=== PATIENT | female | born 1945 | race Caucasian/White ===

== ENCOUNTER 2017-07-17 16:49 | Emergency (ER) | payer MEDICAID, SELFPAY ==
[2017-07-17 16:51] VITALS: BP 166/99; PULSE 111; RESP 26; TEMP 36.4; BMI 30.1
[2017-07-17 16:59] VITALS: BP 108/84; PULSE 104; RESP 23; O2SAT 95
--- NOTE | 2017-07-17 16:59 | EKG12_ITS ---
Test Reason : SOB Blood Pressure : / mmHG Vent. Rate : 103 BPM Atrial Rate : 103 BPM P-R Int : 166 ms QRS Dur : 080 ms QT Int : 350 ms P-R-T Axes : 046 026 062 degrees QTc Int : 458 ms Sinus tachycardia Nonspecific ST abnormality Abnormal ECG Confirmed by JOÃO IVEY, ANGIE ([id number]), managing editor MACKENZIE TORRES ([id number]) on 07/19/2017 1:38:25 PM Referred By: JOVON Confirmed By:ANGIE MOYER MD
[2017-07-17 17:00] VITALS: O2SAT 94
--- NOTE | 2017-07-17 17:01 | ED.VISSUMM ---
- ER Visit Summary Date of Service: 07/17/17 Chief Complaint: it's my CHF History of Present Illness: The patient is a 72 F presenting with 3 days of gradually increased lower extremity edema bilaterally as well as mild cough productive of clear sputum and orthopnea. She wears 2-3 L of continuous nasal cannula oxygen at baseline and smokes 1-2 packs of cigarettes daily. She has a history of COPD and believes that she is having a COPD flare. Denies chest pain or exertional dyspnea. Denies lateralizing lower extremity discomfort. Physical Examination: Vitals are within normal limits. She is not in distress. Neck is supple. Heart tones are regular and without murmur. Lungs are clear bilaterally. Abdomen is soft and nontender. 2+ lower extremity symmetric edema. No tenderness along lower extremity venous system. Strong pulses in all extremities. Test Results: CBC and BMP are unremarkable. Troponin negative. Beta natruretic peptide not elevated. EKG unremarkable. Chest x-ray reveals stable chronic findings. Emergency Department Course and Treatment: No evidence of significant acute CHF exacerbation. She has been coughing clear sputum and states that she is wheezing occasionally at home as well. She is concerned that she is having a COPD exacerbation. She would like to be treated with antibiotics and steroids. I do not feel she needs an adjustment of her cardiac medications at this time but I do think she should follow-up with her tax map technician as an outpatient. She will also follow-up with her family physician and return here if worse. Her pulse ox here is stable at 98% on 2 L which is her baseline oxygen amount. She is not dyspneic with ambulation. Treatment Plan: Steroids and doxycycline. Follow-up. Disposition: Home stable condition Impression: Initial encounter COPD exacerbation This note was generated with [employer] dictation software. It may contain incorrect words, spelling, and punctuation that were not noted in review of the chart prior to signing ED Disposition - Plan for ED Patient: Chief Complaint: Shortness of Breath Instructions: ED COPD Flare Prescriptions: Prednisone [Deltasone] 40 mg PO DAILY #10 tablet Doxycycline 100 mg PO BID 7 Days #14 capsule Referrals: Darleen Craig MD [Primary Care Provider] -
--- NOTE | 2017-07-17 17:20 | RAD_ITS ---
XR Chest 2 Views INDICATION: PT C/O INCREASED SOB AND KAY LEG SWELLING. PT IS NORMALLY ON 2-3L NC. CAME IN WITHOUT OXYGEN ON BECAUSE SHE STATED SHE DOESN'T HAVE A PORTABLE TANK. COMPARISON: December 17, 2016 TECHNIQUE: 2 views of the chest FINDINGS: Borja size and pulmonary vascularity are within normal limits. Lungs are hyperinflated with coarsened interstitial markings compatible with COPD. Interstitial markings at the lung bases are increased, similar compared to the prior study. There is no new focal infiltrate. No evidence of pleural effusion. Osseous structures are osteopenic. RAD/Chest PA and Lateral IMPRESSION: Stable examination with COPD/emphysema. Stable increased interstitial markings at the lung bases, no new infiltrate. at 1742 Reported and signed by: Lori Sullivan MD Electronically Signed: Lori Sullivan MD at 17:40 EDT Tel , Service support ,
[2017-07-17 17:32] LABS: Absolute Lymphocyte Count 1.76 X10^3/ul (0.83-4.51); Absolute Neutrophil Count 7.6 X10^3/uL (2.0-7.7); Basophil# 0.01 X10^3/uL; Basophil% 0.1 % (0-1); Hematocrit 39.4 % (37-47); Hemoglobin 12.5 g/dl (12.0-15.0); Lymphocyte # 1.76 X10^3/ul (4.0); Lymphocyte % 17.3 % (19-41); Mean Corp Hgb Conc 31.7 g/gl (32-36); Mean Corpuscular Hgb 29.4 pg (27.0-32.0); Mean Corpuscular Volume 92.7 fL (81-99); Mean Platelet Vol. 9.9 fl (6.2-12.0); Monocyte# 0.55 X10^3/uL; Monocyte% 5.4 % (0-10); Neutrophil # 7.61 X10^3/uL (2.7-7.7); Neutrophil % 74.9 % (47-70); Platelet Count 249 K/mm3 (150-450); RBC Distribution Width CV 14.2 % (11.6-14.6); RBC Distribution Width SD 47.9 fl (35.1-43.9); Red Blood Count 4.25 M/mm3 (4.2-5.4); White Blood Count 10.2 K/mm3 (4.4-11.0)
[2017-07-17] MEDS: Aspirin 81 MG TAB.CHEW 324 MG PO (17:32)
[2017-07-17 17:33] VITALS: O2SAT 98
[2017-07-17 17:34] LABS: POSITIVE COUNT NO; POSITIVE DIFFERENTIAL NO; POSITIVE MORPHOLOGY NO
[2017-07-17 17:47] LABS: Anion Gap 5 (5-15); BUN 12 mg/dL (7-18); BUN/Creat Ratio 16.4 RATIO (10-20); Calcium,Total 8.3 mg/dL (8.5-10.1); Chloride 105 mmol/L (98-107); Creatinine, Serum 0.73 mg/dL (0.55-1.02); EST Glomerular Filtration Rate 83 mL/min (>60); Est Glom Filt Rate - Afr Amer 101 mL/min (>60); Estimated Creatinine Clearance 40.22 ml/min; Glucose 99 mg/dL (74-106); Potassium 3.9 mmol/L (3.5-5.1); Sodium Level 139 mmol/L (136-145)
[2017-07-17 18:06] LABS: BNP,B-Type NATRIURETIC PEPTIDE 36.9 pg/mL (0-100)
[2017-07-17 18:24] VITALS: BP 141/72; PULSE 96; RESP 18; O2SAT 97
[2017-07-17] MEDS: predniSONE 20 MG Tablet 60 MG PO (18:25)
[2017-07-17] MEDS: Doxycycline 100 MG CAPSULE PO (18:26)
== END 2017-07-17 18:39 | disposition home or self-care (01) ==
LOC: ED 18:33
PROVIDERS: Emergency Provider Emergency Medicine; Family Provider Internal Medicine; PCP Internal Medicine
DX: J44.1 Chronic obstructive pulmonary disease with (acute) exacerbation (principal); F17.210 Nicotine dependence, cigarettes, uncomplicated; Z99.81 Dependence on supplemental oxygen; I25.10 Atherosclerotic heart disease of native coronary artery without angina pectoris; I11.0 Hypertensive heart disease with heart failure; I50.9 Heart failure, unspecified
CPT/HCPCS: 71046; 80048; 83880; 84484; 85025; 93005; 99285; A4216

== ENCOUNTER 2017-11-09 03:14 | Inpatient (IN) | payer MEDICAID, SELFPAY ==
[2017-11-09] VITALS (36 sets, daily range): BP systolic 64–147; BP diastolic 31–88; PULSE 73–109; RESP 14–38; TEMP 35.5–36.7; O2SAT 91–99; BMI 28.8; BMI 27.8; BMI 27.9
--- NOTE | 2017-11-09 03:22 | ED.RN ---
BREATHING TREATMENT IN PROGRESS. BIPAP BEING SET UP
--- NOTE | 2017-11-09 03:35 | EKG12_ITS ---
Test Reason : REPEAT Blood Pressure : / mmHG Vent. Rate : 086 BPM Atrial Rate : 086 BPM P-R Int : 176 ms QRS Dur : 090 ms QT Int : 376 ms P-R-T Axes : 070 -17 078 degrees QTc Int : 449 ms Normal sinus rhythm Anterolateral infarct , age undetermined Abnormal ECG Confirmed by VY JEFFERSON ([id number]), purchasing expeditor MACKENZIE TORRES ([id number]) on 11/12/2017 2:19:27 PM Referred By: Confirmed By:VY JEFFERSON
--- NOTE | 2017-11-09 03:40 | RAD_ITS ---
STUDY: X-RAY CHEST REASON FOR EXAM: Female, 72 years old. SOB and chest pain TECHNIQUE: Single frontal view of the chest. COMPARISON: 07/17/2017 FINDINGS: 2 mm stone in the distal left ureter at the level of the ureterovesical junction with changes of moderate acute obstructive uropathy. There is no demonstrated pleural abnormality. Normal size heart. Normal mediastinum and danielle. Normal visualized pulmonary arteries. Normal visualized aortic arch and descending thoracic aorta. Normal visualized thoracic spine. Normal visualized ribs, clavicles, and shoulders. There is no demonstrated abnormality of the visualized soft tissue structures of the upper abdomen. RAD/Chest 1 View (Portable) IMPRESSION: 2 mm stone in the distal left ureter at the level of the ureterovesical junction with changes of moderate acute obstructive uropathy. Electronically Signed: Gio Garg MD at 4:26 EDT Tel , Service support ,
--- NOTE | 2017-11-09 03:42 | CPS ---
Addendum entered by Ioana Dias 11/09/17 04:06: Original Note: started to give pt albuterol tx thru bipap and pt states allergic to albuterol-tx was not given
[2017-11-09 03:51] LABS: Absolute Lymphocyte Count 4.49 X10^3/ul (0.83-4.51); Absolute Neutrophil Count 12.1 X10^3/uL (2.0-7.7); Basophil# 0.08 X10^3/uL; Basophil% 0.4 % (0-1); Eosinophil# 0.22 X10^3/uL; Eosinophils% 1.2 % (0-5); Hemoglobin 15.9 g/dl (12.0-15.0); Lymphocyte # 4.49 X10^3/ul (4.0); Mean Corp Hgb Conc 33.1 g/gl (32-36); Mean Corpuscular Hgb 30.1 pg (27.0-32.0); Mean Corpuscular Volume 90.9 fL (81-99); Mean Platelet Vol. 10.7 fl (6.2-12.0); Monocyte# 1.02 X10^3/uL; Monocyte% 5.7 % (0-10); Neutrophil # 12.08 X10^3/uL (2.7-7.7); Neutrophil % 67.2 % (47-70); Platelet Count 402 K/mm3 (150-450); RBC Distribution Width CV 14.3 % (11.6-14.6); RBC Distribution Width SD 46.8 fl (35.1-43.9); Red Blood Count 5.28 M/mm3 (4.2-5.4)
[2017-11-09 04:00] LABS: Differential Indicated SCAN CRITERIA MET; POSITIVE COUNT NO; POSITIVE DIFFERENTIAL NO; POSITIVE MORPHOLOGY YES
[2017-11-09 04:03] LABS: Anion Gap 14 (5-15); BUN 22 mg/dL (7-18); BUN/Creat Ratio 16.3 RATIO (10-20); Calcium,Total 8.6 mg/dL (8.5-10.1); Chloride 106 mmol/L (98-107); Creatinine, Serum 1.35 mg/dL (0.55-1.02); EST Glomerular Filtration Rate 41 mL/min (>60); Est Glom Filt Rate - Afr Amer 50 mL/min (>60); Estimated Creatinine Clearance 29.79 ml/min; Glucose 297 mg/dL (74-106); Potassium 4.6 mmol/L (3.5-5.1); Sodium Level 142 mmol/L (136-145)
--- NOTE | 2017-11-09 04:03 | EKG12_ITS ---
Test Reason : CP Blood Pressure : / mmHG Vent. Rate : 094 BPM Atrial Rate : 094 BPM P-R Int : 174 ms QRS Dur : 084 ms QT Int : 356 ms P-R-T Axes : 073 -14 097 degrees QTc Int : 445 ms Normal sinus rhythm Low voltage QRS Possible Anterolateral infarct , age undetermined Abnormal ECG Confirmed by VY JEFFERSON ([id number]), news copy editor MACKENZIE TORRES ([id number]) on 11/12/2017 2:20:15 PM Referred By: DR REDD Confirmed By:VY JEFFERSON
[2017-11-09] MEDS: MethylPREDNISolone 125 MG/2 ML Vial IV (04:16)
[2017-11-09] MEDS: Enoxaparin 80 MG/0.8 ML Syringe 70 MG SC ×3 (04:17→21:06)
[2017-11-09] MEDS: Furosemide 40 MG/4 ML Vial IV ×3 (04:17→18:40)
[2017-11-09 04:19] LABS: Differential Comment SCANNED
--- NOTE | 2017-11-09 04:21 | ED.RN ---
dr velazquez notified of troponin results
--- NOTE | 2017-11-09 04:28 | ED.VISSUMM ---
- ER Visit Summary Date of Service: 11/09/17 Chief Complaint: Shortness of breath, chest pain History of Present Illness: The patient is a 72 F presenting with shortness of breath, chest pain. Patient states she awoke from sleep with severe shortness of breath and diffuse chest pain. She took 2 nitro. EMS was called. She was put on nonrebreather mask per EMS and given aspirin. EKG per EMS showed artifact and concern for anterolateral changes. Patient had an NH in December 2016. She states her pain feels similar. On arrival she has difficulty speaking secondary to respiratory distress. Physical Examination: Vitals are stable. Patient is afebrile. Alert moderate distress. HEENT exam is unremarkable. Neck is supple. Lungs are wheezing bilaterally. Tachypnea, retractions. Heart is regular rate and rhythm. Abdomen is soft nontender nondistended. Extremities are unremarkable. Skin is warm and dry. No focal neurologic deficit. Remainder of exam is unremarkable. Emergency Department Course and Treatment: Patient is given DuoNeb on arrival. She is started on noninvasive ventilation. She has much improvement of her breathing. She states her chest pain is now much improved also. Initial EKG shows sinus rhythm rate of 94 changed from previous, poor R-wave progression, lateral T-wave inversion, minimal ST elevation, no reciprocal changes. CBC showed a white count of 18.0. Chemistry showed glucose 297, BUN 22, creatinine 1.35. Troponin is 1.35. Chest x-ray shows chronic interstitial lung changes without superimposed acute alveolar disease. Patient was discussed with Dr. Burns. EKG was faxed to Dr. Burns. She was started on nitro drip, given Lovenox, Solu-Medrol IV, Lasix IV. She is improved on re-evaluation. Her breathing has improved. Her chest pain is resolved. Discussed with the hospitalist for admission to the ICU. Disposition: Admission Impression: Respiratory distress, COPD exacerbation, recent NH This note was generated with [employer] dictation software. It may contain incorrect words, spelling, and punctuation that were not noted in review of the chart prior to signing ED Disposition - Plan for ED Patient: Chief Complaint: Chest Pain Referrals: Darleen Craig MD [Primary Care Provider] -
--- NOTE | 2017-11-09 05:13 | PCM.HP.STD ---
Problem List (1) NSTEMI (non-ST elevated myocardial infarction) Status: Acute (2) COPD exacerbation Status: Acute (3) CAD (coronary artery disease) Status: Acute (4) Tobacco abuse Status: Acute (5) Nonrheumatic tricuspid (valve) insufficiency Status: Chronic (6) Nonrheumatic mitral valve insufficiency Status: Chronic (7) Hypertension Status: Chronic Qualifiers: (8) Hyperlipidemia Status: Chronic Qualifiers: (9) Peripheral vascular disease Status: Chronic (10) SOB (shortness of breath) Status: Chronic History of Present Illness Date of Admission: 11/09/17 Chief Complaint: Chest pain The patient is a 72 year old female w/ h/o CAD s/p left main stenting in 2014, hypertension, and hyperlipidemia admitted for chest pain. She had a heart catheterization in Dec 2016 which showed diffuse disease in her LAD and RCA but with no obvious obstructive high-grade coronary stenosis and a patent left main stent and an echocardiogram from December 2016 showed an ejection fraction 55%, mild mitral valve insufficiency, and mild to moderate tricuspid valve insufficiency. She woke up at 2AM with chest pain and SOB. Chest pain was severe. Chest pain was sudden. Pain was pressure and crushing, substernal. She took 2 nitro and wanted to get into the car. The pain was so severe that she was unable to get into the car. EMS was called. Nothing made the pain better or worse. She had similar pain in December 2016 when she had the heart cath. EKG on the field disclosed anterolateral changes. Her pain improved with nitro. Past Medical History Past Medical History (Chronic Problems): Chronic Problems (Last Reviewed 11/09/17 @ 05:19 by Lokesh Sethi MD) Nonrheumatic tricuspid (valve) insufficiency (Chronic) Nonrheumatic mitral valve insufficiency (Chronic) Nicotine dependence, cigarettes, uncomplicated (Chronic) Hypertension (Chronic) Hyperlipidemia (Chronic) Atherosclerosis of [place] coronary artery of [place] heart without angina pectoris (Chronic) PTCA/SUSAN to ostium of LMT 10/01/2014 @[facility]; Peripheral vascular disease (Chronic) SOB (shortness of breath) (Chronic) Medical History: Medical History (Last Reviewed 11/09/17 @ 05:19 by Lokesh Sethi MD) Nonrheumatic tricuspid (valve) insufficiency (Chronic) I36.1 Nonrheumatic mitral valve insufficiency (Chronic) I34.0 Nicotine dependence, cigarettes, uncomplicated (Chronic) F17.210 Hypertension (Chronic) I10 Hyperlipidemia (Chronic) E78.5 Atherosclerosis of [place] coronary artery of [place] heart without angina pectoris (Chronic) I25.10 PTCA/SUSAN to ostium of LMT 10/01/2014 @[facility]; Peripheral vascular disease (Chronic) I73.9 SOB (shortness of breath) (Chronic) R06.02 Anemia D64.9 COPD (chronic obstructive pulmonary disease) J44.9 Diabetes mellitus E11.9 Fibromyalgia M79.7 GERD (gastroesophageal reflux disease) K21.9 Hyperlipidemia E78.5 MARISABEL (obstructive sleep apnea) G47.33 Allergies codeine Allergy (Unknown, Verified 11/09/17 03:33) Unknown fentanyl Allergy (Unknown, Verified 11/09/17 03:33) Unknown lithium Allergy (Unknown, Verified 11/09/17 03:33) Unknown morphine Allergy (Unknown, Verified 11/09/17 03:33) Unknown naproxen [From Naprosyn] Allergy (Unknown, Verified 11/09/17 03:33) Unknown phenobarbital Allergy (Unknown, Verified 11/09/17 03:33) Unknown Sulfa (Sulfonamide Antibiotics) Allergy (Unknown, Verified 11/09/17 03:33) Unknown albuterol Allergy (Verified 11/09/17 03:33) Rash Iodine and Iodide Containing Produc Adverse Reaction (Verified 11/09/17 03:33) Unknown Penicillins [PCN] Adverse Reaction (Verified 11/09/17 03:33) Unknown Home Medications: Ambulatory Orders Medication Instructions Recorded Amlodipine [Norvasc] 5 mg PO DAILY 07/13/14 Aspirin 325 mg PO DAILY@0800 07/13/14 Atorvastatin Calcium [Lipitor] 40 mg PO QHS 07/13/14 Bupropion HCl [Bupropion Xl] 150 mg PO DAILY 07/13/14 Buspirone HCl 15 mg PO DAILY 07/13/14 Cyclobenzaprine [Flexeril] 10 mg PO DAILY 07/13/14 Fenofibrate [Tricor] 145 mg PO DAILY 07/13/14 Gabapentin [Neurontin] 300 mg PO BIDCM 07/13/14 Ipratropium/Albuterol Sulfate 2 puff INHALATION 4X/DAY 07/13/14 Omeprazole [Prilosec] 20 mg PO DAILY 07/13/14 Tiotropium [place] [Spiriva 18 MCG] 1 puff INHALATION DAILY 07/13/14 Vitamin D 50,000 units PO WE 07/13/14 Fluticasone/Vilanterol [Breo 1 ea IH DAILY 12/17/16 Ellipta 200-25 Mcg INH] Ipratropium [Atrovent Inhaler] 2 puff INHALATION 4X/DAY 12/17/16 Paroxetine HCl [Paxil] 40 mg PO DAILY 12/17/16 diphenhydramine 25 mg tablet 25 mg PO Q6H PRN 03/20/17 nitroglycerin 0.4 mg sublingual 0.4 mg SUBLINGUAL Q5M PRN #25 tab 03/25/17 tablet ranolazine ER 500 mg 500 mg PO BID #180 tab 03/25/17 tablet,extended release,12 hr isosorbide mononitrate ER 120 mg 120 mg PO QDAY #90 tab 10/17/17 tablet,extended release 24 hr losartan 50 mg tablet 50 mg PO DAILY #90 tab 10/17/17 metoprolol tartrate 25 mg tablet 25 mg PO BID #180 tab 10/17/17 clopidogrel 75 mg tablet 75 mg PO DAILY #90 tab 10/23/17 Surgical History: Surgical History (Last Reviewed 11/09/17 @ 05:19 by Lokesh Sethi MD) H/O tubal ligation Z98.51 History of left heart catheterization Z98.890 Hx of appendectomy Z98.890, Z90.49 S/P femoral-femoral bypass surgery Z95.828 with gorortex graft in 2001; removal of infected graft with reconstructions of right superficial artery in 2002 Surgical History: appendectomy, - - cad with stent Psychiatric History: No pertinent psych hx [employer] History: No pertinent [employer] history Smoking Status: Current every day smoker - *Family History Maternal Family History: Family History (Last Reviewed 11/09/17 @ 05:19 by Lokesh Sethi MD) Mother CAD (coronary artery disease) Hypertension Sister CAD (coronary artery disease) Myocardial infarction History Items: Diabetes, Heart Disease, Stroke Paternal Family History: Family History (Last Reviewed 11/09/17 @ 05:19 by Lokesh Sethi MD) Mother CAD (coronary artery disease) Hypertension Sister CAD (coronary artery disease) Myocardial infarction History Items: Diabetes, Stroke Review of Systems Constitutional: Denies: Chills, Fever, Weight Change HEENT: Denies: Head Aches, Sinus Congestion, Sinus Drainage Cardiovascular: Reports: Chest Pain, Chest Pressure. Denies: Palpitations Respiratory: Denies: Cough, Shortness of breath at rest, Sputum production Gastrointestinal: Denies: Abdominal Pain, Nausea, Vomiting Genitourinary: Denies: Dysuria Musculoskeletal: Denies: Joint Pain, Joint Tenderness Skin: Denies: Rash, Wounds Neurological: Denies: Numbness, Tingling, Focal weakness Psychiatric: Denies: Anxiety, Depression, Homicidal Ideations, Suicidal Ideations Hematologic/ Lymphatic: Denies: Easy Bruising, Easy Bleeding VTE Information - Inpt Only VTE Present on Admission: No VTE Mechan Device Prophylaxis: SCD's VTE Pharm Prophylaxis ordered?: Yes Patient Problems: Active and Suspected Problems (Last Reviewed 11/09/17 @ 05:19 by Lokesh Sethi MD) NSTEMI (non-ST elevated myocardial infarction) (Acute) COPD exacerbation (Acute) CAD (coronary artery disease) (Acute) Tobacco abuse (Acute) - Physical Exam General: Alert, Oriented x3, Cooperative HEENT: Atraumatic, PERRLA, EOMI, Normocephalic Neck: Supple, No JVD, Negative Carotid Bruits Lungs: Clear to auscultation, Normal air movement Cardiovascular: Regular rate, No murmurs Abdomen: Bowel Sounds Present, Soft, Non Tender Extremities: No edema, Capillary Refill Less than 3 Seconds Skin: No rashes, No breakdown Musculoskeletal: No Tenderness to Palpation of Joints or Extremities Neurological: Cranial nerves II-XII grossly intact Psych/Mental Status: Normal Affect, Appropriate Vital Signs Temp Pulse Resp BP Pulse Ox 96.3 F L 81 32 H 100/62 98 11/09/17 03:15 11/09/17 04:41 11/09/17 04:41 11/09/17 04:41 11/09/17 04:41 Oxygen Flow Rate (L/min) 15 Oxygen Delivery Method Bi-pap Weight: 71.4 kg Body Mass Index (BMI) 28.8 Laboratory Tests Past 24 Hrs 11/09/17 11/09/17 03:23 03:23 WBC 18.0 H RBC 5.28 Hgb 15.9 H Hct 48.0 H MCV 90.9 MCH 30.1 MCHC 33.1 RDW 14.3 RDW Differential 46.8 H Plt Count 402 MPV 10.7 Immature Gran % (Auto) 0.500 Neut % (Auto) 67.2 Lymph % (Auto) 25.0 [place] % (Auto) 5.7 Eos % (Auto) 1.2 Baso % (Auto) 0.4 Absolute Neuts (auto) 12.1 H Absolute Lymphs (auto) 4.49 Total Counted Not Reportable Differential Comment SCANNED Sodium 142 Potassium 4.6 Chloride 106 Carbon Dioxide 22.0 Anion Gap 14 BUN 22 H Creatinine 1.35 H Estim Creat Clear Calc 29.79 Est GFR (MDRD) Af Amer 50 L Est GFR (MDRD) Non-Af 41 L BUN/Creatinine Ratio 16.3 Glucose 297 H Calcium 8.6 Troponin I 1.350 H* Assessment/Plan All Active Problems (Last Reviewed 11/09/17 @ 05:19 by Lokesh Sethi MD) NSTEMI (non-ST elevated myocardial infarction) (Acute) COPD exacerbation (Acute) CAD (coronary artery disease) (Acute) Tobacco abuse (Acute) 72 year old female w/ h/o CAD s/p left main stenting in 2014, hypertension, and hyperlipidemia admitted for chest pain. 1) NSTEMI: EKG disclosed lateral T-wave inversion, minimal ST elevation in the lateral lead but no reciprocal changes. Trop 1.35 Chest pain improved. Cards carded from the ED and recommended nitro gtt and lovenox. Pt has allergy to morphine. Will resume home meds. Pt is max on medical management. Serial trops. ECHO in AM. 2) ALIVIA with superimposed CKD: Baseline Cr 0.7 Cr 1.3. Hydration. Supportive care. 3) Acute hypoxic respiratory failure secondary to COPD exacerbation: C/w bipap. Will start solumedrol and azithromycin. Allergy to duoneb and ceftriaxone. Cultures pending. 4) Tobacco abuse: Education done. 5) Prophylaxis: SCD / lovenox.
[2017-11-09 07:04] LABS: ALB/GLOB Ratio 0.8 RATIO (0.9-2.4); AST(SGOT) 21 U/L (15-37); Alanine Aminotransfer ALT/SGPT 21 U/L (13-56); Albumin, Serum 3.5 g/dL (3.2-5.0); Alkaline Phosphatase 96 U/L (45-117); Anion Gap 11 (5-15); BUN 23 mg/dL (7-18); BUN/Creat Ratio 18.1 RATIO (10-20); Bilirubin, Direct < 0.05 mg/dL (0.00-0.30); Calcium,Total 8.5 mg/dL (8.5-10.1); Chloride 108 mmol/L (98-107); Cholesterol 259 mg/dL (200); Creatinine, Serum 1.27 mg/dL (0.55-1.02); EST Glomerular Filtration Rate 44 mL/min (>60); Est Glom Filt Rate - Afr Amer 53 mL/min (>60); Estimated Creatinine Clearance 31.67 ml/min; Globulin 4.5 g/dL (2.2-4.2); Glucose 103 mg/dL (74-106); High Density Lipoprotein 39 mg/dL; Potassium 3.9 mmol/L (3.5-5.1); Sodium Level 141 mmol/L (136-145); Thyroid Stim Hormone (TSH) 4.84 uIU/mL (0.358-3.74); Triglycerides 219 mg/dL; Very Low Density Lipoprotein 44 mg/dL (5-40)
--- NOTE | 2017-11-09 07:45 | PCM.HOSP.N ---
Hospitalist Note 72 year old female w/ h/o CAD s/p left main stenting in 2015, hypertension, and hyperlipidemia admitted for chest pain. Seen ad examined with Dr. Burns 1) NSTEMI: EKG disclosed lateral T-wave inversion, minimal ST elevation in the lateral lead but no reciprocal changes. Trop 1.35 Chest pain improved. Card consulted and recommended nitro gtt and lovenox. Pt has allergy to morphine. Optimized on medical management. trips eevated in NSTEMI range ECHO done 2) ALIVIA with superimposed CKD: Baseline Cr 0.7 Cr 1.3. on IV fluid 3) Acute hypoxic respiratory failure secondary to COPD exacerbation: C/w bipap. ABG reviewed. First was venous 7.31, mixed PCO2 52 ON [place] 40% fio2, 8/4 and then 7.34, PCO2 35, PO2 83 ON 4 L O2, NC after 4 hrs. It seems pt is mild CO2 retainer and Co2 washed out after Bipap. Allergy to duoneb and ceftriaxone. Cultures pending. 4) Tobacco abuse: Education done. 5) Prophylaxis: SCD / lovenox. Laboratory Results 11/09/17 03:23: WBC 18.0 H, RBC 5.28, Hgb 15.9 H, Hct 48.0 H, MCV 90.9, MCH 30.1, MCHC 33.1, RDW 14.3, RDW Differential 46.8 H, Plt Count 402, MPV 10.7, Immature Gran % (Auto) 0.500, Neut % (Auto) 67.2, Lymph % (Auto) 25.0, [place] % (Auto) 5.7, Eos % (Auto) 1.2, Baso % (Auto) 0.4, Absolute Neuts (auto) 12.1 H, Absolute Lymphs (auto) 4.49, Total Counted Not Reportable, Differential Comment SCANNED 11/09/17 03:23: Sodium 142, Potassium 4.6, Chloride 106, Carbon Dioxide 22.0, Anion Gap 14, BUN 22 H, Creatinine 1.35 H, Estim Creat Clear Calc 29.79, Est GFR (MDRD) Af Amer 50 L, Est GFR (MDRD) Non-Af 41 L, BUN/Creatinine Ratio 16.3, Glucose 297 H, Calcium 8.6, Troponin I 1.350 H* 11/09/17 06:26: B-Natriuretic Peptide Pending 11/09/17 06:26: Sodium 141, Potassium 3.9, Chloride 108 H, Carbon Dioxide 22.0, Anion Gap 11, BUN 23 H, Creatinine 1.27 H, Estim Creat Clear Calc 31.67, Est GFR (MDRD) Af Amer 53 L, Est GFR (MDRD) Non-Af 44 L, BUN/Creatinine Ratio 18.1, Glucose 103, Calcium 8.5, Total Bilirubin 0.20, Direct Bilirubin < 0.05, AST 21, ALT 21, Alkaline Phosphatase 96, Total Protein 8.0, Albumin 3.5, Globulin 4.5 H, Albumin/Globulin Ratio 0.8 L, Triglycerides 219 H, Cholesterol 259 H, LDL Cholesterol 176 H, VLDL Cholesterol 44 H, HDL Cholesterol 39 L, TSH 4.84 H 11/09/17 06:26: Troponin I 0.902 H* Active Medications Albuterol/Ipratropium (Duoneb) 3 ml INHALATION Q6HWA.RT NAIF Amlodipine Besylate (Norvasc) 5 mg PO DAILY NAIF Aspirin (Aspirin) 325 mg PO DAILY@0800 NAIF Atorvastatin Calcium (Lipitor) 40 mg PO QHS NAIF Bupropion HCl (Wellbutrin Xl) 150 mg PO DAILY NAIF Buspirone HCl (Buspar) 15 mg PO DAILY NAIF Clopidogrel Bisulfate (Plavix) 75 mg PO DAILY NAIF Cyclobenzaprine HCl (Flexeril) 10 mg PO DAILY NAIF Diphenhydramine HCl (Benadryl) 25 mg PO Q6H PRN PRN PRN Reason: ITCHING Enoxaparin Sodium (Lovenox) 70 mg 1 mg/kg (70 mg) SC Q12 NAIF Ergocalciferol (Vitamin D) 50,000 unit PO WE NAIF Fenofibrate (Tricor) 145 mg PO DAILY NAIF Gabapentin (Neurontin) 300 mg PO BIDCM NAIF Nitroglycerin/Dextrose 25 mg/ (N/A) 250 mls @ 3 mls/hr IV .[id number] NAIF PRN Reason: 5 MCG/MIN Last Admin: 11/09/17 04:17 Dose: 3 mls/hr Sodium Chloride () 250 mls @ 15 mls/hr IV .[id number] PRN PRN Reason: SALINE FLUSH Nitroglycerin/Dextrose () 250 mls @ 3 mls/hr IV .[id number] NAIF; 5 MCG/MIN PRN Reason: Protocol Azithromycin 500 mg/ Dextrose 255 mls @ 250 mls/hr IV Q24 NAIF Stop: 11/11/17 11:02 Isosorbide Mononitrate (Imdur) 120 mg PO DAILY [facility] Losartan Potassium (Cozaar) 50 mg PO DAILY [facility] Methylprednisolone (Solu-Medrol) 40 mg IV Q8 NAIF Stop: 11/10/17 14:01 Metoprolol Tartrate (Lopressor (Beta Tata)) 25 mg PO BID [facility] Nitroglycerin (Nitrostat) 0.4 mg SUBLINGUAL Q5M PRN PRN Reason: Chest Pain Pantoprazole Sodium (Protonix) 20 mg PO DAILY [facility] Paroxetine HCl (Paxil) 40 mg PO DAILY [facility] Prednisone () 20 mg PO DAILY@0800 [facility] Ranolazine (Ranexa) 500 mg PO BID [facility] Sodium Chloride () 5 - 30 ml IV UD PRN PRN Reason: SALINE FLUSH
[2017-11-09 07:56] LABS: Blood Gas Specimen Type VEN; EPAP 4; FI02 40; IPAP 8; RR 14; SITE L Brachial; Time Given 740; VBG BASE EXCESS 0 mmol/L (-1.0-3.5); VBG Bicarbonate 26 mmol/L (22-26); VBG Oxygen Content 28 mmol/L (23-33); VBG PO2 30 mmHg (25-40); VBG SO2 51 % (50-70); VBG pCO2 52.2 mmHg (41-51); VBG pH 7.31 (7.32-7.42)
[2017-11-09 08:18] LABS: BNP,B-Type NATRIURETIC PEPTIDE 526.4 pg/mL (0-100)
--- NOTE | 2017-11-09 09:04 | PCM.CONS.C ---
Problem List (1) Congestive heart failure Status: Acute (2) NSTEMI (non-ST elevated myocardial infarction) Status: Acute (3) CAD (coronary artery disease) Status: Acute (4) Tobacco abuse Status: Acute (5) Hypertension Status: Chronic Qualifiers: (6) Hyperlipidemia Status: Chronic Qualifiers: (7) Atherosclerosis of [place] coronary artery of [place] heart without angina pectoris Status: Chronic Comment: PTCA/SUSAN to ostium of LMT 10/01/2014 @[facility]; Reason for Consult Date of Consultation: 11/09/17 Reason for Consultation: Chest pain, shortness of breath, non-STEMI, coronary artery disease, LV dysfunction, tobacco abuse, hypertension, hypercholesterolemia History of Present Illness: The patient is a 72 year old diabetic f patient of Dr. Rodrigues's, with a history of tobacco abuse, currently smoking in between her O2 therapy, chronic O2 therapy for COPD on 2 L nasal cannula at home, coronary artery disease status post angioplasty and stenting of the ostial portion of her left main around July 2014, followed by relook catheterization by Dr. Huggins on 12/18/16. This demonstrated widely patent left main stent, nonobstructive disease of her LAD, proximal left circumflex disease of 50%, ostial OM #1 of about 75%, and diffuse 60% disease in her proximal mid and distal right coronary artery. Her EF at that time was found to be normal. Patient last seen Dr. Rodrigues about 5 months ago and apparently was doing fairly well. Patient has been moving out of her home into another location, and was quite active yesterday. At around 4:00 this morning the patient awoke with severe worsening shortness of breath, wheezing, chest pain which she describes a 4 out of 10. EMS was called to her home, and multiple EKGs showed significant artifact, with difficult interpretation. Upon arrival to the emergency room an EKG after nebulizer therapy showed normal sinus rhythm with loss of R-wave forces of the anterior wall with evidence of anterolateral J-point elevation and ST segment rounding. Her chest pain was treated with nitroglycerin and completely resolved. Patient was placed on BiPAP therapy given IV diuretic therapy and nitroglycerin and stabilized. Her initial troponin was 1.35, now 0.92. Previous EKG in July 2017 showed normal sinus rhythm with excellent R-wave progression. Urgent bedside echo this morning shows akinetic anterior wall consistent with previous anterior wall myocardial infarction, which appears to be new from her catheterization in 2017. At that time her EF was normal. Overall ejection fraction is about 10-15%. Final results are pending. Currently the patient is on BiPAP therapy, and is awake, alert, answers questions appropriately. Her saturations are appropriate. I reviewed her chest x-ray which demonstrates chronic interstitial changes, significant COPD with bilateral apical blebs, and evidence of pulmonary vascular redistribution consistent with congestive heart failure. Patient denies any chest pain at this time. On further history the patient states that she has not been able to lay down flat due to shortness of breath for quite some time. She denies any recent chest pain or anginal symptoms over the summertime. She reports she has been compliant with her medications and continues on aspirin and Plavix. Past Medical History Allergies/Adverse Reactions: Allergies codeine Allergy (Unknown, Verified 11/09/17 03:33) Unknown fentanyl Allergy (Unknown, Verified 11/09/17 03:33) Unknown lithium Allergy (Unknown, Verified 11/09/17 03:33) Unknown morphine Allergy (Unknown, Verified 11/09/17 03:33) Unknown naproxen [From Naprosyn] Allergy (Unknown, Verified 11/09/17 03:33) Unknown phenobarbital Allergy (Unknown, Verified 11/09/17 03:33) Unknown Sulfa (Sulfonamide Antibiotics) Allergy (Unknown, Verified 11/09/17 03:33) Unknown albuterol Allergy (Verified 11/09/17 03:33) Rash Iodine and Iodide Containing Produc Adverse Reaction (Verified 11/09/17 03:33) Unknown Penicillins [PCN] Adverse Reaction (Verified 11/09/17 03:33) Unknown Home Medications: Ambulatory Orders Medication Instructions Recorded Amlodipine [Norvasc] 5 mg PO DAILY 07/13/14 Aspirin 325 mg PO DAILY@0800 07/13/14 Atorvastatin Calcium [Lipitor] 40 mg PO QHS 07/13/14 Bupropion HCl [Bupropion Xl] 150 mg PO DAILY 07/13/14 Buspirone HCl 15 mg PO DAILY 07/13/14 Cyclobenzaprine [Flexeril] 10 mg PO DAILY 07/13/14 Fenofibrate [Tricor] 145 mg PO DAILY 07/13/14 Gabapentin [Neurontin] 300 mg PO BIDCM 07/13/14 Ipratropium/Albuterol Sulfate 2 puff INHALATION 4X/DAY 07/13/14 Omeprazole [Prilosec] 20 mg PO DAILY 07/13/14 Tiotropium [place] [Spiriva 18 MCG] 1 puff INHALATION DAILY 07/13/14 Vitamin D 50,000 units PO WE 07/13/14 Fluticasone/Vilanterol [Breo 1 ea IH DAILY 12/17/16 Ellipta 200-25 Mcg INH] Ipratropium [Atrovent Inhaler] 2 puff INHALATION 4X/DAY 12/17/16 Paroxetine HCl [Paxil] 40 mg PO DAILY 12/17/16 diphenhydramine 25 mg tablet 25 mg PO Q6H PRN 03/20/17 nitroglycerin 0.4 mg sublingual 0.4 mg SUBLINGUAL Q5M PRN #25 tab 03/25/17 tablet ranolazine ER 500 mg 500 mg PO BID #180 tab 03/25/17 tablet,extended release,12 hr isosorbide mononitrate ER 120 mg 120 mg PO QDAY #90 tab 10/17/17 tablet,extended release 24 hr losartan 50 mg tablet 50 mg PO DAILY #90 tab 10/17/17 metoprolol tartrate 25 mg tablet 25 mg PO BID #180 tab 10/17/17 clopidogrel 75 mg tablet 75 mg PO DAILY #90 tab 10/23/17 Past Medical History (Chronic Problems): Chronic Problems (Last Reviewed 11/09/17 @ 05:19 by Lokesh Sethi MD) Nonrheumatic tricuspid (valve) insufficiency (Chronic) Nonrheumatic mitral valve insufficiency (Chronic) Nicotine dependence, cigarettes, uncomplicated (Chronic) Hypertension (Chronic) Hyperlipidemia (Chronic) Atherosclerosis of [place] coronary artery of [place] heart without angina pectoris (Chronic) PTCA/SUSAN to ostium of LMT 10/01/2014 @[facility]; Peripheral vascular disease (Chronic) SOB (shortness of breath) (Chronic) Surgical History: appendectomy, - - cad with stent Psychiatric History: No pertinent psych hx 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 - *Family History Maternal Family History: Family History (Last Reviewed 11/09/17 @ 05:19 by Lokesh Sethi MD) Mother CAD (coronary artery disease) Hypertension Sister CAD (coronary artery disease) Myocardial infarction History Items: Diabetes, Heart Disease, Stroke Paternal Family History: Family History (Last Reviewed 11/09/17 @ 05:19 by Lokesh Sethi MD) Mother CAD (coronary artery disease) Hypertension Sister CAD (coronary artery disease) Myocardial infarction History Items: Diabetes, Stroke Smoking Status: Current every day smoker Review of Systems - Review of Systems General: Denies: Fever, Night Sweats, Fatigue Cardiovascular: Reports: Chest Discomfort, Chest Discomfort at Rest, Shortness of Breath, Shortness of Breath at Rest, Orthopnea, PND. Denies: Peripheral Edema, Palpitations, Lightheadedness, Dizziness, Near Syncope, Syncope Respiratory: Denies: Cough, Sputum Production, Hemoptysis Gastrointestinal: Denies: Hematemesis, Hematochezia, Melena Genitourinary: Denies: Dysuria, Hematuria Skin: Denies: Rash Subjectve: Patient on BiPAP therapy, appropriate respiratory rate. Good O2 sats. No chest pain. Objective: Vital Signs Temp Pulse Resp BP Pulse Ox 96 F L 77 27 H 104/75 97 11/09/17 05:45 11/09/17 07:56 11/09/17 07:56 11/09/17 07:56 11/09/17 07:56 Oxygen Delivery Method Bi-pap Weight: 152 lb 5.431 oz Body Mass Index (BMI) 27.8 Intake and Output for Last 24 Hours 11/07/17 11/08/17 11/09/17 23:59 23:59 23:59 Intake Total 3.8 / 3.8 Balance 3.8 / 3.8 General: Awake, Alert, Oriented x 3 HEENT: PERRL, EOMI, Sclera Non Icteric Neck: Supple, Good ROM, No Lymph Node Enlargement Lungs: Rales - Jaspreet Bases, Inspiratory Wheezes - Jaspreet Cardiovascular: Regular Rhythm, Normal S1, Normal S2, No Murmurs, No Rubs, No Gallops Vascular: No Carotid Bruits, Normal Femoral Pulses, Normal Radial Pulses, Normal Dorsalis Pedal Pulse, Normal Posterior Tibial Pulses Abdomen: Bowel Sounds Present, Soft, Non Tender, No HSM, No Organomegaly Extremities: No Cyanosis, No Clubbing, No edema Neurological: No Focal Motor or Sensory Deficit 11/09/17 06:26: B-Natriuretic Peptide 526.4 H 11/09/17 06:26: Sodium 141, Potassium 3.9, Chloride 108 H, Carbon Dioxide 22.0, Anion Gap 11, BUN 23 H, Creatinine 1.27 H, Est GFR (MDRD) Af Amer 53 L, Est GFR (MDRD) Non-Af 44 L, BUN/Creatinine Ratio 18.1, Glucose 103, Calcium 8.5, Total Bilirubin 0.20, Direct Bilirubin < 0.05, Triglycerides 219 H, Cholesterol 259 H, LDL Cholesterol 176 H, VLDL Cholesterol 44 H, HDL Cholesterol 39 L 11/09/17 06:26: Troponin I 0.902 H* 11/09/17 07:48: VBG pH 7.31 L, VBG pO2 30, VBG O2 Sat (Calc) 51, VBG O2 Content 28, VBG Base Excess 0 Rhythm: EKG: ECHO: Stress Test: Cardiac Cath: PCI: CT Surgery: Holter monitor: EPS: PPM: CXR: Chest CT Scan: Assessment/Plan #1. Coronary artery disease: The patient presents with what appears to be new onset congestive heart failure with akinetic anterior wall by echocardiogram superimposed upon an EKG which shows loss of R-wave forces and anterolateral J-point elevation, shortness of breath, orthopnea, PND, and abnormal troponin. I reviewed the patient's catheterization films from her more recent cath in July 2016 where her left main stent was patent. She also had complex coronary disease of her proximal left circumflex and ostial obtuse marginal #1 as well as diffuse possibly significant mid and distal RCA stenosis as well. Her ejection fraction at that time was found to be normal. At this point it appears the patient has had an anterior wall myocardial infarction since her EKG in July 2017 at which time her R-wave forces were normal. Final echocardiogram readings are pending. Would recommend reduction of her metoprolol until her heart failure has been normalized. Would recommend starting her on Lasix 40 mg IV daily and attempt to decompress her pulmonary edema allowing her to lay flat for a repeat catheterization. This will also assist with removing her from her BiPAP therapy. Her troponins are trending downwards, suggesting she has ischemia from her stress of her event. Her EKG suggests possible aneurysm of the anterior wall with her ST segment changes as well. Recommend continuing baby aspirin, Plavix, and afterload reducing agents such as Cozaar. Once the patient is able to lay down flat would recommend that she undergo a repeat catheterization. Multivessel bypass surgery may be somewhat problematic given her COPD and chronic O2 therapy. At most percutaneous intervention may be her only option, and albeit on a staged basis versus medical therapy only. 2. COPD: The patient has evidence on her chest x-ray of chronic bilateral interstitial disease as well as apical blebbing. She has flattening of her diaphragms suggesting her COPD is significant and she is on chronic O2 therapy. I am not certain the patient has a heel seam rubber but consultation with pulmonology may be indicated to assist with getting her off of BiPAP. 3. Hyperlipidemia: The patient is on a combination of gemfibrozil and Lipitor. Continue present management. 4. Discussed with Dr. Villegas. Thank you very much for the opportunity to participate in the cardiac care of your patient. Consultation time took place between 8 AM and 8:30 AM. Code Visit Inpatient E&M: 03818 Init Hosp L2
[2017-11-09] MEDS: amLODIPine 5 MG Tablet PO (09:56)
[2017-11-09] MEDS: Aspirin 325 MG Tablet PO (09:56)
[2017-11-09] MEDS: buPROPion (XL) 150 MG TABLET.XL PO (09:56)
[2017-11-09] MEDS: Fenofibrate 145 MG Tablet PO (09:57)
[2017-11-09] MEDS: Losartan Potassium 50 MG Tablet PO (09:57)
[2017-11-09] MEDS: Gabapentin 300 MG Capsule PO ×2 (09:57→16:57)
[2017-11-09] MEDS: Ranolazine 500 MG Tablet PO ×2 (09:58→21:05)
[2017-11-09] MEDS: Pantoprazole Sodium 20 MG Tablet PO (09:59)
[2017-11-09] MEDS: Clopidogrel Bisulfate 75 MG Tablet PO (10:00)
[2017-11-09] MEDS: busPIRone 15 MG TABLET PO (11:01)
--- NOTE | 2017-11-09 11:20 | CASEMGMT ---
Attempted to perform case management initial assessment. Care was being provided at this time. Will reattempt as time allows.
[2017-11-09 11:41] LABS: Base Excess -7 mmol/L (-2 to +2); Bicarbonate 18.9 mmol/L (22-26); Blood Gas Specimen Type ART; O2 Delivery Device Nasal Can; PO2 83 mmHG (75-100); SITE R Brachial; SO2 96 % (95-99); Time Given 1125; Total Carbon Dioxide 20 mmol/L; pCO2 35.4 mmHg (35-45); pH 7.34 (7.35-7.45)
--- NOTE | 2017-11-09 16:30 | CASEMGMT ---
RANDELL INITIAL ASSESSMENT: Home: Patient sates she lives in a one story home with her daughter. There is one, small step to enter the home. HHS/Aides: Denies. DME: Patient states she occasionally uses a cane to ambulate. She states she has a walker but can't find it. Home Oxygen: Patient states she wears 2L oxygen continuously. Provider is [facility]. She states she needs new tanks, but her daughter will call [facility] to get these. She states she has a nebulizer and supplies. Pharmacy: [facility] Advance Directives: Denies. Declines assistance at this time. PCP: Dr. Craig Specialists: Dr. Rodrigues and Dr. Marcos Golden DC Plan: Home, with support from daughter. CM will continue to follow for safe and effective discharge planning.
[2017-11-09] MEDS: 0.9% NaCl Peripheral Flush Adult/Peds IV ×2 (18:40→21:05)
[2017-11-09] MEDS: Carvedilol 3.125 MG TABLET PO (21:05)
[2017-11-09] MEDS: Atorvastatin Calcium 40 MG Tablet PO (21:08)
[2017-11-09] MEDS: Ipratropium 0.5 MG/2.5 ML SOLUTION INHALATION (23:41)
[2017-11-10] VITALS (37 sets, daily range): BP systolic 70–150; BP diastolic 39–94; PULSE 72–125; RESP 14–31; TEMP 36.6–36.8; O2SAT 90–100
[2017-11-10 04:36] LABS: Hematocrit 43.4 % (37-47); Hemoglobin 14.1 g/dl (12.0-15.0); Mean Corp Hgb Conc 32.5 g/gl (32-36); Mean Corpuscular Hgb 29.4 pg (27.0-32.0); Mean Corpuscular Volume 90.6 fL (81-99); Mean Platelet Vol. 10.4 fl (6.2-12.0); Platelet Count 289 K/mm3 (150-450); RBC Distribution Width CV 14.2 % (11.6-14.6); RBC Distribution Width SD 46.6 fl (35.1-43.9); Red Blood Count 4.79 M/mm3 (4.2-5.4); White Blood Count 18.5 K/mm3 (4.4-11.0)
[2017-11-10 04:37] LABS: Scan Indicated on CBC? Y/N NO
--- NOTE | 2017-11-10 08:35 | NURSING ---
anxious , sob , co chest pain dr hallman present given cardizem 10 mg as per order, resp tx given as per order
[2017-11-10] MEDS: Ranolazine 500 MG Tablet PO ×2 (08:51→21:32)
[2017-11-10] MEDS: Pantoprazole Sodium 20 MG Tablet PO (08:51)
[2017-11-10] MEDS: amLODIPine 5 MG Tablet PO (08:52)
[2017-11-10] MEDS: Gabapentin 300 MG Capsule PO ×2 (08:52→17:17)
[2017-11-10] MEDS: Clopidogrel Bisulfate 75 MG Tablet PO (08:52)
[2017-11-10] MEDS: Aspirin 325 MG Tablet PO (08:52)
[2017-11-10] MEDS: Furosemide 40 MG/4 ML Vial IV ×2 (08:54→17:17)
[2017-11-10] MEDS: Carvedilol 3.125 MG TABLET PO (08:54)
[2017-11-10] MEDS: Losartan Potassium 50 MG Tablet PO (08:54)
[2017-11-10] MEDS: busPIRone 15 MG TABLET PO (08:54)
[2017-11-10] MEDS: Enoxaparin 80 MG/0.8 ML Syringe 70 MG SC ×2 (08:55→21:33)
[2017-11-10] MEDS: Fenofibrate 145 MG Tablet PO (08:56)
[2017-11-10] MEDS: buPROPion (XL) 150 MG TABLET.XL PO (08:56)
[2017-11-10] MEDS: dilTIAZem 25 MG/5 ML Vial 10 MG IV BOLUS (09:40)
[2017-11-10] MEDS: Ipratropium 0.5 MG/2.5 ML SOLUTION INHALATION ×2 (09:52→19:10)
--- NOTE | 2017-11-10 10:14 | CPS ---
First ABG RT got venous
--- NOTE | 2017-11-10 10:28 | PCM.PN.CARD ---
Subjectve: Patient complains this morning of chest pain and shortness of breath. Patient has audible inspiratory and expiratory wheezes, tachypnea, and tachycardia after cleaning herself up in the bathroom. Nebulizer therapy ordered and patient given 10 mg of IV Cardizem with marked improvement of her heart rate. Troponins trending downwards. Telemetry negative. Objective: Vital Signs Temp Pulse Resp BP Pulse Ox 98.3 F 125 H 31 H 115/66 94 11/10/17 04:00 11/10/17 09:52 11/10/17 09:52 11/10/17 07:50 11/10/17 07:50 Oxygen Flow Rate (L/min) 4 Oxygen Delivery Method Nasal Cannula Weight: 154 lb 4.8 oz Body Mass Index (BMI) 27.8 Intake and Output for Last 24 Hours 11/08/17 11/09/17 11/10/17 23:59 23:59 23:59 Intake Total 1128.8 / 1128.8 991 / 991 Output Total 1300 / 1300 1650 / 1650 Balance -171.2 / -171.2 -659 / -659 General: Awake, Alert, Oriented x 3 HEENT: PERRL, EOMI, Sclera Non Icteric Neck: Supple, Good ROM, No Lymph Node Enlargement Lungs: Inspiratory Wheezes - Jaspreet Cardiovascular: Regular Rhythm, Normal S1, Normal S2, No Murmurs, No Rubs, No Gallops Vascular: No Carotid Bruits, Normal Femoral Pulses, Normal Radial Pulses, Normal Dorsalis Pedal Pulse, Normal Posterior Tibial Pulses Abdomen: Bowel Sounds Present, Soft, Non Tender, No HSM, No Organomegaly Extremities: No Cyanosis, No Clubbing, No edema Neurological: No Focal Motor or Sensory Deficit 11/09/17 08:50: Troponin I 0.781 H* 11/09/17 11:34: pH 7.34 L, Bicarbonate Actual 18.9 L, POC Total CO2 20, Base Excess -7 L, O2 Saturation 96, ABG pCO2 35.4, ABG pO2 83, Angelo Test NA 11/10/17 04:20: WBC 18.5 H, RBC 4.79, Hgb 14.1, Hct 43.4, MCV 90.6, MCH 29.4, MCHC 32.5, RDW 14.2, RDW Differential 46.6 H, Plt Count 289, MPV 10.4 Rhythm: EKG: ECHO: Stress Test: Cardiac Cath: PCI: CT Surgery: Holter monitor: EPS: PPM: CXR: Chest CT Scan: Medical Necessity - Tobacco Use Smoking Status: Current every day smoker Assessment/Plan #1. Coronary artery disease: The patient presents with what appears to be new onset congestive heart failure with akinetic anterior wall by echocardiogram superimposed upon an EKG which shows loss of R-wave forces and anterolateral J-point elevation, shortness of breath, orthopnea, PND, and abnormal troponin. I reviewed the patient's catheterization films from her more recent cath in July 2016 where her left main stent was patent. She also had complex coronary disease of her proximal left circumflex and ostial obtuse marginal #1 as well as diffuse possibly significant mid and distal RCA stenosis as well. Her ejection fraction at that time was found to be normal. It is unclear whether the patient has had a previous undetected anterior wall myocardial infarction versus Takostbos cardiomyopathy. 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 Would recommend reduction of her metoprolol until her heart failure has been normalized. Would recommend starting her on Lasix 40 mg IV daily and attempt to decompress her pulmonary edema allowing her to lay flat for a repeat catheterization. Patient has not required BiPAP therapy. Will treat the patient's respiratory distress this morning with nebulizer therapy. Unfortunately she is unable to tolerate albuterol, but we will treat her with Atrovent this morning. She is already been started on Solu-Medrol, and I have asked her to obtain her albuterol substitute nebulizer to be given to her in the hospital from home. Her troponins are trending downwards, suggesting she has ischemia from her stress of her event. Her EKG suggests possible aneurysm of the anterior wall with her ST segment changes as well vs Takostubos CMP. [facility] planned for tomorrow morning if patient is able to lay down flat. Continue IV diuretic therapy for 1 more day followed by switching her to Lasix 40 mg p.o. daily tomorrow. Recommend continuing baby aspirin, Plavix, and afterload reducing agents such as Cozaar. Depending upon the findings of the heart catheterization, multivessel bypass surgery may be somewhat problematic given her COPD and chronic O2 therapy. At most percutaneous intervention may be her only option, and albeit on a staged basis versus medical therapy only. 2. COPD: The patient has evidence on her chest x-ray of chronic bilateral interstitial disease as well as apical blebbing. She has flattening of her diaphragms suggesting her COPD is significant and she is on chronic O2 therapy. 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 3. Hyperlipidemia: The patient is on a combination of gemfibrozil and Lipitor. Continue present management. 4. Thank you very much for the opportunity to participate in the cardiac care of your patient. Code Visit Inpatient E&M: 21900 Subs Hosp L2
--- NOTE | 2017-11-10 11:41 | PCM.PN.HOSP ---
Patient Problems: Active and Suspected Problems (Last Reviewed 11/09/17 @ 05:19 by Lokesh Sethi MD) NSTEMI (non-ST elevated myocardial infarction) (Acute) COPD exacerbation (Acute) CAD (coronary artery disease) (Acute) Tobacco abuse (Acute) Congestive heart failure (Acute) Subjective: Patient woke up at about 3 AM with chest pain and shortness of breath. Patient also is very anxious, short of breath, wheezing and tachypnea. Patient was sinus tachycardia and therefore given 10 mg IV Cardizem. Currently, heart rate in lower 100s. Switch DuoNeb to Xopenex. Scheduled for cardiac cath tomorrow morning. Currently on 4 L of oxygen, pulse ox 93% Vitals/I&O's: Vital Signs Temp Pulse Resp BP Pulse Ox 98.1 F 102 H 20 H 91/68 93 11/10/17 09:00 11/10/17 11:00 11/10/17 11:00 11/10/17 11:00 11/10/17 11:00 Oxygen Flow Rate (L/min) 4 Oxygen Delivery Method Nasal Cannula Weight: 154 lb 4.8 oz Body Mass Index (BMI) 27.8 Intake and Output for Last 24 Hours 11/08/17 11/09/17 11/10/17 23:59 23:59 23:59 Intake Total 1128.8 / 1128.8 991 / 991 Output Total 1300 / 1300 1650 / 1650 Balance -171.2 / -171.2 -659 / -659 General: Alert, Oriented x3, Cooperative HEENT: Atraumatic, PERRLA, EOMI, Normocephalic Neck: Supple, No JVD, Negative Carotid Bruits Lungs: Diminished, Rhonchi, Tachypneic, Wheezes, - - Egophony Cardiovascular: Normal S1, Normal S2, No murmurs, Tachycardic Abdomen: Bowel Sounds Present, Soft, Non Tender, Non-Distended Extremities: No edema, Capillary Refill Less than 3 Seconds Skin: No rashes, No breakdown Musculoskeletal: No Tenderness to Palpation of Joints or Extremities Neurological: Cranial nerves II-XII grossly intact Psych/Mental Status: Normal Affect, Appropriate Microbiology Past 72 Hours 11/09/17 07:45 Mucosa - Nose Influenza Types A,B Direct FA ([facility]) - Final Laboratory Results 11/09/17 11:34: Specimen Type ART, Sample Site R Brachial, pH 7.34 L, Bicarbonate Actual 18.9 L, POC Total CO2 20, Base Excess -7 L, O2 Saturation 96, ABG pCO2 35.4, ABG pO2 83, Angelo Test NA, O2 Delivery Device Nasal Can, Liter Flow 4.0, Blood Gas Notified Whom JESUS IVEY, Blood Gas Notified Time 1125 11/10/17 04:20: WBC 18.5 H, RBC 4.79, Hgb 14.1, Hct 43.4, MCV 90.6, MCH 29.4, MCHC 32.5, RDW 14.2, RDW Differential 46.6 H, Plt Count 289, MPV 10.4 Current Medications Amlodipine Besylate (Norvasc) 5 mg PO DAILY [facility] Last Admin: 11/10/17 08:52 Dose: 5 mg Aspirin (Aspirin, Baby) 81 mg PO DAILY@0800 [facility] Atorvastatin Calcium (Lipitor) 40 mg PO QHS [facility] Last Admin: 11/09/17 21:08 Dose: 40 mg Bupropion HCl (Wellbutrin Xl) 150 mg PO DAILY [facility] Last Admin: 11/10/17 08:56 Dose: 150 mg Buspirone HCl (Buspar) 15 mg PO DAILY [facility] Last Admin: 11/10/17 08:54 Dose: 15 mg Carvedilol (Coreg) 3.125 mg PO BID [facility] Last Admin: 11/10/17 08:54 Dose: 3.125 mg Clopidogrel Bisulfate (Plavix) 75 mg PO DAILY [facility] Last Admin: 11/10/17 08:52 Dose: 75 mg Cyclobenzaprine HCl (Flexeril) 10 mg PO DAILY [facility] Last Admin: 11/10/17 10:19 Dose: 10 mg Diphenhydramine HCl (Benadryl) 25 mg PO Q6H PRN PRN PRN Reason: ITCHING Diphenhydramine HCl (Benadryl) 50 mg PO X1 ONE Stop: 11/11/17 07:01 Enoxaparin Sodium (Lovenox) 70 mg 1 mg/kg (70 mg) SC Q12 [facility] Last Admin: 11/10/17 08:55 Dose: 70 mg Ergocalciferol (Vitamin D) 50,000 unit PO [facility] Fenofibrate (Tricor) 145 mg PO DAILY [facility] Last Admin: 11/10/17 08:56 Dose: 145 mg Furosemide (Lasix) 40 mg IV BID@1000,1800 [facility] Last Admin: 11/10/17 08:54 Dose: 40 mg Gabapentin (Neurontin) 300 mg PO BIDCM [facility] Last Admin: 11/10/17 08:52 Dose: 300 mg Nitroglycerin/Dextrose 25 mg/ (N/A) 250 mls @ 3 mls/hr IV .[id number] NAIF PRN Reason: 5 MCG/MIN Last Admin: 11/09/17 04:17 Dose: 3 mls/hr Sodium Chloride () 250 mls @ 15 mls/hr IV .[id number] PRN PRN Reason: SALINE FLUSH Nitroglycerin/Dextrose () 250 mls @ 3 mls/hr IV .[id number] NAIF; 5 MCG/MIN PRN Reason: Protocol Last Admin: 11/09/17 10:57 Dose: Not Given Azithromycin 500 mg/ Dextrose 255 mls @ 250 mls/hr IV Q24 [facility] Stop: 11/11/17 11:02 Last Admin: 11/10/17 08:59 Dose: 250 mls/hr Sodium Chloride () 1,000 mls @ 15 mls/hr IV .Q48H NAIF PRN Reason: KVO Ipratropium [place] (Atrovent) 0.5 mg INHALATION Q4H.RT PRN PRN Reason: WHEEZING Last Admin: 11/10/17 09:52 Dose: 0.5 mg Isosorbide Mononitrate (Imdur) 120 mg PO DAILY [facility] Last Admin: 11/10/17 10:19 Dose: 120 mg Losartan Potassium (Cozaar) 50 mg PO DAILY [facility] Last Admin: 11/10/17 08:54 Dose: 50 mg Methylprednisolone (Solu-Medrol) 40 mg IV Q8 [facility] Stop: 11/10/17 14:01 Last Admin: 11/10/17 05:15 Dose: 40 mg Nicotine (Nicoderm Cq (Pbkc)) 21 mg TRANSDERM. DAILY [facility] Last Admin: 11/10/17 08:53 Dose: 21 mg Nitroglycerin (Nitrostat) 0.4 mg SUBLINGUAL Q5M PRN PRN Reason: Chest Pain Pantoprazole Sodium (Protonix) 20 mg PO DAILY [facility] Last Admin: 11/10/17 08:51 Dose: 20 mg Paroxetine HCl (Paxil) 40 mg PO DAILY [facility] Last Admin: 11/10/17 08:55 Dose: 40 mg Prednisone () 20 mg PO DAILY@0800 [facility] Ranolazine (Ranexa) 500 mg PO BID [facility] Last Admin: 11/10/17 08:51 Dose: 500 mg Sodium Chloride () 5 - 30 ml IV UD PRN PRN Reason: SALINE FLUSH Last Admin: 11/09/17 21:05 Dose: 10 ml Medical Necessity - Tobacco Use Smoking Status: Current every day smoker Assessment/Plan All Active Problems (Last Reviewed 11/09/17 @ 05:19 by Lokesh Sethi MD) NSTEMI (non-ST elevated myocardial infarction) (Acute) COPD exacerbation (Acute) CAD (coronary artery disease) (Acute) Tobacco abuse (Acute) Congestive heart failure (Acute) 72 year old female w/ h/o CAD s/p left main stenting in 2014, hypertension, and hyperlipidemia admitted for chest pain. Her assessment is consistent with non-STEMI. She also has COPD exacerbation. 1) NSTEMI: EKG disclosed lateral T-wave inversion, minimal ST elevation in the lateral lead but no reciprocal changes. Previous cardiac cath of July [address] Burns and as per his note, left main stent was patent. Complex coronary disease of proximal left circumflex and ostial obtuse marginal 1 and diffuse significant mid and distal RCA stenosis. 2D echo done this time shows EF with akinetic anterior wall Trop 1.35. Troponins 0.9, 0.781. Fasting lipid profile TG 219, total cholesterol 259, LDL 176, HDL 39. TSH 4.84. trips eevated in NSTEMI range ECHO done Plan for cardiac cath tomorrow morning. On medical management including aspirin, Plavix, Lovenox therapeutic dose, nitrate, Cozaar, and metoprolol and atorvastatin. Patient is also on Ranexa 50 mg twice daily. 2. Acute systolic congestive heart failure, most probably secondary to non-STEMI: On Lasix. BNP 526 rest as mentioned above. ) ALIVIA with superimposed CKD: Baseline Cr 0.7 Cr 1.35. 1.27 on IV fluid 3) Acute hypoxic respiratory failure secondary to COPD exacerbation: C/w bipap. Patient on Solu-Medrol and can transition to prednisone on Saturday if she stays. On Xopenex every 4 hourly while awake. BiPAP support at night. On Zithromax for COPD examination. Test negative. ABG reviewed. First was venous 7.31, mixed PCO2 52 ON [place] 40% fio2, 8/4 and then 7.34, PCO2 35, PO2 83 ON 4 L O2, NC after 4 hrs. It seems pt is mild CO2 retainer and Co2 washed out after Bipap. Allergy to duoneb and ceftriaxone. Cultures pending. 4) Tobacco abuse: Education done. 5) Prophylaxis: SCD / lovenox. Microbiology Past 72 Hours 11/09/17 07:45 Mucosa - Nose Influenza Types A,B Direct FA ([facility]) - Final Laboratory Results 11/10/17 04:20: WBC 18.5 H, RBC 4.79, Hgb 14.1, Hct 43.4, MCV 90.6, MCH 29.4, MCHC 32.5, RDW 14.2, RDW Differential 46.6 H, Plt Count 289, MPV 10.4 Code Visit Inpatient E&M: 69105 Subs Hosp L3
--- NOTE | 2017-11-10 11:58 | PN_ITS ---
Patient Problems: Active and Suspected Problems (Last Reviewed 11/09/17 @ 05:19 by Lokesh Sethi MD) NSTEMI (non-ST elevated myocardial infarction) (Acute) COPD exacerbation (Acute) CAD (coronary artery disease) (Acute) Tobacco abuse (Acute) Congestive heart failure (Acute) Subjective: Patient woke up at about 3 AM with chest pain and shortness of breath. Patient also is very anxious, short of breath, wheezing and tachypnea. Patient was sinus tachycardia and therefore given 10 mg IV Cardizem. Currently , heart rate in lower 100s. Switch DuoNeb to Xopenex. Scheduled for cardiac cath tomorrow morning. Currently on 4 L of oxygen, pulse ox 93% Vitals/I&O's: Vital Signs Temp Pulse Resp BP Pulse Ox 98.1 F 102 H 20 H 91/68 93 11/10/17 09:00 11/10/17 11:00 11/10/17 11:00 11/10/17 11:00 11/10/17 11:00 Oxygen Flow Rate (L/min) 4 Oxygen Delivery Method Nasal Cannula Weight: 154 lb 4.8 oz Body Mass Index (BMI) 27.8 Intake and Output for Last 24 Hours 11/08/17 11/09/17 11/10/17 23:59 23:59 23:59 Intake Total 1128.8 / 1128.8 991 / 991 Output Total 1300 / 1300 1650 / 1650 Balance -171.2 / -171.2 -659 / -659 General: Alert, Oriented x3, Cooperative HEENT: Atraumatic, PERRLA, EOMI, Normocephalic Neck: Supple, No JVD, Negative Carotid Bruits Lungs: Diminished, Rhonchi, Tachypneic, Wheezes, - - Egophony Cardiovascular: Normal S1, Normal S2, No murmurs, Tachycardic Abdomen: Bowel Sounds Present, Soft, Non Tender, Non-Distended Extremities: No edema, Capillary Refill Less than 3 Seconds Skin: No rashes, No breakdown Musculoskeletal: No Tenderness to Palpation of Joints or Extremities Neurological: Cranial nerves II-XII grossly intact Psych/Mental Status: Normal Affect, Appropriate Microbiology Past 72 Hours 11/09/17 07:45 Mucosa - Nose Influenza Types A,B Direct FA ([facility]) - Final Laboratory Results 11/09/17 11:34: Specimen Type ART, Sample Site R Brachial, pH 7.34 L, Bicarbonate Actual 18.9 L, POC Total CO2 20, Base Excess -7 L, O2 Saturation 96 , ABG pCO2 35.4, ABG pO2 83, Angelo Test NA, O2 Delivery Device Nasal Can, Liter Flow 4.0, Blood Gas Notified Whom JESUS IVEY, Blood Gas Notified Time 1125 11/10/17 04:20: WBC 18.5 H, RBC 4.79, Hgb 14.1, Hct 43.4, MCV 90.6, MCH 29.4, MCHC 32.5, RDW 14.2, RDW Differential 46.6 H, Plt Count 289, MPV 10.4 Current Medications Amlodipine Besylate (Norvasc) 5 mg PO DAILY [facility] Last Admin: 11/10/17 08:52 Dose: 5 mg Aspirin (Aspirin, Baby) 81 mg PO DAILY@0800 [facility] Atorvastatin Calcium (Lipitor) 40 mg PO QHS [facility] Last Admin: 11/09/17 21:08 Dose: 40 mg Bupropion HCl (Wellbutrin Xl) 150 mg PO DAILY [facility] Last Admin: 11/10/17 08:56 Dose: 150 mg Buspirone HCl (Buspar) 15 mg PO DAILY [facility] Last Admin: 11/10/17 08:54 Dose: 15 mg Carvedilol (Coreg) 3.125 mg PO BID [facility] Last Admin: 11/10/17 08:54 Dose: 3.125 mg Clopidogrel Bisulfate (Plavix) 75 mg PO DAILY [facility] Last Admin: 11/10/17 08:52 Dose: 75 mg Cyclobenzaprine HCl (Flexeril) 10 mg PO DAILY [facility] Last Admin: 11/10/17 10:19 Dose: 10 mg Diphenhydramine HCl (Benadryl) 25 mg PO Q6H PRN PRN PRN Reason: ITCHING Diphenhydramine HCl (Benadryl) 50 mg PO X1 ONE Stop: 11/11/17 07:01 Enoxaparin Sodium (Lovenox) 70 mg 1 mg/kg (70 mg) SC Q12 [facility] Last Admin: 11/10/17 08:55 Dose: 70 mg Ergocalciferol (Vitamin D) 50,000 unit PO [facility] Fenofibrate (Tricor) 145 mg PO DAILY [facility] Last Admin: 11/10/17 08:56 Dose: 145 mg Furosemide (Lasix) 40 mg IV BID@1000,1800 [facility] Last Admin: 11/10/17 08:54 Dose: 40 mg Gabapentin (Neurontin) 300 mg PO BIDCM [facility] Last Admin: 11/10/17 08:52 Dose: 300 mg Nitroglycerin/Dextrose 25 mg/ (N/A) 250 mls @ 3 mls/hr IV .[id number] NAIF PRN Reason: 5 MCG/MIN Last Admin: 11/09/17 04:17 Dose: 3 mls/hr Sodium Chloride () 250 mls @ 15 mls/hr IV .[id number] PRN PRN Reason: SALINE FLUSH Nitroglycerin/Dextrose () 250 mls @ 3 mls/hr IV .[id number] NAIF; 5 MCG/MIN PRN Reason: Protocol Last Admin: 11/09/17 10:57 Dose: Not Given Azithromycin 500 mg/ Dextrose 255 mls @ 250 mls/hr IV Q24 [facility] Stop: 11/11/17 11:02 Last Admin: 11/10/17 08:59 Dose: 250 mls/hr Sodium Chloride () 1,000 mls @ 15 mls/hr IV .Q48H NAIF PRN Reason: KVO Ipratropium [place] (Atrovent) 0.5 mg INHALATION Q4H.RT PRN PRN Reason: WHEEZING Last Admin: 11/10/17 09:52 Dose: 0.5 mg Isosorbide Mononitrate (Imdur) 120 mg PO DAILY [facility] Last Admin: 11/10/17 10:19 Dose: 120 mg Losartan Potassium (Cozaar) 50 mg PO DAILY [facility] Last Admin: 11/10/17 08:54 Dose: 50 mg Methylprednisolone (Solu-Medrol) 40 mg IV Q8 [facility] Stop: 11/10/17 14:01 Last Admin: 11/10/17 05:15 Dose: 40 mg Nicotine (Nicoderm Cq (Pbkc)) 21 mg TRANSDERM. DAILY [facility] Last Admin: 11/10/17 08:53 Dose: 21 mg Nitroglycerin (Nitrostat) 0.4 mg SUBLINGUAL Q5M PRN PRN Reason: Chest Pain Pantoprazole Sodium (Protonix) 20 mg PO DAILY [facility] Last Admin: 11/10/17 08:51 Dose: 20 mg Paroxetine HCl (Paxil) 40 mg PO DAILY [facility] Last Admin: 11/10/17 08:55 Dose: 40 mg Prednisone () 20 mg PO DAILY@0800 [facility] Ranolazine (Ranexa) 500 mg PO BID [facility] Last Admin: 11/10/17 08:51 Dose: 500 mg Sodium Chloride () 5 - 30 ml IV UD PRN PRN Reason: SALINE FLUSH Last Admin: 11/09/17 21:05 Dose: 10 ml Medical Necessity - Tobacco Use Smoking Status: Current every day smoker Assessment/Plan All Active Problems (Last Reviewed 11/09/17 @ 05:19 by Lokesh Sethi MD) NSTEMI (non-ST elevated myocardial infarction) (Acute) COPD exacerbation (Acute) CAD (coronary artery disease) (Acute) Tobacco abuse (Acute) Congestive heart failure (Acute) 72 year old female w/ h/o CAD s/p left main stenting in 2014, hypertension, and hyperlipidemia admitted for chest pain. Her assessment is consistent with non- STEMI. She also has COPD exacerbation. 1) NSTEMI: EKG disclosed lateral T-wave inversion, minimal ST elevation in the lateral lead but no reciprocal changes. Previous cardiac cath of July [address] Burns and as per his note, left main stent was patent. Complex coronary disease of proximal left circumflex and ostial obtuse marginal 1 and diffuse significant mid and distal RCA stenosis. 2D echo done this time shows EF with akinetic anterior wall Trop 1.35. Troponins 0.9, 0.781. Fasting lipid profile TG 219, total cholesterol 259, LDL 176, HDL 39. TSH 4.84. trips eevated in NSTEMI range ECHO done Plan for cardiac cath tomorrow morning. On medical management including aspirin , Plavix, Lovenox therapeutic dose, nitrate, Cozaar, and metoprolol and atorvastatin. Patient is also on Ranexa 50 mg twice daily. 2. Acute systolic congestive heart failure, most probably secondary to non-STEMI : On Lasix. BNP 526 rest as mentioned above. ) ALIVIA with superimposed CKD: Baseline Cr 0.7 Cr 1.35. 1.27 on IV fluid 3) Acute hypoxic respiratory failure secondary to COPD exacerbation: C/w bipap. Patient on Solu-Medrol and can transition to prednisone on Saturday if she stays. On Xopenex every 4 hourly while awake. BiPAP support at night. On Zithromax for COPD examination. Test negative. ABG reviewed. First was venous 7.31, mixed PCO2 52 ON [place] 40% fio2, 8/4 and then 7.34, PCO2 35, PO2 83 ON 4 L O2, NC after 4 hrs. It seems pt is mild CO2 retainer and Co2 washed out after Bipap. Allergy to duoneb and ceftriaxone. Cultures pending. 4) Tobacco abuse: Education done. 5) Prophylaxis: SCD / lovenox. Microbiology Past 72 Hours 11/09/17 07:45 Mucosa - Nose Influenza Types A,B Direct FA ([facility]) - Final Laboratory Results 11/10/17 04:20: WBC 18.5 H, RBC 4.79, Hgb 14.1, Hct 43.4, MCV 90.6, MCH 29.4, MCHC 32.5, RDW 14.2, RDW Differential 46.6 H, Plt Count 289, MPV 10.4 Code Visit Inpatient E&M: 12176 Subs Hosp L3
[2017-11-10 12:51] LABS: Bedside Glucose 144 mg/dL (70-110)
--- NOTE | 2017-11-10 15:57 | CPS ---
Patient to bring in her home med Xopenex because patient is allergic to albuterol. Patient taking nebulizer Xopenex treatments 4x a day at home. Xopenex to be given Q4WA. Patient's daughter at bedside when patient was asked to have someone bring Xopenex in. Atrovent PRN given at 0952 due to wheezing. RT checked on patient at 1545 and patient was sleeping with no wheeze in all lung meza. PRN held at this time. Brissa Marshall RRT
[2017-11-10] MEDS: 0.9% NaCl Peripheral Flush Adult/Peds IV (17:18)
[2017-11-10] MEDS: Atorvastatin Calcium 40 MG Tablet PO (21:32)
[2017-11-10 22:00] LABS: Bedside Glucose 164 mg/dL (70-110)
[2017-11-11] VITALS (46 sets, daily range): BP systolic 95–163; BP diastolic 7–100; PULSE 85–117; RESP 14–28; TEMP 36.1–36.6; O2SAT 86–99
--- NOTE | 2017-11-11 03:31 | EKG12_ITS ---
Test Reason : AM EKG Blood Pressure : / mmHG Vent. Rate : 097 BPM Atrial Rate : 097 BPM P-R Int : 158 ms QRS Dur : 092 ms QT Int : 406 ms P-R-T Axes : 061 036 185 degrees QTc Int : 515 ms Normal sinus rhythm ST & Marked T wave abnormality, consider anterolateral ischemia Prolonged QT Abnormal ECG When compared with ECG of 09-NOV-2017 03:47, MANUAL COMPARISON REQUIRED, DATA IS UNCONFIRMED Confirmed by JOÃO IVEY, ANGIE ([id number]), magazine editor MACKENZIE TORRES ([id number]) on 11/13/2017 2:07:32 PM Referred By: LI Confirmed By:ANGIE MOYER MD
[2017-11-11] MEDS: Clopidogrel Bisulfate 75 MG Tablet PO (05:52)
[2017-11-11] MEDS: Aspirin 81 MG TAB.CHEW PO (05:52)
[2017-11-11] MEDS: 0.9% Normal Saline 1,000 ML 15 ML IV (05:52)
[2017-11-11] MEDS: CHLORHEXIDINE GLUC 2% CLOTH 1 EACH TOWELETTE TOPICAL (06:03)
[2017-11-11 06:18] LABS: Bacteria 0 SEEN /hpf (None Seen); Mucous, Urine 0 SEEN /hpf (<or=2+); Red Blood Cells-Urine 0 SEEN /hpf (0-5); White Blood Cells 0 SEEN /hpf (0-5)
[2017-11-11 06:20] LABS: Color, Urine Yellow (Yellow); Glucose, Dipstick Normal (Normal); Ketone-Dipstick Negative (Negative); Leukocyte Esterase-Dipstick Negative /ul (Negative); Nitrite-Dipstick Negative (Negative); Occult Blood-Urine Negative /ul (Negative); Protein-Dipstick 30 mg/dl (Negative); Urine Bilirubin Dipstick Negative (Negative); Urine Clarity Clear (Clear); Urine Urobilinogen Normal (Normal)
[2017-11-11 06:21] LABS: Anion Gap 9 (5-15); BUN 36 mg/dL (7-18); BUN/Creat Ratio 30.8 RATIO (10-20); Chloride 105 mmol/L (98-107); Creatinine, Serum 1.17 mg/dL (0.55-1.02); EST Glomerular Filtration Rate 48 mL/min (>60); Est Glom Filt Rate - Afr Amer 58 mL/min (>60); Estimated Creatinine Clearance 34.38 ml/min; Glucose 113 mg/dL (74-106); Potassium 4.2 mmol/L (3.5-5.1); Sodium Level 142 mmol/L (136-145)
[2017-11-11 06:34] LABS: Absolute Lymphocyte Count 0.93 X10^3/ul (0.83-4.51); Absolute Neutrophil Count 14.8 X10^3/uL (2.0-7.7); Eosinophil# 0.01 X10^3/uL; Eosinophils% 0.1 % (0-5); Hematocrit 39.5 % (37-47); Hemoglobin 12.5 g/dl (12.0-15.0); Lymphocyte # 0.93 X10^3/ul (4.0); Lymphocyte % 5.8 % (19-41); Mean Corp Hgb Conc 31.6 g/gl (32-36); Mean Corpuscular Volume 91.6 fL (81-99); Mean Platelet Vol. 10.5 fl (6.2-12.0); Monocyte# 0.26 X10^3/uL; Monocyte% 1.6 % (0-10); Neutrophil # 14.82 X10^3/uL (2.7-7.7); Neutrophil % 92.3 % (47-70); Platelet Count 279 K/mm3 (150-450); RBC Distribution Width CV 14.3 % (11.6-14.6); RBC Distribution Width SD 48.8 fl (35.1-43.9); Red Blood Count 4.31 M/mm3 (4.2-5.4); White Blood Count 16.1 K/mm3 (4.4-11.0)
[2017-11-11 06:37] LABS: Squamous Epithelial Cells - UA 0-5 SEEN /hpf (5-10)
[2017-11-11] MEDS: Ipratropium 0.5 MG/2.5 ML SOLUTION INHALATION ×2 (06:51→19:33)
[2017-11-11 06:56] LABS: POSITIVE COUNT NO; POSITIVE DIFFERENTIAL NO; POSITIVE MORPHOLOGY NO
--- NOTE | 2017-11-11 06:57 | NURSING ---
discussed heart cath time with laborer [employer] RN. ok to give benadryl around 8:30 for possible procedure at 10:30. also discussed holding BP meds for now because pt's BP has been low all night.
[2017-11-11] MEDS: 0.9% NaCl Peripheral Flush Adult/Peds IV ×3 (08:47→14:57)
[2017-11-11] MEDS: DiphenhydrAMINE 25 MG Capsule 50 MG PO (08:47)
[2017-11-11] MEDS: busPIRone 15 MG TABLET PO (10:02)
[2017-11-11] MEDS: Pantoprazole Sodium 20 MG Tablet PO (10:03)
[2017-11-11] MEDS: buPROPion (XL) 150 MG TABLET.XL PO (10:04)
--- NOTE | 2017-11-11 10:06 | PCM.PN.HOSP ---
Patient Problems: Active and Suspected Problems (Last Reviewed 11/09/17 @ 05:19 by Lokesh Sethi MD) NSTEMI (non-ST elevated myocardial infarction) (Acute) COPD exacerbation (Acute) CAD (coronary artery disease) (Acute) Tobacco abuse (Acute) Congestive heart failure (Acute) Subjective: Patient seen and examined. She has no complaints and chest pain is resolved. She denies any fever chills chest pain, any shortness of breath, abdominal pain, any diarrhea or vomiting. She complains of a cough which is chronic and is due to COPD, and is productive of clear sputum. Patient did require increasing amounts of oxygen and had to go up to 4 L of oxygen. Her baseline is around 2 L. Patient is awaiting cardiac cath today. Labs and vitals reviewed. Vitals/I&O's: Vital Signs Temp Pulse Resp BP Pulse Ox 97.3 F L 90 24 H 147/78 H 93 11/11/17 07:00 11/11/17 08:00 11/11/17 08:00 11/11/17 08:00 11/11/17 08:00 Oxygen Flow Rate (L/min) 4 Oxygen Delivery Method Nasal Cannula Weight: 154 lb 12.232 oz Body Mass Index (BMI) 27.8 Intake and Output for Last 24 Hours 11/09/17 11/10/17 11/11/17 23:59 23:59 23:59 Intake Total 1128.8 / 1128.8 1941 / 1941 432 / 432 Output Total 1300 / 1300 2550 / 2550 700 / 700 Balance -171.2 / -171.2 -609 / -609 -268 / -268 General: Alert, Oriented x3, Cooperative, No apparent distress HEENT: Atraumatic, PERRLA, EOMI, Normocephalic Oral: Moist Mucosa Neck: Supple, No JVD, Negative Carotid Bruits Lungs: Normal air movement, - - has mild wheezing in lower lung meza bilaterally Cardiovascular: Regular rate, Regular Rhythm, Normal S1, Normal S2, No murmurs Abdomen: Bowel Sounds Present, Soft, Non Tender, Non-Distended, No Hepato-splenomegaly Extremities: No clubbing, No cyanosis, No edema, Capillary Refill Less than 3 Seconds Skin: No rashes, No breakdown Musculoskeletal: No Tenderness to Palpation of Joints or Extremities Lymphatic: No Cervical, Supraclavicular, or Inguinal Adenopathy Neurological: Cranial nerves II-XII grossly intact Psych/Mental Status: Normal Affect, Appropriate, Alert and oriented to time, place, person, mood and affect Microbiology Past 72 Hours 11/09/17 07:45 Mucosa - Nose Influenza Types A,B Direct FA (CORY) - Final Laboratory Results 11/10/17 12:47: POC Glucose 144 H 11/10/17 21:54: POC Glucose 164 H 11/11/17 05:55: WBC 16.1 H, RBC 4.31, Hgb 12.5, Hct 39.5, MCV 91.6, MCH 29.0, MCHC 31.6 L, RDW 14.3, RDW Differential 48.8 H, Plt Count 279, MPV 10.5, Immature Gran % (Auto) 0.200, Neut % (Auto) 92.3 H, Lymph % (Auto) 5.8 L, [place] % (Auto) 1.6, Eos % (Auto) 0.1, Baso % (Auto) 0.0, Absolute Neuts (auto) 14.8 H, Absolute Lymphs (auto) 0.93, Total Counted Not Reportable 11/11/17 05:55: Sodium 142, Potassium 4.2, Chloride 105, Carbon Dioxide 28.0, Anion Gap 9, BUN 36 H, Creatinine 1.17 H, Estim Creat Clear Calc 34.38, Est GFR (MDRD) Af Amer 58 L, Est GFR (MDRD) Non-Af 48 L, BUN/Creatinine Ratio 30.8 H, Glucose 113 H, Calcium 9.0 11/11/17 05:55: PT 13.0, INR 1.0 11/11/17 05:55: Urine Color Yellow, Urine Clarity Clear, Urine pH 6.0, Ur Specific [place] 1.020, Urine Protein 30 H, Urine Glucose (UA) Normal, Urine Ketones Negative, Urine Occult Blood Negative, Urine Nitrite Negative, Urine Bilirubin Negative, Urine Urobilinogen Normal, Ur Leukocyte Esterase Negative, Urine RBC 0 SEEN, Urine WBC 0 SEEN, Ur Squamous Epith Cells 0-5 SEEN, Urine Bacteria 0 SEEN, Urine Mucus 0 SEEN Diagnostic Data Chest X-Ray 11/09/17 03:40 IMPRESSION: 2 mm stone in the distal left ureter at the level of the ureterovesical junction with changes of moderate acute obstructive uropathy. Electronically Signed: Gio Garg MD at 4:26 EDT Tel , Service support , ADDENDUM: 11/09/17 0452 Current Medications Amlodipine Besylate (Norvasc) 5 mg PO DAILY [facility] Last Admin: 11/11/17 09:36 Dose: Not Given Aspirin (Aspirin, Baby) 81 mg PO DAILY@0800 [facility] Last Admin: 11/11/17 05:52 Dose: 81 mg Atorvastatin Calcium (Lipitor) 40 mg PO QHS [facility] Last Admin: 11/10/17 21:32 Dose: 40 mg Bupropion HCl (Wellbutrin Xl) 150 mg PO DAILY [facility] Last Admin: 11/11/17 10:04 Dose: 150 mg Buspirone HCl (Buspar) 15 mg PO DAILY [facility] Last Admin: 11/11/17 10:02 Dose: 15 mg Carvedilol (Coreg) 3.125 mg PO BID [facility] Last Admin: 11/11/17 09:34 Dose: Not Given Chlorhexidine Gluconate () 1 each TOPICAL DAILY [facility] Last Admin: 11/11/17 06:03 Dose: 1 each Clopidogrel Bisulfate (Plavix) 75 mg PO DAILY [facility] Last Admin: 11/11/17 05:52 Dose: 75 mg Cyclobenzaprine HCl (Flexeril) 10 mg PO DAILY [facility] Last Admin: 11/11/17 10:02 Dose: 10 mg Diphenhydramine HCl (Benadryl) 25 mg PO Q6H PRN PRN PRN Reason: ITCHING Enoxaparin Sodium (Lovenox) 70 mg 1 mg/kg (70 mg) SC Q12 [facility] Last Admin: 11/11/17 09:35 Dose: Not Given Ergocalciferol (Vitamin D) 50,000 unit PO [facility] Fenofibrate (Tricor) 145 mg PO DAILY [facility] Last Admin: 11/11/17 09:53 Dose: Not Given Furosemide (Lasix) 40 mg IV BID@1000,1800 [facility] Last Admin: 11/11/17 09:35 Dose: Not Given Gabapentin (Neurontin) 300 mg PO BIDCM [facility] Last Admin: 11/11/17 08:49 Dose: Not Given Nitroglycerin/Dextrose 25 mg/ (N/A) 250 mls @ 3 mls/hr IV .[id number] NAIF PRN Reason: 5 MCG/MIN Last Admin: 11/09/17 04:17 Dose: 3 mls/hr Sodium Chloride () 250 mls @ 15 mls/hr IV .[id number] PRN PRN Reason: SALINE FLUSH Nitroglycerin/Dextrose () 250 mls @ 3 mls/hr IV .[id number] NAIF; 5 MCG/MIN PRN Reason: Protocol Last Admin: 11/09/17 10:57 Dose: Not Given Azithromycin 500 mg/ Dextrose 255 mls @ 250 mls/hr IV Q24 [facility] Stop: 11/11/17 11:02 Last Admin: 11/11/17 08:47 Dose: 250 mls/hr Sodium Chloride () 1,000 mls @ 15 mls/hr IV .Q48H NAIF PRN Reason: KVO Last Admin: 11/11/17 05:52 Dose: 15 mls/hr Ipratropium [place] (Atrovent) 0.5 mg INHALATION Q4H.RT PRN PRN Reason: WHEEZING Last Admin: 11/11/17 06:51 Dose: 0.5 mg Isosorbide Mononitrate (Imdur) 120 mg PO DAILY [facility] Last Admin: 11/11/17 09:35 Dose: Not Given Losartan Potassium (Cozaar) 50 mg PO DAILY [facility] Last Admin: 11/11/17 09:34 Dose: Not Given Methylprednisolone (Solu-Medrol) 40 mg IV Q8 [facility] Stop: 11/11/17 14:01 Last Admin: 11/11/17 05:52 Dose: 40 mg Nicotine (Nicoderm Cq (Pbkc)) 21 mg TRANSDERM. DAILY [facility] Last Admin: 11/11/17 10:02 Dose: 21 mg Nitroglycerin (Nitrostat) 0.4 mg SUBLINGUAL Q5M PRN PRN Reason: Chest Pain Pantoprazole Sodium (Protonix) 20 mg PO DAILY [facility] Last Admin: 11/11/17 10:03 Dose: 20 mg Paroxetine HCl (Paxil) 40 mg PO DAILY [facility] Last Admin: 11/11/17 10:03 Dose: 40 mg Prednisone () 40 mg PO DAILY@0800 [facility] Ranolazine (Ranexa) 500 mg PO BID [facility] Last Admin: 11/11/17 09:36 Dose: Not Given Sodium Chloride () 5 - 30 ml IV UD PRN PRN Reason: SALINE FLUSH Last Admin: 11/11/17 08:47 Dose: 10 ml Medical Necessity - Tobacco Use Smoking Status: Current every day smoker Assessment/Plan All Active Problems (Last Reviewed 11/09/17 @ 05:19 by Lokesh Sethi MD) NSTEMI (non-ST elevated myocardial infarction) (Acute) COPD exacerbation (Acute) CAD (coronary artery disease) (Acute) Tobacco abuse (Acute) Congestive heart failure (Acute) 1. NSTEMI admitted with a complaint of chest pain. troponin was initially 1.35, trended down to 0.9->0.781. EKG showed minimal ST elevation in lateral leads but no reciprocal changes. ECho:EF of 25%, with stage 1 diastolic dysfunction, akinesis of the mid antterior, mid anteroseptal, anterior apex and inferior apex. RVSP was 39mmHg. scheduled for cardiac cath today on Coreg, aspirin, atorvastatin, plavix and imdur. Also on ranexa has been on therapeutic dose of lovenox 2/ Acute systolic heart failure BNP was 526 on admission; echo findings as listed above on IV lasix 40mg bid. Will switch to PO lasix after cardiac cath on losartan and carvedilol 3. Acute on chronic hypoxic respiratory failure due to COPD now on 4L of oxygen; on 2L at home BIPAP at night on IV zithromax. Will switch to PO zithromax after cardiac cath today; once she is no longer NPO. now on PO solumedrol titrate oxygen to maintain saturation >92% 4. ALIVIA Cr was 1.35 on admission; now down to 1.17 will continue hydration; baseline Cr is 0.73 5. CAD: currently being managed for NSTEMI. 2D echo as documented above. on medical management currently; with meds as listed under 1. DVT prophylaxis: lovenox This note was generated with [employer] dictation software. It may contain incorrect words, spelling, and punctuation that were not noted in checking the note before signing. Code Visit Inpatient E&M: 51480 [facility] Hosp L3
--- NOTE | 2017-11-11 10:12 | PN_ITS ---
Patient Problems: Active and Suspected Problems (Last Reviewed 11/09/17 @ 05:19 by Lokesh Sethi MD) NSTEMI (non-ST elevated myocardial infarction) (Acute) COPD exacerbation (Acute) CAD (coronary artery disease) (Acute) Tobacco abuse (Acute) Congestive heart failure (Acute) Subjective: Patient seen and examined. She has no complaints and chest pain is resolved. She denies any fever chills chest pain, any shortness of breath, abdominal pain , any diarrhea or vomiting. She complains of a cough which is chronic and is due to COPD, and is productive of clear sputum. Patient did require increasing amounts of oxygen and had to go up to 4 L of oxygen. Her baseline is around 2 L. Patient is awaiting cardiac cath today. Labs and vitals reviewed. Vitals/I&O's: Vital Signs Temp Pulse Resp BP Pulse Ox 97.3 F L 90 24 H 147/78 H 93 11/11/17 07:00 11/11/17 08:00 11/11/17 08:00 11/11/17 08:00 11/11/17 08:00 Oxygen Flow Rate (L/min) 4 Oxygen Delivery Method Nasal Cannula Weight: 154 lb 12.232 oz Body Mass Index (BMI) 27.8 Intake and Output for Last 24 Hours 11/09/17 11/10/17 11/11/17 23:59 23:59 23:59 Intake Total 1128.8 / 1128.8 1941 / 1941 432 / 432 Output Total 1300 / 1300 2550 / 2550 700 / 700 Balance -171.2 / -171.2 -609 / -609 -268 / -268 General: Alert, Oriented x3, Cooperative, No apparent distress HEENT: Atraumatic, PERRLA, EOMI, Normocephalic Oral: Moist Mucosa Neck: Supple, No JVD, Negative Carotid Bruits Lungs: Normal air movement, - - has mild wheezing in lower lung meza bilaterally Cardiovascular: Regular rate, Regular Rhythm, Normal S1, Normal S2, No murmurs Abdomen: Bowel Sounds Present, Soft, Non Tender, Non-Distended, No Hepato- splenomegaly Extremities: No clubbing, No cyanosis, No edema, Capillary Refill Less than 3 Seconds Skin: No rashes, No breakdown Musculoskeletal: No Tenderness to Palpation of Joints or Extremities Lymphatic: No Cervical, Supraclavicular, or Inguinal Adenopathy Neurological: Cranial nerves II-XII grossly intact Psych/Mental Status: Normal Affect, Appropriate, Alert and oriented to time, place, person, mood and affect Microbiology Past 72 Hours 11/09/17 07:45 Mucosa - Nose Influenza Types A,B Direct FA (CORY) - Final Laboratory Results 11/10/17 12:47: POC Glucose 144 H 11/10/17 21:54: POC Glucose 164 H 11/11/17 05:55: WBC 16.1 H, RBC 4.31, Hgb 12.5, Hct 39.5, MCV 91.6, MCH 29.0, MCHC 31.6 L, RDW 14.3, RDW Differential 48.8 H, Plt Count 279, MPV 10.5, Immature Gran % (Auto) 0.200, Neut % (Auto) 92.3 H, Lymph % (Auto) 5.8 L, [place] % (Auto) 1.6, Eos % (Auto) 0.1, Baso % (Auto) 0.0, Absolute Neuts (auto) 14.8 H , Absolute Lymphs (auto) 0.93, Total Counted Not Reportable 11/11/17 05:55: Sodium 142, Potassium 4.2, Chloride 105, Carbon Dioxide 28.0, Anion Gap 9, BUN 36 H, Creatinine 1.17 H, Estim Creat Clear Calc 34.38, Est GFR (MDRD) Af Amer 58 L, Est GFR (MDRD) Non-Af 48 L, BUN/Creatinine Ratio 30.8 H, Glucose 113 H, Calcium 9.0 11/11/17 05:55: PT 13.0, INR 1.0 11/11/17 05:55: Urine Color Yellow, Urine Clarity Clear, Urine pH 6.0, Ur Specific [place] 1.020, Urine Protein 30 H, Urine Glucose (UA) Normal, Urine Ketones Negative, Urine Occult Blood Negative, Urine Nitrite Negative, Urine Bilirubin Negative, Urine Urobilinogen Normal, Ur Leukocyte Esterase Negative, Urine RBC 0 SEEN, Urine WBC 0 SEEN, Ur Squamous Epith Cells 0-5 SEEN, Urine Bacteria 0 SEEN, Urine Mucus 0 SEEN Diagnostic Data Chest X-Ray 11/09/17 03:40 IMPRESSION: 2 mm stone in the distal left ureter at the level of the ureterovesical junction with changes of moderate acute obstructive uropathy. Electronically Signed: Gio Garg MD at 4:26 EDT Tel , Service support , ADDENDUM: 11/09/17 0452 Current Medications Amlodipine Besylate (Norvasc) 5 mg PO DAILY [facility] Last Admin: 11/11/17 09:36 Dose: Not Given Aspirin (Aspirin, Baby) 81 mg PO DAILY@0800 [facility] Last Admin: 11/11/17 05:52 Dose: 81 mg Atorvastatin Calcium (Lipitor) 40 mg PO QHS [facility] Last Admin: 11/10/17 21:32 Dose: 40 mg Bupropion HCl (Wellbutrin Xl) 150 mg PO DAILY [facility] Last Admin: 11/11/17 10:04 Dose: 150 mg Buspirone HCl (Buspar) 15 mg PO DAILY [facility] Last Admin: 11/11/17 10:02 Dose: 15 mg Carvedilol (Coreg) 3.125 mg PO BID [facility] Last Admin: 11/11/17 09:34 Dose: Not Given Chlorhexidine Gluconate () 1 each TOPICAL DAILY [facility] Last Admin: 11/11/17 06:03 Dose: 1 each Clopidogrel Bisulfate (Plavix) 75 mg PO DAILY [facility] Last Admin: 11/11/17 05:52 Dose: 75 mg Cyclobenzaprine HCl (Flexeril) 10 mg PO DAILY [facility] Last Admin: 11/11/17 10:02 Dose: 10 mg Diphenhydramine HCl (Benadryl) 25 mg PO Q6H PRN PRN PRN Reason: ITCHING Enoxaparin Sodium (Lovenox) 70 mg 1 mg/kg (70 mg) SC Q12 [facility] Last Admin: 11/11/17 09:35 Dose: Not Given Ergocalciferol (Vitamin D) 50,000 unit PO [facility] Fenofibrate (Tricor) 145 mg PO DAILY [facility] Last Admin: 11/11/17 09:53 Dose: Not Given Furosemide (Lasix) 40 mg IV BID@1000,1800 [facility] Last Admin: 11/11/17 09:35 Dose: Not Given Gabapentin (Neurontin) 300 mg PO BIDCM [facility] Last Admin: 11/11/17 08:49 Dose: Not Given Nitroglycerin/Dextrose 25 mg/ (N/A) 250 mls @ 3 mls/hr IV .[id number] NAIF PRN Reason: 5 MCG/MIN Last Admin: 11/09/17 04:17 Dose: 3 mls/hr Sodium Chloride () 250 mls @ 15 mls/hr IV .[id number] PRN PRN Reason: SALINE FLUSH Nitroglycerin/Dextrose () 250 mls @ 3 mls/hr IV .[id number] NAIF; 5 MCG/MIN PRN Reason: Protocol Last Admin: 11/09/17 10:57 Dose: Not Given Azithromycin 500 mg/ Dextrose 255 mls @ 250 mls/hr IV Q24 [facility] Stop: 11/11/17 11:02 Last Admin: 11/11/17 08:47 Dose: 250 mls/hr Sodium Chloride () 1,000 mls @ 15 mls/hr IV .Q48H NAIF PRN Reason: KVO Last Admin: 11/11/17 05:52 Dose: 15 mls/hr Ipratropium [place] (Atrovent) 0.5 mg INHALATION Q4H.RT PRN PRN Reason: WHEEZING Last Admin: 11/11/17 06:51 Dose: 0.5 mg Isosorbide Mononitrate (Imdur) 120 mg PO DAILY [facility] Last Admin: 11/11/17 09:35 Dose: Not Given Losartan Potassium (Cozaar) 50 mg PO DAILY [facility] Last Admin: 11/11/17 09:34 Dose: Not Given Methylprednisolone (Solu-Medrol) 40 mg IV Q8 [facility] Stop: 11/11/17 14:01 Last Admin: 11/11/17 05:52 Dose: 40 mg Nicotine (Nicoderm Cq (Pbkc)) 21 mg TRANSDERM. DAILY [facility] Last Admin: 11/11/17 10:02 Dose: 21 mg Nitroglycerin (Nitrostat) 0.4 mg SUBLINGUAL Q5M PRN PRN Reason: Chest Pain Pantoprazole Sodium (Protonix) 20 mg PO DAILY [facility] Last Admin: 11/11/17 10:03 Dose: 20 mg Paroxetine HCl (Paxil) 40 mg PO DAILY [facility] Last Admin: 11/11/17 10:03 Dose: 40 mg Prednisone () 40 mg PO DAILY@0800 [facility] Ranolazine (Ranexa) 500 mg PO BID [facility] Last Admin: 11/11/17 09:36 Dose: Not Given Sodium Chloride () 5 - 30 ml IV UD PRN PRN Reason: SALINE FLUSH Last Admin: 11/11/17 08:47 Dose: 10 ml Medical Necessity - Tobacco Use Smoking Status: Current every day smoker Assessment/Plan All Active Problems (Last Reviewed 11/09/17 @ 05:19 by Lokesh Sethi MD) NSTEMI (non-ST elevated myocardial infarction) (Acute) COPD exacerbation (Acute) CAD (coronary artery disease) (Acute) Tobacco abuse (Acute) Congestive heart failure (Acute) 1. NSTEMI * admitted with a complaint of chest pain. * troponin was initially 1.35, trended down to 0.9->0.781. * EKG showed minimal ST elevation in lateral leads but no reciprocal changes. * ECho:EF of 25%, with stage 1 diastolic dysfunction, akinesis of the mid antterior, mid anteroseptal, anterior apex and inferior apex. RVSP was 39mmHg. * scheduled for cardiac cath today * on Coreg, aspirin, atorvastatin, plavix and imdur. Also on ranexa * has been on therapeutic dose of lovenox * 2/ Acute systolic heart failure * BNP was 526 on admission; echo findings as listed above * on IV lasix 40mg bid. Will switch to PO lasix after cardiac cath * on losartan and carvedilol * 3. Acute on chronic hypoxic respiratory failure due to COPD * now on 4L of oxygen; on 2L at home * BIPAP at night * on IV zithromax. Will switch to PO zithromax after cardiac cath today; once she is no longer NPO. * now on PO solumedrol * titrate oxygen to maintain saturation >92% * 4. ALIVIA * Cr was 1.35 on admission; now down to 1.17 * will continue hydration; baseline Cr is 0.73 * 5. CAD: * currently being managed for NSTEMI. 2D echo as documented above. * on medical management currently; with meds as listed under 1. * DVT prophylaxis: lovenox This note was generated with [employer] software. It may contain incorrect words, spelling, and punctuation that were not noted in checking the note before signing. Code Visit Inpatient E&M: 89179 [facility] Hosp L3
[2017-11-11 10:15] LABS: Bedside Glucose 160 mg/dL (70-110)
--- NOTE | 2017-11-11 10:37 | NURSING ---
Jeramy Rowan from [employer] [facility] here to take patient to procedure. Brief report given.
[2017-11-11 12:01] LABS: ACT Activated Clotting Time 202 sec (74-137)
[2017-11-11 14:16] LABS: ACT Activated Clotting Time 136 sec (74-137)
[2017-11-11] MEDS: LEVALBUTEROL HCL 0.63 MG/3 ML VIAL.NEB IH ×2 (15:11→19:37)
--- NOTE | 2017-11-11 15:58 | EKG12_ITS ---
Test Reason : AM Blood Pressure : / mmHG Vent. Rate : 071 BPM Atrial Rate : 071 BPM P-R Int : 152 ms QRS Dur : 092 ms QT Int : 458 ms P-R-T Axes : 077 032 174 degrees QTc Int : 497 ms Normal sinus rhythm with sinus arrhythmia ST & Marked T wave abnormality, consider anterolateral ischemia Prolonged QT Abnormal ECG When compared with ECG of 11-NOV-2017 14:17, MANUAL COMPARISON REQUIRED, DATA IS UNCONFIRMED Confirmed by JOÃO IVEY, ANGIE ([id number]), videotape editor MACKENZIE TORRES ([id number]) on 11/13/2017 2:06:09 PM Referred By: SHEBA Confirmed By:ANGIE MOYER MD
[2017-11-11] MEDS: 0.9% Normal Saline 1,000 ML 150 ML IV (16:16)
--- NOTE | 2017-11-11 16:32 | CRPHASE1 ---
Patient Data/Charges Phase II Referral:: [facility] Start Phase II:: FOLLOWING OFFICE VISIT WITH CARDIOLOGY Risk Factors/Lifestyle Smoking Status: Current every day smoker Hx Hypertension: Yes Hx Diabetes Mellitus Type 2: Yes Hx Metabolic Disorders: Yes Hx Dyslipidemia: Yes Hx Obesity: Yes Height: 5 ft 2 in - BMI 28.3 Post-Menopausal: Yes Stress: Home/Family Risk Factor for Sedentary Lifestyle: Highest Risk Family History: Family History (Last Reviewed 11/09/17 @ 05:19 by Lokesh Sethi MD) Mother CAD (coronary artery disease) Hypertension Sister CAD (coronary artery disease) Myocardial infarction Family History: COPD, Diabetes, High Cholesterol, Hypertension, Pulmonary Disease Laboratory Values: Cardiac Rehab Phase I Labs Triglycerides 219 mg/dL (-199) H 11/09/17 06:26 Cholesterol 259 mg/dL (200) H 11/09/17 06:26 LDL Cholesterol 176 mg/dL (0-130) H 11/09/17 06:26 HDL Cholesterol 39 mg/dL (40-) L 11/09/17 06:26 Phase I Education Given On:: [place], Nutrition, Antiplatelet medication, Smoking cessation, Diabetes - Type II Issues Affecting Care:: None Knowledge of Condition:: Yes Learning Preferences: Verbal, Written - FAMILY AT BEDSIDE Medical/Surgical History COPD:: Yes MARISABEL:: Yes Diabetes:: Yes Diabetes Type II:: Yes Hypertension:: Yes Dyslipidemia:: Yes PVD:: Yes GERD:: Yes Other Medical/Surgical Issues:: FIBROMYALGIA Discharge/Home/Social Eval Discharge Disposition: Home
--- NOTE | 2017-11-11 16:35 | CRPHASE1_ITS ---
Patient Data/Charges Phase II Referral:: [facility] Start Phase II:: FOLLOWING OFFICE VISIT WITH CARDIOLOGY Risk Factors/Lifestyle Smoking Status: Current every day smoker Hx Hypertension: Yes Hx Diabetes Mellitus Type 2: Yes Hx Metabolic Disorders: Yes Hx Dyslipidemia: Yes Hx Obesity: Yes Height: 5 ft 2 in - BMI 28.3 Post-Menopausal: Yes Stress: Home/Family Risk Factor for Sedentary Lifestyle: Highest Risk Family History: Family History (Last Reviewed 11/09/17 @ 05:19 by Lokesh Sethi MD) Mother CAD (coronary artery disease) Hypertension Sister CAD (coronary artery disease) Myocardial infarction Family History: COPD, Diabetes, High Cholesterol, Hypertension, Pulmonary Disease Laboratory Values: Cardiac Rehab Phase I Labs Triglycerides 219 mg/dL (-199) H 11/09/17 06:26 Cholesterol 259 mg/dL (200) H 11/09/17 06:26 LDL Cholesterol 176 mg/dL (0-130) H 11/09/17 06:26 HDL Cholesterol 39 mg/dL (40-) L 11/09/17 06:26 Phase I Education Given On:: [place], Nutrition, Antiplatelet medication, Smoking cessation, Diabetes - Type II Issues Affecting Care:: None Knowledge of Condition:: Yes Learning Preferences: Verbal, Written - FAMILY AT BEDSIDE Medical/Surgical History COPD:: Yes MARISABEL:: Yes Diabetes:: Yes Diabetes Type II:: Yes Hypertension:: Yes Dyslipidemia:: Yes PVD:: Yes GERD:: Yes Other Medical/Surgical Issues:: FIBROMYALGIA Discharge/Home/Social Eval Discharge Disposition: Home
--- NOTE | 2017-11-11 16:37 | CRPH1.INST_ITS ---
General Education CAD and cardiac anatomy and function:: Patient communicates acknowledgment - FAMILY AT BEDSIDE, Family communicates acknowledgment Explanation of diagnoses and procedures:: Patient communicates acknowledgment, Family communicates acknowledgment Sign/Symptoms of OK:: Patient communicates acknowledgment, Family communicates acknowledgment Antiplatelet therapy: Patient communicates acknowledgment, Family communicates acknowledgment Proper use of NTG-SL: Patient communicates acknowledgment, Family communicates acknowledgment Emergency procedures and activation of EMS: Patient communicates acknowledgment , Family communicates acknowledgment Compliance of all prescribed medications: Patient communicates acknowledgment, Family communicates acknowledgment Smoking Patient Nicotine/Smoking Risk Factors Are:: Cigarettes Recommendations Include:: Smoking cessation strategies/Smoking packet, Second- hand smoke recommendation, Participation in a smoking cessation program Nicotine/Smoking Response Code:: Patient communicates acknowledgment, Family communicates acknowledgment Dyslipidemia Patient Dyslipidemia Risk Factors Are:: Total Cholesterol, Triglycerides, HDL, LDL Recommendations Include:: Lipid profile provided, Reviewed NCEP/ATP guidelines, Therapeutic Lifestyle Change dietary guidelines Dyslipidemia Response Code:: Patient communicates acknowledgment, Family communicates acknowledgment Overweight/Obesity Patient Overweight/Obesity Risk Factors Are:: Overweight = 26-29 Recommendations Include:: Weight loss of 5-10%, Reduced calorie diet, Exercise 5 -7 times/week Overweight/Obesity:: Patient communicates acknowledgment, Family communicates acknowledgment Hypertension Recommendations Include:: BP <130/80 if diabetic, DASH dietary guidelines, Decrease/maintain normal body weight, Moderation of ETOH Hypertension:: Patient communicates acknowledgment, Family communicates acknowledgment Heart Disease Recommendations Include:: Educated family members of their risk, Educated family members of importance of prevention of heart disease Heart Disease Response Code:: Patient communicates acknowledgment, Family communicates acknowledgment Diabetes Patient Diabetes Risk Factors Are:: Elevated blood sugars Recommendations Include:: Maintain fasting blood sugars 70-110 md/dL, Maintain HgbA1c of 6% or less, Monitor blood sugar as prescribed, Diabetic dietary guidelines, Decrease/maintain body weight Diabetes:: Patient communicates acknowledgment, Family communicates acknowledgment Metabolic Syndrome Patient Metabolic Syndrome Risk Factors Are [3 of 5]:: Fasting blood sugar > 100 mg/dL, Waist circumference > 35 [female] or 40 [male], High triglyceride > 150, Hypertension, Low HDL <40 [male] or < 50 [female] Recommendations Include:: Reinforce compliance to risk factor modifications, Patient is diabetic, Encouraged follow-up with Primary Care Physician Metabolic Syndrome Response Code:: Patient communicates acknowledgment, Family communicates acknowledgment Sedentary Patient Sedentary Risk Factors Are:: Lack of regular exercise Recommendations Include:: Aerobic exercise 5-7 times/week for 20-30 minutes continuously, Benefits of regular exercise, Discussed home walking program, Monitored Outpatient Cardiac Rehab Sedentary Response Code:: Patient communicates acknowledgment, Family communicates acknowledgment Stress Recommendations Include:: Identification of stressors, and assessment of coping skills, Stress management techniques Stress Response Code:: Patient communicates acknowledgment, Family communicates acknowledgment
[2017-11-11] MEDS: Nitroglycerin Infusion 250 ML 3 MG IV (17:29)
[2017-11-11] MEDS: Morphine 4 MG/ML Syringe IV (17:44)
[2017-11-11] MEDS: Ranolazine 500 MG Tablet PO (21:26)
[2017-11-11] MEDS: Atorvastatin Calcium 40 MG Tablet PO (21:27)
[2017-11-11] MEDS: Gabapentin 300 MG Capsule PO (21:27)
[2017-11-11] MEDS: Carvedilol 3.125 MG TABLET PO (21:28)
[2017-11-11] MEDS: Furosemide 40 MG/4 ML Vial IV (21:29)
[2017-11-12] VITALS (20 sets, daily range): BP systolic 92–143; BP diastolic 35–61; PULSE 63–97; RESP 14–25; TEMP 36.1–36.6; O2SAT 90–97
[2017-11-12 06:48] LABS: Absolute Neutrophil Count 7.9 X10^3/uL (2.0-7.7); Basophil# 0.01 X10^3/uL; Basophil% 0.1 % (0-1); Hematocrit 39.7 % (37-47); Hemoglobin 12.4 g/dl (12.0-15.0); Lymphocyte % 20.3 % (19-41); Mean Corp Hgb Conc 31.2 g/gl (32-36); Mean Corpuscular Hgb 29.2 pg (27.0-32.0); Mean Corpuscular Volume 93.4 fL (81-99); Mean Platelet Vol. 10.1 fl (6.2-12.0); Monocyte# 1.08 X10^3/uL; Monocyte% 9.5 % (0-10); Neutrophil # 7.93 X10^3/uL (2.7-7.7); Neutrophil % 69.8 % (47-70); Platelet Count 276 K/mm3 (150-450); RBC Distribution Width CV 14.6 % (11.6-14.6); RBC Distribution Width SD 49.2 fl (35.1-43.9); Red Blood Count 4.25 M/mm3 (4.2-5.4); White Blood Count 11.4 K/mm3 (4.4-11.0)
[2017-11-12 06:51] LABS: ALB/GLOB Ratio 1.2 RATIO (0.9-2.4); AST(SGOT) 8 U/L (15-37); Alanine Aminotransfer ALT/SGPT 13 U/L (13-56); Albumin, Serum 3.7 g/dL (3.2-5.0); Alkaline Phosphatase 64 U/L (45-117); Anion Gap 11 (5-15); BUN 31 mg/dL (7-18); Calcium,Total 8.5 mg/dL (8.5-10.1); Chloride 105 mmol/L (98-107); Creatinine, Serum 0.97 mg/dL (0.55-1.02); EST Glomerular Filtration Rate 60 mL/min (>60); Est Glom Filt Rate - Afr Amer 73 mL/min (>60); Estimated Creatinine Clearance 41.46 ml/min; Globulin 3.2 g/dL (2.2-4.2); Glucose 91 mg/dL (74-106); POSITIVE COUNT NO; POSITIVE DIFFERENTIAL NO; POSITIVE MORPHOLOGY NO; Potassium 3.6 mmol/L (3.5-5.1); Protein, Total 6.9 g/dL (6.4-8.2); Sodium Level 143 mmol/L (136-145)
[2017-11-12] MEDS: LEVALBUTEROL HCL 0.63 MG/3 ML VIAL.NEB IH ×2 (06:54→11:42)
[2017-11-12] MEDS: amLODIPine 5 MG Tablet PO (09:26)
[2017-11-12] MEDS: Losartan Potassium 50 MG Tablet PO (09:26)
[2017-11-12] MEDS: Fenofibrate 145 MG Tablet PO (09:26)
[2017-11-12] MEDS: Ranolazine 500 MG Tablet PO (09:26)
[2017-11-12] MEDS: buPROPion (XL) 150 MG TABLET.XL PO (09:26)
[2017-11-12] MEDS: predniSONE 20 MG Tablet 40 MG PO (09:26)
[2017-11-12] MEDS: Carvedilol 3.125 MG TABLET PO (09:26)
[2017-11-12] MEDS: busPIRone 15 MG TABLET PO (09:27)
[2017-11-12] MEDS: Clopidogrel Bisulfate 75 MG Tablet PO (09:27)
[2017-11-12] MEDS: Gabapentin 300 MG Capsule PO (09:27)
[2017-11-12] MEDS: Aspirin 81 MG TAB.CHEW PO (09:27)
[2017-11-12] MEDS: Pantoprazole Sodium 20 MG Tablet PO (09:27)
--- NOTE | 2017-11-12 09:31 | PCM.PN.CARD ---
Subjectve: Patient continues to slowly improve. Her pulmonary function appears to be markedly improve over baseline. She denies any chest pain or anginal symptoms. She feels much better since her angioplasty. Right groin is clean/dry/intact with mild amount of ecchymosis but no thrills or bruit. Her left groin is clean/dry/intact without evidence of hematoma, bruit. EKG shows normal sinus rhythm, no acute changes. Telemetry shows normal sinus rhythm with rare PVC. Hemoglobin and creatinine are within nominal limits. Objective: Vital Signs Temp Pulse Resp BP Pulse Ox 97.8 F 87 20 H 126/46 H 93 11/12/17 08:00 11/12/17 09:00 11/12/17 09:00 11/12/17 09:00 11/12/17 09:00 Oxygen Flow Rate (L/min) 3 Oxygen Delivery Method Nasal Cannula Weight: 152 lb 5.431 oz Body Mass Index (BMI) 27.8 Intake and Output for Last 24 Hours 11/10/17 11/11/17 11/12/17 23:59 23:59 23:59 Intake Total 1941 / 1941 1485.4 / 1485.4 666.2 / 666.2 Output Total 2550 / 2550 1500 / 1500 2100 / 2100 Balance -609 / -609 -14.6 / -14.6 -1433.8 / -1433.8 General: Awake, Alert, Oriented x 3 HEENT: PERRL, EOMI, Sclera Non Icteric Neck: Supple, Good ROM, No Lymph Node Enlargement Lungs: Rales - Jaspreet Bases Cardiovascular: Regular Rhythm, Normal S1, Normal S2, No Murmurs, No Rubs, No Gallops Vascular: No Carotid Bruits, Normal Femoral Pulses, Normal Radial Pulses, Normal Dorsalis Pedal Pulse, Normal Posterior Tibial Pulses Abdomen: Bowel Sounds Present, Soft, Non Tender, No HSM, No Organomegaly Extremities: No Cyanosis, No Clubbing, No edema Neurological: No Focal Motor or Sensory Deficit 11/12/17 06:25: WBC 11.4 H, RBC 4.25, Hgb 12.4, Hct 39.7, MCV 93.4, MCH 29.2, MCHC 31.2 L, RDW 14.6, RDW Differential 49.2 H, Plt Count 276, MPV 10.1, Immature Gran % (Auto) 0.300, Neut % (Auto) 69.8, Lymph % (Auto) 20.3, [place] % (Auto) 9.5, Eos % (Auto) 0.0, Baso % (Auto) 0.1, Absolute Neuts (auto) 7.9 H, Total Counted Not Reportable 11/12/17 06:25: Sodium 143, Potassium 3.6, Chloride 105, Carbon Dioxide 27.0, Anion Gap 11, BUN 31 H, Creatinine 0.97, Est GFR (MDRD) Af Amer 73, Est GFR (MDRD) Non-Af 60, BUN/Creatinine Ratio 32.0 H, Glucose 91, Calcium 8.5, Total Bilirubin 0.30 Rhythm: EKG: ECHO: Stress Test: Cardiac Cath: PCI: CT Surgery: Holter monitor: EPS: PPM: CXR: Chest CT Scan: Medical Necessity - Tobacco Use Smoking Status: Current every day smoker Assessment/Plan #1. Coronary artery disease: The patient presents with what appears to be new onset congestive heart failure with akinetic anterior wall by echocardiogram superimposed upon an EKG which shows loss of R-wave forces and anterolateral J-point elevation, shortness of breath, orthopnea, PND, and abnormal troponin. I reviewed the patient's catheterization films from her more recent cath in July 2016 where her left main stent was patent. She also had complex coronary disease of her proximal left circumflex and ostial obtuse marginal #1 as well as diffuse possibly significant mid and distal RCA stenosis as well. Her ejection fraction at that time was found to be normal. It is unclear whether the patient has had a previous undetected anterior wall myocardial infarction versus Takostbos cardiomyopathy. 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 Would recommend reduction of her metoprolol until her heart failure has been normalized. Patient has not required BiPAP therapy. Will treat the patient's respiratory distresswith nebulizer therapy, followed by resumption of her MDIs. Unfortunately she is unable to tolerate albuterol. She is already been started on Solu-Medrol, and I have asked her to obtain her albuterol substitute nebulizer to be given to her in the hospital from home. Her troponins are trending downwards, suggesting she has ischemia from her stress of her event. Her EKG suggests possible aneurysm of the anterior wall with her ST segment changes as well vs Takostubos CMP. LHC done on 11/11/17 via the left groin as her right common femoral artery is occluded demonstrated patent left main stent, nonobstructive coronary disease of her LAD and left circumflex, and probably significant proximal mid and distal RCA stenosis which appears to have progressed from her last catheterization several years ago. Patient underwent successful angioplasty and drug-eluting stenting ?2 to the proximal, mid and distal RCA with an excellent result. Patient had mild hematoma in the right groin after the sheath was pulled which was treated with manual compression and is now soft, clean/dry/intact. Her left groin is stable. Her LV function on catheterization appears to have been improved suggesting the patient had transient LV dysfunction as a result of her acute psychosocial situation the night of her event. Recommend continuing baby aspirin, Plavix, and afterload reducing agents such as Cozaar, as well as diuretic therapy such as Lasix 40 mg p.o. daily. Patient will follow-up with Dr. Burns going forward for her request. I believe the patient would benefit from cardiopulmonary rehab therapy which will be done as an outpatient. We will repeat her echocardiogram in 4 months time to determine if her LV function has improved. 2. COPD: The patient has evidence on her chest x-ray of chronic bilateral interstitial disease as well as apical blebbing. She has flattening of her diaphragms suggesting her COPD is significant and she is on chronic O2 therapy. 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 Strongly recommended the patient discontinue all tobacco products, and recommend nicotine patch 21 mg daily. 3. Hyperlipidemia: The patient is on a combination of gemfibrozil and Lipitor. Continue present management. 4. Thank you very much for the opportunity to participate in the cardiac care of your patient. Patient may be discharged home from a cardiology standpoint. Code Visit Inpatient E&M: 54070 Subs Hosp L2
--- NOTE | 2017-11-12 09:37 | PN.CARD_ITS ---
Subjectve: Patient continues to slowly improve. Her pulmonary function appears to be markedly improve over baseline. She denies any chest pain or anginal symptoms. She feels much better since her angioplasty. Right groin is clean/dry/intact with mild amount of ecchymosis but no thrills or bruit. Her left groin is clean /dry/intact without evidence of hematoma, bruit. EKG shows normal sinus rhythm , no acute changes. Telemetry shows normal sinus rhythm with rare PVC. Hemoglobin and creatinine are within nominal limits. Objective: Vital Signs Temp Pulse Resp BP Pulse Ox 97.8 F 87 20 H 126/46 H 93 11/12/17 08:00 11/12/17 09:00 11/12/17 09:00 11/12/17 09:00 11/12/17 09:00 Oxygen Flow Rate (L/min) 3 Oxygen Delivery Method Nasal Cannula Weight: 152 lb 5.431 oz Body Mass Index (BMI) 27.8 Intake and Output for Last 24 Hours 11/10/17 11/11/17 11/12/17 23:59 23:59 23:59 Intake Total 1941 / 1941 1485.4 / 1485.4 666.2 / 666.2 Output Total 2550 / 2550 1500 / 1500 2100 / 2100 Balance -609 / -609 -14.6 / -14.6 -1433.8 / -1433.8 General: Awake, Alert, Oriented x 3 HEENT: PERRL, EOMI, Sclera Non Icteric Neck: Supple, Good ROM, No Lymph Node Enlargement Lungs: Rales - Jaspreet Bases Cardiovascular: Regular Rhythm, Normal S1, Normal S2, No Murmurs, No Rubs, No Gallops Vascular: No Carotid Bruits, Normal Femoral Pulses, Normal Radial Pulses, Normal Dorsalis Pedal Pulse, Normal Posterior Tibial Pulses Abdomen: Bowel Sounds Present, Soft, Non Tender, No HSM, No Organomegaly Extremities: No Cyanosis, No Clubbing, No edema Neurological: No Focal Motor or Sensory Deficit 11/12/17 06:25: WBC 11.4 H, RBC 4.25, Hgb 12.4, Hct 39.7, MCV 93.4, MCH 29.2, MCHC 31.2 L, RDW 14.6, RDW Differential 49.2 H, Plt Count 276, MPV 10.1, Immature Gran % (Auto) 0.300, Neut % (Auto) 69.8, Lymph % (Auto) 20.3, [place] % ( Auto) 9.5, Eos % (Auto) 0.0, Baso % (Auto) 0.1, Absolute Neuts (auto) 7.9 H, Total Counted Not Reportable 11/12/17 06:25: Sodium 143, Potassium 3.6, Chloride 105, Carbon Dioxide 27.0, Anion Gap 11, BUN 31 H, Creatinine 0.97, Est GFR (MDRD) Af Amer 73, Est GFR ( MDRD) Non-Af 60, BUN/Creatinine Ratio 32.0 H, Glucose 91, Calcium 8.5, Total Bilirubin 0.30 Rhythm: EKG: ECHO: Stress Test: Cardiac Cath: PCI: CT Surgery: Holter monitor: EPS: PPM: CXR: Chest CT Scan: Medical Necessity - Tobacco Use Smoking Status: Current every day smoker Assessment/Plan #1. Coronary artery disease: The patient presents with what appears to be new onset congestive heart failure with akinetic anterior wall by echocardiogram superimposed upon an EKG which shows loss of R-wave forces and anterolateral J- point elevation, shortness of breath, orthopnea, PND, and abnormal troponin. I reviewed the patient's catheterization films from her more recent cath in July 2016 where her left main stent was patent. She also had complex coronary disease of her proximal left circumflex and ostial obtuse marginal #1 as well as diffuse possibly significant mid and distal RCA stenosis as well. Her ejection fraction at that time was found to be normal. It is unclear whether the patient has had a previous undetected anterior wall myocardial infarction versus Takostbos cardiomyopathy. 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 Would recommend reduction of her metoprolol until her heart failure has been normalized. Patient has not required BiPAP therapy. Will treat the patient's respiratory distresswith nebulizer therapy, followed by resumption of her MDIs. Unfortunately she is unable to tolerate albuterol. She is already been started on Solu-Medrol, and I have asked her to obtain her albuterol substitute nebulizer to be given to her in the hospital from home. Her troponins are trending downwards, suggesting she has ischemia from her stress of her event. Her EKG suggests possible aneurysm of the anterior wall with her ST segment changes as well vs Takostubos CMP. LHC done on 11/11/17 via the left groin as her right common femoral artery is occluded demonstrated patent left main stent, nonobstructive coronary disease of her LAD and left circumflex, and probably significant proximal mid and distal RCA stenosis which appears to have progressed from her last catheterization several years ago. Patient underwent successful angioplasty and drug-eluting stenting ?2 to the proximal, mid and distal RCA with an excellent result. Patient had mild hematoma in the right groin after the sheath was pulled which was treated with manual compression and is now soft, clean/dry/intact. Her left groin is stable. Her LV function on catheterization appears to have been improved suggesting the patient had transient LV dysfunction as a result of her acute psychosocial situation the night of her event. Recommend continuing baby aspirin, Plavix, and afterload reducing agents such as Cozaar, as well as diuretic therapy such as Lasix 40 mg p.o. daily. Patient will follow-up with Dr. Burns going forward for her request. I believe the patient would benefit from cardiopulmonary rehab therapy which will be done as an outpatient. We will repeat her echocardiogram in 4 months time to determine if her LV function has improved. 2. COPD: The patient has evidence on her chest x-ray of chronic bilateral interstitial disease as well as apical blebbing. She has flattening of her diaphragms suggesting her COPD is significant and she is on chronic O2 therapy. 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 Strongly recommended the patient discontinue all tobacco products, and recommend nicotine patch 21 mg daily. 3. Hyperlipidemia: The patient is on a combination of gemfibrozil and Lipitor. Continue present management. 4. Thank you very much for the opportunity to participate in the cardiac care of your patient. Patient may be discharged home from a cardiology standpoint. Code Visit Inpatient E&M: 71283 Subs Hosp L2
--- NOTE | 2017-11-12 09:43 | PCM.DC.SUM ---
Discharge Date and Diagnosis Date of Admission: 11/09/17 Date of Discharge: 11/12/17 - Primary Discharge Diagnosis Active and Suspected Problems (Last Reviewed 11/09/17 @ 05:19 by Lokesh Sethi MD) NSTEMI (non-ST elevated myocardial infarction) (Acute) COPD exacerbation (Acute) CAD (coronary artery disease) (Acute) Successful PTCA/SUSAN of the of mid/distal RCA with a 2.25 x 38 Promus Synergy, post dilated proximally with a 3.0 x 12 NC balloon at 8 safia (2.5mm); 75%-->0%, no dissection. Successful PTCA/SUSAN of the proximal RCA with a 2.5 x 20 Promus Synergy, post dilated with a 3.0 x 12 at 14 safia; 75%-->0%, no dissection. Tobacco abuse (Acute) Congestive heart failure (Acute) - Secondary Discharge Diagnosis Chronic Problems (Last Reviewed 11/09/17 @ 05:19 by Lokesh Sethi MD) Nonrheumatic tricuspid (valve) insufficiency (Chronic) Nonrheumatic mitral valve insufficiency (Chronic) Nicotine dependence, cigarettes, uncomplicated (Chronic) Hypertension (Chronic) Hyperlipidemia (Chronic) Atherosclerosis of [place] coronary artery of [place] heart without angina pectoris (Chronic) PTCA/SUSAN to ostium of LMT 10/01/2014 @[facility]; Peripheral vascular disease (Chronic) SOB (shortness of breath) (Chronic) Hospital Course and Treatment Imaging Results: Diagnostic Data Chest X-Ray 11/09/17 03:40 IMPRESSION: 2 mm stone in the distal left ureter at the level of the ureterovesical junction with changes of moderate acute obstructive uropathy. Electronically Signed: Gio Gagr MD at 4:26 EDT Tel , Service support , ADDENDUM: 11/09/17 0452 Diagnostic Data Chest X-Ray 11/09/17 03:40 IMPRESSION: 2 mm stone in the distal left ureter at the level of the ureterovesical junction with changes of moderate acute obstructive uropathy. Electronically Signed: Gio Garg MD at 4:26 EDT Tel , Service support , ADDENDUM: 11/09/17 0452 Laboratory Tests 11/09/17 11/09/17 11/09/17 03:23 03:23 06:26 WBC 18.0 H RBC 5.28 Hgb 15.9 H Hct 48.0 H MCV 90.9 MCH 30.1 MCHC 33.1 RDW 14.3 RDW Differential 46.8 H Plt Count 402 MPV 10.7 Immature Gran % (Auto) 0.500 Neut % (Auto) 67.2 Lymph % (Auto) 25.0 [place] % (Auto) 5.7 Eos % (Auto) 1.2 Baso % (Auto) 0.4 Absolute Neuts (auto) 12.1 H Absolute Lymphs (auto) 4.49 Total Counted Not Reportable Differential Comment SCANNED PT INR Activated Clotting Time Specimen Type Sample Site pH Bicarbonate Actual POC Total CO2 Base Excess O2 Saturation O2 % ABG pCO2 ABG pO2 [place] Test VBG pH VBG pO2 VBG O2 Sat (Calc) VBG O2 Content VBG Base Excess POC Mix VBG pCO2 Pt Tmp Respiration Rate O2 Delivery Device Liter Flow EPAP IPAP Blood Gas Notified Whom Blood Gas Notified Time Sodium 142 Potassium 4.6 Chloride 106 Carbon Dioxide 22.0 Anion Gap 14 BUN 22 H Creatinine 1.35 H Estim Creat Clear Calc 29.79 Est GFR (MDRD) Af Amer 50 L Est GFR (MDRD) Non-Af 41 L BUN/Creatinine Ratio 16.3 Glucose 297 H Calcium 8.6 Total Bilirubin Direct Bilirubin AST ALT Alkaline Phosphatase Troponin I 1.350 H* B-Natriuretic Peptide 526.4 H Total Protein Albumin Globulin Albumin/Globulin Ratio Triglycerides Cholesterol LDL Cholesterol VLDL Cholesterol HDL Cholesterol TSH Urine Color Urine Clarity Urine pH Ur Specific [place] Urine Protein Urine Glucose (UA) Urine Ketones Urine Occult Blood Urine Nitrite Urine Bilirubin Urine Urobilinogen Ur Leukocyte Esterase Urine RBC Urine WBC Ur Squamous Epith Cells Urine Bacteria Urine Mucus POC Glucose 11/09/17 11/09/17 11/09/17 06:26 06:26 07:48 WBC RBC Hgb Hct MCV MCH MCHC RDW RDW Differential Plt Count MPV Immature Gran % (Auto) Neut % (Auto) Lymph % (Auto) [place] % (Auto) Eos % (Auto) Baso % (Auto) Absolute Neuts (auto) Absolute Lymphs (auto) Total Counted Differential Comment PT INR Activated Clotting Time Specimen Type DIEGO Sample Site L Brachial pH Bicarbonate Actual POC Total CO2 Base Excess O2 Saturation O2 % 40 ABG pCO2 ABG pO2 [place] Test VBG pH 7.31 L VBG pO2 30 VBG O2 Sat (Calc) 51 VBG O2 Content 28 VBG Base Excess 0 POC Mix VBG pCO2 Pt Tmp 52.2 H Respiration Rate 14 O2 Delivery Device Bi / C PAP Liter Flow EPAP 4 IPAP 8 Blood Gas Notified Whom HOSP Blood Gas Notified Time 740 Sodium 141 Potassium 3.9 Chloride 108 H Carbon Dioxide 22.0 Anion Gap 11 BUN 23 H Creatinine 1.27 H Estim Creat Clear Calc 31.67 Est GFR (MDRD) Af Amer 53 L Est GFR (MDRD) Non-Af 44 L BUN/Creatinine Ratio 18.1 Glucose 103 Calcium 8.5 Total Bilirubin 0.20 Direct Bilirubin < 0.05 AST 21 ALT 21 Alkaline Phosphatase 96 Troponin I 0.902 H* B-Natriuretic Peptide Total Protein 8.0 Albumin 3.5 Globulin 4.5 H Albumin/Globulin Ratio 0.8 L Triglycerides 219 H Cholesterol 259 H LDL Cholesterol 176 H VLDL Cholesterol 44 H HDL Cholesterol 39 L TSH 4.84 H Urine Color Urine Clarity Urine pH Ur Specific [place] Urine Protein Urine Glucose (UA) Urine Ketones Urine Occult Blood Urine Nitrite Urine Bilirubin Urine Urobilinogen Ur Leukocyte Esterase Urine RBC Urine WBC Ur Squamous Epith Cells Urine Bacteria Urine Mucus POC Glucose 11/09/17 11/09/17 11/10/17 08:50 11:34 04:20 WBC 18.5 H RBC 4.79 Hgb 14.1 Hct 43.4 MCV 90.6 MCH 29.4 MCHC 32.5 RDW 14.2 RDW Differential 46.6 H Plt Count 289 MPV 10.4 Immature Gran % (Auto) Neut % (Auto) Lymph % (Auto) [place] % (Auto) Eos % (Auto) Baso % (Auto) Absolute Neuts (auto) Absolute Lymphs (auto) Total Counted Differential Comment PT INR Activated Clotting Time Specimen Type ART Sample Site R Brachial pH 7.34 L Bicarbonate Actual 18.9 L POC Total CO2 20 Base Excess -7 L O2 Saturation 96 O2 % ABG pCO2 35.4 ABG pO2 83 [place] Test NA VBG pH VBG pO2 VBG O2 Sat (Calc) VBG O2 Content VBG Base Excess POC Mix VBG pCO2 Pt Tmp Respiration Rate O2 Delivery Device Nasal Can Liter Flow 4.0 EPAP IPAP Blood Gas Notified Whom [facility] Blood Gas Notified Time 1125 Sodium Potassium Chloride Carbon Dioxide Anion Gap BUN Creatinine Estim Creat Clear Calc Est GFR (MDRD) Af Amer Est GFR (MDRD) Non-Af BUN/Creatinine Ratio Glucose Calcium Total Bilirubin Direct Bilirubin AST ALT Alkaline Phosphatase Troponin I 0.781 H* B-Natriuretic Peptide Total Protein Albumin Globulin Albumin/Globulin Ratio Triglycerides Cholesterol LDL Cholesterol VLDL Cholesterol HDL Cholesterol TSH Urine Color Urine Clarity Urine pH Ur Specific [place] Urine Protein Urine Glucose (UA) Urine Ketones Urine Occult Blood Urine Nitrite Urine Bilirubin Urine Urobilinogen Ur Leukocyte Esterase Urine RBC Urine WBC Ur Squamous Epith Cells Urine Bacteria Urine Mucus POC Glucose 11/10/17 11/10/17 11/11/17 12:47 21:54 05:55 WBC 16.1 H RBC 4.31 Hgb 12.5 Hct 39.5 MCV 91.6 MCH 29.0 MCHC 31.6 L RDW 14.3 RDW Differential 48.8 H Plt Count 279 MPV 10.5 Immature Gran % (Auto) 0.200 Neut % (Auto) 92.3 H Lymph % (Auto) 5.8 L [place] % (Auto) 1.6 Eos % (Auto) 0.1 Baso % (Auto) 0.0 Absolute Neuts (auto) 14.8 H Absolute Lymphs (auto) 0.93 Total Counted Not Reportable Differential Comment PT INR Activated Clotting Time Specimen Type Sample Site pH Bicarbonate Actual POC Total CO2 Base Excess O2 Saturation O2 % ABG pCO2 ABG pO2 [place] Test VBG pH VBG pO2 VBG O2 Sat (Calc) VBG O2 Content VBG Base Excess POC Mix VBG pCO2 Pt Tmp Respiration Rate O2 Delivery Device Liter Flow EPAP IPAP Blood Gas Notified Whom Blood Gas Notified Time Sodium Potassium Chloride Carbon Dioxide Anion Gap BUN Creatinine Estim Creat Clear Calc Est GFR (MDRD) Af Amer Est GFR (MDRD) Non-Af BUN/Creatinine Ratio Glucose Calcium Total Bilirubin Direct Bilirubin AST ALT Alkaline Phosphatase Troponin I B-Natriuretic Peptide Total Protein Albumin Globulin Albumin/Globulin Ratio Triglycerides Cholesterol LDL Cholesterol VLDL Cholesterol HDL Cholesterol TSH Urine Color Urine Clarity Urine pH Ur Specific [place] Urine Protein Urine Glucose (UA) Urine Ketones Urine Occult Blood Urine Nitrite Urine Bilirubin Urine Urobilinogen Ur Leukocyte Esterase Urine RBC Urine WBC Ur Squamous Epith Cells Urine Bacteria Urine Mucus POC Glucose 144 H 164 H 11/11/17 11/11/17 11/11/17 05:55 05:55 05:55 WBC RBC Hgb Hct MCV MCH MCHC RDW RDW Differential Plt Count MPV Immature Gran % (Auto) Neut % (Auto) Lymph % (Auto) [place] % (Auto) Eos % (Auto) Baso % (Auto) Absolute Neuts (auto) Absolute Lymphs (auto) Total Counted Differential Comment PT 13.0 INR 1.0 Activated Clotting Time Specimen Type Sample Site pH Bicarbonate Actual POC Total CO2 Base Excess O2 Saturation O2 % ABG pCO2 ABG pO2 [place] Test VBG pH VBG pO2 VBG O2 Sat (Calc) VBG O2 Content VBG Base Excess POC Mix VBG pCO2 Pt Tmp Respiration Rate O2 Delivery Device Liter Flow EPAP IPAP Blood Gas Notified Whom Blood Gas Notified Time Sodium 142 Potassium 4.2 Chloride 105 Carbon Dioxide 28.0 Anion Gap 9 BUN 36 H Creatinine 1.17 H Estim Creat Clear Calc 34.38 Est GFR (MDRD) Af Amer 58 L Est GFR (MDRD) Non-Af 48 L BUN/Creatinine Ratio 30.8 H Glucose 113 H Calcium 9.0 Total Bilirubin Direct Bilirubin AST ALT Alkaline Phosphatase Troponin I B-Natriuretic Peptide Total Protein Albumin Globulin Albumin/Globulin Ratio Triglycerides Cholesterol LDL Cholesterol VLDL Cholesterol HDL Cholesterol TSH Urine Color Yellow Urine Clarity Clear Urine pH 6.0 Ur Specific [place] 1.020 Urine Protein 30 H Urine Glucose (UA) Normal Urine Ketones Negative Urine Occult Blood Negative Urine Nitrite Negative Urine Bilirubin Negative Urine Urobilinogen Normal Ur Leukocyte Esterase Negative Urine RBC 0 SEEN Urine WBC 0 SEEN Ur Squamous Epith Cells 0-5 SEEN Urine Bacteria 0 SEEN Urine Mucus 0 SEEN POC Glucose 11/11/17 11/11/17 11/11/17 10:11 11:48 14:04 WBC RBC Hgb Hct MCV MCH MCHC RDW RDW Differential Plt Count MPV Immature Gran % (Auto) Neut % (Auto) Lymph % (Auto) [place] % (Auto) Eos % (Auto) Baso % (Auto) Absolute Neuts (auto) Absolute Lymphs (auto) Total Counted Differential Comment PT INR Activated Clotting Time 202 H 136 Specimen Type Sample Site pH Bicarbonate Actual POC Total CO2 Base Excess O2 Saturation O2 % ABG pCO2 ABG pO2 [place] Test VBG pH VBG pO2 VBG O2 Sat (Calc) VBG O2 Content VBG Base Excess POC Mix VBG pCO2 Pt Tmp Respiration Rate O2 Delivery Device Liter Flow EPAP IPAP Blood Gas Notified Whom Blood Gas Notified Time Sodium Potassium Chloride Carbon Dioxide Anion Gap BUN Creatinine Estim Creat Clear Calc Est GFR (MDRD) Af Amer Est GFR (MDRD) Non-Af BUN/Creatinine Ratio Glucose Calcium Total Bilirubin Direct Bilirubin AST ALT Alkaline Phosphatase Troponin I B-Natriuretic Peptide Total Protein Albumin Globulin Albumin/Globulin Ratio Triglycerides Cholesterol LDL Cholesterol VLDL Cholesterol HDL Cholesterol TSH Urine Color Urine Clarity Urine pH Ur Specific [place] Urine Protein Urine Glucose (UA) Urine Ketones Urine Occult Blood Urine Nitrite Urine Bilirubin Urine Urobilinogen Ur Leukocyte Esterase Urine RBC Urine WBC Ur Squamous Epith Cells Urine Bacteria Urine Mucus POC Glucose 160 H 11/12/17 11/12/17 06:25 06:25 WBC 11.4 H RBC 4.25 Hgb 12.4 Hct 39.7 MCV 93.4 MCH 29.2 MCHC 31.2 L RDW 14.6 RDW Differential 49.2 H Plt Count 276 MPV 10.1 Immature Gran % (Auto) 0.300 Neut % (Auto) 69.8 Lymph % (Auto) 20.3 [place] % (Auto) 9.5 Eos % (Auto) 0.0 Baso % (Auto) 0.1 Absolute Neuts (auto) 7.9 H Absolute Lymphs (auto) 2.30 Total Counted Not Reportable Differential Comment PT INR Activated Clotting Time Specimen Type Sample Site pH Bicarbonate Actual POC Total CO2 Base Excess O2 Saturation O2 % ABG pCO2 ABG pO2 [place] Test VBG pH VBG pO2 VBG O2 Sat (Calc) VBG O2 Content VBG Base Excess POC Mix VBG pCO2 Pt Tmp Respiration Rate O2 Delivery Device Liter Flow EPAP IPAP Blood Gas Notified Whom Blood Gas Notified Time Sodium 143 Potassium 3.6 Chloride 105 Carbon Dioxide 27.0 Anion Gap 11 BUN 31 H Creatinine 0.97 Estim Creat Clear Calc 41.46 Est GFR (MDRD) Af Amer 73 Est GFR (MDRD) Non-Af 60 BUN/Creatinine Ratio 32.0 H Glucose 91 Calcium 8.5 Total Bilirubin 0.30 Direct Bilirubin AST 8 L ALT 13 Alkaline Phosphatase 64 Troponin I B-Natriuretic Peptide Total Protein 6.9 Albumin 3.7 Globulin 3.2 Albumin/Globulin Ratio 1.2 Triglycerides Cholesterol LDL Cholesterol VLDL Cholesterol HDL Cholesterol TSH Urine Color Urine Clarity Urine pH Ur Specific [place] Urine Protein Urine Glucose (UA) Urine Ketones Urine Occult Blood Urine Nitrite Urine Bilirubin Urine Urobilinogen Ur Leukocyte Esterase Urine RBC Urine WBC Ur Squamous Epith Cells Urine Bacteria Urine Mucus POC Glucose Interpretation Summary 2D echo (11/09/17 Mildly dilated left ventricle. The estimated ejection fraction is 25 %. Stage 1 diastolic dysfunction. Mid-Anterior : Akinetic. Mid-anteroseptal : Akinetic. Anterior [employer] : Akinetic. Inferior [employer] : Akinetic. Trivial tricuspid valve insufficiency. Right ventricular systolic pressure estimated to be 39 mmHg. Mild pulmonary hypertension. Trivial aortic valve insufficiency. Compared to echo report dated 12/17/2016, LV Function has gone from 55% to 25%. Cannot exclude Takotsubo's cardiomyopathy. Recommend clinical correlation. The study was technically difficult. cardiology Procedures: 2-D Echocardiogram, Cardiac catheterization Summary of Care Provided: The patient is a 72 year old F with a history of CAD status post stent placement in left main artery, hypertension hyperlipidemia. She was admitted by the ED on 11/09/2017 with complaint of chest pain which started a few hours before admission with associated shortness of breath. Pain was crushing and substernal and was relieved by sublingual nitroglycerin. [facility] done by [facility] showed some T wave inversions in the anterolateral leads. Initial troponin was 1.35, which trended down slightly to 0.92. Bedside echo done on day of admission showed akinetic anterior wall consistent with previous anterior wall myocardial infarction, which appeared to be new, and EF of 10-15%. CXR showed chronic interstitial changes and significant COPD with bilateral apical blebs and evidence of pulmonary vascular redistribution consistent with congestive heart failure. She was admitted and managed for NSTEMI,acute on chronic hypoxic respiratory failure due to COPD exacerbation and heart failure. She was started on IV Lasix 40 mg daily and continue on aspirin and Plavix started on Cozaar. It was recommended that she have repeat heart catheterization. He had cardiac cath on 11/11/2017 which showed 70% stenosis and mid RCA and 7 5% stenosis and distal RCA, with less than 30% stenosis in proximal LAD and circumflex arteries. She had stenting of the RCA done with a drug-eluting stent. Patient remained stable afterwards. She did complain of some bruising in the groin area at site of cath. She remained stable and was discharged home on 11/12/2017 follow-up with cardiology and cardiac rehab. Seen and examined prior to discharge. She complained of bruising and mild tenderness in the groin area from cath. She complained of some wheezing from COPD and had a cough which is nonproductive. He denies any chest pain, any abdominal pain, any diarrhea or vomiting. She stated that she felt much better after she had the procedure. 12 point review of systems was otherwise negative. Labs and vitals reviewed. o/e: Vital Signs Height 5 ft 2 in Weight: 152 lb 5.431 oz Weight in Pounds 152.3 lbs Pulse Ox 93 Temperature 97.8 F Pulse Rate 87 Respiratory Rate 22 Blood Pressure [BP] 105/61 Blood Pressure 112/61 Blood Pressure Position [BP] Semi-Fowlers Blood Pressure Position Supine General: Alert, Oriented x3, Cooperative, No apparent distress HEENT: Atraumatic, PERRLA, EOMI, Normocephalic Oral: Moist Mucosa Neck: Supple, No JVD, Negative Carotid Bruits Lungs: Normal air movement, - - has minimal wheezing in lower lung meza bilaterally Cardiovascular: Regular rate, Regular Rhythm, Normal S1, Normal S2, No murmurs Abdomen: Bowel Sounds Present, Soft, Non Tender, Non-Distended, No Hepato-splenomegaly Extremities: No clubbing, No cyanosis, No edema, Capillary Refill Less than 3 Seconds Skin: No rashes, No breakdown Musculoskeletal: No Tenderness to Palpation of Joints or Extremities Lymphatic: No Cervical, Supraclavicular, or Inguinal Adenopathy Neurological: Cranial nerves II-XII grossly intact Psych/Mental Status: Normal Affect, Appropriate, Alert and oriented to time, place, person, mood and affect She has been discharged home. She is to follow-up with her primary care doctor and cardiology as well as cardiac rehab. Patient counseled extensively about the importance of quitting smoking she smokes about a pack and a half daily. She will be discharged with nicotine patch 21 mg daily. She is to have a follow up 2D echo in a few months to assess for improvement in EF. She was counselled to increase home oxygen to 3L as needed to maintain saturation >92%. Discharge Diet: Low fat/ Low Cholesterol, 2000 mg Sodium Diet Weight Bearing Status: Weight bearing as tolerated Call your doctor if you observe: Shortness of breath, Swelling in the ankles, Chest pain Home Medications: Medications to take at Discharge Amlodipine [Norvasc] 5 mg PO DAILY 05/12/15 Aspirin 325 mg PO DAILY@0800 07/13/14 Atorvastatin Calcium [Lipitor] 40 mg PO QHS 07/13/14 Bupropion HCl [Bupropion Xl] 150 mg PO DAILY 07/13/14 Buspirone HCl 15 mg PO DAILY 07/13/14 Cyclobenzaprine [Flexeril] 10 mg PO DAILY 07/13/14 Fenofibrate [Tricor] 145 mg PO DAILY 07/13/14 Gabapentin [Neurontin] 300 mg PO BIDCM 07/13/14 Ipratropium/Albuterol Sulfate 2 puff INHALATION 4X/DAY 07/13/14 Omeprazole [Prilosec] 20 mg PO DAILY 07/13/14 Tiotropium [place] [Spiriva 18 MCG] 1 puff INHALATION DAILY 07/13/14 Vitamin D 50,000 units PO WE 07/13/14 Fluticasone/Vilanterol [Breo Ellipta 200-25 Mcg INH] 1 ea IH DAILY 12/17/16 Ipratropium [Atrovent Inhaler] 2 puff INHALATION 4X/DAY 12/17/16 Paroxetine HCl [Paxil] 40 mg PO DAILY 12/17/16 diphenhydramine 25 mg tablet 25 mg PO Q6H PRN 03/20/17 nitroglycerin 0.4 mg sublingual tablet 0.4 mg SUBLINGUAL Q5M PRN #25 tab 03/25/17 ranolazine ER 500 mg tablet,extended release,12 hr 500 mg PO BID #180 tab 03/25/17 isosorbide mononitrate ER 120 mg tablet,extended release 24 hr 120 mg PO QDAY #90 tab 10/17/17 losartan 50 mg tablet 50 mg PO DAILY #90 tab 10/17/17 clopidogrel 75 mg tablet 75 mg PO DAILY #90 tab 10/23/17 Carvedilol [Coreg (Beta Tata)] 3.125 mg PO BID #60 tab 11/12/17 Nicotine [Nicotine Patch] 1 ea TD DAILY #30 patch.td24 11/12/17 Following Prescrptions Were Given to Patient: Nicotine [Nicotine Patch] 1 ea TD DAILY #30 patch.td24 Carvedilol [Coreg (Beta Tata)] 3.125 mg PO BID #60 tab Primary Care Physician: Darleen Craig MD [Primary Care Provider] - Please follow up with your Primary Care Physician in: one week Please Follow Up With: Nando Burns MD When: 1-2 weeks Patient Instructions: Tips for Quitting Smoking (Cardiovascular), Discharge Instructions for Heart Attack Disposition: Home Minutes spent on discharge:: 45 Patient Condition:: Stable Medical Necessity - Tobacco Use Smoking Status: Current every day smoker Meaningful Use Info Meaningful Use Diagnoses (Choose all that apply): AMI, CHF - AMI Aspirin given w/in 24hrs of arrival?: Yes ASA at discharge?: Yes Statins at discharge?: Yes Miguel/ARB at discharge?: Yes Beta Tata at discharge?: Yes Done w/ Acute [place] measure.: Yes - CHF MIGUEL/ARB ordered at discharge?: Yes Documented LVEF (%): 25 Code Visit Inpatient E&M: 14328 Disch Hosp
--- NOTE | 2017-11-12 09:44 | PCM.DC ---
- Discharge Diagnoses Current Active Problems: Current Active and Chronic Problems (Last Reviewed 11/09/17 @ 05:19 by Lokesh Sethi MD) NSTEMI (non-ST elevated myocardial infarction) (Acute) COPD exacerbation (Acute) CAD (coronary artery disease) (Acute) Successful PTCA/SUSAN of the of mid/distal RCA with a 2.25 x 38 Promus Synergy, post dilated proximally with a 3.0 x 12 NC balloon at 8 safia (2.5mm); 75%-->0%, no dissection. Successful PTCA/SUSAN of the proximal RCA with a 2.5 x 20 Promus Synergy, post dilated with a 3.0 x 12 at 14 safia; 75%-->0%, no dissection. Tobacco abuse (Acute) Congestive heart failure (Acute) You will use the following diet at home:: Cardiac Your food should be the consistency of: Regular Your liquids should be the consistency of: Regular/Thin Weight Bearing Status: Weight bearing as tolerated Call your doctor if you observe: Shortness of breath, Chest pain, Increased palpitations (irregular heartbeat) Instructions: Tips for Quitting Smoking (Cardiovascular), Discharge Instructions for Heart Attack Additional Instructions: please increase your oxgygen to 3L as needed at home Allergies/Adverse Reactions: Allergies codeine Allergy (Unknown, Verified 11/09/17 03:33) Unknown fentanyl Allergy (Unknown, Verified 11/09/17 03:33) Unknown lithium Allergy (Unknown, Verified 11/09/17 03:33) Unknown morphine Allergy (Unknown, Verified 11/09/17 03:33) Unknown naproxen [From Naprosyn] Allergy (Unknown, Verified 11/09/17 03:33) Unknown phenobarbital Allergy (Unknown, Verified 11/09/17 03:33) Unknown Sulfa (Sulfonamide Antibiotics) Allergy (Unknown, Verified 11/09/17 03:33) Unknown albuterol Allergy (Verified 11/09/17 03:33) Rash Iodine and Iodide Containing Produc Adverse Reaction (Verified 11/09/17 03:33) Unknown Penicillins [PCN] Adverse Reaction (Verified 11/09/17 03:33) Unknown Medications to take at Discharge Amlodipine [Norvasc] 5 mg PO DAILY 07/13/14 Aspirin 325 mg PO DAILY@0800 07/13/14 Atorvastatin Calcium [Lipitor] 40 mg PO QHS 07/13/14 Bupropion HCl [Bupropion Xl] 150 mg PO DAILY 07/13/14 Buspirone HCl 15 mg PO DAILY 07/13/14 Cyclobenzaprine [Flexeril] 10 mg PO DAILY 07/13/14 Fenofibrate [Tricor] 145 mg PO DAILY 07/13/14 Gabapentin [Neurontin] 300 mg PO BIDCM 07/13/14 Ipratropium/Albuterol Sulfate 2 puff INHALATION 4X/DAY 07/13/14 Omeprazole [Prilosec] 20 mg PO DAILY 07/13/14 Tiotropium [place] [Spiriva 18 MCG] 1 puff INHALATION DAILY 07/13/14 Vitamin D 50,000 units PO WE 07/13/14 Fluticasone/Vilanterol [Breo Ellipta 200-25 Mcg INH] 1 ea IH DAILY 12/17/16 Ipratropium [Atrovent Inhaler] 2 puff INHALATION 4X/DAY 12/17/16 Paroxetine HCl [Paxil] 40 mg PO DAILY 12/17/16 diphenhydramine 25 mg tablet 25 mg PO Q6H PRN 03/20/17 nitroglycerin 0.4 mg sublingual tablet 0.4 mg SUBLINGUAL Q5M PRN #25 tab 03/25/17 ranolazine ER 500 mg tablet,extended release,12 hr 500 mg PO BID #180 tab 03/25/17 isosorbide mononitrate ER 120 mg tablet,extended release 24 hr 120 mg PO QDAY #90 tab 10/17/17 losartan 50 mg tablet 50 mg PO DAILY #90 tab 10/17/17 clopidogrel 75 mg tablet 75 mg PO DAILY #90 tab 10/23/17 Carvedilol [Coreg (Beta Tata)] 3.125 mg PO BID #60 tab 11/12/17 Nicotine [Nicotine Patch] 1 ea TD DAILY #30 patch.td24 11/12/17 The following prescriptions were given: Nicotine [Nicotine Patch] 1 ea TD DAILY #30 patch.td24 Carvedilol [Coreg (Beta Tata)] 3.125 mg PO BID #60 tab Primary Care Physician: Darleen Craig MD [Primary Care Provider] - Please follow up with your Primary Care Physician in: one week Test Results: Test results from this visit will be discussed in further detail at your follow-up appointment, if applicable. Please Follow Up With: Nando Burns MD When: 1-2 weeks Proposed Discharge Date: 11/12/17 Cardiac Rehab Referral Please Follow Up with Cardiac Rehabilitation:: 2 Weeks Cardiac Rehabilitation was informed of this Referral:: Yes - Notifies Card Rehab
--- NOTE | 2017-11-12 09:48 | DCINST_ITS ---
- Discharge Diagnoses Current Active Problems: Current Active and Chronic Problems (Last Reviewed 11/09/17 @ 05:19 by Lokesh Sethi MD) NSTEMI (non-ST elevated myocardial infarction) (Acute) COPD exacerbation (Acute) CAD (coronary artery disease) (Acute) Successful PTCA/SUSAN of the of mid/distal RCA with a 2.25 x 38 Promus Synergy, post dilated proximally with a 3.0 x 12 NC balloon at 8 safia (2.5mm); 75%-->0%, no dissection. Successful PTCA/SUSAN of the proximal RCA with a 2.5 x 20 Promus Synergy, post dilated with a 3.0 x 12 at 14 safia; 75%-->0%, no dissection. Tobacco abuse (Acute) Congestive heart failure (Acute) You will use the following diet at home:: Cardiac Your food should be the consistency of: Regular Your liquids should be the consistency of: Regular/Thin Weight Bearing Status: Weight bearing as tolerated Call your doctor if you observe: Shortness of breath, Chest pain, Increased palpitations (irregular heartbeat) Instructions: Tips for Quitting Smoking (Cardiovascular), Discharge Instructions for Heart Attack Additional Instructions: please increase your oxgygen to 3L as needed at home Allergies/Adverse Reactions: Allergies codeine Allergy (Unknown, Verified 11/09/17 03:33) Unknown fentanyl Allergy (Unknown, Verified 11/09/17 03:33) Unknown lithium Allergy (Unknown, Verified 11/09/17 03:33) Unknown morphine Allergy (Unknown, Verified 11/09/17 03:33) Unknown naproxen [From Naprosyn] Allergy (Unknown, Verified 11/09/17 03:33) Unknown phenobarbital Allergy (Unknown, Verified 11/09/17 03:33) Unknown Sulfa (Sulfonamide Antibiotics) Allergy (Unknown, Verified 11/09/17 03:33) Unknown albuterol Allergy (Verified 11/09/17 03:33) Rash Iodine and Iodide Containing Produc Adverse Reaction (Verified 11/09/17 03:33) Unknown Penicillins [PCN] Adverse Reaction (Verified 11/09/17 03:33) Unknown Medications to take at Discharge Amlodipine [Norvasc] 5 mg PO DAILY 07/13/14 Aspirin 325 mg PO DAILY@0800 07/13/14 Atorvastatin Calcium [Lipitor] 40 mg PO QHS 07/13/14 Bupropion HCl [Bupropion Xl] 150 mg PO DAILY 07/13/14 Buspirone HCl 15 mg PO DAILY 07/13/14 Cyclobenzaprine [Flexeril] 10 mg PO DAILY 07/13/14 Fenofibrate [Tricor] 145 mg PO DAILY 07/13/14 Gabapentin [Neurontin] 300 mg PO BIDCM 07/13/14 Ipratropium/Albuterol Sulfate 2 puff INHALATION 4X/DAY 07/13/14 Omeprazole [Prilosec] 20 mg PO DAILY 07/13/14 Tiotropium [place] [Spiriva 18 MCG] 1 puff INHALATION DAILY 07/13/14 Vitamin D 50,000 units PO WE 07/13/14 Fluticasone/Vilanterol [Breo Ellipta 200-25 Mcg INH] 1 ea IH DAILY 12/17/16 Ipratropium [Atrovent Inhaler] 2 puff INHALATION 4X/DAY 12/17/16 Paroxetine HCl [Paxil] 40 mg PO DAILY 12/17/16 diphenhydramine 25 mg tablet 25 mg PO Q6H PRN 03/20/17 nitroglycerin 0.4 mg sublingual tablet 0.4 mg SUBLINGUAL Q5M PRN #25 tab ranolazine ER 500 mg tablet,extended release,12 hr 500 mg PO BID #180 tab isosorbide mononitrate ER 120 mg tablet,extended release 24 hr 120 mg PO QDAY # 90 tab 10/17/17 losartan 50 mg tablet 50 mg PO DAILY #90 tab 10/17/17 clopidogrel 75 mg tablet 75 mg PO DAILY #90 tab 10/23/17 Carvedilol [Coreg (Beta Tata)] 3.125 mg PO BID #60 tab 11/12/17 Nicotine [Nicotine Patch] 1 ea TD DAILY #30 patch.td24 11/12/17 The following prescriptions were given: Nicotine [Nicotine Patch] 1 ea TD DAILY #30 patch.td24 Carvedilol [Coreg (Beta Tata)] 3.125 mg PO BID #60 tab Primary Care Physician: Darleen Craig MD [Primary Care Provider] - Please follow up with your Primary Care Physician in: one week Test Results: Test results from this visit will be discussed in further detail at your follow- up appointment, if applicable. Please Follow Up With: Nando Burns MD When: 1-2 weeks Proposed Discharge Date: 11/12/17 Cardiac Rehab Referral Please Follow Up with Cardiac Rehabilitation:: 2 Weeks Cardiac Rehabilitation was informed of this Referral:: Yes - Notifies Card Rehab
--- NOTE | 2017-11-12 10:00 | EKG12_ITS ---
Test Reason : POST HEART CATH Blood Pressure : / mmHG Vent. Rate : 091 BPM Atrial Rate : 091 BPM P-R Int : 162 ms QRS Dur : 092 ms QT Int : 406 ms P-R-T Axes : 064 035 164 degrees QTc Int : 499 ms Normal sinus rhythm ST & Marked T wave abnormality, consider anterolateral ischemia Prolonged QT Abnormal ECG When compared with ECG of 11-NOV-2017 05:40, MANUAL COMPARISON REQUIRED, DATA IS UNCONFIRMED Confirmed by JOÃO IVEY, ANGIE ([id number]), offline editor MACKENZIE TORRES ([id number]) on 11/13/2017 2:06:59 PM Referred By: Confirmed By:ANGIE MOYER MD
[2017-11-12] MEDS: Furosemide 40 MG Tablet PO (11:00)
--- NOTE | 2017-11-14 15:21 | CASEMGMT ---
LEIGH MEJIAS Discharge Follow-Up Phone Call. LACE: 12 STRATA: 4 Call Date: 11/14/17 Discharge Date: 11/12/17 Adm Dx: NSTEMI, COPD Exac, CAD LEIGH MEJIAS spoke with Heather cunningham: how she is feeling since she was discharged from the hospital. Pt reports she has been feeling much better. Pt reports she was able to fill her prescriptions and denies having any questions. Pt states she left a message with her Environmental Air Specialist and is planning to have her CM make her follow up appts for her w/ Dr Craig and Dr Burns. Pt denies having any further questions or needs. LEIGH MEJIAS thanked Heather for choosing [facility]. Stacey ABRAHAM BSN CM
== END 2017-11-12 13:05 | disposition home or self-care (01) | DRG 174 ==
LOC: ED 03:56 → ICU 05:10
PROVIDERS: Internal Medicine; Internal Medicine Cardiovascular Disease; Admitting Provider Internal Medicine; Emergency Provider Emergency Medicine; Family Provider Internal Medicine; PCP Internal Medicine; Visit Provider Student in an Organized Health Care Education/Training Program
DX: I21.4 Non-ST elevation (NSTEMI) myocardial infarction (principal); I50.21 Acute systolic (congestive) heart failure; J96.21 Acute and chronic respiratory failure with hypoxia; I11.0 Hypertensive heart disease with heart failure; I36.1 Nonrheumatic tricuspid (valve) insufficiency; J44.1 Chronic obstructive pulmonary disease with (acute) exacerbation; I34.0 Nonrheumatic mitral (valve) insufficiency; E78.5 Hyperlipidemia, unspecified; F17.210 Nicotine dependence, cigarettes, uncomplicated; Z99.81 Dependence on supplemental oxygen; I25.10 Atherosclerotic heart disease of native coronary artery without angina pectoris; Z95.5 Presence of coronary angioplasty implant and graft; I73.9 Peripheral vascular disease, unspecified
CPT/HCPCS: 36415; 36600; 71045; 80048; 80053; 80061; 80076; 81001; 82803; 82962; 83880; 84443; 84484; 85025; 85027; 85347; 85610; 87804; 92928; 93005; 93306; 93458; 94002; 94003; 94640; 94667; 94668; 97802; 99285; 99406; J7030; J7050; P9047; Q9967; A4216; C1725; C1769; C1874; C1887; C1894; C9600; J1940

== ENCOUNTER 2017-11-23 10:29 | Inpatient (IN) | payer MEDICAID, SELFPAY ==
[2017-11-23] VITALS (32 sets, daily range): BP systolic 88–182; BP diastolic 48–159; PULSE 65–135; RESP 12–46; TEMP 35.9–37.7; O2SAT 93–100; BMI 27.3; BMI 27.5
--- NOTE | 2017-11-23 10:35 | RAD_ITS ---
STUDY: X-RAY CHEST REASON FOR EXAM: Female, 72 years old. Chest pain and shortness of TECHNIQUE: Single AP portable view of the chest. COMPARISON: November 09, 2017 chest x-ray, June 29, 2014 chest x-ray FINDINGS: There is no significant change since prior study November 09, 2017 however there is worsening of the interstitial markings in the lung bases compared to prior study June 29, 2014. Overall the lungs are hyperinflated there are areas of emphysematous change in the upper lung zones and fibrotic appearing interstitial markings in the lower lung zones. There is no demonstrated pleural abnormality. Normal size heart. Normal mediastinum and danielle. Normal visualized pulmonary arteries. Normal visualized aortic arch and descending thoracic aorta. Normal visualized thoracic spine. Normal visualized ribs, clavicles, and shoulders. There is no demonstrated abnormality of the visualized soft tissue structures of the upper abdomen. RAD/Chest 1 View (Portable) IMPRESSION: Advanced chronic lung disease. Cannot exclude superimposed mild edema and/or atypical infiltrates. Electronically Signed: Linette Pickard MD at 11:38 EDT Tel , Service support ,
--- NOTE | 2017-11-23 10:35 | EKG12_ITS ---
Test Reason : SOB Blood Pressure : / mmHG Vent. Rate : 126 BPM Atrial Rate : 126 BPM P-R Int : 124 ms QRS Dur : 096 ms QT Int : 266 ms P-R-T Axes : 063 034 114 degrees QTc Int : [address] & T wave abnormality, consider lateral ischemia Abnormal ECG Confirmed by JOÃO IVEY, ANGIE ([id number]), make up editor MACKENZIE TORRES ([id number]) on 11/27/2017 8:49:36 AM Referred By: Confirmed By:ANGIE MOYER MD
[2017-11-23] MEDS: MethylPREDNISolone 125 MG/2 ML Vial IV (10:54)
[2017-11-23] MEDS: Ipratropium/Albuterol Sulfate 3 ML AMPUL.NEB INHALATION (11:05)
[2017-11-23 11:15] LABS: Absolute Nucleated RBC Count 0.08 10^3/uL (0-5); Basophil# 0.05 X10^3/uL; Basophil% 0.2 % (0-1); Differential Indicated SCAN CRITERIA MET; Eosinophil# 0.44 X10^3/uL; Eosinophils% 1.8 % (0-5); Hematocrit 39.6 % (37-47); Hemoglobin 12.1 g/dl (12.0-15.0); Lymphocyte % 20.9 % (19-41); Mean Corp Hgb Conc 30.6 g/gl (32-36); Mean Corpuscular Hgb 29.2 pg (27.0-32.0); Mean Corpuscular Volume 95.4 fL (81-99); Mean Platelet Vol. 9.5 fl (6.2-12.0); Monocyte% 6.2 % (0-10); NRBC Flagged by Analyzer 0.3 % (0-5); Neutrophil # 16.96 X10^3/uL (2.7-7.7); Neutrophil % 69.7 % (47-70); POSITIVE COUNT NO; POSITIVE DIFFERENTIAL YES; POSITIVE MORPHOLOGY YES; Platelet Count 640 K/mm3 (150-450); RBC Distribution Width CV 14.9 % (11.6-14.6); RBC Distribution Width SD 51.2 fl (35.1-43.9); Red Blood Count 4.15 M/mm3 (4.2-5.4); White Blood Count 24.4 K/mm3 (4.4-11.0)
[2017-11-23] MEDS: LEVALBUTEROL HCL 0.63 MG/3 ML VIAL.NEB 1.25 MG IH ×2 (11:15→11:30)
[2017-11-23 11:16] LABS: Blood Gas Specimen Type VEN; EPAP 5; FI02 75; IPAP 10; RR 12; SITE L Radial; Time Given 1100; VBG BASE EXCESS 2 mmol/L (-1.0-3.5); VBG Bicarbonate 29 mmol/L (22-26); VBG Oxygen Content 31 mmol/L (23-33); VBG PO2 93 mmHg (25-40); VBG SO2 96 % (50-70); VBG pCO2 62.1 mmHg (41-51); VBG pH 7.28 (7.32-7.42)
[2017-11-23] MEDS: LORazepam 2 MG/ML Syringe 0.5 MG IV (11:16)
[2017-11-23 11:28] LABS: Anion Gap 9 (5-15); BUN 18 mg/dL (7-18); BUN/Creat Ratio 14.9 RATIO (10-20); Calcium,Total 8.5 mg/dL (8.5-10.1); Chloride 103 mmol/L (98-107); Creatinine, Serum 1.21 mg/dL (0.55-1.02); EST Glomerular Filtration Rate 46 mL/min (>60); Est Glom Filt Rate - Afr Amer 56 mL/min (>60); Estimated Creatinine Clearance 34.76 ml/min; Glucose 293 mg/dL (74-106); Potassium 4.4 mmol/L (3.5-5.1); Sodium Level 138 mmol/L (136-145)
[2017-11-23 11:32] LABS: Differential Comment SCANNED; Platelet Estimate MKD INC (ADEQ)
[2017-11-23 11:39] LABS: BNP,B-Type NATRIURETIC PEPTIDE 1012.8 pg/mL (0-100)
[2017-11-23] MEDS: Succinylcholine Chloride 200 MG/10 ML Vial 100 MG IV (11:51)
[2017-11-23] MEDS: Etomidate 20 MG/10 ML Vial IV (11:51)
[2017-11-23] MEDS: Propofol 10MG/Ml 1,000 MG/100 ML Bottle 2.103 MG CONT INF ×2 (12:12→18:39)
--- NOTE | 2017-11-23 12:23 | ED.VISSUMM ---
- ER Visit Summary Date of Service: 11/23/17 Chief Complaint: Shortness of breath History of Present Illness: The patient is a 72 F presenting by EMS for shortness of breath. This started this morning. Per EMS she was walking around at home and became short of breath. EMS was called. She was put on nonrebreather per EMS. She had a recent admission from November 09 - November 12 for COPD exacerbation and NSTEMI. Patient denies chest pain. She is chronically on home O2. She takes her oxygen off to smoke. Physical Examination: Vitals are stable. Heart rate 127, respiratory rate 40, 96% on nonrebreather. patient is afebrile. HEENT exam is unremarkable. Neck is supple. Lungs are wheezing bilaterally. Accessory muscle use, retractions. Heart is regular and tachycardic Abdomen is soft nontender nondistended. Extremities are unremarkable. Skin is warm and dry. No focal neurologic deficit. Remainder of exam is unremarkable. Emergency Department Course and Treatment: Patient was started on BiPAP on her arrival. EKG is sinus tachycardia rate of 126. Patient was given albuterol, Atrovent aerosol. She was given Solu-Medrol IV. Chest x-ray shows advanced chronic lung disease. Cannot exclude superimposed mild edema and/or atypical infiltrates. She was given Levaquin, aztreonam, vancomycin to cover for HCAP with penicillin allergy. CBC showed white count of 24.4. Glucose 293, creatinine 1.21. Troponin is negative. While in the emergency department patient began to have decreased responsiveness while on BiPAP. She is agreeable to intubation. She was given etomidate and succinylcholine. She was intubated with a 7.5 ET tube. Equal breath sounds bilaterally. Discussed with the hospitalist for admission. Disposition: Admission Impression: Respiratory failure, COPD, intubation by ED physician This note was generated with [employer] dictation software. It may contain incorrect words, spelling, and punctuation that were not noted in review of the chart prior to signing ED Disposition - Plan for ED Patient: Chief Complaint: Shortness of Breath Referrals: Darleen Craig MD [Primary Care Provider] -
--- NOTE | 2017-11-23 12:57 | RAD_ITS ---
STUDY: X-RAY CHEST REASON FOR EXAM: Female, 72 years old. ET tube placement and OG placement. TECHNIQUE: AP supine portable view. COMPARISON: 11/23/2017. FINDINGS: ET tube tip is at the thoracic inlet. OG tube tip is inside the gastric cavity but the sidehole is at the EG junction. Pulmonary hyperinflation. Mild pulmonary fibrosis in the lower lobes. They are chronic and unchanged. There is no demonstrated pleural abnormality. Normal size heart. Normal mediastinum and danielle. Normal visualized pulmonary arteries. Normal visualized aortic arch and descending thoracic aorta. Normal visualized thoracic spine. Normal visualized ribs, clavicles, and shoulders. There is no demonstrated abnormality of the visualized soft tissue structures of the upper abdomen. RAD/Chest 1 View IMPRESSION: 1. ET tube tip is at the thoracic inlet. 2. OG tube tip is inside the gastric cavity but the sidehole is at the EEG junction. Distal repositioning will help. 3. COPD with chronic interstitial lung disease. This is unchanged when compared to 11/23/2017 at 11:09 AM. Electronically Signed: Israel Perdue MD at 16:07 EDT , Service support ,
--- NOTE | 2017-11-23 12:59 | PCM.HP.STD ---
Problem List (1) COPD with acute exacerbation Status: Acute (2) Gram-negative pneumonia Status: Acute (3) Acute hypercapnic respiratory failure Status: Acute History of Present Illness Date of Admission: 11/23/17 Chief Complaint: shortness of breath. The patient is a 72 year old F presents with shortness of breath. Patient is intubated and unable to provide any history no family is present at bedside so history is obtained through the emergency room physician. Essentially, this is a 72-year-old white female presents with shortness of breath that began this morning. EMS was called patient was brought to the hospital. Patient was becoming more somnolent so the decision was to intubate the patient. Patient was initially put on BiPAP. Patient had a white count of 24,000. Chest x-ray was concerning for edema versus infiltrates and received aztreonam, Levaquin and vancomycin. Patient also received steroids. Patient has noted allergy to albuterol so patient did receive her Xopenex that she takes at home. She was just discharged on the 11th fraction. Patient at that time received 2 drug-eluting stents to the mid and distal RCA. [] Past Medical History Past Medical History (Chronic Problems): Chronic Problems (Last Reviewed 11/23/17 @ 13:04 by Jackson Peter DO) Nonrheumatic tricuspid (valve) insufficiency (Chronic) Nonrheumatic mitral valve insufficiency (Chronic) Nicotine dependence, cigarettes, uncomplicated (Chronic) Hypertension (Chronic) Hyperlipidemia (Chronic) Atherosclerosis of [place] coronary artery of [place] heart without angina pectoris (Chronic) PTCA/SUSAN to ostium of LMT 10/01/2014 @[facility]; Peripheral vascular disease (Chronic) SOB (shortness of breath) (Chronic) Medical History: Medical History (Last Reviewed 11/23/17 @ 13:04 by Jackson Peter DO) Nonrheumatic tricuspid (valve) insufficiency (Chronic) I36.1 Nonrheumatic mitral valve insufficiency (Chronic) I34.0 Nicotine dependence, cigarettes, uncomplicated (Chronic) F17.210 Hypertension (Chronic) I10 Hyperlipidemia (Chronic) E78.5 Atherosclerosis of [place] coronary artery of [place] heart without angina pectoris (Chronic) I25.10 PTCA/SUSAN to ostium of LMT 10/01/2014 @[facility]; Peripheral vascular disease (Chronic) I73.9 SOB (shortness of breath) (Chronic) R06.02 Anemia D64.9 COPD (chronic obstructive pulmonary disease) J44.9 Diabetes mellitus E11.9 Fibromyalgia M79.7 GERD (gastroesophageal reflux disease) K21.9 Hyperlipidemia E78.5 MARISABEL (obstructive sleep apnea) G47.33 Allergies codeine Allergy (Unknown, Verified 11/23/17 11:02) Unknown fentanyl Allergy (Unknown, Verified 11/23/17 11:02) Unknown lithium Allergy (Unknown, Verified 11/23/17 11:02) Unknown morphine Allergy (Unknown, Verified 11/23/17 11:02) Unknown naproxen [From Naprosyn] Allergy (Unknown, Verified 11/23/17 11:02) Unknown phenobarbital Allergy (Unknown, Verified 11/23/17 11:02) Unknown Sulfa (Sulfonamide Antibiotics) Allergy (Unknown, Verified 11/23/17 11:02) Unknown albuterol Allergy (Verified 11/23/17 11:02) Rash Iodine and Iodide Containing Produc Adverse Reaction (Verified 11/23/17 11:02) Unknown Penicillins [PCN] Adverse Reaction (Verified 11/23/17 11:02) Unknown Home Medications: Ambulatory Orders Medication Instructions Recorded Amlodipine [Norvasc] 5 mg PO DAILY 07/13/14 Aspirin 81 mg PO DAILY@0800 07/13/14 Atorvastatin Calcium [Lipitor] 80 mg PO QHS 07/13/14 Cyclobenzaprine [Flexeril] 10 mg PO DAILY 07/13/14 Fenofibrate [Tricor] 145 mg PO DAILY 07/13/14 Gabapentin [Neurontin] 300 mg PO BIDCM 07/13/14 Ipratropium/Albuterol Sulfate 2 puff INHALATION 4X/DAY 07/13/14 Tiotropium [place] [Spiriva 18 MCG] 1 puff INHALATION DAILY 07/13/14 Vitamin D 50,000 units PO WE 07/13/14 Fluticasone/Vilanterol [Breo 1 ea IH DAILY 12/17/16 Ellipta 200-25 Mcg INH] Ipratropium [Atrovent Inhaler] 2 puff INHALATION 4X/DAY 12/17/16 Paroxetine HCl [Paxil] 40 mg PO DAILY 12/17/16 diphenhydramine 25 mg tablet 25 mg PO Q6H PRN 03/20/17 nitroglycerin 0.4 mg sublingual 0.4 mg SUBLINGUAL Q5M PRN #25 tab 03/25/17 tablet ranolazine ER 500 mg 500 mg PO BID #180 tab 03/25/17 tablet,extended release,12 hr losartan 50 mg tablet 50 mg PO DAILY #90 tab 10/17/17 clopidogrel 75 mg tablet 75 mg PO DAILY #90 tab 10/23/17 Carvedilol [Coreg (Beta Tata)] 3.125 mg PO BID #60 tab 11/12/17 Carvedilol [Coreg (Beta Tata)] 11/23/17 Cholecalciferol (Vitamin D3) 50,000 unit PO QWEEK 11/23/17 [Vitamin D3] Isosorbide Mononitrate [Imdur] 90 mg PO QDAY 11/23/17 Levalbuterol HCl [Levalbuterol HCl] 0.63 mg INHALATION 4X/DAY PRN 11/23/17 Metoprolol Tartrate [Lopressor 25 mg PO DAILY 11/23/17 (beta tata)] Pantoprazole Sodium [Protonix] 20 mg PO DAILY 11/23/17 buPROPion SR [Wellbutrin SR (150mg 150 mg PO DAILY 11/23/17 tablets)] busPIRone [Buspar] 15 mg PO DAILY 11/23/17 Surgical History: Surgical History (Last Reviewed 11/23/17 @ 13:04 by Jackson Peter DO) H/O tubal ligation Z98.51 History of left heart catheterization Z98.890 Hx of appendectomy Z98.890, Z90.49 S/P femoral-femoral bypass surgery Z95.828 with gorortex graft in 2001; removal of infected graft with reconstructions of right superficial artery in 2002 Surgical History: appendectomy, - - cad with stent Psychiatric History: No pertinent psych hx 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 Smoking Status: Current every day smoker - Her history, patient intubated unable to specify what in how much she smokes - *Family History Maternal Family History: Family History (Last Reviewed 11/23/17 @ 13:04 by Jackson Peter DO) Mother CAD (coronary artery disease) Hypertension Sister CAD (coronary artery disease) Myocardial infarction History Items: Diabetes, Heart Disease, Stroke Paternal Family History: Family History (Last Reviewed 11/23/17 @ 13:04 by Jackson Peter DO) Mother CAD (coronary artery disease) Hypertension Sister CAD (coronary artery disease) Myocardial infarction History Items: Diabetes, Stroke Review of Systems Unable to obtain accurate/complete ROS d/t: Unable to obtain as the patient is intubated and sedated. VTE Information - Inpt Only VTE Present on Admission: No VTE Mechan Device Prophylaxis: SCD's VTE Pharm Prophylaxis ordered?: Yes Patient Problems: Active and Suspected Problems (Last Reviewed 11/23/17 @ 13:04 by Jackson Peter DO) Acute respiratory failure with hypoxia and hypercapnia (Acute) COPD with acute exacerbation (Acute) Gram-negative pneumonia (Acute) Acute hypercapnic respiratory failure (Acute) - Physical Exam General: - - Intubated and sedated. HEENT: Atraumatic, Normocephalic, - - No scleral icterus Oral: - - The tracheal tube in place Neck: No Nodes, Thyroid Normal Size and Texture Lungs: Diminished, Wheezes Cardiovascular: Regular rate, Regular Rhythm, Normal S1, Normal S2, No murmurs Abdomen: Bowel Sounds Present, Soft, Non Tender, Non-Distended, No Hepato-splenomegaly Extremities: No edema, No Calf Tenderness Skin: No rashes, No breakdown Musculoskeletal: No Tenderness to Palpation of Joints or Extremities, No Muscle Wasting Neurological: - - Limited given patient's sedated status. No clonus. Psych/Mental Status: - - Debated and sedated Vital Signs Temp Pulse Resp BP Pulse Ox 35.9 C L 99 20 H 127/78 H 99 11/23/17 10:31 11/23/17 11:58 11/23/17 11:58 11/23/17 11:58 11/23/17 11:58 EKG reviewed and showed normal sinus rhythm with out any acute changes. Chest x-ray reviewed and showed flattening of the diaphragms bilaterally pulmonary vascular congestion versus infiltrate. Clinical Impression(s) from Imaging Studies Chest X-Ray 11/23/17 10:35 IMPRESSION: Advanced chronic lung disease. Cannot exclude superimposed mild edema and/or atypical infiltrates. Electronically Signed: Linette Pickard MD at 11:38 EDT Tel , Service support , Assessment/Plan All Active Problems (Last Reviewed 11/23/17 @ 13:04 by Jackson Peter DO) Acute respiratory failure with hypoxia and hypercapnia (Acute) COPD with acute exacerbation (Acute) Gram-negative pneumonia (Acute) Acute hypercapnic respiratory failure (Acute) NSTEMI (non-ST elevated myocardial infarction) (Acute) COPD exacerbation (Acute) CAD (coronary artery disease) (Acute) Tobacco abuse (Acute) Congestive heart failure (Acute) 1. Acute hypercapnic respiratory failure Suspect due to COPD exacerbation as well as pneumonia. Clinically I am not sure the patient has any heart active heart failure though she does have an elevated BNP Plan is to treat the COPD and pneumonia at this point in time Patient is intubated and currently on a ventilator Pulmonology on consultation for further assistance in ventilator management 2. Acute COPD exacerbation Steroids Patient has rash with albuterol so patient will continue with her Xopenex Will need to address smoking cessation 3. Suspected gram-negative pneumonia Check urinary antigens for Streptococcus and Legionella, check sputum culture Pulmonary toilet Aztreonam, as patient has a penicillin allergy, and vancomycin 4. Heart failure with reduced ejection fraction Given the patient's current status will hold off on any diuretics at this point in time I am not sure much of her symptoms are directly treatable to an acute exacerbation at this time Previous ejection fraction was 25% from echocardiogram on November 09 Continue with carvedilol and losartan 5. Coronary artery disease Recent drug-eluting stents to the distal and mid RCA on November 11 Continue with dual antiplatelet therapy Follow-up with cardiology as outpatient Initial troponin was negative, cycle 2 additional troponins If any acute issues arise while the patient is hospitalized, consult cardiology 6. DVT prophylaxis with Lovenox Code Visit Inpatient E&M: 48299 Init Hosp L3
--- NOTE | 2017-11-23 12:59 | NURSING ---
ICU 2 LUTHER RESP FAILURE
--- NOTE | 2017-11-23 13:04 | HP.PCM_ITS ---
Problem List (1) COPD with acute exacerbation Status: Acute (2) Gram-negative pneumonia Status: Acute (3) Acute hypercapnic respiratory failure Status: Acute History of Present Illness Date of Admission: 11/23/17 Chief Complaint: shortness of breath. The patient is a 72 year old F presents with shortness of breath. Patient is intubated and unable to provide any history no family is present at bedside so history is obtained through the emergency room physician. Essentially, this is a 72-year-old white female presents with shortness of breath that began this morning. EMS was called patient was brought to the hospital. Patient was becoming more somnolent so the decision was to intubate the patient. Patient was initially put on BiPAP. Patient had a white count of 24,000. Chest x-ray was concerning for edema versus infiltrates and received aztreonam, Levaquin and vancomycin. Patient also received steroids. Patient has noted allergy to albuterol so patient did receive her Xopenex that she takes at home. She was just discharged on the 11th fraction. Patient at that time received 2 drug- eluting stents to the mid and distal RCA. [] Past Medical History Past Medical History (Chronic Problems): Chronic Problems (Last Reviewed 11/23/17 @ 13:04 by Jackson Peter DO) Nonrheumatic tricuspid (valve) insufficiency (Chronic) Nonrheumatic mitral valve insufficiency (Chronic) Nicotine dependence, cigarettes, uncomplicated (Chronic) Hypertension (Chronic) Hyperlipidemia (Chronic) Atherosclerosis of [place] coronary artery of [place] heart without angina pectoris (Chronic) PTCA/SUSAN to ostium of LMT 10/01/2014 @[facility]; Peripheral vascular disease (Chronic) SOB (shortness of breath) (Chronic) Medical History: Medical History (Last Reviewed 11/23/17 @ 13:04 by Jackson Peter DO) Nonrheumatic tricuspid (valve) insufficiency (Chronic) I36.1 Nonrheumatic mitral valve insufficiency (Chronic) I34.0 Nicotine dependence, cigarettes, uncomplicated (Chronic) F17.210 Hypertension (Chronic) I10 Hyperlipidemia (Chronic) E78.5 Atherosclerosis of [place] coronary artery of [place] heart without angina pectoris (Chronic) I25.10 PTCA/SUSAN to ostium of LMT 10/01/2014 @[facility]; Peripheral vascular disease (Chronic) I73.9 SOB (shortness of breath) (Chronic) R06.02 Anemia D64.9 COPD (chronic obstructive pulmonary disease) J44.9 Diabetes mellitus E11.9 Fibromyalgia M79.7 GERD (gastroesophageal reflux disease) K21.9 Hyperlipidemia E78.5 MARISABEL (obstructive sleep apnea) G47.33 Allergies codeine Allergy (Unknown, Verified 11/23/17 11:02) Unknown fentanyl Allergy (Unknown, Verified 11/23/17 11:02) Unknown lithium Allergy (Unknown, Verified 11/23/17 11:02) Unknown morphine Allergy (Unknown, Verified 11/23/17 11:02) Unknown naproxen [From Naprosyn] Allergy (Unknown, Verified 11/23/17 11:02) Unknown phenobarbital Allergy (Unknown, Verified 11/23/17 11:02) Unknown Sulfa (Sulfonamide Antibiotics) Allergy (Unknown, Verified 11/23/17 11:02) Unknown albuterol Allergy (Verified 11/23/17 11:02) Rash Iodine and Iodide Containing Produc Adverse Reaction (Verified 11/23/17 11:02) Unknown Penicillins [PCN] Adverse Reaction (Verified 11/23/17 11:02) Unknown Home Medications: Ambulatory Orders Medication Instructions Recorded Amlodipine [Norvasc] 5 mg PO DAILY 07/13/14 Aspirin 81 mg PO DAILY@0800 07/13/14 Atorvastatin Calcium [Lipitor] 80 mg PO QHS 07/13/14 Cyclobenzaprine [Flexeril] 10 mg PO DAILY 07/13/14 Fenofibrate [Tricor] 145 mg PO DAILY 07/13/14 Gabapentin [Neurontin] 300 mg PO BIDCM 07/13/14 Ipratropium/Albuterol Sulfate 2 puff INHALATION 4X/DAY 07/13/14 Tiotropium [place] [Spiriva 18 MCG] 1 puff INHALATION DAILY 07/13/14 Vitamin D 50,000 units PO WE 07/13/14 Fluticasone/Vilanterol [Breo 1 ea IH DAILY 12/17/16 Ellipta 200-25 Mcg INH] Ipratropium [Atrovent Inhaler] 2 puff INHALATION 4X/DAY 12/17/16 Paroxetine HCl [Paxil] 40 mg PO DAILY 12/17/16 diphenhydramine 25 mg tablet 25 mg PO Q6H PRN 03/20/17 nitroglycerin 0.4 mg sublingual 0.4 mg SUBLINGUAL Q5M PRN #25 tab 03/25/17 tablet ranolazine ER 500 mg 500 mg PO BID #180 tab 03/25/17 tablet,extended release,12 hr losartan 50 mg tablet 50 mg PO DAILY #90 tab 10/17/17 clopidogrel 75 mg tablet 75 mg PO DAILY #90 tab 10/23/17 Carvedilol [Coreg (Beta Tata)] 3.125 mg PO BID #60 tab 11/12/17 Carvedilol [Coreg (Beta Tata)] 11/23/17 Cholecalciferol (Vitamin D3) 50,000 unit PO QWEEK 11/23/17 [Vitamin D3] Isosorbide Mononitrate [Imdur] 90 mg PO QDAY 11/23/17 Levalbuterol HCl [Levalbuterol HCl] 0.63 mg INHALATION 4X/DAY PRN 11/23/17 Metoprolol Tartrate [Lopressor 25 mg PO DAILY 11/23/17 (beta tata)] Pantoprazole Sodium [Protonix] 20 mg PO DAILY 11/23/17 buPROPion SR [Wellbutrin SR (150mg 150 mg PO DAILY 11/23/17 tablets)] busPIRone [Buspar] 15 mg PO DAILY 11/23/17 Surgical History: Surgical History (Last Reviewed 11/23/17 @ 13:04 by Jackson Peter DO) H/O tubal ligation Z98.51 History of left heart catheterization Z98.890 Hx of appendectomy Z98.890, Z90.49 S/P femoral-femoral bypass surgery Z95.828 with gorortex graft in 2001; removal of infected graft with reconstructions of right superficial artery in 2002 Surgical History: appendectomy, - - cad with stent Psychiatric History: No pertinent psych hx [employer] History: No pertinent [employer] history Smoking Status: Current every day smoker - Her history, patient intubated unable to specify what in how much she smokes - *Family History Maternal Family History: Family History (Last Reviewed 11/23/17 @ 13:04 by Jackson Peter DO) Mother CAD (coronary artery disease) Hypertension Sister CAD (coronary artery disease) Myocardial infarction History Items: Diabetes, Heart Disease, Stroke Paternal Family History: Family History (Last Reviewed 11/23/17 @ 13:04 by Jackson Peter DO) Mother CAD (coronary artery disease) Hypertension Sister CAD (coronary artery disease) Myocardial infarction History Items: Diabetes, Stroke Review of Systems Unable to obtain accurate/complete ROS d/t: Unable to obtain as the patient is intubated and sedated. VTE Information - Inpt Only VTE Present on Admission: No VTE Mechan Device Prophylaxis: SCD's VTE Pharm Prophylaxis ordered?: Yes Patient Problems: Active and Suspected Problems (Last Reviewed 11/23/17 @ 13:04 by Jackson Peter DO) Acute respiratory failure with hypoxia and hypercapnia (Acute) COPD with acute exacerbation (Acute) Gram-negative pneumonia (Acute) Acute hypercapnic respiratory failure (Acute) - Physical Exam General: - - Intubated and sedated. HEENT: Atraumatic, Normocephalic, - - No scleral icterus Oral: - - The tracheal tube in place Neck: No Nodes, Thyroid Normal Size and Texture Lungs: Diminished, Wheezes Cardiovascular: Regular rate, Regular Rhythm, Normal S1, Normal S2, No murmurs Abdomen: Bowel Sounds Present, Soft, Non Tender, Non-Distended, No Hepato- splenomegaly Extremities: No edema, No Calf Tenderness Skin: No rashes, No breakdown Musculoskeletal: No Tenderness to Palpation of Joints or Extremities, No Muscle Wasting Neurological: - - Limited given patient's sedated status. No clonus. Psych/Mental Status: - - Debated and sedated Vital Signs Temp Pulse Resp BP Pulse Ox 35.9 C L 99 20 H 127/78 H 99 11/23/17 10:31 11/23/17 11:58 11/23/17 11:58 11/23/17 11:58 11/23/17 11:58 EKG reviewed and showed normal sinus rhythm with out any acute changes. Chest x-ray reviewed and showed flattening of the diaphragms bilaterally pulmonary vascular congestion versus infiltrate. Clinical Impression(s) from Imaging Studies Chest X-Ray 11/23/17 10:35 IMPRESSION: Advanced chronic lung disease. Cannot exclude superimposed mild edema and/or atypical infiltrates. Electronically Signed: Linette Pickard MD at 11:38 EDT Tel , Service support , Assessment/Plan All Active Problems (Last Reviewed 11/23/17 @ 13:04 by Jackson Peter DO) Acute respiratory failure with hypoxia and hypercapnia (Acute) COPD with acute exacerbation (Acute) Gram-negative pneumonia (Acute) Acute hypercapnic respiratory failure (Acute) NSTEMI (non-ST elevated myocardial infarction) (Acute) COPD exacerbation (Acute) CAD (coronary artery disease) (Acute) Tobacco abuse (Acute) Congestive heart failure (Acute) 1. Acute hypercapnic respiratory failure * Suspect due to COPD exacerbation as well as pneumonia. Clinically I am not sure the patient has any heart active heart failure though she does have an elevated BNP * Plan is to treat the COPD and pneumonia at this point in time * Patient is intubated and currently on a ventilator * Pulmonology on consultation for further assistance in ventilator management 2. Acute COPD exacerbation * Steroids * Patient has rash with albuterol so patient will continue with her Xopenex * Will need to address smoking cessation 3. Suspected gram-negative pneumonia * Check urinary antigens for Streptococcus and Legionella, check sputum culture * Pulmonary toilet * Aztreonam, as patient has a penicillin allergy, and vancomycin 4. Heart failure with reduced ejection fraction * Given the patient's current status will hold off on any diuretics at this point in time * I am not sure much of her symptoms are directly treatable to an acute exacerbation at this time * Previous ejection fraction was 25% from echocardiogram on November 09 * Continue with carvedilol and losartan 5. Coronary artery disease * Recent drug-eluting stents to the distal and mid RCA on November 11 * Continue with dual antiplatelet therapy * Follow-up with cardiology as outpatient * Initial troponin was negative, cycle 2 additional troponins * If any acute issues arise while the patient is hospitalized, consult cardiology 6. DVT prophylaxis with Lovenox Code Visit Inpatient E&M: 55375 Init Hosp L3
--- NOTE | 2017-11-23 13:28 | ED.RN ---
ATTEMPTING TO GET SECOND LINE, UNSUCCESSFUL AT THIS TIME. UNABLE TO START ANTIBIOTICS.
--- NOTE | 2017-11-23 16:16 | PCM.OP.BLANK ---
Problem List (1) COPD with acute exacerbation Status: Acute (2) Gram-negative pneumonia Status: Acute (3) Acute hypercapnic respiratory failure Status: Acute Operative Report Date of Procedure: 11/23/17 Procedure: Right IJ triple-lumen catheter Indication: IV access in critically ill patient Description: Area was prepped and draped in a sterile fashion. Site was locally anesthetized with lidocaine. Using ultrasound guidance, the right internal jugular vein was identified and then accessed. Guidewire was advanced and using modified Seldinger technique triple lumen catheter was advanced over the guidewire. All ports flushed and joselito well. Triple-lumen catheter was sutured in place. Patient tolerated the procedure well. Estimated blood loss: 5 cc Follow-up chest x-ray: Right IJ triple lumen catheter above the atrium. No pneumothorax. Code Visit Procedures: [id number] Insert Non-tunnel CV Cath
--- NOTE | 2017-11-23 16:24 | RAD_ITS ---
STUDY: X-RAY CHEST REASON FOR EXAM: Female, 72 years old. Central line placement verification. TECHNIQUE: Single frontal view of the chest. COMPARISON: November 23, 2017 FINDINGS: Endotracheal tube tip is approximately 7.5 cm above the neeru. Tip of the NG tube cannot be seen. A new right internal jugular catheter has been inserted with the tip projected into the mid-SVC. There is stable hyperexpansion with a diffuse interstitial pattern. There is no demonstrated pleural abnormality. There is stable cardiomegaly. Normal mediastinum and danielle. Normal visualized pulmonary arteries. Normal visualized aortic arch and descending thoracic aorta. Normal visualized thoracic spine. Normal visualized ribs, clavicles, and shoulders. There is no demonstrated abnormality of the visualized soft tissue structures of the upper abdomen. RAD/Chest 1 View IMPRESSION: Stable appearance of the chest. New right internal jugular catheter with tip projected into the mid-SVC. No complications noted. Electronically Signed: Jacob Garay MD at 17:09 EDT , Service support ,
[2017-11-23 18:40] LABS: Base Excess 3 mmol/L (-2 to +2); Bicarbonate 27.5 mmol/L (22-26); Blood Gas Specimen Type ART; FI02 40; Mode A-C; O2 Delivery Device Vent; PEEP 5; PO2 84 mmHG (75-100); RR 12; SITE R Brachial; SO2 96 % (95-99); Time Given 1830; Total Carbon Dioxide 29 mmol/L; Vt 450; pCO2 45.1 mmHg (35-45); pH 7.39 (7.35-7.45)
--- NOTE | 2017-11-23 18:46 | PCM.RX.CS ---
Consult Pharmacy has been consulted to manage selected antiobiotic: Vancomycin Type of Consult: New start Suspected Infection: Pneumonia Prior Doses of Antibiotics Received/Current Regimen: VANCOMYCIN 1000MG IV X1 FROM ED 11/23/17 @1730 Labs: Sodium 138 mmol/L (136-145) 11/23/17 11:01 Potassium 4.4 mmol/L (3.5-5.1) 11/23/17 11:01 Chloride 103 mmol/L (98-107) 11/23/17 11:01 Carbon Dioxide 26.0 mmol/L (21.0-32.0) 11/23/17 11:01 Anion Gap 9 (5-15) 11/23/17 11:01 BUN 18 mg/dL (7-18) 11/23/17 11:01 Creatinine 1.21 mg/dL (0.55-1.02) H 11/23/17 11:01 Est GFR (MDRD) Af Amer 56 mL/min (>60) L 11/23/17 11:01 Est GFR (MDRD) Non-Af 46 mL/min (>60) L 11/23/17 11:01 BUN/Creatinine Ratio 14.9 RATIO (10-20) 11/23/17 11:01 Glucose 293 mg/dL (74-106) H 11/23/17 11:01 Weight used for dosin.1 kg Estimated Creatinine Clearance: 34ML/MIN Goal Trough: 15-20 mcg/mL Pharmacy Plan for Drug Dosing: PLAN/RECOMMENDATIONS 1. Vancomycin 1000mg IV Q24hrs to start 11/24/17 @1700 (24hrs from initial ED dose) 2. Trough scheduled 11/25/17 @1630, prior to 3rd total dose given 3. Pharmacy Service will continue to monitor and adjust dosing as required.
[2017-11-23] MEDS: 0.9% Normal Saline 1,000 ML 75 ML IV (19:39)
[2017-11-23] MEDS: 0.9% NaCl Peripheral Flush Adult/Peds IV (19:40)
[2017-11-23] MEDS: Chlorhexidine 15 ML PO (21:27)
[2017-11-23] MEDS: Carvedilol 3.125 MG TABLET PO (21:28)
[2017-11-23] MEDS: Atorvastatin Calcium 80 MG Tablet PO (21:28)
[2017-11-23] MEDS: Famotidine 20 MG Tablet GT (21:28)
[2017-11-23] MEDS: LEVALBUTEROL HCL 0.63 MG/3 ML VIAL.NEB IH (22:20)
[2017-11-24] VITALS (38 sets, daily range): BP systolic 85–139; BP diastolic 45–76; PULSE 57–94; RESP 12–26; TEMP 36.3–36.8; O2SAT 93–100
[2017-11-24] MEDS: LEVALBUTEROL HCL 0.63 MG/3 ML VIAL.NEB IH ×5 (02:45→19:00)
[2017-11-24 04:02] LABS: Hematocrit 28.8 % (37-47); Mean Corp Hgb Conc 31.3 g/gl (32-36); Mean Corpuscular Hgb 30.1 pg (27.0-32.0); Mean Corpuscular Volume 96.3 fL (81-99); Platelet Count 358 K/mm3 (150-450); RBC Distribution Width CV 14.8 % (11.6-14.6); RBC Distribution Width SD 48.6 fl (35.1-43.9); Red Blood Count 2.99 M/mm3 (4.2-5.4); White Blood Count 12.6 K/mm3 (4.4-11.0)
[2017-11-24 04:04] LABS: Scan Indicated on CBC? Y/N NO
[2017-11-24 04:15] LABS: Anion Gap 7 (5-15); BUN 24 mg/dL (7-18); BUN/Creat Ratio 24.1 RATIO (10-20); Calcium,Total 7.8 mg/dL (8.5-10.1); Chloride 109 mmol/L (98-107); EST Glomerular Filtration Rate 58 mL/min (>60); Est Glom Filt Rate - Afr Amer 70 mL/min (>60); Estimated Creatinine Clearance 40.22 ml/min; Glucose 111 mg/dL (74-106); Potassium 4.3 mmol/L (3.5-5.1); Sodium Level 145 mmol/L (136-145)
[2017-11-24] MEDS: Propofol 10MG/Ml 1,000 MG/100 ML Bottle 2.103 MG CONT INF ×2 (04:37→17:04)
--- NOTE | 2017-11-24 07:00 | PCM.CON.CC ---
Problem List (1) Acute respiratory failure with hypoxia and hypercapnia Status: Acute (2) COPD with acute exacerbation Status: Acute (3) Gram-negative pneumonia Status: Acute (4) Acute hypercapnic respiratory failure Status: Acute (5) COPD exacerbation Status: Acute (6) CAD (coronary artery disease) Status: Chronic Qualifiers: Coronary Disease-Associated Artery/Lesion type: [place] artery [place] vs. transplanted heart: [place] heart Associated angina: without angina Qualified Code(s): I25.10 - Atherosclerotic heart disease of [place] coronary artery without angina pectoris Comment: Successful PTCA/SUSAN of the of mid/distal RCA with a 2.25 x 38 Promus Synergy, post dilated proximally with a 3.0 x 12 NC balloon at 8 sfaia (2.5mm); 75%-->0%, no dissection. Successful PTCA/SUSAN of the proximal RCA with a 2.5 x 20 Promus Synergy, post dilated with a 3.0 x 12 at 14 safia; 75%-->0%, no dissection. (7) Tobacco abuse Status: Chronic (8) Nonrheumatic tricuspid (valve) insufficiency Status: Chronic (9) Nonrheumatic mitral valve insufficiency Status: Chronic (10) Hypertension Status: Chronic Qualifiers: Hypertension type: essential hypertension (11) Hyperlipidemia Status: Chronic Qualifiers: Hyperlipidemia type: pure hypercholesterolemia Qualified Code(s): E78.00 - Pure hypercholesterolemia, unspecified; E78.0 - Pure hypercholesterolemia (12) Peripheral vascular disease Status: Chronic Reason for Consult Date of Consultation: 11/24/17 Reason for Consultation: Respiratory failure History of Present Illness: The patient is a 72 year old F with past medical history listed below, who presented to [facility] on 11/23/2017 secondary to shortness of breath. Patient is currently intubated and unable to provide significant history. Most of the history was per electronic medical records. Patient reportedly had acute onset of shortness of breath upon waking. Patient was placed on a nonrebreather by EMS secondary to hypoxemia was noted to be 96% on presentation. In the emergency room, patient was started on BiPAP and was found to have sinus tachycardia with a heart rate of 126 bpm. Patient was given aerosols and IV Solu-Medrol. Patient does have a reported penicillin allergy, but this was not verified prior to patient requiring intubation given decreased responsiveness on BiPAP. Patient was transferred to the intensive care unit. Overnight, patient has remained hemodynamically stable, but this morning was unable to tolerate more than 30 minutes of spontaneous awakening trial. Patient became tachypneic and tachycardic. Patient was placed back on the ventilator. Patient denied any pain. No family was at the bedside during my evaluation. Patient reportedly had a recent admission to [facility] from November 09- secondary to COPD exacerbation and non-ST elevation NH. Patient is chronically on supplemental oxygen at home, but reportedly continues to smoke. Patient does remove her oxygen to smoke and no inhalation injury was noted on initial presentation by EMS. Review of the medical record shows no current pulmonary evaluation. Patient was not seen by pulmonology during last hospitalization earlier this month. No pulmonary function tests are available for review. Past Medical History Past Medical History (Chronic Problems): Chronic Problems (Last Reviewed 11/23/17 @ 13:04 by Jackson Peter DO) CAD (coronary artery disease) (Chronic) Successful PTCA/SUSAN of the of mid/distal RCA with a 2.25 x 38 Promus Synergy, post dilated proximally with a 3.0 x 12 NC balloon at 8 safia (2.5mm); 75%-->0%, no dissection. Successful PTCA/SUSAN of the proximal RCA with a 2.5 x 20 Promus Synergy, post dilated with a 3.0 x 12 at 14 safia; 75%-->0%, no dissection. Tobacco abuse (Chronic) Nonrheumatic tricuspid (valve) insufficiency (Chronic) Nonrheumatic mitral valve insufficiency (Chronic) Nicotine dependence, cigarettes, uncomplicated (Chronic) Hypertension (Chronic) Hyperlipidemia (Chronic) Atherosclerosis of [place] coronary artery of [place] heart without angina pectoris (Chronic) PTCA/SUSAN to ostium of LMT 10/01/2014 @[facility]; Peripheral vascular disease (Chronic) SOB (shortness of breath) (Chronic) Medical History: Medical History (Last Reviewed 11/23/17 @ 13:04 by Jackson Peter DO) Nonrheumatic tricuspid (valve) insufficiency (Chronic) I36.1 Nonrheumatic mitral valve insufficiency (Chronic) I34.0 Nicotine dependence, cigarettes, uncomplicated (Chronic) F17.210 Hypertension (Chronic) I10 Hyperlipidemia (Chronic) E78.5 Atherosclerosis of [place] coronary artery of [place] heart without angina pectoris (Chronic) I25.10 PTCA/SUSAN to ostium of LMT 10/01/2014 @[facility]; Peripheral vascular disease (Chronic) I73.9 SOB (shortness of breath) (Chronic) R06.02 Anemia D64.9 COPD (chronic obstructive pulmonary disease) J44.9 Diabetes mellitus E11.9 Fibromyalgia M79.7 GERD (gastroesophageal reflux disease) K21.9 Hyperlipidemia E78.5 MARISABEL (obstructive sleep apnea) G47.33 Allergies codeine Allergy (Unknown, Verified 11/23/17 11:02) Unknown lithium Allergy (Unknown, Verified 11/23/17 11:02) Unknown morphine Allergy (Unknown, Verified 11/23/17 11:02) Unknown naproxen [From Naprosyn] Allergy (Unknown, Verified 11/23/17 11:02) Unknown phenobarbital Allergy (Unknown, Verified 11/23/17 11:02) Unknown Sulfa (Sulfonamide Antibiotics) Allergy (Unknown, Verified 11/23/17 11:02) Unknown albuterol Allergy (Verified 11/23/17 11:02) Rash fentanyl Adverse Reaction (Severe, Verified 11/23/17 18:23) Other OD on Fentany patch. Very sensitive to does 75mcg patch Iodine and Iodide Containing Produc Adverse Reaction (Verified 11/23/17 11:02) Unknown Penicillins [PCN] Adverse Reaction (Verified 11/23/17 11:02) Unknown Home Medications: Ambulatory Orders Medication Instructions Recorded Amlodipine [Norvasc] 5 mg PO DAILY 07/13/14 Aspirin 81 mg PO DAILY@0800 07/13/14 Atorvastatin Calcium [Lipitor] 80 mg PO QHS 07/13/14 Cyclobenzaprine [Flexeril] 10 mg PO DAILY 07/13/14 Fenofibrate [Tricor] 145 mg PO DAILY 07/13/14 Gabapentin [Neurontin] 300 mg PO BIDCM 07/13/14 Ipratropium/Albuterol Sulfate 2 puff INHALATION 4X/DAY 07/13/14 Tiotropium [place] [Spiriva 18 MCG] 1 puff INHALATION DAILY 07/13/14 Vitamin D 50,000 units PO WE 07/13/14 Fluticasone/Vilanterol [Breo 1 ea IH DAILY 12/17/16 Ellipta 200-25 Mcg INH] Ipratropium [Atrovent Inhaler] 2 puff INHALATION 4X/DAY 12/17/16 Paroxetine HCl [Paxil] 40 mg PO DAILY 12/17/16 diphenhydramine 25 mg tablet 25 mg PO Q6H PRN 03/20/17 nitroglycerin 0.4 mg sublingual 0.4 mg SUBLINGUAL Q5M PRN #25 tab 03/25/17 tablet ranolazine ER 500 mg 500 mg PO BID #180 tab 03/25/17 tablet,extended release,12 hr losartan 50 mg tablet 50 mg PO DAILY #90 tab 10/17/17 clopidogrel 75 mg tablet 75 mg PO DAILY #90 tab 10/23/17 Carvedilol [Coreg (Beta Tata)] 3.125 mg PO BID #60 tab 11/12/17 Carvedilol [Coreg (Beta Tata)] 11/23/17 Cholecalciferol (Vitamin D3) 50,000 unit PO QWEEK 11/23/17 [Vitamin D3] Isosorbide Mononitrate [Imdur] 90 mg PO QDAY 11/23/17 Levalbuterol HCl [Levalbuterol HCl] 0.63 mg INHALATION 4X/DAY PRN 11/23/17 Metoprolol Tartrate [Lopressor 25 mg PO DAILY 11/23/17 (beta tata)] Pantoprazole Sodium [Protonix] 20 mg PO DAILY 11/23/17 buPROPion SR [Wellbutrin SR (150mg 150 mg PO DAILY 11/23/17 tablets)] busPIRone [Buspar] 15 mg PO DAILY 11/23/17 Surgical History: Surgical History (Last Reviewed 11/23/17 @ 13:04 by Jackson Peter DO) H/O tubal ligation Z98.51 History of left heart catheterization Z98.890 Hx of appendectomy Z98.890, Z90.49 S/P femoral-femoral bypass surgery Z95.828 with gorortex graft in 2001; removal of infected graft with reconstructions of right superficial artery in 2002 Surgical History: appendectomy, - - cad with stent Psychiatric History: No pertinent 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 hx 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 Smoking Status: Current every day smoker - *Family History Maternal Family History: Family History (Last Reviewed 11/23/17 @ 13:04 by Jackson Peter DO) Mother CAD (coronary artery disease) Hypertension Sister CAD (coronary artery disease) Myocardial infarction History Items: Diabetes, Heart Disease, Stroke Paternal Family History: Family History (Last Reviewed 11/23/17 @ 13:04 by Jackson Peter DO) Mother CAD (coronary artery disease) Hypertension Sister CAD (coronary artery disease) Myocardial infarction History Items: Diabetes, Stroke Review of Systems Unable to obtain accurate/complete ROS d/t: Intubated. See HPI. Patient Problems: Active and Suspected Problems (Last Reviewed 11/23/17 @ 13:04 by Jackson Peter DO) Acute respiratory failure with hypoxia and hypercapnia (Acute) COPD with acute exacerbation (Acute) Gram-negative pneumonia (Acute) Acute hypercapnic respiratory failure (Acute) Objective: Chest x-rays were personally reviewed. This does show an endotracheal tube high in the trachea. OG is in good position. Bilateral infiltrates appreciated. Recent echocardiogram completed earlier this month shows an EF of 25% with stage I diastolic dysfunction and severe mitral annular calcification. Right ventricular systolic pressure estimated at 39 mmHg. - Physical Exam General: - - RASS 0. Good ventilator synchrony noted. Appears older than stated age. HEENT: Atraumatic, PERRLA, EOMI, Normocephalic, - - No scleral icterus or injection noted. Oral: Moist Mucosa, No Gingival or Mucosal Lesions/ Ulcerations Neck: Supple, No Nodes, Trachea Midline, JVD, Right Lungs: No rhonchi, Diminished, Rales, Wheezes - Sporadic, - - Symmetric expansion. No dullness to percussion. Cardiovascular: Regular rate, Regular Rhythm, Normal S1, Normal S2, Murmur - Grade 2 out of 6 systolic ejection murmur at the apex, No rub noted, No Gallop Abdomen: Bowel Sounds Present, Soft, Non Tender, Non-Distended Extremities: No cyanosis, No edema, Capillary Refill Less than 3 Seconds, Clubbing Skin: No rashes, No breakdown Musculoskeletal: No Tenderness to Palpation of Joints or Extremities Lymphatic: No Cervical, Supraclavicular, or Inguinal Adenopathy Neurological: Cranial nerves II-XII grossly intact, Neuro grossly intact, Motor Exam 5/5 strength throughout Psych/Mental Status: Appropriate Vital Signs Temp Pulse Resp BP Pulse Ox 36.8 C 73 16 113/62 94 11/24/17 05:00 11/24/17 06:00 11/24/17 06:00 11/24/17 06:00 11/24/17 06:00 Oxygen Delivery Method Mechanical Ventilator Weight: 70.7 kg Body Mass Index (BMI) 27.5 Intake and Output for Last 24 Hours 11/22/17 11/23/17 11/24/17 23:59 23:59 23:59 Intake Total 769 / 769 521 / 521 Output Total 450 / 450 100 / 100 Balance 319 / 319 421 / 421 Microbiology Past 72 Hours 11/23/17 19:55 Streptococcus pneumoniae Antigen (M - Final Urine Catheter - Burk 11/23/17 19:55 Legionella Antigen - Final Urine Catheter - Burk 11/23/17 18:30 Influenza Types A,B Direct FA (CORY) - Final Mucosa - Nose Laboratory Tests Past 24 Hrs 11/23/17 11/23/17 11/23/17 18:30 18:35 21:30 WBC RBC Hgb Hct MCV MCH MCHC RDW RDW Differential Plt Count MPV Specimen Type ART Sample Site R Brachial pH 7.39 Bicarbonate Actual 27.5 H POC Total CO2 29 Base Excess 3 H O2 Saturation 96 O2 % 40 ABG pCO2 45.1 H ABG pO2 84 Angelo Test NA Respiration Rate 12 O2 Delivery Device Vent Vent Mode A-C Tidal Volume 450 POC PEEP 5 Blood Gas Notified Whom [facility] Blood Gas Notified Time 1830 Sodium Potassium Chloride Carbon Dioxide Anion Gap BUN Creatinine Estim Creat Clear Calc Est GFR (MDRD) Af Amer Est GFR (MDRD) Non-Af BUN/Creatinine Ratio Glucose Calcium Troponin I 0.382 H 0.454 H 11/24/17 11/24/17 03:55 03:55 WBC 12.6 H RBC 2.99 L Hgb 9.0 L Hct 28.8 L MCV 96.3 MCH 30.1 MCHC 31.3 L RDW 14.8 H RDW Differential 48.6 H Plt Count 358 MPV 9.0 Specimen Type Sample Site pH Bicarbonate Actual POC Total CO2 Base Excess O2 Saturation O2 % ABG pCO2 ABG pO2 Angelo Test Respiration Rate O2 Delivery Device Vent Mode Tidal Volume POC PEEP Blood Gas Notified Whom Blood Gas Notified Time Sodium 145 Potassium 4.3 Chloride 109 H Carbon Dioxide 29.0 Anion Gap 7 BUN 24 H Creatinine 1.00 Estim Creat Clear Calc 40.22 Est GFR (MDRD) Af Amer 70 Est GFR (MDRD) Non-Af 58 L BUN/Creatinine Ratio 24.1 H Glucose 111 H Calcium 7.8 L Troponin I Clinical Impression(s) from Imaging Studies Chest X-Ray 11/23/17 10:35 IMPRESSION: Advanced chronic lung disease. Cannot exclude superimposed mild edema and/or atypical infiltrates. Electronically Signed: Linette Pickard MD at 11:38 EDT Tel , Service support , Chest X-Ray 11/23/17 12:57 IMPRESSION: 1. ET tube tip is at the thoracic inlet. 2. OG tube tip is inside the gastric cavity but the sidehole is at the EEG junction. Distal repositioning will help. 3. COPD with chronic interstitial lung disease. This is unchanged when compared to 11/23/2017 at 11:09 AM. Electronically Signed: Israel Perdue MD at 16:07 EDT , Service support , Chest X-Ray 11/23/17 16:24 IMPRESSION: Stable appearance of the chest. New right internal jugular catheter with tip projected into the mid-SVC. No complications noted. Electronically Signed: Jacob Garay MD at 17:09 EDT , Service support , Assessment/Plan Active and Suspected Problems (Last Reviewed 11/23/17 @ 13:04 by Jackson Peter DO) Acute respiratory failure with hypoxia and hypercapnia (Acute) COPD with acute exacerbation (Acute) Gram-negative pneumonia (Acute) Acute hypercapnic respiratory failure (Acute) RECOMMENDATIONS: 1. Obtain sputum culture 2. Advanced endotracheal tube 2 cm 3. Gentle diuresis 4. Continue antibiotics, Solu-Medrol and bronchodilators 5. Spontaneous awakening and breathing trials per protocol 6. Initiate tube feeds IMPRESSIONS: 1. Acute on chronic combined respiratory failure secondary to probable COPD exacerbation Patient with bilateral infiltrates noted on chest x-ray. Patient's endotracheal tube is high and needs to be advanced 2 cm. Patient will benefit from a gentle diuresis. Obtain sputum culture. Continue aggressive pulmonary toileting, IV steroids and bronchodilators. Wean oxygen as tolerated. Spontaneous awakening and breathing trials per protocol. Likely okay to initiate tube feeds. Will check MRSA swab to see if vancomycin can be discontinued. 2. Acute on chronic systolic congestive heart failure/coronary artery disease Last known ejection fraction of 25%. Patient does have an elevation of troponin, but this likely represents supply demand mismatch. Patient did have a recent heart catheterization with stent placement. Defer to hospitalist on whether cardiology needs to be involved. Patient should remain on medical therapy. Plavix in place. 3. Tobacco abuse despite oxygen therapy/hypertension/hyperlipidemia/peripheral vascular disease/recent non-ST elevation NH Complicates care, management, recovery and prognosis. Unclear baseline respiratory status and whether oxygen is secondary to congestive heart failure or advanced COPD. Patient would benefit from outpatient pulmonary function tests, smoking cessation and optimization of saturations. Likely okay to continue with baseline medications. TIME: 35 minutes critical care time spent addressing patient's acute on chronic combined respiratory failure, CHF, review of all data and collaboration with care team (6 AM to 7 AM) Code Visit 9xxxx: [id number] Critical care first hour
--- NOTE | 2017-11-24 07:06 | CON.PCM_ITS ---
Problem List (1) Acute respiratory failure with hypoxia and hypercapnia Status: Acute (2) COPD with acute exacerbation Status: Acute (3) Gram-negative pneumonia Status: Acute (4) Acute hypercapnic respiratory failure Status: Acute (5) COPD exacerbation Status: Acute (6) CAD (coronary artery disease) Status: Chronic Qualifiers: Coronary Disease-Associated Artery/Lesion type: [place] artery [place] vs. transplanted heart: [place] heart Associated angina: without angina Qualified Code(s): I25.10 - Atherosclerotic heart disease of [place] coronary artery without angina pectoris Comment: Successful PTCA/SUSAN of the of mid/distal RCA with a 2.25 x 38 Promus Synergy, post dilated proximally with a 3.0 x 12 NC balloon at 8 safia (2.5mm); 75 %-->0%, no dissection. Successful PTCA/SUSAN of the proximal RCA with a 2.5 x 20 Promus Synergy, post dilated with a 3.0 x 12 at 14 safia; 75%-->0%, no dissection. (7) Tobacco abuse Status: Chronic (8) Nonrheumatic tricuspid (valve) insufficiency Status: Chronic (9) Nonrheumatic mitral valve insufficiency Status: Chronic (10) Hypertension Status: Chronic Qualifiers: Hypertension type: essential hypertension (11) Hyperlipidemia Status: Chronic Qualifiers: Hyperlipidemia type: pure hypercholesterolemia Qualified Code(s): E78.00 - Pure hypercholesterolemia, unspecified; E78.0 - Pure hypercholesterolemia (12) Peripheral vascular disease Status: Chronic Reason for Consult Date of Consultation: 11/24/17 Reason for Consultation: Respiratory failure History of Present Illness: The patient is a 72 year old F with past medical history listed below, who presented to [facility] on 11/23/2017 secondary to shortness of breath. Patient is currently intubated and unable to provide significant history. Most of the history was per electronic medical records. Patient reportedly had acute onset of shortness of breath upon waking. Patient was placed on a nonrebreather by EMS secondary to hypoxemia was noted to be 96% on presentation. In the emergency room, patient was started on BiPAP and was found to have sinus tachycardia with a heart rate of 126 bpm. Patient was given aerosols and IV Solu-Medrol. Patient does have a reported penicillin allergy, but this was not verified prior to patient requiring intubation given decreased responsiveness on BiPAP. Patient was transferred to the intensive care unit. Overnight, patient has remained hemodynamically stable, but this morning was unable to tolerate more than 30 minutes of spontaneous awakening trial. Patient became tachypneic and tachycardic. Patient was placed back on the ventilator. Patient denied any pain. No family was at the bedside during my evaluation. Patient reportedly had a recent admission to [facility] from November 09- secondary to COPD exacerbation and non-ST elevation [place]. Patient is chronically on supplemental oxygen at home, but reportedly continues to smoke. Patient does remove her oxygen to smoke and no inhalation injury was noted on initial presentation by EMS. Review of the medical record shows no current pulmonary evaluation. Patient was not seen by pulmonology during last hospitalization earlier this month. No pulmonary function tests are available for review. Past Medical History Past Medical History (Chronic Problems): Chronic Problems (Last Reviewed 11/23/17 @ 13:04 by Jackson Peter DO) CAD (coronary artery disease) (Chronic) Successful PTCA/SUSAN of the of mid/distal RCA with a 2.25 x 38 Promus Synergy, post dilated proximally with a 3.0 x 12 NC balloon at 8 safia (2.5mm); 75%-->0%, no dissection. Successful PTCA/SUSAN of the proximal RCA with a 2.5 x 20 Promus Synergy, post dilated with a 3.0 x 12 at 14 safia; 75%-->0%, no dissection. Tobacco abuse (Chronic) Nonrheumatic tricuspid (valve) insufficiency (Chronic) Nonrheumatic mitral valve insufficiency (Chronic) Nicotine dependence, cigarettes, uncomplicated (Chronic) Hypertension (Chronic) Hyperlipidemia (Chronic) Atherosclerosis of [place] coronary artery of [place] heart without angina pectoris (Chronic) PTCA/SUSAN to ostium of LMT 10/01/2014 @[facility]; Peripheral vascular disease (Chronic) SOB (shortness of breath) (Chronic) Medical History: Medical History (Last Reviewed 11/23/17 @ 13:04 by Jackson Peter DO) Nonrheumatic tricuspid (valve) insufficiency (Chronic) I36.1 Nonrheumatic mitral valve insufficiency (Chronic) I34.0 Nicotine dependence, cigarettes, uncomplicated (Chronic) F17.210 Hypertension (Chronic) I10 Hyperlipidemia (Chronic) E78.5 Atherosclerosis of [place] coronary artery of [place] heart without angina pectoris (Chronic) I25.10 PTCA/SUSAN to ostium of LMT 10/01/2014 @[facility]; Peripheral vascular disease (Chronic) I73.9 SOB (shortness of breath) (Chronic) R06.02 Anemia D64.9 COPD (chronic obstructive pulmonary disease) J44.9 Diabetes mellitus E11.9 Fibromyalgia M79.7 GERD (gastroesophageal reflux disease) K21.9 Hyperlipidemia E78.5 MARISABEL (obstructive sleep apnea) G47.33 Allergies codeine Allergy (Unknown, Verified 11/23/17 11:02) Unknown lithium Allergy (Unknown, Verified 11/23/17 11:02) Unknown morphine Allergy (Unknown, Verified 11/23/17 11:02) Unknown naproxen [From Naprosyn] Allergy (Unknown, Verified 11/23/17 11:02) Unknown phenobarbital Allergy (Unknown, Verified 11/23/17 11:02) Unknown Sulfa (Sulfonamide Antibiotics) Allergy (Unknown, Verified 11/23/17 11:02) Unknown albuterol Allergy (Verified 11/23/17 11:02) Rash fentanyl Adverse Reaction (Severe, Verified 11/23/17 18:23) Other OD on Fentany patch. Very sensitive to does 75mcg patch Iodine and Iodide Containing Produc Adverse Reaction (Verified 11/23/17 11:02) Unknown Penicillins [PCN] Adverse Reaction (Verified 11/23/17 11:02) Unknown Home Medications: Ambulatory Orders Medication Instructions Recorded Amlodipine [Norvasc] 5 mg PO DAILY 07/13/14 Aspirin 81 mg PO DAILY@0800 07/13/14 Atorvastatin Calcium [Lipitor] 80 mg PO QHS 07/13/14 Cyclobenzaprine [Flexeril] 10 mg PO DAILY 07/13/14 Fenofibrate [Tricor] 145 mg PO DAILY 07/13/14 Gabapentin [Neurontin] 300 mg PO BIDCM 07/13/14 Ipratropium/Albuterol Sulfate 2 puff INHALATION 4X/DAY 07/13/14 Tiotropium [place] [Spiriva 18 MCG] 1 puff INHALATION DAILY 07/13/14 Vitamin D 50,000 units PO WE 07/13/14 Fluticasone/Vilanterol [Breo 1 ea IH DAILY 12/17/16 Ellipta 200-25 Mcg INH] Ipratropium [Atrovent Inhaler] 2 puff INHALATION 4X/DAY 12/17/16 Paroxetine HCl [Paxil] 40 mg PO DAILY 12/17/16 diphenhydramine 25 mg tablet 25 mg PO Q6H PRN 03/20/17 nitroglycerin 0.4 mg sublingual 0.4 mg SUBLINGUAL Q5M PRN #25 tab 03/25/17 tablet ranolazine ER 500 mg 500 mg PO BID #180 tab 03/25/17 tablet,extended release,12 hr losartan 50 mg tablet 50 mg PO DAILY #90 tab 10/17/17 clopidogrel 75 mg tablet 75 mg PO DAILY #90 tab 10/23/17 Carvedilol [Coreg (Beta Tata)] 3.125 mg PO BID #60 tab 11/12/17 Carvedilol [Coreg (Beta Tata)] 11/23/17 Cholecalciferol (Vitamin D3) 50,000 unit PO QWEEK 11/23/17 [Vitamin D3] Isosorbide Mononitrate [Imdur] 90 mg PO QDAY 11/23/17 Levalbuterol HCl [Levalbuterol HCl] 0.63 mg INHALATION 4X/DAY PRN 11/23/17 Metoprolol Tartrate [Lopressor 25 mg PO DAILY 11/23/17 (beta tata)] Pantoprazole Sodium [Protonix] 20 mg PO DAILY 11/23/17 buPROPion SR [Wellbutrin SR (150mg 150 mg PO DAILY 11/23/17 tablets)] busPIRone [Buspar] 15 mg PO DAILY 11/23/17 Surgical History: Surgical History (Last Reviewed 11/23/17 @ 13:04 by Jackson Peter DO) H/O tubal ligation Z98.51 History of left heart catheterization Z98.890 Hx of appendectomy Z98.890, Z90.49 S/P femoral-femoral bypass surgery Z95.828 with gorortex graft in 2001; removal of infected graft with reconstructions of right superficial artery in 2002 Surgical History: appendectomy, - - cad with stent Psychiatric History: No pertinent psych hx INDUSTRIAL RELATIONS REPRESENTATIVE History: No pertinent INDUSTRIAL RELATIONS REPRESENTATIVE history Smoking Status: Current every day smoker - *Family History Maternal Family History: Family History (Last Reviewed 11/23/17 @ 13:04 by Jackson Peter DO) Mother CAD (coronary artery disease) Hypertension Sister CAD (coronary artery disease) Myocardial infarction History Items: Diabetes, Heart Disease, Stroke Paternal Family History: Family History (Last Reviewed 11/23/17 @ 13:04 by Jackson Peter DO) Mother CAD (coronary artery disease) Hypertension Sister CAD (coronary artery disease) Myocardial infarction History Items: Diabetes, Stroke Review of Systems Unable to obtain accurate/complete ROS d/t: Intubated. See HPI. Patient Problems: Active and Suspected Problems (Last Reviewed 11/23/17 @ 13:04 by Jackson Peter DO) Acute respiratory failure with hypoxia and hypercapnia (Acute) COPD with acute exacerbation (Acute) Gram-negative pneumonia (Acute) Acute hypercapnic respiratory failure (Acute) Objective: Chest x-rays were personally reviewed. This does show an endotracheal tube high in the trachea. OG is in good position. Bilateral infiltrates appreciated. Recent echocardiogram completed earlier this month shows an EF of 25% with stage I diastolic dysfunction and severe mitral annular calcification. Right ventricular systolic pressure estimated at 39 mmHg. - Physical Exam General: - - RASS 0. Good ventilator synchrony noted. Appears older than stated age. HEENT: Atraumatic, PERRLA, EOMI, Normocephalic, - - No scleral icterus or injection noted. Oral: Moist Mucosa, No Gingival or Mucosal Lesions/ Ulcerations Neck: Supple, No Nodes, Trachea Midline, JVD, Right Lungs: No rhonchi, Diminished, Rales, Wheezes - Sporadic, - - Symmetric expansion. No dullness to percussion. Cardiovascular: Regular rate, Regular Rhythm, Normal S1, Normal S2, Murmur - Grade 2 out of 6 systolic ejection murmur at the apex, No rub noted, No Gallop Abdomen: Bowel Sounds Present, Soft, Non Tender, Non-Distended Extremities: No cyanosis, No edema, Capillary Refill Less than 3 Seconds, Clubbing Skin: No rashes, No breakdown Musculoskeletal: No Tenderness to Palpation of Joints or Extremities Lymphatic: No Cervical, Supraclavicular, or Inguinal Adenopathy Neurological: Cranial nerves II-XII grossly intact, Neuro grossly intact, Motor Exam 5/5 strength throughout Psych/Mental Status: Appropriate Vital Signs Temp Pulse Resp BP Pulse Ox 36.8 C 73 16 113/62 94 11/24/17 05:00 11/24/17 06:00 11/24/17 06:00 11/24/17 06:00 11/24/17 06:00 Oxygen Delivery Method Mechanical Ventilator Weight: 70.7 kg Body Mass Index (BMI) 27.5 Intake and Output for Last 24 Hours 11/22/17 11/23/17 11/24/17 23:59 23:59 23:59 Intake Total 769 / 769 521 / 521 Output Total 450 / 450 100 / 100 Balance 319 / 319 421 / 421 Microbiology Past 72 Hours 11/23/17 19:55 Streptococcus pneumoniae Antigen (M - Final Urine Catheter - Burk 11/23/17 19:55 Legionella Antigen - Final Urine Catheter - Burk 11/23/17 18:30 Influenza Types A,B Direct FA (CORY) - Final Mucosa - Nose Laboratory Tests Past 24 Hrs 11/23/17 11/23/17 11/23/17 18:30 18:35 21:30 WBC RBC Hgb Hct MCV MCH MCHC RDW RDW Differential Plt Count MPV Specimen Type ART Sample Site R Brachial pH 7.39 Bicarbonate Actual 27.5 H POC Total CO2 29 Base Excess 3 H O2 Saturation 96 O2 % 40 ABG pCO2 45.1 H ABG pO2 84 Angelo Test NA Respiration Rate 12 O2 Delivery Device Vent Vent Mode A-C Tidal Volume 450 POC PEEP 5 Blood Gas Notified Whom [facility] Blood Gas Notified Time 1830 Sodium Potassium Chloride Carbon Dioxide Anion Gap BUN Creatinine Estim Creat Clear Calc Est GFR (MDRD) Af Amer Est GFR (MDRD) Non-Af BUN/Creatinine Ratio Glucose Calcium Troponin I 0.382 H 0.454 H 11/24/17 11/24/17 03:55 03:55 WBC 12.6 H RBC 2.99 L Hgb 9.0 L Hct 28.8 L MCV 96.3 MCH 30.1 MCHC 31.3 L RDW 14.8 H RDW Differential 48.6 H Plt Count 358 MPV 9.0 Specimen Type Sample Site pH Bicarbonate Actual POC Total CO2 Base Excess O2 Saturation O2 % ABG pCO2 ABG pO2 Angelo Test Respiration Rate O2 Delivery Device Vent Mode Tidal Volume POC PEEP Blood Gas Notified Whom Blood Gas Notified Time Sodium 145 Potassium 4.3 Chloride 109 H Carbon Dioxide 29.0 Anion Gap 7 BUN 24 H Creatinine 1.00 Estim Creat Clear Calc 40.22 Est GFR (MDRD) Af Amer 70 Est GFR (MDRD) Non-Af 58 L BUN/Creatinine Ratio 24.1 H Glucose 111 H Calcium 7.8 L Troponin I Clinical Impression(s) from Imaging Studies Chest X-Ray 11/23/17 10:35 IMPRESSION: Advanced chronic lung disease. Cannot exclude superimposed mild edema and/or atypical infiltrates. Electronically Signed: Linette Pickard MD at 11:38 EDT Tel , Service support , Chest X-Ray 11/23/17 12:57 IMPRESSION: 1. ET tube tip is at the thoracic inlet. 2. OG tube tip is inside the gastric cavity but the sidehole is at the EEG junction. Distal repositioning will help. 3. COPD with chronic interstitial lung disease. This is unchanged when compared to 11/23/2017 at 11:09 AM. Electronically Signed: Israel Perdue MD at 16:07 EDT , Service support , Chest X-Ray 11/23/17 16:24 IMPRESSION: Stable appearance of the chest. New right internal jugular catheter with tip projected into the mid-SVC. No complications noted. Electronically Signed: Jacob Garay MD at 17:09 EDT , Service support , Assessment/Plan Active and Suspected Problems (Last Reviewed 11/23/17 @ 13:04 by Jackson Peter DO) Acute respiratory failure with hypoxia and hypercapnia (Acute) COPD with acute exacerbation (Acute) Gram-negative pneumonia (Acute) Acute hypercapnic respiratory failure (Acute) RECOMMENDATIONS: 1. Obtain sputum culture 2. Advanced endotracheal tube 2 cm 3. Gentle diuresis 4. Continue antibiotics, Solu-Medrol and bronchodilators 5. Spontaneous awakening and breathing trials per protocol 6. Initiate tube feeds IMPRESSIONS: 1. Acute on chronic combined respiratory failure secondary to probable COPD exacerbation Patient with bilateral infiltrates noted on chest x-ray. Patient's endotracheal tube is high and needs to be advanced 2 cm. Patient will benefit from a gentle diuresis. Obtain sputum culture. Continue aggressive pulmonary toileting, IV steroids and bronchodilators. Wean oxygen as tolerated. Spontaneous awakening and breathing trials per protocol. Likely okay to initiate tube feeds. Will check MRSA swab to see if vancomycin can be discontinued. 2. Acute on chronic systolic congestive heart failure/coronary artery disease Last known ejection fraction of 25%. Patient does have an elevation of troponin, but this likely represents supply demand mismatch. Patient did have a recent heart catheterization with stent placement. Defer to hospitalist on whether cardiology needs to be involved. Patient should remain on medical therapy. Plavix in place. 3. Tobacco abuse despite oxygen therapy/hypertension/hyperlipidemia/ peripheral vascular disease/recent non-ST elevation [place] Complicates care, management, recovery and prognosis. Unclear baseline respiratory status and whether oxygen is secondary to congestive heart failure or advanced COPD. Patient would benefit from outpatient pulmonary function tests, smoking cessation and optimization of saturations. Likely okay to continue with baseline medications. TIME: 35 minutes critical care time spent addressing patient's acute on chronic combined respiratory failure, CHF, review of all data and collaboration with care team (6 AM to 7 AM) Code Visit 9xxxx: [id number] Critical care first hour
--- NOTE | 2017-11-24 08:25 | PN_ITS ---
Patient Problems: Active and Suspected Problems (Last Reviewed 11/23/17 @ 13:04 by Jackson Peter DO) Acute respiratory failure with hypoxia and hypercapnia (Acute) COPD with acute exacerbation (Acute) Gram-negative pneumonia (Acute) Acute hypercapnic respiratory failure (Acute) Subjective: Patient is still intubated. Patient got tachypneic and tachycardic during a spontaneous breathing trial. Clinical updates were given to patient's son and daughter near the bedside. Patient is awake and follows verbal command. On daily spontaneous awakening and breathing trials as per protocol Vitals/I&O's: Vital Signs Temp Pulse Resp BP Pulse Ox 97.7 F L 85 23 H 139/72 H 96 11/24/17 07:00 11/24/17 08:00 11/24/17 08:00 11/24/17 08:00 11/24/17 08:00 Oxygen Delivery Method Mechanical Ventilator Weight: 155 lb 13.869 oz Body Mass Index (BMI) 27.5 Intake and Output for Last 24 Hours 11/22/17 11/23/17 11/24/17 23:59 23:59 23:59 Intake Total 769 / 769 551 / 551 Output Total 450 / 450 100 / 100 Balance 319 / 319 451 / 451 General: - - Awake. HEENT: Atraumatic, PERRLA, EOMI, Normocephalic Neck: Supple, No JVD, Negative Carotid Bruits Lungs: No rhonchi, No wheeze Cardiovascular: Regular rate, Normal S1, Normal S2, No murmurs Abdomen: Bowel Sounds Present, Soft, Non Tender, Non-Distended Extremities: No edema, Capillary Refill Less than 3 Seconds Skin: No rashes, No breakdown Musculoskeletal: No Tenderness to Palpation of Joints or Extremities, Arthritic Changes Neurological: Cranial nerves II-XII grossly intact Psych/Mental Status: Normal Affect, Appropriate Microbiology Past 72 Hours 11/23/17 19:55 Urine Catheter - Burk Streptococcus pneumoniae Antigen (M - Final 11/23/17 19:55 Urine Catheter - Burk Legionella Antigen - Final 11/23/17 18:30 Mucosa - Nose Influenza Types A,B Direct FA (CORY) - Final Laboratory Results 11/23/17 18:30: Troponin I 0.382 H 11/23/17 18:35: Specimen Type ART, Sample Site R Brachial, pH 7.39, Bicarbonate Actual 27.5 H, POC Total CO2 29, Base Excess 3 H, O2 Saturation 96, O2 % 40, ABG pCO2 45.1 H, ABG pO2 84, Angelo Test NA, Respiration Rate 12, O2 Delivery Device Vent, Vent Mode A-C, Tidal Volume 450, POC PEEP 5, Blood Gas Notified Whom JESUS IVEY, Blood Gas Notified Time 1830 11/23/17 21:30: Troponin I 0.454 H 11/24/17 03:55: WBC 12.6 H, RBC 2.99 L, Hgb 9.0 L, Hct 28.8 L, MCV 96.3, MCH 30.1, MCHC 31.3 L, RDW 14.8 H, RDW Differential 48.6 H, Plt Count 358, MPV 9.0 11/24/17 03:55: Sodium 145, Potassium 4.3, Chloride 109 H, Carbon Dioxide 29.0, Anion Gap 7, BUN 24 H, Creatinine 1.00, Estim Creat Clear Calc 40.22, Est GFR ( MDRD) Af Amer 70, Est GFR (MDRD) Non-Af 58 L, BUN/Creatinine Ratio 24.1 H, Glucose 111 H, Calcium 7.8 L Current Medications Aspirin (Aspirin, Baby) 81 mg PO DAILY@0800 [facility] Atorvastatin Calcium (Lipitor) 80 mg PO QHS [facility] Last Admin: 11/23/17 21:28 Dose: 80 mg Bupropion HCl (Wellbutrin Sr (150mg Tablets)) 150 mg PO DAILY [facility] Carvedilol (Coreg) 3.125 mg PO BID [facility] Last Admin: 11/23/17 21:28 Dose: 3.125 mg Chlorhexidine Gluconate () 15 ml PO BID [facility] Last Admin: 11/23/17 21:27 Dose: 15 ml Chlorhexidine Gluconate () 1 each TOPICAL DAILY [facility] Clopidogrel Bisulfate (Plavix) 75 mg PO DAILY [facility] Enoxaparin Sodium (Lovenox) 40 mg SC DAILY@1000 [facility] Famotidine (Pepcid) 20 mg GT DAILY [facility] Last Admin: 11/23/17 21:28 Dose: 20 mg Furosemide (Lasix) 20 mg IV BID@1000,1800 [facility] Sodium Chloride () 1,000 mls @ 75 mls/hr IV .[id number] [facility] Last Admin: 11/23/17 19:39 Dose: 75 mls/hr Aztreonam 2 gm/ Dextrose 100 mls @ 150 mls/hr IV Q8 [facility] Last Admin: 11/24/17 05:44 Dose: 150 mls/hr Propofol (Diprivan) 1,000 mg in 100 mls @ 2.103 mls/hr CONT INF .Q12H NAIF; 5 MCG/KG/MIN PRN Reason: Protocol Last Admin: 11/24/17 04:37 Dose: 2.103 mls/hr Vancomycin HCl (Vancomycin) 1,000 mg in 200 mls @ 200 mls/hr IV Q24H NAIF Vancomycin IV Pharmacy to Dose (1 ea/ Sodium Chloride) 500 mls @ 250 mls/hr IV PRN PRN; Protocol PRN Reason: Rx to Dose Fentanyl () 100 mls @ 2.5 mls/hr IV .Q40H [facility] Last Admin: 11/24/17 06:44 Dose: 2.5 mls/hr Influenza Virus Vaccine Quadrival (Fluarix/Fluzone) 0.5 ml IM .ONCE ONE Stop: 11/24/17 10:01 Levalbuterol HCl (Xopenex) 0.63 mg IH Q4HWA.RT NAIF Last Admin: 11/24/17 07:02 Dose: 0.63 mg Losartan Potassium (Cozaar) 50 mg PO DAILY [facility] Magnesium Hydroxide (Milk Of Magnesia) 30 ml PO DAILY PRN PRN PRN Reason: Constipation Methylprednisolone (Solu-Medrol) 40 mg IV Q8 [facility] Last Admin: 11/24/17 05:44 Dose: 40 mg Ondansetron HCl (Zofran) 4 mg IV Q8H PRN PRN PRN Reason: Nausea Sodium Chloride () 5 - 30 ml IV UD PRN PRN Reason: SALINE FLUSH Last Admin: 11/23/17 19:40 Dose: 10 ml Sodium Chloride () 10 - 40 ml IV UD PRN PRN Reason: MULTILUMEN/HICMAN CATH FLUSH Last Admin: 11/24/17 05:44 Dose: 10 ml Medical Necessity - Tobacco Use Smoking Status: Current every day smoker Assessment/Plan All Active Problems (Last Reviewed 11/23/17 @ 13:04 by Jackson Peter DO) Acute respiratory failure with hypoxia and hypercapnia (Acute) COPD with acute exacerbation (Acute) Gram-negative pneumonia (Acute) Acute hypercapnic respiratory failure (Acute) NSTEMI (non-ST elevated myocardial infarction) (Acute) COPD exacerbation (Acute) Congestive heart failure (Acute) This is a 72-year-old female with history of COPD was admitted with shortness of breath consistent with COPD exacerbation. Patient was lethargic and initially put on BiPAP but later on intubated in the ER. Chest x-ray was consistent with infiltrates and bilateral lung bases along with chronic changes of COPD and fibrotic interstitial markings. With the concern of pneumonia, patient started on IV antibiotics. 1. Acute hypercapnic respiratory failure * Suspect due to COPD exacerbation as well as pneumonia. * Vent management as per national insurance officer. Currently on 35% FiO2/450 mL tidal volume /5 PEEP 2. Acute COPD exacerbation * Steroids * Patient has rash with albuterol so patient will continue with her Xopenex 3. Suspected gram-negative pneumonia bilateral lower lobes * Urinary antigens are negative. Influenza is negative. Sputum culture is pending. * Aztreonam, as patient has a penicillin allergy, and vancomycin 4. Heart failure with reduced ejection fraction * Clinically, patient does not look in fluid overload state. BNP elevated most probably chronically elevated. Lasix as needed. * Previous ejection fraction was 25% from echocardiogram on November 09 * Continue with carvedilol and losartan 5. Coronary artery disease * Recent drug-eluting stents to the distal and mid RCA on November 11 * First troponin is negative second 0.382 and 0.454 mildly elevated possible related to demand supply mismatch. * Continue with dual antiplatelet therapy * Follow-up with cardiology as outpatient * If any acute issues arise while the patient is hospitalized, consult cardiology 6. DVT prophylaxis with Lovenox Active Medications Aspirin (Aspirin, Baby) 81 mg PO DAILY@0800 [facility] Last Admin: 11/24/17 10:23 Dose: 81 mg Atorvastatin Calcium (Lipitor) 80 mg PO QHS [facility] Last Admin: 11/23/17 21:28 Dose: 80 mg Bupropion HCl (Wellbutrin Sr (150mg Tablets)) 150 mg PO DAILY [facility] Last Admin: 11/24/17 10:25 Dose: 150 mg Carvedilol (Coreg) 3.125 mg PO BID [facility] Last Admin: 11/24/17 10:23 Dose: 3.125 mg Chlorhexidine Gluconate () 15 ml PO BID [facility] Last Admin: 11/24/17 10:23 Dose: 15 ml Chlorhexidine Gluconate () 1 each TOPICAL DAILY [facility] Clopidogrel Bisulfate (Plavix) 75 mg PO DAILY [facility] Last Admin: 11/24/17 10:25 Dose: 75 mg Enoxaparin Sodium (Lovenox) 40 mg SC DAILY@1000 [facility] Last Admin: 11/24/17 10:25 Dose: 40 mg Famotidine (Pepcid) 20 mg GT DAILY [facility] Last Admin: 11/24/17 10:24 Dose: 20 mg Furosemide (Lasix) 20 mg IV BID@1000,1800 [facility] Last Admin: 11/24/17 10:24 Dose: 20 mg Sodium Chloride () 1,000 mls @ 75 mls/hr IV .[id number] [facility] Last Admin: 11/24/17 10:21 Dose: 75 mls/hr Aztreonam 2 gm/ Dextrose 100 mls @ 150 mls/hr IV Q8 [facility] Last Admin: 11/24/17 05:44 Dose: 150 mls/hr Propofol (Diprivan) 1,000 mg in 100 mls @ 2.103 mls/hr CONT INF .Q12H [facility]; 5 MCG/KG/MIN PRN Reason: Protocol Last Admin: 11/24/17 04:37 Dose: 2.103 mls/hr Vancomycin HCl (Vancomycin) 1,000 mg in 200 mls @ 200 mls/hr IV Q24H [facility] Vancomycin IV Pharmacy to Dose (1 ea/ Sodium Chloride) 500 mls @ 250 mls/hr IV PRN PRN; Protocol PRN Reason: Rx to Dose Fentanyl () 100 mls @ 2.5 mls/hr IV .Q40H [facility] Last Admin: 11/24/17 06:44 Dose: 2.5 mls/hr Levalbuterol HCl (Xopenex) 0.63 mg IH Q4HWA.RT [facility] Last Admin: 11/24/17 07:02 Dose: 0.63 mg Losartan Potassium (Cozaar) 50 mg PO DAILY [facility] Last Admin: 11/24/17 10:23 Dose: 50 mg Magnesium Hydroxide (Milk Of Magnesia) 30 ml PO DAILY PRN PRN PRN Reason: Constipation Methylprednisolone (Solu-Medrol) 40 mg IV Q8 [facility] Last Admin: 11/24/17 05:44 Dose: 40 mg Ondansetron HCl (Zofran) 4 mg IV Q8H PRN PRN PRN Reason: Nausea Sodium Chloride () 5 - 30 ml IV UD PRN PRN Reason: SALINE FLUSH Last Admin: 11/23/17 19:40 Dose: 10 ml Sodium Chloride () 10 - 40 ml IV UD PRN PRN Reason: MULTILUMEN/HICMAN CATH FLUSH Last Admin: 11/24/17 05:44 Dose: 10 ml Microbiology Past 72 Hours 11/23/17 19:55 Urine Catheter - Burk Streptococcus pneumoniae Antigen (M - Final 11/23/17 19:55 Urine Catheter - Burk Legionella Antigen - Final 11/23/17 18:30 Mucosa - Nose Influenza Types A,B Direct FA (CORY) - Final Laboratory Results 11/23/17 11:01: WBC 24.4 H, RBC 4.15 L, Hgb 12.1, Hct 39.6, MCV 95.4, MCH 29.2, MCHC 30.6 L, RDW 14.9 H, RDW Differential 51.2 H, Plt Count 640 H, MPV 9.5, Immature Gran % (Auto) 1.200 H, Neut % (Auto) 69.7, Lymph % (Auto) 20.9, [place] % (Auto) 6.2, Eos % (Auto) 1.8, Baso % (Auto) 0.2, Absolute Neuts (auto) 17.0 H, Absolute Lymphs (auto) 5.10 H, Total Counted Not Reportable, Nucleated RBC % 0.3 , Differential Comment SCANNED, Diff Path Review May foll, Platelet Estimate [employer], Absolute Retic 0.08 11/23/17 11:01: Sodium 138, Potassium 4.4, Chloride 103, Carbon Dioxide 26.0, Anion Gap 9, BUN 18, Creatinine 1.21 H, Estim Creat Clear Calc 34.76, Est GFR ( MDRD) Af Amer 56 L, Est GFR (MDRD) Non-Af 46 L, BUN/Creatinine Ratio 14.9, Glucose 293 H, Calcium 8.5, Troponin I 0.025 11/23/17 11:01: B-Natriuretic Peptide 1012.8 H 11/23/17 11:11: Specimen Type DIEGO, Sample Site L Radial, O2 % 75, VBG pH 7.28 L , VBG pO2 93 H, VBG O2 Sat (Calc) 96 H, VBG O2 Content 31, VBG Base Excess 2, POC Mix VBG pCO2 Pt Tmp 62.1 H, Respiration Rate 12, O2 Delivery Device Bi / C PAP, EPAP 5, IPAP 10, Blood Gas Notified Whom ED , Blood Gas Notified Time 1100 11/23/17 18:30: Troponin I 0.382 H 11/23/17 18:35: Specimen Type ART, Sample Site R Brachial, pH 7.39, Bicarbonate Actual 27.5 H, POC Total CO2 29, Base Excess 3 H, O2 Saturation 96, O2 % 40, ABG pCO2 45.1 H, ABG pO2 84, Angelo Test NA, Respiration Rate 12, O2 Delivery Device Vent, Vent Mode A-C, Tidal Volume 450, POC PEEP 5, Blood Gas Notified Whom HOSP , Blood Gas Notified Time 1830 11/23/17 21:30: Troponin I 0.454 H 11/24/17 03:55: WBC 12.6 H, RBC 2.99 L, Hgb 9.0 L, Hct 28.8 L, MCV 96.3, MCH 30.1, MCHC 31.3 L, RDW 14.8 H, RDW Differential 48.6 H, Plt Count 358, MPV 9.0 11/24/17 03:55: Sodium 145, Potassium 4.3, Chloride 109 H, Carbon Dioxide 29.0, Anion Gap 7, BUN 24 H, Creatinine 1.00, Estim Creat Clear Calc 40.22, Est GFR ( MDRD) Af Amer 70, Est GFR (MDRD) Non-Af 58 L, BUN/Creatinine Ratio 24.1 H, Glucose 111 H, Calcium 7.8 L Clinical Impression(s) from Imaging Studies Chest X-Ray 11/23/17 16:24 IMPRESSION: Stable appearance of the chest. New right internal jugular catheter with tip projected into the mid-SVC. No complications noted. Clinical Impression(s) from Imaging Studies Chest X-Ray 11/23/17 10:35 IMPRESSION: Advanced chronic lung disease. Cannot exclude superimposed mild edema and/or atypical infiltrates. Code Visit Inpatient E&M: 30318 Subs Hosp L3
[2017-11-24] MEDS: 0.9% Normal Saline 1,000 ML 75 ML IV (10:21)
[2017-11-24] MEDS: Losartan Potassium 50 MG Tablet PO (10:23)
[2017-11-24] MEDS: Carvedilol 3.125 MG TABLET PO (10:23)
[2017-11-24] MEDS: Aspirin 81 MG TAB.CHEW PO (10:23)
[2017-11-24] MEDS: Chlorhexidine 15 ML PO ×2 (10:23→21:13)
[2017-11-24] MEDS: Famotidine 20 MG Tablet GT (10:24)
[2017-11-24] MEDS: Furosemide 20 MG/2 ML VIAL IV ×2 (10:24→17:37)
[2017-11-24] MEDS: Enoxaparin 40 MG/0.4 ML Syringe SC (10:25)
[2017-11-24] MEDS: Clopidogrel Bisulfate 75 MG Tablet PO (10:25)
[2017-11-24] MEDS: buPROPion (SR) 150 MG Tablet.SA PO (10:25)
[2017-11-24] MEDS: CHLORHEXIDINE GLUC 2% CLOTH 1 EACH TOWELETTE TOPICAL (17:04)
[2017-11-24] MEDS: Vancomycin IV 1,000 MG/200 ML BAG 200 MG IV (17:18)
[2017-11-24] MEDS: Vital AF 1.2 Cal Liquid 1,000 ML 20 ML GT (17:21)
[2017-11-24] MEDS: 0.9% NaCl Peripheral Flush Adult/Peds IV (17:37)
[2017-11-24] MEDS: Atorvastatin Calcium 80 MG Tablet GT (21:07)
[2017-11-24] MEDS: Carvedilol 3.125 MG TABLET GT (21:07)
[2017-11-25] VITALS (35 sets, daily range): BP systolic 91–160; BP diastolic 40–107; PULSE 64–106; RESP 12–30; TEMP 36.4–36.8; O2SAT 92–100
[2017-11-25] MEDS: 0.9% Normal Saline 1,000 ML 75 ML IV (02:02)
[2017-11-25 04:34] LABS: Absolute Lymphocyte Count 0.84 X10^3/ul (0.83-4.51); Absolute Neutrophil Count 12.9 X10^3/uL (2.0-7.7); Basophil# 0.01 X10^3/uL; Basophil% 0.1 % (0-1); Hematocrit 31.1 % (37-47); Hemoglobin 9.6 g/dl (12.0-15.0); Lymphocyte # 0.84 X10^3/ul (4.0); Lymphocyte % 5.9 % (19-41); Mean Corp Hgb Conc 30.9 g/gl (32-36); Mean Corpuscular Hgb 29.6 pg (27.0-32.0); Mean Platelet Vol. 9.5 fl (6.2-12.0); Monocyte# 0.38 X10^3/uL; Monocyte% 2.7 % (0-10); Neutrophil # 12.89 X10^3/uL (2.7-7.7); Neutrophil % 90.7 % (47-70); Platelet Count 375 K/mm3 (150-450); RBC Distribution Width CV 14.9 % (11.6-14.6); RBC Distribution Width SD 49.3 fl (35.1-43.9); Red Blood Count 3.24 M/mm3 (4.2-5.4); White Blood Count 14.2 K/mm3 (4.4-11.0)
[2017-11-25 04:39] LABS: POSITIVE COUNT NO; POSITIVE DIFFERENTIAL NO; POSITIVE MORPHOLOGY NO
[2017-11-25 04:44] LABS: Anion Gap 8 (5-15); BUN 25 mg/dL (7-18); BUN/Creat Ratio 27.6 RATIO (10-20); Calcium,Total 7.7 mg/dL (8.5-10.1); Chloride 106 mmol/L (98-107); Creatinine, Serum 0.91 mg/dL (0.55-1.02); EST Glomerular Filtration Rate 65 mL/min (>60); Est Glom Filt Rate - Afr Amer 78 mL/min (>60); Estimated Creatinine Clearance 46.23 ml/min; Glucose 98 mg/dL (74-106); Magnesium 2.2 mg/dL (1.6-2.6); Phosphorus 2.4 mg/dL (2.5-4.9); Potassium 3.8 mmol/L (3.5-5.1); Sodium Level 142 mmol/L (136-145)
[2017-11-25] MEDS: CHLORHEXIDINE GLUC 2% CLOTH 1 EACH TOWELETTE TOPICAL (06:10)
[2017-11-25 06:11] LABS: Base Excess 3 mmol/L (-2 to +2); Bicarbonate 27.3 mmol/L (22-26); Blood Gas Specimen Type ART; FI02 30; Mode CPAP PS; O2 Delivery Device Vent; PEEP 5; PO2 73 mmHG (75-100); PS 5; SITE R Radial; SO2 95 % (95-99); Time Given 557; Total Carbon Dioxide 29 mmol/L; pH 7.43 (7.35-7.45)
--- NOTE | 2017-11-25 06:33 | PCM.PN.INT ---
Subjective: Patient did well overnight. No acute issues were reported. Patient was able to qualify for a spontaneous breathing trial this morning and was successfully extubated under my direct supervision without complication. Patient is denying any pain at this time. No nausea or vomiting reported. General: Alert, Oriented x3, Cooperative, No apparent distress, - - Appears older than stated age. Speaking in full sentences. HEENT: Atraumatic, PERRLA, EOMI, Normocephalic, - - Glasses in place. No scleral icterus or injection noted Oral: Moist Mucosa, No Gingival or Mucosal Lesions/ Ulcerations, - - Fair dentition Neck: Supple, No JVD, No Nodes, Trachea Midline Lungs: No rhonchi, No rales, Diminished, Wheezes, - - Symmetric expansion. No dullness to percussion. Cardiovascular: Regular rate, Regular Rhythm, Normal S1, Normal S2, No murmurs, No rub noted, No Gallop Abdomen: Bowel Sounds Present, Soft, Non Tender, Non-Distended Extremities: No clubbing, No cyanosis, No edema Skin: No rashes, No breakdown Musculoskeletal: No Tenderness to Palpation of Joints or Extremities Lymphatic: No Cervical, Supraclavicular, or Inguinal Adenopathy Neurological: Cranial nerves II-XII grossly intact, Neuro grossly intact, Motor Exam 5/5 strength throughout Psych/Mental Status: Normal Affect, Appropriate Vital Signs Temp Pulse Resp BP Pulse Ox 36.5 C L 82 19 H 154/56 H 100 11/25/17 03:00 11/25/17 06:00 11/25/17 06:00 11/25/17 06:00 11/25/17 06:00 Oxygen Delivery Method Mechanical Ventilator Weight: 71.5 kg Body Mass Index (BMI) 27.5 Intake and Output for Last 24 Hours 11/23/17 11/24/17 11/25/17 23:59 23:59 23:59 Intake Total 769 / 769 2987.9 / 2987.9 1011.3 / 1011.3 Output Total 450 / 450 2400 / 2400 200 / 200 Balance 319 / 319 587.9 / 587.9 811.3 / 811.3 Labs (Last 48 Hours) 11/23/17 11/23/17 11/23/17 18:30 18:35 21:30 WBC RBC Hgb Hct MCV MCH MCHC RDW RDW Differential Plt Count MPV Immature Gran % (Auto) Neut % (Auto) Lymph % (Auto) [place] % (Auto) Eos % (Auto) Baso % (Auto) Absolute Neuts (auto) Absolute Lymphs (auto) Total Counted Specimen Type ART Sample Site R Brachial pH 7.39 Bicarbonate Actual 27.5 H POC Total CO2 29 Base Excess 3 H O2 Saturation 96 O2 % 40 ABG pCO2 45.1 H ABG pO2 84 Angelo Test NA Respiration Rate 12 O2 Delivery Device Vent Vent Mode A-C Tidal Volume 450 POC PEEP 5 POC Pressure Suppt Blood Gas Notified Whom [facility] Blood Gas Notified Time 1830 Sodium Potassium Chloride Carbon Dioxide Anion Gap BUN Creatinine Estim Creat Clear Calc Est GFR (MDRD) Af Amer Est GFR (MDRD) Non-Af BUN/Creatinine Ratio Glucose Calcium Phosphorus Magnesium Troponin I 0.382 H 0.454 H 11/24/17 11/24/17 11/25/17 03:55 03:55 04:08 WBC 12.6 H 14.2 H RBC 2.99 L 3.24 L Hgb 9.0 L 9.6 L Hct 28.8 L 31.1 L MCV 96.3 96.0 MCH 30.1 29.6 MCHC 31.3 L 30.9 L RDW 14.8 H 14.9 H RDW Differential 48.6 H 49.3 H Plt Count 358 375 MPV 9.0 9.5 Immature Gran % (Auto) 0.600 Neut % (Auto) 90.7 H Lymph % (Auto) 5.9 L [place] % (Auto) 2.7 Eos % (Auto) 0.0 Baso % (Auto) 0.1 Absolute Neuts (auto) 12.9 H Absolute Lymphs (auto) 0.84 Total Counted Not Reportable Specimen Type Sample Site pH Bicarbonate Actual POC Total CO2 Base Excess O2 Saturation O2 % ABG pCO2 ABG pO2 Angelo Test Respiration Rate O2 Delivery Device Vent Mode Tidal Volume POC PEEP POC Pressure Suppt Blood Gas Notified Whom Blood Gas Notified Time Sodium 145 Potassium 4.3 Chloride 109 H Carbon Dioxide 29.0 Anion Gap 7 BUN 24 H Creatinine 1.00 Estim Creat Clear Calc 40.22 Est GFR (MDRD) Af Amer 70 Est GFR (MDRD) Non-Af 58 L BUN/Creatinine Ratio 24.1 H Glucose 111 H Calcium 7.8 L Phosphorus Magnesium Troponin I 09/24/18 09/24/18 04:08 06:04 WBC RBC Hgb Hct MCV MCH MCHC RDW RDW Differential Plt Count MPV Immature Gran % (Auto) Neut % (Auto) Lymph % (Auto) [place] % (Auto) Eos % (Auto) Baso % (Auto) Absolute Neuts (auto) Absolute Lymphs (auto) Total Counted Specimen Type ART Sample Site R Radial pH 7.43 Bicarbonate Actual 27.3 H POC Total CO2 29 Base Excess 3 H O2 Saturation 95 O2 % 30 ABG pCO2 41.0 ABG pO2 73 L Angelo Test Respiration Rate O2 Delivery Device Vent Vent Mode CPAP PS Tidal Volume POC PEEP 5 POC Pressure Suppt 5 Blood Gas Notified Whom ICU Blood Gas Notified Time 557 Sodium 142 Potassium 3.8 Chloride 106 Carbon Dioxide 28.0 Anion Gap 8 BUN 25 H Creatinine 0.91 Estim Creat Clear Calc 46.23 Est GFR (MDRD) Af Amer 78 Est GFR (MDRD) Non-Af 65 BUN/Creatinine Ratio 27.6 H Glucose 98 Calcium 7.7 L Phosphorus 2.4 L Magnesium 2.2 Troponin I Microbiology 11/24/17 07:10 Sputum, Induced/[place] Gram Stain - Final 11/23/17 19:55 Urine Catheter - Burk Streptococcus pneumoniae Antigen (M - Final 11/23/17 19:55 Urine Catheter - Burk Legionella Antigen - Final 11/23/17 18:30 Mucosa - Nose Influenza Types A,B Direct FA ([facility]ORY) - Final Medical Necessity - Tobacco Use Smoking Status: Current every day smoker Assessment/Plan All Active Problems (Last Reviewed 11/23/17 @ 13:04 by Jackson Peter DO) Acute respiratory failure with hypoxia and hypercapnia (Acute) COPD with acute exacerbation (Acute) Gram-negative pneumonia (Acute) Acute hypercapnic respiratory failure (Acute) NSTEMI (non-ST elevated myocardial infarction) (Acute) COPD exacerbation (Acute) Congestive heart failure (Acute) RECOMMENDATIONS: 1. Await sputum culture 2. Aggressive pulmonary toileting 3. Gentle diuresis 4. Continue antibiotics, Solu-Medrol and bronchodilators 5. Bedside swallow evaluation 6. Wean oxygen as tolerated IMPRESSIONS: 1. Acute on chronic combined respiratory failure secondary to probable COPD exacerbation Patient with bilateral infiltrates noted on chest x-ray. Patient was able to complete a spontaneous breathing trial and was successfully extubated under my direct supervision this morning. Patient continues to have some wheezing on exam. Gram stain does show WBCs, so we will continue with steroids, antibiotics and bronchodilators for now. Patient should have a bedside swallow evaluation. 2. Acute on chronic systolic congestive heart failure/coronary artery disease Last known ejection fraction of 25%. Patient does have an elevation of troponin, but this likely represents supply demand mismatch. Patient did have a recent heart catheterization with stent placement. Defer to hospitalist on whether cardiology needs to be involved. Patient should remain on medical therapy. Plavix in place. We will continue with Lasix therapy 3. Tobacco abuse despite oxygen therapy/hypertension/hyperlipidemia/peripheral vascular disease/recent non-ST elevation [place] Complicates care, management, recovery and prognosis. Unclear baseline respiratory status and whether oxygen is secondary to congestive heart failure or advanced COPD. Patient would benefit from outpatient pulmonary function tests, smoking cessation and optimization of saturations. Likely okay to continue with baseline medications. TIME: 32 minutes critical care time spent addressing patient's acute on chronic combined respiratory failure, CHF, review of all data and collaboration with care team (5:25 AM to 6:25 AM) Code Visit 9xxxx: [id number] Critical care first hour
--- NOTE | 2017-11-25 06:37 | PN_ITS ---
Subjective: Patient did well overnight. No acute issues were reported. Patient was able to qualify for a spontaneous breathing trial this morning and was successfully extubated under my direct supervision without complication. Patient is denying any pain at this time. No nausea or vomiting reported. General: Alert, Oriented x3, Cooperative, No apparent distress, - - Appears older than stated age. Speaking in full sentences. HEENT: Atraumatic, PERRLA, EOMI, Normocephalic, - - Glasses in place. No sc leral icterus or injection noted Oral: Moist Mucosa, No Gingival or Mucosal Lesions/ Ulcerations, - - Fair dentition Neck: Supple, No JVD, No Nodes, Trachea Midline Lungs: No rhonchi, No rales, Diminished, Wheezes, - - Symmetric expansion. No dullness to percussion. Cardiovascular: Regular rate, Regular Rhythm, Normal S1, Normal S2, No murmurs, No rub noted, No Gallop Abdomen: Bowel Sounds Present, Soft, Non Tender, Non-Distended Extremities: No clubbing, No cyanosis, No edema Skin: No rashes, No breakdown Musculoskeletal: No Tenderness to Palpation of Joints or Extremities Lymphatic: No Cervical, Supraclavicular, or Inguinal Adenopathy Neurological: Cranial nerves II-XII grossly intact, Neuro grossly intact, Motor Exam 5/5 strength throughout Psych/Mental Status: Normal Affect, Appropriate Vital Signs Temp Pulse Resp BP Pulse Ox 36.5 C L 82 19 H 154/56 H 100 11/25/17 03:00 11/25/17 06:00 11/25/17 06:00 11/25/17 06:00 11/25/17 06:00 Oxygen Delivery Method Mechanical Ventilator Weight: 71.5 kg Body Mass Index (BMI) 27.5 Intake and Output for Last 24 Hours 11/23/17 11/24/17 11/25/17 23:59 23:59 23:59 Intake Total 769 / 769 2987.9 / 2987.9 1011.3 / 1011.3 Output Total 450 / 450 2400 / 2400 200 / 200 Balance 319 / 319 587.9 / 587.9 811.3 / 811.3 Labs (Last 48 Hours) 11/23/17 11/23/17 11/23/17 18:30 18:35 21:30 WBC RBC Hgb Hct MCV MCH MCHC RDW RDW Differential Plt Count MPV Immature Gran % (Auto) Neut % (Auto) Lymph % (Auto) [place] % (Auto) Eos % (Auto) Baso % (Auto) Absolute Neuts (auto) Absolute Lymphs (auto) Total Counted Specimen Type ART Sample Site R Brachial pH 7.39 Bicarbonate Actual 27.5 H POC Total CO2 29 Base Excess 3 H O2 Saturation 96 O2 % 40 ABG pCO2 45.1 H ABG pO2 84 Angelo Test NA Respiration Rate 12 O2 Delivery Device Vent Vent Mode A-C Tidal Volume 450 POC PEEP 5 POC Pressure Suppt Blood Gas Notified [facility] Blood Gas Notified Time 1830 Sodium Potassium Chloride Carbon Dioxide Anion Gap BUN Creatinine Estim Creat Clear Calc Est GFR (MDRD) Af Amer Est GFR (MDRD) Non-Af BUN/Creatinine Ratio Glucose Calcium Phosphorus Magnesium Troponin I 0.382 H 0.454 H 11/24/17 11/24/17 11/25/17 03:55 03:55 04:08 WBC 12.6 H 14.2 H RBC 2.99 L 3.24 L Hgb 9.0 L 9.6 L Hct 28.8 L 31.1 L MCV 96.3 96.0 MCH 30.1 29.6 MCHC 31.3 L 30.9 L RDW 14.8 H 14.9 H RDW Differential 48.6 H 49.3 H Plt Count 358 375 MPV 9.0 9.5 Immature Gran % (Auto) 0.600 Neut % (Auto) 90.7 H Lymph % (Auto) 5.9 L [place] % (Auto) 2.7 Eos % (Auto) 0.0 Baso % (Auto) 0.1 Absolute Neuts (auto) 12.9 H Absolute Lymphs (auto) 0.84 Total Counted Not Reportable Specimen Type Sample Site pH Bicarbonate Actual POC Total CO2 Base Excess O2 Saturation O2 % ABG pCO2 ABG pO2 Angelo Test Respiration Rate O2 Delivery Device Vent Mode Tidal Volume POC PEEP POC Pressure Suppt Blood Gas Notified Whom Blood Gas Notified Time Sodium 145 Potassium 4.3 Chloride 109 H Carbon Dioxide 29.0 Anion Gap 7 BUN 24 H Creatinine 1.00 Estim Creat Clear Calc 40.22 Est GFR (MDRD) Af Amer 70 Est GFR (MDRD) Non-Af 58 L BUN/Creatinine Ratio 24.1 H Glucose 111 H Calcium 7.8 L Phosphorus Magnesium Troponin I 11/25/17 11/25/17 04:08 06:04 WBC RBC Hgb Hct MCV MCH MCHC RDW RDW Differential Plt Count MPV Immature Gran % (Auto) Neut % (Auto) Lymph % (Auto) [place] % (Auto) Eos % (Auto) Baso % (Auto) Absolute Neuts (auto) Absolute Lymphs (auto) Total Counted Specimen Type ART Sample Site R Radial pH 7.43 Bicarbonate Actual 27.3 H POC Total CO2 29 Base Excess 3 H O2 Saturation 95 O2 % 30 ABG pCO2 41.0 ABG pO2 73 L Angelo Test Respiration Rate O2 Delivery Device Vent Vent Mode CPAP PS Tidal Volume POC PEEP 5 POC Pressure Suppt 5 Blood Gas Notified Whom ICU MD Blood Gas Notified Time 557 Sodium 142 Potassium 3.8 Chloride 106 Carbon Dioxide 28.0 Anion Gap 8 BUN 25 H Creatinine 0.91 Estim Creat Clear Calc 46.23 Est GFR (MDRD) Af Amer 78 Est GFR (MDRD) Non-Af 65 BUN/Creatinine Ratio 27.6 H Glucose 98 Calcium 7.7 L Phosphorus 2.4 L Magnesium 2.2 Troponin I Microbiology 11/24/17 07:10 Sputum, Induced/Lukens Gram Stain - Final 11/23/17 19:55 Urine Catheter - Burk Streptococcus pneumoniae Antigen (M - Final 11/23/17 19:55 Urine Catheter - Burk Legionella Antigen - Final 11/23/17 18:30 Mucosa - Nose Influenza Types A,B Direct FA (CORY) - Final Medical Necessity - Tobacco Use Smoking Status: Current every day smoker Assessment/Plan All Active Problems (Last Reviewed 11/23/17 @ 13:04 by Jackson Peter DO) Acute respiratory failure with hypoxia and hypercapnia (Acute) COPD with acute exacerbation (Acute) Gram-negative pneumonia (Acute) Acute hypercapnic respiratory failure (Acute) NSTEMI (non-ST elevated myocardial infarction) (Acute) COPD exacerbation (Acute) Congestive heart failure (Acute) RECOMMENDATIONS: 1. Await sputum culture 2. Aggressive pulmonary toileting 3. Gentle diuresis 4. Continue antibiotics, Solu-Medrol and bronchodilators 5. Bedside swallow evaluation 6. Wean oxygen as tolerated IMPRESSIONS: 1. Acute on chronic combined respiratory failure secondary to probable COPD exacerbation Patient with bilateral infiltrates noted on chest x-ray. Patient was able to complete a spontaneous breathing trial and was successfully extubated under my direct supervision this morning. Patient continues to have some wheezing on exam. Gram stain does show WBCs, so we will continue with steroids, antibiotics and bronchodilators for now. Patient should have a bedside swallow evaluation. 2. Acute on chronic systolic congestive heart failure/coronary artery disease Last known ejection fraction of 25%. Patient does have an elevation of troponin, but this likely represents supply demand mismatch. Patient did have a recent heart catheterization with stent placement. Defer to hospitalist on whether cardiology needs to be involved. Patient should remain on medical therapy. Plavix in place. We will continue with Lasix therapy 3. Tobacco abuse despite oxygen therapy/hypertension/hyperlipidemia/peripheral vascular disease/recent non-ST elevation [place] Complicates care, management, recovery and prognosis. Unclear baseline respiratory status and whether oxygen is secondary to congestive heart failure or advanced COPD. Patient would benefit from outpatient pulmonary function tests, smoking cessation and optimization of saturations. Likely okay to continue with baseline medications. TIME: 32 minutes critical care time spent addressing patient's acute on chronic combined respiratory failure, CHF, review of all data and collaboration with care team (5:25 AM to 6:25 AM) Code Visit [id number]: [id number] Critical care first hour
[2017-11-25] MEDS: LEVALBUTEROL HCL 0.63 MG/3 ML VIAL.NEB IH ×4 (06:47→19:12)
--- NOTE | 2017-11-25 08:21 | PCM.PN.HOSP ---
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 Good cough reflex. Patient states he has history of COPD and on 3 L of oxygen at home and uses BiPAP machine at home. No fever Vitals/I&O's: Vital Signs Temp Pulse Resp BP Pulse Ox 97.7 F L 84 18 154/56 H 100 11/25/17 03:00 11/25/17 06:48 11/25/17 06:48 11/25/17 06:00 11/25/17 06:48 Oxygen Flow Rate (L/min) 3 Oxygen Delivery Method Nasal Cannula Weight: 157 lb 10.088 oz Body Mass Index (BMI) 27.5 Intake and Output for Last 24 Hours 11/23/17 11/24/17 11/25/17 23:59 23:59 23:59 Intake Total 769 / 769 2987.9 / 2987.9 1011.3 / 1011.3 Output Total 450 / 450 2400 / 2400 200 / 200 Balance 319 / 319 587.9 / 587.9 811.3 / 811.3 General: Alert, Oriented x3, Cooperative HEENT: Atraumatic, PERRLA, EOMI, Normocephalic Neck: Supple, No JVD, Negative Carotid Bruits Lungs: Diminished, Rhonchi, Wheezes Cardiovascular: Regular rate, Regular Rhythm, Normal S1, Normal S2, No murmurs Abdomen: Bowel Sounds Present, Soft, Non Tender, Non-Distended Extremities: No edema, Capillary Refill Less than 3 Seconds Skin: No rashes, No breakdown Musculoskeletal: No Tenderness to Palpation of Joints or Extremities, Arthritic Changes Neurological: Cranial nerves II-XII grossly intact Psych/Mental Status: Normal Affect, Appropriate Microbiology Past 72 Hours 11/24/17 07:10 Sputum, Induced/Lukens Gram Stain - Final 11/23/17 19:55 Urine Catheter - Burk Streptococcus pneumoniae Antigen (M - Final 11/23/17 19:55 Urine Catheter - Burk Legionella Antigen - Final 11/23/17 18:30 Mucosa - Nose Influenza Types A,B Direct FA (CORY) - Final Laboratory Results 11/25/17 04:08: WBC 14.2 H, RBC 3.24 L, Hgb 9.6 L, Hct 31.1 L, MCV 96.0, MCH 29.6, MCHC 30.9 L, RDW 14.9 H, RDW Differential 49.3 H, Plt Count 375, MPV 9.5, Immature Gran % (Auto) 0.600, Neut % (Auto) 90.7 H, Lymph % (Auto) 5.9 L, [place] % (Auto) 2.7, Eos % (Auto) 0.0, Baso % (Auto) 0.1, Absolute Neuts (auto) 12.9 H, Absolute Lymphs (auto) 0.84, Total Counted Not Reportable 11/25/17 04:08: Sodium 142, Potassium 3.8, Chloride 106, Carbon Dioxide 28.0, Anion Gap 8, BUN 25 H, Creatinine 0.91, Estim Creat Clear Calc 46.23, Est GFR (MDRD) Af Amer 78, Est GFR (MDRD) Non-Af 65, BUN/Creatinine Ratio 27.6 H, Glucose 98, Calcium 7.7 L, Phosphorus 2.4 L, Magnesium 2.2 11/25/17 06:04: Specimen Type ART, Sample Site R Radial, pH 7.43, Bicarbonate Actual 27.3 H, POC Total CO2 29, Base Excess 3 H, O2 Saturation 95, O2 % 30, ABG pCO2 41.0, ABG pO2 73 L, O2 Delivery Device Vent, Vent Mode CPAP PS, POC PEEP 5, POC Pressure Suppt 5, Blood Gas Notified Whom ICU , Blood Gas Notified Time 557 11/25/17 08:00: MRSA (PCR) Pending Current Medications Aspirin (Aspirin, Baby) 81 mg GT DAILY@0800 [facility] Atorvastatin Calcium (Lipitor) 80 mg GT QHS [facility] Last Admin: 11/24/17 21:07 Dose: 80 mg Bupropion HCl (Wellbutrin Sr (150mg Tablets)) 150 mg PO DAILY [facility] Last Admin: 11/24/17 10:25 Dose: 150 mg Carvedilol (Coreg) 3.125 mg GT BID [facility] Last Admin: 11/24/17 21:07 Dose: 3.125 mg Chlorhexidine Gluconate () 15 ml PO BID [facility] Last Admin: 11/24/17 21:13 Dose: 15 ml Chlorhexidine Gluconate () 1 each TOPICAL DAILY [facility] Last Admin: 11/25/17 06:10 Dose: 1 each Clopidogrel Bisulfate (Plavix) 75 mg GT DAILY [facility] Enoxaparin Sodium (Lovenox) 40 mg SC DAILY@1000 [facility] Last Admin: 11/24/17 10:25 Dose: 40 mg Famotidine (Pepcid) 20 mg GT DAILY [facility] Last Admin: 11/24/17 10:24 Dose: 20 mg Furosemide (Lasix) 20 mg IV BID@1000,1800 [facility] Last Admin: 11/24/17 17:37 Dose: 20 mg Aztreonam 2 gm/ Dextrose 100 mls @ 150 mls/hr IV Q8 [facility] Last Admin: 11/25/17 06:10 Dose: 150 mls/hr Vancomycin HCl (Vancomycin) 1,000 mg in 200 mls @ 200 mls/hr IV Q24H [facility] Last Admin: 11/24/17 17:18 Dose: 200 mls/hr Vancomycin IV Pharmacy to Dose (1 ea/ Sodium Chloride) 500 mls @ 250 mls/hr IV PRN PRN; Protocol PRN Reason: Rx to Dose Influenza Virus Vaccine Quadrival (Fluarix/Fluzone) 0.5 ml IM .ONCE ONE Stop: 11/25/17 10:01 Levalbuterol HCl (Xopenex) 0.63 mg IH Q4HWA.RT [facility] Last Admin: 11/25/17 06:47 Dose: 0.63 mg Losartan Potassium (Cozaar) 50 mg GT DAILY [facility] Magnesium Hydroxide (Milk Of Magnesia) 30 ml GT DAILY PRN PRN PRN Reason: Constipation Methylprednisolone (Solu-Medrol) 40 mg IV Q8 [facility] Last Admin: 11/25/17 06:17 Dose: 40 mg Ondansetron HCl (Zofran) 4 mg IV Q8H PRN PRN PRN Reason: Nausea Sodium Chloride () 5 - 30 ml IV UD PRN PRN Reason: SALINE FLUSH Last Admin: 11/24/17 17:37 Dose: 10 ml Sodium Chloride () 10 - 40 ml IV UD PRN PRN Reason: MULTILUMEN/HICMAN CATH FLUSH Last Admin: 11/24/17 05:44 Dose: 10 ml Medical Necessity - Tobacco Use Smoking Status: Current every day smoker Assessment/Plan All Active Problems (Last Reviewed 11/23/17 @ 13:04 by Jackson Peter DO) Acute respiratory failure with hypoxia and hypercapnia (Acute) COPD with acute exacerbation (Acute) Gram-negative pneumonia (Acute) Acute hypercapnic respiratory failure (Acute) NSTEMI (non-ST elevated myocardial infarction) (Acute) COPD exacerbation (Acute) Congestive heart failure (Acute) This is a 72-year-old female with history of COPD was admitted with shortness of breath consistent with COPD exacerbation. Patient was lethargic and initially put on BiPAP but later on intubated in the ER. Chest x-ray was consistent with infiltrates and bilateral lung bases along with chronic changes of COPD and fibrotic interstitial markings. With the concern of pneumonia, patient started on IV antibiotics. 1. Acute hypercapnic respiratory failure Suspect due to COPD exacerbation as well as pneumonia. Extubated on 11/25/2017. On 2 L of oxygen. 2. Acute COPD exacerbation Steroids Patient has rash with albuterol so patient will continue with her Xopenex 3. Suspected gram-negative pneumonia bilateral lower lobes Urinary antigens are negative. Influenza is negative. Initial Gram stain of sputum culture shows no organisms. Full report pending Aztreonam, as patient has a penicillin allergy, and vancomycin 4. Heart failure with reduced ejection fraction Clinically, patient does not look in fluid overload state. BNP elevated most probably chronically elevated. Lasix as needed. Previous ejection fraction was 25% from echocardiogram on November 09 Continue with carvedilol and losartan 5. Coronary artery disease Recent drug-eluting stents to the distal and mid RCA on November 11 First troponin is negative second 0.382 and 0.454 mildly elevated possible related to demand supply mismatch. Patient denies chest pain, dizziness or diaphoresis. Continue with dual antiplatelet therapy. Follow-up with cardiology as outpatient If any acute issues arise while the patient is hospitalized, consult cardiology 6. DVT prophylaxis with Lovenox Microbiology Past 72 Hours 11/24/17 07:10 Sputum, Induced/Lukens Gram Stain - Final 11/23/17 19:55 Urine Catheter - Burk Streptococcus pneumoniae Antigen (M - Final 11/23/17 19:55 Urine Catheter - Burk Legionella Antigen - Final 11/23/17 18:30 Mucosa - Nose Influenza Types A,B Direct FA ([facility]ORY) - Final Laboratory Results 11/25/17 04:08: WBC 14.2 H, RBC 3.24 L, Hgb 9.6 L, Hct 31.1 L, MCV 96.0, MCH 29.6, MCHC 30.9 L, RDW 14.9 H, RDW Differential 49.3 H, Plt Count 375, MPV 9.5, Immature Gran % (Auto) 0.600, Neut % (Auto) 90.7 H, Lymph % (Auto) 5.9 L, [place] % (Auto) 2.7, Eos % (Auto) 0.0, Baso % (Auto) 0.1, Absolute Neuts (auto) 12.9 H, Absolute Lymphs (auto) 0.84, Total Counted Not Reportable 11/25/17 04:08: Sodium 142, Potassium 3.8, Chloride 106, Carbon Dioxide 28.0, Anion Gap 8, BUN 25 H, Creatinine 0.91, Estim Creat Clear Calc 46.23, Est GFR (MDRD) Af Amer 78, Est GFR (MDRD) Non-Af 65, BUN/Creatinine Ratio 27.6 H, Glucose 98, Calcium 7.7 L, Phosphorus 2.4 L, Magnesium 2.2 11/25/17 06:04: Specimen Type ART, Sample Site R Radial, pH 7.43, Bicarbonate Actual 27.3 H, POC Total CO2 29, Base Excess 3 H, O2 Saturation 95, O2 % 30, ABG pCO2 41.0, ABG pO2 73 L, O2 Delivery Device Vent, Vent Mode CPAP PS, POC PEEP 5, POC Pressure Suppt 5, Blood Gas Notified Whom ICU MD, Blood Gas Notified Time 557 11/25/17 08:00: MRSA (PCR) Pending Clinical Impression(s) from Imaging Studies Chest X-Ray 11/23/17 16:24 IMPRESSION: Stable appearance of the chest. New right internal jugular catheter with tip projected into the mid-SVC. No complications noted. Clinical Impression(s) from Imaging Studies Chest X-Ray 11/23/17 10:35 IMPRESSION: Advanced chronic lung disease. Cannot exclude superimposed mild edema and/or atypical infiltrates. Code Visit Inpatient E&M: 23956 Subs Hosp L3
--- NOTE | 2017-11-25 08:26 | PN_ITS ---
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 Good cough reflex. Patient states he has history of COPD and on 3 L of oxygen at home and uses BiPAP machine at home. No fever Vitals/I&O's: Vital Signs Temp Pulse Resp BP Pulse Ox 97.7 F L 84 18 154/56 H 100 11/25/17 03:00 11/25/17 06:48 11/25/17 06:48 11/25/17 06:00 11/25/17 06:48 Oxygen Flow Rate (L/min) 3 Oxygen Delivery Method Nasal Cannula Weight: 157 lb 10.088 oz Body Mass Index (BMI) 27.5 Intake and Output for Last 24 Hours 11/23/17 11/24/17 11/25/17 23:59 23:59 23:59 Intake Total 769 / 769 2987.9 / 2987.9 1011.3 / 1011.3 Output Total 450 / 450 2400 / 2400 200 / 200 Balance 319 / 319 587.9 / 587.9 811.3 / 811.3 General: Alert, Oriented x3, Cooperative HEENT: Atraumatic, PERRLA, EOMI, Normocephalic Neck: Supple, No JVD, Negative Carotid Bruits Lungs: Diminished, Rhonchi, Wheezes Cardiovascular: Regular rate, Regular Rhythm, Normal S1, Normal S2, No murmurs Abdomen: Bowel Sounds Present, Soft, Non Tender, Non-Distended Extremities: No edema, Capillary Refill Less than 3 Seconds Skin: No rashes, No breakdown Musculoskeletal: No Tenderness to Palpation of Joints or Extremities, Arthritic Changes Neurological: Cranial nerves II-XII grossly intact Psych/Mental Status: Normal Affect, Appropriate Microbiology Past 72 Hours 11/24/17 07:10 Sputum, Induced/Lukens Gram Stain - Final 11/23/17 19:55 Urine Catheter - Burk Streptococcus pneumoniae Antigen (M - Final 11/23/17 19:55 Urine Catheter - Burk Legionella Antigen - Final 11/23/17 18:30 Mucosa - Nose Influenza Types A,B Direct FA (CORY) - Final Laboratory Results 11/25/17 04:08: WBC 14.2 H, RBC 3.24 L, Hgb 9.6 L, Hct 31.1 L, MCV 96.0, MCH 29.6, MCHC 30.9 L, RDW 14.9 H, RDW Differential 49.3 H, Plt Count 375, MPV 9.5, Immature Gran % (Auto) 0.600, Neut % (Auto) 90.7 H, Lymph % (Auto) 5.9 L, [place] % (Auto) 2.7, Eos % (Auto) 0.0, Baso % (Auto) 0.1, Absolute Neuts (auto) 12.9 H , Absolute Lymphs (auto) 0.84, Total Counted Not Reportable 11/25/17 04:08: Sodium 142, Potassium 3.8, Chloride 106, Carbon Dioxide 28.0, Anion Gap 8, BUN 25 H, Creatinine 0.91, Estim Creat Clear Calc 46.23, Est GFR ( MDRD) Af Amer 78, Est GFR (MDRD) Non-Af 65, BUN/Creatinine Ratio 27.6 H, Glucose 98, Calcium 7.7 L, Phosphorus 2.4 L, Magnesium 2.2 11/25/17 06:04: Specimen Type ART, Sample Site R Radial, pH 7.43, Bicarbonate Actual 27.3 H, POC Total CO2 29, Base Excess 3 H, O2 Saturation 95, O2 % 30, ABG pCO2 41.0, ABG pO2 73 L, O2 Delivery Device Vent, Vent Mode CPAP PS, POC PEEP 5, POC Pressure Suppt 5, Blood Gas Notified Whom ICU , Blood Gas Notified Time 557 11/25/17 08:00: MRSA (PCR) Pending Current Medications Aspirin (Aspirin, Baby) 81 mg GT DAILY@0800 [facility] Atorvastatin Calcium (Lipitor) 80 mg GT QHS [facility] Last Admin: 11/24/17 21:07 Dose: 80 mg Bupropion HCl (Wellbutrin Sr (150mg Tablets)) 150 mg PO DAILY [facility] Last Admin: 11/24/17 10:25 Dose: 150 mg Carvedilol (Coreg) 3.125 mg GT BID [facility] Last Admin: 11/24/17 21:07 Dose: 3.125 mg Chlorhexidine Gluconate () 15 ml PO BID [facility] Last Admin: 11/24/17 21:13 Dose: 15 ml Chlorhexidine Gluconate () 1 each TOPICAL DAILY [facility] Last Admin: 11/25/17 06:10 Dose: 1 each Clopidogrel Bisulfate (Plavix) 75 mg GT DAILY [facility] Enoxaparin Sodium (Lovenox) 40 mg SC DAILY@1000 [facility] Last Admin: 11/24/17 10:25 Dose: 40 mg Famotidine (Pepcid) 20 mg GT DAILY [facility] Last Admin: 11/24/17 10:24 Dose: 20 mg Furosemide (Lasix) 20 mg IV BID@1000,1800 [facility] Last Admin: 11/24/17 17:37 Dose: 20 mg Aztreonam 2 gm/ Dextrose 100 mls @ 150 mls/hr IV Q8 [facility] Last Admin: 11/25/17 06:10 Dose: 150 mls/hr Vancomycin HCl (Vancomycin) 1,000 mg in 200 mls @ 200 mls/hr IV Q24H [facility] Last Admin: 11/24/17 17:18 Dose: 200 mls/hr Vancomycin IV Pharmacy to Dose (1 ea/ Sodium Chloride) 500 mls @ 250 mls/hr IV PRN PRN; Protocol PRN Reason: Rx to Dose Influenza Virus Vaccine Quadrival (Fluarix/Fluzone) 0.5 ml IM .ONCE ONE Stop: 11/25/17 10:01 Levalbuterol HCl (Xopenex) 0.63 mg IH Q4HWA.RT [facility] Last Admin: 11/25/17 06:47 Dose: 0.63 mg Losartan Potassium (Cozaar) 50 mg GT DAILY [facility] Magnesium Hydroxide (Milk Of Magnesia) 30 ml GT DAILY PRN PRN PRN Reason: Constipation Methylprednisolone (Solu-Medrol) 40 mg IV Q8 [facility] Last Admin: 11/25/17 06:17 Dose: 40 mg Ondansetron HCl (Zofran) 4 mg IV Q8H PRN PRN PRN Reason: Nausea Sodium Chloride () 5 - 30 ml IV UD PRN PRN Reason: SALINE FLUSH Last Admin: 11/24/17 17:37 Dose: 10 ml Sodium Chloride () 10 - 40 ml IV UD PRN PRN Reason: MULTILUMEN/HICMAN CATH FLUSH Last Admin: 11/24/17 05:44 Dose: 10 ml Medical Necessity - Tobacco Use Smoking Status: Current every day smoker Assessment/Plan All Active Problems (Last Reviewed 11/23/17 @ 13:04 by Jackson Peter DO) Acute respiratory failure with hypoxia and hypercapnia (Acute) COPD with acute exacerbation (Acute) Gram-negative pneumonia (Acute) Acute hypercapnic respiratory failure (Acute) NSTEMI (non-ST elevated myocardial infarction) (Acute) COPD exacerbation (Acute) Congestive heart failure (Acute) This is a 72-year-old female with history of COPD was admitted with shortness of breath consistent with COPD exacerbation. Patient was lethargic and initially put on BiPAP but later on intubated in the ER. Chest x-ray was consistent with infiltrates and bilateral lung bases along with chronic changes of COPD and fibrotic interstitial markings. With the concern of pneumonia, patient started on IV antibiotics. 1. Acute hypercapnic respiratory failure * Suspect due to COPD exacerbation as well as pneumonia. * Extubated on 11/25/2017. On 2 L of oxygen. 2. Acute COPD exacerbation * Steroids * Patient has rash with albuterol so patient will continue with her Xopenex 3. Suspected gram-negative pneumonia bilateral lower lobes * Urinary antigens are negative. Influenza is negative. Initial Gram stain of sputum culture shows no organisms. Full report pending * Aztreonam, as patient has a penicillin allergy, and vancomycin 4. Heart failure with reduced ejection fraction * Clinically, patient does not look in fluid overload state. BNP elevated most probably chronically elevated. Lasix as needed. * Previous ejection fraction was 25% from echocardiogram on November 09 * Continue with carvedilol and losartan 5. Coronary artery disease * Recent drug-eluting stents to the distal and mid RCA on November 11 * First troponin is negative second 0.382 and 0.454 mildly elevated possible related to demand supply mismatch. Patient denies chest pain, dizziness or diaphoresis. * Continue with dual antiplatelet therapy. * Follow-up with cardiology as outpatient * If any acute issues arise while the patient is hospitalized, consult cardiology 6. DVT prophylaxis with Lovenox Microbiology Past 72 Hours 11/24/17 07:10 Sputum, Induced/Lukens Gram Stain - Final 11/23/17 19:55 Urine Catheter - Burk Streptococcus pneumoniae Antigen (M - Final 11/23/17 19:55 Urine Catheter - Burk Legionella Antigen - Final 11/23/17 18:30 Mucosa - Nose Influenza Types A,B Direct FA ([facility]) - Final Laboratory Results 11/25/17 04:08: WBC 14.2 H, RBC 3.24 L, Hgb 9.6 L, Hct 31.1 L, MCV 96.0, MCH 29.6, MCHC 30.9 L, RDW 14.9 H, RDW Differential 49.3 H, Plt Count 375, MPV 9.5, Immature Gran % (Auto) 0.600, Neut % (Auto) 90.7 H, Lymph % (Auto) 5.9 L, [place] % (Auto) 2.7, Eos % (Auto) 0.0, Baso % (Auto) 0.1, Absolute Neuts (auto) 12.9 H , Absolute Lymphs (auto) 0.84, Total Counted Not Reportable 11/25/17 04:08: Sodium 142, Potassium 3.8, Chloride 106, Carbon Dioxide 28.0, Anion Gap 8, BUN 25 H, Creatinine 0.91, Estim Creat Clear Calc 46.23, Est GFR ( MDRD) Af Amer 78, Est GFR (MDRD) Non-Af 65, BUN/Creatinine Ratio 27.6 H, Glucose 98, Calcium 7.7 L, Phosphorus 2.4 L, Magnesium 2.2 11/25/17 06:04: Specimen Type ART, Sample Site R Radial, pH 7.43, Bicarbonate Actual 27.3 H, POC Total CO2 29, Base Excess 3 H, O2 Saturation 95, O2 % 30, ABG pCO2 41.0, ABG pO2 73 L, O2 Delivery Device Vent, Vent Mode CPAP PS, POC PEEP 5, POC Pressure Suppt 5, Blood Gas Notified Whom ICU , Blood Gas Notified Time 557 11/25/17 08:00: MRSA (PCR) Pending Clinical Impression(s) from Imaging Studies Chest X-Ray 11/23/17 16:24 IMPRESSION: Stable appearance of the chest. New right internal jugular catheter with tip projected into the mid-SVC. No complications noted. Clinical Impression(s) from Imaging Studies Chest X-Ray 11/23/17 10:35 IMPRESSION: Advanced chronic lung disease. Cannot exclude superimposed mild edema and/or atypical infiltrates. Code Visit Inpatient E&M: 96667 Subs Hosp L3
[2017-11-25] MEDS: Carvedilol 3.125 MG TABLET GT (10:08)
[2017-11-25] MEDS: Aspirin 81 MG TAB.CHEW GT (10:08)
[2017-11-25] MEDS: Losartan Potassium 50 MG Tablet GT (10:08)
[2017-11-25] MEDS: Famotidine 20 MG Tablet GT (10:08)
[2017-11-25] MEDS: Ceftriaxone 1 GM/50 ML BAG IV (10:09)
[2017-11-25] MEDS: Furosemide 20 MG/2 ML VIAL IV ×2 (10:09→18:09)
[2017-11-25] MEDS: buPROPion (SR) 150 MG Tablet.SA PO (10:09)
[2017-11-25] MEDS: Enoxaparin 40 MG/0.4 ML Syringe SC (10:09)
[2017-11-25] MEDS: Clopidogrel Bisulfate 75 MG Tablet GT (10:09)
--- NOTE | 2017-11-25 11:02 | CASEMGMT ---
Addendum entered by Denver Aburto 11/25/17 11:10: Per PT, goal is to return home, and pt did well with therapy. Oxygen saturations dropped with activity, however. Will continue to follow. Original Note: LEIGH MEJIAS Assessment completed. See Link. -Pt would like to return home on dc. Has family stay with her 24/09. Pt states she required minimal help with ADL's, family assist with cooking, cleaning and transportation. -PT/OT evaluations pending. [place] BACHN RN ACM
[2017-11-25 11:52] LABS: M R Staph aureus DNA By PCR Negative (Negative); Probe Check PASS; Specimen Processing Control PASS
[2017-11-25 12:44] LABS: Pathologist Review Reviewed
--- NOTE | 2017-11-25 14:23 | CHAPLAIN ---
Type of Pastoral Visit _x__ Initial Visit ___ Follow-up Visit ___ On-call Visit ___ General Patient Visit ___ Spiritual Assessment ___ Family Conference ___ Bereavement ___ Rapid Response ___ Code Blue ___ Other (describe below) Pastoral Care Referral From _x__ Patient ___ Family ___ Nurse ___ Physician ___ Flute Grinder ___ Color Mixer ___ Other (describe below) Sacrament/Intervention _x__ Active listening ___ Anointing ___ Islam ___ Bereavement ___ Communion ___ Jenni exploration ___ ___ Life review _x__ Prayer ___ Reconciliation ___ Sacrament of Sick _x__ Supportive presence ___ Wedding ___ Other (describe below) Pastoral Comments
--- NOTE | 2017-11-25 21:30 | EKG12_ITS ---
Test Reason : CHEST PAIN Blood Pressure : / mmHG Vent. Rate : 071 BPM Atrial Rate : 071 BPM P-R Int : 148 ms QRS Dur : 090 ms QT Int : 368 ms P-R-T Axes : 061 030 129 degrees QTc Int : 399 ms Sinus rhythm with marked sinus arrhythmia T wave abnormality, consider anterior ischemia Abnormal ECG When compared with ECG of 23-NOV-2017 10:58, MANUAL COMPARISON REQUIRED, DATA IS UNCONFIRMED Confirmed by PILAR IVEY, BETINA ([id number]), department editor MACKENZIE TORRES ([id number] on 11/29/2017 2:34:02 PM Referred By: YARED Confirmed By:BETINA QUEZADA MD
[2017-11-25] MEDS: Carvedilol 3.125 MG TABLET PO (21:35)
[2017-11-25] MEDS: 0.9% NaCl Peripheral Flush Adult/Peds IV (21:36)
[2017-11-25] MEDS: Atorvastatin Calcium 80 MG Tablet PO (21:36)
[2017-11-25] MEDS: Acetaminophen 325 MG Tablet 650 MG PO (21:57)
[2017-11-26] VITALS (16 sets, daily range): BP systolic 124–147; BP diastolic 57–64; PULSE 54–97; RESP 16–20; TEMP 36.4–36.7; O2SAT 81–100
[2017-11-26] MEDS: Acetaminophen 325 MG Tablet 650 MG PO ×2 (06:07→20:32)
[2017-11-26] MEDS: LEVALBUTEROL HCL 0.63 MG/3 ML VIAL.NEB IH ×4 (07:05→18:31)
--- NOTE | 2017-11-26 07:35 | PCM.PN.INT ---
Subjective: Patient transferred out of the intensive care unit yesterday. Patient has been on baseline 3 L nasal cannula and tolerating well. No fevers noted overnight. Patient denies any current chest pain and believes her dyspnea is at its baseline. General: Alert, Oriented x3, Cooperative, No apparent distress, - - Appears older than stated age. Speaking in full sentences. HEENT: Atraumatic, PERRLA, EOMI, Normocephalic, - - No scleral icterus or injection noted. Oral: Moist Mucosa, No Gingival or Mucosal Lesions/ Ulcerations Neck: Supple, No JVD, No Nodes, Trachea Midline Lungs: No rhonchi, No wheeze, No rales, Diminished, - - Symmetric expansion. No dullness to percussion. Cardiovascular: Regular rate, Regular Rhythm, Normal S1, Normal S2, No murmurs, No rub noted, No Gallop Abdomen: Bowel Sounds Present, Soft, Non Tender, Non-Distended Extremities: No cyanosis, No edema, Capillary Refill Less than 3 Seconds, Clubbing Skin: No rashes, No breakdown Musculoskeletal: No Tenderness to Palpation of Joints or Extremities Lymphatic: No Cervical, Supraclavicular, or Inguinal Adenopathy Neurological: Cranial nerves II-XII grossly intact, Neuro grossly intact, Motor Exam 5/5 strength throughout Psych/Mental Status: Alert and oriented to time, place, person, mood and affect Vital Signs Temp Pulse Resp BP Pulse Ox 36.7 C 56 L 18 147/64 H 100 11/26/17 05:50 11/26/17 07:08 11/26/17 05:50 11/26/17 05:50 11/26/17 05:50 Oxygen Flow Rate (L/min) 3 Oxygen Delivery Method Nasal Cannula Weight: 70.9 kg Body Mass Index (BMI) 27.5 Intake and Output for Last 24 Hours 11/24/17 11/25/17 11/26/17 23:59 23:59 23:59 Intake Total 2987.9 / 2987.9 1648.3 / 1648.3 93 / Output Total 2400 / 2400 2049 / 2049 Balance 587.9 / 587.9 -401.7 / -401.7 / Labs (Last 48 Hours) 11/23/17 11/25/17 11/25/17 11:01 04:08 04:08 WBC 14.2 H RBC 3.24 L Hgb 9.6 L Hct 31.1 L MCV 96.0 MCH 29.6 MCHC 30.9 L RDW 14.9 H RDW Differential 49.3 H Plt Count 375 MPV 9.5 Immature Gran % (Auto) 0.600 Neut % (Auto) 90.7 H Lymph % (Auto) 5.9 L [place] % (Auto) 2.7 Eos % (Auto) 0.0 Baso % (Auto) 0.1 Absolute Neuts (auto) 12.9 H Absolute Lymphs (auto) 0.84 Total Counted Not Reportable Diff Path Review Reviewed Specimen Type Sample Site pH Bicarbonate Actual POC Total CO2 Base Excess O2 Saturation O2 % ABG pCO2 ABG pO2 O2 Delivery Device Vent Mode POC PEEP POC Pressure Suppt Blood Gas Notified Whom Blood Gas Notified Time Sodium 142 Potassium 3.8 Chloride 106 Carbon Dioxide 28.0 Anion Gap 8 BUN 25 H Creatinine 0.91 Estim Creat Clear Calc 46.23 Est GFR (MDRD) Af Amer 78 Est GFR (MDRD) Non-Af 65 BUN/Creatinine Ratio 27.6 H Glucose 98 Calcium 7.7 L Phosphorus 2.4 L Magnesium 2.2 MRSA (PCR) 11/25/17 11/25/17 06:04 08:00 WBC RBC Hgb Hct MCV MCH MCHC RDW RDW Differential Plt Count MPV Immature Gran % (Auto) Neut % (Auto) Lymph % (Auto) [place] % (Auto) Eos % (Auto) Baso % (Auto) Absolute Neuts (auto) Absolute Lymphs (auto) Total Counted Diff Path Review Specimen Type ART Sample Site R Radial pH 7.43 Bicarbonate Actual 27.3 H POC Total CO2 29 Base Excess 3 H O2 Saturation 95 O2 % 30 ABG pCO2 41.0 ABG pO2 73 L O2 Delivery Device Vent Vent Mode CPAP PS POC PEEP 5 POC Pressure Suppt 5 Blood Gas Notified Whom ICU MD Blood Gas Notified Time 557 Sodium Potassium Chloride Carbon Dioxide Anion Gap BUN Creatinine Estim Creat Clear Calc Est GFR (MDRD) Af Amer Est GFR (MDRD) Non-Af BUN/Creatinine Ratio Glucose Calcium Phosphorus Magnesium MRSA (PCR) Negative Microbiology 11/24/17 07:10 Sputum, Induced/Lukens Gram Stain - Final 11/24/17 07:10 Sputum, Induced/Lukens Respiratory Culture - Preliminary Presumptive C albicans Alpha hemolytic organism GNR Poss Pseudomonas sp Medical Necessity - Tobacco Use Smoking Status: Current every day smoker Assessment/Plan All Active Problems (Last Reviewed 11/23/17 @ 13:04 by Jackson Peter DO) Acute respiratory failure with hypoxia and hypercapnia (Acute) COPD with acute exacerbation (Acute) Gram-negative pneumonia (Acute) Acute hypercapnic respiratory failure (Acute) NSTEMI (non-ST elevated myocardial infarction) (Acute) COPD exacerbation (Acute) Congestive heart failure (Acute) RECOMMENDATIONS: 1. Await sensitivities from sputum for p.o. antibiotic 2. Continue aggressive pulmonary toileting 3. Transition to prednisone therapy, continue bronchodilators and complete 7 days of antibiotics 4. Walking oximetry prior to discharge 5. Follow-up with nurse practitioner in 2 weeks in my office 6. Patient has supplemental oxygen for home IMPRESSIONS: 1. Acute on chronic combined respiratory failure secondary to probable COPD exacerbation Patient with rapid recovery from acute respiratory failure. Patient reporting she is at her baseline and tolerating 3 L nasal cannula. Will transition from Solu-Medrol to prednisone therapy. Patient does have a polymicrobial sputum culture, so wait for sensitivities to direct p.o. antibiotics. Patient should complete 7 days of antibiotics. Wean oxygen as tolerated. Will obtain a walking oximetry prior to discharge. If discharged, patient should follow-up with nurse practitioner in 2 weeks with my office. 2. Acute on chronic systolic congestive heart failure/coronary artery disease Last known ejection fraction of 25%. Patient does have an elevation of troponin, but this likely represents supply demand mismatch. Patient did have a recent heart catheterization with stent placement. Defer to hospitalist on whether cardiology needs to be involved. Patient should remain on medical therapy. Plavix in place. Likely okay to discontinue diuretic therapy 3. Tobacco abuse despite oxygen therapy/hypertension/hyperlipidemia/peripheral vascular disease/recent non-ST elevation [place] Complicates care, management, recovery and prognosis. Unclear baseline respiratory status and whether oxygen is secondary to congestive heart failure or advanced COPD. Patient would benefit from outpatient pulmonary function tests, smoking cessation and optimization of saturations. Likely okay to continue with baseline medications. Code Visit Inpatient E&M: 79132 Subs Hosp L2
--- NOTE | 2017-11-26 07:40 | PN_ITS ---
Subjective: Patient transferred out of the intensive care unit yesterday. Patient has been on baseline 3 L nasal cannula and tolerating well. No fevers noted overnight. Patient denies any current chest pain and believes her dyspnea is at its baseline. General: Alert, Oriented x3, Cooperative, No apparent distress, - - Appears old er than stated age. Speaking in full sentences. HEENT: Atraumatic, PERRLA, EOMI, Normocephalic, - - No scleral icterus or injection noted. Oral: Moist Mucosa, No Gingival or Mucosal Lesions/ Ulcerations Neck: Supple, No JVD, No Nodes, Trachea Midline Lungs: No rhonchi, No wheeze, No rales, Diminished, - - Symmetric expansion. No dullness to percussion. Cardiovascular: Regular rate, Regular Rhythm, Normal S1, Normal S2, No murmurs, No rub noted, No Gallop Abdomen: Bowel Sounds Present, Soft, Non Tender, Non-Distended Extremities: No cyanosis, No edema, Capillary Refill Less than 3 Seconds, Clubbing Skin: No rashes, No breakdown Musculoskeletal: No Tenderness to Palpation of Joints or Extremities Lymphatic: No Cervical, Supraclavicular, or Inguinal Adenopathy Neurological: Cranial nerves II-XII grossly intact, Neuro grossly intact, Motor Exam 5/5 strength throughout Psych/Mental Status: Alert and oriented to time, place, person, mood and affect Vital Signs Temp Pulse Resp BP Pulse Ox 36.7 C 56 L 18 147/64 H 100 11/26/17 05:50 11/26/17 07:08 11/26/17 05:50 11/26/17 05:50 11/26/17 05:50 Oxygen Flow Rate (L/min) 3 Oxygen Delivery Method Nasal Cannula Weight: 70.9 kg Body Mass Index (BMI) 27.5 Intake and Output for Last 24 Hours 11/24/17 11/25/17 11/26/17 23:59 23:59 23:59 Intake Total 2987.9 / 2987.9 1648.3 / 1648.3 93 / Output Total 2400 / 2400 2049 / 2049 Balance 587.9 / 587.9 -401.7 / -401.7 93 / Labs (Last 48 Hours) 11/23/17 11/25/17 11/25/17 11:01 04:08 04:08 WBC 14.2 H RBC 3.24 L Hgb 9.6 L Hct 31.1 L MCV 96.0 MCH 29.6 MCHC 30.9 L RDW 14.9 H RDW Differential 49.3 H Plt Count 375 MPV 9.5 Immature Gran % (Auto) 0.600 Neut % (Auto) 90.7 H Lymph % (Auto) 5.9 L [place] % (Auto) 2.7 Eos % (Auto) 0.0 Baso % (Auto) 0.1 Absolute Neuts (auto) 12.9 H Absolute Lymphs (auto) 0.84 Total Counted Not Reportable Diff Path Review Reviewed Specimen Type Sample Site pH Bicarbonate Actual POC Total CO2 Base Excess O2 Saturation O2 % ABG pCO2 ABG pO2 O2 Delivery Device Vent Mode POC PEEP POC Pressure Suppt Blood Gas Notified Whom Blood Gas Notified Time Sodium 142 Potassium 3.8 Chloride 106 Carbon Dioxide 28.0 Anion Gap 8 BUN 25 H Creatinine 0.91 Estim Creat Clear Calc 46.23 Est GFR (MDRD) Af Amer 78 Est GFR (MDRD) Non-Af 65 BUN/Creatinine Ratio 27.6 H Glucose 98 Calcium 7.7 L Phosphorus 2.4 L Magnesium 2.2 MRSA (PCR) 11/25/17 11/25/17 06:04 08:00 WBC RBC Hgb Hct MCV MCH MCHC RDW RDW Differential Plt Count MPV Immature Gran % (Auto) Neut % (Auto) Lymph % (Auto) [place] % (Auto) Eos % (Auto) Baso % (Auto) Absolute Neuts (auto) Absolute Lymphs (auto) Total Counted Diff Path Review Specimen Type ART Sample Site R Radial pH 7.43 Bicarbonate Actual 27.3 H POC Total CO2 29 Base Excess 3 H O2 Saturation 95 O2 % 30 ABG pCO2 41.0 ABG pO2 73 L O2 Delivery Device Vent Vent Mode CPAP PS POC PEEP 5 POC Pressure Suppt 5 Blood Gas Notified Whom ICU MD Blood Gas Notified Time 557 Sodium Potassium Chloride Carbon Dioxide Anion Gap BUN Creatinine Estim Creat Clear Calc Est GFR (MDRD) Af Amer Est GFR (MDRD) Non-Af BUN/Creatinine Ratio Glucose Calcium Phosphorus Magnesium MRSA (PCR) Negative Microbiology 11/24/17 07:10 Sputum, Induced/Lukens Gram Stain - Final 11/24/17 07:10 Sputum, Induced/Lukens Respiratory Culture - Preliminary Presumptive C albicans Alpha hemolytic organism GNR Poss Pseudomonas sp Medical Necessity - Tobacco Use Smoking Status: Current every day smoker Assessment/Plan All Active Problems (Last Reviewed 11/23/17 @ 13:04 by Jackson Peter DO) Acute respiratory failure with hypoxia and hypercapnia (Acute) COPD with acute exacerbation (Acute) Gram-negative pneumonia (Acute) Acute hypercapnic respiratory failure (Acute) NSTEMI (non-ST elevated myocardial infarction) (Acute) COPD exacerbation (Acute) Congestive heart failure (Acute) RECOMMENDATIONS: 1. Await sensitivities from sputum for p.o. antibiotic 2. Continue aggressive pulmonary toileting 3. Transition to prednisone therapy, continue bronchodilators and complete 7 days of antibiotics 4. Walking oximetry prior to discharge 5. Follow-up with nurse practitioner in 2 weeks in my office 6. Patient has supplemental oxygen for home IMPRESSIONS: 1. Acute on chronic combined respiratory failure secondary to probable COPD exacerbation Patient with rapid recovery from acute respiratory failure. Patient reporting she is at her baseline and tolerating 3 L nasal cannula. Will transition from Solu-Medrol to prednisone therapy. Patient does have a polymicrobial sputum culture, so wait for sensitivities to direct p.o. antibiotics. Patient should complete 7 days of antibiotics. Wean oxygen as tolerated. Will obtain a walking oximetry prior to discharge. If discharged, patient should follow-up with nurse practitioner in 2 weeks with my office. 2. Acute on chronic systolic congestive heart failure/coronary artery disease Last known ejection fraction of 25%. Patient does have an elevation of troponin, but this likely represents supply demand mismatch. Patient did have a recent heart catheterization with stent placement. Defer to hospitalist on whether cardiology needs to be involved. Patient should remain on medical the rapy. Plavix in place. Likely okay to discontinue diuretic therapy 3. Tobacco abuse despite oxygen therapy/hypertension/hyperlipidemia/peripheral vascular disease/recent non-ST elevation [place] Complicates care, management, recovery and prognosis. Unclear baseline respiratory status and whether oxygen is secondary to congestive heart failure or advanced COPD. Patient would benefit from outpatient pulmonary function tests, smoking cessation and optimization of saturations. Likely okay to continue with baseline medications. Code Visit Inpatient E&M: [id number] Subs Hosp L2
[2017-11-26] MEDS: Aspirin 81 MG TAB.CHEW PO (08:52)
[2017-11-26] MEDS: Carvedilol 3.125 MG TABLET PO ×2 (08:52→21:45)
[2017-11-26] MEDS: Furosemide 20 MG/2 ML VIAL IV ×2 (08:53→17:11)
[2017-11-26] MEDS: buPROPion (SR) 150 MG Tablet.SA PO (08:53)
[2017-11-26] MEDS: Clopidogrel Bisulfate 75 MG Tablet PO (08:53)
[2017-11-26] MEDS: Enoxaparin 40 MG/0.4 ML Syringe SC (08:53)
[2017-11-26] MEDS: Famotidine 20 MG Tablet PO (08:53)
[2017-11-26] MEDS: Losartan Potassium 50 MG Tablet PO (08:53)
[2017-11-26] MEDS: 0.9% NaCl Peripheral Flush Adult/Peds IV ×2 (08:54→17:11)
[2017-11-26] MEDS: Ceftriaxone 1 GM/50 ML BAG IV (08:54)
[2017-11-26] MEDS: predniSONE 20 MG Tablet 40 MG PO (08:56)
--- NOTE | 2017-11-26 14:55 | PCM.PN.HOSP ---
Patient Problems: Active and Suspected Problems (Last Reviewed 11/23/17 @ 13:04 by Jackson Peter DO) Acute respiratory failure with hypoxia and hypercapnia (Acute) COPD with acute exacerbation (Acute) Gram-negative pneumonia (Acute) Acute hypercapnic respiratory failure (Acute) Subjective: Patient got short of breath on walking. At rest, she is on 3 liter of oxygen. Still coughing and wheezing Vitals/I&O's: Vital Signs Temp Pulse Resp BP Pulse Ox 97.7 F L 88 16 144/64 H 98 11/26/17 11:50 11/26/17 14:49 11/26/17 14:49 11/26/17 11:50 11/26/17 14:49 Oxygen Flow Rate (L/min) [ 2 AMBULATION with Oxygen] Oxygen Flow Rate (L/min) 3 Oxygen Delivery Method Nasal Cannula Weight: 156 lb 4.924 oz Body Mass Index (BMI) 27.5 Intake and Output for Last 24 Hours 11/24/17 11/25/17 11/26/17 23:59 23:59 23:59 Intake Total 2987.9 / 2987.9 1648.3 / 1648.3 / Output Total 2400 / 2400 2049 / 2049 Balance 587.9 / 587.9 -401.7 / -401.7 93 / 93 General: Alert, Oriented x3, Cooperative HEENT: Atraumatic, PERRLA, EOMI, Normocephalic Neck: Supple, No JVD, Negative Carotid Bruits Lungs: Diminished, Rhonchi, Short of Breath - Mild exertion, Wheezes Cardiovascular: Regular rate, Regular Rhythm, Normal S1, Normal S2, No murmurs Abdomen: Bowel Sounds Present, Soft, Non Tender Extremities: No edema, Capillary Refill Less than 3 Seconds Skin: No rashes, No breakdown Musculoskeletal: No Tenderness to Palpation of Joints or Extremities Neurological: Cranial nerves II-XII grossly intact Psych/Mental Status: Normal Affect, Appropriate Microbiology Past 72 Hours 11/24/17 07:10 Sputum, Induced/Lukens Gram Stain - Final 11/24/17 07:10 Sputum, Induced/Lukens Respiratory Culture - Preliminary Presumptive C albicans Gram negative chantal 11/23/17 19:55 Urine Catheter - Burk Streptococcus pneumoniae Antigen (M - Final 11/23/17 19:55 Urine Catheter - Burk Legionella Antigen - Final 11/23/17 18:30 Mucosa - Nose Influenza Types A,B Direct FA (CORY) - Final Current Medications Acetaminophen (Tylenol) 650 mg PO Q6H PRN PRN PRN Reason: PAIN Last Admin: 11/26/17 06:07 Dose: 650 mg Aspirin (Aspirin, Baby) 81 mg PO DAILY@0800 [facility] Last Admin: 11/26/17 08:52 Dose: 81 mg Atorvastatin Calcium (Lipitor) 80 mg PO QHS [facility] Last Admin: 11/25/17 21:36 Dose: 80 mg Bupropion HCl (Wellbutrin Sr (150mg Tablets)) 150 mg PO DAILY [facility] Last Admin: 11/26/17 08:53 Dose: 150 mg Carvedilol (Coreg) 3.125 mg PO BID [facility] Last Admin: 11/26/17 08:52 Dose: 3.125 mg Clopidogrel Bisulfate (Plavix) 75 mg PO DAILY [facility] Last Admin: 11/26/17 08:53 Dose: 75 mg Enoxaparin Sodium (Lovenox) 40 mg SC DAILY@1000 [facility] Last Admin: 11/26/17 08:53 Dose: 40 mg Famotidine (Pepcid) 20 mg PO DAILY [facility] Last Admin: 11/26/17 08:53 Dose: 20 mg Furosemide (Lasix) 20 mg IV BID@1000,1800 [facility] Last Admin: 11/26/17 08:53 Dose: 20 mg Ceftriaxone Sodium (Rocephin) 1 gm in 50 mls @ 100 mls/hr IV Q24 [facility] Last Admin: 11/26/17 08:54 Dose: 100 mls/hr Levalbuterol HCl (Xopenex) 0.63 mg IH Q4HWA.RT [facility] Last Admin: 11/26/17 14:49 Dose: 0.63 mg Losartan Potassium (Cozaar) 50 mg PO DAILY [facility] Last Admin: 11/26/17 08:53 Dose: 50 mg Magnesium Hydroxide (Milk Of Magnesia) 30 ml PO DAILY PRN PRN PRN Reason: Constipation Ondansetron HCl (Zofran) 4 mg IV Q8H PRN PRN PRN Reason: Nausea Prednisone () 40 mg PO DAILY@0800 [facility] Last Admin: 11/26/17 08:56 Dose: 40 mg Sodium Chloride () 5 - 30 ml IV UD PRN PRN Reason: SALINE FLUSH Last Admin: 11/26/17 08:54 Dose: 10 ml Sodium Chloride () 10 - 40 ml IV UD PRN PRN Reason: MULTILUMEN/HICMAN CATH FLUSH Last Admin: 11/24/17 05:44 Dose: 10 ml Medical Necessity - Tobacco Use Smoking Status: Current every day smoker Assessment/Plan All Active Problems (Last Reviewed 11/23/17 @ 13:04 by Jackson Peter DO) Acute respiratory failure with hypoxia and hypercapnia (Acute) COPD with acute exacerbation (Acute) Gram-negative pneumonia (Acute) Acute hypercapnic respiratory failure (Acute) NSTEMI (non-ST elevated myocardial infarction) (Acute) COPD exacerbation (Acute) Congestive heart failure (Acute) This is a 72-year-old female with history of COPD was admitted with shortness of breath consistent with COPD exacerbation. Patient was lethargic and initially put on BiPAP but later on intubated in the ER. Chest x-ray was consistent with infiltrates and bilateral lung bases along with chronic changes of COPD and fibrotic interstitial markings. With the concern of pneumonia, patient started on IV antibiotics. 1. Acute hypercapnic respiratory failure Suspect due to COPD exacerbation as well as pneumonia. Extubated on 11/25/2017. On 3 L of oxygen. Advised walking pulse oximetry on 4 L of oxygen tomorrow morning. 2. Acute COPD exacerbation Steroids. Solu-Medrol changed to prednisone Patient has rash with albuterol so patient will continue with her Xopenex 3. Suspected gram-negative pneumonia bilateral lower lobes Urinary antigens are negative. Influenza is negative. Sputum culture reported as presumptive Odalys albicans and gram-negative chantal Aztreonam, as patient has a penicillin allergy, and vancomycin. Later on antibiotic changed to ceftriaxone. 4. Heart failure with reduced ejection fraction Clinically, patient does not look in fluid overload state. BNP elevated most probably chronically elevated. Lasix as needed. Previous ejection fraction was 25% from echocardiogram on November 09 Continue with carvedilol and losartan 5. Coronary artery disease Recent drug-eluting stents to the distal and mid RCA on November 11 First troponin is negative second 0.382 and 0.454 mildly elevated possible related to demand supply mismatch. Patient denies chest pain, dizziness or diaphoresis. Continue with dual antiplatelet therapy. Follow-up with cardiology as outpatient If any acute issues arise while the patient is hospitalized, consult cardiology 6. DVT prophylaxis with Lovenox Microbiology Past 72 Hours 11/24/17 07:10 Sputum, Induced/Lukens Gram Stain - Final 11/24/17 07:10 Sputum, Induced/Lukens Respiratory Culture - Preliminary Presumptive C albicans Gram negative chantal 11/23/17 19:55 Urine Catheter - Burk Streptococcus pneumoniae Antigen (M - Final 11/23/17 19:55 Urine Catheter - Burk Legionella Antigen - Final 11/23/17 18:30 Mucosa - Nose Influenza Types A,B Direct FA (CORY) - Final Laboratory Results 11/25/17 04:08: WBC 14.2 H, RBC 3.24 L, Hgb 9.6 L, Hct 31.1 L, MCV 96.0, MCH 29.6, MCHC 30.9 L, RDW 14.9 H, RDW Differential 49.3 H, Plt Count 375, MPV 9.5, Immature Gran % (Auto) 0.600, Neut % (Auto) 90.7 H, Lymph % (Auto) 5.9 L, [place] % (Auto) 2.7, Eos % (Auto) 0.0, Baso % (Auto) 0.1, Absolute Neuts (auto) 12.9 H, Absolute Lymphs (auto) 0.84, Total Counted Not Reportable 11/25/17 04:08: Sodium 142, Potassium 3.8, Chloride 106, Carbon Dioxide 28.0, Anion Gap 8, BUN 25 H, Creatinine 0.91, Estim Creat Clear Calc 46.23, Est GFR (MDRD) Af Amer 78, Est GFR (MDRD) Non-Af 65, BUN/Creatinine Ratio 27.6 H, Glucose 98, Calcium 7.7 L, Phosphorus 2.4 L, Magnesium 2.2 11/25/17 06:04: Specimen Type ART, Sample Site R Radial, pH 7.43, Bicarbonate Actual 27.3 H, POC Total CO2 29, Base Excess 3 H, O2 Saturation 95, O2 % 30, ABG pCO2 41.0, ABG pO2 73 L, O2 Delivery Device Vent, Vent Mode CPAP PS, POC PEEP 5, POC Pressure Suppt 5, Blood Gas Notified Whom ICU , Blood Gas Notified Time 557 11/25/17 08:00: MRSA (PCR) Pending Clinical Impression(s) from Imaging Studies Chest X-Ray 11/23/17 10:35 IMPRESSION: Advanced chronic lung disease. Cannot exclude superimposed mild edema and/or atypical infiltrates. Active Medications Acetaminophen (Tylenol) 650 mg PO Q6H PRN PRN PRN Reason: PAIN Last Admin: 11/26/17 06:07 Dose: 650 mg Aspirin (Aspirin, Baby) 81 mg PO DAILY@0800 [facility] Last Admin: 11/26/17 08:52 Dose: 81 mg Atorvastatin Calcium (Lipitor) 80 mg PO QHS [facility] Last Admin: 11/25/17 21:36 Dose: 80 mg Bupropion HCl (Wellbutrin Sr (150mg Tablets)) 150 mg PO DAILY [facility] Last Admin: 11/26/17 08:53 Dose: 150 mg Carvedilol (Coreg) 3.125 mg PO BID [facility] Last Admin: 11/26/17 08:52 Dose: 3.125 mg Clopidogrel Bisulfate (Plavix) 75 mg PO DAILY [facility] Last Admin: 11/26/17 08:53 Dose: 75 mg Enoxaparin Sodium (Lovenox) 40 mg SC DAILY@1000 [facility] Last Admin: 11/26/17 08:53 Dose: 40 mg Famotidine (Pepcid) 20 mg PO DAILY [facility] Last Admin: 11/26/17 08:53 Dose: 20 mg Furosemide (Lasix) 20 mg IV BID@1000,1800 [facility] Last Admin: 11/26/17 08:53 Dose: 20 mg Ceftriaxone Sodium (Rocephin) 1 gm in 50 mls @ 100 mls/hr IV Q24 [facility] Last Admin: 11/26/17 08:54 Dose: 100 mls/hr Levalbuterol HCl (Xopenex) 0.63 mg IH Q4HWA.RT [facility] Last Admin: 11/26/17 14:49 Dose: 0.63 mg Losartan Potassium (Cozaar) 50 mg PO DAILY [facility] Last Admin: 11/26/17 08:53 Dose: 50 mg Magnesium Hydroxide (Milk Of Magnesia) 30 ml PO DAILY PRN PRN PRN Reason: Constipation Ondansetron HCl (Zofran) 4 mg IV Q8H PRN PRN PRN Reason: Nausea Prednisone () 40 mg PO DAILY@0800 [facility] Last Admin: 11/26/17 08:56 Dose: 40 mg Sodium Chloride () 5 - 30 ml IV UD PRN PRN Reason: SALINE FLUSH Last Admin: 11/26/17 08:54 Dose: 10 ml Sodium Chloride () 10 - 40 ml IV UD PRN PRN Reason: MULTILUMEN/HICMAN CATH FLUSH Last Admin: 11/24/17 05:44 Dose: 10 ml Code Visit Inpatient E&M: 76215 Subs Hosp L3
--- NOTE | 2017-11-26 15:02 | PN_ITS ---
Patient Problems: Active and Suspected Problems (Last Reviewed 11/23/17 @ 13:04 by Jackson Peter DO) Acute respiratory failure with hypoxia and hypercapnia (Acute) COPD with acute exacerbation (Acute) Gram-negative pneumonia (Acute) Acute hypercapnic respiratory failure (Acute) Subjective: Patient got short of breath on walking. At rest, she is on 3 liter of oxygen. Still coughing and wheezing Vitals/I&O's: Vital Signs Temp Pulse Resp BP Pulse Ox 97.7 F L 88 16 144/64 H 98 11/26/17 11:50 11/26/17 14:49 11/26/17 14:49 11/26/17 11:50 11/26/17 14:49 Oxygen Flow Rate (L/min) [ 2 AMBULATION with Oxygen] Oxygen Flow Rate (L/min) 3 Oxygen Delivery Method Nasal Cannula Weight: 156 lb 4.924 oz Body Mass Index (BMI) 27.5 Intake and Output for Last 24 Hours 11/24/17 11/25/17 11/26/17 23:59 23:59 23:59 Intake Total 2987.9 / 2987.9 1648.3 / 1648.3 / Output Total 2400 / 2400 2049 / 2049 Balance 587.9 / 587.9 -401.7 / -401.7 93 / 93 General: Alert, Oriented x3, Cooperative HEENT: Atraumatic, PERRLA, EOMI, Normocephalic Neck: Supple, No JVD, Negative Carotid Bruits Lungs: Diminished, Rhonchi, Short of Breath - Mild exertion, Wheezes Cardiovascular: Regular rate, Regular Rhythm, Normal S1, Normal S2, No murmurs Abdomen: Bowel Sounds Present, Soft, Non Tender Extremities: No edema, Capillary Refill Less than 3 Seconds Skin: No rashes, No breakdown Musculoskeletal: No Tenderness to Palpation of Joints or Extremities Neurological: Cranial nerves II-XII grossly intact Psych/Mental Status: Normal Affect, Appropriate Microbiology Past 72 Hours 11/24/17 07:10 Sputum, Induced/Lukens Gram Stain - Final 11/24/17 07:10 Sputum, Induced/Lukens Respiratory Culture - Preliminary Presumptive C albicans Gram negative chantal 11/23/17 19:55 Urine Catheter - Burk Streptococcus pneumoniae Antigen (M - Final 11/23/17 19:55 Urine Catheter - Burk Legionella Antigen - Final 11/23/17 18:30 Mucosa - Nose Influenza Types A,B Direct FA (CORY) - Final Current Medications Acetaminophen (Tylenol) 650 mg PO Q6H PRN PRN PRN Reason: PAIN Last Admin: 11/26/17 06:07 Dose: 650 mg Aspirin (Aspirin, Baby) 81 mg PO DAILY@0800 [facility] Last Admin: 11/26/17 08:52 Dose: 81 mg Atorvastatin Calcium (Lipitor) 80 mg PO QHS [facility] Last Admin: 11/25/17 21:36 Dose: 80 mg Bupropion HCl (Wellbutrin Sr (150mg Tablets)) 150 mg PO DAILY [facility] Last Admin: 11/26/17 08:53 Dose: 150 mg Carvedilol (Coreg) 3.125 mg PO BID [facility] Last Admin: 11/26/17 08:52 Dose: 3.125 mg Clopidogrel Bisulfate (Plavix) 75 mg PO DAILY [facility] Last Admin: 11/26/17 08:53 Dose: 75 mg Enoxaparin Sodium (Lovenox) 40 mg SC DAILY@1000 [facility] Last Admin: 11/26/17 08:53 Dose: 40 mg Famotidine (Pepcid) 20 mg PO DAILY [facility] Last Admin: 11/26/17 08:53 Dose: 20 mg Furosemide (Lasix) 20 mg IV BID@1000,1800 [facility] Last Admin: 11/26/17 08:53 Dose: 20 mg Ceftriaxone Sodium (Rocephin) 1 gm in 50 mls @ 100 mls/hr IV Q24 [facility] Last Admin: 11/26/17 08:54 Dose: 100 mls/hr Levalbuterol HCl (Xopenex) 0.63 mg IH Q4HWA.RT [facility] Last Admin: 11/26/17 14:49 Dose: 0.63 mg Losartan Potassium (Cozaar) 50 mg PO DAILY [facility] Last Admin: 11/26/17 08:53 Dose: 50 mg Magnesium Hydroxide (Milk Of Magnesia) 30 ml PO DAILY PRN PRN PRN Reason: Constipation Ondansetron HCl (Zofran) 4 mg IV Q8H PRN PRN PRN Reason: Nausea Prednisone () 40 mg PO DAILY@0800 [facility] Last Admin: 11/26/17 08:56 Dose: 40 mg Sodium Chloride () 5 - 30 ml IV UD PRN PRN Reason: SALINE FLUSH Last Admin: 11/26/17 08:54 Dose: 10 ml Sodium Chloride () 10 - 40 ml IV UD PRN PRN Reason: MULTILUMEN/HICMAN CATH FLUSH Last Admin: 11/24/17 05:44 Dose: 10 ml Medical Necessity - Tobacco Use Smoking Status: Current every day smoker Assessment/Plan All Active Problems (Last Reviewed 11/23/17 @ 13:04 by Jackson Peter DO) Acute respiratory failure with hypoxia and hypercapnia (Acute) COPD with acute exacerbation (Acute) Gram-negative pneumonia (Acute) Acute hypercapnic respiratory failure (Acute) NSTEMI (non-ST elevated myocardial infarction) (Acute) COPD exacerbation (Acute) Congestive heart failure (Acute) This is a 72-year-old female with history of COPD was admitted with shortness of breath consistent with COPD exacerbation. Patient was lethargic and initially put on BiPAP but later on intubated in the ER. Chest x-ray was consistent with infiltrates and bilateral lung bases along with chronic changes of COPD and fibrotic interstitial markings. With the concern of pneumonia, patient started on IV antibiotics. 1. Acute hypercapnic respiratory failure * Suspect due to COPD exacerbation as well as pneumonia. * Extubated on 11/25/2017. On 3 L of oxygen. * Advised walking pulse oximetry on 4 L of oxygen tomorrow morning. 2. Acute COPD exacerbation * Steroids. Solu-Medrol changed to prednisone * Patient has rash with albuterol so patient will continue with her Xopenex 3. Suspected gram-negative pneumonia bilateral lower lobes * Urinary antigens are negative. Influenza is negative. Sputum culture reported as presumptive Odalys albicans and gram-negative chantal * Aztreonam, as patient has a penicillin allergy, and vancomycin. Later on antibiotic changed to ceftriaxone. 4. Heart failure with reduced ejection fraction * Clinically, patient does not look in fluid overload state. BNP elevated most probably chronically elevated. Lasix as needed. * Previous ejection fraction was 25% from echocardiogram on November 09 * Continue with carvedilol and losartan 5. Coronary artery disease * Recent drug-eluting stents to the distal and mid RCA on November 11 * First troponin is negative second 0.382 and 0.454 mildly elevated possible related to demand supply mismatch. Patient denies chest pain, dizziness or diaphoresis. * Continue with dual antiplatelet therapy. * Follow-up with cardiology as outpatient * If any acute issues arise while the patient is hospitalized, consult cardiology 6. DVT prophylaxis with Lovenox Microbiology Past 72 Hours 11/24/17 07:10 Sputum, Induced/Lukens Gram Stain - Final 11/24/17 07:10 Sputum, Induced/Lukens Respiratory Culture - Preliminary Presumptive C albicans Gram negative chantal 11/23/17 19:55 Urine Catheter - Burk Streptococcus pneumoniae Antigen (M - Final 11/23/17 19:55 Urine Catheter - Burk Legionella Antigen - Final 11/23/17 18:30 Mucosa - Nose Influenza Types A,B Direct FA ([facility]) - Final Laboratory Results 11/25/17 04:08: WBC 14.2 H, RBC 3.24 L, Hgb 9.6 L, Hct 31.1 L, MCV 96.0, MCH 29.6, MCHC 30.9 L, RDW 14.9 H, RDW Differential 49.3 H, Plt Count 375, MPV 9.5, Immature Gran % (Auto) 0.600, Neut % (Auto) 90.7 H, Lymph % (Auto) 5.9 L, [place] % (Auto) 2.7, Eos % (Auto) 0.0, Baso % (Auto) 0.1, Absolute Neuts (auto) 12.9 H, Absolute Lymphs (auto) 0.84, Total Counted Not Reportable 11/25/17 04:08: Sodium 142, Potassium 3.8, Chloride 106, Carbon Dioxide 28.0, Anion Gap 8, BUN 25 H, Creatinine 0.91, Estim Creat Clear Calc 46.23, Est GFR (MDRD) Af Amer 78, Est GFR (MDRD) Non-Af 65, BUN/Creatinine Ratio 27.6 H, Glucose 98, Calcium 7.7 L, Phosphorus 2.4 L, Magnesium 2.2 11/25/17 06:04: Specimen Type ART, Sample Site R Radial, pH 7.43, Bicarbonate Actual 27.3 H, POC Total CO2 29, Base Excess 3 H, O2 Saturation 95, O2 % 30, ABG pCO2 41.0, ABG pO2 73 L, O2 Delivery Device Vent, Vent Mode CPAP PS, POC PEEP 5, POC Pressure Suppt 5, Blood Gas Notified Whom ICU , Blood Gas Notified Time 557 11/25/17 08:00: MRSA (PCR) Pending Clinical Impression(s) from Imaging Studies Chest X-Ray 11/23/17 10:35 IMPRESSION: Advanced chronic lung disease. Cannot exclude superimposed mild edema and/or atypical infiltrates. Active Medications Acetaminophen (Tylenol) 650 mg PO Q6H PRN PRN PRN Reason: PAIN Last Admin: 11/26/17 06:07 Dose: 650 mg Aspirin (Aspirin, Baby) 81 mg PO DAILY@0800 [facility] Last Admin: 11/26/17 08:52 Dose: 81 mg Atorvastatin Calcium (Lipitor) 80 mg PO QHS [facility] Last Admin: 11/25/17 21:36 Dose: 80 mg Bupropion HCl (Wellbutrin Sr (150mg Tablets)) 150 mg PO DAILY [facility] Last Admin: 11/26/17 08:53 Dose: 150 mg Carvedilol (Coreg) 3.125 mg PO BID [facility] Last Admin: 11/26/17 08:52 Dose: 3.125 mg Clopidogrel Bisulfate (Plavix) 75 mg PO DAILY [facility] Last Admin: 11/26/17 08:53 Dose: 75 mg Enoxaparin Sodium (Lovenox) 40 mg SC DAILY@1000 [facility] Last Admin: 11/26/17 08:53 Dose: 40 mg Famotidine (Pepcid) 20 mg PO DAILY [facility] Last Admin: 11/26/17 08:53 Dose: 20 mg Furosemide (Lasix) 20 mg IV BID@1000,1800 [facility] Last Admin: 11/26/17 08:53 Dose: 20 mg Ceftriaxone Sodium (Rocephin) 1 gm in 50 mls @ 100 mls/hr IV Q24 [facility] Last Admin: 11/26/17 08:54 Dose: 100 mls/hr Levalbuterol HCl (Xopenex) 0.63 mg IH Q4HWA.RT [facility] Last Admin: 11/26/17 14:49 Dose: 0.63 mg Losartan Potassium (Cozaar) 50 mg PO DAILY [facility] Last Admin: 11/26/17 08:53 Dose: 50 mg Magnesium Hydroxide (Milk Of Magnesia) 30 ml PO DAILY PRN PRN PRN Reason: Constipation Ondansetron HCl (Zofran) 4 mg IV Q8H PRN PRN PRN Reason: Nausea Prednisone () 40 mg PO DAILY@0800 [facility] Last Admin: 11/26/17 08:56 Dose: 40 mg Sodium Chloride () 5 - 30 ml IV UD PRN PRN Reason: SALINE FLUSH Last Admin: 11/26/17 08:54 Dose: 10 ml Sodium Chloride () 10 - 40 ml IV UD PRN PRN Reason: MULTILUMEN/HICMAN CATH FLUSH Last Admin: 11/24/17 05:44 Dose: 10 ml Code Visit Inpatient E&M: 46838 Subs Hosp L3
[2017-11-26] MEDS: Atorvastatin Calcium 80 MG Tablet PO (21:38)
[2017-11-26] MEDS: Na Biphos/Potassium Phosphate PACKET 1 PACKET PO (21:38)
[2017-11-27 03:34] VITALS: BP 120/61; PULSE 86; RESP 20; TEMP 36.6; O2SAT 98
[2017-11-27 03:59] VITALS: PULSE 51
[2017-11-27] MEDS: 0.9% NaCl Peripheral Flush Adult/Peds IV ×2 (05:41→09:30)
[2017-11-27 06:22] LABS: Anion Gap 8 (5-15); BUN 28 mg/dL (7-18); BUN/Creat Ratio 30.6 RATIO (10-20); Calcium,Total 8.1 mg/dL (8.5-10.1); Chloride 105 mmol/L (98-107); Creatinine, Serum 0.92 mg/dL (0.55-1.02); EST Glomerular Filtration Rate 64 mL/min (>60); Est Glom Filt Rate - Afr Amer 77 mL/min (>60); Estimated Creatinine Clearance 45.72 ml/min; Glucose 78 mg/dL (74-106); Phosphorus 3.1 mg/dL (2.5-4.9); Potassium 3.1 mmol/L (3.5-5.1); Sodium Level 146 mmol/L (136-145)
[2017-11-27 06:57] VITALS: PULSE 57; RESP 18; O2SAT 98
[2017-11-27] MEDS: LEVALBUTEROL HCL 0.63 MG/3 ML VIAL.NEB IH ×2 (06:57→11:15)
[2017-11-27 07:11] VITALS: PULSE 58
--- NOTE | 2017-11-27 08:02 | PCM.PROGNOTE ---
Patient Problems: Active and Suspected Problems (Last Reviewed 11/23/17 @ 13:04 by Jackson Peter DO) Acute respiratory failure with hypoxia and hypercapnia (Acute) COPD with acute exacerbation (Acute) Gram-negative pneumonia (Acute) Acute hypercapnic respiratory failure (Acute) Subjective: Patient did well overnight. No acute issues were reported. Patient does report significant dyspnea on exertion. Patient denies any current chest pain. Patient feels subjectively improved compared to previous. Objective: Patient had a walking oximetry yesterday showing 94% on room air at rest, but required 3 L nasal cannula with exertion. - Physical Exam General: Alert, Oriented x3, Cooperative, No apparent distress, - - Speaking in full sentences. HEENT: Atraumatic, PERRLA, EOMI, Normocephalic, - - No scleral icterus or injection noted. Oral: Moist Mucosa, No Gingival or Mucosal Lesions/ Ulcerations Neck: Supple, No JVD, No Nodes, Trachea Midline Lungs: No rhonchi, No rales, Diminished, Wheezes, - - Symmetric expansion. No dullness to percussion. Cardiovascular: Regular rate, Regular Rhythm, Normal S1, Normal S2, No murmurs, No rub noted, No Gallop Abdomen: Bowel Sounds Present, Soft, Non Tender, Non-Distended Extremities: No cyanosis, No edema, Capillary Refill Less than 3 Seconds, Clubbing Skin: No rashes, No breakdown Musculoskeletal: No Tenderness to Palpation of Joints or Extremities Lymphatic: No Cervical, Supraclavicular, or Inguinal Adenopathy Neurological: Cranial nerves II-XII grossly intact, Neuro grossly intact, Motor Exam 5/5 strength throughout Psych/Mental Status: Alert and oriented to time, place, person, mood and affect Vital Signs Temp Pulse Resp BP Pulse Ox 36.6 C 58 L 20 H 120/61 98 11/27/17 03:34 11/27/17 07:11 11/27/17 03:34 11/27/17 03:34 11/27/17 03:34 Oxygen Flow Rate (L/min) [ 2 AMBULATION with Oxygen] Oxygen Flow Rate (L/min) 3 Oxygen Delivery Method Nasal Cannula Weight: 70.1 kg Body Mass Index (BMI) 27.5 Intake and Output for Last 24 Hours 09/24/18 09/25/18 09/26/18 23:59 23:59 23:59 Intake Total 1648.3 / 1648.3 456 / 456 600 / 600 Output Total 2049 950 / 950 Balance -401.7 / -401.7 456 / 456 -350 / -350 Microbiology Past 72 Hours 11/24/17 07:10 Gram Stain - Final Sputum, Induced/Lukens Respiratory Culture - Preliminary Presumptive C albicans Gram negative chantal Laboratory Tests Past 24 Hrs 11/27/17 05:40 Sodium 146 H Potassium 3.1 L Chloride 105 Carbon Dioxide 33.0 H Anion Gap 8 BUN 28 H Creatinine 0.92 Estim Creat Clear Calc 45.72 Est GFR (MDRD) Af Amer 77 Est GFR (MDRD) Non-Af 64 BUN/Creatinine Ratio 30.6 H Glucose 78 Calcium 8.1 L Phosphorus 3.1 Magnesium 2.0 Medical Necessity - Tobacco Use Smoking Status: Current every day smoker Assessment/Plan All Active Problems (Last Reviewed 11/23/17 @ 13:04 by Jackson Peter DO) Acute respiratory failure with hypoxia and hypercapnia (Acute) COPD with acute exacerbation (Acute) Gram-negative pneumonia (Acute) Acute hypercapnic respiratory failure (Acute) NSTEMI (non-ST elevated myocardial infarction) (Acute) COPD exacerbation (Acute) Congestive heart failure (Acute) RECOMMENDATIONS: 1. Await sensitivities from sputum for p.o. antibiotic 2. Continue aggressive pulmonary toileting 3. Transition to prednisone therapy, continue bronchodilators and complete 7 days of antibiotics 4. Walking oximetry prior to discharge 5. Follow-up with nurse practitioner in 2 weeks in my office 6. Patient has supplemental oxygen for home 7. Wean steroids over 12-14 days IMPRESSIONS: 1. Acute on chronic combined respiratory failure secondary to probable COPD exacerbation Patient with rapid recovery from acute respiratory failure. Patient reporting she is at her baseline and tolerating 3 L nasal cannula. Prednisone will need to be weaned over the next 12-14 days. Patient does have a polymicrobial sputum culture, so wait for sensitivities to direct p.o. antibiotics. Patient should complete 7 days of antibiotics. Wean oxygen as tolerated. Patient will require supplemental oxygen on discharge. If discharged, patient should follow-up with nurse practitioner in 2 weeks with my office. 2. Acute on chronic systolic congestive heart failure/coronary artery disease Last known ejection fraction of 25%. Patient does have an elevation of troponin, but this likely represents supply demand mismatch. Patient did have a recent heart catheterization with stent placement. Defer to hospitalist on whether cardiology needs to be involved. Patient should remain on medical therapy. Plavix in place. Likely okay to discontinue diuretic therapy from my perspective 3. Tobacco abuse despite oxygen therapy/hypertension/hyperlipidemia/peripheral vascular disease/recent non-ST elevation CA Complicates care, management, recovery and prognosis. Unclear baseline respiratory status and whether oxygen is secondary to congestive heart failure or advanced COPD. Patient would benefit from outpatient pulmonary function tests, smoking cessation and optimization of saturations. Likely okay to continue with baseline medications. Code Visit Inpatient E&M: 93764 Subs Hosp L2
[2017-11-27 08:52] VITALS: BP 111/59; PULSE 58; RESP 18; TEMP 36.5; O2SAT 99
[2017-11-27] MEDS: Aspirin 81 MG TAB.CHEW PO (09:16)
[2017-11-27] MEDS: Losartan Potassium 50 MG Tablet PO (09:18)
[2017-11-27] MEDS: Enoxaparin 40 MG/0.4 ML Syringe SC (09:18)
[2017-11-27] MEDS: Furosemide 20 MG/2 ML VIAL IV (09:18)
[2017-11-27] MEDS: Na Biphos/Potassium Phosphate PACKET 1 PACKET PO ×2 (09:19→11:57)
[2017-11-27] MEDS: buPROPion (SR) 150 MG Tablet.SA PO (09:19)
[2017-11-27] MEDS: Ceftriaxone 1 GM/50 ML BAG IV (09:19)
[2017-11-27] MEDS: Clopidogrel Bisulfate 75 MG Tablet PO (09:19)
[2017-11-27] MEDS: Famotidine 20 MG Tablet PO (09:19)
[2017-11-27] MEDS: predniSONE 20 MG Tablet 40 MG PO (09:29)
[2017-11-27] MEDS: Acetaminophen 325 MG Tablet 650 MG PO (09:29)
--- NOTE | 2017-11-27 09:46 | NURSING ---
Spoke with Paulino in pharmacy regarding Coreg 3.125. When scanned, it states the dose scanned is only 3.124mg. Paulino to send a dose he has up so I can scan that.
--- NOTE | 2017-11-27 10:38 | PCM.DC ---
- Discharge Diagnoses Current Active Problems: Current Active and Chronic Problems (Last Reviewed 11/23/17 @ 13:04 by Jackson Peter DO) Acute respiratory failure with hypoxia and hypercapnia (Acute) COPD with acute exacerbation (Acute) Gram-negative pneumonia (Acute) Acute hypercapnic respiratory failure (Acute) You will use the following diet at home:: Regular, Cardiac Your liquids should be the consistency of: Regular/Thin Discharge Activity: May Not Drive Allergies/Adverse Reactions: Allergies codeine Allergy (Unknown, Verified 11/23/17 11:02) Unknown lithium Allergy (Unknown, Verified 11/23/17 11:02) Unknown morphine Allergy (Unknown, Verified 11/23/17 11:02) Unknown naproxen [From Naprosyn] Allergy (Unknown, Verified 11/23/17 11:02) Unknown phenobarbital Allergy (Unknown, Verified 11/23/17 11:02) Unknown Sulfa (Sulfonamide Antibiotics) Allergy (Unknown, Verified 11/23/17 11:02) Unknown albuterol Allergy (Verified 11/23/17 11:02) Rash fentanyl Adverse Reaction (Severe, Verified 11/23/17 18:23) Other OD on Fentany patch. Very sensitive to does 75mcg patch Iodine and Iodide Containing Produc Adverse Reaction (Verified 11/23/17 11:02) Unknown Penicillins [PCN] Adverse Reaction (Verified 11/23/17 11:02) Unknown Medications to take at Discharge Amlodipine [Norvasc] 5 mg PO DAILY 07/13/14 Aspirin 81 mg PO DAILY@0800 07/13/14 Atorvastatin Calcium [Lipitor] 80 mg PO QHS 07/13/14 Cyclobenzaprine [Flexeril] 10 mg PO DAILY 07/13/14 Fenofibrate [Tricor] 145 mg PO DAILY 07/13/14 Gabapentin [Neurontin] 300 mg PO BIDCM 07/13/14 Ipratropium/Albuterol Sulfate 2 puff INHALATION 4X/DAY 07/13/14 Tiotropium [place] [Spiriva 18 MCG] 1 puff INHALATION DAILY 07/13/14 Vitamin D 50,000 units PO WE 07/13/14 Fluticasone/Vilanterol [Breo Ellipta 200-25 Mcg INH] 1 ea IH DAILY 12/17/16 Ipratropium [Atrovent Inhaler] 2 puff INHALATION 4X/DAY 12/17/16 Paroxetine HCl [Paxil] 40 mg PO DAILY 12/17/16 diphenhydramine 25 mg tablet 25 mg PO Q6H PRN 03/20/17 nitroglycerin 0.4 mg sublingual tablet 0.4 mg SUBLINGUAL Q5M PRN #25 tab 03/25/17 ranolazine ER 500 mg tablet,extended release,12 hr 500 mg PO BID #180 tab 03/25/17 losartan 50 mg tablet 50 mg PO DAILY #90 tab 10/17/17 clopidogrel 75 mg tablet 75 mg PO DAILY #90 tab 10/23/17 Carvedilol [Coreg (Beta Tata)] 3.125 mg PO BID #60 tab 11/12/17 Cholecalciferol (Vitamin D3) [Vitamin D3] 50,000 unit PO QWEEK 11/23/17 Isosorbide Mononitrate [Imdur] 90 mg PO QDAY 11/23/17 Levalbuterol HCl 0.63 mg INHALATION 4X/DAY PRN 11/23/17 Pantoprazole Sodium [Protonix] 20 mg PO DAILY 11/23/17 buPROPion SR [Wellbutrin SR (150mg tablets)] 150 mg PO DAILY 11/23/17 busPIRone [Buspar] 15 mg PO DAILY 11/23/17 Levofloxacin [Levaquin] 500 mg PO DAILY #3 tablet 11/27/17 Potassium Chloride [K-Dur] 40 meq PO BIDCM #30 tablet 11/27/17 The following prescriptions were given: Levofloxacin [Levaquin] 500 mg PO DAILY #3 tablet Potassium Chloride [K-Dur] 40 meq PO BIDCM #30 tablet Primary Care Physician: Darleen Craig MD [Primary Care Provider] - Please follow up with your Primary Care Physician in: in 1-2 weeks Test Results: Test results from this visit will be discussed in further detail at your follow-up appointment, if applicable. Please Follow Up With: Melanie Domingo NP-C Please Follow Up With: Darleen Craig MD
--- NOTE | 2017-11-27 10:40 | DS.PCM_ITS ---
Discharge Date and Diagnosis Date of Admission: 11/23/17 Date of Discharge: 11/27/17 - Primary Discharge Diagnosis Active and Suspected Problems (Last Reviewed 11/23/17 @ 13:04 by Jackson Peter DO) Acute respiratory failure with hypoxia and hypercapnia (Acute) COPD with acute exacerbation (Acute) Gram-negative pneumonia (Acute), bilateral lower lobes Acute hypercapnic respiratory failure (Acute) - Secondary Discharge Diagnosis Chronic Problems (Last Reviewed 11/23/17 @ 13:04 by Jackson Peter DO) CAD (coronary artery disease) (Chronic) Successful PTCA/SUSAN of the of mid/distal RCA with a 2.25 x 38 Promus Synergy, post dilated proximally with a 3.0 x 12 NC balloon at 8 safia (2.5mm); 75%-->0%, no dissection. Successful PTCA/SUSAN of the proximal RCA with a 2.5 x 20 Promus Synergy, post dilated with a 3.0 x 12 at 14 safia; 75%-->0%, no dissection. Tobacco abuse (Chronic) Nonrheumatic tricuspid (valve) insufficiency (Chronic) Nonrheumatic mitral valve insufficiency (Chronic) Nicotine dependence, cigarettes, uncomplicated (Chronic) Hypertension (Chronic) Hyperlipidemia (Chronic) Atherosclerosis of [place] coronary artery of [place] heart without angina pectoris (Chronic) PTCA/SUSAN to ostium of LMT 10/01/2014 @[facility]; Peripheral vascular disease (Chronic) SOB (shortness of breath) (Chronic) Hospital Course and Treatment Summary of Care Provided: [] This is a 72-year-old female with history of COPD was admitted with shortness of breath consistent with COPD exacerbation. Patient was lethargic and initially put on BiPAP but later on intubated in the ER. Chest x-ray was consistent with infiltrates and bilateral lung bases along with chronic changes of COPD and fibrotic interstitial markings. With the concern of pneumonia, patient started on IV antibiotics. 1. Acute hypercapnic respiratory failure * Suspect due to COPD exacerbation as well as pneumonia. * Extubated on 11/25/2017. On 3 L of oxygen. * The patient was advised to increase oxygen to 4 L on exertion or walking. * Patient was discharged on Levaquin 500 mg 2. Acute COPD exacerbation * Steroids. Solu-Medrol changed to prednisone * Patient has rash with albuterol so patient and therefore continue with her Xopenex 3. Suspected gram-negative pneumonia, bilateral lower lobes * Urinary antigens are negative. Influenza is negative. Sputum culture reported as presumptive Odalys albicans and gram-negative chantal * Aztreonam, as patient has a penicillin allergy, and vancomycin. Later on antibiotic changed to ceftriaxone. * Patient was discharged on Levaquin 500 mg for 3 more days to complete a total of 8 days of antibiotics. * Follow-up with pulmonary clinic with nurse practitioner in 2 weeks. 4. Heart failure with reduced ejection fraction * Clinically, patient does not look in fluid overload state. BNP elevated most probably chronically elevated. Lasix as needed. * Previous ejection fraction was 25% from echocardiogram on November 09 * Continue with carvedilol and losartan 5. Coronary artery disease * Recent drug-eluting stents to the distal and mid RCA on November 11 * First troponin is negative second 0.382 and 0.454 mildly elevated possible related to demand supply mismatch. Patient denies chest pain, dizziness or diaphoresis. * Continue with dual antiplatelet therapy. * Follow-up with cardiology as outpatient 6. DVT prophylaxis with Lovenox Discharge medication reconciliation done. Discharge follow-up instructions completed. Patient requires oxygen at home and in community for acute hypoxic and hypercarbic respiratory failure. Total time spent, exact 35 minutes on discharge meds reconciliation, examination, review of imaging and blood test and discussion with the patient on follow-up instructions. Discharge Activity: May Not Drive Home Medications: Medications to take at Discharge Amlodipine [Norvasc] 5 mg PO DAILY 07/13/14 Aspirin 81 mg PO DAILY@0800 07/13/14 Atorvastatin Calcium [Lipitor] 80 mg PO QHS 07/13/14 Cyclobenzaprine [Flexeril] 10 mg PO DAILY 07/13/14 Fenofibrate [Tricor] 145 mg PO DAILY 07/13/14 Gabapentin [Neurontin] 300 mg PO BIDCM 07/13/14 Ipratropium/Albuterol Sulfate 2 puff INHALATION 4X/DAY 07/13/14 Tiotropium [place] [Spiriva 18 MCG] 1 puff INHALATION DAILY 07/13/14 Vitamin D 50,000 units PO WE 07/13/14 Fluticasone/Vilanterol [Breo Ellipta 200-25 Mcg INH] 1 ea IH DAILY 12/17/16 Ipratropium [Atrovent Inhaler] 2 puff INHALATION 4X/DAY 12/17/16 Paroxetine HCl [Paxil] 40 mg PO DAILY 12/17/16 diphenhydramine 25 mg tablet 25 mg PO Q6H PRN 03/20/17 nitroglycerin 0.4 mg sublingual tablet 0.4 mg SUBLINGUAL Q5M PRN #25 tab 03/25/17 ranolazine ER 500 mg tablet,extended release,12 hr 500 mg PO BID #180 tab 03/25/17 losartan 50 mg tablet 50 mg PO DAILY #90 tab 10/17/17 clopidogrel 75 mg tablet 75 mg PO DAILY #90 tab 10/23/17 Carvedilol [Coreg (Beta Tata)] 3.125 mg PO BID #60 tab 11/12/17 Cholecalciferol (Vitamin D3) [Vitamin D3] 50,000 unit PO QWEEK 11/23/17 Isosorbide Mononitrate [Imdur] 90 mg PO QDAY 11/23/17 Levalbuterol HCl 0.63 mg INHALATION 4X/DAY PRN 11/23/17 Pantoprazole Sodium [Protonix] 20 mg PO DAILY 11/23/17 buPROPion SR [Wellbutrin SR (150mg tablets)] 150 mg PO DAILY 11/23/17 busPIRone [Buspar] 15 mg PO DAILY 11/23/17 Levofloxacin [Levaquin] 500 mg PO DAILY #3 tablet 11/27/17 Potassium Chloride [K-Dur] 40 meq PO BIDCM #30 tablet 11/27/17 Following Prescrptions Were Given to Patient: Levofloxacin [Levaquin] 500 mg PO DAILY #3 tablet Potassium Chloride [K-Dur] 40 meq PO BIDCM #30 tablet Primary Care Physician: Darleen Craig MD [Primary Care Provider] - Please follow up with your Primary Care Physician in: in 1-2 weeks Please Follow Up With: Melanie Domingo, CHANI-C Please Follow Up With: Darleen Craig MD Medical Necessity - Tobacco Use Smoking Status: Current every day smoker Meaningful Use Info Meaningful Use Diagnoses (Choose all that apply): None applicable Code Visit Inpatient E&M: 40175 [facility] Hosp
--- NOTE | 2017-11-27 10:54 | CASEMGMT ---
Therapy recommending additional therapy for pt and this LEIGH MEJIAS to room to speak with pt at this time. Pt declines HHC or OP therapy at this time. Pt states that she plans to f/u with pulmonology and they are 'going to work with her.' Pt states that there is family at home to help. Pt voices no further concerns/needs at this time. Pt aware that if she decides she needs HHC or OP once home that she can call PCP, voices understanding. [place] LEIGH MEJIAS
[2017-11-27] MEDS: Carvedilol 3.125 MG TABLET PO (11:11)
[2017-11-27 11:15] VITALS: PULSE 99; RESP 20
--- NOTE | 2017-11-28 15:28 | CASEMGMT ---
LEIGH MEJIAS Discharge F/U Phone Call LACE: 14 Strata: 4 Discharge date: 11/27/17 Call date: 11/28/17 Call time: [id number] Duration: 3 minutes Admission dx: Respiratory failure Pt states feeling 'pretty good' since discharged yesterday. Pt states that she has been using nebulizer and pt is speaking in full sentences at this time. Pt states no questions regarding discharge instructions or medications at this time. Pt states spoke with her CM and notified her of appt's in December so that she will have transportation set up. Pt states no suggestions for [facility] at this time. Pt voices no further questions/concerns/needs at this time. [place] LEIGH MEJIAS
== END 2017-11-27 13:30 | disposition home or self-care (01) | DRG 475 ==
LOC: ED 10:51 → ICU 12:58 → PCU 11-26 07:23
PROVIDERS: Internal Medicine Critical Care Medicine; Emergency Provider Emergency Medicine; Family Provider Internal Medicine; PCP Internal Medicine; Visit Provider Internal Medicine
DX: J96.22 Acute and chronic respiratory failure with hypercapnia (principal); I21.4 Non-ST elevation (NSTEMI) myocardial infarction; I11.0 Hypertensive heart disease with heart failure; I50.23 Acute on chronic systolic (congestive) heart failure; J44.1 Chronic obstructive pulmonary disease with (acute) exacerbation; J44.0 Chronic obstructive pulmonary disease with (acute) lower respiratory infection; I36.1 Nonrheumatic tricuspid (valve) insufficiency; I34.0 Nonrheumatic mitral (valve) insufficiency; J15.6 Pneumonia due to other Gram-negative bacteria; J96.21 Acute and chronic respiratory failure with hypoxia; Z23 Encounter for immunization; I25.10 Atherosclerotic heart disease of native coronary artery without angina pectoris; Z95.5 Presence of coronary angioplasty implant and graft; Z99.81 Dependence on supplemental oxygen; F17.210 Nicotine dependence, cigarettes, uncomplicated; E78.5 Hyperlipidemia, unspecified; E11.51 Type 2 diabetes mellitus with diabetic peripheral angiopathy without gangrene; Z88.0 Allergy status to penicillin
CPT/HCPCS: 31500; 31720; 36600; 51702; 71045; 80048; 82803; 83735; 83880; 84100; 84484; 85025; 85027; 87070; 87077; 87186; 87205; 87449; 87641; 87804; 92526; 93005; 94002; 94003; 94640; 94660; 94667; 94668; 95831; 97163; 97166; 97530; 97535; 97802; 99251; 99285; 99406; J7030; 90686; A4216; C1751; G0463; J1940

== ENCOUNTER → 2017-12-17 14:53 | Outpatient (CLI) | payer MEDICAID, SELFPAY ==
--- NOTE | 2017-12-17 14:55 | ECHOD_ITS ---
Reason For Study: CHF Procedure This was a 2D Doppler, Color Flow transthoracic echocardiogram. The study was technically difficult. Exam performed in department. Left Ventricle Normal LV size. Left ventricular systolic function is normal. The estimated ejection fraction is 55 %. Diastolic function is indeterminate. No regional wall motion abnormalities noted. Right Ventricle Normal RV size. Normal systolic function. Atria The left atrium is mildly enlarged. Normal right atrium. No doppler evidence for ASD. Mitral Valve There is moderate mitral annular calcification. Extension of the mitral annular calcification onto the posterior mitral valve leaflet. Mild (1+) mitral valve insufficiency. Tricuspid Valve Normal tricuspid valve. Trivial tricuspid valve insufficiency. Right ventricular systolic pressure estimated to be 33 mmHg. Aortic Valve Trisinus/trileaflet aortic valve. Mild focal aortic valve thickening. Trivial aortic valve insufficiency. Pulmonic Valve The pulmonic valve is not well visualized. Great Vessels The aortic root is not well visualized. Pericardium/Pleural No pericardial effusion. MMode/2D Measurements & Calculations LVIDd: 4.4 cm IVSd: 0.89 cm LA dimension: 3.4 cm LVIDs: 3.1 cm LVPWd: 0.91 cm FS: 29.9 % LAV(MOD-bp): 41.1 ml LVAd ap4: 24.9 cm2 SV(MOD-sp4): 41.6 ml LAV(MOD-bp) Indexed: 24.5 ml/m2 EDV(MOD-sp4): 73.3 ml LAV(MOD-sp2): 34.4 ml EDV(sp4-el): 75.8 ml LAV(MOD-sp4): 39.9 ml LVAs ap4: 14.3 cm2 ESV(MOD-sp4): 31.6 ml ESV(sp4-el): 32.7 ml EF(MOD-sp4): 56.8 % EF(sp4-el): 56.9 % SV(sp4-el): 43.1 ml LA A4 area: 16.8 cm2 RA A4 area: 12.0 cm2 Time Measurements MV dec time: 0.27 sec Doppler Measurements & Calculations MV E max ras: 58.9 cm/sec Lat Peak E' Ras: 5.6 cm/sec Med Peak E' Ras: 4.9 cm/sec MV A max ras: 87.7 cm/sec E/E' lat: 10.5 E/E' med: 12.0 MV E/A: 0.67 Ao V2 max: 134.5 cm/sec AI max ras: 385.3 cm/sec LV V1 max: 80.6 cm/sec Ao max P.2 mmHg AI max P.5 mmHg LV V1 max P.6 mmHg AI dec slope: 198.4 cm/sec2 AI P1/2t: 568.7 msec TR max ras: 271.2 cm/sec TR max P.5 mmHg Interpretation Summary The study was technically difficult. Left ventricular systolic function is normal. The estimated ejection fraction is 55 %. The left atrium is mildly enlarged. There is moderate mitral annular calcification. Extension of the mitral annular calcification onto the posterior mitral valve leaflet. Mild (1+) mitral valve insufficiency. Trivial tricuspid valve insufficiency. Mild focal aortic valve thickening. Trivial aortic valve insufficiency. Right ventricular systolic pressure estimated to be 33 mmHg. Diastolic function is indeterminate. Ordering Physician: Gilberto Rodrigues Performed By: Isabel Gardner, ROBBI, RVT
== END ==
PROVIDERS: Family Provider Internal Medicine; PCP Internal Medicine
DX: I25.10 Atherosclerotic heart disease of native coronary artery without angina pectoris (principal); I50.9 Heart failure, unspecified; Z95.5 Presence of coronary angioplasty implant and graft
CPT/HCPCS: 93306

== ENCOUNTER → 2018-02-18 12:58 | Outpatient (CLI) | payer MEDICAID, SELFPAY ==
[2018-02-12 11:30] VITALS: BMI 27.5
--- NOTE | 2018-02-20 14:45 | PFT ---
INTRODUCTION: The patient is a 72-year-old female that presents for pulmonary function testing secondary to a diagnosis of shortness of breath. Respiratory therapy reports good patient effort. Bronchodilators were used during testing. INTERPRETATION: Forced expiration spirometry demonstrates the presence of a severe large airways obstructive ventilatory defect. There was no significant response to aerosolized bronchodilators. Spirograms are of fair quality do not plateau indicating slow emptying of the lungs. Body plus tomography was performed which revealed an elevated RV to 154% of predicted, indicative of underlying air trapping. Diffusing capacity by single breath CO is severely reduced at 25% of predicted. 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
--- OUTSIDE RECORDS SUMMARY | 2018-05-22 23:07 | XMS RPT_ITS ---
:1945 Author Organization [place] Support Name Relationship Address Phone JAEL HOANG Unavailable [address] + [place] [address] R Unavailable Unavailable Unavailable NATALYA JAEL Unavailable [address] + [place] [address] R Unavailable Unavailable Unavailable NATALYA, JAEL Unavailable [address] + [place] [address] MOODY, YANELI Unavailable [address] + [place] [address] R Unavailable Unavailable Unavailable NATALYA, JAEL Unavailable [address] + [place] [address] MOODY, YANELI Unavailable Unavailable + [place] [address] R Unavailable Unavailable Unavailable NATALYA, JAEL Unavailable . + ., [place] . MOODY, YANELI Unavailable . + ., [place] . R Unavailable Unavailable Unavailable NATALYA, JAEL Unavailable Unavailable + MOODY, YANELI Unavailable Unavailable + R Unavailable Unavailable Unavailable NATALYA, JAEL Unavailable Unavailable + MOODY, YANELI Unavailable Unavailable + R Unavailable Unavailable Unavailable NATALYA, JAEL Unavailable . + ., [place] . MOODY, YANELI Unavailable . + ., [place] . R Unavailable Unavailable Unavailable NATALYA, JAEL Unavailable . + ., [place] . MOODY, YANELI Unavailable . + ., [place] . R Unavailable Unavailable Unavailable NATALYA, JAEL Unavailable Unavailable + MOODY, YANELI Unavailable Unavailable + R Unavailable Unavailable Unavailable NATALYA, JAEL Unavailable Unavailable + MOODY, YANELI Unavailable Unavailable + R Unavailable Unavailable Unavailable NATALYA, JAEL Unavailable Unavailable + MOODY, YANELI Unavailable Unavailable + R Unavailable Unavailable Unavailable NATALYA, JAEL Unavailable Unavailable + MOODY, YANELI Unavailable Unavailable + R Unavailable Unavailable Unavailable NATALYA, JAEL Unavailable Unavailable + MOODY, YANELI Unavailable Unavailable + R Unavailable Unavailable Unavailable NATALYA, JAEL Unavailable Unavailable + MOODY, YANELI Unavailable Unavailable + R Unavailable Unavailable Unavailable NATALYA, JAEL Unavailable Unavailable + MOODY, YANELI Unavailable Unavailable + R Unavailable Unavailable Unavailable NATALYA, JAEL Unavailable Unavailable + MOODY, YANELI Unavailable Unavailable + R Unavailable Unavailable Unavailable NATALYA, JAEL Unavailable . + ., [place] . MOODY, YANELI Unavailable . + ., [place] . R Unavailable Unavailable Unavailable NATALYA, JAEL Unavailable Unavailable + MOODY, YANELI Unavailable Unavailable + R Unavailable Unavailable Unavailable NATALYA, JAEL Unavailable Unavailable + MOODY, YANELI Unavailable Unavailable + R Unavailable Unavailable Unavailable MOODY, YANELI Unavailable NA + [place], [place] R Unavailable Unavailable Unavailable MOODY, YANELI Unavailable NA + [place], [place] R Unavailable Unavailable Unavailable MOODY, YANELI Unavailable NA + [place], [place] R Unavailable Unavailable Unavailable MOODY, YANELI Unavailable NA + [place], [place] R Unavailable Unavailable Unavailable NATALYA, JAEL Unavailable Unavailable + MOODY, YANELI Unavailable Unavailable + R Unavailable Unavailable Unavailable MOODY, YANELI Unavailable NA + [place], [place] R Unavailable Unavailable Unavailable Care Team Providers Name Role Phone Alonso Stark Attending Unavailable Ganta, Jodi Referring Unavailable Jose L, Melanie Attending Unavailable Domingo, Melanie Referring Unavailable Ganta, Jodi Primary Care Unavailable Marcos Golden D.O. Attending Unavailable Jose L, Melanie Referring Unavailable Domingo, Melanie Attending Unavailable Domingo, Melanie Referring Unavailable Ganta, Jodi Primary Care Unavailable Franco Breaux Attending Unavailable Jose L, Melanie Referring Unavailable Chilo Harrison Attending Unavailable Ganta, Jodi Primary Care Unavailable Ganta, Jodi Primary Care Unavailable Jossie, Lokesh Admitting Unavailable Li Nando Consulting Unavailable Koram, Sveta Cara Attending Unavailable Jossie, Lokesh Admitting Unavailable Ganta, Jodi Primary Care Unavailable Jossie, Lokesh Consulting Unavailable Mahi Jacobs Attending Unavailable Jossie, Lokesh Admitting Unavailable Nando Jefferson Attending Unavailable Ganta, Jodi Primary Care Unavailable Nando Jefferson Consulting Unavailable Bakari, Davide Consulting Unavailable Jossie, Lokesh Admitting Unavailable Nando Jefferson Attending Unavailable Ganta, Jodi Primary Care Unavailable Jefferson, Nando Consulting Unavailable Bakari, Davide Consulting Unavailable Jossie, Lokesh Admitting Unavailable Bakari, Davide Attending Unavailable Ganta, Jodi Primary Care Unavailable Jefferson Nando Consulting Unavailable Bakari, Davide Consulting Unavailable Jossie, Lokesh Admitting Unavailable Koram, Sveta Cara Attending Unavailable Ganta, Jodi Primary Care Unavailable Li Nando Consulting Unavailable Koram, Sveta Cara Consulting Unavailable Jossie, Lokesh Admitting Unavailable Koram, Sveta Cara Attending Unavailable Ganta, Jodi Primary Care Unavailable Jefferson Nando Consulting Unavailable Koram, Sveta Cara Consulting Unavailable Ganta, Jodi Primary Care Unavailable Markeri, Jackson Admitting Unavailable Franco Breaux Consulting Unavailable Bakari, Davide Attending Unavailable Jopperi, Jackson Admitting Unavailable Markeri, Jackson Attending Unavailable Ganta, Jodi Primary Care Unavailable Jopperi, Jackson Consulting Unavailable Jopperi, Jackson Admitting Unavailable Bakari, Davide Attending Unavailable Ganta, Jodi Primary Care Unavailable Franco Breaux Consulting Unavailable Bakari, Davide Consulting Unavailable Jopperi, Jackson Admitting Unavailable Bakari, Davide Attending Unavailable Ganta, Jodi Primary Care Unavailable Saeid, Franco Consulting Unavailable Bakari, Davide Consulting Unavailable Jopperi, Jackson Admitting Unavailable Bakari, Davide Attending Unavailable Ganta, Jodi Primary Care Unavailable Saeid, Franco Consulting Unavailable Bakari, Davide Consulting Unavailable Jopperi, Jackson Admitting Unavailable Bakari, Davide Attending Unavailable Ganta, Jodi Primary Care Unavailable Saeid, Franco Consulting Unavailable Bakari, Davide Consulting Unavailable Melanie Domingo Attending Unavailable Ganta, Jodi Referring Unavailable Moodispaalfred, Gilberto Attending Unavailable Ganta, Jodi Referring Unavailable Joseluis, Kev Attending Unavailable Koram, Sveta Cara Referring Unavailable LUIZ VILLAR Attending Unavailable LUIZ VILLAR Referring Unavailable Ganta, Jodi Primary Care Unavailable MoodisGilberto still Attending Unavailable LUIZ VILLAR Referring Unavailable Ganta, Jodi Primary Care Unavailable LUIZ VILLAR Consulting Unavailable JoseluisKev payne Attending Unavailable Bakari, Davide Referring Unavailable Saeid, Franco Attending Unavailable Jopperi, Jackson Referring Unavailable BLANK GOLDIE (PA) Attending Unavailable MOVENS BLUE (PA) Referring Unavailable GANTA, JODI Attending Unavailable GANTA, JODI Referring Unavailable BLANK, GOLDIE (PA) Referring Unavailable BLANK, GOLDIE (PA) Referring Unavailable BLANK, GOLDIE (PA) Attending Unavailable BLANK, GOLDIE (PA) Referring Unavailable AALIYAH BREWER (RIBBON LAP MACHINE TENDER) Attending Unavailable AALIYAH BREWER (RIBBON LAP MACHINE TENDER) Attending Unavailable Chance Tucker Attending Unavailable PROBLEMS PROBLEMS DATE TYPE CONDITION / CODE ATTENDING STATUS SOURCE Unknown R06.02 - Shortness of Franco Breaux Active [place] [facility] breath / Community R06.02(ICD-10) Hospital Repository Unknown I50.9 - Heart failure, [place], Active [place] [facility] unspecified / [facility] I50.9(ICD-10) Hospital Repository Unknown Z95.5 - Presence of [place], Active [facility] [facility] coronary angioplasty [facility] implant and graft / Hospital Z95.5(ICD-10) Repository Unknown R94.31 - Abnormal Joseluis, Kev Active [facility] electrocardiogram Community [ECG] [EKG] / Hospital R94.31(ICD-10) Repository Unknown I25.10 - Franco Breaux Active [place] 8 Atherosclerotic heart Community disease of [facility] coronary artery Repository without angina pectoris / I25.10(ICD-10) Unknown I21.4 - Non-ST SaeidFranco goldman Active [place] 8 elevation (NSTEMI) Community myocardial infarction Hospital / I21.4(ICD-10) Repository Unknown J96.21 - Acute and Franco Breaux Active [facility] chronic respiratory Community failure with hypoxia / Hospital J96.21(ICD-10) Repository Unknown J96.22 - Acute and SaeidFranco goldman Active [facility] chronic respiratory Community failure with Hospital hypercapnia / Repository J96.22(ICD-10) Unknown I50.23 - Acute on SaeidFranco golmdan Active [facility] chronic systolic Community (congestive) heart Hospital failure / Repository I50.23(ICD-10) Unknown F17.210 - Nicotine SaeidFranco goldman Active [facility] [place] [facility] dependence, Community cigarettes, Hospital uncomplicated / Repository F17.210(ICD-10) Unknown Z99.81 - Dependence on SaeidFranco goldman Active [facility] supplemental oxygen / Community Z99.81(ICD-10) Hospital Repository Unknown I10 - Essential SaeidFranco goldman Active [facility] (primary) hypertension Community / I10(ICD-10) Hospital Repository Unknown E78.5 - SaeidFranco goldman Active [facility] [place] [facility] Hyperlipidemia, Community unspecified / Hospital E78.5(ICD-10) Repository Unknown I11.0 - Hypertensive Joseluis, Kev Active [place] 8 heart disease with Community heart failure / Hospital I11.0(ICD-10) Repository Active Hypoxemia / NA Active [facility] R09.02(ICD-10) [facility] [place] Repository Active Chronic obstructive NA Active [facility] pulmonary disease, Clinic Main unspecified / [place] J44.9(ICD-10) Repository Admitting Unknown / UNK(Unknown) Chance Tucker Active [facility] 8 diagnosis [facility] [place] Repository Active Unknown / UNK(Unknown) BLANK, Active [place] [address] GOLDIE (ALLY) [facility] Main [place] Repository PROCEDURES PROCEDURES No Procedure Records FoundRESULTS RESULTS 6 MINUTE WALK TEST Observed: 03/15/2018 Status: F Source: [place] 5:51 AM [facility] REPOSITORY [facility] Pulmonary Services/Neurology [address] [place] [address] MR#: [id number] Acct: [id number] Name: HEATHER MEYERS Rep #: [id number] : 1945 73 From: Franco Breaux MD Referring Dr: Melanie Domingo NP Date: Ordering Dr: Sex: F C Location: PSN PSN 6 Minute Walk Test - 6 Minute Walk Test 6 Minute Walk Test: 6 Minute Walk Test PSN:6-Minute Walk Test Start: 03/14/18 12:13 Freq: Status: Active Protocol: RESP.6MINW Document 03/14/18 12:55 [facility] (Rec: 03/14/18 13:03 [facility] [id number]) 6 Minute Walk Test Date Performed 03/14/18 Time Performed 12:15 Height 5 ft 2.5 in Weight: 70.76 kg Weight in Pounds 156.[address]: Melanie Domingo Assistive device used: Walker 1st minute Oxygen Delivery Method Room Air Pulse Ox (%) 87 Pulse Rate (60-100 beats/min) 89 Dyspnea Gabriela Scale (0-10) 5 Number of Rests Taken 1 Reported Symptoms Increased Work of Breathing 2nd minute Oxygen Flow Rate (L/min) (L/min) 2 Oxygen Delivery Method Nasal Cannula Pulse Ox (%) 90 Pulse Rate (60-100 beats/min) 87 Dyspnea Gabriela Scale (0-10) 5 Number of Rests Taken 1 Reported Symptoms Increased Work of Breathing 3rd minute Oxygen Flow Rate (L/min) (L/min) 2 Oxygen Delivery Method Nasal Cannula Pulse Ox (%) 89 Pulse Rate (60-100 beats/min) 89 Dyspnea Gabriela Scale (0-10) 5 Number of Rests Taken 1 Reported Symptoms Increased Work of Breathing 4th minute Oxygen Flow Rate (L/min) (L/min) 2 Oxygen Delivery Method Nasal Cannula Pulse Ox (%) 89 Pulse Rate (60-100 beats/min) 94 Dyspnea Gabriela Scale (0-10) 5 Number of Rests Taken 1 Reported Symptoms Increased Work of Breathing 5th minute Oxygen Flow Rate (L/min) (L/min) 2 Oxygen Delivery Method Nasal Cannula Pulse Ox (%) 90 Pulse Rate (60-100 beats/min) 87 Dyspnea Gabriela Scale (0-10) 5 Number of Rests Taken 1 Reported Symptoms Increased Work of Breathing 6th minute Oxygen Flow Rate (L/min) (L/min) 3 Oxygen Delivery Method Nasal Cannula Pulse Ox (%) 87 Pulse Rate (60-100 beats/min) 90 Dyspnea Gabriela Scale (0-10) 5 Number of Rests Taken 1 Reported Symptoms Increased Work of Breathing Post-test Oxygen Flow Rate (L/min) (L/min) 3 Oxygen Delivery Method Nasal Cannula Pulse Ox (%) 96 Pulse Rate (60-100 beats/min) 76 Dyspnea Gabriela Scale (0-10) 4 Reported Symptoms Increased Work of Breathing Full Laps Walked 5 Partial Lap, Number of Tiles Walked 45 Total Distance Walked (ft) 340 03/14/18 12:59 Cardiopulmonary Services by Christy Condon Patient arrived on own oxygen at 3lpm. Placed on room air prior to beginning test. SOB and hip pain were pt symptoms t/o testing for which she rested each minute. At 1 min, 2lpm applied for spo2 87%. She remained on 2lpm until spo2 dropped to 87% just before 6min cheryl. Increased to 3lpm and walked back to room with spo2 at 90%. Initialized on 03/14/18 12:59 - END OF NOTE - Interpretation Interpretation: The patient was noted to be 91% on room air. The patient then desaturated to 87% in the first minute and was placed on 2 L nasal cannula with improvement in saturations to 92%. The patient required a total of 3 L nasal cannula to maintain appropriate saturations throughout ambulation. In total, patient traveled only 340 feet over the course of 6 minutes with the assistance of a pushed wheelchair, but required 6 breaks secondary to shortness of breath and hip pain. These findings are consistent with a respiratory and musculoskeletal limitation exercise tolerance. - Recommendations Recommendations: The patient requires no supplemental oxygen at rest, but should be using 3 L/min with any exertion. 03/15/18 0551 <Electronically signed by Franco Breaux MD> Date Franco Breaux MD CC: Date Dictated: 03/14/180 Date Transcribed: 03/14/181439 Superintendent Electric Power: Franco Breaux MD Signed PULMONARY VISIT REPORT Observed: 03/07/2018 Status: F Source: [place] 7:01 AM [facility] REPOSITORY [facility] [place] [address] [place] [address] OFFICE VISIT Date of Service: 04/02/18 MR#: [id number] Acct: [id number] Name: HEATHER MEYERS Rep #: [id number] : 1945 Provider: Franco Breaux MD Age/Sex: 72/F Location: [place].[facility] Status: Signed Assessment AND Plan Medications Discontinued: isosorbide mononitrate ER Discontinued Reason: Order [id number] mg PO QDAY 90 tabs 3RF d - Discontinuing original order HPI 3 M FU: Details: Testing personally reviewed with the patient Complete PFT (02/18/2018): Irreversible severe large airways obstructive ventilatory defect resulting in air trapping and a symmetric reduction diffusing capacity (FVC 71%, FEV1 45%, TLC 105%, RV 154%, DLCO 25%) Intake Intake Visit Reasons: 3 M FU Allergies codeine Allergy (Unknown, Verified 02/12/18 11:36) Unknown lithium Allergy (Unknown, Verified 02/12/18 11:36) Unknown morphine Allergy (Unknown, Verified 02/12/18 11:36) Unknown naproxen [From Naprosyn] Allergy (Unknown, Verified 02/12/18 11:36) Unknown phenobarbital Allergy (Unknown, Verified 02/12/18 11:36) Unknown Sulfa (Sulfonamide Antibiotics) Allergy (Unknown, Verified 02/12/18 11:36) Unknown albuterol Allergy (Verified 02/12/18 11:36) Rash fentanyl Adverse Reaction (Severe, Verified 02/12/18 11:36) Other Iodine and Iodide Containing Produc Adverse Reaction (Verified 02/12/18 11:36) Unknown Penicillins [PCN] Adverse Reaction (Verified 02/12/18 11:36) Unknown Medications Amlodipine [Norvasc] 5 mg PO DAILY 07/13/14 [History Confirmed 02/12/18] Atorvastatin Calcium [Lipitor] 80 mg PO QHS 07/13/14 [History Confirmed 02/12/18] Cyclobenzaprine [Flexeril] 10 mg PO DAILY 07/13/14 [History Confirmed 02/12/18] Fenofibrate [Tricor] 145 mg PO DAILY 07/13/14 [History Confirmed 02/12/18] Gabapentin [Neurontin] 300 mg PO BIDCM 07/13/14 [History Confirmed 02/12/18] Fluticasone/Vilanterol [Breo Ellipta 200-25 Mcg INH] 1 ea IH DAILY 12/17/16 [History Confirmed 02/12/18] Paroxetine HCl [Paxil] 40 mg PO DAILY 12/17/16 [History Confirmed 02/12/18] diphenhydramine 25 mg tablet 25 mg PO Q6H PRN 03/20/17 [History Confirmed 02/12/18] nitroglycerin 0.4 mg sublingual tablet 0.4 mg SUBLINGUAL Q5M PRN #25 tab 03/25/17 [Rx Confirmed 02/12/18] ranolazine ER 500 mg tablet,extended release,12 hr 500 mg PO BID #180 tab 03/25/17 [Rx Confirmed 02/12/18] losartan 50 mg tablet 50 mg PO DAILY #90 tab 10/17/17 [Rx Confirmed 02/12/18] clopidogrel 75 mg tablet 75 mg PO DAILY #90 tab 10/23/17 [Rx Confirmed 02/12/18] Carvedilol [Coreg (Beta Tata)] 3.125 mg PO BID #60 tab 11/12/17 [Rx Confirmed 02/12/18] Cholecalciferol (Vitamin D3) [Vitamin D3] 50,000 unit PO QWEEK 11/23/17 [History Confirmed 02/12/18] Levalbuterol HCl 0.63 mg INHALATION 4X/DAY PRN 11/23/17 [History Confirmed 02/12/18] Pantoprazole Sodium [Protonix] 20 mg PO DAILY 11/23/17 [History Confirmed 02/12/18] buPROPion SR [Wellbutrin SR (150mg tablets)] 150 mg PO DAILY 11/23/17 [History Confirmed 02/12/18] busPIRone [Buspar] 15 mg PO DAILY 11/23/17 [History Confirmed 02/12/18] tiotropium bromide 2.5 mcg/actuation mist for inhalation 2 puff INHALATION QDAY #1 ea 12/10/17 [Rx Confirmed 02/12/18] isosorbide mononitrate ER 60 mg tablet,extended release 24 hr 90 mg PO DAILY tab 12/11/17 [History Confirmed 02/12/18] potassium chloride ER 20 mEq tablet,extended release(part/cryst) 40 meq PO BIDCM #120 tab 01/02/18 [Rx Confirmed 02/12/18] albuterol sulfate HFA 90 mcg/actuation aerosol inhaler 2 puff INHALATION Q6H PRN #18 g 01/29/18 [Rx Confirmed 02/12/18] aspirin 325 mg tablet 325 mg PO DAILY 02/12/18 [History Confirmed 02/12/18] PFS Medical History Presence of stent in coronary artery (Chronic) Acute respiratory failure with hypoxia and hypercapnia (Acute) COPD with acute exacerbation (Acute) Gram-negative pneumonia (Acute) Acute hypercapnic respiratory failure (Acute) NSTEMI (non-ST elevated myocardial infarction) (Acute) COPD exacerbation (Acute) CAD (coronary artery disease) (Chronic) Tobacco abuse (Chronic) Congestive heart failure (Acute) Nonrheumatic tricuspid (valve) insufficiency (Chronic) Nonrheumatic mitral valve insufficiency (Chronic) Nicotine dependence, cigarettes, uncomplicated (Chronic) Hypertension (Chronic) Hyperlipidemia (Chronic) Atherosclerosis of [place] coronary artery of [place] heart without angina pectoris (Chronic) Peripheral vascular disease (Chronic) SOB (shortness of breath) (Chronic) Anemia (Chronic) COPD (chronic obstructive pulmonary disease) (Chronic) Diabetes mellitus (Chronic) Fibromyalgia (Chronic) GERD (gastroesophageal reflux disease) (Chronic) Hyperlipidemia (Chronic) MARISABEL (obstructive sleep apnea) (Chronic) Surgical History H/O tubal ligation (Chronic) History of left heart catheterization (Chronic) Hx of appendectomy (Chronic) S/P femoral-femoral bypass surgery (Chronic) Family History Mother CAD (coronary artery disease) Hypertension Sister CAD (coronary artery disease) Myocardial infarction Social History Smoking Status: Current every day smoker alcohol intake: never substance use type: does not use caffeine: Yes Type: coffee what type of physical activity do you participate in: none seatbelt use: always do you feel safe at home: Yes Review of Systems Const CONSTITUTIONAL: Negative anorexia, body ache, chills, daytime sleepiness, fever(s), night sweats, oral thrush, stops breathing during sleep, weight loss, sleeping in chair, fatigue, weight loss, weight gain, frequent colds, seasonal allergies, other, headache(s) or orthopnea EETM Ear Nose Throat Mouth: Positive hearing normal; negative hard of hearing, hoarseness, dry mouth in morning, change in vision, itchy eyes, eye pain, swallowing Difficulty, ear pain, nose bleed, headache(s), mouth pain, nasal congestion, nasal discharge, post nasal drip, sinus pain, sinus pressure, sore throat or other Cardio Cardiovascular: Negative chest pain, chest pain at rest, chest pain with activity, irregular heart rhythm, edema, shortness of breath when lying down, palpitations, murmur or other Resp Respiratory: Positive as per HPI; negative shortness of breath, pain with cough, wheezing, chest congestion, cough, chest tightness, pain on inspiration, inhalers, increase use of rescue inhalers, snoring, apnea or other Gastro Gastrointestional: Negative bloody stools, change in appetite, difficulty swallowing, reflux, hematemesis, melena stool, loose stool, constipation or other Genitourinary: Negative blood in urine, nocturia, pain with urination or other Musc Musculoskeletal: Negative body pain, back pain, neck pain or other Skin/Breast Skin/Breast: Negative dry skin, itching, rash, unusual bruising, breast lump or other Neuro Neurological: Negative restless legs, confusion, weakness or other Psych Psychocological: Negative abnormal sleep pattern, anxiety, thoughts of hurting self/others, hopelessness or other Lymph Lymphatic: Negative easy bleeding, easy bruising, swollen lymph nodes or other Exam Ears Ear: Positive hearing normal; negative hard of hearing Nose Nose: Negative epistaxis Mouth Mouth: Negative post nasal drip Cardio Cardiac: Negative murmur Skin Pulmonary Skin Exam: Negative rash Lymph Lymphatic: No lymphadenopathy 03/07/18 0701 <Electronically signed by Franco Breaux MD> Date Franco Breaux MD Cosigner Signature: Date (if applicable) CC: PULMONARY FUNCTION Observed: 02/20/2018 Status: F Source: [place] TEST 2:47 PM [facility] REPOSITORY [facility] Pulmonary Services/Neurology [address] [place] [address] MR#: [id number] Acct: [id number] Name: HEATHER MEYERS Rep #: [id number] : 1945 72 From: Marcos Golden DO Referring Dr: Melanie Domingo NP Status: REG CLI Ordering Dr: Date: Location: [facility] Sex: F C INTRODUCTION: The patient is a 72-year-old female that presents for pulmonary function testing secondary to a diagnosis of shortness of breath. Respiratory therapy reports good patient effort. Bronchodilators were used during testing. INTERPRETATION: Forced expiration spirometry demonstrates the presence of a severe large airways obstructive ventilatory defect. There was no significant response to aerosolized bronchodilators. Spirograms are of fair quality do not plateau indicating slow emptying of the lungs. Body plus tomography was performed which revealed an elevated RV to 154% of predicted, indicative of underlying air trapping. Diffusing capacity by single breath CO is severely reduced at 25% of predicted. 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 02/20/18 1447 <Electronically signed by Marcos Golden DO> Date Marcos Golden DO CC: Jodi Butler MD; Melanie Domingo Date Dictated: 02/20/181444 Date Transcribed: 02/20/181444 Superintendent Electric Power: KANCHAN Signed CARDIOLOGY VISIT Observed: 02/13/2018 Status: F Source: [place] REPORT 6:57 AM [facility] REPOSITORY [facility] [address] [place] [address] OFFICE VISIT Date of Service: 02/12/18 MR#: [id number] Acct: [id number] Name: HEATHER MEYERS Rep #: [id number] : 1945 Provider: CHANI Stark Age/Sex: 72/F Location: [facility] Status: Signed HPI HPI Chief Complaint: SOB Details: HEATHER MEYERS, is a 72 F who presents to the office today for a cardiovascular outpatient follow-up. She has a history of coronary artery disease status post left main stenting in 2014 and PTCA/SUSAN to mid/distal RCA and proximal RCA in November 2017, chronic systolic congestive heart failure, hypertension, and hyperlipidemia. She wears oxygen chronically. She continues to smoke, but decreasing. Pt. denies chest, jaw, or neck discomfort. Her exercise tolerance is stable. Pt. denies symptoms of CHF, palpitations, near syncope, or syncopal episodes. Pt. denies edema or claudication issues. Pt. denies fever, chills, blood in urine, blood in stool, myalgia, or unexplainable fatigue. She states feeling lightheadedness and dizziness with position change. She states orthopnea and PND at times. 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 Accompanied by: Grandson Is patient in pain?: No Allergies codeine Allergy (Unknown, Verified 02/12/18 11:36) Unknown lithium Allergy (Unknown, Verified 02/12/18 11:36) Unknown morphine Allergy (Unknown, Verified 02/12/18 11:36) Unknown naproxen [From Naprosyn] Allergy (Unknown, Verified 02/12/18 11:36) Unknown phenobarbital Allergy (Unknown, Verified 02/12/18 11:36) Unknown Sulfa (Sulfonamide Antibiotics) Allergy (Unknown, Verified 02/12/18 11:36) Unknown albuterol Allergy (Verified 02/12/18 11:36) Rash fentanyl Adverse Reaction (Severe, Verified 02/12/18 11:36) Other Iodine and Iodide Containing Produc Adverse Reaction (Verified 02/12/18 11:36) Unknown Penicillins [PCN] Adverse Reaction (Verified 02/12/18 11:36) Unknown Medications Amlodipine [Norvasc] 5 mg PO DAILY 07/13/14 [History Confirmed 02/12/18] Atorvastatin Calcium [Lipitor] 80 mg PO QHS 07/13/14 [History Confirmed 02/12/18] Cyclobenzaprine [Flexeril] 10 mg PO DAILY 07/13/14 [History Confirmed 02/12/18] Fenofibrate [Tricor] 145 mg PO DAILY 07/13/14 [History Confirmed 02/12/18] Gabapentin [Neurontin] 300 mg PO BIDCM 07/13/14 [History Confirmed 02/12/18] Fluticasone/Vilanterol [Breo Ellipta 200-25 Mcg INH] 1 ea IH DAILY 12/17/16 [History Confirmed 02/12/18] Paroxetine HCl [Paxil] 40 mg PO DAILY 12/17/16 [History Confirmed 02/12/18] diphenhydramine 25 mg tablet 25 mg PO Q6H PRN 03/20/17 [History Confirmed 02/12/18] nitroglycerin 0.4 mg sublingual tablet 0.4 mg SUBLINGUAL Q5M PRN #25 tab 03/25/17 [Rx Confirmed 02/12/18] ranolazine ER 500 mg tablet,extended release,12 hr 500 mg PO BID #180 tab 03/25/17 [Rx Confirmed 02/12/18] losartan 50 mg tablet 50 mg PO DAILY #90 tab 10/17/17 [Rx Confirmed 02/12/18] clopidogrel 75 mg tablet 75 mg PO DAILY #90 tab 10/23/17 [Rx Confirmed 02/12/18] Carvedilol [Coreg (Beta Tata)] 3.125 mg PO BID #60 tab 11/12/17 [Rx Confirmed 02/12/18] Cholecalciferol (Vitamin D3) [Vitamin D3] 50,000 unit PO QWEEK 11/23/17 [History Confirmed 02/12/18] Levalbuterol HCl 0.63 mg INHALATION 4X/DAY PRN 11/23/17 [History Confirmed 02/12/18] Pantoprazole Sodium [Protonix] 20 mg PO DAILY 11/23/17 [History Confirmed 02/12/18] buPROPion SR [Wellbutrin SR (150mg tablets)] 150 mg PO DAILY 11/23/17 [History Confirmed 02/12/18] busPIRone [Buspar] 15 mg PO DAILY 11/23/17 [History Confirmed 02/12/18] tiotropium bromide 2.5 mcg/actuation mist for inhalation 2 puff INHALATION QDAY #1 ea 12/10/17 [Rx Confirmed 02/12/18] isosorbide mononitrate ER 60 mg tablet,extended release 24 hr 90 mg PO DAILY tab 12/11/17 [History Confirmed 02/12/18] potassium chloride ER 20 mEq tablet,extended release(part/cryst) 40 meq PO BIDCM #120 tab 01/02/18 [Rx Confirmed 02/12/18] albuterol sulfate HFA 90 mcg/actuation aerosol inhaler 2 puff INHALATION Q6H PRN #18 g 01/29/18 [Rx Confirmed 02/12/18] aspirin 325 mg tablet 325 mg PO DAILY 02/12/18 [History Confirmed 02/12/18] Ejection fraction %: 55 to 59 PFSH Medical History Presence of stent in coronary artery (Chronic) Acute respiratory failure with hypoxia and hypercapnia (Acute) COPD with acute exacerbation (Acute) Gram-negative pneumonia (Acute) Acute hypercapnic respiratory failure (Acute) NSTEMI (non-ST elevated myocardial infarction) (Acute) COPD exacerbation (Acute) CAD (coronary artery disease) (Chronic) Tobacco abuse (Chronic) Congestive heart failure (Acute) Nonrheumatic tricuspid (valve) insufficiency (Chronic) Nonrheumatic mitral valve insufficiency (Chronic) Nicotine dependence, cigarettes, uncomplicated (Chronic) Hypertension (Chronic) Hyperlipidemia (Chronic) Atherosclerosis of [place] coronary artery of [place] heart without angina pectoris (Chronic) Peripheral vascular disease (Chronic) SOB (shortness of breath) (Chronic) Anemia (Chronic) COPD (chronic obstructive pulmonary disease) (Chronic) Diabetes mellitus (Chronic) Fibromyalgia (Chronic) GERD (gastroesophageal reflux disease) (Chronic) Hyperlipidemia (Chronic) MARISABEL (obstructive sleep apnea) (Chronic) Surgical History H/O tubal ligation (Chronic) History of left heart catheterization (Chronic) Hx of appendectomy (Chronic) S/P femoral-femoral bypass surgery (Chronic) Family History Mother CAD (coronary artery disease) Hypertension Sister CAD (coronary artery disease) Myocardial infarction Social History Smoking Status: Current every day smoker alcohol intake: never substance use type: does not use caffeine: Yes Type: coffee what type of physical activity do you participate in: none seatbelt use: always do you feel safe at home: Yes ROS Const Const: Negative for fatigue, weakness, body ache, fever(s) or chills ENT ENT: Positive for dizziness Cardio Chest Pain: No Palpitations: No Edema: None Muscle aches with walking: None Resp Respiratory: Negative for SOB with activity, SOB at rest, SOB orthopnea\SOB lying down or paroxysmal nocturnal dyspnea GI GI: Negative nausea, black,tarry stools, bright, red blood in stools or vomiting blood/hematemesis : Negative for hematuria or frequent nighttime urination/ nocturia Musc Musc: Negative for muscle aches/ myalgia Skin Skin: Negative non-healing lesions or rash Neuro Neuro: Positive for dizziness and lightheadedness; negative for weakness, near syncope, syncope or orthostatic symptoms Endo Endo: Negative for fatigue Allergy Allergy/Immunology: Negative for rash Cardiology Exam Const Appearance: cooperative, healthy appearing, comfortable, no acute distress, well developed, well groomed and other (wearing O2 NC) Nutritional Appearance: well nourished and overweight Head Head: normal to inspection, normocephalic and atraumatic Ears: hearing grossly normal bilaterally Nose: external nose normal Face and Sinus: face symmetric Mouth: oral mucosae normal Eyes Eyelids: eyelids normal Conjunctivae: conjunctivae normal Pupils: PERRL EOM: EOM intact bilaterally Neck Neck: normal visual inspection and full ROM Carotids: normal carotid upstroke Chest Chest inspection: symmetric chest movement, normal inspection of the chest and normal respiratory effort Auscultation: Bilateral: Diminished Lung Sounds, Rhonchi Cardio Palpation: normal PMI Rate: regular rate Rhythm: regular rhythm Heart sounds: S1 normal and S2 normal GI GI: normal to inspection Neuro General: alert, awake, oriented x3 and moves all extremities Skin Skin: no rashes or lesions noted Extremities Pulses: Normal: Right Radial Pulse, Left Radial Pulse Lower Extremity Edema: None: Bilateral Psych Psychological: normal affect Assessment AND Plan 1. Atherosclerosis of [place] coronary artery of [place] heart without angina pectoris I25.10 PTCA/SUSAN to ostium of LMT 10/01/2014 @[facility]; PTCA/SUSAN to mid/distal RCA and proximal RCA in November [address] [facility]; Plan Overall she states feeling well. Patient denies any chest pain, arm pain, jaw pain, neck pain, shortness of breath, or fatigue suggestive of angina at this time. We will continue to monitor this. We will not make any medication regimen changes and will continue risk factor modification. 2. Essential hypertension I10 Plan Patient's blood pressure is well-controlled today in the office. We will continue to monitor this. We will not make any medication regimen changes. 3. Pure hypercholesterolemia E78.00 Plan She will continue with current cholesterol-lowering medications. 4. Nicotine dependence, cigarettes, uncomplicated F17.210 Plan Patient continues to smoke. She received extensive education regarding the health benefits of smoking cessation. We will continue to support and encourage smoking cessation. Plan Detail Additional Comments Thank you for allowing us to participate in the patient's plan of care, if you have any questions please do not hesitate to call. This note was generated using a voice recognition system and there may be incorrect words, spelling, or punctuation that were not noted upon reviewing the office note prior to saving. 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) 12 Months (PFM) Coding Level of Care Code Off vis,est,level 3 Diagnoses Atherosclerosis of [place] coronary artery of [place] heart without angina pectoris I25.10 Essential hypertension I10 Hypertension type: essential hypertension Pure hypercholesterolemia E78.00 Hyperlipidemia type: pure hypercholesterolemia Nicotine dependence, cigarettes, uncomplicated F17.210 Coding Level of Care Code Off vis,est,level 3 Diagnoses Atherosclerosis of [place] coronary artery of [place] heart without angina pectoris I25.10 Essential hypertension I10 Hypertension type: essential hypertension Pure hypercholesterolemia E78.00 Hyperlipidemia type: pure hypercholesterolemia Nicotine dependence, cigarettes, uncomplicated F17.210 02/13/18 0657 <Electronically signed by Alonso DAVID> Date Alonso Viera [facility] DRYING MACHINE OPERATOR-Stormy Fitzpatrick Signature: Date (if applicable) CC: Jodi Butler MD ECHOCARDIOGRAM COMPLETE Observed: 12/17/2017 Status: F Source: [place] 5:39 PM [facility] REPOSITORY [facility] Cardiovascular Services [address] [place] [address] Echo Complete 12/17/17 1504 MR#: [id number] Acct: [id number] Name: HEATHER MEYERS Rep #: [id number] : 1945 72 From: Gilberto Rodrigues MD Attending Dr: Gilberto Rodrigues Status: REG CLI Ordering Dr: Gilberto Rodrigues MD Date: 12/17/17 Location: CVS Sex: F C Admitted: Reason For Study: CHF Procedure This was a 2D Doppler, Color Flow transthoracic echocardiogram. The study was technically difficult. Exam performed in department. Left Ventricle Normal LV size. Left ventricular systolic function is normal. The estimated ejection fraction is 55 %. Diastolic function is indeterminate. No regional wall motion abnormalities noted. Right Ventricle Normal RV size. Normal systolic function. Atria The left atrium is mildly enlarged. Normal right atrium. No doppler evidence for ASD. Mitral Valve There is moderate mitral annular calcification. Extension of the mitral annular calcification onto the posterior mitral valve leaflet. Mild (1+) mitral valve insufficiency. Tricuspid Valve Normal tricuspid valve. Trivial tricuspid valve insufficiency. Right ventricular systolic pressure estimated to be 33 mmHg. Aortic Valve Trisinus/trileaflet aortic valve. Mild focal aortic valve thickening. Trivial aortic valve insufficiency. Pulmonic Valve The pulmonic valve is not well visualized. Great Vessels The aortic root is not well visualized. Pericardium/Pleural No pericardial effusion. MMode/2D Measurements AND Calculations LVIDd: 4.4 cm IVSd: 0.89 cm LA dimension: 3.4 cm LVIDs: 3.1 cm LVPWd: 0.91 cm FS: 29.9 % LAV(MOD-bp): 41.1 ml LVAd ap4: 24.9 cm2 SV(MOD-sp4): 41.6 ml LAV(MOD-bp) Indexed: 24.5 ml/m2 EDV(MOD-sp4): 73.3 ml LAV(MOD-sp2): 34.4 ml EDV(sp4-el): 75.8 ml LAV(MOD-sp4): 39.9 ml LVAs ap4: 14.3 cm2 ESV(MOD-sp4): 31.6 ml ESV(sp4-el): 32.7 ml EF(MOD-sp4): 56.8 % EF(sp4-el): 56.9 % SV(sp4-el): 43.1 ml LA A4 area: 16.8 cm2 RA A4 area: 12.0 cm2 Time Measurements MV dec time: 0.27 sec Doppler Measurements AND Calculations MV E max mao: 58.9 cm/sec Lat Peak E' Mao: 5.6 cm/sec Med Peak E' Mao: 4.9 cm/sec MV A max mao: 87.7 cm/sec E/E' lat: 10.5 E/E' med: 12.0 MV E/A: 0.67 Ao V2 max: 134.5 cm/sec AI max mao: 385.3 cm/sec LV V1 max: 80.6 cm/sec Ao max P.2 mmHg AI max P.5 mmHg LV V1 max P.6 mmHg AI dec slope: 198.4 cm/sec2 AI P1/2t: 568.7 msec TR max mao: 271.2 cm/sec TR max P.5 mmHg Interpretation Summary The study was technically difficult. Left ventricular systolic function is normal. The estimated ejection fraction is 55 %. The left atrium is mildly enlarged. There is moderate mitral annular calcification. Extension of the mitral annular calcification onto the posterior mitral valve leaflet. Mild (1+) mitral valve insufficiency. Trivial tricuspid valve insufficiency. Mild focal aortic valve thickening. Trivial aortic valve insufficiency. Right ventricular systolic pressure estimated to be 33 mmHg. Diastolic function is indeterminate. Ordering Physician: Gilberto Rodrigues Performed By: Isabel Gardner, GIACOMOCS, RVT 12/17/17 1738 Date Gilberto Rodrigues MD CC: Jodi Butler MD; OUT OF TOWN DOCTOR; Gilberto Rodrigues MD Date Dictated: 12/17/17 1504 Date Transcribed: 12/17/171737 Superintendent [employer]: Signed PROGRESS Observed: 12/13/2017 Status: COMPLETED Source: [place] 2:41 PM [facility] REPOSITORY HNO ID: [id number] Author: Aaliyah Brewer Service: (none) Author Type: Nurse Practitioner Type: Progress Notes Filed: 12/13/2017 5:27 PM Note Text: CC/HPI: In follow-up of hospitalization, Heather Meyers is a 72 year old female with the chief complaint of SOB with hx of COPD and current smoker. Patient was lethargic and initially put on BiPAP and eventually required intubation while still in the ER. CXR showed bilateral lung base infiltrates as well as chronic changes of COPD and fibrotic interstitial markings. Concerned for pneumonia patient was started on IV antibiotics. Patient admitted from 11/23 to 11/27/17. She was given Ceftriaxone IV and transitioned PO Levaquin at discharge for a total of 8 days of antibiotics. Since returning home patient is back to baseline, however she indicates today was rough d/t weather changes. She continues to have chronic non-productive cough, SOB on exertion with continuous home O2 at 3L sometimes 4L with ambulation. Using her inhalers as prescribed and in need of refills. Energy is okay. Appetite is too good per patient. Denies any fever, chills,chest pains or wheezing. Followed up with - cardiology yesterday. Echo scheduled with follow up. Upcoming pulmonology appointment with PFTs. I have reviewed the patient?s last hospital course including diagnostic testing performed during this hospitalization, their discharge medications, and my assessment and plan with the patient and any family members present at today?s visit. PAST MEDICAL HISTORY: Reviewed and updated ALLERGIES: Reviewed and updated MEDICATIONS: Reviewed and updated SOCIAL HISTORY: Reviewed and updated FAMILY HISTORY: Reviewed and updated REVIEW OF SYSTEMS GENERAL: No weight loss, malaise or fevers HEENT: Negative for frequent or significant headaches, No changes in hearing or vision, no nose bleeds or other nasal problems RESPIRATORY: See HPI CARDIOVASCULAR: Negative for chest pain, leg swelling, or palpitations GI: No nausea, vomiting, or diarrhea : No history of dysuria, frequency or incontinence NEURO: No history of headaches, syncope, paralysis, seizures or tremors All other systems reviewed and negative, other than HPI. PHYSICAL EXAMINATION BP 128/70 Pulse 80 Temp 98.8 Resp 28 Wt 147 lb (66.7kg) SpO2 96% General appearance: alert, in no acute distress and well-hydrated, well nourished, motor and sensory appear to be normal Lungs: Positive findings: wheezing , no wheezing or rhonchi Heart: RRR without murmur, gallop, or rubs. No ectopy Abdomen: Normal abdominal exam, Abdomen soft, non-tender. Bowel sounds normal. No masses, organomegaly Extremities: Extremities normal. No deformities, edema, or skin discoloration. Good capillary refill. 1. I have reviewed the patient record including associated test results during the last hospitalization Yes 2. I have reviewed Lab test Yes 3. I have reviewed Radiology test Yes 4. I reviewed assessment/plan with the patient/family member Yes ASSESSMENT/PLAN: 1. Hospital discharge follow-up - ICD9: V67.59, ICD10: Z09 (primary diagnosis) - Condition improved, back to baseline - Continue current medications - Follow up with Pulmonology as scheduled 2. End stage COPD (HCC) - ICD9: 496, ICD10: J44.9 - Stable with recent exacerbation - Follow up with pulmonology and PFTs as planned - Continue current mediations and home O2 - Routine follow up in 3 months 3. IFG (impaired fasting glucose) - ICD9: 790.21, ICD10: R73.01 - Noted from hospital admission - HGB A1C - ALBUMIN/CREAT RATIO RND UR 4. Tobacco use disorder - ICD9: 305.1, ICD10: F17.200 - Cessation encouraged. - Physiologic and physical aspects of tobacco addiction as well as strategies for quitting were discussed. - Counseling was given focusing on the harmful effects of this addiction especially given the patient's medical condition(s) which will be worsened because of the chemicals in tobacco. - Counseling was given 3-4 minutes. Aaliyah Brewer APRN.SILVA December 13, 2017 2:41 PM CNOV Observed: 12/13/2017 Status: COMPLETED Source: [place] 2:40 PM [facility] REPOSITORY Office Visit (INTMWS) HEATHER MEYERS ([id number]) 1945 F Date Time Provider Department 12/13/17 2:40 PM AALIYAH BREWER (SILVA) INTMWS During your visit today, we recorded the following information about you: Temperature Pulse Respiration Blood pressure 98.8 degrees 80/minute 28/minute 128/70 Weight 66.7 kg Aaliyah Brewer APRN.CNP 12/13/2017 5:27 PM Signed CC/HPI: In follow-up of hospitalization, Heather Meyers is a 72 year old female with the chief complaint of SOB with hx of COPD and current smoker. Patient was lethargic and initially put on BiPAP and eventually required intubation while still in the ER. CXR showed bilateral lung base infiltrates as well as chronic changes of COPD and fibrotic interstitial markings. Concerned for pneumonia patient was started on IV antibiotics. Patient admitted from 11/23 to 11/27/17. She was given Ceftriaxone IV and transitioned PO Levaquin at discharge for a total of 8 days of antibiotics. Since returning home patient is back to baseline, however she indicates today was rough d/t weather changes. She continues to have chronic non-productive cough, SOB on exertion with continuous home O2 at 3L sometimes 4L with ambulation. Using her inhalers as prescribed and in need of refills. Energy is okay. Appetite is too good per patient. Denies any fever, chills,chest pains or wheezing. Followed up with - cardiology yesterday. Echo scheduled with follow up. Upcoming pulmonology appointment with PFTs. I have reviewed the patient?s last hospital course including diagnostic testing performed during this hospitalization, their discharge medications, and my assessment and plan with the patient and any family members present at today?s visit. PAST MEDICAL HISTORY: Reviewed and updated ALLERGIES: Reviewed and updated MEDICATIONS: Reviewed and updated SOCIAL HISTORY: Reviewed and updated FAMILY HISTORY: Reviewed and updated REVIEW OF SYSTEMS GENERAL: No weight loss, malaise or fevers HEENT: Negative for frequent or significant headaches, No changes in hearing or vision, no nose bleeds or other nasal problems RESPIRATORY: See HPI CARDIOVASCULAR: Negative for chest pain, leg swelling, or palpitations GI: No nausea, vomiting, or diarrhea : No history of dysuria, frequency or incontinence NEURO: No history of headaches, syncope, paralysis, seizures or tremors All other systems reviewed and negative, other than HPI. PHYSICAL EXAMINATION BP 128/70 Pulse 80 Temp 98.8 Resp 28 Wt 147 lb (66.7kg) SpO2 96% General appearance: alert, in no acute distress and well-hydrated, well nourished, motor and sensory appear to be normal Lungs: Positive findings: wheezing , no wheezing or rhonchi Heart: RRR without murmur, gallop, or rubs. No ectopy Abdomen: Normal abdominal exam, Abdomen soft, non-tender. Bowel sounds normal. No masses, organomegaly Extremities: Extremities normal. No deformities, edema, or skin discoloration. Good capillary refill. 1. I have reviewed the patient record including associated test results during the last hospitalization Yes 2. I have reviewed Lab test Yes 3. I have reviewed Radiology test Yes 4. I reviewed assessment/plan with the patient/family member Yes ASSESSMENT/PLAN: 1. Hospital discharge follow-up - ICD9: V67.59, ICD10: Z09 (primary diagnosis) - Condition improved, back to baseline - Continue current medications - Follow up with Pulmonology as scheduled 2. End stage COPD (HCC) - ICD9: 496, ICD10: J44.9 - Stable with recent exacerbation - Follow up with pulmonology and PFTs as planned - Continue current mediations and home O2 - Routine follow up in 3 months 3. IFG (impaired fasting glucose) - ICD9: 790.21, ICD10: R73.01 - Noted from hospital admission - HGB A1C - ALBUMIN/CREAT RATIO RND UR 4. Tobacco use disorder - ICD9: 305.1, ICD10: F17.200 - Cessation encouraged. - Physiologic and physical aspects of tobacco addiction as well as strategies for quitting were discussed. - Counseling was given focusing on the harmful effects of this addiction especially given the patient's medical condition(s) which will be worsened because of the chemicals in tobacco. - Counseling was given 3-4 minutes. Aaliyah Brewer APRN.RIBBON LAP MACHINE TENDER December 13, 2017 2:41 PM Referring Provider: SELF [200] Allergies As of Date: 12/13/2017 Noted Allergy Reaction FENTANYL 08/28/2010 5 - Intolerance ALBUTEROL 11/02/2004 4 - Hives CATS 07/22/2007 CODEINE 11/02/2004 4 - Hives DOGS 07/22/2007 environmental [Other] 07/22/2007 Comments: Trees,grass,pollen IODINE 11/02/2004 2 - Rash LITHIUM 11/02/2004 Comments: Reverse reaction - severe anger MORPHINE 01/11/2012 11 - Vomiting NAPROSYN (NAPROXEN) 06/28/2006 PENICILLINS 11/02/2004 4 - Hives PHENOBARBITAL 11/03/2004 4 - Hives SULFA (SULFONAMIDE ANTIBIOTICS) 11/02/2004 2 - Rash 4 - Hives Date Reviewed: 12/13/2017 Reviewed by: Linette Ramos LPN - Fully Assessed Reason for Visit: Hospital F/U [57] Cmt: pneumonia Primary Visit Diagnosis:Hospital discharge follow-up [Z09] Other Visit Diagnoses:End stage COPD (HCC) [J44.9] IFG (impaired fasting glucose) [R73.01] Tobacco use disorder [F17.200] Order(s):HGB A1C [XPKGR2S] Order #: [id number] FUTURE BASIC METABOLIC PNL [SQBMP] Order #: [id number] FUTURE ALBUMIN/CREAT RATIO RND UR [SQUACR] Order #: [id number] FUTURE fluticasone-vilanterol (BREO ELLIPTA) 200-25 mcg/dose inhalerInhale 1 Inhalation as instructed once daily.Disp: 1 EachRfl: 11 LIPID PANEL, NONFASTING [SQLIPNF] Order #: [id number] FUTURE Prescriptions as of 12/13/2017 Sig: FLUTICASONE 200 MCG-VILANTERO* Inhale 1 Inhalation as instru* PREDNISONE 10 MG TABLET Take 40 mg x 3 days, 20 mg x * CHOLECALCIFEROL (VITAMIN D3) * Take 1 capsule by mouth once * PANTOPRAZOLE 20 MG TABLET,DEL* Take 1 tablet by mouth twice * COMPOUNDED PRESCRIPTION Evaluate for portable oxygen * LEVALBUTEROL 0.63 MG/3 ML NATAN* Take (1) nebulizer treatment * IPRATROPIUM BROMIDE 17 MCG/AC* Inhale 2 Puffs as instructed * COMPOUNDED PRESCRIPTION MANUAL WHEELCHAIR DX J44.9* COMPOUNDED PRESCRIPTION NEBULIZER MACHINE AND MEDICAT* SPIRIVA RESPIMAT 2.5 MCG/ACTU* Inhale 2 Inhalation as instru* CYCLOBENZAPRINE 10 MG TABLET Take 1 tablet by mouth once d* COMPOUNDED PRESCRIPTION Electric wheelchair COMPOUNDED PRESCRIPTION Portable oxygen concentrator NITROGLYCERIN 0.4 MG SUBLINGU* Dissolve 1 tablet under the t* ATORVASTATIN 80 MG TABLET Take 1 tablet by mouth once d* RANOLAZINE ER 500 MG TABLET,E* Take 1 tablet by mouth twice * HYDROCODONE 5 MG-ACETAMINOPHE* Take 1 tablet by mouth every * GABAPENTIN 300 MG CAPSULE Take 2 capsules by mouth thre* CLOPIDOGREL 75 MG TABLET Take 1 tablet by mouth once d* ASPIRIN 81 MG CHEWABLE TABLET Take 1 tablet by mouth once d* COMPOUNDED PRESCRIPTION Manual Wheel Chair : 1 Dx:* ISOSORBIDE MONONITRATE ER 30 * Takes all 3 pills in the AM LOSARTAN 50 MG TABLET Take 1 tablet by mouth once d* AMLODIPINE 5 MG TABLET Take 1 tablet by mouth once d* METOPROLOL TARTRATE 25 MG TAB* Take 1 tablet by mouth twice * FENOFIBRATE NANOCRYSTALLIZED * Take 1 tablet by mouth once d* * WELLBUTRIN SR 150 MG TABLET, * Take one(1) tablet daily per * * PAROXETINE 40 MG TABLET Take one(1) tablet daily, per* Problem List As Of Date 12/13/2017 Noted Resolved DM type 2, controlled, with complication (HCC) *INVALID FOR*04/14/2015 More... Mixed simple and mucopurulent chronic bronchiti*INVALID FOR*10/31/2016 More... Hypertriglyceridemia [E78.1] INVALID FOR* More... CHRONIC BRONCHITIS [491] INVALID FOR*09/12/2005 Bipolar disorder, unspecified (HCC) [F31.9] INVALID FOR* More... DEPRESSIVE DISORDER NEC [F32.9] INVALID FOR* More... Other specified cardiac dysrhythmias(427.89) [I*INVALID FOR* More... Coronary atherosclerosis [I25.10] INVALID FOR* More... MYALGIA AND MYOSITIS NOS [QEQ6587] INVALID FOR* More... Lumbago [M54.5] INVALID FOR*08/15/2016 More... More... Peripheral vascular disease, unspecified (HCC) *INVALID FOR* More... DERMATOPHYTOSIS OF NAIL [B35.1] INVALID FOR* OSTEOPOROSIS NOS [M81.0] INVALID FOR* Unspecified vitamin D deficiency [E55.9] INVALID FOR*08/15/2016 More... Patient Noncompliance [Z91.19] INVALID FOR* Secondary DM with neurological manifestations (*INVALID FOR* More... HTN (hypertension) [I10] INVALID FOR* More... Chronic back pain [M54.9, G89.29] INVALID FOR*08/15/2016 Physical deconditioning [R53.81] INVALID FOR* DDD (degenerative disc disease), lumbar [M51.36]INVALID FOR* High dependence on smoking [F17.200] INVALID FOR* More... Needs smoking cessation education [F17.200] INVALID FOR*08/15/2016 More... Vitamin D deficiency [E55.9] INVALID FOR* More... GERD (gastroesophageal reflux disease) [K21.9] INVALID FOR* More... Unspecified disorder of skin and subcutaneous t*INVALID FOR* SCCA (squamous cell carcinoma) of skin [C44.92] INVALID FOR* COPD with chronic bronchitis (HCC) [J44.9] INVALID FOR*10/31/2016 More... End stage COPD (HCC) [J44.9] INVALID FOR* More... Tobacco use disorder [F17.200] Prescriptions ordered this encounter Disp Refills Start End FLUTICASONE 200 MCG-VILANTEROL 25 MC* 1 Ea* 11 12/13/2017 Sig: Inhale 1 Inhalation as instructed once daily. Medications Discontinued During This Encounter BREO ELLIPTA 200-25 mcg/dose inhaler 1 Ea* 11 12/31/2016 12/13/2017 Cmt: This prescription was filled on 12/31/2016. Any refills authorized will be placed on file. Sig: Inhale 1 Inhalation as instructed once daily. Disc: Reason for discontinue is not on file. Disposition: Return in about 3 months (around 03/15/2018). Follow-up and Disposition History Recorded Encounter Status:Closed by AALIYAH BREWER CNP on 12/13/17 PULMONARY VISIT REPORT Observed: 12/12/2017 Status: F Source: [place] 8:28 AM [facility] REPOSIT[facility] [address] [place] [address] OFFICE VISIT Date of Service: 12/10/17 MR#: [id number] Acct: [id number] Name: HEATHER MEYERS Rep #: [id number] : 1945 Provider: Melanie Domingo Age/Sex: 72/F Location: [facility] Status: Signed Assessment AND Plan 1. Gram-negative pneumonia J15.6 Plan Completed antibiotics as directed. No further concern for pneumonia at this time. 2. Acute hypercapnic respiratory failure J96.02 Plan Continue to use supplemental oxygen as needed to maintain saturations 89-92%. The patient is using and benefiting from supplemental oxygen. Follow-up with Dr. Breaux in 3 months. 3. Tobacco abuse Z72.0 Plan A 11 minute, face to face discussion occurred with the patient regarding smoking cessation. Risks of continued tobacco abuse was covered such as heart disease, stroke, cancer, and emphysema, among others. The many health benefits quitting, was discussed and the patient was educated on the fact that smokers lose an average of 10 minutes of life for every cigarette smoked. We discussed the pathophysiology of smoking addiction and its dual addictive components of nicotine addiction and psychological addiction. Nicotine replacement was discussed. We also talked about medications that may be helpful such as Bupropion (Wellbutrin) or Varenicline (Chantix). Advise was also offered on preoccupying the mind during trigger times with activities such as chewing gum, sucking on hard candy or utilizing their hands with an activity such as drawing. Currently the patient is smoking one half Ppd. At this time, HEATHER elects to continue with nicotine patch at this time. We will continue to monitor the tobacco abuse and encourage cessation. You may call the free hotline 3-135-IHYZNOW. People who use this line are THREE times more likely to remain smoke free. 4. SOB (shortness of breath) R06.02 Plan Shortness of breath likely related to advanced COPD. Will obtain a pulmonary function test to quantify lung function. Follow-up with Dr. Breaux in 3 months to discuss test results. Continue current maintenance medications at this time, will review at follow-up and determine if any changes would be appropriate. No need for repeat prednisone or antibiotics today. Contact the office with any new or worsening symptoms. Orders Orders: Plan Detail Other Orders Orders: Other Medications New: tiotropium bromide 2.5 mcg/actuation (Spiriva Respimat) 2 puffs Inhalation QDAY 1 ea 6RF administer at approximately the same time(s) each day Follow Up 3 Months ([facility]) HPI hospital f/u: Chief Complaint: Shortness of breath HPI Comments Details: This is a 72 year old F, currently under the care of Jodi Butler, here to follow up after a recent hospitalization at [facility], from November 23 - November 27, 2017 for gram-negative pneumonia bilateral lower lobes, COPD with acute exacerbation, and acute respiratory failure with hypoxia and hypercapnia. The hospital stay was complicated by new onset of hypoxia requiring upwards of 6 L of nasal cannula oxygen at one point, able to be weaned down to 4 L of nasal cannula oxygen prior to discharge. 10 pages of hospital documentation was reviewed, and found to be significant for echocardiogram showing an EF of 25% and a chest x-ray completed on November 23 showing advanced chronic lung disease, could not exclude superimposed mild edema and/or atypical infiltrates. Upon discharge, the patient completed a 7 day course of Levaquin and a 12 day course of prednisone. Today, she presents to the office in a wheelchair, wearing nasal cannula oxygen and accompanied by a urgent care nurse practitioner. She continues to report persistent fatigue, feels that she has improved since hospital discharge but is not back to her baseline. She continues to experience shortness of breath on exertion. She has a dry cough, denies any sputum production or hemoptysis. She also reports wheezing. She has occasional chest tightness and chest pain as well. She has a cardiac history and follows up with her round boner tomorrow. She is using Brio daily. She reports taking a drink after using the Brio and denies any medication side effects such as sore throat or thrush. She is also compliant with Spiriva Respimat daily. She is using less albuterol by nebulizer 4 times daily. She is using Atrovent by nebulizer 4 times daily. She is currently using a 21 mg nicotine patch. Previously she was smoking 3 packs/day. She reports that now she is down to 1/2 pack/day. She does report taking her nicotine patch off while smoking. When questioned about smoking with supplemental oxygen on the patient stated oh yeah, I just light a cigarette while my oxygen on and blow my face up. Patient was being sarcastic. Clarified that the patient is in fact not wearing supplemental oxygen while smoking. Reinforced that it would be very harmful possibly deadly if she does. The patient reports approximately 15 years ago she used Chantix and was successful at quitting smoking. She states that she was taken off of the Chantix because of her heart. She is open to trying Chantix again, it has been the only successful aid in helping her stop smoking. 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: No Accompanied by: Hse Manager Is patient in pain?: Yes Allergies codeine Allergy (Unknown, Verified 12/11/17 14:31) Unknown lithium Allergy (Unknown, Verified 12/11/17 14:31) Unknown morphine Allergy (Unknown, Verified 12/11/17 14:31) Unknown naproxen [From Naprosyn] Allergy (Unknown, Verified 12/11/17 14:31) Unknown phenobarbital Allergy (Unknown, Verified 12/11/17 14:31) Unknown Sulfa (Sulfonamide Antibiotics) Allergy (Unknown, Verified 12/11/17 14:31) Unknown albuterol Allergy (Verified 12/11/17 14:31) Rash fentanyl Adverse Reaction (Severe, Verified 12/11/17 14:31) Other Iodine and Iodide Containing Produc Adverse Reaction (Verified 12/11/17 14:31) Unknown Penicillins [PCN] Adverse Reaction (Verified 12/11/17 14:31) Unknown Medications Amlodipine [Norvasc] 5 mg PO DAILY 07/13/14 [History Confirmed 12/11/17] Atorvastatin Calcium [Lipitor] 80 mg PO QHS 07/13/14 [History Confirmed 12/11/17] Cyclobenzaprine [Flexeril] 10 mg PO DAILY 07/13/14 [History Confirmed 12/11/17] Fenofibrate [Tricor] 145 mg PO DAILY 07/13/14 [History Confirmed 12/11/17] Gabapentin [Neurontin] 300 mg PO BIDCM 07/13/14 [History Confirmed 12/11/17] Ipratropium/Albuterol Sulfate 2 puff INHALATION 4X/DAY 07/13/14 [History Confirmed 12/11/17] Fluticasone/Vilanterol [Breo Ellipta 200-25 Mcg INH] 1 ea IH DAILY 12/17/16 [History Confirmed 12/11/17] Ipratropium [Atrovent Inhaler] 2 puff INHALATION 4X/DAY 12/17/16 [History Confirmed 12/11/17] Paroxetine HCl [Paxil] 40 mg PO DAILY 12/17/16 [History Confirmed 12/11/17] diphenhydramine 25 mg tablet 25 mg PO Q6H PRN 03/20/17 [History Confirmed 12/11/17] nitroglycerin 0.4 mg sublingual tablet 0.4 mg SUBLINGUAL Q5M PRN #25 tab 03/25/17 [Rx Confirmed 12/11/17] ranolazine ER 500 mg tablet,extended release,12 hr 500 mg PO BID #180 tab 03/25/17 [Rx Confirmed 12/11/17] losartan 50 mg tablet 50 mg PO DAILY #90 tab 10/17/17 [Rx Confirmed 12/11/17] clopidogrel 75 mg tablet 75 mg PO DAILY #90 tab 10/23/17 [Rx Confirmed 12/11/17] Carvedilol [Coreg (Beta Tata)] 3.125 mg PO BID #60 tab 11/12/17 [Rx Confirmed 12/11/17] Cholecalciferol (Vitamin D3) [Vitamin D3] 50,000 unit PO QWEEK 11/23/17 [History Confirmed 12/11/17] Levalbuterol HCl 0.63 mg INHALATION 4X/DAY PRN 11/23/17 [History Confirmed 12/11/17] Pantoprazole Sodium [Protonix] 20 mg PO DAILY 11/23/17 [History Confirmed 12/11/17] buPROPion SR [Wellbutrin SR (150mg tablets)] 150 mg PO DAILY 11/23/17 [History Confirmed 12/11/17] busPIRone [Buspar] 15 mg PO DAILY 11/23/17 [History Confirmed 12/11/17] Potassium Chloride [K-Dur] 40 meq PO BIDCM #30 tab 11/27/17 [Rx Confirmed 12/11/17] tiotropium bromide 2.5 mcg/actuation mist for inhalation 2 puff INHALATION QDAY #1 ea 12/10/17 [Rx Confirmed 12/11/17] aspirin 81 mg tablet,delayed release 81 mg PO DAILY 12/11/17 [History Confirmed 12/11/17] isosorbide mononitrate ER 60 mg tablet,extended release 24 hr 90 mg PO DAILY tab 12/11/17 [History Confirmed 12/11/17] [facility] Medical History Presence of stent in coronary artery (Chronic) Acute respiratory failure with hypoxia and hypercapnia (Acute) COPD with acute exacerbation (Acute) Gram-negative pneumonia (Acute) Acute hypercapnic respiratory failure (Acute) NSTEMI (non-ST elevated myocardial infarction) (Acute) COPD exacerbation (Acute) CAD (coronary artery disease) (Chronic) Tobacco abuse (Chronic) Congestive heart failure (Acute) Nonrheumatic tricuspid (valve) insufficiency (Chronic) Nonrheumatic mitral valve insufficiency (Chronic) Nicotine dependence, cigarettes, uncomplicated (Chronic) Hypertension (Chronic) Hyperlipidemia (Chronic) Atherosclerosis of [place] coronary artery of [place] heart without angina pectoris (Chronic) Peripheral vascular disease (Chronic) SOB (shortness of breath) (Chronic) Anemia (Chronic) COPD (chronic obstructive pulmonary disease) (Chronic) Diabetes mellitus (Chronic) Fibromyalgia (Chronic) GERD (gastroesophageal reflux disease) (Chronic) Hyperlipidemia (Chronic) MARISABEL (obstructive sleep apnea) (Chronic) Surgical History H/O tubal ligation (Chronic) History of left heart catheterization (Chronic) Hx of appendectomy (Chronic) S/P femoral-femoral bypass surgery (Chronic) Family History Mother CAD (coronary artery disease) Hypertension Sister CAD (coronary artery disease) Myocardial infarction Social History Smoking Status: Current every day smoker alcohol intake: never substance use type: does not use caffeine: Yes Type: coffee what type of physical activity do you participate in: none seatbelt use: always do you feel safe at home: Yes Review of Systems Const CONSTITUTIONAL: Positive fatigue; negative anorexia, body ache, chills, daytime sleepiness, fever(s), night sweats, oral thrush, stops breathing during sleep, weight loss, sleeping in chair, weight loss, weight gain, frequent colds, seasonal allergies, other, headache(s) or orthopnea EETM Ear Nose Throat Mouth: Positive hearing normal and nasal discharge; negative hard of hearing, hoarseness, dry mouth in morning, change in vision, itchy eyes, eye pain, swallowing Difficulty, ear pain, nose bleed, headache(s), mouth pain, nasal congestion, post nasal drip, sinus pain, sinus pressure, sore throat or other Cardio Cardiovascular: Negative chest pain, chest pain at rest, chest pain with activity, irregular heart rhythm, edema, shortness of breath when lying down, palpitations, murmur or other Resp Respiratory: Positive as per HPI, shortness of breath shortness of breath: Positive with activity, wheezing, cough cough: Positive non-productive and inhalers; negative pain with cough, chest congestion, chest tightness, pain on inspiration, increase use of rescue inhalers, snoring, apnea or other Gastro Gastrointestional: Negative bloody stools, change in appetite, difficulty swallowing, reflux, hematemesis, melena stool, loose stool, constipation or other Genitourinary: Negative blood in urine, nocturia, pain with urination or other Musc Musculoskeletal: Positive body pain; negative back pain, neck pain or other Skin/Breast Skin/Breast: Negative dry skin, itching, rash, unusual bruising, breast lump or other Neuro Neurological: Positive weakness; negative restless legs, confusion or other Psych Psychocological: Negative abnormal sleep pattern, anxiety, thoughts of hurting self/others, hopelessness or other Lymph Lymphatic: Negative easy bleeding, easy bruising, swollen lymph nodes or other Exam Const Constitutional: Positive conversant, cooperative, in no acute respiratory distress, healthy appearing, well developed, well nourished and good hygiene Head Head: Positive normocephalic and atraumatic; negative cyanosis of lips/distal nose Eyes Eye: Positive clear conjunctiva; negative nystagmus or scleral abnormality Ears Ear: Positive hearing normal and external ears normal; negative hard of hearing Nose Nose: Positive external nose normal and no nasal discharge; negative epistaxis Mouth Mouth: Positive poor dentition, oral mucosae normal, no lesions and posterior oropharynx is adequate; negative post nasal drip, malodorous breath or oral thrush present Mallampati Score: I: Mallampati Score Neck Neck: Positive normal visual inspection, full ROM and trachea midline; negative lymphadenopathy, JVD or tender Chest Wall Chest: Positive symmetric chest movement and increased A/P diameter Resp lung sounds: Positive diminished, wheeze present on forced exhalation, prolonged expiratory time and increased work of breathing; negative wheezes, rhonchi, rales, dullness to percussion or use of accessory muscles Cardio Cardiac: Positive regular rate, regular rhythm, S1 normal and S2 normal; negative murmur GI GI: Positive normal to inspection; negative distended Genitourinary: Positive deferred Musc Musculoskeletal: Positive ROM normal and in a wheelchair; negative kyphosis or scoliosis Skin Pulmonary Skin Exam: Positive intact and dermal atrophy; negative rash, lesion, ulcers, erythema or scaly Pulses Pulse: Yes pulses normal x4 extremities Extremities Extremities: Yes clubbing, Yes capillary refill normal, No cyanosis, No edema Neuro Neurologic: Yes conversant, Yes no focal neuro deficits, Yes normal concentration, Yes understands questions, Yes cooperative, Yes normal cognition, Yes normal coordination, No tremor Lymph Lymphatic: No lymphadenopathy, No tenderness, No cervical adenopathy Psych Appearance: Positive grossly normal, eye contact and well kempt Mental Status: Positive mental status grossly normal Mood: Positive anxious mood and labile mood Affect: Positive labile affect and anxious affect Office Procedures Smoking Cessation Time Spent greater than 10 minutes: Yes Coding Level of Care Code Off vis,est,level 4 Diagnoses Gram-negative pneumonia J15.6 Acute hypercapnic respiratory failure J96.02 Tobacco abuse Z72.0 SOB (shortness of breath) R06.02 Additional Codes Time Spent - greater than 10 minutes: Yes ([id number]) 12/12/17 0828 <Electronically signed by Melanie DAVID> Date Melanie DAVID Cosigner Signature: Date (if applicable) CC: Jodi Butler MD CARDIOLOGY VISIT Observed: 12/11/2017 Status: F Source: [place] RE[facility] 3:38 PM [facility] REPOSITORY [facility] [address] [place] [address]. [address] [place] [address] OFFICE VISIT Date of Service: 12/11/17 MR#: [id number] Acct: [id number] Name: MIRAHEATHER LEE Rep #: [id number] : 1945 Provider: Gilberto Rodrigues MD Age/Sex: 72/F Location: [facility] Status: Signed HPI HPI Details: HEATHER MEYERS, is a 72 F who presents to the office today for outpatient cardiovascular follow-up. She underwent evaluation and care at [facility] in early November of this year for concerns of a combination of acute coronary syndrome superimposed upon her chronic underlying cardiovascular disease/pulmonary disease. Based upon her recollection and medical records available for review it appears that she underwent evaluation care which included a transthoracic echocardiogram and a diagnostic cardiac catheterization. The results are as noted below. She was treated medically and eventually released home for continued outpatient follow-up. She subsequently returned to the hospital in late November this year. It appears that at that time she was evaluated for worsening shortness of breath and dyspnea with the concerns of possible acute on chronic systolic CHF and COPD exacerbation. She was in the ICU. She required temporary mechanical intubation/ventilation. She was treated medically and eventually released home for outpatient follow-up. She believes that the present time that her breathing has returned to her baseline. She continues to require oxygen therapy. She has not had any ongoing symptoms of classic angina pectoris. She has had no episodes of acute orthopnea or PND or the development of peripheral pitting edema. There has been no near syncope or syncope. Intake Vital Signs12/11/17 Height 5 ft 2.5 in 12/11/17 Weight: 155 lb 12/11/17 Body Mass Index (BMI) 27.8 12/11/17 Blood Pressure 100/52 L Intake Visit Reasons: 9 M FU Allergies codeine Allergy (Unknown, Verified 12/11/17 14:31) Unknown lithium Allergy (Unknown, Verified 12/11/17 14:31) Unknown morphine Allergy (Unknown, Verified 12/11/17 14:31) Unknown naproxen [From Naprosyn] Allergy (Unknown, Verified 12/11/17 14:31) Unknown phenobarbital Allergy (Unknown, Verified 12/11/17 14:31) Unknown Sulfa (Sulfonamide Antibiotics) Allergy (Unknown, Verified 12/11/17 14:31) Unknown albuterol Allergy (Verified 12/11/17 14:31) Rash fentanyl Adverse Reaction (Severe, Verified 12/11/17 14:31) Other Iodine and Iodide Containing Produc Adverse Reaction (Verified 12/11/17 14:31) Unknown Penicillins [PCN] Adverse Reaction (Verified 12/11/17 14:31) Unknown Medications Amlodipine [Norvasc] 5 mg PO DAILY 07/13/14 [History Confirmed 12/11/17] Atorvastatin Calcium [Lipitor] 80 mg PO QHS 07/13/14 [History Confirmed 12/11/17] Cyclobenzaprine [Flexeril] 10 mg PO DAILY 07/13/14 [History Confirmed 12/11/17] Fenofibrate [Tricor] 145 mg PO DAILY 07/13/14 [History Confirmed 12/11/17] Gabapentin [Neurontin] 300 mg PO BIDCM 07/13/14 [History Confirmed 12/11/17] Ipratropium/Albuterol Sulfate 2 puff INHALATION 4X/DAY 07/13/14 [History Confirmed 12/11/17] Fluticasone/Vilanterol [Breo Ellipta 200-25 Mcg INH] 1 ea IH DAILY 12/17/16 [History Confirmed 12/11/17] Ipratropium [Atrovent Inhaler] 2 puff INHALATION 4X/DAY 12/17/16 [History Confirmed 12/11/17] Paroxetine HCl [Paxil] 40 mg PO DAILY 12/17/16 [History Confirmed 12/11/17] diphenhydramine 25 mg tablet 25 mg PO Q6H PRN 03/20/17 [History Confirmed 12/11/17] nitroglycerin 0.4 mg sublingual tablet 0.4 mg SUBLINGUAL Q5M PRN #25 tab 03/25/17 [Rx Confirmed 12/11/17] ranolazine ER 500 mg tablet,extended release,12 hr 500 mg PO BID #180 tab 03/25/17 [Rx Confirmed 12/11/17] losartan 50 mg tablet 50 mg PO DAILY #90 tab 10/17/17 [Rx Confirmed 12/11/17] clopidogrel 75 mg tablet 75 mg PO DAILY #90 tab 10/23/17 [Rx Confirmed 12/11/17] Carvedilol [Coreg (Beta Tata)] 3.125 mg PO BID #60 tab 11/12/17 [Rx Confirmed 12/11/17] Cholecalciferol (Vitamin D3) [Vitamin D3] 50,000 unit PO QWEEK 11/23/17 [History Confirmed 12/11/17] Levalbuterol HCl 0.63 mg INHALATION 4X/DAY PRN 11/23/17 [History Confirmed 12/11/17] Pantoprazole Sodium [Protonix] 20 mg PO DAILY 11/23/17 [History Confirmed 12/11/17] buPROPion SR [Wellbutrin SR (150mg tablets)] 150 mg PO DAILY 11/23/17 [History Confirmed 12/11/17] busPIRone [Buspar] 15 mg PO DAILY 11/23/17 [History Confirmed 12/11/17] Potassium Chloride [K-Dur] 40 meq PO BIDCM #30 tab 11/27/17 [Rx Confirmed 12/11/17] tiotropium bromide 2.5 mcg/actuation mist for inhalation 2 puff INHALATION QDAY #1 ea 12/10/17 [Rx Confirmed 12/11/17] aspirin 81 mg tablet,delayed release 81 mg PO DAILY 12/11/17 [History Confirmed 12/11/17] isosorbide mononitrate ER 60 mg tablet,extended release 24 hr 90 mg PO DAILY tab 12/11/17 [History Confirmed 12/11/17] [facility] Medical History Presence of stent in coronary artery (Chronic) Acute respiratory failure with hypoxia and hypercapnia (Acute) COPD with acute exacerbation (Acute) Gram-negative pneumonia (Acute) Acute hypercapnic respiratory failure (Acute) NSTEMI (non-ST elevated myocardial infarction) (Acute) COPD exacerbation (Acute) CAD (coronary artery disease) (Chronic) Tobacco abuse (Chronic) Congestive heart failure (Acute) Nonrheumatic tricuspid (valve) insufficiency (Chronic) Nonrheumatic mitral valve insufficiency (Chronic) Nicotine dependence, cigarettes, uncomplicated (Chronic) Hypertension (Chronic) Hyperlipidemia (Chronic) Atherosclerosis of [place] coronary artery of [place] heart without angina pectoris (Chronic) Peripheral vascular disease (Chronic) SOB (shortness of breath) (Chronic) Anemia (Chronic) COPD (chronic obstructive pulmonary disease) (Chronic) Diabetes mellitus (Chronic) Fibromyalgia (Chronic) GERD (gastroesophageal reflux disease) (Chronic) Hyperlipidemia (Chronic) MARISABEL (obstructive sleep apnea) (Chronic) Surgical History H/O tubal ligation (Chronic) History of left heart catheterization (Chronic) Hx of appendectomy (Chronic) S/P femoral-femoral bypass surgery (Chronic) Family History Mother CAD (coronary artery disease) Hypertension Sister CAD (coronary artery disease) Myocardial infarction Social History Smoking Status: Current every day smoker alcohol intake: never substance use type: does not use caffeine: Yes Type: coffee what type of physical activity do you participate in: none seatbelt use: always do you feel safe at home: Yes ROS Const Const: Positive for fatigue (continues with fatigue); negative for weakness, weight gain, weight loss, frequent falls or excessive sweating Eyes Eyes: Negative for change in vision, blurry vision or transient loss of vision ENT ENT: Negative for dizziness or balance problems Cardio Chest Pain: No Palpitations: Yes (occasional) feels like its: fast Edema: None Muscle aches with walking: None Resp Respiratory: Positive for SOB with activity (baseline), SOB at rest (baseline), Cough and wheezing GI GI: Negative vomiting or vomiting blood/hematemesis : Negative for hematuria Musc Musc: Positive for muscle aches/ myalgia (Rt arm pain) and joint pain (arthritis); negative for balance problems or muscle weakness Skin Skin: Negative non-healing lesions or rash Neuro Neuro: Negative for weakness, blurry vision, dizziness, lightheadedness, frequent falls or orthostatic symptoms [place] Hematologic/Lymphatic: Negative for easy bleeding Endo Endo: Positive for fatigue (continues with fatigue); negative for excessive sweating Psych Psych: Negative for anxiety or depression Allergy Allergy/Immunology: Negative for hives, Negative for rash Cardiology Exam Const Appearance: cooperative, healthy appearing, comfortable, no acute distress, well developed, well groomed and other (wearing O2 NC) Nutritional Appearance: average body habitus Head Head: normal to inspection, normocephalic and atraumatic Ears: hearing grossly normal bilaterally Nose: external nose normal Face and Sinus: face symmetric Mouth: oral mucosae normal Eyes Eyelids: eyelids normal Conjunctivae: conjunctivae normal Pupils: PERRL EOM: EOM intact bilaterally Neck Neck: normal visual inspection and full ROM Carotids: normal carotid upstroke Chest Chest inspection: symmetric chest movement Auscultation: Bilateral: Rhonchi Cardio Palpation: normal PMI Rate: regular rate Rhythm: regular rhythm Heart sounds: S1 normal and S2 normal GI GI: normal to inspection, bowel sounds present and soft Neuro General: alert, awake, oriented x3 and moves all extremities Skin Skin: no rashes or lesions noted Extremities Pulses: Normal: Right Radial Pulse, Left Radial Pulse Lower Extremity Edema: None: Bilateral Psych Psychological: normal affect Supplemental Info Transthoracic echocardiogram: 11/09/2017 Interpretation Summary Mildly dilated left ventricle. The estimated ejection fraction is 25 %. Stage 1 diastolic dysfunction. Mid-Anterior : Akinetic. Mid-anteroseptal : Akinetic. Anterior [place] : Akinetic. Inferior [place] : Akinetic. Trivial tricuspid valve insufficiency. Right ventricular systolic pressure estimated to be 39 mmHg. Mild pulmonary hypertension. Trivial aortic valve insufficiency. Compared to echo report dated 12/17/2016, LV Function has gone from 55% to 25%. Cannot exclude Takotsubo's cardiomyopathy. Recommend clinical correlation. The study was technically difficult. Stress nuclear imaging study: 07/06/2014 The patient underwent pharmacologic (regadenoson) evaluation with a peak heart rate of 115 beats per minute (76% predicted maximum heart rate) and a peak blood pressure of 172/110 mmHg. The baseline ECG demonstrated normal sinus rhythm. The peak pharmacologic ECG demonstrated no obvious ECG changes. There was a rare PVC during pharmacologic infusion. There was notation of transient shortness of breath and dizziness and upper extremity numbness sensation in recovery with spontaneous resolution. IMPRESSION: 1. Pharmacologic (regadenoson) evaluation. 2. Peak pharmacologic ECG demonstrating no obvious ECG changes. 3. Rare PVC during pharmacologic infusion. 4. Nuclear images pending. MYOCARDIAL PERFUSION IMAGING STUDY: TECHNIQUE: The patient was injected with 11.5 mCi of Tc99m Cardiolite and subsequently rest SPECT Cardiolite nuclear imaging was obtained in the horizontal long, vertical long, and short axes views. The patient underwent pharmacologic (regadenoson) evaluation with a peak heart rate of 115 beats per minute (76% predicted maximum heart rate) and a peak blood pressure of 172/110 mmHg. The patient was injected with 33.7 mCi of Tc99m Cardiolite and subsequently stress SPECT Cardiolite nuclear imaging was obtained in the horizontal long, vertical long, and short axes views. A gated Cardiolite study at peak stress was obtained. INTERPRETATION: Rest and stress SPECT Cardiolite nuclear imaging both demonstrate areas of subtle diminished tracer uptake in portions of the basal to mid inferior segments as well as the distal inferior/inferior apical segments. This appears to be somewhat more prominent following stress as opposed to rest. There is end systolic thickening and brightening. The gated Cardiolite study demonstrates myocardial thickening and inward wall motion. The reported LVEF is 71%. The aforementioned changes maybe compatible with the effects of shifting soft tissue attenuation/artifact being somewhat more prominent following stress as opposed to rest although an area of myocardial ischemia involving portions of the distal inferior and inferior apical segments cannot necessarily be excluded. IMPRESSION: 1. Rest and stress SPECT Cardiolite nuclear imaging demonstrate myocardial perfusion changes potentially compatible with the effects of shifting soft tissue attenuation/artifact being more prominent following stress as opposed to rest although an area of myocardial ischemia involving portions of the distal inferior and inferior apical segments cannot necessarily be excluded. 2. The gated Cardiolite study reports an LVEF of 71%. Cardiac catheterization/PCI: 11/11/2017 CORONARY ANGIOGRAPHY DOMINANCE: Co- Dominant LEFT HEART ASSESSMENT Left Ventricular Ejection Fraction: by LV gram 45-50 % LEFT MAIN: Previously placed stent is patent LEFT ANTERIOR DECENDING ARTERY: PROX LAD: Mild luminal irregularities less than 30% CIRCUMFLEX ARTERY: Mild luminal irregularities less than 30% OM 1: Ostial - 60 % Stenosis RIGHT CORONARY ARTERY: MID RCA: 70 % Stenosis DISTAL RCA: 75 % Stenosis RT PDA: Proximal - Mild luminal irregularities less than 30% Cardiac PCI: 11/11/2017 Successful PTCA/SUSAN of the of mid/distal RCA with a 2.25 x 38 Promus Synergy, post dilated proximally with a 3.0 x 12 NC balloon at 8 safia (2.5mm); 75%-->0%, no dissection. Successful PTCA/SUSAN of the proximal RCA with a 2.5 x 20 Promus Synergy, post dilated with a 3.0 x 12 at 14 safia; 75%-->0%, no dissection. Assessment AND Plan 1. Atherosclerosis of [place] coronary artery of [place] heart without angina pectoris I25.10 PTCA/SUSAN to ostium of LMT 10/01/2014 @[facility]; Plan At the present time she appears to be without acute symptoms. She was asked to continue her current medical management. She will notify the office of any concerns. Orders Orders: 2. Presence of stent in coronary artery Z95.5 PTCA/SUSAN to ostium of LMT 10/01/2014 @[facility]; PTCA/SUSAN of the mid/distal RCA 11/11/17 Plan She has undergone remote and recent PCI. Again she appears without acute symptoms at this time. She will continue her current medical therapy Orders Orders: 3. Chronic systolic congestive heart failure I50.22 Plan She does have a history of acute on chronic systolic mediated CHF. She appears to be without acute symptoms at this time. She will continue her medical management. She will have a follow-up transthoracic echocardiogram to see whether or not her LV systolic function is improving status post medical therapy and PCI therapy. This would help guide further evaluation and care. 4. Pure hypercholesterolemia E78.00 Plan Her lipid labs have been reviewed. She will continue medical management and follow-up 5. Essential hypertension I10 Plan Her blood pressure appears to be well controlled. She will continue medical therapy and follow-up. 6. COPD exacerbation J44.1 Plan She has had COPD exacerbations requiring mechanical intubation/ventilation. She does need to continue her medical management and her O2 support. She will report any concerns and/or report to the hospital as needed. Plan Detail Other Orders Orders: Additional Comments Thank you for allowing me to participate in the care of your patient. Please don't hesitate to call if any issues arise. This note was generated using a voice recognition system and there may be incorrect words, spelling or punctuation that were not noted when reviewing the office note prior to saving.r Follow Up 6 Weeks (PFM) Coding Level of Care Code Off vis,est,level 4 Diagnoses Atherosclerosis of [place] coronary artery of [place] heart without angina pectoris I25.10 Presence of stent in coronary artery Z95.5 Chronic systolic congestive heart failure I50.22 Heart failure type: systolic Heart failure chronicity: chronic Pure hypercholesterolemia E78.00 Hyperlipidemia type: pure hypercholesterolemia Essential hypertension I10 Hypertension type: essential hypertension COPD exacerbation J44.1 Coding Level of Care Code Off vis,est,level 4 Diagnoses Atherosclerosis of [place] coronary artery of [place] heart without angina pectoris I25.10 Presence of stent in coronary artery Z95.5 Chronic systolic congestive heart failure I50.22 Heart failure type: systolic Heart failure chronicity: chronic Pure hypercholesterolemia E78.00 Hyperlipidemia type: pure hypercholesterolemia Essential hypertension I10 Hypertension type: essential hypertension COPD exacerbation J44.1 12/11/17 1538 <Electronically signed by Gilberto Rodrigues MD> Date Gilberto Rodrigues MD [facility] Signature: Date (if applicable) CC: Jodi Butler MD DISCHARGE SUMMARY Observed: 11/29/2017 Status: F Source: [place] 4:09 PM [facility] REPOSITORY [facility] Medical Records Department [address] [place] [address] Discharge Summary 11/27/17 1040 MR#: [id number] Acct: [id number] Name: HEATHER MEYERS Rep #: [id number] : 1945 72 From: Davide Villegas MD PCP: Jodi Butler MD Status: DIS IN Y Location: [place] [address] ADDENDUM by Davide Villegas MD on 11/29/17 at 1609 Code Visit The patient has acute on chronic systolic heart failure. Patient symptoms were controlled. 11/29/17 1609 <Electronically signed by Davide Villegas MD> Date Davide Villegas MD cc: Jodi Butler MD; Davide Villegas MD * Signed Discharge Date and Diagnosis Date of Admission: 11/23/17 Date of Discharge: 11/27/17 - Primary Discharge Diagnosis Active and Suspected Problems (Last Reviewed 11/23/17 @ 13:04 by Jackson Peter DO) Acute respiratory failure with hypoxia and hypercapnia (Acute) COPD with acute exacerbation (Acute) Gram-negative pneumonia (Acute), bilateral lower lobes Acute hypercapnic respiratory failure (Acute) - Secondary Discharge Diagnosis Chronic Problems (Last Reviewed 11/23/17 @ 13:04 by Jackson Peter DO) CAD (coronary artery disease) (Chronic) Successful PTCA/SUSAN of the of mid/distal RCA with a 2.25 x 38 Promus Synergy, post dilated proximally with a 3.0 x 12 NC balloon at 8 safia (2.5mm); 75%-->0%, no dissection. Successful PTCA/SUSAN of the proximal RCA with a 2.5 x 20 Promus Synergy, post dilated with a 3.0 x 12 at 14 safia; 75%-->0%, no dissection. Tobacco abuse (Chronic) Nonrheumatic tricuspid (valve) insufficiency (Chronic) Nonrheumatic mitral valve insufficiency (Chronic) Nicotine dependence, cigarettes, uncomplicated (Chronic) Hypertension (Chronic) Hyperlipidemia (Chronic) Atherosclerosis of [place] coronary artery of [place] heart without angina pectoris (Chronic) PTCA/SUSAN to ostium of LMT 10/01/2014 @[facility]; Peripheral vascular disease (Chronic) SOB (shortness of breath) (Chronic) Hospital Course and Treatment Summary of Care Provided: [] This is a 72-year-old female with history of COPD was admitted with shortness of breath consistent with COPD exacerbation. Patient was lethargic and initially put on BiPAP but later on intubated in the ER. Chest x-ray was consistent with infiltrates and bilateral lung bases along with chronic changes of COPD and fibrotic interstitial markings. With the concern of pneumonia, patient started on IV antibiotics. 1. Acute hypercapnic respiratory failure * Suspect due to COPD exacerbation as well as pneumonia. * Extubated on 11/25/2017. On 3 L of oxygen. * The patient was advised to increase oxygen to 4 L on exertion or walking. * Patient was discharged on Levaquin 500 mg 2. Acute COPD exacerbation * Steroids. Solu-Medrol changed to prednisone * Patient has rash with albuterol so patient and therefore continue with her Xopenex 3. Suspected gram-negative pneumonia, bilateral lower lobes * Urinary antigens are negative. Influenza is negative. Sputum culture reported as presumptive Odalys albicans and gram-negative chantal * Aztreonam, as patient has a penicillin allergy, and vancomycin. Later on antibiotic changed to ceftriaxone. * Patient was discharged on Levaquin 500 mg for 3 more days to complete a total of 8 days of antibiotics. * Follow-up with pulmonary clinic with nurse practitioner in 2 weeks. 4. Heart failure with reduced ejection fraction * Clinically, patient does not look in fluid overload state. BNP elevated most probably chronically elevated. Lasix as needed. * Previous ejection fraction was 25% from echocardiogram on November 09 * Continue with carvedilol and losartan 5. Coronary artery disease * Recent drug-eluting stents to the distal and mid RCA on November 11 * First troponin is negative second 0.382 and 0.454 mildly elevated possible related to demand supply mismatch. Patient denies chest pain, dizziness or diaphoresis. * Continue with dual antiplatelet therapy. * Follow-up with cardiology as outpatient 6. DVT prophylaxis with Lovenox Discharge medication reconciliation done. Discharge follow- up instructions completed. Patient requires oxygen at home and in community for acute hypoxic and hypercarbic respiratory failure. Total time spent, exact 35 minutes on discharge meds reconciliation, examination, review of imaging and blood test and discussion with the patient on follow-up instructions. Discharge Activity: May Not Drive Home Medications: Medications to take at Discharge Amlodipine [Norvasc] 5 mg PO DAILY 07/13/14 Aspirin 81 mg PO DAILY@0800 07/13/14 Atorvastatin Calcium [Lipitor] 80 mg PO QHS 07/13/14 Cyclobenzaprine [Flexeril] 10 mg PO DAILY 07/13/14 Fenofibrate [Tricor] 145 mg PO DAILY 07/13/14 Gabapentin [Neurontin] 300 mg PO BIDCM 07/13/14 Ipratropium/Albuterol Sulfate 2 puff INHALATION 4X/DAY 07/13/14 Tiotropium Bath [Spiriva 18 MCG] 1 puff INHALATION DAILY 07/13/14 Vitamin D 50,000 units PO WE 07/13/14 Fluticasone/Vilanterol [Breo Ellipta 200-25 Mcg INH] 1 ea IH DAILY 12/17/16 Ipratropium [Atrovent Inhaler] 2 puff INHALATION 4X/DAY 12/17/16 Paroxetine HCl [Paxil] 40 mg PO DAILY 12/17/16 diphenhydramine 25 mg tablet 25 mg PO Q6H PRN 03/20/17 nitroglycerin 0.4 mg sublingual tablet 0.4 mg SUBLINGUAL Q5M PRN #25 tab 03/25/17 ranolazine ER 500 mg tablet,extended release,12 hr 500 mg PO BID #180 tab 03/25/17 losartan 50 mg tablet 50 mg PO DAILY #90 tab 10/17/17 clopidogrel 75 mg tablet 75 mg PO DAILY #90 tab 10/23/17 Carvedilol [Coreg (Beta Tata)] 3.125 mg PO BID #60 tab 11/12/17 Cholecalciferol (Vitamin D3) [Vitamin D3] 50,000 unit PO QWEEK 11/23/17 Isosorbide Mononitrate [Imdur] 90 mg PO QDAY 11/23/17 Levalbuterol HCl 0.63 mg INHALATION 4X/DAY PRN 11/23/17 Pantoprazole Sodium [Protonix] 20 mg PO DAILY 11/23/17 buPROPion SR [Wellbutrin SR (150mg tablets)] 150 mg PO DAILY 11/23/17 busPIRone [Buspar] 15 mg PO DAILY 11/23/17 Levofloxacin [Levaquin] 500 mg PO DAILY #3 tablet 11/27/17 Potassium Chloride [K-Dur] 40 meq PO BIDCM #30 tablet 11/27/17 Following Prescrptions Were Given to Patient: Levofloxacin [Levaquin] 500 mg PO DAILY #3 tablet Potassium Chloride [K-Dur] 40 meq PO BIDCM #30 tablet Primary Care Physician: Jodi Butler MD [Primary Care Provider] - Please follow up with your Primary Care Physician in: in 1- 2 weeks Please Follow Up With: Melanie Domingo NP-C Please Follow Up With: Jodi Butler MD Medical Necessity - Tobacco Use Smoking Status: Current every day smoker Meaningful Use Info Meaningful Use Diagnoses (Choose all that apply): None applicable Code Visit Inpatient E AND M: 75673 Disch Hosp 11/27/17 1702 <Electronically signed by Davide Villegas MD> Date Davide Villegas MD Cosigner Signature (if applicable): Date CC: Jodi Butler MD; Davide Villegas MD Signed 12 LEAD ELECTROCARDIOGRAM Observed: 11/29/2017 Status: F Source: [place] 2:34 PM [facility] REPOSITORY [facility] Cardiovascular Services [address] [place] [address] 12 Lead EKG 11/25/172014 MR#: [id number] Acct: [id number] Name: HEATHER MEYERS Rep #: [id number] : 1945 72 From: Gilberto Rodrigues MD Attending Dr: Davide Villegas MD Status: DIS IN Ordering Dr: Gilberto Giles MD Date: 11/25/17 Location: [facility] Sex: F C Admitted: 11/23/17 Test Reason : CHEST PAIN Blood Pressure : / mmHG Vent. Rate : 071 BPM Atrial Rate : 071 BPM P-R Int : 148 ms QRS Dur : 090 ms QT Int : 368 ms P-R-T Axes : 061 030 129 degrees QTc Int : 399 ms Sinus rhythm with marked sinus arrhythmia T wave abnormality, consider anterior ischemia Abnormal ECG When compared with ECG of 23-NOV-2017 10:58, MANUAL COMPARISON REQUIRED, DATA IS UNCONFIRMED Confirmed by PILAR IVEY, GILBERTO ([id number]), order editor LORI TORRES ([id number]) on 11/29/2017 2:34:02 PM Referred By: BAKARI Confirmed By:GILBERTO RODRIGUES MD 11/29/17 1434 Date Gilberto Rodrigues MD CC: Jodi Butler MD; Gilberto Giles MD; Davide Villegas MD Signed DISCHARGE INSTRUCTION Observed: 11/27/2017 Status: F Source: [place] 10:40 AM [facility] REPOSITORY [facility] Medical Records Department [address] [place] [id number] Instructions for Home/Discharge Instructions 11/27/17 1038 MR#: [id number] Acct: [id number] Name: HEATHER MEYERS Rep #: [id number] : 1945 72 From: Davide Villegas MD PCP: Jodi Butler MD Status: ADM IN - Discharge Diagnoses Current Active Problems: Current Active and Chronic Problems (Last Reviewed 11/23/17 @ 13:04 by Jackson Peter DO) Acute respiratory failure with hypoxia and hypercapnia (Acute) COPD with acute exacerbation (Acute) Gram-negative pneumonia (Acute) Acute hypercapnic respiratory failure (Acute) You will use the following diet at home:: Regular, Cardiac Your liquids should be the consistency of: Regular/Thin Discharge Activity: May Not Drive Allergies/Adverse Reactions: Allergies codeine Allergy (Unknown, Verified 11/23/17 11:02) Unknown lithium Allergy (Unknown, Verified 11/23/17 11:02) Unknown morphine Allergy (Unknown, Verified 11/23/17 11:02) Unknown naproxen [From Naprosyn] Allergy (Unknown, Verified 11/23/17 11:02) Unknown phenobarbital Allergy (Unknown, Verified 11/23/17 11:02) Unknown Sulfa (Sulfonamide Antibiotics) Allergy (Unknown, Verified 11/23/17 11:02) Unknown albuterol Allergy (Verified 11/23/17 11:02) Rash fentanyl Adverse Reaction (Severe, Verified 11/23/17 18:23) Other OD on Fentany patch. Very sensitive to does 75mcg patch Iodine and Iodide Containing Produc Adverse Reaction (Verified 11/23/17 11:02) Unknown Penicillins [PCN] Adverse Reaction (Verified 11/23/17 11:02) Unknown Medications to take at Discharge Amlodipine [Norvasc] 5 mg PO DAILY 07/13/14 Aspirin 81 mg PO DAILY@0800 07/13/14 Atorvastatin Calcium [Lipitor] 80 mg PO QHS 07/13/14 Cyclobenzaprine [Flexeril] 10 mg PO DAILY 07/13/14 Fenofibrate [Tricor] 145 mg PO DAILY 07/13/14 Gabapentin [Neurontin] 300 mg PO BIDCM 07/13/14 Ipratropium/Albuterol Sulfate 2 puff INHALATION 4X/DAY 07/13/14 Tiotropium Bath [Spiriva 18 MCG] 1 puff INHALATION DAILY 07/13/14 Vitamin D 50,000 units PO WE 07/13/14 Fluticasone/Vilanterol [Breo Ellipta 200-25 Mcg INH] 1 ea IH DAILY 12/17/16 Ipratropium [Atrovent Inhaler] 2 puff INHALATION 4X/DAY 12/17/16 Paroxetine HCl [Paxil] 40 mg PO DAILY 12/17/16 diphenhydramine 25 mg tablet 25 mg PO Q6H PRN 03/20/17 nitroglycerin 0.4 mg sublingual tablet 0.4 mg SUBLINGUAL Q5M PRN #25 tab 03/25/17 ranolazine ER 500 mg tablet,extended release,12 hr 500 mg PO BID #180 tab 03/25/17 losartan 50 mg tablet 50 mg PO DAILY #90 tab 10/17/17 clopidogrel 75 mg tablet 75 mg PO DAILY #90 tab 10/23/17 Carvedilol [Coreg (Beta Tata)] 3.125 mg PO BID #60 tab 11/12/17 Cholecalciferol (Vitamin D3) [Vitamin D3] 50,000 unit PO QWEEK 11/23/17 Isosorbide Mononitrate [Imdur] 90 mg PO QDAY 11/23/17 Levalbuterol HCl 0.63 mg INHALATION 4X/DAY PRN 11/23/17 Pantoprazole Sodium [Protonix] 20 mg PO DAILY 11/23/17 buPROPion SR [Wellbutrin SR (150mg tablets)] 150 mg PO DAILY 11/23/17 busPIRone [Buspar] 15 mg PO DAILY 11/23/17 Levofloxacin [Levaquin] 500 mg PO DAILY #3 tablet 11/27/17 Potassium Chloride [K-Dur] 40 meq PO BIDCM #30 tablet 11/27/17 The following prescriptions were given: Levofloxacin [Levaquin] 500 mg PO DAILY #3 tablet Potassium Chloride [K-Dur] 40 meq PO BIDCM #30 tablet Primary Care Physician: Jodi Butler MD [Primary Care Provider] - Please follow up with your Primary Care Physician in: in 1- 2 weeks Test Results: Test results from this visit will be discussed in further detail at your follow-up appointment, if applicable. Please Follow Up With: Melanie Domingo, RUFINOC Please Follow Up With: Jodi Butler MD 11/27/17 1040 <Electronically signed by Davide Villegas MD> Date Davide Villegas MD CC: Franco Breaux MD; Jodi Butler MD 12 LEAD ELECTROCARDIOGRAM Observed: 11/27/2017 Status: F Source: [place] 8:49 AM [facility] REPOSITORY [facility] Cardiovascular Services [address] [place] [address] 12 Lead EKG 11/23/17 1058 MR#: [id number] Acct: [id number] Name: HEATHER MEYERS Rep #: [id number] : 1945 72 From: Kev Huggins MD Attending Dr: Davide Villegas MD Status: ADM IN Ordering Dr: Yuli Goodman MD Date: 11/23/17 Location: [facility] Sex: F C Admitted: 11/23/17 Test Reason : SOB Blood Pressure : / mmHG Vent. Rate : 126 BPM Atrial Rate : 126 BPM P-R Int : 124 ms QRS Dur : 096 ms QT Int : 266 ms P-R-T Axes : 063 034 114 degrees QTc Int : [address] AND T wave abnormality, consider lateral ischemia Abnormal ECG Confirmed by JOSELUIS IVEY, KEV ([id number]), order editor LORI TORRES ([id number]) on 11/27/2017 8:49:36 AM Referred By: Confirmed By:KEV HUGGINS MD 11/27/17 0849 Date Kev Huggins MD CC: Yuli Goodman MD; Jodi Butler MD; Davide Villegas MD Signed BASIC METABOLIC Collected: 11/27/2017 Status: F Source: [place] PROFILE (BMP) 5:40 AM [facility] REPOSITORY Order Comment: SPECIMEN OBTAINED FROM LINE DRAW TYPE CODE TESTS RESULT OUT OF RANGE REFERENCE UNITS LAB L501.0100 74-106 mg/dL Normal GLU 78 Result Comment: Please note revised GLUCOSE reference range effective 2017. LAB L501.1000 7-18 mg/dL High BUN 28 LAB L501.1100 0.55-1.02 mg/dL Normal CREAT,SERUM 0.92 Result Comment: The validity of the calculated GFR AND GFRAA in patients over 70 years has not been determined. Clinical correlation is essential. LAB L501.1110 >60 mL/min Normal EST GFR 64 Result Comment: Non- GFR Calc LAB L501.1115 >60 mL/min Normal EST GFR - AA 77 Result Comment: GFR Calc LAB L501.1255 ml/min Normal Estimated CRCL 45.72 LAB L501.1300 10-20 RATIO High BUN/CRE 30.6 LAB L501.2200 8.5-10 mg/dL Low .1 CA 8.1 LAB L501.5300 136-14 mmol/L High 5 NA 146 LAB L501.5600 3.5-5. mmol/L Low 1 K 3.1 LAB L501.5900 98-107 mmol/L Normal CL 105 LAB L501.6100 21.0-3 mmol/L High 2.0 CO2 33.0 LAB L501.6200 5-15 Normal GAP 8 Performed By: #### L500.2500, L501.2300, L501.5200 #### [facility] [address] [place], [address] PHOSPHORUS Collected: 11/27/2017 Status: F Source: [place] 5:40 AM [facility] REPOSITORY Order Comment: SPECIMEN OBTAINED FROM LINE DRAW TYPE CODE TESTS RESULT OUT OF RANGE REFERENCE UNITS LAB L501.2300 2.5-4.9 mg/dL Normal PHOS 3.1 Performed By: #### L500.2500, L501.2300, L501.5200 #### [facility] [address] [place], [address] MAGNESIUM Collected: 11/27/2017 Status: F Source: [place] 5:40 AM [facility] REPOSITORY Order Comment: SPECIMEN OBTAINED FROM LINE DRAW TYPE CODE TESTS RESULT OUT OF RANGE REFERENCE UNITS LAB L501.5200 1.6-2.6 mg/dL Normal MG 2.0 Performed By: #### L500.2500, L501.2300, L501.5200 #### [facility] [address] [place], [address] M R STAPH AUREUS Collected: 11/25/2017 Status: F Source: [place] DNA BY PCR 8:00 AM [facility] REPOSITORY Order Comment: Comments: Nasal Swab TYPE CODE TESTS RESULT OUT OF RANGE REFERENCE UNITS LAB L8200.1100 Negative Normal MRSA Negative RESULT Performed By: #### L8200.1000 #### [facility] [address] [place], [address] BLOOD GASES BY CPS Collected: 11/25/2017 Status: F Source: [place] 6:04 AM [facility] REPOSITORY TYPE CODE TESTS RESULT OUT OF RANGE REFERENCE UNITS LAB L9000.9990 Normal BLD GAS TYPE ART LAB L9001.1000 Normal SITE R Radial LAB L9001.1048 Normal Mode CPAP PS LAB L9001.1050 O2 Normal Delivery Dev Vent LAB L9001.1074 Normal FI02 30 LAB L9001.1076 Normal PEEP 5 LAB L9001.1078 PS Normal 5 LAB L9001.1104 Normal Results To ICU MD LAB L9001.1105 Normal Time Given 557 LAB L9001.1110 7.35-7.45 pH Normal - I-STAT 7.43 LAB L9001.1210 35-45 mmHg Normal pCO2 - ISTAT 41.0 LAB L9001.1310 75-100 mmHG Low PO2 I-STAT 73 LAB L9001.2300 22-26 mmol/L High HCO3 ISTAT 27.3 LAB L9001.2400 -2 to +2 mmol/L High BE ISTAT 3 LAB L9001.2415 mmol/L Normal TOTAL CO2 29 ISTAT LAB L9001.2425 95-99 % Normal SO2 ISTAT 95 Performed By: #### L9000.0800 #### [facility] Point of Care [address] [place] [address] CONSULTATION Observed: 11/25/2017 Status: F Source: [place] 5:28 AM [facility] REPOSITORY [facility] Medical Records Department [address] [place] [address] Consultation 11/24/17 0700 MR#: [id number] Acct: [id number] Name: HEATHER MEYERS TRINA Rep #: [id number] : 1945 72 From: Franco Breaux MD PCP: Jodi Butler MD Status: ADM IN Y Location: ICU ICU02-1 Problem List (1) Acute respiratory failure with hypoxia and hypercapnia Status: Acute (2) COPD with acute exacerbation Status: Acute (3) Gram-negative pneumonia Status: Acute (4) Acute hypercapnic respiratory failure Status: Acute (5) COPD exacerbation Status: Acute (6) CAD (coronary artery disease) Status: Chronic Qualifiers: Coronary Disease-Associated Artery/Lesion type: [place] artery [place] vs. transplanted heart: [place] heart Associated angina: without angina Qualified Code(s): I25.10 - Atherosclerotic heart disease of [place] coronary artery without angina pectoris Comment: Successful PTCA/SUSAN of the of mid/distal RCA with a 2.25 x 38 Promus Synergy, post dilated proximally with a 3.0 x 12 NC balloon at 8 safia (2.5mm); 75%-->0%, no dissection. Successful PTCA/SUSAN of the proximal RCA with a 2.5 x 20 Promus Synergy, post dilated with a 3.0 x 12 at 14 safia; 75%-->0%, no dissection. (7) Tobacco abuse Status: Chronic (8) Nonrheumatic tricuspid (valve) insufficiency Status: Chronic (9) Nonrheumatic mitral valve insufficiency Status: Chronic (10) Hypertension Status: Chronic Qualifiers: Hypertension type: essential hypertension (11) Hyperlipidemia Status: Chronic Qualifiers: Hyperlipidemia type: pure hypercholesterolemia Qualified Code(s): E78.00 - Pure hypercholesterolemia, unspecified; E78.0 - Pure hypercholesterolemia (12) Peripheral vascular disease Status: Chronic Reason for Consult Date of Consultation: 11/24/17 Reason for Consultation: Respiratory failure History of Present Illness: The patient is a 72 year old F with past medical history listed below, who presented to [facility] on 11/23/2017 secondary to shortness of breath. Patient is currently intubated and unable to provide significant history. Most of the history was per electronic medical records. Patient reportedly had acute onset of shortness of breath upon waking. Patient was placed on a nonrebreather by EMS secondary to hypoxemia was noted to be 96% on presentation. In the emergency room, patient was started on BiPAP and was found to have sinus tachycardia with a heart rate of 126 bpm. Patient was given aerosols and IV Solu-Medrol. Patient does have a reported penicillin allergy, but this was not verified prior to patient requiring intubation given decreased responsiveness on BiPAP. Patient was transferred to the intensive care unit. Overnight, patient has remained hemodynamically stable, but this morning was unable to tolerate more than 30 minutes of spontaneous awakening trial. Patient became tachypneic and tachycardic. Patient was placed back on the ventilator. Patient denied any pain. No family was at the bedside during my evaluation. Patient reportedly had a recent admission to [facility] from November 09- secondary to COPD exacerbation and non-ST elevation IN. Patient is chronically on supplemental oxygen at home, but reportedly continues to smoke. Patient does remove her oxygen to smoke and no inhalation injury was noted on initial presentation by EMS. Review of the medical record shows no current pulmonary evaluation. Patient was not seen by pulmonology during last hospitalization earlier this month. No pulmonary function tests are available for review. Past Medical History Past Medical History (Chronic Problems): Chronic Problems (Last Reviewed 11/23/17 @ 13:04 by Jackson Peter DO) CAD (coronary artery disease) (Chronic) Successful PTCA/SUSAN of the of mid/distal RCA with a 2.25 x 38 Promus Synergy, post dilated proximally with a 3.0 x 12 NC balloon at 8 safia (2.5mm); 75%-->0%, no dissection. Successful PTCA/SUSAN of the proximal RCA with a 2.5 x 20 Promus Synergy, post dilated with a 3.0 x 12 at 14 safia; 75%-->0%, no dissection. Tobacco abuse (Chronic) Nonrheumatic tricuspid (valve) insufficiency (Chronic) Nonrheumatic mitral valve insufficiency (Chronic) Nicotine dependence, cigarettes, uncomplicated (Chronic) Hypertension (Chronic) Hyperlipidemia (Chronic) Atherosclerosis of [place] coronary artery of [place] heart without angina pectoris (Chronic) PTCA/SUSAN to ostium of LMT 10/01/2014 @[facility]; Peripheral vascular disease (Chronic) SOB (shortness of breath) (Chronic) Medical History: Medical History (Last Reviewed 11/23/17 @ 13:04 by Jackson Peter DO) Nonrheumatic tricuspid (valve) insufficiency (Chronic) I36.1 Nonrheumatic mitral valve insufficiency (Chronic) I34.0 Nicotine dependence, cigarettes, uncomplicated (Chronic) F17.210 Hypertension (Chronic) I10 Hyperlipidemia (Chronic) E78.5 Atherosclerosis of [place] coronary artery of [place] heart without angina pectoris (Chronic) I25.10 PTCA/SUSAN to ostium of LMT 10/01/2014 @[facility]; Peripheral vascular disease (Chronic) I73.9 SOB (shortness of breath) (Chronic) R06.02 Anemia D64.9 COPD (chronic obstructive pulmonary disease) J44.9 Diabetes mellitus E11.9 Fibromyalgia M79.7 GERD (gastroesophageal reflux disease) K21.9 Hyperlipidemia E78.5 MARISABEL (obstructive sleep apnea) G47.33 Allergies codeine Allergy (Unknown, Verified 11/23/17 11:02) Unknown lithium Allergy (Unknown, Verified 11/23/17 11:02) Unknown morphine Allergy (Unknown, Verified 11/23/17 11:02) Unknown naproxen [From Naprosyn] Allergy (Unknown, Verified 11/23/17 11:02) Unknown phenobarbital Allergy (Unknown, Verified 11/23/17 11:02) Unknown Sulfa (Sulfonamide Antibiotics) Allergy (Unknown, Verified 11/23/17 11:02) Unknown albuterol Allergy (Verified 11/23/17 11:02) Rash fentanyl Adverse Reaction (Severe, Verified 11/23/17 18:23) Other OD on Fentany patch. Very sensitive to does 75mcg patch Iodine and Iodide Containing Produc Adverse Reaction (Verified 11/23/17 11:02) Unknown Penicillins [PCN] Adverse Reaction (Verified 11/23/17 11:02) Unknown Home Medications: Ambulatory Orders Medication Instructions Recorded Surgical History: Surgical History (Last Reviewed 11/23/17 @ 13:04 by Jackson Peter DO) H/O tubal ligation Z98.51 History of left heart catheterization Z98.890 Hx of appendectomy Z98.890, Z90.49 S/P femoral-femoral bypass surgery Z95.828 with gorortex graft in 2001; removal of infected graft with reconstructions of right superficial artery in 2002 Surgical History: appendectomy, - - cad with stent Psychiatric History: No pertinent psych hx 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 Smoking Status: Current every day smoker - *Family History Maternal Family History: Family History (Last Reviewed 11/23/17 @ 13:04 by Jackson Peter DO) Mother CAD (coronary artery disease) Hypertension Sister CAD (coronary artery disease) Myocardial infarction History Items: Diabetes, Heart Disease, Stroke Paternal Family History: Family History (Last Reviewed 11/23/17 @ 13:04 by Jackson Peter DO) Mother CAD (coronary artery disease) Hypertension Sister CAD (coronary artery disease) Myocardial infarction History Items: Diabetes, Stroke Review of Systems Unable to obtain accurate/complete ROS d/t: Intubated. See HPI. Patient Problems: Active and Suspected Problems (Last Reviewed 11/23/17 @ 13:04 by Jackson Jopperi, DO) Acute respiratory failure with hypoxia and hypercapnia (Acute) COPD with acute exacerbation (Acute) Gram-negative pneumonia (Acute) Acute hypercapnic respiratory failure (Acute) Objective: Chest x-rays were personally reviewed. This does show an endotracheal tube high in the trachea. OG is in good position. Bilateral infiltrates appreciated. Recent echocardiogram completed earlier this month shows an EF of 25% with stage I diastolic dysfunction and severe mitral annular calcification. Right ventricular systolic pressure estimated at 39 mmHg. - Physical Exam General: - - RASS 0. Good ventilator synchrony noted. Appears older than stated age. HEENT: Atraumatic, PERRLA, EOMI, Normocephalic, - - No scleral icterus or injection noted. Oral: Moist Mucosa, No Gingival or Mucosal Lesions/ Ulcerations Neck: Supple, No Nodes, Trachea Midline, JVD, Right Lungs: No rhonchi, Diminished, Rales, Wheezes - Sporadic, - - Symmetric expansion. No dullness to percussion. Cardiovascular: Regular rate, Regular Rhythm, Normal S1, Normal S2, Murmur - Grade 2 out of 6 systolic ejection murmur at the apex, No rub noted, No Gallop Abdomen: Bowel Sounds Present, Soft, Non Tender, Non-Distended Extremities: No cyanosis, No edema, Capillary Refill Less than 3 Seconds, Clubbing Skin: No rashes, No breakdown Musculoskeletal: No Tenderness to Palpation of Joints or Extremities Lymphatic: No Cervical, Supraclavicular, or Inguinal Adenopathy Neurological: Cranial nerves II-XII grossly intact, Neuro grossly intact, Motor Exam 5/5 strength throughout Psych/Mental Status: Appropriate Vital Signs Temp Pulse Resp BP Pulse Ox 36.8 C 73 16 113/62 94 11/24/17 05:00 11/24/17 06:00 11/24/17 06:00 11/24/17 06:00 11/24/17 06:00 Oxygen Delivery Method Mechanical Ventilator Weight: 70.7 kg Body Mass Index (BMI) 27.5 Intake and Output for Last 24 Hours Intake Total 769 / 769 521 / 521 Output Total 450 / 450 100 / 100 Balance 319 / 319 421 / 421 Microbiology Past 72 Hours 11/23/17 19:55 Streptococcus pneumoniae Antigen (M - Final Laboratory Tests Past 24 Hrs Clinical Impression(s) from Imaging Studies Chest X-Ray 11/23/17 10:35 IMPRESSION: Advanced chronic lung disease. Cannot exclude superimposed mild edema and/or atypical infiltrates. Electronically Signed: Linette Pickard MD at 11:38 EDT Tel , Service support , Chest X-Ray 11/23/17 12:57 IMPRESSION: 1. ET tube tip is at the thoracic inlet. 2. OG tube tip is inside the gastric cavity but the sidehole is at the EEG junction. Distal repositioning will help. 3. COPD with chronic interstitial lung disease. This is unchanged when compared to 11/23/2017 at 11:09 AM. Electronically Signed: Israel Perdue MD at 16:07 EDT , Service support , Chest X-Ray 11/23/17 16:24 IMPRESSION: Stable appearance of the chest. New right internal jugular catheter with tip projected into the mid-SVC. No complications noted. Electronically Signed: Jacob Garay MD at 17:09 EDT , Service support , Assessment/Plan Active and Suspected Problems (Last Reviewed 11/23/17 @ 13:04 by Jackson Peter DO) Acute respiratory failure with hypoxia and hypercapnia (Acute) COPD with acute exacerbation (Acute) Gram-negative pneumonia (Acute) Acute hypercapnic respiratory failure (Acute) RECOMMENDATIONS: 1. Obtain sputum culture 2. Advanced endotracheal tube 2 cm 3. Gentle diuresis 4. Continue antibiotics, Solu-Medrol and bronchodilators 5. Spontaneous awakening and breathing trials per protocol 6. Initiate tube feeds IMPRESSIONS: 1. Acute on chronic combined respiratory failure secondary to probable COPD exacerbation Patient with bilateral infiltrates noted on chest x-ray. Patient's endotracheal tube is high and needs to be advanced 2 cm. Patient will benefit from a gentle diuresis. Obtain sputum culture. Continue aggressive pulmonary toileting, IV steroids and bronchodilators. Wean oxygen as tolerated. Spontaneous awakening and breathing trials per protocol. Likely okay to initiate tube feeds. Will check MRSA swab to see if vancomycin can be discontinued. 2. Acute on chronic systolic congestive heart failure/coronary artery disease Last known ejection fraction of 25%. Patient does have an elevation of troponin, but this likely represents supply demand mismatch. Patient did have a recent heart catheterization with stent placement. Defer to hospitalist on whether cardiology needs to be involved. Patient should remain on medical therapy. Plavix in place. 3. Tobacco abuse despite oxygen therapy/hypertension/hyperlipidemia/peripheral vascular disease/recent non-ST elevation IN Complicates care, management, recovery and prognosis. Unclear baseline respiratory status and whether oxygen is secondary to congestive heart failure or advanced COPD. Patient would benefit from outpatient pulmonary function tests, smoking cessation and optimization of saturations. Likely okay to continue with baseline medications. TIME: 35 minutes critical care time spent addressing patient's acute on chronic combined respiratory failure, CHF, review of all data and collaboration with care team (6 AM to 7 AM) Code Visit 9xxxx: [id number] Critical care first hour 11/25/17 0528 <Electronically signed by Franco Breaux MD> Date Franco Breaux MD Cosigner Signature (if applicable): Date CC: Franco Breaux MD; Jodi Butler MD Signed CBC W/DIFF, AUTOMATED Collected: 11/25/2017 Status: F Source: [place] 4:08 AM [facility] REPOSITORY TYPE CODE TESTS RESULT OUT OF RANGE REFERENCE UNITS LAB L100.1000 4.4-11.0 K/mm3 High WBC 14.2 LAB L100.1200 4.2-5.4 M/mm3 Low RBC 3.24 LAB L100.1300 12.0-15.0 g/dl Low HGB 9.6 LAB L100.1400 37-47 % Low HCT 31.1 LAB L100.1500 81-99 fL Normal MCV 96.0 LAB L100.1600 27.0-32.0 pg Normal MCH 29.6 LAB L100.1700 32-36 g/gl Low MCHC 30.9 LAB L100.1810 11.6-14.6 % High RDW CV 14.9 LAB L100.1820 35.1-43.9 fl High RDW SD 49.3 LAB L100.1900 150-450 K/mm3 Normal PLT 375 LAB L100.2000 6.2-12.0 fl Normal MPV 9.5 LAB L100.2100 47-70 % High NEUT% 90.7 LAB L100.2200 19-41 % Low LY% 5.9 LAB L100.2300 0-10 % Normal MONO% 2.7 LAB L100.2400 0-5 % Normal EO% 0.0 LAB L100.2500 0-1 % Normal BASO% 0.1 LAB L100.2550 0.0-0.9 % Normal IM GRAN % 0.600 Result Comment: IG% - Immature Granulocytes (promyelocytes, myelocytes and metamyelocytes) > 1% indicates that a LEFT SHIFT is Present. LAB L100.2620 2.0-7.7 X10 3/uL High Absolute Neut 12.9 LAB L100.2720 0.83-4.51 X10 3/ul Normal Absolute Lymph 0.84 Performed By: #### L100.0100 #### [facility] [address] [place], [place], [id number] BASIC METABOLIC Collected: 11/25/2017 Status: F Source: [place] PROFILE (BMP) 4:08 AM [facility] REPOSITORY TYPE CODE TESTS RESULT OUT OF RANGE REFERENCE UNITS LAB L501.0100 74-106 mg/dL Normal GLU 98 Result Comment: Please note revised GLUCOSE reference range effective 2017. LAB L501.1000 7-18 mg/dL High BUN 25 LAB L501.1100 0.55-1.02 mg/dL Normal CREAT,SERUM 0.91 Result Comment: The validity of the calculated GFR AND GFRAA in patients over 70 years has not been determined. Clinical correlation is essential. LAB L501.1110 >60 mL/min Normal EST GFR 65 Result Comment: Non- GFR Calc LAB L501.1115 >60 mL/min Normal EST GFR - AA 78 Result Comment: GFR Calc LAB L501.1255 ml/min Normal Estimated CRCL 46.23 LAB L501.1300 10-20 RATIO High BUN/CRE 27.6 LAB L501.2200 8.5-10 mg/dL Low .1 CA 7.7 LAB L501.5300 136-14 mmol/L Normal 5 NA 142 LAB L501.5600 3.5-5. mmol/L Normal 1 K 3.8 LAB L501.5900 98-107 mmol/L Normal CL 106 LAB L501.6100 21.0-3 mmol/L Normal 2.0 CO2 28.0 LAB L501.6200 5-15 Normal GAP 8 Performed By: #### L500.2500, L501.2300, L501.5200 #### [facility] [address] [place], [address] PHOSPHORUS Collected: 11/25/2017 Status: F Source: [place] 4:08 AM [facility] REPOSITORY TYPE CODE TESTS RESULT OUT OF RANGE REFERENCE UNITS LAB L501.2300 2.5-4.9 mg/dL Low PHOS 2.4 Performed By: #### L500.2500, L501.2300, L501.5200 #### [facility] [address] [place], [address] MAGNESIUM Collected: 11/25/2017 Status: F Source: [place] 4:08 AM [facility] REPOSITORY TYPE CODE TESTS RESULT OUT OF RANGE REFERENCE UNITS LAB L501.5200 1.6-2.6 mg/dL Normal MG 2.2 Performed By: #### L500.2500, L501.2300, L501.5200 #### [facility] [address] [place], [address] Observed: 11/24/2017 Status: F Source: [place] CULTURE, SPUTUM 7:10 AM [facility] REPOSITORY Gram Stain Acceptable Specimen? Acceptable Specimen(Evaluation not needed) Gram Stain 2+ White Blood Cells No organisms seen Resp. Culture ORGANISM 1: Presumptive C albicans Amount Growth 2+ ORGANISM 2: Burkholderia cepacia Amount Growth 1+ Burkholderia cepacia: REACTION Amikacin $ <=2 S Aztreonam $$$ 32 R Cefepime $ <=1 S Ceftazidime *NF 4 S Ceftriaxone $ 8 S Ciprofloxacin $ <=0.25 S Gentamicin $ <=1 S Imipenem *NF 0.5 S Levofloxacin $ <=0.12 S Meropenem $ <=0.25 S Piperacillin/Tazobactam $$ <=4 S Tobramycin $ <=1 S Trimethoprim/Sulfametho $ <=20 S (NF) indicates non-formulary drug at [facility]. Approval by Infectious Disease Specialist required before non-formulary drugs may be ordered and/or dispensed. Performed By: #### M100.0800 #### [facility] [address] [facility] [place], [address] CBC-COMPLETE BLOOD CNT Collected: 11/24/2017 Status: F Source: [place] NO DIFF 3:55 AM [facility] REPOSITORY TYPE CODE TESTS RESULT OUT OF RANGE REFERENCE UNITS LAB L100.1000 4.4-11.0 K/mm3 High WBC 12.6 LAB L100.1200 4.2-5.4 M/mm3 Low RBC 2.99 LAB L100.1300 12.0-15.0 g/dl Low HGB 9.0 LAB L100.1400 37-47 % Low HCT 28.8 LAB L100.1500 81-99 fL Normal MCV 96.3 LAB L100.1600 27.0-32.0 pg Normal MCH 30.1 LAB L100.1700 32-36 g/gl Low MCHC 31.3 LAB L100.1810 11.6-14.6 % High RDW CV 14.8 LAB L100.1820 35.1-43.9 fl High RDW SD 48.6 LAB L100.1900 150-450 K/mm3 Normal PLT 358 LAB L100.2000 6.2-12.0 fl Normal MPV 9.0 Performed By: #### L100.0500 #### [facility] [address] [place], [place], [address] BASIC METABOLIC Collected: 11/24/2017 Status: F Source: [place] PROFILE (BMP) 3:55 AM [facility] REPOSITORY TYPE CODE TESTS RESULT OUT OF RANGE REFERENCE UNITS LAB L501.0100 74-106 mg/dL High GLU 111 Result Comment: Fasting Glucose result from 100 to 125 mg/dL suggests IMPAIRED HOMEOSTASIS per A.D.A. criteria. Please note revised GLUCOSE reference range effective 2017. LAB L501.1000 7-18 mg/dL High BUN 24 LAB L501.1100 0.55-1.02 mg/dL Normal CREAT,SERUM 1.00 Result Comment: The validity of the calculated GFR AND GFRAA in patients over 70 years has not been determined. Clinical correlation is essential. LAB L501.1110 >60 mL/min Low EST GFR 58 Result Comment: Non- GFR Calc LAB L501.1115 >60 mL/min Normal EST GFR - AA 70 Result Comment: GFR Calc LAB L501.1255 ml/min Normal Estimated CRCL 40.22 LAB L501.1300 10-20 RATIO High BUN/CRE 24.1 LAB L501.2200 8.5-10 mg/dL Low .1 CA 7.8 LAB L501.5300 136-14 mmol/L Normal 5 NA 145 LAB L501.5600 3.5-5. mmol/L Normal 1 K 4.3 LAB L501.5900 98-107 mmol/L High CL 109 LAB L501.6100 21.0-3 mmol/L Normal 2.0 CO2 29.0 LAB L501.6200 5-15 Normal GAP 7 Performed By: #### L500.2500 #### [facility] [address] [facility] [facility] [place], [address] TROPONIN-I Collected: 11/23/2017 Status: F Source: [place] 9:30 PM [facility] REPOSITORY TYPE CODE TESTS RESULT OUT OF RANGE REFERENCE UNITS LAB L501.4010 <0.045 ng/mL High 0.454 TROPONIN-I Result Comment: TROPONIN-I EXPECTED VALUES <0.045 Negative 0.045 - 0.590 Consistent with Cardiac Damage > OR = 0.600 Critical Value Not every elevated troponin is indicative of IN. These values should be used with clinical judgement in examining the patient's clinical picture for diagnosis. To establish a diagnosis of [place] versus myocardial injury, there must be a demonstrated rise and/or fall in the troponin values, in addition to ischemic symptoms, EKG changes, new regional wall motion abnormality, and/or angiographical evidence. PLEASE NOTE: REFERENCE RANGES EDITED 17 Performed By: #### L501.4010 #### [facility] [address] [facility] [facility] [place], [address] Observed: 11/23/2017 Status: F Source: [place] LEGIONELLA ANTIGEN 7:55 PM [facility] URINE REPOSITORY Legionella, UR Legionella Antigen result interpretation: Negative Presumptive negative for Legionella pneumophila serogroup 1 antigen in urine, suggesting no recent or current infection. POSITIVE Presumptive positive for Legionella pneumophila serogroup 1 antigen in urine, suggesting current or past infection. Legionella Ag, Urine Negative (See interpretation below) Performed By: #### M300.4500 #### [facility] [address] [place], [address] STREP Observed: 11/23/2017 Status: F Source: [place] PNEUMONIAE ANTIG(UR,CSF) 7:55 PM [facility] REPOSITORY S pneumo Ag URINE INTERPRETATION Positive Urine Positive for pneumococcal pneumonia. Negative Urine Presumptive negative for pneumococcal pneumonia, suggesting no current or recent pneumococcal infection. Infection due to S pneumoniae cannot be ruled out since the antigen present in the sample may be below the detection limit of the test. CSF INTERPRETATION Positive CSF Positive for pneumococcal meningitis. Negative CSF Presumptive negative for pneumococcal meningitis. Infection due to S pneumoniae cannot be ruled out since the antigen present in the sample may be below the detection limit of the test. Strep pneumo Test Negative URINE (See interpretation below) Performed By: #### M300.4600 #### [facility] [address] [place], [address] BLOOD GASES BY CPS Collected: 11/23/2017 Status: F Source: [place] 6:35 PM [facility] REPOSITORY TYPE CODE TESTS RESULT OUT OF RANGE REFERENCE UNITS LAB L9000.9990 Normal BLD GAS TYPE ART LAB L9001.1000 R Normal SITE Brachial LAB L9001.1010 NA Normal KESHAWN TEST LAB L9001.1048 Normal Mode A-C LAB L9001.1050 O2 Normal Delivery Dev Vent LAB L9001.1065 Vt Normal 450 LAB L9001.1070 RR 12 Normal LAB L9001.1074 40 Normal FI02 LAB L9001.1076 5 Normal PEEP LAB L9001.1104 Normal Results To HOSP MD LAB L9001.1105 Normal Time Given 1830 LAB L9001.1110 7.35-7.45 pH Normal - I-STAT 7.39 LAB L9001.1210 35-45 mmHg High pCO2 - ISTAT 45.1 LAB L9001.1310 75-100 mmHG 84 Normal PO2 I-STAT LAB L9001.2300 22-26 mmol/L High HCO3 ISTAT 27.5 LAB L9001.2400 -2 to +2 mmol/L High BE 3 ISTAT LAB L9001.2415 mmol/L 29 Normal TOTAL CO2 ISTAT LAB L9001.2425 95-99 % 96 Normal SO2 ISTAT Performed By: #### L9000.0800 #### [facility] Point of Care [address] [facility] [place] [address] Observed: 11/23/2017 Status: F Source: [place] [facility]ENZA [facility] REPOSIT[facility] FLU A/B Rapid Negative test results should be confirmed by culture. Order Rapid Viral Culture for Influenzae A+B ([id number]) if clinically indicated. Influenza Ag, Direct Presumptive NEGATIVE for Influenza A/B Antigen (See Note) Performed By: #### M101.0101 #### [facility] [address] [facility] [address] [place], [place], [address] TROPONIN-I Collected: 11/23/2017 Status: F Source: [place] 6:30 PM [facility] REPOSITORY TYPE CODE TESTS RESULT OUT OF RANGE REFERENCE UNITS LAB L501.4010 <0.045 ng/mL High 0.382 TROPONIN-I Result Comment: TROPONIN-I EXPECTED VALUES <0.045 Negative 0.045 - 0.590 Consistent with Cardiac Damage > OR = 0.600 Critical Value Not every elevated troponin is indicative of [place]. These values should be used with clinical judgement in examining the patient's clinical picture for diagnosis. To establish a diagnosis of [place] versus myocardial injury, there must be a demonstrated rise and/or fall in the troponin values, in addition to ischemic symptoms, EKG changes, new regional wall motion abnormality, and/or angiographical evidence. PLEASE NOTE: REFERENCE RANGES EDITED 17 Performed By: #### L501.4010 #### [facility] [address] [facility] [place], [address] OPERATIVE REPORT Observed: 11/23/2017 Status: F Source: [place] 4:32 PM [facility] REPOSITORY [facility] [facility] Medical Records Department [address] [place] [address] Operative Report 11/23/17 1616 MR#: [id number] Acct: [id number] Name: HEATHER MEYERS Rep #: [id number] : 1945 72 From: Jackson Peter DO PCP: Jodi Butler MD Status: ADM IN Y Location: ICU [place] [address] Problem List (1) COPD with acute exacerbation Status: Acute (2) Gram-negative pneumonia Status: Acute (3) Acute hypercapnic respiratory failure Status: Acute Operative Report Date of Procedure: 11/23/17 Procedure: Right IJ triple-lumen catheter Indication: IV access in critically ill patient Description: Area was prepped and draped in a sterile fashion. Site was locally anesthetized with lidocaine. Using ultrasound guidance, the right internal jugular vein was identified and then accessed. Guidewire was advanced and using modified Seldinger technique triple lumen catheter was advanced over the guidewire. All ports flushed and joselito well. Triple-lumen catheter was sutured in place. Patient tolerated the procedure well. Estimated blood loss: 5 cc Follow-up chest x-ray: Right IJ triple lumen catheter above the atrium. No pneumothorax. Code Visit Procedures: [id number] Insert Non-tunnel CV Cath 11/23/17 1632 <Electronically signed by Jackson Peter DO> Date Jackson Peter DO CC: Jodi Butler MD; Jackson Peter DO Signed CHEST 1 VIEW Observed: 11/23/2017 Status: F Source: [place] 4:09 PM [facility] REPOSITORY [facility] Imaging Services [address] [place] [address] Chest 1 View MR#: [id number] Acct: [id number] Name: HEATHER MEYERS Rep #: [id number] : 1945 F 72 From: Jacob Garay MD PCP: Jodi Butler MD Status: ADM IN Study: Chest 1 View Date of Exam: 11/23/17 Exam# [id number] Ordering Dr: Jackson Peter DO STUDY: X-RAY CHEST REASON FOR EXAM: Female, 72 years old. Central line placement verification. TECHNIQUE: Single frontal view of the chest. COMPARISON: November 23, 2017 FINDINGS: Endotracheal tube tip is approximately 7.5 cm above the neeru. Tip of the NG tube cannot be seen. A new right internal jugular catheter has been inserted with the tip projected into the mid-SVC. There is stable hyperexpansion with a diffuse interstitial pattern. There is no demonstrated pleural abnormality. There is stable cardiomegaly. Normal mediastinum and danielle. Normal visualized pulmonary arteries. Normal visualized aortic arch and descending thoracic aorta. Normal visualized thoracic spine. Normal visualized ribs, clavicles, and shoulders. There is no demonstrated abnormality of the visualized soft tissue structures of the upper abdomen. RAD/Chest 1 View IMPRESSION: Stable appearance of the chest. New right internal jugular catheter with tip projected into the mid-SVC. No complications noted. Electronically Signed: Jacob Garay MD at 17:09 EDT , Service support , CC: Jodi Butler MD; Jackson Peter DO [employer]: Signed HISTORY AND PHYSICAL Observed: 11/23/2017 Status: F Source: [place] EXAM 1:12 PM [facility] REPOSITORY [facility] Medical Records Department [address] [place] [address] History and Physical 11/23/17 1259 MR#: [id number] Acct: [id number] Name: HEATHER MEYERS Rep #: [id number] : 1945 72 From: Jackson Peter DO PCP: Jodi Butler MD Status: ADM IN Y Location: ICU ICU02-1 Problem List (1) COPD with acute exacerbation Status: Acute (2) Gram-negative pneumonia Status: Acute (3) Acute hypercapnic respiratory failure Status: Acute History of Present Illness Date of Admission: 11/23/17 Chief Complaint: shortness of breath. The patient is a 72 year old F presents with shortness of breath. Patient is intubated and unable to provide any history no family is present at bedside so history is obtained through the emergency room physician. Essentially, this is a 72-year-old white female presents with shortness of breath that began this morning. EMS was called patient was brought to the hospital. Patient was becoming more somnolent so the decision was to intubate the patient. Patient was initially put on BiPAP. Patient had a white count of 24,000. Chest x-ray was concerning for edema versus infiltrates and received aztreonam, Levaquin and vancomycin. Patient also received steroids. Patient has noted allergy to albuterol so patient did receive her Xopenex that she takes at home. She was just discharged on the 11th fraction. Patient at that time received 2 drug-eluting stents to the mid and distal RCA. [] Past Medical History Past Medical History (Chronic Problems): Chronic Problems (Last Reviewed 11/23/17 @ 13:04 by Jackson Peter DO) Nonrheumatic tricuspid (valve) insufficiency (Chronic) Nonrheumatic mitral valve insufficiency (Chronic) Nicotine dependence, cigarettes, uncomplicated (Chronic) Hypertension (Chronic) Hyperlipidemia (Chronic) Atherosclerosis of [place] coronary artery of [place] heart without angina pectoris (Chronic) PTCA/SUSAN to ostium of LMT 10/01/2014 @[facility]; Peripheral vascular disease (Chronic) SOB (shortness of breath) (Chronic) Medical History: Medical History (Last Reviewed 11/23/17 @ 13:04 by Jackson Peter DO) Nonrheumatic tricuspid (valve) insufficiency (Chronic) I36.1 Nonrheumatic mitral valve insufficiency (Chronic) I34.0 Nicotine dependence, cigarettes, uncomplicated (Chronic) F17.210 Hypertension (Chronic) I10 Hyperlipidemia (Chronic) E78.5 Atherosclerosis of [place] coronary artery of [place] heart without angina pectoris (Chronic) I25.10 PTCA/SUSAN to ostium of LMT 10/01/2014 @[facility]; Peripheral vascular disease (Chronic) I73.9 SOB (shortness of breath) (Chronic) R06.02 Anemia D64.9 COPD (chronic obstructive pulmonary disease) J44.9 Diabetes mellitus E11.9 Fibromyalgia M79.7 GERD (gastroesophageal reflux disease) K21.9 Hyperlipidemia E78.5 MARISABEL (obstructive sleep apnea) G47.33 Allergies codeine Allergy (Unknown, Verified 11/23/17 11:02) Unknown fentanyl Allergy (Unknown, Verified 11/23/17 11:02) Unknown lithium Allergy (Unknown, Verified 11/23/17 11:02) Unknown morphine Allergy (Unknown, Verified 11/23/17 11:02) Unknown naproxen [From Naprosyn] Allergy (Unknown, Verified 11/23/17 11:02) Unknown phenobarbital Allergy (Unknown, Verified 11/23/17 11:02) Unknown Sulfa (Sulfonamide Antibiotics) Allergy (Unknown, Verified 11/23/17 11:02) Unknown albuterol Allergy (Verified 11/23/17 11:02) Rash Iodine and Iodide Containing Produc Adverse Reaction (Verified 11/23/17 11:02) Unknown Penicillins [PCN] Adverse Reaction (Verified 11/23/17 11:02) Unknown Home Medications: Ambulatory Orders Medication Instructions Recorded Surgical History: Surgical History (Last Reviewed 11/23/17 @ 13:04 by Jackson Peter DO) H/O tubal ligation Z98.51 History of left heart catheterization Z98.890 Hx of appendectomy Z98.890, Z90.49 S/P femoral-femoral bypass surgery Z95.828 with gorortex graft in 2001; removal of infected graft with reconstructions of right superficial artery in 2002 Surgical History: appendectomy, - - cad with stent Psychiatric History: No pertinent psych hx 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 Smoking Status: Current every day smoker - Her history, patient intubated unable to specify what in how much she smokes - *Family History Maternal Family History: Family History (Last Reviewed 11/23/17 @ 13:04 by Jackson Peter DO) Mother CAD (coronary artery disease) Hypertension Sister CAD (coronary artery disease) Myocardial infarction History Items: Diabetes, Heart Disease, Stroke Paternal Family History: Family History (Last Reviewed 11/23/17 @ 13:04 by Jackson Peter DO) Mother CAD (coronary artery disease) Hypertension Sister CAD (coronary artery disease) Myocardial infarction History Items: Diabetes, Stroke Review of Systems Unable to obtain accurate/complete ROS d/t: Unable to obtain as the patient is intubated and sedated. VTE Information - Inpt Only VTE Present on Admission: No VTE Mechan Device Prophylaxis: SCD's VTE Pharm Prophylaxis ordered?: Yes Patient Problems: Active and Suspected Problems (Last Reviewed 11/23/17 @ 13:04 by Jackson Peter DO) Acute respiratory failure with hypoxia and hypercapnia (Acute) COPD with acute exacerbation (Acute) Gram-negative pneumonia (Acute) Acute hypercapnic respiratory failure (Acute) - Physical Exam General: - - Intubated and sedated. HEENT: Atraumatic, Normocephalic, - - No scleral icterus Oral: - - The tracheal tube in place Neck: No Nodes, Thyroid Normal Size and Texture Lungs: Diminished, Wheezes Cardiovascular: Regular rate, Regular Rhythm, Normal S1, Normal S2, No murmurs Abdomen: Bowel Sounds Present, Soft, Non Tender, Non-Distended, No Hepato-splenomegaly Extremities: No edema, No Calf Tenderness Skin: No rashes, No breakdown Musculoskeletal: No Tenderness to Palpation of Joints or Extremities, No Muscle Wasting Neurological: - - Limited given patient's sedated status. No clonus. Psych/Mental Status: - - Debated and sedated Vital Signs Temp Pulse Resp BP Pulse Ox 35.9 C L 99 20 H 127/78 H 99 11/23/17 10:31 11/23/17 11:58 11/23/17 11:58 11/23/17 11:58 11/23/17 11:58 EKG reviewed and showed normal sinus rhythm with out any acute changes. Chest x-ray reviewed and showed flattening of the diaphragms bilaterally pulmonary vascular congestion versus infiltrate. Clinical Impression(s) from Imaging Studies Chest X-Ray 11/23/17 10:35 IMPRESSION: Advanced chronic lung disease. Cannot exclude superimposed mild edema and/or atypical infiltrates. Electronically Signed: Linette Pickard MD at 11:38 EDT Tel , Service support , Assessment/Plan All Active Problems (Last Reviewed 11/23/17 @ 13:04 by Jackson Peter DO) Acute respiratory failure with hypoxia and hypercapnia (Acute) COPD with acute exacerbation (Acute) Gram-negative pneumonia (Acute) Acute hypercapnic respiratory failure (Acute) NSTEMI (non-ST elevated myocardial infarction) (Acute) COPD exacerbation (Acute) CAD (coronary artery disease) (Acute) Tobacco abuse (Acute) Congestive heart failure (Acute) 1. Acute hypercapnic respiratory failure * Suspect due to COPD exacerbation as well as pneumonia. Clinically I am not sure the patient has any heart active heart failure though she does have an elevated BNP * Plan is to treat the COPD and pneumonia at this point in time * Patient is intubated and currently on a ventilator * Pulmonology on consultation for further assistance in ventilator management 2. Acute COPD exacerbation * Steroids * Patient has rash with albuterol so patient will continue with her Xopenex * Will need to address smoking cessation 3. Suspected gram-negative pneumonia * Check urinary antigens for Streptococcus and Legionella, check sputum culture * Pulmonary toilet * Aztreonam, as patient has a penicillin allergy, and vancomycin 4. Heart failure with reduced ejection fraction * Given the patient's current status will hold off on any diuretics at this point in time * I am not sure much of her symptoms are directly treatable to an acute exacerbation at this time * Previous ejection fraction was 25% from echocardiogram on November 09 * Continue with carvedilol and losartan 5. Coronary artery disease * Recent drug-eluting stents to the distal and mid RCA on November 11 * Continue with dual antiplatelet therapy * Follow-up with cardiology as outpatient * Initial troponin was negative, cycle 2 additional troponins * If any acute issues arise while the patient is hospitalized, consult cardiology 6. DVT prophylaxis with Lovenox Code Visit Inpatient E AND M: 83892 Init Hosp 11/23/17 1312 <Electronically signed by Jackson Peter DO> Date [facility]: Date (if applicable) CC: Jodi Butler MD; Jackson Peter DO Signed CHEST 1 VIEW Observed: 11/23/2017 Status: F Source: [place] 12:55 PM [facility] REPOSITORY [facility] Imaging Services [address] [place] [address] Chest 1 View MR#: [id number] Acct: [id number] Name: HEATHER MEYERS Rep #: [id number] : 1945 F 72 From: Israel Perdue MD PCP: Jodi Butler MD Status: ADM IN Study: Chest 1 View Date of Exam: 11/23/17 Exam# [id number] Ordering Dr: Yuli Goodman MD STUDY: X-RAY CHEST REASON FOR EXAM: Female, 72 years old. ET tube placement and OG placement. TECHNIQUE: AP supine portable view. COMPARISON: 11/23/2017. FINDINGS: ET tube tip is at the thoracic inlet. OG tube tip is inside the gastric cavity but the sidehole is at the EG junction. Pulmonary hyperinflation. Mild pulmonary fibrosis in the lower lobes. They are chronic and unchanged. There is no demonstrated pleural abnormality. Normal size heart. Normal mediastinum and danielle. Normal visualized pulmonary arteries. Normal visualized aortic arch and descending thoracic aorta. Normal visualized thoracic spine. Normal visualized ribs, clavicles, and shoulders. There is no demonstrated abnormality of the visualized soft tissue structures of the upper abdomen. RAD/Chest 1 View IMPRESSION: 1. ET tube tip is at the thoracic inlet. 2. OG tube tip is inside the gastric cavity but the sidehole is at the EEG junction. Distal repositioning will help. 3. COPD with chronic interstitial lung disease. This is unchanged when compared to 11/23/2017 at 11:09 AM. Electronically Signed: Israel Perdue MD at 16:07 EDT , Service support , CC: Yuli Goodman MD; Jodi Butler MD [employer]: Signed EMERGENCY DEPARTMENT Observed: 11/23/2017 Status: F Source: [place] SUMMARY 12:29 PM [facility] REPOSITORY [facility] Medical Records Department [address] [place] [address] Emergency Department Summary 11/23/17 1223 MR#: [id number] Acct: [id number] Name: HEATHER MEYERS Rep #: [id number] : 1945 72 From: Yuli Goodman MD PCP: Jodi Butler MD Status: REG ER - ER Visit Summary Date of Service: 11/23/17 Chief Complaint: Shortness of breath History of Present Illness: The patient is a 72 F presenting by EMS for shortness of breath. This started this morning. Per EMS she was walking around at home and became short of breath. EMS was called. She was put on nonrebreather per EMS. She had a recent admission from November 09 - November 12 for COPD exacerbation and NSTEMI. Patient denies chest pain. She is chronically on home O2. She takes her oxygen off to smoke. Physical Examination: Vitals are stable. Heart rate 127, respiratory rate 40, 96% on nonrebreather. patient is afebrile. HEENT exam is unremarkable. Neck is supple. Lungs are wheezing bilaterally. Accessory muscle use, retractions. Heart is regular and tachycardic Abdomen is soft nontender nondistended. Extremities are unremarkable. Skin is warm and dry. No focal neurologic deficit. Remainder of exam is unremarkable. Emergency Department Course and Treatment: Patient was started on BiPAP on her arrival. EKG is sinus tachycardia rate of 126. Patient was given albuterol, Atrovent aerosol. She was given Solu-Medrol IV. Chest x-ray shows advanced chronic lung disease. Cannot exclude superimposed mild edema and/or atypical infiltrates. She was given Levaquin, aztreonam, vancomycin to cover for HCAP with penicillin allergy. CBC showed white count of 24.4. Glucose 293, creatinine 1.21. Troponin is negative. While in the emergency department patient began to have decreased responsiveness while on BiPAP. She is agreeable to intubation. She was given etomidate and succinylcholine. She was intubated with a 7.5 ET tube. Equal breath sounds bilaterally. Discussed with the hospitalist for admission. Disposition: Admission Impression: Respiratory failure, COPD, intubation by ED physician This note was generated with Dragon dictation software. It may contain incorrect words, spelling, and punctuation that were not noted in review of the chart prior to signing ED Disposition - Plan for ED Patient: Chief Complaint: Shortness of Breath Referrals: Jodi Butler MD [Primary Care Provider] - What to do if you have Problems For any increased pain, shortness of breath, bleeding, nausea or vomiting, chest pain, or any unexpected problems, contact your Primary Care Provider. Call [facility] ([phone]) or report to the closest Emergency Room. Call 911 if necessary. 11/23/17 1229 <Electronically signed by Yuli Goodman MD> Date Yuli Goodman MD Cosigner Signature (If Indicated): Date CC: Jodi Btuler MD VENOUS BLOOD GAS Collected: 11/23/2017 Status: F Source: [place] 11:11 AM [facility] REPOSITORY TYPE CODE TESTS RESULT OUT OF RANGE REFERENCE UNITS LAB L9000.9990 Normal BLD GAS TYPE [place]GO LAB L9001.1000 Normal SITE L Radial LAB L9001.1050 O2 Normal Delivery Dev Bi / C PAP LAB L9001.1070 RR Normal 12 LAB L9001.1074 Normal FI02 75 LAB L9001.1088 Normal IPAP 10 LAB L9001.1090 Normal EPAP 5 LAB L9001.1104 Normal Results To ED LAB L9001.1105 Normal Time Given 1100 LAB L9002.1110 7.32-7.42 Low VBGpH - I-STAT 7.28 LAB L9002.1212 41-51 mmHg High VBG pCO2 - 62.1 ISTA LAB L9002.1310 25-40 mmHg High VBG PO2 I-STAT 93 LAB L9002.2300 22-26 mmol/L High VBG HCO3 ISTAT 29 LAB L9002.2400 -1.0-3.5 mmol/L Normal VBG BE ISTAT 2 LAB L9002.2410 50-70 % High VBG SO2 ISTAT 96 LAB L9002.2415 23-33 mmol/L Normal VBG O2 CT 31 ISTAT Performed By: #### L9000.0810 #### [facility] [place] [address] CBC W/DIFF, AUTOMATED Collected: 11/23/2017 Status: C Source: [place] 11:01 AM [facility] REPOSITORY TYPE CODE TESTS RESULT OUT OF RANGE REFERENCE UNITS LAB L100.1000 4.4-11.0 K/mm3 High WBC 24.4 LAB L100.1200 4.2-5.4 M/mm3 Low RBC 4.15 LAB L100.1300 12.0-15.0 g/dl Normal HGB 12.1 LAB L100.1400 37-47 % Normal HCT 39.6 LAB L100.1500 81-99 fL Normal MCV 95.4 LAB L100.1600 27.0-32.0 pg Normal MCH 29.2 LAB L100.1700 32-36 g/gl Low MCHC 30.6 LAB L100.1810 11.6-14.6 % High RDW CV 14.9 LAB L100.1820 35.1-43.9 fl High RDW SD 51.2 LAB L100.1900 150-450 K/mm3 High PLT 640 LAB L100.2000 6.2-12.0 fl Normal MPV 9.5 LAB L100.2100 47-70 % Normal NEUT% 69.7 LAB L100.2200 19-41 % Normal LY% 20.9 LAB L100.2300 0-10 % Normal MONO% 6.2 LAB L100.2400 0-5 % Normal EO% 1.8 LAB L100.2500 0-1 % Normal BASO% 0.2 LAB L100.2550 0.0-0.9 % High IM GRAN % 1.200 Result Comment: IG% - Immature Granulocytes (promyelocytes, myelocytes and metamyelocytes) > 1% indicates that a LEFT SHIFT is Present. LAB L100.2620 2.0-7.7 X10 3/uL High Absolute Neut 17.0 LAB L100.2720 0.83-4.51 X10 3/ul High Absolute Lymph 5.10 LAB L100.4500 Normal SMEAR COMMENT SCANNED Result Comment: ELEVATED LEUKOCYTES NOTED LAB L100.5500 ADEQ Normal MKD PLT INC EST LAB L100.9900 Normal PATH Reviewed REV Result Comment: Leukocytosis, Neutrophilic left shift. Thrombocytosis. Clinical correlation necessary. Emmett Chavez M.D. 11/25/17 AMENDED REPORT 11/25/17 1243 PATH REV previously reported as: July naga Performed By: #### L100.0100, L100.4425 #### [facility] [address] [place], [address] NRBC PANEL Collected: 11/23/2017 Status: F Source: [place] 11:01 AM [facility] REPOSITORY TYPE CODE TESTS RESULT OUT OF RANGE REFERENCE UNITS LAB L100.4450 0-5 % Normal NRBC, FLAGGED 0.3 LAB L100.4455 0-5 10 3/uL Normal NRBC # 0.08 Performed By: #### L100.0100, L100.4425 #### [facility] [address] [place], [address] BASIC METABOLIC Collected: 11/23/2017 Status: F Source: [place] PROFILE (BMP) 11:01 AM [facility] REPOSITORY Order Comment: 'TROP' Serial specimen #1, #2, #3, or #4: 1 TYPE CODE TESTS RESULT OUT OF RANGE REFERENCE UNITS LAB L501.0100 74-106 mg/dL High GLU 293 Result Comment: Glucose result greater than or equal to 200 mg/dL suggests DIABETES MELLITUS per A.D.A. criteria. Please note revised GLUCOSE reference range effective 2017. LAB L501.1000 7-18 mg/dL Normal BUN 18 LAB L501.1100 0.55-1.02 mg/dL High CREAT,SERUM 1.21 Result Comment: The validity of the calculated GFR AND GFRAA in patients over 70 years has not been determined. Clinical correlation is essential. LAB L501.1110 >60 mL/min Low EST GFR 46 Result Comment: Non- GFR Calc LAB L501.1115 >60 mL/min Low EST GFR - AA 56 Result Comment: GFR Calc LAB L501.1255 ml/min Normal Estimated CRCL 34.76 LAB L501.1300 10-20 RATIO Normal BUN/CRE 14.9 LAB L501.2200 8.5-10 mg/dL Normal .1 CA 8.5 LAB L501.5300 136-14 mmol/L Normal 5 NA 138 LAB L501.5600 3.5-5. mmol/L Normal 1 K 4.4 Result Comment: Slight Hemolysis, Result may be falsely increased. LAB L501.5900 98-107 mmol/L Normal CL 103 LAB L501.6100 21.0-32.0 mmol/L Normal CO2 26.0 LAB L501.6200 5-15 Normal 9 GAP Performed By: #### L500.2500, L501.4010 #### [facility] [address] [place], [place], [address] TROPONIN-I Collected: 11/23/2017 Status: F Source: [place] 11:01 [facility] REPOSITORY Order Comment: 'TROP' Serial specimen #1, #2, #3, or #4: 1 TYPE CODE TESTS RESULT OUT OF RANGE REFERENCE UNITS LAB L501.4010 <0.045 ng/mL Normal 0.025 TROPONIN-I Result Comment: TROPONIN-I EXPECTED VALUES <0.045 Negative 0.045 - 0.590 Consistent with Cardiac Damage > OR = 0.600 Critical Value Not every elevated troponin is indicative of IN. These values should be used with clinical judgement in examining the patient's clinical picture for diagnosis. To establish a diagnosis of IN versus myocardial injury, there must be a demonstrated rise and/or fall in the troponin values, in addition to ischemic symptoms, EKG changes, new regional wall motion abnormality, and/or angiographical evidence. PLEASE NOTE: REFERENCE RANGES EDITED 17 Performed By: #### L500.2500, L501.4010 #### [facility] [address] [place], [place], [address] BNP,B-TYPE NATRIURETIC Collected: 11/23/2017 Status: F Source: [place] PEPTIDE 11:01 AM [facility] REPOSITORY TYPE CODE TESTS RESULT OUT OF RANGE REFERENCE UNITS LAB L503.6620 0-100 pg/mL High B-TYPE 1012.8 TAMIKA PEP Performed By: #### L503.6620 #### [facility] [address] [place], [address] CHEST 1 VIEW Observed: 11/23/2017 Status: F Source: [place] (PORTABLE) 10:36 AM [facility] REPOSITORY [facility] Imaging Services [address] [place] [address] Chest 1 View (Portable) MR#: [id number] Acct: [id number] Name: HEATHER MEYERS Rep #: [id number] : 1945 F 72 From: Linette Pickard MD PCP: Jodi Butler MD Status: REG ER Study: Chest 1 View (Portable) Date of Exam: 11/23/17 Exam# [id number] Ordering Dr: Yuli Goodman MD STUDY: X-RAY CHEST REASON FOR EXAM: Female, 72 years old. Chest pain and shortness of TECHNIQUE: Single AP portable view of the chest. COMPARISON: November 09, 2017 chest x-ray, June 29, 2014 chest x-ray FINDINGS: There is no significant change since prior study November 09, 2017 however there is worsening of the interstitial markings in the lung bases compared to prior study June 29, 2014. Overall the lungs are hyperinflated there are areas of emphysematous change in the upper lung zones and fibrotic appearing interstitial markings in the lower lung zones. There is no demonstrated pleural abnormality. Normal size heart. Normal mediastinum and danielle. Normal visualized pulmonary arteries. Normal visualized aortic arch and descending thoracic aorta. Normal visualized thoracic spine. Normal visualized ribs, clavicles, and shoulders. There is no demonstrated abnormality of the visualized soft tissue structures of the upper abdomen. RAD/Chest 1 View (Portable) IMPRESSION: Advanced chronic lung disease. Cannot exclude superimposed mild edema and/or atypical infiltrates. Electronically Signed: Linette Pickard MD at 11:38 EDT Tel , Service support , CC: Yuli Goodman MD; Jodi Butler MD [employer]: Signed PROGRESS Observed: 11/20/2017 Status: COMPLETED Source: [place] 1:53 PM [facility] REPOSITORY HNO ID: [id number] Author: Aaliyah Brewer Service: (none) Author Type: Nurse Practitioner Type: Progress Notes Filed: 11/20/2017 4:28 PM Note Text: CC: Patient presents with: Recheck: [facility] follow up, SOB, cough HPI Heather Meyers is a 72 year old female who presents today with daughter and grandson for [facility] follow up and complaints of ongoing SOB and cough since discharge home. Patient initially presented to [facility] on 11/09/17 with c/o SOB and chest pain. Given deuoneb, started on noninvasive ventilation. EKG showed SR with poor Rwave progression, lateral Twave inversion, minimal ST elevation. WBC 18. Troponin 1.35. CXR showed chronic interstitial changes without acute disease. Patient was started on nitro drip after case discussed with . Also given lovenox, Solu-medrol IV and Lasix IV. Her symptoms improved and she was admitted to ICU. Echo completed showing decrease EF from 55% to 25%, Takotsubo's cardiomyopathy could not be excluded. Patient underwent cardiac cath with stent placement x3. Since returning home patient denies any further chest pain or pressure. Patient reports that she has been feeling fatigued, fevered and notes some sweating around her waist band and to the right groin surgical site. She states she is chronically chilled and complains of worsening SOB with exertion, increased wheezing and she is on 3L of oxygen routinely. Associated symptoms include cough and pain with deep inspiration. She reports using routine inhalers as prescribed, rescue inhaler ~2x a day. Reports she has not been using her nebulizer as it is currently stored outside d/Quill in her home. REVIEW OF SYSTEMS General: no night sweats, no recurrent infections, no change in appetite, no significant changes in weight and See HPI HEENT: no frequent or significant headaches, no changes in hearing, no visual changes, no nose bleeds, no sinus or nasal problems Respiratory: no hemoptysis, See HPI Cardiovascular: no chest pain, no chest pressure, no palpitations and no swelling GI: No nausea, vomiting, or diarrhea Skin: Negative for lesions, rash, and itching, Positive bruising to lower abdomen d/t lovenox injections and surgical site to right groin Neurologic: No headache, weakness, numbness, tingling, neck stiffness, tremor, vertigo, dizziness, memory loss, syncope. PAST MEDICAL HISTORY Diagnosis Date - Bipolar disorder, unspecified ([facility]) 11/03/2004 Dr. Vasquez, [facility] - Cataract surgery 07/20/2003 Left eye only - Chronic back pain 01/11/2012 - Coronary atherosclerosis of unspecified type of vessel, fond du lac or graft 11/22/2004 - Coronary atherosclerosis of unspecified type of vessel, fond du lac or graft 11/22/[address] Kristin Rodrigues - Depressive disorder, not elsewhere classified 11/03/2004 - Esophageal reflux 11/22/2004 - Lumbago 11/22/2004 Chronic low back pain. Dr. Carrillo, [place], [place]. - Myalgia and myositis, unspecified 11/22/2004 Fibromyalgia - NSTEMI (non-ST elevated myocardial infarction) ([facility]) 11/12/2017 - Osteoporosis, unspecified 01/22/2007 - Other abnormal heart sounds 11/21/2004 - Other and unspecified hyperlipidemia 11/03/2004 - Other emphysema ([facility]) 11/21/2004 Dr. Wade [facility]. - Other specified cardiac dysrhythmias(427.89) 11/21/2004 Parox. SVT - Peripheral vascular disease, unspecified ([facility]) 11/22/2004 Dr. Ruben Leo - Tobacco use disorder - Type II or unspecified type diabetes mellitus without mention of complication, not stated as uncontrolled 11/02/2004 - Unspecified vitamin D deficiency 05/22/2007 PAST SURGICAL HISTORY Procedure Laterality Date - ARTERY-VEIN ANASTOMOSIS 08/2002 fem-fem removal, right superficial femoral artery reconst. with inner position reverse contralateral saph. v. graft - BYPASS GRAFT OTHR,FEM-FEM 10/2001 Bypass graft fem-fem - DELIVERY ONLY , low cervical - HEART CATHETERIZATION 10/04/14 stent placement - INCISION OF DEEP/COMPLIC ABSCESS 05/2002 Infected fem-fem crossover graft - LEFT HEART CATH,PERCUTANEOUS 03/2001 Cardiac cath, L heart - REVISE MEDIAN N/CARPAL TUNNEL SURG Carpal tunnel decomp - SLING OPER STRES INCONTINENCE ALLERGIES Fentanyl; Albuterol; Cats; Codeine; Dogs; Environmental [Other]; Iodine; [place]; Morphine; Naprosyn [Naproxen]; Penicillins; Phenobarbital; Sulfa (Sulfonamide Antibiotics) MEDICATIONS cholecalciferol, Vitamin D3, (VITAMIN D3) 50,000 unit cap capsule Take 1 capsule by mouth once each week. (ONE CAPSULE) FOR VITAMIN D DEFICIENCY pantoprazole DR (PROTONIX) 20 mg tablet Take 1 tablet by mouth twice daily before meals. COMPOUNDED PRESCRIPTION Evaluate for portable oxygen concentrator. Patient requires 2 L supplemental O2. DME: [facility]. levalbuterol (XOPENEX) 0.63 mg/3 mL nebulizer solution Take (1) nebulizer treatment four times per day as needed for wheezing/shortness of breath. Ipratropium (ATROVENT HFA) 17 mcg/actuation inhaler Inhale 2 Puffs as instructed four times daily. COMPOUNDED PRESCRIPTION MANUAL WHEELCHAIR DX J44.9 I25.10 COMPOUNDED PRESCRIPTION NEBULIZER MACHINE AND MEDICATION CUP AND TUBING AND FILTERS DX J44.9 I25.10 SPIRIVA RESPIMAT 2.5 mcg/actuation mist Inhale 2 Inhalation as instructed once daily. cyclobenzaprine (FLEXERIL) 10 mg tablet Take 1 tablet by mouth once daily. COMPOUNDED PRESCRIPTION Electric wheelchair BREO ELLIPTA 200-25 mcg/dose inhaler Inhale 1 Inhalation as instructed once daily. COMPOUNDED PRESCRIPTION Portable oxygen concentrator nitroglycerin sublingual (NITROSTAT) 0.4 mg SL tablet Dissolve 1 tablet under the tongue as directed. DISSOLVE ONE(1) TABLET UNDER THE TOUNGUE NEEDED FOR CHEST PAIN,EVERY 5 MIN X3 atorvastatin (LIPITOR) 80 mg tablet Take 1 tablet by mouth once daily. ranolazine ER (RANEXA) 500 mg 12 hr tablet Take 1 tablet by mouth twice daily. HYDROcodone-acetaminophen (NORCO) 5-325 mg per tablet Take 1 tablet by mouth every 6 hours as needed for Pain. gabapentin (NEURONTIN) 300 mg capsule Take 2 capsules by mouth three times daily. clopidogrel (PLAVIX) 75 mg tablet Take 1 tablet by mouth once daily. aspirin 81 mg chewable tablet Take 1 tablet by mouth once daily. COMPOUNDED PRESCRIPTION Manual Wheel Chair : 1 Dx: Severe COPD, oxygen dependant.Dx: CAD, needing Bypass.Dx: PAD isosorbide mononitrate ER (IMDUR) 30 mg 24 hr tablet Takes all 3 pills in the AM losartan (COZAAR) 50 mg tablet Take 1 tablet by mouth once daily. amLODIPine (NORVASC) 5 mg tablet Take 1 tablet by mouth once daily. metoprolol tartrate, short acting, (LOPRESSOR) 25 mg tablet Take 1 tablet by mouth twice daily. fenofibrate nanocrystallized (TRICOR) 145 mg tablet Take 1 tablet by mouth once daily. bupropion hcl(WELLBUTRIN SR 150 MG TAB) Take one(1) tablet daily per PSYCH. PAROXETINE 40 MG TAB Take one(1) tablet daily, per PSYCH FAMILY HISTORY Problem Relation Age of Onset - Heart Mother - Stroke Maternal Grandmother - Stroke Maternal Grandfather - Heart Sister - other (MS) Other 2 nieces. Social History Substance Use Topics - Smoking status: Current Every Day Smoker Packs/day: 1.50 Years: 43.00 Types: Cigarettes Start date: 1961 - Smokeless tobacco: Never Used Comment: 1 pound bag tobacco per month, down from 3 pounds per month. JMB 04/29/17 - Alcohol use No PHYSICAL EXAM BP 124/68 Pulse 67 Temp 36.4 ?C (97.5 ?F) (Temporal Artery) Resp 16 Wt 68.9 kg (152 lb) SpO2 98% BMI 27.36 kg/m? General Appearance: in no acute distress, alert, Skin: Skin color, texture, turgor normal for age; large area of ecchymosis noted to RLQ, right groin: heeling catheter site without erythema or bruising, area soft Mildly tender no drainage or evidence of infection Head: normocephalic, atraumatic Lungs: Negative findings: normal respiratory rate and rhythm and chest symmetric with normal A/P diameter, Positive findings: wheezing with diminished lung sounds throughout +non-productive cough observed Heart: RRR without murmur, gallop, or rubs. No ectopy Bilateral Lower Extremities: no edema HEPATITIS C SCREENING due on 1989 DTAP,TDAP,TD(1 - Tdap) due on 11/19/2006 DIABETIC FOOT EXAM due on 09/13/2012 DILATED RETINAL EXAM due on 07/24/2015 URINE ALBUMIN:CREATININE RATIO due on 04/14/2016 FECAL OCCULT BLOOD due on 08/10/2016 LDL CHOLESTEROL due on 01/18/2017 HBA1C due on 02/14/2017 MAMMOGRAM due on 04/17/2017 INFLUENZA(1) due on 11/02/2017 STATIN MED ADHERENCE due on 12/02/2017 ANNUAL PCP TEAM CHRONIC DISEASE VISIT due on 05/03/2018 BP CONTROLLED (<130/80) due on 07/26/2018 BONE DENSITY Completed ADULT PREVNAR-13 Completed PNEUMOVAX AGE 65 AND OVER WITH 5YR LOOKBACK Completed ASSESSMENT/PLAN: 1. Hospital discharge follow-up - ICD9: V67.59, ICD10: Z09 (primary diagnosis) - S/p cardiac cath with stent placement x3 - Recovering as expected with exacerbation of COPD - Follow up in 1-2 months 2. COPD with exacerbation (HCC) - ICD9: 491.21, ICD10: J44.1 - CXR - Prednisone taper - Recommend patient use nebulizer every 4-6 hours for the next 48 hours then PRN - Follow up to be determined by CXR, sooner for new or worsening symptoms 3. Pleuritic pain - ICD9: 786.52, ICD10: R07.81 Atypical chest pain, symptoms are not consistent with cardiac ischemia due to pleuritic nature of pain possible etiology include COPD related, Pneumonia and Pulmonary embolis - Lab evaluation ddimer - Chest X-ray today. - Oxygen saturation 98% on 3L - Follow up to be determined by lab and imaging stuides - XR CHEST 2V FRONTAL/LAT - D-DIMER 4. SOB (shortness of breath) - ICD9: 786.05, ICD10: R06.02 Plan as above - XR CHEST 2V FRONTAL/LAT - D-DIMER 5. Cough - ICD9: 786.2, ICD10: R05 Plan as above - XR CHEST 2V FRONTAL/LAT 6. Wheezing - ICD9: 786.07, ICD10: R06.2 Plan as above - XR CHEST 2V FRONTAL/LAT Aaliyah Brewer APRN.[employer] Prescription instructions reviewed with patient as applicable. Potential red flag symptoms discussed with the patient. Reviewed appropriate action plan to take if red flag symptoms occur. Patient agreeable to treatment plan. CNOV Observed: 11/20/2017 Status: COMPLETED Source: [facility] 1:20 PM [facility] Office Visit ([facility]) HEATHER MEYERS ([id number]) 1945 F Date Time Provider Department 11/20/17 1:20 PM AALIYAH BREWER ([employer]) [facility] During your visit today, we recorded the following information about you: Temperature Pulse Respiration Blood pressure 97.5 degrees 67/minute 16/minute 124/68 Weight 68.9 kg Aaliyah Brewer APRN.CNP 11/20/2017 4:28 PM Signed CC: Patient presents with: Recheck: [facility] follow up, SOB, cough HPI Heather Meyers is a 72 year old female who presents today with daughter and grandson for [facility] follow up and complaints of ongoing SOB and cough since discharge home. Patient initially presented to [facility] on 11/09/17 with c/o SOB and chest pain. Given deuoneb, started on noninvasive ventilation. EKG showed SR with poor Rwave progression, lateral Twave inversion, minimal ST elevation. WBC 18. Troponin 1.35. CXR showed chronic interstitial changes without acute disease. Patient was started on nitro drip after case discussed with . Also given lovenox, Solu-medrol IV and Lasix IV. Her symptoms improved and she was admitted to ICU. Echo completed showing decrease EF from 55% to 25%, Takotsubo's cardiomyopathy could not be excluded. Patient underwent cardiac cath with stent placement x3. Since returning home patient denies any further chest pain or pressure. Patient reports that she has been feeling fatigued, fevered and notes some sweating around her waist band and to the right groin surgical site. She states she is chronically chilled and complains of worsening SOB with exertion, increased wheezing and she is on 3L of oxygen routinely. Associated symptoms include cough and pain with deep inspiration. She reports using routine inhalers as prescribed, rescue inhaler ~2x a day. Reports she has not been using her nebulizer as it is currently stored outside d/[employer]ill in her home. REVIEW OF SYSTEMS General: no night sweats, no recurrent infections, no change in appetite, no significant changes in weight and See HPI HEENT: no frequent or significant headaches, no changes in hearing, no visual changes, no nose bleeds, no sinus or nasal problems Respiratory: no hemoptysis, See HPI Cardiovascular: no chest pain, no chest pressure, no palpitations and no swelling GI: No nausea, vomiting, or diarrhea Skin: Negative for lesions, rash, and itching, Positive bruising to lower abdomen d/t lovenox injections and surgical site to right groin Neurologic: No headache, weakness, numbness, tingling, neck stiffness, tremor, vertigo, dizziness, memory loss, syncope. PAST MEDICAL HISTORY Diagnosis Date - Bipolar disorder, unspecified ([facility]) 11/03/2004 Dr. Vasquez, [facility] - Cataract surgery 07/20/2003 Left eye only - Chronic back pain 01/11/2012 - Coronary atherosclerosis of unspecified type of vessel, fond du lac or graft 11/22/2004 - Coronary atherosclerosis of unspecified type of vessel, fond du lac or graft 11/22/[address] Kristin Rodirgues - Depressive disorder, not elsewhere classified 11/03/2004 - Esophageal reflux 11/22/2004 - Lumbago 11/22/2004 Chronic low back pain. Dr. Carrillo, [place], [place]. - Myalgia and myositis, unspecified 11/22/2004 Fibromyalgia - NSTEMI (non-ST elevated myocardial infarction) ([facility]) 11/12/2017 - Osteoporosis, unspecified 01/22/2007 - Other abnormal heart sounds 11/21/2004 - Other and unspecified hyperlipidemia 11/03/2004 - Other emphysema ([facility]) 11/21/2004 Dr. Wade [facility]. - Other specified cardiac dysrhythmias(427.89) 11/21/2004 Parox. SVT - Peripheral vascular disease, unspecified ([facility]) 11/22/2004 Dr. Ruben Leo - Tobacco use disorder - Type II or unspecified type diabetes mellitus without mention of complication, not stated as uncontrolled 11/02/2004 - Unspecified vitamin D deficiency 05/22/2007 PAST SURGICAL HISTORY Procedure Laterality Date - ARTERY-VEIN ANASTOMOSIS 08/2002 fem-fem removal, right superficial femoral artery reconst. with inner position reverse contralateral saph. v. graft - BYPASS GRAFT OTHR,FEM-FEM 10/2001 Bypass graft fem-fem - DELIVERY ONLY , low cervical - HEART CATHETERIZATION 10/04/14 stent placement - INCISION OF DEEP/COMPLIC ABSCESS 05/2002 Infected fem-fem crossover graft - LEFT HEART CATH,PERCUTANEOUS 03/2001 Cardiac cath, L heart - REVISE MEDIAN N/CARPAL TUNNEL SURG Carpal tunnel decomp - SLING OPER STRES INCONTINENCE ALLERGIES Fentanyl; Albuterol; Cats; Codeine; Dogs; Environmental [Other]; Iodine; [place]; Morphine; Naprosyn [Naproxen]; Penicillins; Phenobarbital; Sulfa (Sulfonamide Antibiotics) MEDICATIONS cholecalciferol, Vitamin D3, (VITAMIN D3) 50,000 unit cap capsule Take 1 capsule by mouth once each week. (ONE CAPSULE) FOR VITAMIN D DEFICIENCY pantoprazole DR (PROTONIX) 20 mg tablet Take 1 tablet by mouth twice daily before meals. COMPOUNDED PRESCRIPTION Evaluate for portable oxygen concentrator. Patient requires 2 L supplemental O2. DME: [facility]. levalbuterol (XOPENEX) 0.63 mg/3 mL nebulizer solution Take (1) nebulizer treatment four times per day as needed for wheezing/shortness of breath. Ipratropium (ATROVENT HFA) 17 mcg/actuation inhaler Inhale 2 Puffs as instructed four times daily. COMPOUNDED PRESCRIPTION MANUAL WHEELCHAIR DX J44.9 I25.10 COMPOUNDED PRESCRIPTION NEBULIZER MACHINE AND MEDICATION CUP AND TUBING AND FILTERS DX J44.9 I25.10 SPIRIVA RESPIMAT 2.5 mcg/actuation mist Inhale 2 Inhalation as instructed once daily. cyclobenzaprine (FLEXERIL) 10 mg tablet Take 1 tablet by mouth once daily. COMPOUNDED PRESCRIPTION Electric wheelchair BREO ELLIPTA 200-25 mcg/dose inhaler Inhale 1 Inhalation as instructed once daily. COMPOUNDED PRESCRIPTION Portable oxygen concentrator nitroglycerin sublingual (NITROSTAT) 0.4 mg SL tablet Dissolve 1 tablet under the tongue as directed. DISSOLVE ONE(1) TABLET UNDER THE TOUNGUE NEEDED FOR CHEST PAIN,EVERY 5 MIN X3 atorvastatin (LIPITOR) 80 mg tablet Take 1 tablet by mouth once daily. ranolazine ER (RANEXA) 500 mg 12 hr tablet Take 1 tablet by mouth twice daily. HYDROcodone-acetaminophen (NORCO) 5-325 mg per tablet Take 1 tablet by mouth every 6 hours as needed for Pain. gabapentin (NEURONTIN) 300 mg capsule Take 2 capsules by mouth three times daily. clopidogrel (PLAVIX) 75 mg tablet Take 1 tablet by mouth once daily. aspirin 81 mg chewable tablet Take 1 tablet by mouth once daily. COMPOUNDED PRESCRIPTION Manual Wheel Chair : 1 Dx: Severe COPD, oxygen dependant.Dx: CAD, needing Bypass.Dx: PAD isosorbide mononitrate ER (IMDUR) 30 mg 24 hr tablet Takes all 3 pills in the AM losartan (COZAAR) 50 mg tablet Take 1 tablet by mouth once daily. amLODIPine (NORVASC) 5 mg tablet Take 1 tablet by mouth once daily. metoprolol tartrate, short acting, (LOPRESSOR) 25 mg tablet Take 1 tablet by mouth twice daily. fenofibrate nanocrystallized (TRICOR) 145 mg tablet Take 1 tablet by mouth once daily. bupropion hcl(WELLBUTRIN SR 150 MG TAB) Take one(1) tablet daily per PSYCH. PAROXETINE 40 MG TAB Take one(1) tablet daily, per PSYCH FAMILY HISTORY Problem Relation Age of Onset - Heart Mother - Stroke Maternal Grandmother - Stroke Maternal Grandfather - Heart Sister - other (MS) Other 2 nieces. Social History Substance Use Topics - Smoking status: Current Every Day Smoker Packs/day: 1.50 Years: 43.00 Types: Cigarettes Start date: 1961 - Smokeless tobacco: Never Used Comment: 1 pound bag tobacco per month, down from 3 pounds per month. B 04/29/17 - Alcohol use No PHYSICAL EXAM BP 124/68 Pulse 67 Temp 36.4 ?C (97.5 ?F) (Temporal Artery) Resp 16 Wt 68.9 kg (152 lb) SpO2 98% BMI 27.36 kg/m? General Appearance: in no acute distress, alert, Skin: Skin color, texture, turgor normal for age; large area of ecchymosis noted to RLQ, right groin: heeling catheter site without erythema or bruising, area soft Mildly tender no drainage or evidence of infection Head: normocephalic, atraumatic Lungs: Negative findings: normal respiratory rate and rhythm and chest symmetric with normal A/P diameter, Positive findings: wheezing with diminished lung sounds throughout +non-productive cough observed Heart: RRR without murmur, gallop, or rubs. No ectopy Bilateral Lower Extremities: no edema HEPATITIS C SCREENING due on 1989 DTAP,TDAP,TD(1 - Tdap) due on 11/19/2006 DIABETIC FOOT EXAM due on 09/13/2012 DILATED RETINAL EXAM due on 07/24/2015 URINE ALBUMIN:CREATININE RATIO due on 04/14/2016 FECAL OCCULT BLOOD due on 08/10/2016 LDL CHOLESTEROL due on 01/18/2017 HBA1C due on 02/14/2017 MAMMOGRAM due on 04/17/2017 INFLUENZA(1) due on 11/02/2017 STATIN MED ADHERENCE due on 12/02/2017 ANNUAL PCP TEAM CHRONIC DISEASE VISIT due on 05/03/2018 BP CONTROLLED (<130/80) due on 07/26/2018 BONE DENSITY Completed ADULT PREVNAR-13 Completed PNEUMOVAX AGE 65 AND OVER WITH 5YR LOOKBACK Completed ASSESSMENT/PLAN: 1. Hospital discharge follow-up - ICD9: V67.59, ICD10: Z09 (primary diagnosis) - S/p cardiac cath with stent placement x3 - Recovering as expected with exacerbation of COPD - Follow up in 1-2 months 2. COPD with exacerbation (HCC) - ICD9: 491.21, ICD10: J44.1 - CXR - Prednisone taper - Recommend patient use nebulizer every 4-6 hours for the next 48 hours then PRN - Follow up to be determined by CXR, sooner for new or worsening symptoms 3. Pleuritic pain - ICD9: 786.52, ICD10: R07.81 Atypical chest pain, symptoms are not consistent with cardiac ischemia due to pleuritic nature of pain possible etiology include COPD related, Pneumonia and Pulmonary embolis - Lab evaluation ddimer - Chest X-ray today. - Oxygen saturation 98% on 3L - Follow up to be determined by lab and imaging stuides - XR CHEST 2V FRONTAL/LAT - D-DIMER 4. SOB (shortness of breath) - ICD9: 786.05, ICD10: R06.02 Plan as above - XR CHEST 2V FRONTAL/LAT - D-DIMER 5. Cough - ICD9: 786.2, ICD10: R05 Plan as above - XR CHEST 2V FRONTAL/LAT 6. Wheezing - ICD9: 786.07, ICD10: R06.2 Plan as above - XR CHEST 2V FRONTAL/LAT Aaliyah Brewer APRN.[employer] Prescription instructions reviewed with patient as applicable. Potential red flag symptoms discussed with the patient. Reviewed appropriate action plan to take if red flag symptoms occur. Patient agreeable to treatment plan. Aaliyah Brewer APRN.[employer] 11/20/2017 2:07 PM Signed Begin nebulizer treatment every 4-6 hours for the next 2 days then only as needed. Referring Provider: SELF [[id number]] Allergies As of Date: 11/20/2017 Noted Allergy Reaction FENTANYL 08/28/2010 5 - Intolerance ALBUTEROL 11/02/2004 4 - Hives CATS 07/22/2007 CODEINE 11/02/2004 4 - Hives DOGS 07/22/2007 environmental [Other] 07/22/2007 Comments: Trees,grass,pollen IODINE 11/02/2004 2 - Rash LITHIUM 11/02/2004 Comments: Reverse reaction - severe anger MORPHINE 01/11/2012 11 - Vomiting NAPROSYN (NAPROXEN) 06/28/2006 PENICILLINS 11/02/2004 4 - Hives PHENOBARBITAL 11/03/2004 4 - Hives SULFA (SULFONAMIDE ANTIBIOTICS) 11/02/2004 2 - Rash 4 - Hives Date Reviewed: 07/26/2017 Reviewed by: Goldie Parson - Fully Assessed Reason for Visit: Recheck [92] Cmt: [facility] follow up, SOB, cough Primary Visit Diagnosis:Hospital discharge follow-up [Z09] Other Visit Diagnoses:COPD with exacerbation (HCC) [J44.1] Pleuritic pain [R07.81] SOB (shortness of breath) [R06.02] Cough [R05] Wheezing [R06.2] Order(s):predniSONE (DELTASONE) 10 mg tabletTake 40 mg x 3 days, 20 mg x 3 days, 10 mg x 3 days. Take with food, once dailyDisp: 21 tabletRfl: 0 XR CHEST 2V FRONTAL/LAT [[id number]] Order #: [id number] FUTURE D-DIMER [SQDDMER] Order #: [id number] FUTURE Prescriptions as of 11/20/2017 Sig: PREDNISONE 10 MG TABLET Take 40 mg x 3 days, 20 mg x * CHOLECALCIFEROL (VITAMIN D3) * Take 1 capsule by mouth once * PANTOPRAZOLE 20 MG TABLET,DEL* Take 1 tablet by mouth twice * COMPOUNDED PRESCRIPTION Evaluate for portable oxygen * LEVALBUTEROL 0.63 MG/3 ML NATAN* Take (1) nebulizer treatment * IPRATROPIUM BROMIDE 17 MCG/AC* Inhale 2 Puffs as instructed * COMPOUNDED PRESCRIPTION MANUAL WHEELCHAIR DX J44.9* COMPOUNDED PRESCRIPTION NEBULIZER MACHINE AND MEDICAT* SPIRIVA RESPIMAT 2.5 MCG/ACTU* Inhale 2 Inhalation as instru* CYCLOBENZAPRINE 10 MG TABLET Take 1 tablet by mouth once d* COMPOUNDED PRESCRIPTION Electric wheelchair BREO ELLIPTA 200 MCG-25 MCG/D* Inhale 1 Inhalation as instru* COMPOUNDED PRESCRIPTION Portable oxygen concentrator NITROGLYCERIN 0.4 MG SUBLINGU* Dissolve 1 tablet under the t* ATORVASTATIN 80 MG TABLET Take 1 tablet by mouth once d* RANOLAZINE ER 500 MG TABLET,E* Take 1 tablet by mouth twice * HYDROCODONE 5 MG-ACETAMINOPHE* Take 1 tablet by mouth every * GABAPENTIN 300 MG CAPSULE Take 2 capsules by mouth thre* CLOPIDOGREL 75 MG TABLET Take 1 tablet by mouth once d* ASPIRIN 81 MG CHEWABLE TABLET Take 1 tablet by mouth once d* COMPOUNDED PRESCRIPTION Manual Wheel Chair : 1 Dx:* ISOSORBIDE MONONITRATE ER 30 * Takes all 3 pills in the AM LOSARTAN 50 MG TABLET Take 1 tablet by mouth once d* AMLODIPINE 5 MG TABLET Take 1 tablet by mouth once d* METOPROLOL TARTRATE 25 MG TAB* Take 1 tablet by mouth twice * FENOFIBRATE NANOCRYSTALLIZED * Take 1 tablet by mouth once d* * WELLBUTRIN SR 150 MG TABLET, * Take one(1) tablet daily per * * PAROXETINE 40 MG TABLET Take one(1) tablet daily, per* Problem List As Of Date 11/20/2017 Noted Resolved DM type 2, controlled, with complication (HCC) *INVALID FOR*04/14/2015 More... Mixed simple and mucopurulent chronic bronchiti*INVALID FOR*10/31/2016 More... Hypertriglyceridemia [E78.1] INVALID FOR* More... CHRONIC BRONCHITIS [491] INVALID FOR*09/12/2005 Bipolar disorder, unspecified (HCC) [F31.9] INVALID FOR* More... DEPRESSIVE DISORDER NEC [F32.9] INVALID FOR* More... Other specified cardiac dysrhythmias(427.89) [I*INVALID FOR* More... Coronary atherosclerosis [I25.10] INVALID FOR* More... MYALGIA AND MYOSITIS NOS [[id number]] INVALID FOR* More... Lumbago [M54.5] INVALID FOR*08/15/2016 More... More... Peripheral vascular disease, unspecified (HCC) *INVALID FOR* More... DERMATOPHYTOSIS OF NAIL [B35.1] INVALID FOR* OSTEOPOROSIS NOS [M81.0] INVALID FOR* Unspecified vitamin D deficiency [E55.9] INVALID FOR*08/15/2016 More... Patient Noncompliance [Z91.19] INVALID FOR* Secondary DM with neurological manifestations (*INVALID FOR* More... HTN (hypertension) [I10] INVALID FOR* More... Chronic back pain [M54.9, G89.29] INVALID FOR*08/15/2016 Physical deconditioning [R53.81] INVALID FOR* DDD (degenerative disc disease), lumbar [M51.36]INVALID FOR* High dependence on smoking [F17.200] INVALID FOR* More... Needs smoking cessation education [F17.200] INVALID FOR*08/15/2016 More... Vitamin D deficiency [E55.9] INVALID FOR* More... GERD (gastroesophageal reflux disease) [K21.9] INVALID FOR* More... Unspecified disorder of skin and subcutaneous t*INVALID FOR* SCCA (squamous cell carcinoma) of skin [C44.92] INVALID FOR* COPD with chronic bronchitis (HCC) [J44.9] INVALID FOR*10/31/2016 More... End stage COPD (HCC) [J44.9] INVALID FOR* More... Tobacco use disorder [F17.200] Other instructions from your clinician: Begin nebulizer treatment every 4-6 hours for the next 2 days then only as needed. Prescriptions ordered this encounter Disp Refills Start End PREDNISONE 10 MG TABLET 21 t* 0 11/20/2017 Sig: Take 40 mg x 3 days, 20 mg x 3 days, 10 mg x 3 days. Take with food, once daily Encounter Status:Closed by AALIYAH BREWER CNP on 11/20/17 12 LEAD ELECTROCARDIOGRAM Observed: 11/13/2017 Status: F Source: [place] 2:08 PM [facility] REPOSITORY [facility] Cardiovascular Services [facility] [place] [address] 12 Lead EKG 11/11/17 0540 MR#: [id number] Acct: [id number] Name: HEATHER MEYERS Rep #: [id number] : 1945 72 From: Kev Huggins MD Attending Dr: Sveta Rashid MD Status: DIS IN Ordering Dr: Nando Jefferson MD Date: 11/11/17 Location: ICU Sex: F C Admitted: 11/09/17 Test Reason : AM EKG Blood Pressure : / mmHG Vent. Rate : 097 BPM Atrial Rate : 097 BPM P-R Int : 158 ms QRS Dur : 092 ms QT Int : 406 ms P-R-T Axes : 061 036 185 degrees QTc Int : 515 ms Normal sinus rhythm ST AND Marked T wave abnormality, consider anterolateral ischemia Prolonged QT Abnormal ECG When compared with ECG of 09-NOV-2017 03:47, MANUAL COMPARISON REQUIRED, DATA IS UNCONFIRMED Confirmed by JOSELUIS IVEY, KEV ([id number]), order editor LORI TORRES ([id number]) on 11/13/2017 2:07:32 PM Referred By: LI Confirmed By:KEV HUGGINS MD 11/13/17 1407 Date Kev Huggins MD CC: Jodi Butler MD; Nando Jefferson MD; Sveta Rashid MD Signed 12 LEAD ELECTROCARDIOGRAM Observed: 11/13/2017 Status: F Source: [place] 2:07 PM [facility] REPOSITORY [facility] Cardiovascular Services [address] [place] [address] 12 Lead EKG 11/11/17 1417 MR#: [id number] Acct: [id number] Name: HEATHER MEYERS Rep #: [id number] : 1945 72 From: Kev Huggins MD Attending Dr: Sveta Rashid MD Status: DIS IN Ordering Dr: Nando Jefferson MD Date: 11/12/17 Location: ICU Sex: F C Admitted: 11/09/17 Test Reason : POST HEART CATH Blood Pressure : / mmHG Vent. Rate : 091 BPM Atrial Rate : 091 BPM P-R Int : 162 ms QRS Dur : 092 ms QT Int : 406 ms P-R-T Axes : 064 035 164 degrees QTc Int : 499 ms Normal sinus rhythm ST AND Marked T wave abnormality, consider anterolateral ischemia Prolonged QT Abnormal ECG When compared with ECG of 11-NOV-2017 05:40, MANUAL COMPARISON REQUIRED, DATA IS UNCONFIRMED Confirmed by KEV HUGGINS MD ([id number]), order editor LORI TORRES ([id number]) on 11/13/2017 2:06:59 PM Referred By: Confirmed By:KEV HUGGINS MD 11/13/17 1407 Date Kev Huggins MD CC: Jodi Butler MD; Nando Jefferson MD; Sveta Rashid MD Signed 12 LEAD ELECTROCARDIOGRAM Observed: 11/13/2017 Status: F Source: [place] 2:06 PM [facility] REPOSITORY [facility] Cardiovascular Services [address] [place] [address] 12 Lead EKG 11/12/17 0543 MR#: [id number] Acct: [id number] Name: HEATHER MEYERS Rep #: [id number] : 1945 72 From: Kev Huggins MD Attending Dr: Sveta Rashid MD Status: DIS IN Ordering Dr: Nando Jefferson MD Date: 11/11/17 Location: ICU Sex: F C Admitted: 11/09/17 Test Reason : AM Blood Pressure : / mmHG Vent. Rate : 071 BPM Atrial Rate : 071 BPM P-R Int : 152 ms QRS Dur : 092 ms QT Int : 458 ms P-R-T Axes : 077 032 174 degrees QTc Int : 497 ms Normal sinus rhythm with sinus arrhythmia ST AND Marked T wave abnormality, consider anterolateral ischemia Prolonged QT Abnormal ECG When compared with ECG of 11-NOV-2017 14:17, MANUAL COMPARISON REQUIRED, DATA IS UNCONFIRMED Confirmed by KEV HUGGINS MD ([id number]), order editor LORI TORRES ([id number]) on 11/13/2017 2:06:09 PM Referred By: SHEBA Confirmed By:KEV HUGGINS MD 11/13/17 1406 Date Kev Huggins MD CC: Jodi Butler MD; Nando Jefferson MD; Sveta Rashid MD Signed 12 LEAD ELECTROCARDIOGRAM Observed: 11/12/2017 Status: F Source: [place] 2:20 PM [facility] REPOSITORY [facility] Cardiovascular Services [address] [place] [address] 12 Lead EKG 11/09/17 0329 MR#: [id number] Acct: [id number] Name: HEATHER MEYERS Rep #: [id number] : 1945 72 From: Nando Jefferson MD Attending Dr: Sveta Rashid MD Status: DIS IN Ordering Dr: Yuli Goodman MD Date: 11/09/17 Location: ICU Sex: F C Admitted: 11/09/17 Test Reason : CP Blood Pressure : / mmHG Vent. Rate : 094 BPM Atrial Rate : 094 BPM P-R Int : 174 ms QRS Dur : 084 ms QT Int : 356 ms P-R-T Axes : 073 -14 097 degrees QTc Int : 445 ms Normal sinus rhythm Low voltage QRS Possible Anterolateral infarct , age undetermined Abnormal ECG Confirmed by NANDO JEFFERSON ([id number]), order editor LORI TORRES ([id number]) on 11/12/2017 2:20:15 PM Referred By: DR GOODMAN Confirmed By:NANDO JEFFERSON 11/12/17 1420 Date Nando Jefferson MD CC: Yuli Goodman MD; Jodi Butler MD; Sveta Rashid MD Signed 12 LEAD ELECTROCARDIOGRAM Observed: 11/12/2017 Status: F Source: [place] 2:19 PM [facility] REPOSITORY [facility] Cardiovascular Services [address] [place] [address] 12 Lead EKG 11/09/17 0347 MR#: [id number] Acct: [id number] Name: HEATHER MEYERS Rep #: [id number] : 1945 72 From: Nando Jefferson MD Attending Dr: Sveta Rashid MD Status: DIS IN Ordering Dr: Yuli Goodman MD Date: 11/09/17 Location: ICU Sex: F C Admitted: 11/09/17 Test Reason : REPEAT Blood Pressure : / mmHG Vent. Rate : 086 BPM Atrial Rate : 086 BPM P-R Int : 176 ms QRS Dur : 090 ms QT Int : 376 ms P-R-T Axes : 070 -17 078 degrees QTc Int : 449 ms Normal sinus rhythm Anterolateral infarct , age undetermined Abnormal ECG Confirmed by NANDO JEFFERSON ([id number]), order editor LORI TORRES ([id number]) on 11/12/2017 2:19:27 PM Referred By: Confirmed By:NANDO JEFFERSON 11/12/17 1419 Date Nando Jefferson MD CC: Yuli Goodman MD; Jodi Butler MD; Sveta Rashid MD Signed DISCHARGE SUMMARY Observed: 11/12/2017 Status: F Source: [place] 2:05 PM [facility] REPOSITORY [facility] Medical Records Department [address] [place] [address] Discharge Summary 11/12/17 0943 MR#: [id number] Acct: [id number] Name: HEATHER MEYERS Rep #: [id number] : 1945 72 From: Sveta Rashid MD PCP: Jodi Butler MD Status: DIS IN Y Location: ICU [id number] Discharge Date and Diagnosis Date of Admission: 11/09/17 Date of Discharge: 11/12/17 - Primary Discharge Diagnosis Active and Suspected Problems (Last Reviewed 11/09/17 @ 05:19 by Lokesh Sethi MD) NSTEMI (non-ST elevated myocardial infarction) (Acute) COPD exacerbation (Acute) CAD (coronary artery disease) (Acute) Successful PTCA/SUSAN of the of mid/distal RCA with a 2.25 x 38 Promus Synergy, post dilated proximally with a 3.0 x 12 NC balloon at 8 safia (2.5mm); 75%-->0%, no dissection. Successful PTCA/SUSAN of the proximal RCA with a 2.5 x 20 Promus Synergy, post dilated with a 3.0 x 12 at 14 safia; 75%-->0%, no dissection. Tobacco abuse (Acute) Congestive heart failure (Acute) - Secondary Discharge Diagnosis Chronic Problems (Last Reviewed 11/09/17 @ 05:19 by Lokesh Sethi MD) Nonrheumatic tricuspid (valve) insufficiency (Chronic) Nonrheumatic mitral valve insufficiency (Chronic) Nicotine dependence, cigarettes, uncomplicated (Chronic) Hypertension (Chronic) Hyperlipidemia (Chronic) Atherosclerosis of [place] coronary artery of [place] heart without angina pectoris (Chronic) PTCA/SUSAN to ostium of LMT 10/01/2014 @[facility]; Peripheral vascular disease (Chronic) SOB (shortness of breath) (Chronic) Hospital Course and Treatment Imaging Results: Diagnostic Data Chest X-Ray 11/09/17 03:40 IMPRESSION: 2 mm stone in the distal left ureter at the level of the ureterovesical junction with changes of moderate acute obstructive uropathy. Electronically Signed: Gio Garg MD at 4:26 EDT Tel , Service support , ADDENDUM: 11/09/17 0452 Diagnostic Data Chest X-Ray 11/09/17 03:40 IMPRESSION: 2 mm stone in the distal left ureter at the level of the ureterovesical junction with changes of moderate acute obstructive uropathy. Electronically Signed: Gio Garg MD at 4:26 EDT Tel , Service support , ADDENDUM: 11/09/17 0452 Laboratory Tests WBC 18.0 H RBC 5.28 Hgb 15.9 H Hct 48.0 H MCV 90.9 MCH 30.1 MCHC 33.1 RDW 14.3 RDW Differential 46.8 H WBC 18.5 H RBC 4.79 Hgb 14.1 Hct 43.4 MCV 90.6 MCH 29.4 WBC 16.1 H RBC 4.31 Hgb 12.5 Hct 39.5 MCV 91.6 WBC RBC Hgb Hct MCV MCH MCHC RDW RDW Differential Plt Count MPV Immature Gran % (Auto) WBC 11.4 H RBC 4.25 Hgb 12.4 Interpretation Summary 2D echo (11/09/17 Mildly dilated left ventricle. The estimated ejection fraction is 25 %. Stage 1 diastolic dysfunction. Mid-Anterior : Akinetic. Mid-anteroseptal : Akinetic. Anterior [place] : Akinetic. Inferior [place] : Akinetic. Trivial tricuspid valve insufficiency. Right ventricular systolic pressure estimated to be 39 mmHg. Mild pulmonary hypertension. Trivial aortic valve insufficiency. Compared to echo report dated 12/17/2016, LV Function has gone from 55% to 25%. Cannot exclude Takotsubo's cardiomyopathy. Recommend clinical correlation. The study was technically difficult. cardiology Procedures: 2-D Echocardiogram, Cardiac catheterization Summary of Care Provided: The patient is a 72 year old F with a history of CAD status post stent placement in left main artery, hypertension hyperlipidemia. She was admitted by the ED on 11/09/2017 with complaint of chest pain which started a few hours before admission with associated shortness of breath. Pain was crushing and substernal and was relieved by sublingual nitroglycerin. [facility] some T wave inversions in the anterolateral leads. Initial troponin was 1.35, which trended down slightly to 0.92. Bedside echo done on day of admission showed akinetic anterior wall consistent with previous anterior wall myocardial infarction, which appeared to be new, and EF of 10-15%. CXR showed chronic interstitial changes and significant COPD with bilateral apical blebs and evidence of pulmonary vascular redistribution consistent with congestive heart failure. She was admitted and managed for NSTEMI,acute on chronic hypoxic respiratory failure due to COPD exacerbation and heart failure. She was started on IV Lasix 40 mg daily and continue on aspirin and Plavix started on Cozaar. It was recommended that she have repeat heart catheterization. He had cardiac cath on 11/11/2017 which showed 70% stenosis and mid RCA and 7 5% stenosis and distal RCA, with less than 30% stenosis in proximal LAD and circumflex arteries. She had stenting of the RCA done with a drug-eluting stent. Patient remained stable afterwards. She did complain of some bruising in the groin area at site of cath. She remained stable and was discharged home on 11/12/2017 follow-up with cardiology and cardiac rehab. Seen and examined prior to discharge. She complained of bruising and mild tenderness in the groin area from cath. She complained of some wheezing from COPD and had a cough which is nonproductive. He denies any chest pain, any abdominal pain, any diarrhea or vomiting. She stated that she felt much better after she had the procedure. 12 point review of systems was otherwise negative. Labs and vitals reviewed. o/e: Vital Signs Height 5 ft 2 in Weight: 152 lb 5.431 oz General: Alert, Oriented x3, Cooperative, No apparent distress HEENT: Atraumatic, PERRLA, EOMI, Normocephalic Oral: Moist Mucosa Neck: Supple, No JVD, Negative Carotid Bruits Lungs: Normal air movement, - - has minimal wheezing in lower lung meza bilaterally Cardiovascular: Regular rate, Regular Rhythm, Normal S1, Normal S2, No murmurs Abdomen: Bowel Sounds Present, Soft, Non Tender, Non-Distended, No Hepato-splenomegaly Extremities: No clubbing, No cyanosis, No edema, Capillary Refill Less than 3 Seconds Skin: No rashes, No breakdown Musculoskeletal: No Tenderness to Palpation of Joints or Extremities Lymphatic: No Cervical, Supraclavicular, or Inguinal Adenopathy Neurological: Cranial nerves II-XII grossly intact Psych/Mental Status: Normal Affect, Appropriate, Alert and oriented to time, place, person, mood and affect She has been discharged home. She is to follow-up with her primary care doctor and cardiology as well as cardiac rehab. Patient counseled extensively about the importance of quitting smoking she smokes about a pack and a half daily. She will be discharged with nicotine patch 21 mg daily. She is to have a follow up 2D echo in a few months to assess for improvement in EF. She was counselled to increase home oxygen to 3L as needed to maintain saturation >92%. Discharge Diet: Low fat/ Low Cholesterol, 2000 mg Sodium Diet Weight Bearing Status: Weight bearing as tolerated Call your doctor if you observe: Shortness of breath, Swelling in the ankles, Chest pain Home Medications: Medications to take at Discharge Amlodipine [Norvasc] 5 mg PO DAILY 07/13/14 Aspirin 325 mg PO DAILY@0800 07/13/14 Atorvastatin Calcium [Lipitor] 40 mg PO QHS 07/13/14 Bupropion HCl [Bupropion Xl] 150 mg PO DAILY 07/13/14 Buspirone HCl 15 mg PO DAILY 07/13/14 Cyclobenzaprine [Flexeril] 10 mg PO DAILY 07/13/14 Fenofibrate [Tricor] 145 mg PO DAILY 07/13/14 Gabapentin [Neurontin] 300 mg PO BIDCM 07/13/14 Ipratropium/Albuterol Sulfate 2 puff INHALATION 4X/DAY 07/13/14 Omeprazole [Prilosec] 20 mg PO DAILY 07/13/14 Tiotropium Bath [Spiriva 18 MCG] 1 puff INHALATION DAILY 07/13/14 Vitamin D 50,000 units PO WE 07/13/14 Fluticasone/Vilanterol [Breo Ellipta 200-25 Mcg INH] 1 ea IH DAILY 12/17/16 Ipratropium [Atrovent Inhaler] 2 puff INHALATION 4X/DAY 12/17/16 Paroxetine HCl [Paxil] 40 mg PO DAILY 12/17/16 diphenhydramine 25 mg tablet 25 mg PO Q6H PRN 03/20/17 nitroglycerin 0.4 mg sublingual tablet 0.4 mg SUBLINGUAL Q5M PRN #25 tab 03/25/17 ranolazine ER 500 mg tablet,extended release,12 hr 500 mg PO BID #180 tab 03/25/17 isosorbide mononitrate ER 120 mg tablet,extended release 24 hr 120 mg PO QDAY #90 tab 10/17/17 losartan 50 mg tablet 50 mg PO DAILY #90 tab 10/17/17 clopidogrel 75 mg tablet 75 mg PO DAILY #90 tab 10/23/17 Carvedilol [Coreg (Beta Tata)] 3.125 mg PO BID #60 tab 11/12/17 Nicotine [Nicotine Patch] 1 ea TD DAILY #30 patch.td24 11/12/17 Following Prescrptions Were Given to Patient: Nicotine [Nicotine Patch] 1 ea TD DAILY #30 patch.td24 Carvedilol [Coreg (Beta Tata)] 3.125 mg PO BID #60 tab Primary Care Physician: Jodi Butler MD [Primary Care Provider] - Please follow up with your Primary Care Physician in: one week Please Follow Up With: Nando Jefferson MD When: 1-2 weeks Patient Instructions: Tips for Quitting Smoking (Cardiovascular), Discharge Instructions for Heart Attack Disposition: Home Minutes spent on discharge:: 45 Patient Condition:: Stable Medical Necessity - Tobacco Use Smoking Status: Current every day smoker Meaningful Use Info Meaningful Use Diagnoses (Choose all that apply): AMI, CHF - AMI Aspirin given w/in 24hrs of arrival?: Yes ASA at discharge?: Yes Statins at discharge?: Yes Peng/ARB at discharge?: Yes Beta Tata at discharge?: Yes Done w/ Acute IN measure.: Yes - CHF PENG/ARB ordered at discharge?: Yes Documented LVEF (%): 25 Code Visit Inpatient E AND M: [id number] Disch Hosp 11/12/17 1405 <Electronically signed by Sveta Rashid MD> Date Sveta Rashid MD Cosigner Signature (if applicable): Date CC: Jodi Butler MD; Sveta Rahsid MD Signed DISCHARGE INSTRUCTION Observed: 11/12/2017 Status: F Source: [place] 9:51 AM [facility] REPOSITORY [facility] Medical Records Department [address] [place] [address] Instructions for Home/Discharge Instructions 11/12/17 0944 MR#: [id number] Acct: [id number] Name: HEATHER MEYERS Rep #: [id number] : 1945 72 From: Sveta Rashid MD PCP: Jodi Butler MD Status: ADM IN - Discharge Diagnoses Current Active Problems: Current Active and Chronic Problems (Last Reviewed 11/09/17 @ 05:19 by Lokesh Sethi MD) NSTEMI (non-ST elevated myocardial infarction) (Acute) COPD exacerbation (Acute) CAD (coronary artery disease) (Acute) Successful PTCA/SUSAN of the of mid/distal RCA with a 2.25 x 38 Promus Synergy, post dilated proximally with a 3.0 x 12 NC balloon at 8 safia (2.5mm); 75%-->0%, no dissection. Successful PTCA/SUSAN of the proximal RCA with a 2.5 x 20 Promus Synergy, post dilated with a 3.0 x 12 at 14 safia; 75%-->0%, no dissection. Tobacco abuse (Acute) Congestive heart failure (Acute) You will use the following diet at home:: Cardiac Your food should be the consistency of: Regular Your liquids should be the consistency of: Regular/Thin Weight Bearing Status: Weight bearing as tolerated Call your doctor if you observe: Shortness of breath, Chest pain, Increased palpitations (irregular heartbeat) Instructions: Tips for Quitting Smoking (Cardiovascular), Discharge Instructions for Heart Attack Additional Instructions: please increase your oxgygen to 3L as needed at home Allergies/Adverse Reactions: Allergies codeine Allergy (Unknown, Verified 11/09/17 03:33) Unknown fentanyl Allergy (Unknown, Verified 11/09/17 03:33) Unknown lithium Allergy (Unknown, Verified 11/09/17 03:33) Unknown morphine Allergy (Unknown, Verified 11/09/17 03:33) Unknown naproxen [From Naprosyn] Allergy (Unknown, Verified 11/09/17 03:33) Unknown phenobarbital Allergy (Unknown, Verified 11/09/17 03:33) Unknown Sulfa (Sulfonamide Antibiotics) Allergy (Unknown, Verified 11/09/17 03:33) Unknown albuterol Allergy (Verified 11/09/17 03:33) Rash Iodine and Iodide Containing Produc Adverse Reaction (Verified 11/09/17 03:33) Unknown Penicillins [PCN] Adverse Reaction (Verified 11/09/17 03:33) Unknown Medications to take at Discharge Amlodipine [Norvasc] 5 mg PO DAILY 07/13/14 Aspirin 325 mg PO DAILY@0800 07/13/14 Atorvastatin Calcium [Lipitor] 40 mg PO QHS 07/13/14 Bupropion HCl [Bupropion Xl] 150 mg PO DAILY 07/13/14 Buspirone HCl 15 mg PO DAILY 07/13/14 Cyclobenzaprine [Flexeril] 10 mg PO DAILY 07/13/14 Fenofibrate [Tricor] 145 mg PO DAILY 07/13/14 Gabapentin [Neurontin] 300 mg PO BIDCM 07/13/14 Ipratropium/Albuterol Sulfate 2 puff INHALATION 4X/DAY 07/13/14 Omeprazole [Prilosec] 20 mg PO DAILY 07/13/14 Tiotropium Bath [Spiriva 18 MCG] 1 puff INHALATION DAILY 07/13/14 Vitamin D 50,000 units PO WE 07/13/14 Fluticasone/Vilanterol [Breo Ellipta 200-25 Mcg INH] 1 ea IH DAILY 12/17/16 Ipratropium [Atrovent Inhaler] 2 puff INHALATION 4X/DAY 12/17/16 Paroxetine HCl [Paxil] 40 mg PO DAILY 12/17/16 diphenhydramine 25 mg tablet 25 mg PO Q6H PRN 03/20/17 nitroglycerin 0.4 mg sublingual tablet 0.4 mg SUBLINGUAL Q5M PRN #25 tab 03/25/17 ranolazine ER 500 mg tablet,extended release,12 hr 500 mg PO BID #180 tab 03/25/17 isosorbide mononitrate ER 120 mg tablet,extended release 24 hr 120 mg PO QDAY #90 tab 10/17/17 losartan 50 mg tablet 50 mg PO DAILY #90 tab 10/17/17 clopidogrel 75 mg tablet 75 mg PO DAILY #90 tab 10/23/17 Carvedilol [Coreg (Beta Tata)] 3.125 mg PO BID #60 tab 11/12/17 Nicotine [Nicotine Patch] 1 ea TD DAILY #30 patch.td24 11/12/17 The following prescriptions were given: Nicotine [Nicotine Patch] 1 ea TD DAILY #30 patch.td24 Carvedilol [Coreg (Beta Tata)] 3.125 mg PO BID #60 tab Primary Care Physician: Joid Butler MD [Primary Care Provider] - Please follow up with your Primary Care Physician in: one week Test Results: Test results from this visit will be discussed in further detail at your follow-up appointment, if applicable. Please Follow Up With: Nando Jefferson MD When: 1-2 weeks Proposed Discharge Date: 11/12/17 Cardiac Rehab Referral Please Follow Up with Cardiac Rehabilitation:: 2 Weeks Cardiac Rehabilitation was informed of this Referral:: Yes - Notifies Card Rehab 11/12/17 0951 <Electronically signed by Sveta Rashid MD> Date Sveta Rashid MD CC: Jodi Butler MD; Nando Jefferson MD CBC W/DIFF, AUTOMATED Collected: 11/12/2017 Status: F Source: [place] 6:25 AM [facility] REPOSITORY TYPE CODE TESTS RESULT OUT OF RANGE REFERENCE UNITS LAB L100.1000 4.4-11.0 K/mm3 High WBC 11.4 LAB L100.1200 4.2-5.4 M/mm3 Normal RBC 4.25 LAB L100.1300 12.0-15.0 g/dl Normal HGB 12.4 LAB L100.1400 37-47 % Normal HCT 39.7 LAB L100.1500 81-99 fL Normal MCV 93.4 LAB L100.1600 27.0-32.0 pg Normal MCH 29.2 LAB L100.1700 32-36 g/gl Low MCHC 31.2 LAB L100.1810 11.6-14.6 % Normal RDW CV 14.6 LAB L100.1820 35.1-43.9 fl High RDW SD 49.2 LAB L100.1900 150-450 K/mm3 Normal PLT 276 LAB L100.2000 6.2-12.0 fl Normal MPV 10.1 LAB L100.2100 47-70 % Normal NEUT% 69.8 LAB L100.2200 19-41 % Normal LY% 20.3 LAB L100.2300 0-10 % Normal MONO% 9.5 LAB L100.2400 0-5 % Normal EO% 0.0 LAB L100.2500 0-1 % Normal BASO% 0.1 LAB L100.2550 0.0-0.9 % Normal IM GRAN % 0.300 Result Comment: IG% - Immature Granulocytes (promyelocytes, myelocytes and metamyelocytes) > 1% indicates that a LEFT SHIFT is Present. LAB L100.2620 2.0-7.7 X10 3/uL High Absolute Neut 7.9 LAB L100.2720 0.83-4.51 X10 3/ul Normal Absolute Lymph 2.30 Performed By: #### L100.0100 #### [facility] [address] [place], [place], [address] COMPREHENSIVE METABOLIC Collected: 11/12/2017 Status: F Source: [place] [facility] 6:25 AM [facility] REPOSITORY TYPE CODE TESTS RESULT OUT OF RANGE REFERENCE UNITS LAB L501.0100 74-106 mg/dL Normal GLU 91 Result Comment: Please note revised GLUCOSE reference range effective 2017. LAB L501.1000 7-18 mg/dL High BUN 31 LAB L501.1100 0.55-1.02 mg/dL Normal CREAT,SERUM 0.97 Result Comment: The validity of the calculated GFR AND GFRAA in patients over 70 years has not been determined. Clinical correlation is essential. LAB L501.1110 >60 mL/min Normal EST GFR 60 Result Comment: Non- GFR Calc LAB L501.1115 >60 mL/min Normal EST GFR - AA 73 Result Comment: GFR Calc LAB L501.1255 ml/min Normal Estimated CRCL 41.46 LAB L501.1300 10-20 RATIO High BUN/CRE 32.0 LAB L501.1500 6.4-8. g/dL Normal 2 T PROT 6.9 LAB L501.1800 3.2-5. g/dL Normal 0 ALB 3.7 LAB L501.1950 2.2-4. g/dL Normal 2 GLOB 3.2 LAB L501.2000 0.9-2. RATIO Normal 4 A/G 1.2 LAB L501.2200 8.5-10 mg/dL Normal .1 CA 8.5 LAB L501.4100 15-37 U/L Low AST 8 LAB L501.4305 45-117 U/L Normal ALK P 64 LAB L501.4405 13-56 U/L Normal ALT 13 LAB L501.4600 0.20-1 mg/dL Normal .00 T BILI 0.30 LAB L501.5300 136-14 mmol/L Normal 5 NA 143 LAB L501.5600 3.5-5. mmol/L Normal 1 K 3.6 LAB L501.5900 98-107 mmol/L Normal CL 105 LAB L501.6100 21.0-3 mmol/L Normal 2.0 CO2 27.0 LAB L501.6200 5-15 Normal GAP 11 Performed By: #### L500.4050 #### [facility] [address] [place], [address] ACT ACTIVATED CLOTTING Collected: 11/11/2017 Status: F Source: [place] TIME 2:04 PM [facility] REPOSITORY TYPE CODE TESTS RESULT OUT OF RANGE REFERENCE UNITS LAB L9100.0100 74-137 sec Normal ACTk CLOT 136 TIME Performed By: #### L9100.0100 #### [facility] Point of Care [address] [place] [address] ACT ACTIVATED CLOTTING Collected: 11/11/2017 Status: F Source: [place] TIME 11:48 AM [facility] REPOSITORY TYPE CODE TESTS RESULT OUT OF RANGE REFERENCE UNITS LAB L9100.0100 74-137 sec High ACTk CLOT 202 TIME Performed By: #### L9100.0100 #### [facility] Point of Care [address] [place] [address] BEDSIDE GLUCOSE Collected: 11/11/2017 Status: F Source: [place] 10:11 AM [facility] [facility]POS[facility] TYPE CODE TESTS RESULT OUT OF REFERENCE UNITS RANGE LAB L501.080 70-110 mg/dL High BEDSIDE GLU 160 Result Comment: Dr Rivas Followed MANAGEMENT OF PATIENT CARE PER NURSING PROTOCOL Performed By: #### L501.080 #### [facility] Point of Care [address] [place] [address] BASIC METABOLIC Collected: 11/11/2017 Status: F Source: [place] PROFILE (BMP) 5:55 AM [facility] REPOSITORY TYPE CODE TESTS RESULT OUT OF RANGE REFERENCE UNITS LAB L501.0100 74-106 mg/dL High GLU 113 Result Comment: Fasting Glucose result from 100 to 125 mg/dL suggests IMPAIRED HOMEOSTASIS per A.D.A. criteria. Please note revised GLUCOSE reference range effective 2017. LAB L501.1000 7-18 mg/dL High BUN 36 LAB L501.1100 0.55-1.02 mg/dL High CREAT,SERUM 1.17 Result Comment: The validity of the calculated GFR AND GFRAA in patients over 70 years has not been determined. Clinical correlation is essential. LAB L501.1110 >60 mL/min Low EST GFR 48 Result Comment: Non- GFR Calc LAB L501.1115 >60 mL/min Low EST GFR - AA 58 Result Comment: GFR Calc LAB L501.1255 ml/min Normal Estimated CRCL 34.38 LAB L501.1300 10-20 RATIO High BUN/CRE 30.8 LAB L501.2200 8.5-10 mg/dL Normal .1 CA 9.0 LAB L501.5300 136-14 mmol/L Normal 5 NA 142 LAB L501.5600 3.5-5. mmol/L Normal 1 K 4.2 Result Comment: Moderate Hemolysis, Result may be falsely increased. LAB L501.5900 98-107 mmol/L Normal CL 105 LAB L501.6100 21.0-32.0 mmol/L Normal CO2 28.0 LAB L501.6200 5-15 Normal 9 GAP Performed By: #### L500.2500 #### [facility] [address] [facility] [place], [address] PROTHROMBIN TIME W/INR Collected: 11/11/2017 Status: F Source: [place] 5:55 AM [facility] REPOSITORY Order Comment: Order Date: 11/11/17 TYPE CODE TESTS RESULT OUT OF RANGE REFERENCE UNITS LAB L300.4150 11.7-14.9 SECONDS Normal PROTIME 13.0 LAB L300.4200 Normal INR 1.0 Performed By: #### L300.3900 #### [facility] [address] [facility] [place], [address] URINALYSIS, COMPLETE Collected: 11/11/2017 Status: F Source: [place] 5:55 AM [facility] REPOSITORY Order Comment: Order Date: 11/11/17 How was Urine Obtained? CLEAN CATCH TYPE CODE TESTS RESULT OUT OF RANGE REFERENCE UNITS LAB L400.3000 Yellow COLOR Normal Yellow LAB L400.3050 Clear Normal CLARITY Clear LAB L400.3200 Normal mg/dl Normal GLUCOSE, UR Normal LAB L400.3300 Negative mg/dL Normal BILIRUBIN URINE Negative LAB L400.3400 Negative mg/dl Normal KETONE UR Negative LAB L400.3465 1.002-1.030 Normal SP.GR. DIPSTX 1.020 LAB L400.3550 5.0 - 8.0 pH UR Normal 6.0 LAB L400.3600 Negative mg/dl High PROT 30 DIPSTX LAB L400.3700 Normal mg/dl Normal UROBILI Normal LAB L400.3750 Negative Normal NITRITE UR Negative LAB L400.3780 Negative /ul Normal OCCULT BLOOD-UR Negative LAB L400.3800 Negative /ul LEUK Normal ESTERASE Negative LAB L400.4050 0-5 /hpf WBC 0 Normal SEEN LAB L400.4100 0-5 /hpf 0 Normal RBC-UA SEEN LAB L400.4150 5-10 /hpf SQUAM Normal EPI 0-5 SEEN LAB L400.4300 None Seen /hpf 0 Normal BACTERIA SEEN LAB L400.4350 <or=2+ /hpf 0 Normal MUCUS, URINE SEEN Performed By: #### L400.0001 #### [facility] [address] [place], [address] CBC W/DIFF, AUTOMATED Collected: 11/11/2017 Status: F Source: [place] 5:55 AM [facility] REPOSITORY TYPE CODE TESTS RESULT OUT OF RANGE REFERENCE UNITS LAB L100.1000 4.4-11.0 K/mm3 High WBC 16.1 LAB L100.1200 4.2-5.4 M/mm3 Normal RBC 4.31 LAB L100.1300 12.0-15.0 g/dl Normal HGB 12.5 LAB L100.1400 37-47 % Normal HCT 39.5 LAB L100.1500 81-99 fL Normal MCV 91.6 LAB L100.1600 27.0-32.0 pg Normal MCH 29.0 LAB L100.1700 32-36 g/gl Low MCHC 31.6 LAB L100.1810 11.6-14.6 % Normal RDW CV 14.3 LAB L100.1820 35.1-43.9 fl High RDW SD 48.8 LAB L100.1900 150-450 K/mm3 Normal PLT 279 LAB L100.2000 6.2-12.0 fl Normal MPV 10.5 LAB L100.2100 47-70 % High NEUT% 92.3 LAB L100.2200 19-41 % Low LY% 5.8 LAB L100.2300 0-10 % Normal MONO% 1.6 LAB L100.2400 0-5 % Normal EO% 0.1 LAB L100.2500 0-1 % Normal BASO% 0.0 LAB L100.2550 0.0-0.9 % Normal IM GRAN % 0.200 Result Comment: IG% - Immature Granulocytes (promyelocytes, myelocytes and metamyelocytes) > 1% indicates that a LEFT SHIFT is Present. LAB L100.2620 2.0-7.7 X10 3/uL High Absolute Neut 14.8 LAB L100.2720 0.83-4.51 X10 3/ul Normal Absolute Lymph 0.93 Performed By: #### L100.0100 #### [facility] [address] [place], [address] BEDSIDE GLUCOSE Collected: 11/10/2017 Status: F Source: [place] 9:54 PM [facility] REPOSITORY TYPE CODE TESTS RESULT OUT OF REFERENCE UNITS RANGE LAB L501.080 70-110 mg/dL High BEDSIDE GLU 164 Result Comment: MANAGEMENT OF PATIENT CARE PER NURSING PROTOCOL Performed By: #### L501.080 #### [facility] Point of Care [address] [place], [place] [address] BEDSIDE GLUCOSE Collected: 11/10/2017 Status: F Source: [place] 12:47 PM [facility] REPOSITORY TYPE CODE TESTS RESULT OUT OF REFERENCE UNITS RANGE LAB L501.080 70-110 mg/dL High BEDSIDE GLU 144 Result Comment: MANAGEMENT OF PATIENT CARE PER NURSING PROTOCOL Performed By: #### L501.080 #### [facility] Point of Care [address] [place] [address] CBC-COMPLETE BLOOD CNT Collected: 11/10/2017 Status: F Source: [place] NO DIFF 4:20 AM [facility] REPOSITORY TYPE CODE TESTS RESULT OUT OF RANGE REFERENCE UNITS LAB L100.1000 4.4-11.0 K/mm3 High WBC 18.5 LAB L100.1200 4.2-5.4 M/mm3 Normal RBC 4.79 LAB L100.1300 12.0-15.0 g/dl Normal HGB 14.1 LAB L100.1400 37-47 % Normal HCT 43.4 LAB L100.1500 81-99 fL Normal MCV 90.6 LAB L100.1600 27.0-32.0 pg Normal MCH 29.4 LAB L100.1700 32-36 g/gl Normal MCHC 32.5 LAB L100.1810 11.6-14.6 % Normal RDW CV 14.2 LAB L100.1820 35.1-43.9 fl High RDW SD 46.6 LAB L100.1900 150-450 K/mm3 Normal PLT 289 LAB L100.2000 6.2-12.0 fl Normal MPV 10.4 Performed By: #### L503.6620, L100.0500 #### [facility] [address] [place], [address] BLOOD GASES BY CPS Collected: 11/09/2017 Status: F Source: [place] 11:34 AM [facility] REPOSITORY TYPE CODE TESTS RESULT OUT OF RANGE REFERENCE UNITS LAB L9000.9990 Normal BLD GAS TYPE ART LAB L9001.1000 R Normal SITE Brachial LAB L9001.1010 NA Normal KESHAWN TEST LAB L9001.1050 O2 Normal Delivery Dev Nasal Can LAB L9001.1055 /min Normal LPM 4.0 LAB L9001.1104 Normal Results To HOSP MD LAB L9001.1105 Normal Time Given 1125 LAB L9001.1110 7.35-7.45 Low pH - I-STAT 7.34 LAB L9001.1210 35-45 mmHg Normal pCO2 - ISTAT 35.4 LAB L9001.1310 75-100 mmHG 83 Normal PO2 I-STAT LAB L9001.2300 22-26 mmol/L Low HCO3 ISTAT 18.9 LAB L9001.2400 -2 to +2 mmol/L Low BE -7 ISTAT LAB L9001.2415 mmol/L 20 Normal TOTAL CO2 ISTAT LAB L9001.2425 95-99 % 96 Normal SO2 ISTAT Performed By: #### L9000.0800 #### [facility] Point of Care [address] [place] [address] ECHOCARDIOGRAM COMPLETE Observed: 11/09/2017 Status: F Source: [place] 10:34 AM [facility] REPOSITORY [facility] Cardiovascular Services [address] [place] [address] Echo Complete 11/09/17808 MR#: [id number] Acct: [id number] Name: HEATHER MEYERS Rep #: [id number] : 1945 72 From: Nando Jefferson MD Attending Dr: Davide Villegas MD Status: ADM IN Ordering Dr: Nando Jefferson MD Date: 11/09/17 Location: ICU Sex: F C Admitted: 11/09/17 Reason For Study: Chest Pain Procedure This was a 2D Doppler, Color Flow transthoracic echocardiogram. Technically difficult study, patient was unable to lay down due to SOB. Exam performed portable in ICU/CCU. Left Ventricle Mildly dilated left ventricle. The estimated ejection fraction is 25 %. Stage 1 diastolic dysfunction. Mid-Anterior : Akinetic. Mid-anteroseptal : Akinetic. Anterior [place] : Akinetic. Inferior [place] : Akinetic. Right Ventricle Normal size and thickness. Normal systolic function. Atria Normal left atrium. Normal right atrium. Normal atrial septum. Mitral Valve Mild diffuse mitral valve thickening. Severe mitral annular calcification extending into the posterior leaflet. Tricuspid Valve Normal tricuspid valve. Trivial tricuspid valve insufficiency. Right ventricular systolic pressure estimated to be 39 mmHg. Mild pulmonary hypertension. Aortic Valve Trisinus/trileaflet aortic valve. Mild focal aortic valve thickening. Trivial aortic valve insufficiency. Pulmonic Valve The pulmonic valve is not well visualized. Great Vessels Normal aortic root. Normal arch. Normal inferior vena cava. Pericardium/Pleural No pericardial effusion. MMode/2D Measurements AND Calculations LVIDd: 5.1 cm IVSd: 1.1 cm LVOT diam: 2.0 cm LVIDs: 4.0 cm LVPWd: 0.59 cm LVOT area: 3.0 cm2 FS: 22.0 % Ao root diam: 3.0 cm LAV(MOD-bp): 35.0 ml LVAd ap4: 19.7 cm2 LA dimension: 3.3 cm LAV(MOD-bp) Indexed: 20.6 ml/m2 EDV(MOD-sp4): 58.0 ml LAV(MOD-sp2): 37.1 ml EDV(sp4-el): 56.5 ml LAV(MOD-sp4): 30.5 ml LVAs ap4: 16.2 cm2 ESV(MOD-sp4): 37.5 ml ESV(sp4-el): 39.4 ml EF(MOD-sp4): 35.4 % EF(sp4-el): 30.2 % SV(MOD-sp4): 20.6 ml SV(sp4-el): 17.1 ml LA A4 area: 13.0 cm2 RA A4 area: 10.1 cm2 Time Measurements MV dec time: 0.20 sec Doppler Measurements AND Calculations MV E max mao: 66.0 cm/sec Lat Peak E' Mao: 3.6 cm/sec Med Peak E' Mao: 2.9 cm/sec MV A max mao: 70.9 cm/sec E/E' lat: 18.5 E/E' med: 22.9 MV E/A: 0.93 MV V2 max: 80.9 cm/sec MV P1/2t max mao: 68.9 cm/sec Ao V2 max: 93.2 cm/sec MV max P.6 mmHg MV P1/2t: 76.3 msec Ao max P.5 mmHg MV V2 mean: 45.0 cm/sec MV dec slope: 264.6 cm/sec2 Ao V2 mean: 52.2 cm/sec MV mean P.96 mmHg MVA(P1/2t): 2.9 cm2 Ao mean P.3 mmHg MV V2 VTI: 20.0 cm Ao V2 VTI: 17.0 cm MVA(VTI): 2.1 cm2 QI(I,D): 2.5 cm2 QI(V,D): 2.6 cm2 AI max mao: 232.9 cm/sec LV V1 max: 79.3 cm/sec SV(LVOT): 42.2 ml AI max P.7 mmHg LV V1 max P.5 mmHg AI dec slope: 228.1 cm/sec2 LV V1 mean P.96 mmHg AI P1/2t: 299.1 msec LV V1 mean: 44.2 cm/sec LV V1 VTI: 14.0 cm PA V2 max: 52.2 cm/sec TR max mao: 301.4 cm/sec TR max P.4 mmHg Interpretation Summary Mildly dilated left ventricle. The estimated ejection fraction is 25 %. Stage 1 diastolic dysfunction. Mid-Anterior : Akinetic. Mid-anteroseptal : Akinetic. Anterior [place] : Akinetic. Inferior [place] : Akinetic. Trivial tricuspid valve insufficiency. Right ventricular systolic pressure estimated to be 39 mmHg. Mild pulmonary hypertension. Trivial aortic valve insufficiency. Compared to echo report dated 12/17/2016, LV Function has gone from 55% to 25%. Cannot exclude Takotsubo's cardiomyopathy. Recommend clinical correlation. The study was technically difficult. Ordering Physician: Nando Jefferson Referring Physician: JODI BUTLER Performed By: Sergey Millan RCS 11/09/17 1033 Date Nando Jefferson MD CC: Jodi Butler MD; Nando Jefferson MD; Davide Villegas MD Date Dictated: 11/09/17 0809 Date Transcribed: 11/09/17 1033 [employer]: Signed CONSULTATION Observed: 11/09/2017 Status: F Source: [place] 9:18 AM [facility] REPOSITORY [facility] Medical Records Department [address] [place] [id number] Consultation 11/09/17 09 MR#: [id number] Acct: [id number] Name: HEATHER MEYERS Rep #: [id number] : 1945 72 From: Nando Jefferson MD PCP: Jodi Butler MD Status: ADM IN Y Location: ICU [id number] Problem List (1) Congestive heart failure Status: Acute (2) NSTEMI (non-ST elevated myocardial infarction) Status: Acute (3) CAD (coronary artery disease) Status: Acute (4) Tobacco abuse Status: Acute (5) Hypertension Status: Chronic Qualifiers: (6) Hyperlipidemia Status: Chronic Qualifiers: (7) Atherosclerosis of [place] coronary artery of [place] heart without angina pectoris Status: Chronic Comment: PTCA/SUSAN to ostium of LMT 10/01/2014 @[facility]; Reason for Consult Date of Consultation: 11/09/17 Reason for Consultation: Chest pain, shortness of breath, non-STEMI, coronary artery disease, LV dysfunction, tobacco abuse, hypertension, hypercholesterolemia History of Present Illness: The patient is a 72 year old diabetic f patient of Dr. Rodrigues's, with a history of tobacco abuse, currently smoking in between her O2 therapy, chronic O2 therapy for COPD on 2 L nasal cannula at home, coronary artery disease status post angioplasty and stenting of the ostial portion of her left main around July 2014, followed by relook catheterization by Dr. Huggins on 12/18/16. This demonstrated widely patent left main stent, nonobstructive disease of her LAD, proximal left circumflex disease of 50%, ostial OM #1 of about 75%, and diffuse 60% disease in her proximal mid and distal right coronary artery. Her EF at that time was found to be normal. Patient last seen Dr. Rodrigues about 5 months ago and apparently was doing fairly well. Patient has been moving out of her home into another location, and was quite active yesterday. At around 4:00 this morning the patient awoke with severe worsening shortness of breath, wheezing, chest pain which she describes a 4 out of 10. EMS was called to her home, and multiple EKGs showed significant artifact, with difficult interpretation. Upon arrival to the emergency room an EKG after nebulizer therapy showed normal sinus rhythm with loss of R-wave forces of the anterior wall with evidence of anterolateral J-point elevation and ST segment rounding. Her chest pain was treated with nitroglycerin and completely resolved. Patient was placed on BiPAP therapy given IV diuretic therapy and nitroglycerin and stabilized. Her initial troponin was 1.35, now 0.92. Previous EKG in July 2017 showed normal sinus rhythm with excellent R-wave progression. Urgent bedside echo this morning shows akinetic anterior wall consistent with previous anterior wall myocardial infarction, which appears to be new from her catheterization in 2016. At that time her EF was normal. Overall ejection fraction is about 10-15%. Final results are pending. Currently the patient is on BiPAP therapy, and is awake, alert, answers questions appropriately. Her saturations are appropriate. I reviewed her chest x-ray which demonstrates chronic interstitial changes, significant COPD with bilateral apical blebs, and evidence of pulmonary vascular redistribution consistent with congestive heart failure. Patient denies any chest pain at this time. On further history the patient states that she has not been able to lay down flat due to shortness of breath for quite some time. She denies any recent chest pain or anginal symptoms over the summertime. She reports she has been compliant with her medications and continues on aspirin and Plavix. Past Medical History Allergies/Adverse Reactions: Allergies codeine Allergy (Unknown, Verified 11/09/17 03:33) Unknown fentanyl Allergy (Unknown, Verified 11/09/17 03:33) Unknown lithium Allergy (Unknown, Verified 11/09/17 03:33) Unknown morphine Allergy (Unknown, Verified 11/09/17 03:33) Unknown naproxen [From Naprosyn] Allergy (Unknown, Verified 11/09/17 03:33) Unknown phenobarbital Allergy (Unknown, Verified 11/09/17 03:33) Unknown Sulfa (Sulfonamide Antibiotics) Allergy (Unknown, Verified 11/09/17 03:33) Unknown albuterol Allergy (Verified 11/09/17 03:33) Rash Iodine and Iodide Containing Produc Adverse Reaction (Verified 11/09/17 03:33) Unknown Penicillins [PCN] Adverse Reaction (Verified 11/09/17 03:33) Unknown Home Medications: Ambulatory Orders Medication Instructions Recorded Amlodipine [Norvasc] 5 mg PO DAILY 07/13/14 Aspirin 325 mg PO DAILY@0800 07/13/14 Atorvastatin Calcium [Lipitor] 40 mg PO QHS 07/13/14 Past Medical History (Chronic Problems): Chronic Problems (Last Reviewed 11/09/17 @ 05:19 by Lokesh Sethi MD) Nonrheumatic tricuspid (valve) insufficiency (Chronic) Nonrheumatic mitral valve insufficiency (Chronic) Nicotine dependence, cigarettes, uncomplicated (Chronic) Hypertension (Chronic) Hyperlipidemia (Chronic) Atherosclerosis of [place] coronary artery of [place] heart without angina pectoris (Chronic) PTCA/SUSAN to ostium of LMT 10/01/2014 @[facility]; Peripheral vascular disease (Chronic) SOB (shortness of breath) (Chronic) Surgical History: appendectomy, - - cad with stent Psychiatric History: No pertinent psych hx 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 - *Family History Maternal Family History: Family History (Last Reviewed 11/09/17 @ 05:19 by Lokesh Sethi MD) Mother CAD (coronary artery disease) Hypertension Sister CAD (coronary artery disease) Myocardial infarction History Items: Diabetes, Heart Disease, Stroke Paternal Family History: Family History (Last Reviewed 11/09/17 @ 05:19 by Lokesh Sethi MD) Mother CAD (coronary artery disease) Hypertension Sister CAD (coronary artery disease) Myocardial infarction History Items: Diabetes, Stroke Smoking Status: Current every day smoker Review of Systems - Review of Systems General: Denies: Fever, Night Sweats, Fatigue Cardiovascular: Reports: Chest Discomfort, Chest Discomfort at Rest, Shortness of Breath, Shortness of Breath at Rest, Orthopnea, PND. Denies: Peripheral Edema, Palpitations, Lightheadedness, Dizziness, Near Syncope, Syncope Respiratory: Denies: Cough, Sputum Production, Hemoptysis Gastrointestinal: Denies: Hematemesis, Hematochezia, Melena Genitourinary: Denies: Dysuria, Hematuria Skin: Denies: Rash Subjectve: Patient on BiPAP therapy, appropriate respiratory rate. Good O2 sats. No chest pain. Objective: Vital Signs Temp Pulse Resp BP Pulse Ox 96 F L 77 27 H 104/75 97 11/09/17 05:45 11/09/17 07:56 11/09/17 07:56 11/09/17 07:56 11/09/17 07:56 Oxygen Delivery Method Bi-pap Weight: 152 lb 5.431 oz Body Mass Index (BMI) 27.8 Intake and Output for Last 24 Hours Intake Total 3.8 / 3.8 Balance 3.8 / 3.8 General: Awake, Alert, Oriented x 3 HEENT: PERRL, EOMI, Sclera Non Icteric Neck: Supple, Good ROM, No Lymph Node Enlargement Lungs: Rales - Jaspreet Bases, Inspiratory Wheezes - Jaspreet Cardiovascular: Regular Rhythm, Normal S1, Normal S2, No Murmurs, No Rubs, No Gallops Vascular: No Carotid Bruits, Normal Femoral Pulses, Normal Radial Pulses, Normal Dorsalis Pedal Pulse, Normal Posterior Tibial Pulses Abdomen: Bowel Sounds Present, Soft, Non Tender, No HSM, No Organomegaly Extremities: No Cyanosis, No Clubbing, No edema Neurological: No Focal Motor or Sensory Deficit 11/09/17 06:26: B-Natriuretic Peptide 526.4 H 11/09/17 06:26: Sodium 141, Potassium 3.9, Chloride 108 H, Carbon Dioxide 22.0, Anion Gap 11, BUN 23 H, Creatinine 1.27 H, Est GFR (MDRD) Af Amer 53 L, Est GFR (MDRD) Non-Af 44 L, BUN/Creatinine Ratio 18.1, Glucose 103, Calcium 8.5, Total Bilirubin 0.20, Direct Bilirubin < 0.05, Triglycerides 219 H, Cholesterol 259 H, LDL Cholesterol 176 H, VLDL Cholesterol 44 H, HDL Cholesterol 39 L 11/09/17 06:26: Troponin I 0.902 H* 11/09/17 07:48: VBG pH 7.31 L, VBG pO2 30, VBG O2 Sat (Calc) 51, VBG O2 Content 28, VBG Base Excess 0 Rhythm: EKG: ECHO: Stress Test: Cardiac Cath: PCI: CT Surgery: Holter monitor: EPS: PPM: CXR: Chest CT Scan: Assessment/Plan #1. Coronary artery disease: The patient presents with what appears to be new onset congestive heart failure with akinetic anterior wall by echocardiogram superimposed upon an EKG which shows loss of R-wave forces and anterolateral J-point elevation, shortness of breath, orthopnea, PND, and abnormal troponin. I reviewed the patient's catheterization films from her more recent cath in July 2016 where her left main stent was patent. She also had complex coronary disease of her proximal left circumflex and ostial obtuse marginal #1 as well as diffuse possibly significant mid and distal RCA stenosis as well. Her ejection fraction at that time was found to be normal. At this point it appears the patient has had an anterior wall myocardial infarction since her EKG in July 2017 at which time her R-wave forces were normal. Final echocardiogram readings are pending. Would recommend reduction of her metoprolol until her heart failure has been normalized. Would recommend starting her on Lasix 40 mg IV daily and attempt to decompress her pulmonary edema allowing her to lay flat for a repeat catheterization. This will also assist with removing her from her BiPAP therapy. Her troponins are trending downwards, suggesting she has ischemia from her stress of her event. Her EKG suggests possible aneurysm of the anterior wall with her ST segment changes as well. Recommend continuing baby aspirin, Plavix, and afterload reducing agents such as Cozaar. Once the patient is able to lay down flat would recommend that she undergo a repeat catheterization. Multivessel bypass surgery may be somewhat problematic given her COPD and chronic O2 therapy. At most percutaneous intervention may be her only option, and albeit on a staged basis versus medical therapy only. 2. COPD: The patient has evidence on her chest x-ray of chronic bilateral interstitial disease as well as apical blebbing. She has flattening of her diaphragms suggesting her COPD is significant and she is on chronic O2 therapy. 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 3. Hyperlipidemia: The patient is on a combination of gemfibrozil and Lipitor. Continue present management. 4. Discussed with Dr. Villegas. Thank you very much for the opportunity to participate in the cardiac care of your patient. Consultation time took place between 8 AM and 8:30 AM. Code Visit Inpatient E AND M: [id number] Init Hosp L2 11/09/17 0918 <Electronically signed by Nando Jefferson MD> Date Nando Jefferson MD Cosigner Signature (if applicable): Date CC: Jodi Butler MD; Nando Jefferson MD Signed TROPONIN-I Collected: 11/09/2017 Status: F Source: [place] 8:50 AM [facility] REPOSITORY Order Comment: 'TROP' Serial specimen #1, #2 or #3: 3 TYPE CODE TESTS RESULT OUT OF RANGE REFERENCE UNITS LAB L501.4010 <0.045 ng/mL High alert 0.781 TROPONIN-I Result Comment: TROPONIN-I EXPECTED VALUES <0.045 Negative 0.045 - 0.590 Consistent with Cardiac Damage > OR = 0.600 Critical Value Not every elevated troponin is indicative of IN. These values should be used with clinical judgement in examining the patient's clinical picture for diagnosis. To establish a diagnosis of IN versus myocardial injury, there must be a demonstrated rise and/or fall in the troponin values, in addition to ischemic symptoms, EKG changes, new regional wall motion abnormality, and/or angiographical evidence. PLEASE NOTE: REFERENCE RANGES EDITED 17 Performed By: #### L501.4010 #### [facility] [address] [place], [place], [address] VENOUS BLOOD GAS Collected: 11/09/2017 Status: F Source: [place] 7:48 AM [facility] REPOSITORY TYPE CODE TESTS RESULT OUT OF RANGE REFERENCE UNITS LAB L9000.9990 Normal BLD GAS TYPE DIEGO LAB L9001.1000 L Normal SITE Brachial LAB L9001.1050 O2 Bi Normal Delivery Dev / C PAP LAB L9001.1070 RR 14 Normal LAB L9001.1074 40 Normal FI02 LAB L9001.1088 8 Normal IPAP LAB L9001.1090 4 Normal EPAP LAB L9001.1104 Normal Results To HOSP MD LAB L9001.1105 Normal Time Given 740 LAB L9002.1110 7.32-7.42 Low VBGpH - I-STAT 7.31 LAB L9002.1212 41-51 mmHg High VBG pCO2 - 52.2 ISTA LAB L9002.1310 25-40 mmHg 30 Normal VBG PO2 I-STAT LAB L9002.2300 22-26 mmol/L 26 Normal VBG HCO3 ISTAT LAB L9002.2400 -1.0-3.5 mmol/L 0 Normal VBG BE ISTAT LAB L9002.2410 50-70 % 51 Normal VBG SO2 ISTAT LAB L9002.2415 23-33 mmol/L [address] ISTAT Performed By: #### L9000.0810 #### [facility] Point of Care [address] [place] [address] Observed: 11/09/2017 Status: F Source: [place] INFLUENZA A+B (RAPID 7:45 AM [facility]) REPOSITORY FLU A/B Rapid Negative test results should be confirmed by culture. Order Rapid Viral Culture for Influenzae A+B ([id number]) if clinically indicated. Influenza Ag, Direct Presumptive NEGATIVE for Influenza A/B Antigen (See Note) Performed By: #### M101.0101 #### [facility] [address] [place], [address] LIVER PROFILE Collected: 11/09/2017 Status: F Source: [place] 6:26 AM [facility] REPOSITORY TYPE CODE TESTS RESULT OUT OF RANGE REFERENCE UNITS LAB L501.1500 6.4-8.2 g/dL Normal T PROT 8.0 LAB L501.1800 3.2-5.0 g/dL Normal ALB 3.5 LAB L501.1950 2.2-4.2 g/dL High GLOB 4.5 LAB L501.4100 15-37 U/L Normal AST 21 LAB L501.4305 45-117 U/L Normal ALK P 96 LAB L501.4405 13-56 U/L Normal ALT 21 LAB L501.4600 0.20-1.00 mg/dL Normal T BILI 0.20 LAB L501.4700 0.00-0.30 mg/dL Normal D BILI < 0.05 Performed By: #### L500.3400, L500.4050, L500.4100, L501.9520 #### [facility] [address] [place], [address] COMPREHENSIVE METABOLIC Collected: 11/09/2017 Status: F Source: [facility] 6:26 AM [facility] REPOSITORY TYPE CODE TESTS RESULT OUT OF RANGE REFERENCE UNITS LAB L501.0100 74-106 mg/dL Normal GLU 103 Result Comment: Fasting Glucose result from 100 to 125 mg/dL suggests IMPAIRED HOMEOSTASIS per A.D.A. criteria. Please note revised GLUCOSE reference range effective 2017. LAB L501.1000 7-18 mg/dL High BUN 23 LAB L501.1100 0.55-1.02 mg/dL High CREAT,SERUM 1.27 Result Comment: The validity of the calculated GFR AND GFRAA in patients over 70 years has not been determined. Clinical correlation is essential. LAB L501.1110 >60 mL/min Low EST GFR 44 Result Comment: Non- GFR Calc LAB L501.1115 >60 mL/min Low EST GFR - AA 53 Result Comment: GFR Calc LAB L501.1255 ml/min Normal Estimated CRCL 31.67 LAB L501.1300 10-20 RATIO Normal BUN/CRE 18.1 LAB L501.2000 0.9-2. RATIO Low 4 A/G 0.8 LAB L501.2200 8.5-10 mg/dL Normal .1 CA 8.5 LAB L501.5300 136-14 mmol/L Normal 5 NA 141 LAB L501.5600 3.5-5. mmol/L Normal 1 K 3.9 LAB L501.5900 98-107 mmol/L High CL 108 LAB L501.6100 21.0-3 mmol/L Normal 2.0 CO2 22.0 LAB L501.6200 5-15 Normal GAP 11 Performed By: #### L500.3400, L500.4050, L500.4100, L501.9520 #### [facility] [address] [place], [place], [id number] LIPID PROFILE Collected: 11/09/2017 Status: F Source: [place] 6:26 AM [facility] REPOSITORY TYPE CODE TESTS RESULT OUT OF RANGE REFERENCE UNITS LAB L501.4900 200 mg/dL High CHOL 259 Result Comment: <200 mg/dL Desirable 200-240 mg/dL Borderline >240 mg/dL High Risk LAB L501.5000 mg/dL High TRIG 219 Result Comment: The drugs N-Acetylcysteine and Metamizole may falsely depress this assay. Serum Triglycerides Reference Interval Normal <150 mg/dL Borderline high 150 - 199 mg/dL High 200 - 499 mg/dL Very High > or = 500 mg/dL LAB L501.6400 mg/dL Low HDL 39 Result Comment: The drugs N-Acetylcysteine and Metamizole may falsely depress this assay. Reference Range HDL <40 mg/dL Low HDL Cholesterol HDL >or= 60 mg/dL High HDL Cholesterol LAB L501.6500 0-130 mg/dL High LDL 176 LAB L501.6600 5-40 mg/dL High VLDL 44 Performed By: #### L500.3400, L500.4050, L500.4100, L501.9520 #### [facility] [address] [place], [address] THYROID STIM HORMONE Collected: 11/09/2017 Status: F Source: [place] ([facility]) 6:26 AM [facility] REPOSITORY TYPE CODE TESTS RESULT OUT OF RANGE REFERENCE UNITS LAB L501.9520 0.358-3.74 uIU/mL High TSH 4.84 Performed By: #### L500.3400, L500.4050, L500.4100, L501.9520 #### [facility] [address] [place], [address] BNP,B-TYPE NATRIURETIC Collected: 11/09/2017 Status: F Source: [place] 6:26 AM [facility] REPOSITORY TYPE CODE TESTS RESULT OUT OF RANGE REFERENCE UNITS LAB L503.6620 0-100 pg/mL High B-TYPE 526.4 TAMIKA PEP Performed By: #### L503.6620, L100.0500 #### [facility] [address] [place], [address] HISTORY AND PHYSICAL Observed: 11/09/2017 Status: F Source: [place] EXAM 5:27 AM [facility] REPOSITORY [facility] Medical Records Department [address] [place] [address] History and Physical 11/09/17 0513 MR#: [id number] Acct: [id number] Name: HEATHER MEYERS Rep #: [id number] : 1945 72 From: Lokesh Sethi MD PCP: Jodi Butler MD Status: ADM IN Y Location: ICU [id number] Problem List (1) NSTEMI (non-ST elevated myocardial infarction) Status: Acute (2) COPD exacerbation Status: Acute (3) CAD (coronary artery disease) Status: Acute (4) Tobacco abuse Status: Acute (5) Nonrheumatic tricuspid (valve) insufficiency Status: Chronic (6) Nonrheumatic mitral valve insufficiency Status: Chronic (7) Hypertension Status: Chronic Qualifiers: (8) Hyperlipidemia Status: Chronic Qualifiers: (9) Peripheral vascular disease Status: Chronic (10) SOB (shortness of breath) Status: Chronic History of Present Illness Date of Admission: 11/09/17 Chief Complaint: Chest pain The patient is a 72 year old female w/ h/o CAD s/p left main stenting in 2014, hypertension, and hyperlipidemia admitted for chest pain. She had a heart catheterization in Dec 2016 which showed diffuse disease in her LAD and RCA but with no obvious obstructive high-grade coronary stenosis and a patent left main stent and an echocardiogram from December 2016 showed an ejection fraction 55%, mild mitral valve insufficiency, and mild to moderate tricuspid valve insufficiency. She woke up at 2AM with chest pain and SOB. Chest pain was severe. Chest pain was sudden. Pain was pressure and crushing, substernal. She took 2 nitro and wanted to get into the car. The pain was so severe that she was unable to get into the car. EMS was called. Nothing made the pain better or worse. She had similar pain in December 2016 when she had the heart cath. EKG on the field disclosed anterolateral changes. Her pain improved with nitro. Past Medical History Past Medical History (Chronic Problems): Chronic Problems (Last Reviewed 11/09/17 @ 05:19 by Lokesh Sethi MD) Nonrheumatic tricuspid (valve) insufficiency (Chronic) Nonrheumatic mitral valve insufficiency (Chronic) Nicotine dependence, cigarettes, uncomplicated (Chronic) Hypertension (Chronic) Hyperlipidemia (Chronic) Atherosclerosis of [place] coronary artery of [place] heart without angina pectoris (Chronic) PTCA/SUSAN to ostium of LMT 10/01/2014 @[facility]; Peripheral vascular disease (Chronic) SOB (shortness of breath) (Chronic) Medical History: Medical History (Last Reviewed 11/09/17 @ 05:19 by Lokesh Sethi MD) Nonrheumatic tricuspid (valve) insufficiency (Chronic) I36.1 Nonrheumatic mitral valve insufficiency (Chronic) I34.0 Nicotine dependence, cigarettes, uncomplicated (Chronic) F17.210 Hypertension (Chronic) I10 Hyperlipidemia (Chronic) E78.5 Atherosclerosis of [place] coronary artery of [place] heart without angina pectoris (Chronic) I25.10 PTCA/SUSAN to ostium of LMT 10/01/2014 @[facility]; Peripheral vascular disease (Chronic) I73.9 SOB (shortness of breath) (Chronic) R06.02 Anemia D64.9 COPD (chronic obstructive pulmonary disease) J44.9 Diabetes mellitus E11.9 Fibromyalgia M79.7 GERD (gastroesophageal reflux disease) K21.9 Hyperlipidemia E78.5 MARISABEL (obstructive sleep apnea) G47.33 Allergies codeine Allergy (Unknown, Verified 11/09/17 03:33) Unknown fentanyl Allergy (Unknown, Verified 11/09/17 03:33) Unknown lithium Allergy (Unknown, Verified 11/09/17 03:33) Unknown morphine Allergy (Unknown, Verified 11/09/17 03:33) Unknown naproxen [From Naprosyn] Allergy (Unknown, Verified 11/09/17 03:33) Unknown phenobarbital Allergy (Unknown, Verified 11/09/17 03:33) Unknown Sulfa (Sulfonamide Antibiotics) Allergy (Unknown, Verified 11/09/17 03:33) Unknown albuterol Allergy (Verified 11/09/17 03:33) Rash Iodine and Iodide Containing Produc Adverse Reaction (Verified 11/09/17 03:33) Unknown Penicillins [PCN] Adverse Reaction (Verified 11/09/17 03:33) Unknown Home Medications: Ambulatory Orders Medication Instructions Recorded Amlodipine [Norvasc] 5 mg PO DAILY 07/13/14 Aspirin 325 mg PO DAILY@0800 07/13/14 Atorvastatin Calcium [Lipitor] 40 mg PO QHS 07/13/14 Surgical History: Surgical History (Last Reviewed 11/09/17 @ 05:19 by Lokesh Sethi MD) H/O tubal ligation Z98.51 History of left heart catheterization Z98.890 Hx of appendectomy Z98.890, Z90.49 S/P femoral-femoral bypass surgery Z95.828 with gorortex graft in 2001; removal of infected graft with reconstructions of right superficial artery in 2002 Surgical History: appendectomy, - - cad with stent Psychiatric History: No pertinent psych hx 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 Smoking Status: Current every day smoker - *Family History Maternal Family History: Family History (Last Reviewed 11/09/17 @ 05:19 by Lokesh Sethi MD) Mother CAD (coronary artery disease) Hypertension Sister CAD (coronary artery disease) Myocardial infarction History Items: Diabetes, Heart Disease, Stroke Paternal Family History: Family History (Last Reviewed 11/09/17 @ 05:19 by Lokesh Sethi MD) Mother CAD (coronary artery disease) Hypertension Sister CAD (coronary artery disease) Myocardial infarction History Items: Diabetes, Stroke Review of Systems Constitutional: Denies: Chills, Fever, Weight Change HEENT: Denies: Head Aches, Sinus Congestion, Sinus Drainage Cardiovascular: Reports: Chest Pain, Chest Pressure. Denies: Palpitations Respiratory: Denies: Cough, Shortness of breath at rest, Sputum production Gastrointestinal: Denies: Abdominal Pain, Nausea, Vomiting Genitourinary: Denies: Dysuria Musculoskeletal: Denies: Joint Pain, Joint Tenderness Skin: Denies: Rash, Wounds Neurological: Denies: Numbness, Tingling, Focal weakness Psychiatric: Denies: Anxiety, Depression, Homicidal Ideations, Suicidal Ideations Hematologic/ Lymphatic: Denies: Easy Bruising, Easy Bleeding VTE Information - Inpt Only VTE Present on Admission: No VTE Mechan Device Prophylaxis: SCD's VTE Pharm Prophylaxis ordered?: Yes Patient Problems: Active and Suspected Problems (Last Reviewed 11/09/17 @ 05:19 by Lokesh Sethi MD) NSTEMI (non-ST elevated myocardial infarction) (Acute) COPD exacerbation (Acute) CAD (coronary artery disease) (Acute) Tobacco abuse (Acute) - Physical Exam General: Alert, Oriented x3, Cooperative HEENT: Atraumatic, PERRLA, EOMI, Normocephalic Neck: Supple, No JVD, Negative Carotid Bruits Lungs: Clear to auscultation, Normal air movement Cardiovascular: Regular rate, No murmurs Abdomen: Bowel Sounds Present, Soft, Non Tender Extremities: No edema, Capillary Refill Less than 3 Seconds Skin: No rashes, No breakdown Musculoskeletal: No Tenderness to Palpation of Joints or Extremities Neurological: Cranial nerves II-XII grossly intact Psych/Mental Status: Normal Affect, Appropriate Vital Signs Temp Pulse Resp BP Pulse Ox 96.3 F L 81 32 H 100/62 98 11/09/17 03:15 11/09/17 04:41 11/09/17 04:41 11/09/17 04:41 11/09/17 04:41 Oxygen Flow Rate (L/min) 15 Oxygen Delivery Method Bi-pap Weight: 71.4 kg Body Mass Index (BMI) 28.8 Laboratory Tests Past 24 Hrs WBC 18.0 H RBC 5.28 Hgb 15.9 H Hct 48.0 H MCV 90.9 MCH 30.1 MCHC 33.1 RDW 14.3 RDW Differential 46.8 H Plt Count 402 Assessment/Plan All Active Problems (Last Reviewed 11/09/17 @ 05:19 by Lokesh Sethi MD) NSTEMI (non-ST elevated myocardial infarction) (Acute) COPD exacerbation (Acute) CAD (coronary artery disease) (Acute) Tobacco abuse (Acute) 72 year old female w/ h/o CAD s/p left main stenting in 2015, hypertension, and hyperlipidemia admitted for chest pain. 1) NSTEMI: EKG disclosed lateral T-wave inversion, minimal ST elevation in the lateral lead but no reciprocal changes. Trop 1.35 Chest pain improved. Cards carded from the ED and recommended nitro gtt and lovenox. Pt has allergy to morphine. Will resume home meds. Pt is max on medical management. Serial trops. ECHO in AM. 2) ALIVIA with superimposed CKD: Baseline Cr 0.7 Cr 1.3. Hydration. Supportive care. 3) Acute hypoxic respiratory failure secondary to COPD exacerbation: C/w bipap. Will start solumedrol and azithromycin. Allergy to duoneb and ceftriaxone. Cultures pending. 4) Tobacco abuse: Education done. 5) Prophylaxis: SCD / lovenox. 11/09/17 0527 <Electronically signed by Lokesh Sethi MD> Date Lokesh Sethi MD Cosigner Signature: Date (if applicable) CC: Jodi Butler MD; Lokesh Sethi MD Signed EMERGENCY DEPARTMENT Observed: 11/09/2017 Status: F Source: [place] SUMMARY 5:03 AM [facility] REPOSITORY [facility] Medical Records Department [address] [place] [address] Emergency Department Summary 11/09/17 0428 MR#: [id number] Acct: [id number] Name: HEATHER MEYERS Rep #: [id number] : 1945 72 From: Yuli Goodman MD PCP: Jodi Butler MD Status: REG ER - ER Visit Summary Date of Service: 11/09/17 Chief Complaint: Shortness of breath, chest pain History of Present Illness: The patient is a 72 F presenting with shortness of breath, chest pain. Patient states she awoke from sleep with severe shortness of breath and diffuse chest pain. She took 2 nitro. EMS was called. She was put on nonrebreather mask per EMS and given aspirin. EKG per EMS showed artifact and concern for anterolateral changes. Patient had an IN in December 2016. She states her pain feels similar. On arrival she has difficulty speaking secondary to respiratory distress. Physical Examination: Vitals are stable. Patient is afebrile. Alert moderate distress. HEENT exam is unremarkable. Neck is supple. Lungs are wheezing bilaterally. Tachypnea, retractions. Heart is regular rate and rhythm. Abdomen is soft nontender nondistended. Extremities are unremarkable. Skin is warm and dry. No focal neurologic deficit. Remainder of exam is unremarkable. Emergency Department Course and Treatment: Patient is given DuoNeb on arrival. She is started on noninvasive ventilation. She has much improvement of her breathing. She states her chest pain is now much improved also. Initial EKG shows sinus rhythm rate of 94 changed from previous, poor R-wave progression, lateral T-wave inversion, minimal ST elevation, no reciprocal changes. CBC showed a white count of 18.0. Chemistry showed glucose 297, BUN 22, creatinine 1.35. Troponin is 1.35. Chest x-ray shows chronic interstitial lung changes without superimposed acute alveolar disease. Patient was discussed with Dr. Jefferson. EKG was faxed to Dr. Jefferson. She was started on nitro drip, given Lovenox, Solu-Medrol IV, Lasix IV. She is improved on re-evaluation. Her breathing has improved. Her chest pain is resolved. Discussed with the hospitalist for admission to the ICU. Disposition: Admission Impression: Respiratory distress, COPD exacerbation, recent IN This note was generated with [employer] dictation software. It may contain incorrect words, spelling, and punctuation that were not noted in review of the chart prior to signing ED Disposition - Plan for ED Patient: Chief Complaint: Chest Pain Referrals: Jodi Butler MD [Primary Care Provider] - What to do if you have Problems For any increased pain, shortness of breath, bleeding, nausea or vomiting, chest pain, or any unexpected problems, contact your Primary Care Provider. Call [facility] ([phone]) or report to the closest Emergency Room. Call 911 if necessary. 11/09/17 0922 <Electronically signed by Yuli Goodman MD> Date Yuli Goodman MD Cosigner Signature (If Indicated): Date CC: Jodi Butler MD CHEST 1 VIEW Observed: 11/09/2017 Status: F Source: [place] (PORT[place]) 3:37 AM [facility] REPOSITORY [facility] Imaging Services [address] [place] [address] Chest 1 View (Portable) MR#: [id number] Acct: [id number] Name: HEATHER MEYERS Rep #: [id number] : 1945 F 72 From: Gio Garg MD PCP: Jodi Butler MD Status: REG ER Study: Chest 1 View (Portable) Date of Exam: 11/09/17 Exam# [id number] Ordering Dr: Yuli Goodman MD ADDENDUM by Gio Garg MD on 11/09/17 at 0445 RAD/Chest 1 View (Portable) 11/09/17 0452 Date cc: Yuli Goodman MD; Jodi Butler MD * Signed ADDENDUM by Gio Garg MD on 11/09/17 at 0445 ADDENDUM The first sentence of the FINDINGS and the IMPRESSION should read Chronic interstitial lung changes without superimposed acute alveolar disease. Electronically Signed: Gio Garg MD at 4:45 EDT Tel , Service support , 11/09/17 0445 Date cc: Yuli Goodman MD; Jodi Butler MD * Signed STUDY: X-RAY CHEST REASON FOR EXAM: Female, 72 years old. SOB and chest pain TECHNIQUE: Single frontal view of the chest. COMPARISON: 07/17/2017 FINDINGS: 2 mm stone in the distal left ureter at the level of the ureterovesical junction with changes of moderate acute obstructive uropathy. There is no demonstrated pleural abnormality. Normal size heart. Normal mediastinum and danielle. Normal visualized pulmonary arteries. Normal visualized aortic arch and descending thoracic aorta. Normal visualized thoracic spine. Normal visualized ribs, clavicles, and shoulders. There is no demonstrated abnormality of the visualized soft tissue structures of the upper abdomen. RAD/Chest 1 View (Portable) IMPRESSION: 2 mm stone in the distal left ureter at the level of the ureterovesical junction with changes of moderate acute obstructive uropathy. Electronically Signed: Gio Garg MD at 4:26 EDT Tel , Service support , CC: Yuli Goodman MD; Jodi Butler MD Superintendent [employer]: Signed CBC W/DIFF, AUTOMATED Collected: 11/09/2017 Status: F Source: [place] 3:23 AM [facility] REPOSITORY TYPE CODE TESTS RESULT OUT OF RANGE REFERENCE UNITS LAB L100.1000 4.4-11.0 K/mm3 High WBC 18.0 LAB L100.1200 4.2-5.4 M/mm3 Normal RBC 5.28 LAB L100.1300 12.0-15.0 g/dl High HGB 15.9 LAB L100.1400 37-47 % High HCT 48.0 LAB L100.1500 81-99 fL Normal MCV 90.9 LAB L100.1600 27.0-32.0 pg Normal MCH 30.1 LAB L100.1700 32-36 g/gl Normal MCHC 33.1 LAB L100.1810 11.6-14.6 % Normal RDW CV 14.3 LAB L100.1820 35.1-43.9 fl High RDW SD 46.8 LAB L100.1900 150-450 K/mm3 Normal PLT 402 LAB L100.2000 6.2-12.0 fl Normal MPV 10.7 LAB L100.2100 47-70 % Normal NEUT% 67.2 LAB L100.2200 19-41 % Normal LY% 25.0 LAB L100.2300 0-10 % Normal MONO% 5.7 LAB L100.2400 0-5 % Normal EO% 1.2 LAB L100.2500 0-1 % Normal BASO% 0.4 LAB L100.2550 0.0-0.9 % Normal IM GRAN % 0.500 Result Comment: IG% - Immature Granulocytes (promyelocytes, myelocytes and metamyelocytes) > 1% indicates that a LEFT SHIFT is Present. LAB L100.2620 2.0-7.7 X10 3/uL High Absolute Neut 12.1 LAB L100.2720 0.83-4.51 X10 3/ul Normal Absolute Lymph 4.49 LAB L100.4500 Normal SMEAR COMMENT SCANNED Result Comment: AUTO DIFF OK Performed By: #### L100.0100 #### [facility] [address] [place], [address] BASIC METABOLIC Collected: 11/09/2017 Status: F Source: [place] PROFILE ([facility]) 3:23 AM [facility] REPOSITORY TYPE CODE TESTS RESULT OUT OF RANGE REFERENCE UNITS LAB L501.0100 74-106 mg/dL High GLU 297 Result Comment: Glucose result greater than or equal to 200 mg/dL suggests DIABETES MELLITUS per A.D.A. criteria. Please note revised GLUCOSE reference range effective 2017. LAB L501.1000 7-18 mg/dL High BUN 22 LAB L501.1100 0.55-1.02 mg/dL High CREAT,SERUM 1.35 Result Comment: The validity of the calculated GFR AND GFRAA in patients over 70 years has not been determined. Clinical correlation is essential. LAB L501.1110 >60 mL/min Low EST GFR 41 Result Comment: Non- GFR Calc LAB L501.1115 >60 mL/min Low EST GFR - AA 50 Result Comment: GFR Calc LAB L501.1255 ml/min Normal Estimated CRCL 29.79 LAB L501.1300 10-20 RATIO Normal BUN/CRE 16.3 LAB L501.2200 8.5-10 mg/dL Normal .1 CA 8.6 LAB L501.5300 136-14 mmol/L Normal 5 NA 142 LAB L501.5600 3.5-5. mmol/L Normal 1 K 4.6 LAB L501.5900 98-107 mmol/L Normal CL 106 LAB L501.6100 21.0-3 mmol/L Normal 2.0 CO2 22.0 LAB L501.6200 5-15 Normal GAP 14 Performed By: #### L500.2500, L501.4010 #### [facility] [address] [place], [place], [address] TROPONIN-I Collected: 11/09/2017 Status: F Source: [place] 3:23 AM [facility] REPOSITORY TYPE CODE TESTS RESULT OUT OF RANGE REFERENCE UNITS LAB L501.4010 <0.045 ng/mL High alert 1.350 TROPONIN-I Result Comment: Critical Result(s) Called at: 04:03:00 11/09/2017 by: ALISE TURPIN TROPONIN-I EXPECTED VALUES <0.045 Negative 0.045 - 0.590 Consistent with Cardiac Damage > OR = 0.600 Critical Value Not every elevated troponin is indicative of IN. These values should be used with clinical judgement in examining the patient's clinical picture for diagnosis. To establish a diagnosis of IN versus myocardial injury, there must be a demonstrated rise and/or fall in the troponin values, in addition to ischemic symptoms, EKG changes, new regional wall motion abnormality, and/or angiographical evidence. PLEASE NOTE: REFERENCE RANGES EDITED 17 Performed By: #### L500.2500, L501.4010 #### [facility] [address] [place], [address] CNOV Observed: 07/26/2017 Status: COMPLETED Source: [place] 2:00 PM [facility] REPOSITORY Office Visit (PULMWS) HEATHER MEYERS ([id number]) 1945 F Date Time Provider Department 07/26/17 2:00 PM GOLDIE PARSON PULPrashanthWS During your visit today, we recorded the following information about you: Pulse Respiration Blood pressure Weight 74/minute 19/minute 118/62 70.8 kg Height 1.588 m Hailey Kitchen NICOLAS 07/26/2017 1:50 PM Signed Intake information documented in the prior visit with Sammie Velazquez, REFRACTORY TECHNICIAN today. Goldie Parson PA-C 07/26/2017 2:19 PM Signed [facility] [place], 07/26/17: HPI: The patient is here for follow up of COPD. Since the last Pulmonary Clinic visit, the patient was evaluated in [place] ED on 07/17/17 secondary to dyspnea and increased cough. CXR: stable chronic findings. NT proBNP normal. EKG unremarkable. CBC and BMP unremarkable. Troponin negative.Treated for COPD exacerbation with Doxycycline and Prednisone. Patient has completed therapy. Today, she states she feels improved and back to baseline. Patient compliant with prescribed Rx. Daily cough. Clear sputum. No hemoptysis. No pleuritic chest pain. Always wheezing. Exertional dyspnea, decreased exertional tolerance. Supplemental oxygen 2 L continuous. However, when she is out of her house she does carrying portable oxygen tanks. DME: [facility]. Once daily nebulizer treatments. PMH changes: Reviewed with patient today. No changes. FAMH changes: Reviewed with patient today. No changes. SOCH changes: I am smoking less. Immunization History Administered Date(s) Administered Influenza Seasonal - High Dose - Age 65+ 02/05/2014 03/02/2015 11/18/2015 12/18/2016 Influenza Vaccine, Split-Non Spec 01/18/2005 Pneumococcal-13 Vac Conjugate 04/14/2015 Pneumovax 04/13/2005 02/05/2014 TD Adult 11/18/2006 ROS: General: Generally feels improved. Appetite good. Weight stable. Eyes, Ears, nose, throat: No post nasal drip, rhinorrhea, purulent nasal discharge, epistaxis. No hoarseness. Vision stable. Cardiac: No angina. Lower extremity edema last week. No orthopnea. GI: No heartburn, dysphagia, diarrhea. 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 Musculoskeletal: No pain. Neuro: No headache, focal weakness, tremor. Skin: No rash. Otherwise negative. Allergies were reviewed and updated, and medications were reconciled with the patient. Immunization History Administered Date(s) Administered Influenza Seasonal - High Dose - Age 65+ 02/05/2014 03/02/2015 11/18/2015 12/18/2016 Influenza Vaccine, Split-Non Spec 01/18/2005 Pneumococcal-13 Vac Conjugate 04/14/2015 Pneumovax 04/13/2005 02/05/2014 TD Adult 11/18/2006 PHYSICAL EXAMINATION: BP 118/62 Pulse 74 Resp 19 Ht 5' 2.5 (1.59m) Wt 156 lb (70.8kg) SpO2 91% BMI 28.06 kg/(m2). O2: RA. Gen: No acute distress. Cooperative with examination. ENT: Sclerae clear. Nares clear. Oral hygeine and dentition good. Pharynx clear. No halitosis. Resp: No stridor, accessory respiratory muscle use, supra- sternal or intercostal retractions. No wheezes, crackles, rubs. CV: Regular rythm. Heart tones normal. Radial pulses normal. Abd: Non distended. MSK: No kyphoscoliosis, joint deformities of the extremities. Ext: Warm and well perfused. No clubbing, cyanosis, edema. Skin: Color normal. Texture normal. No rash, eczema, urticaria, ecchymoses. Neuro: Mental status normal. Affect normal. Muscle tone normal, symmetrical. No tremor. DATA REVIEW: PULMONARY FUNCTION TESTING DATE: 07/26/17 10/29/2016 05/19/2015 FVC 1.78, 65% 1.99, 71% 2.10, 74% FEV1 0.95, 46% 0.93, 44% 1.18, 55% FEV1/FVC 0.53 0.47 0.56 Oximetry, 07/26/17 InspO2* ? SpO2% ? ? HR Activity ?Feet ?Time ? MPH ?Flag RA ? 86 ? ? 68 resting NC2 ?94 ? ? 68 resting NC2 ?90 ? ? 96 walking, usual pace ? ?264 ?3.00 ?1.00 NC2 ?91 ? ? 94 resting ? 1 min. post * RA = room air, NC2 = O2 by nasal cannula at 2 LPM, ? ? ?TT2=O2 by trans-tracheal catherter at 2 LPM, etc. IMPRESSION/RECOMMEND: 1. Severe chronic obstructive pulmonary disease. Smoking cessation is critical. Continue Breo 1 inhalation once daily. Continue Spiriva Respimat 2 inhalations once daily. Continue Atrovent HFA 17 mcg/actuation 2 inhaltions?up to 4 times daily?as needed for dyspnea/wheezing. Continue Xopenex nebulized treatments up to 4 times daily as needed for wheezing/shortness of breath. Up to date on annual influenza and pneumonia vaccines. ?? 2. Tobacco use disorder, continuous. Congratulations on decreasing your number of cigarettes.? ? 3. Hypoxemia. - Continue with 2 L supplemental oxygen at all times. - You must use supplemental oxygen when you are out of the house. - Will send an order to [facility] to evaluate for portable oxygen concentrator. - I re-addressed the pathophysiology of chronic bronchitis, emphysema, and COPD; and reviewed the management of this condition as outlined in the GOLD and ATS guidelines, including: smoking cessation, Pneumococcal and annual Influenza vaccination, bronchodilators, inhaled corticosteroids, antibiotics, exercise/rehabilitation, and oxygen. - I also again discussed mechanisms of action of medications, alternatives, and potential side effects of treatment. I addressed the questions of the patient, and she expressed understanding and acceptance of my answers. Goldie Parson PA-C [facility] [place] [address] [place] [address] Goldie Parson PA-C 07/26/2017 2:18 PM Signed 1. Severe chronic obstructive pulmonary disease. Smoking cessation is critical. Continue Breo 1 inhalation once daily. Continue Spiriva Respimat 2 inhalations once daily. Continue Atrovent HFA 17 mcg/actuation 2 inhaltions?up to 4 times daily?as needed for dyspnea/wheezing. Continue Xopenex nebulized treatments up to 4 times daily as needed for wheezing/shortness of breath. Up to date on annual influenza and pneumonia vaccines. ?? 2. Tobacco use disorder, continuous. Congratulations on decreasing your number of cigarettes.? ? 3. Hypoxemia. - Continue with 2 L supplemental oxygen at all times. - You must use supplemental oxygen when you are out of the house. - Will send an order to [facility] to evaluate for portable oxygen concentrator. Referring Provider: GOLDIE PARSON [[id number]] Allergies As of Date: 07/26/2017 Noted Allergy Reaction FENTANYL 08/28/2010 5 - Intolerance ALBUTEROL 11/02/2004 4 - Hives CATS 07/22/2007 CODEINE 11/02/2004 4 - Hives DOGS 07/22/2007 environmental [Other] 07/22/2007 Comments: Trees,grass,pollen IODINE 11/02/2004 2 - Rash LITHIUM 11/02/2004 Comments: Reverse reaction - severe anger MORPHINE 01/11/2012 11 - Vomiting NAPROSYN (NAPROXEN) 06/28/2006 PENICILLINS 11/02/2004 4 - Hives PHENOBARBITAL 11/03/2004 4 - Hives SULFA (SULFONAMIDE ANTIBIOTICS) 11/02/2004 2 - Rash 4 - Hives Date Reviewed: 07/26/2017 Reviewed by: Goldie Parson - Fully Assessed Reason for Visit: Established Patient [175] Cmt: COPD Primary Visit Diagnosis:End stage COPD (HCC) [J44.9] Other Visit Diagnoses:Tobacco use disorder [F17.200] Hypoxia [R09.02] Order(s):SPIROMETRY BASELINE ONLY [[id number]] Order #: [id number] FUTURE COMPOUNDED PRESCRIPTIONEvaluate for portable oxygen concentrator. Patient requires 2 L supplemental O2. DME: [facility].Disp: 1 EachRfl: 0 Prescriptions as of 07/26/2017 Sig: LEVALBUTEROL 0.63 MG/3 ML NATAN* Take (1) nebulizer treatment * IPRATROPIUM BROMIDE 17 MCG/AC* Inhale 2 Puffs as instructed * SPIRIVA RESPIMAT 2.5 MCG/ACTU* Inhale 2 Inhalation as instru* CYCLOBENZAPRINE 10 MG TABLET Take 1 tablet by mouth once d* BREO ELLIPTA 200 MCG-25 MCG/D* Inhale 1 Inhalation as instru* CHOLECALCIFEROL (VITAMIN D3) * Take 1 capsule by mouth once * PANTOPRAZOLE 20 MG TABLET,DEL* Take 1 tablet by mouth twice * NITROGLYCERIN 0.4 MG SUBLINGU* Dissolve 1 tablet under the t* ATORVASTATIN 80 MG TABLET Take 1 tablet by mouth once d* RANOLAZINE ER 500 MG TABLET,E* Take 1 tablet by mouth twice * HYDROCODONE 5 MG-ACETAMINOPHE* Take 1 tablet by mouth every * GABAPENTIN 300 MG CAPSULE Take 2 capsules by mouth thre* CLOPIDOGREL 75 MG TABLET Take 1 tablet by mouth once d* ISOSORBIDE MONONITRATE ER 30 * Takes all 3 pills in the AM LOSARTAN 50 MG TABLET Take 1 tablet by mouth once d* AMLODIPINE 5 MG TABLET Take 1 tablet by mouth once d* METOPROLOL TARTRATE 25 MG TAB* Take 1 tablet by mouth twice * FENOFIBRATE NANOCRYSTALLIZED * Take 1 tablet by mouth once d* * WELLBUTRIN SR 150 MG TABLET, * Take one(1) tablet daily per * COMPOUNDED PRESCRIPTION Evaluate for portable oxygen * COMPOUNDED PRESCRIPTION MANUAL WHEELCHAIR DX J44.9* COMPOUNDED PRESCRIPTION NEBULIZER MACHINE AND MEDICAT* COMPOUNDED PRESCRIPTION Electric wheelchair COMPOUNDED PRESCRIPTION Portable oxygen concentrator ASPIRIN 81 MG CHEWABLE TABLET Take 1 tablet by mouth once d* COMPOUNDED PRESCRIPTION Manual Wheel Chair : 1 Dx:* * PAROXETINE 40 MG TABLET Take one(1) tablet daily, per* Problem List As Of Date 07/26/2017 Noted Resolved DM type 2, controlled, with complication (HCC) *INVALID FOR*04/14/2015 More... Mixed simple and mucopurulent chronic bronchiti*INVALID FOR*10/31/2016 More... Hypertriglyceridemia [E78.1] INVALID FOR* More... CHRONIC BRONCHITIS [491] INVALID FOR*09/12/2005 Bipolar disorder, unspecified (HCC) [F31.9] INVALID FOR* More... DEPRESSIVE DISORDER NEC [F32.9] INVALID FOR* More... Other specified cardiac dysrhythmias(427.89) [I*INVALID FOR* More... Coronary atherosclerosis [I25.10] INVALID FOR* More... MYALGIA AND MYOSITIS NOS [ELH7869] INVALID FOR* More... Lumbago [M54.5] INVALID FOR*08/15/2016 More... More... Peripheral vascular disease, unspecified (HCC) *INVALID FOR* More... DERMATOPHYTOSIS OF NAIL [B35.1] INVALID FOR* OSTEOPOROSIS NOS [M81.0] INVALID FOR* Unspecified vitamin D deficiency [E55.9] INVALID FOR*08/15/2016 More... Patient Noncompliance [Z91.19] INVALID FOR* Secondary DM with neurological manifestations (*INVALID FOR* More... HTN (hypertension) [I10] INVALID FOR* More... Chronic back pain [M54.9, G89.29] INVALID FOR*08/15/2016 Physical deconditioning [R53.81] INVALID FOR* DDD (degenerative disc disease), lumbar [M51.36]INVALID FOR* High dependence on smoking [F17.200] INVALID FOR* More... Needs smoking cessation education [F17.200] INVALID FOR*08/15/2016 More... Vitamin D deficiency [E55.9] INVALID FOR* More... GERD (gastroesophageal reflux disease) [K21.9] INVALID FOR* More... Unspecified disorder of skin and subcutaneous t*INVALID FOR* SCCA (squamous cell carcinoma) of skin [C44.92] INVALID FOR* COPD with chronic bronchitis (HCC) [J44.9] INVALID FOR*10/31/2016 More... End stage COPD (HCC) [J44.9] INVALID FOR* More... Tobacco use disorder [F17.200] Other instructions from your clinician: 1. Severe chronic obstructive pulmonary disease. Smoking cessation is critical. Continue Breo 1 inhalation once daily. Continue Spiriva Respimat 2 inhalations once daily. Continue Atrovent HFA 17 mcg/actuation 2 inhaltions?up to 4 times daily?as needed for dyspnea/wheezing. Continue Xopenex nebulized treatments up to 4 times daily as needed for wheezing/shortness of breath. Up to date on annual influenza and pneumonia vaccines. ?? 2. Tobacco use disorder, continuous. Congratulations on decreasing your number of cigarettes.? ? 3. Hypoxemia. - Continue with 2 L supplemental oxygen at all times. - You must use supplemental oxygen when you are out of the house. - Will send an order to [facility] to evaluate for portable oxygen concentrator. Visit Notes: >> Hailey Kitchen SUPERVISOR POLISHING SatJuly 26, 2017 1:45 PM Status: Signed Intake information documented in the prior visit with Sammei Velazquez CRT today. Prescriptions ordered this encounter Disp Refills Start End COMPOUNDED PRESCRIPTION 1 Ea* 0 07/26/2017 Class: Print RX Sig: Evaluate for portable oxygen concentrator. Patient requires 2 L supplemental O2. DME: [facility]. Disposition: Return in about 6 months (around 01/26/2018). Follow-up and Disposition History Recorded Encounter Status:Closed by GOLDIE PARSON on 07/26/17 PROGRESS Observed: 07/26/2017 Status: COMPLETED Source: [place] 1:56 PM [facility] REPOSITORY HNO ID: [id number] Author: Goldie Parson Service: (none) Author Type: Physician Cilnical Scientist Type: Progress Notes Filed: 07/26/2017 2:19 PM Note Text: [facility] [place], 07/26/17: HPI: The patient is here for follow up of COPD. Since the last Pulmonary Clinic visit, the patient was evaluated in [place] ED on 07/17/17 secondary to dyspnea and increased cough. CXR: stable chronic findings. NT proBNP normal. EKG unremarkable. CBC and BMP unremarkable. Troponin negative.Treated for COPD exacerbation with Doxycycline and Prednisone. Patient has completed therapy. Today, she states she feels improved and back to baseline. Patient compliant with prescribed Rx. Daily cough. Clear sputum. No hemoptysis. No pleuritic chest pain. Always wheezing. Exertional dyspnea, decreased exertional tolerance. Supplemental oxygen 2 L continuous. However, when she is out of her house she does carrying portable oxygen tanks. DME: [facility]. Once daily nebulizer treatments. PMH changes: Reviewed with patient today. No changes. FAMH changes: Reviewed with patient today. No changes. SOCH changes: I am smoking less. Immunization History Administered Date(s) Administered Influenza Seasonal - High Dose - Age 65+ 02/05/2014 03/02/2015 11/18/2015 12/18/2016 Influenza Vaccine, Split-Non Spec 01/18/2005 Pneumococcal-13 Vac Conjugate 04/14/2015 Pneumovax 04/13/2005 02/05/2014 TD Adult 11/18/2006 ROS: General: Generally feels improved. Appetite good. Weight stable. Eyes, Ears, nose, throat: No post nasal drip, rhinorrhea, purulent nasal discharge, epistaxis. No hoarseness. Vision stable. Cardiac: No angina. Lower extremity edema last week. No orthopnea. GI: No heartburn, dysphagia, diarrhea. 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 Musculoskeletal: No pain. Neuro: No headache, focal weakness, tremor. Skin: No rash. Otherwise negative. Allergies were reviewed and updated, and medications were reconciled with the patient. Immunization History Administered Date(s) Administered Influenza Seasonal - High Dose - Age 65+ 02/05/2014 03/02/2015 11/18/2015 12/18/2016 Influenza Vaccine, Split-Non Spec 01/18/2005 Pneumococcal-13 Vac Conjugate 04/14/2015 Pneumovax 04/13/2005 02/05/2014 TD Adult 11/18/2006 PHYSICAL EXAMINATION: BP 118/62 Pulse 74 Resp 19 Ht 5' 2.5 (1.59m) Wt 156 lb (70.8kg) SpO2 91% BMI 28.06 kg/(m2). O2: RA. Gen: No acute distress. Cooperative with examination. ENT: Sclerae clear. Nares clear. Oral hygeine and dentition good. Pharynx clear. No halitosis. Resp: No stridor, accessory respiratory muscle use, supra- sternal or intercostal retractions. No wheezes, crackles, rubs. CV: Regular rythm. Heart tones normal. Radial pulses normal. Abd: Non distended. MSK: No kyphoscoliosis, joint deformities of the extremities. Ext: Warm and well perfused. No clubbing, cyanosis, edema. Skin: Color normal. Texture normal. No rash, eczema, urticaria, ecchymoses. Neuro: Mental status normal. Affect normal. Muscle tone normal, symmetrical. No tremor. DATA REVIEW: PULMONARY FUNCTION TESTING DATE: 07/26/17 10/29/2016 05/19/2015 FVC 1.78, 65% 1.99, 71% 2.10, 74% FEV1 0.95, 46% 0.93, 44% 1.18, 55% FEV1/FVC 0.53 0.47 0.56 Oximetry, 07/26/17 InspO2* ? SpO2% ? ? HR Activity ?Feet ?Time ? MPH ?Flag RA ? 86 ? ? 68 resting NC2 ?94 ? ? 68 resting NC2 ?90 ? ? 96 walking, usual pace ? ?264 ?3.00 ?1.00 NC2 ?91 ? ? 94 resting ? 1 min. post * RA = room air, NC2 = O2 by nasal cannula at 2 LPM, ? ? ?TT2=O2 by trans-tracheal catherter at 2 LPM, etc. IMPRESSION/RECOMMEND: 1. Severe chronic obstructive pulmonary disease. Smoking cessation is critical. Continue Breo 1 inhalation once daily. Continue Spiriva Respimat 2 inhalations once daily. Continue Atrovent HFA 17 mcg/actuation 2 inhaltions?up to 4 times daily?as needed for dyspnea/wheezing. Continue Xopenex nebulized treatments up to 4 times daily as needed for wheezing/shortness of breath. Up to date on annual influenza and pneumonia vaccines. ?? 2. Tobacco use disorder, continuous. Congratulations on decreasing your number of cigarettes.? ? 3. Hypoxemia. - Continue with 2 L supplemental oxygen at all times. - You must use supplemental oxygen when you are out of the house. - Will send an order to [facility] to evaluate for portable oxygen concentrator. - I re-addressed the pathophysiology of chronic bronchitis, emphysema, and COPD; and reviewed the management of this condition as outlined in the GOLD and ATS guidelines, including: smoking cessation, Pneumococcal and annual Influenza vaccination, bronchodilators, inhaled corticosteroids, antibiotics, exercise/rehabilitation, and oxygen. - I also again discussed mechanisms of action of medications, alternatives, and potential side effects of treatment. I addressed the questions of the patient, and she expressed understanding and acceptance of my answers. Goldie Parson PA-C [facility] [place] [facility] [place] [address] [place] [id number] CNPTOUTREACH Observed: 07/23/2017 Status: COMPLETED Source: [place] 12:00 AM [facility] REPOSITORY Patient Outreach (INTMWH) MIRAHEATHER ([id number]) 1945 F Date Time Provider Department 07/23/17 JODI BUTLER [facility] During your visit today, we recorded the following information about you: Allergies As of Date: 07/23/2017 Noted Allergy Reaction FENTANYL 08/28/2010 5 - Intolerance ALBUTEROL 11/02/2004 4 - Hives CATS 07/22/2007 CODEINE 11/02/2004 4 - Hives DOGS 07/22/2007 environmental [Other] 07/22/2007 Comments: Trees,grass,pollen IODINE 11/02/2004 2 - Rash LITHIUM 11/02/2004 Comments: Reverse reaction - severe anger MORPHINE 01/11/2012 11 - Vomiting NAPROSYN (NAPROXEN) 06/28/2006 PENICILLINS 11/02/2004 4 - Hives PHENOBARBITAL 11/03/2004 4 - Hives SULFA (SULFONAMIDE ANTIBIOTICS) 11/02/2004 2 - Rash 4 - Hives Date Reviewed: 05/03/2017 Reviewed by: Marilin Pratt LPN - Fully Assessed Visit Diagnosis:Medication management [Z79.899] Order(s):ALBUMIN/CREAT RATIO RND UR [SQUACR] Order #: [id number] FUTURE BASIC METABOLIC PNL [SQBMP] Order #: [id number] FUTURE HGB A1C [ZEXNF6B] Order #: [id number] FUTURE Prescriptions as of 07/23/2017 Sig: LEVALBUTEROL 0.63 MG/3 ML NATAN* Take (1) nebulizer treatment * IPRATROPIUM BROMIDE 17 MCG/AC* Inhale 2 Puffs as instructed * COMPOUNDED PRESCRIPTION MANUAL WHEELCHAIR DX J44.9* COMPOUNDED PRESCRIPTION NEBULIZER MACHINE AND MEDICAT* SPIRIVA RESPIMAT 2.5 MCG/ACTU* Inhale 2 Inhalation as instru* CYCLOBENZAPRINE 10 MG TABLET Take 1 tablet by mouth once d* COMPOUNDED PRESCRIPTION Electric wheelchair BREO ELLIPTA 200 MCG-25 MCG/D* Inhale 1 Inhalation as instru* COMPOUNDED PRESCRIPTION Portable oxygen concentrator X CHOLECALCIFEROL (VITAMIN D3) * Take 1 capsule by mouth once * NITROGLYCERIN 0.4 MG SUBLINGU* Dissolve 1 tablet under the t* X PANTOPRAZOLE 20 MG TABLET,DEL* Take 1 tablet by mouth twice * ATORVASTATIN 80 MG TABLET Take 1 tablet by mouth once d* RANOLAZINE ER 500 MG TABLET,E* Take 1 tablet by mouth twice * HYDROCODONE 5 MG-ACETAMINOPHE* Take 1 tablet by mouth every * GABAPENTIN 300 MG CAPSULE Take 2 capsules by mouth thre* CLOPIDOGREL 75 MG TABLET Take 1 tablet by mouth once d* ASPIRIN 81 MG CHEWABLE TABLET Take 1 tablet by mouth once d* COMPOUNDED PRESCRIPTION Manual Wheel Chair : 1 Dx:* ISOSORBIDE MONONITRATE ER 30 * Takes all 3 pills in the AM LOSARTAN 50 MG TABLET Take 1 tablet by mouth once d* AMLODIPINE 5 MG TABLET Take 1 tablet by mouth once d* METOPROLOL TARTRATE 25 MG TAB* Take 1 tablet by mouth twice * FENOFIBRATE NANOCRYSTALLIZED * Take 1 tablet by mouth once d* * WELLBUTRIN SR 150 MG TABLET, * Take one(1) tablet daily per * * PAROXETINE 40 MG TABLET Take one(1) tablet daily, per* Problem List As Of Date 07/23/2017 Noted Resolved DM type 2, controlled, with complication (HCC) *INVALID FOR*04/14/2015 More... Mixed simple and mucopurulent chronic bronchiti*INVALID FOR*10/31/2016 More... Hypertriglyceridemia [E78.1] INVALID FOR* More... CHRONIC BRONCHITIS [491] INVALID FOR*09/12/2005 Bipolar disorder, unspecified (HCC) [F31.9] INVALID FOR* More... DEPRESSIVE DISORDER NEC [F32.9] INVALID FOR* More... Other specified cardiac dysrhythmias(427.89) [I*INVALID FOR* More... Coronary atherosclerosis [I25.10] INVALID FOR* More... MYALGIA AND MYOSITIS NOS [UIY1792] INVALID FOR* More... Lumbago [M54.5] INVALID FOR*08/15/2016 More... More... Peripheral vascular disease, unspecified (HCC) *INVALID FOR* More... DERMATOPHYTOSIS OF NAIL [B35.1] INVALID FOR* OSTEOPOROSIS NOS [M81.0] INVALID FOR* Unspecified vitamin D deficiency [E55.9] INVALID FOR*08/15/2016 More... Patient Noncompliance [Z91.19] INVALID FOR* Secondary DM with neurological manifestations (*INVALID FOR* More... HTN (hypertension) [I10] INVALID FOR* More... Chronic back pain [M54.9, G89.29] INVALID FOR*08/15/2016 Physical deconditioning [R53.81] INVALID FOR* DDD (degenerative disc disease), lumbar [M51.36]INVALID FOR* High dependence on smoking [F17.200] INVALID FOR* More... Needs smoking cessation education [F17.200] INVALID FOR*08/15/2016 More... Vitamin D deficiency [E55.9] INVALID FOR* More... GERD (gastroesophageal reflux disease) [K21.9] INVALID FOR* More... Unspecified disorder of skin and subcutaneous t*INVALID FOR* SCCA (squamous cell carcinoma) of skin [C44.92] INVALID FOR* COPD with chronic bronchitis (HCC) [J44.9] INVALID FOR*10/31/2016 More... End stage COPD (HCC) [J44.9] INVALID FOR* More... Encounter Status:Closed by KARLA GARCIAUSESean on 12/13/17 12 LEAD ELECTROCARDIOGRAM Observed: 07/19/2017 Status: F Source: [place] 1:38 PM [facility] REPOSITORY [facility] Cardiovascular Services [address] [place] [id number] Lead EKG 07/17/17 1700 MR#: [id number] Acct: [id number] Name: HEATHER MEYERS Rep #: [id number] : 1945 72 From: Kev Huggins MD Attending Dr: Status: DEP ER Ordering Dr: Aries Harrison MD Date: 07/17/17 Location: ED Sex: F C Admitted: Test Reason : SOB Blood Pressure : / mmHG Vent. Rate : 103 BPM Atrial Rate : 103 BPM P-R Int : 166 ms QRS Dur : 080 ms QT Int : 350 ms P-R-T Axes : 046 026 062 degrees QTc Int : 458 [address] Sin[address] tachycardia Nonspecific [address] abnormality Abnormal ECG Confirmed by KEV HUGGINS MD ([id number]), order editor LORI TORRES ([id number]) on 07/19/2017 1:38:25 PM Referred By: JOVON Confirmed By:KEV HUGGINS MD 07/19/17 1338 Date Kev Huggins MD CC: Jodi Butler MD; Chilo Harrison MD Signed EMERGENCY DEPARTMENT Observed: 07/17/2017 Status: F Source: [place] SUMMARY 6:18 PM [facility] REPOSITORY [facility] Medical Records Department [address] [place] [address] Emergency Department Summary 07/17/17 1701 MR#: [id number] Acct: [id number] Name: HEATHER MEYERS Rep #: [id number] : 1945 72 From: Aries Harrison MD PCP: Jodi Butler MD Status: PRE ER - ER Visit Summary Date of Service: 07/17/17 Chief Complaint: it's my CHF History of Present Illness: The patient is a 72 F presenting with 3 days of gradually increased lower extremity edema bilaterally as well as mild cough productive of clear sputum and orthopnea. She wears 2-3 L of continuous nasal cannula oxygen at baseline and smokes 1-2 packs of cigarettes daily. She has a history of COPD and believes that she is having a COPD flare. Denies chest pain or exertional dyspnea. Denies lateralizing lower extremity discomfort. Physical Examination: Vitals are within normal limits. She is not in distress. Neck is supple. Heart tones are regular and without murmur. Lungs are clear bilaterally. Abdomen is soft and nontender. 2+ lower extremity symmetric edema. No tenderness along lower extremity venous system. Strong pulses in all extremities. Test Results: CBC and BMP are unremarkable. Troponin negative. Beta natruretic peptide not elevated. EKG unremarkable. Chest x-ray reveals stable chronic findings. Emergency Department Course and Treatment: No evidence of significant acute CHF exacerbation. She has been coughing clear sputum and states that she is wheezing occasionally at home as well. She is concerned that she is having a COPD exacerbation. She would like to be treated with antibiotics and steroids. I do not feel she needs an adjustment of her cardiac medications at this time but I do think she should follow- up with her round boner as an outpatient. She will also follow-up with her family physician and return here if worse. Her pulse ox here is stable at 98% on 2 L which is her baseline oxygen amount. She is not dyspneic with ambulation. Treatment Plan: Steroids and doxycycline. Follow-up. Disposition: Home stable condition Impression: Initial encounter COPD exacerbation This note was generated with [employer] dictation software. It may contain incorrect words, spelling, and punctuation that were not noted in review of the chart prior to signing ED Disposition - Plan for ED Patient: Chief Complaint: Shortness of Breath Instructions: ED COPD Flare Prescriptions: Prednisone [Deltasone] 40 mg PO DAILY #10 tablet Doxycycline 100 mg PO BID 7 Days #14 capsule Referrals: Jodi Butler MD [Primary Care Provider] - What to do if you have Problems For any increased pain, shortness of breath, bleeding, nausea or vomiting, chest pain, or any unexpected problems, contact your Primary Care Provider. Call [facility] ([phone]) or report to the closest Emergency Room. Call 911 if necessary. 07/17/171817 <Electronically signed by Aries Harrison MD> Date Aries Harrison MD Cosigner Signature (If Indicated): Date CC: Jodi Butler MD; Mahendra Lomeli MD CBC W/DIFF, AUTOMATED Collected: 07/17/2017 Status: F Source: [place] 5:17 PM [facility] REPOSITORY TYPE CODE TESTS RESULT OUT OF RANGE REFERENCE UNITS LAB L100.1000 4.4-11.0 K/mm3 Normal WBC 10.2 LAB L100.1200 4.2-5.4 M/mm3 Normal RBC 4.25 LAB L100.1300 12.0-15.0 g/dl Normal HGB 12.5 LAB L100.1400 37-47 % Normal HCT 39.4 LAB L100.1500 81-99 fL Normal MCV 92.7 LAB L100.1600 27.0-32.0 pg Normal MCH 29.4 LAB L100.1700 32-36 g/gl Low MCHC 31.7 LAB L100.1810 11.6-14.6 % Normal RDW CV 14.2 LAB L100.1820 35.1-43.9 fl High RDW SD 47.9 LAB L100.1900 150-450 K/mm3 Normal PLT 249 LAB L100.2000 6.2-12.0 fl Normal MPV 9.9 LAB L100.2100 47-70 % High NEUT% 74.9 LAB L100.2200 19-41 % Low LY% 17.3 LAB L100.2300 0-10 % Normal MONO% 5.4 LAB L100.2400 0-5 % Normal EO% 2.0 LAB L100.2500 0-1 % Normal BASO% 0.1 LAB L100.2550 0.0-0.9 % Normal IM GRAN % 0.300 Result Comment: IG% - Immature Granulocytes (promyelocytes, myelocytes and metamyelocytes) > 1% indicates that a LEFT SHIFT is Present. LAB L100.2620 2.0-7.7 X10 3/uL Normal Absolute Neut 7.6 LAB L100.2720 0.83-4.51 X10 3/ul Normal Absolute Lymph 1.76 Performed By: #### L100.0100 #### [facility] [address] [place], [address] BASIC METABOLIC Collected: 07/17/2017 Status: F Source: [place] PROFILE ([facility]) 5:17 PM [facility] REPOSITORY TYPE CODE TESTS RESULT OUT OF RANGE REFERENCE UNITS LAB L501.0100 74-106 mg/dL Normal GLU 99 Result Comment: Please note revised GLUCOSE reference range effective 2017. LAB L501.1000 7-18 mg/dL Normal BUN 12 LAB L501.1100 0.55-1.02 mg/dL Normal CREAT,SERUM 0.73 Result Comment: The validity of the calculated GFR AND GFRAA in patients over 70 years has not been determined. Clinical correlation is essential. LAB L501.1110 >60 mL/min Normal EST GFR 83 Result Comment: Non- GFR Calc LAB L501.1115 >60 mL/min Normal EST GFR - AA 101 Result Comment: GFR Calc LAB L501.1255 ml/min Normal Estimated CRCL 40.22 LAB L501.1300 10-20 RATIO Normal BUN/CRE 16.4 LAB L501.2200 8.5-10 mg/dL Low .1 CA 8.3 LAB L501.5300 136-14 mmol/L Normal 5 NA 139 LAB L501.5600 3.5-5. mmol/L Normal 1 K 3.9 LAB L501.5900 98-107 mmol/L Normal CL 105 LAB L501.6100 21.0-3 mmol/L Normal 2.0 CO2 29.0 LAB L501.6200 5-15 Normal GAP 5 Performed By: #### L500.2500, L501.4010 #### [facility] [address] [place], [place], [address] TROPONIN-I Collected: 07/17/2017 Status: F Source: [place] 5:17 PM [facility] REPOSITORY TYPE CODE TESTS RESULT OUT OF RANGE REFERENCE UNITS LAB L501.4010 <0.045 ng/mL Normal < 0.015 TROPONIN-I Result Comment: TROPONIN-I EXPECTED VALUES <0.045 Negative 0.045 - 0.590 Consistent with Cardiac Damage > OR = 0.600 Critical Value Not every elevated troponin is indicative of IN. These values should be used with clinical judgement in examining the patient's clinical picture for diagnosis. To establish a diagnosis of IN versus myocardial injury, there must be a demonstrated rise and/or fall in the troponin values, in addition to ischemic symptoms, EKG changes, new regional wall motion abnormality, and/or angiographical evidence. PLEASE NOTE: REFERENCE RANGES EDITED 17 Performed By: #### L500.2500, L501.4010 #### [facility] [address] [place], [place], [address] BNP,B-TYPE NATRIURETIC Collected: 07/17/2017 Status: F Source: [place] 5:17 PM [facility] REPOSITORY TYPE CODE TESTS RESULT OUT OF RANGE REFERENCE UNITS LAB L503.6620 0-100 pg/mL Normal B-TYPE 36.9 TAMIKA PEP Performed By: #### L503.6620 #### [facility] [address] [place], [address] CHEST PA AND LATERAL Observed: 07/17/2017 Status: F Source: [place] 5:01 PM [facility] REPOSITORY [facility] Imaging Services [address] [place] [address] Chest PA and Lateral MR#: [id number] Acct: [id number] Name: HEATHER MEYERS Rep #: [id number] : 1945 F 72 From: Lori Sullivan MD PCP: Jodi Butler MD Status: PRE ER Study: Chest PA and Lateral Date of Exam: 07/17/17 Exam# [id number] Ordering Dr: Aries Harrison MD XR Chest 2 Views INDICATION: PT C/O INCREASED SOB AND JASPREET LEG SWELLING. PT IS NORMALLY ON 2-3L NC. CAME IN WITHOUT OXYGEN ON BECAUSE SHE STATED SHE DOESN'T HAVE A PORTABLE TANK. COMPARISON: December 17, 2016 TECHNIQUE: 2 views of the chest FINDINGS: Borja size and pulmonary vascularity are within normal limits. Lungs are hyperinflated with coarsened interstitial markings compatible with COPD. Interstitial markings at the lung bases are increased, similar compared to the prior study. There is no new focal infiltrate. No evidence of pleural effusion. Osseous structures are osteopenic. RAD/Chest PA and Lateral IMPRESSION: Stable examination with COPD/emphysema. Stable increased interstitial markings at the lung bases, no new infiltrate. at 1742 Reported and signed by: Lori Sullivan MD Electronically Signed: Lori Sullivan MD at 17:40 EDT Tel , Service support , CC: Jodi Butler MD; Chilo Harrison MD [employer]: Signed PROGRESS Observed: 05/03/2017 Status: COMPLETED Source: [place] 2:03 PM [facility] REPOSITORY HNO ID: [id number] Author: Jodi Butler Service: (none) Author Type: Physician Type: Progress Notes Filed: 05/03/2017 5:15 PM Note Text: Reason for Visit Patient presents with: Established Patient: 3 month follow up-COPD Heather Meyers is a 72 year old female who presents here today for Above Complaints.. Health Maintenance HEPATITIS C SCREENING FECAL OCCULT BLOOD TETANUS MAMMOGRAM HPI She has not got the wheelchair yet as it was electric and [facility] does not have it. She did get the nebulizer she is not using it as she cannot tolerate the aluterol she would need the xopenex. Has been smoking a little less than before around 1/3 of what she did . Patient was found to have an inconsistent drug screen and she is upset that it happened. Says she never does coccaine Currently she was given some cymbalta No chest pain or sob. BP is well controlled on current regimen of medicines which is tolerated well. No significant side effects lipids are normal, reviewed test results with patient Who takes medications regularly and has no side effects. No problem-specific Assessment AND Plan notes found for this encounter. PAST MEDICAL HISTORY Diagnosis Date - Bipolar disorder, unspecified (HCC) 11/03/2004 Dr. Vasquez, [facility] - Cataract surgery 07/20/2003 Left eye only - Chronic back pain 01/11/2012 - Coronary atherosclerosis of unspecified type of vessel, fond du lac or graft 11/22/2004 - Coronary atherosclerosis of unspecified type of vessel, fond du lac or graft 11/22/[address] Kristin Rodrigues - Depressive disorder, not elsewhere classified 11/03/2004 - Esophageal reflux 11/22/2004 - Lumbago 11/22/2004 Chronic low back pain. Dr. Carrillo, [facility], [place], [place]. - Myalgia and myositis, unspecified 11/22/2004 Fibromyalgia - Osteoporosis, unspecified 01/22/2007 - Other abnormal heart sounds 11/21/2004 - Other and unspecified hyperlipidemia 11/03/2004 - Other emphysema (HCC) 11/21/2004 Dr. Wade, [facility]. - Other specified cardiac dysrhythmias(427.89) 11/21/2004 Parox. SVT - Peripheral vascular disease, unspecified (HCC) 11/22/2004 Dr. Ruben Leo - Type II or unspecified type diabetes mellitus without mention of complication, not stated as uncontrolled 11/02/2004 - Unspecified vitamin D deficiency 05/22/2007 PAST SURGICAL HISTORY Procedure Laterality Date - ARTERY-VEIN ANASTOMOSIS 08/2002 fem-fem removal, right superficial femoral artery reconst. with inner position reverse contralateral saph. v. graft - BYPASS GRAFT OTHR,FEM-FEM 10/2001 Bypass graft fem-fem - DELIVERY ONLY , low cervical - HEART CATHETERIZATION 10/04/14 stent placement - INCISION OF DEEP/COMPLIC ABSCESS 05/2002 Infected fem-fem crossover graft - LEFT HEART CATH,PERCUTANEOUS 03/2001 Cardiac cath, L heart - REVISE MEDIAN N/CARPAL TUNNEL SURG Carpal tunnel decomp - SLING OPER STRES INCONTINENCE FAMILY HISTORY Problem Relation Age of Onset - Heart Mother - Stroke Maternal Grandmother - Stroke Maternal Grandfather - Heart Sister - MS [OTHER] Other 2 nieces. Social History Substance Use Topics - Smoking status: Current Every Day Smoker Packs/day: 1.50 Years: 43.00 Types: Cigarettes Start date: 1961 - Smokeless tobacco: Never Used Comment: 1 pound bag tobacco per month, down from 3 pounds per month. JMB 04/29/17 - Alcohol use No Past medical history, appointments, medications, allergies reviewed. Pertinent Lab/Diagnostic Studies are reviewed and discussed today Current Outpatient Prescriptions: - levalbuterol (XOPENEX) 0.63 mg/3 mL nebulizer solution - Ipratropium (ATROVENT HFA) 17 mcg/actuation inhaler - COMPOUNDED PRESCRIPTION - COMPOUNDED PRESCRIPTION - SPIRIVA RESPIMAT 2.5 mcg/actuation mist - cyclobenzaprine (FLEXERIL) 10 mg tablet - COMPOUNDED PRESCRIPTION - BREO ELLIPTA 200-25 mcg/dose inhaler - COMPOUNDED PRESCRIPTION - cholecalciferol, Vitamin D3, (VITAMIN D3) 50,000 unit cap capsule - pantoprazole DR (PROTONIX) 20 mg tablet - nitroglycerin sublingual (NITROSTAT) 0.4 mg SL tablet - atorvastatin (LIPITOR) 80 mg tablet - ranolazine ER (RANEXA) 500 mg 12 hr tablet - HYDROcodone-acetaminophen (NORCO) 5-325 mg per tablet - gabapentin (NEURONTIN) 300 mg capsule - clopidogrel (PLAVIX) 75 mg tablet - aspirin 81 mg chewable tablet - COMPOUNDED PRESCRIPTION - isosorbide mononitrate ER (IMDUR) 30 mg 24 hr tablet - losartan (COZAAR) 50 mg tablet - amLODIPine (NORVASC) 5 mg tablet - metoprolol tartrate, short acting, (LOPRESSOR) 25 mg tablet - fenofibrate nanocrystallized (TRICOR) 145 mg tablet - bupropion hcl(WELLBUTRIN SR 150 MG TAB) - PAROXETINE 40 MG TAB Review of Systems CONSTITUTIONAL: No fevers, chills night sweats, unintended weight loss CARDIOVASCULAR: No chest pain, dyspnea, palpitations, orthopnea, PND, ankle edema. PULM: No dyspnea, unexplained cough. GI: No dysphagia/odynophagia, problematic reflux, constipation, diarrhea, changes in stool habits, hematochezia, melena. : No new urinary complaints, including dysuria, gross hematuria or pyuria. NEURO: No new balance problems, peripheral weakness/paresthesias or numbness of concern. Physical Exam BP 110/64 (BP Site: Left Arm, BP Position: Sitting, BP Cuff Size: Large Adult) Pulse 108 Resp 18 Ht 158.8 cm (5' 2.5) Wt 74.4 kg (164 lb) SpO2 91% BMI 29.52 kg/m2 General appearance: Well appearing, alert, in no acute distress, well nourished. Skin: Skin color, texture, turgor normal, no suspicious rashes or lesions Head: Normocephalic, no masses, lesions, tenderness or abnormalities Eyes: Anicteric sclera. Pupils are equally round and reactive to light. Extraocular movements are intact. Lungs: Lungs clear to auscultation. No wheezing, rhonchi, rales Heart: RRR without murmur, gallop, or rubs. ASSESSMENT/PLAN: 1. Hypertriglyceridemia - ICD9: 272.1, ICD10: E78.1 (primary diagnosis) Need to recheck her levels 2. Essential hypertension - ICD9: 401.9, ICD10: I10 - good control - Recommended regular aerobic exercise. - Recommend home blood pressure monitoring, to bring results in on next visit - Goal of BP <130/80 3. End stage COPD (HCC) - ICD9: 496, ICD10: J44.9 After quitting smoking she is doing better 4. Physical deconditioning - ICD9: 799.3, ICD10: R53.81 Discussed that she should talk to our social science instructor to get info on where to get her wheelchair JODI BUTLER MD CNOV Observed: 05/03/2017 Status: COMPLETED Source: [place] 1:20 PM [facility] REPOSITORY Office Visit (INTMWS) HEATHER MEYERS ([id number]) 1945 F Date Time Provider Department 05/03/17 1:20 PM JODI BUTLER INTMWS During your visit today, we recorded the following information about you: Pulse Respiration Blood pressure Weight 108/minute 18/minute 110/64 74.4 kg Height 1.588 m JODI BUTLER MD 05/03/2017 5:15 PM Signed Reason for Visit Patient presents with: Established Patient: 3 month follow up-COPD Heather Meyers is a 72 year old female who presents here today for Above Complaints.. Health Maintenance HEPATITIS C SCREENING FECAL OCCULT BLOOD TETANUS MAMMOGRAM HPI She has not got the wheelchair yet as it was electric and [facility] does not have it. She did get the nebulizer she is not using it as she cannot tolerate the aluterol she would need the xopenex. Has been smoking a little less than before around 1/3 of what she did . Patient was found to have an inconsistent drug screen and she is upset that it happened. Says she never does coccaine Currently she was given some cymbalta No chest pain or sob. BP is well controlled on current regimen of medicines which is tolerated well. No significant side effects lipids are normal, reviewed test results with patient Who takes medications regularly and has no side effects. No problem-specific Assessment ANDamp; Plan notes found for this encounter. PAST MEDICAL HISTORY Diagnosis Date - Bipolar disorder, unspecified (HCC) 11/03/2004 [facility] - Cataract surgery 07/20/2003 Left eye only - Chronic back pain 01/11/2012 - Coronary atherosclerosis of unspecified type of vessel, fond du lac or graft 11/22/2004 - Coronary atherosclerosis of unspecified type of vessel, fond du lac or graft 11/22/[address] Kristin Rodrigues - Depressive disorder, not elsewhere classified 11/03/2004 - Esophageal reflux 11/22/2004 - Lumbago 11/22/2004 Chronic low back pain. Dr. Carrillo, [place], [place]. - Myalgia and myositis, unspecified 11/22/2004 Fibromyalgia - Osteoporosis, unspecified 01/22/2007 - Other abnormal heart sounds 11/21/2004 - Other and unspecified hyperlipidemia 11/03/2004 - Other emphysema ([facility] - Other specified cardiac dysrhythmias(427.89) 11/21/2004 Parox. SVT - Peripheral vascular disease, unspecified ([facility]) 11/22/2004 Dr. Ruben Leo - Type II or unspecified type diabetes mellitus without mention of complication, not stated as uncontrolled 11/02/2004 - Unspecified vitamin D deficiency 05/22/2007 PAST SURGICAL HISTORY Procedure Laterality Date - ARTERY-VEIN ANASTOMOSIS 08/2002 fem-fem removal, right superficial femoral artery reconst. with inner position reverse contralateral saph. v. graft - BYPASS GRAFT OTHR,FEM-FEM 10/2001 Bypass graft fem-fem - DELIVERY ONLY , low cervical - HEART CATHETERIZATION 10/04/14 stent placement - INCISION OF DEEP/COMPLIC ABSCESS 05/2002 Infected fem-fem crossover graft - LEFT HEART CATH,PERCUTANEOUS 03/2001 Cardiac cath, L heart - REVISE MEDIAN N/CARPAL TUNNEL SURG Carpal tunnel decomp - SLING OPER STRES INCONTINENCE FAMILY HISTORY Problem Relation Age of Onset - Heart Mother - Stroke Maternal Grandmother - Stroke Maternal Grandfather - Heart Sister - MS [OTHER] Other 2 nieces. Social History Substance Use Topics - Smoking status: Current Every Day Smoker Packs/day: 1.50 Years: 43.00 Types: Cigarettes Start date: 1961 - Smokeless tobacco: Never Used Comment: 1 pound bag tobacco per month, down from 3 pounds per month. JMB 04/29/17 - Alcohol use No Past medical history, appointments, medications, allergies reviewed. Pertinent Lab/Diagnostic Studies are reviewed and discussed today Current Outpatient Prescriptions: - levalbuterol (XOPENEX) 0.63 mg/3 mL nebulizer solution - Ipratropium (ATROVENT HFA) 17 mcg/actuation inhaler - COMPOUNDED PRESCRIPTION - COMPOUNDED PRESCRIPTION - SPIRIVA RESPIMAT 2.5 mcg/actuation mist - cyclobenzaprine (FLEXERIL) 10 mg tablet - COMPOUNDED PRESCRIPTION - BREO ELLIPTA 200-25 mcg/dose inhaler - COMPOUNDED PRESCRIPTION - cholecalciferol, Vitamin D3, (VITAMIN D3) 50,000 unit cap capsule - pantoprazole DR (PROTONIX) 20 mg tablet - nitroglycerin sublingual (NITROSTAT) 0.4 mg SL tablet - atorvastatin (LIPITOR) 80 mg tablet - ranolazine ER (RANEXA) 500 mg 12 hr tablet - HYDROcodone-acetaminophen (NORCO) 5-325 mg per tablet - gabapentin (NEURONTIN) 300 mg capsule - clopidogrel (PLAVIX) 75 mg tablet - aspirin 81 mg chewable tablet - COMPOUNDED PRESCRIPTION - isosorbide mononitrate ER (IMDUR) 30 mg 24 hr tablet - losartan (COZAAR) 50 mg tablet - amLODIPine (NORVASC) 5 mg tablet - metoprolol tartrate, short acting, (LOPRESSOR) 25 mg tablet - fenofibrate nanocrystallized (TRICOR) 145 mg tablet - bupropion hcl(WELLBUTRIN SR 150 MG TAB) - PAROXETINE 40 MG TAB Review of Systems CONSTITUTIONAL: No fevers, chills night sweats, unintended weight loss CARDIOVASCULAR: No chest pain, dyspnea, palpitations, orthopnea, PND, ankle edema. PULM: No dyspnea, unexplained cough. GI: No dysphagia/odynophagia, problematic reflux, constipation, diarrhea, changes in stool habits, hematochezia, melena. : No new urinary complaints, including dysuria, gross hematuria or pyuria. NEURO: No new balance problems, peripheral weakness/paresthesias or numbness of concern. Physical Exam BP 110/64 (BP Site: Left Arm, BP Position: Sitting, BP Cuff Size: Large Adult) Pulse 108 Resp 18 Ht 158.8 cm (5' 2.5ANDquot;) Wt 74.4 kg (164 lb) SpO2 91% BMI 29.52 kg/m2 General appearance: Well appearing, alert, in no acute distress, well nourished. Skin: Skin color, texture, turgor normal, no suspicious rashes or lesions Head: Normocephalic, no masses, lesions, tenderness or abnormalities Eyes: Anicteric sclera. Pupils are equally round and reactive to light. Extraocular movements are intact. Lungs: Lungs clear to auscultation. No wheezing, rhonchi, rales Heart: RRR without murmur, gallop, or rubs. ASSESSMENT/PLAN: 1. Hypertriglyceridemia - ICD9: 272.1, ICD10: E78.1 (primary diagnosis) Need to recheck her levels 2. Essential hypertension - ICD9: 401.9, ICD10: I10 - good control - Recommended regular aerobic exercise. - Recommend home blood pressure monitoring, to bring results in on next visit - Goal of BP ANDlt;130/80 3. End stage COPD (HCC) - ICD9: 496, ICD10: J44.9 After quitting smoking she is doing better 4. Physical deconditioning - ICD9: 799.3, ICD10: R53.81 Discussed that she should talk to our social science instructor to get info on where to get her wheelchair JODI BUTLER MD Referring Provider: JODI BUTLER [[id number]] Allergies As of Date: 05/03/2017 Noted Allergy Reaction FENTANYL 08/28/2010 5 - Intolerance ALBUTEROL 11/02/2004 4 - Hives CATS 07/22/2007 CODEINE 11/02/2004 4 - Hives DOGS 07/22/2007 IODINE 11/02/2004 2 - Rash LITHIUM 11/02/2004 Comments: Reverse reaction - severe anger MORPHINE 01/11/2012 11 - Vomiting NAPROSYN (NAPROXEN) 06/28/2006 PENICILLINS 11/02/2004 4 - Hives PHENOBARBITAL 11/03/2004 4 - Hives SULFA (SULFONAMIDE ANTIBIOTICS) 11/02/2004 2 - Rash 4 - Hives environmental [Other] 07/22/2007 Comments: Trees,grass,pollen Date Reviewed: 05/03/2017 Reviewed by: Marilin Pratt LPN - Fully Assessed Reason for Visit: Established Patient [175] Cmt: 3 month follow up-COPD Primary Visit Diagnosis:Hypertriglyceridemia [E78.1] Other Visit Diagnoses:Essential hypertension [I10] End stage COPD (HCC) [J44.9] Physical deconditioning [R53.81] Prescriptions as of 05/03/2017 Sig: LEVALBUTEROL 0.63 MG/3 ML NATAN* Take (1) nebulizer treatment * IPRATROPIUM BROMIDE 17 MCG/AC* Inhale 2 Puffs as instructed * COMPOUNDED PRESCRIPTION MANUAL WHEELCHAIR DX J44.9* COMPOUNDED PRESCRIPTION NEBULIZER MACHINE AND MEDICAT* SPIRIVA RESPIMAT 2.5 MCG/ACTU* Inhale 2 Inhalation as instru* CYCLOBENZAPRINE 10 MG TABLET Take 1 tablet by mouth once d* COMPOUNDED PRESCRIPTION Electric wheelchair BREO ELLIPTA 200 MCG-25 MCG/D* Inhale 1 Inhalation as instru* COMPOUNDED PRESCRIPTION Portable oxygen concentrator CHOLECALCIFEROL (VITAMIN D3) * Take 1 capsule by mouth once * PANTOPRAZOLE 20 MG TABLET,DEL* Take 1 tablet by mouth twice * NITROGLYCERIN 0.4 MG SUBLINGU* Dissolve 1 tablet under the t* ATORVASTATIN 80 MG TABLET Take 1 tablet by mouth once d* RANOLAZINE ER 500 MG TABLET,E* Take 1 tablet by mouth twice * HYDROCODONE 5 MG-ACETAMINOPHE* Take 1 tablet by mouth every * GABAPENTIN 300 MG CAPSULE Take 2 capsules by mouth thre* CLOPIDOGREL 75 MG TABLET Take 1 tablet by mouth once d* ASPIRIN 81 MG CHEWABLE TABLET Take 1 tablet by mouth once d* COMPOUNDED PRESCRIPTION Manual Wheel Chair : 1 Dx:* ISOSORBIDE MONONITRATE ER 30 * Takes all 3 pills in the AM LOSARTAN 50 MG TABLET Take 1 tablet by mouth once d* AMLODIPINE 5 MG TABLET Take 1 tablet by mouth once d* METOPROLOL TARTRATE 25 MG TAB* Take 1 tablet by mouth twice * FENOFIBRATE NANOCRYSTALLIZED * Take 1 tablet by mouth once d* * WELLBUTRIN SR 150 MG TABLET, * Take one(1) tablet daily per * * PAROXETINE 40 MG TABLET Take one(1) tablet daily, per* Problem List As Of Date 05/03/2017 Noted Resolved DM type 2, controlled, with complication ([facility]) *INVALID FOR*04/14/2015 More... Mixed simple and mucopurulent chronic bronchiti*INVALID FOR*10/31/2016 More... Hypertriglyceridemia [E78.1] INVALID FOR* More... CHRONIC BRONCHITIS [491] INVALID FOR*09/12/2005 Bipolar disorder, unspecified (HCC) [F31.9] INVALID FOR* More... DEPRESSIVE DISORDER NEC [F32.9] INVALID FOR* More... Other specified cardiac dysrhythmias(427.89) [I*INVALID FOR* More... Coronary atherosclerosis [I25.10] INVALID FOR* More... MYALGIA AND MYOSITIS NOS [[id number]] INVALID FOR* More... Lumbago [M54.5] INVALID FOR*08/15/2016 More... More... Peripheral vascular disease, unspecified (HCC) *INVALID FOR* More... DERMATOPHYTOSIS OF NAIL [B35.1] INVALID FOR* OSTEOPOROSIS NOS [M81.0] INVALID FOR* Unspecified vitamin D deficiency [E55.9] INVALID FOR*08/15/2016 More... Patient Noncompliance [Z91.19] INVALID FOR* Secondary DM with neurological manifestations (*INVALID FOR* More... HTN (hypertension) [I10] INVALID FOR* More... Chronic back pain [M54.9, G89.29] INVALID FOR*08/15/2016 Physical deconditioning [R53.81] INVALID FOR* DDD (degenerative disc disease), lumbar [M51.36]INVALID FOR* High dependence on smoking [F17.200] INVALID FOR* More... Needs smoking cessation education [F17.200] INVALID FOR*08/15/2016 More... Vitamin D deficiency [E55.9] INVALID FOR* More... GERD (gastroesophageal reflux disease) [K21.9] INVALID FOR* More... Unspecified disorder of skin and subcutaneous t*INVALID FOR* SCCA (squamous cell carcinoma) of skin [C44.92] INVALID FOR* COPD with chronic bronchitis (HCC) [J44.9] INVALID FOR*10/31/2016 More... End stage COPD (HCC) [J44.9] INVALID FOR* More... Encounter Status:Closed by JODI BUTLER MD on 05/03/17 PROGRESS Observed: 04/29/2017 Status: COMPLETED Source: [place] 2:05 PM [facility] REPOSITORY HNO ID: [id number] Author: Goldie Parson Service: (none) Author Type: Physician Cilnical Scientist Type: Progress Notes Filed: 04/29/2017 2:35 PM Note Text: [facility] [place] HPI: The patient is here for follow up of COPD. Since the last visit 10/29/16, the patient was admitted to [facility] on 12/17/16 with shortness of breath and elevated troponins. Heart cath revealed no changes and did not require intervention. Patient treated for COPD exacerbation. Patient compliant with prescribed Rx. I am always coughing. Reports nonproductive cough. No hemoptysis. No pleuritic chest pain. Always wheezing. Exertional dyspnea stable. Wears continuous supplemental oxygen 2L. DME: [employer]. Currently does not have her oxygen with her. States it would have run out, so I didn't bring it with me. Has not been using nebulizer secondary to allergy to albuterol. Needs script for xopenex. PMH changes: Reviewed with patient today. No changes. FAMH changes: Reviewed with patient today. No changes. SOCH changes: Continues to smoke. Has decreased monthly number. Rolls her own. ROS: GEN: Appetite good. Weight stable. ENT: No blurry vision, eye pain, dry mouth. NEURO: No headache, focal weakness. Sleeps poorly, I usually get 2-3 hours of sleep. CV: No syncope, palpitations, exertional pain, pedal edema. No orthopnea, paroxysmal nocturnal dyspnea. GI: No dysphagia, heartburn. : No urinary hesitancy. Otherwise negative. Immunization History Administered Date(s) Administered Influenza Seasonal - High Dose - Age 65+ 02/05/2014 03/02/2015 11/18/2015 12/18/2016 Influenza Vaccine, Split-Non Spec 01/18/2005 Pneumococcal-13 Vac Conjugate 04/14/2015 Pneumovax 04/13/2005 02/05/2014 TD Adult 11/18/2006 Allergies were reviewed and updated, and medications were reconciled with the patient. PHYSICAL EXAMINATION: BP 146/80 Pulse 94 Resp 18 Wt 165 lb (74.8kg) SpO2 97% Body mass index is 29.7 kg/(m2). Gen: No acute distress. Cooperative with examination. ENT: Sclerae clear. EOMI. Nares clear. Oral hygeine/dentition good. Resp: No stridor, accessory respiratory muscle use, supra- sternal or intercostal retractions. No wheezes,crackles, rubs. CV: Regular rythm. Heart tones normal. Radial pulses normal. Abd: Non distended. MSK: No kyphoscoliosis, joint deformities. Ext: Warm and well perfused. No clubbing, cyanosis, edema. Skin: Color normal. Texture normal. No rash, eczema, urticaria, ecchymoses. Neuro: Mental status normal. Affect normal. Muscle tone normal. No tremor. DATA REVIEW: PULMONARY FUNCTION TESTING DATE: 10/29/2016 05/19/2015 FVC 1.99, 71% 2.10, 74% FEV1 0.93, 44% 1.18, 55% FEV1/FVC 0.47 0.56 ?? OXIMETRY DATE: 10/04/2015 RESULTS: InspO2* ??SpO2% ?HR Activity ? RA ?95 ?68 resting RA ?91 ?96 walking, usual pace ??? RA ?95 ?83 resting ? RA ?96 ?62 resting ? RA ?96 ?64 resting ? IMPRESSION/RECOMMEND: 1. Severe chronic obstructive pulmonary disease. Smoking cessation is critical. Continue Breo 1 inhalation once daily. Continue Spiriva Respimat 2 inhalations once daily. Continue Atrovent HFA 17 mcg/actuation 2 inhaltions up to 4 times daily as needed for dyspnea/wheezing. Start Xopenex nebulized treatments up to 4 times daily as needed for wheezing/shortness of breath. Up to date on annual influenza and pneumonia vaccines. ?? 2. Tobacco use disorder, continuous. Smoking cessation is critical. Congratulations on decreasing your number of cigarettes. 3. Hypoxemia. - Continue with supplemental oxygen as previously directed. - Will check oximetry with ambulation at next office visit. ?? - I re-addressed the pathophysiology of chronic bronchitis, emphysema, and COPD; and reviewed the management of this condition as outlined in the GOLD and ATS guidelines, including: smoking cessation, Pneumococcal and annual Influenza vaccination, bronchodilators, inhaled corticosteroids, antibiotics, exercise/rehabilitation, and oxygen. - I also again discussed mechanisms of action of medications, alternatives, and potential side effects of treatment. I addressed the questions of the patient, and she expressed understanding and acceptance of my answers. Goldie Parson PA-C [facility] Respiratory [facility] Surgery [address] [address] ALLERGIES ALLERGIES DATE TYPE / CODE NAME / CODE REACTION SEVERITY SOURCE Drug Iodine and Iodide Unknown Unknown [place] 8 Allergy/847966333( Containing Community SNOMED CT) Produc/[id number] Hospital (RXNORM) Repository Drug Penicillins/F0010 Unknown Unknown [place] 8 Allergy/888710377( 26593(RXNORM) Community SNOM[facility]) Hospital Repository Drug Sulfa Unknown Unknown [place] 8 Allergy/119380195( (Sulfonamide Community SNOMED CT) Antibiotics)/F001 Hospital 570337(RXNORM) Repository Drug phenobarbital/F00 Unknown Unknown [place] 8 Allergy/251827391( 5642721(RXNORM) Community SNOM[facility]) Hospital Repository Drug lithium/M97573253 Unknown Unknown [place] 8 Allergy/509960164( 2(RXNORM) Community SNOM[facility]) Hospital Repository Drug morphine/O2739688 Unknown Unknown [place] 8 Allergy/095119409( 45(RXNORM) Community SNOM[facility]) Hospital Repository Drug codeine/Y38399878 Unknown Unknown [place] 8 Allergy/056792527( 0(RXNORM) Community SN[facility]) Hospital Repository Drug albuterol/G719008 Rash Unknown [place] 8 Allergy/326261838( 814(RXNORM) Community SNOM[facility]) Hospital Repository Drug naproxen/G6163943 Unknown Unknown [place] 8 Allergy/971988325( 80(RXNORM) Community SNOM[facility]) Hospital Repository Drug fentanyl/C7283604 Other SV [place] 8 Allergy/105446248( 71(RXNORM) Community SNOM[facility]) Hospital Repository DRUG MORPHINE Vomiting [place] 2 INGREDI/898843465( Clinic Main SNOMED CT) [place] Repository DRUG FENTANYL INTOLERANCE High [place] 1 INGREDI/323433821( Clinic Main SNOMED CT) [place] Repository Animal/862719458(S CATS [place] [address]) Clinic Main [place] Repository Animal/153921238(S DOGS [place] [address]) Clinic Main [place] Repository Miscellaneous OTHER [place] 8 Allergy/082632078( [facility] Main SNOMED CT) [place] Repository DRUG NAPROXEN [place] 7 INGREDI/766068765( Clinic Main SNOMED CT) [place] Repository DRUG PHENOBARBITAL [facility] 5 INGREDI/084504894( Clinic Main SNOMED CT) [place] Repository DRUG [facility]OL [facility] [place] 5 INGREDI/095190056( Clinic Main SNOMED CT) [place] Repository DRUG CODEINE [facility] [place] 5 INGREDI/610813687( Clinic Main SNOMED CT) [place] Repository DRUG IODINE RASH [place] 5 INGREDI/227121431( Clinic Main SNOMED CT) [place] Repository DRUG LITHIUM [place] 5 INGREDI/904817719( Clinic Main SNOMED CT) [place] Repository Drug PENICILLINS HIVES [place] 5 Class/613900738(SN Clinic Main OMED CT) [place] Repository Drug SULFA RASH [place] 5 Class/968384311(SN (SULFONAMIDE Clinic Main OMED CT) ANTIBIOTICS) [place] Repository ENCOUNTERS ENCOUNTERS ADMIT/DISCHARGE ACCOUNT ADMITTING ENCOUNTER LOCATION SOURCE NUMBER CLASS 03/14/2018 [id number] Ambulatory [facility] ing:PSN Repository 03/14/2018 [id number] Ambulatory BMSBuilding:W [facility] Repository 02/20/2018 [id number] Ambulatory BMSBuilding:[facility] Repository 02/18/2018 [id number] Ambulatory [facility] ing:PSN Repository 02/12/2018/02/13/20 [id number] Ambulatory BMSBuilding:B [place] 18 [facility] Repository 12/17/2017 [id number] Ambulatory BMSBuilding:Cookie Jasso MS.CF.[facility] Repository 12/17/2017 [id number] Ambulatory [facility] ing:CVS Repository 12/13/2017/12/17/19 [id number] Ambulatory [address] Repository 12/11/2017/12/12/19 [id number] Ambulatory BMSBuilding:B [place] 18 MS.[facility] Repository 12/10/2017/12/11/19 [id number] Ambulatory BMSBuilding:B [place] 18 [facility] 11/25/2017 [id number] Ambulatory BMSBuilding:W [facility] Repository 11/23/2017/11/28/19 [id number] Jackson Peter Inpatient [facility] 18 [facility] ing:PCURoom: Repository [id number]: 1 11/23/2017 [id number] Jackson Peter Ambulatory BMSBuilding:Cookie Jasso MS.[facility] Repository 11/23/2017 [id number] Jackson Peter Ambulatory BMSBuilding:B [place] MS.[facility] Repository 11/23/2017 [id number] Jackson Peter Ambulatory BMSBuilding:Cookie Jasso MS.[facility] Repository 11/23/2017 [id number] Jackson Peter Ambulatory BMSBuilding:Cookie Jasso MS.[facility] Repository 11/23/2017 [id number] Jackson Peter Ambulatory BMSBuilding:Cookie Jasso MS.[facility] Repository 11/23/2017/11/28/19 [id number] Ambulatory BMSBuilding:W [place] [address] [place] [address] Repository 11/20/2017/11/22/19 [id number] Ambulatory [address] Repository 11/12/2017 [id number] Ambulatory BMSBuilding:W [facility] Repository 11/09/2017/11/13/19 [id number] Jossie, [place] Inpatient [address] ing:ICURoom: Repository [id number]: 1 11/09/2017 [id number] Jossie, [place] Ambulatory BMSBuilding:Cookie Jasso MS.[facility] Repository 11/09/2017 [id number] Jossie, [place] Ambulatory BMSBuilding:Cookie Jasso MS.CF.[facility] Repository 11/09/2017 [id number] Jossie, [place] Ambulatory BMSBuilding:Cookie Jasso MS.CF.[facility] Repository 11/09/2017 [id number] Jossie, [place] Ambulatory BMSBuilding:Cookie Jasso MS.[facility] Repository 11/09/2017 [id number] Jossie, [place] Ambulatory BMSBuilding:Cookie Jasso MS.[facility] Repository 11/09/2017 [id number] Jossie, [place] Ambulatory BMSBuilding:Cookie Jasso MS.[facility] Repository 07/26/2017/07/31/19 [id number] Ambulatory [address] Repository 07/26/2017/07/27/19 [id number] Ambulatory [address] Repository 07/26/2017/07/31/19 [id number] Ambulatory [address] Repository 07/17/2017/07/18/19 [id number] Emergency [address] ing:ED Repository 05/03/2017/05/07/19 [id number] Ambulatory [address] Repository 05/01/2017 [id number] [facility] Sara g:H.PM Repository 04/29/2017/05/04/19 [id number] Ambulatory [address] Repository PAYERS PAYERS ENCOUNTER GUARANTOR PAYER SUBSCRIBER SOURCE 03/14/2018 HEATHER Kumar Primary HEATHER Kumar [place] [id number] N Insurance:CARESOURCEP DILLONDOB[facility] [place] Number: [id number] General Hospital [address]Wky: [id number] Repository Date:2017-12-10P O (HP) [address]ATTN: [place] [address]VK: 03/14/2018 Secondary NOT GIVENUNK [place] Insurance:SELF PAY [facility] Number: Effective Repository Date:2017-12-10 03/14/2018 HEATHER Kumar Primary HEATHER Kumar [place] [id number] N Insurance:CARESOURCEP DILLONDOB: [facility] Number: [id number] General Hospital [address]Iip: [id number] Repository Date:2017-12-10P O () [address]ATTN: [place] [address]IL: 03/14/2018 Secondary NOT GIVENUNK [place] Insurance:SELF PAY [facility] Number: Effective Repository Date:2018-03-14 02/20/2018 HEATHER MENA Primary HEATHER MENA [place] [id number] N Insurance:CARESOURCEP DILLONDOB: [facility] CenterHy[facility]ent[facility] Number: [id number] General Hospital [address]Zfk: [id number] Repository Date:2017-12-10P O (HP) [address]ATTN: [place] [address]RW: 02/20/2018 Secondary NOT GIVENUNK [place] Insurance:SELF PAY [facility] Number: Effective Repository Date:2018-02-20 02/18/2018 HEATHER MENA Primary HEATHER MENA [place] [id number] N Insurance:CARESOURCEP DILLONDOB: [facility] [place] Number: [id number] General Hospital [address]Ntm: [id number] Repository Date:2017-12-10P O (HP) [address]ATTN: [place] [address]IM: 02/18/2018 Secondary NOT GIVENUNK [place] Insurance:SELF PAY [facility] Number: Effective Repository Date:2017-12-10 02/12/2018 HEATHER MENA Primary HEATHER MENA [place] [id number] N Insurance:CARESOURCEP DILLONDOB: [facility] Center[facility] Number: [id number] General Hospital [address]Btw: [id number] Repository Date:2018-02-05P O () [address]ATTN: [place] [address]IB: 02/12/2018 Secondary NOT GIVENUNK [place] Insurance:SELF PAY [facility] Number: Effective Repository Date:2018-02-12 12/17/2017 HEATHER MENA Primary HEATHER MENA [place] [id number] N Insurance:CARESOURCEP DILLONDOB: [facility] [place] Number: [id number] General Hospital [address]Ndb: [id number] Repository Date:2017-12-11P O (HP) [address]ATTN: [place] [address]KW: 12/17/2017 Secondary NOT GIVENUNK [place] Insurance:SELF PAY [facility] Number: Effective Repository Date:2017-12-17 12/17/2017 HEATHER MENA Primary HEATHER MENA [place] [id number] N Insurance:CARESOURCEP DILLONDOB: [facility] Centermichelle Claros Number: [id number] General Hospital [address]Gns: [id number] Repository Date:2017-12-11P O (HP) [address]ATTN: [place] [address]XB: 12/17/2017 Secondary NOT GIVENUNK [place] Insurance:SELF PAY [facility] Number: Effective Repository Date:2017-12-11 12/11/2017 HEATHER MENA Primary HEATHER Jasso [id number] N Insurance:CARESOURCEP DILLONDOB: [facility] Centerkassy [facility] Number: [id number] General Hospital [address]Hdu: [id number] Repository Date:2017-03-25P O (HP) [address]ATTN: [place] [address]RV: 12/11/2017 Secondary NOT GIVENUNK [place] Insurance:SELF PAY [facility] Number: Effective Repository Date:2017-12-11 12/10/2017 HEATHER MENA Primary HEATHER [place] [id number] N Insurance:CARESOURCEP DILLONDOB: [facility]alk[facility] RAYMONDjose Number: [id number] General Hospital [address]Gux: [id number] Repository Date:2017-11-26P O (HP) [address]ATTN: [place] [address]IM: 12/10/2017 Secondary NOT GIVENUNK [place] Insurance:SELF PAY [facility] Number: Effective Repository Date:2017-12-03 11/25/2017 HEATHER MENA Primary HEATHER Jasso [id number] N Insurance:CARESOURCEP DILLONDOB: [facility] PENA Number: [id number] General Hospital [address]Alt: [id number] Repository Date:2017-11-23P O (HP) [address]ATTN: [place] [address]VO: 11/25/2017 Secondary NOT GIVENUNK [place] Insurance:SELF PAY [facility] Number: Effective Repository Date:2017-11-25 11/23/2017 HEATHER MENA Primary HEATHER [place]iz[place] [id number] N Insurance:CARESOURCEP DILLONDOB: [facility] Number: [id number] General Hospital [address]Xht: [id number] Repository Date:2017-11-23P O (HP) [address]ATTN: [place] [address]KZ: 11/23/2017 Secondary NOT GIVENUNK [place] Insurance:SELF PAY [facility] Number: Effective Repository Date:2017-11-23 11/23/2017 HEATHER MENA Primary HEATHER [place] [id number] N Insurance:CARESOURCEP DILLONDOB: [facility] Number: [id number] General Hospital [address]Ced: [id number] Repository Date:2017-11-23P O () [address]ATTN: [place] [address]BZ: 11/23/2017 Secondary NOT GIVENUNK [place] Insurance:SELF PAY [facility] Number: Effective Repository Date:2017-11-23 11/23/2017 HEATHER MENA Primary HEATHER MENA [place] [id number] N Insurance:CARESOURCEP DILLONDOB: [facility] Number: [id number] General Hospital [address]Dit: [id number] Repository Date:2017-11-23P O (HP) [address]ATTN: [place] [address]FR: 11/23/2017 Secondary NOT GIVENUNK [place] Insurance:SELF PAY [facility] Number: Effective Repository Date:2017-11-23 11/23/2017 HEATHER MENA Primary HEATHER MENA [place] [id number] N Insurance:CARESOURCEP DILLONDOB: [facility] [place] Number: [id number] General Hospital [address]Akc: [id number] Repository Date:2017-11-23P O (HP) [address]ATTN: [place] [address]ZX: 11/23/2017 Secondary NOT GIVENUNK [place] Insurance:SELF PAY [facility] Number: Effective Repository Date:2017-11-23 11/23/2017 HEATHER MENA Primary HEATHER MENA [place] [id number] N Insurance:CARESOURCEP DILLONDOB: [facility]alkassy [facility]NAman[facility] Number: [id number] General Hospital [address]Yrv: [id number] Repository Date:2017-11-23P O (HP) [address]ATTN: [place] [address]WJ: 11/23/2017 Secondary NOT GIVENUNK [place] Insurance:SELF PAY [facility] Number: Effective Repository Date:2017-11-23 11/23/2017 HEATHER MENA Primary HEATHER [place] [id number] N Insurance:CARESOURCEP DILLONDOB: [facility]mic[facility] [place] Number: [id number] General Hospital [address]Xky: [id number] Repository Date:2017-11-23P O (HP) [address]ATTN: [place] [address]JL: 11/23/2017 Secondary NOT GIVENUNK [place] Insurance:SELF PAY [facility] Number: Effective Repository Date:2017-11-23 11/23/2017 HEATHER MENA Primary HEATHER Jasso [id number] N Insurance:CARESOURCEP DILLONDOB: [facility] [place] Number: [id number] General Hospital [address]Xrl: [id number] Repository Date:2017-11-23P O (HP) [address]ATTN: [place] [address]UJ: 11/23/2017 Secondary NOT GIVENUNK [place] Insurance:SELF PAY [facility] Number: Effective Repository Date:2017-11-23 11/12/2017 HEATHER MENA Primary HEATHER [place] [id number] N Insurance:CARESOURCEP DILLONDOB: Community [facility]ENTERBmichelle PENA Number: [id number] General Hospital [address]Syh: [id number] Repository Date:2017-11-09P O (HP) [address]ATTN: [place] [address]JJ: 11/12/2017 Secondary NOT GIVENUNK [place] Insurance:SELF PAY [facility] Number: Effective Repository Date:2017-11-12 11/09/2017 HEATHER MENA Primary HEATHER Ortizoster [id number] N Insurance:CARESOURCEP DILLONDOB: Community [facility]ITALmic[facility] [place] Number: [id number] General Hospital [address]Ygi: [id number] Repository Date:2017-11-09P O (HP) [address]ATTN: [place] [address]OE: 11/09/2017 Secondary NOT GIVENUNK [place] Insurance:SELF PAY [facility] Number: Effective Repository Date:2017-11-09 11/09/2017 HEATHER MENA Primary HEATHER Ortizoster [id number] N Insurance:CARESOURCEP DILLONDOB: Community [facility] CENTERBmichelle PENA Number: [id number] General Hospital [address]Clq: [id number] Repository Date:2017-11-09P O (HP) [address]ATTN: [place] [address]YU: 11/09/2017 Secondary NOT GIVENUNK [place] Insurance:SELF PAY [facility] Number: Effective Repository Date:2017-11-09 11/09/2017 HEATHER MENA Primary HEATHER [place]izoster [id number] N Insurance:CARESOURCEP DILLONDOB: [facility] [place] Number: [id number] General Hospital [address]Ppo: [id number] Repository Date:2017-11-09P O (HP) [address]ATTN: [place] [address]OU: 11/09/2017 Secondary NOT GIVENUNK [place] Insurance:SELF PAY [facility] Number: Effective Repository Date:2017-11-09 11/09/2017 HEATHER MENA Primary HEATHER MENA [place] [id number] N Insurance:CARESOURCEP DILLONDOB: [facility]alk[facility]NAman[facility] Number: [id number] General Hospital [address]Fho: [id number] Repository Date:2017-11-09P O () [address]ATTN: [place] [address]IM: 11/09/2017 Secondary NOT GIVENUNK [place] Insurance:SELF PAY [facility] Number: Effective Repository Date:2017-11-09 11/09/2017 HEATHRE MENA Primary HEATHER MENA [place] [id number] N Insurance:CARESOURCEP DILLONDOB: [facility]alk[facility] Number: [id number] General Hospital [address]Upd: [id number] Repository Date:2017-11-09P O () [address]ATTN: [place] [address]VD: 11/09/2017 Secondary NOT GIVENUNK [place] Insurance:SELF PAY [facility] Number: Effective Repository Date:2017-11-09 11/09/2017 HEATHER MENA Primary HEATHER [place]izoster [id number] N Insurance:CARESOURCEP DILLONDOB: [facility] [place] Number: [id number] General Hospital [address]Oht: [id number] Repository Date:2017-11-09P O (HP) [address]ATTN: [place] [address]QR: 11/09/2017 Secondary NOT GIVENUNK [place] Insurance:SELF PAY [facility] Number: Effective Repository Date:2017-11-09 11/09/2017 HEATHER MENA Primary HEATHER MENA [place] [id number] N Insurance:CARESOURCEP DILLONDOB: Community [address], olicy Number: [id number] General Hospital [address]Aoi: [id number] Repository Date:2017-11-09P O (HP) [address]ATTN: [place] [address]MT: 11/09/2017 Secondary NOT GIVENUNK [place] Insurance:SELF PAY [facility] Number: Effective Repository Date:2017-11-09 07/17/2017 HEATHER MENA Primary HEATHER MENA [place] [id number] [place] Insurance:CARESOURCEP DILLONDOB: Community [address] olicy Number: [id number] [place], [place] [id number] Repository [address]Pqw: ([phone]) Date:2017-07-17P O [phone] (HP) [address]ATTN: [place] [address]CL: 07/17/2017 Secondary NOT GIVENUNK [place] Insurance:SELF PAY [facility] Number: Effective Repository Date:2017-07-17 05/01/2017 [facility] [id number] Insurance:CARESOURCEP DILLONUNK [facility] [address] olicy Number: Repository 1AF[place], [place] [id number] [address]Fye: (330) Date:2015-03-04P.O. [phone] (HP) [address]DAYEmbarrass, [place] [address]BM:
== END ==
PROVIDERS: Family Provider Internal Medicine; PCP Internal Medicine; Referring Provider Nurse Practitioner Acute Care; Visit Provider Nurse Practitioner Acute Care
DX: R06.02 Shortness of breath (principal)
CPT/HCPCS: 94060; 94726; 94729

== ENCOUNTER → 2018-03-14 12:10 | Outpatient (CLI) | payer MEDICAID, SELFPAY ==
[2018-02-12 11:30] VITALS: BMI 27.5
[2018-03-14 12:55] VITALS: PULSE 76; PULSE 87; PULSE 89; PULSE 90; PULSE 94; O2SAT 87; O2SAT 89; O2SAT 90; O2SAT 96
--- NOTE | 2018-03-14 12:59 | CPS ---
Patient arrived on own oxygen at 3lpm. Placed on room air prior to beginning test. SOB and hip pain were pt symptoms t/o testing for which she rested each minute. At 1 min, 2lpm applied for spo2 87%. She remained on 2lpm until spo2 dropped to 87% just before 6min cheryl. Increased to 3lpm and walked back to room with spo2 at 90%.
--- NOTE | 2018-03-14 14:41 | WT_ITS ---
PSN 6 Minute Walk Test - 6 Minute Walk Test 6 Minute Walk Test: 6 Minute Walk Test PSN:6-Minute Walk Test Start: 03/14/18 12:13 Freq: Status: Active Protocol: [id number].6MINW Document 03/14/18 12:55 [facility] (Rec: 03/14/18 13:03 [facility] [id number]) 6 Minute Walk Test Date Performed 03/14/18 Time Performed 12:15 Height 5 ft 2.5 in Weight: 70.76 kg Weight in Pounds 156.[address]: Melanie Domingo Assistive device used: Walker 1st minute Oxygen Delivery Method Room Air Pulse Ox (%) 87 Pulse Rate (60-100 beats/min) 89 Dyspnea Gabriela Scale (0-10) 5 Number of Rests Taken 1 Reported Symptoms Increased Work of Breathing 2nd minute Oxygen Flow Rate (L/min) (L/min) 2 Oxygen Delivery Method Nasal Cannula Pulse Ox (%) 90 Pulse Rate (60-100 beats/min) 87 Dyspnea Gabriela Scale (0-10) 5 Number of Rests Taken 1 Reported Symptoms Increased Work of Breathing 3rd minute Oxygen Flow Rate (L/min) (L/min) 2 Oxygen Delivery Method Nasal Cannula Pulse Ox (%) 89 Pulse Rate (60-100 beats/min) 89 Dyspnea Gabriela Scale (0-10) 5 Number of Rests Taken 1 Reported Symptoms Increased Work of Breathing 4th minute Oxygen Flow Rate (L/min) (L/min) 2 Oxygen Delivery Method Nasal Cannula Pulse Ox (%) 89 Pulse Rate (60-100 beats/min) 94 Dyspnea Gabriela Scale (0-10) 5 Number of Rests Taken 1 Reported Symptoms Increased Work of Breathing 5th minute Oxygen Flow Rate (L/min) (L/min) 2 Oxygen Delivery Method Nasal Cannula Pulse Ox (%) 90 Pulse Rate (60-100 beats/min) 87 Dyspnea Gabriela Scale (0-10) 5 Number of Rests Taken 1 Reported Symptoms Increased Work of Breathing 6th minute Oxygen Flow Rate (L/min) (L/min) 3 Oxygen Delivery Method Nasal Cannula Pulse Ox (%) 87 Pulse Rate (60-100 beats/min) 90 Dyspnea Gabriela Scale (0-10) 5 Number of Rests Taken 1 Reported Symptoms Increased Work of Breathing Post-test Oxygen Flow Rate (L/min) (L/min) 3 Oxygen Delivery Method Nasal Cannula Pulse Ox (%) 96 Pulse Rate (60-100 beats/min) 76 Dyspnea Gabriela Scale (0-10) 4 Reported Symptoms Increased Work of Breathing Full Laps Walked 5 Partial Lap, Number of Tiles Walked 45 Total Distance Walked (ft) 340 03/14/18 12:59 Cardiopulmonary Services by Christy Condon Patient arrived on own oxygen at 3lpm. Placed on room air prior to beginning test. SOB and hip pain were pt symptoms t/o testing for which she rested each minute. At 1 min, 2lpm applied for spo2 87%. She remained on 2lpm until spo2 dropped to 87% just before 6min cheryl. Increased to 3lpm and walked back to room with spo2 at 90%. Initialized on 03/14/18 12:59 - END OF NOTE - Interpretation Interpretation: The patient was noted to be 91% on room air. The patient then desaturated to 87% in the first minute and was placed on 2 L nasal cannula with improvement in saturations to 92%. The patient required a total of 3 L nasal cannula to maintain appropriate saturations throughout ambulation. In total, amara carmona led only 340 feet over the course of 6 minutes with the assistance of a pushed wheelchair, but required 6 breaks secondary to shortness of breath and hip pain. These findings are consistent with a respiratory and musculoskeletal limitation exercise tolerance. - Recommendations Recommendations: The patient requires no supplemental oxygen at rest, but should be using 3 L/min with any exertion.
== END ==
PROVIDERS: Family Provider Internal Medicine; PCP Internal Medicine; Referring Provider Nurse Practitioner Acute Care; Visit Provider Nurse Practitioner Acute Care
DX: R06.02 Shortness of breath (principal)
CPT/HCPCS: 94618

== ENCOUNTER 2018-03-30 04:41 | Inpatient (IN) | payer MEDICAID, SELFPAY ==
[2018-02-12 11:30] VITALS: BMI 27.5
[2018-03-30] VITALS (43 sets, daily range): BP systolic 90–123; BP diastolic 56–82; PULSE 78–131; RESP 16–38; TEMP 36.2–38.4; O2SAT 75–98; BMI 28.3; BMI 28.2
--- NOTE | 2018-03-30 04:45 | ED.RN ---
RN CALLED FOR EKG, PULLED OLD EKGS FOR
[2018-03-30] MEDS: Etomidate 20 MG/10 ML Vial IV (04:53)
[2018-03-30] MEDS: Succinylcholine Chloride 200 MG/10 ML Vial 100 MG IV (04:53)
--- NOTE | 2018-03-30 04:57 | CT_ITS ---
HISTORY: WEAKNESS, ON A VENT TECHNIQUE: Multiple axial images were obtained of the brain without intravenous contrast. A radiation dose optimization technique was used for this scan. IV Contrast dosage and agent: None. COMPARISON: None FINDINGS: Normal ventricles. Mild cerebral cortical atrophy. No intracranial mass, hemorrhage, or acute intracranial disease. Posterior fossa structures are unremarkable. No suspicious extra-axial fluid collection. Bilateral carotid atherosclerotic calcifications. The mastoids appear clear. Endotracheal tube in place. Bilateral maxillary and ethmoid sinusitis. CT/Brain/Head without Contrast IMPRESSION: 1. Negative for intracranial hemorrhage or acute intracranial disease. 2. Paranasal sinus disease and additional chronic changes, as above. Individualized dose optimization techniques were used for this CT. at 0701 Reported and signed by: Leonard Romeo MD Electronically Signed: Leonard Romeo, at 7:00 EST Tel , Service support ,
--- NOTE | 2018-03-30 04:57 | EKG12_ITS ---
Test Reason : SOB Blood Pressure : / mmHG Vent. Rate : 100 BPM Atrial Rate : 100 BPM P-R Int : 000 ms QRS Dur : 086 ms QT Int : 320 ms P-R-T Axes : 000 042 056 degrees QTc Int : 412 ms Atrial fibrillation Low voltage QRS Abnormal ECG Confirmed by ANGIE MOYER MD ([id number]), news assignment editor MACKENZIE TORRES ([id number]) on 04/01/2018 2:16:22 PM Referred By: CURLY Confirmed By:ANGIE MOYER MD
--- NOTE | 2018-03-30 05:06 | RAD_ITS ---
HISTORY: ET TUBE PLACEMENT EXAM: XR Chest 1 View: Portable supine COMPARISON: 11/23/2017 FINDINGS: EKG leads in place. LINES/DEVICES: The endotracheal tube appears in satisfactory position with the tube tip 4.5 cm above the neeru. NG tube in place with the tube tip at the GE junction. Upper lobe emphysema and redemonstration of interstitial scarring within the mid and lower lung zones. Superimposed interstitial pulmonary edema is also suggested. Normal heart size. Small bilateral pleural effusions may be present. No pneumothorax. RAD/Chest 1 View (Portable) IMPRESSION: 1. The endotracheal tube appears in good position and the NG tube tip lies at the GE junction. 2. Chronic lung disease with emphysema and interstitial fibrosis. Superimposed interstitial pulmonary edema is also suggested. at 0552 Reported and signed by: Leonard Romeo MD Electronically Signed: Leonard Romeo, at 5:51 EST Tel , Service support ,
[2018-03-30 05:10] LABS: Absolute Lymphocyte Count 4.71 X10^3/ul (0.83-4.51); Absolute Neutrophil Count 7.2 X10^3/uL (2.0-7.7); Basophil# 0.15 X10^3/uL; Basophil% 1.1 % (0-1); Eosinophil# 0.47 X10^3/uL; Eosinophils% 3.5 % (0-5); Hematocrit 46.9 % (37-47); Hemoglobin 14.3 g/dl (12.0-15.0); Lymphocyte # 4.71 X10^3/ul (4.0); Lymphocyte % 34.8 % (19-41); Mean Corp Hgb Conc 30.5 g/gl (32-36); Mean Corpuscular Hgb 28.7 pg (27.0-32.0); Mean Corpuscular Volume 94.2 fL (81-99); Mean Platelet Vol. 10.2 fl (6.2-12.0); Monocyte# 0.88 X10^3/uL; Monocyte% 6.5 % (0-10); Neutrophil # 7.18 X10^3/uL (2.7-7.7); Neutrophil % 53.1 % (47-70); Platelet Count 389 K/mm3 (150-450); RBC Distribution Width CV 14.3 % (11.6-14.6); RBC Distribution Width SD 48.9 fl (35.1-43.9); Red Blood Count 4.98 M/mm3 (4.2-5.4); White Blood Count 13.5 K/mm3 (4.4-11.0)
[2018-03-30 05:11] LABS: POSITIVE COUNT NO; POSITIVE DIFFERENTIAL NO; POSITIVE MORPHOLOGY NO
[2018-03-30] MEDS: Ipratropium/Albuterol Sulfate 3 ML AMPUL.NEB INHALATION (05:23)
[2018-03-30] MEDS: Albuterol 2.5 MG/3 ML VIAL.NEB. INHALATION (05:23)
[2018-03-30] MEDS: Midazolam 2 MG/2 ML Syringe IV (05:23)
[2018-03-30] MEDS: MethylPREDNISolone 125 MG/2 ML Vial IV (05:24)
[2018-03-30 05:39] LABS: Anion Gap 13 (5-15); BUN 20 mg/dL (7-18); BUN/Creat Ratio 14.2 RATIO (10-20); Calcium,Total 8.1 mg/dL (8.5-10.1); Chloride 103 mmol/L (98-107); Creatinine, Serum 1.41 mg/dL (0.55-1.02); EST Glomerular Filtration Rate 39 mL/min (>60); Est Glom Filt Rate - Afr Amer 47 mL/min (>60); Estimated Creatinine Clearance 30.69 ml/min; Glucose 291 mg/dL (74-106); Potassium 5.9 mmol/L (3.5-5.1); Sodium Level 137 mmol/L (136-145)
--- NOTE | 2018-03-30 05:39 | EKG12_ITS ---
Test Reason : REPEAT Blood Pressure : / mmHG Vent. Rate : 102 BPM Atrial Rate : 102 BPM P-R Int : 184 ms QRS Dur : 084 ms QT Int : 326 ms P-R-T Axes : 052 018 066 degrees QTc Int : 424 ms Sinus tachycardia with Premature supraventricular complexes Low voltage QRS Borderline ECG Confirmed by JOÃO IVEY, ANGIE ([id number]), supervising film or videotape editor MACKENZIE TORRES ([id number]) on 04/01/2018 2:16:38 PM Referred By: CURLY Confirmed By:ANGIE MOYER MD
[2018-03-30 06:01] LABS: Prothrombin Time (Protime)PT. 12.7 SECONDS (11.7-14.9)
--- NOTE | 2018-03-30 06:02 | CPS ---
critical values on abg handed to dr love at 0600
[2018-03-30 06:06] LABS: Base Excess -6 mmol/L (-2 to +2); Bicarbonate 22.2 mmol/L (22-26); Blood Gas Specimen Type ART; FI02 50; Mode A-C; O2 Delivery Device Vent; PEEP 5; PO2 83 mmHG (75-100); RR 14; SITE R Brachial; SO2 93 % (95-99); Total Carbon Dioxide 24 mmol/L; Vt 450; pCO2 58.3 mmHg (35-45); pH 7.19 (7.35-7.45)
[2018-03-30] MEDS: Midazolam 5 MG/ML Syringe 4 MG IV (06:17)
[2018-03-30] MEDS: Acetaminophen 650 MG Suppository RECTAL (06:38)
--- NOTE | 2018-03-30 06:43 | ED.VISSUMM ---
- ER Visit Summary Date of Service: 03/30/18 Chief Complaint: Unresponsive History of Present Illness: The patient is a 73 F who presents with altered mental status and respiratory distress. Initial history was limited due to her illness severity and initial history was obtained from the family had reported to EMS that she had a recent bronchitis-like illness with coughing and shortness of breath. She became acutely short of breath this morning and EMS was called. By their arrival she was lethargic and essentially unresponsive. There EKGs were reading ST elevations and they were concerned about possible [place]. They also report that in route on their evaluation she was not moving her right side so they were also concerned about possible stroke. Physical Examination: Initial blood pressure 123/72, temperature 97.2, heart rate 98, respiratory 38, initial pulse oximetry 75% on room air Patient in respiratory distress tachypneic increased work of breathing severe inspiratory and expiratory wheezing as well as severely diminished air exchange Easily palpable radial pulses No evidence of trauma Cool and diaphoretic Heart is regular rate and rhythm I do not appreciate murmur Pupils are equal round reactive to light Abdomen soft nontender nondistended Patient did follow commands for me at one point she was sitting up trying to get out of bed she is moving all 4 extremities she did squeeze hands and 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 When repeated this shows sinus tachycardia at a rate of 102 with no acute ischemic changes. Chest x-ray shows endotracheal tube in good position, chronic lung disease with fibrosis and scarring possible superimposed edema and small pleural effusions. CT of the head was obtained which radiology read is pending but no obvious abnormality on my review. Labs notable for white count of 13.5, potassium 5.9, BUN 20, creatinine 1.41. INR normal. ABG which was obtained 1 hour after intubation shows pH 7.18, PCO2 of 58, PO2 of 83, bicarbonate of 22. Troponin 0 0.025. BNP and lactic acid are pending. Emergency Department Course and Treatment: Patient's presentation was most concerning to me for acute hypercapnic respiratory failure. I suspect related to COPD exacerbation. She was in respiratory distress and significantly altered. Therefore she underwent rapid sequence intubation with IV etomidate and succinylcholine and was intubated using video laryngoscopy and a 7-1/2 endotracheal tube was placed on the first attempt. There was equal breath sounds equal chest rise and color change capnography. Although she listen out butyryl allergy if this was listed as a rash and she had been given albuterol in route by EMS without any adverse events was given further duo nebs and albuterol aerosols here. She was given IV Solu-Medrol. She was initially started on propofol for sedation but rapidly developed hypotension so this was discontinued and she was switched to Versed. She did require a couple of IV boluses for adequate sedation. While here she also developed a fever with a core temperature of 100.9. Lactic acid and blood cultures have been added on pending. Given fever leukocytosis and recent infectious symptoms she was also treated for community-acquired pneumonia with IV Levaquin. Patient was discussed with the manager paper Dr. Breaux. Patient will be admitted to the hospitalist service to the intensive care unit. Treatment Plan: [] Disposition: Admit Impression: Acute hypercapnic respiratory failure COPD exacerbation Community-acquired pneumonia This note was generated with [employer] dictation software. It may contain incorrect words, spelling, and punctuation that were not noted in review of the chart prior to signing ED Disposition - Plan for ED Patient: Chief Complaint: Shortness of Breath Referrals: Darleen Craig MD [Primary Care Provider] -
[2018-03-30] MEDS: levoFLOXacin IV 750 MG/150 ML BAG 100 MG IV (06:48)
--- NOTE | 2018-03-30 06:50 | ED.DCSUM_ITS ---
- ER Visit Summary Date of Service: 03/30/18 Chief Complaint: Unresponsive History of Present Illness: The patient is a 73 F who presents with altered mental status and respiratory distress. Initial history was limited due to her illness severity and initial history was obtained from the family had reported to EMS that she had a recent bronchitis-like illness with coughing and shortness of breath. She became acutely short of breath this morning and EMS was called. By their arrival she was lethargic and essentially unresponsive. There EKGs were reading ST elevations and they were concerned about possible [place]. They also report that in route on their evaluation she was not moving her right side so they were also concerned about possible stroke. Physical Examination: Initial blood pressure 123/72, temperature 97.2, heart rate 98, respiratory 38, initial pulse oximetry 75% on room air Patient in respiratory distress tachypneic increased work of breathing severe inspiratory and expiratory wheezing as well as severely diminished air exchange Easily palpable radial pulses No evidence of trauma Cool and diaphoretic Heart is regular rate and rhythm I do not appreciate murmur Pupils are equal round reactive to light Abdomen soft nontender nondistended Patient did follow commands for me at one point she was sitting up trying to get out of bed she is moving all 4 extremities she did squeeze hands and 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 When repeated this shows sinus tachycardia at a rate of 102 with no acute ischemic changes. Chest x-ray shows endotracheal tube in good position, chronic lung disease with fib rosis and scarring possible superimposed edema and small pleural effusions. CT of the head was obtained which radiology read is pending but no obvious abnormality on my review. Labs notable for white count of 13.5, potassium 5.9, BUN 20, creatinine 1.41. INR normal. ABG which was obtained 1 hour after intubation shows pH 7.18, PCO2 of 58, PO2 of 83, bicarbonate of 22. Troponin 0 0.025. BNP and lactic acid are pending. Emergency Department Course and Treatment: Patient's presentation was most concerning to me for acute hypercapnic respiratory failure. I suspect related to COPD exacerbation. She was in respiratory distress and significantly altered. Therefore she underwent rapid sequence intubation with IV etomidate and succinylcholine and was intubated using video laryngoscopy and a 7-1/2 endotracheal tube was placed on the first attempt. There was equal breath sounds equal chest rise and color change capnography. Although she listen out butyryl allergy if this was listed as a rash and she had been given albuterol in route by EMS without any adverse events was given further duo nebs and albuterol aerosols here. She was given IV Solu-Medrol. She was initially started on propofol for sedation but rapidly developed hypotension so this was discontinued and she was switched to Versed. She did require a couple of IV boluses for adequate sedation. While here she also developed a fever with a core temperature of 100.9. Lactic acid and blood cultures have been added on pending. Given fever leukocytosis and recent infectious symptoms she was also treated for community-acquired pneumonia with IV Levaquin. Patient was discussed with the information broker Dr. Breaux. Patient will be admitted to the hospitalist service to the intensive care unit. Treatment Plan: [] Disposition: Admit Impression: Acute hypercapnic respiratory failure COPD exacerbation Community-acquired pneumonia This note was generated with [email or web address] dictation software. It may contain incorrect words, spelling, and punctuation that were not noted in review of the chart prior to signing ED Disposition - Plan for ED Patient: Chief Complaint: Shortness of Breath Referrals: Darleen Craig MD [Primary Care Provider] -
[2018-03-30 07:13] LABS: Mucous, Urine 0 SEEN /hpf (<or=2+)
[2018-03-30 07:21] LABS: Color, Urine Yellow (Yellow); Glucose, Dipstick 50 mg/dl (Normal); Ketone-Dipstick Negative (Negative); Leukocyte Esterase-Dipstick Negative /ul (Negative); Nitrite-Dipstick Negative (Negative); Occult Blood-Urine 250 /ul (Negative); Protein-Dipstick 100 mg/dl (Negative); Urine Bilirubin Dipstick Negative (Negative); Urine Clarity Cloudy (Clear); Urine Urobilinogen Normal (Normal)
[2018-03-30 07:22] LABS: Amorphous Sediment 2+; Squamous Epithelial Cells - UA 0-5 SEEN /hpf (5-10); Transitional Epithelial - Ur 0-5 SEEN /hpf (0-5)
[2018-03-30 07:23] LABS: Bacteria RARE /hpf (None Seen); Red Blood Cells-Urine 10-25 SEEN /hpf (0-5); White Blood Cells 0-5 SEEN /hpf (0-5)
[2018-03-30 07:25] LABS: Lactic Acid 1.8 mmol/L (0.4-2.0)
[2018-03-30 07:43] LABS: BNP,B-Type NATRIURETIC PEPTIDE 120.2 pg/mL (0-100)
--- NOTE | 2018-03-30 07:55 | NURSING ---
DR GREGORY FOR DR BAILEY
--- NOTE | 2018-03-30 07:55 | PCM.CON.CC ---
Problem List (1) Presence of stent in coronary artery Status: Chronic Comment: PTCA/SUSAN to ostium of LMT 10/01/2014 @[facility]; PTCA/SUSAN of the mid/distal RCA 11/11/17 (2) Acute respiratory failure with hypoxia and hypercapnia Status: Acute (3) COPD with acute exacerbation Status: Acute (4) COPD exacerbation Status: Acute (5) CAD (coronary artery disease) Status: Chronic Qualifiers: Comment: Successful PTCA/SUSAN of the of mid/distal RCA with a 2.25 x 38 Promus Synergy, post dilated proximally with a 3.0 x 12 NC balloon at 8 safia (2.5mm); 75%-->0%, no dissection. Successful PTCA/SUSAN of the proximal RCA with a 2.5 x 20 Promus Synergy, post dilated with a 3.0 x 12 at 14 safia; 75%-->0%, no dissection. (6) Tobacco abuse Status: Chronic (7) Congestive heart failure Status: Acute Qualifiers: (8) Nonrheumatic tricuspid (valve) insufficiency Status: Chronic (9) Nicotine dependence, cigarettes, uncomplicated Status: Chronic (10) Hypertension Status: Chronic Qualifiers: (11) Hyperlipidemia Status: Chronic Qualifiers: (12) Peripheral vascular disease Status: Chronic Reason for Consult Date of Consultation: 03/30/18 Reason for Consultation: Acute hypercarbic respiratory failure History of Present Illness: The patient is a 73 year old F, with past medical history listed below and known to me from the outpatient office, who presented to [facility] on 03/30/2018 secondary to decreased mental status and respiratory distress. Family reports that a virus has been going around the family for the last couple of weeks. Patient had developed increased shortness of breath, cough productive of green sputum and intermittent chest pain for the last 3-4 days. There was discussion about coming to the ER earlier, but patient thought that she was doing okay. At approximately 3:30 in the morning, patient was reportedly very lethargic and short of breath. EMS was called. On EMS arrival, there was concern for ST elevations and that she was not moving her right side for possible stroke. On arrival to the emergency room, patient was noted to be 75% on room air and tachypneic at 38 breaths/min. Patient was severely diminished with reported wheezing. Repeat EKG did not show any ST elevations. Patient was emergently intubated using RSI with improvement in oxygenation. Patient was given Solu-Medrol and initiated on propofol. Patient reportedly had significant hypotension, so was switched to Versed. Patient also noted to have a fever of 100.9 ?F. Lactic acid was ordered, along with blood cultures and antibiotics. Patient was seen in the emergency room. On my arrival, patient had a RASS of -3 and was unable to provide any information. Patient's daughter and granddaughter at the bedside. They had reported increased shortness of breath as noted above. Patient reportedly has been decompensating, but did not call our office for assistance. Family members report they have gotten better spontaneously, but none have required hospitalization. Per their knowledge, patient has not complained of any abdominal pain, nausea, vomiting, diarrhea or dysuria. Patient has not reported any palpitations. Family is unaware of any decrease in urine output. Patient does have a history of severe COPD, but did not show up for her last visit scheduled earlier this month. Past Medical History Past Medical History (Chronic Problems): Chronic Problems (Last Reviewed 03/06/18 @ 06:35 by Deanna Coker) Presence of stent in coronary artery (Chronic) PTCA/SUSAN to ostium of LMT 10/01/2014 @[facility]; PTCA/SUSAN of the mid/distal RCA 11/11/17 CAD (coronary artery disease) (Chronic) Successful PTCA/SUSAN of the of mid/distal RCA with a 2.25 x 38 Promus Synergy, post dilated proximally with a 3.0 x 12 NC balloon at 8 safia (2.5mm); 75%-->0%, no dissection. Successful PTCA/SUSAN of the proximal RCA with a 2.5 x 20 Promus Synergy, post dilated with a 3.0 x 12 at 14 safia; 75%-->0%, no dissection. Tobacco abuse (Chronic) Nonrheumatic tricuspid (valve) insufficiency (Chronic) Nonrheumatic mitral valve insufficiency (Chronic) Nicotine dependence, cigarettes, uncomplicated (Chronic) Hypertension (Chronic) Hyperlipidemia (Chronic) Atherosclerosis of [place] coronary artery of [place] heart without angina pectoris (Chronic) PTCA/SUSAN to ostium of LMT 10/01/2014 @[facility]; PTCA/SUSAN to mid/distal RCA and proximal RCA in November 2017 at [facility]; Peripheral vascular disease (Chronic) SOB (shortness of breath) (Chronic) Medical History: Medical History (Last Reviewed 03/06/18 @ 06:35 by Deanna Coker) Presence of stent in coronary artery (Chronic) Z95.5 PTCA/SUSAN to ostium of LMT 10/01/2014 @[facility]; PTCA/SUSAN of the mid/distal RCA 11/11/17 Acute respiratory failure with hypoxia and hypercapnia (Acute) J96.01, J96.02 COPD with acute exacerbation (Acute) J44.1 Gram-negative pneumonia (Acute) J15.6 Acute hypercapnic respiratory failure (Acute) J96.02 NSTEMI (non-ST elevated myocardial infarction) (Acute) I21.4 COPD exacerbation (Acute) J44.1 CAD (coronary artery disease) (Chronic) I25.10 Successful PTCA/SUSAN of the of mid/distal RCA with a 2.25 x 38 Promus Synergy, post dilated proximally with a 3.0 x 12 NC balloon at 8 safia (2.5mm); 75%-->0%, no dissection. Successful PTCA/SUSAN of the proximal RCA with a 2.5 x 20 Promus Synergy, post dilated with a 3.0 x 12 at 14 safia; 75%-->0%, no dissection. Tobacco abuse (Chronic) Z72.0 Congestive heart failure (Acute) I50.9 Nonrheumatic tricuspid (valve) insufficiency (Chronic) I36.1 Nonrheumatic mitral valve insufficiency (Chronic) I34.0 Nicotine dependence, cigarettes, uncomplicated (Chronic) F17.210 Hypertension (Chronic) I10 Hyperlipidemia (Chronic) E78.5 Atherosclerosis of [place] coronary artery of [place] heart without angina pectoris (Chronic) I25.10 PTCA/SUSAN to ostium of LMT 10/01/2014 @[facility]; PTCA/SUSAN to mid/distal RCA and proximal RCA in November 2017 at [facility]; Peripheral vascular disease (Chronic) I73.9 SOB (shortness of breath) (Chronic) R06.02 Anemia D64.9 COPD (chronic obstructive pulmonary disease) J44.9 Diabetes mellitus E11.9 Fibromyalgia M79.7 GERD (gastroesophageal reflux disease) K21.9 Hyperlipidemia E78.5 MARISABEL (obstructive sleep apnea) G47.33 Allergies codeine Allergy (Unknown, Verified 03/30/18 05:15) Unknown lithium Allergy (Unknown, Verified 03/30/18 05:15) Unknown morphine Allergy (Unknown, Verified 03/30/18 05:15) Unknown naproxen [From Naprosyn] Allergy (Unknown, Verified 03/30/18 05:15) Unknown phenobarbital Allergy (Unknown, Verified 03/30/18 05:15) Unknown Sulfa (Sulfonamide Antibiotics) Allergy (Unknown, Verified 03/30/18 05:15) Unknown albuterol Allergy (Verified 03/30/18 05:15) Rash fentanyl Adverse Reaction (Severe, Verified 03/30/18 05:15) Other OD on Fentany patch. Very sensitive to does 75mcg patch Iodine and Iodide Containing Produc Adverse Reaction (Verified 03/30/18 05:15) Unknown Penicillins [PCN] Adverse Reaction (Verified 03/30/18 05:15) Unknown Home Medications: Ambulatory Orders Medication Instructions Recorded Amlodipine [Norvasc] 5 mg PO DAILY 07/13/14 Atorvastatin Calcium [Lipitor] 80 mg PO QHS 07/13/14 Cyclobenzaprine [Flexeril] 10 mg PO DAILY 07/13/14 Fenofibrate [Tricor] 145 mg PO DAILY 07/13/14 Gabapentin [Neurontin] 600 mg PO TIDCM 07/13/14 Fluticasone/Vilanterol [Breo 1 ea IH DAILY 12/17/16 Ellipta 200-25 Mcg INH] Paroxetine HCl [Paxil] 40 mg PO DAILY 12/17/16 diphenhydramine 25 mg tablet 25 mg PO Q6H PRN 03/20/17 nitroglycerin 0.4 mg sublingual 0.4 mg SUBLINGUAL Q5M PRN #25 tab 03/25/17 tablet ranolazine ER 500 mg 500 mg PO BID #180 tab 03/25/17 tablet,extended release,12 hr losartan 50 mg tablet 50 mg PO DAILY #90 tab 10/17/17 clopidogrel 75 mg tablet 75 mg PO DAILY #90 tab 10/23/17 Cholecalciferol (Vitamin D3) 50,000 unit PO QWEEK 11/23/17 [Vitamin D3] Levalbuterol HCl 0.63 mg INHALATION 4X/DAY PRN 11/23/17 Pantoprazole Sodium [Protonix] 20 mg PO BID 11/23/17 buPROPion SR [Wellbutrin SR (150mg 150 mg PO DAILY 11/23/17 tablets)] tiotropium bromide 2.5 2 puff INHALATION QDAY #1 ea 12/10/17 mcg/actuation mist for inhalation isosorbide mononitrate ER 60 mg 90 mg PO DAILY tab 12/11/17 tablet,extended release 24 hr albuterol sulfate HFA 90 2 puff INHALATION Q6H PRN #18 g 01/29/18 mcg/actuation aerosol inhaler Aspirin [Aspirin, Baby] 81 mg PO DAILY@0800 03/30/18 Atrovent Hfa 2 puff IH 4X/DAY 03/30/18 Metoprolol Tartrate 25 mg PO BID 03/30/18 Surgical History: Surgical History (Last Reviewed 03/06/18 @ 06:35 by Deanna Coker) H/O tubal ligation Z98.51 History of left heart catheterization Z98.890 Hx of appendectomy Z98.890, Z90.49 S/P femoral-femoral bypass surgery Z95.828 with gorortex graft in 2001; removal of infected graft with reconstructions of right superficial artery in 2002 Surgical History: appendectomy, - - cad with stent Psychiatric History: No pertinent psych hx RN APPEALS History: No pertinent RN APPEALS history Smoking Status: Current every day smoker - *Family History Maternal Family History: Family History (Last Reviewed 03/06/18 @ 06:35 by Deanna Coker) Mother CAD (coronary artery disease) Hypertension Sister CAD (coronary artery disease) Myocardial infarction History Items: Diabetes, Heart Disease, Stroke Paternal Family History: Family History (Last Reviewed 03/06/18 @ 06:35 by Deanna Coker) Mother CAD (coronary artery disease) Hypertension Sister CAD (coronary artery disease) Myocardial infarction History Items: Diabetes, Stroke Review of Systems Unable to obtain accurate/complete ROS d/t: Family poor historians. Otherwise negative x10 systems. Objective: Chest x-ray was personally reviewed. Patient does have bilateral infiltrates that appear to be acute on chronic. Complete PFT (02/18/2018): Irreversible severe large airways obstructive ventilatory defect with a symmetric reduction diffusing capacity (FVC 71%, FEV1 45%, TLC 105%, RV 154%, DLCO 25%) Echocardiogram (12/17/2017): EF 55% with mitral annular calcification and 1+ MVI. Pulmonic valve was not visualized, but reported right ventricular systolic pressure of 33 mmHg. No ASD noted. CT head was read as no acute process. - Physical Exam General: - - Intubated and sedated. RASS -3. Good vent synchrony noted. Appears older than stated age. HEENT: Atraumatic, PERRLA, EOMI, Normocephalic, - - No scleral icterus or injection noted. Oral: No Gingival or Mucosal Lesions/ Ulcerations, Dry Mucosa Neck: Supple, No JVD, No Nodes, Trachea Midline Lungs: No rhonchi, No rales, Diminished, Wheezes, - - Symmetric expansion. No dullness to percussion. Cardiovascular: Normal S1, Normal S2, No murmurs, No rub noted, No Gallop, Tachycardic Abdomen: Bowel Sounds Present, Soft, Non Tender, Distended - Slightly Extremities: No cyanosis, No edema, Clubbing Skin: No rashes, No breakdown, - - Mild excoriations noted of the lower extremities without surrounding erythema Musculoskeletal: No Tenderness to Palpation of Joints or Extremities Lymphatic: No Cervical, Supraclavicular, or Inguinal Adenopathy Neurological: Cranial nerves II-XII grossly intact, Neuro grossly intact Psych/Mental Status: Flat Affect Vital Signs Temp Pulse Resp BP Pulse Ox 37.8 C H 128 H 22 H 95/61 94 03/30/18 07:40 03/30/18 07:40 03/30/18 07:40 03/30/18 07:40 03/30/18 07:40 Oxygen Delivery Method Mechanical Ventilator Weight: 74.8 kg Body Mass Index (BMI) 28.3 Laboratory Tests Past 24 Hrs 03/30/18 03/30/18 03/30/18 04:48 04:48 04:48 WBC 13.5 H RBC 4.98 Hgb 14.3 Hct 46.9 MCV 94.2 MCH 28.7 MCHC 30.5 L RDW 14.3 RDW Differential 48.9 H Plt Count 389 MPV 10.2 Immature Gran % (Auto) 1.000 H Neut % (Auto) 53.1 Lymph % (Auto) 34.8 [place] % (Auto) 6.5 Eos % (Auto) 3.5 Baso % (Auto) 1.1 H Absolute Neuts (auto) 7.2 Absolute Lymphs (auto) 4.71 H Total Counted Not Reportable PT INR Specimen Type Sample Site pH Bicarbonate Actual POC Total CO2 Base Excess O2 Saturation O2 % ABG pCO2 ABG pO2 Respiration Rate O2 Delivery Device Vent Mode Tidal Volume POC PEEP Blood Gas Notified Whom Sodium 137 Potassium 5.9 H Chloride 103 Carbon Dioxide 21.0 Anion Gap 13 BUN 20 H Creatinine 1.41 H Estim Creat Clear Calc 30.69 Est GFR (MDRD) Af Amer 47 L Est GFR (MDRD) Non-Af 39 L BUN/Creatinine Ratio 14.2 Glucose 291 H Lactic Acid Calcium 8.1 L Troponin I 0.025 B-Natriuretic Peptide 120.2 H Urine Color Urine Clarity Urine pH Ur Specific [place] Urine Protein Urine Glucose (UA) Urine Ketones Urine Occult Blood Urine Nitrite Urine Bilirubin Urine Urobilinogen Ur Leukocyte Esterase Urine RBC Urine WBC Ur Squamous Epith Cells Ur Transition Epith Cell Amorphous Sediment Urine Bacteria Urine Mucus 03/30/18 03/30/18 03/30/18 05:36 05:55 06:47 WBC RBC Hgb Hct MCV MCH MCHC RDW RDW Differential Plt Count MPV Immature Gran % (Auto) Neut % (Auto) Lymph % (Auto) [place] % (Auto) Eos % (Auto) Baso % (Auto) Absolute Neuts (auto) Absolute Lymphs (auto) Total Counted PT 12.7 INR 1.0 Specimen Type ART Sample Site R Brachial pH 7.19 L* Bicarbonate Actual 22.2 POC Total CO2 24 Base Excess -6 L O2 Saturation 93 L O2 % 50 ABG pCO2 58.3 H ABG pO2 83 Respiration Rate 14 O2 Delivery Device Vent Vent Mode A-C Tidal Volume 450 POC PEEP 5 Blood Gas Notified Whom ED MD Sodium Potassium Chloride Carbon Dioxide Anion Gap BUN Creatinine Estim Creat Clear Calc Est GFR (MDRD) Af Amer Est GFR (MDRD) Non-Af BUN/Creatinine Ratio Glucose Lactic Acid 1.8 Calcium Troponin I B-Natriuretic Peptide Urine Color Urine Clarity Urine pH Ur Specific [place] Urine Protein Urine Glucose (UA) Urine Ketones Urine Occult Blood Urine Nitrite Urine Bilirubin Urine Urobilinogen Ur Leukocyte Esterase Urine RBC Urine WBC Ur Squamous Epith Cells Ur Transition Epith Cell Amorphous Sediment Urine Bacteria Urine Mucus 03/30/18 07:05 WBC RBC Hgb Hct MCV MCH MCHC RDW RDW Differential Plt Count MPV Immature Gran % (Auto) Neut % (Auto) Lymph % (Auto) [place] % (Auto) Eos % (Auto) Baso % (Auto) Absolute Neuts (auto) Absolute Lymphs (auto) Total Counted PT INR Specimen Type Sample Site pH Bicarbonate Actual POC Total CO2 Base Excess O2 Saturation O2 % ABG pCO2 ABG pO2 Respiration Rate O2 Delivery Device Vent Mode Tidal Volume POC PEEP Blood Gas Notified Whom Sodium Potassium Chloride Carbon Dioxide Anion Gap BUN Creatinine Estim Creat Clear Calc Est GFR (MDRD) Af Amer Est GFR (MDRD) Non-Af BUN/Creatinine Ratio Glucose Lactic Acid Calcium Troponin I B-Natriuretic Peptide Urine Color Yellow Urine Clarity Cloudy Urine pH 6.0 Ur Specific [place] 1.020 Urine Protein 100 H Urine Glucose (UA) 50 H Urine Ketones Negative Urine Occult Blood 250 H Urine Nitrite Negative Urine Bilirubin Negative Urine Urobilinogen Normal Ur Leukocyte Esterase Negative Urine RBC 10-25 SEEN Urine WBC 0-5 SEEN Ur Squamous Epith Cells 0-5 SEEN Ur Transition Epith Cell 0-5 SEEN Amorphous Sediment 2+ Urine Bacteria RARE Urine Mucus 0 SEEN Clinical Impression(s) from Imaging Studies Brain CT 03/30/18 04:57 IMPRESSION: 1. Negative for intracranial hemorrhage or acute intracranial disease. 2. Paranasal sinus disease and additional chronic changes, as above. Individualized dose optimization techniques were used for this CT. at 0701 Reported and signed by: Leonard Romeo MD Electronically Signed: Leonard Romeo, at 7:00 EST Tel , Service support , Chest X-Ray 03/30/18 05:06 IMPRESSION: 1. The endotracheal tube appears in good position and the NG tube tip lies at the GE junction. 2. Chronic lung disease with emphysema and interstitial fibrosis. Superimposed interstitial pulmonary edema is also suggested. at 0595 Reported and signed by: Leonard Romeo MD Electronically Signed: Leonard Romeo, at 5:51 EST Tel , Service support , Assessment/Plan RECOMMENDATIONS: 1. Repeat ABG for ventilator recommendations 2. Initiate fentanyl drip, possible transition to propofol 3. Initiate tube feeds 4. Spontaneous breathing and awakening trials per protocol 5. Initiate bronchodilators, mucolytic, and steroid therapy 6. Antibiotics as prescribed, obtain viral panel IMPRESSIONS: 1. Acute combined respiratory failure secondary to probable COPD exacerbation With advanced COPD on previous pulmonary function testing. Family reports what sounds like a viral illness over the last 2-3 weeks. Patient should have a viral panel. Respiratory isolation until results are available. Will obtain an ABG to ensure adequate oxygenation and ventilation on current settings. Vent changes may be necessary. Patient will be initiated on a fentanyl drip. Attempt to transition to propofol therapy as this will decrease risk for delirium. Anticipate protracted course, so tube feeds can be initiated. 2. Possible acute on chronic diastolic congestive heart failure/coronary artery disease Patient's last echocardiogram did show resolution of previous systolic dysfunction. Patient does have bilateral infiltrates and there is some concern for possible congestive heart failure with elevated BNP. However, renal function is not optimal at this time and this may be erroneous. We will continue to treat patient as severe sepsis for now. Oxygenation does not appear to be a significant issue. Possible diuretic therapy tomorrow. 3. Acute kidney injury Clinical suspicion for prerenal etiology. Patient has been sick recently and has had decreased p.o. intake per the family. We will continue with volume resuscitation through the GI system with tube feeds. Continue to monitor. Replete electrolytes as indicated. 4. Tobacco abuse with oxygen therapy/hypertension/hyperlipidemia/peripheral vascular disease/poor follow-up Complicates care, management, recovery and prognosis. Okay to continue with baseline medications. TIME: 34 minutes critical care time spent addressing patient's acute respiratory failure, possible CHF, acute kidney injury, review of all data and collaboration with care team (7:30 AM to 8:10 AM) Code Visit 9xxxx: [id number] Critical care first hour
--- NOTE | 2018-03-30 07:58 | NURSING ---
ICU RESP FAILURE, CAP KOTSOINIS
--- NOTE | 2018-03-30 08:00 | CON.PCM_ITS ---
Problem List (1) Presence of stent in coronary artery Status: Chronic Comment: PTCA/SUSAN to ostium of LMT 10/01/2014 @[facility]; PTCA/SUSAN of the mid/distal RCA 11/11/17 (2) Acute respiratory failure with hypoxia and hypercapnia Status: Acute (3) COPD with acute exacerbation Status: Acute (4) COPD exacerbation Status: Acute (5) CAD (coronary artery disease) Status: Chronic Qualifiers: Comment: Successful PTCA/SUSAN of the of mid/distal RCA with a 2.25 x 38 Promus Synergy, post dilated proximally with a 3.0 x 12 NC balloon at 8 safia (2.5mm); 75%-->0%, no dissection. Successful PTCA/SUSAN of the proximal RCA with a 2.5 x 20 Promus Synergy, post dilated with a 3.0 x 12 at 14 safia; 75%-->0%, no dissection. (6) Tobacco abuse Status: Chronic (7) Congestive heart failure Status: Acute Qualifiers: (8) Nonrheumatic tricuspid (valve) insufficiency Status: Chronic (9) Nicotine dependence, cigarettes, uncomplicated Status: Chronic (10) Hypertension Status: Chronic Qualifiers: (11) Hyperlipidemia Status: Chronic Qualifiers: (12) Peripheral vascular disease Status: Chronic Reason for Consult Date of Consultation: 03/30/18 Reason for Consultation: Acute hypercarbic respiratory failure History of Present Illness: The patient is a 73 year old F, with past medical history listed below and known to me from the outpatient office, who presented to [facility] on 03/30/2018 secondary to decreased mental status and respiratory distress. Family reports that a virus has been going around the family for the last couple of weeks. Patient had developed increased shortness of breath, cough productive of green sputum and intermittent chest pain for the last 3-4 days. There was discussion about coming to the ER earlier, but patient thought that she was doing okay. At approximately 3:30 in the morning, patient was reportedly very lethargic and short of breath. EMS was called. On EMS arrival, there was concern for ST elevations and that she was not moving her right side for possible stroke. On arrival to the emergency room, patient was noted to be 75% on room air and tachypneic at 38 breaths/min. Patient was severely diminished with reported wheezing. Repeat EKG did not show any ST elevations. Patient was emergently intubated using RSI with improvement in oxygenation. Patient was given Solu- Medrol and initiated on propofol. Patient reportedly had significant hypotension, so was switched to Versed. Patient also noted to have a fever of 100.9 ?F. Lactic acid was ordered, along with blood cultures and antibiotics. Patient was seen in the emergency room. On my arrival, patient had a RASS of -3 and was unable to provide any information. Patient's daughter and granddaughter at the bedside. They had reported increased shortness of breath as noted above. Patient reportedly has been decompensating, but did not call our office for assistance. Family members report they have gotten better spontaneously, but none have required hospitalization. Per their knowledge, patient has not complained of any abdominal pain, nausea, vomiting, diarrhea or dysuria. Patient has not reported any palpitations. Family is unaware of any decrease in urine output. Patient does have a history of severe COPD, but did not show up for her last visit scheduled earlier this month. Past Medical History Past Medical History (Chronic Problems): Chronic Problems (Last Reviewed 03/06/18 @ 06:35 by Deanna Coker) Presence of stent in coronary artery (Chronic) PTCA/SUSAN to ostium of LMT 10/01/2014 @[facility]; PTCA/SUSAN of the mid/distal RCA 11/11/17 CAD (coronary artery disease) (Chronic) Successful PTCA/SUSAN of the of mid/distal RCA with a 2.25 x 38 Promus Synergy, post dilated proximally with a 3.0 x 12 NC balloon at 8 safia (2.5mm); 75%-->0%, no dissection. Successful PTCA/SUSAN of the proximal RCA with a 2.5 x 20 Promus Synergy, post dilated with a 3.0 x 12 at 14 safia; 75%-->0%, no dissection. Tobacco abuse (Chronic) Nonrheumatic tricuspid (valve) insufficiency (Chronic) Nonrheumatic mitral valve insufficiency (Chronic) Nicotine dependence, cigarettes, uncomplicated (Chronic) Hypertension (Chronic) Hyperlipidemia (Chronic) Atherosclerosis of samish coronary artery of samish heart without angina pectoris (Chronic) PTCA/SUSAN to ostium of LMT 10/01/2014 @[facility]; PTCA/SUSAN to mid/distal RCA and proximal RCA in November 2017 at [facility]; Peripheral vascular disease (Chronic) SOB (shortness of breath) (Chronic) Medical History: Medical History (Last Reviewed 03/06/18 @ 06:35 by Deanna Coker) Presence of stent in coronary artery (Chronic) Z95.5 PTCA/SUSAN to ostium of LMT 10/01/2014 @[facility]; PTCA/SUSAN of the mid/distal RCA 11/11/17 Acute respiratory failure with hypoxia and hypercapnia (Acute) J96.01, J96.02 COPD with acute exacerbation (Acute) J44.1 Gram-negative pneumonia (Acute) J15.6 Acute hypercapnic respiratory failure (Acute) J96.02 NSTEMI (non-ST elevated myocardial infarction) (Acute) I21.4 COPD exacerbation (Acute) J44.1 CAD (coronary artery disease) (Chronic) I25.10 Successful PTCA/SUSAN of the of mid/distal RCA with a 2.25 x 38 Promus Synergy, post dilated proximally with a 3.0 x 12 NC balloon at 8 safia (2.5mm); 75%-->0%, no dissection. Successful PTCA/SUSAN of the proximal RCA with a 2.5 x 20 Promus Synergy, post dilated with a 3.0 x 12 at 14 safia; 75%-->0%, no dissection. Tobacco abuse (Chronic) Z72.0 Congestive heart failure (Acute) I50.9 Nonrheumatic tricuspid (valve) insufficiency (Chronic) I36.1 Nonrheumatic mitral valve insufficiency (Chronic) I34.0 Nicotine dependence, cigarettes, uncomplicated (Chronic) F17.210 Hypertension (Chronic) I10 Hyperlipidemia (Chronic) E78.5 Atherosclerosis of samish coronary artery of samish heart without angina pectoris (Chronic) I25.10 PTCA/SUSAN to ostium of LMT 10/01/2014 @[facility]; PTCA/SUSAN to mid/distal RCA and proximal RCA in November 2017 at [facility]; Peripheral vascular disease (Chronic) I73.9 SOB (shortness of breath) (Chronic) R06.02 Anemia D64.9 COPD (chronic obstructive pulmonary disease) J44.9 Diabetes mellitus E11.9 Fibromyalgia M79.7 GERD (gastroesophageal reflux disease) K21.9 Hyperlipidemia E78.5 MARISABEL (obstructive sleep apnea) G47.33 Allergies codeine Allergy (Unknown, Verified 03/30/18 05:15) Unknown lithium Allergy (Unknown, Verified 03/30/18 05:15) Unknown morphine Allergy (Unknown, Verified 03/30/18 05:15) Unknown naproxen [From Naprosyn] Allergy (Unknown, Verified 03/30/18 05:15) Unknown phenobarbital Allergy (Unknown, Verified 03/30/18 05:15) Unknown Sulfa (Sulfonamide Antibiotics) Allergy (Unknown, Verified 03/30/18 05:15) Unknown albuterol Allergy (Verified 03/30/18 05:15) Rash fentanyl Adverse Reaction (Severe, Verified 03/30/18 05:15) Other OD on Fentany patch. Very sensitive to does 75mcg patch Iodine and Iodide Containing Produc Adverse Reaction (Verified 03/30/18 05:15) Unknown Penicillins [PCN] Adverse Reaction (Verified 03/30/18 05:15) Unknown Home Medications: Ambulatory Orders Medication Instructions Recorded Amlodipine [Norvasc] 5 mg PO DAILY 07/13/14 Atorvastatin Calcium [Lipitor] 80 mg PO QHS 07/13/14 Cyclobenzaprine [Flexeril] 10 mg PO DAILY 07/13/14 Fenofibrate [Tricor] 145 mg PO DAILY 07/13/14 Gabapentin [Neurontin] 600 mg PO TIDCM 07/13/14 Fluticasone/Vilanterol [Breo 1 ea IH DAILY 12/17/16 Ellipta 200-25 Mcg INH] Paroxetine HCl [Paxil] 40 mg PO DAILY 12/17/16 diphenhydramine 25 mg tablet 25 mg PO Q6H PRN 03/20/17 nitroglycerin 0.4 mg sublingual 0.4 mg SUBLINGUAL Q5M PRN #25 tab 03/25/17 tablet ranolazine ER 500 mg 500 mg PO BID #180 tab 03/25/17 tablet,extended release,12 hr losartan 50 mg tablet 50 mg PO DAILY #90 tab 10/17/17 clopidogrel 75 mg tablet 75 mg PO DAILY #90 tab 10/23/17 Cholecalciferol (Vitamin D3) 50,000 unit PO QWEEK 11/23/17 [Vitamin D3] Levalbuterol HCl 0.63 mg INHALATION 4X/DAY PRN 11/23/17 Pantoprazole Sodium [Protonix] 20 mg PO BID 11/23/17 buPROPion SR [Wellbutrin SR (150mg 150 mg PO DAILY 11/23/17 tablets)] tiotropium bromide 2.5 2 puff INHALATION QDAY #1 ea 12/10/17 mcg/actuation mist for inhalation isosorbide mononitrate ER 60 mg 90 mg PO DAILY tab 12/11/17 tablet,extended release 24 hr albuterol sulfate HFA 90 2 puff INHALATION Q6H PRN #18 g 01/29/18 mcg/actuation aerosol inhaler Aspirin [Aspirin, Baby] 81 mg PO DAILY@0800 03/30/18 Atrovent Hfa 2 puff IH 4X/DAY 03/30/18 Metoprolol Tartrate 25 mg PO BID 03/30/18 Surgical History: Surgical History (Last Reviewed 03/06/18 @ 06:35 by Deanna Coker) H/O tubal ligation Z98.51 History of left heart catheterization Z98.890 Hx of appendectomy Z98.890, Z90.49 S/P femoral-femoral bypass surgery Z95.828 with gorortex graft in 2001; removal of infected graft with reconstructions of right superficial artery in 2002 Surgical History: appendectomy, - - cad with stent Psychiatric History: No pertinent psych hx 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 Smoking Status: Current every day smoker - *Family History Maternal Family History: Family History (Last Reviewed 03/06/18 @ 06:35 by Deanna Coker) Mother CAD (coronary artery disease) Hypertension Sister CAD (coronary artery disease) Myocardial infarction History Items: Diabetes, Heart Disease, Stroke Paternal Family History: Family History (Last Reviewed 03/06/18 @ 06:35 by Deanna Coker) Mother CAD (coronary artery disease) Hypertension Sister CAD (coronary artery disease) Myocardial infarction History Items: Diabetes, Stroke Review of Systems Unable to obtain accurate/complete ROS d/t: Family poor historians. Otherwise negative x10 systems. Objective: Chest x-ray was personally reviewed. Patient does have bilateral infiltrates that appear to be acute on chronic. Complete PFT (02/18/2018): Irreversible severe large airways obstructive ventilatory defect with a symmetric reduction diffusing capacity (FVC 71%, FEV1 45%, TLC 105%, RV 154%, DLCO 25%) Echocardiogram (12/17/2017): EF 55% with mitral annular calcification and 1+ MVI. Pulmonic valve was not visualized, but reported right ventricular systolic pressure of 33 mmHg. No ASD noted. CT head was read as no acute process. - Physical Exam General: - - Intubated and sedated. RASS -3. Good vent synchrony noted. Appears older than stated age. HEENT: Atraumatic, PERRLA, EOMI, Normocephalic, - - No scleral icterus or injection noted. Oral: No Gingival or Mucosal Lesions/ Ulcerations, Dry Mucosa Neck: Supple, No JVD, No Nodes, Trachea Midline Lungs: No rhonchi, No rales, Diminished, Wheezes, - - Symmetric expansion. No dullness to percussion. Cardiovascular: Normal S1, Normal S2, No murmurs, No rub noted, No Gallop, Tachycardic Abdomen: Bowel Sounds Present, Soft, Non Tender, Distended - Slightly Extremities: No cyanosis, No edema, Clubbing Skin: No rashes, No breakdown, - - Mild excoriations noted of the lower extremities without surrounding erythema Musculoskeletal: No Tenderness to Palpation of Joints or Extremities Lymphatic: No Cervical, Supraclavicular, or Inguinal Adenopathy Neurological: Cranial nerves II-XII grossly intact, Neuro grossly intact Psych/Mental Status: Flat Affect Vital Signs Temp Pulse Resp BP Pulse Ox 37.8 C H 128 H 22 H 95/61 94 03/30/18 07:40 03/30/18 07:40 03/30/18 07:40 03/30/18 07:40 03/30/18 07:40 Oxygen Delivery Method Mechanical Ventilator Weight: 74.8 kg Body Mass Index (BMI) 28.3 Laboratory Tests Past 24 Hrs 03/30/18 03/30/18 03/30/18 04:48 04:48 04:48 WBC 13.5 H RBC 4.98 Hgb 14.3 Hct 46.9 MCV 94.2 MCH 28.7 MCHC 30.5 L RDW 14.3 RDW Differential 48.9 H Plt Count 389 MPV 10.2 Immature Gran % (Auto) 1.000 H Neut % (Auto) 53.1 Lymph % (Auto) 34.8 [place] % (Auto) 6.5 Eos % (Auto) 3.5 Baso % (Auto) 1.1 H Absolute Neuts (auto) 7.2 Absolute Lymphs (auto) 4.71 H Total Counted Not Reportable PT INR Specimen Type Sample Site pH Bicarbonate Actual POC Total CO2 Base Excess O2 Saturation O2 % ABG pCO2 ABG pO2 Respiration Rate O2 Delivery Device Vent Mode Tidal Volume POC PEEP Blood Gas Notified Whom Sodium 137 Potassium 5.9 H Chloride 103 Carbon Dioxide 21.0 Anion Gap 13 BUN 20 H Creatinine 1.41 H Estim Creat Clear Calc 30.69 Est GFR (MDRD) Af Amer 47 L Est GFR (MDRD) Non-Af 39 L BUN/Creatinine Ratio 14.2 Glucose 291 H Lactic Acid Calcium 8.1 L Troponin I 0.025 B-Natriuretic Peptide 120.2 H Urine Color Urine Clarity Urine pH Ur Specific [place] Urine Protein Urine Glucose (UA) Urine Ketones Urine Occult Blood Urine Nitrite Urine Bilirubin Urine Urobilinogen Ur Leukocyte Esterase Urine RBC Urine WBC Ur Squamous Epith Cells Ur Transition Epith Cell Amorphous Sediment Urine Bacteria Urine Mucus 03/30/18 03/30/18 03/30/18 05:36 05:55 06:47 WBC RBC Hgb Hct MCV MCH MCHC RDW RDW Differential Plt Count MPV Immature Gran % (Auto) Neut % (Auto) Lymph % (Auto) [place] % (Auto) Eos % (Auto) Baso % (Auto) Absolute Neuts (auto) Absolute Lymphs (auto) Total Counted PT 12.7 INR 1.0 Specimen Type ART Sample Site R Brachial pH 7.19 L* Bicarbonate Actual 22.2 POC Total CO2 24 Base Excess -6 L O2 Saturation 93 L O2 % 50 ABG pCO2 58.3 H ABG pO2 83 Respiration Rate 14 O2 Delivery Device Vent Vent Mode A-C Tidal Volume 450 POC PEEP 5 Blood Gas Notified Whom ED MD Sodium Potassium Chloride Carbon Dioxide Anion Gap BUN Creatinine Estim Creat Clear Calc Est GFR (MDRD) Af Amer Est GFR (MDRD) Non-Af BUN/Creatinine Ratio Glucose Lactic Acid 1.8 Calcium Troponin I B-Natriuretic Peptide Urine Color Urine Clarity Urine pH Ur Specific [place] Urine Protein Urine Glucose (UA) Urine Ketones Urine Occult Blood Urine Nitrite Urine Bilirubin Urine Urobilinogen Ur Leukocyte Esterase Urine RBC Urine WBC Ur Squamous Epith Cells Ur Transition Epith Cell Amorphous Sediment Urine Bacteria Urine Mucus 03/30/18 07:05 WBC RBC Hgb Hct MCV MCH MCHC RDW RDW Differential Plt Count MPV Immature Gran % (Auto) Neut % (Auto) Lymph % (Auto) [place] % (Auto) Eos % (Auto) Baso % (Auto) Absolute Neuts (auto) Absolute Lymphs (auto) Total Counted PT INR Specimen Type Sample Site pH Bicarbonate Actual POC Total CO2 Base Excess O2 Saturation O2 % ABG pCO2 ABG pO2 Respiration Rate O2 Delivery Device Vent Mode Tidal Volume POC PEEP Blood Gas Notified Whom Sodium Potassium Chloride Carbon Dioxide Anion Gap BUN Creatinine Estim Creat Clear Calc Est GFR (MDRD) Af Amer Est GFR (MDRD) Non-Af BUN/Creatinine Ratio Glucose Lactic Acid Calcium Troponin I B-Natriuretic Peptide Urine Color Yellow Urine Clarity Cloudy Urine pH 6.0 Ur Specific [place] 1.020 Urine Protein 100 H Urine Glucose (UA) 50 H Urine Ketones Negative Urine Occult Blood 250 H Urine Nitrite Negative Urine Bilirubin Negative Urine Urobilinogen Normal Ur Leukocyte Esterase Negative Urine RBC 10-25 SEEN Urine WBC 0-5 SEEN Ur Squamous Epith Cells 0-5 SEEN Ur Transition Epith Cell 0-5 SEEN Amorphous Sediment 2+ Urine Bacteria RARE Urine Mucus 0 SEEN Clinical Impression(s) from Imaging Studies Brain CT 03/30/18 04:57 IMPRESSION: 1. Negative for intracranial hemorrhage or acute intracranial disease. 2. Paranasal sinus disease and additional chronic changes, as above. Individualized dose optimization techniques were used for this CT. at 0701 Reported and signed by: Leonard Romeo MD Electronically Signed: Leonard Romeo, at 7:00 EST Tel , Service support , Chest X-Ray 03/30/18 05:06 IMPRESSION: 1. The endotracheal tube appears in good position and the NG tube tip lies at the GE junction. 2. Chronic lung disease with emphysema and interstitial fibrosis. Superimposed interstitial pulmonary edema is also suggested. at 0572 Reported and signed by: Leonard Romeo MD Electronically Signed: Leonard Romeo, at 5:51 EST Tel , Service support , Assessment/Plan RECOMMENDATIONS: 1. Repeat ABG for ventilator recommendations 2. Initiate fentanyl drip, possible transition to propofol 3. Initiate tube feeds 4. Spontaneous breathing and awakening trials per protocol 5. Initiate bronchodilators, mucolytic, and steroid therapy 6. Antibiotics as prescribed, obtain viral panel IMPRESSIONS: 1. Acute combined respiratory failure secondary to probable COPD exacerbation With advanced COPD on previous pulmonary function testing. Family reports what sounds like a viral illness over the last 2-3 weeks. Patient should have a viral panel. Respiratory isolation until results are available. Will obtain an ABG to ensure adequate oxygenation and ventilation on current settings. Vent changes may be necessary. Patient will be initiated on a fentanyl drip. Attempt to transition to propofol therapy as this will decrease risk for delirium. Anticipate protracted course, so tube feeds can be initiated. 2. Possible acute on chronic diastolic congestive heart failure/coronary artery disease Patient's last echocardiogram did show resolution of previous systolic dysfunction. Patient does have bilateral infiltrates and there is some concern for possible congestive heart failure with elevated BNP. However, renal functi on is not optimal at this time and this may be erroneous. We will continue to treat patient as severe sepsis for now. Oxygenation does not appear to be a significant issue. Possible diuretic therapy tomorrow. 3. Acute kidney injury Clinical suspicion for prerenal etiology. Patient has been sick recently and has had decreased p.o. intake per the family. We will continue with volume resuscitation through the GI system with tube feeds. Continue to monitor. Replete electrolytes as indicated. 4. Tobacco abuse with oxygen therapy/hypertension/hyperlipidemia/peripheral vascular disease/poor follow-up Complicates care, management, recovery and prognosis. Okay to continue with baseline medications. TIME: 34 minutes critical care time spent addressing patient's acute respiratory failure, possible CHF, acute kidney injury, review of all data and collaboration with care team (7:30 AM to 8:10 AM) Code Visit [id number]: [id number] Critical care first hour
--- NOTE | 2018-03-30 08:03 | NURSING ---
ICU 1
[2018-03-30 08:20] LABS: Base Excess -8 mmol/L (-2 to +2); Bicarbonate 20.3 mmol/L (22-26); Blood Gas Specimen Type ART; FI02 50; Mode A-C; O2 Delivery Device Vent; PEEP 5; PO2 41 mmHG (75-100); RR 14; SITE R Brachial; SO2 63 % (95-99); Time Given 800; Total Carbon Dioxide 22 mmol/L; Vt 450; pCO2 52.8 mmHg (35-45); pH 7.19 (7.35-7.45)
[2018-03-30] MEDS: fentaNYL drip 100 ML 5 MCG IV (09:00)
[2018-03-30] MEDS: Propofol 10MG/Ml 1,000 MG/100 ML Bottle 4.488 MG CONT INF ×2 (09:00→21:13)
[2018-03-30 10:31] LABS: Allen Test POS; Base Excess -6 mmol/L (-2 to +2); Bicarbonate 21.3 mmol/L (22-26); Blood Gas Specimen Type ART; FI02 50; Mode A-C; O2 Delivery Device Vent; PEEP 5; PO2 67 mmHG (75-100); RR 16; SITE L Radial; SO2 89 % (95-99); Time Given 1020; Total Carbon Dioxide 23 mmol/L; Vt 500; pCO2 48.5 mmHg (35-45); pH 7.25 (7.35-7.45)
[2018-03-30] MEDS: Chlorhexidine 15 ML PO ×2 (11:18→21:13)
[2018-03-30] MEDS: Enoxaparin 40 MG/0.4 ML Syringe SC (11:20)
[2018-03-30 11:30] LABS: CPK Total, Creatine Kinase 85 U/L (26-192)
[2018-03-30 11:31] LABS: Triglycerides 204 mg/dL
[2018-03-30] MEDS: 0.9% Normal Saline 1,000 ML 100 ML IV (11:35)
[2018-03-30] MEDS: Clopidogrel Bisulfate 75 MG Tablet GT (12:44)
[2018-03-30] MEDS: Famotidine 20 MG Tablet GT ×2 (12:44→21:14)
[2018-03-30] MEDS: Aspirin 81 MG TAB.CHEW GT (12:44)
[2018-03-30 12:56] LABS: Bedside Glucose 149 mg/dL (70-110)
[2018-03-30] MEDS: CHLORHEXIDINE GLUC 2% CLOTH 1 EACH TOWELETTE TOPICAL (14:02)
[2018-03-30] MEDS: Vital AF 1.2 Cal Liquid 1,000 ML 60 ML GT (14:02)
--- NOTE | 2018-03-30 14:42 | EKG12_ITS ---
Test Reason : RHYTHM CHANGE Blood Pressure : / mmHG Vent. Rate : 110 BPM Atrial Rate : 110 BPM P-R Int : 160 ms QRS Dur : 080 ms QT Int : 356 ms P-R-T Axes : 078 042 236 degrees QTc Int : 481 ms Sinus tachycardia Low voltage QRS (limb leads) Anterolateral infarct ,age undetermined T wave abnormality, consider anterior-lateral ischemia T wave abnormality, consider inferior ischemia Abnormal ECG Confirmed by PILAR IVEY, BETINA ([id number]), editor news MACKENZIE TORRES ([id number]) on 04/03/2018 8:42:27 AM Referred By: COLT Confirmed By:BETINA QUEZADA MD
[2018-03-30] MEDS: Acetaminophen 650 MG/20 ML UDC GT (16:01)
[2018-03-30 18:11] LABS: Bedside Glucose 131 mg/dL (70-110)
[2018-03-30] MEDS: LEVALBUTEROL HCL 0.63 MG/3 ML VIAL.NEB IH (19:41)
[2018-03-30] MEDS: 0.9% NaCl Peripheral Flush Adult/Peds IV ×2 (21:13→21:14)
[2018-03-30] MEDS: Metoprolol Tartrate 25 MG Tablet GT (21:14)
[2018-03-30 23:51] LABS: Bedside Glucose 145 mg/dL (70-110)
[2018-03-31] VITALS (54 sets, daily range): BP systolic 59–126; BP diastolic 29–99; PULSE 70–141; RESP 16–46; TEMP 37.5–39.3; O2SAT 35–100
[2018-03-31] MEDS: CHLORHEXIDINE GLUC 2% CLOTH 1 EACH TOWELETTE TOPICAL (02:14)
[2018-03-31] MEDS: fentaNYL drip 100 ML 5 MCG IV ×2 (02:16→18:42)
[2018-03-31 04:21] LABS: Absolute Lymphocyte Count 1.18 X10^3/ul (0.83-4.51); Absolute Neutrophil Count 10.5 X10^3/uL (2.0-7.7); Basophil# 0.01 X10^3/uL; Basophil% 0.1 % (0-1); Eosinophil# 0.01 X10^3/uL; Eosinophils% 0.1 % (0-5); Hematocrit 34.6 % (37-47); Hemoglobin 11.1 g/dl (12.0-15.0); Lymphocyte # 1.18 X10^3/ul (4.0); Lymphocyte % 9.3 % (19-41); Mean Corp Hgb Conc 32.1 g/gl (32-36); Mean Corpuscular Hgb 29.3 pg (27.0-32.0); Mean Corpuscular Volume 91.3 fL (81-99); Mean Platelet Vol. 10.3 fl (6.2-12.0); Monocyte# 0.93 X10^3/uL; Monocyte% 7.3 % (0-10); Neutrophil # 10.51 X10^3/uL (2.7-7.7); Neutrophil % 82.8 % (47-70); Platelet Count 222 K/mm3 (150-450); RBC Distribution Width CV 14.5 % (11.6-14.6); RBC Distribution Width SD 46.9 fl (35.1-43.9); Red Blood Count 3.79 M/mm3 (4.2-5.4); White Blood Count 12.7 K/mm3 (4.4-11.0)
[2018-03-31 04:22] LABS: POSITIVE COUNT NO; POSITIVE DIFFERENTIAL NO; POSITIVE MORPHOLOGY NO
[2018-03-31 04:34] LABS: Anion Gap 10 (5-15); BUN 33 mg/dL (7-18); BUN/Creat Ratio 28.9 RATIO (10-20); Calcium,Total 7.9 mg/dL (8.5-10.1); Chloride 109 mmol/L (98-107); Creatinine, Serum 1.14 mg/dL (0.55-1.02); EST Glomerular Filtration Rate 50 mL/min (>60); Est Glom Filt Rate - Afr Amer 60 mL/min (>60); Estimated Creatinine Clearance 36.36 ml/min; Glucose 124 mg/dL (74-106); Magnesium 2.5 mg/dL (1.6-2.6); Phosphorus 2.9 mg/dL (2.5-4.9); Potassium 4.6 mmol/L (3.5-5.1); Sodium Level 141 mmol/L (136-145)
[2018-03-31 05:21] LABS: Bedside Glucose 154 mg/dL (70-110)
[2018-03-31] MEDS: Insulin Lispro 100 UNIT/ML INSULN.PEN SC ×2 (05:21→17:32)
[2018-03-31] MEDS: 0.9% NaCl Peripheral Flush Adult/Peds IV ×3 (05:21→21:57)
--- NOTE | 2018-03-31 05:35 | CPS ---
pt failed Spon awakening trial, pt's HR increased RR increased , pt became anxious, RN had to sedate pt before SBT began.
--- NOTE | 2018-03-31 06:20 | PN_ITS ---
Subjective: The patient was seen and examined at the bedside this morning. Events from the last 24 hours have been reviewed. The patient was febrile overnight with a T- max of 38.4 ?C. She is currently maintaining appropriate oxygen saturations on 35% FiO2. The patient failed her spontaneous breathing trial this morning due to the development of extreme anxiety, tachycardia and tachypnea. In addition, respiratory therapy reports that they are still suctioning a great deal of sputum. She is currently tolerating tube feeds. Objective: The patient's most recent lab work, culture data and imaging studies have all been personally reviewed. Respiratory viral panel was negative. Blood and sputum cultures are pending. 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 A 6-minute walk test completed March 2018 revealed the need for 3 L/min of supplemental oxygen with any exertion. General: - - Intubated, sedated and mechanically ventilated. Currently tolerating assist control mode of mechanical ventilation. HEENT: Atraumatic, PERRLA, Normocephalic Oral: No Gingival or Mucosal Lesions/ Ulcerations, - - Endotracheal and OG tubes remain in place Neck: Supple, No Nodes, Trachea Midline Lungs: No wheeze, No rales, Diminished, Rhonchi Cardiovascular: Regular rate, Regular Rhythm, Normal S1, Normal S2, No murmurs Abdomen: Bowel Sounds Present, Soft, Non Tender Extremities: No clubbing, No cyanosis, No edema Skin: No breakdown Musculoskeletal: No Tenderness to Palpation of Joints or Extremities Lymphatic: No Cervical, Supraclavicular, or Inguinal Adenopathy Neurological: Neuro grossly intact, - - Alert and following commands. Vital Signs Temp Pulse Resp BP Pulse Ox 37.7 C H 91 17 96/54 L 96 03/31/18 06:00 03/31/18 06:00 03/31/18 06:00 03/31/18 06:00 03/31/18 06:00 Oxygen Delivery Method Mechanical Ventilator Weight: 160 lb 4.417 oz Body Mass Index (BMI) 28.2 Intake and Output for Last 24 Hours 03/29/18 03/30/18 03/31/18 23:59 23:59 23:59 Intake Total 1162.7 / 1162.7 355.1 / 355.1 Output Total 675 / 675 200 / 200 Balance 487.7 / 487.7 155.1 / 155.1 Labs (Last 48 Hours) 03/30/18 03/30/18 03/30/18 04:48 04:48 04:48 WBC 13.5 H RBC 4.98 Hgb 14.3 Hct 46.9 MCV 94.2 MCH 28.7 MCHC 30.5 L RDW 14.3 RDW Differential 48.9 H Plt Count 389 MPV 10.2 Immature Gran % (Auto) 1.000 H Neut % (Auto) 53.1 Lymph % (Auto) 34.8 Hall % (Auto) 6.5 Eos % (Auto) 3.5 Baso % (Auto) 1.1 H Absolute Neuts (auto) 7.2 Absolute Lymphs (auto) 4.71 H Total Counted Not Reportable PT INR Specimen Type Sample Site pH Bicarbonate Actual POC Total CO2 Base Excess O2 Saturation O2 % ABG pCO2 ABG pO2 Angelo Test Respiration Rate O2 Delivery Device Liter Flow Minute Volume Vent Mode Tidal Volume POC PEEP POC Pressure Suppt Pressure High Pressure Low Time High Time Low EPAP IPAP Blood Gas Notified Whom Blood Gas Notified Time Sodium 137 Potassium 5.9 H Chloride 103 Carbon Dioxide 21.0 Anion Gap 13 BUN 20 H Creatinine 1.41 H Estim Creat Clear Calc 30.69 Est GFR (MDRD) Af Amer 47 L Est GFR (MDRD) Non-Af 39 L BUN/Creatinine Ratio 14.2 Glucose 291 H Lactic Acid Calcium 8.1 L Phosphorus Magnesium Total Creatine Kinase Troponin I 0.025 B-Natriuretic Peptide 120.2 H Triglycerides Urine Color Urine Clarity Urine pH Ur Specific [place] Urine Protein Urine Glucose (UA) Urine Ketones Urine Occult Blood Urine Nitrite Urine Bilirubin Urine Urobilinogen Ur Leukocyte Esterase Urine RBC Urine WBC Ur Squamous Epith Cells Ur Transition Epith Cell Amorphous Sediment Urine Bacteria Urine Mucus POC Glucose 03/30/18 03/30/18 03/30/18 05:36 05:55 06:47 WBC RBC Hgb Hct MCV MCH MCHC RDW RDW Differential Plt Count MPV Immature Gran % (Auto) Neut % (Auto) Lymph % (Auto) Hall % (Auto) Eos % (Auto) Baso % (Auto) Absolute Neuts (auto) Absolute Lymphs (auto) Total Counted PT 12.7 INR 1.0 Specimen Type ART Sample Site R Brachial pH 7.19 L* Bicarbonate Actual 22.2 POC Total CO2 24 Base Excess -6 L O2 Saturation 93 L O2 % 50 ABG pCO2 58.3 H ABG pO2 83 Angelo Test Respiration Rate 14 O2 Delivery Device Vent Liter Flow Minute Volume Vent Mode A-C Tidal Volume 450 POC PEEP 5 POC Pressure Suppt Pressure High Pressure Low Time High Time Low EPAP IPAP Blood Gas Notified Whom ED Blood Gas Notified Time Sodium Potassium Chloride Carbon Dioxide Anion Gap BUN Creatinine Estim Creat Clear Calc Est GFR (MDRD) Af Amer Est GFR (MDRD) Non-Af BUN/Creatinine Ratio Glucose Lactic Acid 1.8 Calcium Phosphorus Magnesium Total Creatine Kinase Troponin I B-Natriuretic Peptide Triglycerides Urine Color Urine Clarity Urine pH Ur Specific [place] Urine Protein Urine Glucose (UA) Urine Ketones Urine Occult Blood Urine Nitrite Urine Bilirubin Urine Urobilinogen Ur Leukocyte Esterase Urine RBC Urine WBC Ur Squamous Epith Cells Ur Transition Epith Cell Amorphous Sediment Urine Bacteria Urine Mucus POC Glucose 03/30/18 03/30/18 03/30/18 07:05 08:09 08:13 WBC RBC Hgb Hct MCV MCH MCHC RDW RDW Differential Plt Count MPV Immature Gran % (Auto) Neut % (Auto) Lymph % (Auto) Hall % (Auto) Eos % (Auto) Baso % (Auto) Absolute Neuts (auto) Absolute Lymphs (auto) Total Counted PT INR Specimen Type ART Cancelled Sample Site R Brachial Cancelled pH 7.19 L* Cancelled Bicarbonate Actual 20.3 L Cancelled POC Total CO2 22 Cancelled Base Excess -8 L Cancelled O2 Saturation 63 L Cancelled O2 % 50 Cancelled ABG pCO2 52.8 H Cancelled ABG pO2 41 L Cancelled Angelo Test NA Cancelled Respiration Rate 14 Cancelled O2 Delivery Device Vent Cancelled Liter Flow Cancelled Minute Volume 8.00 Cancelled Vent Mode A-C Cancelled Tidal Volume 450 Cancelled POC PEEP 5 Cancelled POC Pressure Suppt Cancelled Pressure High Cancelled Pressure Low Cancelled Time High Cancelled Time Low Cancelled EPAP Cancelled IPAP Cancelled Blood Gas Notified Whom ICU Cancelled Blood Gas Notified Time 800 Cancelled Sodium Potassium Chloride Carbon Dioxide Anion Gap BUN Creatinine Estim Creat Clear Calc Est GFR (MDRD) Af Amer Est GFR (MDRD) Non-Af BUN/Creatinine Ratio Glucose Lactic Acid Calcium Phosphorus Magnesium Total Creatine Kinase Troponin I B-Natriuretic Peptide Triglycerides Urine Color Yellow Urine Clarity Cloudy Urine pH 6.0 Ur Specific [place] 1.020 Urine Protein 100 H Urine Glucose (UA) 50 H Urine Ketones Negative Urine Occult Blood 250 H Urine Nitrite Negative Urine Bilirubin Negative Urine Urobilinogen Normal Ur Leukocyte Esterase Negative Urine RBC 10-25 SEEN Urine WBC 0-5 SEEN Ur Squamous Epith Cells 0-5 SEEN Ur Transition Epith Cell 0-5 SEEN Amorphous Sediment 2+ Urine Bacteria RARE Urine Mucus 0 SEEN POC Glucose 03/30/18 03/30/18 03/30/18 09:15 10:20 12:41 WBC RBC Hgb Hct MCV MCH MCHC RDW RDW Differential Plt Count MPV Immature Gran % (Auto) Neut % (Auto) Lymph % (Auto) Hall % (Auto) Eos % (Auto) Baso % (Auto) Absolute Neuts (auto) Absolute Lymphs (auto) Total Counted PT INR Specimen Type ART Sample Site L Radial pH 7.25 L Bicarbonate Actual 21.3 L POC Total CO2 23 Base Excess -6 L O2 Saturation 89 L O2 % 50 ABG pCO2 48.5 H ABG pO2 67 L Angelo Test POS Respiration Rate 16 O2 Delivery Device Vent Liter Flow Minute Volume 8.00 Vent Mode A-C Tidal Volume 500 POC PEEP 5 POC Pressure Suppt Pressure High Pressure Low Time High Time Low EPAP IPAP Blood Gas Notified Whom ICU Blood Gas Notified Time 1020 Sodium Potassium Chloride Carbon Dioxide Anion Gap BUN Creatinine Estim Creat Clear Calc Est GFR (MDRD) Af Amer Est GFR (MDRD) Non-Af BUN/Creatinine Ratio Glucose Lactic Acid Calcium Phosphorus Magnesium Total Creatine Kinase 85 Troponin I B-Natriuretic Peptide Triglycerides 204 H Urine Color Urine Clarity Urine pH Ur Specific [place] Urine Protein Urine Glucose (UA) Urine Ketones Urine Occult Blood Urine Nitrite Urine Bilirubin Urine Urobilinogen Ur Leukocyte Esterase Urine RBC Urine WBC Ur Squamous Epith Cells Ur Transition Epith Cell Amorphous Sediment Urine Bacteria Urine Mucus POC Glucose 149 H 03/30/18 03/30/18 03/30/18 15:30 17:57 18:05 WBC RBC Hgb Hct MCV MCH MCHC RDW RDW Differential Plt Count MPV Immature Gran % (Auto) Neut % (Auto) Lymph % (Auto) Hall % (Auto) Eos % (Auto) Baso % (Auto) Absolute Neuts (auto) Absolute Lymphs (auto) Total Counted PT INR Specimen Type Sample Site pH Bicarbonate Actual POC Total CO2 Base Excess O2 Saturation O2 % ABG pCO2 ABG pO2 Angelo Test Respiration Rate O2 Delivery Device Liter Flow Minute Volume Vent Mode Tidal Volume POC PEEP POC Pressure Suppt Pressure High Pressure Low Time High Time Low EPAP IPAP Blood Gas Notified Whom Blood Gas Notified Time Sodium Potassium Chloride Carbon Dioxide Anion Gap BUN Creatinine Estim Creat Clear Calc Est GFR (MDRD) Af Amer Est GFR (MDRD) Non-Af BUN/Creatinine Ratio Glucose Lactic Acid Calcium Phosphorus Magnesium Total Creatine Kinase Troponin I 0.516 H 0.553 H B-Natriuretic Peptide Triglycerides Urine Color Urine Clarity Urine pH Ur Specific [place] Urine Protein Urine Glucose (UA) Urine Ketones Urine Occult Blood Urine Nitrite Urine Bilirubin Urine Urobilinogen Ur Leukocyte Esterase Urine RBC Urine WBC Ur Squamous Epith Cells Ur Transition Epith Cell Amorphous Sediment Urine Bacteria Urine Mucus POC Glucose 131 H 03/30/18 03/30/18 03/31/18 21:05 23:42 04:10 WBC 12.7 H RBC 3.79 L Hgb 11.1 L Hct 34.6 L MCV 91.3 MCH 29.3 MCHC 32.1 RDW 14.5 RDW Differential 46.9 H Plt Count 222 MPV 10.3 Immature Gran % (Auto) 0.400 Neut % (Auto) 82.8 H Lymph % (Auto) 9.3 L Hall % (Auto) 7.3 Eos % (Auto) 0.1 Baso % (Auto) 0.1 Absolute Neuts (auto) 10.5 H Absolute Lymphs (auto) 1.18 Total Counted Not Reportable PT INR Specimen Type Sample Site pH Bicarbonate Actual POC Total CO2 Base Excess O2 Saturation O2 % ABG pCO2 ABG pO2 Angelo Test Respiration Rate O2 Delivery Device Liter Flow Minute Volume Vent Mode Tidal Volume POC PEEP POC Pressure Suppt Pressure High Pressure Low Time High Time Low EPAP IPAP Blood Gas Notified Whom Blood Gas Notified Time Sodium Potassium Chloride Carbon Dioxide Anion Gap BUN Creatinine Estim Creat Clear Calc Est GFR (MDRD) Af Amer Est GFR (MDRD) Non-Af BUN/Creatinine Ratio Glucose Lactic Acid Calcium Phosphorus Magnesium Total Creatine Kinase Troponin I 0.578 H B-Natriuretic Peptide Triglycerides Urine Color Urine Clarity Urine pH Ur Specific [place] Urine Protein Urine Glucose (UA) Urine Ketones Urine Occult Blood Urine Nitrite Urine Bilirubin Urine Urobilinogen Ur Leukocyte Esterase Urine RBC Urine WBC Ur Squamous Epith Cells Ur Transition Epith Cell Amorphous Sediment Urine Bacteria Urine Mucus POC Glucose 145 H 03/31/18 03/31/18 04:10 05:17 WBC RBC Hgb Hct MCV MCH MCHC RDW RDW Differential Plt Count MPV Immature Gran % (Auto) Neut % (Auto) Lymph % (Auto) Hall % (Auto) Eos % (Auto) Baso % (Auto) Absolute Neuts (auto) Absolute Lymphs (auto) Total Counted PT INR Specimen Type Sample Site pH Bicarbonate Actual POC Total CO2 Base Excess O2 Saturation O2 % ABG pCO2 ABG pO2 Angelo Test Respiration Rate O2 Delivery Device Liter Flow Minute Volume Vent Mode Tidal Volume POC PEEP POC Pressure Suppt Pressure High Pressure Low Time High Time Low EPAP IPAP Blood Gas Notified Whom Blood Gas Notified Time Sodium 141 Potassium 4.6 Chloride 109 H Carbon Dioxide 22.0 Anion Gap 10 BUN 33 H Creatinine 1.14 H Estim Creat Clear Calc 36.36 Est GFR (MDRD) Af Amer 60 Est GFR (MDRD) Non-Af 50 L BUN/Creatinine Ratio 28.9 H Glucose 124 H Lactic Acid Calcium 7.9 L Phosphorus 2.9 Magnesium 2.5 Total Creatine Kinase Troponin I B-Natriuretic Peptide Triglycerides Urine Color Urine Clarity Urine pH Ur Specific [place] Urine Protein Urine Glucose (UA) Urine Ketones Urine Occult Blood Urine Nitrite Urine Bilirubin Urine Urobilinogen Ur Leukocyte Esterase Urine RBC Urine WBC Ur Squamous Epith Cells Ur Transition Epith Cell Amorphous Sediment Urine Bacteria Urine Mucus POC Glucose 154 H Microbiology 03/30/18 08:50 Mucosa - Nasopharyngeal Respiratory Panel (PCR) - Final Clinical Impression(s) from Imaging Studies Brain CT 03/30/18 04:57 IMPRESSION: 1. Negative for intracranial hemorrhage or acute intracranial disease. 2. Paranasal sinus disease and additional chronic changes, as above. Individualized dose optimization techniques were used for this CT. at 0701 Reported and signed by: Leonard Romeo MD Electronically Signed: Leonard Romeo, at 7:00 EST Tel , Service support , Chest X-Ray 03/30/18 05:06 IMPRESSION: 1. The endotracheal tube appears in good position and the NG tube tip lies at the GE junction. 2. Chronic lung disease with emphysema and interstitial fibrosis. Superimposed interstitial pulmonary edema is also suggested. at 0552 Reported and signed by: Leonard Romeo MD Electronically Signed: Leonard Romeo, at 5:51 EST Tel , Service support , Medical Necessity - Tobacco Use Smoking Status: Current every day smoker Assessment/Plan All Active Problems (Last Reviewed 03/06/18 @ 06:35 by Deanna Coker) Acute respiratory failure with hypoxia and hypercapnia (Acute) COPD with acute exacerbation (Acute) Gram-negative pneumonia (Acute) Acute hypercapnic respiratory failure (Acute) NSTEMI (non-ST elevated myocardial infarction) (Acute) COPD exacerbation (Acute) Congestive heart failure (Acute) RECOMMENDATIONS: 1. Broaden antibiotics from Levaquin to Zosyn. Check MRSA screen as well. 2. Check respiratory viral panel 3. Continue Xopenex. Add twice daily budesonide to aerosol regimen. 4. Discontinue current sedation regimen and transition to Precedex to facilitate weaning from mechanical ventilation. 5. Continue tube feeds as ordered. 6. Continue Lovenox and Pepcid for prophylaxis. 7. Initiate nicotine replacement therapy. IMPRESSIONS: 1. Acute on chronic combined respiratory failure likely secondary to COPD with exacerbation The patient does have known severe COPD, based upon recent pulmonary function studies from February 2018. In addition, a recent 6-minute walk test revealed the need for 3 L/min with exertion at her baseline. The patient does have an extensive smoking history and continues to smoke daily. At this time, the patient's antibiotics are going to be broadened to include Zosyn. While she did not have a definitive infiltrate on plain film chest imaging, she does have copious sputum production, which could suggest underlying tracheobronchitis. The patient will be continued on Xopenex. Budesonide will be added to the patient's aerosol regimen twice daily. Her sedation regimen will be transition to Precedex to assist with weaning from mechanical ventilatory support. Tube feeds will be continued as ordered. 2. Sepsis with concerns for underlying pulmonary infectious process Levaquin has been broadened to Zosyn today. Additional supplemental IV fluid will be provided. We will also plan to repeat the patient's sputum culture. 3. Possible heart failure with preserved ejection fraction/troponin elevation Cardiology is currently following to assist with medical management. At the current time, the patient's hemodynamics preclude the utilization of diuretics. Continue to hold antihypertensives at this time. We will plan to provide the patient with supplemental IV fluid hydration. 4. Acute kidney injury Potentially prerenal in etiology. Creatinine is improving with time. Continue to monitor urine output. There is no current indication for renal replacement therapy. 5. Continuous tobacco dependence/hypertension/hyperlipidemia/peripheral vascular disease Complicates care, management, recovery and prognosis. We will plan to continue to hold antihypertensives, given tenuous hemodynamics. Additionally, the patient will be started on nicotine replacement therapy today. TIME: 45 minutes of critical care time, independent of procedures, was spent addressing the patient's acute on chronic combined respiratory failure, sepsis, COPD exacerbation, possible heart failure, troponin elevation, acute kidney injury, review of all data and collaboration with the care team. ([id number]) Code Visit [id number]: [id number] Critical care first hour
[2018-03-31] MEDS: LEVALBUTEROL HCL 0.63 MG/3 ML VIAL.NEB IH ×3 (06:36→19:33)
--- NOTE | 2018-03-31 07:20 | PCM.PN.HOSP ---
Subjective: Patient is a 73-year-old lady with history of COPD who was brought in on account of progressive shortness of breath patient was intubated as a result of acute respiratory failure. Seen remains on the vent attempts at weaning this a.m. was unsuccessful. Objective: GENERAL: Awake on the vent HEENT: Atraumatic; ET-tube in place EYES; Anicteric, Normal Conjunctiva NECK; supple, normal thyroid, RESPIRATORY: Diminished to auscultation bilaterally, CARDIOVASCULAR: Regular S1 S2, no audible murmurs GI: soft, non-tender, normoactive bowel sounds, : No Renal angle tenderness; EXTREMITIES: No edema, no clubbing, no cyanosis. MUSCULOSKELETAL: No Joint Tenderness; NEURO: Awake; no lateralizing signs. SKIN: No Rash Vitals/I&O's: Vital Signs Temp Pulse Resp BP Pulse Ox 99.8 F H 90 16 96/54 L 97 03/31/18 06:00 03/31/18 06:36 03/31/18 06:36 03/31/18 06:00 03/31/18 06:36 Oxygen Delivery Method Mechanical Ventilator Weight: 72.7 kg Body Mass Index (BMI) 28.2 Intake and Output for Last 24 Hours 03/29/18 03/30/18 03/31/18 23:59 23:59 23:59 Intake Total 1162.7 / 1162.7 355.1 / 355.1 Output Total 675 / 675 200 / 200 Balance 487.7 / 487.7 155.1 / 155.1 Microbiology Past 72 Hours 03/30/18 08:50 Mucosa - Nasopharyngeal Respiratory Panel (PCR) - Final Laboratory Results 03/30/18 04:48: B-Natriuretic Peptide 120.2 H 03/30/18 06:47: Lactic Acid 1.8 03/30/18 07:05: Urine Color Yellow, Urine Clarity Cloudy, Urine pH 6.0, Ur Specific Stitzer 1.020, Urine Protein 100 H, Urine Glucose (UA) 50 H, Urine Ketones Negative, Urine Occult Blood 250 H, Urine Nitrite Negative, Urine Bilirubin Negative, Urine Urobilinogen Normal, Ur Leukocyte Esterase Negative, Urine RBC 10-25 SEEN, Urine WBC 0-5 SEEN, Ur Squamous Epith Cells 0-5 SEEN, Ur Transition Epith Cell 0-5 SEEN, Amorphous Sediment 2+, Urine Bacteria RARE, Urine Mucus 0 SEEN 03/30/18 08:09: Specimen Type ART, Sample Site R Brachial, pH 7.19 L*, Bicarbonate Actual 20.3 L, POC Total CO2 22, Base Excess -8 L, O2 Saturation 63 L, O2 % 50, ABG pCO2 52.8 H, ABG pO2 41 L, Angelo Test NA, Respiration Rate 14, O2 Delivery Device Vent, Minute Volume 8.00, Vent Mode A-C, Tidal Volume 450, POC PEEP 5, Blood Gas Notified Whom ICU , Blood Gas Notified Time 800 03/30/18 08:13: Specimen Type Cancelled, Sample Site Cancelled, pH Cancelled, Bicarbonate Actual Cancelled, POC Total CO2 Cancelled, Base Excess Cancelled, O2 Saturation Cancelled, O2 % Cancelled, ABG pCO2 Cancelled, ABG pO2 Cancelled, Angelo Test Cancelled, Respiration Rate Cancelled, O2 Delivery Device Cancelled, Liter Flow Cancelled, Minute Volume Cancelled, Vent Mode Cancelled, Tidal Volume Cancelled, POC PEEP Cancelled, POC Pressure Suppt Cancelled, Pressure High Cancelled, Pressure Low Cancelled, Time High Cancelled, Time Low Cancelled, EPAP Cancelled, IPAP Cancelled, Blood Gas Notified Whom Cancelled, Blood Gas Notified Time Cancelled 03/30/18 09:15: Total Creatine Kinase 85, Triglycerides 204 H 03/30/18 10:20: Specimen Type ART, Sample Site L Radial, pH 7.25 L, Bicarbonate Actual 21.3 L, POC Total CO2 23, Base Excess -6 L, O2 Saturation 89 L, O2 % 50, ABG pCO2 48.5 H, ABG pO2 67 L, Angelo Test POS, Respiration Rate 16, O2 Delivery Device Vent, Minute Volume 8.00, Vent Mode A-C, Tidal Volume 500, POC PEEP 5, Blood Gas Notified Whom ICU , Blood Gas Notified Time 1020 03/30/18 12:41: POC Glucose 149 H 03/30/18 15:30: Troponin I 0.516 H 03/30/18 17:57: POC Glucose 131 H 03/30/18 18:05: Troponin I 0.553 H 03/30/18 21:05: Troponin I 0.578 H 03/30/18 23:42: POC Glucose 145 H 03/31/18 04:10: WBC 12.7 H, RBC 3.79 L, Hgb 11.1 L, Hct 34.6 L, MCV 91.3, MCH 29.3, MCHC 32.1, RDW 14.5, RDW Differential 46.9 H, Plt Count 222, MPV 10.3, Immature Gran % (Auto) 0.400, Neut % (Auto) 82.8 H, Lymph % (Auto) 9.3 L, [place] % (Auto) 7.3, Eos % (Auto) 0.1, Baso % (Auto) 0.1, Absolute Neuts (auto) 10.5 H, Absolute Lymphs (auto) 1.18, Total Counted Not Reportable 03/31/18 04:10: Sodium 141, Potassium 4.6, Chloride 109 H, Carbon Dioxide 22.0, Anion Gap 10, BUN 33 H, Creatinine 1.14 H, Estim Creat Clear Calc 36.36, Est GFR (MDRD) Af Amer 60, Est GFR (MDRD) Non-Af 50 L, BUN/Creatinine Ratio 28.9 H, Glucose 124 H, Calcium 7.9 L, Phosphorus 2.9, Magnesium 2.5 03/31/18 05:17: POC Glucose 154 H Current Medications Acetaminophen (Tylenol Liquid) 650 mg GT Q6H PRN PRN PRN Reason: FEVER Last Admin: 03/30/18 16:01 Dose: 650 mg Aspirin (Aspirin, Baby) 81 mg GT DAILY@0800 [facility] Last Admin: 03/30/18 12:44 Dose: 81 mg Chlorhexidine Gluconate () 15 ml PO BID [facility] Last Admin: 03/30/18 21:13 Dose: 15 ml Chlorhexidine Gluconate () 1 each TOPICAL DAILY [facility] Last Admin: 03/31/18 02:14 Dose: 1 each Clopidogrel Bisulfate (Plavix) 75 mg GT DAILY [facility] Last Admin: 03/30/18 12:44 Dose: 75 mg Enoxaparin Sodium (Lovenox) 40 mg SC DAILY@1000 [facility] Last Admin: 03/30/18 11:20 Dose: 40 mg Famotidine (Pepcid) 20 mg GT BID [facility] Last Admin: 03/30/18 21:14 Dose: 20 mg Levofloxacin (Levaquin Iv) 750 mg in 150 mls @ 100 mls/hr IV Q48 [facility] Sodium Chloride () 250 mls @ 15 mls/hr IV .[id number] PRN PRN Reason: SALINE FLUSH Sodium Chloride () 250 mls @ 15 mls/hr IV .[id number] PRN PRN Reason: SALINE FLUSH Enteral Nutritional Formula (Vital Af 1.2 Hakan Liquid) 1,000 mls @ 60 mls/hr GT .[id number] NAIF Last Admin: 03/31/18 05:08 Dose: Not Given Dexmedetomidine HCl 400 mcg/ (Sodium Chloride) 100 mls @ 9.09 mls/hr IV .Q11H1M NAIF Insulin Human Lispro (Humalog Kwikpen (Bkc)) 0 unit SC Q6 NAIF; Protocol Last Admin: 03/31/18 05:21 Dose: 1 units Levalbuterol HCl (Xopenex) 0.63 mg IH Q6HWA.RT NAIF Last Admin: 03/31/18 06:36 Dose: 0.63 mg Losartan Potassium (Cozaar) 50 mg GT DAILY NAIF Magnesium Hydroxide (Milk Of Magnesia) 30 ml PO DAILY PRN PRN PRN Reason: Constipation Metoprolol Tartrate (Lopressor (Beta Tata)) 25 mg GT BID NAIF Last Admin: 03/30/18 21:14 Dose: 25 mg Sodium Chloride () 5 - 15 ml IV UD PRN PRN Reason: SALINE FLUSH Last Admin: 03/31/18 05:26 Dose: 10 ml Medical Necessity - Tobacco Use Smoking Status: Current every day smoker Assessment/Plan All Active Problems (Last Reviewed 03/06/18 @ 06:35 by Deanna Coker) Acute respiratory failure with hypoxia and hypercapnia (Acute) COPD with acute exacerbation (Acute) Gram-negative pneumonia (Acute) Acute hypercapnic respiratory failure (Acute) NSTEMI (non-ST elevated myocardial infarction) (Acute) COPD exacerbation (Acute) Congestive heart failure (Acute) Patient is a 73-year-old lady with history of COPD who was brought in on account of progressive shortness of breath patient was intubated as a result of acute respiratory failure 1. Acute hypercapnic and hypoxic respiratory failure secondary to COPD exacerbation: Patient was intubated admitted to the intensive care unit where he is currently being managed. Patient currently remains on steroids bronchodilator treatment in addition to being placed on the vent. Vent management deferred to pulmonary/critical care 2. Acute on chronic diastolic congestive heart failure: Chest x-ray obtained on admission demonstrated interstitial pulmonary edema Lasix initiated patient's ejection fraction on echo obtained in December 2017 was 55%. 3. Elevated troponin due to non-STEMI type II given patient underlying history of CAD with PCI in November 2017 consultation was placed to cardiology 4. Peripheral vascular disease 5. Essential hypertension 6. Tobacco dependence counseled on cessation, offered nicotine patch for tobacco cravings 7. DVT prophylaxis: SC Lovenox Active Medications Acetaminophen (Tylenol Liquid) 650 mg GT Q6H PRN PRN PRN Reason: FEVER Last Admin: 03/30/18 16:01 Dose: 650 mg Aspirin (Aspirin, Baby) 81 mg GT DAILY@0800 [facility] Last Admin: 03/30/18 12:44 Dose: 81 mg Chlorhexidine Gluconate () 15 ml PO BID [facility] Last Admin: 03/30/18 21:13 Dose: 15 ml Chlorhexidine Gluconate () 1 each TOPICAL DAILY [facility] Last Admin: 03/31/18 02:14 Dose: 1 each Clopidogrel Bisulfate (Plavix) 75 mg GT DAILY [facility] Last Admin: 03/30/18 12:44 Dose: 75 mg Enoxaparin Sodium (Lovenox) 40 mg SC DAILY@1000 [facility] Last Admin: 03/30/18 11:20 Dose: 40 mg Famotidine (Pepcid) 20 mg GT BID [facility] Last Admin: 03/30/18 21:14 Dose: 20 mg Levofloxacin (Levaquin Iv) 750 mg in 150 mls @ 100 mls/hr IV Q48 [facility] Sodium Chloride () 250 mls @ 15 mls/hr IV .[id number] PRN PRN Reason: SALINE FLUSH Sodium Chloride () 250 mls @ 15 mls/hr IV .[id number] PRN PRN Reason: SALINE FLUSH Enteral Nutritional Formula (Vital Af 1.2 Hakan Liquid) 1,000 mls @ 60 mls/hr GT .[id number] [facility] Last Admin: 03/31/18 05:08 Dose: Not Given Dexmedetomidine HCl 400 mcg/ (Sodium Chloride) 100 mls @ 9.09 mls/hr IV .Q11H1M [facility] Insulin Human Lispro (Humalog Kwikpen (Bkc)) 0 unit SC Q6 [facility]; Protocol Last Admin: 03/31/18 05:21 Dose: 1 units Levalbuterol HCl (Xopenex) 0.63 mg IH Q6HWA.RT NAIF Last Admin: 03/31/18 06:36 Dose: 0.63 mg Losartan Potassium (Cozaar) 50 mg GT DAILY NAIF Magnesium Hydroxide (Milk Of Magnesia) 30 ml PO DAILY PRN PRN PRN Reason: Constipation Metoprolol Tartrate (Lopressor (Beta Tata)) 25 mg GT BID NAIF Last Admin: 03/30/18 21:14 Dose: 25 mg Sodium Chloride () 5 - 15 ml IV UD PRN PRN Reason: SALINE FLUSH Last Admin: 03/31/18 05:26 Dose: 10 ml Clinical Impression(s) from Imaging Studies Brain CT 03/30/18 04:57 IMPRESSION: 1. Negative for intracranial hemorrhage or acute intracranial disease. 2. Paranasal sinus disease and additional chronic changes, as above. Individualized dose optimization techniques were used for this CT. at 0701 Reported and signed by: Leonard Romeo MD Electronically Signed: Leonard Romeo, at 7:00 EST Tel , Service support , Chest X-Ray 03/30/18 05:06 IMPRESSION: 1. The endotracheal tube appears in good position and the NG tube tip lies at the GE junction. 2. Chronic lung disease with emphysema and interstitial fibrosis. Superimposed interstitial pulmonary edema is also suggested. at 0599 Reported and signed by: Leonard Romeo MD Electronically Signed: Leonard Romeo, at 5:51 EST Tel , Service support , Code Visit Inpatient E&M: 74804 Subs Hosp L3
--- NOTE | 2018-03-31 08:34 | ECHOCS_ITS ---
Reason For Study: CAD Procedure This was a 2D Doppler, Color Flow transthoracic echocardiogram. Technically difficult study- pt on ventilator. The study was technically difficult. Contrast injection was performed. Exam performed portable in ICU/CCU. Left Ventricle Normal LV size. Mild segmental systolic dysfunction (see wall motion). The estimated ejection fraction is 45 %. Unable to assess diastolic dysfunction. Basal inferoseptal: Hypokinetic. Mid- Anterior : Hypokinetic. Mid-Lateral : Hypokinetic. Mid-Posterior: Hypokinetic. Mid-Inferior: Hypokinetic. Mid-inferoseptal : Hypokinetic. Mid-anteroseptal : Hypokinetic. [place] : Hypokinetic. Right Ventricle Normal RV size. Normal systolic function. Atria Normal left atrium. Normal right atrium. No doppler evidence for ASD. Mitral Valve There is mild mitral annular calcification. Normal mitral valve. Trivial mitral valve insufficiency. Tricuspid Valve Normal tricuspid valve. Trivial tricuspid valve insufficiency. Right ventricular systolic pressure estimated to be 39 mmHg. Aortic Valve Trisinus/trileaflet aortic valve. Mild diffuse aortic valve thickening. Mild focal aortic valve calcification. Aortic sclerosis, no stenosis. Trivial aortic valve insufficiency. Pulmonic Valve The pulmonic valve is not well visualized. Great Vessels Normal sized aortic root. Pericardium/Pleural No pericardial effusion. Medication Diluted definity 4ml given slow IV push to enhance endocardial definition. MMode/2D Measurements & Calculations LVIDd: 4.3 cm IVSd: 0.87 cm Ao root diam: 3.0 cm LVIDs: 3.3 cm LVPWd: 0.74 cm FS: 23.5 % LAV(MOD-bp): 39.6 ml LVAd ap4: 25.8 cm2 SV(MOD-sp4): 31.5 ml LAV(MOD-bp) Indexed: 22.5 ml/m2 EDV(MOD-sp4): 76.2 ml LAV(MOD-sp2): 38.4 ml EDV(sp4-el): 78.9 ml LAV(MOD-sp4): 36.2 ml LVAs ap4: 19.2 cm2 ESV(MOD-sp4): 44.7 ml ESV(sp4-el): 47.1 ml EF(MOD-sp4): 41.3 % EF(sp4-el): 40.4 % SV(sp4-el): 31.8 ml LA A4 area: 15.7 cm2 LA dimension(2D): 3.4 cm RA A4 area: 12.2 cm2 Time Measurements MV dec time: 0.22 sec Doppler Measurements & Calculations MV E max mao: 66.1 cm/sec Ao V2 max: 111.0 cm/sec LV V1 max: 91.7 cm/sec MV A max mao: 92.2 cm/sec Ao max P.9 mmHg LV V1 max P.4 mmHg MV E/A: 0.72 PA V2 max: 89.2 cm/sec TR max mao: 299.2 cm/sec TR max P.9 mmHg Interpretation Summary The study was technically difficult. Contrast injection was performed. Mild segmental systolic dysfunction (see wall motion). The estimated ejection fraction is 45 %. There is mild mitral annular calcification. Trivial mitral valve insufficiency. Trivial tricuspid valve insufficiency. Aortic sclerosis, no stenosis. Trivial aortic valve insufficiency. Right ventricular systolic pressure estimated to be 39 mmHg. Unable to assess diastolic dysfunction. Based upon the 2D echocardiographic images obtained a Takotsubu Syndrome cannot necessarily be excluded. Ordering Physician: Gilberto Rodrigues Referring Physician: JODI BUTLER Performed By: Isabel Gardner, RDCS, RVT
--- NOTE | 2018-03-31 09:11 | PCM.CONS.C ---
Problem List (1) NSTEMI (non-ST elevated myocardial infarction) Status: Acute (2) CAD (coronary artery disease) Status: Chronic Qualifiers: Comment: Successful PTCA/SUSAN of the of mid/distal RCA with a 2.25 x 38 Promus Synergy, post dilated proximally with a 3.0 x 12 NC balloon at 8 safia (2.5mm); 75%-->0%, no dissection. Successful PTCA/SUSAN of the proximal RCA with a 2.5 x 20 Promus Synergy, post dilated with a 3.0 x 12 at 14 safia; 75%-->0%, no dissection. (3) Presence of stent in coronary artery Status: Chronic Comment: PTCA/SUSAN to ostium of LMT 10/01/2014 @[facility]; PTCA/SUSAN of the mid/distal RCA 11/11/17 (4) Hyperlipidemia Status: Chronic Qualifiers: (5) Hypertension Status: Chronic Qualifiers: (6) COPD exacerbation Status: Acute Reason for Consult Date of Consultation: 03/31/18 History of Present Illness: The patient is a 73 year old White female with a past Cardiovascular history of underlying CAD, status post left main PCI ([facility] -2014), status post RCA PCI ([facility] - 2018), hyperlipidemia, hypertension, and COPD who presents for evaluation of abnormal troponin I levels and an abnormal ECG during an underlying COPD exacerbation requiring mechanical intubation/ventilation. According to the patient and her family member is present she had been feeling more short of breath and dyspneic. She noticed ongoing cough. She denied any ongoing chest discomfort. She does not recall any palpitations nor does he recall any near syncope or syncope. She was brought to the hospital for further evaluation. She was found to be hypoxic. She subsequently required mechanical intubation and ventilation. She is presently in the ICU. During her evaluation she was noted to have indeterminate troponin I levels. Her ECG had demonstrated the appearance of underlying somatic/motion artifact. There was concern of possible paroxysmal atrial fibrillation. She had no other acute ECG changes. Her ECG was repeated. Upon repeating ECG she appeared to have evidence of underlying sinus rhythm with low voltage QRS in the limb leads and poor R-wave progression. A followup ECG subsequently demonstrated continued evidence of sinus rhythm with low voltage QRS in the limb leads and poor R-wave progression as well as T-wave changes/inversion in the anterolateral and inferior leads concerning for myocardial ischemia. At the present time the patient remains mechanically intubated and ventilated. She is awake and alert appears to respond to verbal stimuli. She denies any ongoing chest discomfort. [] Past Medical History Allergies/Adverse Reactions: Allergies codeine Allergy (Unknown, Verified 03/30/18 05:15) Unknown lithium Allergy (Unknown, Verified 03/30/18 05:15) Unknown morphine Allergy (Unknown, Verified 03/30/18 05:15) Unknown naproxen [From Naprosyn] Allergy (Unknown, Verified 03/30/18 05:15) Unknown phenobarbital Allergy (Unknown, Verified 03/30/18 05:15) Unknown Sulfa (Sulfonamide Antibiotics) Allergy (Unknown, Verified 03/30/18 05:15) Unknown albuterol Allergy (Verified 03/30/18 05:15) Rash fentanyl Adverse Reaction (Severe, Verified 03/30/18 05:15) Other OD on Fentany patch. Very sensitive to does 75mcg patch Iodine and Iodide Containing Produc Adverse Reaction (Verified 03/30/18 05:15) Unknown Penicillins [PCN] Adverse Reaction (Verified 03/30/18 05:15) Unknown Home Medications: Ambulatory Orders Medication Instructions Recorded Amlodipine [Norvasc] 5 mg PO DAILY 07/13/14 Atorvastatin Calcium [Lipitor] 80 mg PO QHS 07/13/14 Cyclobenzaprine [Flexeril] 10 mg PO DAILY 07/13/14 Fenofibrate [Tricor] 145 mg PO DAILY 07/13/14 Gabapentin [Neurontin] 600 mg PO TIDCM 07/13/14 Fluticasone/Vilanterol [Breo 1 ea IH DAILY 12/17/16 Ellipta 200-25 Mcg INH] Paroxetine HCl [Paxil] 40 mg PO DAILY 12/17/16 diphenhydramine 25 mg tablet 25 mg PO Q6H PRN 03/20/17 nitroglycerin 0.4 mg sublingual 0.4 mg SUBLINGUAL Q5M PRN #25 tab 03/25/17 tablet ranolazine ER 500 mg 500 mg PO BID #180 tab 03/25/17 tablet,extended release,12 hr losartan 50 mg tablet 50 mg PO DAILY #90 tab 10/17/17 clopidogrel 75 mg tablet 75 mg PO DAILY #90 tab 10/23/17 Cholecalciferol (Vitamin D3) 50,000 unit PO QWEEK 11/23/17 [Vitamin D3] Levalbuterol HCl 0.63 mg INHALATION 4X/DAY PRN 11/23/17 Pantoprazole Sodium [Protonix] 20 mg PO BID 11/23/17 buPROPion SR [Wellbutrin SR (150mg 150 mg PO DAILY 11/23/17 tablets)] tiotropium bromide 2.5 2 puff INHALATION QDAY #1 ea 12/10/17 mcg/actuation mist for inhalation isosorbide mononitrate ER 60 mg 90 mg PO DAILY tab 12/11/17 tablet,extended release 24 hr albuterol sulfate HFA 90 2 puff INHALATION Q6H PRN #18 g 01/29/18 mcg/actuation aerosol inhaler Aspirin [Aspirin, Baby] 81 mg PO DAILY@0800 03/30/18 Atrovent Hfa 2 puff IH 4X/DAY 03/30/18 Metoprolol Tartrate 25 mg PO BID 03/30/18 Past Medical History (Chronic Problems): Chronic Problems (Last Reviewed 03/06/18 @ 06:35 by Deanna Coker) Presence of stent in coronary artery (Chronic) PTCA/SUSAN to ostium of LMT 10/01/2014 @[facility]; PTCA/SUSAN of the mid/distal RCA 11/11/17 CAD (coronary artery disease) (Chronic) Successful PTCA/SUSAN of the of mid/distal RCA with a 2.25 x 38 Promus Synergy, post dilated proximally with a 3.0 x 12 NC balloon at 8 safia (2.5mm); 75%-->0%, no dissection. Successful PTCA/SUSAN of the proximal RCA with a 2.5 x 20 Promus Synergy, post dilated with a 3.0 x 12 at 14 safia; 75%-->0%, no dissection. Tobacco abuse (Chronic) Nonrheumatic tricuspid (valve) insufficiency (Chronic) Nonrheumatic mitral valve insufficiency (Chronic) Nicotine dependence, cigarettes, uncomplicated (Chronic) Hypertension (Chronic) Hyperlipidemia (Chronic) Atherosclerosis of [place] coronary artery of [place] heart without angina pectoris (Chronic) PTCA/SUSAN to ostium of LMT 10/01/2014 @[facility]; PTCA/SUSAN to mid/distal RCA and proximal RCA in November 2017 at [facility]; Peripheral vascular disease (Chronic) SOB (shortness of breath) (Chronic) Surgical History: appendectomy, - - cad with stent Psychiatric History: No pertinent psych hx 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: No pertinent WOOD GOUGER history - *Family History Maternal Family History: Family History (Last Reviewed 03/06/18 @ 06:35 by Deanna Coker) Mother CAD (coronary artery disease) Hypertension Sister CAD (coronary artery disease) Myocardial infarction History Items: Diabetes, Heart Disease, Stroke Paternal Family History: Family History (Last Reviewed 03/06/18 @ 06:35 by Deanna Coker) Mother CAD (coronary artery disease) Hypertension Sister CAD (coronary artery disease) Myocardial infarction History Items: Diabetes, Stroke Smoking Status: Current every day smoker Review of Systems - Review of Systems General: Denies: Fever, Night Sweats, Fatigue Cardiovascular: Reports: Shortness of Breath. Denies: Chest Discomfort, Orthopnea, PND, Peripheral Edema, Palpitations, Lightheadedness, Dizziness, Near Syncope, Syncope Respiratory: Reports: Cough, Shortness of Breath. Denies: Sputum Production, Hemoptysis Gastrointestinal: Denies: Hematemesis, Hematochezia, Melena Genitourinary: Denies: Dysuria, Hematuria Skin: Denies: Rash Subjectve: This is a 73-year-old white female who appears to be mechanical intubated and ventilated but responding to verbal stimuli. Objective: Vital Signs Temp Pulse Resp BP Pulse Ox 99.6 F H 87 17 110/74 94 03/31/18 08:00 03/31/18 08:00 03/31/18 08:00 03/31/18 08:00 03/31/18 08:00 Oxygen Delivery Method Mechanical Ventilator Weight: 160 lb 4.417 oz Body Mass Index (BMI) 28.2 Intake and Output for Last 24 Hours 03/29/18 03/30/18 03/31/18 23:59 23:59 23:59 Intake Total 1162.7 / 1162.7 455.1 / 455.1 Output Total 675 / 675 200 / 200 Balance 487.7 / 487.7 255.1 / 255.1 General: Awake, Alert, Oriented x 3, Cooperative HEENT: Atraumatic, Normocephalic, PERRL Oral: Moist Mucosa Neck: Good ROM, No JVD Lungs: Rhonchi Cardiovascular: Regular Rhythm, Normal S1, Normal S2 Abdomen: Bowel Sounds Present, Soft, Non Tender Extremities: No edema Psych/Mental Status: Appropriate 03/30/18 08:13: pH Cancelled, Bicarbonate Actual Cancelled, POC Total CO2 Cancelled, Base Excess Cancelled, O2 Saturation Cancelled, ABG pCO2 Cancelled, ABG pO2 Cancelled, Angelo Test Cancelled 03/30/18 09:15: Triglycerides 204 H 03/30/18 10:20: pH 7.25 L, Bicarbonate Actual 21.3 L, POC Total CO2 23, Base Excess -6 L, O2 Saturation 89 L, ABG pCO2 48.5 H, ABG pO2 67 L, Angelo Test POS 03/30/18 15:30: Troponin I 0.516 H 03/30/18 18:05: Troponin I 0.553 H 03/30/18 21:05: Troponin I 0.578 H 03/31/18 04:10: WBC 12.7 H, RBC 3.79 L, Hgb 11.1 L, Hct 34.6 L, MCV 91.3, MCH 29.3, MCHC 32.1, RDW 14.5, RDW Differential 46.9 H, Plt Count 222, MPV 10.3, Immature Gran % (Auto) 0.400, Neut % (Auto) 82.8 H, Lymph % (Auto) 9.3 L, Griggs % (Auto) 7.3, Eos % (Auto) 0.1, Baso % (Auto) 0.1, Absolute Neuts (auto) 10.5 H, Total Counted Not Reportable 03/31/18 04:10: Sodium 141, Potassium 4.6, Chloride 109 H, Carbon Dioxide 22.0, Anion Gap 10, BUN 33 H, Creatinine 1.14 H, Est GFR (MDRD) Af Amer 60, Est GFR (MDRD) Non-Af 50 L, BUN/Creatinine Ratio 28.9 H, Glucose 124 H, Calcium 7.9 L, Phosphorus 2.9, Magnesium 2.5 Rhythm:Sinus rhythm EKG:As noted above ECHO:Transthoracic echocardiogram: 12/17/2017 Interpretation Summary The study was technically difficult. Left ventricular systolic function is normal. The estimated ejection fraction is 55 %. The left atrium is mildly enlarged. There is moderate mitral annular calcification. Extension of the mitral annular calcification onto the posterior mitral valve leaflet. Mild (1+) mitral valve insufficiency. Trivial tricuspid valve insufficiency. Mild focal aortic valve thickening. Trivial aortic valve insufficiency. Right ventricular systolic pressure estimated to be 33 mmHg. Diastolic function is indeterminate. Stress Test:07/06/2014 IMPRESSION: 1. Rest and stress SPECT Cardiolite nuclear imaging demonstrate myocardial perfusion changes potentially compatible with the effects of shifting soft tissue attenuation/artifact being more prominent following stress as opposed to rest although an area of myocardial ischemia involving portions of the distal inferior and inferior apical segments cannot necessarily be excluded. 2. The gated Cardiolite study reports an LVEF of 71%. Cardiac Cath:07/14/2014 Final impression: 1. Borderline elevation of left ventricular and diastolic pressure 2, Left ventricle: A. Normal left trigger size, wall motion, and systolic function B. Estimated LVEF of 60% 3. Left main coronary artery: A. Proximal 50-75% eccentric appearing stenosis B. No significant change status post 250 pg of intracoronary nitroglycerin C. Decreased arterial waveform and pressure damping upon catheter engagement pre-and post intracoronary nitroglycerin 4. Left anterior descending coronary artery: A. Proximal diffuse 10-25% eccentric appearing stenosis B. Proximal portion of the 1st diagonal branch demonstrating 85% irregular eccentric appearing stenosis 5. Left circumflex coronary artery: A. Proximal 25% diffuse stenosis B. 1st OM with a proximal 85% appearing stenosis 6. Right coronary artery: A. Large dominant vessel B. Mid 25-50% eccentric appearing stenosis C. Distal 75% eccentric appearing stenosis D. Ostial/proximal right PDA with 85% appearing stenosis E. Right posterior lateral system with 25_50% appearing stenosis 7. Mitral valve: A. Trace mitral valve regurgitation-catheter/PVC induced PCI: [facility]: 10/01/2014 PROCEDURAL OUTCOME 1 Vessel Successful PCI CURRICULUM DESIGNER Status: Post Procedure Disposition: Overnight Observation PCI Summary: PROCEDURAL SUMMARY: Successful PCI to the LMT with a 4.0 x 8 mm Promus Premier EES [facility]: 11/11/2017 CORONARY ANGIOGRAPHY DOMINANCE: Co- Dominant LEFT HEART ASSESSMENT Left Ventricular Ejection Fraction: by LV gram 45-50 % LEFT MAIN: Previously placed stent is patent LEFT ANTERIOR DECENDING ARTERY: PROX LAD: Mild luminal irregularities less than 30% CIRCUMFLEX ARTERY: Mild luminal irregularities less than 30% OM 1: Ostial - 60 % Stenosis RIGHT CORONARY ARTERY: MID RCA: 70 % Stenosis DISTAL RCA: 75 % Stenosis RT PDA: Proximal - Mild luminal irregularities less than 30% INTERVENTION INFORMATION LESION SITE: RCA (Mid) Lesion Complexity: High/C, lesion at bifurcation: No, thrombus present: No, lesion length: 38 mm, culprit lesion: Yes Pre Stenosis: 75 % Pre intervention JYOTI flow: 3 PROCEDURE: Drug Eluting Stent with pre and post dilatation Post Stenosis: 0 % Post intervention JYOTI flow: 3 LESION SITE: RCA (Proximal) Lesion Complexity: High/C, lesion at bifurcation: No, thrombus present: No, lesion length: 20 mm, culprit lesion: No Pre Stenosis: 75 % Pre intervention JYOTI flow: 3 PROCEDURE: Drug Eluting Stent with pre and post dilatation Post Stenosis: 0 % Post intervention JYOTI flow: 3 CXR:Findings compatible with COPD, interstitial pulmonary fibrosis, cannot exclude increased pulmonary vascularity; please see official report Assessment/Plan 1. Non ST segment elevation NV The patient presents with an underlying COPD exacerbation requiring mechanical intubation/ventilation. During this time she has been noted to have indeterminate troponin levels and abnormal ECG changes with dynamic T-wave changes. It is unclear whether this represents a primary acute coronary syndrome event or whether this may represent a T-type to supply demand mismatch secondary the patient's recent hypoxia related to her underlying COPD exacerbation, etc. At the present time she is being followed. She will continue to be monitored. Her ECG can be followed. An echocardiogram will be requested to reassess her left ventricular wall motion and systolic function. In the interim she will continue medical management. She may need to be considered for a repeat diagnostic cardiac catheterization once she is improved with respect to her underlying respiratory status. 2. CAD status post PCI (left main and RCA) At the present time she has not complained of ongoing symptoms of chest discomfort. Her main concern has been her respiratory status. She has been found to have the aforementioned concerns. She will continue to be monitored, continue medical therapy, and continue future evaluation which may include repeat diagnostic cardiac catheterization when she is able. 3. Hyperlipidemia She will continue medical management. 4. Hypertension Her blood pressures will be followed. She will continue medical therapy. 5. COPD exacerbation Again she will continue her medical management at this time. Hopefully she will be able to be extubated in the near future. Of note the patient did have an ECG which raise concern as to whether or not he truly had atrial fibrillation. This was an ECG was significant somatic/motion artifact. Her followup ECG demonstrated sinus rhythm. At the present time her cardiac rate and rhythm will be monitored for any obvious significant changes. If she does demonstrate evidence of true atrial dysrhythmias then she will need further evaluation care is deemed appropriate. This note was generated using a voice recognition system and there may be incorrect words, spelling or punctuation that were not noted when reviewing the office note prior to saving.
--- NOTE | 2018-03-31 09:21 | CON.PCM_ITS ---
Problem List (1) NSTEMI (non-ST elevated myocardial infarction) Status: Acute (2) CAD (coronary artery disease) Status: Chronic Qualifiers: Comment: Successful PTCA/SUSAN of the of mid/distal RCA with a 2.25 x 38 Promus Synergy, post dilated proximally with a 3.0 x 12 NC balloon at 8 safia (2.5mm); 75%-->0%, no dissection. Successful PTCA/SUSAN of the proximal RCA with a 2.5 x 20 Promus Synergy, post dilated with a 3.0 x 12 at 14 safia; 75%-->0%, no dissection. (3) Presence of stent in coronary artery Status: Chronic Comment: PTCA/SUSAN to ostium of LMT 10/01/2014 @[facility]; PTCA/SUSAN of the mid/distal RCA 11/11/17 (4) Hyperlipidemia Status: Chronic Qualifiers: (5) Hypertension Status: Chronic Qualifiers: (6) COPD exacerbation Status: Acute Reason for Consult Date of Consultation: 03/31/18 History of Present Illness: The patient is a 73 year old White female with a past Cardiovascular history of underlying CAD, status post left main PCI ([facility] -2014), status post RCA PCI ([facility] - 2018), hyperlipidemia, hypertension, and COPD who presents for evaluation of abnormal troponin I levels and an abnormal ECG during an underlying COPD exacerbation requiring mechanical intubation/ventilation. According to the patient and her family member is present she had been feeling more short of breath and dyspneic. She noticed ongoing cough. She denied any ongoing chest d iscomfort. She does not recall any palpitations nor does he recall any near syncope or syncope. She was brought to the hospital for further evaluation. She was found to be hypoxic. She subsequently required mechanical intubation and ventilation. She is presently in the ICU. During her evaluation she was noted to have indeterminate troponin I levels. Her ECG had demonstrated the appearance of underlying somatic/motion artifact. There was concern of possible paroxysmal atrial fibrillation. She had no other acute ECG changes. Her ECG was repeated. Upon repeating ECG she appeared to have evidence of underlying sinus rhythm with low voltage QRS in the limb leads and poor R-wave progression. A followup ECG subsequently demonstrated continued evidence of sinus rhythm with low voltage QRS in the limb leads and poor R-wave progression as well as T-wave changes/inversion in the anterolateral and inferior leads concerning for myocardial ischemia. At the present time the patient remains mechanically intubated and ventilated. She is awake and alert appears to respond to verbal stimuli. She denies any ongoing chest discomfort. [] Past Medical History Allergies/Adverse Reactions: Allergies codeine Allergy (Unknown, Verified 03/30/18 05:15) Unknown lithium Allergy (Unknown, Verified 03/30/18 05:15) Unknown morphine Allergy (Unknown, Verified 03/30/18 05:15) Unknown naproxen [From Naprosyn] Allergy (Unknown, Verified 03/30/18 05:15) Unknown phenobarbital Allergy (Unknown, Verified 03/30/18 05:15) Unknown Sulfa (Sulfonamide Antibiotics) Allergy (Unknown, Verified 03/30/18 05:15) Unknown albuterol Allergy (Verified 03/30/18 05:15) Rash fentanyl Adverse Reaction (Severe, Verified 03/30/18 05:15) Other OD on Fentany patch. Very sensitive to does 75mcg patch Iodine and Iodide Containing Produc Adverse Reaction (Verified 03/30/18 05:15) Unknown Penicillins [PCN] Adverse Reaction (Verified 03/30/18 05:15) Unknown Home Medications: Ambulatory Orders Medication Instructions Recorded Amlodipine [Norvasc] 5 mg PO DAILY 07/13/14 Atorvastatin Calcium [Lipitor] 80 mg PO QHS 07/13/14 Cyclobenzaprine [Flexeril] 10 mg PO DAILY 07/13/14 Fenofibrate [Tricor] 145 mg PO DAILY 07/13/14 Gabapentin [Neurontin] 600 mg PO TIDCM 07/13/14 Fluticasone/Vilanterol [Breo 1 ea IH DAILY 12/17/16 Ellipta 200-25 Mcg INH] Paroxetine HCl [Paxil] 40 mg PO DAILY 12/17/16 diphenhydramine 25 mg tablet 25 mg PO Q6H PRN 03/20/17 nitroglycerin 0.4 mg sublingual 0.4 mg SUBLINGUAL Q5M PRN #25 tab 03/25/17 tablet ranolazine ER 500 mg 500 mg PO BID #180 tab 03/25/17 tablet,extended release,12 hr losartan 50 mg tablet 50 mg PO DAILY #90 tab 10/17/17 clopidogrel 75 mg tablet 75 mg PO DAILY #90 tab 10/23/17 Cholecalciferol (Vitamin D3) 50,000 unit PO QWEEK 11/23/17 [Vitamin D3] Levalbuterol HCl 0.63 mg INHALATION 4X/DAY PRN 11/23/17 Pantoprazole Sodium [Protonix] 20 mg PO BID 11/23/17 buPROPion SR [Wellbutrin SR (150mg 150 mg PO DAILY 11/23/17 tablets)] tiotropium bromide 2.5 2 puff INHALATION QDAY #1 ea 12/10/17 mcg/actuation mist for inhalation isosorbide mononitrate ER 60 mg 90 mg PO DAILY tab 12/11/17 tablet,extended release 24 hr albuterol sulfate HFA 90 2 puff INHALATION Q6H PRN #18 g 01/29/18 mcg/actuation aerosol inhaler Aspirin [Aspirin, Baby] 81 mg PO DAILY@0800 03/30/18 Atrovent Hfa 2 puff IH 4X/DAY 03/30/18 Metoprolol Tartrate 25 mg PO BID 03/30/18 Past Medical History (Chronic Problems): Chronic Problems (Last Reviewed 03/06/18 @ 06:35 by Deanna Coker) Presence of stent in coronary artery (Chronic) PTCA/SUSAN to ostium of LMT 10/01/2014 @[facility]; PTCA/SUSAN of the mid/distal RCA 11/11/17 CAD (coronary artery disease) (Chronic) Successful PTCA/SUSAN of the of mid/distal RCA with a 2.25 x 38 Promus Synergy, post dilated proximally with a 3.0 x 12 NC balloon at 8 safia (2.5mm); 75%-->0%, no dissection. Successful PTCA/SUSAN of the proximal RCA with a 2.5 x 20 Promus Synergy, post dilated with a 3.0 x 12 at 14 safia; 75%-->0%, no dissection. Tobacco abuse (Chronic) Nonrheumatic tricuspid (valve) insufficiency (Chronic) Nonrheumatic mitral valve insufficiency (Chronic) Nicotine dependence, cigarettes, uncomplicated (Chronic) Hypertension (Chronic) Hyperlipidemia (Chronic) Atherosclerosis of [place] coronary artery of [place] heart without angina pectoris (Chronic) PTCA/SUSAN to ostium of LMT 10/01/2014 @[facility]; PTCA/SUSAN to mid/distal RCA and proximal RCA in November 2017 at [facility]; Peripheral vascular disease (Chronic) SOB (shortness of breath) (Chronic) Surgical History: appendectomy, - - cad with stent Psychiatric History: No pertinent psych hx [employer] 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 - *Family History Maternal Family History: Family History (Last Reviewed 03/06/18 @ 06:35 by Deanna Coker) Mother CAD (coronary artery disease) Hypertension Sister CAD (coronary artery disease) Myocardial infarction History Items: Diabetes, Heart Disease, Stroke Paternal Family History: Family History (Last Reviewed 03/06/18 @ 06:35 by Deanna Coker) Mother CAD (coronary artery disease) Hypertension Sister CAD (coronary artery disease) Myocardial infarction History Items: Diabetes, Stroke Smoking Status: Current every day smoker Review of Systems - Review of Systems General: Denies: Fever, Night Sweats, Fatigue Cardiovascular: Reports: Shortness of Breath. Denies: Chest Discomfort, Orthopnea, PND, Peripheral Edema, Palpitations, Lightheadedness, Dizziness, Near Syncope, Syncope Respiratory: Reports: Cough, Shortness of Breath. Denies: Sputum Production, Hemoptysis Gastrointestinal: Denies: Hematemesis, Hematochezia, Melena Genitourinary: Denies: Dysuria, Hematuria Skin: Denies: Rash Subjectve: This is a 73-year-old white female who appears to be mechanical intubated and ventilated but responding to verbal stimuli. Objective: Vital Signs Temp Pulse Resp BP Pulse Ox 99.6 F H 87 17 110/74 94 03/31/18 08:00 03/31/18 08:00 03/31/18 08:00 03/31/18 08:00 03/31/18 08:00 Oxygen Delivery Method Mechanical Ventilator Weight: 160 lb 4.417 oz Body Mass Index (BMI) 28.2 Intake and Output for Last 24 Hours 03/29/18 03/30/18 03/31/18 23:59 23:59 23:59 Intake Total 1162.7 / 1162.7 455.1 / 455.1 Output Total 675 / 675 200 / 200 Balance 487.7 / 487.7 255.1 / 255.1 General: Awake, Alert, Oriented x 3, Cooperative HEENT: Atraumatic, Normocephalic, PERRL Oral: Moist Mucosa Neck: Good ROM, No JVD Lungs: Rhonchi Cardiovascular: Regular Rhythm, Normal S1, Normal S2 Abdomen: Bowel Sounds Present, Soft, Non Tender Extremities: No edema Psych/Mental Status: Appropriate 03/30/18 08:13: pH Cancelled, Bicarbonate Actual Cancelled, POC Total CO2 Cancelled, Base Excess Cancelled, O2 Saturation Cancelled, ABG pCO2 Cancelled, ABG pO2 Cancelled, Angelo Test Cancelled 03/30/18 09:15: Triglycerides 204 H 03/30/18 10:20: pH 7.25 L, Bicarbonate Actual 21.3 L, POC Total CO2 23, Base Excess -6 L, O2 Saturation 89 L, ABG pCO2 48.5 H, ABG pO2 67 L, Angelo Test POS 03/30/18 15:30: Troponin I 0.516 H 03/30/18 18:05: Troponin I 0.553 H 03/30/18 21:05: Troponin I 0.578 H 03/31/18 04:10: WBC 12.7 H, RBC 3.79 L, Hgb 11.1 L, Hct 34.6 L, MCV 91.3, MCH 29.3, MCHC 32.1, RDW 14.5, RDW Differential 46.9 H, Plt Count 222, MPV 10.3, Immature Gran % (Auto) 0.400, Neut % (Auto) 82.8 H, Lymph % (Auto) 9.3 L, [place] % (Auto) 7.3, Eos % (Auto) 0.1, Baso % (Auto) 0.1, Absolute Neuts (auto) 10.5 H, Total Counted Not Reportable 03/31/18 04:10: Sodium 141, Potassium 4.6, Chloride 109 H, Carbon Dioxide 22.0, Anion Gap 10, BUN 33 H, Creatinine 1.14 H, Est GFR (MDRD) Af Amer 60, Est GFR (MDRD) Non-Af 50 L, BUN/Creatinine Ratio 28.9 H, Glucose 124 H, Calcium 7.9 L, Phosphorus 2.9, Magnesium 2.5 Rhythm:Sinus rhythm EKG:As noted above ECHO:Transthoracic echocardiogram: 12/17/2017 Interpretation Summary The study was technically difficult. Left ventricular systolic function is normal. The estimated ejection fraction is 55 %. The left atrium is mildly enlarged. There is moderate mitral annular calcification. Extension of the mitral annular calcification onto the posterior mitral valve leaflet. Mild (1+) mitral valve insufficiency. Trivial tricuspid valve insufficiency. Mild focal aortic valve thickening. Trivial aortic valve insufficiency. Right ventricular systolic pressure estimated to be 33 mmHg. Diastolic function is indeterminate. Stress Test:07/06/2014 IMPRESSION: 1. Rest and stress SPECT Cardiolite nuclear imaging demonstrate myocardial perfusion changes potentially compatible with the effects of shifting soft tissue attenuation/artifact being more prominent following stress as opposed to rest although an area of myocardial ischemia involving portions of the distal inferior and inferior apical segments cannot necessarily be excluded. 2. The gated Cardiolite study reports an LVEF of 71%. Cardiac Cath:07/14/2014 Final impression: 1. Borderline elevation of left ventricular and diastolic pressure 2, Left ventricle: A. Normal left trigger size, wall motion, and systolic function B. Estimated LVEF of 60% 3. Left main coronary artery: A. Proximal 50-75% eccentric appearing stenosis B. No significant change status post 250 pg of intracoronary nitroglycerin C. Decreased arterial waveform and pressure damping upon catheter engagement pre-and post intracoronary nitroglycerin 4. Left anterior descending coronary artery: A. Proximal diffuse 10-25% eccentric appearing stenosis B. Proximal portion of the 1st diagonal branch demonstrating 85% irregular eccentric appearing stenosis 5. Left circumflex coronary artery: A. Proximal 25% diffuse stenosis B. 1st OM with a proximal 85% appearing stenosis 6. Right coronary artery: A. Large dominant vessel B. Mid 25-50% eccentric appearing stenosis C. Distal 75% eccentric appearing stenosis D. Ostial/proximal right PDA with 85% appearing stenosis E. Right posterior lateral system with 25_50% appearing stenosis 7. Mitral valve: A. Trace mitral valve regurgitation-catheter/PVC induced PCI: [facility]: 10/01/2014 PROCEDURAL OUTCOME 1 Vessel Successful PCI [employer] Status: Post Procedure Disposition: Overnight Observation PCI Summary: PROCEDURAL SUMMARY: Successful PCI to the LMT with a 4.0 x 8 mm Promus Premier EES WC: 11/11/2017 CORONARY ANGIOGRAPHY DOMINANCE: Co- Dominant LEFT HEART ASSESSMENT Left Ventricular Ejection Fraction: by LV gram 45-50 % LEFT MAIN: Previously placed stent is patent LEFT ANTERIOR DECENDING ARTERY: PROX LAD: Mild luminal irregularities less than 30% CIRCUMFLEX ARTERY: Mild luminal irregularities less than 30% OM 1: Ostial - 60 % Stenosis RIGHT CORONARY ARTERY: MID RCA: 70 % Stenosis DISTAL RCA: 75 % Stenosis RT PDA: Proximal - Mild luminal irregularities less than 30% INTERVENTION INFORMATION LESION SITE: RCA (Mid) Lesion Complexity: High/C, lesion at bifurcation: No, thrombus present: No, lesion length: 38 mm, culprit lesion: Yes Pre Stenosis: 75 % Pre intervention JYOTI flow: 3 PROCEDURE: Drug Eluting Stent with pre and post dilatation Post Stenosis: 0 % Post intervention JYOTI flow: 3 LESION SITE: RCA (Proximal) Lesion Complexity: High/C, lesion at bifurcation: No, thrombus present: No, lesion length: 20 mm, culprit lesion: No Pre Stenosis: 75 % Pre intervention JYOTI flow: 3 PROCEDURE: Drug Eluting Stent with pre and post dilatation Post Stenosis: 0 % Post intervention JYOTI flow: 3 CXR:Findings compatible with COPD, interstitial pulmonary fibrosis, cannot exclude increased pulmonary vascularity; please see official report Assessment/Plan 1. Non ST segment elevation IA The patient presents with an underlying COPD exacerbation requiring mechanical intubation/ventilation. During this time she has been noted to have indeterminate troponin levels and abnormal ECG changes with dynamic T-wave changes. It is unclear whether this represents a primary acute coronary syndrome event or whether this may represent a T-type to supply demand mismatch secondary the patient's recent hypoxia related to her underlying COPD exacerbation, etc. At the present time she is being followed. She will continue to be monitored. Her ECG can be followed. An echocardiogram will be requested to reassess her left ventricular wall motion and systolic function. In the interim she will continue medical management. She may need to be considered for a repeat diagnostic cardiac catheterization once she is improved with respect to her underlying respiratory status. 2. CAD status post PCI (left main and RCA) At the present time she has not complained of ongoing symptoms of chest discomfort. Her main concern has been her respiratory status. She has been found to have the aforementioned concerns. She will continue to be monitored, continue medical therapy, and continue future evaluation which may include repeat diagnostic cardiac catheterization when she is able. 3. Hyperlipidemia She will continue medical management. 4. Hypertension Her blood pressures will be followed. She will continue medical therapy. 5. COPD exacerbation Again she will continue her medical management at this time. Hopefully she will be able to be extubated in the near future. Of note the patient did have an ECG which raise concern as to whether or not he truly had atrial fibrillation. This was an ECG was significant somatic/motion artifact. Her followup ECG demonstrated sinus rhythm. At the present time her cardiac rate and rhythm will be monitored for any obvious significant changes. If she does demonstrate evidence of true atrial dysrhythmias then she will need further evaluation care is deemed appropriate. This note was generated using a voice recognition system and there may be incorrect words, spelling or punctuation that were not noted when reviewing the office note prior to saving.
[2018-03-31] MEDS: Enoxaparin 40 MG/0.4 ML Syringe SC (09:56)
[2018-03-31] MEDS: Clopidogrel Bisulfate 75 MG Tablet GT (09:56)
[2018-03-31] MEDS: Lactated Ringers 1,000 ML 999 ML IV ×2 (09:56→11:14)
[2018-03-31] MEDS: Famotidine 20 MG Tablet GT ×2 (09:56→21:50)
[2018-03-31] MEDS: Aspirin 81 MG TAB.CHEW GT (09:56)
[2018-03-31] MEDS: Chlorhexidine 15 ML PO ×2 (09:58→21:50)
[2018-03-31 11:40] LABS: Bedside Glucose 143 mg/dL (70-110)
[2018-03-31 12:00] LABS: M R Staph aureus DNA By PCR Negative (Negative); Probe Check PASS; Specimen Processing Control PASS
[2018-03-31] MEDS: Budesonide Respules 0.5 MG/2 ML AMPUL.NEB. INHALATION ×2 (12:57→19:33)
[2018-03-31] MEDS: Piperacil/Tazobactam 3.375 GM/50 ML ML IV ×2 (14:51→22:05)
[2018-03-31] MEDS: Vital AF 1.2 Cal Liquid 1,000 ML 60 ML GT (14:58)
[2018-03-31] MEDS: Acetaminophen 650 MG/20 ML UDC GT (17:34)
[2018-03-31 17:40] LABS: Bedside Glucose 296 mg/dL (70-110)
--- NOTE | 2018-03-31 20:39 | PCM.RX.CS ---
Consult Pharmacy has been consulted to manage selected antiobiotic: Vancomycin Type of Consult: New start Suspected Infection: Pneumonia Labs: Sodium 141 mmol/L (136-145) 03/31/18 04:10 Potassium 4.6 mmol/L (3.5-5.1) 03/31/18 04:10 Chloride 109 mmol/L (98-107) H 03/31/18 04:10 Carbon Dioxide 22.0 mmol/L (21.0-32.0) 03/31/18 04:10 Anion Gap 10 (5-15) 03/31/18 04:10 BUN 33 mg/dL (7-18) H 03/31/18 04:10 Creatinine 1.14 mg/dL (0.55-1.02) H 03/31/18 04:10 Est GFR (MDRD) Af Amer 60 mL/min (>60) 03/31/18 04:10 Est GFR (MDRD) Non-Af 50 mL/min (>60) L 03/31/18 04:10 BUN/Creatinine Ratio 28.9 RATIO (10-20) H 03/31/18 04:10 Glucose 124 mg/dL (74-106) H 03/31/18 04:10 Microbiology: Microbiology 03/31/18 11:15 Mucosa - Nose Respiratory Panel (PCR) - Final 03/31/18 12:30 Sputum, Induced/Lukens Gram Stain - Final 03/30/18 08:50 Sputum, Induced/Lukens Gram Stain - Final 03/30/18 08:50 Sputum, Induced/Lukens Respiratory Culture - Preliminary Appears to be normal respiratory damien. Further studies to follow. 03/30/18 08:50 Mucosa - Nasopharyngeal Respiratory Panel (PCR) - Final Weight used for dosin lb 4.417 oz Estimated Creatinine Clearance: 36.3 Goal Trough: 10-15 mcg/mL Pharmacy Plan for Drug Dosing: Pharmacy Service will continue to monitor and adjust dosing as required. 1000 MG loading dose followed by 750 mg q24h to maintain a goal trough of 10-15 Trough will be obtained prior to 3rd dose Follow-Up Labs: Trough Vancomycin
[2018-03-31] MEDS: Vancomycin IV 1,000 MG/200 ML BAG 200 MG IV (20:52)
--- NOTE | 2018-03-31 21:35 | NURSING ---
Attempted multiple sticks by several RN's for a 3rd IV without success.
[2018-03-31] MEDS: Atorvastatin Calcium 80 MG Tablet PO (21:50)
[2018-03-31 23:51] LABS: Bedside Glucose 144 mg/dL (70-110)
[2018-04-01] VITALS (68 sets, daily range): BP systolic 74–180; BP diastolic 48–119; PULSE 48–149; RESP 16–36; TEMP 36.4–38.4; O2SAT 87–100
[2018-04-01] MEDS: CHLORHEXIDINE GLUC 2% CLOTH 1 EACH TOWELETTE TOPICAL (03:12)
[2018-04-01 03:51] LABS: Hematocrit 42.6 % (37-47); Hemoglobin 13.5 g/dl (12.0-15.0); Mean Corp Hgb Conc 31.7 g/gl (32-36); Mean Corpuscular Hgb 28.5 pg (27.0-32.0); Mean Corpuscular Volume 89.9 fL (81-99); Mean Platelet Vol. 10.6 fl (6.2-12.0); Platelet Count 263 K/mm3 (150-450); RBC Distribution Width CV 14.6 % (11.6-14.6); RBC Distribution Width SD 47.1 fl (35.1-43.9); Red Blood Count 4.74 M/mm3 (4.2-5.4); White Blood Count 18.5 K/mm3 (4.4-11.0)
[2018-04-01 03:54] LABS: Scan Indicated on CBC? Y/N NO
[2018-04-01 04:06] LABS: Anion Gap 11 (5-15); BUN 33 mg/dL (7-18); BUN/Creat Ratio 30.6 RATIO (10-20); Calcium,Total 7.8 mg/dL (8.5-10.1); Chloride 107 mmol/L (98-107); Creatinine, Serum 1.08 mg/dL (0.55-1.02); EST Glomerular Filtration Rate 53 mL/min (>60); Est Glom Filt Rate - Afr Amer 64 mL/min (>60); Estimated Creatinine Clearance 38.38 ml/min; Glucose 141 mg/dL (74-106); Magnesium 2.2 mg/dL (1.6-2.6); Potassium 4.3 mmol/L (3.5-5.1); Sodium Level 135 mmol/L (136-145)
[2018-04-01] MEDS: Acetaminophen 650 MG/20 ML UDC GT ×2 (05:04→23:40)
[2018-04-01] MEDS: Insulin Lispro 100 UNIT/ML INSULN.PEN SC ×4 (05:33→23:39)
[2018-04-01] MEDS: Piperacil/Tazobactam 3.375 GM/50 ML ML IV ×3 (05:36→22:02)
[2018-04-01 05:40] LABS: Bedside Glucose 168 mg/dL (70-110)
--- NOTE | 2018-04-01 05:55 | EKG12_ITS ---
Test Reason : Blood Pressure : / mmHG Vent. Rate : 066 BPM Atrial Rate : 066 BPM P-R Int : 136 ms QRS Dur : 088 ms QT Int : 572 ms P-R-T Axes : 041 049 236 degrees QTc Int : 599 ms Normal sinus rhythm with sinus arrhythmia ST & Marked T wave abnormality, consider anterolateral ischemia ST & marked T wave abnormality, consider inferior ischemia Prolonged QT Abnormal ECG Confirmed by PILAR IVEY, BETINA ([id number]), offline editor MACKENZIE TORRES ([id number] on 04/03/2018 8:38:02 AM Referred By: COLT Confirmed By:BETINA QUEZADA MD
[2018-04-01] MEDS: LEVALBUTEROL HCL 0.63 MG/3 ML VIAL.NEB IH ×3 (06:33→18:45)
[2018-04-01] MEDS: Budesonide Respules 0.5 MG/2 ML AMPUL.NEB. INHALATION (06:33)
--- NOTE | 2018-04-01 06:45 | PCM.PN.INT ---
Subjective: The patient was seen and examined at the bedside this morning. Events from the last 24 hours have been reviewed. Last evening, the patient was once again febrile with a T-max of 39.3?C. During this time, the patient was noted to be hypotensive. She had been volume resuscitated earlier in the day with 2 L of lactated Ringer's. Over concerns for evolving septic shock, the patient was placed on levophed and vancomycin was added to her antibiotic regimen. At the current time, the patient is being weaned from vasopressor support and is currently requiring 5 mcg. She remains febrile. The patient once again failed her spontaneous breathing trial this morning with anxiety, tachypnea and tachycardia noted. The patient is currently overall net +5.3 L for the admission. Objective: The patient's most recent lab work, culture data and imaging studies have all been personally reviewed. Blood cultures are pending. Respiratory viral panel was negative. Initial sputum culture dated March 30 appears to be normal respiratory damien. Gram stain from repeat sputum culture dated March 31 revealed rare gram-positive cocci in clusters. Surface echocardiogram completed March 31 revealed mild segmental systolic dysfunction with an ejection fraction of 45%. Right ventricular systolic pressure was estimated to be 39 mmHg. 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 A 6-minute walk test completed March 2018 revealed the need for 3 L/min of supplemental oxygen with any exertion. General: - - Intubated, sedated and mechanically ventilated. Currently tolerating A/C mode of mechanical ventilation. HEENT: Atraumatic, PERRLA, Normocephalic Oral: No Gingival or Mucosal Lesions/ Ulcerations, - - Endotracheal and OG tubes remain in place. Neck: Supple, No Nodes, Trachea Midline Lungs: No rhonchi, No wheeze, No rales, Diminished Cardiovascular: Regular rate, Regular Rhythm, Normal S1, Normal S2, No murmurs Abdomen: Bowel Sounds Present, Soft, Non Tender Extremities: No clubbing, No cyanosis, No edema Skin: No breakdown Musculoskeletal: No Tenderness to Palpation of Joints or Extremities Lymphatic: No Cervical, Supraclavicular, or Inguinal Adenopathy Neurological: - - No focal neurological deficits. Patient is currently sedated. Vital Signs Temp Pulse Resp BP Pulse Ox 38.1 C H 66 25 H 118/65 96 01/29/19 06:00 04/01/18 06:35 04/01/18 06:35 04/01/18 06:00 04/01/18 06:27 Oxygen Delivery Method Mechanical Ventilator Weight: 167 lb 15.876 oz Body Mass Index (BMI) 28.2 Intake and Output for Last 24 Hours 03/30/18 03/31/18 04/01/18 23:59 23:59 23:59 Intake Total 1162.7 / 1162.7 4934.2 / 4934.2 898.2 / 898.2 Output Total 675 / 675 700 / 700 275 / 275 Balance 487.7 / 487.7 4234.2 / 4234.2 623.2 / 623.2 Labs (Last 48 Hours) 03/30/18 03/30/18 03/30/18 04:48 06:47 07:05 WBC RBC Hgb Hct MCV MCH MCHC RDW RDW Differential Plt Count MPV Immature Gran % (Auto) Neut % (Auto) Lymph % (Auto) Dundy % (Auto) Eos % (Auto) Baso % (Auto) Absolute Neuts (auto) Absolute Lymphs (auto) Total Counted Specimen Type Sample Site pH Bicarbonate Actual POC Total CO2 Base Excess O2 Saturation O2 % ABG pCO2 ABG pO2 Angelo Test Respiration Rate O2 Delivery Device Liter Flow Minute Volume Vent Mode Tidal Volume POC PEEP POC Pressure Suppt Pressure High Pressure Low Time High Time Low EPAP IPAP Blood Gas Notified Whom Blood Gas Notified Time Sodium Potassium Chloride Carbon Dioxide Anion Gap BUN Creatinine Estim Creat Clear Calc Est GFR (MDRD) Af Amer Est GFR (MDRD) Non-Af BUN/Creatinine Ratio Glucose Lactic Acid 1.8 Calcium Phosphorus Magnesium Total Creatine Kinase Troponin I B-Natriuretic Peptide 120.2 H Triglycerides Urine Color Yellow Urine Clarity Cloudy Urine pH 6.0 Ur Specific [place] 1.020 Urine Protein 100 H Urine Glucose (UA) 50 H Urine Ketones Negative Urine Occult Blood 250 H Urine Nitrite Negative Urine Bilirubin Negative Urine Urobilinogen Normal Ur Leukocyte Esterase Negative Urine RBC 10-25 SEEN Urine WBC 0-5 SEEN Ur Squamous Epith Cells 0-5 SEEN Ur Transition Epith Cell 0-5 SEEN Amorphous Sediment 2+ Urine Bacteria RARE Urine Mucus 0 SEEN MRSA (PCR) POC Glucose 03/30/18 03/30/18 03/30/18 08:09 08:13 09:15 WBC RBC Hgb Hct MCV MCH MCHC RDW RDW Differential Plt Count MPV Immature Gran % (Auto) Neut % (Auto) Lymph % (Auto) Dundy % (Auto) Eos % (Auto) Baso % (Auto) Absolute Neuts (auto) Absolute Lymphs (auto) Total Counted Specimen Type ART Cancelled Sample Site R Brachial Cancelled pH 7.19 L* Cancelled Bicarbonate Actual 20.3 L Cancelled POC Total CO2 22 Cancelled Base Excess -8 L Cancelled O2 Saturation 63 L Cancelled O2 % 50 Cancelled ABG pCO2 52.8 H Cancelled ABG pO2 41 L Cancelled Angelo Test NA Cancelled Respiration Rate 14 Cancelled O2 Delivery Device Vent Cancelled Liter Flow Cancelled Minute Volume 8.00 Cancelled Vent Mode A-C Cancelled Tidal Volume 450 Cancelled POC PEEP 5 Cancelled POC Pressure Suppt Cancelled Pressure High Cancelled Pressure Low Cancelled Time High Cancelled Time Low Cancelled EPAP Cancelled IPAP Cancelled Blood Gas Notified Whom ICU MD Cancelled Blood Gas Notified Time 800 Cancelled Sodium Potassium Chloride Carbon Dioxide Anion Gap BUN Creatinine Estim Creat Clear Calc Est GFR (MDRD) Af Amer Est GFR (MDRD) Non-Af BUN/Creatinine Ratio Glucose Lactic Acid Calcium Phosphorus Magnesium Total Creatine Kinase 85 Troponin I B-Natriuretic Peptide Triglycerides 204 H Urine Color Urine Clarity Urine pH Ur Specific [place] Urine Protein Urine Glucose (UA) Urine Ketones Urine Occult Blood Urine Nitrite Urine Bilirubin Urine Urobilinogen Ur Leukocyte Esterase Urine RBC Urine WBC Ur Squamous Epith Cells Ur Transition Epith Cell Amorphous Sediment Urine Bacteria Urine Mucus MRSA (PCR) POC Glucose 03/30/18 03/30/18 03/30/18 10:20 12:41 15:30 WBC RBC Hgb Hct MCV MCH MCHC RDW RDW Differential Plt Count MPV Immature Gran % (Auto) Neut % (Auto) Lymph % (Auto) Dundy % (Auto) Eos % (Auto) Baso % (Auto) Absolute Neuts (auto) Absolute Lymphs (auto) Total Counted Specimen Type ART Sample Site L Radial pH 7.25 L Bicarbonate Actual 21.3 L POC Total CO2 23 Base Excess -6 L O2 Saturation 89 L O2 % 50 ABG pCO2 48.5 H ABG pO2 67 L Angelo Test POS Respiration Rate 16 O2 Delivery Device Vent Liter Flow Minute Volume 8.00 Vent Mode A-C Tidal Volume 500 POC PEEP 5 POC Pressure Suppt Pressure High Pressure Low Time High Time Low EPAP IPAP Blood Gas Notified Whom ICU Blood Gas Notified Time 1020 Sodium Potassium Chloride Carbon Dioxide Anion Gap BUN Creatinine Estim Creat Clear Calc Est GFR (MDRD) Af Amer Est GFR (MDRD) Non-Af BUN/Creatinine Ratio Glucose Lactic Acid Calcium Phosphorus Magnesium Total Creatine Kinase Troponin I 0.516 H B-Natriuretic Peptide Triglycerides Urine Color Urine Clarity Urine pH Ur Specific [place] Urine Protein Urine Glucose (UA) Urine Ketones Urine Occult Blood Urine Nitrite Urine Bilirubin Urine Urobilinogen Ur Leukocyte Esterase Urine RBC Urine WBC Ur Squamous Epith Cells Ur Transition Epith Cell Amorphous Sediment Urine Bacteria Urine Mucus MRSA (PCR) POC Glucose 149 H 03/30/18 03/30/18 03/30/18 17:57 18:05 21:05 WBC RBC Hgb Hct MCV MCH MCHC RDW RDW Differential Plt Count MPV Immature Gran % (Auto) Neut % (Auto) Lymph % (Auto) Dundy % (Auto) Eos % (Auto) Baso % (Auto) Absolute Neuts (auto) Absolute Lymphs (auto) Total Counted Specimen Type Sample Site pH Bicarbonate Actual POC Total CO2 Base Excess O2 Saturation O2 % ABG pCO2 ABG pO2 Angelo Test Respiration Rate O2 Delivery Device Liter Flow Minute Volume Vent Mode Tidal Volume POC PEEP POC Pressure Suppt Pressure High Pressure Low Time High Time Low EPAP IPAP Blood Gas Notified Whom Blood Gas Notified Time Sodium Potassium Chloride Carbon Dioxide Anion Gap BUN Creatinine Estim Creat Clear Calc Est GFR (MDRD) Af Amer Est GFR (MDRD) Non-Af BUN/Creatinine Ratio Glucose Lactic Acid Calcium Phosphorus Magnesium Total Creatine Kinase Troponin I 0.553 H 0.578 H B-Natriuretic Peptide Triglycerides Urine Color Urine Clarity Urine pH Ur Specific [place] Urine Protein Urine Glucose (UA) Urine Ketones Urine Occult Blood Urine Nitrite Urine Bilirubin Urine Urobilinogen Ur Leukocyte Esterase Urine RBC Urine WBC Ur Squamous Epith Cells Ur Transition Epith Cell Amorphous Sediment Urine Bacteria Urine Mucus MRSA (PCR) POC Glucose 131 H 03/30/18 03/31/18 03/31/18 23:42 04:10 04:10 WBC 12.7 H RBC 3.79 L Hgb 11.1 L Hct 34.6 L MCV 91.3 MCH 29.3 MCHC 32.1 RDW 14.5 RDW Differential 46.9 H Plt Count 222 MPV 10.3 Immature Gran % (Auto) 0.400 Neut % (Auto) 82.8 H Lymph % (Auto) 9.3 L Dundy % (Auto) 7.3 Eos % (Auto) 0.1 Baso % (Auto) 0.1 Absolute Neuts (auto) 10.5 H Absolute Lymphs (auto) 1.18 Total Counted Not Reportable Specimen Type Sample Site pH Bicarbonate Actual POC Total CO2 Base Excess O2 Saturation O2 % ABG pCO2 ABG pO2 Angelo Test Respiration Rate O2 Delivery Device Liter Flow Minute Volume Vent Mode Tidal Volume POC PEEP POC Pressure Suppt Pressure High Pressure Low Time High Time Low EPAP IPAP Blood Gas Notified Whom Blood Gas Notified Time Sodium 141 Potassium 4.6 Chloride 109 H Carbon Dioxide 22.0 Anion Gap 10 BUN 33 H Creatinine 1.14 H Estim Creat Clear Calc 36.36 Est GFR (MDRD) Af Amer 60 Est GFR (MDRD) Non-Af 50 L BUN/Creatinine Ratio 28.9 H Glucose 124 H Lactic Acid Calcium 7.9 L Phosphorus 2.9 Magnesium 2.5 Total Creatine Kinase Troponin I B-Natriuretic Peptide Triglycerides Urine Color Urine Clarity Urine pH Ur Specific [place] Urine Protein Urine Glucose (UA) Urine Ketones Urine Occult Blood Urine Nitrite Urine Bilirubin Urine Urobilinogen Ur Leukocyte Esterase Urine RBC Urine WBC Ur Squamous Epith Cells Ur Transition Epith Cell Amorphous Sediment Urine Bacteria Urine Mucus MRSA (PCR) POC Glucose 145 H 03/31/18 03/31/18 03/31/18 05:17 09:25 11:13 WBC RBC Hgb Hct MCV MCH MCHC RDW RDW Differential Plt Count MPV Immature Gran % (Auto) Neut % (Auto) Lymph % (Auto) [place] % (Auto) Eos % (Auto) Baso % (Auto) Absolute Neuts (auto) Absolute Lymphs (auto) Total Counted Specimen Type Sample Site pH Bicarbonate Actual POC Total CO2 Base Excess O2 Saturation O2 % ABG pCO2 ABG pO2 Angelo Test Respiration Rate O2 Delivery Device Liter Flow Minute Volume Vent Mode Tidal Volume POC PEEP POC Pressure Suppt Pressure High Pressure Low Time High Time Low EPAP IPAP Blood Gas Notified Whom Blood Gas Notified Time Sodium Potassium Chloride Carbon Dioxide Anion Gap BUN Creatinine Estim Creat Clear Calc Est GFR (MDRD) Af Amer Est GFR (MDRD) Non-Af BUN/Creatinine Ratio Glucose Lactic Acid Calcium Phosphorus Magnesium Total Creatine Kinase Troponin I B-Natriuretic Peptide Triglycerides Urine Color Urine Clarity Urine pH Ur Specific [place] Urine Protein Urine Glucose (UA) Urine Ketones Urine Occult Blood Urine Nitrite Urine Bilirubin Urine Urobilinogen Ur Leukocyte Esterase Urine RBC Urine WBC Ur Squamous Epith Cells Ur Transition Epith Cell Amorphous Sediment Urine Bacteria Urine Mucus MRSA (PCR) Negative POC Glucose 154 H 143 H 03/31/18 03/31/18 04/01/18 17:29 23:36 03:40 WBC 18.5 H RBC 4.74 Hgb 13.5 Hct 42.6 MCV 89.9 MCH 28.5 MCHC 31.7 L RDW 14.6 RDW Differential 47.1 H Plt Count 263 MPV 10.6 Immature Gran % (Auto) Neut % (Auto) Lymph % (Auto) [place] % (Auto) Eos % (Auto) Baso % (Auto) Absolute Neuts (auto) Absolute Lymphs (auto) Total Counted Specimen Type Sample Site pH Bicarbonate Actual POC Total CO2 Base Excess O2 Saturation O2 % ABG pCO2 ABG pO2 Angelo Test Respiration Rate O2 Delivery Device Liter Flow Minute Volume Vent Mode Tidal Volume POC PEEP POC Pressure Suppt Pressure High Pressure Low Time High Time Low EPAP IPAP Blood Gas Notified Whom Blood Gas Notified Time Sodium Potassium Chloride Carbon Dioxide Anion Gap BUN Creatinine Estim Creat Clear Calc Est GFR (MDRD) Af Amer Est GFR (MDRD) Non-Af BUN/Creatinine Ratio Glucose Lactic Acid Calcium Phosphorus Magnesium Total Creatine Kinase Troponin I B-Natriuretic Peptide Triglycerides Urine Color Urine Clarity Urine pH Ur Specific [place] Urine Protein Urine Glucose (UA) Urine Ketones Urine Occult Blood Urine Nitrite Urine Bilirubin Urine Urobilinogen Ur Leukocyte Esterase Urine RBC Urine WBC Ur Squamous Epith Cells Ur Transition Epith Cell Amorphous Sediment Urine Bacteria Urine Mucus MRSA (PCR) POC Glucose 296 H 144 H 04/01/18 04/01/18 03:40 05:32 WBC RBC Hgb Hct MCV MCH MCHC RDW RDW Differential Plt Count MPV Immature Gran % (Auto) Neut % (Auto) Lymph % (Auto) [place] % (Auto) Eos % (Auto) Baso % (Auto) Absolute Neuts (auto) Absolute Lymphs (auto) Total Counted Specimen Type Sample Site pH Bicarbonate Actual POC Total CO2 Base Excess O2 Saturation O2 % ABG pCO2 ABG pO2 Angelo Test Respiration Rate O2 Delivery Device Liter Flow Minute Volume Vent Mode Tidal Volume POC PEEP POC Pressure Suppt Pressure High Pressure Low Time High Time Low EPAP IPAP Blood Gas Notified Whom Blood Gas Notified Time Sodium 135 L Potassium 4.3 Chloride 107 Carbon Dioxide 17.0 L Anion Gap 11 BUN 33 H Creatinine 1.08 H Estim Creat Clear Calc 38.38 Est GFR (MDRD) Af Amer 64 Est GFR (MDRD) Non-Af 53 L BUN/Creatinine Ratio 30.6 H Glucose 141 H Lactic Acid Calcium 7.8 L Phosphorus Magnesium 2.2 Total Creatine Kinase Troponin I B-Natriuretic Peptide Triglycerides Urine Color Urine Clarity Urine pH Ur Specific [place] Urine Protein Urine Glucose (UA) Urine Ketones Urine Occult Blood Urine Nitrite Urine Bilirubin Urine Urobilinogen Ur Leukocyte Esterase Urine RBC Urine WBC Ur Squamous Epith Cells Ur Transition Epith Cell Amorphous Sediment Urine Bacteria Urine Mucus MRSA (PCR) POC Glucose 168 H Microbiology 03/31/18 11:15 Mucosa - Nose Respiratory Panel (PCR) - Final 03/31/18 12:30 Sputum, Induced/Lukens Gram Stain - Final 03/30/18 08:50 Sputum, Induced/Lukens Gram Stain - Final 03/30/18 08:50 Sputum, Induced/Lukens Respiratory Culture - Preliminary Appears to be normal respiratory damien. Further studies to follow. 03/30/18 08:50 Mucosa - Nasopharyngeal Respiratory Panel (PCR) - Final Clinical Impression(s) from Imaging Studies Brain CT 03/30/18 04:57 IMPRESSION: 1. Negative for intracranial hemorrhage or acute intracranial disease. 2. Paranasal sinus disease and additional chronic changes, as above. Individualized dose optimization techniques were used for this CT. at 0701 Reported and signed by: Leonard Romeo MD Electronically Signed: Leonard Romeo, at 7:00 EST Tel , Service support , Chest X-Ray 03/30/18 05:06 IMPRESSION: 1. The endotracheal tube appears in good position and the NG tube tip lies at the GE junction. 2. Chronic lung disease with emphysema and interstitial fibrosis. Superimposed interstitial pulmonary edema is also suggested. at 0554 Reported and signed by: Leonard Romeo MD Electronically Signed: Leonard Romeo at 5:51 EST Tel , Service support , Medical Necessity - Tobacco Use Smoking Status: Current every day smoker Assessment/Plan All Active Problems (Last Reviewed 03/06/18 @ 06:35 by Deanna Coker) Acute respiratory failure with hypoxia and hypercapnia (Acute) COPD with acute exacerbation (Acute) Gram-negative pneumonia (Acute) Acute hypercapnic respiratory failure (Acute) NSTEMI (non-ST elevated myocardial infarction) (Acute) COPD exacerbation (Acute) Congestive heart failure (Acute) RECOMMENDATIONS: 1. Continue propofol and fentanyl for sedation. 2. Start Seroquel 25 mg twice daily. 3. Wean levophed to maintain a mean arterial pressure at or above 65 mmHg. 4. PICC line to be placed today. 5. Recheck blood and urine cultures. 6. Obtain repeat plain film chest x-ray. 7. Continue broad-spectrum antimicrobials. 8. Obtain infectious diseases consultation 9. Discontinue budesonide and start IV Solu-Medrol 40 mg every 6 hours IMPRESSIONS: 1. Acute on chronic combined respiratory failure likely secondary to COPD with exacerbation The patient does have known severe COPD, based upon recent pulmonary function studies from February 2018. In addition, a recent 6-minute walk test revealed the need for 3 L/min with exertion at her baseline. The patient does have an extensive smoking history and continues to smoke daily. The patient's chest imaging studies did reveal chronic interstitial changes without focal consolidation. However, she was noted to have copious sputum production. The patient was initially started on Levaquin, which was discontinued after 1 day and broaden to Zosyn. The patient then went on to develop high-grade fevers and hypotension which required initiation of vasopressor support. Accordingly, vancomycin was added. At the current time, the patient will remain on broad-spectrum antibiotics. She will be maintained on her bronchodilators along with IV steroids. We will plan to obtain repeat plain film chest x-ray this morning. Tube feeds will be continued as ordered. 2. Septic shock While an underlying pulmonary infectious process is certainly a consideration, the patient's sputum cultures have not demonstrated any growth. The patient's Precedex was discontinued this morning over concerns that she may have developed a drug fever. She will be placed back on propofol and fentanyl accordingly. Given the high-grade nature of her fevers overnight, will obtain an infectious diseases consultation. May need to consider CT of the patient's chest and abdomen at some point in the near future, if the infectious etiology has yet to be identified. 3. Systolic heart failure/pulmonary hypertension Cardiology is currently following to assist with medical management. At the current time, the patient's hemodynamics preclude the utilization of diuretics. Continue to hold antihypertensives at this time. 4. Acute kidney injury Potentially prerenal in etiology. Creatinine is improving with time. Continue to monitor urine output. There is no current indication for renal replacement therapy. 5. Continuous tobacco dependence/hypertension/hyperlipidemia/peripheral vascular disease Complicates care, management, recovery and prognosis. We will plan to continue to hold antihypertensives, given tenuous hemodynamics. Continue nicotine replacement therapy. TIME: 40 minutes of critical care time, independent of procedures, was spent addressing the patient's acute on chronic combined respiratory failure, COPD exacerbation, septic shock, systolic heart failure, pulmonary hypertension, acute kidney injury, review of all data and collaboration with the care team. ([id number]) Code Visit [id number]: [id number] Critical care first hour
--- NOTE | 2018-04-01 06:50 | PN_ITS ---
Subjective: The patient was seen and examined at the bedside this morning. Events from the last 24 hours have been reviewed. Last evening, the patient was once again febrile with a T-max of 39.3?C. During this time, the patient was noted to be hypotensive. She had been volume resuscitated earlier in the day with 2 L of lactated Ringer's. Over concerns for evolving septic shock, the patient was placed on levophed and vancomycin was added to her antibiotic regimen. At the current time, the patient is being weaned from vasopressor support and is curren tly requiring 5 mcg. She remains febrile. The patient once again failed her spontaneous breathing trial this morning with anxiety, tachypnea and tachycardia noted. The patient is currently overall net +5.3 L for the admission. Objective: The patient's most recent lab work, culture data and imaging studies have all been personally reviewed. Blood cultures are pending. Respiratory viral panel was negative. Initial sputum culture dated March 30 appears to be normal respiratory damien. Gram stain from repeat sputum culture dated March 31 revealed rare gram-positive cocci in clusters. Surface echocardiogram completed March 31 revealed mild segmental systolic dysfunction with an ejection fraction of 45%. Right ventricular systolic pressure was estimated to be 39 mmHg. 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 A 6-minute walk test completed March 2018 revealed the need for 3 L/min of supplemental oxygen with any exertion. General: - - Intubated, sedated and mechanically ventilated. Currently tolerating A/C mode of mechanical ventilation. HEENT: Atraumatic, PERRLA, Normocephalic Oral: No Gingival or Mucosal Lesions/ Ulcerations, - - Endotracheal and OG tubes remain in place. Neck: Supple, No Nodes, Trachea Midline Lungs: No rhonchi, No wheeze, No rales, Diminished Cardiovascular: Regular rate, Regular Rhythm, Normal S1, Normal S2, No murmurs Abdomen: Bowel Sounds Present, Soft, Non Tender Extremities: No clubbing, No cyanosis, No edema Skin: No breakdown Musculoskeletal: No Tenderness to Palpation of Joints or Extremities Lymphatic: No Cervical, Supraclavicular, or Inguinal Adenopathy Neurological: - - No focal neurological deficits. Patient is currently sedated. Vital Signs Temp Pulse Resp BP Pulse Ox 38.1 C H 66 25 H 118/65 96 04/01/18 06:00 04/01/18 06:35 04/01/18 06:35 04/01/18 06:00 04/01/18 06:27 Oxygen Delivery Method Mechanical Ventilator Weight: 167 lb 15.876 oz Body Mass Index (BMI) 28.2 Intake and Output for Last 24 Hours 03/30/18 03/31/18 04/01/18 23:59 23:59 23:59 Intake Total 1162.7 / 1162.7 4934.2 / 4934.2 898.2 / 898.2 Output Total 675 / 675 700 / 700 275 / 275 Balance 487.7 / 487.7 4234.2 / 4234.2 623.2 / 623.2 Labs (Last 48 Hours) 03/30/18 03/30/18 03/30/18 04:48 06:47 07:05 WBC RBC Hgb Hct MCV MCH MCHC RDW RDW Differential Plt Count MPV Immature Gran % (Auto) Neut % (Auto) Lymph % (Auto) [place] % (Auto) Eos % (Auto) Baso % (Auto) Absolute Neuts (auto) Absolute Lymphs (auto) Total Counted Specimen Type Sample Site pH Bicarbonate Actual POC Total CO2 Base Excess O2 Saturation O2 % ABG pCO2 ABG pO2 Angelo Test Respiration Rate O2 Delivery Device Liter Flow Minute Volume Vent Mode Tidal Volume POC PEEP POC Pressure Suppt Pressure High Pressure Low Time High Time Low EPAP IPAP Blood Gas Notified Whom Blood Gas Notified Time Sodium Potassium Chloride Carbon Dioxide Anion Gap BUN Creatinine Estim Creat Clear Calc Est GFR (MDRD) Af Amer Est GFR (MDRD) Non-Af BUN/Creatinine Ratio Glucose Lactic Acid 1.8 Calcium Phosphorus Magnesium Total Creatine Kinase Troponin I B-Natriuretic Peptide 120.2 H Triglycerides Urine Color Yellow Urine Clarity Cloudy Urine pH 6.0 Ur Specific [place] 1.020 Urine Protein 100 H Urine Glucose (UA) 50 H Urine Ketones Negative Urine Occult Blood 250 H Urine Nitrite Negative Urine Bilirubin Negative Urine Urobilinogen Normal Ur Leukocyte Esterase Negative Urine RBC 10-25 SEEN Urine WBC 0-5 SEEN Ur Squamous Epith Cells 0-5 SEEN Ur Transition Epith Cell 0-5 SEEN Amorphous Sediment 2+ Urine Bacteria RARE Urine Mucus 0 SEEN MRSA (PCR) POC Glucose 03/30/18 03/30/18 03/30/18 08:09 08:13 09:15 WBC RBC Hgb Hct MCV MCH MCHC RDW RDW Differential Plt Count MPV Immature Gran % (Auto) Neut % (Auto) Lymph % (Auto) [place] % (Auto) Eos % (Auto) Baso % (Auto) Absolute Neuts (auto) Absolute Lymphs (auto) Total Counted Specimen Type ART Cancelled Sample Site R Brachial Cancelled pH 7.19 L* Cancelled Bicarbonate Actual 20.3 L Cancelled POC Total CO2 22 Cancelled Base Excess -8 L Cancelled O2 Saturation 63 L Cancelled O2 % 50 Cancelled ABG pCO2 52.8 H Cancelled ABG pO2 41 L Cancelled Angelo Test NA Cancelled Respiration Rate 14 Cancelled O2 Delivery Device Vent Cancelled Liter Flow Cancelled Minute Volume 8.00 Cancelled Vent Mode A-C Cancelled Tidal Volume 450 Cancelled POC PEEP 5 Cancelled POC Pressure Suppt Cancelled Pressure High Cancelled Pressure Low Cancelled Time High Cancelled Time Low Cancelled EPAP Cancelled IPAP Cancelled Blood Gas Notified Whom ICU MD Cancelled Blood Gas Notified Time 800 Cancelled Sodium Potassium Chloride Carbon Dioxide Anion Gap BUN Creatinine Estim Creat Clear Calc Est GFR (MDRD) Af Amer Est GFR (MDRD) Non-Af BUN/Creatinine Ratio Glucose Lactic Acid Calcium Phosphorus Magnesium Total Creatine Kinase 85 Troponin I B-Natriuretic Peptide Triglycerides 204 H Urine Color Urine Clarity Urine pH Ur Specific [place] Urine Protein Urine Glucose (UA) Urine Ketones Urine Occult Blood Urine Nitrite Urine Bilirubin Urine Urobilinogen Ur Leukocyte Esterase Urine RBC Urine WBC Ur Squamous Epith Cells Ur Transition Epith Cell Amorphous Sediment Urine Bacteria Urine Mucus MRSA (PCR) POC Glucose 03/30/18 03/30/18 03/30/18 10:20 12:41 15:30 WBC RBC Hgb Hct MCV MCH MCHC RDW RDW Differential Plt Count MPV Immature Gran % (Auto) Neut % (Auto) Lymph % (Auto) [place] % (Auto) Eos % (Auto) Baso % (Auto) Absolute Neuts (auto) Absolute Lymphs (auto) Total Counted Specimen Type ART Sample Site L Radial pH 7.25 L Bicarbonate Actual 21.3 L POC Total CO2 23 Base Excess -6 L O2 Saturation 89 L O2 % 50 ABG pCO2 48.5 H ABG pO2 67 L Angelo Test POS Respiration Rate 16 O2 Delivery Device Vent Liter Flow Minute Volume 8.00 Vent Mode A-C Tidal Volume 500 POC PEEP 5 POC Pressure Suppt Pressure High Pressure Low Time High Time Low EPAP IPAP Blood Gas Notified Whom ICU MD Blood Gas Notified Time 1020 Sodium Potassium Chloride Carbon Dioxide Anion Gap BUN Creatinine Estim Creat Clear Calc Est GFR (MDRD) Af Amer Est GFR (MDRD) Non-Af BUN/Creatinine Ratio Glucose Lactic Acid Calcium Phosphorus Magnesium Total Creatine Kinase Troponin I 0.516 H B-Natriuretic Peptide Triglycerides Urine Color Urine Clarity Urine pH Ur Specific [place] Urine Protein Urine Glucose (UA) Urine Ketones Urine Occult Blood Urine Nitrite Urine Bilirubin Urine Urobilinogen Ur Leukocyte Esterase Urine RBC Urine WBC Ur Squamous Epith Cells Ur Transition Epith Cell Amorphous Sediment Urine Bacteria Urine Mucus MRSA (PCR) POC Glucose 149 H 03/30/18 03/30/18 03/30/18 17:57 18:05 21:05 WBC RBC Hgb Hct MCV MCH MCHC RDW RDW Differential Plt Count MPV Immature Gran % (Auto) Neut % (Auto) Lymph % (Auto) [place] % (Auto) Eos % (Auto) Baso % (Auto) Absolute Neuts (auto) Absolute Lymphs (auto) Total Counted Specimen Type Sample Site pH Bicarbonate Actual POC Total CO2 Base Excess O2 Saturation O2 % ABG pCO2 ABG pO2 Angelo Test Respiration Rate O2 Delivery Device Liter Flow Minute Volume Vent Mode Tidal Volume POC PEEP POC Pressure Suppt Pressure High Pressure Low Time High Time Low EPAP IPAP Blood Gas Notified Whom Blood Gas Notified Time Sodium Potassium Chloride Carbon Dioxide Anion Gap BUN Creatinine Estim Creat Clear Calc Est GFR (MDRD) Af Amer Est GFR (MDRD) Non-Af BUN/Creatinine Ratio Glucose Lactic Acid Calcium Phosphorus Magnesium Total Creatine Kinase Troponin I 0.553 H 0.578 H B-Natriuretic Peptide Triglycerides Urine Color Urine Clarity Urine pH Ur Specific [place] Urine Protein Urine Glucose (UA) Urine Ketones Urine Occult Blood Urine Nitrite Urine Bilirubin Urine Urobilinogen Ur Leukocyte Esterase Urine RBC Urine WBC Ur Squamous Epith Cells Ur Transition Epith Cell Amorphous Sediment Urine Bacteria Urine Mucus MRSA (PCR) POC Glucose 131 H 03/30/18 03/31/18 03/31/18 23:42 04:10 04:10 WBC 12.7 H RBC 3.79 L Hgb 11.1 L Hct 34.6 L MCV 91.3 MCH 29.3 MCHC 32.1 RDW 14.5 RDW Differential 46.9 H Plt Count 222 MPV 10.3 Immature Gran % (Auto) 0.400 Neut % (Auto) 82.8 H Lymph % (Auto) 9.3 L [place] % (Auto) 7.3 Eos % (Auto) 0.1 Baso % (Auto) 0.1 Absolute Neuts (auto) 10.5 H Absolute Lymphs (auto) 1.18 Total Counted Not Reportable Specimen Type Sample Site pH Bicarbonate Actual POC Total CO2 Base Excess O2 Saturation O2 % ABG pCO2 ABG pO2 Angelo Test Respiration Rate O2 Delivery Device Liter Flow Minute Volume Vent Mode Tidal Volume POC PEEP POC Pressure Suppt Pressure High Pressure Low Time High Time Low EPAP IPAP Blood Gas Notified Whom Blood Gas Notified Time Sodium 141 Potassium 4.6 Chloride 109 H Carbon Dioxide 22.0 Anion Gap 10 BUN 33 H Creatinine 1.14 H Estim Creat Clear Calc 36.36 Est GFR (MDRD) Af Amer 60 Est GFR (MDRD) Non-Af 50 L BUN/Creatinine Ratio 28.9 H Glucose 124 H Lactic Acid Calcium 7.9 L Phosphorus 2.9 Magnesium 2.5 Total Creatine Kinase Troponin I B-Natriuretic Peptide Triglycerides Urine Color Urine Clarity Urine pH Ur Specific [place] Urine Protein Urine Glucose (UA) Urine Ketones Urine Occult Blood Urine Nitrite Urine Bilirubin Urine Urobilinogen Ur Leukocyte Esterase Urine RBC Urine WBC Ur Squamous Epith Cells Ur Transition Epith Cell Amorphous Sediment Urine Bacteria Urine Mucus MRSA (PCR) POC Glucose 145 H 03/31/18 03/31/18 03/31/18 05:17 09:25 11:13 WBC RBC Hgb Hct MCV MCH MCHC RDW RDW Differential Plt Count MPV Immature Gran % (Auto) Neut % (Auto) Lymph % (Auto) [place] % (Auto) Eos % (Auto) Baso % (Auto) Absolute Neuts (auto) Absolute Lymphs (auto) Total Counted Specimen Type Sample Site pH Bicarbonate Actual POC Total CO2 Base Excess O2 Saturation O2 % ABG pCO2 ABG pO2 Angelo Test Respiration Rate O2 Delivery Device Liter Flow Minute Volume Vent Mode Tidal Volume POC PEEP POC Pressure Suppt Pressure High Pressure Low Time High Time Low EPAP IPAP Blood Gas Notified Whom Blood Gas Notified Time Sodium Potassium Chloride Carbon Dioxide Anion Gap BUN Creatinine Estim Creat Clear Calc Est GFR (MDRD) Af Amer Est GFR (MDRD) Non-Af BUN/Creatinine Ratio Glucose Lactic Acid Calcium Phosphorus Magnesium Total Creatine Kinase Troponin I B-Natriuretic Peptide Triglycerides Urine Color Urine Clarity Urine pH Ur Specific [place] Urine Protein Urine Glucose (UA) Urine Ketones Urine Occult Blood Urine Nitrite Urine Bilirubin Urine Urobilinogen Ur Leukocyte Esterase Urine RBC Urine WBC Ur Squamous Epith Cells Ur Transition Epith Cell Amorphous Sediment Urine Bacteria Urine Mucus MRSA (PCR) Negative POC Glucose 154 H 143 H 03/31/18 03/31/18 04/01/18 17:29 23:36 03:40 WBC 18.5 H RBC 4.74 Hgb 13.5 Hct 42.6 MCV 89.9 MCH 28.5 MCHC 31.7 L RDW 14.6 RDW Differential 47.1 H Plt Count 263 MPV 10.6 Immature Gran % (Auto) Neut % (Auto) Lymph % (Auto) [place] % (Auto) Eos % (Auto) Baso % (Auto) Absolute Neuts (auto) Absolute Lymphs (auto) Total Counted Specimen Type Sample Site pH Bicarbonate Actual POC Total CO2 Base Excess O2 Saturation O2 % ABG pCO2 ABG pO2 Angelo Test Respiration Rate O2 Delivery Device Liter Flow Minute Volume Vent Mode Tidal Volume POC PEEP POC Pressure Suppt Pressure High Pressure Low Time High Time Low EPAP IPAP Blood Gas Notified Whom Blood Gas Notified Time Sodium Potassium Chloride Carbon Dioxide Anion Gap BUN Creatinine Estim Creat Clear Calc Est GFR (MDRD) Af Amer Est GFR (MDRD) Non-Af BUN/Creatinine Ratio Glucose Lactic Acid Calcium Phosphorus Magnesium Total Creatine Kinase Troponin I B-Natriuretic Peptide Triglycerides Urine Color Urine Clarity Urine pH Ur Specific [place] Urine Protein Urine Glucose (UA) Urine Ketones Urine Occult Blood Urine Nitrite Urine Bilirubin Urine Urobilinogen Ur Leukocyte Esterase Urine RBC Urine WBC Ur Squamous Epith Cells Ur Transition Epith Cell Amorphous Sediment Urine Bacteria Urine Mucus MRSA (PCR) POC Glucose 296 H 144 H 04/01/18 04/01/18 03:40 05:32 WBC RBC Hgb Hct MCV MCH MCHC RDW RDW Differential Plt Count MPV Immature Gran % (Auto) Neut % (Auto) Lymph % (Auto) [place] % (Auto) Eos % (Auto) Baso % (Auto) Absolute Neuts (auto) Absolute Lymphs (auto) Total Counted Specimen Type Sample Site pH Bicarbonate Actual POC Total CO2 Base Excess O2 Saturation O2 % ABG pCO2 ABG pO2 Angelo Test Respiration Rate O2 Delivery Device Liter Flow Minute Volume Vent Mode Tidal Volume POC PEEP POC Pressure Suppt Pressure High Pressure Low Time High Time Low EPAP IPAP Blood Gas Notified Whom Blood Gas Notified Time Sodium 135 L Potassium 4.3 Chloride 107 Carbon Dioxide 17.0 L Anion Gap 11 BUN 33 H Creatinine 1.08 H Estim Creat Clear Calc 38.38 Est GFR (MDRD) Af Amer 64 Est GFR (MDRD) Non-Af 53 L BUN/Creatinine Ratio 30.6 H Glucose 141 H Lactic Acid Calcium 7.8 L Phosphorus Magnesium 2.2 Total Creatine Kinase Troponin I B-Natriuretic Peptide Triglycerides Urine Color Urine Clarity Urine pH Ur Specific [place] Urine Protein Urine Glucose (UA) Urine Ketones Urine Occult Blood Urine Nitrite Urine Bilirubin Urine Urobilinogen Ur Leukocyte Esterase Urine RBC Urine WBC Ur Squamous Epith Cells Ur Transition Epith Cell Amorphous Sediment Urine Bacteria Urine Mucus MRSA (PCR) POC Glucose 168 H Microbiology 03/31/18 11:15 Mucosa - Nose Respiratory Panel (PCR) - Final 03/31/18 12:30 Sputum, Induced/Lukens Gram Stain - Final 03/30/18 08:50 Sputum, Induced/Lukens Gram Stain - Final 03/30/18 08:50 Sputum, Induced/Lukens Respiratory Culture - Preliminary Appears to be normal respiratory damien. Further studies to follow. 03/30/18 08:50 Mucosa - Nasopharyngeal Respiratory Panel (PCR) - Final Clinical Impression(s) from Imaging Studies Brain CT 03/30/18 04:57 IMPRESSION: 1. Negative for intracranial hemorrhage or acute intracranial disease. 2. Paranasal sinus disease and additional chronic changes, as above. Individualized dose optimization techniques were used for this CT. at 0701 Reported and signed by: Leonard Romeo MD Electronically Signed: Leonard Romeo, at 7:00 EST Tel , Service support , Chest X-Ray 03/30/18 05:06 IMPRESSION: 1. The endotracheal tube appears in good position and the NG tube tip lies at the GE junction. 2. Chronic lung disease with emphysema and interstitial fibrosis. Superimposed interstitial pulmonary edema is also suggested. at 0585 Reported and signed by: Leonard Romeo MD Electronically Signed: Leonard Romeo, at 5:51 EST Tel , Service support , Medical Necessity - Tobacco Use Smoking Status: Current every day smoker Assessment/Plan All Active Problems (Last Reviewed 03/06/18 @ 06:35 by Deanna Coker) Acute respiratory failure with hypoxia and hypercapnia (Acute) COPD with acute exacerbation (Acute) Gram-negative pneumonia (Acute) Acute hypercapnic respiratory failure (Acute) NSTEMI (non-ST elevated myocardial infarction) (Acute) COPD exacerbation (Acute) Congestive heart failure (Acute) RECOMMENDATIONS: 1. Continue propofol and fentanyl for sedation. 2. Start Seroquel 25 mg twice daily. 3. Wean levophed to maintain a mean arterial pressure at or above 65 mmHg. 4. PICC line to be placed today. 5. Recheck blood and urine cultures. 6. Obtain repeat plain film chest x-ray. 7. Continue broad-spectrum antimicrobials. 8. Obtain infectious diseases consultation 9. Discontinue budesonide and start IV Solu-Medrol 40 mg every 6 hours IMPRESSIONS: 1. Acute on chronic combined respiratory failure likely secondary to COPD with exacerbation The patient does have known severe COPD, based upon recent pulmonary function studies from February 2018. In addition, a recent 6-minute walk test revealed the need for 3 L/min with exertion at her baseline. The patient does have an extensive smoking history and continues to smoke daily. The patient's chest imaging studies did reveal chronic interstitial changes without focal consolidation. However, she was noted to have copious sputum production. The patient was initially started on Levaquin, which was discontinued after 1 day and broaden to Zosyn. The patient then went on to develop high-grade fevers and hypotension which required initiation of vasopressor support. Accordingly, vancomycin was added. At the current time, the patient will remain on broad- spectrum antibiotics. She will be maintained on her bronchodilators along with IV steroids. We will plan to obtain repeat plain film chest x-ray this morning. Tube feeds will be continued as ordered. 2. Septic shock While an underlying pulmonary infectious process is certainly a consideration, the patient's sputum cultures have not demonstrated any growth. The patient's Precedex was discontinued this morning over concerns that she may have developed a drug fever. She will be placed back on propofol and fentanyl accordingly. Given the high-grade nature of her fevers overnight, will obtain an infectious diseases consultation. May need to consider CT of the patient's chest and abdomen at some point in the near future, if the infectious etiology has yet to be identified. 3. Systolic heart failure/pulmonary hypertension Cardiology is currently following to assist with medical management. At the current time, the patient's hemodynamics preclude the utilization of diuretics. Continue to hold antihypertensives at this time. 4. Acute kidney injury Potentially prerenal in etiology. Creatinine is improving with time. Continue to monitor urine output. There is no current indication for renal replacement therapy. 5. Continuous tobacco dependence/hypertension/hyperlipidemia/peripheral vascular disease Complicates care, management, recovery and prognosis. We will plan to continue to hold antihypertensives, given tenuous hemodynamics. Continue nicotine replacement therapy. TIME: 40 minutes of critical care time, independent of procedures, was spent addressing the patient's acute on chronic combined respiratory failure, COPD exacerbation, septic shock, systolic heart failure, pulmonary hypertension, ac loki kidney injury, review of all data and collaboration with the care team. ([id number]) Code Visit [id number]: [id number] Critical care first hour
--- NOTE | 2018-04-01 06:51 | RAD_ITS ---
STUDY: X-RAY CHEST REASON FOR EXAM: Female, 73 years old. Shortness of breath/dyspnea. COPD. TECHNIQUE: Single AP portable view of the chest. COMPARISON: Comparison is made with prior examination dated March 30, 2018. FINDINGS: EKG electrodes are seen. The tip of the endotracheal tube is at 3.4 cm proximal to the neeru. An orogastric tube is seen with the in the body of the stomach. Stable increased interstitial markings with areas of confluence in the lower lobes suggestive of chronic interstitial fibrosis. This is unchanged. Mild blunting of both costophrenic angles. Normal size heart. Normal mediastinum and danielle. Normal visualized pulmonary arteries. Normal visualized aortic arch and descending thoracic aorta. Normal visualized thoracic spine. Normal visualized ribs, clavicles, and shoulders. There is no demonstrated abnormality of the visualized soft tissue structures of the upper abdomen. RAD/Chest 1 View (Portable) IMPRESSION: Stable examination. Electronically Signed: Marcos Lee MD at 13:25 EST , Service support ,
--- NOTE | 2018-04-01 07:32 | PCM.PN.HOSP ---
Subjective: Patient seen remains on the vent. Patient apparently did spike fever became hypotensive during the night Levophed was started antibiotics broadened. Objective: GENERAL: On the vent arousable HEENT: Atraumatic; ET-tube in place EYES; Anicteric, Normal Conjunctiva NECK; supple, normal thyroid, RESPIRATORY: Diminished to auscultation bilaterally, CARDIOVASCULAR: Regular S1 S2, no audible murmurs GI: soft, non-tender, normoactive bowel sounds, : No Renal angle tenderness; EXTREMITIES: No edema, no clubbing, no cyanosis. MUSCULOSKELETAL: No Joint Tenderness; NEURO: Unable to assess patient on the vent SKIN: No Rash Vitals/I&O's: Vital Signs Temp Pulse Resp BP Pulse Ox 100.6 F H 65 16 118/65 96 04/01/18 06:00 04/01/18 06:35 04/01/18 06:35 04/01/18 06:00 04/01/18 06:27 Oxygen Delivery Method Mechanical Ventilator Weight: 76.2 kg Body Mass Index (BMI) 28.2 Intake and Output for Last 24 Hours 03/30/18 03/31/18 04/01/18 23:59 23:59 23:59 Intake Total 1162.7 / 1162.7 4934.2 / 4934.2 898.2 / 898.2 Output Total 675 / 675 700 / 700 275 / 275 Balance 487.7 / 487.7 4234.2 / 4234.2 623.2 / 623.2 Microbiology Past 72 Hours 03/31/18 11:15 Mucosa - Nose Respiratory Panel (PCR) - Final 03/31/18 12:30 Sputum, Induced/Lukens Gram Stain - Final 03/30/18 08:50 Sputum, Induced/Lukens Gram Stain - Final 03/30/18 08:50 Sputum, Induced/Lukens Respiratory Culture - Preliminary Appears to be normal respiratory damien. Further studies to follow. 03/30/18 08:50 Mucosa - Nasopharyngeal Respiratory Panel (PCR) - Final Laboratory Results 03/31/18 09:25: MRSA (PCR) Negative 03/31/18 11:13: POC Glucose 143 H 03/31/18 17:29: POC Glucose 296 H 03/31/18 23:36: POC Glucose 144 H 04/01/18 03:40: WBC 18.5 H, RBC 4.74, Hgb 13.5, Hct 42.6, MCV 89.9, MCH 28.5, MCHC 31.7 L, RDW 14.6, RDW Differential 47.1 H, Plt Count 263, MPV 10.6 04/01/18 03:40: Sodium 135 L, Potassium 4.3, Chloride 107, Carbon Dioxide 17.0 L, Anion Gap 11, BUN 33 H, Creatinine 1.08 H, Estim Creat Clear Calc 38.38, Est GFR (MDRD) Af Amer 64, Est GFR (MDRD) Non-Af 53 L, BUN/Creatinine Ratio 30.6 H, Glucose 141 H, Calcium 7.8 L, Magnesium 2.2 04/01/18 05:32: POC Glucose 168 H Current Medications Acetaminophen (Tylenol Liquid) 650 mg GT Q6H PRN PRN PRN Reason: FEVER Last Admin: 04/01/18 05:04 Dose: 650 mg Aspirin (Aspirin, Baby) 81 mg GT DAILY@0800 [facility] Last Admin: 03/31/18 09:56 Dose: 81 mg Atorvastatin Calcium (Lipitor) 80 mg PO QHS [facility] Last Admin: 03/31/18 21:50 Dose: 80 mg Chlorhexidine Gluconate () 15 ml PO BID [facility] Last Admin: 03/31/18 21:50 Dose: 15 ml Chlorhexidine Gluconate () 1 each TOPICAL DAILY [facility] Last Admin: 04/01/18 03:12 Dose: 1 each Clopidogrel Bisulfate (Plavix) 75 mg GT DAILY [facility] Last Admin: 03/31/18 09:56 Dose: 75 mg Enoxaparin Sodium (Lovenox) 40 mg SC DAILY@1000 [facility] Last Admin: 03/31/18 09:56 Dose: 40 mg Famotidine (Pepcid) 20 mg GT BID [facility] Last Admin: 03/31/18 21:50 Dose: 20 mg Sodium Chloride () 250 mls @ 15 mls/hr IV .[id number] PRN PRN Reason: SALINE FLUSH Sodium Chloride () 250 mls @ 15 mls/hr IV .[id number] PRN PRN Reason: SALINE FLUSH Enteral Nutritional Formula (Vital Af 1.2 Hakan Liquid) 1,000 mls @ 60 mls/hr GT .[id number] NAIF Last Admin: 03/31/18 14:58 Dose: 60 mls/hr Piperacillin Sod/Tazobactam Sod (Zosyn) 3.375 gm in 50 mls @ 12.5 mls/hr IV Q8 NAIF Last Admin: 04/01/18 05:36 Dose: 12.5 mls/hr Fentanyl () 100 mls @ 5 mls/hr IV .Q20H NAIF Last Admin: 03/31/18 18:42 Dose: 5 mls/hr Vancomycin IV Pharmacy to Dose (1 ea/ Sodium Chloride) 500 mls @ 250 mls/hr IV X1 PRN; Protocol PRN Reason: Rx to Dose Vancomycin HCl 750 mg/ Sodium (Chloride) 265 mls @ 250 mls/hr IV Q24H NAIF Norepinephrine Bitartrate 8 mg (/ Dextrose) 258 mls @ 9.68 mls/hr IV .[id number] NAIF; Protocol Last Admin: 04/01/18 06:57 Dose: Not Given Propofol (Diprivan) 1,000 mg in 100 mls @ 4.572 mls/hr CONT INF .Q12H NAIF Insulin Human Lispro (Humalog Kwikpen (Bkc)) 0 unit SC Q6 NAIF; Protocol Last Admin: 04/01/18 05:33 Dose: 1 units Levalbuterol HCl (Xopenex) 0.63 mg IH Q6HWA.RT NAIF Last Admin: 03/31/18 19:33 Dose: 0.63 mg Magnesium Hydroxide (Milk Of Magnesia) 30 ml PO DAILY PRN PRN PRN Reason: Constipation Methylprednisolone (Solu-Medrol) 40 mg IV Q6 NAIF Nicotine (Nicoderm Cq (Pbkc)) 21 mg TRANSDERM. DAILY NAIF Last Admin: 03/31/18 09:57 Dose: 21 mg Sodium Chloride () 5 - 15 ml IV UD PRN PRN Reason: SALINE FLUSH Last Admin: 03/31/18 21:57 Dose: 10 ml Medical Necessity - Tobacco Use Smoking Status: Current every day smoker Assessment/Plan All Active Problems (Last Reviewed 03/06/18 @ 06:35 by Deanna Coker) Acute respiratory failure with hypoxia and hypercapnia (Acute) COPD with acute exacerbation (Acute) Gram-negative pneumonia (Acute) Acute hypercapnic respiratory failure (Acute) NSTEMI (non-ST elevated myocardial infarction) (Acute) COPD exacerbation (Acute) Congestive heart failure (Acute) Patient is a 73-year-old lady with history of COPD who was brought in on account of progressive shortness of breath patient was intubated as a result of acute respiratory failure 1. Acute hypercapnic and hypoxic respiratory failure secondary to COPD exacerbation: Patient was intubated admitted to the intensive care unit where he is currently being managed. Patient currently remains on steroids bronchodilator treatment in addition to being placed on the vent. Vent management deferred to pulmonary/critical care 2. Septic shock suspected to be secondary to upper respiratory tract infection versus pneumonia. Patient apparently did spike fever on the evening of 03/31/2018. Became hypotensive during the night Levophed was started antibiotics broadened 4. Acute on chronic diastolic congestive heart failure: Chest x-ray obtained on admission demonstrated interstitial pulmonary edema Lasix initiated patient's ejection fraction on echo obtained in December 2017 was 55%. Lasix on hold in view of hypotension 5. Elevated troponin due to non-STEMI type II given patient underlying history of CAD with PCI in November 2017 consultation was placed to cardiology 6. Peripheral vascular disease 7. Essential hypertension; patient BP meds on hold in view of hypotension 8. Tobacco dependence 9. DVT prophylaxis: SC Lovenox Active Medications Acetaminophen (Tylenol Liquid) 650 mg GT Q6H PRN PRN PRN Reason: FEVER Last Admin: 04/01/18 05:04 Dose: 650 mg Aspirin (Aspirin, Baby) 81 mg GT DAILY@0800 [facility] Last Admin: 03/31/18 09:56 Dose: 81 mg Atorvastatin Calcium (Lipitor) 80 mg PO QHS [facility] Last Admin: 03/31/18 21:50 Dose: 80 mg Chlorhexidine Gluconate () 15 ml PO BID [facility] Last Admin: 03/31/18 21:50 Dose: 15 ml Chlorhexidine Gluconate () 1 each TOPICAL DAILY [facility] Last Admin: 04/01/18 03:12 Dose: 1 each Clopidogrel Bisulfate (Plavix) 75 mg GT DAILY [facility] Last Admin: 03/31/18 09:56 Dose: 75 mg Enoxaparin Sodium (Lovenox) 40 mg SC DAILY@1000 [facility] Last Admin: 03/31/18 09:56 Dose: 40 mg Famotidine (Pepcid) 20 mg GT BID [facility] Last Admin: 03/31/18 21:50 Dose: 20 mg Sodium Chloride () 250 mls @ 15 mls/hr IV .[id number] PRN PRN Reason: SALINE FLUSH Sodium Chloride () 250 mls @ 15 mls/hr IV .[id number] PRN PRN Reason: SALINE FLUSH Enteral Nutritional Formula (Vital Af 1.2 Hakan Liquid) 1,000 mls @ 60 mls/hr GT .[id number] NAIF Last Admin: 03/31/18 14:58 Dose: 60 mls/hr Piperacillin Sod/Tazobactam Sod (Zosyn) 3.375 gm in 50 mls @ 12.5 mls/hr IV Q8 NAIF Last Admin: 04/01/18 05:36 Dose: 12.5 mls/hr Fentanyl () 100 mls @ 5 mls/hr IV .Q20H NAIF Last Admin: 04/01/18 08:02 Dose: 5 mls/hr Vancomycin IV Pharmacy to Dose (1 ea/ Sodium Chloride) 500 mls @ 250 mls/hr IV X1 PRN; Protocol PRN Reason: Rx to Dose Vancomycin HCl 750 mg/ Sodium (Chloride) 265 mls @ 250 mls/hr IV Q24H NAIF Norepinephrine Bitartrate 8 mg (/ Dextrose) 258 mls @ 9.68 mls/hr IV .[id number] NAIF; Protocol Last Admin: 04/01/18 06:57 Dose: Not Given Propofol (Diprivan) 1,000 mg in 100 mls @ 4.572 mls/hr CONT INF .Q12H NAIF Insulin Human Lispro (Humalog Kwikpen (Bkc)) 0 unit SC Q6 NAIF; Protocol Last Admin: 04/01/18 05:33 Dose: 1 units Levalbuterol HCl (Xopenex) 0.63 mg IH Q6HWA.RT NAIF Last Admin: 04/01/18 06:33 Dose: 0.63 mg Magnesium Hydroxide (Milk Of Magnesia) 30 ml PO DAILY PRN PRN PRN Reason: Constipation Methylprednisolone (Solu-Medrol) 40 mg IV Q6 NAIF Nicotine (Nicoderm Cq (Pbkc)) 21 mg TRANSDERM. DAILY NAIF Last Admin: 03/31/18 09:57 Dose: 21 mg Sodium Chloride () 5 - 15 ml IV UD PRN PRN Reason: SALINE FLUSH Last Admin: 03/31/18 21:57 Dose: 10 ml Code Visit Inpatient E&M: 06917 Subs Hosp L3
[2018-04-01] MEDS: fentaNYL drip 100 ML 5 MCG IV ×2 (08:02→22:02)
[2018-04-01 08:11] LABS: Bedside Glucose 275 mg/dL (70-110)
--- NOTE | 2018-04-01 10:03 | CASEMGMT ---
RN CM Assessment Presentation: Acute respiratory failure with hypoxia and hypercapnia. Remains on ventilatory support. Intro role of CM and purpose of RN CM assessment. Discussed possible need for short term skilled stay vs HHS on discharge with daughter Lynn. Daughter states pt will not wish to go to any retirement. Support offered and RN CM explained that once pt is extubated and has opportunity to work with PT/OT, further evaluation of her activity level can be made and CM will assist with dc planning. HHS through [facility] would be agreeable if indicated. PCP: Dr. Craig Specialists: Dr. Huggins Preferred Pharmacy: [facility] Insurance: [employer] Prescription Benefit: yes through [employer] LNOK: Daughter Lynn Living Arrangements: lives with daughter Lynn in one story home. Pt has been staying on couch in living room, but daughter states she is moving her bed to living room which is closer to bathroom and will be easier for pt to navigate. ADL assistance, meal prep- family assistance. Transportation: daughter drives DME/HHC: Walker, oxygen 3-4L NC, portability, concentrator, nebulizer through [facility] in [place]. DC PLAN: undetermined. [place] MAHAN RN ACM
[2018-04-01] MEDS: Vital AF 1.2 Cal Liquid 1,000 ML 60 ML GT (10:27)
[2018-04-01] MEDS: Propofol 10MG/Ml 1,000 MG/100 ML Bottle 4.572 MG CONT INF ×2 (10:27→22:02)
--- NOTE | 2018-04-01 11:17 | CON.PCM_ITS ---
Problem List (1) Acute respiratory failure with hypoxia and hypercapnia Status: Acute Reason for Consult: septic shock Consulted by: Dr. Golden History of Present Illness: The patient is a 73 year old F who presented 2 days ago to the ED with several days of progressive SOB, fever, weakness, not feeling well. Family called 911 when she was having trouble breathing. In ED, fever and hypotension, intubated and admitted to icu. Given levaquin. 03/31 changed to zosyn. Overnight, more hypotension down to 59/29, fever to 102.8, vanc added. Remains on vent, bp improved, family at bedside reports some recent URI/flu was going around the fam jorge luis and pt also c/o some diarrhea and abd pain recently. ROS unobtainable due to sedation and vent. - Medical History Past Medical History (Chronic Problems): Chronic Problems (Last Reviewed 03/06/18 @ 06:35 by Deanna Coker) Presence of stent in coronary artery (Chronic) PTCA/SUSAN to ostium of LMT 10/01/2014 @[facility]; PTCA/SUSAN of the mid/distal RCA 11/11/17 CAD (coronary artery disease) (Chronic) Successful PTCA/SUSAN of the of mid/distal RCA with a 2.25 x 38 Promus Synergy, post dilated proximally with a 3.0 x 12 NC balloon at 8 safia (2.5mm); 75%-->0%, no dissection. Successful PTCA/SUSAN of the proximal RCA with a 2.5 x 20 Promus Synergy, post dilated with a 3.0 x 12 at 14 safia; 75%-->0%, no dissection. Tobacco abuse (Chronic) Nonrheumatic tricuspid (valve) insufficiency (Chronic) Nonrheumatic mitral valve insufficiency (Chronic) Nicotine dependence, cigarettes, uncomplicated (Chronic) Hypertension (Chronic) Hyperlipidemia (Chronic) Atherosclerosis of [place] coronary artery of [place] heart without angina pectoris (Chronic) PTCA/SUSAN to ostium of LMT 10/01/2014 @[facility]; PTCA/SUSAN to mid/distal RCA and proximal RCA in November 2017 at [facility]; Peripheral vascular disease (Chronic) SOB (shortness of breath) (Chronic) Allergies/Adverse Reactions: Allergies codeine Allergy (Unknown, Verified 03/30/18 05:15) Unknown lithium Allergy (Unknown, Verified 03/30/18 05:15) Unknown morphine Allergy (Unknown, Verified 03/30/18 05:15) Unknown naproxen [From Naprosyn] Allergy (Unknown, Verified 03/30/18 05:15) Unknown phenobarbital Allergy (Unknown, Verified 03/30/18 05:15) Unknown Sulfa (Sulfonamide Antibiotics) Allergy (Unknown, Verified 03/30/18 05:15) Unknown albuterol Allergy (Verified 03/30/18 05:15) Rash fentanyl Adverse Reaction (Severe, Verified 03/30/18 05:15) Other OD on Fentany patch. Very sensitive to does 75mcg patch Iodine and Iodide Containing Produc Adverse Reaction (Verified 03/30/18 05:15) Unknown Penicillins [PCN] Adverse Reaction (Verified 03/30/18 05:15) Unknown Home Medications: Ambulatory Orders Medication Instructions Recorded Amlodipine [Norvasc] 5 mg PO DAILY 07/13/14 Atorvastatin Calcium [Lipitor] 80 mg PO QHS 07/13/14 Cyclobenzaprine [Flexeril] 10 mg PO DAILY 07/13/14 Fenofibrate [Tricor] 145 mg PO DAILY 07/13/14 Gabapentin [Neurontin] 600 mg PO TIDCM 07/13/14 Fluticasone/Vilanterol [Breo 1 ea IH DAILY 12/17/16 Ellipta 200-25 Mcg INH] Paroxetine HCl [Paxil] 40 mg PO DAILY 12/17/16 diphenhydramine 25 mg tablet 25 mg PO Q6H PRN 03/20/17 nitroglycerin 0.4 mg sublingual 0.4 mg SUBLINGUAL Q5M PRN #25 tab 03/25/17 tablet ranolazine ER 500 mg 500 mg PO BID #180 tab 03/25/17 tablet,extended release,12 hr losartan 50 mg tablet 50 mg PO DAILY #90 tab 10/17/17 clopidogrel 75 mg tablet 75 mg PO DAILY #90 tab 10/23/17 Cholecalciferol (Vitamin D3) 50,000 unit PO QWEEK 11/23/17 [Vitamin D3] Levalbuterol HCl 0.63 mg INHALATION 4X/DAY PRN 11/23/17 Pantoprazole Sodium [Protonix] 20 mg PO BID 11/23/17 buPROPion SR [Wellbutrin SR (150mg 150 mg PO DAILY 09/22/18 tablets)] tiotropium bromide 2.5 2 puff INHALATION QDAY #1 ea 12/10/17 mcg/actuation mist for inhalation isosorbide mononitrate ER 60 mg 90 mg PO DAILY tab 12/11/17 tablet,extended release 24 hr albuterol sulfate HFA 90 2 puff INHALATION Q6H PRN #18 g 01/29/18 mcg/actuation aerosol inhaler Aspirin [Aspirin, Baby] 81 mg PO DAILY@0800 03/30/18 Atrovent Hfa 2 puff IH 4X/DAY 03/30/18 Metoprolol Tartrate 25 mg PO BID 03/30/18 - Social History Tobacco Use: cigarettes Vital Signs Temp Pulse Resp BP Pulse Ox 100.6 F H 65 16 118/65 96 04/01/18 06:00 04/01/18 06:35 04/01/18 06:35 04/01/18 06:00 04/01/18 06:27 Oxygen Delivery Method Mechanical Ventilator Weight: 76.2 kg Body Mass Index (BMI) 28.2 Microbiology Past 72 Hours 03/31/18 12:30 Gram Stain - Final Sputum, Induced/Lukens Respiratory Culture - Preliminary Culture exhibits no growth. 03/30/18 08:50 Gram Stain - Final Sputum, Induced/Lukens Respiratory Culture - Final 03/31/18 11:15 Respiratory Panel (PCR) - Final Mucosa - Nose 03/30/18 08:50 Respiratory Panel (PCR) - Final Mucosa - Nasopharyngeal Laboratory Tests Past 24 Hrs 03/31/18 04/01/18 04/01/18 09:25 03:40 03:40 WBC 18.5 H RBC 4.74 Hgb 13.5 Hct 42.6 MCV 89.9 MCH 28.5 MCHC 31.7 L RDW 14.6 RDW Differential 47.1 H Plt Count 263 MPV 10.6 Sodium 135 L Potassium 4.3 Chloride 107 Carbon Dioxide 17.0 L Anion Gap 11 BUN 33 H Creatinine 1.08 H Estim Creat Clear Calc 38.38 Est GFR (MDRD) Af Amer 64 Est GFR (MDRD) Non-Af 53 L BUN/Creatinine Ratio 30.6 H Glucose 141 H Calcium 7.8 L Magnesium 2.2 Total Creatine Kinase B-Natriuretic Peptide Triglycerides MRSA (PCR) Negative 04/01/18 04/01/18 03:40 10:30 WBC RBC Hgb Hct MCV MCH MCHC RDW RDW Differential Plt Count MPV Sodium Potassium Chloride Carbon Dioxide Anion Gap BUN Creatinine Estim Creat Clear Calc Est GFR (MDRD) Af Amer Est GFR (MDRD) Non-Af BUN/Creatinine Ratio Glucose Calcium Magnesium Total Creatine Kinase Pending B-Natriuretic Peptide Pending Triglycerides Pending MRSA (PCR) - Other Studies Radiology: [] reviewed Other Studies: [] Route of nutrition/ use of supplements: [] Nutritional Intake: [] IV Site: [] Burk Catheter: [] - Physical Exam General: - - intubated, sedated HEENT: Atraumatic, PERRLA, EOMI Neck: Supple, No Nodes Lungs: Clear to auscultation, Normal air movement Cardiovascular: Regular rate, Regular Rhythm, No murmurs Abdomen: Soft, Non Tender, Non-Distended Extremities: No edema Skin: No rashes, - - no splinter hemorrhages IV Site: PICC, without redness Musculoskeletal: No Tenderness to Palpation of Joints or Extremities - Assessment/Plan Antibiotics: [] Assessment/Plan: [] septic shock - suspected due to CAP. Worsened overnight, vanc added, picc placed, bcx repeated. Repeat sputum cx with GPC in clusters seen on gram stain. Cont vanc/zosyn, will follow cx results. Pt also had complained of some diarrhea and abd pain in past few days. Soft stool last night, no diarrhea reported per nursing. No abd guarding or pain on exam. Will check CT chest/abd/pelvis. Will follow, thank you.
--- NOTE | 2018-04-01 11:25 | CT_ITS ---
STUDY: CT CHEST WITH CONTRAST REASON FOR EXAM: Female, 73 years old. Cough. Septic shock. Diarrhea. RADIATION DOSAGE (If Supplied By Facility): CTDIvol = ( 19.33 ) mGy, DLP = ( 2021.48 ) mGycm TECHNIQUE: Transaxial imaging was performed following intravenous administration of 100mL ml of Isovue 300 contrast material. Multiplanar coronal and sagittal images were reformatted. Individualized dose optimization techniques were used for this CT. COMPARISON: Comparison is made with prior chest radiograph done earlier today. FINDINGS: An endotracheal tube is in situ. An enteric tube is seen as well. There is evidence of emphysematous changes in both lungs worse in the upper lobes. There is thickening along the lateral aspect of the left major fissure suggestive of fluid. There is diffuse increased interstitial markings throughout the lungs worse at the lung bases with areas of coalescence at the bases suggestive of chronic interstitial fibrosis with bibasilar atelectasis and/or infiltrate. Small bilateral pleural effusions. There are calcifications of the coronary arteries. There is a 2.3 cm lymph node in the precarinal space. Normal hilar regions. Normal enhanced pulmonary arteries. There is atherosclerotic calcification of the aortic arch with tortuosity and elongation of the aortic arch and descending thoracic aorta. There are multi-level degenerative changes of the thoracic spine. Sludge or small gallstones along the dependent portion of the gallbladder lumen. CT/Chest WITH Contrast IMPRESSION: Findings suggestive of emphysema with scarring as described. Findings are suggestive of atelectasis and/or early infiltrates at the lung bases. Electronically Signed: Marcos Lee MD at 14:53 EST , Service support ,
--- NOTE | 2018-04-01 11:26 | CT_ITS ---
STUDY: CT ABDOMEN AND PELVIS WITH CONTRAST REASON FOR EXAM: Female, 73 years old. Cutoff. Septic shock and diarrhea. RADIATION DOSAGE (If Supplied By Facility): CTDIvol = ( 19.33 ) mGy, DLP = ( 2021.48 ) mGycm TECHNIQUE: Transaxial images were obtained from the dome of the diaphragm to the symphysis pubis with oral contrast. 100mL ml of Isovue 300 contrast was administered. Sagittal and coronal images were reconstructed. Individualized dose optimization techniques were used for this CT. COMPARISON: None. FINDINGS: Small bilateral pleural effusions with bibasilar atelectasis and/or infiltrate superimposed on chronic changes. I suspect small emboli in the branches of the right and left lower lobe pulmonary arterial branches. Coronary artery calcification. Normal liver. Sludge or small gallstones in the gallbladder lumen. Mildly distended gallbladder. I suspect a small amount of perihepatic cholecystic fluid. Normal spleen. There is diffuse atrophy of the pancreas. Normal bilateral adrenal glands. Normal right kidney. Normal left kidney. A normal gastric tube is seen with the tip in the body of the stomach. There is evidence of a diverticulum in the second portion of the duodenum. There are multiple colonic diverticula consistent with diverticulosis. The appendix is visualized and appears normal. There is diffuse atherosclerotic calcification of the abdominal aorta. There is evidence of a fusiform infrarenal abdominal aortic aneurysm with a transverse dimension of 2.9 cm. Mural thrombus is seen. Normal inferior vena cava. Normal retroperitoneum. A Burk catheter is seen within the bladder. The bladder is empty. Small amount of fluid in the pelvis. Normal abdominal wall. There are diffuse degenerative changes of the visualized lumbar spine. CT/Abdomen/Pelvis WITH Contrast IMPRESSION: Scarring at the lung bases with evidence of atelectasis and/or infiltrates with small bilateral effusions. Small bone emboli seen in the branches of the right and left lower lobe pulmonary artery. Slight distention of the gallbladder with small stones or sludge along the dependent portion of the gallbladder with a small amount of pericholecystic fluid. Infrarenal abdominal aortic aneurysm with a transverse dimension of 2.9 cm. Electronically Signed: Marcos Lee MD at 14:59 EST , Service support ,
--- NOTE | 2018-04-01 11:27 | PCM.PN.CARD ---
Subjectve: The patient remains mechanically intubated and ventilated. She was noted to have a fever of approximately 102.8. There was concerns of associated sepsis. She has required continued intubation, IV vasopressor support, IV antibiotics, as well as now in infectious disease consultation. Objective: Vital Signs Temp Pulse Resp BP Pulse Ox 100.6 F H 65 16 118/65 96 04/01/18 06:00 04/01/18 06:35 04/01/18 06:35 04/01/18 06:00 04/01/18 06:27 Oxygen Delivery Method Mechanical Ventilator Weight: 167 lb 15.876 oz Body Mass Index (BMI) 28.2 Intake and Output for Last 24 Hours 03/30/18 03/31/18 04/01/18 23:59 23:59 23:59 Intake Total 1162.7 / 1162.7 4934.2 / 4934.2 898.2 / 898.2 Output Total 675 / 675 700 / 700 275 / 275 Balance 487.7 / 487.7 4234.2 / 4234.2 623.2 / 623.2 General: Ill Appearing Neck: No JVD Lungs: Rhonchi - Scattered Cardiovascular: Regular Rhythm, Normal S1, Normal S2 Abdomen: Bowel Sounds Present, Soft 04/01/18 03:40: WBC 18.5 H, RBC 4.74, Hgb 13.5, Hct 42.6, MCV 89.9, MCH 28.5, MCHC 31.7 L, RDW 14.6, RDW Differential 47.1 H, Plt Count 263, MPV 10.6 04/01/18 03:40: Sodium 135 L, Potassium 4.3, Chloride 107, Carbon Dioxide 17.0 L, Anion Gap 11, BUN 33 H, Creatinine 1.08 H, Est GFR (MDRD) Af Amer 64, Est GFR (MDRD) Non-Af 53 L, BUN/Creatinine Ratio 30.6 H, Glucose 141 H, Calcium 7.8 L, Magnesium 2.2 04/01/18 03:40: Triglycerides Cancelled Rhythm:Sinus rhythm EKG:Sinus rhythm ; T-wave abnormality compatible with myocardial ischemia-anterior/lateral/inferior ECHO:Please see official report CXR:Preliminary evaluation: Concerns of increased infiltrate/interstitial changes; increased pulmonary vascularity cannot necessarily be excluded; official report pending Medical Necessity - Tobacco Use Smoking Status: Current every day smoker Assessment/Plan 1. Non ST segment elevation [place] The patient presents with an underlying COPD exacerbation requiring mechanical intubation/ventilation. During this time she has been noted to have indeterminate troponin levels and abnormal ECG changes with dynamic T-wave changes. Her transthoracic echocardiogram was performed. She was noted to have left ventricular regional wall motion abnormalities and mildly diminished LV systolic function. Her findings were potentially compatible with Takotsubo syndrome. However contribution from her underlying CAD process cannot necessarily be excluded. At the present time she is being followed. She will continue to be monitored. Her ECG can be followed. She will need continued multidisciplinary evaluation care as she remains intubated, with fevers, concerns of sepsis, requiring IV antibiotics, an infectious disease consultation for further evaluation and care. She will need to be considered for a future evaluation with diagnostic cardiac catheterization hopefully when her clinical course improves. 2. CAD status post PCI (left main and RCA) At the present time she has not complained of ongoing symptoms of chest discomfort. Her main concern has been her respiratory status. She has been found to have the aforementioned concerns. She will continue to be monitored, continue medical therapy, and continue future evaluation which may include repeat diagnostic cardiac catheterization when she is able. In the interim, with respect to medications, based upon her low blood pressure and requirement of IV vasopressors support she is not an ideal candidate for agents such as nitrates, beta blockers, afterload reducing agents, etc. 3. Hyperlipidemia She will continue medical management. 4. Hypertension Her blood pressures will be followed. She will continue medical therapy. 5. COPD exacerbation She continues evaluation care per pulmonology/critical care medicine. This note was generated using a voice recognition system and there may be incorrect words, spelling or punctuation that were not noted when reviewing the office note prior to saving.
--- NOTE | 2018-04-01 11:33 | PN.CARD_ITS ---
Subjectve: The patient remains mechanically intubated and ventilated. She was noted to have a fever of approximately 102.8. There was concerns of associated sepsis. She has required continued intubation, IV vasopressor support, IV antibiotics, as well as now in infectious disease consultation. Objective: Vital Signs Temp Pulse Resp BP Pulse Ox 100.6 F H 65 16 118/65 96 04/01/18 06:00 04/01/18 06:35 04/01/18 06:35 04/01/18 06:00 04/01/18 06:27 Oxygen Delivery Method Mechanical Ventilator Weight: 167 lb 15.876 oz Body Mass Index (BMI) 28.2 Intake and Output for Last 24 Hours 03/30/18 03/31/18 04/01/18 23:59 23:59 23:59 Intake Total 1162.7 / 1162.7 4934.2 / 4934.2 898.2 / 898.2 Output Total 675 / 675 700 / 700 275 / 275 Balance 487.7 / 487.7 4234.2 / 4234.2 623.2 / 623.2 General: Ill Appearing Neck: No JVD Lungs: Rhonchi - Scattered Cardiovascular: Regular Rhythm, Normal S1, Normal S2 Abdomen: Bowel Sounds Present, Soft 04/01/18 03:40: WBC 18.5 H, RBC 4.74, Hgb 13.5, Hct 42.6, MCV 89.9, MCH 28.5, MCHC 31.7 L, RDW 14.6, RDW Differential 47.1 H, Plt Count 263, MPV 10.6 04/01/18 03:40: Sodium 135 L, Potassium 4.3, Chloride 107, Carbon Dioxide 17.0 L , Anion Gap 11, BUN 33 H, Creatinine 1.08 H, Est GFR (MDRD) Af Amer 64, Est GFR (MDRD) Non-Af 53 L, BUN/Creatinine Ratio 30.6 H, Glucose 141 H, Calcium 7.8 L, Magnesium 2.2 04/01/18 03:40: Triglycerides Cancelled Rhythm:Sinus rhythm EKG:Sinus rhythm ; T-wave abnormality compatible with myocardial ischemia-anter ior/lateral/inferior ECHO:Please see official report CXR:Preliminary evaluation: Concerns of increased infiltrate/interstitial changes; increased pulmonary vascularity cannot necessarily be excluded; official report pending Medical Necessity - Tobacco Use Smoking Status: Current every day smoker Assessment/Plan 1. Non ST segment elevation [place] The patient presents with an underlying COPD exacerbation requiring mechanical intubation/ventilation. During this time she has been noted to have indeterminate troponin levels and abnormal ECG changes with dynamic T-wave changes. Her transthoracic echocardiogram was performed. She was noted to have left ventricular regional wall motion abnormalities and mildly diminished LV systolic function. Her findings were potentially compatible with Takotsubo syndrome. However contribution from her underlying CAD process cannot necessarily be excl uded. At the present time she is being followed. She will continue to be monitored. Her ECG can be followed. She will need continued multidisciplinary evaluation care as she remains intubated, with fevers, concerns of sepsis, requiring IV antibiotics, an infectious disease consultation for further evaluation and care. She will need to be considered for a future evaluation with diagnostic cardiac catheterization hopefully when her clinical course improves. 2. CAD status post PCI (left main and RCA) At the present time she has not complained of ongoing symptoms of chest discomfort. Her main concern has been her respiratory status. She has been found to have the aforementioned concerns. She will continue to be monitored, continue medical therapy, and continue future evaluation which may include repeat diagnostic cardiac catheterization when she is able. In the interim, with respect to medications, based upon her low blood pressure and requirement of IV vasopressors support she is not an ideal candidate for agents such as nitrates, beta blockers, afterload reducing agents, etc. 3. Hyperlipidemia She will continue medical management. 4. Hypertension Her blood pressures will be followed. She will continue medical therapy. 5. COPD exacerbation She continues evaluation care per pulmonology/critical care medicine. This note was generated using a voice recognition system and there may be incorrect words, spelling or punctuation that were not noted when reviewing the office note prior to saving.
[2018-04-01] MEDS: 0.9% NaCl Peripheral Flush Adult/Peds IV ×8 (11:34→23:39)
[2018-04-01] MEDS: Aspirin 81 MG TAB.CHEW GT (11:35)
[2018-04-01] MEDS: Chlorhexidine 15 ML PO ×2 (11:36→22:03)
[2018-04-01] MEDS: Enoxaparin 40 MG/0.4 ML Syringe SC (11:36)
[2018-04-01] MEDS: QUEtiapine 25 MG Tablet GT (11:37)
[2018-04-01] MEDS: Clopidogrel Bisulfate 75 MG Tablet GT (11:37)
[2018-04-01] MEDS: Famotidine 20 MG Tablet GT ×2 (11:37→22:03)
[2018-04-01 11:39] LABS: BNP,B-Type NATRIURETIC PEPTIDE 996.7 pg/mL (0-100)
[2018-04-01 12:25] LABS: Bedside Glucose 169 mg/dL (70-110)
[2018-04-01] MEDS: DiphenhydrAMINE 12.5 MG/5 ML UDC 50 MG GT (13:30)
[2018-04-01] MEDS: 0.9% NaCl IVPB Med Flush (250 mL) 15 ML IV (14:58)
--- NOTE | 2018-04-01 15:17 | EKG12_ITS ---
Test Reason : MORNING EKG Blood Pressure : / mmHG Vent. Rate : 100 BPM Atrial Rate : 100 BPM P-R Int : 150 ms QRS Dur : 082 ms QT Int : 410 ms P-R-T Axes : 084 053 218 degrees QTc Int : 528 ms Normal sinus rhythm ST & Marked T wave abnormality, consider anterolateral ischemia ST& marked T wave abnormality, consider inferior ischemia Prolonged QT Abnormal ECG Confirmed by PILAR IVEY, BETINA ([id number]), editorial manager MACKENZIE TORRES ([id number]) on 04/03/2018 8:39:27 AM Referred By: COLT Confirmed By:BETINA QUEZADA MD
[2018-04-01 15:39] LABS: CPK Total, Creatine Kinase 67 U/L (26-192); Triglycerides 330 mg/dL
[2018-04-01 17:41] LABS: Bedside Glucose 207 mg/dL (70-110)
[2018-04-01 17:56] LABS: Prothrombin Time (Protime)PT. 13.2 SECONDS (11.7-14.9)
[2018-04-01 17:57] LABS: Partial Thromboplast Time 31.3 Seconds (24.1-36.2)
[2018-04-01] MEDS: HEPARIN/D5w 25,000 UNITS 25,000 UNITS/250 ML IV.SOLN. 11 UNITS IV (17:58)
[2018-04-01] MEDS: Atorvastatin Calcium 80 MG Tablet PO (22:04)
[2018-04-01 23:55] LABS: Bedside Glucose 165 mg/dL (70-110)
[2018-04-02] VITALS (36 sets, daily range): BP systolic 87–160; BP diastolic 55–87; PULSE 79–129; RESP 12–31; TEMP 37.2–38.2; O2SAT 40–99
[2018-04-02 00:04] LABS: Partial Thromboplast Time 67.3 Seconds (24.1-36.2)
[2018-04-02] MEDS: LEVALBUTEROL HCL 0.63 MG/3 ML VIAL.NEB IH ×3 (02:10→21:05)
[2018-04-02 05:22] LABS: Hematocrit 32.5 % (37-47); Hemoglobin 10.4 g/dl (12.0-15.0); Mean Corpuscular Hgb 28.6 pg (27.0-32.0); Mean Corpuscular Volume 89.3 fL (81-99); Mean Platelet Vol. 10.6 fl (6.2-12.0); Platelet Count 233 K/mm3 (150-450); RBC Distribution Width CV 14.5 % (11.6-14.6); Red Blood Count 3.64 M/mm3 (4.2-5.4)
[2018-04-02 05:24] LABS: Scan Indicated on CBC? Y/N NO
[2018-04-02 05:27] LABS: Partial Thromboplast Time 78.1 Seconds (24.1-36.2)
[2018-04-02 05:42] LABS: Anion Gap 9 (5-15); BUN 22 mg/dL (7-18); BUN/Creat Ratio 24.8 RATIO (10-20); Chloride 109 mmol/L (98-107); Creatinine, Serum 0.89 mg/dL (0.55-1.02); EST Glomerular Filtration Rate 66 mL/min (>60); Est Glom Filt Rate - Afr Amer 80 mL/min (>60); Estimated Creatinine Clearance 46.57 ml/min; Glucose 173 mg/dL (74-106); Potassium 3.6 mmol/L (3.5-5.1); Sodium Level 142 mmol/L (136-145)
[2018-04-02] MEDS: Insulin Lispro 100 UNIT/ML INSULN.PEN SC (05:59)
[2018-04-02 06:20] LABS: Bedside Glucose 150 mg/dL (70-110)
[2018-04-02] MEDS: Piperacil/Tazobactam 3.375 GM/50 ML ML IV ×3 (06:34→22:45)
--- NOTE | 2018-04-02 06:42 | PCM.PN.INT ---
Subjective: The patient was seen and examined at the bedside this morning. Events from the last 24 hours have been reviewed. The patient is currently afebrile, hemodynamically stable and maintaining appropriate oxygen saturations on spontaneous mode mechanical ventilation with an FiO2 requirement of 40%. The patient's fever curve is improving. She is currently on a CPAP trial and doing well. Her leukocytosis has now resolved. CT imaging of her chest, abdomen and pelvis was completed yesterday. In response to pulmonary emboli identified on CT chest, the patient was started on a continuous heparin drip. She is currently overall net +6.1 L for the admission. The patient's Levophed has been off all night. She remains hemodynamically stable. The patient is currently alert, cooperative and following commands appropriately. Objective: The patient's most recent lab work, culture data and imaging studies have all been personally reviewed. Blood cultures are pending. Respiratory viral panel was negative. Initial sputum culture dated March 30 appears to be normal respiratory damien. Gram stain from repeat sputum culture dated March 31 revealed rare gram-positive cocci in clusters. Surface echocardiogram completed March 31 revealed mild segmental systolic dysfunction with an ejection fraction of 45%. Right ventricular systolic pressure was estimated to be 39 mmHg. 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 A 6-minute walk test completed March 2018 revealed the need for 3 L/min of supplemental oxygen with any exertion. General: Alert, Cooperative, - - Remains intubated and mechanically ventilated. Currently tolerating CPAP mode mechanical ventilation. HEENT: Atraumatic, PERRLA, Normocephalic Oral: No Gingival or Mucosal Lesions/ Ulcerations, - - Endotracheal and OG tubes remain in place. Neck: Supple, No Nodes, Trachea Midline Lungs: - - Coarse mechanical breath sounds anteriorly with bilateral end expiratory wheezing Cardiovascular: Normal S1, Normal S2, No murmurs, Tachycardic Abdomen: Bowel Sounds Present, Soft, Non Tender Extremities: No clubbing, No cyanosis, No edema Skin: - - No significant change from previous Musculoskeletal: No Tenderness to Palpation of Joints or Extremities Lymphatic: No Cervical, Supraclavicular, or Inguinal Adenopathy Neurological: Neuro grossly intact, - - Alert and following commands appropriately. Psych/Mental Status: Anxious Vital Signs Temp Pulse Resp BP Pulse Ox 37.6 C H 115 H 18 148/64 H 97 04/02/18 04:00 04/02/18 06:40 04/02/18 06:40 04/02/18 06:00 04/02/18 06:40 Oxygen Delivery Method Mechanical Ventilator Weight: 166 lb 7.184 oz Body Mass Index (BMI) 28.2 Intake and Output for Last 24 Hours 03/31/18 04/01/18 04/02/18 23:59 23:59 23:59 Intake Total 4934.2 / 4934.2 2438.8 / 2438.8 1622 / 1622 Output Total 700 / 700 1675 / 1675 1000 / 1000 Balance 4234.2 / 4234.2 763.8 / 763.8 622 / 622 Labs (Last 48 Hours) 03/30/18 03/31/18 03/31/18 04:44 09:25 11:13 WBC RBC Hgb Hct MCV MCH MCHC RDW RDW Differential Plt Count MPV PT INR APTT Sodium Potassium Chloride Carbon Dioxide Anion Gap BUN Creatinine Estim Creat Clear Calc Est GFR (MDRD) Af Amer Est GFR (MDRD) Non-Af BUN/Creatinine Ratio Glucose Calcium Magnesium Total Creatine Kinase B-Natriuretic Peptide Triglycerides MRSA (PCR) Negative POC Glucose 275 H 143 H 03/31/18 03/31/18 04/01/18 17:29 23:36 03:40 WBC 18.5 H RBC 4.74 Hgb 13.5 Hct 42.6 MCV 89.9 MCH 28.5 MCHC 31.7 L RDW 14.6 RDW Differential 47.1 H Plt Count 263 MPV 10.6 PT INR APTT Sodium Potassium Chloride Carbon Dioxide Anion Gap BUN Creatinine Estim Creat Clear Calc Est GFR (MDRD) Af Amer Est GFR (MDRD) Non-Af BUN/Creatinine Ratio Glucose Calcium Magnesium Total Creatine Kinase B-Natriuretic Peptide Triglycerides MRSA (PCR) POC Glucose 296 H 144 H 04/01/18 04/01/18 04/01/18 03:40 03:40 05:32 WBC RBC Hgb Hct MCV MCH MCHC RDW RDW Differential Plt Count MPV PT INR APTT Sodium 135 L Potassium 4.3 Chloride 107 Carbon Dioxide 17.0 L Anion Gap 11 BUN 33 H Creatinine 1.08 H Estim Creat Clear Calc 38.38 Est GFR (MDRD) Af Amer 64 Est GFR (MDRD) Non-Af 53 L BUN/Creatinine Ratio 30.6 H Glucose 141 H Calcium 7.8 L Magnesium 2.2 Total Creatine Kinase Cancelled B-Natriuretic Peptide Triglycerides Cancelled MRSA (PCR) POC Glucose 168 H 04/01/18 04/01/18 04/01/18 10:30 12:09 15:05 WBC RBC Hgb Hct MCV MCH MCHC RDW RDW Differential Plt Count MPV PT INR APTT Sodium Potassium Chloride Carbon Dioxide Anion Gap BUN Creatinine Estim Creat Clear Calc Est GFR (MDRD) Af Amer Est GFR (MDRD) Non-Af BUN/Creatinine Ratio Glucose Calcium Magnesium Total Creatine Kinase 67 B-Natriuretic Peptide 996.7 H Triglycerides 330 H MRSA (PCR) POC Glucose 169 H 04/01/18 04/01/18 04/01/18 17:25 17:34 23:37 WBC RBC Hgb Hct MCV MCH MCHC RDW RDW Differential Plt Count MPV PT 13.2 INR 1.0 APTT 31.3 Sodium Potassium Chloride Carbon Dioxide Anion Gap BUN Creatinine Estim Creat Clear Calc Est GFR (MDRD) Af Amer Est GFR (MDRD) Non-Af BUN/Creatinine Ratio Glucose Calcium Magnesium Total Creatine Kinase B-Natriuretic Peptide Triglycerides MRSA (PCR) POC Glucose 207 H 165 H 04/01/18 04/02/18 04/02/18 23:45 05:00 05:00 WBC 9.0 RBC 3.64 L Hgb 10.4 L Hct 32.5 L MCV 89.3 MCH 28.6 MCHC 32.0 RDW 14.5 RDW Differential 46.0 H Plt Count 233 MPV 10.6 PT INR APTT 67.3 H Sodium 142 Potassium 3.6 Chloride 109 H Carbon Dioxide 24.0 Anion Gap 9 BUN 22 H Creatinine 0.89 Estim Creat Clear Calc 46.57 Est GFR (MDRD) Af Amer 80 Est GFR (MDRD) Non-Af 66 BUN/Creatinine Ratio 24.8 H Glucose 173 H Calcium 8.0 L Magnesium Total Creatine Kinase B-Natriuretic Peptide Triglycerides MRSA (PCR) POC Glucose 04/02/18 04/02/18 05:00 05:56 WBC RBC Hgb Hct MCV MCH MCHC RDW RDW Differential Plt Count MPV PT INR APTT 78.1 H Sodium Potassium Chloride Carbon Dioxide Anion Gap BUN Creatinine Estim Creat Clear Calc Est GFR (MDRD) Af Amer Est GFR (MDRD) Non-Af BUN/Creatinine Ratio Glucose Calcium Magnesium Total Creatine Kinase B-Natriuretic Peptide Triglycerides MRSA (PCR) POC Glucose 150 H Microbiology 03/30/18 06:45 Blood Culture (Wb) - Left Hand Blood Culture - Preliminary No growth in 48 hours. 03/30/18 06:47 Blood Culture (Wb) - Right Hand Blood Culture - Preliminary No growth in 48 hours. 03/31/18 12:30 Sputum, Induced/Lukens Gram Stain - Final 03/31/18 12:30 Sputum, Induced/Lukens Respiratory Culture - Preliminary Culture exhibits no growth. 03/30/18 08:50 Sputum, Induced/Lukens Gram Stain - Final 03/30/18 08:50 Sputum, Induced/Lukens Respiratory Culture - Final 03/31/18 11:15 Mucosa - Nose Respiratory Panel (PCR) - Final Clinical Impression(s) from Imaging Studies Brain CT 03/30/18 04:57 IMPRESSION: 1. Negative for intracranial hemorrhage or acute intracranial disease. 2. Paranasal sinus disease and additional chronic changes, as above. Individualized dose optimization techniques were used for this CT. at 0701 Reported and signed by: Leonard Romeo MD Electronically Signed: Leonard Romeo, at 7:00 EST Tel , Service support , Chest X-Ray 03/30/18 05:06 IMPRESSION: 1. The endotracheal tube appears in good position and the NG tube tip lies at the GE junction. 2. Chronic lung disease with emphysema and interstitial fibrosis. Superimposed interstitial pulmonary edema is also suggested. at 0531 Reported and signed by: Leonard Romeo MD Electronically Signed: Leonard Romeo, at 5:51 EST Tel , Service support , Chest X-Ray 04/01/18 06:51 IMPRESSION: Stable examination. Electronically Signed: Marcos Lee MD at 13:25 EST , Service support , Chest CT 04/01/18 11:25 IMPRESSION: Findings suggestive of emphysema with scarring as described. Findings are suggestive of atelectasis and/or early infiltrates at the lung bases. Electronically Signed: Marcos Lee MD at 14:53 EST , Service support , ADDENDUM: 04/01/18 1507 Abdomen/Pelvis CT 04/01/18 11:26 IMPRESSION: Scarring at the lung bases with evidence of atelectasis and/or infiltrates with small bilateral effusions. Small bone emboli seen in the branches of the right and left lower lobe pulmonary artery. Slight distention of the gallbladder with small stones or sludge along the dependent portion of the gallbladder with a small amount of pericholecystic fluid. Infrarenal abdominal aortic aneurysm with a transverse dimension of 2.9 cm. Electronically Signed: Marcos Lee MD at 14:59 EST , Service support , Medical Necessity - Tobacco Use Smoking Status: Current every day smoker Assessment/Plan All Active Problems (Last Reviewed 03/06/18 @ 06:35 by Deanna Coker) Acute respiratory failure with hypoxia and hypercapnia (Acute) COPD with acute exacerbation (Acute) Gram-negative pneumonia (Acute) Acute hypercapnic respiratory failure (Acute) NSTEMI (non-ST elevated myocardial infarction) (Acute) COPD exacerbation (Acute) Congestive heart failure (Acute) RECOMMENDATIONS: 1. Proceed with a trial of extubation this morning. The patient will be transitioned directly to AVAPS following extubation. 2. If the patient does well on noninvasive positive pressure ventilation for several hours, she can be weaned to supplemental oxygen via nasal cannula. 3. Continue heparin drip as ordered. The patient will be transitioned to an oral anticoagulation regimen, once cardiac catheterization has been completed. 4. Continue antibiotics per infectious diseases discretion. 5. Continue bronchodilators and IV steroids. The patient can likely be transitioned to prednisone beginning tomorrow. 6. Start IV Lasix today. 7. Perform swallow evaluation and advance diet accordingly. 8. Physical therapy to work with patient today. 9. Tentative plans for cardiac catheterization tomorrow morning. IMPRESSIONS: 1. Acute on chronic combined respiratory failure likely secondary to COPD with exacerbation The patient does have known severe COPD, based upon recent pulmonary function studies from February 2018. In addition, a recent 6-minute walk test revealed the need for 3 L/min with exertion at her baseline. The patient does have an extensive smoking history and continues to smoke daily. The patient's initial chest imaging studies did reveal chronic interstitial changes without focal consolidation. However, she was noted to have copious sputum production. A follow-up CT chest did reveal findings which could represent bibasilar airspace disease. The patient has been maintained on broad-spectrum antibiotics under the discretion of infectious diseases. In addition, she will be continued on bronchodilators along with IV steroids. At the current time, the patient is a candidate for a trial of extubation this morning. She will be transitioned to AVAPS upon extubation, with plans to continue noninvasive positive pressure ventilation for 2-3 hours this morning. If the patient does well, she can be weaned to supplemental oxygen via nasal cannula. I will plan to transition the patient steroids to prednisone beginning tomorrow. 2. Septic shock Resolved. While an underlying pulmonary infectious process is certainly a consideration, the patient's sputum cultures have not demonstrated any growth. Regardless, the patient appears to have defervesced over the last 24 hours, following the initiation of vancomycin. The patient will be continued on antimicrobials, per infectious diseases recommendations. 3. Pulmonary emboli Recent CT chest did reveal evidence of bilateral pulmonary emboli, for which the patient was initiated on a continuous heparin infusion. Once stability has been ensured and the patient's respiratory status, will consider transition to oral anticoagulation regimen. 4. Systolic heart failure/pulmonary hypertension/troponin elevation Cardiology is currently following to assist with medical management. Now that the patient's hemodynamics have stabilized, I would recommend starting IV Lasix given that the patient is overall net positive for the hospital admission thus far. There are tentative plans for cardiac catheterization tomorrow morning. 5. Acute kidney injury Resolved. Likely prerenal in etiology. Creatinine has improved with time. Continue to monitor urine output. There is no current indication for renal replacement therapy. 6. Continuous tobacco dependence/hypertension/hyperlipidemia/peripheral vascular disease Complicates care, management, recovery and prognosis. As noted above, the patient will be started on Lasix today. Continue nicotine replacement therapy. Physical therapy to work with patient today. TIME: 45 minutes of critical care time, independent of procedures, was spent addressing the patient's acute on chronic combined respiratory failure, COPD exacerbation, pulmonary emboli, septic shock, systolic heart failure, pulmonary hypertension, acute kidney injury, review of all data and collaboration with the care team. ([id number]) Code Visit [id number]: [id number] Critical care first hour
--- NOTE | 2018-04-02 06:45 | PN_ITS ---
Subjective: The patient was seen and examined at the bedside this morning. Events from the last 24 hours have been reviewed. The patient is currently afebrile, hemodynamically stable and maintaining appropriate oxygen saturations on spontaneous mode mechanical ventilation with an FiO2 requirement of 40%. The patient's fever curve is improving. She is currently on a CPAP trial and doing well. Her leukocytosis has now resolved. CT imaging of her chest, abdomen and pelvis was completed yesterday. In response to pulmonary emboli identified on CT chest, the patient was started on a continuous heparin drip. She is currently overall net +6.1 L for the admission. The patient's Levophed has been off all night. She remains hemodynamically stable. The patient is currently alert, cooperative and following commands appropriately. Objective: The patient's most recent lab work, culture data and imaging studies have all been personally reviewed. Blood cultures are pending. Respiratory viral panel was negative. Initial sputum culture dated March 30 appears to be normal respiratory damien. Gram stain from repeat sputum culture dated March 31 revealed rare gram-positive cocci in clusters. Surface echocardiogram completed March 31 revealed mild segmental systolic dysfunction with an ejection fraction of 45%. Right ventricular systolic pressure was estimated to be 39 mmHg. 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 A 6-minute walk test completed March 2018 revealed the need for 3 L/min of supplemental oxygen with any exertion. General: Alert, Cooperative, - - Remains intubated and mechanically ventilated. Currently tolerating CPAP mode mechanical ventilation. HEENT: Atraumatic, PERRLA, Normocephalic Oral: No Gingival or Mucosal Lesions/ Ulcerations, - - Endotracheal and OG tubes remain in place. Neck: Supple, No Nodes, Trachea Midline Lungs: - - Coarse mechanical breath sounds anteriorly with bilateral end expiratory wheezing Cardiovascular: Normal S1, Normal S2, No murmurs, Tachycardic Abdomen: Bowel Sounds Present, Soft, Non Tender Extremities: No clubbing, No cyanosis, No edema Skin: - - No significant change from previous Musculoskeletal: No Tenderness to Palpation of Joints or Extremities Lymphatic: No Cervical, Supraclavicular, or Inguinal Adenopathy Neurological: Neuro grossly intact, - - Alert and following commands appropriately. Psych/Mental Status: Anxious Vital Signs Temp Pulse Resp BP Pulse Ox 37.6 C H 115 H 18 148/64 H 97 04/02/18 04:00 04/02/18 06:40 04/02/18 06:40 04/02/18 06:00 04/02/18 06:40 Oxygen Delivery Method Mechanical Ventilator Weight: 166 lb 7.184 oz Body Mass Index (BMI) 28.2 Intake and Output for Last 24 Hours 03/31/18 04/01/18 04/02/18 23:59 23:59 23:59 Intake Total 4934.2 / 4934.2 2438.8 / 2438.8 1622 / 1622 Output Total 700 / 700 1675 / 1675 1000 / 1000 Balance 4234.2 / 4234.2 763.8 / 763.8 622 / 622 Labs (Last 48 Hours) 03/30/18 03/31/18 03/31/18 04:44 09:25 11:13 WBC RBC Hgb Hct MCV MCH MCHC RDW RDW Differential Plt Count MPV PT INR APTT Sodium Potassium Chloride Carbon Dioxide Anion Gap BUN Creatinine Estim Creat Clear Calc Est GFR (MDRD) Af Amer Est GFR (MDRD) Non-Af BUN/Creatinine Ratio Glucose Calcium Magnesium Total Creatine Kinase B-Natriuretic Peptide Triglycerides MRSA (PCR) Negative POC Glucose 275 H 143 H 03/31/18 03/31/18 04/01/18 17:29 23:36 03:40 WBC 18.5 H RBC 4.74 Hgb 13.5 Hct 42.6 MCV 89.9 MCH 28.5 MCHC 31.7 L RDW 14.6 RDW Differential 47.1 H Plt Count 263 MPV 10.6 PT INR APTT Sodium Potassium Chloride Carbon Dioxide Anion Gap BUN Creatinine Estim Creat Clear Calc Est GFR (MDRD) Af Amer Est GFR (MDRD) Non-Af BUN/Creatinine Ratio Glucose Calcium Magnesium Total Creatine Kinase B-Natriuretic Peptide Triglycerides MRSA (PCR) POC Glucose 296 H 144 H 04/01/18 04/01/18 04/01/18 03:40 03:40 05:32 WBC RBC Hgb Hct MCV MCH MCHC RDW RDW Differential Plt Count MPV PT INR APTT Sodium 135 L Potassium 4.3 Chloride 107 Carbon Dioxide 17.0 L Anion Gap 11 BUN 33 H Creatinine 1.08 H Estim Creat Clear Calc 38.38 Est GFR (MDRD) Af Amer 64 Est GFR (MDRD) Non-Af 53 L BUN/Creatinine Ratio 30.6 H Glucose 141 H Calcium 7.8 L Magnesium 2.2 Total Creatine Kinase Cancelled B-Natriuretic Peptide Triglycerides Cancelled MRSA (PCR) POC Glucose 168 H 04/01/18 04/01/18 04/01/18 10:30 12:09 15:05 WBC RBC Hgb Hct MCV MCH MCHC RDW RDW Differential Plt Count MPV PT INR APTT Sodium Potassium Chloride Carbon Dioxide Anion Gap BUN Creatinine Estim Creat Clear Calc Est GFR (MDRD) Af Amer Est GFR (MDRD) Non-Af BUN/Creatinine Ratio Glucose Calcium Magnesium Total Creatine Kinase 67 B-Natriuretic Peptide 996.7 H Triglycerides 330 H MRSA (PCR) POC Glucose 169 H 04/01/18 04/01/18 04/01/18 17:25 17:34 23:37 WBC RBC Hgb Hct MCV MCH MCHC RDW RDW Differential Plt Count MPV PT 13.2 INR 1.0 APTT 31.3 Sodium Potassium Chloride Carbon Dioxide Anion Gap BUN Creatinine Estim Creat Clear Calc Est GFR (MDRD) Af Amer Est GFR (MDRD) Non-Af BUN/Creatinine Ratio Glucose Calcium Magnesium Total Creatine Kinase B-Natriuretic Peptide Triglycerides MRSA (PCR) POC Glucose 207 H 165 H 04/01/18 04/02/18 04/02/18 23:45 05:00 05:00 WBC 9.0 RBC 3.64 L Hgb 10.4 L Hct 32.5 L MCV 89.3 MCH 28.6 MCHC 32.0 RDW 14.5 RDW Differential 46.0 H Plt Count 233 MPV 10.6 PT INR APTT 67.3 H Sodium 142 Potassium 3.6 Chloride 109 H Carbon Dioxide 24.0 Anion Gap 9 BUN 22 H Creatinine 0.89 Estim Creat Clear Calc 46.57 Est GFR (MDRD) Af Amer 80 Est GFR (MDRD) Non-Af 66 BUN/Creatinine Ratio 24.8 H Glucose 173 H Calcium 8.0 L Magnesium Total Creatine Kinase B-Natriuretic Peptide Triglycerides MRSA (PCR) POC Glucose 04/02/18 04/02/18 05:00 05:56 WBC RBC Hgb Hct MCV MCH MCHC RDW RDW Differential Plt Count MPV PT INR APTT 78.1 H Sodium Potassium Chloride Carbon Dioxide Anion Gap BUN Creatinine Estim Creat Clear Calc Est GFR (MDRD) Af Amer Est GFR (MDRD) Non-Af BUN/Creatinine Ratio Glucose Calcium Magnesium Total Creatine Kinase B-Natriuretic Peptide Triglycerides MRSA (PCR) POC Glucose 150 H Microbiology 03/30/18 06:45 Blood Culture (Wb) - Left Hand Blood Culture - Preliminary No growth in 48 hours. 03/30/18 06:47 Blood Culture (Wb) - Right Hand Blood Culture - Preliminary No growth in 48 hours. 03/31/18 12:30 Sputum, Induced/Lukens Gram Stain - Final 03/31/18 12:30 Sputum, Induced/Lukens Respiratory Culture - Preliminary Culture exhibits no growth. 03/30/18 08:50 Sputum, Induced/Lukens Gram Stain - Final 03/30/18 08:50 Sputum, Induced/Lukens Respiratory Culture - Final 03/31/18 11:15 Mucosa - Nose Respiratory Panel (PCR) - Final Clinical Impression(s) from Imaging Studies Brain CT 03/30/18 04:57 IMPRESSION: 1. Negative for intracranial hemorrhage or acute intracranial disease. 2. Paranasal sinus disease and additional chronic changes, as above. Individualized dose optimization techniques were used for this CT. at 0701 Reported and signed by: Leonard Romeo MD Electronically Signed: Leonard Romeo, at 7:00 EST Tel , Service support , Chest X-Ray 03/30/18 05:06 IMPRESSION: 1. The endotracheal tube appears in good position and the NG tube tip lies at the GE junction. 2. Chronic lung disease with emphysema and interstitial fibrosis. Superimposed interstitial pulmonary edema is also suggested. at 0586 Reported and signed by: Leonard Romeo MD Electronically Signed: Leonard Romeo, at 5:51 EST Tel , Service support , Chest X-Ray 04/01/18 06:51 IMPRESSION: Stable examination. Electronically Signed: Marcos Lee MD at 13:25 EST , Service support , Chest CT 04/01/18 11:25 IMPRESSION: Findings suggestive of emphysema with scarring as described. Findings are suggestive of atelectasis and/or early infiltrates at the lung bases. Electronically Signed: Marcos Lee MD at 14:53 EST , Service support , ADDENDUM: 04/01/18 1507 Abdomen/Pelvis CT 04/01/18 11:26 IMPRESSION: Scarring at the lung bases with evidence of atelectasis and/or infiltrates with small bilateral effusions. Small bone emboli seen in the branches of the right and left lower lobe pulmonary artery. Slight distention of the gallbladder with small stones or sludge along the dependent portion of the gallbladder with a small amount of pericholecystic fluid. Infrarenal abdominal aortic aneurysm with a transverse dimension of 2.9 cm. Electronically Signed: Marcos Lee MD at 14:59 EST , Service support , Medical Necessity - Tobacco Use Smoking Status: Current every day smoker Assessment/Plan All Active Problems (Last Reviewed 03/06/18 @ 06:35 by Deanna Coker) Acute respiratory failure with hypoxia and hypercapnia (Acute) COPD with acute exacerbation (Acute) Gram-negative pneumonia (Acute) Acute hypercapnic respiratory failure (Acute) NSTEMI (non-ST elevated myocardial infarction) (Acute) COPD exacerbation (Acute) Congestive heart failure (Acute) RECOMMENDATIONS: 1. Proceed with a trial of extubation this morning. The patient will be transitioned directly to AVAPS following extubation. 2. If the patient does well on noninvasive positive pressure ventilation for several hours, she can be weaned to supplemental oxygen via nasal cannula. 3. Continue heparin drip as ordered. The patient will be transitioned to an oral anticoagulation regimen, once cardiac catheterization has been completed. 4. Continue antibiotics per infectious diseases discretion. 5. Continue bronchodilators and IV steroids. The patient can likely be transitioned to prednisone beginning tomorrow. 6. Start IV Lasix today. 7. Perform swallow evaluation and advance diet accordingly. 8. Physical therapy to work with patient today. 9. Tentative plans for cardiac catheterization tomorrow morning. IMPRESSIONS: 1. Acute on chronic combined respiratory failure likely secondary to COPD with exacerbation The patient does have known severe COPD, based upon recent pulmonary function studies from February 2018. In addition, a recent 6-minute walk test revealed the need for 3 L/min with exertion at her baseline. The patient does have an extensive smoking history and continues to smoke daily. The patient's initial chest imaging studies did reveal chronic interstitial changes without focal consolidation. However, she was noted to have copious sputum production. A follow-up CT chest did reveal findings which could represent bibasilar airspace disease. The patient has been maintained on broad-spectrum antibiotics under the discretion of infectious diseases. In addition, she will be continued on bronchodilators along with IV steroids. At the current time, the patient is a candidate for a trial of extubation this morning. She will be transitioned to AVAPS upon extubation, with plans to continue noninvasive positive pressure ventilation for 2-3 hours this morning. If the patient does well, she can be weaned to supplemental oxygen via nasal cannula. I will plan to transition the patient steroids to prednisone beginning tomorrow. 2. Septic shock Resolved. While an underlying pulmonary infectious process is certainly a consideration, the patient's sputum cultures have not demonstrated any growth. Regardless, the patient appears to have defervesced over the last 24 hours, following the initiation of vancomycin. The patient will be continued on antimicrobials, per infectious diseases recommendations. 3. Pulmonary emboli Recent CT chest did reveal evidence of bilateral pulmonary emboli, for which the patient was initiated on a continuous heparin infusion. Once stability has been ensured and the patient's respiratory status, will consider transition to oral anticoagulation regimen. 4. Systolic heart failure/pulmonary hypertension/troponin elevation Cardiology is currently following to assist with medical management. Now that the patient's hemodynamics have stabilized, I would recommend starting IV Lasix given that the patient is overall net positive for the hospital admission thus far. There are tentative plans for cardiac catheterization tomorrow morning. 5. Acute kidney injury Resolved. Likely prerenal in etiology. Creatinine has improved with time. Continue to monitor urine output. There is no current indication for renal replacement therapy. 6. Continuous tobacco dependence/hypertension/hyperlipidemia/peripheral vascular disease Complicates care, management, recovery and prognosis. As noted above, the patient will be started on Lasix today. Continue nicotine replacement therapy. Physical therapy to work with patient today. TIME: 45 minutes of critical care time, independent of procedures, was spent a ddressing the patient's acute on chronic combined respiratory failure, COPD exacerbation, pulmonary emboli, septic shock, systolic heart failure, pulmonary hypertension, acute kidney injury, review of all data and collaboration with the care team. ([id number]) Code Visit 9xxxx: [id number] Critical care first hour
[2018-04-02] MEDS: CHLORHEXIDINE GLUC 2% CLOTH 1 EACH TOWELETTE TOPICAL (07:00)
--- NOTE | 2018-04-02 07:26 | PN_ITS ---
Subjective: Patient seen in the emergency department currently undergoing extubation. Was reported to have experienced several loose brown stools during the night Objective: GENERAL:On BiPAP HEENT: Atraumatic; ET-tube in place EYES; Anicteric, Normal Conjunctiva NECK; supple, normal thyroid, RESPIRATORY: Diminished to auscultation bilaterally, CARDIOVASCULAR: Regular S1 S2, no audible murmurs GI: soft, non-tender, normoactive bowel sounds, : No Renal angle tenderness; EXTREMITIES: No edema, no clubbing, no cyanosis. MUSCULOSKELETAL: No Joint Tenderness; NEURO: No lateralizing signs SKIN: No Rash Vitals/I&O's: Vital Signs Temp Pulse Resp BP Pulse Ox 99.7 F H 115 H 18 148/64 H 97 04/02/18 04:00 04/02/18 06:40 04/02/18 06:40 04/02/18 06:00 04/02/18 06:40 Oxygen Delivery Method Mechanical Ventilator Weight: 75.5 kg Body Mass Index (BMI) 28.2 Intake and Output for Last 24 Hours 03/31/18 04/01/18 04/02/18 23:59 23:59 23:59 Intake Total 4934.2 / 4934.2 2438.8 / 2438.8 1622 / 1622 Output Total 700 / 700 1675 / 1675 1000 / 1000 Balance 4234.2 / 4234.2 763.8 / 763.8 622 / 622 Microbiology Past 72 Hours 03/30/18 06:45 Blood Culture (Wb) - Left Hand Blood Culture - Preliminary No growth in 48 hours. 03/30/18 06:47 Blood Culture (Wb) - Right Hand Blood Culture - Preliminary No growth in 48 hours. 03/31/18 12:30 Sputum, Induced/Lukens Gram Stain - Final 03/31/18 12:30 Sputum, Induced/Lukens Respiratory Culture - Preliminary Culture exhibits no growth. 03/30/18 08:50 Sputum, Induced/Lukens Gram Stain - Final 03/30/18 08:50 Sputum, Induced/Lukens Respiratory Culture - Final 03/31/18 11:15 Mucosa - Nose Respiratory Panel (PCR) - Final 03/30/18 08:50 Mucosa - Nasopharyngeal Respiratory Panel (PCR) - Final Laboratory Results 03/30/18 04:44: POC Glucose 275 H 04/01/18 03:40: Total Creatine Kinase Cancelled, Triglycerides Cancelled 04/01/18 10:30: B-Natriuretic Peptide 996.7 H 04/01/18 12:09: POC Glucose 169 H 04/01/18 15:05: Total Creatine Kinase 67, Triglycerides 330 H 04/01/18 17:25: PT 13.2, INR 1.0, APTT 31.3 04/01/18 17:34: POC Glucose 207 H 04/01/18 23:37: POC Glucose 165 H 04/01/18 23:45: APTT 67.3 H 04/02/18 05:00: WBC 9.0, RBC 3.64 L, Hgb 10.4 L, Hct 32.5 L, MCV 89.3, MCH 28.6, MCHC 32.0, RDW 14.5, RDW Differential 46.0 H, Plt Count 233, MPV 10.6 04/02/18 05:00: Sodium 142, Potassium 3.6, Chloride 109 H, Carbon Dioxide 24.0, Anion Gap 9, BUN 22 H, Creatinine 0.89, Estim Creat Clear Calc 46.57, Est GFR (MDRD) Af Amer 80, Est GFR (MDRD) Non-Af 66, BUN/Creatinine Ratio 24.8 H, Glucose 173 H, Calcium 8.0 L 04/02/18 05:00: APTT 78.1 H 04/02/18 05:56: POC Glucose 150 H Current Medications Acetaminophen (Tylenol Liquid) 650 mg GT Q6H PRN PRN PRN Reason: FEVER Last Admin: 04/01/18 23:40 Dose: 650 mg Aspirin (Aspirin, Baby) 81 mg GT DAILY@0800 [facility] Last Admin: 04/01/18 11:35 Dose: 81 mg Atorvastatin Calcium (Lipitor) 80 mg PO QHS [facility] Last Admin: 04/01/18 22:04 Dose: 80 mg Chlorhexidine Gluconate () 15 ml PO BID [facility] Last Admin: 04/01/18 22:03 Dose: 15 ml Chlorhexidine Gluconate () 1 each TOPICAL DAILY [facility] Last Admin: 04/01/18 03:12 Dose: 1 each Clopidogrel Bisulfate (Plavix) 75 mg GT DAILY [facility] Last Admin: 04/01/18 11:37 Dose: 75 mg Famotidine (Pepcid) 20 mg GT BID [facility] Last Admin: 04/01/18 22:03 Dose: 20 mg Heparin Sodium (Porcine) (Heparin Na) 0 unit IV UD PRN; Protocol Sodium Chloride () 250 mls @ 15 mls/hr IV .[id number] PRN PRN Reason: SALINE FLUSH Last Admin: 04/01/18 14:58 Dose: 15 mls/hr Sodium Chloride () 250 mls @ 15 mls/hr IV .[id number] PRN PRN Reason: SALINE FLUSH Enteral Nutritional Formula (Vital Af 1.2 Hakan Liquid) 1,000 mls @ 60 mls/hr GT .[id number] [facility] Last Admin: 04/01/18 15:10 Dose: Not Given Piperacillin Sod/Tazobactam Sod (Zosyn) 3.375 gm in 50 mls @ 12.5 mls/hr IV Q8 [facility] Last Admin: 04/02/18 06:34 Dose: 12.5 mls/hr Fentanyl () 100 mls @ 5 mls/hr IV .Q20H [facility] Last Admin: 04/01/18 22:02 Dose: 5 mls/hr Vancomycin IV Pharmacy to Dose (1 ea/ Sodium Chloride) 500 mls @ 250 mls/hr IV X1 PRN; Protocol PRN Reason: Rx to Dose Vancomycin HCl 750 mg/ Sodium (Chloride) 265 mls @ 250 mls/hr IV Q24H [facility] Last Admin: 04/01/18 22:00 Dose: 250 mls/hr Propofol (Diprivan) 1,000 mg in 100 mls @ 4.572 mls/hr CONT INF .Q12H [facility] Last Admin: 04/01/18 22:02 Dose: 4.572 mls/hr Heparin Sodium/Dextrose () 25,000 units in 250 mls @ 11 mls/hr IV .[id number] [facility]; Protocol Last Admin: 04/01/18 17:58 Dose: 11 mls/hr Insulin Human Lispro (Humalog Kwikpen (Bkc)) 0 unit SC Q6 [facility]; Protocol Last Admin: 04/02/18 05:59 Dose: 1 units Levalbuterol HCl (Xopenex) 0.63 mg IH Q6HWA.RT [facility] Last Admin: 04/02/18 02:10 Dose: 0.63 mg Magnesium Hydroxide (Milk Of Magnesia) 30 ml PO DAILY PRN PRN PRN Reason: Constipation Methylprednisolone (Solu-Medrol) 40 mg IV Q6 NAIF Last Admin: 04/02/18 05:59 Dose: 40 mg Nicotine (Nicoderm Cq (Pbkc)) 21 mg TRANSDERM. DAILY NAIF Last Admin: 04/01/18 11:36 Dose: 21 mg Sodium Chloride () 5 - 15 ml IV UD PRN PRN Reason: SALINE FLUSH Last Admin: 04/01/18 23:39 Dose: 10 ml Medical Necessity - Tobacco Use Smoking Status: Current every day smoker Assessment/Plan All Active Problems (Last Reviewed 03/06/18 @ 06:35 by Deanna Coker) Acute respiratory failure with hypoxia and hypercapnia (Acute) COPD with acute exacerbation (Acute) Gram-negative pneumonia (Acute) Acute hypercapnic respiratory failure (Acute) NSTEMI (non-ST elevated myocardial infarction) (Acute) COPD exacerbation (Acute) Congestive heart failure (Acute) Patient is a 73-year-old lady with history of COPD who was brought in on account of progressive shortness of breath patient was intubated as a result of acute respiratory failure 1. Acute hypercapnic and hypoxic respiratory failure secondary to COPD exacerbation: Patient was intubated admitted to the intensive care unit where he is currently being managed. Patient currently remains on steroids bronchodilator treatment in addition to being placed on the vent. Vent management deferred to pulmonary/critical care sheet was weaned off the vent on the morning of 04/02/2018. 2. Septic shock suspected to be secondary to upper respiratory tract infection versus pneumonia. Patient apparently did spike fever on the evening of 03/31/2018. Became hypotensive during the night Levophed was started antibiotics broadened with patient cultures have remained negative to date was also seen in consultation by infectious disease 4. Acute on chronic diastolic congestive heart failure: Chest x-ray obtained on admission demonstrated interstitial pulmonary edema Lasix initiated patient's ejection fraction on echo obtained in December 2017 was 55%. Lasix on hold in view of hypotension 5. Elevated troponin due to non-STEMI type II given patient underlying history of CAD with PCI in November 2017 consultation was placed to cardiology 6. Peripheral vascular disease 7. Essential hypertension; patient BP meds on hold in view of hypotension 8. Tobacco dependence 9. Gallbladder distention with small amount of pericholecystic fluid plan is to obtain surgical consultation if patient develops abdominal pain 10. DVT prophylaxis: SC Lovenox Clinical Impression(s) from Imaging Studies Chest X-Ray 04/01/18 06:51 IMPRESSION: Stable examination. Electronically Signed: Marcos Lee MD at 13:25 EST , Service support , Chest CT 04/01/18 11:25 IMPRESSION: Findings suggestive of emphysema with scarring as described. Findings are suggestive of atelectasis and/or early infiltrates at the lung bases. Electronically Signed: Marcos Lee MD at 14:53 EST , Service support , ADDENDUM: 04/01/18 1507 Abdomen/Pelvis CT 04/01/18 11:26 IMPRESSION: Scarring at the lung bases with evidence of atelectasis and/or infiltrates with small bilateral effusions. Small bone emboli seen in the branches of the right and left lower lobe pulmonary artery. Slight distention of the gallbladder with small stones or sludge along the dependent portion of the gallbladder with a small amount of pericholecystic fluid. Infrarenal abdominal aortic aneurysm with a transverse dimension of 2.9 cm. Electronically Signed: Marcos Lee MD at 14:59 EST , Service support , Code Visit Inpatient E&M: 67726 Subs Hosp L3
[2018-04-02] MEDS: 0.9% NaCl Peripheral Flush Adult/Peds IV ×4 (07:31→22:49)
[2018-04-02] MEDS: Furosemide 40 MG/4 ML Vial IV (07:31)
--- NOTE | 2018-04-02 09:20 | CASEMGMT ---
RN CM Note. Participated in interdisciplinary rounds. Pt is extubated, on Bipap. Passed mobility screening, will have PT/OT evaluations today. CM will continue to follow and assist with discharge planning. [place] MAHAN RN ACM
[2018-04-02] MEDS: Famotidine 20 MG Tablet PO ×2 (10:55→22:46)
[2018-04-02] MEDS: Aspirin 81 MG TAB.CHEW PO (10:55)
--- NOTE | 2018-04-02 10:55 | PN.CARD_ITS ---
Subjectve: The patient is now extubated. She appears to be awake and alert. She denies ongoing chest discomfort. She has been chronically short of breath and dyspneic. She has had no significant lower extremity edema. Objective: Vital Signs Temp Pulse Resp BP Pulse Ox 100.2 F H 105 H 28 H 141/77 H 92 04/02/18 09:00 04/02/18 09:08 04/02/18 09:08 04/02/18 09:00 04/02/18 09:33 Oxygen Flow Rate (L/min) 3 Oxygen Delivery Method Nasal Cannula Weight: 166 lb 7.184 oz Body Mass Index (BMI) 28.2 Intake and Output for Last 24 Hours 03/31/18 04/01/18 04/02/18 23:59 23:59 23:59 Intake Total 4934.2 / 4934.2 2438.8 / 2438.8 1622 / 1622 Output Total 700 / 700 1675 / 1675 1000 / 1000 Balance 4234.2 / 4234.2 763.8 / 763.8 622 / 622 General: Awake, Alert, Oriented x 3, Cooperative, No Acute Distress HEENT: Atraumatic, Normocephalic, PERRL, EOMI, Sclera Non Icteric Oral: Moist Mucosa Neck: Supple, Good ROM, No JVD Lungs: Rhonchi, Expiratory Wheezes-Jaspreet Cardiovascular: Regular Rhythm, Normal S1, Normal S2 Abdomen: Bowel Sounds Present, Soft, Non Tender Extremities: No edema Psych/Mental Status: Appropriate 04/01/18 03:40: Triglycerides Cancelled 04/01/18 10:30: B-Natriuretic Peptide 996.7 H 04/01/18 15:05: Triglycerides 330 H 04/01/18 17:25: PT 13.2, INR 1.0, APTT 31.3 04/01/18 23:45: APTT 67.3 H 04/02/18 05:00: WBC 9.0, RBC 3.64 L, Hgb 10.4 L, Hct 32.5 L, MCV 89.3, MCH 28.6, MCHC 32.0, RDW 14.5, RDW Differential 46.0 H, Plt Count 233, MPV 10.6 04/02/18 05:00: Sodium 142, Potassium 3.6, Chloride 109 H, Carbon Dioxide 24.0, Anion Gap 9, BUN 22 H, Creatinine 0.89, Est GFR (MDRD) Af Amer 80, Est GFR (MDRD) Non-Af 66, BUN/Creatinine Ratio 24.8 H, Glucose 173 H, Calcium 8.0 L 04/02/18 05:00: APTT 78.1 H Rhythm: Sinus rhythm Medical Necessity - Tobacco Use Smoking Status: Current every day smoker Assessment/Plan 1. Non ST segment elevation IA The patient presents with an underlying COPD exacerbation requiring mechanical intubation/ventilation. During this time she has been noted to have indeter minate troponin levels and abnormal ECG changes with dynamic T-wave changes. Her transthoracic echocardiogram was performed. She was noted to have left ventricular regional wall motion abnormalities and mildly diminished LV systolic function. Her findings were potentially compatible with Takotsubo syndrome. However contribution from her underlying CAD process cannot necessarily be excluded. At the present time she is being followed. She will continue to be monitored. She will need continued multidisciplinary evaluation care as she remains intubated, with fevers, concerns of sepsis, requiring IV antibiotics, an infectious disease consultation for further evaluation and care. She will need to be considered for a future evaluation with diagnostic cardiac catheterization hopefully when her clinical course improves. Pending upon her clinical course this potentially could occur in the next 1-2 days. 2. CAD status post PCI (left main and RCA) At the present time she has not complained of ongoing symptoms of chest discomfort. Her main concern has been her respiratory status. She has been found to have the aforementioned concerns. She will continue to be monitored, continue medical therapy, and continue future evaluation which may include repeat diagnostic cardiac catheterization when she is able. 3. Hyperlipidemia She will continue medical management. 4. Hypertension Her blood pressures will be followed. She will continue medical therapy. 5. COPD exacerbation She continues evaluation care per pulmonology/critical care medicine. The above was discussed with Dr. Golden and Dr. Goode. This note was generated using a voice recognition system and there may be incorrect words, spelling or punctuation that were not noted when reviewing the office note prior to saving.
[2018-04-02] MEDS: Clopidogrel Bisulfate 75 MG Tablet PO (10:56)
[2018-04-02] MEDS: Metoprolol Tartrate 25 MG Tablet PO ×2 (10:56→22:47)
[2018-04-02 11:28] LABS: Partial Thromboplast Time 64.5 Seconds (24.1-36.2)
[2018-04-02 12:46] LABS: Bedside Glucose 117 mg/dL (70-110)
[2018-04-02 14:28] LABS: AST(SGOT) 15 U/L (15-37); Alanine Aminotransfer ALT/SGPT 20 U/L (13-56); Albumin, Serum 2.6 g/dL (3.2-5.0); Alkaline Phosphatase 70 U/L (45-117); Bilirubin, Direct 0.12 mg/dL (0.00-0.30); Globulin 3.6 g/dL (2.2-4.2); Protein, Total 6.2 g/dL (6.4-8.2)
--- NOTE | 2018-04-02 14:57 | PCM.PN.ID ---
Subjective: Extubated, feeling better, still some SOB and cough. No fever, no abd pain. Some loose stool. - Physical Exam General: Alert, Cooperative, No apparent distress Lungs: Diminished, Wheezes Cardiovascular: Regular rate, Regular Rhythm Abdomen: Soft, Non Tender, Non-Distended Skin: No rashes Vital Signs Temp Pulse Resp BP Pulse Ox 100.2 F H 112 H 28 H 144/73 H 92 04/02/18 09:00 04/02/18 10:56 04/02/18 09:08 04/02/18 10:56 04/02/18 09:33 Oxygen Flow Rate (L/min) 3 Oxygen Delivery Method Nasal Cannula Weight: 75.5 kg Body Mass Index (BMI) 28.2 Intake and Output for Last 24 Hours 03/31/18 04/01/18 04/02/18 23:59 23:59 23:59 Intake Total 4934.2 / 4934.2 2438.8 / 2438.8 1622 / 1622 Output Total 700 / 700 1675 / 1675 1000 / 1000 Balance 4234.2 / 4234.2 763.8 / 763.8 622 / 622 Microbiology Past 72 Hours 04/01/18 11:30 Urine Culture - Preliminary Urine Catheter - Burk Culture exhibits no growth. 03/30/18 06:45 Blood Culture - Preliminary Blood Culture (Wb) - Left Hand No growth in 48 hours. 03/30/18 06:47 Blood Culture - Preliminary Blood Culture (Wb) - Right Hand No growth in 48 hours. 03/31/18 12:30 Gram Stain - Final Sputum, Induced/Lukens Respiratory Culture - Preliminary Culture exhibits no growth. 03/30/18 08:50 Gram Stain - Final Sputum, Induced/Lukens Respiratory Culture - Final 03/31/18 11:15 Respiratory Panel (PCR) - Final Mucosa - Nose 03/30/18 08:50 Respiratory Panel (PCR) - Final Mucosa - Nasopharyngeal Laboratory Tests Past 24 Hrs 04/01/18 04/01/18 04/01/18 15:05 17:25 23:45 WBC RBC Hgb Hct MCV MCH MCHC RDW RDW Differential Plt Count MPV PT 13.2 INR 1.0 APTT 31.3 67.3 H Sodium Potassium Chloride Carbon Dioxide Anion Gap BUN Creatinine Estim Creat Clear Calc Est GFR (MDRD) Af Amer Est GFR (MDRD) Non-Af BUN/Creatinine Ratio Glucose Calcium Total Bilirubin Direct Bilirubin AST ALT Alkaline Phosphatase Total Creatine Kinase 67 Total Protein Albumin Globulin Triglycerides 330 H 04/02/18 04/02/18 04/02/18 05:00 05:00 05:00 WBC 9.0 RBC 3.64 L Hgb 10.4 L Hct 32.5 L MCV 89.3 MCH 28.6 MCHC 32.0 RDW 14.5 RDW Differential 46.0 H Plt Count 233 MPV 10.6 PT INR APTT 78.1 H Sodium 142 Potassium 3.6 Chloride 109 H Carbon Dioxide 24.0 Anion Gap 9 BUN 22 H Creatinine 0.89 Estim Creat Clear Calc 46.57 Est GFR (MDRD) Af Amer 80 Est GFR (MDRD) Non-Af 66 BUN/Creatinine Ratio 24.8 H Glucose 173 H Calcium 8.0 L Total Bilirubin Direct Bilirubin AST ALT Alkaline Phosphatase Total Creatine Kinase Total Protein Albumin Globulin Triglycerides 04/02/18 04/02/18 05:00 11:10 WBC RBC Hgb Hct MCV MCH MCHC RDW RDW Differential Plt Count MPV PT INR APTT 64.5 H Sodium Potassium Chloride Carbon Dioxide Anion Gap BUN Creatinine Estim Creat Clear Calc Est GFR (MDRD) Af Amer Est GFR (MDRD) Non-Af BUN/Creatinine Ratio Glucose Calcium Total Bilirubin 0.30 Direct Bilirubin 0.12 AST 15 ALT 20 Alkaline Phosphatase 70 Total Creatine Kinase Total Protein 6.2 L Albumin 2.6 L Globulin 3.6 Triglycerides POC Glucose 04/02/18 04/02/18 04/01/18 12:39 05:56 23:37 POC Glucose 117 H 150 H 165 H 04/01/18 17:34 POC Glucose 207 H Medical Necessity - Tobacco Use Smoking Status: Current every day smoker Route of nutrition/ use of supplements: [] Nutritional Intake: [] IV Site: [] Burk Catheter: [] - Assessment/Plan Antibiotics: [] Assessment/Plan: [] septic shock - unclear source. Cxs neg so far. Lungs with no new focal infiltrate. CT chest showed PE, heparin gtt started. CT abd/pelvis showed biliary stones/sludge and small surrounding fluid. Had c/o abd pain to family prior to admit. Non tender on exam currently, LFTs are normal. Given that this may be the most likely source, would recommend surgery eval. Off vent, off pressors, overall much improved. On vanc/zosyn. Will stop vanc. Will follow, d/w Dr. Golden
[2018-04-02] MEDS: HEPARIN/D5w 25,000 UNITS 25,000 UNITS/250 ML IV.SOLN. 11 UNITS IV (15:06)
--- NOTE | 2018-04-02 17:47 | PCM.CONS.GEN ---
Problem List (1) Cholelithiasis NOS Status: Acute Qualifiers: Cholelithiasis location: gallbladder Cholecystitis presence: with cholecystitis Cholecystitis acuity: chronic Biliary obstruction: without biliary obstruction Qualified Code(s): K80.10 - Calculus of gallbladder with chronic cholecystitis without obstruction Reason for Consult Date of Consultation: 04/02/18 History of Present Illness: The patient is a 73 year old F who I have been asked to see by Dr. Marcos Golden because of cholelithiasis and abnormal CT scan findings in a patient who was admitted to intensive care unit on March 30, 2018 with acute respiratory failure and septic shock. By report she had several days of progressive shortness of breath fever weakness and general feeling of unwellness. She was initially treated with Levaquin and then changed to Zosyn. She required pressors. The patient states that for as long as 40 years she has had gallbladder problems she states that on one emergency room visit she had presented with 3-day history of repetitive coffee-ground emesis and that she was instructed at that time that she had gallbladder disease. It is of note that her primary care physician is and according to the patient her physician has never recommended that she see a surgeon nor obtain definitive gallbladder surgery. Patient states that she does not ever recall having had an upper endoscopy or colonoscopy. When asked regarding abdominal pain she is extraordinarily nonspecific. She points to kind of the mid abdomen but states that it can be to the right or to the left. She states that multiple variety of foods can cause nausea. She has not noticed any bright red blood per rectum or melena. She states that over the past month she has had a 10 pound weight loss. On April 01, [address] scan of the abdomen and pelvis. Small bilateral effusions were seen with bibasilar atelectasis or infiltrate. Small emboli in the branches of the right and left lower pulmonary artery branches were noted. Coronary artery calcifications were noted. The liver was felt to be normal but there was sludge or possibly small gallstones in the gallbladder lumen with a mildly distended gallbladder. There was felt to possibly be a small amount of perihepatic and pericholecystic fluid. There are calcifications of the abdominal aorta with a transverse dimension of 2.9 cm. On presentation her white blood cell count was 13.5. On April 01, 2018 it had a high of 18.5. Today it is 9000. On presentation her hemoglobin was 14.3. Today it was listed at 10.4. The patient is currently anticoagulated with clopidogrel and IV heparin. As of today her BUN has recovered to 22 and creatinine is recovered to 0.89. On her presentation March 30 her lactic acid level was only 1.8. On her presentation her troponin was 0.578. Her B natruretic peptide on presentation was 120 and yesterday was 996 Her total bilirubin today 0.3. Her AST was 15 and her ALT is 20 and her alkaline phosphatase is 70 Urine culture was no growth. Blood cultures no growth. Respiratory culture no growth. She states that her previous abdominal surgeries were C-sections x2. Past Medical History Past Medical History (Chronic Problems): Chronic Problems (Last Reviewed 03/06/18 @ 06:35 by Deanna Coker) Presence of stent in coronary artery (Chronic) PTCA/SUSAN to ostium of LMT 10/01/2014 @[facility]; PTCA/SUSAN of the mid/distal RCA 11/11/17 CAD (coronary artery disease) (Chronic) Successful PTCA/SUSAN of the of mid/distal RCA with a 2.25 x 38 Promus Synergy, post dilated proximally with a 3.0 x 12 NC balloon at 8 safia (2.5mm); 75%-->0%, no dissection. Successful PTCA/SUSAN of the proximal RCA with a 2.5 x 20 Promus Synergy, post dilated with a 3.0 x 12 at 14 safia; 75%-->0%, no dissection. Tobacco abuse (Chronic) Nonrheumatic tricuspid (valve) insufficiency (Chronic) Nonrheumatic mitral valve insufficiency (Chronic) Nicotine dependence, cigarettes, uncomplicated (Chronic) Hypertension (Chronic) Hyperlipidemia (Chronic) Atherosclerosis of [place] coronary artery of [place] heart without angina pectoris (Chronic) PTCA/SUSAN to ostium of LMT 10/01/2014 @[facility]; PTCA/SUSAN to mid/distal RCA and proximal RCA in November 2017 at [facility]; Peripheral vascular disease (Chronic) SOB (shortness of breath) (Chronic) Medical History: Medical History (Last Reviewed 03/06/18 @ 06:35 by Deanna Coker) Presence of stent in coronary artery (Chronic) Z95.5 PTCA/SUSAN to ostium of LMT 10/01/2014 @[facility]; PTCA/SUSAN of the mid/distal RCA 11/11/17 Acute respiratory failure with hypoxia and hypercapnia (Acute) J96.01, J96.02 COPD with acute exacerbation (Acute) J44.1 Gram-negative pneumonia (Acute) J15.6 Acute hypercapnic respiratory failure (Acute) J96.02 NSTEMI (non-ST elevated myocardial infarction) (Acute) I21.4 COPD exacerbation (Acute) J44.1 CAD (coronary artery disease) (Chronic) I25.10 Successful PTCA/SUSAN of the of mid/distal RCA with a 2.25 x 38 Promus Synergy, post dilated proximally with a 3.0 x 12 NC balloon at 8 safia (2.5mm); 75%-->0%, no dissection. Successful PTCA/SUSAN of the proximal RCA with a 2.5 x 20 Promus Synergy, post dilated with a 3.0 x 12 at 14 safia; 75%-->0%, no dissection. Tobacco abuse (Chronic) Z72.0 Congestive heart failure (Acute) I50.9 Nonrheumatic tricuspid (valve) insufficiency (Chronic) I36.1 Nonrheumatic mitral valve insufficiency (Chronic) I34.0 Nicotine dependence, cigarettes, uncomplicated (Chronic) F17.210 Hypertension (Chronic) I10 Hyperlipidemia (Chronic) E78.5 Atherosclerosis of [place] coronary artery of [place] heart without angina pectoris (Chronic) I25.10 PTCA/SUSAN to ostium of LMT 10/01/2014 @[facility]; PTCA/SUSAN to mid/distal RCA and proximal RCA in November 2017 at [facility]; Peripheral vascular disease (Chronic) I73.9 SOB (shortness of breath) (Chronic) R06.02 Anemia D64.9 COPD (chronic obstructive pulmonary disease) J44.9 Diabetes mellitus E11.9 Fibromyalgia M79.7 GERD (gastroesophageal reflux disease) K21.9 Hyperlipidemia E78.5 MARISABEL (obstructive sleep apnea) G47.33 Allergies codeine Allergy (Unknown, Verified 03/30/18 05:15) Unknown lithium Allergy (Unknown, Verified 03/30/18 05:15) Unknown morphine Allergy (Unknown, Verified 03/30/18 05:15) Unknown naproxen [From Naprosyn] Allergy (Unknown, Verified 03/30/18 05:15) Unknown phenobarbital Allergy (Unknown, Verified 03/30/18 05:15) Unknown Sulfa (Sulfonamide Antibiotics) Allergy (Unknown, Verified 03/30/18 05:15) Unknown albuterol Allergy (Verified 03/30/18 05:15) Rash fentanyl Adverse Reaction (Severe, Verified 03/30/18 05:15) Other OD on Fentany patch. Very sensitive to does 75mcg patch Iodine and Iodide Containing Produc Adverse Reaction (Verified 03/30/18 05:15) Unknown Penicillins [PCN] Adverse Reaction (Verified 03/30/18 05:15) Unknown Home Medications: Ambulatory Orders Medication Instructions Recorded Amlodipine [Norvasc] 5 mg PO DAILY 07/13/14 Atorvastatin Calcium [Lipitor] 80 mg PO QHS 07/13/14 Cyclobenzaprine [Flexeril] 10 mg PO DAILY 07/13/14 Fenofibrate [Tricor] 145 mg PO DAILY 07/13/14 Gabapentin [Neurontin] 600 mg PO TIDCM 07/13/14 Fluticasone/Vilanterol [Breo 1 ea IH DAILY 12/17/16 Ellipta 200-25 Mcg INH] Paroxetine HCl [Paxil] 40 mg PO DAILY 12/17/16 diphenhydramine 25 mg tablet 25 mg PO Q6H PRN 03/20/17 nitroglycerin 0.4 mg sublingual 0.4 mg SUBLINGUAL Q5M PRN #25 tab 03/25/17 tablet ranolazine ER 500 mg 500 mg PO BID #180 tab 03/25/17 tablet,extended release,12 hr losartan 50 mg tablet 50 mg PO DAILY #90 tab 10/17/17 clopidogrel 75 mg tablet 75 mg PO DAILY #90 tab 10/23/17 Cholecalciferol (Vitamin D3) 50,000 unit PO QWEEK 11/23/17 [Vitamin D3] Levalbuterol HCl 0.63 mg INHALATION 4X/DAY PRN 11/23/17 Pantoprazole Sodium [Protonix] 20 mg PO BID 11/23/17 buPROPion SR [Wellbutrin SR (150mg 150 mg PO DAILY 11/23/17 tablets)] tiotropium bromide 2.5 2 puff INHALATION QDAY #1 ea 12/10/17 mcg/actuation mist for inhalation isosorbide mononitrate ER 60 mg 90 mg PO DAILY tab 12/11/17 tablet,extended release 24 hr albuterol sulfate HFA 90 2 puff INHALATION Q6H PRN #18 g 01/29/18 mcg/actuation aerosol inhaler Aspirin [Aspirin, Baby] 81 mg PO DAILY@0800 03/30/18 Atrovent Hfa 2 puff IH 4X/DAY 03/30/18 Metoprolol Tartrate 25 mg PO BID 03/30/18 Surgical History: Surgical History (Last Reviewed 03/06/18 @ 06:35 by Deanna Coker) H/O tubal ligation Z98.51 History of left heart catheterization Z98.890 Hx of appendectomy Z98.890, Z90.49 S/P femoral-femoral bypass surgery Z95.828 with gorortex graft in 2001; removal of infected graft with reconstructions of right superficial artery in 2002 Surgical History: appendectomy, - - cad with stent Psychiatric History: No pertinent psych hx EMERGENCY MEDICAL DISPATCHER History: No pertinent EMERGENCY MEDICAL DISPATCHER history Smoking Status: Current every day smoker - *Family History Maternal Family History: Family History (Last Reviewed 03/06/18 @ 06:35 by Deanna Coker) Mother CAD (coronary artery disease) Hypertension Sister CAD (coronary artery disease) Myocardial infarction History Items: Diabetes, Heart Disease, Stroke Paternal Family History: Family History (Last Reviewed 03/06/18 @ 06:35 by Deanna Coker) Mother CAD (coronary artery disease) Hypertension Sister CAD (coronary artery disease) Myocardial infarction History Items: Diabetes, Stroke Review of Systems Constitutional: Reports: Anorexia, Weakness, Weight Change Eyes: Denies: Blurred vision Respiratory: Reports: Cough, Shortness of Breath, Wheezing Gastrointestinal: Reports: Abdominal Pain, Diarrhea, Vomiting Genitourinary: Denies: Dysuria Musculoskeletal: Denies: Leg Pain Skin: Denies: Jaundice Neurological: Denies: Balance problems Endocrine: Reports: Change in Body Habitus Patient Problems: Active and Suspected Problems (Last Reviewed 03/06/18 @ 06:35 by Deanna Coker) Cholelithiasis NOS (Acute) - Physical Exam General: Alert, Oriented x3, - - Dyspneic at rest HEENT: Atraumatic Oral: Moist Mucosa Neck: Supple Lungs: - - Bilateral wheezes noted. Poor respiratory excursion. Poor auscultation Cardiovascular: Regular rate, Regular Rhythm Abdomen: Bowel Sounds Present, Soft, - - Bowel sounds are present and very active. Mild diffuse nonfocal tenderness. No mass. No rebound. No guarding. Extremities: No Calf Tenderness Neurological: - - Alert aware of her situation and place Psych/Mental Status: Normal Affect Vital Signs Temp Pulse Resp BP Pulse Ox 100.6 F H 100 24 H 141/83 H 95 04/02/18 16:00 04/02/18 16:00 04/02/18 16:00 04/02/18 16:00 04/02/18 16:00 Oxygen Flow Rate (L/min) 3 Oxygen Delivery Method Nasal Cannula Weight: 166 lb 7.184 oz Body Mass Index (BMI) 28.2 Intake and Output for Last 24 Hours 03/31/18 04/01/18 04/02/18 23:59 23:59 23:59 Intake Total 4934.2 / 4934.2 2438.8 / 2438.8 1622 / 1622 Output Total 700 / 700 1675 / 1675 1000 / 1000 Balance 4234.2 / 4234.2 763.8 / 763.8 622 / 622 Microbiology Past 72 Hours 04/01/18 11:30 Urine Culture - Preliminary Urine Catheter - Burk Culture exhibits no growth. 03/30/18 06:45 Blood Culture - Preliminary Blood Culture (Wb) - Left Hand No growth in 48 hours. 03/30/18 06:47 Blood Culture - Preliminary Blood Culture (Wb) - Right Hand No growth in 48 hours. 03/31/18 12:30 Gram Stain - Final Sputum, Induced/Lukens Respiratory Culture - Preliminary Culture exhibits no growth. 03/30/18 08:50 Gram Stain - Final Sputum, Induced/Lukens Respiratory Culture - Final 03/31/18 11:15 Respiratory Panel (PCR) - Final Mucosa - Nose 03/30/18 08:50 Respiratory Panel (PCR) - Final Mucosa - Nasopharyngeal Laboratory Tests Past 24 Hrs 04/01/18 04/01/18 04/02/18 17:25 23:45 05:00 WBC 9.0 RBC 3.64 L Hgb 10.4 L Hct 32.5 L MCV 89.3 MCH 28.6 MCHC 32.0 RDW 14.5 RDW Differential 46.0 H Plt Count 233 MPV 10.6 PT 13.2 INR 1.0 APTT 31.3 67.3 H Sodium Potassium Chloride Carbon Dioxide Anion Gap BUN Creatinine Estim Creat Clear Calc Est GFR (MDRD) Af Amer Est GFR (MDRD) Non-Af BUN/Creatinine Ratio Glucose Calcium Total Bilirubin Direct Bilirubin AST ALT Alkaline Phosphatase Total Protein Albumin Globulin 04/02/18 04/02/18 04/02/18 05:00 05:00 05:00 WBC RBC Hgb Hct MCV MCH MCHC RDW RDW Differential Plt Count MPV PT INR APTT 78.1 H Sodium 142 Potassium 3.6 Chloride 109 H Carbon Dioxide 24.0 Anion Gap 9 BUN 22 H Creatinine 0.89 Estim Creat Clear Calc 46.57 Est GFR (MDRD) Af Amer 80 Est GFR (MDRD) Non-Af 66 BUN/Creatinine Ratio 24.8 H Glucose 173 H Calcium 8.0 L Total Bilirubin 0.30 Direct Bilirubin 0.12 AST 15 ALT 20 Alkaline Phosphatase 70 Total Protein 6.2 L Albumin 2.6 L Globulin 3.6 04/02/18 11:10 WBC RBC Hgb Hct MCV MCH MCHC RDW RDW Differential Plt Count MPV PT INR APTT 64.5 H Sodium Potassium Chloride Carbon Dioxide Anion Gap BUN Creatinine Estim Creat Clear Calc Est GFR (MDRD) Af Amer Est GFR (MDRD) Non-Af BUN/Creatinine Ratio Glucose Calcium Total Bilirubin Direct Bilirubin AST ALT Alkaline Phosphatase Total Protein Albumin Globulin POC Glucose 04/02/18 04/02/18 04/01/18 12:39 05:56 23:37 POC Glucose 117 H 150 H 165 H Assessment/Plan All Active Problems (Last Reviewed 03/06/18 @ 06:35 by Deanna Coker) Cholelithiasis NOS (Acute) Acute respiratory failure with hypoxia and hypercapnia (Acute) COPD with acute exacerbation (Acute) Gram-negative pneumonia (Acute) Acute hypercapnic respiratory failure (Acute) NSTEMI (non-ST elevated myocardial infarction) (Acute) COPD exacerbation (Acute) Congestive heart failure (Acute) 73-year-old female who presents with findings consistent with septic shock. Her complicating features include chronic tobacco addiction with no interest in stopping. Chronic COPD. COPD acute exacerbation. Atherosclerotic cardiovascular disease with history of coronary stents and troponin elevation. Acute congestive heart failure. Hypertension. Peripheral vascular occlusive disease. New finding of pulmonary embolization on IV heparin anticoagulation in addition to her clopidogrel anticoagulation LFTs obtained today are not remarkable. CT scan certainly variable regarding the gallbladder with findings that would correlate well with changes associated with septic shock of other etiology. Her clinical examination is quite unremarkable. I would recommend a gallbladder ultrasound. I do not believe that the patient requires any type of urgent gallbladder intervention. Obviously she would not be a candidate for surgical intervention at this setting but if she were to develop more definitive signs and symptoms that would correlate with acute gallbladder disease then would recommend CT-guided percutaneous drainage. I have suggested the patient that she would be a high risk operative candidate and that it is imperative that she stop her tobacco use. She has had an opportunity to ask and have questions answered. I will order the gallbladder ultrasound. Future outpatient surgical follow-up can be scheduled pending the patient's ongoing findings and needs. I appreciate the opportunity of assisting with her surgical care Mohsen Leo M.D., F.A.C.S.
[2018-04-02 18:16] LABS: Bedside Glucose 100 mg/dL (70-110)
[2018-04-02 19:04] LABS: Partial Thromboplast Time 68.3 Seconds (24.1-36.2)
[2018-04-02] MEDS: Acetaminophen 650 MG/20 ML UDC PO (22:45)
[2018-04-02] MEDS: Atorvastatin Calcium 80 MG Tablet PO (22:46)
[2018-04-02 23:20] LABS: Bedside Glucose 94 mg/dL (70-110)
[2018-04-03] VITALS (28 sets, daily range): BP systolic 95–159; BP diastolic 46–95; PULSE 65–98; RESP 12–32; TEMP 37.2–37.7; O2SAT 93–99
[2018-04-03] MEDS: CHLORHEXIDINE GLUC 2% CLOTH 1 EACH TOWELETTE TOPICAL (05:07)
[2018-04-03] MEDS: Piperacil/Tazobactam 3.375 GM/50 ML ML IV ×3 (05:07→21:57)
[2018-04-03] MEDS: Clopidogrel Bisulfate 75 MG Tablet PO ×2 (05:08→05:09)
[2018-04-03] MEDS: 0.9% NaCl Peripheral Flush Adult/Peds IV ×2 (05:08→10:10)
[2018-04-03] MEDS: Famotidine 20 MG Tablet PO ×2 (05:09→21:57)
[2018-04-03] MEDS: Aspirin 81 MG TAB.CHEW PO (05:09)
[2018-04-03 05:21] LABS: Bedside Glucose 123 mg/dL (70-110)
--- NOTE | 2018-04-03 05:55 | EKG12_ITS ---
Test Reason : AM EKG Blood Pressure : / mmHG Vent. Rate : 070 BPM Atrial Rate : 070 BPM P-R Int : 170 ms QRS Dur : 088 ms QT Int : 504 ms P-R-T Axes : 046 032 211 degrees QTc Int : 544 ms Normal sinus rhythm ST & Marked T wave abnormality, consider anterolateral ischemia Prolonged QT Abnormal ECG When compared with ECG of 01-APR-2018 15:19, MANUAL COMPARISON REQUIRED, DATA IS UNCONFIRMED Confirmed by JOÃO IVEY, ANGIE ([id number]), assignment desk editor MACKENZIE TORRES ([id number]) on 04/04/2018 3:47:51 PM Referred By: JAMIL Confirmed By:ANGIE MOYER MD
[2018-04-03 06:09] LABS: Prothrombin Time (Protime)PT. 13.2 SECONDS (11.7-14.9)
[2018-04-03 06:10] LABS: Absolute Lymphocyte Count 1.51 X10^3/ul (0.83-4.51); Absolute Neutrophil Count 10.9 X10^3/uL (2.0-7.7); Basophil# 0.01 X10^3/uL; Basophil% 0.1 % (0-1); Hematocrit 33.1 % (37-47); Hemoglobin 10.4 g/dl (12.0-15.0); Lymphocyte # 1.51 X10^3/ul (4.0); Lymphocyte % 11.5 % (19-41); Mean Corp Hgb Conc 31.4 g/gl (32-36); Mean Corpuscular Hgb 28.1 pg (27.0-32.0); Mean Corpuscular Volume 89.5 fL (81-99); Mean Platelet Vol. 10.3 fl (6.2-12.0); Monocyte# 0.56 X10^3/uL; Monocyte% 4.3 % (0-10); Neutrophil # 10.86 X10^3/uL (2.7-7.7); POSITIVE COUNT NO; POSITIVE DIFFERENTIAL NO; POSITIVE MORPHOLOGY NO; Partial Thromboplast Time 34.2 Seconds (24.1-36.2); Platelet Count 289 K/mm3 (150-450); RBC Distribution Width CV 15.1 % (11.6-14.6); RBC Distribution Width SD 47.9 fl (35.1-43.9); White Blood Count 13.1 K/mm3 (4.4-11.0)
[2018-04-03 06:12] LABS: Anion Gap 11 (5-15); BUN 25 mg/dL (7-18); Calcium,Total 8.3 mg/dL (8.5-10.1); Chloride 107 mmol/L (98-107); EST Glomerular Filtration Rate 58 mL/min (>60); Est Glom Filt Rate - Afr Amer 70 mL/min (>60); Estimated Creatinine Clearance 41.45 ml/min; Glucose 123 mg/dL (74-106); Potassium 3.1 mmol/L (3.5-5.1); Sodium Level 146 mmol/L (136-145)
[2018-04-03] MEDS: LEVALBUTEROL HCL 0.63 MG/3 ML VIAL.NEB IH ×3 (06:44→19:00)
--- NOTE | 2018-04-03 06:47 | PCM.PN.INT ---
Subjective: The patient was seen and examined at the bedside this morning. Events from the last 24 hours have been reviewed. The patient is currently afebrile, hemodynamically stable and maintaining appropriate oxygen saturations on 2 L/min via nasal cannula. It does appear that the patient did spike a fever at approximately 1800 hrs. last evening to 38.2 ?C. The patient has done well from a respiratory perspective following extubation yesterday. The patient was evaluated by general surgery yesterday, following my conversation with infectious diseases, and upon further review of the patient's CT abdomen/pelvis. They are planning to obtain a gallbladder ultrasound, but do not feel that the patient needs any form of surgical intervention at this time. There remain tentative plans for the patient to undergo cardiac catheterization this morning. The patient is currently documented to be overall net +5.6 L for the admission. Objective: The patient's most recent lab work, culture data and imaging studies have all been personally reviewed. Blood cultures are pending. Respiratory viral panel was negative. Initial sputum culture dated March 30 appears to be normal respiratory damien. Repeat sputum culture from March 31 again demonstrated no growth. Surface echocardiogram completed March 31 revealed mild segmental systolic dysfunction with an ejection fraction of 45%. Right ventricular systolic pressure was estimated to be 39 mmHg. 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 A 6-minute walk test completed March 2018 revealed the need for 3 L/min of supplemental oxygen with any exertion. General: Alert, Cooperative, No apparent distress HEENT: Atraumatic, PERRLA, Normocephalic Oral: No Gingival or Mucosal Lesions/ Ulcerations Neck: Supple, No Nodes, Trachea Midline Lungs: No rhonchi, No wheeze, No rales, Diminished Cardiovascular: Regular rate, Normal S1, Normal S2, No murmurs Abdomen: Bowel Sounds Present, Soft, Non Tender Extremities: No clubbing, No cyanosis, No edema Skin: - - No significant change from previous Musculoskeletal: No Tenderness to Palpation of Joints or Extremities Lymphatic: No Cervical, Supraclavicular, or Inguinal Adenopathy Neurological: Cranial nerves II-XII grossly intact, Neuro grossly intact Psych/Mental Status: Normal Affect, Appropriate Vital Signs Temp Pulse Resp BP Pulse Ox 37.2 C 71 31 H 144/68 H 96 04/03/18 06:00 04/03/18 06:00 04/03/18 06:00 04/03/18 06:00 04/03/18 06:00 Oxygen Flow Rate (L/min) 2 Oxygen Delivery Method Nasal Cannula Weight: 161 lb 9.581 oz Body Mass Index (BMI) 28.2 Intake and Output for Last 24 Hours 04/01/18 04/02/18 04/03/18 23:59 23:59 23:59 Intake Total 2438.8 / 2438.8 2959 / 2959 604.3 / 604.3 Output Total 1675 / 1675 3050 / 3050 350 / 350 Balance 763.8 / 763.8 -91 / -91 254.3 / 254.3 Labs (Last 48 Hours) 03/30/18 04/01/18 04/01/18 04:44 03:40 10:30 WBC RBC Hgb Hct MCV MCH MCHC RDW RDW Differential Plt Count MPV Immature Gran % (Auto) Neut % (Auto) Lymph % (Auto) Blanco % (Auto) Eos % (Auto) Baso % (Auto) Absolute Neuts (auto) Absolute Lymphs (auto) Total Counted PT INR APTT Sodium Potassium Chloride Carbon Dioxide Anion Gap BUN Creatinine Estim Creat Clear Calc Est GFR (MDRD) Af Amer Est GFR (MDRD) Non-Af BUN/Creatinine Ratio Glucose Calcium Total Bilirubin Direct Bilirubin AST ALT Alkaline Phosphatase Total Creatine Kinase Cancelled B-Natriuretic Peptide 996.7 H Total Protein Albumin Globulin Triglycerides Cancelled POC Glucose 275 H 04/01/18 04/01/18 04/01/18 12:09 15:05 17:25 WBC RBC Hgb Hct MCV MCH MCHC RDW RDW Differential Plt Count MPV Immature Gran % (Auto) Neut % (Auto) Lymph % (Auto) Blanco % (Auto) Eos % (Auto) Baso % (Auto) Absolute Neuts (auto) Absolute Lymphs (auto) Total Counted PT 13.2 INR 1.0 APTT 31.3 Sodium Potassium Chloride Carbon Dioxide Anion Gap BUN Creatinine Estim Creat Clear Calc Est GFR (MDRD) Af Amer Est GFR (MDRD) Non-Af BUN/Creatinine Ratio Glucose Calcium Total Bilirubin Direct Bilirubin AST ALT Alkaline Phosphatase Total Creatine Kinase 67 B-Natriuretic Peptide Total Protein Albumin Globulin Triglycerides 330 H POC Glucose 169 H 04/01/18 04/01/18 04/01/18 17:34 23:37 23:45 WBC RBC Hgb Hct MCV MCH MCHC RDW RDW Differential Plt Count MPV Immature Gran % (Auto) Neut % (Auto) Lymph % (Auto) Blanco % (Auto) Eos % (Auto) Baso % (Auto) Absolute Neuts (auto) Absolute Lymphs (auto) Total Counted PT INR APTT 67.3 H Sodium Potassium Chloride Carbon Dioxide Anion Gap BUN Creatinine Estim Creat Clear Calc Est GFR (MDRD) Af Amer Est GFR (MDRD) Non-Af BUN/Creatinine Ratio Glucose Calcium Total Bilirubin Direct Bilirubin AST ALT Alkaline Phosphatase Total Creatine Kinase B-Natriuretic Peptide Total Protein Albumin Globulin Triglycerides POC Glucose 207 H 165 H 04/02/18 04/02/18 04/02/18 05:00 05:00 05:00 WBC 9.0 RBC 3.64 L Hgb 10.4 L Hct 32.5 L MCV 89.3 MCH 28.6 MCHC 32.0 RDW 14.5 RDW Differential 46.0 H Plt Count 233 MPV 10.6 Immature Gran % (Auto) Neut % (Auto) Lymph % (Auto) Blanco % (Auto) Eos % (Auto) Baso % (Auto) Absolute Neuts (auto) Absolute Lymphs (auto) Total Counted PT INR APTT 78.1 H Sodium 142 Potassium 3.6 Chloride 109 H Carbon Dioxide 24.0 Anion Gap 9 BUN 22 H Creatinine 0.89 Estim Creat Clear Calc 46.57 Est GFR (MDRD) Af Amer 80 Est GFR (MDRD) Non-Af 66 BUN/Creatinine Ratio 24.8 H Glucose 173 H Calcium 8.0 L Total Bilirubin Direct Bilirubin AST ALT Alkaline Phosphatase Total Creatine Kinase B-Natriuretic Peptide Total Protein Albumin Globulin Triglycerides POC Glucose 04/02/18 04/02/18 04/02/18 05:00 05:56 11:10 WBC RBC Hgb Hct MCV MCH MCHC RDW RDW Differential Plt Count MPV Immature Gran % (Auto) Neut % (Auto) Lymph % (Auto) Blanco % (Auto) Eos % (Auto) Baso % (Auto) Absolute Neuts (auto) Absolute Lymphs (auto) Total Counted PT INR APTT 64.5 H Sodium Potassium Chloride Carbon Dioxide Anion Gap BUN Creatinine Estim Creat Clear Calc Est GFR (MDRD) Af Amer Est GFR (MDRD) Non-Af BUN/Creatinine Ratio Glucose Calcium Total Bilirubin 0.30 Direct Bilirubin 0.12 AST 15 ALT 20 Alkaline Phosphatase 70 Total Creatine Kinase B-Natriuretic Peptide Total Protein 6.2 L Albumin 2.6 L Globulin 3.6 Triglycerides POC Glucose 150 H 04/02/18 04/02/18 04/02/18 12:39 18:05 18:10 WBC RBC Hgb Hct MCV MCH MCHC RDW RDW Differential Plt Count MPV Immature Gran % (Auto) Neut % (Auto) Lymph % (Auto) Blanco % (Auto) Eos % (Auto) Baso % (Auto) Absolute Neuts (auto) Absolute Lymphs (auto) Total Counted PT INR APTT 68.3 H Sodium Potassium Chloride Carbon Dioxide Anion Gap BUN Creatinine Estim Creat Clear Calc Est GFR (MDRD) Af Amer Est GFR (MDRD) Non-Af BUN/Creatinine Ratio Glucose Calcium Total Bilirubin Direct Bilirubin AST ALT Alkaline Phosphatase Total Creatine Kinase B-Natriuretic Peptide Total Protein Albumin Globulin Triglycerides POC Glucose 117 H 100 04/02/18 04/03/18 04/03/18 22:48 05:06 05:45 WBC RBC Hgb Hct MCV MCH MCHC RDW RDW Differential Plt Count MPV Immature Gran % (Auto) Neut % (Auto) Lymph % (Auto) Blanco % (Auto) Eos % (Auto) Baso % (Auto) Absolute Neuts (auto) Absolute Lymphs (auto) Total Counted PT INR APTT Sodium 146 H Potassium 3.1 L Chloride 107 Carbon Dioxide 28.0 Anion Gap 11 BUN 25 H Creatinine 1.00 Estim Creat Clear Calc 41.45 Est GFR (MDRD) Af Amer 70 Est GFR (MDRD) Non-Af 58 L BUN/Creatinine Ratio 25.0 H Glucose 123 H Calcium 8.3 L Total Bilirubin Direct Bilirubin AST ALT Alkaline Phosphatase Total Creatine Kinase B-Natriuretic Peptide Total Protein Albumin Globulin Triglycerides POC Glucose 94 123 H 04/03/18 04/03/18 05:45 05:45 WBC 13.1 H RBC 3.70 L Hgb 10.4 L Hct 33.1 L MCV 89.5 MCH 28.1 MCHC 31.4 L RDW 15.1 H RDW Differential 47.9 H Plt Count 289 MPV 10.3 Immature Gran % (Auto) 1.100 H Neut % (Auto) 83.0 H Lymph % (Auto) 11.5 L Blanco % (Auto) 4.3 Eos % (Auto) 0.0 Baso % (Auto) 0.1 Absolute Neuts (auto) 10.9 H Absolute Lymphs (auto) 1.51 Total Counted Not Reportable PT 13.2 INR 1.0 APTT 34.2 Sodium Potassium Chloride Carbon Dioxide Anion Gap BUN Creatinine Estim Creat Clear Calc Est GFR (MDRD) Af Amer Est GFR (MDRD) Non-Af BUN/Creatinine Ratio Glucose Calcium Total Bilirubin Direct Bilirubin AST ALT Alkaline Phosphatase Total Creatine Kinase B-Natriuretic Peptide Total Protein Albumin Globulin Triglycerides POC Glucose Microbiology 04/01/18 11:30 Urine Catheter - Burk Urine Culture - Preliminary Culture exhibits no growth. 03/30/18 06:45 Blood Culture (Wb) - Left Hand Blood Culture - Preliminary No growth in 48 hours. 03/30/18 06:47 Blood Culture (Wb) - Right Hand Blood Culture - Preliminary No growth in 48 hours. 03/31/18 12:30 Sputum, Induced/Lukens Gram Stain - Final 03/31/18 12:30 Sputum, Induced/Lukens Respiratory Culture - Preliminary Culture exhibits no growth. 03/30/18 08:50 Sputum, Induced/Lukens Gram Stain - Final 03/30/18 08:50 Sputum, Induced/Lukens Respiratory Culture - Final Clinical Impression(s) from Imaging Studies Brain CT 03/30/18 04:57 IMPRESSION: 1. Negative for intracranial hemorrhage or acute intracranial disease. 2. Paranasal sinus disease and additional chronic changes, as above. Individualized dose optimization techniques were used for this CT. at 0701 Reported and signed by: Leonard Romeo MD Electronically Signed: Leonard Romeo, at 7:00 EST Tel , Service support , Chest X-Ray 03/30/18 05:06 IMPRESSION: 1. The endotracheal tube appears in good position and the NG tube tip lies at the GE junction. 2. Chronic lung disease with emphysema and interstitial fibrosis. Superimposed interstitial pulmonary edema is also suggested. at 0552 Reported and signed by: Leonard Romeo MD Electronically Signed: Leonard Romeo, at 5:51 EST Tel , Service support , Chest X-Ray 04/01/18 06:51 IMPRESSION: Stable examination. Electronically Signed: Marcos Lee MD at 13:25 EST , Service support , Chest CT 04/01/18 11:25 IMPRESSION: Findings suggestive of emphysema with scarring as described. Findings are suggestive of atelectasis and/or early infiltrates at the lung bases. Electronically Signed: Marcos Lee MD at 14:53 EST , Service support , ADDENDUM: 04/01/18 1507 Abdomen/Pelvis CT 04/01/18 11:26 IMPRESSION: Scarring at the lung bases with evidence of atelectasis and/or infiltrates with small bilateral effusions. Small bone emboli seen in the branches of the right and left lower lobe pulmonary artery. Slight distention of the gallbladder with small stones or sludge along the dependent portion of the gallbladder with a small amount of pericholecystic fluid. Infrarenal abdominal aortic aneurysm with a transverse dimension of 2.9 cm. Electronically Signed: Marcos Lee MD at 14:59 EST , Service support , Medical Necessity - Tobacco Use Smoking Status: Current every day smoker Assessment/Plan All Active Problems (Last Reviewed 03/06/18 @ 06:35 by Deanna Coker) Cholelithiasis NOS (Acute) Acute respiratory failure with hypoxia and hypercapnia (Acute) COPD with acute exacerbation (Acute) Gram-negative pneumonia (Acute) Acute hypercapnic respiratory failure (Acute) NSTEMI (non-ST elevated myocardial infarction) (Acute) COPD exacerbation (Acute) Congestive heart failure (Acute) RECOMMENDATIONS: 1. Proceed with cardiac catheterization this morning. 2. Right upper quadrant ultrasound pending. 3. Continue heparin drip as ordered. The patient will be transitioned to an oral anticoagulation regimen, once cardiac catheterization has been completed. 4. Continue antibiotics per infectious diseases discretion. 5. Continue bronchodilators and steroids. The patient's methylprednisone will be transition to prednisone 40 mg daily. 6. Encourage incentive spirometer use and mobilize patient as tolerated. 7. Perform walking oximetry study prior to consideration for discharge from the hospital. 8. The patient undoubtedly needs to follow-up in the pulmonary medicine clinic within 2 weeks of her discharge from the hospital. IMPRESSIONS: 1. Acute on chronic combined respiratory failure likely secondary to COPD with exacerbation The patient does have known severe COPD, based upon recent pulmonary function studies from February 2018. In addition, a recent 6-minute walk test revealed the need for 3 L/min with exertion at her baseline. The patient does have an extensive smoking history and continues to smoke daily. The patient's initial chest imaging studies did reveal chronic interstitial changes without focal consolidation. However, she was noted to have copious sputum production. A follow-up CT chest did reveal findings which could represent bibasilar airspace disease. The patient has been maintained on broad-spectrum antibiotics under the discretion of infectious diseases. In addition, she will be continued on bronchodilators along with steroids. The patient has done well following extubation and is currently maintaining saturations with her baseline supplemental oxygen requirement. Smoking cessation is strongly advisable. 2. Septic shock Resolved. While an underlying pulmonary infectious process is certainly a consideration, the patient's sputum cultures have not demonstrated any growth. At this time, the patient has defervesced, with antibiotics being managed by infectious diseases. 3. Pulmonary emboli Recent CT chest did reveal evidence of bilateral pulmonary emboli, for which the patient was initiated on a continuous heparin infusion. This will be continued until after the patient's cardiac catheterization has become completed. The patient will require eventual transition to an oral regimen, like Eliquis. 4. Systolic heart failure/pulmonary hypertension/troponin elevation Cardiology is currently following to assist with medical management. The patient is going to be taken for a cardiac catheterization this morning. 5. Acute kidney injury Resolved. Likely prerenal in etiology. Creatinine has improved with time. Continue to monitor urine output. There is no current indication for renal replacement therapy. 6. Continuous tobacco dependence/hypertension/hyperlipidemia/peripheral vascular disease Complicates care, management, recovery and prognosis. Continue nicotine replacement therapy. Physical therapy to continue to work with patient. This note was generated with [employer] dictation software. It may contain incorrect words, spelling, and punctuation that were not noted in checking the note before signing. Code Visit Inpatient E&M: 84073 Subs Hosp L3
--- NOTE | 2018-04-03 06:50 | PN_ITS ---
Subjective: The patient was seen and examined at the bedside this morning. Events from the last 24 hours have been reviewed. The patient is currently afebrile, hemodynamically stable and maintaining appropriate oxygen saturations on 2 L/min via nasal cannula. It does appear that the patient did spike a fever at approximately 1800 hrs. last evening to 38.2 ?C. The patient has done well from a respiratory perspective following extubation yesterday. The patient was evaluated by general surgery yesterday, following my conversation with infectious diseases, and upon further review of the patient's CT abdomen/pelvis. They are planning to obtain a gallbladder ultrasound, but do not feel that the patient needs any form of surgical intervention at this time. There remain tentative plans for the patient to undergo cardiac catheterization this morning. The patient is currently documented to be overall net +5.6 L for the admission. Objective: The patient's most recent lab work, culture data and imaging studies have all been personally reviewed. Blood cultures are pending. Respiratory viral panel was negative. Initial sputum culture dated March 30 appears to be normal respiratory damien. Repeat sputum culture from March 31 again demonstrated no growth. Surface echocardiogram completed March 31 revealed mild segmental systolic dysfunction with an ejection fraction of 45%. Right ventricular systolic pressure was estimated to be 39 mmHg. 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 A 6-minute walk test completed March 2018 revealed the need for 3 L/min of supplemental oxygen with any exertion. General: Alert, Cooperative, No apparent distress HEENT: Atraumatic, PERRLA, Normocephalic Oral: No Gingival or Mucosal Lesions/ Ulcerations Neck: Supple, No Nodes, Trachea Midline Lungs: No rhonchi, No wheeze, No rales, Diminished Cardiovascular: Regular rate, Normal S1, Normal S2, No murmurs Abdomen: Bowel Sounds Present, Soft, Non Tender Extremities: No clubbing, No cyanosis, No edema Skin: - - No significant change from previous Musculoskeletal: No Tenderness to Palpation of Joints or Extremities Lymphatic: No Cervical, Supraclavicular, or Inguinal Adenopathy Neurological: Cranial nerves II-XII grossly intact, Neuro grossly intact Psych/Mental Status: Normal Affect, Appropriate Vital Signs Temp Pulse Resp BP Pulse Ox 37.2 C 71 31 H 144/68 H 96 04/03/18 06:00 04/03/18 06:00 04/03/18 06:00 04/03/18 06:00 04/03/18 06:00 Oxygen Flow Rate (L/min) 2 Oxygen Delivery Method Nasal Cannula Weight: 161 lb 9.581 oz Body Mass Index (BMI) 28.2 Intake and Output for Last 24 Hours 04/01/18 04/02/18 04/03/18 23:59 23:59 23:59 Intake Total 2438.8 / 2438.8 2959 / 2959 604.3 / 604.3 Output Total 1675 / 1675 3050 / 3050 350 / 350 Balance 763.8 / 763.8 -91 / -91 254.3 / 254.3 Labs (Last 48 Hours) 03/30/18 04/01/18 04/01/18 04:44 03:40 10:30 WBC RBC Hgb Hct MCV MCH MCHC RDW RDW Differential Plt Count MPV Immature Gran % (Auto) Neut % (Auto) Lymph % (Auto) [place] % (Auto) Eos % (Auto) Baso % (Auto) Absolute Neuts (auto) Absolute Lymphs (auto) Total Counted PT INR APTT Sodium Potassium Chloride Carbon Dioxide Anion Gap BUN Creatinine Estim Creat Clear Calc Est GFR (MDRD) Af Amer Est GFR (MDRD) Non-Af BUN/Creatinine Ratio Glucose Calcium Total Bilirubin Direct Bilirubin AST ALT Alkaline Phosphatase Total Creatine Kinase Cancelled B-Natriuretic Peptide 996.7 H Total Protein Albumin Globulin Triglycerides Cancelled POC Glucose 275 H 04/01/18 04/01/18 04/01/18 12:09 15:05 17:25 WBC RBC Hgb Hct MCV MCH MCHC RDW RDW Differential Plt Count MPV Immature Gran % (Auto) Neut % (Auto) Lymph % (Auto) [place] % (Auto) Eos % (Auto) Baso % (Auto) Absolute Neuts (auto) Absolute Lymphs (auto) Total Counted PT 13.2 INR 1.0 APTT 31.3 Sodium Potassium Chloride Carbon Dioxide Anion Gap BUN Creatinine Estim Creat Clear Calc Est GFR (MDRD) Af Amer Est GFR (MDRD) Non-Af BUN/Creatinine Ratio Glucose Calcium Total Bilirubin Direct Bilirubin AST ALT Alkaline Phosphatase Total Creatine Kinase 67 B-Natriuretic Peptide Total Protein Albumin Globulin Triglycerides 330 H POC Glucose 169 H 04/01/18 04/01/18 04/01/18 17:34 23:37 23:45 WBC RBC Hgb Hct MCV MCH MCHC RDW RDW Differential Plt Count MPV Immature Gran % (Auto) Neut % (Auto) Lymph % (Auto) [place] % (Auto) Eos % (Auto) Baso % (Auto) Absolute Neuts (auto) Absolute Lymphs (auto) Total Counted PT INR APTT 67.3 H Sodium Potassium Chloride Carbon Dioxide Anion Gap BUN Creatinine Estim Creat Clear Calc Est GFR (MDRD) Af Amer Est GFR (MDRD) Non-Af BUN/Creatinine Ratio Glucose Calcium Total Bilirubin Direct Bilirubin AST ALT Alkaline Phosphatase Total Creatine Kinase B-Natriuretic Peptide Total Protein Albumin Globulin Triglycerides POC Glucose 207 H 165 H 04/02/18 04/02/18 04/02/18 05:00 05:00 05:00 WBC 9.0 RBC 3.64 L Hgb 10.4 L Hct 32.5 L MCV 89.3 MCH 28.6 MCHC 32.0 RDW 14.5 RDW Differential 46.0 H Plt Count 233 MPV 10.6 Immature Gran % (Auto) Neut % (Auto) Lymph % (Auto) [place] % (Auto) Eos % (Auto) Baso % (Auto) Absolute Neuts (auto) Absolute Lymphs (auto) Total Counted PT INR APTT 78.1 H Sodium 142 Potassium 3.6 Chloride 109 H Carbon Dioxide 24.0 Anion Gap 9 BUN 22 H Creatinine 0.89 Estim Creat Clear Calc 46.57 Est GFR (MDRD) Af Amer 80 Est GFR (MDRD) Non-Af 66 BUN/Creatinine Ratio 24.8 H Glucose 173 H Calcium 8.0 L Total Bilirubin Direct Bilirubin AST ALT Alkaline Phosphatase Total Creatine Kinase B-Natriuretic Peptide Total Protein Albumin Globulin Triglycerides POC Glucose 04/02/18 04/02/18 04/02/18 05:00 05:56 11:10 WBC RBC Hgb Hct MCV MCH MCHC RDW RDW Differential Plt Count MPV Immature Gran % (Auto) Neut % (Auto) Lymph % (Auto) [place] % (Auto) Eos % (Auto) Baso % (Auto) Absolute Neuts (auto) Absolute Lymphs (auto) Total Counted PT INR APTT 64.5 H Sodium Potassium Chloride Carbon Dioxide Anion Gap BUN Creatinine Estim Creat Clear Calc Est GFR (MDRD) Af Amer Est GFR (MDRD) Non-Af BUN/Creatinine Ratio Glucose Calcium Total Bilirubin 0.30 Direct Bilirubin 0.12 AST 15 ALT 20 Alkaline Phosphatase 70 Total Creatine Kinase B-Natriuretic Peptide Total Protein 6.2 L Albumin 2.6 L Globulin 3.6 Triglycerides POC Glucose 150 H 04/02/18 04/02/18 04/02/18 12:39 18:05 18:10 WBC RBC Hgb Hct MCV MCH MCHC RDW RDW Differential Plt Count MPV Immature Gran % (Auto) Neut % (Auto) Lymph % (Auto) [place] % (Auto) Eos % (Auto) Baso % (Auto) Absolute Neuts (auto) Absolute Lymphs (auto) Total Counted PT INR APTT 68.3 H Sodium Potassium Chloride Carbon Dioxide Anion Gap BUN Creatinine Estim Creat Clear Calc Est GFR (MDRD) Af Amer Est GFR (MDRD) Non-Af BUN/Creatinine Ratio Glucose Calcium Total Bilirubin Direct Bilirubin AST ALT Alkaline Phosphatase Total Creatine Kinase B-Natriuretic Peptide Total Protein Albumin Globulin Triglycerides POC Glucose 117 H 100 04/02/18 04/03/18 04/03/18 22:48 05:06 05:45 WBC RBC Hgb Hct MCV MCH MCHC RDW RDW Differential Plt Count MPV Immature Gran % (Auto) Neut % (Auto) Lymph % (Auto) [place] % (Auto) Eos % (Auto) Baso % (Auto) Absolute Neuts (auto) Absolute Lymphs (auto) Total Counted PT INR APTT Sodium 146 H Potassium 3.1 L Chloride 107 Carbon Dioxide 28.0 Anion Gap 11 BUN 25 H Creatinine 1.00 Estim Creat Clear Calc 41.45 Est GFR (MDRD) Af Amer 70 Est GFR (MDRD) Non-Af 58 L BUN/Creatinine Ratio 25.0 H Glucose 123 H Calcium 8.3 L Total Bilirubin Direct Bilirubin AST ALT Alkaline Phosphatase Total Creatine Kinase B-Natriuretic Peptide Total Protein Albumin Globulin Triglycerides POC Glucose 94 123 H 04/03/18 04/03/18 05:45 05:45 WBC 13.1 H RBC 3.70 L Hgb 10.4 L Hct 33.1 L MCV 89.5 MCH 28.1 MCHC 31.4 L RDW 15.1 H RDW Differential 47.9 H Plt Count 289 MPV 10.3 Immature Gran % (Auto) 1.100 H Neut % (Auto) 83.0 H Lymph % (Auto) 11.5 L [place] % (Auto) 4.3 Eos % (Auto) 0.0 Baso % (Auto) 0.1 Absolute Neuts (auto) 10.9 H Absolute Lymphs (auto) 1.51 Total Counted Not Reportable PT 13.2 INR 1.0 APTT 34.2 Sodium Potassium Chloride Carbon Dioxide Anion Gap BUN Creatinine Estim Creat Clear Calc Est GFR (MDRD) Af Amer Est GFR (MDRD) Non-Af BUN/Creatinine Ratio Glucose Calcium Total Bilirubin Direct Bilirubin AST ALT Alkaline Phosphatase Total Creatine Kinase B-Natriuretic Peptide Total Protein Albumin Globulin Triglycerides POC Glucose Microbiology 04/01/18 11:30 Urine Catheter - Burk Urine Culture - Preliminary Culture exhibits no growth. 03/30/18 06:45 Blood Culture (Wb) - Left Hand Blood Culture - Preliminary No growth in 48 hours. 03/30/18 06:47 Blood Culture (Wb) - Right Hand Blood Culture - Preliminary No growth in 48 hours. 03/31/18 12:30 Sputum, Induced/Lukens Gram Stain - Final 03/31/18 12:30 Sputum, Induced/Lukens Respiratory Culture - Preliminary Culture exhibits no growth. 03/30/18 08:50 Sputum, Induced/Lukens Gram Stain - Final 03/30/18 08:50 Sputum, Induced/Lukens Respiratory Culture - Final Clinical Impression(s) from Imaging Studies Brain CT 03/30/18 04:57 IMPRESSION: 1. Negative for intracranial hemorrhage or acute intracranial disease. 2. Paranasal sinus disease and additional chronic changes, as above. Individualized dose optimization techniques were used for this CT. at 0701 Reported and signed by: Leonard Romeo MD Electronically Signed: Leonard Romeo, at 7:00 EST Tel , Service support , Chest X-Ray 03/30/18 05:06 IMPRESSION: 1. The endotracheal tube appears in good position and the NG tube tip lies at the GE junction. 2. Chronic lung disease with emphysema and interstitial fibrosis. Superimposed interstitial pulmonary edema is also suggested. at 0552 Reported and signed by: Leonard Romeo MD Electronically Signed: Leonard Romeo, at 5:51 EST Tel , Service support , Chest X-Ray 04/01/18 06:51 IMPRESSION: Stable examination. Electronically Signed: Marcos Lee MD at 13:25 EST , Service support , Chest CT 04/01/18 11:25 IMPRESSION: Findings suggestive of emphysema with scarring as described. Findings are suggestive of atelectasis and/or early infiltrates at the lung bases. Electronically Signed: Marcos Lee MD at 14:53 EST , Service support , ADDENDUM: 04/01/18 1507 Abdomen/Pelvis CT 04/01/18 11:26 IMPRESSION: Scarring at the lung bases with evidence of atelectasis and/or infiltrates with small bilateral effusions. Small bone emboli seen in the branches of the right and left lower lobe pulmonary artery. Slight distention of the gallbladder with small stones or sludge along the dependent portion of the gallbladder with a small amount of pericholecystic fluid. Infrarenal abdominal aortic aneurysm with a transverse dimension of 2.9 cm. Electronically Signed: Marcos Lee MD at 14:59 EST , Service support , Medical Necessity - Tobacco Use Smoking Status: Current every day smoker Assessment/Plan All Active Problems (Last Reviewed 03/06/18 @ 06:35 by Deanna Coker) Cholelithiasis NOS (Acute) Acute respiratory failure with hypoxia and hypercapnia (Acute) COPD with acute exacerbation (Acute) Gram-negative pneumonia (Acute) Acute hypercapnic respiratory failure (Acute) NSTEMI (non-ST elevated myocardial infarction) (Acute) COPD exacerbation (Acute) Congestive heart failure (Acute) RECOMMENDATIONS: 1. Proceed with cardiac catheterization this morning. 2. Right upper quadrant ultrasound pending. 3. Continue heparin drip as ordered. The patient will be transitioned to an oral anticoagulation regimen, once cardiac catheterization has been completed. 4. Continue antibiotics per infectious diseases discretion. 5. Continue bronchodilators and steroids. The patient's methylprednisone will be transition to prednisone 40 mg daily. 6. Encourage incentive spirometer use and mobilize patient as tolerated. 7. Perform walking oximetry study prior to consideration for discharge from the hospital. 8. The patient undoubtedly needs to follow-up in the pulmonary medicine clinic within 2 weeks of her discharge from the hospital. IMPRESSIONS: 1. Acute on chronic combined respiratory failure likely secondary to COPD with exacerbation The patient does have known severe COPD, based upon recent pulmonary function studies from February 2018. In addition, a recent 6-minute walk test revealed the need for 3 L/min with exertion at her baseline. The patient does have an extensive smoking history and continues to smoke daily. The patient's initial chest imaging studies did reveal chronic interstitial changes without focal consolidation. However, she was noted to have copious sputum production. A follow-up CT chest did reveal findings which could represent bibasilar airspace disease. The patient has been maintained on broad-spectrum antibiotics under the discretion of infectious diseases. In addition, she will be continued on bronchodilators along with steroids. The patient has done well following extubation and is currently maintaining saturations with her baseline supplemental oxygen requirement. Smoking cessation is strongly advisable. 2. Septic shock Resolved. While an underlying pulmonary infectious process is certainly a consideration, the patient's sputum cultures have not demonstrated any growth. At this time, the patient has defervesced, with antibiotics being managed by infectious diseases. 3. Pulmonary emboli Recent CT chest did reveal evidence of bilateral pulmonary emboli, for which the patient was initiated on a continuous heparin infusion. This will be continued until after the patient's cardiac catheterization has become completed. The patient will require eventual transition to an oral regimen, like Eliquis. 4. Systolic heart failure/pulmonary hypertension/troponin elevation Cardiology is currently following to assist with medical management. The patient is going to be taken for a cardiac catheterization this morning. 5. Acute kidney injury Resolved. Likely prerenal in etiology. Creatinine has improved with time. Continue to monitor urine output. There is no current indication for renal replacement therapy. 6. Continuous tobacco dependence/hypertension/hyperlipidemia/peripheral vascular disease Complicates care, management, recovery and prognosis. Continue nicotine replacement therapy. Physical therapy to continue to work with patient. This note was generated with [employer] dictation software. It may contain incorrect words, spelling, and punctuation that were not noted in checking the note before signing. Code Visit Inpatient E&M: 55189 Subs Hosp L3
--- NOTE | 2018-04-03 07:30 | PCM.PN.HOSP ---
Patient Problems: Active and Suspected Problems (Last Reviewed 03/06/18 @ 06:35 by Deanna Coker) Cholelithiasis NOS (Acute) Subjective: Was successfully weaned off the vent to the day prior. Events from last night reviewed. Patient diagnostic data at this morning significant for hypokalemia correction initiated patient underwent left heart catheterization this a.m. which did not demonstrate any hemodynamically significant obstructive lesions. Objective: GENERAL: She is cooperative HEENT: Atraumatic; EYES; Anicteric, Normal Conjunctiva NECK; supple, normal thyroid, RESPIRATORY: Diminished to auscultation bilaterally, CARDIOVASCULAR: Regular S1 S2, no audible murmurs GI: soft, non-tender, normoactive bowel sounds, : No Renal angle tenderness; EXTREMITIES: No edema, no clubbing, no cyanosis. MUSCULOSKELETAL: No Joint Tenderness; NEURO: No lateralizing signs SKIN: No Rash Vitals/I&O's: Vital Signs Temp Pulse Resp BP Pulse Ox 98.9 F 71 31 H 144/68 H 96 04/03/18 06:00 04/03/18 06:00 04/03/18 06:00 04/03/18 06:00 04/03/18 06:00 Oxygen Flow Rate (L/min) 2 Oxygen Delivery Method Nasal Cannula Weight: 73.3 kg Body Mass Index (BMI) 28.2 Intake and Output for Last 24 Hours 04/01/18 04/02/18 04/03/18 23:59 23:59 23:59 Intake Total 2438.8 / 2438.8 2959 / 2959 604.3 / 604.3 Output Total 1675 / 1675 3050 / 3050 350 / 350 Balance 763.8 / 763.8 -91 / -91 254.3 / 254.3 Microbiology Past 72 Hours 04/01/18 11:30 Urine Catheter - Burk Urine Culture - Preliminary Culture exhibits no growth. 03/30/18 06:45 Blood Culture (Wb) - Left Hand Blood Culture - Preliminary No growth in 48 hours. 03/30/18 06:47 Blood Culture (Wb) - Right Hand Blood Culture - Preliminary No growth in 48 hours. 03/31/18 12:30 Sputum, Induced/Lukens Gram Stain - Final 03/31/18 12:30 Sputum, Induced/Lukens Respiratory Culture - Preliminary Culture exhibits no growth. 03/30/18 08:50 Sputum, Induced/Lukens Gram Stain - Final 03/30/18 08:50 Sputum, Induced/Lukens Respiratory Culture - Final 03/31/18 11:15 Mucosa - Nose Respiratory Panel (PCR) - Final Laboratory Results 04/02/18 05:00: Total Bilirubin 0.30, Direct Bilirubin 0.12, AST 15, ALT 20, Alkaline Phosphatase 70, Total Protein 6.2 L, Albumin 2.6 L, Globulin 3.6 04/02/18 11:10: APTT 64.5 H 04/02/18 12:39: POC Glucose 117 H 04/02/18 18:05: APTT 68.3 H 04/02/18 18:10: POC Glucose 100 04/02/18 22:48: POC Glucose 94 04/03/18 05:06: POC Glucose 123 H 04/03/18 05:45: Sodium 146 H, Potassium 3.1 L, Chloride 107, Carbon Dioxide 28.0, Anion Gap 11, BUN 25 H, Creatinine 1.00, Estim Creat Clear Calc 41.45, Est GFR (MDRD) Af Amer 70, Est GFR (MDRD) Non-Af 58 L, BUN/Creatinine Ratio 25.0 H, Glucose 123 H, Calcium 8.3 L 04/03/18 05:45: WBC 13.1 H, RBC 3.70 L, Hgb 10.4 L, Hct 33.1 L, MCV 89.5, MCH 28.1, MCHC 31.4 L, RDW 15.1 H, RDW Differential 47.9 H, Plt Count 289, MPV 10.3, Immature Gran % (Auto) 1.100 H, Neut % (Auto) 83.0 H, Lymph % (Auto) 11.5 L, [place] % (Auto) 4.3, Eos % (Auto) 0.0, Baso % (Auto) 0.1, Absolute Neuts (auto) 10.9 H, Absolute Lymphs (auto) 1.51, Total Counted Not Reportable 04/03/18 05:45: PT 13.2, INR 1.0, APTT 34.2 Current Medications Acetaminophen (Tylenol) 650 mg PO Q6H PRN PRN PRN Reason: FEVER Aspirin (Aspirin, Baby) 81 mg PO DAILY@0800 NAIF Last Admin: 04/03/18 05:09 Dose: 81 mg Atorvastatin Calcium (Lipitor) 80 mg PO QHS [facility] Last Admin: 04/02/18 22:46 Dose: 80 mg Chlorhexidine Gluconate () 1 each TOPICAL DAILY [facility] Last Admin: 04/03/18 05:07 Dose: 1 each Clopidogrel Bisulfate (Plavix) 75 mg PO DAILY [facility] Last Admin: 04/03/18 05:09 Dose: 75 mg Famotidine (Pepcid) 20 mg PO BID [facility] Last Admin: 04/03/18 05:09 Dose: 20 mg Heparin Sodium (Porcine) (Heparin Na) 0 unit IV UD PRN; Protocol Sodium Chloride () 250 mls @ 15 mls/hr IV .[id number] PRN PRN Reason: SALINE FLUSH Last Admin: 04/01/18 14:58 Dose: 15 mls/hr Sodium Chloride () 250 mls @ 15 mls/hr IV .[id number] PRN PRN Reason: SALINE FLUSH Piperacillin Sod/Tazobactam Sod (Zosyn) 3.375 gm in 50 mls @ 12.5 mls/hr IV Q8 [facility] Last Admin: 04/03/18 05:07 Dose: 12.5 mls/hr Heparin Sodium/Dextrose () 25,000 units in 250 mls @ 11 mls/hr IV .[id number] [facility]; Protocol Last Admin: 04/02/18 18:21 Dose: Not Given Sodium Chloride () 1,000 mls @ 0 mls/hr IV .Q0M [facility] Potassium Chloride () 10 meq in 100 mls @ 100 mls/hr IV BOLUS Q1H [facility] Stop: 04/03/18 11:59 Insulin Human Lispro (Humalog Kwikpen (Bkc)) 0 unit SC ACHS [facility]; Protocol Last Admin: 04/03/18 05:10 Dose: Not Given Levalbuterol HCl (Xopenex) 0.63 mg IH Q6HWA.RT [facility] Last Admin: 04/03/18 06:44 Dose: 0.63 mg Magnesium Hydroxide (Milk Of Magnesia) 30 ml PO DAILY PRN PRN PRN Reason: Constipation Methylprednisolone (Solu-Medrol) 40 mg IV Q6 [facility] Last Admin: 04/03/18 05:08 Dose: 40 mg Metoprolol Tartrate (Lopressor (Beta Tata)) 25 mg PO BID [facility] Last Admin: 04/02/18 22:47 Dose: 25 mg Nicotine (Nicoderm Cq (Pbkc)) 21 mg TRANSDERM. DAILY [facility] Last Admin: 04/02/18 10:55 Dose: 21 mg Sodium Chloride () 5 - 15 ml IV UD PRN PRN Reason: SALINE FLUSH Last Admin: 04/03/18 05:08 Dose: 10 ml Medical Necessity - Tobacco Use Smoking Status: Current every day smoker Assessment/Plan All Active Problems (Last Reviewed 03/06/18 @ 06:35 by Deanna Coker) Cholelithiasis NOS (Acute) Acute respiratory failure with hypoxia and hypercapnia (Acute) COPD with acute exacerbation (Acute) Gram-negative pneumonia (Acute) Acute hypercapnic respiratory failure (Acute) NSTEMI (non-ST elevated myocardial infarction) (Acute) COPD exacerbation (Acute) Congestive heart failure (Acute) Patient is a 73-year-old lady with history of COPD who was brought in on account of progressive shortness of breath patient was intubated as a result of acute respiratory failure 1. Acute hypercapnic and hypoxic respiratory failure secondary to COPD exacerbation: Patient was intubated admitted to the intensive care unit where he is currently being managed. Patient currently remains on steroids bronchodilator treatment in addition to being placed on the vent. Vent management deferred to pulmonary/critical care sheet was weaned off the vent on the morning of 04/02/2018. 2. Septic shock suspected to be secondary to upper respiratory tract infection versus pneumonia. Patient apparently did spike fever on the evening of 03/31/2018. Became hypotensive during the night Levophed was started antibiotics broadened with patient cultures have remained negative to date was also seen in consultation by infectious disease 4. Acute on chronic diastolic congestive heart failure: Chest x-ray obtained on admission demonstrated interstitial pulmonary edema Lasix initiated patient's ejection fraction on echo obtained in December 2017 was 55%. Lasix on hold in view of hypotension 5. Elevated troponin due to non-STEMI type II given patient underlying history of CAD with PCI in November 2017 consultation was placed to cardiology 6. Peripheral vascular disease 7. Essential hypertension; patient BP meds on hold in view of hypotension 8. Tobacco dependence 9. Gallbladder distention with small amount of pericholecystic fluid plan is to obtain surgical consultation if patient develops abdominal pain 10. DVT prophylaxis: SC Lovenox 11. Hypokalemia corrected per protocol Code Visit Inpatient E&M: 51536 Subs Hosp L3
--- NOTE | 2018-04-03 07:56 | NURSING ---
0739 [facility] FURNACE OPERATOR LEIGH JOSEPH AT BEDSIDE TAKING PATIENT DOWN TO HEART CATH
--- NOTE | 2018-04-03 09:53 | CL.D_ITS ---
Patient Name: ELLA MEYERS Study Date: 04/03/2018 Performing: Gilberto Rodrigues MD Ht: 62.99 inches 160 cm : 1945 Wt: 160.94 lbs 73 kg Age: 73 Gender: female BSA: 1.76 PROCEDURE(S) PERFORMED TD36-HWQ/COR/LV CLINICAL PROFILE AND INDICATIONS Indications: Suspected CAD Heart Failure: None Stress/Imaging Stress/Image Study Performed: No Angina Classification Anginal Classification w/in 2 Weeks: CCS IV CAD Presentations: Other: shortness of breath CONCLUSIONS Elevated Left Ventricular End Diastolic Pressure Segmented LV systolic dysfunction- Mild LVEF: by LV gram 50 % Koi Multivessel CAD RECOMMENDATIONS Risk factor modification Medical therapy DESCRIPTION OF PROCEDURE The patient arrived to the procedure lab. The risks and benefits of the procedure as well as a full d escription of our services here and current unavailability of surgical backup were fully explained to the patient and/or their significant other prior to the catheterization. The Timeout was completed, verifying the correct patient and procedure. The patient's procedural site was prepped and draped in the usual fashion. Local anesthetic was given subcutaneously to right groin region with Lidocaine 2%. Local anesthetic was given subcutaneously to right radial region with Lidocaine 2%. Using a modified Seldinger technique, arterial access was obtained via the right brachial artery, a 6Fr sheath was in serted. Right Coronary Artery selective angiography was performed in multiple views using a 4 Fr. JL 5 catheter. Left Coronary Artery selective angiography was performed in multiple views using a 4 Fr. JL5 catheter. Left Ventriculography was performed in MACHADO projection using a 4 Fr. Pigtail catheter. LV to AO pullback pressures were then recorded.The arterial sheath was pulled and manual co mpression applied until hemostasis is achieved. CORONARY ANGIOGRAPHY DOMINANCE: Co- Dominant LEFT HEART ASSESSMENT Left Ventricular Ejection Fraction: by LV Gram 50 % Anterior Hypokinesis. Apical Hypokinesis. Inferior Apical Hypokinesis Elevated Left Ventricular End Diastolic Pressure LEFT MAIN: Previously placed stent is patent LEFT ANTERIOR DECENDING ARTERY: Mild luminal irregularities PROX LAD: Eccentricd: 10-25 % Stenosis DIAGONAL 1: Ostial - Proximal: 75 % Stenosis CIRCUMFLEX ARTERY: Mild luminal irregularities OM 1: Ostial - Proximal: 75 % Stenosis RIGHT CORONARY ARTERY: PROX RCA: Previously placed stent is patent MID RCA: Previously placed stent is patent DISTAL RCA: Previously placed stent is patent RT PDA: Proximal - Mild luminal irregularities RIGHT AV SEGMENT: Mild luminal irregularities VALVE FINDINGS: Normal Aortic Valve function Normal Mitral Valve function AORTIC ROOT: Angiographically normal COMPLICATIONS No Complications PROCEDURE MEDICATIONS Versed 0.50 mg IV Oxygen: 3 L/min via nasal cannula Oxygen: 5 L/min via nasal cannula Benadryl 50 mg IV @ 04/03/2018 08:02:30 Heparin 2500 unit(s) IV 04/03/2018 08:57:14 Heparin diluted in 23cc Heparinized saline. Patient given 10cc IA of this solution. 04/03/2018 08:57: 26 Verapamil 2.5mg, Ntg 100mcgs, 2000 units of Heparin diluted in 23cc Heparinized saline. Patient give n 10cc IA of this solution. 04/03/2018 08:57:26 SUMMARY OF HEMODYNAMIC DATA Time AIR REST ECG 07:53:45 AO 134/94 (112) SA 09:00:04 LV 156/4, 37 09:05:56 LV 156/0, 36 09:06:03 LV 162/32, 58 09:07:02 LV 158/20, 41 09:07:10 LVp 158/19, 37 09:07:21 AOp 166/81 (117) 09:07:26 Signed By Gilberto Rodrigues MD On 04/03/2018 09:52:31 Gilberto Rodrigues MD
--- NOTE | 2018-04-03 09:59 | PCM.PN.CARD ---
Subjectve: The patient is now status post diagnostic cardiac catheterization. Based upon her peripheral vascular disease this was performed via the right brachial artery approach. She appeared to do well with no obvious adverse events. She has not complained of any new acute symptoms. She has chronic shortness of breath. Objective: Vital Signs Temp Pulse Resp BP Pulse Ox 99.2 F H 91 25 H 134/65 H 96 04/03/18 07:00 04/03/18 07:30 04/03/18 07:00 04/03/18 07:00 04/03/18 07:00 Oxygen Flow Rate (L/min) 2 Oxygen Delivery Method Nasal Cannula Weight: 161 lb 9.581 oz Body Mass Index (BMI) 28.2 Intake and Output for Last 24 Hours 04/01/18 04/02/18 04/03/18 23:59 23:59 23:59 Intake Total 2438.8 / 2438.8 2959 / 2959 604.3 / 604.3 Output Total 1675 / 1675 3050 / 3050 350 / 350 Balance 763.8 / 763.8 -91 / -91 254.3 / 254.3 General: Awake, Alert, Oriented x 3, Cooperative, No Acute Distress HEENT: Atraumatic, Normocephalic, PERRL Neck: Supple, Good ROM, No JVD Lungs: Rhonchi - Scattered , Inspiratory Wheezes - Jaspreet Cardiovascular: Regular Rhythm, Normal S1, Normal S2 Vascular: - - Normal right brachial pulse Abdomen: Bowel Sounds Present, Soft, Non Tender Extremities: No edema Psych/Mental Status: Appropriate 04/02/18 05:00: Total Bilirubin 0.30, Direct Bilirubin 0.12 04/02/18 11:10: APTT 64.5 H 04/02/18 18:05: APTT 68.3 H 04/03/18 05:45: Sodium 146 H, Potassium 3.1 L, Chloride 107, Carbon Dioxide 28.0, Anion Gap 11, BUN 25 H, Creatinine 1.00, Est GFR (MDRD) Af Amer 70, Est GFR (MDRD) Non-Af 58 L, BUN/Creatinine Ratio 25.0 H, Glucose 123 H, Calcium 8.3 L 04/03/18 05:45: WBC 13.1 H, RBC 3.70 L, Hgb 10.4 L, Hct 33.1 L, MCV 89.5, MCH 28.1, MCHC 31.4 L, RDW 15.1 H, RDW Differential 47.9 H, Plt Count 289, MPV 10.3, Immature Gran % (Auto) 1.100 H, Neut % (Auto) 83.0 H, Lymph % (Auto) 11.5 L, [place] % (Auto) 4.3, Eos % (Auto) 0.0, Baso % (Auto) 0.1, Absolute Neuts (auto) 10.9 H, Total Counted Not Reportable 04/03/18 05:45: PT 13.2, INR 1.0, APTT 34.2 Rhythm:Sinus rhythm EKG:Sinus rhythm; T-wave abnormality compatible myocardial ischemia in the anterior, lateral, and inferior distributions; appearing somewhat less prominent than prior ECG Cardiac Cath:Preliminary: Left main coronary artery stent patent; right coronary artery stent is patent; remainder of coronary anatomy similar to the previous diagnostic cardiac catheterization; left ventricle with regional wall motion abnormalities appearing compatible with an underlying Takotsubo syndrome Medical Necessity - Tobacco Use Smoking Status: Current every day smoker Assessment/Plan 1. Non ST segment elevation MS The patient presents with an underlying COPD exacerbation requiring mechanical intubation/ventilation. During this time she has been noted to have indeterminate troponin levels and abnormal ECG changes with dynamic T-wave changes. Her transthoracic echocardiogram was performed. She was noted to have left ventricular regional wall motion abnormalities and mildly diminished LV systolic function. Her findings were potentially compatible with Takotsubo syndrome. However contribution from her underlying CAD process cannot necessarily be excluded. She has now undergone evaluation with diagnostic cardiac catheterization. The findings are as noted above. At the present time she will continue medical management. Over time she can be considered for exercise tolerance test/imaging evaluation to consider the physiologic significance of her diagonal branch and OM branch vessel disease and whether or not she requires future revascularization therapy to those distributions. However, may be prudent to do this after she has recuperated from her acute pulmonary disease process. In the meantime she will continue medical management. 2. CAD status post PCI (left main and RCA) At the present time she has not complained of ongoing symptoms of chest discomfort. Her main concern has been her respiratory status. She has been found to have the aforementioned concerns. She will continue evaluation and care as noted above. 3. Hyperlipidemia She will continue medical management. 4. Hypertension Her blood pressures will be followed. She will continue medical therapy. 5. COPD exacerbation She continues evaluation care per pulmonology/critical care medicine. The above was discussed with Dr. Golden. This note was generated using a voice recognition system and there may be incorrect words, spelling or punctuation that were not noted when reviewing the office note prior to saving.
--- NOTE | 2018-04-03 09:59 | CASEMGMT ---
Soni from [facility] called about discharge plan. She states she is available for any questions at [phone]. JOSELYN Ellis, MEDICAL AFFAIRS SPECIALIST
[2018-04-03] MEDS: Potassium Chloride 10mEq/100mL 10 MEQ/100 ML IV.SOLN. 100 MEQ IV BOLUS ×4 (10:06→13:28)
[2018-04-03] MEDS: 0.9% Normal Saline 1,000 ML 50 ML IV (10:07)
[2018-04-03] MEDS: Metoprolol Tartrate 25 MG Tablet PO ×2 (10:11→21:56)
--- NOTE | 2018-04-03 10:34 | PN.ID_ITS ---
Patient Problems: Active and Suspected Problems (Last Reviewed 03/06/18 @ 06:35 by Deanna Coker) Cholelithiasis NOS (Acute) Subjective: Feeling ok,heart cath done, no fever. Reports some loose stool. No abd pain. - Physical Exam General: Alert, Cooperative, No apparent distress Lungs: Clear to auscultation, Normal air movement, Diminished Cardiovascular: Regular rate, Regular Rhythm Abdomen: Soft, Non Tender, Non-Distended Skin: No rashes Vital Signs Temp Pulse Resp BP Pulse Ox 99.2 F H 91 25 H 134/65 H 96 04/03/18 07:00 04/03/18 10:11 04/03/18 07:00 04/03/18 07:00 04/03/18 07:00 Oxygen Flow Rate (L/min) 2 Oxygen Delivery Method Nasal Cannula Weight: 73.3 kg Body Mass Index (BMI) 28.2 Intake and Output for Last 24 Hours 04/01/18 04/02/18 04/03/18 23:59 23:59 23:59 Intake Total 2438.8 / 2438.8 2959 / 2959 604.3 / 604.3 Output Total 1675 / 1675 3050 / 3050 350 / 350 Balance 763.8 / 763.8 -91 / -91 254.3 / 254.3 Microbiology Past 72 Hours 04/01/18 11:30 Urine Culture - Final Urine Catheter - Burk Culture exhibits no growth. 03/31/18 12:30 Gram Stain - Final Sputum, Induced/Lukens Respiratory Culture - Final Culture exhibits no growth. 03/30/18 06:45 Blood Culture - Preliminary Blood Culture (Wb) - Left Hand No growth in 48 hours. 03/30/18 06:47 Blood Culture - Preliminary Blood Culture (Wb) - Right Hand No growth in 48 hours. 03/30/18 08:50 Gram Stain - Final Sputum, Induced/Lukens Respiratory Culture - Final 03/31/18 11:15 Respiratory Panel (PCR) - Final Mucosa - Nose Laboratory Tests Past 24 Hrs 04/02/18 04/02/18 04/02/18 05:00 11:10 18:05 WBC RBC Hgb Hct MCV MCH MCHC RDW RDW Differential Plt Count MPV Immature Gran % (Auto) Neut % (Auto) Lymph % (Auto) [place] % (Auto) Eos % (Auto) Baso % (Auto) Absolute Neuts (auto) Absolute Lymphs (auto) Total Counted PT INR APTT 64.5 H 68.3 H Sodium Potassium Chloride Carbon Dioxide Anion Gap BUN Creatinine Estim Creat Clear Calc Est GFR (MDRD) Af Amer Est GFR (MDRD) Non-Af BUN/Creatinine Ratio Glucose Calcium Total Bilirubin 0.30 Direct Bilirubin 0.12 AST 15 ALT 20 Alkaline Phosphatase 70 Total Protein 6.2 L Albumin 2.6 L Globulin 3.6 04/03/18 04/03/18 04/03/18 05:45 05:45 05:45 WBC 13.1 H RBC 3.70 L Hgb 10.4 L Hct 33.1 L MCV 89.5 MCH 28.1 MCHC 31.4 L RDW 15.1 H RDW Differential 47.9 H Plt Count 289 MPV 10.3 Immature Gran % (Auto) 1.100 H Neut % (Auto) 83.0 H Lymph % (Auto) 11.5 L [place] % (Auto) 4.3 Eos % (Auto) 0.0 Baso % (Auto) 0.1 Absolute Neuts (auto) 10.9 H Absolute Lymphs (auto) 1.51 Total Counted Not Reportable PT 13.2 INR 1.0 APTT 34.2 Sodium 146 H Potassium 3.1 L Chloride 107 Carbon Dioxide 28.0 Anion Gap 11 BUN 25 H Creatinine 1.00 Estim Creat Clear Calc 41.45 Est GFR (MDRD) Af Amer 70 Est GFR (MDRD) Non-Af 58 L BUN/Creatinine Ratio 25.0 H Glucose 123 H Calcium 8.3 L Total Bilirubin Direct Bilirubin AST ALT Alkaline Phosphatase Total Protein Albumin Globulin POC Glucose 04/03/18 04/02/18 04/02/18 05:06 22:48 18:10 POC Glucose 123 H 94 100 04/02/18 12:39 POC Glucose 117 H Medical Necessity - Tobacco Use Smoking Status: Current every day smoker Route of nutrition/ use of supplements: [] Nutritional Intake: [] IV Site: [] Burk Catheter: [] - Assessment/Plan Antibiotics: [] Assessment/Plan: [] septic shock - unclear source. Cxs neg so far. Lungs with no new focal inf iltrate. CT chest showed PE, heparin gtt started. CT abd/pelvis showed biliary stones/sludge and small surrounding fluid. Had c/o abd pain to family prior to admit. Non tender on exam currently, LFTs are normal. RUQ u/s pending, appreciate surgery eval. Off vent, off pressors, overall much improved. On zosyn. Check cdiff if diarrhea returns. Will follow, d/w nursing
[2018-04-03] MEDS: Losartan Potassium 25 MG Tablet PO ×2 (10:37→21:56)
[2018-04-03] MEDS: Isosorbide Mononitrate 30 MG Tablet PO (10:38)
[2018-04-03] MEDS: predniSONE 20 MG Tablet 40 MG PO (11:17)
[2018-04-03 11:25] LABS: Bedside Glucose 110 mg/dL (70-110)
--- NOTE | 2018-04-03 14:02 | CASEMGMT ---
Addendum entered by Denver Aburto 04/03/18 14:33: Call received from Ashli @ [facility]. They are able to take referral on dc. Requesting call to notify with dc date, and fax DC Summary, Instructions to [phone] on dc. Original Note: RN RANDELL Note PT/OT evaluations completed 04/02. Pt used wheeled walker, 3' ambulation. Assist of 1 for activity. Family meeting with patient and RN RANDELL to discuss discharge needs. Family and patient are agreeable to Home Health RN, PT/OT. Choices discussed, [place] will be referred to. Family states pt will have assist at home 24/09 including transportation. -Call to Ashli @ [facility]. She will review case with anticipated start date of April 07. -Referral faxed to [facility]. [place] BACHN RN [facility]
[2018-04-03 17:01] LABS: Bedside Glucose 117 mg/dL (70-110)
--- NOTE | 2018-04-03 18:09 | US_ITS ---
STUDY: ABDOMINAL ULTRASOUND - RIGHT UPPER QUADRANT REASON FOR VISIT: Female, 73 years old. Abdominal pain. TECHNIQUE: Ultrasound evaluation of the right upper quadrant was performed with real-time and static singleton-scale imaging. TECHNICAL QUALITY: Adequate. COMPARISON: Comparison is made with prior CT scan and abdomen dated April 01, 2018. FINDINGS: Liver: The liver measures 17.6 cm. There is a heterogeneous echogenicity of the liver. Lobular contour of the liver. The bile ducts are within normal limits. There is hepatic color flow. The direction of portal flow is hepatopetal. There is no demonstrated mass lesion. Gallbladder: Normal distended gallbladder. The gallbladder wall is slightly thickened and measures 4.0 mm. There is a negative sonographic Robertson's sign. There is no pericholecystic fluid. There are multiple echogenic structures within the gallbladder, consistent with multiple gallstones. Common Bile Duct (C.B.D.): The common bile duct measures 6.0 mm. Pancreas: There is nonvisualization of the pancreas due to overlying bowel gas. Right Kidney: Normal size of the right kidney. The right kidney measures 8.6 cm x 4.6 cm x 4.1 cm. Normal renal cortex. The right cortex measures 1.3 cm. There is no demonstrated renal mass or cyst. There is no right hydronephrosis. US/Gallbladder IMPRESSION: Multiple gallstones. Heterogeneous appearance of the liver. Electronically Signed: Marcos Lee MD at 11:33 EST , Service support ,
[2018-04-03] MEDS: HEPARIN/D5w 25,000 UNITS 25,000 UNITS/250 ML IV.SOLN. 11 UNITS IV (21:57)
[2018-04-03] MEDS: Atorvastatin Calcium 80 MG Tablet PO (21:57)
--- NOTE | 2018-04-03 23:10 | CPS ---
pt refused to wear her AVAPS for the night. says she can't tolerate it
[2018-04-03 23:11] LABS: Bedside Glucose 108 mg/dL (70-110)
[2018-04-03] MEDS: Acetaminophen 325 MG Tablet 650 MG PO (23:20)
[2018-04-03 23:53] LABS: Partial Thromboplast Time 54.5 Seconds (24.1-36.2)
[2018-04-04] VITALS (19 sets, daily range): BP systolic 125–156; BP diastolic 52–80; PULSE 59–90; RESP 20–24; TEMP 36.4–37.3; O2SAT 97–100
[2018-04-04] MEDS: Heparin Injection (Vial) 5,000 UNIT/ML VIAL IV ×2 (00:05→19:56)
[2018-04-04] MEDS: Piperacil/Tazobactam 3.375 GM/50 ML ML IV ×3 (05:14→21:45)
[2018-04-04] MEDS: Acetaminophen 325 MG Tablet 650 MG PO ×4 (05:20→23:45)
--- NOTE | 2018-04-04 05:45 | NURSING ---
pt transferred to PCU on monitor.
[2018-04-04 06:03] LABS: Anion Gap 10 (5-15); BUN 25 mg/dL (7-18); BUN/Creat Ratio 23.8 RATIO (10-20); Calcium,Total 8.3 mg/dL (8.5-10.1); Chloride 110 mmol/L (98-107); Creatinine, Serum 1.05 mg/dL (0.55-1.02); EST Glomerular Filtration Rate 55 mL/min (>60); Est Glom Filt Rate - Afr Amer 66 mL/min (>60); Estimated Creatinine Clearance 39.47 ml/min; Glucose 90 mg/dL (74-106); Potassium 3.2 mmol/L (3.5-5.1); Sodium Level 147 mmol/L (136-145)
--- NOTE | 2018-04-04 06:05 | PCM.PN.BLA ---
Progress Note Pt very verbal this a.m. and states feels better than yesterday GB U/S: multiple stones Pt with PE and ASCVD with stents and anticoagulation and COPD/pneumonia If she can be medically maximized then future outpt surgical consultation can be pursued for possible Lap GB. I anticipate this will likely require 3-6months before she would be able to have her anticoagulation stopped for the procedure Dolly
[2018-04-04 06:11] LABS: Hematocrit 32.7 % (37-47); Hemoglobin 10.3 g/dl (12.0-15.0); Mean Corp Hgb Conc 31.5 g/gl (32-36); Mean Corpuscular Hgb 28.7 pg (27.0-32.0); Mean Corpuscular Volume 91.1 fL (81-99); Platelet Count 298 K/mm3 (150-450); RBC Distribution Width CV 15.4 % (11.6-14.6); RBC Distribution Width SD 49.6 fl (35.1-43.9); Red Blood Count 3.59 M/mm3 (4.2-5.4); White Blood Count 14.8 K/mm3 (4.4-11.0)
[2018-04-04 06:14] LABS: Differential Indicated MANUAL DIFF; POSITIVE COUNT YES; POSITIVE DIFFERENTIAL YES; POSITIVE MORPHOLOGY YES
[2018-04-04 06:49] LABS: Lymphocyte 23 % (19-41); Metamyelocyte 1 % (0-1); Monocyte 6 % (0-10); Neutrophil-Segmented 70 % (47-70); Nucleated Red Bld Cells,Manual 1 % (0-5); Total Cells Counted 100 (MANUAL DIFF)
[2018-04-04 06:50] LABS: Anisocytosis 1+; Hypochromasia 1+; Microcytosis 1+; Polychromasia 1+
[2018-04-04 06:51] LABS: Absolute Neutrophil Count 10.4 X10^3/uL (2.0-7.7)
[2018-04-04 06:56] LABS: Bedside Glucose 88 mg/dL (70-110)
--- NOTE | 2018-04-04 07:15 | PCM.PROGNOTE ---
Patient Problems: Active and Suspected Problems (Last Reviewed 03/06/18 @ 06:35 by Deanna Coker) Cholelithiasis NOS (Acute) Subjective: The patient was seen and examined at the bedside this morning. Events from the last 24 hours have been reviewed. The patient is currently afebrile, hemodynamically stable and maintaining appropriate oxygen saturations on her baseline 3 L/min supplemental oxygen requirement. Potassium is low this morning at 3.2. The patient underwent cardiac catheterization yesterday which revealed kenaitze multivessel coronary artery disease, along with an elevated LVEDP and mild segmental LV systolic dysfunction with an ejection fraction of 50%. Medical therapy was recommended. Objective: The patient's most recent lab work, culture data and imaging studies have all been personally reviewed. Blood cultures are pending. Respiratory viral panel was negative. Initial sputum culture dated March 30 appears to be normal respiratory damien. Repeat sputum culture from March 31 again demonstrated no growth. Surface echocardiogram completed March 31 revealed mild segmental systolic dysfunction with an ejection fraction of 45%. Right ventricular systolic pressure was estimated to be 39 mmHg. Gallbladder ultrasound revealed multiple gallstones. 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 A 6-minute walk test completed March 2018 revealed the need for 3 L/min of supplemental oxygen with any exertion. - Physical Exam General: Alert, Cooperative, No apparent distress HEENT: Atraumatic, PERRLA, Normocephalic Oral: No Gingival or Mucosal Lesions/ Ulcerations Neck: Supple, No Nodes, Trachea Midline Lungs: No rhonchi, No wheeze, No rales, Diminished Cardiovascular: Regular rate, Regular Rhythm, Normal S1, Normal S2, No murmurs Abdomen: Bowel Sounds Present, Soft, Non Tender Extremities: No clubbing, No cyanosis, No edema Skin: No breakdown Musculoskeletal: No Tenderness to Palpation of Joints or Extremities Lymphatic: No Cervical, Supraclavicular, or Inguinal Adenopathy Neurological: Neuro grossly intact Psych/Mental Status: Normal Affect, Appropriate Vital Signs Temp Pulse Resp BP Pulse Ox 36.6 C 67 20 H 139/80 H 99 04/04/18 06:10 04/04/18 06:17 04/04/18 06:11 04/04/18 06:10 04/04/18 06:11 Oxygen Flow Rate (L/min) 3 Oxygen Delivery Method Nasal Cannula Weight: 159 lb 13.362 oz Body Mass Index (BMI) 28.2 Intake and Output for Last 24 Hours 04/02/18 04/03/18 04/04/18 23:59 23:59 23:59 Intake Total 2959 / 2959 1334.3 / 1334.3 1082 / 1082 Output Total 3050 / 3050 800 / 800 350 / 350 Balance -91 / -91 534.3 / 534.3 732 / 732 Microbiology Past 72 Hours 04/04/18 02:55 C. difficile DNA Amplification - Final Stool 04/01/18 11:30 Urine Culture - Final Urine Catheter - Burk Culture exhibits no growth. 03/31/18 12:30 Gram Stain - Final Sputum, Induced/Lukens Respiratory Culture - Final Culture exhibits no growth. 03/30/18 06:45 Blood Culture - Preliminary Blood Culture (Wb) - Left Hand No growth in 48 hours. 03/30/18 06:47 Blood Culture - Preliminary Blood Culture (Wb) - Right Hand No growth in 48 hours. 03/30/18 08:50 Gram Stain - Final Sputum, Induced/Lukens Respiratory Culture - Final Laboratory Tests Past 24 Hrs 04/03/18 04/03/18 04/04/18 18:00 23:30 05:35 WBC 14.8 H RBC 3.59 L Hgb 10.3 L Hct 32.7 L MCV 91.1 MCH 28.7 MCHC 31.5 L RDW 15.4 H RDW Differential 49.6 H Plt Count 298 MPV 10.0 Neut % (Auto) Not Reportable Absolute Neuts (auto) 10.4 H Absolute Lymphs (auto) 3.40 Total Counted 100 Neutrophils % (Manual) 70 Lymphocytes % (Manual) 23 Monocytes % (Manual) 6 Metamyelocytes % 1 Nucleated RBCs/100 WBC 1 Diff Path Review May foll Polychromasia 1+ Hypochromasia 1+ Anisocytosis 1+ Microcytosis 1+ APTT 55.0 H 54.5 H Sodium Potassium Chloride Carbon Dioxide Anion Gap BUN Creatinine Estim Creat Clear Calc Est GFR (MDRD) Af Amer Est GFR (MDRD) Non-Af BUN/Creatinine Ratio Glucose Calcium 04/04/18 04/04/18 05:35 05:35 WBC RBC Hgb Hct MCV MCH MCHC RDW RDW Differential Plt Count MPV Neut % (Auto) Absolute Neuts (auto) Absolute Lymphs (auto) Total Counted Neutrophils % (Manual) Lymphocytes % (Manual) Monocytes % (Manual) Metamyelocytes % Nucleated RBCs/100 WBC Diff Path Review Polychromasia Hypochromasia Anisocytosis Microcytosis APTT 87.0 H Sodium 147 H Potassium 3.2 L Chloride 110 H Carbon Dioxide 27.0 Anion Gap 10 BUN 25 H Creatinine 1.05 H Estim Creat Clear Calc 39.47 Est GFR (MDRD) Af Amer 66 Est GFR (MDRD) Non-Af 55 L BUN/Creatinine Ratio 23.8 H Glucose 90 Calcium 8.3 L POC Glucose 04/04/18 04/03/18 04/03/18 06:48 21:54 16:56 POC Glucose 88 108 117 H 04/03/18 11:17 POC Glucose 110 Clinical Impression(s) from Imaging Studies Brain CT 03/30/18 04:57 IMPRESSION: 1. Negative for intracranial hemorrhage or acute intracranial disease. 2. Paranasal sinus disease and additional chronic changes, as above. Individualized dose optimization techniques were used for this CT. at 0701 Reported and signed by: Leonard Romeo MD Electronically Signed: Leonard Romeo, at 7:00 EST Tel , Service support , Chest X-Ray 03/30/18 05:06 IMPRESSION: 1. The endotracheal tube appears in good position and the NG tube tip lies at the GE junction. 2. Chronic lung disease with emphysema and interstitial fibrosis. Superimposed interstitial pulmonary edema is also suggested. at 0525 Reported and signed by: Leonard Romeo MD Electronically Signed: Leonard Romeo, at 5:51 EST Tel , Service support , Chest X-Ray 04/01/18 06:51 IMPRESSION: Stable examination. Electronically Signed: Marcos Lee MD at 13:25 EST , Service support , Chest CT 04/01/18 11:25 IMPRESSION: Findings suggestive of emphysema with scarring as described. Findings are suggestive of atelectasis and/or early infiltrates at the lung bases. Electronically Signed: Marcos Lee MD at 14:53 EST , Service support , ADDENDUM: 04/01/18 1507 Abdomen/Pelvis CT 04/01/18 11:26 IMPRESSION: Scarring at the lung bases with evidence of atelectasis and/or infiltrates with small bilateral effusions. Small bone emboli seen in the branches of the right and left lower lobe pulmonary artery. Slight distention of the gallbladder with small stones or sludge along the dependent portion of the gallbladder with a small amount of pericholecystic fluid. Infrarenal abdominal aortic aneurysm with a transverse dimension of 2.9 cm. Electronically Signed: Marcos Lee MD at 14:59 EST , Service support , Gallbladder Ultrasound 04/03/18 18:09 IMPRESSION: Multiple gallstones. Heterogeneous appearance of the liver. Electronically Signed: Marcos Lee MD at 11:33 EST , Service support , Medical Necessity - Tobacco Use Smoking Status: Current every day smoker Assessment/Plan All Active Problems (Last Reviewed 03/06/18 @ 06:35 by Deanna Coker) Cholelithiasis NOS (Acute) Acute respiratory failure with hypoxia and hypercapnia (Acute) COPD with acute exacerbation (Acute) Gram-negative pneumonia (Acute) Acute hypercapnic respiratory failure (Acute) NSTEMI (non-ST elevated myocardial infarction) (Acute) COPD exacerbation (Acute) Congestive heart failure (Acute) RECOMMENDATIONS: 1. Consider transitioning from continuous heparin infusion to Eliquis today. 2. Continue antibiotics per infectious diseases discretion. 3. Continue bronchodilators and steroids. Plan for prolonged steroid taper at discharge. 4. Encourage incentive spirometer use and mobilize patient as tolerated. 5. Perform walking oximetry study prior to consideration for discharge from the hospital. 6. The patient undoubtedly needs to follow-up in the pulmonary medicine clinic within 2 weeks of her discharge from the hospital. IMPRESSIONS: 1. Acute on chronic combined respiratory failure likely secondary to COPD with exacerbation The patient does have known severe COPD, based upon recent pulmonary function studies from February 2018. In addition, a recent 6-minute walk test revealed the need for 3 L/min with exertion at her baseline. The patient does have an extensive smoking history and continues to smoke daily. The patient's initial chest imaging studies did reveal chronic interstitial changes without focal consolidation. However, she was noted to have copious sputum production. A follow-up CT chest did reveal findings which could represent bibasilar airspace disease. The patient has been maintained on broad-spectrum antibiotics under the discretion of infectious diseases. In addition, she has been continued on bronchodilators along with steroids. The patient has done well following extubation and is currently maintaining saturations with her baseline supplemental oxygen requirement. Smoking cessation is strongly advisable. I would plan to perform a walking oximetry study prior to consideration for discharge from the hospital. The patient needs to be seen in the pulmonary medicine clinic within 2 weeks of her discharge from the hospital. 2. Septic shock Resolved. While an underlying pulmonary infectious process is certainly a consideration, the patient's sputum cultures have not demonstrated any growth. At this time, the patient has defervesced, with antibiotics being managed by infectious diseases. There was also concern that the patient may have a gallbladder source of infection as well, following CT abdomen/pelvis. The patient underwent an ultrasound of her gallbladder, which did reveal multiple stones, without evidence for cholecystitis. General surgery evaluated the patient and recommended outpatient follow-up with possible surgical intervention in the distant future. 3. Pulmonary emboli Recent CT chest did reveal evidence of bilateral pulmonary emboli, for which the patient was initiated on a continuous heparin infusion. At this time, now that the patient's cardiac catheterization is completed, would recommend transitioning the patient from heparin to Eliquis. 4. Systolic heart failure/pulmonary hypertension/troponin elevation Cardiology is currently following to assist with medical management. 5. Acute kidney injury Resolved. Likely prerenal in etiology. Creatinine has improved with time. Continue to monitor urine output. There is no current indication for renal replacement therapy. 6. Continuous tobacco dependence/hypertension/hyperlipidemia/peripheral vascular disease Complicates care, management, recovery and prognosis. Continue nicotine replacement therapy. Physical therapy to continue to work with patient. This note was generated with [employer] dictation software. It may contain incorrect words, spelling, and punctuation that were not noted in checking the note before signing. Code Visit Inpatient E&M: 58690 Subs Hosp L2
--- NOTE | 2018-04-04 07:25 | PN_ITS ---
Patient Problems: Active and Suspected Problems (Last Reviewed 03/06/18 @ 06:35 by Deanna Coker) Cholelithiasis NOS (Acute) Subjective: The patient was seen and examined at the bedside this morning. Events from the last 24 hours have been reviewed. The patient is currently afebrile, hemodynamically stable and maintaining appropriate oxygen saturations on her baseline 3 L/min supplemental oxygen requirement. Potassium is low this morning at 3.2. The patient underwent cardiac catheterization yesterday which revealed eagle multivessel coronary artery disease, along with an elevated LVEDP and mild segmental LV systolic dysfunction with an ejection fraction of 50%. Medical therapy was recommended. Objective: The patient's most recent lab work, culture data and imaging studies have all been personally reviewed. Blood cultures are pending. Respiratory viral panel was negative. Initial sputum culture dated March 30 appears to be normal respiratory damien. Repeat sputum culture from March 31 again demonstrated no growth. Surface echocardiogram completed March 31 revealed mild segmental systolic dysfunction with an ejection fraction of 45%. Right ventricular systolic pressure was estimated to be 39 mmHg. Gallbladder ultrasound revealed multiple gallstones. 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 A 6-minute walk test completed March 2018 revealed the need for 3 L/min of supplemental oxygen with any exertion. - Physical Exam General: Alert, Cooperative, No apparent distress HEENT: Atraumatic, PERRLA, Normocephalic Oral: No Gingival or Mucosal Lesions/ Ulcerations Neck: Supple, No Nodes, Trachea Midline Lungs: No rhonchi, No wheeze, No rales, Diminished Cardiovascular: Regular rate, Regular Rhythm, Normal S1, Normal S2, No murmurs Abdomen: Bowel Sounds Present, Soft, Non Tender Extremities: No clubbing, No cyanosis, No edema Skin: No breakdown Musculoskeletal: No Tenderness to Palpation of Joints or Extremities Lymphatic: No Cervical, Supraclavicular, or Inguinal Adenopathy Neurological: Neuro grossly intact Psych/Mental Status: Normal Affect, Appropriate Vital Signs Temp Pulse Resp BP Pulse Ox 36.6 C 67 20 H 139/80 H 99 04/04/18 06:10 04/04/18 06:17 04/04/18 06:11 04/04/18 06:10 04/04/18 06:11 Oxygen Flow Rate (L/min) 3 Oxygen Delivery Method Nasal Cannula Weight: 159 lb 13.362 oz Body Mass Index (BMI) 28.2 Intake and Output for Last 24 Hours 04/02/18 04/03/18 04/04/18 23:59 23:59 23:59 Intake Total 2959 / 2959 1334.3 / 1334.3 1082 / 1082 Output Total 3050 / 3050 800 / 800 350 / 350 Balance -91 / -91 534.3 / 534.3 732 / 732 Microbiology Past 72 Hours 04/04/18 02:55 C. difficile DNA Amplification - Final Stool 04/01/18 11:30 Urine Culture - Final Urine Catheter - Burk Culture exhibits no growth. 03/31/18 12:30 Gram Stain - Final Sputum, Induced/Lukens Respiratory Culture - Final Culture exhibits no growth. 03/30/18 06:45 Blood Culture - Preliminary Blood Culture (Wb) - Left Hand No growth in 48 hours. 03/30/18 06:47 Blood Culture - Preliminary Blood Culture (Wb) - Right Hand No growth in 48 hours. 03/30/18 08:50 Gram Stain - Final Sputum, Induced/Lukens Respiratory Culture - Final Laboratory Tests Past 24 Hrs 04/03/18 04/03/18 04/04/18 18:00 23:30 05:35 WBC 14.8 H RBC 3.59 L Hgb 10.3 L Hct 32.7 L MCV 91.1 MCH 28.7 MCHC 31.5 L RDW 15.4 H RDW Differential 49.6 H Plt Count 298 MPV 10.0 Neut % (Auto) Not Reportable Absolute Neuts (auto) 10.4 H Absolute Lymphs (auto) 3.40 Total Counted 100 Neutrophils % (Manual) 70 Lymphocytes % (Manual) 23 Monocytes % (Manual) 6 Metamyelocytes % 1 Nucleated RBCs/100 WBC 1 Diff Path Review May foll Polychromasia 1+ Hypochromasia 1+ Anisocytosis 1+ Microcytosis 1+ APTT 55.0 H 54.5 H Sodium Potassium Chloride Carbon Dioxide Anion Gap BUN Creatinine Estim Creat Clear Calc Est GFR (MDRD) Af Amer Est GFR (MDRD) Non-Af BUN/Creatinine Ratio Glucose Calcium 04/04/18 04/04/18 05:35 05:35 WBC RBC Hgb Hct MCV MCH MCHC RDW RDW Differential Plt Count MPV Neut % (Auto) Absolute Neuts (auto) Absolute Lymphs (auto) Total Counted Neutrophils % (Manual) Lymphocytes % (Manual) Monocytes % (Manual) Metamyelocytes % Nucleated RBCs/100 WBC Diff Path Review Polychromasia Hypochromasia Anisocytosis Microcytosis APTT 87.0 H Sodium 147 H Potassium 3.2 L Chloride 110 H Carbon Dioxide 27.0 Anion Gap 10 BUN 25 H Creatinine 1.05 H Estim Creat Clear Calc 39.47 Est GFR (MDRD) Af Amer 66 Est GFR (MDRD) Non-Af 55 L BUN/Creatinine Ratio 23.8 H Glucose 90 Calcium 8.3 L POC Glucose 04/04/18 04/03/18 04/03/18 06:48 21:54 16:56 POC Glucose 88 108 117 H 04/03/18 11:17 POC Glucose 110 Clinical Impression(s) from Imaging Studies Brain CT 03/30/18 04:57 IMPRESSION: 1. Negative for intracranial hemorrhage or acute intracranial disease. 2. Paranasal sinus disease and additional chronic changes, as above. Individualized dose optimization techniques were used for this CT. at 0701 Reported and signed by: Leonard Romeo MD Electronically Signed: Leonard Romeo, at 7:00 EST Tel , Service support , Chest X-Ray 03/30/18 05:06 IMPRESSION: 1. The endotracheal tube appears in good position and the NG tube tip lies at the GE junction. 2. Chronic lung disease with emphysema and interstitial fibrosis. Superimposed interstitial pulmonary edema is also suggested. at 0575 Reported and signed by: Leonard Romeo MD Electronically Signed: Leonard Romeo, at 5:51 EST Tel , Service support , Chest X-Ray 04/01/18 06:51 IMPRESSION: Stable examination. Electronically Signed: Marcos Lee MD at 13:25 EST , Service support , Chest CT 04/01/18 11:25 IMPRESSION: Findings suggestive of emphysema with scarring as described. Findings are suggestive of atelectasis and/or early infiltrates at the lung bases. Electronically Signed: Marcos Lee MD at 14:53 EST , Service support , ADDENDUM: 04/01/18 1507 Abdomen/Pelvis CT 04/01/18 11:26 IMPRESSION: Scarring at the lung bases with evidence of atelectasis and/or infiltrates with small bilateral effusions. Small bone emboli seen in the branches of the right and left lower lobe pulmonary artery. Slight distention of the gallbladder with small stones or sludge along the dependent portion of the gallbladder with a small amount of pericholecystic fluid. Infrarenal abdominal aortic aneurysm with a transverse dimension of 2.9 cm. Electronically Signed: Marcos Lee MD at 14:59 EST , Service support , Gallbladder Ultrasound 04/03/18 18:09 IMPRESSION: Multiple gallstones. Heterogeneous appearance of the liver. Electronically Signed: Marcos Lee MD at 11:33 EST , Service support , Medical Necessity - Tobacco Use Smoking Status: Current every day smoker Assessment/Plan All Active Problems (Last Reviewed 03/06/18 @ 06:35 by Deanna Coker) Cholelithiasis NOS (Acute) Acute respiratory failure with hypoxia and hypercapnia (Acute) COPD with acute exacerbation (Acute) Gram-negative pneumonia (Acute) Acute hypercapnic respiratory failure (Acute) NSTEMI (non-ST elevated myocardial infarction) (Acute) COPD exacerbation (Acute) Congestive heart failure (Acute) RECOMMENDATIONS: 1. Consider transitioning from continuous heparin infusion to Eliquis today. 2. Continue antibiotics per infectious diseases discretion. 3. Continue bronchodilators and steroids. Plan for prolonged steroid taper at discharge. 4. Encourage incentive spirometer use and mobilize patient as tolerated. 5. Perform walking oximetry study prior to consideration for discharge from the hospital. 6. The patient undoubtedly needs to follow-up in the pulmonary medicine clinic within 2 weeks of her discharge from the hospital. IMPRESSIONS: 1. Acute on chronic combined respiratory failure likely secondary to COPD with exacerbation The patient does have known severe COPD, based upon recent pulmonary function studies from February 2018. In addition, a recent 6-minute walk test revealed the need for 3 L/min with exertion at her baseline. The patient does have an extensive smoking history and continues to smoke daily. The patient's initial chest imaging studies did reveal chronic interstitial changes without focal consolidation. However, she was noted to have copious sputum production. A follow-up CT chest did reveal findings which could represent bibasilar airspace disease. The patient has been maintained on broad-spectrum antibiotics under the discretion of infectious diseases. In addition, she has been continued on bronchodilators along with steroids. The patient has done well following extubation and is currently maintaining saturations with her baseline supplemental oxygen requirement. Smoking cessation is strongly advisable. I would plan to perform a walking oximetry study prior to consideration for discharge from the hospital. The patient needs to be seen in the pulmonary medicine clinic within 2 weeks of her discharge from the hospital. 2. Septic shock Resolved. While an underlying pulmonary infectious process is certainly a consideration, the patient's sputum cultures have not demonstrated any growth. At this time, the patient has defervesced, with antibiotics being managed by inf ectious diseases. There was also concern that the patient may have a gallbladder source of infection as well, following CT abdomen/pelvis. The patient underwent an ultrasound of her gallbladder, which did reveal multiple stones, without evidence for cholecystitis. General surgery evaluated the patient and recommended outpatient follow-up with possible surgical intervention in the distant future. 3. Pulmonary emboli Recent CT chest did reveal evidence of bilateral pulmonary emboli, for which the patient was initiated on a continuous heparin infusion. At this time, now that the patient's cardiac catheterization is completed, would recommend transitioning the patient from heparin to Eliquis. 4. Systolic heart failure/pulmonary hypertension/troponin elevation Cardiology is currently following to assist with medical management. 5. Acute kidney injury Resolved. Likely prerenal in etiology. Creatinine has improved with time. Continue to monitor urine output. There is no current indication for renal replacement therapy. 6. Continuous tobacco dependence/hypertension/hyperlipidemia/peripheral vascular disease Complicates care, management, recovery and prognosis. Continue nicotine replacement therapy. Physical therapy to continue to work with patient. This note was generated with [employer] dictation software. It may contain incorrect words, spelling, and punctuation that were not noted in checking the note before signing. Code Visit Inpatient E&M: 21588 Subs Hosp L2
[2018-04-04] MEDS: Aspirin 81 MG TAB.CHEW PO (08:43)
[2018-04-04] MEDS: predniSONE 20 MG Tablet 40 MG PO (08:43)
[2018-04-04] MEDS: Losartan Potassium 25 MG Tablet PO ×2 (09:04→21:45)
[2018-04-04] MEDS: Isosorbide Mononitrate 30 MG Tablet PO (09:04)
[2018-04-04] MEDS: Famotidine 20 MG Tablet PO ×2 (09:04→21:46)
[2018-04-04] MEDS: Metoprolol Tartrate 25 MG Tablet PO ×2 (09:09→21:45)
[2018-04-04] MEDS: Potassium Chloride 10mEq/100mL 10 MEQ/100 ML IV.SOLN. 100 MEQ IV BOLUS ×4 (09:31→14:53)
--- NOTE | 2018-04-04 09:48 | PCM.PN.HOSP ---
Patient Problems: Active and Suspected Problems (Last Reviewed 03/06/18 @ 06:35 by Deanna Coker) Cholelithiasis NOS (Acute) Subjective: Patient seen breathing still remains labored at rest. patient underwent left heart catheterization on 03/24/2018; findings included: Left main coronary artery stent patent; right coronary artery stent is patent; remainder of coronary anatomy similar to the previous diagnostic cardiac catheterization; left ventricle with regional wall motion abnormalities appearing compatible with an underlying Takotsubo syndrome 04/04/2018: Potassium still remains low. Started scheduled potassium Objective: GENERAL: Cooperative but dyspneic at rest HEENT: Atraumatic; EYES; Anicteric, Normal Conjunctiva NECK; supple, normal thyroid, RESPIRATORY: Diminished to auscultation bilaterally, CARDIOVASCULAR: Regular S1 S2, no audible murmurs GI: soft, non-tender, normoactive bowel sounds, : No Renal angle tenderness; EXTREMITIES: No edema, no clubbing, no cyanosis. MUSCULOSKELETAL: No Joint Tenderness; NEURO: No lateralizing signs SKIN: No Rash Vitals/I&O's: Vital Signs Temp Pulse Resp BP Pulse Ox 97.9 F 87 20 H 156/55 H 98 04/04/18 06:10 04/04/18 09:09 04/04/18 06:11 04/04/18 09:09 04/04/18 07:00 Oxygen Flow Rate (L/min) 3 Oxygen Delivery Method Nasal Cannula Weight: 72.5 kg Body Mass Index (BMI) 28.2 Intake and Output for Last 24 Hours 04/02/18 04/03/18 04/04/18 23:59 23:59 23:59 Intake Total 2959 / 2959 1334.3 / 1334.3 1082 / 1082 Output Total 3050 / 3050 800 / 800 350 / 350 Balance -91 / -91 534.3 / 534.3 732 / 732 Microbiology Past 72 Hours 03/30/18 06:47 Blood Culture (Wb) - Right Hand Blood Culture - Final No growth in 5 days. 03/30/18 06:45 Blood Culture (Wb) - Left Hand Blood Culture - Final No growth in 5 days. 04/04/18 02:55 Stool C. difficile DNA Amplification - Final 04/01/18 11:30 Urine Catheter - Burk Urine Culture - Final Culture exhibits no growth. 03/31/18 12:30 Sputum, Induced/Lukens Gram Stain - Final 03/31/18 12:30 Sputum, Induced/Lukens Respiratory Culture - Final Culture exhibits no growth. 03/30/18 08:50 Sputum, Induced/Lukens Gram Stain - Final 03/30/18 08:50 Sputum, Induced/Lukens Respiratory Culture - Final Laboratory Results 04/03/18 11:17: POC Glucose 110 04/03/18 16:56: POC Glucose 117 H 04/03/18 18:00: APTT 55.0 H 04/03/18 21:54: POC Glucose 108 04/03/18 23:30: APTT 54.5 H 04/04/18 05:35: WBC 14.8 H, RBC 3.59 L, Hgb 10.3 L, Hct 32.7 L, MCV 91.1, MCH 28.7, MCHC 31.5 L, RDW 15.4 H, RDW Differential 49.6 H, Plt Count 298, MPV 10.0, Neut % (Auto) Not Reportable, Absolute Neuts (auto) 10.4 H, Absolute Lymphs (auto) 3.40, Total Counted 100, Neutrophils % (Manual) 70, Lymphocytes % (Manual) 23, Monocytes % (Manual) 6, Metamyelocytes % 1, Nucleated RBCs/100 WBC 1, Diff Path Review May foll, Polychromasia 1+, Hypochromasia 1+, Anisocytosis 1+, Microcytosis 1+ 04/04/18 05:35: Sodium 147 H, Potassium 3.2 L, Chloride 110 H, Carbon Dioxide 27.0, Anion Gap 10, BUN 25 H, Creatinine 1.05 H, Estim Creat Clear Calc 39.47, Est GFR (MDRD) Af Amer 66, Est GFR (MDRD) Non-Af 55 L, BUN/Creatinine Ratio 23.8 H, Glucose 90, Calcium 8.3 L 04/04/18 05:35: APTT 87.0 H 04/04/18 06:48: POC Glucose 88 Current Medications Acetaminophen (Tylenol) 650 mg PO Q6H PRN PRN PRN Reason: FEVER Last Admin: 04/04/18 05:20 Dose: 650 mg Aspirin (Aspirin, Baby) 81 mg PO DAILY@0800 NAIF Last Admin: 04/04/18 08:43 Dose: 81 mg Atorvastatin Calcium (Lipitor) 80 mg PO QHS [facility] Last Admin: 04/03/18 21:57 Dose: 80 mg Clopidogrel Bisulfate (Plavix) 75 mg PO DAILY [facility] Last Admin: 04/03/18 05:09 Dose: 75 mg Famotidine (Pepcid) 20 mg PO BID [facility] Last Admin: 04/04/18 09:04 Dose: 20 mg Heparin Sodium (Beef Lung) (Heparin 500 Unit/5 Ml (100/Ml)) 500 unit IV UD PRN PRN Reason: HEPARIN FLUSH Heparin Sodium (Porcine) (Heparin Na) 0 unit IV UD PRN; Protocol Last Admin: 04/04/18 00:05 Dose: 1,000 unit Sodium Chloride () 250 mls @ 15 mls/hr IV .[id number] PRN PRN Reason: SALINE FLUSH Last Admin: 04/01/18 14:58 Dose: 15 mls/hr Sodium Chloride () 250 mls @ 15 mls/hr IV .[id number] PRN PRN Reason: SALINE FLUSH Piperacillin Sod/Tazobactam Sod (Zosyn) 3.375 gm in 50 mls @ 12.5 mls/hr IV Q8 [facility] Last Admin: 04/04/18 05:14 Dose: 12.5 mls/hr Heparin Sodium/Dextrose () 25,000 units in 250 mls @ 11 mls/hr IV .[id number] [facility]; Protocol Last Admin: 04/03/18 21:57 Dose: 11 mls/hr Sodium Chloride () 1,000 mls @ 0 mls/hr IV .Q0M [facility] Potassium Chloride () 10 meq in 100 mls @ 100 mls/hr IV BOLUS Q1H [facility] Stop: 04/04/18 11:59 Last Admin: 04/04/18 09:31 Dose: 100 mls/hr Insulin Human Lispro (Humalog Kwikpen (Bkc)) 0 unit SC ACHS [facility]; Protocol Last Admin: 04/04/18 08:03 Dose: Not Given Isosorbide Mononitrate (Imdur) 30 mg PO DAILY [facility] Last Admin: 04/04/18 09:04 Dose: 30 mg Labetalol HCl (Trandate) 5 mg IV X1 PRN PRN Reason: SBP > 160 prior to sheath pull Stop: 04/05/18 09:18 Levalbuterol HCl (Xopenex) 0.63 mg IH Q6HWA.RT [facility] Last Admin: 04/03/18 19:00 Dose: 0.63 mg Losartan Potassium (Cozaar) 25 mg PO BID [facility] Last Admin: 04/04/18 09:04 Dose: 25 mg Magnesium Hydroxide (Milk Of Magnesia) 30 ml PO DAILY PRN PRN PRN Reason: Constipation Metoprolol Tartrate (Lopressor (Beta Tata)) 25 mg PO BID [facility] Last Admin: 04/04/18 09:09 Dose: 25 mg Nicotine (Nicoderm Cq (Pbkc)) 21 mg TRANSDERM. DAILY [facility] Last Admin: 04/04/18 09:04 Dose: 21 mg Potassium Chloride (K-Dur) 20 meq PO BIDCM [facility] Prednisone () 40 mg PO DAILY@0800 [facility] Last Admin: 04/04/18 08:43 Dose: 40 mg Sodium Chloride () 5 - 15 ml IV UD PRN PRN Reason: SALINE FLUSH Last Admin: 04/03/18 10:10 Dose: 10 ml Medical Necessity - Tobacco Use Smoking Status: Current every day smoker Assessment/Plan All Active Problems (Last Reviewed 03/06/18 @ 06:35 by eDanna Coker) Cholelithiasis NOS (Acute) Acute respiratory failure with hypoxia and hypercapnia (Acute) COPD with acute exacerbation (Acute) Gram-negative pneumonia (Acute) Acute hypercapnic respiratory failure (Acute) NSTEMI (non-ST elevated myocardial infarction) (Acute) COPD exacerbation (Acute) Congestive heart failure (Acute) Patient is a 73-year-old lady with history of COPD who was brought in on account of progressive shortness of breath patient was intubated as a result of acute respiratory failure 1. Acute hypercapnic and hypoxic respiratory failure secondary to COPD exacerbation: Patient was intubated admitted to the intensive care unit where he is currently being managed. Patient currently remains on steroids bronchodilator treatment in addition to being placed on the vent. Vent management deferred to pulmonary/critical care sheet was weaned off the vent on the morning of 04/02/2018. 2. Septic shock suspected to be secondary to upper respiratory tract infection versus pneumonia. Patient apparently did spike fever on the evening of 03/31/2018. Became hypotensive during the night Levophed was started antibiotics broadened with patient cultures have remained negative to date was also seen in consultation by infectious disease 4. Acute on chronic diastolic congestive heart failure: Chest x-ray obtained on admission demonstrated interstitial pulmonary edema Lasix initiated patient's ejection fraction on echo obtained in December 2017 was 55%. Lasix on hold in view of hypotension 5. Elevated troponin due to non-STEMI type II given patient underlying history of CAD with PCI in November 2017 consultation was placed to cardiology patient underwent left heart catheterization on 03/24/2018; findings included: Left main coronary artery stent patent; right coronary artery stent is patent; remainder of coronary anatomy similar to the previous diagnostic cardiac catheterization; left ventricle with regional wall motion abnormalities appearing compatible with an underlying Takotsubo syndrome 6. Acute pulmonary embolism; CT of the chest obtained on 04/01/2018 demonstrated filling defect in the branches of the left and right lower pulmonary arteries consistent with pulmonary embolism. Patient currently on systemic anticoagulation 7. Essential hypertension; patient BP meds on hold in view of hypotension 8. Tobacco dependence 9. Gallbladder distention with small amount of pericholecystic fluid also patient was placed to Dr. Sandhu with general surgery his notes and recommendations reviewed 10. Peripheral vascular disease 11. Hypokalemia corrected per protocol. Patient was placed on scheduled p.o. potassium Code Visit Inpatient E&M: [id number] [facility] Hosp L3
--- NOTE | 2018-04-04 11:19 | CASEMGMT ---
MILE called patient's daughter, Lynn and left her a voice mail asking if the plan is still home with [facility]. Patient did a little better with therapy today. MILE also called [facility] and let them know patient may be d/c over the weekend. MILE also placed a greed sheet on patient's chart. Plan: Home with daughter and [facility]. Brenda GARZON MSW
[2018-04-04 11:21] LABS: Bedside Glucose 106 mg/dL (70-110)
--- NOTE | 2018-04-04 11:23 | PCM.PN.CARD ---
Subjectve: The patient states she feels better overall. However she still has chronic shortness of breath dyspnea and audible wheezing at times. Objective: Vital Signs Temp Pulse Resp BP Pulse Ox 97.9 F 87 20 H 156/55 H 98 04/04/18 06:10 04/04/18 09:09 04/04/18 06:11 04/04/18 09:09 04/04/18 07:00 Oxygen Flow Rate (L/min) 3 Oxygen Delivery Method Nasal Cannula Weight: 159 lb 13.362 oz Body Mass Index (BMI) 28.2 Intake and Output for Last 24 Hours 04/02/18 04/03/18 04/04/18 23:59 23:59 23:59 Intake Total 2959 / 2959 1334.3 / 1334.3 1082 / 1082 Output Total 3050 / 3050 800 / 800 350 / 350 Balance -91 / -91 534.3 / 534.3 732 / 732 General: Awake, Alert, Oriented x 3, Cooperative, No Acute Distress HEENT: Atraumatic, Normocephalic, PERRL, EOMI, Sclera Non Icteric Oral: Moist Mucosa Neck: Supple, Good ROM, No JVD Lungs: Inspiratory Wheezes - Jaspreet, Expiratory Wheezes-Jaspreet Cardiovascular: Regular Rhythm, Normal S1, Normal S2 Abdomen: Bowel Sounds Present, Soft, Non Tender Extremities: No edema Skin: - - Right forearm ecchymoses; Right brachial artery pulse 2+/4+; No obvious bruit; no obvious hematoma Neurological: No Focal Motor or Sensory Deficit Psych/Mental Status: Appropriate 04/03/18 18:00: APTT 55.0 H 04/03/18 23:30: APTT 54.5 H 04/04/18 05:35: WBC 14.8 H, RBC 3.59 L, Hgb 10.3 L, Hct 32.7 L, MCV 91.1, MCH 28.7, MCHC 31.5 L, RDW 15.4 H, RDW Differential 49.6 H, Plt Count 298, MPV 10.0, Neut % (Auto) Not Reportable, Absolute Neuts (auto) 10.4 H, Total Counted 100, Neutrophils % (Manual) 70, Lymphocytes % (Manual) 23, Monocytes % (Manual) 6, Metamyelocytes % 1 04/04/18 05:35: Sodium 147 H, Potassium 3.2 L, Chloride 110 H, Carbon Dioxide 27.0, Anion Gap 10, BUN 25 H, Creatinine 1.05 H, Est GFR (MDRD) Af Amer 66, Est GFR (MDRD) Non-Af 55 L, BUN/Creatinine Ratio 23.8 H, Glucose 90, Calcium 8.3 L 04/04/18 05:35: APTT 87.0 H Rhythm:Sinus rhythm Medical Necessity - Tobacco Use Smoking Status: Current every day smoker Assessment/Plan 1. Non ST segment elevation PA The patient presents with an underlying COPD exacerbation requiring mechanical intubation/ventilation. During this time she has been noted to have indeterminate troponin levels and abnormal ECG changes with dynamic T-wave changes. Her transthoracic echocardiogram was performed. She was noted to have left ventricular regional wall motion abnormalities and mildly diminished LV systolic function. Her findings were potentially compatible with Takotsubo syndrome. She has now undergone evaluation with diagnostic cardiac catheterization. Her left main coronary artery stent and RCA stent were patent. She did not require additional revascularization therapy at this time. Her left ventricular Gram appeared potentially compatible with Takotsubo syndrome. At the present time she will continue medical management. Over time she can be considered for exercise tolerance test/imaging evaluation to consider the physiologic significance of her diagonal branch and OM branch vessel disease and whether or not she requires future revascularization therapy to those distributions. However, may be prudent to do this after she has recuperated from her acute pulmonary disease process. In the meantime she will continue medical management. 2. CAD status post PCI (left main and RCA) At the present time she has not complained of ongoing symptoms of chest discomfort. Her main concern has been her respiratory status. She has been found to have the aforementioned concerns. She will continue evaluation and care as noted above. 3. Hyperlipidemia She will continue medical management. 4. Hypertension Her blood pressures will be followed. She will continue medical therapy. 5. COPD exacerbation She continues evaluation care per pulmonology/critical care medicine. This note was generated using a voice recognition system and there may be incorrect words, spelling or punctuation that were not noted when reviewing the office note prior to saving.
--- NOTE | 2018-04-04 11:32 | CASEMGMT ---
SW received a return call from patient's daughter and the plan is still to return home with [facility]. Green sheet on chart. Brenda WILKERSON
[2018-04-04 13:20] LABS: Partial Thromboplast Time 67.7 Seconds (24.1-36.2)
--- NOTE | 2018-04-04 14:03 | PCM.PN.ID ---
Patient Problems: Active and Suspected Problems (Last Reviewed 03/06/18 @ 06:35 by Deanna Coker) Cholelithiasis NOS (Acute) Subjective: Feeling better, still some loose stool. No fever. No abd pain. - Physical Exam General: Alert, Cooperative, No apparent distress Lungs: Wheezes Cardiovascular: Regular rate, Regular Rhythm Abdomen: Soft, Non Tender, Non-Distended Skin: No rashes Vital Signs Temp Pulse Resp BP Pulse Ox 97.9 F 61 20 H 141/63 H 97 04/04/18 12:41 04/04/18 12:41 04/04/18 12:41 04/04/18 12:41 04/04/18 12:41 Oxygen Flow Rate (L/min) 4 Oxygen Delivery Method Nasal Cannula Weight: 72.5 kg Body Mass Index (BMI) 28.2 Intake and Output for Last 24 Hours 04/02/18 04/03/18 04/04/18 23:59 23:59 23:59 Intake Total 2959 / 2959 1334.3 / 1334.3 2127.7 / 2127.7 Output Total 3050 / 3050 800 / 800 350 / 350 Balance -91 / -91 534.3 / 534.3 1777.7 / 1777.7 Microbiology Past 72 Hours 03/30/18 06:47 Blood Culture - Final Blood Culture (Wb) - Right Hand No growth in 5 days. 03/30/18 06:45 Blood Culture - Final Blood Culture (Wb) - Left Hand No growth in 5 days. 04/04/18 02:55 C. difficile DNA Amplification - Final Stool 04/01/18 11:30 Urine Culture - Final Urine Catheter - Burk Culture exhibits no growth. 03/31/18 12:30 Gram Stain - Final Sputum, Induced/Lukens Respiratory Culture - Final Culture exhibits no growth. Laboratory Tests Past 24 Hrs 04/03/18 04/03/18 04/04/18 18:00 23:30 05:35 WBC 14.8 H RBC 3.59 L Hgb 10.3 L Hct 32.7 L MCV 91.1 MCH 28.7 MCHC 31.5 L RDW 15.4 H RDW Differential 49.6 H Plt Count 298 MPV 10.0 Neut % (Auto) Not Reportable Absolute Neuts (auto) 10.4 H Absolute Lymphs (auto) 3.40 Total Counted 100 Neutrophils % (Manual) 70 Lymphocytes % (Manual) 23 Monocytes % (Manual) 6 Metamyelocytes % 1 Nucleated RBCs/100 WBC 1 Diff Path Review May foll Polychromasia 1+ Hypochromasia 1+ Anisocytosis 1+ Microcytosis 1+ APTT 55.0 H 54.5 H Sodium Potassium Chloride Carbon Dioxide Anion Gap BUN Creatinine Estim Creat Clear Calc Est GFR (MDRD) Af Amer Est GFR (MDRD) Non-Af BUN/Creatinine Ratio Glucose Calcium 04/04/18 04/04/18 04/04/18 05:35 05:35 13:00 WBC RBC Hgb Hct MCV MCH MCHC RDW RDW Differential Plt Count MPV Neut % (Auto) Absolute Neuts (auto) Absolute Lymphs (auto) Total Counted Neutrophils % (Manual) Lymphocytes % (Manual) Monocytes % (Manual) Metamyelocytes % Nucleated RBCs/100 WBC Diff Path Review Polychromasia Hypochromasia Anisocytosis Microcytosis APTT 87.0 H 67.7 H Sodium 147 H Potassium 3.2 L Chloride 110 H Carbon Dioxide 27.0 Anion Gap 10 BUN 25 H Creatinine 1.05 H Estim Creat Clear Calc 39.47 Est GFR (MDRD) Af Amer 66 Est GFR (MDRD) Non-Af 55 L BUN/Creatinine Ratio 23.8 H Glucose 90 Calcium 8.3 L POC Glucose 04/04/18 04/04/18 04/03/18 11:10 06:48 21:54 POC Glucose 106 88 108 04/03/18 16:56 POC Glucose 117 H Medical Necessity - Tobacco Use Smoking Status: Current every day smoker Route of nutrition/ use of supplements: [] Nutritional Intake: [] IV Site: [] Burk Catheter: [] - Assessment/Plan Antibiotics: [] Assessment/Plan: [] septic shock - unclear source. Cxs neg so far. Lungs with no new focal infiltrate. CT chest showed PE, heparin gtt started. CT abd/pelvis showed biliary stones/sludge and small surrounding fluid. Had c/o abd pain to family prior to admit. Non tender on exam currently, LFTs are normal. RUQ u/s with stones. Off vent, off pressors, overall much improved. On zosyn. Cdiff was neg. Plan on stopping zosyn tomorrow to complete empiric course. Will follow
[2018-04-04 15:57] LABS: Pathologist Review Reviewed
[2018-04-04 17:10] LABS: Bedside Glucose 132 mg/dL (70-110)
[2018-04-04 19:31] LABS: Partial Thromboplast Time 48.2 Seconds (24.1-36.2)
[2018-04-04] MEDS: HEPARIN/D5w 25,000 UNITS 25,000 UNITS/250 ML IV.SOLN. 11 UNITS IV (20:11)
[2018-04-04] MEDS: Atorvastatin Calcium 80 MG Tablet PO (21:45)
[2018-04-04 22:06] LABS: Bedside Glucose 121 mg/dL (70-110)
[2018-04-05] VITALS (7 sets, daily range): BP systolic 112–131; BP diastolic 82–97; PULSE 57–75; RESP 24; TEMP 36.3; O2SAT 97–100
[2018-04-05 02:30] LABS: Partial Thromboplast Time 106.9 Seconds (24.1-36.2)
--- NOTE | 2018-04-05 04:29 | CPS ---
PT STATES SHE IS UNABLE TO WEAR THE BIPAP.
[2018-04-05] MEDS: Acetaminophen 325 MG Tablet 650 MG PO (05:59)
[2018-04-05] MEDS: Piperacil/Tazobactam 3.375 GM/50 ML ML IV (05:59)
[2018-04-05 06:51] LABS: Bedside Glucose 81 mg/dL (70-110)
--- NOTE | 2018-04-05 07:06 | NURSING ---
patient requesting breathing treatments this morning since she is SOB, but there was none on her MAR so i spoke with Dr. murry and she had me order albuterol Q2H and Duonebs Q6. when i went to place the orders, it alerted me that patient has an allergy to albuterol. when i asked patient if this is a true allergy she said yes but told me that some of her inhalers at home have albuterol in them and as long as she has bendaryl she is usually okay. but she would prefer not to take the albuterol aerosol. she stated she wants to use her inhaler meds from home and i told her i would have to notify the doctor and see if that would be okay, if not i would have to see what other breathing treatments we could order for her. I also spoke with RT about this and she said duonebs have albuterol in them as well and that the only other alternative would be atrovent but she doesn't feel that would be as successful in this COPD patient. i will pass along to dayshift RN about the conflict and see what breathing treatment we can get on board to help patient.
--- NOTE | 2018-04-05 07:38 | PN_ITS ---
Subjective: The patient was seen and examined at the bedside this morning. Events from the last 24 hours have been reviewed. The patient is currently afebrile, hemodynamically stable and maintaining appropriate oxygen saturations on 3 L/min via nasal cannula. The patient is currently overall net +9.8 L for the admission. Zosyn to be stopped today, per infectious diseases recommendations. Objective: The patient's most recent lab work, culture data and imaging studies have all been personally reviewed. Blood cultures are pending. Respiratory viral panel was negative. Initial sputum culture dated March 30 appears to be normal respiratory damien. Repeat sputum culture from March 31 again demonstrated no growth. Surface echocardiogram completed March 31 revealed mild segmental systolic dysfunction with an ejection fraction of 45%. Right ventricular systolic pressure was estimated to be 39 mmHg. Gallbladder ultrasound revealed multiple gallstones. 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 A 6-minute walk test completed March 2018 revealed the need for 3 L/min of supplemental oxygen with any exertion. - Physical Exam General: Alert, Cooperative, No apparent distress HEENT: Atraumatic, PERRLA, Normocephalic Oral: No Gingival or Mucosal Lesions/ Ulcerations Neck: Supple, No Nodes, Trachea Midline Lungs: No rhonchi, No rales, Diminished, - - Occasional wheeze noted. Cardiovascular: Regular rate, Regular Rhythm, Normal S1, Normal S2, No murmurs Abdomen: Bowel Sounds Present, Soft, Non Tender Extremities: No clubbing, No cyanosis, No edema Skin: No breakdown Musculoskeletal: No Tenderness to Palpation of Joints or Extremities Lymphatic: No Cervical, Supraclavicular, or Inguinal Adenopathy Neurological: Cranial nerves II-XII grossly intact, Neuro grossly intact Psych/Mental Status: Normal Affect, Appropriate Vital Signs Temp Pulse Resp BP Pulse Ox 36.3 C L 63 24 H 131/82 H 97 04/05/18 04:43 04/05/18 04:43 04/05/18 04:43 04/05/18 04:43 04/05/18 07:23 Oxygen Flow Rate (L/min) 3 Oxygen Delivery Method Nasal Cannula Weight: 162 lb 0.636 oz Body Mass Index (BMI) 28.2 Intake and Output for Last 24 Hours 04/03/18 04/04/18 04/05/18 23:59 23:59 23:59 Intake Total 1334.3 / 1334.3 3872.3 / 3872.3 382.8 / 382.8 Output Total 800 / 800 350 / 350 Balance 534.3 / 534.3 3522.3 / 3522.3 382.8 / 382.8 Microbiology Past 72 Hours 03/30/18 06:47 Blood Culture - Final Blood Culture (Wb) - Right Hand No growth in 5 days. 03/30/18 06:45 Blood Culture - Final Blood Culture (Wb) - Left Hand No growth in 5 days. 04/04/18 02:55 C. difficile DNA Amplification - Final Stool 04/01/18 11:30 Urine Culture - Final Urine Catheter - Burk Culture exhibits no growth. 03/31/18 12:30 Gram Stain - Final Sputum, Induced/Lukens Respiratory Culture - Final Culture exhibits no growth. Laboratory Tests Past 24 Hrs 04/04/18 04/04/18 04/04/18 05:35 13:00 19:10 Diff Path Review Reviewed APTT 67.7 H 48.2 H 04/05/18 01:58 Diff Path Review APTT 106.9 H* POC Glucose 04/05/18 04/04/18 04/04/18 06:42 21:43 17:01 POC Glucose 81 121 H 132 H 04/04/18 11:10 POC Glucose 106 Clinical Impression(s) from Imaging Studies Brain CT 03/30/18 04:57 IMPRESSION: 1. Negative for intracranial hemorrhage or acute intracranial disease. 2. Paranasal sinus disease and additional chronic changes, as above. Individualized dose optimization techniques were used for this CT. at 0701 Reported and signed by: Leonard Romeo MD Electronically Signed: Leonard Romeo, at 7:00 EST Tel , Service support , Chest X-Ray 03/30/18 05:06 IMPRESSION: 1. The endotracheal tube appears in good position and the NG tube tip lies at the GE junction. 2. Chronic lung disease with emphysema and interstitial fibrosis. Superimposed interstitial pulmonary edema is also suggested. at 0552 Reported and signed by: Leonard Romeo MD Electronically Signed: Leonard Romeo, at 5:51 EST Tel , Service support , Chest X-Ray 04/01/18 06:51 IMPRESSION: Stable examination. Electronically Signed: Marcos Lee MD at 13:25 EST , Service support , Chest CT 04/01/18 11:25 IMPRESSION: Findings suggestive of emphysema with scarring as described. Findings are suggestive of atelectasis and/or early infiltrates at the lung bases. Electronically Signed: Marcos Lee MD at 14:53 EST , Service support , ADDENDUM: 04/01/18 1507 Abdomen/Pelvis CT 04/01/18 11:26 IMPRESSION: Scarring at the lung bases with evidence of atelectasis and/or infiltrates with small bilateral effusions. Small bone emboli seen in the branches of the right and left lower lobe pulmonary artery. Slight distention of the gallbladder with small stones or sludge along the dependent portion of the gallbladder with a small amount of pericholecystic fluid. Infrarenal abdominal aortic aneurysm with a transverse dimension of 2.9 cm. Electronically Signed: Marcos Lee MD at 14:59 EST , Service support , Gallbladder Ultrasound 04/03/18 18:09 IMPRESSION: Multiple gallstones. Heterogeneous appearance of the liver. Electronically Signed: Marcos Lee MD at 11:33 EST , Service support , Medical Necessity - Tobacco Use Smoking Status: Current every day smoker Assessment/Plan All Active Problems (Last Reviewed 03/06/18 @ 06:35 by Deanna Coker) Pulmonary embolism (Acute) Cholelithiasis NOS (Acute) Acute respiratory failure with hypoxia and hypercapnia (Acute) COPD with acute exacerbation (Acute) Gram-negative pneumonia (Acute) Acute hypercapnic respiratory failure (Acute) NSTEMI (non-ST elevated myocardial infarction) (Acute) COPD exacerbation (Acute) Congestive heart failure (Acute) RECOMMENDATIONS: 1. Consider transitioning from continuous heparin infusion to Eliquis today. 2. Continue antibiotics per infectious diseases discretion. Antibiotics to be discontinued today. 3. Continue bronchodilators and steroids. Plan for prolonged steroid taper at discharge. 4. Encourage incentive spirometer use and mobilize patient as tolerated. 5. Perform walking oximetry study prior to consideration for discharge from the hospital. 6. The patient undoubtedly needs to follow-up in the pulmonary medicine clinic within 2 weeks of her discharge from the hospital. 7. Will sign off from a critical care perspective. Please call with any additional questions. IMPRESSIONS: 1. Acute on chronic combined respiratory failure likely secondary to COPD with exacerbation The patient does have known severe COPD, based upon recent pulmonary function studies from February 2018. In addition, a recent 6-minute walk test revealed the need for 3 L/min with exertion at her baseline. The patient does have an extensive smoking history and continues to smoke daily. The patient's initial chest imaging studies did reveal chronic interstitial changes without focal consolidation. However, she was noted to have copious sputum production. A follow-up CT chest did reveal findings which could represent bibasilar airspace disease. The patient has been maintained on broad-spectrum antibiotics under the discretion of infectious diseases. In addition, she has been continued on bronchodilators along with steroids. The patient has done well following extubation and is currently maintaining saturations with her baseline supplemental oxygen requirement. Smoking cessation is strongly advisable. I would plan to perform a walking oximetry study prior to consideration for discharge from the hospital. The patient needs to be seen in the pulmonary medicine clinic within 2 weeks of her discharge from the hospital. 2. Septic shock Resolved. While an underlying pulmonary infectious process is certainly a consideration, the patient's sputum cultures have not demonstrated any growth. At this time, the patient has defervesced, with antibiotics being managed by infectious diseases. There was also concern that the patient may have a gallbladder source of infection as well, following CT abdomen/pelvis. The patient underwent an ultrasound of her gallbladder, which did reveal multiple stones, without evidence for cholecystitis. General surgery evaluated the julito ent and recommended outpatient follow-up with possible surgical intervention in the distant future. 3. Pulmonary emboli Recent CT chest did reveal evidence of bilateral pulmonary emboli, for which the patient was initiated on a continuous heparin infusion. At this time, now that the patient's cardiac catheterization is completed, would recommend transitioning the patient from heparin to Eliquis. 4. Systolic heart failure/pulmonary hypertension/troponin elevation Cardiology is currently following to assist with medical management. 5. Acute kidney injury Resolved. Likely prerenal in etiology. Creatinine has improved with time. Continue to monitor urine output. There is no current indication for renal replacement therapy. 6. Continuous tobacco dependence/hypertension/hyperlipidemia/peripheral vascular disease Complicates care, management, recovery and prognosis. Continue nicotine replacement therapy. Physical therapy to continue to work with patient. This note was generated with [employer] dictation software. It may contain incorrect words, spelling, and punctuation that were not noted in checking the note before signing. Code Visit Inpatient E&M: 49097 Subs Hosp L2
[2018-04-05] MEDS: Aspirin 81 MG TAB.CHEW PO (08:11)
[2018-04-05] MEDS: predniSONE 20 MG Tablet 40 MG PO (08:11)
[2018-04-05] MEDS: Losartan Potassium 25 MG Tablet PO (08:12)
[2018-04-05] MEDS: Isosorbide Mononitrate 30 MG Tablet PO (08:12)
[2018-04-05] MEDS: Metoprolol Tartrate 25 MG Tablet PO (08:13)
[2018-04-05] MEDS: Famotidine 20 MG Tablet PO (08:14)
[2018-04-05] MEDS: Clopidogrel Bisulfate 75 MG Tablet PO (08:14)
--- NOTE | 2018-04-05 08:33 | DCINST_ITS ---
- Discharge Diagnoses Current Active Problems: Current Active and Chronic Problems (Last Reviewed 03/06/18 @ 06:35 by Deanna Coker) Cholelithiasis NOS (Acute) You will use the following diet at home:: Cardiac Discharge Activity: Return to Normal Activity, May not drive while taking narcotic pain medications. Allergies/Adverse Reactions: Allergies codeine Allergy (Unknown, Verified 03/30/18 05:15) Unknown lithium Allergy (Unknown, Verified 03/30/18 05:15) Unknown morphine Allergy (Unknown, Verified 03/30/18 05:15) Unknown naproxen [From Naprosyn] Allergy (Unknown, Verified 03/30/18 05:15) Unknown phenobarbital Allergy (Unknown, Verified 03/30/18 05:15) Unknown Sulfa (Sulfonamide Antibiotics) Allergy (Unknown, Verified 03/30/18 05:15) Unknown albuterol Allergy (Verified 03/30/18 05:15) Rash fentanyl Adverse Reaction (Severe, Verified 03/30/18 05:15) Other OD on Fentany patch. Very sensitive to does 75mcg patch Iodine and Iodide Containing Produc Adverse Reaction (Verified 03/30/18 05:15) Unknown Penicillins [PCN] Adverse Reaction (Verified 03/30/18 05:15) Unknown Medications to take at Discharge Amlodipine [Norvasc] 5 mg PO DAILY 07/13/14 Atorvastatin Calcium [Lipitor] 80 mg PO QHS 07/13/14 Cyclobenzaprine [Flexeril] 10 mg PO DAILY 07/13/14 Fenofibrate [Tricor] 145 mg PO DAILY 07/13/14 Gabapentin [Neurontin] 600 mg PO TIDCM 07/13/14 Fluticasone/Vilanterol [Breo Ellipta 200-25 Mcg INH] 1 ea IH DAILY 12/17/16 Paroxetine HCl [Paxil] 40 mg PO DAILY 12/17/16 diphenhydramine 25 mg tablet 25 mg PO Q6H PRN 03/20/17 nitroglycerin 0.4 mg sublingual tablet 0.4 mg SUBLINGUAL Q5M PRN #25 tab 03/25/17 ranolazine ER 500 mg tablet,extended release,12 hr 500 mg PO BID #180 tab 03/25/17 losartan 50 mg tablet 50 mg PO DAILY #90 tab 10/17/17 clopidogrel 75 mg tablet 75 mg PO DAILY #90 tab 10/23/17 Cholecalciferol (Vitamin D3) [Vitamin D3] 50,000 unit PO QWEEK 11/23/17 Levalbuterol HCl 0.63 mg INHALATION 4X/DAY PRN 11/23/17 Pantoprazole Sodium [Protonix] 20 mg PO BID 11/23/17 buPROPion SR [Wellbutrin SR (150mg tablets)] 150 mg PO DAILY 11/23/17 tiotropium bromide 2.5 mcg/actuation mist for inhalation 2 puff INHALATION QDAY #1 ea 12/10/17 isosorbide mononitrate ER 60 mg tablet,extended release 24 hr 90 mg PO DAILY tab 12/11/17 albuterol sulfate HFA 90 mcg/actuation aerosol inhaler 2 puff INHALATION Q6H PRN #18 g 01/29/18 Aspirin [Aspirin, Baby] 81 mg PO DAILY@0800 03/30/18 Atrovent Hfa 2 puff IH 4X/DAY 03/30/18 Metoprolol Tartrate 25 mg PO BID 03/30/18 Apixaban [Eliquis] 5 mg PO UD #120 tablet 04/05/18 Guaifenesin [Mucinex] 1,200 mg PO BID #14 tab 04/05/18 Potassium Chloride [K-Dur] 20 meq PO BIDCM #20 tablet 04/05/18 predniSONE tablet 40 mg PO DAILY@0800 #10 tablet 04/05/18 The following prescriptions were given: Apixaban [Eliquis] 5 mg PO UD #120 tablet Guaifenesin [Mucinex] 1,200 mg PO BID #14 tab Potassium Chloride [K-Dur] 20 meq PO BIDCM #20 tablet predniSONE tablet 40 mg PO DAILY@0800 #10 tablet Primary Care Physician: Darleen Craig MD [Primary Care Provider] - Please follow up with your Primary Care Physician in: in 5-7 days Test Results: Test results from this visit will be discussed in further detail at your follow- up appointment, if applicable. Proposed Discharge Date: 04/05/18
--- NOTE | 2018-04-05 08:33 | PCM.DC.SUM ---
Discharge Date and Diagnosis - Problem List Patient Problems: Active and Suspected Problems (Last Reviewed 03/06/18 @ 06:35 by Deanna Coker) Pulmonary embolism (Acute) Cholelithiasis NOS (Acute) Date of Admission: 11/23/17 Date of Discharge: 04/05/18 - Primary Discharge Diagnosis Active and Suspected Problems (Last Reviewed 03/06/18 @ 06:35 by Deanna Coker) Pulmonary embolism (Acute) Cholelithiasis NOS (Acute) - Secondary Discharge Diagnosis Chronic Problems (Last Reviewed 03/06/18 @ 06:35 by Deanna Coker) Presence of stent in coronary artery (Chronic) PTCA/SUSAN to ostium of LMT 10/01/2014 @[facility]; PTCA/SUSAN of the mid/distal RCA 11/11/17 CAD (coronary artery disease) (Chronic) Successful PTCA/SUSAN of the of mid/distal RCA with a 2.25 x 38 Promus Synergy, post dilated proximally with a 3.0 x 12 NC balloon at 8 safia (2.5mm); 75%-->0%, no dissection. Successful PTCA/SUSAN of the proximal RCA with a 2.5 x 20 Promus Synergy, post dilated with a 3.0 x 12 at 14 safia; 75%-->0%, no dissection. Tobacco abuse (Chronic) Nonrheumatic tricuspid (valve) insufficiency (Chronic) Nonrheumatic mitral valve insufficiency (Chronic) Nicotine dependence, cigarettes, uncomplicated (Chronic) Hypertension (Chronic) Hyperlipidemia (Chronic) Atherosclerosis of [place] coronary artery of [place] heart without angina pectoris (Chronic) PTCA/SUSAN to ostium of LMT 10/01/2014 @[facility]; PTCA/SUSAN to mid/distal RCA and proximal RCA in November 2017 at [facility]; Peripheral vascular disease (Chronic) SOB (shortness of breath) (Chronic) Hospital Course and Treatment Imaging Results: Clinical Impression(s) from Imaging Studies Brain CT 03/30/18 04:57 IMPRESSION: 1. Negative for intracranial hemorrhage or acute intracranial disease. 2. Paranasal sinus disease and additional chronic changes, as above. Individualized dose optimization techniques were used for this CT. at 0701 Reported and signed by: Leonard Romeo MD Electronically Signed: Leonard Romeo, at 7:00 EST Tel , Service support , Chest X-Ray 03/30/18 05:06 IMPRESSION: 1. The endotracheal tube appears in good position and the NG tube tip lies at the GE junction. 2. Chronic lung disease with emphysema and interstitial fibrosis. Superimposed interstitial pulmonary edema is also suggested. at 0552 Reported and signed by: Leonard Romeo MD Electronically Signed: Leonard Romeo, at 5:51 EST Tel , Service support , Chest X-Ray 04/01/18 06:51 IMPRESSION: Stable examination. Electronically Signed: Marcos Lee MD at 13:25 EST , Service support , Chest CT 04/01/18 11:25 IMPRESSION: Findings suggestive of emphysema with scarring as described. Findings are suggestive of atelectasis and/or early infiltrates at the lung bases. Electronically Signed: Marcos Lee MD at 14:53 EST , Service support , ADDENDUM: 04/01/18 1507 Abdomen/Pelvis CT 04/01/18 11:26 IMPRESSION: Scarring at the lung bases with evidence of atelectasis and/or infiltrates with small bilateral effusions. Small bone emboli seen in the branches of the right and left lower lobe pulmonary artery. Slight distention of the gallbladder with small stones or sludge along the dependent portion of the gallbladder with a small amount of pericholecystic fluid. Infrarenal abdominal aortic aneurysm with a transverse dimension of 2.9 cm. Electronically Signed: Marcos Lee MD at 14:59 EST , Service support , Gallbladder Ultrasound 04/03/18 18:09 IMPRESSION: Multiple gallstones. Heterogeneous appearance of the liver. Electronically Signed: Marcos Lee MD at 11:33 EST , Service support , Summary of Care Provided: Patient is a 73-year-old lady with history of COPD who was brought in on account of progressive shortness of breath patient was intubated as a result of acute respiratory failure 1. Acute hypercapnic and hypoxic respiratory failure secondary to COPD exacerbation: Patient was intubated admitted to the intensive care unit where he is currently being managed. Patient currently remains on steroids bronchodilator treatment in addition to being placed on the vent. Vent management deferred to pulmonary/critical care sheet was weaned off the vent on the morning of 04/02/2018.. Patient prior to discharge home was assessed for home O2 needs which she did qualify patient will be discharged home on continuous oxygen. She would need portability since she is mobile both in the community and at home. 2. Septic shock suspected to be secondary to upper respiratory tract infection versus pneumonia. Patient apparently did spike fever on the evening of 03/31/2018. Became hypotensive during the night Levophed was started antibiotics broadened with patient cultures have remained negative to date was also seen in consultation by infectious disease and did receive Zosyn for a total of 6 days no antibiotics were written on discharge 4. Acute on chronic diastolic congestive heart failure: Chest x-ray obtained on admission demonstrated interstitial pulmonary edema Lasix initiated patient's ejection fraction on echo obtained in December 2017 was 55%. Lasix on hold in view of hypotension 5. Elevated troponin due to non-STEMI type II given patient underlying history of CAD with PCI in November 2017 consultation was placed to cardiology patient underwent left heart catheterization on 03/24/2018; findings included: Left main coronary artery stent patent; right coronary artery stent is patent; remainder of coronary anatomy similar to the previous diagnostic cardiac catheterization; left ventricle with regional wall motion abnormalities appearing compatible with an underlying Takotsubo syndrome patient discharged home on recommended medications 6. Acute pulmonary embolism; CT of the chest obtained on 04/01/2018 demonstrated filling defect in the branches of the left and right lower pulmonary arteries consistent with pulmonary embolism. Patient treated with heparin discharged home on Eliquis 7. Essential hypertension; patient BP meds on hold in view of hypotension 8. Tobacco dependence counseled on cessation, offered nicotine patch for tobacco cravings 9. Gallbladder distention with small amount of pericholecystic fluid also patient was placed to Dr. Leo with general surgery his notes and recommendations reviewed 10. Peripheral vascular disease 11. Hypokalemia corrected per protocol. Patient was placed on scheduled p.o. potassium Patient Problems: Active and Suspected Problems (Last Reviewed 03/06/18 @ 06:35 by Deanna Coker) Pulmonary embolism (Acute) Cholelithiasis NOS (Acute) - Physical Exam General: Alert HEENT: Atraumatic Lungs: Diminished Neurological: Neuro grossly intact Psych/Mental Status: Normal Affect Vital Signs Temp Pulse Resp BP Pulse Ox 97.4 F L 75 24 H 112/97 H 97 04/05/18 04:43 04/05/18 08:13 04/05/18 04:43 04/05/18 08:13 04/05/18 07:23 Oxygen Flow Rate (L/min) 3 Oxygen Delivery Method Nasal Cannula Weight: 73.5 kg Body Mass Index (BMI) 28.2 Intake and Output for Last 24 Hours 04/03/18 04/04/18 04/05/18 23:59 23:59 23:59 Intake Total 1334.3 / 1334.3 3872.3 / 3872.3 382.8 / 382.8 Output Total 800 / 800 350 / 350 Balance 534.3 / 534.3 3522.3 / 3522.3 382.8 / 382.8 Microbiology Past 72 Hours 03/30/18 06:47 Blood Culture - Final Blood Culture (Wb) - Right Hand No growth in 5 days. 03/30/18 06:45 Blood Culture - Final Blood Culture (Wb) - Left Hand No growth in 5 days. 04/04/18 02:55 C. difficile DNA Amplification - Final Stool 04/01/18 11:30 Urine Culture - Final Urine Catheter - Burk Culture exhibits no growth. 03/31/18 12:30 Gram Stain - Final Sputum, Induced/Lukens Respiratory Culture - Final Culture exhibits no growth. Laboratory Tests Past 24 Hrs 04/04/18 04/04/18 04/04/18 05:35 13:00 19:10 Diff Path Review Reviewed APTT 67.7 H 48.2 H 04/05/18 01:58 Diff Path Review APTT 106.9 H* POC Glucose 04/05/18 04/04/18 04/04/18 06:42 21:43 17:01 POC Glucose 81 121 H 132 H 04/04/18 11:10 POC Glucose 106 Discharge Diet: Low fat/ Low Cholesterol Discharge Activity: Return to Normal Activity, May not drive while taking narcotic pain medications. Home Medications: Medications to take at Discharge Amlodipine [Norvasc] 5 mg PO DAILY 07/13/14 Atorvastatin Calcium [Lipitor] 80 mg PO QHS 07/13/14 Cyclobenzaprine [Flexeril] 10 mg PO DAILY 07/13/14 Fenofibrate [Tricor] 145 mg PO DAILY 07/13/14 Gabapentin [Neurontin] 600 mg PO TIDCM 07/13/14 Fluticasone/Vilanterol [Breo Ellipta 200-25 Mcg INH] 1 ea IH DAILY 12/17/16 Paroxetine HCl [Paxil] 40 mg PO DAILY 12/17/16 diphenhydramine 25 mg tablet 25 mg PO Q6H PRN 03/20/17 nitroglycerin 0.4 mg sublingual tablet 0.4 mg SUBLINGUAL Q5M PRN #25 tab 03/25/17 ranolazine ER 500 mg tablet,extended release,12 hr 500 mg PO BID #180 tab 03/25/17 losartan 50 mg tablet 50 mg PO DAILY #90 tab 10/17/17 clopidogrel 75 mg tablet 75 mg PO DAILY #90 tab 10/23/17 Cholecalciferol (Vitamin D3) [Vitamin D3] 50,000 unit PO QWEEK 11/23/17 Levalbuterol HCl 0.63 mg INHALATION 4X/DAY PRN 11/23/17 Pantoprazole Sodium [Protonix] 20 mg PO BID 11/23/17 buPROPion SR [Wellbutrin SR (150mg tablets)] 150 mg PO DAILY 11/23/17 tiotropium bromide 2.5 mcg/actuation mist for inhalation 2 puff INHALATION QDAY #1 ea 12/10/17 isosorbide mononitrate ER 60 mg tablet,extended release 24 hr 90 mg PO DAILY tab 12/11/17 albuterol sulfate HFA 90 mcg/actuation aerosol inhaler 2 puff INHALATION Q6H PRN #18 g 01/29/18 Aspirin [Aspirin, Baby] 81 mg PO DAILY@0800 03/30/18 Atrovent Hfa 2 puff IH 4X/DAY 03/30/18 Metoprolol Tartrate 25 mg PO BID 03/30/18 Apixaban [Eliquis] 5 mg PO UD #120 tablet 04/05/18 Guaifenesin [Mucinex] 1,200 mg PO BID #14 tab 04/05/18 Potassium Chloride [K-Dur] 20 meq PO BIDCM #20 tablet 04/05/18 predniSONE tablet 40 mg PO DAILY@0800 #10 tablet 04/05/18 Following Prescrptions Were Given to Patient: Apixaban [Eliquis] 5 mg PO UD #120 tablet Guaifenesin [Mucinex] 1,200 mg PO BID #14 tab Potassium Chloride [K-Dur] 20 meq PO BIDCM #20 tablet predniSONE tablet 40 mg PO DAILY@0800 #10 tablet Primary Care Physician: Darleen Craig MD [Primary Care Provider] - Please follow up with your Primary Care Physician in: in 5-7 days Disposition: Home Minutes spent on discharge:: 45 Patient Condition:: Stable Medical Necessity - Tobacco Use Smoking Status: Current every day smoker Meaningful Use Info Meaningful Use Diagnoses (Choose all that apply): AMI, CHF - AMI Aspirin given w/in 24hrs of arrival?: Yes ASA at discharge?: Yes Statins at discharge?: Yes Miguel/ARB at discharge?: Yes Beta Tata at discharge?: Yes Done w/ Acute VT measure.: Yes - CHF MIGUEL/ARB ordered at discharge?: Yes Documented LVEF (%): 55 Code Visit Inpatient E&M: 89645 Disch Hosp
--- NOTE | 2018-04-05 08:48 | PCA ---
Faxed discharge papers to [facility], office closed left a message on the oncall line notifying them of discharge for today. Patient already spoke with daughter on the phone about discharge.
[2018-04-05] MEDS: APIXABAN 5 MG TABLET 10 MG PO (09:51)
--- NOTE | 2018-04-07 15:12 | CASEMGMT ---
RN RANDELL WOOD PHONE CALL DC DATE: 04/05/18 DC DISPOSITION: Home w/HHS LACE/STRATA:15/06 Intro role of CM to pt's daughter. Home Health Nurse was @ home. Daughter states pt is doing well and no questions, if any arise, they would contact Home Health nurse. [place] BACHN RN ACM
== END 2018-04-05 10:31 | disposition home health service (06) | DRG 133 ==
LOC: ED 04:46 → ICU 08:04 → PCU 04-04 05:31
PROVIDERS: Emergency Medicine; Internal Medicine Cardiovascular Disease; Internal Medicine Critical Care Medicine; Admitting Provider Family Medicine; Emergency Provider Emergency Medicine; Family Provider Internal Medicine; PCP Internal Medicine; Visit Provider Internal Medicine
DX: J96.02 Acute respiratory failure with hypercapnia (principal); A41.9 Sepsis, unspecified organism; J96.01 Acute respiratory failure with hypoxia; N17.9 Acute kidney failure, unspecified; J44.1 Chronic obstructive pulmonary disease with (acute) exacerbation; I11.0 Hypertensive heart disease with heart failure; R65.21 Severe sepsis with septic shock; I50.33 Acute on chronic diastolic (congestive) heart failure; I21.A1 Myocardial infarction type 2; I26.99 Other pulmonary embolism without acute cor pulmonale; J44.0 Chronic obstructive pulmonary disease with (acute) lower respiratory infection; J18.9 Pneumonia, unspecified organism; J06.9 Acute upper respiratory infection, unspecified; I25.10 Atherosclerotic heart disease of native coronary artery without angina pectoris; K80.20 Calculus of gallbladder without cholecystitis without obstruction; E87.6 Hypokalemia; F17.210 Nicotine dependence, cigarettes, uncomplicated; E78.5 Hyperlipidemia, unspecified; I73.9 Peripheral vascular disease, unspecified; Z79.899 Other long term (current) drug therapy; Z95.5 Presence of coronary angioplasty implant and graft
CPT/HCPCS: 31500; 31720; 36415; 36569; 36600; 51702; 70450; 71045; 71260; 74177; 76705; 80048; 80076; 81001; 82550; 82803; 82962; 83605; 83735; 83880; 84100; 84478; 84484; 85025; 85027; 85610; 85730; 87040; 87070; 87086; 87205; 87493; 87633; 87641; 93005; 93306; 93458; 94002; 94003; 94640; 94660; 95831; 97116; 97162; 97166; 97530; 97802; 99152; 99153; 99251; 99284; J7030; J7050; J7120; Q9957; Q9967; A4216; C1769; C1894; C8929; G0463; J1940

== ENCOUNTER 2018-07-06 20:11 | Emergency (ER) | payer MEDICAID, SELFPAY ==
[2018-03-30 11:08] VITALS: BMI 28.2
[2018-07-06 20:12] VITALS: BP 96/55; PULSE 71; RESP 15; TEMP 36.4; O2SAT 95; BMI 29.9
--- NOTE | 2018-07-06 20:33 | RAD_ITS ---
STUDY: X-RAY CHEST REASON FOR EXAM: Female, 73 years old. Decreased intake. Weakness. TECHNIQUE: PA and lateral views of the chest. COMPARISON: April 01, 2018 FINDINGS: There are interstitial fibrotic changes of the lungs. There are right basilar curvilinear opacities. The lungs are hyperinflated. There is no demonstrated pleural abnormality. Normal size heart. Normal mediastinum and danielle. Normal visualized pulmonary arteries. There is atherosclerotic calcification of the aortic arch with tortuosity. There are diffuse degenerative changes of the visualized thoracic spine. Normal visualized ribs, clavicles, and shoulders. There is no demonstrated abnormality of the visualized soft tissue structures of the upper abdomen. RAD/Chest PA and Lateral IMPRESSION: Right basilar linear opacities likely secondary to underlying atelectasis however cannot exclude associated pneumonia. Chronic interstitial fibrotic changes. COPD. Electronically Signed: Kiaan Krishna MD at 21:27 EDT Tel , Service support ,
--- NOTE | 2018-07-06 20:33 | EKG12_ITS ---
Test Reason : GEN ILLNESS Blood Pressure : / mmHG Vent. Rate : 063 BPM Atrial Rate : 063 BPM P-R Int : 162 ms QRS Dur : 088 ms QT Int : 398 ms P-R-T Axes : 048 020 105 degrees QTc Int : 407 ms Normal sinus rhythm ST & T wave abnormality, consider anterolateral ischemia Abnormal ECG Confirmed by JOÃO IVEY, ANGIE ([id number]), rewrite editor BLUE PEDRO ([id number]) on 07/08/2018 1:32:03 PM Referred By: CYNTHIA Confirmed By:ANGIE MOYER MD
--- NOTE | 2018-07-06 20:37 | ED.DCSUM_ITS ---
History of Present Illness Chief Complaint: General Illness Informant: Patient Onset: Days - 2 Narrative: 2-day history of fatigue states sleeping all the time. History of COPD on 3 to 4 L of oxygen dependent on activity. States a mild productive cough over 2 days. No fevers. No chest pains. Remote tobacco. No nausea or vomiting or diarrhea. States decreased appetite. Tolerating oral fluids. Reports distant for light eating. No urinary symptoms. Triage notes weakness, however patient denies weakness. States just tired. Denies any other complaints. Prior similar symptoms: Yes Past Medical History - Allergies and Home Meds Allergies/Adverse Reactions: Allergies codeine Allergy (Unknown, Verified 07/06/18 20:16) Unknown lithium Allergy (Unknown, Verified 07/06/18 20:16) Unknown morphine Allergy (Unknown, Verified 07/06/18 20:17) Unknown naproxen [From Naprosyn] Allergy (Unknown, Verified 07/06/18 20:17) Unknown phenobarbital Allergy (Unknown, Verified 07/06/18 20:17) Unknown Sulfa (Sulfonamide Antibiotics) Allergy (Unknown, Verified 07/06/18 20:17) Unknown albuterol Allergy (Verified 07/06/18 20:17) Rash fentanyl Adverse Reaction (Severe, Verified 07/06/18 20:17) Other OD on Fentany patch. Very sensitive to does 75mcg patch Iodine and Iodide Containing Produc Adverse Reaction (Verified 07/06/18 20:17) Unknown Penicillins [PCN] Adverse Reaction (Verified 07/06/18 20:17) Unknown Primary Care Physician: Darleen Craig MD [Primary Care Provider] - Surgical History: appendectomy, - - cad with stent Smoking Status: Former smoker - Family History Maternal Family History: Family History (Last Reviewed 03/06/18 @ 06:35 by Deanna Coker) Mother CAD (coronary artery disease) Hypertension Sister CAD (coronary artery disease) Myocardial infarction Family History: Reports: Diabetes, Heart Disease, Stroke Paternal Family History: Family History (Last Reviewed 03/06/18 @ 06:35 by Deanna Coker) Mother CAD (coronary artery disease) Hypertension Sister CAD (coronary artery disease) Myocardial infarction Family History: Reports: Diabetes, Stroke Review of Systems General: Denies: Chills, Fever, Sweats Eyes: Denies: Visual changes - bilaterally, Diplopia ENT: Denies: Rhinorrhea, Sore throat Cardiovascular: Denies: Chest pain, Palpitations Respiratory: Reports: Cough, Sputum Gastrointestinal: Denies: Abdominal pain, Nausea, Vomiting, Diarrhea, Melena, Hematochezia Genitourinary: Denies: Dysuria, Hematuria, Frequency Musculoskeletal: Denies: Back pain, Extremity Pain Skin: Denies: Rash, Wounds Neurological: Denies: Headache, Weakness, Numbness Physical Exam Vital Signs/Narrative: Vital Signs Temp Pulse Resp BP Pulse Ox 07/06/18 20:12 97.5 F L 71 15 96/55 L 95 Inital Vital Signs reviewed: Yes General: Well nourished, Well developed, No Acute Distress, - - Stable on home oxygen settings. Head: Normocephalic, Atraumatic Eyes: Perrl, EOMI ENT: Moist mucous membranes, No rhinorrhea Neck: Supple, Nontender Cardiovascular: Regular rate, Regular rhythm, No murmurs Respiratory: No distress, CTA bilaterally, Chest nontender Abdomen: Soft, Nontender, Nondistended, Normal bowel sounds Back: Nontender, Normal Inspection Extremities: Nontender, No edema Skin: Normal color, No rash Neurological: Alert, Oriented x3, Cranial nerves II-XII grossly intact, Normal Strength, Normal Sensation Psychological: Normal affect, Normal Mood Diagnostic/Tx/Re-eval Chest X-Ray - ED: 2 View, Read by ED Physician, No Acute Disease Abnormal Lab Results 07/06/18 07/06/18 20:41 20:41 WBC 12.9 H RBC 4.56 Hgb 12.9 Hct 39.3 MCV 86.2 MCH 28.3 MCHC 32.8 RDW 13.8 RDW Differential 43.2 Plt Count 316 MPV 9.5 Immature Gran % (Auto) 0.200 Neut % (Auto) 79.4 H Lymph % (Auto) 10.1 L Russell % (Auto) 8.3 Eos % (Auto) 1.8 Baso % (Auto) 0.2 Absolute Neuts (auto) 10.2 H Absolute Lymphs (auto) 1.30 Total Counted Not Reportable Sodium 135 L Potassium 4.4 Chloride 106 Carbon Dioxide 23.0 Anion Gap 6 BUN 25 H Creatinine 1.33 H Estim Creat Clear Calc 29.80 Est GFR (MDRD) Af Amer 50 L Est GFR (MDRD) Non-Af 42 L BUN/Creatinine Ratio 18.8 Glucose 118 H Calcium 8.8 TSH 3.51 - EKG Initial EKG Interpretation: Sinus Rhythm - Sinus rate of 63, no ST changes. T wave inversions anterior lateral leads, old when compared to last EKG March 2018. - Medical Decision Making Patient vital signs stable O2 stable on home oxygen settings. There is no respiratory distress. Reports fatigue with a COPD flare. Work-up initiated EKG with chronic changes. Labs stable and a white count of 12.9 creatinine 1.33. Patient is tolerating oral hydration. Discussed with patient importance of eating for nutrition. I did check a TSH level with her fatigue and sleepiness. This was normal. She will be treated according to Gold's criteria for COPD. She started on doxycycline. She will follow-up with her PCP. Signs and symptom s discussed return. All questions were answered. ED Disposition - Plan for ED Patient: Disposition: Home or Assisted Living Diagnosis: COPD exacerbation Instructions: Chronic Lung Disease: Preventing Lung Infections Prescriptions: Doxycycline 100 mg PO BID #20 capsule Referrals: Darleen Craig MD [Primary Care Provider] - 3-5 Days
[2018-07-06 20:46] VITALS: O2SAT 92
[2018-07-06 20:48] LABS: Absolute Neutrophil Count 10.2 X10^3/uL (2.0-7.7); Basophil# 0.03 X10^3/uL; Basophil% 0.2 % (0-1); Eosinophil# 0.23 X10^3/uL; Eosinophils% 1.8 % (0-5); Hematocrit 39.3 % (37-47); Hemoglobin 12.9 g/dl (12.0-15.0); Lymphocyte % 10.1 % (19-41); Mean Corp Hgb Conc 32.8 g/gl (32-36); Mean Corpuscular Hgb 28.3 pg (27.0-32.0); Mean Corpuscular Volume 86.2 fL (81-99); Mean Platelet Vol. 9.5 fl (6.2-12.0); Monocyte# 1.07 X10^3/uL; Monocyte% 8.3 % (0-10); Neutrophil # 10.24 X10^3/uL (2.7-7.7); Neutrophil % 79.4 % (47-70); Platelet Count 316 K/mm3 (150-450); RBC Distribution Width CV 13.8 % (11.6-14.6); RBC Distribution Width SD 43.2 fl (35.1-43.9); Red Blood Count 4.56 M/mm3 (4.2-5.4); White Blood Count 12.9 K/mm3 (4.4-11.0)
[2018-07-06 20:50] LABS: POSITIVE COUNT NO; POSITIVE DIFFERENTIAL NO; POSITIVE MORPHOLOGY NO
[2018-07-06 21:11] LABS: Anion Gap 6 (5-15); BUN 25 mg/dL (7-18); BUN/Creat Ratio 18.8 RATIO (10-20); Calcium,Total 8.8 mg/dL (8.5-10.1); Chloride 106 mmol/L (98-107); Creatinine, Serum 1.33 mg/dL (0.55-1.02); EST Glomerular Filtration Rate 42 mL/min (>60); Est Glom Filt Rate - Afr Amer 50 mL/min (>60); Glucose 118 mg/dL (74-106); Potassium 4.4 mmol/L (3.5-5.1); Sodium Level 135 mmol/L (136-145); Thyroid Stim Hormone (TSH) 3.51 uIU/mL (0.358-3.74)
[2018-07-06 21:39] VITALS: PULSE 63; O2SAT 95
[2018-07-06] MEDS: Doxycycline 100 MG CAPSULE PO (21:39)
== END 2018-07-06 21:45 | disposition home or self-care (01) ==
PROVIDERS: Emergency Provider Emergency Medicine; Family Provider Internal Medicine; PCP Internal Medicine
DX: J44.1 Chronic obstructive pulmonary disease with (acute) exacerbation (principal); Z99.81 Dependence on supplemental oxygen; Z87.891 Personal history of nicotine dependence
CPT/HCPCS: 71046; 80048; 84443; 85025; 93005; 99285; A4216

== ENCOUNTER 2018-08-01 07:13 | Inpatient (IN) | payer MEDICAID, SELFPAY ==
[2018-08-01] VITALS (13 sets, daily range): BP systolic 101–158; BP diastolic 50–103; PULSE 65–128; RESP 20–40; TEMP 36.6–37.4; O2SAT 91–95; BMI 32.1; BMI 25.4; BMI 25.5
--- NOTE | 2018-08-01 07:22 | EKG12_ITS ---
Test Reason : SOB Blood Pressure : / mmHG Vent. Rate : 123 BPM Atrial Rate : 123 BPM P-R Int : 160 ms QRS Dur : 088 ms QT Int : 294 ms P-R-T Axes : 064 024 163 degrees QTc Int : 420 ms Sinus tachycardia with Premature atrial complexes with Aberrant conduction ST & T wave abnormality, consider inferior ischemia ST & T wave abnormality, consider anterolateral ischemia Abnormal ECG Confirmed by PILAR IVEY, BETINA ([id number]), newspaper managing editor MACKENZIE TORRES ([id number]) on 08/04/2018 1:36:48 PM Referred By: JOVON Confirmed By:BETINA QUEZADA MD
[2018-08-01] MEDS: MethylPREDNISolone 125 MG/2 ML Vial IV (07:34)
--- NOTE | 2018-08-01 07:35 | RAD_ITS ---
STUDY: X-RAY CHEST REASON FOR EXAM: Female, 73 years old. Cough TECHNIQUE: 1 view COMPARISON: July 06, 2018 FINDINGS: There are mild central vascular congestive changes. A few platelike atelectatic changes in the lung bases. No pneumonia. No pleural effusions. The heart is normal in size. Normal visualized thoracic spine. Normal visualized ribs, clavicles, and shoulders. There is no demonstrated abnormality of the visualized soft tissue structures of the upper abdomen. RAD/Chest 1 View (Portable) IMPRESSION: The heart is normal in size. Central vascular congestive changes and bibasilar platelike atelectatic change Electronically Signed: Lamont Figueredo MD at 8:08 EDT Tel , Service support ,
[2018-08-01 07:36] LABS: Absolute Lymphocyte Count 0.77 X10^3/ul (0.83-4.51); Absolute Neutrophil Count 14.2 X10^3/uL (2.0-7.7); Basophil# 0.02 X10^3/uL; Basophil% 0.1 % (0-1); Eosinophil# 0.19 X10^3/uL; Eosinophils% 1.1 % (0-5); Hematocrit 38.2 % (37-47); Hemoglobin 12.3 g/dl (12.0-15.0); Lymphocyte # 0.77 X10^3/ul (4.0); Lymphocyte % 4.6 % (19-41); Mean Corp Hgb Conc 32.2 g/gl (32-36); Mean Corpuscular Hgb 27.1 pg (27.0-32.0); Mean Corpuscular Volume 84.1 fL (81-99); Mean Platelet Vol. 9.7 fl (6.2-12.0); Monocyte# 1.42 X10^3/uL; Monocyte% 8.5 % (0-10); Neutrophil # 14.22 X10^3/uL (2.7-7.7); Neutrophil % 85.4 % (47-70); POSITIVE COUNT NO; POSITIVE DIFFERENTIAL NO; POSITIVE MORPHOLOGY NO; Platelet Count 452 K/mm3 (150-450); RBC Distribution Width SD 43.4 fl (35.1-43.9); Red Blood Count 4.54 M/mm3 (4.2-5.4); White Blood Count 16.7 K/mm3 (4.4-11.0)
--- NOTE | 2018-08-01 07:38 | ED.DCSUM_ITS ---
History of Present Illness Chief Complaint: Shortness of Breath Narrative: She is a female 73-year-old female with a history of the COPD, on 3 L of oxygen at baseline, presents with cough productive of clear/yellow sputum since 2 AM as well as wheezing and shortness of breath. This feels like a COPD exacerbation for her. She also has a history of CHF but this does not feel like her CHF. She denies recent weight gain or lower extremity swelling. She denies chest pain or fever. Her blood pressure was low per EMS but was normal on arrival here. She believes that she may have an infection. She did improve somewhat when she increased her oxygen to 5 L but she states that she was still struggling. She denies history of DVT or PE. Current severity of her symptoms is moderate to severe. The onset was gradual. Past Medical History - Allergies and Home Meds Allergies/Adverse Reactions: Allergies codeine Allergy (Unknown, Verified 08/01/18 07:22) Unknown lithium Allergy (Unknown, Verified 08/01/18 07:22) Unknown morphine Allergy (Unknown, Verified 08/01/18 07:22) Unknown naproxen [From Naprosyn] Allergy (Unknown, Verified 08/01/18 07:22) Unknown phenobarbital Allergy (Unknown, Verified 08/01/18 07:22) Unknown Sulfa (Sulfonamide Antibiotics) Allergy (Unknown, Verified 08/01/18 07:22) Unknown albuterol Allergy (Verified 08/01/18 07:22) Rash fentanyl Adverse Reaction (Severe, Verified 08/01/18 07:22) Other OD on Fentany patch. Very sensitive to does 75mcg patch Iodine and Iodide Containing Produc Adverse Reaction (Verified 08/01/18 07:22) Unknown Penicillins [PCN] Adverse Reaction (Verified 08/01/18 07:22) Unknown Primary Care Physician: Darleen Craig MD [Primary Care Provider] - Prior records reviewed: Yes Past Medical History: - - COPD,CHF,DM,HTN, 3L home O2 Surgical History: appendectomy, - - cad with stent Smoking Status: Former smoker - Family History Maternal Family History: Family History (Last Reviewed 03/06/18 @ 06:35 by Deanna Coker) Mother CAD (coronary artery disease) Hypertension Sister CAD (coronary artery disease) Myocardial infarction Family History: Reports: Diabetes, Heart Disease, Stroke Paternal Family History: Family History (Last Reviewed 03/06/18 @ 06:35 by Deanna Coker) Mother CAD (coronary artery disease) Hypertension Sister CAD (coronary artery disease) Myocardial infarction Family History: Reports: Diabetes, Stroke Review of Systems All systems negative except as indicated General: Denies: Chills, Fever, Sweats Eyes: Denies: Visual changes - bilaterally, Diplopia ENT: Denies: Rhinorrhea, Sore throat Cardiovascular: Denies: Chest pain, Palpitations Respiratory: Reports: Dyspnea, Cough, Sputum. Denies: Dyspnea on exertion Gastrointestinal: Denies: Abdominal pain, Nausea, Vomiting, Diarrhea, Melena, Hematochezia Genitourinary: Denies: Dysuria, Hematuria, Frequency Musculoskeletal: Denies: Back pain, Extremity Pain Skin: Denies: Rash, Wounds Neurological: Reports: Weakness. Denies: Headache, Numbness Hematologic: Denies: Easy bruising Physical Exam Vital Signs/Narrative: Vital Signs Temp Pulse Resp BP Pulse Ox 08/01/18 07:35 99.1 F 115 H 40 H 145/60 H 91 08/01/18 07:14 99.1 F 128 H 40 H 158/81 H 91 Inital Vital Signs reviewed: Yes General: Well nourished, Acute Distress Head: Normocephalic, Atraumatic Eyes: Perrl, EOMI ENT: No rhinorrhea, Dry mucous membranes Neck: Supple, Nontender Cardiovascular: Regular rate, Regular rhythm, No murmurs, Tachycardia Respiratory: No distress, Chest nontender, Wheezing Abdomen: Soft, Nontender, Nondistended, Normal bowel sounds Back: Nontender, Normal Inspection Extremities: Nontender, No edema Skin: Normal color, No rash Neurological: Alert, Oriented x3, Cranial nerves II-XII grossly intact, Normal Strength, Normal Sensation Psychological: Normal affect, Normal Mood Diagnostic/Tx/Re-eval Chest X-Ray - ED: 1 View, Read by Radiologist, CHF - Rhythm Strip Rhythm Strip: Sinus Tach Rate: 123 - ST depression laterally. - Medical Decision Making She was in mild distress on arrival but did improve markedly with breathing treatments and IV Solu-Medrol. Chest x-ray is negative for obvious infiltrate but she has a white count of nearly 17,000 and her cough has been quite productive. She has had a change in her sputum production pattern so I do still feel antibiotics are indicated. She has no lower extremity edema or orthopnea. She does have a history of CHF and has mild edema on her x-ray however she feels strongly that this is her COPD. Lactic acid was normal and she was never hypotensive here. Blood cultures were sent. I do feel she meets criteria for full admission because on reexamination, she still has mild wheezing and is on 5 L of oxygen which is more than her baseline amount and still appears to be working harder to breathe. She does not appear to require intubation or BiPAP at this point so I do feel she is safe for admission to telemetry. - Critical Care Time Critical care time (excluding procedures): 30-74 minutes ED Disposition - Plan for ED Patient: Disposition: Acute Care Hospital [facility] Diagnosis: COPD exacerbation, Lower respiratory infection Referrals: Darleen Craig MD [Primary Care Provider] -
[2018-08-01 07:49] LABS: Anion Gap 11 (5-15); BUN 19 mg/dL (7-18); BUN/Creat Ratio 19.5 RATIO (10-20); Calcium,Total 8.6 mg/dL (8.5-10.1); Chloride 104 mmol/L (98-107); Creatinine, Serum 0.98 mg/dL (0.55-1.02); EST Glomerular Filtration Rate 59 mL/min (>60); Est Glom Filt Rate - Afr Amer 72 mL/min (>60); Estimated Creatinine Clearance 40.44 ml/min; Glucose 134 mg/dL (74-106); Potassium 3.6 mmol/L (3.5-5.1); Sodium Level 138 mmol/L (136-145)
[2018-08-01 08:04] LABS: Lactic Acid 1.1 mmol/L (0.4-2.0)
[2018-08-01] MEDS: Ipratropium/Albuterol Sulfate 3 ML AMPUL.NEB INHALATION (09:27)
[2018-08-01 09:30] LABS: Base Excess -5 mmol/L (-2 to +2); Blood Gas Specimen Type ART; O2 Delivery Device Nasal Can; PO2 60 mmHG (75-100); SITE R Brachial; SO2 90 % (95-99); Time Given 925; Total Carbon Dioxide 21 mmol/L; pCO2 33.2 mmHg (35-45); pH 7.39 (7.35-7.45)
[2018-08-01] MEDS: Doxycycline 100 MG CAPSULE PO ×3 (10:00→22:09)
[2018-08-01] MEDS: Pantoprazole Sodium 20 MG Tablet PO ×2 (10:39→22:09)
[2018-08-01] MEDS: Losartan Potassium 50 MG Tablet PO (10:39)
[2018-08-01] MEDS: Ranolazine 500 MG Tablet PO ×2 (10:40→22:10)
[2018-08-01] MEDS: Gabapentin 300 MG Capsule PO ×2 (10:40→16:03)
[2018-08-01] MEDS: cycloBENZAPRine HCl 10 MG Tablet PO (10:40)
[2018-08-01] MEDS: Clopidogrel Bisulfate 75 MG Tablet PO (10:40)
[2018-08-01] MEDS: amLODIPine 5 MG Tablet PO (10:40)
[2018-08-01] MEDS: Metoprolol Tartrate 25 MG Tablet PO (10:40)
[2018-08-01] MEDS: Carvedilol 3.125 MG TABLET PO ×2 (11:49→16:03)
[2018-08-01] MEDS: buPROPion (SR) 150 MG Tablet.SA PO (11:49)
[2018-08-01] MEDS: Paroxetine 20 MG Tablet 40 MG PO (11:52)
[2018-08-01] MEDS: busPIRone 15 MG TABLET PO ×2 (13:29→22:09)
--- NOTE | 2018-08-01 15:48 | PCM.HP.STD ---
Problem List (1) COPD with acute exacerbation Status: Acute History of Present Illness Date of Admission: 08/01/18 Chief Complaint: shortness of breath. The patient is a 73 year old F presents with shortness of breath. Patient states that she was feeling fine up and about 2 AM. Patient was sleeping and awoke short of breath. Presented to the emergency room tachypneic and tachycardic. Patient received a bronchodilators and 105 mg of methylprednisolone. Patient felt better and is continuing to feel better at this time. Denies any fever or chills. [] Past Medical History Past Medical History (Chronic Problems): Chronic Problems (Last Reviewed 03/06/18 @ 06:35 by Deanna Coker) Presence of stent in coronary artery (Chronic) PTCA/SUASN to ostium of LMT 10/01/2014 @[facility]; PTCA/SUSAN of the mid/distal RCA 11/11/17 CAD (coronary artery disease) (Chronic) Successful PTCA/SUSAN of the of mid/distal RCA with a 2.25 x 38 Promus Synergy, post dilated proximally with a 3.0 x 12 NC balloon at 8 safia (2.5mm); 75%-->0%, no dissection. Successful PTCA/SUSAN of the proximal RCA with a 2.5 x 20 Promus Synergy, post dilated with a 3.0 x 12 at 14 safia; 75%-->0%, no dissection. Tobacco abuse (Chronic) Nonrheumatic tricuspid (valve) insufficiency (Chronic) Nonrheumatic mitral valve insufficiency (Chronic) Nicotine dependence, cigarettes, uncomplicated (Chronic) Hypertension (Chronic) Hyperlipidemia (Chronic) Atherosclerosis of [place] coronary artery of [place] heart without angina pectoris (Chronic) PTCA/SUSAN to ostium of LMT 10/01/2014 @[facility]; PTCA/SUSAN to mid/distal RCA and proximal RCA in November 2017 at [facility]; Peripheral vascular disease (Chronic) SOB (shortness of breath) (Chronic) Medical History: Medical History (Last Reviewed 08/01/18 @ 15:50 by Jackson Peter DO) Presence of stent in coronary artery (Chronic) Z95.5 PTCA/SUSAN to ostium of LMT 10/01/2014 @[facility]; PTCA/SUSAN of the mid/distal RCA 11/11/17 Acute respiratory failure with hypoxia and hypercapnia (Acute) J96.01, J96.02 COPD with acute exacerbation (Acute) J44.1 Gram-negative pneumonia (Acute) J15.6 Acute hypercapnic respiratory failure (Acute) J96.02 NSTEMI (non-ST elevated myocardial infarction) (Acute) I21.4 COPD exacerbation (Acute) J44.1 CAD (coronary artery disease) (Chronic) I25.10 Successful PTCA/SUSAN of the of mid/distal RCA with a 2.25 x 38 Promus Synergy, post dilated proximally with a 3.0 x 12 NC balloon at 8 safia (2.5mm); 75%-->0%, no dissection. Successful PTCA/SUSAN of the proximal RCA with a 2.5 x 20 Promus Synergy, post dilated with a 3.0 x 12 at 14 safia; 75%-->0%, no dissection. Tobacco abuse (Chronic) Z72.0 Congestive heart failure (Acute) I50.9 Nonrheumatic tricuspid (valve) insufficiency (Chronic) I36.1 Nonrheumatic mitral valve insufficiency (Chronic) I34.0 Nicotine dependence, cigarettes, uncomplicated (Chronic) F17.210 Hypertension (Chronic) I10 Hyperlipidemia (Chronic) E78.5 Atherosclerosis of [place] coronary artery of [place] heart without angina pectoris (Chronic) I25.10 PTCA/SUSAN to ostium of LMT 10/01/2014 @[facility]; PTCA/SUSAN to mid/distal RCA and proximal RCA in November 2017 at [facility]; Peripheral vascular disease (Chronic) I73.9 SOB (shortness of breath) (Chronic) R06.02 Anemia D64.9 COPD (chronic obstructive pulmonary disease) J44.9 Diabetes mellitus E11.9 Fibromyalgia M79.7 GERD (gastroesophageal reflux disease) K21.9 Hyperlipidemia E78.5 MARISABEL (obstructive sleep apnea) G47.33 Allergies codeine Allergy (Unknown, Verified 08/01/18 07:22) Unknown lithium Allergy (Unknown, Verified 08/01/18 07:22) Unknown morphine Allergy (Unknown, Verified 08/01/18 07:22) Unknown naproxen [From Naprosyn] Allergy (Unknown, Verified 08/01/18 07:22) Unknown phenobarbital Allergy (Unknown, Verified 08/01/18 07:22) Unknown Sulfa (Sulfonamide Antibiotics) Allergy (Unknown, Verified 08/01/18 07:22) Unknown albuterol Allergy (Verified 08/01/18 07:22) Rash fentanyl Adverse Reaction (Severe, Verified 08/01/18 07:22) Other OD on Fentany patch. Very sensitive to does 75mcg patch Iodine and Iodide Containing Produc Adverse Reaction (Verified 08/01/18 07:22) Unknown Penicillins [PCN] Adverse Reaction (Verified 08/01/18 07:22) Unknown Home Medications: Ambulatory Orders Medication Instructions Recorded Amlodipine [Norvasc] 5 mg PO DAILY 07/13/14 Gabapentin [Neurontin] 300 mg PO TIDCM 07/13/14 cycloBENZAPRine HCl [Flexeril] 10 mg PO DAILY 07/13/14 Fluticasone/Vilanterol [Breo 1 ea IH DAILY 12/17/16 Ellipta 200-25 Mcg INH] Paroxetine HCl [Paxil] 40 mg PO DAILY 12/17/16 nitroglycerin 0.4 mg sublingual 0.4 mg SUBLINGUAL Q5M PRN #25 tab 03/25/17 tablet ranolazine ER 500 mg 500 mg PO BID #180 tab 03/25/17 tablet,extended release,12 hr losartan 50 mg tablet 50 mg PO DAILY #90 tab 10/17/17 clopidogrel 75 mg tablet 75 mg PO DAILY #90 tab 10/23/17 Cholecalciferol (Vitamin D3) 50,000 unit PO QWEEK 11/23/17 [Vitamin D3] Pantoprazole Sodium [Protonix] 20 mg PO BID 11/23/17 buPROPion SR [Wellbutrin SR (150mg 150 mg PO DAILY 11/23/17 tablets)] tiotropium bromide 2.5 2 puff INHALATION QDAY #1 ea 12/10/17 mcg/actuation mist for inhalation isosorbide mononitrate ER 60 mg 120 mg PO DAILY tab 12/11/17 tablet,extended release 24 hr albuterol sulfate HFA 90 2 puff INHALATION Q6H PRN #18 g 01/29/18 mcg/actuation aerosol inhaler Aspirin [Aspirin, Baby] 81 mg PO DAILY@0800 03/30/18 Metoprolol Tartrate 25 mg PO BID 03/30/18 Potassium Chloride [K-Dur] 20 meq PO BIDCM #20 tablet 04/05/18 Doxycycline 100 mg PO BID #20 capsule 07/06/18 Carvedilol 3.125 mg PO BID 08/01/18 busPIRone [Buspar] 15 mg PO TID 08/01/18 Surgical History: Surgical History (Last Reviewed 08/01/18 @ 15:50 by Jackson Peter DO) H/O tubal ligation Z98.51 History of left heart catheterization Z98.890 Hx of appendectomy Z98.890, Z90.49 S/P femoral-femoral bypass surgery Z95.828 with gorortex graft in 2001; removal of infected graft with reconstructions of right superficial artery in 2002 Surgical History: appendectomy, - - cad with stent Smoking Status: Former smoker - *Family History Maternal Family History: Family History (Last Reviewed 08/01/18 @ 15:50 by Jackson Peter DO) Mother CAD (coronary artery disease) Hypertension Sister CAD (coronary artery disease) Myocardial infarction History Items: Diabetes, Heart Disease, Stroke Paternal Family History: Family History (Last Reviewed 08/01/18 @ 15:50 by Jackson Peter DO) Mother CAD (coronary artery disease) Hypertension Sister CAD (coronary artery disease) Myocardial infarction History Items: Diabetes, Stroke Review of Systems Constitutional: Denies: Anorexia, Night Sweats Eyes: Denies: Blurred vision, Double vision HEENT: Denies: Head Aches, Sinus Congestion, Sinus Drainage Cardiovascular: Reports: Chest Pain - With coughing. Denies: Edema Respiratory: Reports: Cough, Shortness of Breath Gastrointestinal: Denies: Abdominal Pain, Nausea, Vomiting Genitourinary: Denies: Dysuria Musculoskeletal: Denies: Joint Pain, Joint Tenderness Skin: Denies: Rash, Wounds Neurological: Denies: Numbness, Tingling, Focal weakness Hematologic/ Lymphatic: Denies: Easy Bruising, Easy Bleeding, Hx of blood clot Comment: A 10 point review of systems were negative except as mentioned in the history of present illness and the other review of systems. VTE Information - Inpt Only VTE Present on Admission: No VTE Mechan Device Prophylaxis: None VTE Pharm Prophylaxis ordered?: Yes Patient Problems: Active and Suspected Problems (Last Reviewed 03/06/18 @ 06:35 by Deanna Coker) Lower respiratory infection (Acute) COPD exacerbation (Acute) - Physical Exam General: Alert, No apparent distress HEENT: Atraumatic, Normocephalic Oral: Moist Mucosa, No Gingival or Mucosal Lesions/ Ulcerations Neck: No Nodes, Thyroid Normal Size and Texture Lungs: Clear to auscultation, No rhonchi, No wheeze, Diminished Cardiovascular: Regular rate, No murmurs Abdomen: Bowel Sounds Present, Soft, Non Tender Extremities: No edema, Capillary Refill Less than 3 Seconds, No Calf Tenderness Skin: No rashes, No breakdown Psych/Mental Status: Normal Affect, Appropriate Vital Signs Temp Pulse Resp BP Pulse Ox 36.7 C 69 20 H 122/55 H 95 08/01/18 10:27 08/01/18 15:16 08/01/18 10:27 08/01/18 10:27 08/01/18 10:27 Oxygen Flow Rate (L/min) 4 Oxygen Delivery Method Nasal Cannula Weight: 63.185 kg Body Mass Index (BMI) 25.4 Intake and Output for Last 24 Hours 07/30/18 07/31/18 08/01/18 23:59 23:59 23:59 Intake Total 120 / 120 Balance 120 / 120 Laboratory Tests Past 24 Hrs 08/01/18 08/01/18 08/01/18 07:15 07:15 07:15 WBC 16.7 H RBC 4.54 Hgb 12.3 Hct 38.2 MCV 84.1 MCH 27.1 MCHC 32.2 RDW 14.0 RDW Differential 43.4 Plt Count 452 H MPV 9.7 Immature Gran % (Auto) 0.300 Neut % (Auto) 85.4 H Lymph % (Auto) 4.6 L Eddy % (Auto) 8.5 Eos % (Auto) 1.1 Baso % (Auto) 0.1 Absolute Neuts (auto) 14.2 H Absolute Lymphs (auto) 0.77 L Total Counted Not Reportable Specimen Type Sample Site pH Bicarbonate Actual POC Total CO2 Base Excess O2 Saturation ABG pCO2 ABG pO2 Angelo Test O2 Delivery Device Liter Flow Blood Gas Notified Whom Blood Gas Notified Time Sodium 138 Potassium 3.6 Chloride 104 Carbon Dioxide 23.0 Anion Gap 11 BUN 19 H Creatinine 0.98 Estim Creat Clear Calc 40.44 Est GFR (MDRD) Af Amer 72 Est GFR (MDRD) Non-Af 59 L BUN/Creatinine Ratio 19.5 Glucose 134 H Lactic Acid 1.1 Calcium 8.6 Troponin I 0.017 08/01/18 09:27 WBC RBC Hgb Hct MCV MCH MCHC RDW RDW Differential Plt Count MPV Immature Gran % (Auto) Neut % (Auto) Lymph % (Auto) Eddy % (Auto) Eos % (Auto) Baso % (Auto) Absolute Neuts (auto) Absolute Lymphs (auto) Total Counted Specimen Type ART Sample Site R Brachial pH 7.39 Bicarbonate Actual 20.0 L POC Total CO2 21 Base Excess -5 L O2 Saturation 90 L ABG pCO2 33.2 L ABG pO2 60 L Angelo Test NA O2 Delivery Device Nasal Can Liter Flow 4.0 Blood Gas Notified Whom ED Blood Gas Notified Time 925 Sodium Potassium Chloride Carbon Dioxide Anion Gap BUN Creatinine Estim Creat Clear Calc Est GFR (MDRD) Af Amer Est GFR (MDRD) Non-Af BUN/Creatinine Ratio Glucose Lactic Acid Calcium Troponin I Clinical Impression(s) from Imaging Studies Chest X-Ray 08/01/18 07:35 IMPRESSION: The heart is normal in size. Central vascular congestive changes and bibasilar platelike atelectatic change Electronically Signed: Lamont Figueredo MD at 8:08 EDT Tel , Service support , Assessment/Plan All Active Problems (Last Reviewed 03/06/18 @ 06:35 by Deanna Coker) Lower respiratory infection (Acute) Pulmonary embolism (Acute) Cholelithiasis NOS (Acute) Acute respiratory failure with hypoxia and hypercapnia (Acute) COPD with acute exacerbation (Acute) Gram-negative pneumonia (Acute) Acute hypercapnic respiratory failure (Acute) NSTEMI (non-ST elevated myocardial infarction) (Acute) COPD exacerbation (Acute) Congestive heart failure (Acute) 1. Acute exacerbation of COPD Overall much better and not audibly wheezing. Patient is slightly diminished but equal air sounds bilaterally. We will continue with methylprednisolone at 20 mg 3 times daily plus bronchodilators. Patient also be started on doxycycline and monitored. If patient does well overnight and I would anticipate patient be able to be discharged with prednisone 40 mg for 5 days. 2. Coronary artery disease Stable Continue with aspirin, atorvastatin, Ranexa, carvedilol 3. Hypertension stable Continue with amlodipine, Cozaar 4. VTE prophylaxis: Moderate risk. Patient be on Lovenox. Code Visit Inpatient E&M: 11741 Init Hosp L2
--- NOTE | 2018-08-01 15:55 | HP.PCM_ITS ---
Problem List (1) COPD with acute exacerbation Status: Acute History of Present Illness Date of Admission: 08/01/18 Chief Complaint: shortness of breath. The patient is a 73 year old F presents with shortness of breath. Patient states that she was feeling fine up and about 2 AM. Patient was sleeping and awoke short of breath. Presented to the emergency room tachypneic and tachycardic. Patient received a bronchodilators and 105 mg of methylprednisol one. Patient felt better and is continuing to feel better at this time. Denies any fever or chills. [] Past Medical History Past Medical History (Chronic Problems): Chronic Problems (Last Reviewed 03/06/18 @ 06:35 by Deanna Coker) Presence of stent in coronary artery (Chronic) PTCA/SUSAN to ostium of LMT 10/01/2014 @[facility]; PTCA/SUSAN of the mid/distal RCA 11/11/17 CAD (coronary artery disease) (Chronic) Successful PTCA/SUSAN of the of mid/distal RCA with a 2.25 x 38 Promus Synergy, post dilated proximally with a 3.0 x 12 NC balloon at 8 safia (2.5mm); 75%-->0%, no dissection. Successful PTCA/SUSAN of the proximal RCA with a 2.5 x 20 Promus Synergy, post dilated with a 3.0 x 12 at 14 safia; 75%-->0%, no dissection. Tobacco abuse (Chronic) Nonrheumatic tricuspid (valve) insufficiency (Chronic) Nonrheumatic mitral valve insufficiency (Chronic) Nicotine dependence, cigarettes, uncomplicated (Chronic) Hypertension (Chronic) Hyperlipidemia (Chronic) Atherosclerosis of [place] coronary artery of [place] heart without angina pectoris (Chronic) PTCA/SUSAN to ostium of LMT 10/01/2014 @[facility]; PTCA/SUSAN to mid/distal RCA and proximal RCA in November 2017 at [facility]; Peripheral vascular disease (Chronic) SOB (shortness of breath) (Chronic) Medical History: Medical History (Last Reviewed 08/01/18 @ 15:50 by Jackson Peter DO) Presence of stent in coronary artery (Chronic) Z95.5 PTCA/SUSAN to ostium of LMT 10/01/2014 @[facility]; PTCA/SUSAN of the mid/distal RCA 11/11/17 Acute respiratory failure with hypoxia and hypercapnia (Acute) J96.01, J96.02 COPD with acute exacerbation (Acute) J44.1 Gram-negative pneumonia (Acute) J15.6 Acute hypercapnic respiratory failure (Acute) J96.02 NSTEMI (non-ST elevated myocardial infarction) (Acute) I21.4 COPD exacerbation (Acute) J44.1 CAD (coronary artery disease) (Chronic) I25.10 Successful PTCA/SUSAN of the of mid/distal RCA with a 2.25 x 38 Promus Synergy, post dilated proximally with a 3.0 x 12 NC balloon at 8 safia (2.5mm); 75%-->0%, no dissection. Successful PTCA/SUSAN of the proximal RCA with a 2.5 x 20 Promus Synergy, post dilated with a 3.0 x 12 at 14 safia; 75%-->0%, no dissection. Tobacco abuse (Chronic) Z72.0 Congestive heart failure (Acute) I50.9 Nonrheumatic tricuspid (valve) insufficiency (Chronic) I36.1 Nonrheumatic mitral valve insufficiency (Chronic) I34.0 Nicotine dependence, cigarettes, uncomplicated (Chronic) F17.210 Hypertension (Chronic) I10 Hyperlipidemia (Chronic) E78.5 Atherosclerosis of [place] coronary artery of [place] heart without angina pectoris (Chronic) I25.10 PTCA/SUSAN to ostium of LMT 10/01/2014 @[facility]; PTCA/SUSAN to mid/distal RCA and proximal RCA in November 2017 at [facility]; Peripheral vascular disease (Chronic) I73.9 SOB (shortness of breath) (Chronic) R06.02 Anemia D64.9 COPD (chronic obstructive pulmonary disease) J44.9 Diabetes mellitus E11.9 Fibromyalgia M79.7 GERD (gastroesophageal reflux disease) K21.9 Hyperlipidemia E78.5 MARISABEL (obstructive sleep apnea) G47.33 Allergies codeine Allergy (Unknown, Verified 08/01/18 07:22) Unknown lithium Allergy (Unknown, Verified 08/01/18 07:22) Unknown morphine Allergy (Unknown, Verified 08/01/18 07:22) Unknown naproxen [From Naprosyn] Allergy (Unknown, Verified 08/01/18 07:22) Unknown phenobarbital Allergy (Unknown, Verified 08/01/18 07:22) Unknown Sulfa (Sulfonamide Antibiotics) Allergy (Unknown, Verified 08/01/18 07:22) Unknown albuterol Allergy (Verified 08/01/18 07:22) Rash fentanyl Adverse Reaction (Severe, Verified 08/01/18 07:22) Other OD on Fentany patch. Very sensitive to does 75mcg patch Iodine and Iodide Containing Produc Adverse Reaction (Verified 08/01/18 07:22) Unknown Penicillins [PCN] Adverse Reaction (Verified 08/01/18 07:22) Unknown Home Medications: Ambulatory Orders Medication Instructions Recorded Amlodipine [Norvasc] 5 mg PO DAILY 07/13/14 Gabapentin [Neurontin] 300 mg PO TIDCM 07/13/14 cycloBENZAPRine HCl [Flexeril] 10 mg PO DAILY 07/13/14 Fluticasone/Vilanterol [Breo 1 ea IH DAILY 12/17/16 Ellipta 200-25 Mcg INH] Paroxetine HCl [Paxil] 40 mg PO DAILY 12/17/16 nitroglycerin 0.4 mg sublingual 0.4 mg SUBLINGUAL Q5M PRN #25 tab 03/25/17 tablet ranolazine ER 500 mg 500 mg PO BID #180 tab 03/25/17 tablet,extended release,12 hr losartan 50 mg tablet 50 mg PO DAILY #90 tab 10/17/17 clopidogrel 75 mg tablet 75 mg PO DAILY #90 tab 10/23/17 Cholecalciferol (Vitamin D3) 50,000 unit PO QWEEK 11/23/17 [Vitamin D3] Pantoprazole Sodium [Protonix] 20 mg PO BID 11/23/17 buPROPion SR [Wellbutrin SR (150mg 150 mg PO DAILY 11/23/17 tablets)] tiotropium bromide 2.5 2 puff INHALATION QDAY #1 ea 12/10/17 mcg/actuation mist for inhalation isosorbide mononitrate ER 60 mg 120 mg PO DAILY tab 12/11/17 tablet,extended release 24 hr albuterol sulfate HFA 90 2 puff INHALATION Q6H PRN #18 g 01/29/18 mcg/actuation aerosol inhaler Aspirin [Aspirin, Baby] 81 mg PO DAILY@0800 03/30/18 Metoprolol Tartrate 25 mg PO BID 03/30/18 Potassium Chloride [K-Dur] 20 meq PO BIDCM #20 tablet 04/05/18 Doxycycline 100 mg PO BID #20 capsule 05/05/19 Carvedilol 3.125 mg PO BID 08/01/18 busPIRone [Buspar] 15 mg PO TID 08/01/18 Surgical History: Surgical History (Last Reviewed 08/01/18 @ 15:50 by Jackson Peter DO) H/O tubal ligation Z98.51 History of left heart catheterization Z98.890 Hx of appendectomy Z98.890, Z90.49 S/P femoral-femoral bypass surgery Z95.828 with gorortex graft in 2001; removal of infected graft with reconstructions of right superficial artery in 2002 Surgical History: appendectomy, - - cad with stent Smoking Status: Former smoker - *Family History Maternal Family History: Family History (Last Reviewed 08/01/18 @ 15:50 by Jackson Peter DO) Mother CAD (coronary artery disease) Hypertension Sister CAD (coronary artery disease) Myocardial infarction History Items: Diabetes, Heart Disease, Stroke Paternal Family History: Family History (Last Reviewed 08/01/18 @ 15:50 by Jackson Peter DO) Mother CAD (coronary artery disease) Hypertension Sister CAD (coronary artery disease) Myocardial infarction History Items: Diabetes, Stroke Review of Systems Constitutional: Denies: Anorexia, Night Sweats Eyes: Denies: Blurred vision, Double vision HEENT: Denies: Head Aches, Sinus Congestion, Sinus Drainage Cardiovascular: Reports: Chest Pain - With coughing. Denies: Edema Respiratory: Reports: Cough, Shortness of Breath Gastrointestinal: Denies: Abdominal Pain, Nausea, Vomiting Genitourinary: Denies: Dysuria Musculoskeletal: Denies: Joint Pain, Joint Tenderness Skin: Denies: Rash, Wounds Neurological: Denies: Numbness, Tingling, Focal weakness Hematologic/ Lymphatic: Denies: Easy Bruising, Easy Bleeding, Hx of blood clot Comment: A 10 point review of systems were negative except as mentioned in the history of present illness and the other review of systems. VTE Information - Inpt Only VTE Present on Admission: No VTE Mechan Device Prophylaxis: None VTE Pharm Prophylaxis ordered?: Yes Patient Problems: Active and Suspected Problems (Last Reviewed 03/06/18 @ 06:35 by Deanna Coker) Lower respiratory infection (Acute) COPD exacerbation (Acute) - Physical Exam General: Alert, No apparent distress HEENT: Atraumatic, Normocephalic Oral: Moist Mucosa, No Gingival or Mucosal Lesions/ Ulcerations Neck: No Nodes, Thyroid Normal Size and Texture Lungs: Clear to auscultation, No rhonchi, No wheeze, Diminished Cardiovascular: Regular rate, No murmurs Abdomen: Bowel Sounds Present, Soft, Non Tender Extremities: No edema, Capillary Refill Less than 3 Seconds, No Calf Tenderness Skin: No rashes, No breakdown Psych/Mental Status: Normal Affect, Appropriate Vital Signs Temp Pulse Resp BP Pulse Ox 36.7 C 69 20 H 122/55 H 95 08/01/18 10:27 08/01/18 15:16 08/01/18 10:27 08/01/18 10:27 08/01/18 10:27 Oxygen Flow Rate (L/min) 4 Oxygen Delivery Method Nasal Cannula Weight: 63.185 kg Body Mass Index (BMI) 25.4 Intake and Output for Last 24 Hours 07/30/18 07/31/18 08/01/18 23:59 23:59 23:59 Intake Total 120 / 120 Balance 120 / 120 Laboratory Tests Past 24 Hrs 08/01/18 08/01/18 08/01/18 07:15 07:15 07:15 WBC 16.7 H RBC 4.54 Hgb 12.3 Hct 38.2 MCV 84.1 MCH 27.1 MCHC 32.2 RDW 14.0 RDW Differential 43.4 Plt Count 452 H MPV 9.7 Immature Gran % (Auto) 0.300 Neut % (Auto) 85.4 H Lymph % (Auto) 4.6 L [place] % (Auto) 8.5 Eos % (Auto) 1.1 Baso % (Auto) 0.1 Absolute Neuts (auto) 14.2 H Absolute Lymphs (auto) 0.77 L Total Counted Not Reportable Specimen Type Sample Site pH Bicarbonate Actual POC Total CO2 Base Excess O2 Saturation ABG pCO2 ABG pO2 Angelo Test O2 Delivery Device Liter Flow Blood Gas Notified Whom Blood Gas Notified Time Sodium 138 Potassium 3.6 Chloride 104 Carbon Dioxide 23.0 Anion Gap 11 BUN 19 H Creatinine 0.98 Estim Creat Clear Calc 40.44 Est GFR (MDRD) Af Amer 72 Est GFR (MDRD) Non-Af 59 L BUN/Creatinine Ratio 19.5 Glucose 134 H Lactic Acid 1.1 Calcium 8.6 Troponin I 0.017 08/01/18 09:27 WBC RBC Hgb Hct MCV MCH MCHC RDW RDW Differential Plt Count MPV Immature Gran % (Auto) Neut % (Auto) Lymph % (Auto) [place] % (Auto) Eos % (Auto) Baso % (Auto) Absolute Neuts (auto) Absolute Lymphs (auto) Total Counted Specimen Type ART Sample Site R Brachial pH 7.39 Bicarbonate Actual 20.0 L POC Total CO2 21 Base Excess -5 L O2 Saturation 90 L ABG pCO2 33.2 L ABG pO2 60 L Angelo Test NA O2 Delivery Device Nasal Can Liter Flow 4.0 Blood Gas Notified Whom ED Blood Gas Notified Time 925 Sodium Potassium Chloride Carbon Dioxide Anion Gap BUN Creatinine Estim Creat Clear Calc Est GFR (MDRD) Af Amer Est GFR (MDRD) Non-Af BUN/Creatinine Ratio Glucose Lactic Acid Calcium Troponin I Clinical Impression(s) from Imaging Studies Chest X-Ray 08/01/18 07:35 IMPRESSION: The heart is normal in size. Central vascular congestive changes and bibasilar platelike atelectatic change Electronically Signed: Lamont Figueredo MD at 8:08 EDT Tel , Service support , Assessment/Plan All Active Problems (Last Reviewed 03/06/18 @ 06:35 by Deanna Coker) Lower respiratory infection (Acute) Pulmonary embolism (Acute) Cholelithiasis NOS (Acute) Acute respiratory failure with hypoxia and hypercapnia (Acute) COPD with acute exacerbation (Acute) Gram-negative pneumonia (Acute) Acute hypercapnic respiratory failure (Acute) NSTEMI (non-ST elevated myocardial infarction) (Acute) COPD exacerbation (Acute) Congestive heart failure (Acute) 1. Acute exacerbation of COPD * Overall much better and not audibly wheezing. Patient is slightly diminished but equal air sounds bilaterally. * We will continue with methylprednisolone at 20 mg 3 times daily plus bronchodilators. Patient also be started on doxycycline and monitored. If patient does well overnight and I would anticipate patient be able to be discharged with prednisone 40 mg for 5 days. 2. Coronary artery disease * Stable * Continue with aspirin, atorvastatin, Ranexa, carvedilol 3. Hypertension * stable * Continue with amlodipine, Cozaar 4. VTE prophylaxis: Moderate risk. Patient be on Lovenox. Code Visit Inpatient E&M: 40580 Init Hosp L2
[2018-08-01] MEDS: Atorvastatin Calcium 80 MG Tablet PO (22:09)
[2018-08-01] MEDS: 0.9% NaCl Peripheral Flush Adult/Peds IV (22:13)
[2018-08-02] VITALS (16 sets, daily range): BP systolic 76–118; BP diastolic 39–62; PULSE 67–95; RESP 17–20; TEMP 36.4–36.6; O2SAT 92–95
[2018-08-02 06:05] LABS: Absolute Neutrophil Count 8.2 X10^3/uL (2.0-7.7); Basophil# 0.02 X10^3/uL; Basophil% 0.2 % (0-1); Hematocrit 33.7 % (37-47); Hemoglobin 10.5 g/dl (12.0-15.0); Lymphocyte % 9.5 % (19-41); Mean Corp Hgb Conc 31.2 g/gl (32-36); Mean Corpuscular Hgb 26.4 pg (27.0-32.0); Mean Corpuscular Volume 84.7 fL (81-99); Mean Platelet Vol. 9.8 fl (6.2-12.0); Monocyte# 0.28 X10^3/uL; Neutrophil % 86.8 % (47-70); Platelet Count 433 K/mm3 (150-450); RBC Distribution Width CV 14.3 % (11.6-14.6); Red Blood Count 3.98 M/mm3 (4.2-5.4); White Blood Count 9.5 K/mm3 (4.4-11.0)
[2018-08-02 06:06] LABS: POSITIVE COUNT NO; POSITIVE DIFFERENTIAL NO; POSITIVE MORPHOLOGY NO
[2018-08-02 06:19] LABS: Anion Gap 9 (5-15); BUN 37 mg/dL (7-18); BUN/Creat Ratio 19.6 RATIO (10-20); Calcium,Total 8.6 mg/dL (8.5-10.1); Chloride 107 mmol/L (98-107); Creatinine, Serum 1.89 mg/dL (0.55-1.02); EST Glomerular Filtration Rate 28 mL/min (>60); Est Glom Filt Rate - Afr Amer 34 mL/min (>60); Estimated Creatinine Clearance 20.97 ml/min; Glucose 133 mg/dL (74-106); Potassium 4.4 mmol/L (3.5-5.1); Sodium Level 139 mmol/L (136-145)
[2018-08-02] MEDS: Enoxaparin 40 MG/0.4 ML Syringe SC (06:27)
[2018-08-02] MEDS: busPIRone 15 MG TABLET PO ×3 (06:27→21:14)
[2018-08-02] MEDS: Ipratropium/Albuterol Sulfate 3 ML AMPUL.NEB INHALATION (07:55)
[2018-08-02] MEDS: Pantoprazole Sodium 20 MG Tablet PO ×2 (09:06→21:14)
[2018-08-02] MEDS: Aspirin 81 MG TAB.CHEW PO (09:06)
[2018-08-02] MEDS: Carvedilol 3.125 MG TABLET PO (09:07)
[2018-08-02] MEDS: Clopidogrel Bisulfate 75 MG Tablet PO (09:07)
[2018-08-02] MEDS: cycloBENZAPRine HCl 10 MG Tablet PO (09:07)
[2018-08-02] MEDS: Doxycycline 100 MG CAPSULE PO ×2 (09:08→21:14)
[2018-08-02] MEDS: Gabapentin 300 MG Capsule PO ×3 (09:10→17:59)
[2018-08-02] MEDS: Ranolazine 500 MG Tablet PO ×2 (09:23→21:15)
[2018-08-02] MEDS: buPROPion (SR) 150 MG Tablet.SA PO (09:23)
[2018-08-02] MEDS: Paroxetine 20 MG Tablet 40 MG PO (09:23)
[2018-08-02] MEDS: Metoprolol Tartrate 25 MG Tablet PO (09:28)
--- NOTE | 2018-08-02 11:58 | DCINST_ITS ---
- Discharge Diagnoses Current Active Problems: Current Active and Chronic Problems (Last Reviewed 08/01/18 @ 15:50 by Jackson Peter DO) Lower respiratory infection (Acute) COPD exacerbation (Acute) You will use the following diet at home:: Cardiac Your food should be the consistency of: Regular Your liquids should be the consistency of: Regular/Thin Discharge Activity: Return to Normal Activity Call your doctor if you observe: Fever of 101 or Higher, Shortness of breath Allergies/Adverse Reactions: Allergies codeine Allergy (Unknown, Verified 08/01/18 07:22) Unknown lithium Allergy (Unknown, Verified 08/01/18 07:22) Unknown morphine Allergy (Unknown, Verified 08/01/18 07:22) Unknown naproxen [From Naprosyn] Allergy (Unknown, Verified 08/01/18:) Unknown phenobarbital Allergy (Unknown, Verified 08/01/18:22) Unknown Sulfa (Sulfonamide Antibiotics) Allergy (Unknown, Verified 08/01/18 07:22) Unknown albuterol Allergy (Verified 08/01/18:22) Rash fentanyl Adverse Reaction (Severe, Verified 08/01/18 07:22) Other OD on Fentany patch. Very sensitive to does 75mcg patch Iodine and Iodide Containing Produc Adverse Reaction (Verified 08/01/18 07:22) Unknown Penicillins [PCN] Adverse Reaction (Verified 08/01/18 07:22) Unknown Medications to take at Discharge Amlodipine [Norvasc] 5 mg PO DAILY 07/13/14 Gabapentin [Neurontin] 300 mg PO TIDCM 07/13/14 cycloBENZAPRine HCl [Flexeril] 10 mg PO DAILY 07/13/14 Fluticasone/Vilanterol [Breo Ellipta 200-25 Mcg INH] 1 ea IH DAILY 12/17/16 Paroxetine HCl [Paxil] 40 mg PO DAILY 12/17/16 nitroglycerin 0.4 mg sublingual tablet 0.4 mg SUBLINGUAL Q5M PRN #25 tab 03/25/17 ranolazine ER 500 mg tablet,extended release,12 hr 500 mg PO BID #180 tab 03/25/17 losartan 50 mg tablet 50 mg PO DAILY #90 tab 10/17/17 clopidogrel 75 mg tablet 75 mg PO DAILY #90 tab 10/23/17 Cholecalciferol (Vitamin D3) [Vitamin D3] 50,000 unit PO QWEEK 11/23/17 Pantoprazole Sodium [Protonix] 20 mg PO BID 11/23/17 buPROPion SR [Wellbutrin SR (150mg tablets)] 150 mg PO DAILY 11/23/17 tiotropium bromide 2.5 mcg/actuation mist for inhalation 2 puff INHALATION QDAY #1 ea 12/10/17 isosorbide mononitrate ER 60 mg tablet,extended release 24 hr 120 mg PO DAILY tab 12/11/17 albuterol sulfate HFA 90 mcg/actuation aerosol inhaler 2 puff INHALATION Q6H PRN #18 g 01/29/18 Aspirin [Aspirin, Baby] 81 mg PO DAILY@0800 03/30/18 Metoprolol Tartrate 25 mg PO BID 03/30/18 Potassium Chloride [K-Dur] 20 meq PO BIDCM #20 tablet 04/05/18 Doxycycline 100 mg PO BID #20 capsule 07/06/18 Carvedilol 3.125 mg PO BID 08/01/18 busPIRone [Buspar] 15 mg PO TID 08/01/18 Primary Care Physician: Darleen Craig MD [Primary Care Provider] - Within 2 Weeks Test Results: Test results from this visit will be discussed in further detail at your follow- up appointment, if applicable. Please Follow Up With: Mercy Velasquez PA When: 08/13/18 Proposed Discharge Date: 08/02/18
--- NOTE | 2018-08-02 12:02 | PCM.DC.SUM ---
Discharge Date and Diagnosis - Problem List Patient Problems: Active and Suspected Problems (Last Reviewed 08/01/18 @ 15:50 by Jackson Peter DO) Lower respiratory infection (Acute) COPD exacerbation (Acute) Date of Admission: 08/01/18 Date of Discharge: 08/02/18 - Primary Discharge Diagnosis Active and Suspected Problems (Last Reviewed 08/01/18 @ 15:50 by Jackson Peter DO) Lower respiratory infection (Acute) COPD exacerbation (Acute) - Secondary Discharge Diagnosis Chronic Problems (Last Reviewed 08/01/18 @ 15:50 by Jackson Peter DO) Presence of stent in coronary artery (Chronic) PTCA/SUSAN to ostium of LMT 10/01/2014 @[facility]; PTCA/SUSAN of the mid/distal RCA 11/11/17 CAD (coronary artery disease) (Chronic) Successful PTCA/SUSAN of the of mid/distal RCA with a 2.25 x 38 Promus Synergy, post dilated proximally with a 3.0 x 12 NC balloon at 8 safia (2.5mm); 75%-->0%, no dissection. Successful PTCA/SUSAN of the proximal RCA with a 2.5 x 20 Promus Synergy, post dilated with a 3.0 x 12 at 14 safia; 75%-->0%, no dissection. Tobacco abuse (Chronic) Nonrheumatic tricuspid (valve) insufficiency (Chronic) Nonrheumatic mitral valve insufficiency (Chronic) Nicotine dependence, cigarettes, uncomplicated (Chronic) Hypertension (Chronic) Hyperlipidemia (Chronic) Atherosclerosis of [place] coronary artery of [place] heart without angina pectoris (Chronic) PTCA/SUSAN to ostium of LMT 10/01/2014 @[facility]; PTCA/SUSAN to mid/distal RCA and proximal RCA in November 2017 at [facility]; Peripheral vascular disease (Chronic) SOB (shortness of breath) (Chronic) Hospital Course and Treatment Imaging Results: Clinical Impression(s) from Imaging Studies Chest X-Ray 08/01/18 07:35 IMPRESSION: The heart is normal in size. Central vascular congestive changes and bibasilar platelike atelectatic change Electronically Signed: Lamont Figueredo MD at 8:08 EDT Tel , Service support , Operations: None Procedures: None Summary of Care Provided: The patient is a 73 year old F presents with acute shortness of breath. Diagnosed with COPD exacerbation and was on doxycycline, Solu-Medrol and bronchodilators. Did well just from the emergency room and was monitored overnight given her frequent hospitalizations and advanced COPD. Overnight patient had no events but in the morning was just not feeling well after she was woken up but was reevaluated several hours later and was feeling better. Patient has no wheezes at this time. Patient will be discharged to continue with the doxycycline as well as burst of prednisone 40 mg for 5 days. [] Patient Problems: Active and Suspected Problems (Last Reviewed 08/01/18 @ 15:50 by Jackson Peter DO) Lower respiratory infection (Acute) COPD exacerbation (Acute) - Physical Exam General: Alert, No apparent distress HEENT: Atraumatic, Normocephalic Oral: Moist Mucosa, No Gingival or Mucosal Lesions/ Ulcerations Lungs: Clear to auscultation, Diminished Cardiovascular: Regular rate, Regular Rhythm, Normal S1, Normal S2 Psych/Mental Status: Normal Affect, Appropriate Vital Signs Temp Pulse Resp BP Pulse Ox 36.6 C 95 18 111/57 L 94 08/02/18 09:29 08/02/18 09:29 08/02/18 09:29 08/02/18 09:29 08/02/18 09:29 Oxygen Flow Rate (L/min) 4 Oxygen Delivery Method Nasal Cannula Weight: 63.185 kg Body Mass Index (BMI) 25.4 Intake and Output for Last 24 Hours 07/31/18 08/01/18 08/02/18 23:59 23:59 23:59 Intake Total 120 / 120 330 / 330 Balance 120 / 120 330 / 330 Laboratory Tests Past 24 Hrs 08/02/18 08/02/18 05:36 05:36 WBC 9.5 RBC 3.98 L Hgb 10.5 L Hct 33.7 L MCV 84.7 MCH 26.4 L MCHC 31.2 L RDW 14.3 RDW Differential 45.0 H Plt Count 433 MPV 9.8 Immature Gran % (Auto) 0.500 Neut % (Auto) 86.8 H Lymph % (Auto) 9.5 L [place] % (Auto) 3.0 Eos % (Auto) 0.0 Baso % (Auto) 0.2 Absolute Neuts (auto) 8.2 H Absolute Lymphs (auto) 0.90 Total Counted Not Reportable Sodium 139 Potassium 4.4 Chloride 107 Carbon Dioxide 23.0 Anion Gap 9 BUN 37 H Creatinine 1.89 H Estim Creat Clear Calc 20.97 Est GFR (MDRD) Af Amer 34 L Est GFR (MDRD) Non-Af 28 L BUN/Creatinine Ratio 19.6 Glucose 133 H Calcium 8.6 Discharge Diet: Low fat/ Low Cholesterol Discharge Activity: Return to Normal Activity Call your doctor if you observe: Fever of 101 or Higher, Shortness of breath Home Medications: Medications to take at Discharge Amlodipine [Norvasc] 5 mg PO DAILY 07/13/14 Gabapentin [Neurontin] 300 mg PO TIDCM 07/13/14 cycloBENZAPRine HCl [Flexeril] 10 mg PO DAILY 07/13/14 Fluticasone/Vilanterol [Breo Ellipta 200-25 Mcg INH] 1 ea IH DAILY 12/17/16 Paroxetine HCl [Paxil] 40 mg PO DAILY 12/17/16 nitroglycerin 0.4 mg sublingual tablet 0.4 mg SUBLINGUAL Q5M PRN #25 tab 03/25/17 ranolazine ER 500 mg tablet,extended release,12 hr 500 mg PO BID #180 tab 03/25/17 losartan 50 mg tablet 50 mg PO DAILY #90 tab 10/17/17 clopidogrel 75 mg tablet 75 mg PO DAILY #90 tab 10/23/17 Cholecalciferol (Vitamin D3) [Vitamin D3] 50,000 unit PO QWEEK 11/23/17 Pantoprazole Sodium [Protonix] 20 mg PO BID 11/23/17 buPROPion SR [Wellbutrin SR (150mg tablets)] 150 mg PO DAILY 11/23/17 tiotropium bromide 2.5 mcg/actuation mist for inhalation 2 puff INHALATION QDAY #1 ea 12/10/17 isosorbide mononitrate ER 60 mg tablet,extended release 24 hr 120 mg PO DAILY tab 12/11/17 albuterol sulfate HFA 90 mcg/actuation aerosol inhaler 2 puff INHALATION Q6H PRN #18 g 01/29/18 Aspirin [Aspirin, Baby] 81 mg PO DAILY@0800 03/30/18 Metoprolol Tartrate 25 mg PO BID 03/30/18 Potassium Chloride [K-Dur] 20 meq PO BIDCM #20 tablet 04/05/18 Carvedilol 3.125 mg PO BID 08/01/18 busPIRone [Buspar] 15 mg PO TID 08/01/18 Doxycycline 100 mg PO BID #10 capsule 08/02/18 Prednisone 4 tab PO DAILY #20 tab.ds.pk 08/02/18 Following Prescrptions Were Given to Patient: Prednisone 4 tab PO DAILY #20 tab.ds.pk Primary Care Physician: Darleen Craig MD [Primary Care Provider] - Within 2 Weeks Please Follow Up With: Mercy Velasquez PA When: 08/13/18 Disposition: Home Minutes spent on discharge:: 28 Patient Condition:: Fair Medical Necessity - Tobacco Use Smoking Status: Former smoker Meaningful Use Info Meaningful Use Diagnoses (Choose all that apply): None applicable Code Visit OBSV E&M: 96363 Observation care discharge
--- NOTE | 2018-08-02 12:06 | DS.PCM_ITS ---
Discharge Date and Diagnosis - Problem List Patient Problems: Active and Suspected Problems (Last Reviewed 08/01/18 @ 15:50 by Jackson Peter DO) Lower respiratory infection (Acute) COPD exacerbation (Acute) Date of Admission: 08/01/18 Date of Discharge: 08/02/18 - Primary Discharge Diagnosis Active and Suspected Problems (Last Reviewed 08/01/18 @ 15:50 by Jackson Peter DO) Lower respiratory infection (Acute) COPD exacerbation (Acute) - Secondary Discharge Diagnosis Chronic Problems (Last Reviewed 08/01/18 @ 15:50 by Jackson Peter DO) Presence of stent in coronary artery (Chronic) PTCA/SUSAN to ostium of LMT 10/01/2014 @[facility]; PTCA/SUSAN of the mid/distal RCA 11/11/17 CAD (coronary artery disease) (Chronic) Successful PTCA/SUSAN of the of mid/distal RCA with a 2.25 x 38 Promus Synergy, post dilated proximally with a 3.0 x 12 NC balloon at 8 safia (2.5mm); 75%-->0%, no dissection. Successful PTCA/SUSAN of the proximal RCA with a 2.5 x 20 Promus Synergy, post dilated with a 3.0 x 12 at 14 safia; 75%-->0%, no dissection. Tobacco abuse (Chronic) Nonrheumatic tricuspid (valve) insufficiency (Chronic) Nonrheumatic mitral valve insufficiency (Chronic) Nicotine dependence, cigarettes, uncomplicated (Chronic) Hypertension (Chronic) Hyperlipidemia (Chronic) Atherosclerosis of [place] coronary artery of [place] heart without angina pectoris (Chronic) PTCA/SUSAN to ostium of LMT 10/01/2014 @[facility]; PTCA/SUSAN to mid/distal RCA and proximal RCA in November [address] [facility]; Peripheral vascular disease (Chronic) SOB (shortness of breath) (Chronic) Hospital Course and Treatment Imaging Results: Clinical Impression(s) from Imaging Studies Chest X-Ray 08/01/18 07:35 IMPRESSION: The heart is normal in size. Central vascular congestive changes and bibasilar platelike atelectatic change Electronically Signed: Lamont Figueredo MD at 8:08 EDT Tel , Service support , Operations: None Procedures: None Summary of Care Provided: The patient is a 73 year old F presents with acute shortness of breath. Diagnosed with COPD exacerbation and was on doxycycline, Solu-Medrol and bronchodilators. Did well just from the emergency room and was monitored overnight given her frequent hospitalizations and advanced COPD. Overnight patient had no events but in the morning was just not feeling well after she was woken up but was reevaluated several hours later and was feeling better. Gini lugo has no wheezes at this time. Patient will be discharged to continue with the doxycycline as well as burst of prednisone 40 mg for 5 days. [] Patient Problems: Active and Suspected Problems (Last Reviewed 08/01/18 @ 15:50 by Jackson Peter DO) Lower respiratory infection (Acute) COPD exacerbation (Acute) - Physical Exam General: Alert, No apparent distress HEENT: Atraumatic, Normocephalic Oral: Moist Mucosa, No Gingival or Mucosal Lesions/ Ulcerations Lungs: Clear to auscultation, Diminished Cardiovascular: Regular rate, Regular Rhythm, Normal S1, Normal S2 Psych/Mental Status: Normal Affect, Appropriate Vital Signs Temp Pulse Resp BP Pulse Ox 36.6 C 95 18 111/57 L 94 08/02/18 09:29 08/02/18 09:29 08/02/18 09:29 08/02/18 09:29 08/02/18 09:29 Oxygen Flow Rate (L/min) 4 Oxygen Delivery Method Nasal Cannula Weight: 63.185 kg Body Mass Index (BMI) 25.4 Intake and Output for Last 24 Hours 07/31/18 08/01/18 08/02/18 23:59 23:59 23:59 Intake Total 120 / 120 330 / 330 Balance 120 / 120 330 / 330 Laboratory Tests Past 24 Hrs 08/02/18 08/02/18 05:36 05:36 WBC 9.5 RBC 3.98 L Hgb 10.5 L Hct 33.7 L MCV 84.7 MCH 26.4 L MCHC 31.2 L RDW 14.3 RDW Differential 45.0 H Plt Count 433 MPV 9.8 Immature Gran % (Auto) 0.500 Neut % (Auto) 86.8 H Lymph % (Auto) 9.5 L Caroline % (Auto) 3.0 Eos % (Auto) 0.0 Baso % (Auto) 0.2 Absolute Neuts (auto) 8.2 H Absolute Lymphs (auto) 0.90 Total Counted Not Reportable Sodium 139 Potassium 4.4 Chloride 107 Carbon Dioxide 23.0 Anion Gap 9 BUN 37 H Creatinine 1.89 H Estim Creat Clear Calc 20.97 Est GFR (MDRD) Af Amer 34 L Est GFR (MDRD) Non-Af 28 L BUN/Creatinine Ratio 19.6 Glucose 133 H Calcium 8.6 Discharge Diet: Low fat/ Low Cholesterol Discharge Activity: Return to Normal Activity Call your doctor if you observe: Fever of 101 or Higher, Shortness of breath Home Medications: Medications to take at Discharge Amlodipine [Norvasc] 5 mg PO DAILY 07/13/14 Gabapentin [Neurontin] 300 mg PO TIDCM 07/13/14 cycloBENZAPRine HCl [Flexeril] 10 mg PO DAILY 07/13/14 Fluticasone/Vilanterol [Breo Ellipta 200-25 Mcg INH] 1 ea IH DAILY 12/17/16 Paroxetine HCl [Paxil] 40 mg PO DAILY 12/17/16 nitroglycerin 0.4 mg sublingual tablet 0.4 mg SUBLINGUAL Q5M PRN #25 tab 03/25/17 ranolazine ER 500 mg tablet,extended release,12 hr 500 mg PO BID #180 tab 03/25/17 losartan 50 mg tablet 50 mg PO DAILY #90 tab 10/17/17 clopidogrel 75 mg tablet 75 mg PO DAILY #90 tab 10/23/17 Cholecalciferol (Vitamin D3) [Vitamin D3] 50,000 unit PO QWEEK 11/23/17 Pantoprazole Sodium [Protonix] 20 mg PO BID 11/23/17 buPROPion SR [Wellbutrin SR (150mg tablets)] 150 mg PO DAILY 11/23/17 tiotropium bromide 2.5 mcg/actuation mist for inhalation 2 puff INHALATION QDAY #1 ea 12/10/17 isosorbide mononitrate ER 60 mg tablet,extended release 24 hr 120 mg PO DAILY tab 12/11/17 albuterol sulfate HFA 90 mcg/actuation aerosol inhaler 2 puff INHALATION Q6H PRN #18 g 01/29/18 Aspirin [Aspirin, Baby] 81 mg PO DAILY@0800 03/30/18 Metoprolol Tartrate 25 mg PO BID 03/30/18 Potassium Chloride [K-Dur] 20 meq PO BIDCM #20 tablet 04/05/18 Carvedilol 3.125 mg PO BID 08/01/18 busPIRone [Buspar] 15 mg PO TID 08/01/18 Doxycycline 100 mg PO BID #10 capsule 08/02/18 Prednisone 4 tab PO DAILY #20 tab.ds.pk 08/02/18 Following Prescrptions Were Given to Patient: Prednisone 4 tab PO DAILY #20 tab.ds.pk Primary Care Physician: Darleen Craig MD [Primary Care Provider] - Within 2 Weeks Please Follow Up With: Mercy Velasquez PA When: 08/13/18 Disposition: Home Minutes spent on discharge:: 28 Patient Condition:: Fair Medical Necessity - Tobacco Use Smoking Status: Former smoker Meaningful Use Info Meaningful Use Diagnoses (Choose all that apply): None applicable Code Visit OBSV E&M: 64543 Observation care discharge
--- NOTE | 2018-08-02 13:09 | CASEMGMT ---
Assessment- SW met with patient. Introduced self and role at [facility]. Patient was in agreement with answering SW's questions. Living situation- Patient lives in a 1 story home with her , daughter, son in law, and granddaughter. There is 1 entry step. PCP: Dr Craig Specialists: Dr Rodrigues- Cardiology and she sees a lung Dr, but does not remember his or her name. Pharmacy: [facility] DME: cane, walker, wheel chair, shower chair, and O2 from [employer] [facility]? ADL's/IADL's: Patient said she is independent with everything Past SNF/rehab: No past SNF Past HH: Yes, but could not remember agency LW: No POA: No Plan: Patient is being discharged today. She denies any discharge needs. Brenda GARZON MSW
[2018-08-02] MEDS: 0.9% Normal Saline 1,000 ML 150 ML IV (13:57)
[2018-08-02] MEDS: Atorvastatin Calcium 80 MG Tablet PO (21:14)
[2018-08-02] MEDS: 0.9% NaCl Peripheral Flush Adult/Peds IV (21:17)
[2018-08-03 01:15] VITALS: BP 117/49; PULSE 82; RESP 18; TEMP 36.5; O2SAT 95
[2018-08-03 03:00] VITALS: PULSE 74
[2018-08-03 06:41] VITALS: BP 120/69; PULSE 87; RESP 18; TEMP 36.6; O2SAT 94
[2018-08-03] MEDS: busPIRone 15 MG TABLET PO (06:42)
[2018-08-03] MEDS: Enoxaparin 40 MG/0.4 ML Syringe SC (06:42)
[2018-08-03] MEDS: 0.9% NaCl Peripheral Flush Adult/Peds IV (06:43)
[2018-08-03 06:56] VITALS: PULSE 91
[2018-08-03 08:24] VITALS: BP 131/80; PULSE 81; RESP 18; TEMP 36.6; O2SAT 96
[2018-08-03] MEDS: Carvedilol 3.125 MG TABLET PO (08:27)
[2018-08-03] MEDS: Clopidogrel Bisulfate 75 MG Tablet PO (08:28)
[2018-08-03] MEDS: Pantoprazole Sodium 20 MG Tablet PO (08:29)
[2018-08-03] MEDS: Doxycycline 100 MG CAPSULE PO (08:29)
[2018-08-03] MEDS: Aspirin 81 MG TAB.CHEW PO (08:29)
[2018-08-03] MEDS: buPROPion (SR) 150 MG Tablet.SA PO (08:29)
[2018-08-03] MEDS: cycloBENZAPRine HCl 10 MG Tablet PO (08:29)
[2018-08-03] MEDS: Acetaminophen 325 MG Tablet 650 MG PO (08:31)
[2018-08-03 08:34] LABS: Anion Gap 8 (5-15); BUN 47 mg/dL (7-18); BUN/Creat Ratio 32.2 RATIO (10-20); Calcium,Total 8.5 mg/dL (8.5-10.1); Chloride 110 mmol/L (98-107); Creatinine, Serum 1.46 mg/dL (0.55-1.02); EST Glomerular Filtration Rate 37 mL/min (>60); Est Glom Filt Rate - Afr Amer 45 mL/min (>60); Estimated Creatinine Clearance 27.14 ml/min; Glucose 109 mg/dL (74-106); Potassium 4.6 mmol/L (3.5-5.1); Sodium Level 141 mmol/L (136-145)
[2018-08-03] MEDS: Gabapentin 300 MG Capsule PO (08:40)
[2018-08-03] MEDS: Ranolazine 500 MG Tablet PO (08:40)
[2018-08-03] MEDS: predniSONE 20 MG Tablet 40 MG PO (10:37)
[2018-08-03] MEDS: Paroxetine 20 MG Tablet 40 MG PO (10:37)
--- NOTE | 2018-08-03 10:46 | DCINST_ITS ---
- Discharge Diagnoses Current Active Problems: Current Active and Chronic Problems (Last Reviewed 08/01/18 @ 15:50 by Jackson Peter DO) Lower respiratory infection (Acute) COPD exacerbation (Acute) You will use the following diet at home:: Cardiac Your food should be the consistency of: Regular Your liquids should be the consistency of: Regular/Thin Discharge Activity: Return to Normal Activity Call your doctor if you observe: Fever of 101 or Higher, Shortness of breath Allergies/Adverse Reactions: Allergies codeine Allergy (Unknown, Verified 08/01/18 07:22) Unknown lithium Allergy (Unknown, Verified 08/01/18 07:22) Unknown morphine Allergy (Unknown, Verified 08/01/18 07:22) Unknown naproxen [From Naprosyn] Allergy (Unknown, Verified 08/01/18:) Unknown phenobarbital Allergy (Unknown, Verified 08/01/18:22) Unknown Sulfa (Sulfonamide Antibiotics) Allergy (Unknown, Verified 08/01/18 07:22) Unknown albuterol Allergy (Verified 08/01/18:22) Rash fentanyl Adverse Reaction (Severe, Verified 08/01/18 07:22) Other OD on Fentany patch. Very sensitive to does 75mcg patch Iodine and Iodide Containing Produc Adverse Reaction (Verified 08/01/18:22) Unknown Penicillins [PCN] Adverse Reaction (Verified 08/01/18:22) Unknown Medications to take at Discharge Gabapentin [Neurontin] 300 mg PO TIDCM 07/13/14 cycloBENZAPRine HCl [Flexeril] 10 mg PO DAILY 07/13/14 Fluticasone/Vilanterol [Breo Ellipta 200-25 Mcg INH] 1 ea IH DAILY 12/17/16 Paroxetine HCl [Paxil] 40 mg PO DAILY 12/17/16 nitroglycerin 0.4 mg sublingual tablet 0.4 mg SUBLINGUAL Q5M PRN #25 tab 03/25/17 ranolazine ER 500 mg tablet,extended release,12 hr 500 mg PO BID #180 tab 03/25/17 clopidogrel 75 mg tablet 75 mg PO DAILY #90 tab 10/23/17 Cholecalciferol (Vitamin D3) [Vitamin D3] 50,000 unit PO QWEEK 11/23/17 Pantoprazole Sodium [Protonix] 20 mg PO BID 11/23/17 buPROPion SR [Wellbutrin SR (150mg tablets)] 150 mg PO DAILY 11/23/17 tiotropium bromide 2.5 mcg/actuation mist for inhalation 2 puff INHALATION QDAY #1 ea 12/10/17 albuterol sulfate HFA 90 mcg/actuation aerosol inhaler 2 puff INHALATION Q6H PRN #18 g 01/29/18 Aspirin [Aspirin, Baby] 81 mg PO DAILY@0800 03/30/18 Potassium Chloride [K-Dur] 20 meq PO BIDCM #20 tablet 04/05/18 Carvedilol 3.125 mg PO BID 08/01/18 busPIRone [Buspar] 15 mg PO TID 08/01/18 Doxycycline 100 mg PO BID #10 capsule 08/02/18 Prednisone 4 tab PO DAILY #20 tab.ds.pk 08/02/18 The following prescriptions were given: Prednisone 4 tab PO DAILY #20 tab.ds.pk Primary Care Physician: Darleen Craig MD [Primary Care Provider] - Within 2 Weeks Test Results: Test results from this visit will be discussed in further detail at your follow- up appointment, if applicable. Please Follow Up With: Mercy Velasquez PA When: 08/13/18 Proposed Discharge Date: 08/02/18
--- NOTE | 2018-08-03 10:48 | PCM.PN.HOSP ---
Patient Problems: Active and Suspected Problems (Last Reviewed 08/01/18 @ 15:50 by Jackson Peter DO) Lower respiratory infection (Acute) COPD exacerbation (Acute) Subjective: Feels better. Has been up to the bathroom without difficulties. Is anxious to go home. No further dizziness. Vitals/I&O's: Vital Signs Temp Pulse Resp BP Pulse Ox 36.6 C 81 18 131/80 H 96 08/03/18 08:24 08/03/18 08:24 08/03/18 08:24 08/03/18 08:24 08/03/18 08:24 Oxygen Flow Rate (L/min) 4 Oxygen Delivery Method Nasal Cannula Weight: 63.185 kg Body Mass Index (BMI) 25.4 Intake and Output for Last 24 Hours 08/01/18 08/02/18 08/03/18 23:59 23:59 23:59 Intake Total 120 / 120 1720 / 1720 604 / 604 Balance 120 / 120 1720 / 1720 604 / 604 General: Alert, No apparent distress HEENT: Atraumatic, Normocephalic Oral: Moist Mucosa, No Gingival or Mucosal Lesions/ Ulcerations Neck: No Nodes, Thyroid Normal Size and Texture Lungs: Diminished, - - Upper respiratory wheeze. No stridor. Cardiovascular: Regular rate, Regular Rhythm, Normal S1, Normal S2 Psych/Mental Status: Normal Affect, Appropriate Microbiology Past 72 Hours 08/01/18 07:15 Blood Culture (Wb) - Anticubital Left Blood Culture - Preliminary No growth in 48 hours. Laboratory Results 08/03/18 06:45: Sodium 141, Potassium 4.6, Chloride 110 H, Carbon Dioxide 23.0, Anion Gap 8, BUN 47 H, Creatinine 1.46 H, Estim Creat Clear Calc 27.14, Est GFR (MDRD) Af Amer 45 L, Est GFR (MDRD) Non-Af 37 L, BUN/Creatinine Ratio 32.2 H, Glucose 109 H, Calcium 8.5 Current Medications Acetaminophen (Tylenol) 650 mg PO Q6H PRN PRN PRN Reason: Mild Pain (1-3)/Temp > 100.7 F Last Admin: 08/03/18 08:31 Dose: 650 mg Aspirin (Aspirin, Baby) 81 mg PO DAILY@0800 NAIF Last Admin: 06/02/19 08:29 Dose: 81 mg Atorvastatin Calcium (Lipitor) 80 mg PO QHS [facility] Last Admin: 08/02/18 21:14 Dose: 80 mg Bupropion HCl (Wellbutrin Sr (150mg Tablets)) 150 mg PO DAILY [facility] Last Admin: 08/03/18 08:29 Dose: 150 mg Buspirone HCl (Buspar) 15 mg PO TID [facility] Last Admin: 08/03/18 06:42 Dose: 15 mg [facility] ([facility]) [facility] Last Admin: 08/03/18 08:27 Dose: 3.125 mg Clopidogrel Bisulfate (Plavix) 75 mg PO DAILY [facility] Last Admin: 08/03/18 08:28 Dose: 75 mg Cyclobenzaprine HCl (Flexeril) 10 mg PO DAILY [facility] Last Admin: 08/03/18 08:29 Dose: 10 mg Doxycycline Monohydrate (Doxycycline) 100 mg PO BID [facility] Last Admin: 08/03/18 08:29 Dose: 100 mg Enoxaparin Sodium (Lovenox) 40 mg SC DAILY@0600 [facility] Last Admin: 08/03/18 06:42 Dose: 40 mg Ergocalciferol (Vitamin D) 50,000 unit PO QWEEK [facility] Gabapentin (Neurontin) 300 mg PO TIDCM [facility] Last Admin: 08/03/18 08:40 Dose: 300 mg Levalbuterol HCl (Xopenex) 0.63 mg IH Q2H PRN PRN Reason: SHORTNESS OF BREATH Nitroglycerin (Nitrostat) 0.4 mg SUBLINGUAL Q5M PRN PRN Reason: Chest Pain Ondansetron HCl (Zofran) 4 mg IV Q8H PRN PRN PRN Reason: NAUSEA/VOMITING Pantoprazole Sodium (Protonix) 20 mg PO BID [facility] Last Admin: 08/03/18 08:29 Dose: 20 mg Paroxetine HCl (Paxil) 40 mg PO DAILY [facility] Last Admin: 08/03/18 10:37 Dose: 40 mg Potassium Chloride (K-Dur) [facility] Last Admin: 08/03/18 08:40 Dose: 20 meq Prednisone () 40 mg PO DAILY@0800 [facility] Ranolazine (Ranexa) 500 mg PO BID [facility] Last Admin: 08/03/18 08:40 Dose: 500 mg Sodium Chloride () 5 - 15 ml IV UD PRN PRN Reason: SALINE FLUSH Last Admin: 08/03/18 06:43 Dose: 10 ml Medical Necessity - Tobacco Use Smoking Status: Former smoker Assessment/Plan All Active Problems (Last Reviewed 08/01/18 @ 15:50 by Jackson Peter DO) Lower respiratory infection (Acute) Pulmonary embolism (Acute) Cholelithiasis NOS (Acute) Acute respiratory failure with hypoxia and hypercapnia (Acute) COPD with acute exacerbation (Acute) Gram-negative pneumonia (Acute) Acute hypercapnic respiratory failure (Acute) NSTEMI (non-ST elevated myocardial infarction) (Acute) COPD exacerbation (Acute) Congestive heart failure (Acute) 1. Acute exacerbation of COPD Overall much better and not audibly wheezing. Patient is slightly diminished but equal air sounds bilaterally. Discharge with prednisone for 5 days plus doxycycline. Patient was saying that she was vomiting the antibiotic she was taking at home but is tolerating antibiotics here. Appears that she was on doxycycline at home so not sure if there is another antibiotic that she was on that was not on the medical reconciliation form or not. 2. Hypotension Likely iatrogenic. Losartan, Imdur, amlodipine and metoprolol been held and her blood pressures improved. Continue with carvedilol 3. Acute kidney injury: Likely prerenal. Improved with fluids 4. Coronary artery disease Stable Continue with aspirin, atorvastatin, Ranexa, carvedilol 5. VTE prophylaxis: Moderate risk. Patient be on Lovenox. Code Visit Inpatient E&M: 45973 Disch Hosp
--- NOTE | 2018-08-03 10:51 | PN_ITS ---
Patient Problems: Active and Suspected Problems (Last Reviewed 08/01/18 @ 15:50 by Jackson Peter DO) Lower respiratory infection (Acute) COPD exacerbation (Acute) Subjective: Feels better. Has been up to the bathroom without difficulties. Is anxious to go home. No further dizziness. Vitals/I&O's: Vital Signs Temp Pulse Resp BP Pulse Ox 36.6 C 81 18 131/80 H 96 08/03/18 08:24 08/03/18 08:24 08/03/18 08:24 08/03/18 08:24 08/03/18 08:24 Oxygen Flow Rate (L/min) 4 Oxygen Delivery Method Nasal Cannula Weight: 63.185 kg Body Mass Index (BMI) 25.4 Intake and Output for Last 24 Hours 08/01/18 08/02/18 08/03/18 23:59 23:59 23:59 Intake Total 120 / 120 1720 / 1720 604 / 604 Balance 120 / 120 1720 / 1720 604 / 604 General: Alert, No apparent distress HEENT: Atraumatic, Normocephalic Oral: Moist Mucosa, No Gingival or Mucosal Lesions/ Ulcerations Neck: No Nodes, Thyroid Normal Size and Texture Lungs: Diminished, - - Upper respiratory wheeze. No stridor. Cardiovascular: Regular rate, Regular Rhythm, Normal S1, Normal S2 Psych/Mental Status: Normal Affect, Appropriate Microbiology Past 72 Hours 08/01/18 07:15 Blood Culture (Wb) - Anticubital Left Blood Culture - Preliminary No growth in 48 hours. Laboratory Results 08/03/18 06:45: Sodium 141, Potassium 4.6, Chloride 110 H, Carbon Dioxide 23.0, Anion Gap 8, BUN 47 H, Creatinine 1.46 H, Estim Creat Clear Calc 27.14, Est GFR (MDRD) Af Amer 45 L, Est GFR (MDRD) Non-Af 37 L, BUN/Creatinine Ratio 32.2 H, Glucose 109 H, Calcium 8.5 Current Medications Acetaminophen (Tylenol) 650 mg PO Q6H PRN PRN PRN Reason: Mild Pain (1-3)/Temp > 100.7 F Last Admin: 08/03/18 08:31 Dose: 650 mg Aspirin (Aspirin, Baby) 81 mg PO DAILY@0800 NAIF Last Admin: 06/02/19 08:29 Dose: 81 mg Atorvastatin Calcium (Lipitor) 80 mg PO QHS [facility] Last Admin: 08/02/18 21:14 Dose: 80 mg Bupropion HCl (Wellbutrin Sr (150mg Tablets)) 150 mg PO DAILY [facility] Last Admin: 08/03/18 08:29 Dose: 150 mg Buspirone HCl (Buspar) 15 mg PO TID [facility] Last Admin: 08/03/18 06:42 Dose: 15 mg [facility] Last Admin: 08/03/18 08:27 Dose: 3.125 mg Clopidogrel Bisulfate (Plavix) 75 mg PO DAILY [facility] Last Admin: 08/03/18 08:28 Dose: 75 mg Cyclobenzaprine HCl (Flexeril) 10 mg PO DAILY [facility] Last Admin: 08/03/18 08:29 Dose: 10 mg Doxycycline Monohydrate (Doxycycline) 100 mg PO BID [facility] Last Admin: 08/03/18 08:29 Dose: 100 mg Enoxaparin Sodium (Lovenox) 40 mg SC DAILY@0600 [facility] Last Admin: 08/03/18 06:42 Dose: 40 mg Ergocalciferol (Vitamin D) 50,000 unit PO QWEEK [facility] Gabapentin (Neurontin) 300 mg PO TIDCM [facility] Last Admin: 08/03/18 08:40 Dose: 300 mg Levalbuterol HCl (Xopenex) 0.63 mg IH Q2H PRN PRN Reason: SHORTNESS OF BREATH Nitroglycerin (Nitrostat) 0.4 mg SUBLINGUAL Q5M PRN PRN Reason: Chest Pain Ondansetron HCl (Zofran) 4 mg IV Q8H PRN PRN PRN Reason: NAUSEA/VOMITING Pantoprazole Sodium (Protonix) 20 mg PO BID [facility] Last Admin: 08/03/18 08:29 Dose: 20 mg Paroxetine HCl (Paxil) 40 mg PO DAILY [facility] Last Admin: 08/03/18 10:37 Dose: 40 mg Potassium [facility]) [facility] Last Admin: 08/03/18 08:40 Dose: 20 meq Prednisone () 40 mg PO DAILY@0800 [facility] Ranolazine (Ranexa) 500 mg PO BID [facility] Last Admin: 08/03/18 08:40 Dose: 500 mg Sodium Chloride () 5 - 15 ml IV UD PRN PRN Reason: SALINE FLUSH Last Admin: 08/03/18 06:43 Dose: 10 ml Medical Necessity - Tobacco Use Smoking Status: Former smoker Assessment/Plan All Active Problems (Last Reviewed 08/01/18 @ 15:50 by Jackson Peter DO) Lower respiratory infection (Acute) Pulmonary embolism (Acute) Cholelithiasis NOS (Acute) Acute respiratory failure with hypoxia and hypercapnia (Acute) COPD with acute exacerbation (Acute) Gram-negative pneumonia (Acute) Acute hypercapnic respiratory failure (Acute) NSTEMI (non-ST elevated myocardial infarction) (Acute) COPD exacerbation (Acute) Congestive heart failure (Acute) 1. Acute exacerbation of COPD * Overall much better and not audibly wheezing. Patient is slightly diminished but equal air sounds bilaterally. * Discharge with prednisone for 5 days plus doxycycline. Patient was saying that she was vomiting the antibiotic she was taking at home but is tolerating antibiotics here. Appears that she was on doxycycline at home so not sure if there is another antibiotic that she was on that was not on the medical reconciliation form or not. 2. Hypotension * Likely iatrogenic. Losartan, Imdur, amlodipine and metoprolol been held and her blood pressures improved. * Continue with carvedilol 3. Acute kidney injury: * Likely prerenal. Improved with fluids 4. Coronary artery disease * Stable * Continue with aspirin, atorvastatin, Ranexa, carvedilol 5. VTE prophylaxis: Moderate risk. Patient be on Lovenox. Code Visit Inpatient E&M: 69951 Disch Hosp
--- NOTE | 2018-08-04 14:30 | CASEMGMT ---
Addendum entered by Denver Aburto 08/04/18 15:47: Pt returned phone call. States she is doing well, however antibiotic is upsetting her stomach. LEIGH MEJIAS recommended if continues, to call PCP to discuss. Pt states otherwise she is doing well and no concerns. No care improvement suggestions were given. [place] VELIZ Original Note: LEIGH MEJIAS DC PHONE CALL DC DATE: 08/02/18 DC Disposition: Home LACE/STRATA: 02/04 Attempted call to phone. No answer. [place] MAHAN RN ACM
== END 2018-08-03 11:28 | disposition home or self-care (01) | DRG 140 ==
LOC: ED 09:16 → PCU 09:52
PROVIDERS: Emergency Provider Emergency Medicine; Family Provider Internal Medicine; PCP Internal Medicine
DX: J44.1 Chronic obstructive pulmonary disease with (acute) exacerbation (principal); J44.0 Chronic obstructive pulmonary disease with (acute) lower respiratory infection; Z99.81 Dependence on supplemental oxygen; Z95.5 Presence of coronary angioplasty implant and graft; I25.10 Atherosclerotic heart disease of native coronary artery without angina pectoris; I36.1 Nonrheumatic tricuspid (valve) insufficiency; I11.0 Hypertensive heart disease with heart failure; E78.5 Hyperlipidemia, unspecified; I25.2 Old myocardial infarction; G47.33 Obstructive sleep apnea (adult) (pediatric); K21.9 Gastro-esophageal reflux disease without esophagitis; M79.7 Fibromyalgia; Z79.51 Long term (current) use of inhaled steroids; Z79.899 Other long term (current) drug therapy; Z87.891 Personal history of nicotine dependence; I95.9 Hypotension, unspecified; N17.9 Acute kidney failure, unspecified; I50.22 Chronic systolic (congestive) heart failure
CPT/HCPCS: 36415; 36600; 71045; 80048; 82803; 83605; 84484; 85025; 87040; 93005; 94640; 97162; 97166; 97530; 97535; 99285; J7030; J7040; A4216

== ENCOUNTER 2018-09-11 22:06 | Observation (INO) | payer MEDICAID, SELFPAY ==
[2018-08-01 10:21] VITALS: BMI 25.4
[2018-09-11 22:07] VITALS: BP 139/74; PULSE 104; RESP 24; TEMP 36.8; O2SAT 93; BMI 29.9
[2018-09-11 22:12] VITALS: PULSE 100; RESP 24; TEMP 36.8; O2SAT 92
[2018-09-11 22:13] VITALS: O2SAT 93
--- NOTE | 2018-09-11 22:45 | EKG12_ITS ---
Test Reason : SOB Blood Pressure : / mmHG Vent. Rate : 089 BPM Atrial Rate : 089 BPM P-R Int : 144 ms QRS Dur : 082 ms QT Int : 354 ms P-R-T Axes : 010 011 088 degrees QTc Int : 430 ms Normal sinus rhythm Normal ECG Confirmed by JOÃO IVEY, ANGIE ([id number]), [employer] NORMA RODRIGUEZ ([id number]) on 09/12/2018 12:20:45 PM Referred By: Bianka Johnson Confirmed By:ANGIE MOYER MD
--- NOTE | 2018-09-11 22:47 | ED.VIS.GEN ---
History of Present Illness Chief Complaint: Shortness of Breath Informant: Patient Onset: Today Current Severity: Moderate Maximum Severity: Moderate Narrative: Patient has history of COPD and states she tends to get more short of breath when the weather gets hot humid. Patient states today she has had more trouble breathing. Physical therapist came to her home today and she was so short of breath she could not get out of bed. Reportedly her pulse ox readings were low at home and she had increase her oxygen from normal 3 to 4 L up to 5 L. She has had moist sounding cough. She reports some mild chest tightness from coughing. She denies fever or chills. She has not been on prednisone for her breathing in approximately 1 month. - Past Medical History (1) COPD (chronic obstructive pulmonary disease) Status: Chronic (2) Congestive heart failure Status: Acute (3) NSTEMI (non-ST elevated myocardial infarction) Status: Acute (4) CAD (coronary artery disease) Status: Chronic Comment: Successful PTCA/SUSAN of the of mid/distal RCA with a 2.25 x 38 Promus Synergy, post dilated proximally with a 3.0 x 12 NC balloon at 8 safia (2.5mm); 75%-->0%, no dissection. Successful PTCA/SUSAN of the proximal RCA with a 2.5 x 20 Promus Synergy, post dilated with a 3.0 x 12 at 14 safia; 75%-->0%, no dissection. (5) Hyperlipidemia Status: Chronic (6) Hypertension Status: Chronic (7) Peripheral vascular disease Status: Chronic (8) Presence of stent in coronary artery Status: Chronic Comment: PTCA/SUSAN to ostium of LMT 10/01/2014 @[facility]; PTCA/SUSAN of the mid/distal RCA 11/11/17 Past Medical History - Allergies and Home Meds Allergies/Adverse Reactions: Allergies codeine Allergy (Unknown, Verified 09/11/18 22:12) Unknown lithium Allergy (Unknown, Verified 09/11/18 22:12) Unknown morphine Allergy (Unknown, Verified 09/11/18 22:12) Unknown naproxen [From Naprosyn] Allergy (Unknown, Verified 09/11/18 22:12) Unknown phenobarbital Allergy (Unknown, Verified 09/11/18 22:12) Unknown Sulfa (Sulfonamide Antibiotics) Allergy (Unknown, Verified 09/11/18 22:12) Unknown albuterol Allergy (Verified 09/11/18 22:12) Rash fentanyl Adverse Reaction (Severe, Verified 09/11/18 22:12) Other OD on Fentany patch. Very sensitive to does 75mcg patch Iodine and Iodide Containing Produc Adverse Reaction (Verified 09/11/18 22:12) Unknown Penicillins [PCN] Adverse Reaction (Verified 09/11/18 22:12) Unknown Primary Care Physician: Darleen Craig MD [Primary Care Provider] - Prior records reviewed: Yes Past Medical History: - - Reviewed Surgical History: appendectomy, - - cad with stent Smoking Status: Former smoker - Family History Maternal Family History: Family History (Last Reviewed 08/01/18 @ 15:50 by Jackson Peter DO) Mother CAD (coronary artery disease) Hypertension Sister CAD (coronary artery disease) Myocardial infarction Family History: Reports: Diabetes, Heart Disease, Stroke Paternal Family History: Family History (Last Reviewed 08/01/18 @ 15:50 by Jackson Peter DO) Mother CAD (coronary artery disease) Hypertension Sister CAD (coronary artery disease) Myocardial infarction Family History: Reports: Diabetes, Stroke Review of Systems General: Denies: Chills, Fever Cardiovascular: Reports: Chest pain, - - Lung tightness Respiratory: Reports: Dyspnea, Cough. Denies: Sputum Gastrointestinal: Denies: Abdominal pain, Nausea, Vomiting Physical Exam Vital Signs/Narrative: Vital Signs Temp Pulse Resp BP Pulse Ox 09/11/18 22:12 98.2 F 100 24 H 92 09/11/18 22:07 98.3 F 104 H 24 H 139/74 H 93 Inital Vital Signs reviewed: Yes General: Well nourished, Well developed ENT: Moist mucous membranes Cardiovascular: Regular rate, Regular rhythm Respiratory: No distress, Wheezing, - - Expiratory wheezes throughout Abdomen: Soft, Nontender Extremities: Nontender Skin: Normal color Neurological: Alert, Oriented x3 Psychological: Normal affect Diagnostic/Tx/Re-eval Impressions Chest X-Ray 09/11/18 22:50 IMPRESSION: Suspect fibrotic changes with reticular infiltrate seen in the lung bases however these been present since November 2017 and appear chronic at 2325 Reported and signed by: Linette Post DO Electronically Signed: Linette ArtisDO mireille at 23:24 EDT Tel , Service support , 09/11/18 22:50 Chest 1 View (Portable) [RAD] Stat Laboratory Results 09/11/18 09/11/18 22:32 22:32 WBC 10.8 RBC 4.07 L Hgb 10.7 L Hct 34.1 L MCV 83.8 MCH 26.3 L MCHC 31.4 L RDW 16.3 H RDW Differential 50.0 H Plt Count 507 H MPV 9.5 Immature Gran % (Auto) 1.200 H Neut % (Auto) 65.7 Lymph % (Auto) 21.8 [place] % (Auto) 6.6 Eos % (Auto) 4.2 Baso % (Auto) 0.5 Absolute Neuts (auto) 7.1 Absolute Lymphs (auto) 2.36 Total Counted Not Reportable Sodium 138 Potassium 4.5 Chloride 108 H Carbon Dioxide 26.0 Anion Gap 4 L BUN 27 H Creatinine 1.04 H Estim Creat Clear Calc 38.10 Est GFR (MDRD) Af Amer 67 Est GFR (MDRD) Non-Af 55 L BUN/Creatinine Ratio 26.0 H Glucose 105 Calcium 9.1 Troponin I < 0.015 - EKG Initial EKG Interpretation: Sinus Rhythm, - - Sinus rhythm 89 bpm with no sign of acute ischemia. - Medical Decision Making Patient was initially given IV Solu-Medrol and DuoNeb treatment. On repeat evaluation she had significant improvement in her breathing. Approximately 45 minutes later patient had increased wheezing again and another albuterol treatment has been ordered. I will speak with the hospitalist regarding observation overnight. There is no evidence of infiltrate. She will be given a p.o. dose of doxycycline. ED Disposition - Plan for ED Patient: Disposition: Acute Care Hospital [facility] Diagnosis: COPD exacerbation Referrals: Darleen Craig MD [Primary Care Provider] -
--- NOTE | 2018-09-11 22:50 | RAD_ITS ---
HISTORY:sob sob EXAM: XR Chest 1 View: COMPARISON: August 01, 2018 FINDINGS: # of images incl. paperwork: 1 LINES/DEVICES: None. LUNGS: Fibrotic changes are seen bilaterally. There are reticular infiltrates seen within the lung bases. These have been present since the prior study of November 23, 2017.. No consolidation, edema or effusion. No pneumothorax. MEDIASTINUM AND CARDIOVASCULAR STRUCTURES: Cardiac silhouette not enlarged. BONES AND SOFT TISSUES: Unremarkable. RAD/Chest 1 View (Portable) IMPRESSION: Suspect fibrotic changes with reticular infiltrate seen in the lung bases however these been present since November 2017 and appear chronic at 1285 Reported and signed by: Linette Post DO Electronically Signed: Linette Post DO at 23:24 EDT Tel , Service support ,
[2018-09-11 23:02] VITALS: PULSE 90; RESP 28
[2018-09-11] MEDS: Ipratropium/Albuterol Sulfate 3 ML AMPUL.NEB INHALATION (23:03)
[2018-09-11 23:04] LABS: Absolute Lymphocyte Count 2.36 X10^3/ul (0.83-4.51); Absolute Neutrophil Count 7.1 X10^3/uL (2.0-7.7); Basophil# 0.05 X10^3/uL; Basophil% 0.5 % (0-1); Eosinophil# 0.46 X10^3/uL; Eosinophils% 4.2 % (0-5); Hematocrit 34.1 % (37-47); Hemoglobin 10.7 g/dl (12.0-15.0); Lymphocyte # 2.36 X10^3/ul (4.0); Lymphocyte % 21.8 % (19-41); Mean Corp Hgb Conc 31.4 g/gl (32-36); Mean Corpuscular Hgb 26.3 pg (27.0-32.0); Mean Corpuscular Volume 83.8 fL (81-99); Mean Platelet Vol. 9.5 fl (6.2-12.0); Monocyte# 0.72 X10^3/uL; Monocyte% 6.6 % (0-10); Neutrophil # 7.11 X10^3/uL (2.7-7.7); Neutrophil % 65.7 % (47-70); Platelet Count 507 K/mm3 (150-450); RBC Distribution Width CV 16.3 % (11.6-14.6); Red Blood Count 4.07 M/mm3 (4.2-5.4); White Blood Count 10.8 K/mm3 (4.4-11.0)
[2018-09-11 23:05] LABS: POSITIVE COUNT NO; POSITIVE DIFFERENTIAL NO; POSITIVE MORPHOLOGY NO
[2018-09-11] MEDS: MethylPREDNISolone 125 MG/2 ML Vial IV (23:06)
[2018-09-11 23:08] LABS: Anion Gap 4 (5-15); BUN 27 mg/dL (7-18); Calcium,Total 9.1 mg/dL (8.5-10.1); Chloride 108 mmol/L (98-107); Creatinine, Serum 1.04 mg/dL (0.55-1.02); EST Glomerular Filtration Rate 55 mL/min (>60); Est Glom Filt Rate - Afr Amer 67 mL/min (>60); Glucose 105 mg/dL (74-106); Potassium 4.5 mmol/L (3.5-5.1); Sodium Level 138 mmol/L (136-145)
[2018-09-11] MEDS: Albuterol 2.5 MG/3 ML VIAL.NEB. INHALATION (23:58)
[2018-09-12] VITALS (18 sets, daily range): BP systolic 95–156; BP diastolic 49–82; PULSE 76–115; RESP 16–26; TEMP 36.4–37; O2SAT 92–97; BMI 27.3
[2018-09-12] MEDS: Doxycycline 100 MG CAPSULE PO (00:20)
--- NOTE | 2018-09-12 03:23 | HP.PCM_ITS ---
Problem List (1) COPD with acute exacerbation Status: Acute (2) Congestive heart failure Status: Chronic Qualifiers: Heart failure type: diastolic Heart failure chronicity: chronic Qualified Code(s): I50.32 - Chronic diastolic (congestive) heart failure (3) Hypertension Status: Chronic Qualifiers: Hypertension type: essential hypertension (4) Hyperlipidemia Status: Chronic Qualifiers: (5) Peripheral vascular disease Status: Chronic History of Present Illness Date of Admission: 09/12/18 Chief Complaint: Shortness of breath The patient is a 73 year old F with past medical history of COPD with chronic respiratory failure on 3 to 4 L of oxygen, PRP, history of chronic diastolic heart failure, hypertension, hyperlipidemia who comes in with complaints of shortness of breath ongoing since morning. On the day of admission, her home health aide came and checked her oxygen and she was in the 80s. She had low energy and was progressively short of breath with the least amount of movement. She attributes her progressive shortness of breath to the humid weather. She denied any fever or chills or sick contacts. She has been using her oxygen and her breathing treatments. She denies smoking. Last smoked in March 2018. Vitals in the ED show temperature 98.3 F, heart rate 104, blood pressure 139/74, respiratory rate was 24, SPO2 93% on 4 L of oxygen. Her admitting labs showed CBC count of 10.8, hemoglobin 10.7, platelet count 507, sodium is 138, potassium 4.5, chloride 108, bicarbonate 26, BUN 27, creatinine 1.04, findings are negative Past Medical History Past Medical History (Chronic Problems): Chronic Problems (Last Reviewed 08/01/18 @ 15:50 by Jackson Peter DO) COPD (chronic obstructive pulmonary disease) (Chronic) Presence of stent in coronary artery (Chronic) PTCA/SUSAN to ostium of LMT 10/01/2014 @[facility]; PTCA/SUSAN of the mid/distal RCA 11/11/17 CAD (coronary artery disease) (Chronic) Successful PTCA/SUSAN of the of mid/distal RCA with a 2.25 x 38 Promus Synergy, post dilated proximally with a 3.0 x 12 NC balloon at 8 safia (2.5mm); 75%-->0%, no dissection. Successful PTCA/SUSAN of the proximal RCA with a 2.5 x 20 Promus Synergy, post dilated with a 3.0 x 12 at 14 safia; 75%-->0%, no dissection. Tobacco abuse (Chronic) Congestive heart failure (Chronic) Nonrheumatic tricuspid (valve) insufficiency (Chronic) Nonrheumatic mitral valve insufficiency (Chronic) Nicotine dependence, cigarettes, uncomplicated (Chronic) Hypertension (Chronic) Hyperlipidemia (Chronic) Atherosclerosis of [place] coronary artery of [place] heart without angina pectoris (Chronic) PTCA/SUSAN to ostium of LMT 10/01/2014 @[facility]; PTCA/SUSAN to mid/distal RCA and proximal RCA in November 2017 at [facility]; Peripheral vascular disease (Chronic) SOB (shortness of breath) (Chronic) Medical History: Medical History (Last Reviewed 08/01/18 @ 15:50 by Jackson Peter DO) Presence of stent in coronary artery (Chronic) Z95.5 PTCA/SUSAN to ostium of LMT 10/01/2014 @[facility]; PTCA/SUSAN of the mid/distal RCA 11/11/17 Acute respiratory failure with hypoxia and hypercapnia (Acute) J96.01, J96.02 COPD with acute exacerbation (Acute) J44.1 Gram-negative pneumonia (Acute) J15.6 Acute hypercapnic respiratory failure (Acute) J96.02 NSTEMI (non-ST elevated myocardial infarction) (Acute) I21.4 COPD exacerbation (Acute) J44.1 CAD (coronary artery disease) (Chronic) I25.10 Successful PTCA/SUSAN of the of mid/distal RCA with a 2.25 x 38 Promus Synergy, post dilated proximally with a 3.0 x 12 NC balloon at 8 safia (2.5mm); 75%-->0%, no dissection. Successful PTCA/SUSAN of the proximal RCA with a 2.5 x 20 Promus Synergy, post dilated with a 3.0 x 12 at 14 safia; 75%-->0%, no dissection. Tobacco abuse (Chronic) Z72.0 Congestive heart failure (Acute) I50.9 Nonrheumatic tricuspid (valve) insufficiency (Chronic) I36.1 Nonrheumatic mitral valve insufficiency (Chronic) I34.0 Nicotine dependence, cigarettes, uncomplicated (Chronic) F17.210 Hypertension (Chronic) I10 Hyperlipidemia (Chronic) E78.5 Atherosclerosis of [place] coronary artery of [place] heart without angina pectoris (Chronic) I25.10 PTCA/SUSAN to ostium of LMT 10/01/2014 @[facility]; PTCA/SUSAN to mid/distal RCA and proximal RCA in November 2017 at [facility]; Peripheral vascular disease (Chronic) I73.9 SOB (shortness of breath) (Chronic) R06.02 Anemia D64.9 COPD (chronic obstructive pulmonary disease) J44.9 Diabetes mellitus E11.9 Fibromyalgia M79.7 GERD (gastroesophageal reflux disease) K21.9 Hyperlipidemia E78.5 MARISABEL (obstructive sleep apnea) G47.33 Allergies codeine Allergy (Unknown, Verified 09/12/18 01:10) nausea, hives morphine Allergy (Unknown, Verified 09/12/18 01:10) Nausea naproxen [From Naprosyn] Allergy (Unknown, Verified 09/12/18 01:10) Hives Sulfa (Sulfonamide Antibiotics) Allergy (Unknown, Verified 09/12/18 01:10) Hives albuterol Allergy (Verified 09/11/18 22:12) Rash fentanyl Adverse Reaction (Severe, Verified 09/12/18 01:10) Rash OD on Fentany patch. Very sensitive to does 75mcg patch lithium Adverse Reaction (Unknown, Verified 09/12/18 01:10) anger phenobarbital Adverse Reaction (Unknown, Verified 09/12/18 01:10) anger Iodine and Iodide Containing Produc Adverse Reaction (Verified 09/12/18 01:10) Hives Penicillins [PCN] Adverse Reaction (Verified 09/12/18 01:10) Hives Home Medications: Ambulatory Orders Medication Instructions Recorded Gabapentin [Neurontin] 600 mg PO TIDCM 07/13/14 cycloBENZAPRine HCl [Flexeril] 10 mg PO DAILY 07/13/14 Fluticasone/Vilanterol [Breo 1 ea IH DAILY 12/17/16 Ellipta 200-25 Mcg INH] Paroxetine HCl [Paxil] 40 mg PO DAILY 12/17/16 nitroglycerin 0.4 mg sublingual 0.4 mg SUBLINGUAL Q5M PRN #25 tab 03/25/17 tablet ranolazine ER 500 mg 500 mg PO BID #180 tab 03/25/17 tablet,extended release,12 hr clopidogrel 75 mg tablet 75 mg PO DAILY #90 tab 10/23/17 Cholecalciferol (Vitamin D3) 50,000 unit PO QWEEK 11/23/17 [Vitamin D3] Pantoprazole Sodium [Protonix] 20 mg PO BID 11/23/17 buPROPion SR [Wellbutrin SR (150mg 150 mg PO DAILY 11/23/17 tablets)] tiotropium bromide 2.5 2 puff INHALATION QDAY #1 ea 12/10/17 mcg/actuation mist for inhalation albuterol sulfate HFA 90 2 puff INHALATION Q6H PRN #18 g 01/29/18 mcg/actuation aerosol inhaler Aspirin [Aspirin, Baby] 81 mg PO DAILY@0800 03/30/18 Potassium Chloride [K-Dur] 20 meq PO BIDCM #20 tablet 04/05/18 Prednisone 4 tab PO DAILY #20 tab.ds.pk 08/02/18 Amlodipine Besylate 5 mg PO DAILY 09/11/18 Apixaban [Eliquis] 5 mg PO BID 09/11/18 Atorvastatin Calcium 80 mg PO DAILY 09/11/18 DiphenhydrAMINE [Benadryl] 25 mg PO TID PRN PRN 09/11/18 Fenofibrate [Tricor] 145 mg PO DAILY 09/11/18 Guaifenesin [Mucinex] 1 tab PO BID 09/11/18 Ipratropium [Atrovent Inhaler] 2 puff INHALATION 4X/DAY 09/11/18 Isosorbide Mononitrate [Imdur] 90 mg PO DAILY 09/11/18 Levalbuterol HCl 1 puff INHALATION 4X/DAY PRN PRN 09/11/18 Losartan Potassium [Cozaar] 1 tab PO DAILY 09/11/18 Metoprolol Tartrate 25 mg PO DAILY 09/11/18 Surgical History: Surgical History (Last Reviewed 08/01/18 @ 15:50 by Jackson Peter DO) H/O tubal ligation Z98.51 History of left heart catheterization Z98.890 Hx of appendectomy Z98.890, Z90.49 S/P femoral-femoral bypass surgery Z95.828 with gorortex graft in 2001; removal of infected graft with reconstructions of right superficial artery in 2002 Surgical History: appendectomy, - - cad with stent, this was carpal tunnel surgeries Psychiatric History: No pertinent psych hx [employer] History: No pertinent [employer] history Lives: Spouse/ Significant Other, With Family Smoking Status: Former smoker Tobacco Use: Non-smoker Alcohol: None Drugs: None - *Family History Maternal Family History: Family History (Last Reviewed 08/01/18 @ 15:50 by Jackson Peter DO) Mother CAD (coronary artery disease) Hypertension Sister CAD (coronary artery disease) Myocardial infarction History Items: Diabetes, Heart Disease, Stroke Paternal Family History: Family History (Last Reviewed 08/01/18 @ 15:50 by Jackson Peter DO) Mother CAD (coronary artery disease) Hypertension Sister CAD (coronary artery disease) Myocardial infarction History Items: Diabetes, Stroke Review of Systems Constitutional: Denies: Anorexia, Chills, Fever, Malaise, Weakness, Weight Change Eyes: Denies: Blurred vision, Cataracts, Conjunctivae Inflammation, Pain, Redness HEENT: Denies: Difficulty Hearing, Difficulty Swallowing, Head Aches, Hearing Changes, Sinus Congestion, Sinus Drainage Cardiovascular: Denies: Chest Pain, Claudication, Orthopnea, Palpitations Respiratory: Reports: Cough, Shortness of Breath, Shortness of breath at rest, Shortness of breath upon exertion. Denies: Sputum production Gastrointestinal: Denies: Abdominal Pain, Constipation, Hematemesis, Hematochezia, Nausea, Vomiting Genitourinary: Denies: Dysuria, Frequency, Incontinence, Nocturia Gynecological: Denies: Breast symptoms, Excessively long or heavy periods Musculoskeletal: Denies: Joint Pain, Joint stiffness, Joint swelling, Joint Tenderness Skin: Denies: Rash, Wounds Neurological: Denies: Difficulty swallowing, Focal weakness, Numbness, Tingling Psychiatric: Denies: Anxiety, Depression, Homicidal Ideations, Suicidal Ideations Hematologic/ Lymphatic: Denies: Easy Bruising, Easy Bleeding VTE Information - Inpt Only VTE Present on Admission: No VTE Pharm Prophylaxis ordered?: Yes Patient Problems: Active and Suspected Problems (Last Reviewed 08/01/18 @ 15:50 by Jackson Peter DO) COPD exacerbation (Acute) - Physical Exam General: Alert, Oriented x3, Cooperative, No apparent distress, - - On 4 L of oxygen, able to complete sentences HEENT: Atraumatic, PERRLA, EOMI, Normocephalic Oral: Moist Mucosa Neck: Supple Lungs: Normal air movement, Diminished, Wheezes - Scattered Cardiovascular: Regular rate, Regular Rhythm, Normal S1, Normal S2, No murmurs Abdomen: Bowel Sounds Present, Soft, Non Tender, Non-Distended, No Hepato- splenomegaly Extremities: No edema Skin: No rashes, No breakdown Musculoskeletal: No Tenderness to Palpation of Joints or Extremities Lymphatic: No Cervical, Supraclavicular, or Inguinal Adenopathy Neurological: Cranial nerves II-XII grossly intact, Neuro grossly intact Psych/Mental Status: Normal Affect, Appropriate Vital Signs Temp Pulse Resp BP Pulse Ox 97.8 F 102 H 20 H 156/82 H 97 09/12/18 01:00 09/12/18 01:00 09/12/18 01:00 09/12/18 01:00 09/12/18 01:00 Oxygen Flow Rate (L/min) 4 Oxygen Delivery Method Nasal Cannula Weight: 67.8 kg Body Mass Index (BMI) 27.3 Laboratory Tests Past 24 Hrs 09/11/18 09/11/18 22:32 22:32 WBC 10.8 RBC 4.07 L Hgb 10.7 L Hct 34.1 L MCV 83.8 MCH 26.3 L MCHC 31.4 L RDW 16.3 H RDW Differential 50.0 H Plt Count 507 H MPV 9.5 Immature Gran % (Auto) 1.200 H Neut % (Auto) 65.7 Lymph % (Auto) 21.8 [place] % (Auto) 6.6 Eos % (Auto) 4.2 Baso % (Auto) 0.5 Absolute Neuts (auto) 7.1 Absolute Lymphs (auto) 2.36 Total Counted Not Reportable Sodium 138 Potassium 4.5 Chloride 108 H Carbon Dioxide 26.0 Anion Gap 4 L BUN 27 H Creatinine 1.04 H Estim Creat Clear Calc 38.10 Est GFR (MDRD) Af Amer 67 Est GFR (MDRD) Non-Af 55 L BUN/Creatinine Ratio 26.0 H Glucose 105 Calcium 9.1 Troponin I < 0.015 Assessment/Plan All Active Problems (Last Reviewed 08/01/18 @ 15:50 by Jackson Peter DO) Lower respiratory infection (Acute) Pulmonary embolism (Acute) Cholelithiasis NOS (Acute) Acute respiratory failure with hypoxia and hypercapnia (Acute) COPD with acute exacerbation (Acute) Gram-negative pneumonia (Acute) Acute hypercapnic respiratory failure (Acute) NSTEMI (non-ST elevated myocardial infarction) (Acute) COPD exacerbation (Acute) 73 year old F with past medical history of COPD with chronic respiratory failure on 3 to 4 L of oxygen, H/o PE, history of chronic diastolic heart failure, hypertension, hyperlipidemia who comes in with complaints of shortness of breath ongoing since morning. 1. Acute COPD exacerbation, mild, unclear etiology, in a patient with history of COPD, ex-smoker, with chronic respiratory failure, on 4 L of oxygen, same as here Admitting chest x-ray did not show any acute cardiopulmonary process. Plan: Admit to [facility], continue breathing treatment, IV Solu-Medrol, encourage use of incentive spirometer, continue on oxygen Would not continue on antibiotics as patient appears to be improving and is at her baseline oxygen. She will need to be monitored overnight to make sure she continues to stay on her baseline oxygen level Will need ambulatory oxygen evaluation in a.m. 2. History of PE, on apixaban 3. Chronic diastolic heart failure, no signs of acute exacerbation 4. Hypertension, controlled, continue home regimen -amlodipine, losartan, beta- jenna 5. CAD status post stent/hyperlipidemia, no signs of acute chest pain, continue on aspirin, statin, Plavix, isosorbide, metoprolol, ranolazine 6. DVT prophylaxis with apixaban Code Visit Inpatient E&M: 24554 Init Hosp L2
[2018-09-12] MEDS: 0.9% NaCl Peripheral Flush Adult/Peds IV ×3 (06:42→21:45)
[2018-09-12] MEDS: Ipratropium 0.5 MG/2.5 ML SOLUTION INHALATION ×3 (07:19→19:40)
--- NOTE | 2018-09-12 08:31 | EKG12_ITS ---
Test Reason : CP Blood Pressure : / mmHG Vent. Rate : 115 BPM Atrial Rate : 115 BPM P-R Int : 164 ms QRS Dur : 086 ms QT Int : 326 ms P-R-T Axes : 061 039 084 degrees QTc Int : 450 ms Sinus tachycardia Nonspecific ST and T wave abnormality Abnormal ECG Confirmed by PILAR IVEY, BETINA ([id number]), commissioning editor NORMA RODRIGUEZ ([id number]) on 09/18/2018 10:36:22 AM Referred By: Bianka Johnson Confirmed By:BETINA QUEZADA MD
[2018-09-12] MEDS: Metoprolol Tartrate 25 MG Tablet PO (08:34)
[2018-09-12] MEDS: Losartan Potassium 50 MG Tablet PO (08:34)
[2018-09-12] MEDS: amLODIPine 5 MG Tablet PO (08:34)
[2018-09-12] MEDS: Fenofibrate 145 MG Tablet PO (08:35)
[2018-09-12] MEDS: Isosorbide Mononitrate 30 MG Tablet 90 MG PO (08:35)
[2018-09-12] MEDS: cycloBENZAPRine HCl 10 MG Tablet PO (08:35)
[2018-09-12] MEDS: Gabapentin 600 MG Tablet PO ×3 (08:35→17:12)
[2018-09-12] MEDS: Aspirin 81 MG TAB.CHEW PO (08:35)
[2018-09-12] MEDS: Pantoprazole Sodium 20 MG Tablet PO ×2 (08:35→21:44)
[2018-09-12] MEDS: Clopidogrel Bisulfate 75 MG Tablet PO (08:35)
[2018-09-12] MEDS: buPROPion (SR) 150 MG Tablet.SA PO (08:36)
[2018-09-12] MEDS: APIXABAN 5 MG TABLET PO ×2 (08:36→21:45)
[2018-09-12] MEDS: Paroxetine 20 MG Tablet 40 MG PO (08:36)
[2018-09-12] MEDS: Ranolazine 500 MG Tablet PO ×2 (08:36→21:44)
--- NOTE | 2018-09-12 09:42 | PN_ITS ---
Patient Problems: Active and Suspected Problems (Last Reviewed 08/01/18 @ 15:50 by Jackson Peter DO) COPD exacerbation (Acute) Subjective: Patient seen and examined. She was admitted with complaint of shortness of breath and is been managed for COPD exacerbation. Patient still complains of shortness of breath. She also complains of chest pain patient states is retrosternal and pressure-like. Initial EKG troponin done on admission was negative. Patient has had 2 heart attacks in the past with the last one being in November 2017 and states at that time she also has shortness of breath. Review of systems otherwise negative. Stat EKG and troponin series ordered. Vitals/I&O's: Vital Signs Temp Pulse Resp BP Pulse Ox 98.1 F 110 H 22 H 134/65 H 95 09/12/18 06:00 09/12/18 08:34 09/12/18 07:25 09/12/18 06:00 09/12/18 07:47 Oxygen Flow Rate (L/min) 4 Oxygen Delivery Method Nasal Cannula Weight: 149 lb 0.52 oz Body Mass Index (BMI) 27.3 Intake and Output for Last 24 Hours 09/10/18 09/11/18 09/12/18 23:59 23:59 23:59 Intake Total 100 / 100 Balance 100 / 100 General: Alert, Oriented x3, Cooperative, No apparent distress HEENT: Atraumatic, PERRLA, EOMI, Normocephalic Oral: Dry Mucosa Neck: Supple, No JVD, Negative Carotid Bruits Lungs: - - decreased breath sounds bibasally, has some few fine crackles bibasa lly. Wheezes in all lung meza bilaterally. on 4L of oxygen, which is her baseline. Cardiovascular: Regular rate, Regular Rhythm, Normal S1, Normal S2, No murmurs Abdomen: Bowel Sounds Present, Soft, Non Tender, Non-Distended, No Hepato- splenomegaly Extremities: No clubbing, No cyanosis, No edema, Capillary Refill Less than 3 Seconds Skin: No rashes, No breakdown Musculoskeletal: No Tenderness to Palpation of Joints or Extremities Lymphatic: No Cervical, Supraclavicular, or Inguinal Adenopathy Neurological: Cranial nerves II-XII grossly intact, Neuro grossly intact, Motor Exam 5/5 strength throughout Psych/Mental Status: Normal Affect, Appropriate, Alert and oriented to time, place, person, mood and affect Laboratory Results 09/11/18 22:32: WBC 10.8, RBC 4.07 L, Hgb 10.7 L, Hct 34.1 L, MCV 83.8, MCH 26.3 L, MCHC 31.4 L, RDW 16.3 H, RDW Differential 50.0 H, Plt Count 507 H, MPV 9.5, Immature Gran % (Auto) 1.200 H, Neut % (Auto) 65.7, Lymph % (Auto) 21.8, Henderson % (Auto) 6.6, Eos % (Auto) 4.2, Baso % (Auto) 0.5, Absolute Neuts (auto) 7.1, Absolute Lymphs (auto) 2.36, Total Counted Not Reportable 09/11/18 22:32: Sodium 138, Potassium 4.5, Chloride 108 H, Carbon Dioxide 26.0, Anion Gap 4 L, BUN 27 H, Creatinine 1.04 H, Estim Creat Clear Calc 38.10, Est GFR (MDRD) Af Amer 67, Est GFR (MDRD) Non-Af 55 L, BUN/Creatinine Ratio 26.0 H, Glucose 105, Calcium 9.1, Troponin I < 0.015 09/12/18 08:50: Troponin I < 0.015 Diagnostic Data Chest X-Ray 09/11/18 22:50 IMPRESSION: Suspect fibrotic changes with reticular infiltrate seen in the lung bases however these been present since November 2017 and appear chronic at 2325 Reported and signed by: Linette Post DO Electronically Signed: Linette Post DO at 23:24 EDT Tel , Service support , Current Medications Acetaminophen (Tylenol) 650 mg PO Q6H PRN PRN PRN Reason: Mild Pain (1-3)/Temp > 100.7 F Albuterol/Ipratropium (Duoneb) 3 ml INHALATION Q4HWA.RT NAIF Amlodipine Besylate (Norvasc) 5 mg PO DAILY NAIF Last Admin: 07/12/19 08:34 Dose: 5 mg Documented by: Apixaban (Eliquis) 5 mg PO BID [facility] Last Admin: 09/12/18 08:36 Dose: 5 mg Documented by: Aspirin (Aspirin, Baby) 81 mg PO DAILY@0800 [facility] Last Admin: 09/12/18 08:35 Dose: 81 mg Documented by: Atorvastatin Calcium (Lipitor) 80 mg PO DAILY@2200 [facility] Bupropion HCl (Wellbutrin Sr (150mg Tablets)) 150 mg PO DAILY [facility] Last Admin: 09/12/18 08:36 Dose: 150 mg Documented by: Clopidogrel Bisulfate (Plavix) 75 mg PO DAILY [facility] Last Admin: 09/12/18 08:35 Dose: 75 mg Documented by: Cyclobenzaprine HCl (Flexeril) 10 mg PO DAILY [facility] Last Admin: 09/12/18 08:35 Dose: 10 mg Documented by: Fenofibrate (Tricor) 145 mg PO DAILY [facility] Last Admin: 09/12/18 08:35 Dose: 145 mg Documented by: Gabapentin (Neurontin) 600 mg PO TIDCM [facility] Last Admin: 09/12/18 08:35 Dose: 600 mg Documented by: Guaifenesin (Robitussin) 20 ml PO Q4H PRN PRN PRN Reason: COUGH Ipratropium [place] (Atrovent) 0.5 mg INHALATION Q6HWA.RT [facility] Last Admin: 09/12/18 07:19 Dose: 0.5 mg Documented by: Isosorbide Mononitrate (Imdur) 90 mg PO DAILY [facility] Last Admin: 09/12/18 08:35 Dose: 90 mg Documented by: Levalbuterol HCl (Xopenex) 0.63 mg IH 4X/DAY PRN PRN PRN Reason: SOB &/OR WHEEZING Losartan Potassium (Cozaar) 50 mg PO DAILY [facility] Last Admin: 09/12/18 08:34 Dose: 50 mg Documented by: Methylprednisolone (Solu-Medrol) 40 mg IV Q8 [facility] Last Admin: 09/12/18 06:42 Dose: 40 mg Documented by: Metoprolol Tartrate (Lopressor (Beta Tata)) 25 mg PO DAILY [facility] Last Admin: 09/12/18 08:34 Dose: 25 mg Documented by: Nitroglycerin (Nitrostat) 0.4 mg SUBLINGUAL Q5M PRN PRN Reason: Chest Pain Nutritional Formula (Lactose Free) (Ensure Enlive) 120 ml PO 4X/DAY [facility] Last Admin: 09/12/18 08:36 Dose: 120 ml Documented by: Pantoprazole Sodium (Protonix) 20 mg PO BID [facility] Last Admin: 09/12/18 08:35 Dose: 20 mg Documented by: Paroxetine HCl (Paxil) 40 mg PO DAILY [facility] Last Admin: 09/12/18 08:36 Dose: 40 mg Documented by: Potassium [facility] ([facility]) [facility] Last Admin: 09/12/18 08:34 Dose: 20 meq Documented by: Ranolazine (Ranexa) 500 mg PO BID [facility] Last Admin: 09/12/18 08:36 Dose: 500 mg Documented by: Sodium Chloride () 10 - 40 ml IV UD PRN PRN Reason: SALINE FLUSH Last Admin: 09/12/18 06:42 Dose: 10 ml Documented by: Medical Necessity - Tobacco Use Smoking Status: Former smoker Tobacco Use: Non-smoker Assessment/Plan All Active Problems (Last Reviewed 08/01/18 @ 15:50 by Jackson Peter DO) Lower respiratory infection (Acute) Pulmonary embolism (Acute) Cholelithiasis NOS (Acute) Acute respiratory failure with hypoxia and hypercapnia (Acute) COPD with acute exacerbation (Acute) Gram-negative pneumonia (Acute) Acute hypercapnic respiratory failure (Acute) NSTEMI (non-ST elevated myocardial infarction) (Acute) COPD exacerbation (Acute) 1. Acute COPD exacerbation * admitted with a complaint of SOB * CXR showed no acute cardiopulmonary process * on her baseline 4L of oxygen * now complains of chest pain * does have a history of HFpEF; will check BNP as well * continue IV solumedrol and breathing treatments * precipitant for COPD exacerbation is not clear. hasnt had any URTI symptoms * 2. Chest pain, to r/o ACS * patient now complaint of chest pain which is retrosternal and pressure like * she has a history of NSTEMI x 2 s/p stents * initial troponin done on admission was negative; will check troponin series * EKG done showed sinus bradycardia with no acute ST changes * 3. History of PE: on eliquis 4. HFpEF: BNP pending. not on lasix, per med rec. 5. CAD s/p stent: on aspirin, statin, plavix, imdur, metoprolol and ranolazine. 6. Hypertension: on amlodipine, losartan and metoprolol DVT prophylaxis: on apixaban. Code Visit OBSV E&M: 54739 Subsequent observation care L2
--- NOTE | 2018-09-12 09:44 | CASEMGMT ---
[facility] MEJIAS Assessment. Presentation: COPD with exacerbation. Hx of chronic resp failure, CHF, HRN. Intro role of CM to patient and her granddaughter. Pt has difficulty remember details and granddaughter able to assist. Pt is awake, alert and in good spirits. PCP: Dr Craig Specialists: Dr Rodrigues- Cardiology, Pt states she sees [facility], but RN RANDELL called and pt has only been seen in hospital. Pharmacy: [facility] Living situation- Patient lives in a 1 story home with her , daughter, son in law, and granddaughter. There is 1 entry step. Pt is independent in most DME. Family assists as needed and with meals, chores and transportation. DME: cane, walker, wheel chair, shower chair, and O2 through [facility]. Concentrator, portable tanks. Pt states nebulizer is supposed to be delivered today. Past SNF/rehab: No past SNF Past HH: Pt states she is current with home health but does not agency. Granddaughter is calling family to assist with name. DC Disposition: Home with resumption Home Health. [place] BACHN RN ACM
[2018-09-12 10:31] LABS: Absolute Neutrophil Count 8.2 X10^3/uL (2.0-7.7); Basophil# 0.02 X10^3/uL; Basophil% 0.2 % (0-1); Eosinophil# 0.01 X10^3/uL; Eosinophils% 0.1 % (0-5); Hematocrit 34.1 % (37-47); Hemoglobin 10.6 g/dl (12.0-15.0); Lymphocyte % 7.8 % (19-41); Mean Corp Hgb Conc 31.1 g/gl (32-36); Mean Corpuscular Hgb 26.1 pg (27.0-32.0); Mean Platelet Vol. 9.5 fl (6.2-12.0); Monocyte# 0.02 X10^3/uL; Monocyte% 0.2 % (0-10); Neutrophil # 8.18 X10^3/uL (2.7-7.7); Neutrophil % 90.7 % (47-70); POSITIVE COUNT NO; POSITIVE DIFFERENTIAL NO; POSITIVE MORPHOLOGY NO; Platelet Count 533 K/mm3 (150-450); RBC Distribution Width CV 16.2 % (11.6-14.6); RBC Distribution Width SD 49.4 fl (35.1-43.9); Red Blood Count 4.06 M/mm3 (4.2-5.4)
[2018-09-12 10:54] LABS: BNP,B-Type NATRIURETIC PEPTIDE 103.5 pg/mL (0-100)
--- NOTE | 2018-09-12 11:14 | CASEMGMT ---
Addendum entered by Kapil Little 09/12/18 11:26: Confirmed with RN, Elizabeth, pt has own portable O2 tank in room to use @ discharge. Original Note: LEIGH MEJIAS NOTE: Pt's family brought paperwork in from [facility]. Call placed to [facility] and spoke with Agnes. She was made aware pt is admitted @ [facility] under OBS status presently. She confirms that pt is active with them and is currently only receiving PT services. She states pt had group home but was just discharged from on 09/10. [facility]: PH: [phone] Phone # to call if discharged over the weekend: [phone] Green sheet placed on chart if pt is discharged over the weekend with instructions re: Resumption of [facility] PT services. Stacey MAHAN RN CM
[2018-09-12] MEDS: Acetaminophen 325 MG Tablet 650 MG PO ×2 (12:06→23:25)
[2018-09-12] MEDS: Atorvastatin Calcium 80 MG Tablet PO (21:44)
[2018-09-12 22:56] LABS: Allen Test POS; Base Excess -4 mmol/L (-2 to +2); Bicarbonate 20.7 mmol/L (22-26); Blood Gas Specimen Type ART; O2 Delivery Device Nasal Can; PO2 63 mmHG (75-100); SITE L Radial; SO2 92 % (95-99); Time Given 2240; Total Carbon Dioxide 22 mmol/L; pCO2 34.8 mmHg (35-45); pH 7.38 (7.35-7.45)
--- NOTE | 2018-09-12 23:28 | NURSING ---
Patient called out asking for pain medication, PRN tylenol available. This RN went into patients room and patient is awake and alert and seemed much appropriate, talking to nurse and voicing needs. Able to make conversation, speech clear. Will continue to monitor.
[2018-09-12 23:32] LABS: Anion Gap 7 (5-15); BUN 38 mg/dL (7-18); BUN/Creat Ratio 30.2 RATIO (10-20); Calcium,Total 8.7 mg/dL (8.5-10.1); Chloride 106 mmol/L (98-107); Creatinine, Serum 1.26 mg/dL (0.55-1.02); EST Glomerular Filtration Rate 44 mL/min (>60); Est Glom Filt Rate - Afr Amer 54 mL/min (>60); Estimated Creatinine Clearance 31.45 ml/min; Glucose 149 mg/dL (74-106); Potassium 4.8 mmol/L (3.5-5.1); Sodium Level 135 mmol/L (136-145)
[2018-09-13] VITALS (7 sets, daily range): BP systolic 112–121; BP diastolic 60–98; PULSE 80–98; RESP 16–20; TEMP 36.4–36.9; O2SAT 90–94
[2018-09-13] MEDS: 0.9% NaCl Peripheral Flush Adult/Peds IV (05:57)
[2018-09-13] MEDS: Ipratropium 0.5 MG/2.5 ML SOLUTION INHALATION (06:54)
[2018-09-13] MEDS: Acetaminophen 325 MG Tablet 650 MG PO (08:37)
[2018-09-13] MEDS: Gabapentin 600 MG Tablet PO (08:38)
[2018-09-13] MEDS: Fenofibrate 145 MG Tablet PO (08:38)
[2018-09-13] MEDS: Ranolazine 500 MG Tablet PO (08:38)
[2018-09-13] MEDS: Isosorbide Mononitrate 30 MG Tablet 90 MG PO (08:39)
[2018-09-13] MEDS: Pantoprazole Sodium 20 MG Tablet PO (08:39)
[2018-09-13] MEDS: Clopidogrel Bisulfate 75 MG Tablet PO (08:40)
[2018-09-13] MEDS: buPROPion (SR) 150 MG Tablet.SA PO (08:40)
[2018-09-13] MEDS: Metoprolol Tartrate 25 MG Tablet PO (08:40)
[2018-09-13] MEDS: cycloBENZAPRine HCl 10 MG Tablet PO (08:40)
[2018-09-13] MEDS: amLODIPine 5 MG Tablet PO (08:41)
[2018-09-13] MEDS: Aspirin 81 MG TAB.CHEW PO (08:41)
[2018-09-13] MEDS: Losartan Potassium 50 MG Tablet PO (08:41)
[2018-09-13] MEDS: APIXABAN 5 MG TABLET PO (08:42)
[2018-09-13] MEDS: Paroxetine 20 MG Tablet 40 MG PO (08:42)
--- NOTE | 2018-09-13 10:12 | PCM.DC ---
- Discharge Diagnoses Current Active Problems: Current Active and Chronic Problems (Last Reviewed 08/01/18 @ 15:50 by Jackson Peter DO) COPD exacerbation (Acute) You will use the following diet at home:: Cardiac Your food should be the consistency of: Regular Your liquids should be the consistency of: Regular/Thin Discharge Activity: Return to Normal Activity Weight Bearing Status: Weight bearing as tolerated Call your doctor if you observe: Fever of 101 or Higher, Shortness of breath, Swelling in the ankles Instructions: Care for COPD, Diagnosing COPD, Treatments for COPD Allergies/Adverse Reactions: Allergies codeine Allergy (Unknown, Verified 09/12/18 01:10) nausea, hives morphine Allergy (Unknown, Verified 09/12/18 01:10) Nausea naproxen [From Naprosyn] Allergy (Unknown, Verified 09/12/18 01:10) Hives Sulfa (Sulfonamide Antibiotics) Allergy (Unknown, Verified 09/12/18 01:10) Hives albuterol Allergy (Verified 09/11/18 22:12) Rash fentanyl Adverse Reaction (Severe, Verified 09/12/18 01:10) Rash OD on Fentany patch. Very sensitive to does 75mcg patch lithium Adverse Reaction (Unknown, Verified 09/12/18 01:10) anger phenobarbital Adverse Reaction (Unknown, Verified 09/12/18 01:10) anger Iodine and Iodide Containing Produc Adverse Reaction (Verified 09/12/18 01:10) Hives Penicillins [PCN] Adverse Reaction (Verified 09/12/18 01:10) Hives Medications to take at Discharge Gabapentin [Neurontin] 600 mg PO TIDCM 07/13/14 cycloBENZAPRine HCl [Flexeril] 10 mg PO DAILY 07/13/14 Fluticasone/Vilanterol [Breo Ellipta 200-25 Mcg INH] 1 ea IH DAILY 12/17/16 Paroxetine HCl [Paxil] 40 mg PO DAILY 12/17/16 nitroglycerin 0.4 mg sublingual tablet 0.4 mg SUBLINGUAL Q5M PRN #25 tab 03/25/17 ranolazine ER 500 mg tablet,extended release,12 hr 500 mg PO BID #180 tab 03/25/17 clopidogrel 75 mg tablet 75 mg PO DAILY #90 tab 10/23/17 Cholecalciferol (Vitamin D3) [Vitamin D3] 50,000 unit PO QWEEK 11/23/17 Pantoprazole Sodium [Protonix] 20 mg PO BID 11/23/17 buPROPion SR [Wellbutrin SR (150mg tablets)] 150 mg PO DAILY 11/23/17 tiotropium bromide 2.5 mcg/actuation mist for inhalation 2 puff INHALATION QDAY #1 ea 12/10/17 albuterol sulfate HFA 90 mcg/actuation aerosol inhaler 2 puff INHALATION Q6H PRN #18 g 01/29/18 Aspirin [Aspirin, Baby] 81 mg PO DAILY@0800 03/30/18 Potassium Chloride [K-Dur] 20 meq PO BIDCM #20 tablet 04/05/18 Amlodipine Besylate 5 mg PO DAILY 09/11/18 Apixaban [Eliquis] 5 mg PO BID 09/11/18 Atorvastatin Calcium 80 mg PO DAILY 09/11/18 DiphenhydrAMINE [Benadryl] 25 mg PO TID PRN PRN 09/11/18 Fenofibrate [Tricor] 145 mg PO DAILY 09/11/18 Guaifenesin [Mucinex] 1 tab PO BID 09/11/18 Ipratropium [Atrovent Inhaler] 2 puff INHALATION 4X/DAY 09/11/18 Isosorbide Mononitrate [Imdur] 90 mg PO DAILY 09/11/18 Levalbuterol HCl 1 puff INHALATION 4X/DAY PRN PRN 09/11/18 Losartan Potassium [Cozaar] 1 tab PO DAILY 09/11/18 Metoprolol Tartrate 25 mg PO DAILY 09/11/18 Prednisone 40 mg PO DAILY #10 tablet 09/13/18 The following prescriptions were given: Prednisone 40 mg PO DAILY #10 tablet Primary Care Physician: Darleen Craig MD [Primary Care Provider] - Please follow up with your Primary Care Physician in: one week Test Results: Test results from this visit will be discussed in further detail at your follow-up appointment, if applicable. Proposed Discharge Date: 09/13/18
--- NOTE | 2018-09-13 10:13 | DS.PCM_ITS ---
Discharge Date and Diagnosis - Problem List Patient Problems: Active and Suspected Problems (Last Reviewed 08/01/18 @ 15:50 by Jackson Peter DO) COPD exacerbation (Acute) Date of Admission: 09/12/18 Date of Discharge: 09/13/18 - Primary Discharge Diagnosis Active and Suspected Problems (Last Reviewed 08/01/18 @ 15:50 by Jackson Peter DO) COPD exacerbation (Acute) - Secondary Discharge Diagnosis Chronic Problems (Last Reviewed 08/01/18 @ 15:50 by Jackson Peter DO) COPD (chronic obstructive pulmonary disease) (Chronic) Presence of stent in coronary artery (Chronic) PTCA/SUSAN to ostium of LMT 10/01/2014 @[facility]; PTCA/SUSAN of the mid/distal RCA 11/11/17 CAD (coronary artery disease) (Chronic) Successful PTCA/SUSAN of the of mid/distal RCA with a 2.25 x 38 Promus Synergy, post dilated proximally with a 3.0 x 12 NC balloon at 8 safia (2.5mm); 75%-->0%, no dissection. Successful PTCA/SUSAN of the proximal RCA with a 2.5 x 20 Promus Synergy, post dilated with a 3.0 x 12 at 14 safia; 75%-->0%, no dissection. Tobacco abuse (Chronic) Congestive heart failure (Chronic) Nonrheumatic tricuspid (valve) insufficiency (Chronic) Nonrheumatic mitral valve insufficiency (Chronic) Nicotine dependence, cigarettes, uncomplicated (Chronic) Hypertension (Chronic) Hyperlipidemia (Chronic) Atherosclerosis of [place] coronary artery of [place] heart without angina pectoris (Chronic) PTCA/SUSAN to ostium of LMT 10/01/2014 @[facility]; PTCA/SUSAN to mid/distal RCA and proximal RCA in November 2017 at [facility]; Peripheral vascular disease (Chronic) SOB (shortness of breath) (Chronic) Hospital Course and Treatment Imaging Results: Diagnostic Data Chest X-Ray 09/11/18 22:50 IMPRESSION: Suspect fibrotic changes with reticular infiltrate seen in the lung bases however these been present since November 2017 and appear chronic at 2325 Reported and signed by: Linette Post DO Electronically Signed: Linette Post DO at 23:24 EDT Tel , Service support , Operations: None Procedures: None Summary of Care Provided: Patient is a 73-year-old female with a past medical history which includes chronic respiratory failure due to COPD, on 3 to 4 L of oxygen at home as well as a history of chronic diastolic heart failure, hypertension and hyperlipidemia. She was admitted to the ED on 09/12/2018 with a complaint of shortness of breath since the morning of admission. Her home health aide had checked her oxygen and she was noted to be in the 80s. She had no fever, chills, chest pain or palpitations. CXR on admission did not show any cute cardiopulmonary process. She was admitted and managed for acute COPD exacerbation. She was started on breathing treatments and steroids. She subsequently complained of mild chest pain with coughing. Troponins x 3 were negative and EKG showed no acute ST changes. BNP was also not elevated (103.5). Patient shortness of breath gradually improved she felt better. She remained stable and was discharged home on 09/13/2018 on her baseline 3 to 4 L of oxygen. She is follow-up with her primary care doctor within 1 week. Was discharged with a prescription for p.o. prednisone 40 mg daily for 5 days. Patient seen and examined prior to discharge. She had no complaints and felt well. Shortness of breath had improved. Review of systems is otherwise negative. Labs and vitals reviewed. Home medications reviewed and reconciled. o/e: Vital Signs Height 5 ft 2 in Weight: 149 lb 0.52 oz Weight in Pounds 149.0 lbs Pulse Ox 93 Temperature 97.5 F Pulse Rate 98 Respiratory Rate 18 Blood Pressure 121/98 Blood Pressure Position Semi-Fowlers General: Alert, Oriented x3, Cooperative, No apparent distress HEENT: Atraumatic, PERRLA, EOMI, Normocephalic Oral: moist Mucosa Neck: Supple, No JVD, Negative Carotid Bruits Lungs: - - decreased breath sounds bibasally. Minimal wheezing inlung meza on 4L of oxygen, which is her baseline. Cardiovascular: Regular rate, Regular Rhythm, Normal S1, Normal S2, No murmurs Abdomen: Bowel Sounds Present, Soft, Non Tender, Non-Distended, No Hepato- splenomegaly Extremities: No clubbing, No cyanosis, No edema, Capillary Refill Less than 3 Seconds Skin: No rashes, No breakdown Musculoskeletal: No Tenderness to Palpation of Joints or Extremities Lymphatic: No Cervical, Supraclavicular, or Inguinal Adenopathy Neurological: Cranial nerves II-XII grossly intact, Neuro grossly intact, Motor Exam 5/5 strength throughout Psych/Mental Status: Normal Affect, Appropriate, Alert and oriented to time, p lace, person, mood and affect Plan is as above. Patient discharged home on 09/13/18. Patient Problems: Active and Suspected Problems (Last Reviewed 08/01/18 @ 15:50 by Jackson Peter DO) COPD exacerbation (Acute) - Physical Exam Vital Signs Temp Pulse Resp BP Pulse Ox 98.4 F 98 16 118/65 90 09/13/18 06:20 09/13/18 08:40 09/13/18 06:54 09/13/18 06:20 09/13/18 06:54 Oxygen Flow Rate (L/min) 3 Oxygen Delivery Method Nasal Cannula Weight: 149 lb 0.52 oz Body Mass Index (BMI) 27.3 Intake and Output for Last 24 Hours 09/11/18 09/12/18 09/13/18 23:59 23:59 23:59 Intake Total 1050 / 1050 500 / 500 Balance 1050 / 1050 500 / 500 Laboratory Tests Past 24 Hrs 09/12/18 09/12/18 09/12/18 09:42 09:42 11:25 WBC 9.0 RBC 4.06 L Hgb 10.6 L Hct 34.1 L MCV 84.0 MCH 26.1 L MCHC 31.1 L RDW 16.2 H RDW Differential 49.4 H Plt Count 533 H MPV 9.5 Immature Gran % (Auto) 1.000 H Neut % (Auto) 90.7 H Lymph % (Auto) 7.8 L Gregg % (Auto) 0.2 Eos % (Auto) 0.1 Baso % (Auto) 0.2 Absolute Neuts (auto) 8.2 H Absolute Lymphs (auto) 0.70 L Total Counted Not Reportable Specimen Type Sample Site pH Bicarbonate Actual POC Total CO2 Base Excess O2 Saturation ABG pCO2 ABG pO2 Angelo Test O2 Delivery Device Liter Flow Blood Gas Notified Whom Blood Gas Notified Time Sodium Potassium Chloride Carbon Dioxide Anion Gap BUN Creatinine Estim Creat Clear Calc Est GFR (MDRD) Af Amer Est GFR (MDRD) Non-Af BUN/Creatinine Ratio Glucose Calcium Troponin I < 0.015 B-Natriuretic Peptide 103.5 H 09/12/18 09/12/18 09/12/18 14:20 22:48 23:05 WBC RBC Hgb Hct MCV MCH MCHC RDW RDW Differential Plt Count MPV Immature Gran % (Auto) Neut % (Auto) Lymph % (Auto) Gregg % (Auto) Eos % (Auto) Baso % (Auto) Absolute Neuts (auto) Absolute Lymphs (auto) Total Counted Specimen Type ART Sample Site L Radial pH 7.38 Bicarbonate Actual 20.7 L POC Total CO2 22 Base Excess -4 L O2 Saturation 92 L ABG pCO2 34.8 L ABG pO2 63 L Angelo Test POS O2 Delivery Device Nasal Can Liter Flow 3.0 Blood Gas Notified Whom HOSP Blood Gas Notified Time 2240 Sodium 135 L Potassium 4.8 Chloride 106 Carbon Dioxide 22.0 Anion Gap 7 BUN 38 H Creatinine 1.26 H Estim Creat Clear Calc 31.45 Est GFR (MDRD) Af Amer 54 L Est GFR (MDRD) Non-Af 44 L BUN/Creatinine Ratio 30.2 H Glucose 149 H Calcium 8.7 Troponin I < 0.015 B-Natriuretic Peptide Discharge Diet: Low fat/ Low Cholesterol Discharge Activity: Return to Normal Activity Weight Bearing Status: Weight bearing as tolerated Call your doctor if you observe: Fever of 101 or Higher, Shortness of breath, Swelling in the ankles Home Medications: Medications to take at Discharge Gabapentin [Neurontin] 600 mg PO TIDCM 07/13/14 cycloBENZAPRine HCl [Flexeril] 10 mg PO DAILY 07/13/14 Fluticasone/Vilanterol [Breo Ellipta 200-25 Mcg INH] 1 ea IH DAILY 12/17/16 Paroxetine HCl [Paxil] 40 mg PO DAILY 12/17/16 nitroglycerin 0.4 mg sublingual tablet 0.4 mg SUBLINGUAL Q5M PRN #25 tab 03/25/17 ranolazine ER 500 mg tablet,extended release,12 hr 500 mg PO BID #180 tab 03/25/17 clopidogrel 75 mg tablet 75 mg PO DAILY #90 tab 10/23/17 Cholecalciferol (Vitamin D3) [Vitamin D3] 50,000 unit PO QWEEK 11/23/17 Pantoprazole Sodium [Protonix] 20 mg PO BID 11/23/17 buPROPion SR [Wellbutrin SR (150mg tablets)] 150 mg PO DAILY 11/23/17 tiotropium bromide 2.5 mcg/actuation mist for inhalation 2 puff INHALATION QDAY #1 ea 12/10/17 albuterol sulfate HFA 90 mcg/actuation aerosol inhaler 2 puff INHALATION Q6H PRN #18 g 01/29/18 Aspirin [Aspirin, Baby] 81 mg PO DAILY@0800 03/30/18 Potassium Chloride [K-Dur] 20 meq PO BIDCM #20 tablet 04/05/18 Amlodipine Besylate 5 mg PO DAILY 09/11/18 Apixaban [Eliquis] 5 mg PO BID 09/11/18 Atorvastatin Calcium 80 mg PO DAILY 09/11/18 DiphenhydrAMINE [Benadryl] 25 mg PO TID PRN PRN 09/11/18 Fenofibrate [Tricor] 145 mg PO DAILY 09/11/18 Guaifenesin [Mucinex] 1 tab PO BID 09/11/18 Ipratropium [Atrovent Inhaler] 2 puff INHALATION 4X/DAY 09/11/18 Isosorbide Mononitrate [Imdur] 90 mg PO DAILY 09/11/18 Levalbuterol HCl 1 puff INHALATION 4X/DAY PRN PRN 09/11/18 Losartan Potassium [Cozaar] 1 tab PO DAILY 09/11/18 Metoprolol Tartrate 25 mg PO DAILY 09/11/18 Prednisone 40 mg PO DAILY #10 tab 09/13/18 Following Prescrptions Were Given to Patient: Prednisone 40 mg PO DAILY #10 tab Transmission Status: Received by [facility]/pharmacy #[id number] Primary Care Physician: Darleen Craig MD [Primary Care Provider] - Please follow up with your Primary Care Physician in: one week Patient Instructions: Care for COPD, Diagnosing COPD, Treatments for COPD Disposition: Home Minutes spent on discharge:: 40 Patient Condition:: Stable Medical Necessity - Tobacco Use Smoking Status: Former smoker Tobacco Use: Non-smoker Meaningful Use Info Meaningful Use Diagnoses (Choose all that apply): None applicable Code Visit Inpatient E&M: 93073 Disch Hosp
--- NOTE | 2018-09-13 10:56 | NURSING ---
called [facility] to notify of pt DC and resumption of care. discharge instructions faxed at this time
--- NOTE | 2018-09-15 13:10 | CASEMGMT ---
[facility] PHONE CALL DC DATE: DC Disposition: Home with [facility] Diagnosis on Discharge: COPD exacerbation LACE/STRATA: 02/04 Attempted call to home phone. No answer and no machine picked up. Call to to [facility]- per nurse they have to see pt and have opened her case. [place] MAHAN RN AC
--- NOTE | 2018-09-15 13:49 | CASEMGMT ---
[facility] PHONE CALL DC DATE: DC Disposition: Home with [facility] Diagnosis on Discharge: COPD exacerbation LACE/STRATA: 02/04 Attempted call to home phone. No answer and no machine picked up. Call to to [facility]- per nurse they have opened her case and nurse has been to see pt. [place] MAHAN RN AC
== END 2018-09-13 11:22 | disposition home health service (06) | DRG 140 ==
LOC: ED 23:58 → MS3 09-12 00:37
PROVIDERS: Admitting Provider Internal Medicine; Emergency Provider Emergency Medicine; Family Provider Internal Medicine; PCP Internal Medicine; Referring Provider Internal Medicine; Visit Provider Student in an Organized Health Care Education/Training Program
DX: J44.1 Chronic obstructive pulmonary disease with (acute) exacerbation (principal); I11.0 Hypertensive heart disease with heart failure; I50.32 Chronic diastolic (congestive) heart failure; Z95.5 Presence of coronary angioplasty implant and graft; I25.10 Atherosclerotic heart disease of native coronary artery without angina pectoris; Z86.711 Personal history of pulmonary embolism; Z79.01 Long term (current) use of anticoagulants; Z99.81 Dependence on supplemental oxygen; E78.5 Hyperlipidemia, unspecified; I25.2 Old myocardial infarction; I36.1 Nonrheumatic tricuspid (valve) insufficiency; I34.0 Nonrheumatic mitral (valve) insufficiency; J96.10 Chronic respiratory failure, unspecified whether with hypoxia or hypercapnia; Z87.891 Personal history of nicotine dependence
CPT/HCPCS: 36415; 36600; 71045; 80048; 82803; 83880; 84484; 85025; 93005; 94640; 97110; 97162; 97166; 97802; 99218; 99285; A4216; G0378

== ENCOUNTER 2019-02-19 06:02 | Inpatient (IN) | payer MEDICAID, SELFPAY ==
[2018-09-12 01:12] VITALS: BMI 27.3
[2019-02-19] VITALS (40 sets, daily range): BP systolic 78–136; BP diastolic 51–92; PULSE 87–144; RESP 12–40; TEMP 35.6–36.8; O2SAT 76–100; BMI 27.2; BMI 26.4
--- NOTE | 2019-02-19 06:05 | RAD_ITS ---
STUDY: X-RAY CHEST REASON FOR EXAM: Female, 73 years old. Shortness of breath. TECHNIQUE: Single AP portable view of the chest. COMPARISON: September 11, 2018. FINDINGS: Cardiac monitoring leads are present. The lungs are hyperexpanded. There are mixed interstitial and airspace opacities in both lungs with relative sparing of the lung apices. This is similar to previous study suggesting some of this may be related pulmonary fibrosis. However, there is greater airspace disease now than it was. There are small bilateral pleural effusions. Normal size heart. The hilar areas are prominent suggesting possible lymphadenopathy. There is prominence of the pulmonary hilar arteries without peripheral pulmonary vascular congestion. There is atherosclerotic calcification of the aortic arch with tortuosity. There is demineralization of the osseous structures. Normal visualized ribs, clavicles, and shoulders. There is no demonstrated abnormality of the visualized soft tissue structures of the upper abdomen. RAD/Chest 1 View (Portable) IMPRESSION: Bilateral lower airspace disease superimposed upon moderately severe pulmonary fibrosis. Differential considerations include bronchitis versus pneumonia. Electronically Signed: Marivel Smart MD at 6:39 EST , Service support ,
--- NOTE | 2019-02-19 06:05 | EKG12_ITS ---
Test Reason : SOB Blood Pressure : / mmHG Vent. Rate : 140 BPM Atrial Rate : 119 BPM P-R Int : 000 ms QRS Dur : 100 ms QT Int : 360 ms P-R-T Axes : 000 005 056 degrees QTc Int : 549 ms Supraventricular tachycardia Possible Lateral infarct , age undetermined Abnormal ECG Confirmed by JOÃO IVEY, ANGIE ([id number]), editor in chief newspaper [employer] ([id number]) on 02/23/2019 11:30:08 AM Referred By: SAMANTHA Confirmed By:ANGIE MOYER MD
--- NOTE | 2019-02-19 06:12 | ED.VIS.DYS ---
History of Present Illness Chief Complaint: Shortness of Breath Informant: Patient, EMS Onset: Today Narrative: Patient is a 73-year-old female with history including COPD, chronic hypoxia requiring 4 L of oxygen and diastolic heart failure presenting with worsening shortness of breath. Patient states she woke up and she could not breathe. This was about an hour prior to arrival. EMS was called and she was in the 70s for her O2 saturation. Patient was placed on nonrebreather and O2 saturation came up to 92%. Patient states she has been feeling like she is coming down with a cold for the past few days. No reports of fever of change in cough. History is somewhat limited secondary to patient's respiratory distress Past Medical History - Allergies and Home Meds Allergies/Adverse Reactions: Allergies codeine Allergy (Unknown, Verified 09/12/18 01:10) nausea, hives morphine Allergy (Unknown, Verified 09/12/18 01:10) Nausea naproxen [From Naprosyn] Allergy (Unknown, Verified 09/12/18 01:10) Hives Sulfa (Sulfonamide Antibiotics) Allergy (Unknown, Verified 09/12/18 01:10) Hives albuterol Allergy (Verified 09/11/18 22:12) Rash fentanyl Adverse Reaction (Severe, Verified 09/12/18 01:10) Rash OD on Fentany patch. Very sensitive to does 75mcg patch lithium Adverse Reaction (Unknown, Verified 09/12/18 01:10) anger phenobarbital Adverse Reaction (Unknown, Verified 09/12/18 01:10) anger Iodine and Iodide Containing Produc Adverse Reaction (Verified 09/12/18 01:10) Hives Penicillins [PCN] Adverse Reaction (Verified 09/12/18 01:10) Hives Primary Care Physician: Darleen Craig MD [Primary Care Provider] - Past Medical History: - - COPD, pneumonia, pulmonary embolism (on Eliquis), coronary artery disease, tobacco abuse, diastolic heart failure, hypertension, hyperlipidemia Surgical History: appendectomy, - - cad with stent, this was carpal tunnel surgeries Smoking Status: Former smoker - Family History Maternal Family History: Family History (Last Reviewed 08/01/18 @ 15:50 by Jackson Peter DO) Mother CAD (coronary artery disease) Hypertension Sister CAD (coronary artery disease) Myocardial infarction Family History: Reports: Diabetes, Heart Disease, Stroke Paternal Family History: Family History (Last Reviewed 08/01/18 @ 15:50 by Jackson Peter DO) Mother CAD (coronary artery disease) Hypertension Sister CAD (coronary artery disease) Myocardial infarction Family History: Reports: Diabetes, Stroke Review of Systems General: Reports: Malaise. Denies: Fever Eyes: Denies: Visual changes - bilaterally, Diplopia ENT: Denies: Rhinorrhea, Sore throat Cardiovascular: Denies: Chest pain, Palpitations Respiratory: Reports: Dyspnea, Dyspnea on exertion Gastrointestinal: Denies: Abdominal pain, Nausea, Vomiting, Diarrhea, Melena, Hematochezia Genitourinary: Denies: Dysuria, Hematuria, Frequency Musculoskeletal: Denies: Back pain, Extremity Pain Skin: Denies: Rash, Wounds Neurological: Denies: Headache, Weakness, Numbness Physical Exam Vital Signs/Narrative: Vital Signs Temp Pulse Resp BP Pulse Ox 02/19/19 06:08 96.0 F L 144 H 39 H 115/80 94 02/19/19 06:03 96.0 F L 40 H 76 Inital Vital Signs reviewed: Yes General: Well nourished, Well developed, Acute Distress Head: Normocephalic, Atraumatic Eyes: Perrl, EOMI ENT: No rhinorrhea, TM's clear, Dry mucous membranes Neck: Supple, Nontender, No JVD Cardiovascular: Regular rhythm, No murmurs, Tachycardia Respiratory: Chest nontender, Wheezing, Diminished, Decreased Air Movement, Retractions, - - Patient tripoding in respiratory distress. Negative for: Rales, Rhonchi Abdomen: Soft, Nontender, Nondistended, Normal bowel sounds Back: Nontender, Normal Inspection Extremities: Nontender, No edema Skin: Normal color, No rash Neurological: Alert, Oriented x3, Cranial nerves II-XII grossly intact, Normal Strength, Normal Sensation Psychological: Normal affect, Normal Mood Diagnostic/Tx/Re-eval Chest X-Ray - ED: 1 View, Read by ED Physician, Read by Radiologist, - - Bilateral airspace disease, questionable lower lobar pneumonia Clinical Impression(s) from Imaging Studies Chest X-Ray 02/19/19 06:05 IMPRESSION: Bilateral lower airspace disease superimposed upon moderately severe pulmonary fibrosis. Differential considerations include bronchitis versus pneumonia. Electronically Signed: Marivel Smart MD at 6:39 EST , Service support , Laboratory Data 02/19/19 02/19/19 06:15 06:15 WBC 16.5 H RBC 4.91 Hgb 13.2 Hct 43.5 MCV 88.6 MCH 26.9 L MCHC 30.3 L RDW Std Deviation 46.6 H RDW Coeff of Abhinav 14.6 Plt Count 468 H MPV 9.4 Immature Gran % (Auto) 0.700 Neut % (Auto) 68.6 Lymph % (Auto) 21.0 Daniels % (Auto) 4.0 Eos % (Auto) 5.1 H Baso % (Auto) 0.6 Absolute Neuts (auto) 11.3 H Absolute Lymphs (auto) 3.47 Nucleated RBC % 0 Sodium 142 Potassium 3.8 Chloride 108 H Carbon Dioxide 26.0 Anion Gap 8 BUN 17 Creatinine 1.33 H Estim Creat Clear Calc 29.80 Est GFR (MDRD) Af Amer 50 L Est GFR (MDRD) Non-Af 42 L BUN/Creatinine Ratio 12.8 Glucose 234 H Calcium 9.2 Troponin I < 0.015 - Rhythm Strip Rhythm Strip: Sinus Tach Rate: 140 Ectopy: None - EKG Initial EKG Interpretation: Sinus Tachycardia, - - Sinus tachycardia rate of 140Normal intervalsNormal axisNormal ST segmentsCompared to prior EKG patient has a rate increase but no other changes Treatment - Dyspnea: Oxygen, Antibiotics Repeat Evaluation: Improved - Medical Decision Making She arrives and is in respiratory distress. She is immediately placed on noninvasive ventilation and started on aerosols. As patient claimed that she has had allergy to albuterol (however she is on levalbuterol at home and per the chart has received albuterol in the past) she is given a DuoNeb and an Atrovent. She does have improvement of her symptoms on BiPAP. Patient does remain tachycardic. She is given a liter of IV fluids as well as IV Solu-Medrol. Chest x-ray shows pulmonary fibrosis pattern that is concerning for an acute infiltrate as well. She started on Rocephin and azithromycin for this. Patient will be admitted to the ICU for close respiratory monitoring. Patient and significant other are agreeable with this. ED Disposition - Plan for ED Patient: Disposition: [facility] Care [facility] [place] Diagnosis: COPD with acute exacerbation, Acute respiratory failure with hypoxia and hypercapnia, Pneumonia, Sepsis Referrals: Darleen Craig MD [Primary Care Provider] -
[2019-02-19] MEDS: Ipratropium 0.5 MG/2.5 ML SOLUTION INHALATION ×5 (06:22→23:50)
[2019-02-19] MEDS: MethylPREDNISolone 125 MG/2 ML Vial IV (06:22)
[2019-02-19] MEDS: Ipratropium/Albuterol Sulfate 3 ML AMPUL.NEB INHALATION (06:22)
[2019-02-19] MEDS: 0.9% Normal Saline 1,000 ML 999 ML IV ×2 (06:23→08:29)
[2019-02-19 06:27] LABS: Absolute Lymphocyte Count 3.47 X10^3/uL (0.83-4.51); Absolute Neutrophil Count 11.3 X10^3/uL (2.0-7.7); Basophil% 0.6 % (0-1); Eosinophil# 0.85 X10^3/uL; Eosinophils% 5.1 % (0-5); Hematocrit 43.5 % (37-47); Hemoglobin 13.2 g/dL (12.0-15.0); Lymphocyte # 3.47 X10^3/ul (4.0); Mean Corp Hgb Conc 30.3 g/dL (32-36); Mean Corpuscular Hgb 26.9 pg (27.0-32.0); Mean Corpuscular Volume 88.6 fL (81-99); Mean Platelet Vol. 9.4 fl (6.2-12.0); Monocyte# 0.66 X10^3/uL; NRBC Flagged by Analyzer 0 % (0-5); Neutrophil # 11.31 X10^3/uL (2.7-7.7); Neutrophil % 68.6 % (47-70); Platelet Count 468 K/mm3 (150-450); RBC Distribution Width CV 14.6 % (11.6-14.6); RBC Distribution Width SD 46.6 fl (35.1-43.9); Red Blood Count 4.91 M/mm3 (4.2-5.4); White Blood Count 16.5 K/mm3 (4.4-11.0)
--- NOTE | 2019-02-19 06:37 | ED.RN ---
pr provided medication list from april of 2018. unsure how accurate this list is. pt unable to go through list d/t bipap.
[2019-02-19 06:46] LABS: Anion Gap 8 (5-15); BUN 17 mg/dL (7-18); BUN/Creat Ratio 12.8 RATIO (10-20); Calcium,Total 9.2 mg/dL (8.5-10.1); Chloride 108 mmol/L (98-107); Creatinine, Serum 1.33 mg/dL (0.55-1.02); EST Glomerular Filtration Rate 42 mL/min (>60); Est Glom Filt Rate - Afr Amer 50 mL/min (>60); Glucose 234 mg/dL (74-106); Potassium 3.8 mmol/L (3.5-5.1); Sodium Level 142 mmol/L (136-145)
--- NOTE | 2019-02-19 07:00 | ED.RN ---
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
[2019-02-19] MEDS: Ceftriaxone 1 GM/50 ML BAG IV (07:06)
[2019-02-19 07:11] LABS: Lactic Acid 2.7 mmol/L (0.4-1.9)
--- NOTE | 2019-02-19 07:21 | HP.PCM_ITS ---
History of Present Illness Date of Admission: 02/19/19 Chief Complaint: shortness of breath The patient is a 73 year old F with an extensive PMH of chronic respiratory failure due to COPD. [facility] with a complaint of shortness of breath which had been going on for a few days but worsened acutely on the day of presentation. Patient says she woke up and she could not breathe on the day of presentation though she had been short of breath 4 days prior to admission. She had a cough which was dry and admitted to pleuritic chest pain and abdominal pain which was due to the incidence on coughing. She denied any fever or chills but admitted to wheezing. She felt like she had been coming down with a cold over the past few days and says her grandchildren had had similar symptoms. Review of symptoms otherwise negative. She was usually on 45 L at home but when the EMS arrived, she was saturating in the 70s. Admission in the ED, she was placed on a nonrebreather mask with 15 L of oxygen saturation came up to 92%. She admitted to using a Sheree-Sheree is much more frequently at home. On admission, respiratory it was 26 and pulse rate was 103. Vitals were otherwise stable. She was saturating at 98% on 15 L with nonrebreather mask. CBC showed white cell count of 16.5 and chemistry showed creatinine of 1.33 initial lactic acid of 2.7. Chest x-ray showed bilateral lower airspace disease superimposed on moderately severe pulmonary fibrosis with differentials including bronchitis versus pneumonia. EKG showed no acute ST changes. Blood gas done showed pH of 7.32 with PO2 of 79 and PCO2 of 24. This was done while she was on BiPAP. She has been admitted to be managed on acute on chronic hypoxic respiratory failure due to COPD exacerbation. [] Past Medical History Past Medical History (Chronic Problems): Chronic Problems (Last Reviewed 08/01/18 @ 15:50 by Jackson Peter DO) COPD (chronic obstructive pulmonary disease) (Chronic) COPD with acute exacerbation (Chronic) Presence of stent in coronary artery (Chronic) PTCA/SUSAN to ostium of LMT 10/01/2014 @[facility]; PTCA/SUSAN of the mid/distal RCA 11/11/17 CAD (coronary artery disease) (Chronic) Successful PTCA/SUSAN of the of mid/distal RCA with a 2.25 x 38 Promus Synergy, post dilated proximally with a 3.0 x 12 NC balloon at 8 safia (2.5mm); 75%-->0%, no dissection. Successful PTCA/SUSAN of the proximal RCA with a 2.5 x 20 Promus Synergy, post dilated with a 3.0 x 12 at 14 safia; 75%-->0%, no dissection. Tobacco abuse (Chronic) Congestive heart failure (Chronic) Nonrheumatic tricuspid (valve) insufficiency (Chronic) Nonrheumatic mitral valve insufficiency (Chronic) Nicotine dependence, cigarettes, uncomplicated (Chronic) Hypertension (Chronic) Hyperlipidemia (Chronic) Atherosclerosis of [place] coronary artery of [place] heart without angina pectoris (Chronic) PTCA/SUSAN to ostium of LMT 10/01/2014 @[facility]; PTCA/SUSAN to mid/distal RCA and proximal RCA in November 2017 at [facility]; Peripheral vascular disease (Chronic) SOB (shortness of breath) (Chronic) Medical History: Medical History (Last Reviewed 08/01/18 @ 15:50 by Jackson Peter DO) Presence of stent in coronary artery (Chronic) Z95.5 PTCA/SUSAN to ostium of LMT 10/01/2014 @[facility]; PTCA/SUSAN of the mid/distal RCA 11/11/17 Acute respiratory failure with hypoxia and hypercapnia (Acute) J96.01, J96.02 COPD with acute exacerbation (Acute) J44.1 Gram-negative pneumonia (Acute) J15.6 Acute hypercapnic respiratory failure (Acute) J96.02 NSTEMI (non-ST elevated myocardial infarction) (Acute) I21.4 COPD exacerbation (Acute) J44.1 CAD (coronary artery disease) (Chronic) I25.10 Successful PTCA/SUSAN of the of mid/distal RCA with a 2.25 x 38 Promus Synergy, post dilated proximally with a 3.0 x 12 NC balloon at 8 safia (2.5mm); 75%-->0%, no dissection. Successful PTCA/SUSAN of the proximal RCA with a 2.5 x 20 Promus Synergy, post dilated with a 3.0 x 12 at 14 safia; 75%-->0%, no dissection. Tobacco abuse (Chronic) Z72.0 Congestive heart failure (Chronic) I50.9 Nonrheumatic tricuspid (valve) insufficiency (Chronic) I36.1 Nonrheumatic mitral valve insufficiency (Chronic) I34.0 Nicotine dependence, cigarettes, uncomplicated (Chronic) F17.210 Hypertension (Chronic) I10 Hyperlipidemia (Chronic) E78.5 Atherosclerosis of [place] coronary artery of [place] heart without angina pectoris (Chronic) I25.10 PTCA/SUSAN to ostium of LMT 10/01/2014 @[facility]; PTCA/SUSAN to mid/distal RCA and proximal RCA in November 2017 at [facility]; Peripheral vascular disease (Chronic) I73.9 SOB (shortness of breath) (Chronic) R06.02 Anemia D64.9 COPD (chronic obstructive pulmonary disease) J44.9 Diabetes mellitus E11.9 Fibromyalgia M79.7 GERD (gastroesophageal reflux disease) K21.9 Hyperlipidemia E78.5 MARISABEL (obstructive sleep apnea) G47.33 Allergies codeine Allergy (Unknown, Verified 09/12/18 01:10) nausea, hives morphine Allergy (Unknown, Verified 09/12/18 01:10) Nausea naproxen [From Naprosyn] Allergy (Unknown, Verified 09/12/18 01:10) Hives Sulfa (Sulfonamide Antibiotics) Allergy (Unknown, Verified 09/12/18 01:10) Hives albuterol Allergy (Verified 09/11/18 22:12) Rash fentanyl Adverse Reaction (Severe, Verified 09/12/18 01:10) Rash OD on Fentany patch. Very sensitive to does 75mcg patch lithium Adverse Reaction (Unknown, Verified 09/12/18 01:10) anger phenobarbital Adverse Reaction (Unknown, Verified 09/12/18 01:10) anger Iodine and Iodide Containing Produc Adverse Reaction (Verified 09/12/18 01:10) Hives Penicillins [PCN] Adverse Reaction (Verified 09/12/18 01:10) Hives Home Medications: Ambulatory Orders Medication Instructions Recorded Gabapentin [Neurontin] 600 mg PO TIDCM 07/13/14 cycloBENZAPRine HCl [Flexeril] 10 mg PO DAILY 07/13/14 Fluticasone/Vilanterol [Breo 1 ea IH DAILY 12/17/16 Ellipta 200-25 Mcg INH] Paroxetine HCl [Paxil] 40 mg PO DAILY 12/17/16 nitroglycerin 0.4 mg sublingual 0.4 mg SUBLINGUAL Q5M PRN #25 tab 03/25/17 tablet ranolazine 500 mg tablet,extended 500 mg PO BID #180 tab 03/25/17 release,12 hr clopidogrel 75 mg tablet 75 mg PO DAILY #90 tab 10/23/17 Cholecalciferol (Vitamin D3) 50,000 unit PO QWEEK 11/23/17 [Vitamin D3] Pantoprazole Sodium [Protonix] 20 mg PO BID 11/23/17 buPROPion SR [Wellbutrin SR (150mg 150 mg PO DAILY 11/23/17 tablets)] tiotropium bromide 2.5 2 puff INHALATION QDAY #1 ea 12/10/17 mcg/actuation mist for inhalation albuterol sulfate 90 mcg/actuation 2 puff INHALATION Q6H PRN #18 g 01/29/18 aerosol inhaler Aspirin [Aspirin, Baby] 81 mg PO DAILY@0800 03/30/18 Potassium Chloride [K-Dur] 20 meq PO BIDCM #20 tablet 04/05/18 Amlodipine Besylate 5 mg PO DAILY 09/11/18 Apixaban [Eliquis] 5 mg PO BID 09/11/18 Atorvastatin Calcium 80 mg PO DAILY 09/11/18 DiphenhydrAMINE [Benadryl] 25 mg PO Q6H PRN PRN 09/11/18 Fenofibrate [Tricor] 145 mg PO DAILY 09/11/18 Guaifenesin [Mucinex] 1 tab PO BID 09/11/18 Ipratropium [Atrovent Inhaler] 2 puff INHALATION 4X/DAY 09/11/18 Levalbuterol HCl 1 puff INHALATION 4X/DAY PRN PRN 09/11/18 Metoprolol Tartrate 25 mg PO BID 09/11/18 Prednisone 40 mg PO DAILY #10 tab 09/13/18 losartan 50 mg tablet 50 mg PO DAILY #90 tab 11/12/18 Isosorbide Mononitrate [Isosorbide 90 mg PO DAILY 02/19/19 Mononitrate ER] Surgical History: Surgical History (Last Reviewed 08/01/18 @ 15:50 by Jackson Peter DO) H/O tubal ligation Z98.51 History of left heart catheterization Z98.890 Hx of appendectomy Z98.890, Z90.49 S/P femoral-femoral bypass surgery Z95.828 with gorortex graft in 2002; removal of infected graft with reconstructions of right superficial artery in 2003 Surgical History: appendectomy, - - cad with stent, this was carpal tunnel s urgeries Psychiatric History: No pertinent psych hx ACCOUNTS RECEIVABLE REPRESENTATIVE History: No pertinent ACCOUNTS RECEIVABLE REPRESENTATIVE history Lives: With Family Smoking Status: Former smoker Tobacco Use: Cigarettes Alcohol: Occasional Drugs: None - *Family History Maternal Family History: Family History (Last Reviewed 08/01/18 @ 15:50 by Jackson Peter DO) Mother CAD (coronary artery disease) Hypertension Sister CAD (coronary artery disease) Myocardial infarction History Items: Diabetes, Heart Disease, Stroke Paternal Family History: Family History (Last Reviewed 08/01/18 @ 15:50 by Jackson Peter DO) Mother CAD (coronary artery disease) Hypertension Sister CAD (coronary artery disease) Myocardial infarction History Items: Diabetes, Stroke Review of Systems Constitutional: Reports: Malaise, Weakness, Fatigue. Denies: Anorexia, Chills, Fever Eyes: Denies: Blurred vision HEENT: Denies: Head Aches, Sinus Congestion, Sinus Drainage Cardiovascular: Denies: Chest Pain, Palpitations Respiratory: Reports: Cough, Pleuritic Pain, Shortness of Breath, Shortness of breath at rest, Shortness of breath upon exertion, Wheezing. Denies: Sputum production Gastrointestinal: Denies: Abdominal Pain, Diarrhea, Dyspepsia, Hematemesis, Hematochezia, Nausea, Vomiting Genitourinary: Denies: Dysuria Musculoskeletal: Denies: Joint Pain, Joint Tenderness Skin: Denies: Rash, Wounds Neurological: Denies: Numbness, Tingling, Focal weakness Psychiatric: Denies: Anxiety, Depression, Homicidal Ideations, Suicidal Jeff ations Hematologic/ Lymphatic: Denies: Easy Bruising, Easy Bleeding VTE Information - Inpt Only VTE Present on Admission: No VTE Pharm Prophylaxis ordered?: Yes Patient Problems: Active and Suspected Problems (Last Reviewed 08/01/18 @ 15:50 by Jackson Peter DO) Acute respiratory failure with hypoxia and hypercapnia (Acute) Pneumonia (Acute) Sepsis (Acute) - Physical Exam Vitals/I&O's: Vital Signs Temp Pulse Resp BP Pulse Ox 96.0 F L 134 H 35 H 115/80 95 02/19/19 06:08 02/19/19 06:10 02/19/19 06:10 02/19/19 06:08 02/19/19 06:10 Oxygen Flow Rate (L/min) 15 Oxygen Delivery Method Bi-pap Weight: 148 lb 12.992 oz Body Mass Index (BMI) 27.2 General: Alert, Oriented x3, Cooperative, No apparent distress HEENT: Atraumatic, PERRLA, EOMI, Normocephalic Oral: Dry Mucosa Neck: Supple, No JVD, Negative Carotid Bruits Lungs: - - very tachypneic, unable to complete sentences, use of accessory muscles of respiration, on 15L of oxygen by nonrebreather mask, decreased breath sounds in all lung meza, lungs sound very tight, diffuse wheezing. Cardiovascular: Regular rate, Regular Rhythm, Normal S1, Normal S2, No murmurs Abdomen: Bowel Sounds Present, Soft, Non Tender Extremities: No clubbing, No cyanosis, No edema, Capillary Refill Less than 3 Seconds Skin: No rashes, No breakdown Musculoskeletal: No Tenderness to Palpation of Joints or Extremities Lymphatic: No Cervical, Supraclavicular, or Inguinal Adenopathy Neurological: Cranial nerves II-XII grossly intact, Neuro grossly intact, Motor Exam 5/5 strength throughout Psych/Mental Status: Normal Affect, Appropriate, Alert and oriented to time, place, person, mood and affect Microbiology Past 72 Hours 02/19/19 06:30 Mucosa - Nasopharyngeal Influenza Types A,B Direct FA ([facility]) - Final Laboratory Results 02/19/19 06:15: WBC 16.5 H, RBC 4.91, Hgb 13.2, Hct 43.5, MCV 88.6, MCH 26.9 L, MCHC 30.3 L, RDW Std Deviation 46.6 H, RDW Coeff of Abhinav 14.6, Plt Count 468 H, MPV 9.4, Immature Gran % (Auto) 0.700, Neut % (Auto) 68.6, Lymph % (Auto) 21.0, [place] % (Auto) 4.0, Eos % (Auto) 5.1 H, Baso % (Auto) 0.6, Absolute Neuts (auto) 11.3 H, Absolute Lymphs (auto) 3.47, Nucleated RBC % 0 02/19/19 06:15: Sodium 142, Potassium 3.8, Chloride 108 H, Carbon Dioxide 26.0, Anion Gap 8, BUN 17, Creatinine 1.33 H, Estim Creat Clear Calc 29.80, Est GFR (MDRD) Af Amer 50 L, Est GFR (MDRD) Non-Af 42 L, BUN/Creatinine Ratio 12.8, Glucose 234 H, Calcium 9.2, Troponin I < 0.015 02/19/19 06:15: Lactic Acid 2.7 H* Diagnostic Data Chest X-Ray 02/19/19 06:05 IMPRESSION: Bilateral lower airspace disease superimposed upon moderately severe pulmonary fibrosis. Differential considerations include bronchitis versus pneumonia. Electronically Signed: Marivel Smart MD at 6:39 EST , Service support , Current Medications Azithromycin 500 mg/ Dextrose 255 mls @ 250 mls/hr IV X1 ONE Stop: 02/19/19 07:57 Last Admin: 02/19/19 07:13 Dose: 250 mls/hr Documented by: Ceftriaxone Sodium (Rocephin) 1 gm in 50 mls @ 100 mls/hr IV X1 ONE Stop: 02/19/19 07:25 Last Admin: 02/19/19 07:06 Dose: 100 mls/hr Documented by: Assessment/Plan All Active Problems (Last Reviewed 08/01/18 @ 15:50 by Jackson Peter DO) Lower respiratory infection (Acute) Acute respiratory failure with hypoxia and hypercapnia (Acute) Pneumonia (Acute) Sepsis (Acute) Pulmonary embolism (Acute) Cholelithiasis NOS (Acute) Acute respiratory failure with hypoxia and hypercapnia (Acute) COPD with acute exacerbation (Acute) Gram-negative pneumonia (Acute) Acute hypercapnic respiratory failure (Acute) NSTEMI (non-ST elevated myocardial infarction) (Acute) COPD exacerbation (Acute) 73 y/o admitted with a complaint of worsening shortness of breath 1. Acute on chronic hypoxic respiratory failure due to COPD exacerbation and com munity acquired pneumonia * admit to ICU * saturating in the 70s when EMS arrived. Was on 15 L of oxygen by nonrebreather mask. Was put on BiPAP on admission to ICU. * ABGs done showed pH of 7.32 with PO2 of 79 and oxygen saturation of 94. This was done while she was on BiPAP. * Check respiratory panel. Sputum culture when she is able to expectorate. Urine for strep and Legionella antigens. * Start on IV Levaquin. * Wheezing treatments with atrovent (allergic to albuterol), and IV Solu-Medrol 40 mg every 8 * Titrate oxygen to maintain saturation above 90%. * Consult experience specialist. * 2. Severe sepsis due to community acquired pneumonia * SIRS criteria is 3/4 (tachypnea, tachycardia and leucocytosis) * tachypnea and tachycardia could be explained by COPD exacerbation * lactic acid was 2.7, went up to 3; will repeat * hydrate with IVF per sepsis protocol * on IV levaquin for pneumonia; continue, pending culture results * 3. COPD exacerbation: as under 1. 4. CAD s/p stents: on aspirin, statin and plavix. on imdur 5. Fibromyalgia: stable. Continue home pain meds 6. Hypertension adn hyperlipidemia: on metoprolol and losartan. On statin 7. History of DVT: on eliquis 7. Nicotine dependence: counseled to quit. On nicotine patch 21mg daily. DVT prophylaxis; on eliquis * COde status: full code * Patient counseled extensively about different types of CODE STATUS including full code, DNR CCA and DNR CCA. Patient elects to be full code. Total [id number] time 17 minutes. Code Visit Inpatient E&M: 50058 Init Hosp L3 Procedures: 26122 Advncd Care Plan 30 Min
--- NOTE | 2019-02-19 08:00 | CON.PCM_ITS ---
Reason for Consult Date of Consultation: 02/19/19 Reason for Consultation: Acute on chronic hypoxemic respiratory failure History of Present Illness: The patient is a 73-year-old female, with a history as outlined below, who presented to the emergency department on the morning of February 19 with complaints of shortness of breath, chest tightness and wheezing. The patient has an extensive smoking history, but reports that she quit in 03/2018. However, she continues to wear nicotine patches periodically. She denies the presence of a cough. She does report that her grandson was sick recently. The patient has a known history of severe obstructive lung disease with an FEV1 last noted to be 44% of predicted in February 2018. She also has a baseline 3 L/min supplemental oxygen requirement with exertion, based upon pulmonary exercise test completed in March 2018. The patient was last admitted to the hospital in September 2018, during which time, she was treated for a COPD exacerbation. In addition to the patient's known lung issues, she is currently followed in the cardiology clinic due to a history of coronary artery disease status post left main stenting in 2014 and PTCA/SUSAN to mid/distal RCA and proximal RCA in November 2017, chronic systolic congestive heart failure, hypertension, and hyperlipidemia. On presentation to the emergency department, the patient had a temperature documented to be 96 ?F. She was tachycardic, tachypneic and hypoxemic on room air. Initial laboratory evaluation revealed an elevated white blood cell count to 16,000. Platelet count was elevated to 468,000. There was 5% peripheral eosinophilia. Chemistry profile was notable for a creatinine of 1.33. Lactate was elevated to 2.7. Initial troponin was negative. Plain film chest x-ray revealed hyperinflated lung meza with bibasilar predominant airspace disease and prominent interstitial changes, mostly within the lung bases. There was blunting of the right costophrenic angle as well. A prior chest CT completed in March 2018 did reveal evidence of what appeared to be an evolving interstitial lung process involving the lower lobes bilaterally. The patient was placed on BiPAP therapy in the emergency department and was given aerosol treatments, IV fluids, antibiotics and steroids. She was then transferred to the medical intensive care unit for further management. I spoke with the patient following her arrival to the ICU, at which time, she did report that she would want CPR and intubation, if necessary. Code status was updated to reflect the patient's wishes. Past Medical History Past Medical History (Chronic Problems): Chronic Problems (Last Reviewed 08/01/18 @ 15:50 by Jackson Peter DO) COPD (chronic obstructive pulmonary disease) (Chronic) COPD with acute exacerbation (Chronic) Presence of stent in coronary artery (Chronic) PTCA/SUSAN to ostium of LMT 10/01/2014 @[facility]; PTCA/SUSAN of the mid/distal RCA 11/11/17 CAD (coronary artery disease) (Chronic) Successful PTCA/SUSAN of the of mid/distal RCA with a 2.25 x 38 Promus Synergy, post dilated proximally with a 3.0 x 12 NC balloon at 8 safia (2.5mm); 75%-->0%, no dissection. Successful PTCA/SUSAN of the proximal RCA with a 2.5 x 20 Promus Synergy, post dilated with a 3.0 x 12 at 14 safia; 75%-->0%, no dissection. Tobacco abuse (Chronic) Congestive heart failure (Chronic) Nonrheumatic tricuspid (valve) insufficiency (Chronic) Nonrheumatic mitral valve insufficiency (Chronic) Nicotine dependence, cigarettes, uncomplicated (Chronic) Hypertension (Chronic) Hyperlipidemia (Chronic) Atherosclerosis of [place] coronary artery of [place] heart without angina pectoris (Chronic) PTCA/SUSAN to ostium of LMT 10/01/2014 @[facility]; PTCA/SUSAN to mid/distal RCA and proximal RCA in November 2017 at [facility]; Peripheral vascular disease (Chronic) SOB (shortness of breath) (Chronic) Medical History: Medical History (Last Reviewed 08/01/18 @ 15:50 by Jackson Peter DO) Presence of stent in coronary artery (Chronic) Z95.5 PTCA/SUSAN to ostium of LMT 10/01/2014 @[facility]; PTCA/SUSAN of the mid/distal RCA 11/11/17 Acute respiratory failure with hypoxia and hypercapnia (Acute) J96.01, J96.02 COPD with acute exacerbation (Acute) J44.1 Gram-negative pneumonia (Acute) J15.6 Acute hypercapnic respiratory failure (Acute) J96.02 NSTEMI (non-ST elevated myocardial infarction) (Acute) I21.4 COPD exacerbation (Acute) J44.1 CAD (coronary artery disease) (Chronic) I25.10 Successful PTCA/SUSAN of the of mid/distal RCA with a 2.25 x 38 Promus Synergy, post dilated proximally with a 3.0 x 12 NC balloon at 8 safia (2.5mm); 75%-->0%, no dissection. Successful PTCA/SUSAN of the proximal RCA with a 2.5 x 20 Promus Synergy, post dilated with a 3.0 x 12 at 14 safia; 75%-->0%, no dissection. Tobacco abuse (Chronic) Z72.0 Congestive heart failure (Chronic) I50.9 Nonrheumatic tricuspid (valve) insufficiency (Chronic) I36.1 Nonrheumatic mitral valve insufficiency (Chronic) I34.0 Nicotine dependence, cigarettes, uncomplicated (Chronic) F17.210 Hypertension (Chronic) I10 Hyperlipidemia (Chronic) E78.5 Atherosclerosis of [place] coronary artery of [place] heart without angina pectoris (Chronic) I25.10 PTCA/SUSAN to ostium of LMT 10/01/2014 @[facility]; PTCA/SUSAN to mid/distal RCA and proximal RCA in November 2017 at [facility]; Peripheral vascular disease (Chronic) I73.9 SOB (shortness of breath) (Chronic) R06.02 Anemia D64.9 COPD (chronic obstructive pulmonary disease) J44.9 Diabetes mellitus E11.9 Fibromyalgia M79.7 GERD (gastroesophageal reflux disease) K21.9 Hyperlipidemia E78.5 MARISABEL (obstructive sleep apnea) G47.33 Allergies codeine Allergy (Unknown, Verified 09/12/18 01:10) nausea, hives morphine Allergy (Unknown, Verified 09/12/18 01:10) Nausea naproxen [From Naprosyn] Allergy (Unknown, Verified 09/12/18 01:10) Hives Sulfa (Sulfonamide Antibiotics) Allergy (Unknown, Verified 09/12/18 01:10) Hives albuterol Allergy (Verified 09/11/18 22:12) Rash fentanyl Adverse Reaction (Severe, Verified 09/12/18 01:10) Rash OD on Fentany patch. Very sensitive to does 75mcg patch lithium Adverse Reaction (Unknown, Verified 09/12/18 01:10) anger phenobarbital Adverse Reaction (Unknown, Verified 09/12/18 01:10) anger Iodine and Iodide Containing Produc Adverse Reaction (Verified 09/12/18 01:10) Hives Penicillins [PCN] Adverse Reaction (Verified 09/12/18 01:10) Hives Home Medications: Ambulatory Orders Medication Instructions Recorded Gabapentin [Neurontin] 600 mg PO TIDCM 07/13/14 cycloBENZAPRine HCl [Flexeril] 10 mg PO DAILY 07/13/14 Fluticasone/Vilanterol [Breo 1 ea IH DAILY 12/17/16 Ellipta 200-25 Mcg INH] Paroxetine HCl [Paxil] 40 mg PO DAILY 12/17/16 nitroglycerin 0.4 mg sublingual 0.4 mg SUBLINGUAL Q5M PRN #25 tab 03/25/17 tablet ranolazine 500 mg tablet,extended 500 mg PO BID #180 tab 03/25/17 release,12 hr clopidogrel 75 mg tablet 75 mg PO DAILY #90 tab 10/23/17 Cholecalciferol (Vitamin D3) 50,000 unit PO QWEEK 11/23/17 [Vitamin D3] Pantoprazole Sodium [Protonix] 20 mg PO BID 11/23/17 buPROPion SR [Wellbutrin SR (150mg 150 mg PO DAILY 11/23/17 tablets)] tiotropium bromide 2.5 2 puff INHALATION QDAY #1 ea 12/10/17 mcg/actuation mist for inhalation albuterol sulfate 90 mcg/actuation 2 puff INHALATION Q6H PRN #18 g 01/29/18 aerosol inhaler Aspirin [Aspirin, Baby] 81 mg PO DAILY@0800 03/30/18 Potassium Chloride [K-Dur] 20 meq PO BIDCM #20 tablet 04/05/18 Amlodipine Besylate 5 mg PO DAILY 09/11/18 Apixaban [Eliquis] 5 mg PO BID 09/11/18 Atorvastatin Calcium 80 mg PO DAILY 09/11/18 DiphenhydrAMINE [Benadryl] 25 mg PO Q6H PRN PRN 09/11/18 Fenofibrate [Tricor] 145 mg PO DAILY 09/11/18 Guaifenesin [Mucinex] 1 tab PO BID 09/11/18 Ipratropium [Atrovent Inhaler] 2 puff INHALATION 4X/DAY 09/11/18 Levalbuterol HCl 1 puff INHALATION 4X/DAY PRN PRN 09/11/18 Metoprolol Tartrate 25 mg PO BID 09/11/18 Prednisone 40 mg PO DAILY #10 tab 09/13/18 losartan 50 mg tablet 50 mg PO DAILY #90 tab 11/12/18 Isosorbide Mononitrate [Isosorbide 90 mg PO DAILY 02/19/19 Mononitrate ER] Surgical History: Surgical History (Last Reviewed 08/01/18 @ 15:50 by Jackson Peter DO) H/O tubal ligation Z98.51 History of left heart catheterization Z98.890 Hx of appendectomy Z98.890, Z90.49 S/P femoral-femoral bypass surgery Z95.828 with gorortex graft in 2001; removal of infected graft with reconstructions of right superficial artery in 2002 Surgical History: appendectomy, - - cad with stent, this was carpal tunnel surgeries Psychiatric History: No pertinent psych hx COLORED LIQUID PLASTIC APPLIER History: No pertinent COLORED LIQUID PLASTIC APPLIER history Smoking Status: Former smoker - *Family History Maternal Family History: Family History (Last Reviewed 08/01/18 @ 15:50 by Jackson Peter DO) Mother CAD (coronary artery disease) Hypertension Sister CAD (coronary artery disease) Myocardial infarction History Items: Diabetes, Heart Disease, Stroke Paternal Family History: Family History (Last Reviewed 08/01/18 @ 15:50 by Jackson Peter DO) Mother CAD (coronary artery disease) Hypertension Sister CAD (coronary artery disease) Myocardial infarction History Items: Diabetes, Stroke Review of Systems Constitutional: Reports: Fatigue Eyes: Denies: Blurred vision, Double vision HEENT: Denies: Head Aches, Sinus Congestion, Sinus Drainage Cardiovascular: Reports: Chest Tightness Respiratory: Reports: Shortness of Breath, Wheezing. Denies: Cough Gastrointestinal: Denies: Abdominal Pain, Nausea, Vomiting Genitourinary: Denies: Dysuria Musculoskeletal: Denies: Joint Pain, Joint Tenderness Skin: Denies: Rash, Wounds Neurological: Denies: Numbness, Tingling, Focal weakness Psychiatric: Denies: Anxiety, Depression, Homicidal Ideations, Suicidal Ideations Hematologic/ Lymphatic: Denies: Easy Bruising, Easy Bleeding Patient Problems: Active and Suspected Problems (Last Reviewed 08/01/18 @ 15:50 by Jackson Peter DO) Acute respiratory failure with hypoxia and hypercapnia (Acute) Pneumonia (Acute) Sepsis (Acute) Objective: The patient's most recent lab work, culture data and imaging studies have all been personally reviewed. - Physical Exam Vitals/I&O's: Vital Signs Temp Pulse Resp BP Pulse Ox 97.2 F L 117 H 30 H 97/64 97 02/19/19 07:08 02/19/19 07:30 02/19/19 07:30 02/19/19 07:30 02/19/19 07:30 Oxygen Flow Rate (L/min) 15 Oxygen Delivery Method Bi-pap Weight: 148 lb 12.992 oz Body Mass Index (BMI) 27.2 Intake and Output for Last 24 Hours 02/17/19 02/18/19 02/19/19 23:59 23:59 23:59 Intake Total 1050 / 1050 Balance 1050 / 1050 General: Alert, Cooperative, - - Ill in appearance with BIPAP in place. HEENT: Atraumatic, PERRLA, Normocephalic Oral: Dry Mucosa Neck: Supple, No Nodes, Trachea Midline Lungs: Short of Breath - Globally diminshed air movement B/L with expiratory weezes present and faint basilar rales. + Prolonged expiratory phase and increased AP diameter., Tachypneic Cardiovascular: Normal S1, Normal S2, No murmurs, Tachycardic Abdomen: Bowel Sounds Present, Soft, Non Tender Extremities: No cyanosis, No edema, Clubbing Skin: No breakdown Musculoskeletal: No Tenderness to Palpation of Joints or Extremities Lymphatic: No Cervical, Supraclavicular, or Inguinal Adenopathy Neurological: Neuro grossly intact Psych/Mental Status: Normal Affect, Appropriate Labs (Last 48 Hours) 02/19/19 02/19/19 02/19/19 06:15 06:15 06:15 WBC 16.5 H RBC 4.91 Hgb 13.2 Hct 43.5 MCV 88.6 MCH 26.9 L MCHC 30.3 L RDW Std Deviation 46.6 H RDW Coeff of Abhinav 14.6 Plt Count 468 H MPV 9.4 Immature Gran % (Auto) 0.700 Neut % (Auto) 68.6 Lymph % (Auto) 21.0 Coffee % (Auto) 4.0 Eos % (Auto) 5.1 H Baso % (Auto) 0.6 Absolute Neuts (auto) 11.3 H Absolute Lymphs (auto) 3.47 Nucleated RBC % 0 Sodium 142 Potassium 3.8 Chloride 108 H Carbon Dioxide 26.0 Anion Gap 8 BUN 17 Creatinine 1.33 H Estim Creat Clear Calc 29.80 Est GFR (MDRD) Af Amer 50 L Est GFR (MDRD) Non-Af 42 L BUN/Creatinine Ratio 12.8 Glucose 234 H Lactic Acid 2.7 H* Calcium 9.2 Troponin I < 0.015 Microbiology 02/19/19 06:30 Mucosa - Nasopharyngeal Influenza Types A,B Direct FA ([facility]) - Final Clinical Impression(s) from Imaging Studies Chest X-Ray 02/19/19 06:05 IMPRESSION: Bilateral lower airspace disease superimposed upon moderately severe pulmonary fibrosis. Differential considerations include bronchitis versus pneumonia. Electronically Signed: Marivel Smart MD at 6:39 EST , Service support , Assessment/Plan Active and Suspected Problems (Last Reviewed 08/01/18 @ 15:50 by Jackson Peter DO) Acute respiratory failure with hypoxia and hypercapnia (Acute) Pneumonia (Acute) Sepsis (Acute) RECOMMENDATIONS: 1. Continue BIPAP therapy as tolerated. Obtain arterial blood gas. 2. If patient unable to tolerate BIPAP, will transition to AVAPS for ventilatory support. 3. Continue empiric antimicrobials, pending infectious work-up. 4. Continue scheduled bronchodilators and IV steroids. The patient reportedly has a reaction to albuterol, so Atrovent will be used in its place. 5. Administer additional 1 L fluid bolus. 6. Hold home antihypertensives, given tenuous hemodynamics. IMPRESSIONS: 1. Acute on chronic combined respiratory failure likely secondary to COPD with exacerbation There is clinical concern for underlying community acquired pneumonia as precipitating etiology for the patient's exacerbation. However, it does appear that the patient has some baseline interstitial fibrosis, which was present on prior chest imaging, and appears to have progressed in the interim. At the current time, the patient will remain on scheduled bronchodilators with Atrovent, IV steroids and empiric antimicrobials. If the patient does not respond to the use of noninvasive positive pressure ventilatory support, she does wish to proceed with intubation. I would recommend that at some point during the patient's hospitalization a dedicated chest CT be obtained to evaluate further the patient's interstitial lung disease. If the patient does not respond appropriately to the use of BiPAP, she can be transitioned to AVAPS. 2. Severe sepsis likely secondary to community-acquired pneumonia Continue current supportive measures with bronchodilators, IV steroids and empiric antimicrobials. Infectious work-up is pending. The patient will receive additional supplemental IV fluid hydration. Recheck lactate level. 3. History of venous thromboembolic disease The patient does have a history of pulmonary emboli, for which she will be continued on Eliquis per outpatient regimen. 4. Chronic systolic heart failure/pulmonary hypertension I would recommend that the patient's home antihypertensive regimen be placed on hold for now, given tenuous hemodynamics. Recommend judicious use of supplemental IV fluids. 5. Tobacco dependency, currently in remission/hypertension/hyperlipidemia/peripheral vascular disease Complicates care, management, recovery and prognosis. Recommend holding antihypertensives, given tenuous hemodynamics. TIME: 40 minutes of critical care time, independent of procedures, was spent addressing the patient's acute on chronic combined respiratory failure, COPD with exacerbation, severe sepsis secondary to community-acquired pneumonia, history of venous thromboembolic disease, history of systolic heart failure, pulmonary hypertension, review of all data and collaboration with care team. ([id number]) Code Visit 9xxxx: [id number] Critical care first hour
[2019-02-19 08:31] LABS: Allen Test POS; Base Excess -4 mmol/L (-2 to +2); Bicarbonate 22.3 mmol/L (22-26); Blood Gas Specimen Type ART; EPAP 8; FI02 50; IPAP 15; PO2 79 mmHG (75-100); RR 14; SITE L Radial; SO2 94 % (95-99); Time Given 822; Total Carbon Dioxide 24 mmol/L; pH 7.32 (7.35-7.45)
[2019-02-19] MEDS: 0.9% Normal Saline 1,000 ML 125 ML IV ×2 (09:22→17:24)
[2019-02-19 09:24] LABS: BNP,B-Type NATRIURETIC PEPTIDE 125.2 pg/mL (0-100)
--- NOTE | 2019-02-19 10:08 | CASEMGMT ---
Addendum entered by Kapil Little 02/19/19 15:10: Pt/ made aware [facility] not able to accept pt. Pt given list of local [facility] agencies from [facility] website. Next preference of [facility] is [facility]. Addendum entered by Kapil Little 02/19/19 14:17: Call received from Jane Nick @ [facility]. She states they are not able to accept pt d/t staffing issues next week. Addendum entered by Kapil Little 02/19/19 10:45: Referral made to [facility] at this time as well. Order placed and message left with Laith @ [facility], for follow-up after [facility] discharges pt. Addendum entered by Kapil Little 02/19/19 10:31: [facility]: PH: [phone]. Initial referral packet faxed to [facility] at this time. Per Jane Garvin, they do accept [facility]. Addendum entered by Kapil Little 02/19/19 10:26: Call placed to [facility] with referral. Spoke with Jane Garvin. She was made aware pt just admitted to ICU and no anticipated discharge yet, but would like to get referral process started d/t weekend and [place] coming up. She asked for referral to faxed to them so they can review. CM to follow and update [facility] as needed. Original Note: RN CM VERTICAL LATHE OPERATOR CM to room to meet with patient for initial transition planning/care coordination assessment. RN CM introduced self and role at [facility]. Pt voices understanding and consents to assessment at this time. Pt resting in bed. BIPAP mask in place. , Gene, @ bedside. Pt is A/O at this time and answers all questions appropriately. Care providers, pharmacy, and demographics verified/updated at this time. PCP: Kiara Specialists: Ravi--cardiology, [place]--pulmonology [facility] Insurance: [employer]. States she [facility] [place]. Pres[place] Benefit: Yes Living Will/HPOA: States does not have LW or HCPOA . Interested in more information and would like to talk with SW to complete paperwork. MILE Farrell, made aware. LNOK: . Has 4 adult children. Living Arrangements: Lives with her . Daughter, Lynn, and her Ex- lives with them and their 17-yr-old daughter, Melania. They live in a one-story home. assists pt with ambulation at times. Pt able to bath/dress herself. and pt share home mgmt tasks. Transportation: Pt and do not drive. Daughter, Lynn, or her ex- drive. DME: States has the following DME: cane, walker, wheelchair, shower chair, nebulizer, and O2 through [employer] @ 3 1/2-4 L/M. Has concentrator and portable tanks. Pt states no need for further DME at this time. HHC/SNF: No hx of SNF. Has used [facility] in the past and pt would like have HHC set up with them again once she returns home. Pt wishes to return home w/[facility] and states has no other concerns with going home at time of discharge. CM to follow for any increasing home oxygen needs and any further discharge planning/needs. Pt/ voice no further concerns/needs at this time. Advised them to ask for CM if any further questions/concerns/needs arise. Voices understanding. PLAN: Home w/HHC. SW to see pt for AD, Palliative Care. Stacey MAHAN RN CM
[2019-02-19 10:23] LABS: Reflex Lactate? Y
[2019-02-19] MEDS: levoFLOXacin IV 500 MG/100 ML BAG 100 MG IV (10:30)
[2019-02-19] MEDS: guaiFENesin 1,200 MG Tablet 1200 MG PO (10:40)
[2019-02-19] MEDS: Atorvastatin Calcium 80 MG Tablet PO (10:40)
[2019-02-19] MEDS: Paroxetine 20 MG Tablet 40 MG PO (10:40)
[2019-02-19] MEDS: buPROPion (SR) 150 MG Tablet.SA PO (10:40)
[2019-02-19] MEDS: Fenofibrate 145 MG Tablet PO (10:40)
[2019-02-19] MEDS: Clopidogrel Bisulfate 75 MG Tablet PO (10:40)
[2019-02-19] MEDS: Aspirin 81 MG TAB.CHEW PO (10:40)
[2019-02-19] MEDS: APIXABAN 5 MG TABLET PO (10:41)
[2019-02-19] MEDS: Pantoprazole Sodium 20 MG Tablet PO (10:41)
[2019-02-19] MEDS: Ranolazine 500 MG Tablet PO (10:41)
[2019-02-19] MEDS: cycloBENZAPRine HCl 10 MG Tablet PO (10:47)
[2019-02-19] MEDS: CHLORHEXIDINE GLUC 2% CLOTH 1 EACH TOWELETTE TOPICAL (12:26)
[2019-02-19] MEDS: Gabapentin 600 MG Tablet PO ×2 (12:26→17:26)
[2019-02-19 13:00] LABS: M R Staph aureus DNA By PCR Negative (Negative); Probe Check PASS; Specimen Processing Control PASS
--- NOTE | 2019-02-19 13:08 | CASEMGMT ---
Pt's daughter is here, asking to speak w/SW about completing LW/POA forms. SW spoke w/pt, daughter in room. Pt's granddaughter present, as well as pt's -- was asleep. Pt is on bipapp at present. SW explained to pt and family that SW can assist in completing LW/POA forms, but it may be better to wait until pt is off of bipapp so she can more easily speak w/SW. Pt states understanding and is in agreement with this. Pt did indicate to this SW she wants to make her daughter who is present her POA. SW explained will ask a SW to come in to speak w/pt when she is off bipapp and can assist pt in completing the forms then. SW did leave the forms in the room w/the pt. SW also gave pt a brochure on palliative care and explained SW can explain this more also once she is off bipapp. Pt states understanding. SW will follow up in regard to both palliative care and completing LW/POA forms. JOSELYN Ellis
[2019-02-19] MEDS: 0.9% Saline Lock 10 ML Syringe IV ×2 (14:03→21:13)
[2019-02-19 14:28] LABS: Lactic Acid 1.9 mmol/L (0.4-1.9)
--- NOTE | 2019-02-19 21:10 | NURSING ---
bipap removed, 6L NC placed, within a couple minutes patient's HR 130's, RR up to the 40's, labored breathing using accessory muscles and restless, bipap replaced, patient not recovering well, bipap settings increased to 15/8 and 45%, MD notified and PM PO meds held.
--- NOTE | 2019-02-19 22:05 | NURSING ---
patient tolerating bipap settings well, RR 32, HR 90's, O2 97%, will continue to monitor.
[2019-02-19] MEDS: Enoxaparin 80 MG/0.8 ML Syringe 70 MG SC (22:30)
[2019-02-20] VITALS (46 sets, daily range): BP systolic 83–211; BP diastolic 46–166; PULSE 74–148; RESP 11–37; TEMP 36.9–37.7; O2SAT 85–97
[2019-02-20] MEDS: Ipratropium 0.5 MG/2.5 ML SOLUTION INHALATION ×4 (04:03→23:04)
[2019-02-20 04:14] LABS: Absolute Lymphocyte Count 1.04 X10^3/uL (0.83-4.51); Absolute Neutrophil Count 10.9 X10^3/uL (2.0-7.7); Basophil# 0.01 X10^3/uL; Basophil% 0.1 % (0-1); Hematocrit 37.8 % (37-47); Hemoglobin 11.6 g/dL (12.0-15.0); Lymphocyte # 1.04 X10^3/ul (4.0); Lymphocyte % 8.5 % (19-41); Mean Corp Hgb Conc 30.7 g/dL (32-36); Mean Corpuscular Volume 87.9 fL (81-99); Mean Platelet Vol. 9.8 fl (6.2-12.0); Monocyte# 0.16 X10^3/uL; Monocyte% 1.3 % (0-10); NRBC Flagged by Analyzer 0 % (0-5); Neutrophil # 10.94 X10^3/uL (2.7-7.7); Neutrophil % 89.6 % (47-70); Platelet Count 338 K/mm3 (150-450); RBC Distribution Width CV 14.9 % (11.6-14.6); RBC Distribution Width SD 47.4 fl (35.1-43.9); White Blood Count 12.2 K/mm3 (4.4-11.0)
[2019-02-20 04:28] LABS: Anion Gap 7 (5-15); BUN 16 mg/dL (7-18); BUN/Creat Ratio 15.5 RATIO (10-20); Calcium,Total 7.9 mg/dL (8.5-10.1); Chloride 114 mmol/L (98-107); Creatinine, Serum 1.03 mg/dL (0.55-1.02); EST Glomerular Filtration Rate 56 mL/min (>60); Est Glom Filt Rate - Afr Amer 67 mL/min (>60); Estimated Creatinine Clearance 40.24 ml/min; Glucose 135 mg/dL (74-106); Potassium 4.4 mmol/L (3.5-5.1); Sodium Level 144 mmol/L (136-145)
--- NOTE | 2019-02-20 04:47 | NURSING ---
0438: Dr. Rosales on the floor to assess patient 0443: instructed this RN and Raya Berg RN to prepare for intubation and left the room to review chart 0448: came back into the room and instructed Raya Berg RN to give ativan IV x1 and a NS bolus and hold off on intubation at this time.
[2019-02-20 04:56] LABS: Allen Test POS; Base Excess -10 mmol/L (-2 to +2); Bicarbonate 17.4 mmol/L (22-26); Blood Gas Specimen Type ART; EPAP 7; FI02 40; IPAP 14; PO2 64 mmHG (75-100); RR 12; SITE L Radial; SO2 88 % (95-99); Time Given 448; Total Carbon Dioxide 19 mmol/L; pCO2 41.4 mmHg (35-45); pH 7.23 (7.35-7.45)
[2019-02-20] MEDS: 0.9% Normal Saline 1,000 ML 999 ML IV (05:01)
[2019-02-20] MEDS: LORazepam 2 MG/ML Syringe 1 MG IV (05:01)
--- NOTE | 2019-02-20 05:13 | PN_ITS ---
Progress Note Attended to patient in respiratory distress; tripoding with respiratory rate in 30s and heart rate in 120s. ABG showed metabolic acidosis. Discussed a trial of Ativan IV and normal saline bolus to see whether patient improves. Per advanced manufacturing engineer notes consider AVAP if patient is unable to tolerate BiPAP. Will put patient on AVAP for now. Leukocytosis is improving and patient does not have a fever. MRSA is negative. Patient received azithromycin and ceftriaxone at the emergency department and currently on Levaquin. STROKE Vital Signs/Narrative: Vital Signs Pulse Resp BP Pulse Ox 02/20/19 05:00 123 H 35 H 107/87 H 94 02/20/19 04:30 148 H 37 H 165/76 H 95 02/20/19 04:20 130 H 36 H 156/113 H 95 02/20/19 04:03 110 H 30 H 02/20/19 04:00 107 H 28 H 143/106 H 96 02/20/19 03:00 85 27 H 111/68 95 02/20/19 02:04 108 H 26 H 95 02/20/19 02:00 86 21 H 105/66 94
[2019-02-20] MEDS: 0.9% Saline Lock 10 ML Syringe IV ×6 (05:19→21:08)
--- NOTE | 2019-02-20 06:35 | RAD_ITS ---
STUDY: X-RAY CHEST REASON FOR EXAM: Female, 73 years old. RESPIRATORY DISTRESS TECHNIQUE: Portable chest COMPARISON: 02/19/2019 FINDINGS: There are stable bilateral interstitial pulmonary infiltrates. There is significant upper lobe COPD changes.. There is an irregular 8 mm density within the right upper lobe. There is no demonstrated pleural abnormality. Normal size heart. Normal mediastinum and danielle. Normal visualized pulmonary arteries. Normal visualized aortic arch and descending thoracic aorta. Normal visualized thoracic spine. Normal visualized ribs, clavicles, and shoulders. There is no demonstrated abnormality of the visualized soft tissue structures of the upper abdomen. RAD/Chest 1 View (Portable) IMPRESSION: Stable bilateral interstitial pulmonary infiltrates with pulmonary scarring and likely pulmonary fibrosis; there may be acute infiltrates or pulmonary venous congestion in addition to the chronic interstitial fibrotic changes and/or progression of pulmonary fibrosis with no change when compared to most recent chest radiograph Upper lobe COPD changes Ill-defined 8 mm density right upper lobe scar versus pulmonary lesion CT chest follow-up recommended Electronically Signed: Mohsen Zhong, at 7:15 EST Tel , Service support ,
--- NOTE | 2019-02-20 06:35 | PCM.PN.INT ---
Subjective: The patient was seen and examined at the bedside this morning. Events from the last 24 hours have been reviewed. The patient is currently afebrile, but is tachycardic and tachypneic. The patient has been unable to come off of any form of noninvasive positive pressure ventilatory support. Her respiratory status has continued to decline over the course of the evening. She was transitioned from BiPAP to AVAPS overnight, but remains significantly short of breath with increased work of breathing. The patient remains alert and appropriately interactive. I explained my concerns to the patient this morning, including my recommendations to proceed with intubation. The patient is in agreement. Intubation Indication: Acute on chronic hypoxemic respiratory failure Consent was obtained from: Patient The patient was placed in the appropriate sniffing position. Preoxygenated sedation via bag valve mask was provided for a minimum of 3 minutes. The patient had continuous cardiac as well as pulse oximetry monitoring during the procedure. Procedure sedation was provided by the administration of 4 mg of Versed and 20 mg of etomidate. Direct laryngoscopy was then performed using a number 4 blade, which revealed a grade 1 view. A 7.5 mm endotracheal tube was visualized advancing between the cords to the level of 22 cm at the lip. The stylette was then removed and discarded. Tube placement was confirmed by fogging in the tube along with equal and bilateral breath sounds. Colorimetric change was visualized on the CO2 meter. The cuff was then inflated and the tube secured using a commercially available device. A good pulse oximetry waveform was seen on the monitor throughout the procedure. A portable chest x-ray has been ordered to confirm appropriate placement. The patient tolerated the procedure well. Objective: The patient's most recent lab work, culture data and imaging studies have all been personally reviewed. General: - - Ill in appearance. BiPAP mask currently in place. HEENT: Atraumatic, PERRLA, Normocephalic Oral: Dry Mucosa Neck: Supple, No Nodes, Trachea Midline Lungs: Diminished, Short of Breath, Tachypneic, Using Accessory Muscles, Wheezes Cardiovascular: Normal S1, Normal S2, No murmurs, Tachycardic Abdomen: Bowel Sounds Present, Soft, Non Tender Extremities: No cyanosis, No edema, Clubbing Skin: No breakdown Musculoskeletal: No Tenderness to Palpation of Joints or Extremities Lymphatic: No Cervical, Supraclavicular, or Inguinal Adenopathy Neurological: Cranial nerves II-XII grossly intact, Neuro grossly intact Psych/Mental Status: Anxious Vital Signs Temp Pulse Resp BP Pulse Ox 98.8 F 138 H 30 H 96/81 H 94 02/20/19 06:00 02/20/19 06:00 02/20/19 06:00 02/20/19 06:00 02/20/19 06:00 Oxygen Flow Rate (L/min) 6 Oxygen Delivery Method Bi-pap Weight: 155 lb 10.342 oz Body Mass Index (BMI) 26.4 Intake and Output for Last 24 Hours 02/18/19 02/19/19 02/20/19 23:59 23:59 23:59 Intake Total 3585 / 3585 2019 Output Total 400 / 400 100 / 100 Balance 3185 / 3185 1920 / 1920 Labs (Last 48 Hours) 02/19/19 02/19/19 02/19/19 06:15 06:15 06:15 WBC 16.5 H RBC 4.91 Hgb 13.2 Hct 43.5 MCV 88.6 MCH 26.9 L MCHC 30.3 L RDW Std Deviation 46.6 H RDW Coeff of Abhinav 14.6 Plt Count 468 H MPV 9.4 Immature Gran % (Auto) 0.700 Neut % (Auto) 68.6 Lymph % (Auto) 21.0 [place] % (Auto) 4.0 Eos % (Auto) 5.1 H Baso % (Auto) 0.6 Absolute Neuts (auto) 11.3 H Absolute Lymphs (auto) 3.47 Nucleated RBC % 0 Specimen Type Sample Site pH Bicarbonate Actual POC Total CO2 Base Excess O2 Saturation O2 % ABG pCO2 ABG pO2 Angelo Test Respiration Rate O2 Delivery Device EPAP IPAP Blood Gas Notified Whom Blood Gas Notified Time Sodium 142 Potassium 3.8 Chloride 108 H Carbon Dioxide 26.0 Anion Gap 8 BUN 17 Creatinine 1.33 H Estim Creat Clear Calc 29.80 Est GFR (MDRD) Af Amer 50 L Est GFR (MDRD) Non-Af 42 L BUN/Creatinine Ratio 12.8 Glucose 234 H Lactic Acid 2.7 H* Calcium 9.2 Troponin I < 0.015 B-Natriuretic Peptide MRSA (PCR) 02/19/19 02/19/19 02/19/19 06:15 08:24 08:40 WBC RBC Hgb Hct MCV MCH MCHC RDW Std Deviation RDW Coeff of Abhinav Plt Count MPV Immature Gran % (Auto) Neut % (Auto) Lymph % (Auto) [place] % (Auto) Eos % (Auto) Baso % (Auto) Absolute Neuts (auto) Absolute Lymphs (auto) Nucleated RBC % Specimen Type ART Sample Site L Radial pH 7.32 L Bicarbonate Actual 22.3 POC Total CO2 24 Base Excess -4 L O2 Saturation 94 L O2 % 50 ABG pCO2 43.0 ABG pO2 79 Angelo Test POS Respiration Rate 14 O2 Delivery Device Bi / C PAP EPAP 8 IPAP 15 Blood Gas Notified Whom ICU MD Blood Gas Notified Time 822 Sodium Potassium Chloride Carbon Dioxide Anion Gap BUN Creatinine Estim Creat Clear Calc Est GFR (MDRD) Af Amer Est GFR (MDRD) Non-Af BUN/Creatinine Ratio Glucose Lactic Acid Calcium Troponin I B-Natriuretic Peptide 125.2 H MRSA (PCR) Negative 02/19/19 02/19/19 02/20/19 10:55 13:55 04:10 WBC 12.2 H RBC 4.30 Hgb 11.6 L Hct 37.8 MCV 87.9 MCH 27.0 MCHC 30.7 L RDW Std Deviation 47.4 H RDW Coeff of Abhinav 14.9 H Plt Count 338 MPV 9.8 Immature Gran % (Auto) 0.500 Neut % (Auto) 89.6 H Lymph % (Auto) 8.5 L [place] % (Auto) 1.3 Eos % (Auto) 0.0 Baso % (Auto) 0.1 Absolute Neuts (auto) 10.9 H Absolute Lymphs (auto) 1.04 Nucleated RBC % 0 Specimen Type Sample Site pH Bicarbonate Actual POC Total CO2 Base Excess O2 Saturation O2 % ABG pCO2 ABG pO2 Angelo Test Respiration Rate O2 Delivery Device EPAP IPAP Blood Gas Notified Whom Blood Gas Notified Time Sodium Potassium Chloride Carbon Dioxide Anion Gap BUN Creatinine Estim Creat Clear Calc Est GFR (MDRD) Af Amer Est GFR (MDRD) Non-Af BUN/Creatinine Ratio Glucose Lactic Acid 3.0 H* 1.9 Calcium Troponin I B-Natriuretic Peptide MRSA (PCR) 02/20/19 02/20/19 04:10 04:52 WBC RBC Hgb Hct MCV MCH MCHC RDW Std Deviation RDW Coeff of Abhinav Plt Count MPV Immature Gran % (Auto) Neut % (Auto) Lymph % (Auto) [place] % (Auto) Eos % (Auto) Baso % (Auto) Absolute Neuts (auto) Absolute Lymphs (auto) Nucleated RBC % Specimen Type ART Sample Site L Radial pH 7.23 L Bicarbonate Actual 17.4 L POC Total CO2 19 Base Excess -10 L O2 Saturation 88 L O2 % 40 ABG pCO2 41.4 ABG pO2 64 L Angelo Test POS Respiration Rate 12 O2 Delivery Device Bi / C PAP EPAP 7 IPAP 14 Blood Gas Notified Whom ICU Blood Gas Notified Time 448 Sodium 144 Potassium 4.4 Chloride 114 H Carbon Dioxide 23.0 Anion Gap 7 BUN 16 Creatinine 1.03 H Estim Creat Clear Calc 40.24 Est GFR (MDRD) Af Amer 67 Est GFR (MDRD) Non-Af 56 L BUN/Creatinine Ratio 15.5 Glucose 135 H Lactic Acid Calcium 7.9 L Troponin I B-Natriuretic Peptide MRSA (PCR) Microbiology 02/19/19 17:20 Urine Catheter - Catheter Legionella Antigen - Final 02/19/19 13:39 Urine Catheter - Catheter Streptococcus pneumoniae Antigen (M - Final 02/19/19 06:30 Mucosa - Nasopharyngeal Respiratory Panel (PCR) - Final 02/19/19 06:30 Mucosa - Nasopharyngeal Influenza Types A,B Direct FA ([facility]) - Final Clinical Impression(s) from Imaging Studies Chest X-Ray 02/19/19 06:05 IMPRESSION: Bilateral lower airspace disease superimposed upon moderately severe pulmonary fibrosis. Differential considerations include bronchitis versus pneumonia. Electronically Signed: Marivel Smart MD at 6:39 EST , Service support , Medical Necessity - Tobacco Use Smoking Status: Former smoker Tobacco Use: Cigarettes Assessment/Plan All Active Problems (Last Reviewed 08/01/18 @ 15:50 by Jackson Peter DO) Lower respiratory infection (Acute) Acute respiratory failure with hypoxia and hypercapnia (Acute) Pneumonia (Acute) Sepsis (Acute) Pulmonary embolism (Acute) Cholelithiasis NOS (Acute) Acute respiratory failure with hypoxia and hypercapnia (Acute) COPD with acute exacerbation (Acute) Gram-negative pneumonia (Acute) Acute hypercapnic respiratory failure (Acute) NSTEMI (non-ST elevated myocardial infarction) (Acute) COPD exacerbation (Acute) RECOMMENDATIONS: 1. Obtain arterial blood gas 1 hour post intubation. 2. Once clinically stabilized, obtain noncontrasted chest CT. 3. Trend troponins and obtain echocardiogram. 4. Broaden antimicrobials to include cefepime and vancomycin. 5. Continue Eliquis. 6. Continue bronchodilators with Atrovent, along with IV steroids. 7. Wean FiO2 to maintain oxygen saturations at or above 90%. 8. Start stress ulcer prophylaxis. 9. Okay to start tube feeds from my perspective. IMPRESSIONS: 1. Acute on chronic combined respiratory failure likely secondary to COPD with exacerbation There is clinical concern for underlying community acquired pneumonia as precipitating etiology for the patient's exacerbation. However, it does appear that the patient has some baseline interstitial fibrosis, which was present on prior chest imaging, and appears to have progressed in the interim. Despite the use of noninvasive positive pressure ventilatory support, the patient continued to decompensate from a clinical perspective and did require intubation on the morning of February 20. Her antibiotics have been broadened accordingly. She will remain on bronchodilators and IV steroids. Once the patient is clinically stabilized, will obtain CT chest for further evaluation of the patient's interstitial lung disease. 2. Severe sepsis likely secondary to community-acquired pneumonia Continue current supportive measures with bronchodilators, IV steroids and empiric antimicrobials. Infectious work-up is pending. 3. History of venous thromboembolic disease The patient does have a history of pulmonary emboli, for which she will be continued on Eliquis per outpatient regimen. 4. Troponin elevation Although initially felt to be secondary to demand ischemia, a review of the patient's repeat echocardiogram revealed worsening in her LV ejection fraction. Therefore, we will continue to trend troponins and obtain a cardiology consultation. 5. Chronic systolic heart failure/pulmonary hypertension I would recommend that the patient's home antihypertensive regimen be held for now, given tenuous hemodynamics. Recommend judicious use of supplemental IV fluids. 6. Tobacco dependency, currently in remission/hypertension/hyperlipidemia/peripheral vascular disease Complicates care, management, recovery and prognosis. Recommend holding antihypertensives, given tenuous hemodynamics. TIME: 45 minutes of critical care time, independent of procedures, was spent addressing the patient's acute on chronic combined respiratory failure, COPD with exacerbation, severe sepsis secondary to community-acquired pneumonia, history of venous thromboembolic disease, history of systolic heart failure, pulmonary hypertension, review of all data and collaboration with care team. ([id number]) Code Visit [id number]: [id number] Critical care first hour
--- NOTE | 2019-02-20 07:17 | RAD_ITS ---
STUDY: X-RAY - ABDOMEN/PELVIS REASON FOR EXAM: Female, 73 years old patient with recent nasogastric and orogastric tube placement. TECHNIQUE: Single AP view of the abdomen / pelvis. COMPARISON: CT of the abdomen and pelvis dated April 01, 2018. FINDINGS: There is interstitial thickening present in both lung bases. There is an unremarkable bowel gas pattern. Enteric tube is present with the distal lead in the left upper quadrant. Cardiac monitoring leads are present. There is no obvious organomegaly, mass or dilated bowel. No pathologic calcifications are visualized. Normal soft tissue structures. There are diffuse degenerative changes of the visualized lumbar spine. Bones appear osteopenic. RAD/Abdomen Single View (Portable) IMPRESSION: Appropriate positioning of enteric tube with the tip probably in the stomach. Electronically Signed: Marivel Smart MD at 9:42 EST , Service support ,
--- NOTE | 2019-02-20 07:28 | NURSING ---
0728-Dr. Golden, Ely Guido, RN, respiratory therapist, and this RN at bedside 0730- Versed 4 mg IV given via Ely Guido, RN 0731- Etomidate 20 mg IV given via Dr. Golden HR 120 O2 96% RR 17 BP 123/88 0732- #7.5 ETT, 22 @ lip, via Dr. Golden, positive color change, bilateral breath sounds, restraints applied.
[2019-02-20] MEDS: Midazolam 2 MG/2 ML Syringe 5 MG IV (07:30)
[2019-02-20] MEDS: Etomidate 20 MG/10 ML Vial IV (07:31)
[2019-02-20] MEDS: Propofol 10MG/Ml 1,000 MG/100 ML Bottle 4.2 MG CONT INF ×2 (07:35→20:37)
[2019-02-20] MEDS: fentaNYL drip 100 ML 2.5 MCG IV (07:35)
--- NOTE | 2019-02-20 07:40 | RAD_ITS ---
STUDY: X-RAY CHEST REASON FOR EXAM: Female, 73 years old patient with recent endotracheal tube (ETT) placement. TECHNIQUE: Single AP portable view of the chest. COMPARISON: February 20, 2019 time stamped 6:37 AM. FINDINGS: Tip of the endotracheal tube is at the level of the aortic arch. Cardiac monitoring leads are present. The lungs are underexpanded. There is bilateral heterogeneous air space consolidation. There are small pleural effusions. Normal size heart. Normal mediastinum and danielle. There is prominence of the pulmonary hilar arteries without peripheral pulmonary vascular congestion. There is atherosclerotic calcification of the aortic arch with tortuosity. There is demineralization of the osseous structures. Normal visualized ribs, clavicles, and shoulders. There is no demonstrated abnormality of the visualized soft tissue structures of the upper abdomen. RAD/Chest 1 View (Portable) IMPRESSION: 1. Appropriate positioning of endotracheal tube. 2. Heterogeneous bilateral basilar interstitial and air space consolidations may represent pneumonia. Electronically Signed: Marivel Smart MD at 8:59 EST , Service support ,
[2019-02-20] MEDS: fentaNYL 100 MCG/2 ML Ampul 50 MCG IV (07:50)
--- NOTE | 2019-02-20 07:56 | PCM.RX.CS ---
Consult Pharmacy has been consulted to manage selected antiobiotic: Vancomycin Type of Consult: New start Suspected Infection: Sepsis, Pneumonia Prior Doses of Antibiotics Received/Current Regimen: NONE Labs: Sodium 144 mmol/L (136-145) 02/20/19 04:10 Potassium 4.4 mmol/L (3.5-5.1) 02/20/19 04:10 Chloride 114 mmol/L (98-107) H 02/20/19 04:10 Carbon Dioxide 23.0 mmol/L (21.0-32.0) 02/20/19 04:10 Anion Gap 7 (5-15) 02/20/19 04:10 BUN 16 mg/dL (7-18) 02/20/19 04:10 Creatinine 1.03 mg/dL (0.55-1.02) H 02/20/19 04:10 Est GFR (MDRD) Af Amer 67 mL/min (>60) 02/20/19 04:10 Est GFR (MDRD) Non-Af 56 mL/min (>60) L 02/20/19 04:10 BUN/Creatinine Ratio 15.5 RATIO (10-20) 02/20/19 04:10 Glucose 135 mg/dL (74-106) H 02/20/19 04:10 Microbiology: Microbiology 02/19/19 17:20 Urine Catheter - Catheter Legionella Antigen - Final 02/19/19 13:39 Urine Catheter - Catheter Streptococcus pneumoniae Antigen (M - Final 02/19/19 06:30 Mucosa - Nasopharyngeal Respiratory Panel (PCR) - Final 02/19/19 06:30 Mucosa - Nasopharyngeal Influenza Types A,B Direct FA ([facility]) - Final Weight used for dosin kg Estimated Creatinine Clearance: 41ML/MIN Goal Trough: 15-20 mcg/mL Pharmacy Plan for Drug Dosing: PLAN/RECOMMENDATIONS 1. Vancomycin loading dose 25mg/kg x1 --> 1750mg IV x1 02/20/19 @0830 2. Scheduled vancomycin 500mg IV Q12hrs to start ~12hrs from last dose 02/20/19 @2100 3. Trough prior to 4th total dose 02/21/19 @2030 4. Pharmacy Service will continue to monitor and adjust dosing as required.
--- NOTE | 2019-02-20 08:21 | NURSING ---
Called pt's daughter Lynn to notify of intubation. Pt's Gene just arrived and was updated on status as well.
[2019-02-20 08:24] LABS: BNP,B-Type NATRIURETIC PEPTIDE 1435.3 pg/mL (0-100)
--- NOTE | 2019-02-20 08:24 | ECHOD_ITS ---
Reason For Study: DYSPNEA Procedure This was a 2D Doppler, Color Flow transthoracic echocardiogram. Pt supine on vent for exam. Exam performed portable in ICU/CCU. Left Ventricle Normal LV size. Moderately severe segmental systolic dysfunction (see wall motion). The estimated ejection fraction is 20 %. There are regional wall motion abnormalities as specified. [place] : Akinetic. Infero-Basal: Normal. Basal inferoseptal: Normal. The rest of the wall segments are hypokinetic. Right Ventricle Normal RV size. Normal systolic function. Atria Normal left atrium. Normal right atrium. Mitral Valve There is mild to moderate mitral annular calcification. Mild (1+) eccentric mitral valve insufficiency. Tricuspid Valve Normal tricuspid valve. Mild to moderate (1-2+) tricuspid valve insufficiency. Pulmonary artery systolic pressure is 52 mmHg. Moderate pulmonary hypertension. Aortic Valve Mild (1+) eccentric aortic valve insufficiency. Pulmonic Valve The pulmonic valve is not well visualized. Great Vessels Normal aortic root. The pulmonary artery is normal size. Pericardium/Pleural No pericardial effusion. MMode/2D Measurements & Calculations LVIDd: 4.3 cm IVSd: 1.1 cm Ao root diam: 3.1 cm LVIDs: 2.9 cm LVPWd: 1.1 cm RVDd: 3.1 cm FS: 32.7 % LAV(MOD-bp): 43.6 ml LVAd ap4: 23.1 cm2 SV(MOD-sp4): 24.7 ml LAV(MOD-bp) Indexed: 25.6 ml/m2 EDV(MOD-sp4): 66.6 ml LAV(MOD-sp2): 47.2 ml EDV(sp4-el): 69.3 ml LAV(MOD-sp4): 38.8 ml LVAs ap4: 18.0 cm2 ESV(MOD-sp4): 42.0 ml ESV(sp4-el): 44.1 ml EF(MOD-sp4): 37.0 % EF(sp4-el): 36.4 % SV(sp4-el): 25.2 ml LA A4 area: 15.9 cm2 LA dimension(2D): 3.9 cm RA A4 area: 16.0 cm2 Time Measurements MV dec time: 0.17 sec Doppler Measurements & Calculations MV E max ras: 60.1 cm/sec Lat Peak E' Ras: 3.7 cm/sec Med Peak E' Ras: 3.2 cm/sec MV A max ras: 94.1 cm/sec E/E' lat: 16.3 E/E' med: 18.6 MV E/A: 0.64 MV V2 max: 105.3 cm/sec Ao V2 max: 105.9 cm/sec AI max ras: 291.7 cm/sec MV max P.4 mmHg Ao max P.5 mmHg AI max P.1 mmHg MV V2 mean: 61.9 cm/sec MV mean P.7 mmHg AI dec slope: 230.9 cm/sec2 MV V2 VTI: 17.3 cm AI P1/2t: 370.1 msec LV V1 max: 90.6 cm/sec PA V2 max: 74.6 cm/sec TR max ras: 341.9 cm/sec LV V1 max P.3 mmHg TR max P.0 mmHg MV P1/2t-pr_phl: 74.6 msec Interpretation Summary Normal LV size. Moderately severe segmental systolic dysfunction (see wall motion). The estimated ejection fraction is 20 %. There are regional wall motion abnormalities as specified. Moderate pulmonary hypertension. Compared to previous study, the left ventricular systolic function has worsened.. Ordering Physician: Marcos Golden Referring Physician: JODI BUTLER Performed By: Isabel Gardner, GIACOMOCS, RVT
--- NOTE | 2019-02-20 08:30 | EKG12_ITS ---
Test Reason : CHANGE Blood Pressure : / mmHG Vent. Rate : 109 BPM Atrial Rate : 109 BPM P-R Int : 140 ms QRS Dur : 084 ms QT Int : 372 ms P-R-T Axes : 036 032 218 degrees QTc Int : 500 ms Sinus tachycardia Anterior infarct , age undetermined ST & Marked T-wave abnormality, consider inferolateral ischemia Abnormal ECG When compared with ECG of 20-FEB-2019 08:59, MANUAL COMPARISON REQUIRED, DATA IS UNCONFIRMED Confirmed by JOÃO IVEY, ANGIE ([id number]), publications editor NORMA RODRIGUEZ ([id number]) on 02/24/2019 9:51:33 AM Referred By: JAKE Confirmed By:ANGIE MOYER MD
[2019-02-20 09:26] LABS: Allen Test POS; Base Excess -5 mmol/L (-2 to +2); Bicarbonate 21.8 mmol/L (22-26); Blood Gas Specimen Type ART; FI02 80; Mode A-C; O2 Delivery Device Vent; PEEP 5; PO2 65 mmHG (75-100); RR 12; SITE L Brachial; SO2 88 % (95-99); Time Given 922; Total Carbon Dioxide 23 mmol/L; Vt 400; pCO2 49.4 mmHg (35-45); pH 7.25 (7.35-7.45)
--- NOTE | 2019-02-20 09:29 | CASEMGMT ---
RN CM Note: Pt intubated this am. DC planning deferred at this time. [place] BACHN RN ACM
--- NOTE | 2019-02-20 09:43 | PN_ITS ---
Patient Problems: Active and Suspected Problems (Last Reviewed 08/01/18 @ 15:50 by Jackson Peter DO) Acute respiratory failure with hypoxia and hypercapnia (Acute) Pneumonia (Acute) Sepsis (Acute) Subjective: Patient seen and examined. She was intubated this morning on account of worsening shortness of breath. Patient was sedated at time of review. Unable to do review of systems on account of sedation. Labs and vitals reviewed. BNP was 125.2 on admission but had gone up to one 435.3 this morning. WBC has trended down to 12.2. Overnight, she was in respiratory distress and was tripoding with respiratory rate in the 30s and heart rate in the 120s. ABG showed metabolic acidosis. She was given IV Ativan and normal saline bolus to see if she improved and she was put on AVAP. However did not tolerate this and so ended up being intubated. Vitals/I&O's: Vital Signs Temp Pulse Resp BP Pulse Ox 98.8 F 121 H 27 H 123/88 H 96 02/20/19 06:00 02/20/19 07:32 02/20/19 07:32 02/20/19 07:32 02/20/19 07:32 Oxygen Flow Rate (L/min) 6 Oxygen Delivery Method Ambu-Bag Weight: 155 lb 10.342 oz Body Mass Index (BMI) 26.4 Intake and Output for Last 24 Hours 02/18/19 02/19/19 02/20/19 23:59 23:59 23:59 Intake Total 3585 / 3585 2019 Output Total 400 / 400 100 / 100 Balance 3185 / 3185 1920 / 1920 General: intubated, sedated. RASS score is -4 HEENT: Atraumatic, PERRLA, EOMI, Normocephalic Oral: Dry Mucosa Neck: Supple, No JVD, Negative Carotid Bruits Lungs: - -breath sounds decreased bibasally, no wheezes or crackles. Intubated. Cardiovascular: Regular rate, Regular Rhythm, Normal S1, Normal S2, No murmurs Abdomen: Bowel Sounds Present, Soft, Non Tender Extremities: No clubbing, No cyanosis, No edema, Capillary Refill Less than 3 Seconds Skin: No rashes, No breakdown Musculoskeletal: No Tenderness to Palpation of Joints or Extremities Lymphatic: No Cervical, Supraclavicular, or Inguinal Adenopathy Neurological: Cranial nerves II-XII grossly intact, Neuro grossly intact, Motor Exam 5/5 strength throughout Psych/Mental Status: intubated, sedated. Microbiology Past 72 Hours 02/19/19 17:20 Urine Catheter - Catheter Legionella Antigen - Final 02/19/19 13:39 Urine Catheter - Catheter Streptococcus pneumoniae Antigen (M - Final 02/19/19 06:30 Mucosa - Nasopharyngeal Respiratory Panel (PCR) - Final 02/19/19 06:30 Mucosa - Nasopharyngeal Influenza Types A,B Direct FA (CORY) - Final Laboratory Results 02/19/19 08:40: MRSA (PCR) Negative 02/19/19 10:55: Lactic Acid 3.0 H* 02/19/19 13:55: Lactic Acid 1.9 02/20/19 04:10: WBC 12.2 H, RBC 4.30, Hgb 11.6 L, Hct 37.8, MCV 87.9, MCH 27.0, MCHC 30.7 L, RDW Std Deviation 47.4 H, RDW Coeff of Abhinav 14.9 H, Plt Count 338, MPV 9.8, Immature Gran % (Auto) 0.500, Neut % (Auto) 89.6 H, Lymph % (Auto) 8.5 L, [place] % (Auto) 1.3, Eos % (Auto) 0.0, Baso % (Auto) 0.1, Absolute Neuts (auto) 10.9 H, Absolute Lymphs (auto) 1.04, Nucleated RBC % 0 02/20/19 04:10: Sodium 144, Potassium 4.4, Chloride 114 H, Carbon Dioxide 23.0, Anion Gap 7, BUN 16, Creatinine 1.03 H, Estim Creat Clear Calc 40.24, Est GFR (MDRD) Af Amer 67, Est GFR (MDRD) Non-Af 56 L, BUN/Creatinine Ratio 15.5, Glucose 135 H, Calcium 7.9 L 02/20/19 04:10: Troponin I 0.848 H* 02/20/19 04:10: B-Natriuretic Peptide 1435.3 H 02/20/19 04:52: Specimen Type ART, Sample Site L Radial, pH 7.23 L, Bicarbonate Actual 17.4 L, POC Total CO2 19, Base Excess -10 L, O2 Saturation 88 L, O2 % 40, ABG pCO2 41.4, ABG pO2 64 L, Angelo Test POS, Respiration Rate 12, O2 Delivery Device Bi / C PAP, EPAP 7, IPAP 14, Blood Gas Notified Whom ICU , Blood Gas Notified Time 448 02/20/19 09:23: Specimen Type ART, Sample Site L Brachial, pH 7.25 L, Bicarbonate Actual 21.8 L, POC Total CO2 23, Base Excess -5 L, O2 Saturation 88 L, O2 % 80, ABG pCO2 49.4 H, ABG pO2 65 L, Angelo Test POS, Respiration Rate 12, O2 Delivery Device Vent, Minute Volume 9.00, Vent Mode A-C, Tidal Volume 400, POC PEEP 5, Blood Gas Notified Whom ICU , Blood Gas Notified Time 922 02/20/19 09:30: Troponin I Pending Diagnostic Data KUB X-Ray 02/20/19 07:17 IMPRESSION: Appropriate positioning of enteric tube with the tip probably in the stomach. Electronically Signed: Marivel Smart MD at 9:42 EST , Service support , Chest X-Ray 02/20/19 07:40 IMPRESSION: 1. Appropriate positioning of endotracheal tube. 2. Heterogeneous bilateral basilar interstitial and air space consolidations may represent pneumonia. Electronically Signed: Marivel Smart MD at 8:59 EST , Service support , Current Medications Acetaminophen (Tylenol Liquid) 650 mg GT Q6H PRN PRN PRN Reason: Pain 1-3/10 or Fever >100.7 Apixaban (Eliquis) 5 mg GT BID [facility] Aspirin (Aspirin, Baby) 81 mg GT DAILY@0800 [facility] Atorvastatin Calcium (Lipitor) 80 mg GT QHS [facility] Bupropion HCl (Wellbutrin Tablets) 75 mg GT BID [facility] Chlorhexidine Gluconate () 1 each TOPICAL DAILY [facility] Last Admin: 02/19/19 12:26 Dose: 1 each Documented by: Chlorhexidine Gluconate () 15 ml PO BID [facility] Clopidogrel Bisulfate (Plavix) 75 mg GT DAILY [facility] Cyclobenzaprine HCl (Flexeril) 10 mg GT DAILY [facility] Famotidine (Pepcid) 20 mg GT DAILY [facility] Fenofibrate (Tricor) 145 mg GT DAILY [facility] Gabapentin (Neurontin) 600 mg GT TIDCM [facility] Glucagon () 1 mg IM .X1 PRN PRN Reason: Hypoglycemia Guaifenesin (Robitussin) 60 ml GT BID [facility] Sodium Chloride () 250 mls @ 15 mls/hr IV .[id number] PRN PRN Reason: Saline Flush Last Infusion: 02/19/19 12:30 Dose: 0 mls/hr Documented by: Sodium Chloride () 250 mls @ 15 mls/hr IV .[id number] PRN PRN Reason: Additional IVPB Infusion Dextrose (Dextrose 10%-Water) 250 mls @ 999 mls/hr IV .Q16M PRN; Protocol PRN Reason: HYPOGLYCEMIA Cefepime HCl 2 gm/ Sodium (Chloride) 100 mls @ 200 mls/hr IV Q12 NAIF Vancomycin IV Pharmacy to Dose (1 ea/ Sodium Chloride) 500 mls @ 250 mls/hr IV PRN PRN; Protocol PRN Reason: Rx to Dose Propofol (Diprivan) 1,000 mg in 100 mls @ 4.236 mls/hr CONT INF .Q12H [facility]; Protocol Last Admin: 02/20/19 07:35 Dose: 10 mcg/kg/min, 4.2 mls/hr Documented by: Fentanyl () 100 mls @ 2.5 mls/hr IV UD [facility]; Protocol Last Admin: 02/20/19 07:35 Dose: 25 mcg/hr, 2.5 mls/hr Documented by: Vancomycin HCl () 500 mg in 100 mls @ 100 mls/hr IV Q12H [facility] Vancomycin HCl 1,750 mg/ (Sodium Chloride) 535 mls @ 250 mls/hr IV X1 ONE Stop: 02/20/19 10:38 Last Admin: 02/20/19 09:11 Dose: 250 mls/hr Documented by: Ipratropium [place] (Atrovent) 0.5 mg INHALATION Q4H.RT [facility] Last Admin: 02/20/19 04:03 Dose: 0.5 mg Documented by: Methylprednisolone (Solu-Medrol) 40 mg IV Q8 [facility] Last Admin: 02/20/19 05:19 Dose: 40 mg Documented by: Nicotine (Nicoderm Cq (Pbkc)) 21 mg TRANSDERM. DAILY [facility] Last Admin: 02/19/19 10:49 Dose: 21 mg Documented by: Nitroglycerin (Nitrostat) 0.4 mg SUBLINGUAL Q5M PRN PRN Reason: CHEST Paroxetine HCl (Paxil) 40 mg GT DAILY [facility] Potassium Chloride (Potassium Chl Soln) 20 meq GT BIDCM [facility] Ranolazine (Ranexa) 500 mg PO BID [facility] Last Admin: 02/19/19 22:12 Dose: Not Given Documented by: Sodium Chloride () 10 - 40 ml IV UD PRN PRN Reason: SALINE FLUSH Last Admin: 02/20/19 09:17 Dose: 10 ml Documented by: STROKE Vital Signs/Narrative: Vital Signs Temp Pulse Resp BP Pulse Ox 02/20/19 07:32 121 H 27 H 123/88 H 96 02/20/19 07:00 116 H 31 H 211/166 H 96 02/20/19 06:00 98.8 F 138 H 30 H 96/81 H 94 Medical Necessity - Tobacco Use Smoking Status: Former smoker Tobacco Use: Cigarettes Assessment/Plan All Active Problems (Last Reviewed 08/01/18 @ 15:50 by Jackson Peter DO) Lower respiratory infection (Acute) Acute respiratory failure with hypoxia and hypercapnia (Acute) Pneumonia (Acute) Sepsis (Acute) Pulmonary embolism (Acute) Cholelithiasis NOS (Acute) Acute respiratory failure with hypoxia and hypercapnia (Acute) COPD with acute exacerbation (Acute) Gram-negative pneumonia (Acute) Acute hypercapnic respiratory failure (Acute) NSTEMI (non-ST elevated myocardial infarction) (Acute) COPD exacerbation (Acute) 73 y/o admitted with a complaint of worsening shortness of breath 1. Acute on chronic hypoxic respiratory failure due to COPD exacerbation and community acquired pneumonia * Patient had to be intubated this morning on account of worsening respiratory distress. * Currently on propofol sedation * on IV cefepime and IV vancomycin * urine for strep and legionella are negative * blood cultures pending * sputum for gram stain and culture pending * continue breathing treatments * critical care on board * 2. Severe sepsis due to community acquired pneumonia * as under 1. * now on IV vancomycin and cefepime * lactic acidosis has resolved * critical care on board * 3. Acute sytolic heart failure, * BNP was 125 on admission but is now up to 1435. * 2D echo is pending. * Blood pressure is running low in the 80s systolic. * may be due to fluid overload as well * 2D echo(03/22); EF of 45%, with mild segmental systolic dysfunction. * 2D echo: EF of 20%, with moderately sevre segmental systolic dysfunction and regional wall motion abnormalities, moderate pulmonary hypertension * will hold off on diuresis for now, due to low BP * cardiology consulted * 4. NSTEMI * troponin checked today as 0.848, and trended upwards to 0.930->0.919 * cardiology consulted: she will need a cardiac cath, which will be performed once she is extubated * 2D echo findings as under 3. * continue aspirin, statin and plavix. * on eliquis. * 5. COPD exacerbation: as under 1. 6. CAD s/p stents: on aspirin, statin and plavix. on imdur 7. Fibromyalgia: stable. 8. Hypertension adn hyperlipidemia: on metoprolol and losartan. On statin. BP meds on hold o/a of hypotension 9. History of DVT: on eliquis 10. Nicotine dependence: On nicotine patch 21mg daily. DVT prophylaxis; on eliquis * COde status: full code * Code Visit Inpatient E&M: 57612 Subs Hosp L3
--- NOTE | 2019-02-20 09:52 | CT_ITS ---
STUDY: CT CHEST WITHOUT CONTRAST REASON FOR EXAM: Female, 73 years old patient presents for evaluation of worsening interstitial lung disease. Patient has history of HTN, CHF, and endovascular stents. RADIATION DOSAGE (If Supplied By Facility): CTDIvol = ( 19.78 ) mGy, DLP = ( 603.30 ) mGycm TECHNIQUE: Transaxial imaging was performed without the administration of intravenous contrast material. Multiplanar coronal and sagittal images were reformatted. Individualized dose optimization techniques were used for this CT. COMPARISON: CT of the chest dated April 01, 2018. FINDINGS: Cardiac monitoring leads are present. Patient is intubated. The tip endotracheal tube is at the level of the aortic arch. Enteric tube is present with the distal tip within the stomach. There is hyperinflation of the lungs consistent with chronic obstructive lung disease (COPD). There is bilateral lower lobe airspace consolidation with air bronchograms. These are probably secondary to pneumonia. There are small bilateral pleural effusions. There is increased lucency within both upper lobes probably related to COPD. There is interstitial thickening present in both upper lobes. There is mild cardiac enlargement. There are calcifications of the coronary arteries. There are enlarged mediastinal lymph nodes. The largest pretracheal node measures approximately 2.9 x 1.8 x 1.7 cm in size. There are enlarged prevascular lymph nodes. Normal hilar regions. There is prominence of the pulmonary hilar arteries without peripheral pulmonary vascular congestion, suggesting pulmonary hypertension. There is atherosclerotic calcification of the aortic arch with tortuosity and elongation of the aortic arch and descending thoracic aorta. Maximum transverse dimension of the ascending thoracic aorta measures approximately 3.4 cm. There is demineralization of the thoracic spine. There is a mild increased thoracic kyphosis. There are multilevel degenerative changes of the thoracic spine. There is probable artifact in the region of the sternum mimicking a fracture of the manubrium. There is motion artifact mimicking rib fractures as well. There is deformity of several of the ribs and may be the result of previous rib fractures. There is no demonstrated abnormality of the visualized upper abdomen. CT/Chest without Contrast IMPRESSION: 1. Bilateral lower lobe airspace consolidations, atelectasis and pleural effusions likely secondary to pneumonia. 2. Emphysematous changes and subcortical pulmonary fibrosis. 3. Nonspecific pathologic mediastinal lymphadenopathy. Electronically Signed: Marivel Smart MD at 11:06 EST , Service support ,
--- NOTE | 2019-02-20 11:49 | CON.PCM_ITS ---
Reason for Consult Date of Consultation: 02/20/19 Reason for Consultation: Abnormal cardiac enzymes History of Present Illness: The patient is a 73 year old F with a past medical history significant for remote left main coronary artery stenting as well as extensive right coronary artery stenting a year ago who presented to the emergency room with shortness of breath progressive dyspnea on exertion and fatigue. She was eventually admitted with respiratory failure admitted to the intensive care unit and intubated. She was treated for sepsis. In the intensive care unit she needed to be sedated cardiac enzymes were noted to be progressively getting elevated as well as an echocardiogram was ordered. It demonstrated severely ventricular systolic dysfunction with an estimated ejection fraction of 20 to 25% with severe hypokinesis globally and apical akinesis. Cardiology was called for further evaluation and management. Of note was the fact that in March of this year she was admitted with shortness of breath and elevated troponin and she underwent a cardiac catheterization with demonstrated patency of her left main coronary artery, extensive right coronary artery stents were all patent with moderate disease noted in the diagonal vessel. At that time her ejection f raction was noted to be 50%. At the moment she is intubated and cannot provide any significant history. Her who is with can also not provide any definitive history because he says that he was not around. [] Past Medical History Allergies/Adverse Reactions: Allergies codeine Allergy (Unknown, Verified 09/12/18 01:10) nausea, hives morphine Allergy (Unknown, Verified 09/12/18 01:10) Nausea naproxen [From Naprosyn] Allergy (Unknown, Verified 09/12/18 01:10) Hives Sulfa (Sulfonamide Antibiotics) Allergy (Unknown, Verified 09/12/18 01:10) Hives albuterol Allergy (Verified 09/11/18 22:12) Rash fentanyl Adverse Reaction (Severe, Verified 09/12/18 01:10) Rash OD on Fentany patch. Very sensitive to does 75mcg patch lithium Adverse Reaction (Unknown, Verified 09/12/18 01:10) anger phenobarbital Adverse Reaction (Unknown, Verified 09/12/18 01:10) anger Iodine and Iodide Containing Produc Adverse Reaction (Verified 09/12/18 01:10) Hives ipratropium [From DuoNeb] Adverse Reaction (Verified 02/19/19 10:28) Hives Penicillins [PCN] Adverse Reaction (Verified 09/12/18 01:10) Hives Home Medications: Ambulatory Orders Medication Instructions Recorded Gabapentin [Neurontin] 600 mg PO TIDCM 07/13/14 cycloBENZAPRine HCl [Flexeril] 10 mg PO DAILY 07/13/14 Fluticasone/Vilanterol [Breo 1 ea IH DAILY 12/17/16 Ellipta 200-25 Mcg INH] Paroxetine HCl [Paxil] 40 mg PO DAILY 12/17/16 nitroglycerin 0.4 mg sublingual 0.4 mg SUBLINGUAL Q5M PRN #25 tab 03/25/17 tablet ranolazine 500 mg tablet,extended 500 mg PO BID #180 tab 03/25/17 release,12 hr clopidogrel 75 mg tablet 75 mg PO DAILY #90 tab 10/23/17 Cholecalciferol (Vitamin D3) 50,000 unit PO QWEEK 11/23/17 [Vitamin D3] Pantoprazole Sodium [Protonix] 20 mg PO BID 11/23/17 buPROPion SR [Wellbutrin SR (150mg 150 mg PO DAILY 11/23/17 tablets)] tiotropium bromide 2.5 2 puff INHALATION QDAY #1 ea 12/10/17 mcg/actuation mist for inhalation albuterol sulfate 90 mcg/actuation 2 puff INHALATION Q6H PRN #18 g 01/29/18 aerosol inhaler Aspirin [Aspirin, Baby] 81 mg PO DAILY@0800 03/30/18 Potassium Chloride [K-Dur] 20 meq PO BIDCM #20 tablet 04/05/18 Amlodipine Besylate 5 mg PO DAILY 09/11/18 Apixaban [Eliquis] 5 mg PO BID 09/11/18 Atorvastatin Calcium 80 mg PO DAILY 09/11/18 DiphenhydrAMINE [Benadryl] 25 mg PO Q6H PRN PRN 09/11/18 Fenofibrate [Tricor] 145 mg PO DAILY 09/11/18 Guaifenesin [Mucinex] 1 tab PO BID 09/11/18 Ipratropium [Atrovent Inhaler] 2 puff INHALATION 4X/DAY 09/11/18 Levalbuterol HCl 1 puff INHALATION 4X/DAY PRN PRN 09/11/18 Metoprolol Tartrate 25 mg PO BID 09/11/18 Prednisone 40 mg PO DAILY #10 tab 09/13/18 losartan 50 mg tablet 50 mg PO DAILY #90 tab 11/12/18 Isosorbide Mononitrate [Isosorbide 90 mg PO DAILY 02/19/19 Mononitrate ER] Past Medical History (Chronic Problems): Chronic Problems (Last Reviewed 08/01/18 @ 15:50 by Jackson Peter DO) COPD (chronic obstructive pulmonary disease) (Chronic) COPD with acute exacerbation (Chronic) Presence of stent in coronary artery (Chronic) PTCA/SUSAN to ostium of LMT 10/01/2014 @[facility]; PTCA/SUSAN of the mid/distal RCA 11/11/17 CAD (coronary artery disease) (Chronic) Successful PTCA/SUSAN of the of mid/distal RCA with a 2.25 x 38 Promus Synergy, post dilated proximally with a 3.0 x 12 NC balloon at 8 safia (2.5mm); 75%-->0%, no dissection. Successful PTCA/SUSAN of the proximal RCA with a 2.5 x 20 Promus Synergy, post dilated with a 3.0 x 12 at 14 safia; 75%-->0%, no dissection. Tobacco abuse (Chronic) Congestive heart failure (Chronic) Nonrheumatic tricuspid (valve) insufficiency (Chronic) Nonrheumatic mitral valve insufficiency (Chronic) Nicotine dependence, cigarettes, uncomplicated (Chronic) Hypertension (Chronic) Hyperlipidemia (Chronic) Atherosclerosis of [place] coronary artery of [place] heart without angina pectoris (Chronic) PTCA/SUSAN to ostium of LMT 10/01/2014 @[facility]; PTCA/SUSAN to mid/distal RCA and proximal RCA in November 2017 at [facility]; Peripheral vascular disease (Chronic) SOB (shortness of breath) (Chronic) Surgical History: appendectomy, - - cad with stent, this was carpal tunnel surgeries Psychiatric History: No pertinent psych hx [employer] History: No pertinent [employer] history - *Family History Maternal Family History: Family History (Last Reviewed 08/01/18 @ 15:50 by Jackson Peter DO) Mother CAD (coronary artery disease) Hypertension Sister CAD (coronary artery disease) Myocardial infarction History Items: Diabetes, Heart Disease, Stroke Paternal Family History: Family History (Last Reviewed 08/01/18 @ 15:50 by Jackson Peter DO) Mother CAD (coronary artery disease) Hypertension Sister CAD (coronary artery disease) Myocardial infarction History Items: Diabetes, Stroke Lives: With Family Smoking Status: Former smoker Tobacco Use: Cigarettes Alcohol: Occasional Drugs: None Review of Systems - Review of Systems General: Reports: Fever, Fatigue, Malaise. Denies: Night Sweats HEENT: Denies: Vision Change Cardiovascular: Reports: Shortness of Breath, Shortness of Breath at Rest, Shortness of Breath with Exertion. Denies: Chest Discomfort, Orthopnea, PND, Peripheral Edema, Palpitations, Lightheadedness, Dizziness, Near Syncope, Syncope Respiratory: Denies: Cough, Sputum Production, Hemoptysis Gastrointestinal: Denies: Hematemesis, Hematochezia, Melena Genitourinary: Denies: Dysuria, Hematuria Muscoloskeletal: Denies: Myalgias Skin: Denies: Rash Neurological: Denies: Dizziness Psychiatric: Denies: Anxiety Endocrine: Denies: Heat Intolerance Subjectve: Older lady intubated does not appear to be in any distress sedated Objective: Vital Signs Temp Pulse Resp BP Pulse Ox 98.8 F 121 H 27 H 123/88 H 96 02/20/19 06:00 02/20/19 07:32 02/20/19 07:32 02/20/19 07:32 02/20/19 07:32 Oxygen Flow Rate (L/min) 6 Oxygen Delivery Method Mechanical Ventilator Weight: 155 lb 10.342 oz Body Mass Index (BMI) 26.4 Intake and Output for Last 24 Hours 02/18/19 02/19/19 02/20/19 23:59 23:59 23:59 Intake Total 3585 / 3585 2019 Output Total 400 / 400 100 / 100 Balance 3185 / 3185 1919 General: Ill Appearing HEENT: PERRL, EOMI, Sclera Non Icteric Neck: Supple, Good ROM, No Lymph Node Enlargement Lungs: Clear to auscultation Cardiovascular: Regular Rhythm, Normal S1, Normal S2, No Murmurs, No Rubs, No Gallops Vascular: No Carotid Bruits, Normal Femoral Pulses, Normal Radial Pulses, Normal Dorsalis Pedal Pulse, Normal Posterior Tibial Pulses Abdomen: Bowel Sounds Present, Soft, Non Tender, No HSM, No Organomegaly Extremities: No Cyanosis, No Clubbing, No edema Musculoskeletal: No Erythema Skin: No Rashes Lymphatic: No Lymph Node Enlargement Neurological: No Focal Motor or Sensory Deficit Psych/Mental Status: Appropriate 02/19/19 13:55: Lactic Acid 1.9 02/20/19 04:10: WBC 12.2 H, RBC 4.30, Hgb 11.6 L, Hct 37.8, MCV 87.9, MCH 27.0, MCHC 30.7 L, Plt Count 338, MPV 9.8, Immature Gran % (Auto) 0.500, Neut % (Auto) 89.6 H, Lymph % (Auto) 8.5 L, [place] % (Auto) 1.3, Eos % (Auto) 0.0, Baso % (Auto) 0.1, Absolute Neuts (auto) 10.9 H, Nucleated RBC % 0 02/20/19 04:10: Sodium 144, Potassium 4.4, Chloride 114 H, Carbon Dioxide 23.0, Anion Gap 7, BUN 16, Creatinine 1.03 H, Est GFR (MDRD) Af Amer 67, Est GFR (MDRD) Non-Af 56 L, BUN/Creatinine Ratio 15.5, Glucose 135 H, Calcium 7.9 L 02/20/19 04:10: Troponin I 0.848 H* 02/20/19 04:10: B-Natriuretic Peptide 1435.3 H 02/20/19 04:52: pH 7.23 L, Bicarbonate Actual 17.4 L, POC Total CO2 19, Base Excess -10 L, O2 Saturation 88 L, ABG pCO2 41.4, ABG pO2 64 L, Angelo Test POS 02/20/19 09:23: pH 7.25 L, Bicarbonate Actual 21.8 L, POC Total CO2 23, Base Excess -5 L, O2 Saturation 88 L, ABG pCO2 49.4 H, ABG pO2 65 L, Angelo Test POS 02/20/19 09:30: Troponin I 0.930 H* Rhythm: EKG: Sinus tachycardia with nonspecific ST-T wave changes EKG this morning demonstrates normal sinus rhythm with anterior T wave inversions ECHO: Globally reduced left ventricular systolic function estimated at 20% with an akinetic apex Stress Test: Cardiac Cath: PCI: CT Surgery: Holter monitor: EPS: PPM: CXR: Chest CT Scan: Assessment/Plan 1. Non-ST elevation myocardial infarction * Patient appears to present with a non-ST elevation myocardial infarction. This is in the throes of a respiratory infection with bilateral pneumonia * My recommendation would be to continue to treat the underlying cause. Because of her significant left ventricular systolic dysfunction she will eventually need a left heart catheterization to assess her coronary anatomy especially as she has undergone remote left main stenting as well as right coronary artery stenting. * We will wait for her to be extubated to have this performed. * 2. Congestive heart failure-acute systolic * Patient appears to have systolic heart failure * I suspect the above is on the basis of ischemia. A Takutsobo reaction cannot be completely excluded but this would need to be confirmed via cardiac catheterization * 3. Left ventricular systolic dysfunction * Patient appears to have significant right ventricular systolic dysfunction whi ch is new. * After patient is extubated would continue to titrate her on beta-jenna and PENG inhibitor as appropriate * * Thank you for allowing me to participate in her care. *
[2019-02-20 13:04] LABS: CPK Total, Creatine Kinase 111 U/L (26-192)
[2019-02-20] MEDS: fentaNYL drip 100 ML 15 MCG IV ×2 (13:55→20:55)
[2019-02-20 14:16] LABS: Triglycerides 255 mg/dL
[2019-02-20] MEDS: Aspirin 81 MG TAB.CHEW GT (14:30)
[2019-02-20] MEDS: Famotidine 20 MG Tablet GT (14:31)
[2019-02-20] MEDS: Clopidogrel Bisulfate 75 MG Tablet GT (14:31)
[2019-02-20] MEDS: guaiFENesin 10 ML UDC (200MG/10ML) 60 ML GT ×2 (14:32→21:03)
[2019-02-20] MEDS: Fenofibrate 145 MG Tablet GT (14:33)
[2019-02-20] MEDS: buPROPion 75 MG Tablet GT ×2 (14:33→20:59)
[2019-02-20] MEDS: Chlorhexidine 15 ML PO ×2 (15:38→21:02)
[2019-02-20] MEDS: CHLORHEXIDINE GLUC 2% CLOTH 1 EACH TOWELETTE TOPICAL (19:39)
[2019-02-20 20:21] LABS: Bedside Glucose 103 mg/dL (70-110)
[2019-02-20] MEDS: Vital AF 1.2 Cal Liquid 1,000 ML 55 ML GT (20:37)
[2019-02-20] MEDS: Vancomycin IV 500 MG/100 ML BAG 100 MG IV (20:48)
[2019-02-20] MEDS: Atorvastatin Calcium 80 MG Tablet GT (20:59)
[2019-02-20] MEDS: APIXABAN 5 MG TABLET GT (20:59)
[2019-02-21] VITALS (40 sets, daily range): BP systolic 86–140; BP diastolic 48–89; PULSE 69–139; RESP 13–28; TEMP 37.6–38.6; O2SAT 90–100
[2019-02-21 00:21] LABS: Bedside Glucose 116 mg/dL (70-110)
--- NOTE | 2019-02-21 01:36 | CPS ---
Titrated PEEP from 5 - 8; meet pt.'s oxygenation demands
[2019-02-21] MEDS: Ipratropium 0.5 MG/2.5 ML SOLUTION INHALATION ×6 (03:20→22:21)
[2019-02-21 04:28] LABS: Absolute Lymphocyte Count 0.81 X10^3/uL (0.83-4.51); Absolute Neutrophil Count 16.4 X10^3/uL (2.0-7.7); Basophil# 0.02 X10^3/uL; Basophil% 0.1 % (0-1); Hematocrit 36.3 % (37-47); Hemoglobin 10.6 g/dL (12.0-15.0); Lymphocyte # 0.81 X10^3/ul (4.0); Lymphocyte % 4.5 % (19-41); Mean Corp Hgb Conc 29.2 g/dL (32-36); Mean Corpuscular Hgb 27.2 pg (27.0-32.0); Mean Corpuscular Volume 93.1 fL (81-99); Mean Platelet Vol. 9.7 fl (6.2-12.0); Monocyte# 0.39 X10^3/uL; Monocyte% 2.2 % (0-10); NRBC Flagged by Analyzer 0 % (0-5); Neutrophil # 16.44 X10^3/uL (2.7-7.7); Neutrophil % 91.6 % (47-70); Platelet Count 324 K/mm3 (150-450); RBC Distribution Width CV 15.6 % (11.6-14.6); RBC Distribution Width SD 52.6 fl (35.1-43.9)
[2019-02-21] MEDS: fentaNYL drip 100 ML 15 MCG IV ×3 (04:45→19:09)
[2019-02-21] MEDS: CHLORHEXIDINE GLUC 2% CLOTH 1 EACH TOWELETTE TOPICAL (04:46)
[2019-02-21 04:49] LABS: Anion Gap 5 (5-15); BUN 26 mg/dL (7-18); BUN/Creat Ratio 22.8 RATIO (10-20); Calcium,Total 7.8 mg/dL (8.5-10.1); Chloride 114 mmol/L (98-107); Creatinine, Serum 1.14 mg/dL (0.55-1.02); EST Glomerular Filtration Rate 50 mL/min (>60); Est Glom Filt Rate - Afr Amer 60 mL/min (>60); Estimated Creatinine Clearance 36.36 ml/min; Glucose 152 mg/dL (74-106); Potassium 4.5 mmol/L (3.5-5.1); Sodium Level 142 mmol/L (136-145)
--- NOTE | 2019-02-21 06:40 | PN_ITS ---
Subjective: The patient was seen and examined at the bedside this morning. Events from the last 24 hours have been reviewed. The patient has had low-grade fevers overnight with a T-max of 100.4 ?F. She remains hemodynamically stable, but is requiring 50% FiO2 and a PEEP of 8. The patient readily desaturates with any weaning of her sedation and with movement. The patient's troponins peaked yesterday at 0.930. Objective: The patient's most recent lab work, culture data and imaging studies have all been personally reviewed. CT chest without contrast did reveal bilateral lower lobe airspace disease with associated atelectasis and dependent pleural effusions. The patient does have significant upper lobe predominant emphyse matous changes. Unfortunately, evaluation of the patient's lower lobes for interstitial lung disease was obscured by the aforementioned airspace opacities. Surface echocardiogram revealed moderately severe segmental systolic dysfunction with an ejection fraction of 20%. Pulmonary artery systolic pressure was estimated to be 52 mmHg. Strep and urine Legionella antigens were negative. Respiratory viral panel was negative. Sputum and blood cultures are pending. General: - - Intubated, sedated and mechanically ventilated. HEENT: Atraumatic, Normocephalic Oral: No Gingival or Mucosal Lesions/ Ulcerations, - - Endotracheal and OG tubes currently in place Neck: Supple, No Nodes, Trachea Midline Lungs: No rhonchi, No wheeze, No rales, Diminished Cardiovascular: Regular rate, Regular Rhythm, Normal S1, Normal S2, No murmurs Abdomen: Bowel Sounds Present, Soft, Non Tender Extremities: No cyanosis, No edema, Clubbing Skin: No breakdown Musculoskeletal: No Tenderness to Palpation of Joints or Extremities Lymphatic: No Cervical, Supraclavicular, or Inguinal Adenopathy Neurological: - - No focal neurological deficits. Currently sedated, but arouses to verbal stimulation. RASS -1 Vital Signs Temp Pulse Resp BP Pulse Ox 100.1 F H 97 14 108/62 95 02/21/19 06:00 02/21/19 06:00 02/21/19 06:00 02/21/19 06:00 02/21/19 06:00 Oxygen Flow Rate (L/min) 6 Oxygen Delivery Method Mechanical Ventilator Weight: 155 lb 10.342 oz Body Mass Index (BMI) 26.4 Intake and Output for Last 24 Hours 02/19/19 02/20/19 02/21/19 23:59 23:59 23:59 Intake Total 3585 / 3585 3387.88 / 3572.08 263.15 / 263.15 Output Total 400 / 400 350 / 525 175 / 175 Balance 3185 / 3185 3037.88 / 3047.08 88.15 / 88.15 Labs (Last 48 Hours) 02/19/19 02/19/19 02/19/19 06:15 06:15 06:15 WBC RBC Hgb Hct MCV MCH MCHC RDW Std Deviation RDW Coeff of Abhinav Plt Count MPV Immature Gran % (Auto) Neut % (Auto) Lymph % (Auto) [place] % (Auto) Eos % (Auto) Baso % (Auto) Absolute Neuts (auto) Absolute Lymphs (auto) Nucleated RBC % Specimen Type Sample Site pH Bicarbonate Actual POC Total CO2 Base Excess O2 Saturation O2 % ABG pCO2 ABG pO2 Angelo Test Respiration Rate O2 Delivery Device Minute Volume Vent Mode Tidal Volume POC PEEP EPAP IPAP Blood Gas Notified Whom Blood Gas Notified Time Sodium 142 Potassium 3.8 Chloride 108 H Carbon Dioxide 26.0 Anion Gap 8 BUN 17 Creatinine 1.33 H Estim Creat Clear Calc 29.80 Est GFR (MDRD) Af Amer 50 L Est GFR (MDRD) Non-Af 42 L BUN/Creatinine Ratio 12.8 Glucose 234 H Lactic Acid 2.7 H* Calcium 9.2 Total Creatine Kinase Troponin I < 0.015 B-Natriuretic Peptide 125.2 H Triglycerides MRSA (PCR) POC Glucose 02/19/19 02/19/19 02/19/19 08:24 08:40 10:55 WBC RBC Hgb Hct MCV MCH MCHC RDW Std Deviation RDW Coeff of Abhinav Plt Count MPV Immature Gran % (Auto) Neut % (Auto) Lymph % (Auto) [place] % (Auto) Eos % (Auto) Baso % (Auto) Absolute Neuts (auto) Absolute Lymphs (auto) Nucleated RBC % Specimen Type ART Sample Site L Radial pH 7.32 L Bicarbonate Actual 22.3 POC Total CO2 24 Base Excess -4 L O2 Saturation 94 L O2 % 50 ABG pCO2 43.0 ABG pO2 79 Angelo Test POS Respiration Rate 14 O2 Delivery Device Bi / C PAP Minute Volume Vent Mode Tidal Volume POC PEEP EPAP 8 IPAP 15 Blood Gas Notified Whom ICU MD Blood Gas Notified Time 822 Sodium Potassium Chloride Carbon Dioxide Anion Gap BUN Creatinine Estim Creat Clear Calc Est GFR (MDRD) Af Amer Est GFR (MDRD) Non-Af BUN/Creatinine Ratio Glucose Lactic Acid 3.0 H* Calcium Total Creatine Kinase Troponin I B-Natriuretic Peptide Triglycerides MRSA (PCR) Negative POC Glucose 02/19/19 02/20/19 02/20/19 13:55 04:10 04:10 WBC 12.2 H RBC 4.30 Hgb 11.6 L Hct 37.8 MCV 87.9 MCH 27.0 MCHC 30.7 L RDW Std Deviation 47.4 H RDW Coeff of Abhinav 14.9 H Plt Count 338 MPV 9.8 Immature Gran % (Auto) 0.500 Neut % (Auto) 89.6 H Lymph % (Auto) 8.5 L [place] % (Auto) 1.3 Eos % (Auto) 0.0 Baso % (Auto) 0.1 Absolute Neuts (auto) 10.9 H Absolute Lymphs (auto) 1.04 Nucleated RBC % 0 Specimen Type Sample Site pH Bicarbonate Actual POC Total CO2 Base Excess O2 Saturation O2 % ABG pCO2 ABG pO2 Angelo Test Respiration Rate O2 Delivery Device Minute Volume Vent Mode Tidal Volume POC PEEP EPAP IPAP Blood Gas Notified Whom Blood Gas Notified Time Sodium 144 Potassium 4.4 Chloride 114 H Carbon Dioxide 23.0 Anion Gap 7 BUN 16 Creatinine 1.03 H Estim Creat Clear Calc 40.24 Est GFR (MDRD) Af Amer 67 Est GFR (MDRD) Non-Af 56 L BUN/Creatinine Ratio 15.5 Glucose 135 H Lactic Acid 1.9 Calcium 7.9 L Total Creatine Kinase Troponin I B-Natriuretic Peptide Triglycerides MRSA (PCR) POC Glucose 02/20/19 02/20/19 02/20/19 04:10 04:10 04:52 WBC RBC Hgb Hct MCV MCH MCHC RDW Std Deviation RDW Coeff of Abhinav Plt Count MPV Immature Gran % (Auto) Neut % (Auto) Lymph % (Auto) [place] % (Auto) Eos % (Auto) Baso % (Auto) Absolute Neuts (auto) Absolute Lymphs (auto) Nucleated RBC % Specimen Type ART Sample Site L Radial pH 7.23 L Bicarbonate Actual 17.4 L POC Total CO2 19 Base Excess -10 L O2 Saturation 88 L O2 % 40 ABG pCO2 41.4 ABG pO2 64 L Angelo Test POS Respiration Rate 12 O2 Delivery Device Bi / C PAP Minute Volume Vent Mode Tidal Volume POC PEEP EPAP 7 IPAP 14 Blood Gas Notified Whom ICU MD Blood Gas Notified Time 448 Sodium Potassium Chloride Carbon Dioxide Anion Gap BUN Creatinine Estim Creat Clear Calc Est GFR (MDRD) Af Amer Est GFR (MDRD) Non-Af BUN/Creatinine Ratio Glucose Lactic Acid Calcium Total Creatine Kinase Troponin I 0.848 H* B-Natriuretic Peptide 1435.3 H Triglycerides MRSA (PCR) POC Glucose 02/20/19 02/20/19 02/20/19 09:23 09:30 09:30 WBC RBC Hgb Hct MCV MCH MCHC RDW Std Deviation RDW Coeff of Abhinav Plt Count MPV Immature Gran % (Auto) Neut % (Auto) Lymph % (Auto) [place] % (Auto) Eos % (Auto) Baso % (Auto) Absolute Neuts (auto) Absolute Lymphs (auto) Nucleated RBC % Specimen Type ART Sample Site L Brachial pH 7.25 L Bicarbonate Actual 21.8 L POC Total CO2 23 Base Excess -5 L O2 Saturation 88 L O2 % 80 ABG pCO2 49.4 H ABG pO2 65 L Angelo Test POS Respiration Rate 12 O2 Delivery Device Vent Minute Volume 9.00 Vent Mode A-C Tidal Volume 400 POC PEEP 5 EPAP IPAP Blood Gas Notified Whom ICU MD Blood Gas Notified Time 922 Sodium Potassium Chloride Carbon Dioxide Anion Gap BUN Creatinine Estim Creat Clear Calc Est GFR (MDRD) Af Amer Est GFR (MDRD) Non-Af BUN/Creatinine Ratio Glucose Lactic Acid Calcium Total Creatine Kinase Troponin I 0.930 H* B-Natriuretic Peptide Triglycerides 255 H MRSA (PCR) POC Glucose 02/20/19 02/20/19 02/21/19 12:35 20:18 00:16 WBC RBC Hgb Hct MCV MCH MCHC RDW Std Deviation RDW Coeff of Abhinav Plt Count MPV Immature Gran % (Auto) Neut % (Auto) Lymph % (Auto) [place] % (Auto) Eos % (Auto) Baso % (Auto) Absolute Neuts (auto) Absolute Lymphs (auto) Nucleated RBC % Specimen Type Sample Site pH Bicarbonate Actual POC Total CO2 Base Excess O2 Saturation O2 % ABG pCO2 ABG pO2 Angelo Test Respiration Rate O2 Delivery Device Minute Volume Vent Mode Tidal Volume POC PEEP EPAP IPAP Blood Gas Notified Whom Blood Gas Notified Time Sodium Potassium Chloride Carbon Dioxide Anion Gap BUN Creatinine Estim Creat Clear Calc Est GFR (MDRD) Af Amer Est GFR (MDRD) Non-Af BUN/Creatinine Ratio Glucose Lactic Acid Calcium Total Creatine Kinase 111 Troponin I 0.919 H* B-Natriuretic Peptide Triglycerides MRSA (PCR) POC Glucose 103 116 H 02/21/19 02/21/19 04:20 04:20 WBC 18.0 H RBC 3.90 L Hgb 10.6 L Hct 36.3 L MCV 93.1 D MCH 27.2 MCHC 29.2 L RDW Std Deviation 52.6 H RDW Coeff of Abhinav 15.6 H Plt Count 324 MPV 9.7 Immature Gran % (Auto) 1.600 H Neut % (Auto) 91.6 H Lymph % (Auto) 4.5 L [place] % (Auto) 2.2 Eos % (Auto) 0.0 Baso % (Auto) 0.1 Absolute Neuts (auto) 16.4 H Absolute Lymphs (auto) 0.81 L Nucleated RBC % 0 Specimen Type Sample Site pH Bicarbonate Actual POC Total CO2 Base Excess O2 Saturation O2 % ABG pCO2 ABG pO2 Angelo Test Respiration Rate O2 Delivery Device Minute Volume Vent Mode Tidal Volume POC PEEP EPAP IPAP Blood Gas Notified Whom Blood Gas Notified Time Sodium 142 Potassium 4.5 Chloride 114 H Carbon Dioxide 23.0 Anion Gap 5 BUN 26 H Creatinine 1.14 H Estim Creat Clear Calc 36.36 Est GFR (MDRD) Af Amer 60 Est GFR (MDRD) Non-Af 50 L BUN/Creatinine Ratio 22.8 H Glucose 152 H Lactic Acid Calcium 7.8 L Total Creatine Kinase Troponin I B-Natriuretic Peptide Triglycerides MRSA (PCR) POC Glucose Microbiology 02/20/19 09:00 Sputum, Induced/[place]uk[place] Gram Stain - Final 02/19/19 17:20 Urine Catheter - Catheter Legionella Antigen - Final 02/19/19 13:39 Urine Catheter - Catheter Streptococcus pneumoniae Antigen (M - Final 02/19/19 06:30 Mucosa - Nasopharyngeal Respiratory Panel (PCR) - Final 02/19/19 06:30 Mucosa - Nasopharyngeal Influenza Types A,B Direct FA ([facility]ORY) - Final Clinical Impression(s) from Imaging Studies Chest X-Ray 02/19/19 06:05 IMPRESSION: Bilateral lower airspace disease superimposed upon moderately severe pulmonary fibrosis. Differential considerations include bronchitis versus pneumonia. Electronically Signed: Marivel Smart MD at 6:39 EST , Service support , Chest X-Ray 02/20/19 06:35 IMPRESSION: Stable bilateral interstitial pulmonary infiltrates with pulmonary scarring and likely pulmonary fibrosis; there may be acute infiltrates or pulmonary venous congestion in addition to the chronic interstitial fibrotic changes and/or progression of pulmonary fibrosis with no change when compared to most recent chest radiograph Upper lobe COPD changes Ill-defined 8 mm density right upper lobe scar versus pulmonary lesion CT chest follow-up recommended Electronically Signed: Mohsen Zhong at 7:15 EST Tel , Service support , KUB X-Ray 02/20/19 07:17 IMPRESSION: Appropriate positioning of enteric tube with the tip probably in the stomach. Electronically Signed: Marivel Smart MD at 9:42 EST , Service support , Chest X-Ray 02/20/19 07:40 IMPRESSION: 1. Appropriate positioning of endotracheal tube. 2. Heterogeneous bilateral basilar interstitial and air space consolidations may represent pneumonia. Electronically Signed: Marivel Smart MD at 8:59 EST , Service support , Chest CT 02/20/19 09:52 IMPRESSION: 1. Bilateral lower lobe airspace consolidations, atelectasis and pleural effusions likely secondary to pneumonia. 2. Emphysematous changes and subcortical pulmonary fibrosis. 3. Nonspecific pathologic mediastinal lymphadenopathy. Electronically Signed: Marivel Smart MD at 11:06 EST , Service support , Medical Necessity - Tobacco Use Smoking Status: Former smoker Tobacco Use: Cigarettes Assessment/Plan All Active Problems (Last Reviewed 08/01/18 @ 15:50 by Jackson Peter DO) Lower respiratory infection (Acute) Acute respiratory failure with hypoxia and hypercapnia (Acute) Pneumonia (Acute) Sepsis (Acute) Pulmonary embolism (Acute) Cholelithiasis NOS (Acute) Acute respiratory failure with hypoxia and hypercapnia (Acute) COPD with acute exacerbation (Acute) Gram-negative pneumonia (Acute) Acute hypercapnic respiratory failure (Acute) NSTEMI (non-ST elevated myocardial infarction) (Acute) COPD exacerbation (Acute) RECOMMENDATIONS: 1. Continue broad-spectrum antimicrobial coverage, pending infectious work-up. 2. Continue to wean FiO2 and PEEP to maintain oxygen saturations at or above 90%. 3. Continue bronchodilators and IV steroids. 4. Continue current sedation regimen. Goal to maintain a RASS of -1 to 1. 5. Continue tube feeds as ordered. 6. Continue Eliquis and Pepcid. IMPRESSIONS: 1. Acute on chronic combined respiratory failure likely secondary to COPD with exacerbation There is clinical concern for underlying community acquired pneumonia as precipitating etiology for the patient's exacerbation. However, it does appear that the patient has some baseline interstitial fibrosis, which was present on prior chest imaging, and appears to have progressed in the interim. Despite the use of noninvasive positive pressure ventilatory support, the patient continued to decompensate from a clinical perspective and did require intubation on the morning of February 20. Her antibiotics have been broadened accordingly. She will remain on bronchodilators and IV steroids. Continue to wean FiO2 and PEEP as tolerated. Continue tube feeds as ordered. 2. Severe sepsis likely secondary to community-acquired pneumonia Continue current supportive measures with bronchodilators, IV steroids and empiric antimicrobials. Infectious work-up is pending. 3. History of venous thromboembolic disease The patient does have a history of pulmonary emboli, for which she will be continued on Eliquis per outpatient regimen. 4. Troponin elevation/NSTEMI/Acute on Chronic Systolic Heart Failure/Pulmonary Hypertension Although initially felt to be secondary to demand ischemia, a review of the patient's repeat echocardiogram revealed worsening in her LV ejection fraction. Therefore, cardiology was consulted and is currently following to assist with medical management. The patient may require heart catheterization, pending improvement in clinical stability. 5. Chronic systolic heart failure/pulmonary hypertension Continue to hold home antihypertensive regimen, given tenuous hemodynamics. Recommend judicious use of supplemental IV fluids. 6. Tobacco dependency, currently in remission/hypertension/hyperlipidemia/peripheral vascular disease Complicates care, management, recovery and prognosis. Recommend holding antihypertensives, given tenuous hemodynamics. TIME: 40 minutes of critical care time, independent of procedures, was spent addressing the patient's acute on chronic combined respiratory failure, COPD with exacerbation, severe sepsis secondary to community-acquired pneumonia, history of venous thromboembolic disease, history of systolic heart failure, pulmonary hypertension, NSTEMI, review of all data and collaboration with care team. ([id number]) Code Visit [id number]: [id number] Critical care first hour
[2019-02-21 06:51] LABS: Bedside Glucose 139 mg/dL (70-110)
--- NOTE | 2019-02-21 07:02 | EKG12_ITS ---
Test Reason : INVERTED T WAVES Blood Pressure : / mmHG Vent. Rate : 093 BPM Atrial Rate : 093 BPM P-R Int : 176 ms QRS Dur : 090 ms QT Int : 450 ms P-R-T Axes : 034 -13 212 degrees QTc Int : 559 ms Normal sinus rhythm Anterior infarct , age undetermined ST & Marked T-wave abnormality, consider inferolateral ischemia Prolonged QT Abnormal ECG Confirmed by JOÃO IVEY, ANGIE ([id number]), story editor NORMA RODRIGUEZ ([id number]) on 02/24/2019 9:52:31 AM Referred By: HORTON Confirmed By:ANGIE MOYER MD
[2019-02-21] MEDS: Vancomycin IV 500 MG/100 ML BAG 100 MG IV ×2 (08:34→21:01)
[2019-02-21] MEDS: Aspirin 81 MG TAB.CHEW GT (08:34)
--- NOTE | 2019-02-21 08:42 | EKG12_ITS ---
Test Reason : ROUTINE Blood Pressure : / mmHG Vent. Rate : 093 BPM Atrial Rate : 093 BPM P-R Int : 152 ms QRS Dur : 080 ms QT Int : 346 ms P-R-T Axes : 064 002 077 degrees QTc Int : 430 ms Normal sinus rhythm Nonspecific ST and T wave abnormality Abnormal ECG Confirmed by PILAR IVEY, BETINA ([id number]), assistant editor NORMA RODRIGUEZ ([id number]) on 03/05/2019 11:32:04 AM Referred By: PILAR Confirmed By:BETINA QUEZADA MD
[2019-02-21] MEDS: Chlorhexidine 15 ML PO ×2 (09:47→21:11)
[2019-02-21] MEDS: Famotidine 20 MG Tablet GT (09:48)
[2019-02-21] MEDS: Fenofibrate 145 MG Tablet GT (09:48)
[2019-02-21] MEDS: Clopidogrel Bisulfate 75 MG Tablet GT (09:48)
[2019-02-21] MEDS: APIXABAN 5 MG TABLET GT ×2 (09:48→21:02)
[2019-02-21] MEDS: buPROPion 75 MG Tablet GT ×2 (09:48→21:03)
[2019-02-21] MEDS: Paroxetine 20 MG Tablet 40 MG GT (09:48)
--- NOTE | 2019-02-21 10:18 | PN_ITS ---
Patient Problems: Active and Suspected Problems (Last Reviewed 08/01/18 @ 15:50 by Jackson Peter DO) Acute respiratory failure with hypoxia and hypercapnia (Acute) Pneumonia (Acute) Sepsis (Acute) Subjective: Patient seen and examined. She remains intubated and sedated. HER-2 daughters were by bedside. She is on fentanyl and propofol for sedation and is heavily sedated. No active events overnight. She does have a fever this morning with temperature 100.2 ?F. She has however remained hemodynamically stable otherwise. WBC has trended up to 18 today. Vitals/I&O's: Vital Signs Temp Pulse Resp BP Pulse Ox 100.2 F H 94 14 102/57 L 95 02/21/19 09:00 02/21/19 09:27 02/21/19 09:27 02/21/19 09:00 02/21/19 09:27 Oxygen Flow Rate (L/min) 6 Oxygen Delivery Method Mechanical Ventilator Weight: 154 lb 8.705 oz Body Mass Index (BMI) 26.4 Intake and Output for Last 24 Hours 02/19/19 02/20/19 02/21/19 23:59 23:59 23:59 Intake Total 3585 / 3585 3387.88 / 3572.08 949.47 / 949.47 Output Total 400 / 400 350 / 525 475 / 475 Balance 3185 / 3185 3037.88 / 3047.08 474.47 / 474.47 General: intubated, sedated. RASS score is -4 HEENT: Atraumatic, PERRLA, EOMI, Normocephalic Oral: Dry Mucosa Neck: Supple, No JVD, Negative Carotid Bruits Lungs: - -breath sounds decreased bibasally, no wheezes or crackles. Intubated. Cardiovascular: Regular rate, Regular Rhythm, Normal S1, Normal S2, No murmurs Abdomen: Bowel Sounds Present, Soft, Non Tender Extremities: No clubbing, No cyanosis, No edema, Capillary Refill Less than 3 Seconds Skin: No rashes, No breakdown Musculoskeletal: No Tenderness to Palpation of Joints or Extremities Lymphatic: No Cervical, Supraclavicular, or Inguinal Adenopathy Neurological: Cranial nerves II-XII grossly intact, Neuro grossly intact, Motor Exam 5/5 strength throughout Psych/Mental Status: intubated, sedated. Microbiology Past 72 Hours 02/19/19 07:00 Blood Culture (Wb) #2 - Anticubital Right Blood Culture - Preliminary No growth in 48 hours. 02/19/19 06:15 Blood Culture (Wb) - Anticubital Right Blood Culture - Preliminary No growth in 48 hours. 02/20/19 09:00 Sputum, Induced/Lukens Gram Stain - Final 02/19/19 17:20 Urine Catheter - Catheter Legionella Antigen - Final 02/19/19 13:39 Urine Catheter - Catheter Streptococcus pneumoniae Antigen (M - Final 02/19/19 06:30 Mucosa - Nasopharyngeal Respiratory Panel (PCR) - Final 02/19/19 06:30 Mucosa - Nasopharyngeal Influenza Types A,B Direct FA (CORY) - Final Laboratory Results 02/20/19 09:30: Triglycerides 255 H 02/20/19 12:35: Total Creatine Kinase 111, Troponin I 0.919 H* 02/20/19 20:18: POC Glucose 103 02/21/19 00:16: POC Glucose 116 H 02/21/19 04:20: WBC 18.0 H, RBC 3.90 L, Hgb 10.6 L, Hct 36.3 L, MCV 93.1 D, MCH 27.2, MCHC 29.2 L, RDW Std Deviation 52.6 H, RDW Coeff of Abhinav 15.6 H, Plt Count 324, MPV 9.7, Immature Gran % (Auto) 1.600 H, Neut % (Auto) 91.6 H, Lymph % (Auto) 4.5 L, [place] % (Auto) 2.2, Eos % (Auto) 0.0, Baso % (Auto) 0.1, Absolute Neuts (auto) 16.4 H, Absolute Lymphs (auto) 0.81 L, Nucleated RBC % 0 02/21/19 04:20: Sodium 142, Potassium 4.5, Chloride 114 H, Carbon Dioxide 23.0, Anion Gap 5, BUN 26 H, Creatinine 1.14 H, Estim Creat Clear Calc 36.36, Est GFR (MDRD) Af Amer 60, Est GFR (MDRD) Non-Af 50 L, BUN/Creatinine Ratio 22.8 H, G lucose 152 H, Calcium 7.8 L 02/21/19 06:43: POC Glucose 139 H Diagnostic Data KUB X-Ray 02/20/19 07:17 IMPRESSION: Appropriate positioning of enteric tube with the tip probably in the stomach. Electronically Signed: Marivel Smart MD at 9:42 EST , Service support , Chest X-Ray 02/20/19 07:40 IMPRESSION: 1. Appropriate positioning of endotracheal tube. 2. Heterogeneous bilateral basilar interstitial and air space consolidations may represent pneumonia. Electronically Signed: Marivel Smart MD at 8:59 EST , Service support , Chest CT 02/20/19 09:52 IMPRESSION: 1. Bilateral lower lobe airspace consolidations, atelectasis and pleural effusions likely secondary to pneumonia. 2. Emphysematous changes and subcortical pulmonary fibrosis. 3. Nonspecific pathologic mediastinal lymphadenopathy. Electronically Signed: Marivel Smart MD at 11:06 EST , Service support , Current Medications Acetaminophen (Tylenol Liquid) 650 mg GT Q6H PRN PRN PRN Reason: Pain 1-3/10 or Fever >100.7 Apixaban (Eliquis) 5 mg GT BID [facility] Last Admin: 02/21/19 09:48 Dose: 5 mg Documented by: Aspirin (Aspirin, Baby) 81 mg GT DAILY@0800 [facility] Last Admin: 02/21/19 08:34 Dose: 81 mg Documented by: Atorvastatin Calcium (Lipitor) 80 mg GT QHS [facility] Last Admin: 02/20/19 20:59 Dose: 80 mg Documented by: Bupropion HCl (Wellbutrin Tablets) 75 mg GT BID [facility] Last Admin: 02/21/19 09:48 Dose: 75 mg Documented by: Chlorhexidine Gluconate () 1 each TOPICAL DAILY [facility] Last Admin: 02/21/19 04:46 Dose: 1 each Documented by: Chlorhexidine Gluconate () 15 ml PO BID [facility] Last Admin: 02/21/19 09:47 Dose: 15 ml Documented by: Clopidogrel Bisulfate (Plavix) 75 mg GT DAILY [facility] Last Admin: 02/21/19 09:48 Dose: 75 mg Documented by: Famotidine (Pepcid) 20 mg GT DAILY [facility] Last Admin: 02/21/19 09:48 Dose: 20 mg Documented by: Fenofibrate (Tricor) 145 mg GT DAILY [facility] Last Admin: 02/21/19 09:48 Dose: 145 mg Documented by: Glucagon () 1 mg IM .X1 PRN PRN Reason: Hypoglycemia Sodium Chloride () 250 mls @ 15 mls/hr IV .[id number] PRN PRN Reason: Saline Flush Last Infusion: 02/19/19 12:30 Dose: 0 mls/hr Documented by: Sodium Chloride () 250 mls @ 15 mls/hr IV .[id number] PRN PRN Reason: Additional IVPB Infusion Dextrose (Dextrose 10%-Water) 250 mls @ 999 mls/hr IV .Q16M PRN; Protocol PRN Reason: HYPOGLYCEMIA Cefepime HCl 2 gm/ Sodium (Chloride) 100 mls @ 200 mls/hr IV Q12 [facility] Last Admin: 02/21/19 09:48 Dose: 200 mls/hr Documented by: Vancomycin IV Pharmacy to Dose (1 ea/ Sodium Chloride) 500 mls @ 250 mls/hr IV PRN PRN; Protocol PRN Reason: Rx to Dose Propofol (Diprivan) 1,000 mg in 100 mls @ 4.236 mls/hr CONT INF .Q12H [facility]; Protocol Last Titration: 02/21/19 09:00 Dose: 20 mcg/kg/min, 8.5 mls/hr Documented by: Fentanyl () 100 mls @ 15 mls/hr IV UD [facility]; Protocol Last Titration: 02/21/19 07:00 Dose: 150 mcg/hr, 15 mls/hr Documented by: Vancomycin HCl () 500 mg in 100 mls @ 100 mls/hr IV Q12H [facility] Last Infusion: 02/21/19 09:54 Dose: Infused Documented by: Enteral Nutritional Formula (Vital Af 1.2 [place] Liquid) 1,000 mls @ 55 mls/hr GT .[id number] [facility] Last Admin: 02/21/19 10:13 Dose: Not Given Documented by: Insulin Human Lispro (Humalog Kwikpen (Bkc)) 0 unit SC Q6 [facility]; Protocol Last Admin: 02/21/19 06:47 Dose: Not Given Documented by: Ipratropium [place] (Atrovent) 0.5 mg INHALATION Q4H.RT [facility] Last Admin: 02/21/19 06:46 Dose: 0.5 mg Documented by: Methylprednisolone (Solu-Medrol) 40 mg IV Q8 [facility] Last Admin: 02/21/19 06:47 Dose: 40 mg Documented by: Nicotine (Nicoderm Cq (Pbkc)) 21 mg TRANSDERM. DAILY [facility] Last Admin: 02/21/19 09:48 Dose: 21 mg Documented by: Nitroglycerin (Nitrostat) 0.4 mg SUBLINGUAL Q5M PRN PRN Reason: CHEST Paroxetine HCl (Paxil) 40 mg GT DAILY [facility] Last Admin: 02/21/19 09:48 Dose: 40 mg Documented by: Potassium Chloride (Potassium Chl Soln) 20 meq GT BIDCM [facility] Last Admin: 02/21/19 08:34 Dose: 20 meq Documented by: Sodium Chloride () 10 - 40 ml IV UD PRN PRN Reason: SALINE FLUSH Last Admin: 02/20/19 21:08 Dose: 10 ml Documented by: STROKE Vital Signs/Narrative: Vital Signs Temp Pulse Resp BP Pulse Ox 02/21/19 09:27 94 14 95 02/21/19 09:00 100.2 F H 89 14 102/57 L 95 02/21/19 08:00 100.2 F H 100 15 117/63 96 02/21/19 07:54 102 H 02/21/19 07:00 100.2 F H 69 15 136/48 H 100 02/21/19 06:46 94 16 96 Medical Necessity - Tobacco Use Smoking Status: Former smoker Tobacco Use: Cigarettes Assessment/Plan All Active Problems (Last Reviewed 08/01/18 @ 15:50 by Jackson Peter DO) Lower respiratory infection (Acute) Acute respiratory failure with hypoxia and hypercapnia (Acute) Pneumonia (Acute) Sepsis (Acute) Pulmonary embolism (Acute) Cholelithiasis NOS (Acute) Acute respiratory failure with hypoxia and hypercapnia (Acute) COPD with acute exacerbation (Acute) Gram-negative pneumonia (Acute) Acute hypercapnic respiratory failure (Acute) NSTEMI (non-ST elevated myocardial infarction) (Acute) COPD exacerbation (Acute) 73 y/o admitted with a complaint of worsening shortness of breath 1. Acute on chronic hypoxic respiratory failure due to COPD exacerbation and community acquired pneumonia * remains intubated sedated * Currently on propofol and fentanyl for sedation * on IV cefepime and IV vancomycin * urine for strep and legionella are negative * blood cultures show no growth over 48 hours * sputum for gram stain and culture pending * continue breathing treatments * critical care on board * 2. Severe sepsis due to community acquired pneumonia * as under 1. * now on IV vancomycin and cefepime * lactic acidosis has resolved * critical care on board * 3. Acute sytolic heart failure, * BNP was 125 on admission but is now up to 1435. * 2D echo: EF of 20%, with moderately sevre segmental systolic dysfunction and regional wall motion abnormalities, moderate pulmonary hypertension * BP has been running low, so no diuresis * cardiology consulted; for cardiac cath once extubated * 4. NSTEMI * troponin on day after admission was 0.848, and trended upwards to 0.930- >0.919 * cardiology consulted: she will need a cardiac cath, which will be performed once she is extubated * 2D echo findings as under 3. * continue aspirin, statin and plavix. * on eliquis. * 5. COPD exacerbation: as under 1. 6. CAD s/p stents: on aspirin, statin and plavix. on imdur 7. Fibromyalgia: stable. 8. Hypertension and hyperlipidemia: on metoprolol and losartan. On statin. BP meds on hold o/a of hypotension 9. History of DVT: on eliquis 10. Nicotine dependence: On nicotine patch 21mg daily. DVT prophylaxis; on eliquis * COde status: full code * Code Visit Inpatient E&M: 48332 [facility] L3
[2019-02-21] MEDS: Propofol 10MG/Ml 1,000 MG/100 ML Bottle 6.4 MG CONT INF ×2 (11:45→21:55)
[2019-02-21 12:00] LABS: Bedside Glucose 127 mg/dL (70-110)
--- NOTE | 2019-02-21 12:45 | PN.CARD_ITS ---
Subjectve: 73-year-old white female with admitted for pneumonia with respiratory failure. She is still intubated on high flow of oxygen. 1 year ago, patient had stenting of the left main and right coronary artery. Echocardiogram done recently showed ejection fraction 25%. It was 50% in March. Troponin has been elevated. Patient has had stage III renal insufficiency. Patient is off IV pressor. Vital signs are normal Objective: Vital Signs Temp Pulse Resp BP Pulse Ox 100.2 F H 87 14 91/50 L 97 02/21/19 12:00 02/21/19 12:00 02/21/19 12:00 02/21/19 12:00 02/21/19 12:00 Oxygen Flow Rate (L/min) 6 Oxygen Delivery Method Mechanical Ventilator Weight: 154 lb 8.705 oz Body Mass Index (BMI) 26.4 Intake and Output for Last 24 Hours 02/19/19 02/20/19 02/21/19 23:59 23:59 23:59 Intake Total 3585 / 3585 3387.88 / 3572.08 1265.77 / 1265.77 Output Total 400 / 400 350 / 525 475 / 475 Balance 3185 / 3185 3037.88 / 3047.08 790.77 / 790.77 General: - - Intubated and sedated Lungs: - - Intubated with decreased air entry Cardiovascular: Regular Rhythm - Heart sounds distant, no gross murmur, normal neck vein Abdomen: Bowel Sounds Present, Soft Neurological: - - Sedated and intubated 02/20/19 09:30: Triglycerides 255 H 02/20/19 12:35: Troponin I 0.919 H* 02/21/19 04:20: WBC 18.0 H, RBC 3.90 L, Hgb 10.6 L, Hct 36.3 L, MCV 93.1 D, MCH 27.2, MCHC 29.2 L, Plt Count 324, MPV 9.7, Immature Gran % (Auto) 1.600 H, Neut % (Auto) 91.6 H, Lymph % (Auto) 4.5 L, [place] % (Auto) 2.2, Eos % (Auto) 0.0, Baso % (Auto) 0.1, Absolute Neuts (auto) 16.4 H, Nucleated RBC % 0 02/21/19 04:20: Sodium 142, Potassium 4.5, Chloride 114 H, Carbon Dioxide 23.0, Anion Gap 5, BUN 26 H, Creatinine 1.14 H, Est GFR (MDRD) Af Amer 60, Est GFR (MDRD) Non-Af 50 L, BUN/Creatinine Ratio 22.8 H, Glucose 152 H, Calcium 7.8 L Rhythm: EKG: EKG showed deep T wave inversion seen throughout the tracing ECHO: Ejection fraction decreased to 25% from 50% in March Stress Test: Cardiac Cath: PCI: CT Surgery: Holter monitor: EPS: PPM: CXR: Chest CT Scan: Medical Necessity - Tobacco Use Smoking Status: Former smoker Tobacco Use: Cigarettes Assessment/Plan #1 respiratory failure due to pneumonia, still intubated on high flow of oxygen #2 elevated troponin with deep T wave inversions seen throughout the tracing, patient had stenting of the left main and right coronary artery a year ago. This may represent type II myocardial infarct or progression of in-stent restenosis especially in the presence of marked decrease in ejection fraction Plan: At the moment patient is stable hemodynamically, cardiac catheterization will be considered early next week Code Visit Inpatient E&M: 06882 [facility] L2
[2019-02-21 17:36] LABS: Bedside Glucose 139 mg/dL (70-110)
[2019-02-21] MEDS: Vital AF 1.2 Cal Liquid 1,000 ML 55 ML GT (19:08)
[2019-02-21] MEDS: Acetaminophen 650 MG/20 ML UDC GT (19:46)
[2019-02-21] MEDS: Atorvastatin Calcium 80 MG Tablet GT (21:02)
[2019-02-21 23:46] LABS: Bedside Glucose 122 mg/dL (70-110)
[2019-02-22] VITALS (38 sets, daily range): BP systolic 93–156; BP diastolic 43–95; PULSE 79–126; RESP 14–38; TEMP 37.7–38.1; O2SAT 82–98
[2019-02-22] MEDS: fentaNYL drip 100 ML 12.5 MCG IV (01:42)
[2019-02-22] MEDS: Ipratropium 0.5 MG/2.5 ML SOLUTION INHALATION ×6 (03:16→23:00)
[2019-02-22] MEDS: CHLORHEXIDINE GLUC 2% CLOTH 1 EACH TOWELETTE TOPICAL (03:37)
[2019-02-22] MEDS: 0.9% Saline Lock 10 ML Syringe IV ×4 (04:22→18:01)
[2019-02-22 04:23] LABS: Absolute Lymphocyte Count 0.76 X10^3/uL (0.83-4.51); Basophil# 0.01 X10^3/uL; Basophil% 0.1 % (0-1); Eosinophil# 0.01 X10^3/uL; Eosinophils% 0.1 % (0-5); Hematocrit 31.4 % (37-47); Hemoglobin 9.4 g/dL (12.0-15.0); Lymphocyte # 0.76 X10^3/ul (4.0); Lymphocyte % 4.9 % (19-41); Mean Corp Hgb Conc 29.9 g/dL (32-36); Mean Corpuscular Hgb 27.2 pg (27.0-32.0); Mean Platelet Vol. 10.3 fl (6.2-12.0); Monocyte# 0.59 X10^3/uL; Monocyte% 3.8 % (0-10); NRBC Flagged by Analyzer 0.3 % (0-5); Neutrophil # 13.95 X10^3/uL (2.7-7.7); Neutrophil % 89.6 % (47-70); Platelet Count 261 K/mm3 (150-450); RBC Distribution Width CV 15.8 % (11.6-14.6); RBC Distribution Width SD 51.9 fl (35.1-43.9); Red Blood Count 3.45 M/mm3 (4.2-5.4); White Blood Count 15.6 K/mm3 (4.4-11.0)
[2019-02-22 04:32] LABS: Anion Gap 3 (5-15); BUN 31 mg/dL (7-18); BUN/Creat Ratio 33.4 RATIO (10-20); Calcium,Total 7.5 mg/dL (8.5-10.1); Chloride 110 mmol/L (98-107); Creatinine, Serum 0.93 mg/dL (0.55-1.02); EST Glomerular Filtration Rate 63 mL/min (>60); Est Glom Filt Rate - Afr Amer 76 mL/min (>60); Estimated Creatinine Clearance 44.57 ml/min; Glucose 136 mg/dL (74-106); Potassium 4.8 mmol/L (3.5-5.1); Sodium Level 140 mmol/L (136-145)
[2019-02-22] MEDS: TITRATION PARAMETER CHANGE 1 EACH IV (05:19)
[2019-02-22 05:21] LABS: Bedside Glucose 138 mg/dL (70-110)
--- NOTE | 2019-02-22 06:20 | PN_ITS ---
Subjective: The patient was seen and examined at the bedside this morning. Events from the last 24 hours have been reviewed. The patient is currently febrile with a T-max overnight of 101.4 ?F. She remains hemodynamically stable with an FiO2 requirement of 40%. The patient is currently documented to be overall net +7.2 L for the hospital admission. She did fail her spontaneous breathing trial this morning with the development of tachycardia, tachypnea and worsening hypoxia. She has been tolerating tube feeds at goal. Objective: The patient's most recent lab work, culture data and imaging studies have all been personally reviewed. CT chest without contrast did reveal bilateral lower lobe airspace disease with associated atelectasis and dependent pleural effusions. The patient does have significant upper lobe predominant emphysematous changes. Unfortunately, evaluation of the patient's lower lobes for interstitial lung disease was obscured by the aforementioned airspace opacities. Surface echocardiogram revealed moderately severe segmental systolic dysfunction with an ejection fraction of 20%. Pulmonary artery systolic pressure was estimated to be 52 mmHg. Strep and urine Legionella antigens were negative. Respiratory viral panel was negative. Sputum Gram stain revealed the presence of a gram-negative chantal. General: - - Remains intubated, sedated and mechanically ventilated. HEENT: Atraumatic, PERRLA, Normocephalic Oral: No Gingival or Mucosal Lesions/ Ulcerations, - - Endotracheal and OG tubes remain in place Neck: Supple, No Nodes, Trachea Midline Lungs: No rhonchi, No wheeze, No rales, Diminished Cardiovascular: Normal S1, Normal S2, No murmurs, Tachycardic Abdomen: Bowel Sounds Present, Soft, Non Tender Extremities: No cyanosis, Clubbing, Edema Skin: No breakdown Musculoskeletal: No Tenderness to Palpation of Joints or Extremities Lymphatic: No Cervical, Supraclavicular, or Inguinal Adenopathy Neurological: - - No focal neurological deficits. Moves all extremities spontaneously. Psych/Mental Status: Anxious Vital Signs Temp Pulse Resp BP Pulse Ox 100.0 F H 119 H 22 H 149/95 H 95 02/22/19 06:00 02/22/19 06:00 02/22/19 06:00 02/22/19 06:00 02/22/19 06:00 Oxygen Flow Rate (L/min) 6 Oxygen Delivery Method Mechanical Ventilator Weight: 157 lb 10.088 oz Body Mass Index (BMI) 26.4 Intake and Output for Last 24 Hours 02/20/19 02/21/19 02/22/19 23:59 23:59 23:59 Intake Total 3387.88 / 3572.08 2158.77 / 2180.17 580.17 / 580.17 Output Total 350 / 525 1375 / 1375 350 / 350 Balance 3037.88 / 3047.08 783.77 / 805.17 230.17 / 230.17 Labs (Last 48 Hours) 02/20/19 02/20/19 02/20/19 04:10 04:10 09:23 WBC RBC Hgb Hct MCV MCH MCHC RDW Std Deviation RDW Coeff of Abhinav Plt Count MPV Immature Gran % (Auto) Neut % (Auto) Lymph % (Auto) Mccormick % (Auto) Eos % (Auto) Baso % (Auto) Absolute Neuts (auto) Absolute Lymphs (auto) Nucleated RBC % Specimen Type ART Sample Site L Brachial pH 7.25 L Bicarbonate Actual 21.8 L POC Total CO2 23 Base Excess -5 L O2 Saturation 88 L O2 % 80 ABG pCO2 49.4 H ABG pO2 65 L Angelo Test POS Respiration Rate 12 O2 Delivery Device Vent Minute Volume 9.00 Vent Mode A-C Tidal Volume 400 POC PEEP 5 Blood Gas Notified Whom ICU MD Blood Gas Notified Time 922 Sodium Potassium Chloride Carbon Dioxide Anion Gap BUN Creatinine Estim Creat Clear Calc Est GFR (MDRD) Af Amer Est GFR (MDRD) Non-Af BUN/Creatinine Ratio Glucose Calcium Total Creatine Kinase Troponin I 0.848 H* B-Natriuretic Peptide 1435.3 H Triglycerides POC Glucose 02/20/19 02/20/19 02/20/19 09:30 09:30 12:35 WBC RBC Hgb Hct MCV MCH MCHC RDW Std Deviation RDW Coeff of Abhinav Plt Count MPV Immature Gran % (Auto) Neut % (Auto) Lymph % (Auto) Mccormick % (Auto) Eos % (Auto) Baso % (Auto) Absolute Neuts (auto) Absolute Lymphs (auto) Nucleated RBC % Specimen Type Sample Site pH Bicarbonate Actual POC Total CO2 Base Excess O2 Saturation O2 % ABG pCO2 ABG pO2 Angelo Test Respiration Rate O2 Delivery Device Minute Volume Vent Mode Tidal Volume POC PEEP Blood Gas Notified Whom Blood Gas Notified Time Sodium Potassium Chloride Carbon Dioxide Anion Gap BUN Creatinine Estim Creat Clear Calc Est GFR (MDRD) Af Amer Est GFR (MDRD) Non-Af BUN/Creatinine Ratio Glucose Calcium Total Creatine Kinase 111 Troponin I 0.930 H* 0.919 H* B-Natriuretic Peptide Triglycerides 255 H POC Glucose 02/20/19 02/21/19 02/21/19 20:18 00:16 04:20 WBC 18.0 H RBC 3.90 L Hgb 10.6 L Hct 36.3 L MCV 93.1 D MCH 27.2 MCHC 29.2 L RDW Std Deviation 52.6 H RDW Coeff of Abhinav 15.6 H Plt Count 324 MPV 9.7 Immature Gran % (Auto) 1.600 H Neut % (Auto) 91.6 H Lymph % (Auto) 4.5 L Mccormick % (Auto) 2.2 Eos % (Auto) 0.0 Baso % (Auto) 0.1 Absolute Neuts (auto) 16.4 H Absolute Lymphs (auto) 0.81 L Nucleated RBC % 0 Specimen Type Sample Site pH Bicarbonate Actual POC Total CO2 Base Excess O2 Saturation O2 % ABG pCO2 ABG pO2 Angelo Test Respiration Rate O2 Delivery Device Minute Volume Vent Mode Tidal Volume POC PEEP Blood Gas Notified Whom Blood Gas Notified Time Sodium Potassium Chloride Carbon Dioxide Anion Gap BUN Creatinine Estim Creat Clear Calc Est GFR (MDRD) Af Amer Est GFR (MDRD) Non-Af BUN/Creatinine Ratio Glucose Calcium Total Creatine Kinase Troponin I B-Natriuretic Peptide Triglycerides POC Glucose 103 116 H 02/21/19 02/21/19 02/21/19 04:20 06:43 11:57 WBC RBC Hgb Hct MCV MCH MCHC RDW Std Deviation RDW Coeff of Abhinav Plt Count MPV Immature Gran % (Auto) Neut % (Auto) Lymph % (Auto) Mccormick % (Auto) Eos % (Auto) Baso % (Auto) Absolute Neuts (auto) Absolute Lymphs (auto) Nucleated RBC % Specimen Type Sample Site pH Bicarbonate Actual POC Total CO2 Base Excess O2 Saturation O2 % ABG pCO2 ABG pO2 Angelo Test Respiration Rate O2 Delivery Device Minute Volume Vent Mode Tidal Volume POC PEEP Blood Gas Notified Whom Blood Gas Notified Time Sodium 142 Potassium 4.5 Chloride 114 H Carbon Dioxide 23.0 Anion Gap 5 BUN 26 H Creatinine 1.14 H Estim Creat Clear Calc 36.36 Est GFR (MDRD) Af Amer 60 Est GFR (MDRD) Non-Af 50 L BUN/Creatinine Ratio 22.8 H Glucose 152 H Calcium 7.8 L Total Creatine Kinase Troponin I B-Natriuretic Peptide Triglycerides POC Glucose 139 H 127 H 02/21/19 02/21/19 02/22/19 17:21 23:37 04:02 WBC 15.6 H RBC 3.45 L Hgb 9.4 L Hct 31.4 L MCV 91.0 MCH 27.2 MCHC 29.9 L RDW Std Deviation 51.9 H RDW Coeff of Abhinav 15.8 H Plt Count 261 MPV 10.3 Immature Gran % (Auto) 1.500 H Neut % (Auto) 89.6 H Lymph % (Auto) 4.9 L Mccormick % (Auto) 3.8 Eos % (Auto) 0.1 Baso % (Auto) 0.1 Absolute Neuts (auto) 14.0 H Absolute Lymphs (auto) 0.76 L Nucleated RBC % 0.3 Specimen Type Sample Site pH Bicarbonate Actual POC Total CO2 Base Excess O2 Saturation O2 % ABG pCO2 ABG pO2 Angelo Test Respiration Rate O2 Delivery Device Minute Volume Vent Mode Tidal Volume POC PEEP Blood Gas Notified Whom Blood Gas Notified Time Sodium Potassium Chloride Carbon Dioxide Anion Gap BUN Creatinine Estim Creat Clear Calc Est GFR (MDRD) Af Amer Est GFR (MDRD) Non-Af BUN/Creatinine Ratio Glucose Calcium Total Creatine Kinase Troponin I B-Natriuretic Peptide Triglycerides POC Glucose 139 H 122 H 02/22/19 02/22/19 04:02 05:12 WBC RBC Hgb Hct MCV MCH MCHC RDW Std Deviation RDW Coeff of Abhinav Plt Count MPV Immature Gran % (Auto) Neut % (Auto) Lymph % (Auto) Mccormick % (Auto) Eos % (Auto) Baso % (Auto) Absolute Neuts (auto) Absolute Lymphs (auto) Nucleated RBC % Specimen Type Sample Site pH Bicarbonate Actual POC Total CO2 Base Excess O2 Saturation O2 % ABG pCO2 ABG pO2 Angelo Test Respiration Rate O2 Delivery Device Minute Volume Vent Mode Tidal Volume POC PEEP Blood Gas Notified Whom Blood Gas Notified Time Sodium 140 Potassium 4.8 Chloride 110 H Carbon Dioxide 27.0 Anion Gap 3 L BUN 31 H Creatinine 0.93 Estim Creat Clear Calc 44.57 Est GFR (MDRD) Af Amer 76 Est GFR (MDRD) Non-Af 63 BUN/Creatinine Ratio 33.4 H Glucose 136 H Calcium 7.5 L Total Creatine Kinase Troponin I B-Natriuretic Peptide Triglycerides POC Glucose 138 H Microbiology 02/20/19 09:00 Sputum, Induced/Lukens Gram Stain - Final 02/20/19 09:00 Sputum, Induced/Lukens Respiratory Culture - Preliminary Gram negative chantal 02/19/19 07:00 Blood Culture (Wb) #2 - Anticubital Right Blood Culture - Preliminary No growth in 48 hours. 02/19/19 06:15 Blood Culture (Wb) - Anticubital Right Blood Culture - Preliminary No growth in 48 hours. Clinical Impression(s) from Imaging Studies Chest X-Ray 02/19/19 06:05 IMPRESSION: Bilateral lower airspace disease superimposed upon moderately severe pulmonary fibrosis. Differential considerations include bronchitis versus pneumonia. Electronically Signed: Marivel Smart MD at 6:39 EST , Service support , Chest X-Ray 02/20/19 06:35 IMPRESSION: Stable bilateral interstitial pulmonary infiltrates with pulmonary scarring and likely pulmonary fibrosis; there may be acute infiltrates or pulmonary venous congestion in addition to the chronic interstitial fibrotic changes and/or progression of pulmonary fibrosis with no change when compared to most recent chest radiograph Upper lobe COPD changes Ill-defined 8 mm density right upper lobe scar versus pulmonary lesion CT chest follow-up recommended Electronically Signed: Mohsen Zhong, at 7:15 EST Tel , Service support , KUB X-Ray 02/20/19 07:17 IMPRESSION: Appropriate positioning of enteric tube with the tip probably in the stomach. Electronically Signed: Marivel Smart MD at 9:42 EST , Service support , Chest X-Ray 02/20/19 07:40 IMPRESSION: 1. Appropriate positioning of endotracheal tube. 2. Heterogeneous bilateral basilar interstitial and air space consolidations may represent pneumonia. Electronically Signed: Marivel Smart MD at 8:59 EST , Service support , Chest CT 02/20/19 09:52 IMPRESSION: 1. Bilateral lower lobe airspace consolidations, atelectasis and pleural effusions likely secondary to pneumonia. 2. Emphysematous changes and subcortical pulmonary fibrosis. 3. Nonspecific pathologic mediastinal lymphadenopathy. Electronically Signed: Marivel Smart MD at 11:06 EST , Service support , Medical Necessity - Tobacco Use Smoking Status: Former smoker Tobacco Use: Cigarettes Assessment/Plan All Active Problems (Last Reviewed 08/01/18 @ 15:50 by Jackson Peter DO) Lower respiratory infection (Acute) Acute respiratory failure with hypoxia and hypercapnia (Acute) Pneumonia (Acute) Sepsis (Acute) Pulmonary embolism (Acute) Cholelithiasis NOS (Acute) Acute respiratory failure with hypoxia and hypercapnia (Acute) COPD with acute exacerbation (Acute) Gram-negative pneumonia (Acute) Acute hypercapnic respiratory failure (Acute) NSTEMI (non-ST elevated myocardial infarction) (Acute) COPD exacerbation (Acute) RECOMMENDATIONS: 1. Continue cefepime. Vancomycin can be discontinued from my perspective. 2. Continue to wean FiO2 and PEEP to maintain oxygen saturations at or above 90%. 3. Continue bronchodilators and IV steroids. 4. Continue current sedation regimen. Goal to maintain a RASS of -1 to 1. 5. Continue tube feeds as ordered. 6. Continue Eliquis and Pepcid. 7. Start scheduled Lasix 40 mg IV twice daily. IMPRESSIONS: 1. Acute on chronic combined respiratory failure likely secondary to COPD with exacerbation There is clinical concern for underlying community acquired pneumonia as precipitating etiology for the patient's exacerbation. However, it does appear that the patient has some baseline interstitial fibrosis, which was present on prior chest imaging, and appears to have progressed in the interim. Despite the use of noninvasive positive pressure ventilatory support, the patient continued to decompensate from a clinical perspective and did require intubation on the morning of February 20. The patient's sputum Gram stain was positive for the presence of a gram-negative chantal. Therefore, we will plan to continue the patient on cefepime. Vancomycin can be discontinued from my perspective. She will remain on bronchodilators and IV steroids. Continue to wean FiO2 and PEEP as tolerated. Continue tube feeds as ordered. The patient will also be started on twice daily IV Lasix beginning today. 2. Severe sepsis likely secondary to community-acquired pneumonia Continue current supportive measures with bronchodilators, IV steroids and empiric antimicrobials. 3. History of venous thromboembolic disease The patient does have a history of pulmonary emboli, for which she will be continued on Eliquis per outpatient regimen. 4. Troponin elevation/NSTEMI/Acute on Chronic Systolic Heart Failure/Pulmonary Hypertension Although initially felt to be secondary to demand ischemia, a review of the patient's repeat echocardiogram revealed worsening in her LV ejection fraction. Therefore, cardiology was consulted and is currently following to assist with medical management. The patient may require heart catheterization, pending improvement in clinical stability. 5. Chronic systolic heart failure/pulmonary hypertension Cardiology is currently following to assist with medical management. 6. Tobacco dependency, currently in remission/hypertensi on/hyperlipidemia/peripheral vascular disease Complicates care, management, recovery and prognosis. Physical therapy to work with the patient. TIME: 38 minutes of critical care time, independent of procedures, was spent addressing the patient's acute on chronic combined respiratory failure, COPD with exacerbation, severe sepsis secondary to community-acquired pneumonia, history of venous thromboembolic disease, history of systolic heart failure, pulmonary hypertension, NSTEMI, review of all data and collaboration with care team. ([id number]) Code Visit 9xxxx: [id number] Critical care first hour
[2019-02-22] MEDS: Furosemide 40 MG/4 ML Vial IV ×2 (06:59→18:01)
--- NOTE | 2019-02-22 07:37 | PN_ITS ---
Patient Problems: Active and Suspected Problems (Last Reviewed 08/01/18 @ 15:50 by Jackson Peter DO) Acute respiratory failure with hypoxia and hypercapnia (Acute) Pneumonia (Acute) Sepsis (Acute) Reason for Visit: Follow-up on respiratory failure, pneumonia Subjective: Patient was seen and examined. No acute events overnight. Remains intubated. On fentanyl and propofol. Telemetry shows deep T waves, persistent; T-max was 100.5F. Objective: Physical exam: General: intubated, sedated, pale, not jaundiced HEENT: Atraumatic, PERRLA, EOMI, Normocephalic Oral: Dry Mucosa Neck: Supple, No JVD, Negative Carotid Bruits Lungs: - -breath sounds decreased bibasally, no wheezes or crackles. Intubated. Cardiovascular: Regular rate, Regular Rhythm, Normal S1, Normal S2, No murmurs Abdomen: Bowel Sounds Present, Soft, Non Tender Extremities: No clubbing, No cyanosis, No edema, Capillary Refill Less than 3 Seconds Skin: No rashes, No breakdown Musculoskeletal: No Tenderness to Palpation of Joints or Extremities Lymphatic: No Cervical, Supraclavicular, or Inguinal Adenopathy Neurological: Cranial nerves II-XII grossly intact, Neuro grossly intact, Motor Exam 5/5 strength throughout Psych/Mental Status: intubated, sedated. Vitals/I&O's: Vital Signs Temp Pulse Resp BP Pulse Ox 100.0 F H 100 17 149/95 H 90 02/22/19 06:00 02/22/19 06:43 02/22/19 06:43 02/22/19 06:00 02/22/19 06:43 Oxygen Flow Rate (L/min) 6 Oxygen Delivery Method Mechanical Ventilator Weight: 71.5 kg Body Mass Index (BMI) 26.4 Intake and Output for Last 24 Hours 02/20/19 02/21/19 02/22/19 23:59 23:59 23:59 Intake Total 3387.88 / 3572.08 2158.77 / 2180.17 599.07 / 599.07 Output Total 350 / 525 1375 / 1375 350 / 350 Balance 3037.88 / 3047.08 783.77 / 805.17 249.07 / 249.07 Microbiology Past 72 Hours 02/20/19 09:00 Sputum, Induced/Lukens Gram Stain - Final 02/20/19 09:00 Sputum, Induced/Lukens Respiratory Culture - Preliminary Gram negative chantal 02/19/19 07:00 Blood Culture (Wb) #2 - Anticubital Right Blood Culture - Preliminary No growth in 48 hours. 02/19/19 06:15 Blood Culture (Wb) - Anticubital Right Blood Culture - Preliminary No growth in 48 hours. 02/19/19 17:20 Urine Catheter - Catheter Legionella Antigen - Final 02/19/19 13:39 Urine Catheter - Catheter Streptococcus pneumoniae Antigen (M - Final 02/19/19 06:30 Mucosa - Nasopharyngeal Respiratory Panel (PCR) - Final 02/19/19 06:30 Mucosa - Nasopharyngeal Influenza Types A,B Direct FA (CORY) - Final Laboratory Results 02/21/19 11:57: POC Glucose 127 H 02/21/19 17:21: POC Glucose 139 H 02/21/19 23:37: POC Glucose 122 H 02/22/19 04:02: WBC 15.6 H, RBC 3.45 L, Hgb 9.4 L, Hct 31.4 L, MCV 91.0, MCH 27 .2, MCHC 29.9 L, RDW Std Deviation 51.9 H, RDW Coeff of Abhinav 15.8 H, Plt Count 261, MPV 10.3, Immature Gran % (Auto) 1.500 H, Neut % (Auto) 89.6 H, Lymph % (Auto) 4.9 L, [place] % (Auto) 3.8, Eos % (Auto) 0.1, Baso % (Auto) 0.1, Absolute Neuts (auto) 14.0 H, Absolute Lymphs (auto) 0.76 L, Nucleated RBC % 0.3 02/22/19 04:02: Sodium 140, Potassium 4.8, Chloride 110 H, Carbon Dioxide 27.0, Anion Gap 3 L, BUN 31 H, Creatinine 0.93, Estim Creat Clear Calc 44.57, Est GFR (MDRD) Af Amer 76, Est GFR (MDRD) Non-Af 63, BUN/Creatinine Ratio 33.4 H, Glucose 136 H, Calcium 7.5 L 02/22/19 05:12: POC Glucose 138 H Current Medications Acetaminophen (Tylenol Liquid) 650 mg GT Q6H PRN PRN PRN Reason: Pain 1-3/ or Fever >100.7 Last Admin: 02/21/19 19:46 Dose: 650 mg Documented by: Apixaban (Eliquis) 5 mg GT BID [facility] Last Admin: 02/21/19 21:02 Dose: 5 mg Documented by: Aspirin (Aspirin, Baby) 81 mg GT DAILY@0800 [facility] Last Admin: 02/21/19 08:34 Dose: 81 mg Documented by: Atorvastatin Calcium (Lipitor) 80 mg GT QHS [facility] Last Admin: 02/21/19 21:02 Dose: 80 mg Documented by: Bupropion HCl (Wellbutrin Tablets) 75 mg GT BID [facility] Last Admin: 02/21/19 21:03 Dose: 75 mg Documented by: Chlorhexidine Gluconate () 1 each TOPICAL DAILY [facility] Last Admin: 02/22/19 03:37 Dose: 1 each Documented by: Chlorhexidine Gluconate () 15 ml PO BID [facility] Last Admin: 02/21/19 21:11 Dose: 15 ml Documented by: Clopidogrel Bisulfate (Plavix) 75 mg GT DAILY [facility] Last Admin: 02/21/19 09:48 Dose: 75 mg Documented by: Famotidine (Pepcid) 20 mg GT DAILY [facility] Last Admin: 02/21/19 09:48 Dose: 20 mg Documented by: Fenofibrate (Tricor) 145 mg GT DAILY [facility] Last Admin: 02/21/19 09:48 Dose: 145 mg Documented by: Furosemide (Lasix) 40 mg IV BID@1000,1800 [facility] Last Admin: 02/22/19 06:59 Dose: 40 mg Documented by: Glucagon () 1 mg IM .X1 PRN PRN Reason: Hypoglycemia Sodium Chloride () 250 mls @ 15 mls/hr IV .[id number] PRN PRN Reason: Saline Flush Last Infusion: 02/22/19 00:12 Dose: 0 mls/hr Documented by: Sodium Chloride () 250 mls @ 15 mls/hr IV .[id number] PRN PRN Reason: Additional IVPB Infusion Dextrose (Dextrose 10%-Water) 250 mls @ 999 mls/hr IV .Q16M PRN; Protocol PRN Reason: HYPOGLYCEMIA Cefepime HCl 2 gm/ Sodium (Chloride) 100 mls @ 200 mls/hr IV Q12 [facility] Last Infusion: 02/21/19 22:51 Dose: Infused Documented by: Vancomycin IV Pharmacy to Dose (1 ea/ Sodium Chloride) 500 mls @ 250 mls/hr IV PRN PRN; Protocol PRN Reason: Rx to Dose Propofol (Diprivan) 1,000 mg in 100 mls @ 4.29 mls/hr CONT INF .Q12H NAIF; Protocol Last Admin: 02/22/19 07:34 Dose: Not Given Documented by: Fentanyl () 100 mls @ 15 mls/hr IV UD NAIF; Protocol Last Admin: 02/22/19 07:34 Dose: Not Given Documented by: Vancomycin HCl () 500 mg in 100 mls @ 100 mls/hr IV Q12H NAIF Last Infusion: 02/21/19 22:01 Dose: Infused Documented by: Enteral Nutritional Formula (Vital Af 1.2 [place] Liquid) 1,000 mls @ 55 mls/hr GT .[id number] NAIF Last Admin: 02/22/19 03:19 Dose: Not Given Documented by: Insulin Human Lispro (Humalog Kwikpen (Bkc)) 0 unit SC Q6 NAIF; Protocol Last Admin: 02/22/19 05:13 Dose: Not Given Documented by: Ipratropium Wishram (Atrovent) 0.5 mg INHALATION Q4H.RT NAIF Last Admin: 02/22/19 06:43 Dose: 0.5 mg Documented by: Methylprednisolone (Solu-Medrol) 40 mg IV Q8 NAIF Last Admin: 02/22/19 05:13 Dose: 40 mg Documented by: Nicotine (Nicoderm Cq (Pbkc)) 21 mg TRANSDERM. DAILY NAIF Last Admin: 02/21/19 09:48 Dose: 21 mg Documented by: Nitroglycerin (Nitrostat) 0.4 mg SUBLINGUAL Q5M PRN PRN Reason: CHEST Paroxetine HCl (Paxil) 40 mg GT DAILY NA[facility] Last Admin: 02/21/19 09:48 Dose: 40 mg Documented by: Potassium Chloride (Potassium Chl Soln) 20 meq GT BIDCM NAIF Last Admin: 02/21/19 17:23 Dose: 20 meq Documented by: Sodium Chloride () 10 - 40 ml IV UD PRN PRN Reason: SALINE FLUSH Last Admin: 02/22/19 04:22 Dose: 30 ml Documented by: STROKE Vital Signs/Narrative: Vital Signs Temp Pulse Resp BP Pulse Ox 02/22/19 06:43 100 17 90 02/22/19 06:00 100.0 F H 119 H 22 H 149/95 H 95 02/22/19 05:20 94 16 96 02/22/19 05:00 100.3 F H 95 17 102/60 96 02/22/19 04:00 100.5 F H 126 H 31 H 109/66 94 Medical Necessity - Tobacco Use Smoking Status: Former smoker Tobacco Use: Cigarettes Assessment/Plan All Active Problems (Last Reviewed 08/01/18 @ 15:50 by Jackson Peter DO) Lower respiratory infection (Acute) Acute respiratory failure with hypoxia and hypercapnia (Acute) Pneumonia (Acute) Sepsis (Acute) Pulmonary embolism (Acute) Cholelithiasis NOS (Acute) Acute respiratory failure with hypoxia and hypercapnia (Acute) COPD with acute exacerbation (Acute) Gram-negative pneumonia (Acute) Acute hypercapnic respiratory failure (Acute) NSTEMI (non-ST elevated myocardial infarction) (Acute) COPD exacerbation (Acute) 73 y/o female with past medical history of chronic severe interstitial fibrosis admitted with a complaint of worsening shortness of breath 1. Acute on chronic hypoxic respiratory failure secondary to acute COPD exacerbation/community acquired pneumonia Remains intubated, on mechanical ventilator Perinatal Tech following 2. Severe sepsis due to community acquired pneumonia Blood cultures are negative, influenza screen negative, respiratory panel negative, urine streptococcal and Legionella antigen negative Sputum cultures growing gram-negative chantal We will continue antibiotics 3. Acute systolic heart failure, EF 20%, improving, No edema on exam Continue on Lasix IV BID 4. NSTEMI, medically being managed now History of CAD s/p stents Continue on aspirin, plavix, statin, Imdur Cardiac cath planned for next week 5. Acute COPD exacerbation, improving, Management as in #1 6. Hypertension, BP meds on hold Will continue to monitor 7. History of DVT, continue on eliquis 8. Nicotine dependence, on replacement. 9. DVT prophylaxis- on eliquis 10. Code status: full code Code Visit Inpatient E&M: 20975 Subs Hosp L2
[2019-02-22] MEDS: fentaNYL drip 100 ML 17.5 MCG IV ×3 (09:22→21:02)
[2019-02-22] MEDS: Aspirin 81 MG TAB.CHEW GT (10:05)
[2019-02-22] MEDS: Chlorhexidine 15 ML PO ×2 (10:05→21:14)
[2019-02-22] MEDS: APIXABAN 5 MG TABLET GT ×2 (10:05→21:09)
[2019-02-22] MEDS: Famotidine 20 MG Tablet GT (10:07)
[2019-02-22] MEDS: Clopidogrel Bisulfate 75 MG Tablet GT (10:10)
[2019-02-22] MEDS: buPROPion 75 MG Tablet GT ×2 (10:11→21:09)
[2019-02-22] MEDS: Fenofibrate 145 MG Tablet GT (10:11)
[2019-02-22] MEDS: Senna/Docusate Sodium 1 Tablet 2 TABLET GT ×2 (10:14→21:09)
[2019-02-22] MEDS: Propofol 10MG/Ml 1,000 MG/100 ML Bottle 8.6 MG CONT INF (10:29)
--- NOTE | 2019-02-22 10:42 | PN.CARD_ITS ---
Subjectve: Patient still intubated for pneumonia, respiratory failure with hypoxemia and hypercapnia. She failed weaning today. She is back on FiO2 of 40%. Ejection fraction drop to 25% from 50% in March. Patient had stenting of the left main and right coronary artery in the past. Renal function is reasonable today. Patient has had non-STEMI and possibly type II myocardial infarct. There were deep T wave inversions seen throughout the tracing Objective: Vital Signs Temp Pulse Resp BP Pulse Ox 99.9 F H 93 16 104/54 L 98 02/22/19 08:00 02/22/19 09:15 02/22/19 09:15 02/22/19 08:00 02/22/19 09:15 Oxygen Flow Rate (L/min) 6 Oxygen Delivery Method Mechanical Ventilator Weight: 157 lb 10.088 oz Body Mass Index (BMI) 26.4 Intake and Output for Last 24 Hours 02/20/19 02/21/19 02/22/19 23:59 23:59 23:59 Intake Total 3387.88 / 3572.08 2158.77 / 2180.17 677.55 / 677.55 Output Total 350 / 525 1375 / 1375 350 / 350 Balance 3037.88 / 3047.08 783.77 / 805.17 327.55 / 327.55 General: - - Intubated Lungs: - - Intubated with decreased air entry Cardiovascular: Regular Rhythm - Heart sounds distant, neck veins difficult to assess Abdomen: Bowel Sounds Present, Soft, Non Tender Extremities: No edema Neurological: - - Intubated and sedated 02/22/19 04:02: WBC 15.6 H, RBC 3.45 L, Hgb 9.4 L, Hct 31.4 L, MCV 91.0, MCH 27.2, MCHC 29.9 L, Plt Count 261, MPV 10.3, Immature Gran % (Auto) 1.500 H, Neut % (Auto) 89.6 H, Lymph % (Auto) 4.9 L, [place] % (Auto) 3.8, Eos % (Auto) 0.1, Baso % (Auto) 0.1, Absolute Neuts (auto) 14.0 H, Nucleated RBC % 0.3 02/22/19 04:02: Sodium 140, Potassium 4.8, Chloride 110 H, Carbon Dioxide 27.0, Anion Gap 3 L, BUN 31 H, Creatinine 0.93, Est GFR (MDRD) Af Amer 76, Est GFR (MDRD) Non-Af 63, BUN/Creatinine Ratio 33.4 H, Glucose 136 H, Calcium 7.5 L Rhythm: EKG: ECHO: Stress Test: Cardiac Cath: PCI: CT Surgery: Holter monitor: EPS: PPM: CXR: Chest CT Scan: Medical Necessity - Tobacco Use Smoking Status: Former smoker Tobacco Use: Cigarettes Assessment/Plan #1 respiratory failure due to pneumonia with hypoxemia and hypercapnia, still intubated on 40 percent of oxygen #2 elevated troponin with deep T wave inversions seen throughout the tracing, patient had stenting of the left main and right coronary artery a year ago. This may represent type II myocardial infarct or progression of in-stent restenosis especially in the presence of marked decrease in ejection fraction Plan: At the moment patient is stable hemodynamically, cardiac catheterization will be considered early next week when the sepsis is stabilized. We will con tinue to monitor renal function and electrolytes
[2019-02-22] MEDS: Insulin Lispro 100 UNIT/ML INSULN.PEN SC (11:37)
[2019-02-22 11:40] LABS: Bedside Glucose 156 mg/dL (70-110)
[2019-02-22] MEDS: Vital AF 1.2 Cal Liquid 1,000 ML 55 ML GT (15:57)
[2019-02-22] MEDS: Polyethylene Glycol 3350 17 GM PACKET GT (15:59)
[2019-02-22 17:35] LABS: Bedside Glucose 132 mg/dL (70-110)
[2019-02-22] MEDS: Propofol 10MG/Ml 1,000 MG/100 ML Bottle 6.4 MG CONT INF (21:02)
[2019-02-22] MEDS: Atorvastatin Calcium 80 MG Tablet GT (21:09)
[2019-02-22 23:41] LABS: Bedside Glucose 132 mg/dL (70-110)
[2019-02-23] VITALS (39 sets, daily range): BP systolic 85–135; BP diastolic 42–91; PULSE 75–153; RESP 14–32; TEMP 37.9–39.3; O2SAT 85–100
[2019-02-23] MEDS: CHLORHEXIDINE GLUC 2% CLOTH 1 EACH TOWELETTE TOPICAL (02:13)
[2019-02-23] MEDS: TITRATION PARAMETER CHANGE 1 EACH IV (02:37)
[2019-02-23] MEDS: fentaNYL drip 100 ML 17.5 MCG IV ×4 (03:05→19:36)
[2019-02-23] MEDS: Ipratropium 0.5 MG/2.5 ML SOLUTION INHALATION ×6 (03:45→22:53)
[2019-02-23 04:10] LABS: Absolute Lymphocyte Count 1.02 X10^3/uL (0.83-4.51); Absolute Neutrophil Count 12.4 X10^3/uL (2.0-7.7); Basophil# 0.01 X10^3/uL; Basophil% 0.1 % (0-1); Hematocrit 32.7 % (37-47); Lymphocyte # 1.02 X10^3/ul (4.0); Mean Corp Hgb Conc 30.6 g/dL (32-36); Mean Corpuscular Volume 88.4 fL (81-99); Mean Platelet Vol. 10.6 fl (6.2-12.0); Monocyte# 0.84 X10^3/uL; Monocyte% 5.8 % (0-10); NRBC Flagged by Analyzer 0.2 % (0-5); Neutrophil % 85.4 % (47-70); Platelet Count 300 K/mm3 (150-450); RBC Distribution Width CV 15.4 % (11.6-14.6); RBC Distribution Width SD 49.4 fl (35.1-43.9); White Blood Count 14.5 K/mm3 (4.4-11.0)
[2019-02-23 04:20] LABS: Anion Gap 4 (5-15); BUN 37 mg/dL (7-18); BUN/Creat Ratio 34.9 RATIO (10-20); Calcium,Total 7.6 mg/dL (8.5-10.1); Chloride 102 mmol/L (98-107); Creatinine, Serum 1.06 mg/dL (0.55-1.02); EST Glomerular Filtration Rate 54 mL/min (>60); Est Glom Filt Rate - Afr Amer 65 mL/min (>60); Glucose 153 mg/dL (74-106); Potassium 4.1 mmol/L (3.5-5.1); Sodium Level 138 mmol/L (136-145)
[2019-02-23] MEDS: 0.9% Saline Lock 10 ML Syringe IV ×5 (05:25→23:38)
[2019-02-23 05:35] LABS: Bedside Glucose 133 mg/dL (70-110)
--- NOTE | 2019-02-23 06:15 | PCM.PN.INT ---
Subjective: The patient was seen and examined at the bedside this morning. Events from the last 24 hours have been reviewed. The patient continues to have low-grade fevers with a T-max overnight of 100.7 ?F. Nevertheless, she remains hemodynamically stable. FiO2 requirement is currently 40%. Creatinine is stable. The patient was placed on Lasix yesterday and was noted to be net -2.5 L. However, the patient remains overall net +4.5 L for the hospital admission. The patient once again failed her spontaneous breathing trial this morning, after she developed significant tachycardia, tachypnea and hypoxemia. She becomes extremely anxious and agitated with weaning of sedation. Objective: The patient's most recent lab work, culture data and imaging studies have all been personally reviewed. CT chest without contrast did reveal bilateral lower lobe airspace disease with associated atelectasis and dependent pleural effusions. The patient does have significant upper lobe predominant emphysematous changes. Unfortunately, evaluation of the patient's lower lobes for interstitial lung disease was obscured by the aforementioned airspace opacities. Surface echocardiogram revealed moderately severe segmental systolic dysfunction with an ejection fraction of 20%. Pulmonary artery systolic pressure was estimated to be 52 mmHg. Strep and urine Legionella antigens were negative. Respiratory viral panel was negative. Sputum Gram stain revealed the presence of a gram-negative chantal. General: - - Remains intubated, sedated and mechanically ventilated. HEENT: Atraumatic, PERRLA, Normocephalic Oral: No Gingival or Mucosal Lesions/ Ulcerations, - - Endotracheal and OG tubes remain in place Neck: Supple, No Nodes, Trachea Midline Lungs: No rhonchi, No wheeze, No rales, Diminished Cardiovascular: Regular rate, Regular Rhythm, Normal S1, Normal S2, No murmurs Abdomen: Bowel Sounds Present, Soft, Non Tender Extremities: No cyanosis, Clubbing, Edema Skin: - - No significant change from previous Musculoskeletal: No Tenderness to Palpation of Joints or Extremities Lymphatic: No Cervical, Supraclavicular, or Inguinal Adenopathy Neurological: - - No focal neurological deficits. Currently sedated. Psych/Mental Status: - - Anxious with weaning of sedation. Vital Signs Temp Pulse Resp BP Pulse Ox 100.4 F H 90 14 103/49 L 94 02/23/19 06:00 02/23/19 06:00 02/23/19 06:00 02/23/19 06:00 02/23/19 06:00 Oxygen Flow Rate (L/min) 6 Oxygen Delivery Method Mechanical Ventilator Weight: 158 lb 4.67 oz Body Mass Index (BMI) 26.4 Intake and Output for Last 24 Hours 02/21/19 02/22/19 02/23/19 23:59 23:59 23:59 Intake Total 2158.77 / 2180.17 2554.39 / 2578.29 587.38 / 587.38 Output Total 1375 / 1375 5125 / 5125 450 / 450 Balance 783.77 / 805.17 -2570.61 / -2546.71 137.38 / 137.38 Labs (Last 48 Hours) 02/21/19 02/21/19 02/21/19 06:43 11:57 17:21 WBC RBC Hgb Hct MCV MCH MCHC RDW Std Deviation RDW Coeff of Abhinav Plt Count MPV Immature Gran % (Auto) Neut % (Auto) Lymph % (Auto) [place] % (Auto) Eos % (Auto) Baso % (Auto) Absolute Neuts (auto) Absolute Lymphs (auto) Nucleated RBC % Sodium Potassium Chloride Carbon Dioxide Anion Gap BUN Creatinine Estim Creat Clear Calc Est GFR (MDRD) Af Amer Est GFR (MDRD) Non-Af BUN/Creatinine Ratio Glucose Calcium POC Glucose 139 H 127 H 139 H 02/21/19 02/22/19 02/22/19 23:37 04:02 04:02 WBC 15.6 H RBC 3.45 L Hgb 9.4 L Hct 31.4 L MCV 91.0 MCH 27.2 MCHC 29.9 L RDW Std Deviation 51.9 H RDW Coeff of Abhinav 15.8 H Plt Count 261 MPV 10.3 Immature Gran % (Auto) 1.500 H Neut % (Auto) 89.6 H Lymph % (Auto) 4.9 L [place] % (Auto) 3.8 Eos % (Auto) 0.1 Baso % (Auto) 0.1 Absolute Neuts (auto) 14.0 H Absolute Lymphs (auto) 0.76 L Nucleated RBC % 0.3 Sodium 140 Potassium 4.8 Chloride 110 H Carbon Dioxide 27.0 Anion Gap 3 L BUN 31 H Creatinine 0.93 Estim Creat Clear Calc 44.57 Est GFR (MDRD) Af Amer 76 Est GFR (MDRD) Non-Af 63 BUN/Creatinine Ratio 33.4 H Glucose 136 H Calcium 7.5 L POC Glucose 122 H 02/22/19 02/22/19 02/22/19 05:12 11:33 17:29 WBC RBC Hgb Hct MCV MCH MCHC RDW Std Deviation RDW Coeff of Abhinav Plt Count MPV Immature Gran % (Auto) Neut % (Auto) Lymph % (Auto) [place] % (Auto) Eos % (Auto) Baso % (Auto) Absolute Neuts (auto) Absolute Lymphs (auto) Nucleated RBC % Sodium Potassium Chloride Carbon Dioxide Anion Gap BUN Creatinine Estim Creat Clear Calc Est GFR (MDRD) Af Amer Est GFR (MDRD) Non-Af BUN/Creatinine Ratio Glucose Calcium POC Glucose 138 H 156 H 132 H 02/22/19 02/23/19 02/23/19 23:39 03:50 03:50 WBC 14.5 H RBC 3.70 L Hgb 10.0 L Hct 32.7 L MCV 88.4 MCH 27.0 MCHC 30.6 L RDW Std Deviation 49.4 H RDW Coeff of Abhinav 15.4 H Plt Count 300 MPV 10.6 Immature Gran % (Auto) 1.700 H Neut % (Auto) 85.4 H Lymph % (Auto) 7.0 L [place] % (Auto) 5.8 Eos % (Auto) 0.0 Baso % (Auto) 0.1 Absolute Neuts (auto) 12.4 H Absolute Lymphs (auto) 1.02 Nucleated RBC % 0.2 Sodium 138 Potassium 4.1 Chloride 102 Carbon Dioxide 32.0 Anion Gap 4 L BUN 37 H Creatinine 1.06 H Estim Creat Clear Calc 39.10 Est GFR (MDRD) Af Amer 65 Est GFR (MDRD) Non-Af 54 L BUN/Creatinine Ratio 34.9 H Glucose 153 H Calcium 7.6 L POC Glucose 132 H 02/23/19 05:33 WBC RBC Hgb Hct MCV MCH MCHC RDW Std Deviation RDW Coeff of Abhinav Plt Count MPV Immature Gran % (Auto) Neut % (Auto) Lymph % (Auto) [place] % (Auto) Eos % (Auto) Baso % (Auto) Absolute Neuts (auto) Absolute Lymphs (auto) Nucleated RBC % Sodium Potassium Chloride Carbon Dioxide Anion Gap BUN Creatinine Estim Creat Clear Calc Est GFR (MDRD) Af Amer Est GFR (MDRD) Non-Af BUN/Creatinine Ratio Glucose Calcium POC Glucose 133 H Microbiology 02/20/19 09:00 Sputum, Induced/Lukens Gram Stain - Final 02/20/19 09:00 Sputum, Induced/Lukens Respiratory Culture - Final Pseudomonas aeroginosa 02/19/19 07:00 Blood Culture (Wb) #2 - Anticubital Right Blood Culture - Preliminary No growth in 48 hours. 02/19/19 06:15 Blood Culture (Wb) - Anticubital Right Blood Culture - Preliminary No growth in 48 hours. Clinical Impression(s) from Imaging Studies Chest X-Ray 02/19/19 06:05 IMPRESSION: Bilateral lower airspace disease superimposed upon moderately severe pulmonary fibrosis. Differential considerations include bronchitis versus pneumonia. Electronically Signed: Marivel Smart MD at 6:39 EST , Service support , Chest X-Ray 02/20/19 06:35 IMPRESSION: Stable bilateral interstitial pulmonary infiltrates with pulmonary scarring and likely pulmonary fibrosis; there may be acute infiltrates or pulmonary venous congestion in addition to the chronic interstitial fibrotic changes and/or progression of pulmonary fibrosis with no change when compared to most recent chest radiograph Upper lobe COPD changes Ill-defined 8 mm density right upper lobe scar versus pulmonary lesion CT chest follow-up recommended Electronically Signed: Mohsen Zhong, at 7:15 EST Tel , Service support , KUB X-Ray 02/20/19 07:17 IMPRESSION: Appropriate positioning of enteric tube with the tip probably in the stomach. Electronically Signed: Marivel Smart MD at 9:42 EST , Service support , Chest X-Ray 02/20/19 07:40 IMPRESSION: 1. Appropriate positioning of endotracheal tube. 2. Heterogeneous bilateral basilar interstitial and air space consolidations may represent pneumonia. Electronically Signed: Marivel Smart MD at 8:59 EST , Service support , Chest CT 02/20/19 09:52 IMPRESSION: 1. Bilateral lower lobe airspace consolidations, atelectasis and pleural effusions likely secondary to pneumonia. 2. Emphysematous changes and subcortical pulmonary fibrosis. 3. Nonspecific pathologic mediastinal lymphadenopathy. Electronically Signed: Marivel Smart MD at 11:06 EST , Service support , Medical Necessity - Tobacco Use Smoking Status: Former smoker Tobacco Use: Cigarettes Assessment/Plan All Active Problems (Last Reviewed 08/01/18 @ 15:50 by Jackson Peter DO) Lower respiratory infection (Acute) Acute respiratory failure with hypoxia and hypercapnia (Acute) Pneumonia (Acute) Sepsis (Acute) Pulmonary embolism (Acute) Cholelithiasis NOS (Acute) Acute respiratory failure with hypoxia and hypercapnia (Acute) COPD with acute exacerbation (Acute) Gram-negative pneumonia (Acute) Acute hypercapnic respiratory failure (Acute) NSTEMI (non-ST elevated myocardial infarction) (Acute) COPD exacerbation (Acute) RECOMMENDATIONS: 1. Continue cefepime. 2. Transition from propofol to Precedex to facilitate weaning from invasive mechanical ventilatory support. Start Seroquel 25 mg twice daily. 3. Continue to wean FiO2 and PEEP to maintain oxygen saturations at or above 90%. 4. Continue bronchodilators and IV steroids. 5. Continue tube feeds as ordered. 6. Continue Eliquis and Pepcid. 7. Continue scheduled Lasix 40 mg IV twice daily. IMPRESSIONS: 1. Acute on chronic combined respiratory failure likely secondary to COPD with exacerbation There is clinical concern for underlying community acquired pneumonia as precipitating etiology for the patient's exacerbation. However, it does appear that the patient has some baseline interstitial fibrosis, which was present on prior chest imaging, and appears to have progressed in the interim. Despite the use of noninvasive positive pressure ventilatory support, the patient continued to decompensate from a clinical perspective and did require intubation on the morning of February 20. The patient's sputum culture turned positive for pseudomonas aeruginosa. Therefore, we will plan to continue the patient on cefepime. She will remain on bronchodilators and IV steroids. Continue to wean FiO2 and PEEP as tolerated. Continue tube feeds as ordered. The patient will be continued on twice daily Lasix. Her propofol will be transitioned to Precedex today to help facilitate weaning from invasive mechanical ventilatory support. 2. Severe sepsis secondary to pseudomonal pneumonia Continue current supportive measures with bronchodilators, IV steroids and antimicrobials. 3. History of venous thromboembolic disease The patient does have a history of pulmonary emboli, for which she will be continued on Eliquis per outpatient regimen. 4. Troponin elevation/NSTEMI/Acute on Chronic Systolic Heart Failure/Pulmonary Hypertension Although initially felt to be secondary to demand ischemia, a review of the patient's repeat echocardiogram revealed worsening in her LV ejection fraction. Therefore, cardiology was consulted and is currently following to assist with medical management. The patient may require heart catheterization, pending improvement in clinical stability. 5. Chronic systolic heart failure/pulmonary hypertension Cardiology is currently following to assist with medical management. 6. Tobacco dependency, currently in remission/hypertension/hyperlipidemia/peripheral vascular disease Complicates care, management, recovery and prognosis. Physical therapy to work with the patient. TIME: 39 minutes of critical care time, independent of procedures, was spent addressing the patient's acute on chronic combined respiratory failure, COPD with exacerbation, severe sepsis secondary to community-acquired pneumonia, history of venous thromboembolic disease, history of systolic heart failure, pulmonary hypertension, NSTEMI, review of all data and collaboration with care team. ([id number]) Code Visit 9xxxx: 92120 Critical care first hour
--- NOTE | 2019-02-23 08:51 | PCM.PN.HOSP ---
Patient Problems: Active and Suspected Problems (Last Reviewed 08/01/18 @ 15:50 by Jackson Peter DO) Acute respiratory failure with hypoxia and hypercapnia (Acute) Pneumonia (Acute) Sepsis (Acute) Reason for Visit: Follow-up on respiratory failure Subjective: Patient was seen and examined. Remains intubated. Failed spontaneous breathing trial. Remains delirious. Started on Precedex drip. Objective: Physical exam: General: intubated, not following commands, moves around in bed, pale, not jaundiced HEENT: Atraumatic, PERRLA, EOMI, Normocephalic Oral: Dry Mucosa Neck: Supple, No JVD, Negative Carotid Bruits Lungs: - -breath sounds decreased bibasally, no wheezes or crackles. Intubated. Cardiovascular: Regular rate, Regular Rhythm, Normal S1, Normal S2, No murmurs Abdomen: Bowel Sounds Present, Soft, Non Tender Extremities: No clubbing, No cyanosis, No edema, Capillary Refill Less than 3 Seconds Skin: No rashes, No breakdown Musculoskeletal: No Tenderness to Palpation of Joints or Extremities Lymphatic: No Cervical, Supraclavicular, or Inguinal Adenopathy Neurological: Cranial nerves II-XII grossly intact, Neuro grossly intact, Motor Exam 5/5 strength throughout Psych/Mental Status: intubated, on sedation, not following commands Vitals/I&O's: Vital Signs Temp Pulse Resp BP Pulse Ox 100.4 F H 89 14 103/49 L 98 02/23/19 06:00 02/23/19 06:41 02/23/19 06:41 02/23/19 06:00 02/23/19 06:41 Oxygen Flow Rate (L/min) 6 Oxygen Delivery Method Mechanical Ventilator Weight: 71.8 kg Body Mass Index (BMI) 26.4 Intake and Output for Last 24 Hours 02/21/19 02/22/19 02/23/19 23:59 23:59 23:59 Intake Total 2158.77 / 2180.17 2554.39 / 2578.29 637.63 / 637.63 Output Total 1375 / 1375 5125 / 5125 450 / 450 Balance 783.77 / 805.17 -2570.61 / -2546.71 187.63 / 187.63 Microbiology Past 72 Hours 02/20/19 09:00 Sputum, Induced/Lukens Gram Stain - Final 02/20/19 09:00 Sputum, Induced/Lukens Respiratory Culture - Final Pseudomonas aeroginosa 02/19/19 07:00 Blood Culture (Wb) #2 - Anticubital Right Blood Culture - Preliminary No growth in 48 hours. 02/19/19 06:15 Blood Culture (Wb) - Anticubital Right Blood Culture - Preliminary No growth in 48 hours. Laboratory Results 02/22/19 11:33: POC Glucose 156 H 02/22/19 17:29: POC Glucose 132 H 02/22/19 23:39: POC Glucose 132 H 02/23/19 03:50: WBC 14.5 H, RBC 3.70 L, Hgb 10.0 L, Hct 32.7 L, MCV 88.4, MCH 27.0, MCHC 30.6 L, RDW Std Deviation 49.4 H, RDW Coeff of Abhinav 15.4 H, Plt Count 300, MPV 10.6, Immature Gran % (Auto) 1.700 H, Neut % (Auto) 85.4 H, Lymph % (Auto) 7.0 L, [place] % (Auto) 5.8, Eos % (Auto) 0.0, Baso % (Auto) 0.1, Absolute Neuts (auto) 12.4 H, Absolute Lymphs (auto) 1.02, Nucleated RBC % 0.2 02/23/19 03:50: Sodium 138, Potassium 4.1, Chloride 102, Carbon Dioxide 32.0, Anion Gap 4 L, BUN 37 H, Creatinine 1.06 H, Estim Creat Clear Calc 39.10, Est GFR (MDRD) Af Amer 65, Est GFR (MDRD) Non-Af 54 L, BUN/Creatinine Ratio 34.9 H, Glucose 153 H, Calcium 7.6 L 02/23/19 05:33: POC Glucose 133 H Current Medications Acetaminophen (Tylenol Liquid) 650 mg GT Q6H PRN PRN PRN Reason: Pain 1-3/10 or Fever >100.7 Last Admin: 02/21/19 19:46 Dose: 650 mg Documented by: Apixaban (Eliquis) 5 mg GT BID [facility] Last Admin: 02/22/19 21:09 Dose: 5 mg Documented by: Aspirin (Aspirin, Baby) 81 mg GT DAILY@0800 [facility] Last Admin: 02/22/19 10:05 Dose: 81 mg Documented by: Atorvastatin Calcium (Lipitor) 80 mg GT QHS [facility] Last Admin: 02/22/19 21:09 Dose: 80 mg Documented by: Bupropion HCl (Wellbutrin Tablets) 75 mg GT BID [facility] Last Admin: 02/22/19 21:09 Dose: 75 mg Documented by: Chlorhexidine Gluconate () 1 each TOPICAL DAILY [facility] Last Admin: 02/23/19 02:13 Dose: 1 each Documented by: Chlorhexidine Gluconate () 15 ml PO BID [facility] Last Admin: 02/22/19 21:14 Dose: 15 ml Documented by: Clopidogrel Bisulfate (Plavix) 75 mg GT DAILY [facility] Last Admin: 02/22/19 10:10 Dose: 75 mg Documented by: Famotidine (Pepcid) 20 mg GT DAILY [facility] Last Admin: 02/22/19 10:07 Dose: 20 mg Documented by: Fenofibrate (Tricor) 145 mg GT DAILY [facility] Last Admin: 02/22/19 10:11 Dose: 145 mg Documented by: Furosemide (Lasix) 40 mg IV BID@1000,1800 [facility] Last Admin: 02/22/19 18:01 Dose: 40 mg Documented by: Glucagon () 1 mg IM .X1 PRN PRN Reason: Hypoglycemia Sodium Chloride () 250 mls @ 15 mls/hr IV .[id number] PRN PRN Reason: Saline Flush Last Infusion: 02/22/19 22:07 Dose: 0 mls/hr Documented by: Sodium Chloride () 250 mls @ 15 mls/hr IV .[id number] PRN PRN Reason: Additional IVPB Infusion Dextrose (Dextrose 10%-Water) 250 mls @ 999 mls/hr IV .Q16M PRN; Protocol PRN Reason: HYPOGLYCEMIA Cefepime HCl 2 gm/ Sodium (Chloride) 100 mls @ 200 mls/hr IV Q12 [facility] Last Infusion: 02/22/19 21:33 Dose: Infused Documented by: Fentanyl () 100 mls @ 15 mls/hr IV UD [facility]; Protocol Last Titration: 02/23/19 08:00 Dose: 175 mcg/hr, 17.5 mls/hr Documented by: Enteral Nutritional Formula (Vital Af 1.2 [place] Liquid) 1,000 mls @ 55 mls/hr GT .[id number] NAIF Last Admin: 02/22/19 15:57 Dose: 55 mls/hr Documented by: Dexmedetomidine HCl 400 mcg/ (Sodium Chloride) 100 mls @ 8.975 mls/hr CONT INF .Q11H9M NAIF; Protocol Last Admin: 02/23/19 08:30 Dose: 0.5 mcg/kg/hr, 9 mls/hr Documented by: Insulin Human Lispro (Humalog Kwikpen (Bkc)) 0 unit SC Q6 NAIF; Protocol Last Admin: 02/23/19 05:33 Dose: Not Given Documented by: Ipratropium [place] (Atrovent) 0.5 mg INHALATION Q4H.RT [facility] Last Admin: 02/23/19 06:40 Dose: 0.5 mg Documented by: Methylprednisolone (Solu-Medrol) 40 mg IV Q8 NAIF Last Admin: 02/23/19 05:25 Dose: 40 mg Documented by: Nicotine (Nicoderm Cq (Pbkc)) 21 mg TRANSDERM. DAILY [facility] Last Admin: 02/22/19 10:06 Dose: 21 mg Documented by: Nitroglycerin (Nitrostat) 0.4 mg SUBLINGUAL Q5M PRN PRN Reason: CHEST Paroxetine HCl (Paxil) 40 mg GT DAILY [facility] Last Admin: 02/22/19 10:07 Dose: Not Given Documented by: Polyethylene Glycol (Miralax) 17 gm GT DAILY PRN PRN Reason: Constipation Last Admin: 02/22/19 15:59 Dose: 17 gm Documented by: Potassium Chloride (Potassium Chl Soln) 20 meq GT BIDCM [facility] Last Admin: 02/22/19 16:00 Dose: 20 meq Documented by: Senna/Docusate Sodium (Senokot-S, [place]-Colace) 2 tablet GT BID [facility] Last Admin: 02/22/19 21:09 Dose: 2 tablet Documented by: Sodium Chloride () 10 - 40 ml IV UD PRN PRN Reason: SALINE FLUSH Last Admin: 02/23/19 05:25 Dose: 20 ml Documented by: STROKE Vital Signs/Narrative: Vital Signs Temp Pulse Resp BP Pulse Ox 02/23/19 06:41 111 H 14 98 02/23/19 06:00 100.4 F H 90 14 103/49 L 94 02/23/19 05:37 92 14 93 02/23/19 05:00 100.4 F H 97 15 91/49 L 92 Medical Necessity - Tobacco Use Smoking Status: Former smoker Tobacco Use: Cigarettes Assessment/Plan All Active Problems (Last Reviewed 08/01/18 @ 15:50 by Jackson Peter DO) Lower respiratory infection (Acute) Acute respiratory failure with hypoxia and hypercapnia (Acute) Pneumonia (Acute) Sepsis (Acute) Pulmonary embolism (Acute) Cholelithiasis NOS (Acute) Acute respiratory failure with hypoxia and hypercapnia (Acute) COPD with acute exacerbation (Acute) Gram-negative pneumonia (Acute) Acute hypercapnic respiratory failure (Acute) NSTEMI (non-ST elevated myocardial infarction) (Acute) COPD exacerbation (Acute) 73 y/o female with past medical history of chronic severe interstitial fibrosis admitted with a complaint of worsening shortness of breath 1. Acute on chronic hypoxic respiratory failure secondary to acute COPD exacerbation/pseudomonas pneumonia Remains intubated, on mechanical ventilator Gravity Flow Irrigator following 2. Severe sepsis due to pseudomonas pneumonia Blood cultures are negative, influenza screen negative, respiratory panel negative, urine streptococcal and Legionella antigen negative Sputum cultures growing pseudomonas We will continue antibiotics 3. Acute systolic heart failure, EF 20%, improving, No edema on exam, diuresed >5L urine yesterday Continue on Lasix IV BID 4. NSTEMI, medically being managed now History of CAD s/p stents Continue on aspirin, plavix, statin, Imdur Cardiac cath planned when stable and extubated 5. Acute COPD exacerbation, improving, Management as in #1 6. Hypertension, BP meds on hold Will continue to monitor 7. History of DVT, continue on eliquis 8. Nicotine dependence, on replacement. 9. DVT prophylaxis- on eliquis 10. Code status: full code Code Visit Inpatient E&M: 00483 Subs Hosp L2
[2019-02-23 09:43] LABS: AST(SGOT) 30 U/L (15-37); Alanine Aminotransfer ALT/SGPT 20 U/L (13-56); Alkaline Phosphatase 65 U/L (45-117); Bilirubin, Direct 0.13 mg/dL (0.00-0.30); Globulin 3.5 g/dL (2.2-4.2); Protein, Total 6.5 g/dL (6.4-8.2)
[2019-02-23] MEDS: Aspirin 81 MG TAB.CHEW GT (09:55)
[2019-02-23] MEDS: Chlorhexidine 15 ML PO ×2 (09:55→21:20)
[2019-02-23] MEDS: APIXABAN 5 MG TABLET GT ×2 (09:56→21:11)
[2019-02-23] MEDS: Paroxetine 20 MG Tablet 40 MG GT (09:58)
[2019-02-23] MEDS: Famotidine 20 MG Tablet GT (10:00)
[2019-02-23] MEDS: Clopidogrel Bisulfate 75 MG Tablet GT (10:00)
[2019-02-23] MEDS: Senna/Docusate Sodium 1 Tablet 2 TABLET GT ×2 (10:01→21:11)
[2019-02-23] MEDS: QUEtiapine 25 MG Tablet GT (10:08)
[2019-02-23] MEDS: Fenofibrate 145 MG Tablet GT (10:14)
[2019-02-23] MEDS: buPROPion 75 MG Tablet GT ×2 (10:15→21:12)
[2019-02-23] MEDS: Magnesium Citrate 300 ML 150 ML GT ×2 (10:16→16:27)
[2019-02-23] MEDS: Furosemide 40 MG/4 ML Vial IV ×2 (10:18→17:56)
[2019-02-23] MEDS: Insulin Lispro 100 UNIT/ML INSULN.PEN SC ×2 (11:57→18:26)
[2019-02-23] MEDS: Acetaminophen 650 MG/20 ML UDC GT ×2 (12:07→17:56)
[2019-02-23 12:16] LABS: Bedside Glucose 155 mg/dL (70-110)
--- NOTE | 2019-02-23 14:48 | CASEMGMT ---
Case Management Progress Note: Received a message from other [facility] CM Darletta that RNCM from [facility] # [phone] called regarding patient and would like a call back. This health technical writer called [facility] and no answer, VM left with this writers contact information, Primary Unit CM contact and CM dept Thania contact number. CHERYL Alcaraz
[2019-02-23] MEDS: Vital AF 1.2 Cal Liquid 1,000 ML 55 ML GT (17:56)
--- NOTE | 2019-02-23 18:53 | NURSING ---
ed re chronic illness deferred till acute illness resolving
[2019-02-23 19:11] LABS: Bedside Glucose 165 mg/dL (70-110)
[2019-02-23] MEDS: Atorvastatin Calcium 80 MG Tablet GT (21:11)
[2019-02-23] MEDS: Propofol 10MG/Ml 1,000 MG/100 ML Bottle 4.3 MG CONT INF (22:40)
--- NOTE | 2019-02-23 23:01 | NURSING ---
At 22:20 This RN witnessed what appeared to be the pt having a seizure a second RN Stephanie Dorsey was called to bedside. Hospitalist was called and notified of the pt's seizure like activity and unresponsiveness. The pt's RR and HR were also elevated at this time. Hospitalist said he would come to bedside and assess pt and would like for this RN to call Dr Golden the hair clipper power and make him aware of this situation. Both physicians were updated and orders were placed, Pt was assessed by Dr Schaefer at the bedside.
[2019-02-23 23:20] LABS: Bedside Glucose 141 mg/dL (70-110)
[2019-02-23] MEDS: LORazepam 2 MG/ML Syringe IV (23:38)
[2019-02-24] VITALS (51 sets, daily range): BP systolic 86–175; BP diastolic 49–96; PULSE 79–141; RESP 14–33; TEMP 37.4–39; O2SAT 90–100
[2019-02-24] MEDS: fentaNYL drip 100 ML 17.5 MCG IV ×4 (01:47→21:07)
[2019-02-24] MEDS: CHLORHEXIDINE GLUC 2% CLOTH 1 EACH TOWELETTE TOPICAL (02:50)
[2019-02-24 03:25] LABS: Absolute Lymphocyte Count 1.46 X10^3/uL (0.83-4.51); Absolute Neutrophil Count 11.4 X10^3/uL (2.0-7.7); Basophil# 0.02 X10^3/uL; Basophil% 0.1 % (0-1); Hematocrit 33.1 % (37-47); Hemoglobin 10.1 g/dL (12.0-15.0); Lymphocyte # 1.46 X10^3/ul (4.0); Lymphocyte % 10.5 % (19-41); Mean Corp Hgb Conc 30.5 g/dL (32-36); Mean Corpuscular Hgb 26.9 pg (27.0-32.0); Mean Corpuscular Volume 88.3 fL (81-99); Mean Platelet Vol. 10.7 fl (6.2-12.0); Monocyte# 0.73 X10^3/uL; Monocyte% 5.3 % (0-10); NRBC Flagged by Analyzer 0.6 % (0-5); Neutrophil # 11.44 X10^3/uL (2.7-7.7); Neutrophil % 82.5 % (47-70); Platelet Count 317 K/mm3 (150-450); RBC Distribution Width CV 15.8 % (11.6-14.6); RBC Distribution Width SD 49.6 fl (35.1-43.9); Red Blood Count 3.75 M/mm3 (4.2-5.4); White Blood Count 13.9 K/mm3 (4.4-11.0)
[2019-02-24] MEDS: Ipratropium 0.5 MG/2.5 ML SOLUTION INHALATION ×6 (03:29→23:50)
[2019-02-24 03:38] LABS: Albumin, Serum 2.9 g/dL (3.2-5.0); BUN 40 mg/dL (7-18); Calcium,Total 7.4 mg/dL (8.5-10.1); Chloride 99 mmol/L (98-107); Creatinine, Serum 1.08 mg/dL (0.55-1.02); EST Glomerular Filtration Rate 53 mL/min (>60); Est Glom Filt Rate - Afr Amer 64 mL/min (>60); Estimated Creatinine Clearance 38.38 ml/min; Glucose 166 mg/dL (74-106); Phosphorus 2.1 mg/dL (2.5-4.9); Potassium 3.9 mmol/L (3.5-5.1); Sodium Level 139 mmol/L (136-145)
[2019-02-24 03:41] LABS: CPK Total, Creatine Kinase 896 U/L (26-192); Triglycerides 201 mg/dL
[2019-02-24] MEDS: TITRATION PARAMETER CHANGE 1 EACH IV (05:24)
[2019-02-24] MEDS: 0.9% Saline Lock 10 ML Syringe IV (05:24)
[2019-02-24 05:31] LABS: Bedside Glucose 135 mg/dL (70-110)
--- NOTE | 2019-02-24 06:33 | PCM.PN.INT ---
Subjective: The patient was seen and examined at the bedside this morning. Events from the last 24 hours have been reviewed. Overnight, the patient became increasingly febrile with a T-max noted to be 102.7 ?F. This was attributed to both the Seroquel that the patient had received earlier combined with the Precedex. Therefore, the potential offending medications were discontinued. The patient was placed back on propofol for sedation. Since that time, the patient's fever curve has improved. However, the patient is tachycardic and per nursing report has been agitated and restless overnight. In addition, the patient did experience what appeared appeared to be a tonic-clonic seizure overnight. This was self-limited and resolved without intervention. Due to tenuous hemodynamics, the patient's Lasix was also discontinued last night. The patient is currently documented to be overall net +4.3 L for the hospital admission. Objective: The patient's most recent lab work, culture data and imaging studies have all been personally reviewed. CT chest without contrast did reveal bilateral lower lobe airspace disease with associated atelectasis and dependent pleural effusions. The patient does have significant upper lobe predominant emphysematous changes. Unfortunately, evaluation of the patient's lower lobes for interstitial lung disease was obscured by the aforementioned airspace opacities. Surface echocardiogram revealed moderately severe segmental systolic dysfunction with an ejection fraction of 20%. Pulmonary artery systolic pressure was estimated to be 52 mmHg. Strep and urine Legionella antigens were negative. Respiratory viral panel was negative. Sputum culture was positive for pseudomonas aeruginosa, which was pansensitive. General: - - Although sedated, the patient appears quite restless in bed. Remains intubated and mechanically ventilated. HEENT: Atraumatic, PERRLA, Normocephalic Oral: No Gingival or Mucosal Lesions/ Ulcerations, - - Endotracheal and OG tubes remain in place. Neck: Supple, No Nodes, Trachea Midline Lungs: No rhonchi, No wheeze, No rales, Diminished, Tachypneic Cardiovascular: Normal S1, Normal S2, No murmurs, Tachycardic Abdomen: Bowel Sounds Present, Soft, Non Tender Extremities: No cyanosis, Clubbing, Edema Skin: - - No significant change from previous Musculoskeletal: No Tenderness to Palpation of Joints or Extremities Lymphatic: No Cervical, Supraclavicular, or Inguinal Adenopathy Neurological: - - No focal neurological deficits. Moves all extremities spontaneously. Psych/Mental Status: Anxious, Restless Vital Signs Temp Pulse Resp BP Pulse Ox 101.1 F H 133 H 27 H 165/96 H 91 02/24/19 06:00 02/24/19 06:00 02/24/19 06:00 02/24/19 06:00 02/24/19 06:00 Oxygen Flow Rate (L/min) 6 Oxygen Delivery Method Mechanical Ventilator Weight: 145 lb 4.554 oz Body Mass Index (BMI) 26.4 Intake and Output for Last 24 Hours 02/22/19 02/23/19 02/24/19 23:59 23:59 23:59 Intake Total 2554.39 / 2578.29 3376.55 / 3395.13 587.17 / 587.17 Output Total 5125 / 5125 3700 / 3700 350 / 350 Balance -2570.61 / -2546.71 -323.45 / -304.87 237.17 / 237.17 Labs (Last 48 Hours) 02/22/19 02/22/19 02/22/19 11:33 17:29 23:39 WBC RBC Hgb Hct MCV MCH MCHC RDW Std Deviation RDW Coeff of Abhinav Plt Count MPV Immature Gran % (Auto) Neut % (Auto) Lymph % (Auto) [place] % (Auto) Eos % (Auto) Baso % (Auto) Absolute Neuts (auto) Absolute Lymphs (auto) Nucleated RBC % Sodium Potassium Chloride Carbon Dioxide Anion Gap BUN Creatinine Estim Creat Clear Calc Est GFR (MDRD) Af Amer Est GFR (MDRD) Non-Af BUN/Creatinine Ratio Glucose Calcium Phosphorus Total Bilirubin Direct Bilirubin AST ALT Alkaline Phosphatase Total Creatine Kinase Total Protein Albumin Globulin Triglycerides POC Glucose 156 H 132 H 132 H 02/23/19 02/23/19 02/23/19 03:50 03:50 03:50 WBC 14.5 H RBC 3.70 L Hgb 10.0 L Hct 32.7 L MCV 88.4 MCH 27.0 MCHC 30.6 L RDW Std Deviation 49.4 H RDW Coeff of Abhinav 15.4 H Plt Count 300 MPV 10.6 Immature Gran % (Auto) 1.700 H Neut % (Auto) 85.4 H Lymph % (Auto) 7.0 L [place] % (Auto) 5.8 Eos % (Auto) 0.0 Baso % (Auto) 0.1 Absolute Neuts (auto) 12.4 H Absolute Lymphs (auto) 1.02 Nucleated RBC % 0.2 Sodium 138 Potassium 4.1 Chloride 102 Carbon Dioxide 32.0 Anion Gap 4 L BUN 37 H Creatinine 1.06 H Estim Creat Clear Calc 39.10 Est GFR (MDRD) Af Amer 65 Est GFR (MDRD) Non-Af 54 L BUN/Creatinine Ratio 34.9 H Glucose 153 H Calcium 7.6 L Phosphorus Total Bilirubin 0.20 Direct Bilirubin 0.13 AST 30 ALT 20 Alkaline Phosphatase 65 Total Creatine Kinase Total Protein 6.5 Albumin 3.0 L Globulin 3.5 Triglycerides POC Glucose 02/23/19 02/23/19 02/23/19 05:33 11:55 17:59 WBC RBC Hgb Hct MCV MCH MCHC RDW Std Deviation RDW Coeff of Abhinav Plt Count MPV Immature Gran % (Auto) Neut % (Auto) Lymph % (Auto) [place] % (Auto) Eos % (Auto) Baso % (Auto) Absolute Neuts (auto) Absolute Lymphs (auto) Nucleated RBC % Sodium Potassium Chloride Carbon Dioxide Anion Gap BUN Creatinine Estim Creat Clear Calc Est GFR (MDRD) Af Amer Est GFR (MDRD) Non-Af BUN/Creatinine Ratio Glucose Calcium Phosphorus Total Bilirubin Direct Bilirubin AST ALT Alkaline Phosphatase Total Creatine Kinase Total Protein Albumin Globulin Triglycerides POC Glucose 133 H 155 H 165 H 02/23/19 02/24/19 02/24/19 23:15 03:10 03:10 WBC 13.9 H RBC 3.75 L Hgb 10.1 L Hct 33.1 L MCV 88.3 MCH 26.9 L MCHC 30.5 L RDW Std Deviation 49.6 H RDW Coeff of Abhinav 15.8 H Plt Count 317 MPV 10.7 Immature Gran % (Auto) 1.600 H Neut % (Auto) 82.5 H Lymph % (Auto) 10.5 L [place] % (Auto) 5.3 Eos % (Auto) 0.0 Baso % (Auto) 0.1 Absolute Neuts (auto) 11.4 H Absolute Lymphs (auto) 1.46 Nucleated RBC % 0.6 Sodium 139 Potassium 3.9 Chloride 99 Carbon Dioxide 33.0 H Anion Gap BUN 40 H Creatinine 1.08 H Estim Creat Clear Calc 38.38 Est GFR (MDRD) Af Amer 64 Est GFR (MDRD) Non-Af 53 L BUN/Creatinine Ratio 37.0 H Glucose 166 H Calcium 7.4 L Phosphorus 2.1 L Total Bilirubin Direct Bilirubin AST ALT Alkaline Phosphatase Total Creatine Kinase Total Protein Albumin 2.9 L Globulin Triglycerides POC Glucose 141 H 02/24/19 02/24/19 03:10 05:22 WBC RBC Hgb Hct MCV MCH MCHC RDW Std Deviation RDW Coeff of Abhinav Plt Count MPV Immature Gran % (Auto) Neut % (Auto) Lymph % (Auto) [place] % (Auto) Eos % (Auto) Baso % (Auto) Absolute Neuts (auto) Absolute Lymphs (auto) Nucleated RBC % Sodium Potassium Chloride Carbon Dioxide Anion Gap BUN Creatinine Estim Creat Clear Calc Est GFR (MDRD) Af Amer Est GFR (MDRD) Non-Af BUN/Creatinine Ratio Glucose Calcium Phosphorus Total Bilirubin Direct Bilirubin AST ALT Alkaline Phosphatase Total Creatine Kinase 896 H Total Protein Albumin Globulin Triglycerides 201 H POC Glucose 135 H Microbiology 02/20/19 09:00 Sputum, Induced/Lukens Gram Stain - Final 02/20/19 09:00 Sputum, Induced/Lukens Respiratory Culture - Final Pseudomonas aeroginosa Clinical Impression(s) from Imaging Studies Chest X-Ray 02/19/19 06:05 IMPRESSION: Bilateral lower airspace disease superimposed upon moderately severe pulmonary fibrosis. Differential considerations include bronchitis versus pneumonia. Electronically Signed: Marivel Smart MD at 6:39 EST , Service support , Chest X-Ray 02/20/19 06:35 IMPRESSION: Stable bilateral interstitial pulmonary infiltrates with pulmonary scarring and likely pulmonary fibrosis; there may be acute infiltrates or pulmonary venous congestion in addition to the chronic interstitial fibrotic changes and/or progression of pulmonary fibrosis with no change when compared to most recent chest radiograph Upper lobe COPD changes Ill-defined 8 mm density right upper lobe scar versus pulmonary lesion CT chest follow-up recommended Electronically Signed: Mohsen Zhong, at 7:15 EST Tel , Service support , KUB X-Ray 02/20/19 07:17 IMPRESSION: Appropriate positioning of enteric tube with the tip probably in the stomach. Electronically Signed: Marivel Smart MD at 9:42 EST , Service support , Chest X-Ray 02/20/19 07:40 IMPRESSION: 1. Appropriate positioning of endotracheal tube. 2. Heterogeneous bilateral basilar interstitial and air space consolidations may represent pneumonia. Electronically Signed: Marivel Smart MD at 8:59 EST , Service support , Chest CT 02/20/19 09:52 IMPRESSION: 1. Bilateral lower lobe airspace consolidations, atelectasis and pleural effusions likely secondary to pneumonia. 2. Emphysematous changes and subcortical pulmonary fibrosis. 3. Nonspecific pathologic mediastinal lymphadenopathy. Electronically Signed: Marivel Smart MD at 11:06 EST , Service support , Medical Necessity - Tobacco Use Smoking Status: Former smoker Tobacco Use: Cigarettes Assessment/Plan All Active Problems (Last Reviewed 08/01/18 @ 15:50 by Jackson Peter DO) Lower respiratory infection (Acute) Acute respiratory failure with hypoxia and hypercapnia (Acute) Pneumonia (Acute) Sepsis (Acute) Pulmonary embolism (Acute) Cholelithiasis NOS (Acute) Acute respiratory failure with hypoxia and hypercapnia (Acute) COPD with acute exacerbation (Acute) Gram-negative pneumonia (Acute) Acute hypercapnic respiratory failure (Acute) NSTEMI (non-ST elevated myocardial infarction) (Acute) COPD exacerbation (Acute) RECOMMENDATIONS: 1. Okay to transition to IV Levaquin, given pansensitive Pseudomonas on culture. 2. Transition back to propofol and fentanyl for sedation. 3. Continue tube feeds as ordered. 4. EEG is currently pending. Obtain neurology consultation as well. 5. Continue PRN Ativan for any further seizure activity. 6. Continue bronchodilators and IV steroids. 7. Continue to wean FiO2 to maintain oxygen saturations at or above 90%. 8. Continue Eliquis and Pepcid. IMPRESSIONS: 1. Acute on chronic combined respiratory failure likely secondary to COPD with exacerbation There is clinical concern for underlying community acquired pneumonia as precipitating etiology for the patient's exacerbation. However, it does appear that the patient has some baseline interstitial fibrosis, which was present on prior chest imaging, and appears to have progressed in the interim. Despite the use of noninvasive positive pressure ventilatory support, the patient continued to decompensate from a clinical perspective and did require intubation on the morning of February 20. The patient's sputum culture turned positive for pseudomonas aeruginosa. Therefore, the patient can be transitioned from IV cefepime to Levaquin. She will remain on bronchodilators and IV steroids. Continue to wean FiO2 and PEEP as tolerated. Continue tube feeds as ordered. 2. Severe sepsis secondary to pseudomonal pneumonia Continue current supportive measures with bronchodilators, IV steroids and antimicrobials. 3. History of venous thromboembolic disease The patient does have a history of pulmonary emboli, for which she will be continued on Eliquis per outpatient regimen. 4. Troponin elevation/NSTEMI/Acute on Chronic Systolic Heart Failure/Pulmonary Hypertension Although initially felt to be secondary to demand ischemia, a review of the patient's repeat echocardiogram revealed worsening in her LV ejection fraction. Therefore, cardiology was consulted and is currently following to assist with medical management. The patient may require heart catheterization, pending improvement in clinical stability. Will defer management and further work-up to cardiology. 5. Chronic systolic heart failure/pulmonary hypertension Cardiology is currently following to assist with medical management. Lasix is currently on hold due to tenuous hemodynamics. 6. New onset seizure activity The patient apparently had a witnessed tonic-clonic seizure last evening. However, it resolved without intervention. No further seizure activity has been witnessed. EEG was completed this morning. Will obtain neurology consultation for input. 7. Tobacco dependency, currently in remission/hypertension/hyperlipidemia/peripheral vascular disease Complicates care, management, recovery and prognosis. Physical therapy to work with the patient. TIME: 39 minutes of critical care time, independent of procedures, was spent addressing the patient's acute on chronic combined respiratory failure, COPD with exacerbation, severe sepsis secondary to community-acquired pneumonia, history of venous thromboembolic disease, history of systolic heart failure, pulmonary hypertension, NSTEMI, review of all data and collaboration with care team. ([id number]) Code Visit 9xxxx: [id number] Critical care first hour
--- NOTE | 2019-02-24 07:34 | PN_ITS ---
Patient Problems: Active and Suspected Problems (Last Reviewed 08/01/18 @ 15:50 by Jackson Peter DO) Acute respiratory failure with hypoxia and hypercapnia (Acute) Pneumonia (Acute) Sepsis (Acute) Reason for Visit: Follow-up on respiratory failure Subjective: Patient was seen and examined. Overnight, patient developed progressive fever and had a seizure. This was attributed to Precedex and Seroquel which has since been discontinued. Patient has been placed back on propofol. T-max has been 102.7. EEG was ordered. Objective: Physical exam: General: intubated, not following commands, moves around in bed, pale, not jaundiced HEENT: Atraumatic, PERRLA, EOMI, Normocephalic Oral: Dry Mucosa Neck: Supple, No JVD, Negative Carotid Bruits Lungs: - -breath sounds decreased bibasally, no wheezes or crackles. Intubated. Cardiovascular: Regular rate, Regular Rhythm, Normal S1, Normal S2, No murmurs Abdomen: Bowel Sounds Present, Soft, Non Tender Extremities: No clubbing, No cyanosis, No edema, Capillary Refill Less than 3 Seconds Skin: No rashes, No breakdown Musculoskeletal: No Tenderness to Palpation of Joints or Extremities Lymphatic: No Cervical, Supraclavicular, or Inguinal Adenopathy Neurological: Cranial nerves II-XII grossly intact, Neuro grossly intact, Motor Exam 5/5 strength throughout Psych/Mental Status: intubated, on sedation, not following commands Vitals/I&O's: Vital Signs Temp Pulse Resp BP Pulse Ox 100.4 F H 127 H 21 H 151/81 H 93 02/24/19 07:00 02/24/19 07:00 02/24/19 07:00 02/24/19 07:00 02/24/19 07:00 Oxygen Flow Rate (L/min) 6 Oxygen Delivery Method Mechanical Ventilator Weight: 65.9 kg Body Mass Index (BMI) 26.4 Intake and Output for Last 24 Hours 02/22/19 02/23/19 02/24/19 23:59 23:59 23:59 Intake Total 2554.39 / 2578.29 3376.55 / 3395.13 609.67 / 609.67 Output Total 5125 / 5125 3700 / 3700 350 / 350 Balance -2570.61 / -2546.71 -323.45 / -304.87 259.67 / 259.67 Microbiology Past 72 Hours 02/19/19 07:00 Blood Culture (Wb) #2 - Anticubital Right Blood Culture - Final No growth in 5 days. 02/19/19 06:15 Blood Culture (Wb) - Anticubital Right Blood Culture - Final No growth in 5 days. 02/20/19 09:00 Sputum, Induced/Lukens Gram Stain - Final 02/20/19 09:00 Sputum, Induced/Lukens Respiratory Culture - Final Pseudomonas aeroginosa Laboratory Results 02/23/19 03:50: Total Bilirubin 0.20, Direct Bilirubin 0.13, AST 30, ALT 20, Alkaline Phosphatase 65, Total Protein 6.5, Albumin 3.0 L, Globulin 3.5 02/23/19 11:55: POC Glucose 155 H 02/23/19 17:59: POC Glucose 165 H 02/23/19 23:15: POC Glucose 141 H 02/24/19 03:10: WBC 13.9 H, RBC 3.75 L, Hgb 10.1 L, Hct 33.1 L, MCV 88.3, MCH 26.9 L, MCHC 30.5 L, RDW Std Deviation 49.6 H, RDW Coeff of Abhinav 15.8 H, Plt Count 317, MPV 10.7, Immature Gran % (Auto) 1.600 H, Neut % (Auto) 82.5 H, Lymph % (Auto) 10.5 L, [place] % (Auto) 5.3, Eos % (Auto) 0.0, Baso % (Auto) 0.1, Absolute Neuts (auto) 11.4 H, Absolute Lymphs (auto) 1.46, Nucleated RBC % 0.6 02/24/19 03:10: Sodium 139, Potassium 3.9, Chloride 99, Carbon Dioxide 33.0 H, BUN 40 H, Creatinine 1.08 H, Estim Creat Clear Calc 38.38, Est GFR (MDRD) Af Amer 64, Est GFR (MDRD) Non-Af 53 L, BUN/Creatinine Ratio 37.0 H, Glucose 166 H, Calcium 7.4 L, Phosphorus 2.1 L, Albumin 2.9 L 02/24/19 03:10: Total Creatine Kinase 896 H, Triglycerides 201 H 02/24/19 05:22: POC Glucose 135 H Current Medications Acetaminophen (Tylenol Liquid) 650 mg GT Q6H PRN PRN PRN Reason: Pain 1-3/10 or Fever >100.7 Last Admin: 02/23/19 17:56 Dose: 650 mg Documented by: Apixaban (Eliquis) 5 mg GT BID [facility] Last Admin: 02/23/19 21:11 Dose: 5 mg Documented by: Aspirin (Aspirin, Baby) 81 mg GT DAILY@0800 [facility] Last Admin: 02/23/19 09:55 Dose: 81 mg Documented by: Atorvastatin Calcium (Lipitor) 80 mg GT QHS [facility] Last Admin: 02/23/19 21:11 Dose: 80 mg Documented by: Bupropion HCl (Wellbutrin Tablets) 75 mg GT BID [facility] Last Admin: 02/23/19 21:12 Dose: 75 mg Documented by: Chlorhexidine Gluconate () 1 each TOPICAL DAILY [facility] Last Admin: 02/24/19 02:50 Dose: 1 each Documented by: Chlorhexidine Gluconate () 15 ml PO BID [facility] Last Admin: 02/23/19 21:20 Dose: 15 ml Documented by: Clopidogrel Bisulfate (Plavix) 75 mg GT DAILY [facility] Last Admin: 02/23/19 10:00 Dose: 75 mg Documented by: Famotidine (Pepcid) 20 mg GT DAILY [facility] Last Admin: 02/23/19 10:00 Dose: 20 mg Documented by: Fenofibrate (Tricor) 145 mg GT DAILY [facility] Last Admin: 02/23/19 10:14 Dose: 145 mg Documented by: Glucagon () 1 mg IM .X1 PRN PRN Reason: Hypoglycemia Sodium Chloride () 250 mls @ 15 mls/hr IV .[id number] PRN PRN Reason: Saline Flush Last Infusion: 02/23/19 22:15 Dose: 0 mls/hr Documented by: Sodium Chloride () 250 mls @ 15 mls/hr IV .[id number] PRN PRN Reason: Additional IVPB Infusion Dextrose (Dextrose 10%-Water) 250 mls @ 999 mls/hr IV .Q16M PRN; Protocol PRN Reason: HYPOGLYCEMIA Cefepime HCl 2 gm/ Sodium (Chloride) 100 mls @ 200 mls/hr IV Q12 [facility] Last Infusion: 02/23/19 21:46 Dose: Infused Documented by: Fentanyl () 100 mls @ 15 mls/hr IV UD [facility]; Protocol Last Titration: 02/24/19 07:00 Dose: 175 mcg/hr, 17.5 mls/hr Documented by: Enteral Nutritional Formula (Vital Af 1.2 [place] Liquid) 1,000 mls @ 55 mls/hr GT .[id number] [facility] Last Admin: 02/23/19 17:56 Dose: 55 mls/hr Documented by: Propofol (Diprivan) 1,000 mg in 100 mls @ 3.954 mls/hr CONT INF .Q12H [facility]; Protocol Last Titration: 02/24/19 07:15 Dose: 15 mcg/kg/min, 5.9 mls/hr Documented by: Insulin Human Lispro (Humalog Kwikpen (Bkc)) 0 unit SC Q6 [facility]; Protocol Last Admin: 02/24/19 05:24 Dose: Not Given Documented by: Ipratropium [place] (Atrovent) 0.5 mg INHALATION Q4H.RT [facility] Last Admin: 02/24/19 06:42 Dose: 0.5 mg Documented by: Lorazepam (Ativan) 2 mg IV Q4H PRN PRN PRN Reason: SEIZURES Last Admin: 02/23/19 23:38 Dose: 2 mg Documented by: Methylprednisolone (Solu-Medrol) 40 mg IV Q8 [facility] Last Admin: 02/24/19 05:24 Dose: 40 mg Documented by: Nicotine (Nicoderm Cq (Pbkc)) 21 mg TRANSDERM. DAILY [facility] Last Admin: 02/23/19 09:57 Dose: 21 mg Documented by: Nitroglycerin (Nitrostat) 0.4 mg SUBLINGUAL Q5M PRN PRN Reason: CHEST Paroxetine HCl (Paxil) 40 mg GT DAILY [facility] Last Admin: 02/23/19 09:58 Dose: 40 mg Documented by: Polyethylene Glycol (Miralax) 17 gm GT DAILY PRN PRN Reason: Constipation Last Admin: 02/22/19 15:59 Dose: 17 gm Documented by: Potassium Chloride (Potassium Chl Soln) 20 meq GT BIDCM [facility] Last Admin: 02/23/19 17:56 Dose: 20 meq Documented by: Senna/Docusate Sodium (Senokot-S, [place]-Colace) 2 tablet GT BID [facility] Last Admin: 02/23/19 21:11 Dose: 2 tablet Documented by: Sodium Chloride () 10 - 40 ml IV UD PRN PRN Reason: SALINE FLUSH Last Admin: 02/24/19 05:24 Dose: 40 ml Documented by: STROKE Vital Signs/Narrative: Vital Signs Temp Pulse Resp BP Pulse Ox 02/24/19 07:00 100.4 F H 127 H 21 H 151/81 H 93 02/24/19 06:42 128 H 33 H 02/24/19 06:39 112 H 15 94 02/24/19 06:00 101.1 F H 133 H 27 H 165/96 H 91 02/24/19 05:00 101.1 F H 117 H 15 95/62 92 02/24/19 04:00 100.2 F H 116 H 18 96/61 92 Medical Necessity - Tobacco Use Smoking Status: Former smoker Tobacco Use: Cigarettes Assessment/Plan All Active Problems (Last Reviewed 08/01/18 @ 15:50 by Jackson Peter DO) Lower respiratory infection (Acute) Acute respiratory failure with hypoxia and hypercapnia (Acute) Pneumonia (Acute) Sepsis (Acute) Pulmonary embolism (Acute) Cholelithiasis NOS (Acute) Acute respiratory failure with hypoxia and hypercapnia (Acute) COPD with acute exacerbation (Acute) Gram-negative pneumonia (Acute) Acute hypercapnic respiratory failure (Acute) NSTEMI (non-ST elevated myocardial infarction) (Acute) COPD exacerbation (Acute) 73 y/o female with past medical history of chronic severe interstitial fibrosis admitted with a complaint of worsening shortness of breath 1. Acute on chronic hypoxic respiratory failure secondary to acute COPD exacerbation/pseudomonas pneumonia Remains intubated, on mechanical ventilator [employer] K[employer] following 2. Seizure likely medication-related/febrile-related/possible serotonin syndrome Off Precedex and Seroquel, EEG ordered, Discussed with intensivistwill follow-up with Neurology for reading to decide on start of empiric/prophylatic antiseizure meds Will discontinue Bupropion and Paroxetine 3. Severe sepsis due to pseudomonas pneumonia Continues to be febrile, Blood cultures, influenza screen, respiratory panel, urine streptococcal and Legionella antigen negative Sputum cultures growing pseudomonas, pansensitive We will continue antibiotics 4. Acute systolic heart failure, EF 20%, improving, diuresed a lot Lasix on hold for now as patient is probably getting dehydrated 5. NSTEMI, medically being managed now History of CAD s/p stents Continue on aspirin, plavix, statin, Imdur Cardiac cath planned when stable and extubated 6. Acute COPD exacerbation, improving, Management as in #1 7. Hypertension, BP meds on hold Will continue to monitor 7. History of DVT, continue on eliquis 9. Nicotine dependence, on replacement. 10. DVT prophylaxis- on eliquis 11. Code status: full code Code Visit Inpatient E&M: 81768 Subs Hosp L2
[2019-02-24 09:27] LABS: Magnesium 2.6 mg/dL (1.6-2.6)
[2019-02-24] MEDS: Propofol 10MG/Ml 1,000 MG/100 ML Bottle 11.9 MG CONT INF ×2 (10:51→17:08)
[2019-02-24] MEDS: Chlorhexidine 15 ML PO ×2 (10:52→21:30)
[2019-02-24] MEDS: Clopidogrel Bisulfate 75 MG Tablet GT (10:56)
[2019-02-24] MEDS: Aspirin 81 MG TAB.CHEW GT (10:56)
[2019-02-24] MEDS: Famotidine 20 MG Tablet GT (10:56)
[2019-02-24] MEDS: Fenofibrate 145 MG Tablet GT (10:57)
[2019-02-24 11:15] LABS: Bedside Glucose 116 mg/dL (70-110)
[2019-02-24] MEDS: levoFLOXacin IV 750 MG/150 ML BAG 100 MG IV (11:30)
[2019-02-24] MEDS: APIXABAN 5 MG TABLET GT ×2 (11:45→21:10)
[2019-02-24] MEDS: Vital AF 1.2 Cal Liquid 1,000 ML 55 ML GT (17:15)
[2019-02-24 17:16] LABS: Bedside Glucose 82 mg/dL (70-110)
--- NOTE | 2019-02-24 19:57 | NURSING ---
not following commands, RASS -2 at rest, easily becomes anxious and restless with any stimuli, will attempt to sit up in bed, thrashing legs to the side of the bed, and very tense, propofol remains at 30 mcg/kg/min for this reason.
[2019-02-24] MEDS: Atorvastatin Calcium 80 MG Tablet GT (21:10)
[2019-02-24 23:15] LABS: Bedside Glucose 110 mg/dL (70-110)
[2019-02-25] VITALS (45 sets, daily range): BP systolic 72–145; BP diastolic 36–85; PULSE 70–113; RESP 14–18; TEMP 37.2–37.9; O2SAT 88–100
[2019-02-25] MEDS: Propofol 10MG/Ml 1,000 MG/100 ML Bottle 11.9 MG CONT INF (00:19)
[2019-02-25] MEDS: fentaNYL drip 100 ML 20 MCG IV ×5 (02:37→21:40)
[2019-02-25] MEDS: Ipratropium 0.5 MG/2.5 ML SOLUTION INHALATION ×6 (03:00→23:00)
--- NOTE | 2019-02-25 03:30 | NURSING ---
due to patient's restlessness/anxiety, attempting to wean fentanyl and propofol for ventilator wean trial at this time.
--- NOTE | 2019-02-25 03:57 | NURSING ---
Addendum entered by Chanel Berg 02/25/19 04:00: HR had elevated to 130s, RR to mid 30's. Original Note: fentanyl and propofol rates were decreased to half the rate, patient did not tolerate well, sitting up, very tense/rigid, RASS +2 agitated, fentanyl and propofol placed back on max doses- see med titrations.
[2019-02-25 04:27] LABS: Absolute Lymphocyte Count 1.22 X10^3/uL (0.83-4.51); Absolute Neutrophil Count 11.8 X10^3/uL (2.0-7.7); Basophil# 0.01 X10^3/uL; Basophil% 0.1 % (0-1); Eosinophil# 0.01 X10^3/uL; Eosinophils% 0.1 % (0-5); Hematocrit 31.9 % (37-47); Hemoglobin 9.8 g/dL (12.0-15.0); Lymphocyte # 1.22 X10^3/ul (4.0); Lymphocyte % 8.8 % (19-41); Mean Corp Hgb Conc 30.7 g/dL (32-36); Mean Corpuscular Hgb 27.8 pg (27.0-32.0); Mean Corpuscular Volume 90.4 fL (81-99); Monocyte% 5.1 % (0-10); NRBC Flagged by Analyzer 0.5 % (0-5); Neutrophil # 11.77 X10^3/uL (2.7-7.7); Neutrophil % 84.8 % (47-70); Platelet Count 278 K/mm3 (150-450); RBC Distribution Width CV 16.4 % (11.6-14.6); RBC Distribution Width SD 51.3 fl (35.1-43.9); Red Blood Count 3.53 M/mm3 (4.2-5.4); White Blood Count 13.9 K/mm3 (4.4-11.0)
--- NOTE | 2019-02-25 04:32 | PCM.PN.INT ---
Subjective: The patient was seen and examined at the bedside this morning. Events from the last 24 hours have been reviewed. The patient continues to have low-grade fevers. Nevertheless, her overall fever curve is improved. Overnight, the patient was extremely agitated and restless with any nursing contact. Her sedative regimen was optimized to include Propofol at 30 mg and Fentanyl at 200 mcg. She is overall net +4.7 L for the hospital admission. Vent requirements are stable with an FIO2 of 35% and PEEP of 5. The patient was evaluated by neurology via tele-consult yesterday. However, there is no documentation in the computer system of the neurologist recommendations. Phosphorus is low this morning at 1.9. The patient is tolerating tube feeds. Objective: The patient's most recent lab work, culture data and imaging studies have all been personally reviewed. CT chest without contrast did reveal bilateral lower lobe airspace disease with associated atelectasis and dependent pleural effusions. The patient does have significant upper lobe predominant emphysematous changes. Unfortunately, evaluation of the patient's lower lobes for interstitial lung disease was obscured by the aforementioned airspace opacities. Surface echocardiogram revealed moderately severe segmental systolic dysfunction with an ejection fraction of 20%. Pulmonary artery systolic pressure was estimated to be 52 mmHg. Strep and urine Legionella antigens were negative. Respiratory viral panel was negative. Sputum culture was positive for pseudomonas aeruginosa, which was pansensitive. General: - - Remains intubated, sedated and mechanically ventilated. Appears comfortable at this time on assist control without any ventilator dyssynchrony. HEENT: Atraumatic, PERRLA, Normocephalic Oral: Moist Mucosa, - - Endotracheal and OG tubes remain in place. Neck: Supple, No Nodes, Trachea Midline Lungs: No rhonchi, No wheeze, No rales, Diminished Cardiovascular: Regular rate, Regular Rhythm, Normal S1, Normal S2, No murmurs, - - NSR on telemetry Abdomen: Bowel Sounds Present, Soft, Non Tender Extremities: No cyanosis, No edema, Clubbing Skin: - - No significant change from previous. Musculoskeletal: No Tenderness to Palpation of Joints or Extremities Lymphatic: No Cervical, Supraclavicular, or Inguinal Adenopathy Neurological: - - No focal neurologic deficits. Currently sedated. Vital Signs Temp Pulse Resp BP Pulse Ox 99.9 F H 92 14 92/52 L 94 02/25/19 04:00 02/25/19 04:00 02/25/19 04:00 02/25/19 04:00 02/25/19 04:00 Oxygen Flow Rate (L/min) 6 Oxygen Delivery Method Mechanical Ventilator Weight: 145 lb 4.554 oz Body Mass Index (BMI) 26.4 Intake and Output for Last 24 Hours 02/23/19 02/24/19 02/25/19 23:59 23:59 23:59 Intake Total 3376.55 / 3395.13 1720.07 / 1873.98 273.56 / 273.56 Output Total 3700 / 3700 1350 / 1350 Balance -323.45 / -304.87 370.07 / 523.98 273.56 / 273.56 Labs (Last 48 Hours) 02/23/19 02/23/19 02/23/19 03:50 05:33 11:55 WBC RBC Hgb Hct MCV MCH MCHC RDW Std Deviation RDW Coeff of Abhinav Plt Count MPV Immature Gran % (Auto) Neut % (Auto) Lymph % (Auto) [place] % (Auto) Eos % (Auto) Baso % (Auto) Absolute Neuts (auto) Absolute Lymphs (auto) Nucleated RBC % Sodium Potassium Chloride Carbon Dioxide BUN Creatinine Estim Creat Clear Calc Est GFR (MDRD) Af Amer Est GFR (MDRD) Non-Af BUN/Creatinine Ratio Glucose Calcium Phosphorus Magnesium Total Bilirubin 0.20 Direct Bilirubin 0.13 AST 30 ALT 20 Alkaline Phosphatase 65 Total Creatine Kinase Total Protein 6.5 Albumin 3.0 L Globulin 3.5 Triglycerides POC Glucose 133 H 155 H 02/23/19 02/23/19 02/24/19 17:59 23:15 03:10 WBC 13.9 H RBC 3.75 L Hgb 10.1 L Hct 33.1 L MCV 88.3 MCH 26.9 L MCHC 30.5 L RDW Std Deviation 49.6 H RDW Coeff of Abhinav 15.8 H Plt Count 317 MPV 10.7 Immature Gran % (Auto) 1.600 H Neut % (Auto) 82.5 H Lymph % (Auto) 10.5 L [place] % (Auto) 5.3 Eos % (Auto) 0.0 Baso % (Auto) 0.1 Absolute Neuts (auto) 11.4 H Absolute Lymphs (auto) 1.46 Nucleated RBC % 0.6 Sodium Potassium Chloride Carbon Dioxide BUN Creatinine Estim Creat Clear Calc Est GFR (MDRD) Af Amer Est GFR (MDRD) Non-Af BUN/Creatinine Ratio Glucose Calcium Phosphorus Magnesium Total Bilirubin Direct Bilirubin AST ALT Alkaline Phosphatase Total Creatine Kinase Total Protein Albumin Globulin Triglycerides POC Glucose 165 H 141 H 02/24/19 02/24/19 02/24/19 03:10 03:10 03:10 WBC RBC Hgb Hct MCV MCH MCHC RDW Std Deviation RDW Coeff of Abhinav Plt Count MPV Immature Gran % (Auto) Neut % (Auto) Lymph % (Auto) [place] % (Auto) Eos % (Auto) Baso % (Auto) Absolute Neuts (auto) Absolute Lymphs (auto) Nucleated RBC % Sodium 139 Potassium 3.9 Chloride 99 Carbon Dioxide 33.0 H BUN 40 H Creatinine 1.08 H Estim Creat Clear Calc 38.38 Est GFR (MDRD) Af Amer 64 Est GFR (MDRD) Non-Af 53 L BUN/Creatinine Ratio 37.0 H Glucose 166 H Calcium 7.4 L Phosphorus 2.1 L Magnesium 2.6 Total Bilirubin Direct Bilirubin AST ALT Alkaline Phosphatase Total Creatine Kinase 896 H Total Protein Albumin 2.9 L Globulin Triglycerides 201 H POC Glucose 02/24/19 02/24/19 02/24/19 05:22 11:10 17:06 WBC RBC Hgb Hct MCV MCH MCHC RDW Std Deviation RDW Coeff of Abhinav Plt Count MPV Immature Gran % (Auto) Neut % (Auto) Lymph % (Auto) [place] % (Auto) Eos % (Auto) Baso % (Auto) Absolute Neuts (auto) Absolute Lymphs (auto) Nucleated RBC % Sodium Potassium Chloride Carbon Dioxide BUN Creatinine Estim Creat Clear Calc Est GFR (MDRD) Af Amer Est GFR (MDRD) Non-Af BUN/Creatinine Ratio Glucose Calcium Phosphorus Magnesium Total Bilirubin Direct Bilirubin AST ALT Alkaline Phosphatase Total Creatine Kinase Total Protein Albumin Globulin Triglycerides POC Glucose 135 H 116 H 82 02/24/19 02/25/19 02/25/19 23:05 04:20 04:20 WBC 13.9 H RBC 3.53 L Hgb 9.8 L Hct 31.9 L MCV 90.4 MCH 27.8 MCHC 30.7 L RDW Std Deviation 51.3 H RDW Coeff of Abhinav 16.4 H Plt Count 278 MPV 11.0 Immature Gran % (Auto) 1.100 H Neut % (Auto) 84.8 H Lymph % (Auto) 8.8 L [place] % (Auto) 5.1 Eos % (Auto) 0.1 Baso % (Auto) 0.1 Absolute Neuts (auto) 11.8 H Absolute Lymphs (auto) 1.22 Nucleated RBC % 0.5 Sodium Pending Potassium Pending Chloride Pending Carbon Dioxide Pending BUN Pending Creatinine Pending Estim Creat Clear Calc Est GFR (MDRD) Af Amer Pending Est GFR (MDRD) Non-Af Pending BUN/Creatinine Ratio Pending Glucose Pending Calcium Pending Phosphorus Pending Magnesium Pending Total Bilirubin Direct Bilirubin AST ALT Alkaline Phosphatase Total Creatine Kinase Total Protein Albumin Pending Globulin Triglycerides POC Glucose 110 Microbiology 02/19/19 07:00 Blood Culture (Wb) #2 - Anticubital Right Blood Culture - Final No growth in 5 days. 02/19/19 06:15 Blood Culture (Wb) - Anticubital Right Blood Culture - Final No growth in 5 days. Clinical Impression(s) from Imaging Studies Chest X-Ray 02/19/19 06:05 IMPRESSION: Bilateral lower airspace disease superimposed upon moderately severe pulmonary fibrosis. Differential considerations include bronchitis versus pneumonia. Electronically Signed: Marivel Smart MD at 6:39 EST , Service support , Chest X-Ray 02/20/19 06:35 IMPRESSION: Stable bilateral interstitial pulmonary infiltrates with pulmonary scarring and likely pulmonary fibrosis; there may be acute infiltrates or pulmonary venous congestion in addition to the chronic interstitial fibrotic changes and/or progression of pulmonary fibrosis with no change when compared to most recent chest radiograph Upper lobe COPD changes Ill-defined 8 mm density right upper lobe scar versus pulmonary lesion CT chest follow-up recommended Electronically Signed: Mohsen Zhong, at 7:15 EST Tel , Service support , KUB X-Ray 02/20/19 07:17 IMPRESSION: Appropriate positioning of enteric tube with the tip probably in the stomach. Electronically Signed: Marivel Smart MD at 9:42 EST , Service support , Chest X-Ray 02/20/19 07:40 IMPRESSION: 1. Appropriate positioning of endotracheal tube. 2. Heterogeneous bilateral basilar interstitial and air space consolidations may represent pneumonia. Electronically Signed: Marivel Smart MD at 8:59 EST , Service support , Chest CT 02/20/19 09:52 IMPRESSION: 1. Bilateral lower lobe airspace consolidations, atelectasis and pleural effusions likely secondary to pneumonia. 2. Emphysematous changes and subcortical pulmonary fibrosis. 3. Nonspecific pathologic mediastinal lymphadenopathy. Electronically Signed: Marivel Smart MD at 11:06 EST , Service support , Medical Necessity - Tobacco Use Smoking Status: Former smoker Tobacco Use: Cigarettes Assessment/Plan All Active Problems (Last Reviewed 08/01/18 @ 15:50 by Jackson Peter DO) Lower respiratory infection (Acute) Acute respiratory failure with hypoxia and hypercapnia (Acute) Pneumonia (Acute) Sepsis (Acute) Pulmonary embolism (Acute) Cholelithiasis NOS (Acute) Acute respiratory failure with hypoxia and hypercapnia (Acute) COPD with acute exacerbation (Acute) Gram-negative pneumonia (Acute) Acute hypercapnic respiratory failure (Acute) NSTEMI (non-ST elevated myocardial infarction) (Acute) COPD exacerbation (Acute) RECOMMENDATIONS: 1. Continue IV Levaquin, given pansensitive Pseudomonas on culture. 2. Continue propofol and fentanyl for sedation. 3. Continue tube feeds as ordered. 4. Await neurology recommendations with regard to any further work-up. 5. Phosphorus repletion as ordered. 6. Continue bronchodilators and IV steroids. Continue to wean steroids. 7. Continue to wean FiO2 to maintain oxygen saturations at or above 90%. 8. Continue Eliquis and Pepcid. IMPRESSIONS: 1. Acute on chronic combined respiratory failure likely secondary to COPD with exacerbation There is clinical concern for underlying community acquired pneumonia as precipitating etiology for the patient's exacerbation. However, it does appear that the patient has some baseline interstitial fibrosis, which was present on prior chest imaging, and appears to have progressed in the interim. Despite the use of noninvasive positive pressure ventilatory support, the patient continued to decompensate from a clinical perspective and did require intubation on the morning of February 20. The patient's sputum culture turned positive for pseudomonas aeruginosa. Therefore, the patient was transitioned from IV cefepime to Levaquin. She will remain on bronchodilators and IV steroids. Continue to wean FiO2 and PEEP as tolerated. Continue tube feeds as ordered. 2. Severe sepsis secondary to pseudomonal pneumonia Continue current supportive measures with bronchodilators, IV steroids and antimicrobials. 3. History of venous thromboembolic disease The patient does have a history of pulmonary emboli, for which she will be continued on Eliquis per outpatient regimen. 4. Troponin elevation/NSTEMI/Acute on Chronic Systolic Heart Failure/Pulmonary Hypertension Although initially felt to be secondary to demand ischemia, a review of the patient's repeat echocardiogram revealed worsening in her LV ejection fraction. Therefore, cardiology was consulted and is currently following to assist with medical management. The patient may require heart catheterization, pending improvement in clinical stability. Will defer management and further work-up to cardiology. 5. Chronic systolic heart failure/pulmonary hypertension Cardiology is currently following to assist with medical management. Lasix is currently on hold due to tenuous hemodynamics. 6. New onset seizure activity The patient apparently had a witnessed tonic-clonic seizure on 02/23. However, it resolved without intervention. No further seizure activity has been witnessed. EEG was completed, with read pending. Neurology tele-consult was completed yesterday. However, there is no documentation in the computer as to recommendations. 7. Tobacco dependency, currently in remission/hypertension/hyperlipidemia/peripheral vascular disease Complicates care, management, recovery and prognosis. Physical therapy to work with the patient. TIME: 35 minutes of critical care time, independent of procedures, was spent addressing the patient's acute on chronic combined respiratory failure, COPD with exacerbation, severe sepsis secondary to community-acquired pneumonia, history of venous thromboembolic disease, history of systolic heart failure, pulmonary hypertension, NSTEMI, review of all data and collaboration with care team. ([id number]) Code Visit [id number]: [id number] Critical care first hour
[2019-02-25 05:20] LABS: Albumin, Serum 2.9 g/dL (3.2-5.0); BUN 36 mg/dL (7-18); BUN/Creat Ratio 39.3 RATIO (10-20); Calcium,Total 7.7 mg/dL (8.5-10.1); Chloride 98 mmol/L (98-107); Creatinine, Serum 0.92 mg/dL (0.55-1.02); EST Glomerular Filtration Rate 64 mL/min (>60); Est Glom Filt Rate - Afr Amer 77 mL/min (>60); Estimated Creatinine Clearance 45.05 ml/min; Glucose 144 mg/dL (74-106); Magnesium 2.9 mg/dL (1.6-2.6); Phosphorus 1.9 mg/dL (2.5-4.9); Potassium 4.9 mmol/L (3.5-5.1); Sodium Level 139 mmol/L (136-145)
[2019-02-25 05:36] LABS: Bedside Glucose 141 mg/dL (70-110)
[2019-02-25] MEDS: TITRATION PARAMETER CHANGE 1 EACH IV (05:58)
[2019-02-25] MEDS: Propofol 10MG/Ml 1,000 MG/100 ML Bottle 12.2 MG CONT INF ×2 (06:06→11:40)
--- NOTE | 2019-02-25 06:58 | PN.CARD_ITS ---
Subjectve: Patient is intubated, sedated Objective: Vital Signs Temp Pulse Resp BP Pulse Ox 100.0 F H 88 14 114/61 91 02/25/19 06:00 02/25/19 06:00 02/25/19 06:00 02/25/19 06:00 02/25/19 06:00 Oxygen Flow Rate (L/min) 6 Oxygen Delivery Method Mechanical Ventilator Weight: 149 lb 11.102 oz Body Mass Index (BMI) 26.4 Intake and Output for Last 24 Hours 02/23/19 02/24/19 02/25/19 23:59 23:59 23:59 Intake Total 3376.55 / 3395.13 1720.07 / 1873.98 946.91 / 946.91 Output Total 3700 / 3700 1350 / 1350 250 / 250 Balance -323.45 / -304.87 370.07 / 523.98 696.91 / 696.91 General: - - Intubated, sedated HEENT: Atraumatic Lungs: Clear to auscultation Cardiovascular: Normal S1, Normal S2 Abdomen: Soft Extremities: No edema Skin: No Rashes 02/24/19 03:10: Magnesium 2.6 02/25/19 04:20: WBC 13.9 H, RBC 3.53 L, Hgb 9.8 L, Hct 31.9 L, MCV 90.4, MCH 27.8, MCHC 30.7 L, Plt Count 278, MPV 11.0, Immature Gran % (Auto) 1.100 H, Neut % (Auto) 84.8 H, Lymph % (Auto) 8.8 L, [place] % (Auto) 5.1, Eos % (Auto) 0.1, Baso % (Auto) 0.1, Absolute Neuts (auto) 11.8 H, Nucleated RBC % 0.5 02/25/19 04:20: Sodium 139, Potassium 4.9, Chloride 98, Carbon Dioxide 37.0 H, BUN 36 H, Creatinine 0.92, Est GFR (MDRD) Af Amer 77, Est GFR (MDRD) Non-Af 64, BUN/Creatinine Ratio 39.3 H, Glucose 144 H, Calcium 7.7 L, Phosphorus 1.9 L, Magnesium 2.9 H Rhythm: EKG: ECHO: Stress Test: Cardiac Cath: PCI: CT Surgery: Holter monitor: EPS: PPM: CXR: Chest CT Scan: Medical Necessity - Tobacco Use Smoking Status: Former smoker Tobacco Use: Cigarettes Assessment/Plan 1. Non-ST elevation myocardial infarction * Patient appears to present with a non-ST elevation myocardial infarction. This is in the throes of a respiratory infection with bilateral pneumonia * My recommendation would be to continue to treat the underlying cause. Because of her significant left ventricular systolic dysfunction she will eventually need a left heart catheterization to assess her coronary anatomy especially as she has undergone remote left main stenting as well as right coronary artery stenting. * We will wait for her to be extubated to have this performed. * 2. Congestive heart failure-acute systolic * Patient appears to have systolic heart failure * I suspect the above is on the basis of ischemia. A Takutsobo reaction cannot be completely excluded but this would need to be confirmed via cardiac catheterization * 3. Left ventricular systolic dysfunction * Patient appears to have significant right ventricular systolic dysfunction whi ch is new. * After patient is extubated would continue to titrate her on beta-jenna and PENG inhibitor as appropriate
--- NOTE | 2019-02-25 07:17 | PN_ITS ---
Patient Problems: Active and Suspected Problems (Last Reviewed 08/01/18 @ 15:50 by Jackson Peter DO) Acute respiratory failure with hypoxia and hypercapnia (Acute) Pneumonia (Acute) Sepsis (Acute) Subjective: \ Levaquin Day #2 previously on Cefepime 73-year-old female with a past medical history of interstitial fibrosis admitted with acute on chronic hypoxic respiratory failure secondary to acute COPD exacerbation/Pseudomonas pneumonia. Mechanically ventilated-day #6 ventilator. Currently 91% on a 35% FiO2 with a respiratory rate of 14. Current blood pressure is 114/61 with a heart rate of 88. Not on pressors. T-max for the past 24 hours is 101.9 ?F and this is a core temp. Current temp is 100 ?F. Fluid balance for 02/24/2019 was +370. Fluid balance since admission is +5179. All labs personally reviewed. White blood cell count today is stable at 13.9(she is on solu-medrol), hemoglobin is stable at 9.8. Platelets are within normal limits. There is a left shift present. Serum bicarb is elevated at 37 and the potassium is 4.9. BUN is 36 with a creatinine of 0.92, down from 1.33 at admission. Phosphorus is low at 1.9 and the magnesium is 2.9. Urine culture from 02/24/2019 is currently pending. Blood cultures from 02/24/2019 are also pending. ECHO shows a 20% EF. EKG with widespread deep T wave inversions.....new since admission. Has been diagnosed with a NSTEMI. She had a cardiac catheterization and March 2018 that showed a 50% ejection fraction. There was anterior hypokinesis, apical hypokinesis and inferior apical hypokinesis. The left main has been previously stented and was patent. The proximal LAD had a 10 to 25% stenosis. Diagonal #1 had a 75% stenosis and OM1 had a 75% stenosis. The RCA has been previously stented and the stent was patent. She is being followed by cardiology and I reviewed Dr. Roldan's not from today. She is over 5 L up and on no diuretics......BP is marginal today....more likely than not due to the increase in the sedatives for agitation. Dr. Golden's note for today was reviewed. She is tolerating the TF with no significant residuals. No secretions from the ETT today. + BM last night Reviewed the teleneurology consult - Physical Exam Vitals/I&O's: Vital Signs Temp Pulse Resp BP Pulse Ox 100.0 F H 88 14 114/61 91 02/25/19 06:00 02/25/19 06:00 02/25/19 06:00 02/25/19 06:00 02/25/19 06:00 Oxygen Flow Rate (L/min) 6 Oxygen Delivery Method Mechanical Ventilator Weight: 149 lb 11.102 oz Body Mass Index (BMI) 26.4 Intake and Output for Last 24 Hours 02/23/19 02/24/19 02/25/19 23:59 23:59 23:59 Intake Total 3376.55 / 3395.13 1720.07 / 1873.98 946.91 / 946.91 Output Total 3700 / 3700 1350 / 1350 250 / 250 Balance -323.45 / -304.87 370.07 / 523.98 696.91 / 696.91 General: - - sedated and mechanically ventilated. HEENT: Atraumatic, Normocephalic, - - Pupils are equal and reactive to light. He resists me opening her eyes. Oral: Moist Mucosa Neck: No Nodes, Trachea Midline Lungs: Clear to auscultation - anterior and lateral Cardiovascular: Regular Rhythm, Normal S1, Normal S2, No murmurs, No rub noted, No Gallop, Tachycardic Abdomen: Soft, Non-Distended, Hypoactive Bowel Sounds, - - no guarding with palpation Extremities: No cyanosis, No edema Skin: No rashes, No breakdown Musculoskeletal: No Muscle Wasting Neurological: Cranial nerves II-XII grossly intact, - - moves all extremities. She is restrained due to agitation Microbiology Past 72 Hours 02/19/19 07:00 Blood Culture (Wb) #2 - Anticubital Right Blood Culture - Final No growth in 5 days. 02/19/19 06:15 Blood Culture (Wb) - Anticubital Right Blood Culture - Final No growth in 5 days. 02/20/19 09:00 Sputum, Induced/Lukens Gram Stain - Final 02/20/19 09:00 Sputum, Induced/Lukens Respiratory Culture - Final Pseudomonas aeroginosa Laboratory Results 02/24/19 03:10: Magnesium 2.6 02/24/19 11:10: POC Glucose 116 H 02/24/19 17:06: POC Glucose 82 02/24/19 23:05: POC Glucose 110 02/25/19 04:20: WBC 13.9 H, RBC 3.53 L, Hgb 9.8 L, Hct 31.9 L, MCV 90.4, MCH 27.8, MCHC 30.7 L, RDW Std Deviation 51.3 H, RDW Coeff of Abhinav 16.4 H, Plt Count 278, MPV 11.0, Immature Gran % (Auto) 1.100 H, Neut % (Auto) 84.8 H, Lymph % (Auto) 8.8 L, [place] % (Auto) 5.1, Eos % (Auto) 0.1, Baso % (Auto) 0.1, Absolute Neuts (auto) 11.8 H, Absolute Lymphs (auto) 1.22, Nucleated RBC % 0.5 02/25/19 04:20: Sodium 139, Potassium 4.9, Chloride 98, Carbon Dioxide 37.0 H, BUN 36 H, Creatinine 0.92, Estim Creat Clear Calc 45.05, Est GFR (MDRD) Af Amer 77, Est GFR (MDRD) Non-Af 64, BUN/Creatinine Ratio 39.3 H, Glucose 144 H, Calcium 7.7 L, Phosphorus 1.9 L, Magnesium 2.9 H, Albumin 2.9 L 02/25/19 05:30: POC Glucose 141 H Current Medications Acetaminophen (Tylenol Liquid) 650 mg GT Q6H PRN PRN PRN Reason: Pain 1-3/10 or Fever >100.7 Last Admin: 02/23/19 17:56 Dose: 650 mg Documented by: Apixaban (Eliquis) 5 mg GT BID [facility] Last Admin: 02/24/19 21:10 Dose: 5 mg Documented by: Aspirin (Aspirin, Baby) 81 mg GT DAILY@0800 [facility] Last Admin: 02/24/19 10:56 Dose: 81 mg Documented by: Atorvastatin Calcium (Lipitor) 80 mg GT QHS [facility] Last Admin: 02/24/19 21:10 Dose: 80 mg Documented by: Chlorhexidine Gluconate () 1 each TOPICAL DAILY [facility] Last Admin: 02/24/19 02:50 Dose: 1 each Documented by: Chlorhexidine Gluconate () 15 ml PO BID [facility] Last Admin: 02/24/19 21:30 Dose: 15 ml Documented by: Clopidogrel Bisulfate (Plavix) 75 mg GT DAILY [facility] Last Admin: 02/24/19 10:56 Dose: 75 mg Documented by: Famotidine (Pepcid) 20 mg GT DAILY [facility] Last Admin: 02/24/19 10:56 Dose: 20 mg Documented by: Fenofibrate (Tricor) 145 mg GT DAILY [facility] Last Admin: 02/24/19 10:57 Dose: 145 mg Documented by: Glucagon () 1 mg IM .X1 PRN PRN Reason: Hypoglycemia Sodium Chloride () 250 mls @ 15 mls/hr IV .[id number] PRN PRN Reason: Saline Flush Last Infusion: 02/23/19 22:15 Dose: 0 mls/hr Documented by: Sodium Chloride () 250 mls @ 15 mls/hr IV .[id number] PRN PRN Reason: Additional IVPB Infusion Dextrose (Dextrose 10%-Water) 250 mls @ 999 mls/hr IV .Q16M PRN; Protocol PRN Reason: HYPOGLYCEMIA Fentanyl () 100 mls @ 15 mls/hr IV UD [facility]; Protocol Last Titration: 02/25/19 06:00 Dose: 200 mcg/hr, 20 mls/hr Documented by: Enteral Nutritional Formula (Vital Af 1.2 [place] Liquid) 1,000 mls @ 55 mls/hr GT .[id number] [facility] Last Admin: 02/25/19 05:24 Dose: Not Given Documented by: Propofol (Diprivan) 1,000 mg in 100 mls @ 4.074 mls/hr CONT INF .Q12H [facility]; Protocol Last Admin: 02/25/19 06:06 Dose: 30 mcg/kg/min, 12.2 mls/hr Documented by: Levofloxacin (Levaquin Iv) 750 mg in 150 mls @ 100 mls/hr IV Q48 [facility] Sodium Phosphate 30 mm/ Sodium (Chloride) 260 mls @ 62.5 mls/hr IV X1 ONE Stop: 02/25/19 09:31 Last Admin: 02/25/19 05:54 Dose: 62.5 mls/hr Documented by: Insulin Human Lispro (Humalog Kwikpen (Bkc)) 0 unit SC Q6 [facility]; Protocol Last Admin: 02/25/19 05:32 Dose: Not Given Documented by: Ipratropium [place] (Atrovent) 0.5 mg INHALATION Q4H.RT [facility] Last Admin: 02/25/19 07:06 Dose: 0.5 mg Documented by: Lorazepam (Ativan) 2 mg IV Q4H PRN PRN PRN Reason: SEIZURES Last Admin: 02/23/19 23:38 Dose: 2 mg Documented by: Methylprednisolone (Solu-Medrol) 40 mg IV Q12 [facility] Last Admin: 02/24/19 21:10 Dose: 40 mg Documented by: Nicotine (Nicoderm Cq (Pbkc)) 21 mg TRANSDERM. DAILY [facility] Last Admin: 02/24/19 10:54 Dose: 21 mg Documented by: Nitroglycerin (Nitrostat) 0.4 mg SUBLINGUAL Q5M PRN PRN Reason: CHEST Polyethylene Glycol (Miralax) 17 gm GT DAILY PRN PRN Reason: Constipation Last Admin: 02/22/19 15:59 Dose: 17 gm Documented by: Potassium Chloride (Potassium Chl Soln) 20 meq GT BIDCM [facility] Last Admin: 02/24/19 17:09 Dose: 20 meq Documented by: Senna/Docusate Sodium (Senokot-S, [place]-Colace) 2 tablet GT BID [facility] Last Admin: 02/24/19 21:10 Dose: Not Given Documented by: Sodium Chloride () 10 - 40 ml IV UD PRN PRN Reason: SALINE FLUSH Last Admin: 02/24/19 05:24 Dose: 40 ml Documented by: Medical Necessity - Tobacco Use Smoking Status: Former smoker Tobacco Use: Cigarettes Assessment/Plan All Active Problems (Last Reviewed 08/01/18 @ 15:50 by Jackson Peter DO) Lower respiratory infection (Acute) Acute respiratory failure with hypoxia and hypercapnia (Acute) Pneumonia (Acute) Sepsis (Acute) Pulmonary embolism (Acute) Cholelithiasis NOS (Acute) Acute respiratory failure with hypoxia and hypercapnia (Acute) COPD with acute exacerbation (Acute) Gram-negative pneumonia (Acute) Acute hypercapnic respiratory failure (Acute) NSTEMI (non-ST elevated myocardial infarction) (Acute) COPD exacerbation (Acute) Impressions 1. severe sepsis with Acute on chronic hypoxic respiratory failure secondary to acute exacerbation COPD and pseudomonas aeruginosa pneumonia. 2. Seizure-possibly secondary to Precedex and/or fever. Precedex and Seroquel were discontinued. I reviewed the tele-neurology consult and will start Keppra 500 mg per the NG tube twice daily and order a noncontrasted CT scan of the brain. 3. Pseudomonas aeruginosa pneumonia-bibasilar. Previously on cefepime and now on Levaquin. 4. BL pleural effusions 5. acute severe CM with a 20% EF, possible Takotsubo's CM? Seen by cardiology and will likely need a cath to r/o CAD after the PNA has resolved 6. Acute systolic CHF - up 6 L since admission - may need to diurese some more to get her off the vent - the effusions appear smaller on the CT chest today. Still with Bibasilar infiltrates +/- compressive atelectasis but there appears to have been some improvement 7. Hypophosphatemia-supplementation has been ordered 8. hypotension - may be related to the increased sedation necessary to control agitation? Urine and blood cultures were sent again yesterday and the results are pending. MRSA nasal swab was negative at admission. WBC remains increased however she is on IV steroids. Start Levophed to maintain the MAP at at least 65. Start Keppra 500 mg Q 12H start Seroquel 12.[address] scan of the brain and the chest today Check a BNP Levophed to maintain the MAP at 65 or greater. Supplement the phosphorous Recheck lab 02/27 If she has additional seizures consider changing the Levaquin, although she had a seizure prior to starting Levaquin? sputum culture today and repeat a nasal MRSA....if this has turned + will add Vanco. Code Visit Inpatient E&M: 19456 [facility] L3
--- NOTE | 2019-02-25 09:08 | CT_ITS ---
STUDY: CT BRAIN WITHOUT CONTRAST REASON FOR EXAM: Female, 73 years old. New onset of seizure. RADIATION DOSAGE (If Supplied By Facility): CTDIvol = ( 44.99 ) mGy, DLP = ( 762.36 ) mGycm TECHNIQUE: Transaxial CT imaging of the brain was performed without administration of intravenous contrast material. Individualized dose optimization techniques were used for this CT. COMPARISON: 07/26/2010. FINDINGS: Normal soft tissue structures. Normal calvarium. There is mild cerebral atrophy with widening of the extra-axial spaces and ventricular dilatation. There are areas of decreased attenuation within the white matter tracts of the supratentorial brain, consistent with microvascular disease changes. Normal basal ganglia and thalami. Normal brainstem. Normal cerebellum. There is no intracranial hemorrhage. There are no findings of an acute ischemic infarction. Normal visualized paranasal sinuses. CT/Brain/Head without Contrast IMPRESSION: No acute intracranial process. Electronically Signed: Mac Hardin MD at 13:44 EST Tel , Service support ,
--- NOTE | 2019-02-25 09:09 | CT_ITS ---
STUDY: CT CHEST WITHOUT CONTRAST REASON FOR EXAM: Female, 73 years old. New onset of seizure. Possible pneumonia. RADIATION DOSAGE (If Supplied By Facility): CTDIvol = ( 15.28 ) mGy, DLP = ( 507.96 ) mGycm TECHNIQUE: Transaxial imaging was performed without the administration of intravenous contrast material. Individualized dose optimization techniques were used for this CT. COMPARISON: None. FINDINGS: There is an endotracheal tube is about the level of the neeru. There is a left-sided PICC line in the superior vena cava. There is an infiltrate in the left lower lobe likely due to pneumonia. There is mild infiltrate in right lower lobe. There are prominent interstitial markings bilaterally probably chronic and due to pulmonary fibrosis. The lungs are somewhat hyperinflated. There are small bilateral pleural effusions larger on the right side. Normal heart and pericardium. There are prominent mediastinal nodes in the aortopulmonic window. There may be prominent nodes in the right hilar region difficult to evaluate without contrast. Normal unenhanced pulmonary arteries. There is atherosclerotic calcification of the aortic arch with tortuosity and elongation of the aortic arch and descending thoracic aorta. There is demineralization of the osseous structures and mild degenerative changes of the spine. The visualized portions of the upper abdomen demonstrate no acute process. There is a nasogastric tube there is a nasogastric tube in the stomach but the tip is not included on this exam. CT/Chest without Contrast IMPRESSION: 1. Bilateral lower lobes infiltrates worse on the left side could be due to pneumonia. 2. Small bilateral pleural effusions. 3. Prominent mediastinal nodes likely reactive. Electronically Signed: Mac Hardin MD at 13:49 EST Tel , Service support ,
[2019-02-25] MEDS: 0.9% Saline Lock 10 ML Syringe IV (10:09)
[2019-02-25] MEDS: CHLORHEXIDINE GLUC 2% CLOTH 1 EACH TOWELETTE TOPICAL (10:09)
[2019-02-25] MEDS: Chlorhexidine 15 ML PO ×2 (10:09→21:34)
[2019-02-25] MEDS: QUEtiapine 25 MG Tablet 12.5 MG NG ×2 (10:10→21:36)
[2019-02-25] MEDS: levETIRAcetam Oral Solution 500 MG/5 ML PO ×2 (10:11→21:35)
[2019-02-25] MEDS: Fenofibrate 145 MG Tablet GT (10:11)
[2019-02-25] MEDS: Famotidine 20 MG Tablet GT (10:11)
[2019-02-25] MEDS: Aspirin 81 MG TAB.CHEW GT (10:12)
[2019-02-25] MEDS: APIXABAN 5 MG TABLET GT ×2 (10:13→21:34)
[2019-02-25] MEDS: Clopidogrel Bisulfate 75 MG Tablet GT (10:13)
[2019-02-25 10:36] LABS: BNP,B-Type NATRIURETIC PEPTIDE 930.9 pg/mL (0-100)
[2019-02-25 11:45] LABS: Bedside Glucose 120 mg/dL (70-110)
[2019-02-25 18:56] LABS: Bedside Glucose 145 mg/dL (70-110)
--- NOTE | 2019-02-25 19:29 | NURSING ---
While giving report to LEIGH Lee, noted that the Levophed bag was still at full volume. IV pump shows no error and that med is running at 30 mcg/min, shows 82 ml volume left. Upon checking lines, picc line lumen was clamped, however pump was not showing downstream occlusion error. IV pump appears that medication is running but bag remains full. IV pump pulled from service for pump malfunction. Dr Jacobs made aware that pt was not getting medication today d/t pump malfunction.
[2019-02-25] MEDS: Propofol 10MG/Ml 1,000 MG/100 ML Bottle 8.1 MG CONT INF (21:32)
[2019-02-25] MEDS: Atorvastatin Calcium 80 MG Tablet GT (21:35)
[2019-02-25] MEDS: Vital AF 1.2 Cal Liquid 1,000 ML 55 ML GT (23:18)
[2019-02-25 23:26] LABS: Bedside Glucose 132 mg/dL (70-110)
[2019-02-26] VITALS (42 sets, daily range): BP systolic 82–154; BP diastolic 51–110; PULSE 60–135; RESP 14–28; TEMP 36.8–37.5; O2SAT 90–100
[2019-02-26 02:42] LABS: M R Staph aureus DNA By PCR Negative (Negative); Probe Check PASS; Specimen Processing Control PASS
[2019-02-26] MEDS: Ipratropium 0.5 MG/2.5 ML SOLUTION INHALATION ×5 (03:00→18:51)
[2019-02-26] MEDS: fentaNYL drip 100 ML 20 MCG IV (03:04)
[2019-02-26] MEDS: Insulin Lispro 100 UNIT/ML INSULN.PEN SC (05:48)
[2019-02-26 05:55] LABS: Bedside Glucose 167 mg/dL (70-110)
[2019-02-26 06:20] LABS: Absolute Lymphocyte Count 0.84 X10^3/uL (0.83-4.51); Absolute Neutrophil Count 8.9 X10^3/uL (2.0-7.7); Eosinophil# 0.01 X10^3/uL; Eosinophils% 0.1 % (0-5); Hematocrit 29.5 % (37-47); Hemoglobin 8.9 g/dL (12.0-15.0); Lymphocyte # 0.84 X10^3/ul (4.0); Lymphocyte % 8.1 % (19-41); Mean Corp Hgb Conc 30.2 g/dL (32-36); Mean Corpuscular Hgb 27.6 pg (27.0-32.0); Mean Corpuscular Volume 91.6 fL (81-99); Mean Platelet Vol. 11.3 fl (6.2-12.0); Monocyte# 0.54 X10^3/uL; Monocyte% 5.2 % (0-10); NRBC Flagged by Analyzer 0.4 % (0-5); Neutrophil % 85.3 % (47-70); Platelet Count 240 K/mm3 (150-450); RBC Distribution Width CV 17.2 % (11.6-14.6); RBC Distribution Width SD 52.3 fl (35.1-43.9); Red Blood Count 3.22 M/mm3 (4.2-5.4); White Blood Count 10.4 K/mm3 (4.4-11.0)
[2019-02-26 06:58] LABS: Anion Gap 5 (5-15); BUN 34 mg/dL (7-18); BUN/Creat Ratio 38.2 RATIO (10-20); Calcium,Total 7.5 mg/dL (8.5-10.1); Chloride 99 mmol/L (98-107); Creatinine, Serum 0.89 mg/dL (0.55-1.02); EST Glomerular Filtration Rate 66 mL/min (>60); Est Glom Filt Rate - Afr Amer 80 mL/min (>60); Estimated Creatinine Clearance 46.57 ml/min; Glucose 155 mg/dL (74-106); Magnesium 2.7 mg/dL (1.6-2.6); Phosphorus 3.7 mg/dL (2.5-4.9); Potassium 4.6 mmol/L (3.5-5.1); Sodium Level 138 mmol/L (136-145)
[2019-02-26] MEDS: Propofol 10MG/Ml 1,000 MG/100 ML Bottle 8.1 MG CONT INF (07:12)
--- NOTE | 2019-02-26 07:27 | PN_ITS ---
Subjective: Patient did okay overnight. This morning, patient with significant hypertension and tachycardia associated with spontaneous awakening trial. Patient's hemodynamics did improve following restarting of sedation. Patient was unable to answer any questions this morning by time of my arrival. Patient did have some difficulty with the pump for Levophed overnight, but this has been able to be discontinued. Objective: CT of the chest yesterday showed a left lower lobe infiltrate with bilateral small effusions and significant emphysematous changes. EEG showed generalized slowing and some triphasic response indicative of hepatic encephalopathy. General: - - Intubated and sedated. RASS -3. Appears older than stated age. HEENT: Atraumatic, PERRLA, EOMI, Normocephalic, - - No scleral icterus or injection noted Oral: Moist Mucosa, No Gingival or Mucosal Lesions/ Ulcerations Neck: Supple, No JVD, No Nodes, Trachea Midline Lungs: No rhonchi, No wheeze, No rales, Diminished, - - Good ventilator synchrony. Cardiovascular: Regular rate, Regular Rhythm, Normal S1, Normal S2, No murmurs, No rub noted, No Gallop, - - Sinus tachycardia noted during Spontaneous awaken ing trial Abdomen: Bowel Sounds Present, Soft, Non Tender Extremities: No cyanosis, No edema, Clubbing Skin: No rashes, No breakdown Musculoskeletal: No Tenderness to Palpation of Joints or Extremities Lymphatic: No Cervical, Supraclavicular, or Inguinal Adenopathy Neurological: Neuro grossly intact - Significantly sedated during my evaluation Psych/Mental Status: Flat Affect Vital Signs Temp Pulse Resp BP Pulse Ox 37.5 C H 80 14 100/64 93 02/26/19 00:00 02/26/19 06:00 02/26/19 06:00 02/26/19 06:00 02/26/19 06:00 Oxygen Flow Rate (L/min) 6 Oxygen Delivery Method Mechanical Ventilator Weight: 68.6 kg Body Mass Index (BMI) 26.4 Intake and Output for Last 24 Hours 02/24/19 02/25/19 02/26/19 23:59 23:59 23:59 Intake Total 1720.07 / 1873.98 2440.42 / 2848.52 889.39 / 889.39 Output Total 1350 / 1350 750 / 1050 600 / 600 Balance 370.07 / 523.98 1690.42 / 1798.52 289.39 / 289.39 Labs (Last 48 Hours) 02/24/19 02/24/19 02/24/19 03:10 11:10 17:06 WBC RBC Hgb Hct MCV MCH MCHC RDW Std Deviation RDW Coeff of Abhinav Plt Count MPV Immature Gran % (Auto) Neut % (Auto) Lymph % (Auto) [place] % (Auto) Eos % (Auto) Baso % (Auto) Absolute Neuts (auto) Absolute Lymphs (auto) Nucleated RBC % Sodium Potassium Chloride Carbon Dioxide Anion Gap BUN Creatinine Estim Creat Clear Calc Est GFR (MDRD) Af Amer Est GFR (MDRD) Non-Af BUN/Creatinine Ratio Glucose Calcium Phosphorus Magnesium 2.6 B-Natriuretic Peptide Albumin MRSA (PCR) POC Glucose 116 H 82 02/24/19 02/25/19 02/25/19 23:05 04:20 04:20 WBC 13.9 H RBC 3.53 L Hgb 9.8 L Hct 31.9 L MCV 90.4 MCH 27.8 MCHC 30.7 L RDW Std Deviation 51.3 H RDW Coeff of Abhinav 16.4 H Plt Count 278 MPV 11.0 Immature Gran % (Auto) 1.100 H Neut % (Auto) 84.8 H Lymph % (Auto) 8.8 L [place] % (Auto) 5.1 Eos % (Auto) 0.1 Baso % (Auto) 0.1 Absolute Neuts (auto) 11.8 H Absolute Lymphs (auto) 1.22 Nucleated RBC % 0.5 Sodium 139 Potassium 4.9 Chloride 98 Carbon Dioxide 37.0 H Anion Gap BUN 36 H Creatinine 0.92 Estim Creat Clear Calc 45.05 Est GFR (MDRD) Af Amer 77 Est GFR (MDRD) Non-Af 64 BUN/Creatinine Ratio 39.3 H Glucose 144 H Calcium 7.7 L Phosphorus 1.9 L Magnesium 2.9 H B-Natriuretic Peptide Albumin 2.9 L MRSA (PCR) POC Glucose 110 02/25/19 02/25/19 02/25/19 04:20 05:30 11:38 WBC RBC Hgb Hct MCV MCH MCHC RDW Std Deviation RDW Coeff of Abhinav Plt Count MPV Immature Gran % (Auto) Neut % (Auto) Lymph % (Auto) [place] % (Auto) Eos % (Auto) Baso % (Auto) Absolute Neuts (auto) Absolute Lymphs (auto) Nucleated RBC % Sodium Potassium Chloride Carbon Dioxide Anion Gap BUN Creatinine Estim Creat Clear Calc Est GFR (MDRD) Af Amer Est GFR (MDRD) Non-Af BUN/Creatinine Ratio Glucose Calcium Phosphorus Magnesium B-Natriuretic Peptide 930.9 H Albumin MRSA (PCR) POC Glucose 141 H 120 H 02/25/19 02/25/19 02/25/19 18:52 23:13 23:50 WBC RBC Hgb Hct MCV MCH MCHC RDW Std Deviation RDW Coeff of Abhinav Plt Count MPV Immature Gran % (Auto) Neut % (Auto) Lymph % (Auto) [place] % (Auto) Eos % (Auto) Baso % (Auto) Absolute Neuts (auto) Absolute Lymphs (auto) Nucleated RBC % Sodium Potassium Chloride Carbon Dioxide Anion Gap BUN Creatinine Estim Creat Clear Calc Est GFR (MDRD) Af Amer Est GFR (MDRD) Non-Af BUN/Creatinine Ratio Glucose Calcium Phosphorus Magnesium B-Natriuretic Peptide Albumin MRSA (PCR) Negative POC Glucose 145 H 132 H 02/26/19 02/26/19 02/26/19 05:47 06:15 06:15 WBC 10.4 RBC 3.22 L Hgb 8.9 L Hct 29.5 L MCV 91.6 MCH 27.6 MCHC 30.2 L RDW Std Deviation 52.3 H RDW Coeff of Abhinav 17.2 H Plt Count 240 MPV 11.3 Immature Gran % (Auto) 1.300 H Neut % (Auto) 85.3 H Lymph % (Auto) 8.1 L [place] % (Auto) 5.2 Eos % (Auto) 0.1 Baso % (Auto) 0.0 Absolute Neuts (auto) 8.9 H Absolute Lymphs (auto) 0.84 Nucleated RBC % 0.4 Sodium 138 Potassium 4.6 Chloride 99 Carbon Dioxide 34.0 H Anion Gap 5 BUN 34 H Creatinine 0.89 Estim Creat Clear Calc 46.57 Est GFR (MDRD) Af Amer 80 Est GFR (MDRD) Non-Af 66 BUN/Creatinine Ratio 38.2 H Glucose 155 H Calcium 7.5 L Phosphorus 3.7 Magnesium 2.7 H B-Natriuretic Peptide Albumin MRSA (PCR) POC Glucose 167 H Microbiology 02/19/19 07:00 Blood Culture (Wb) #2 - Anticubital Right Blood Culture - Final No growth in 5 days. 02/19/19 06:15 Blood Culture (Wb) - Anticubital Right Blood Culture - Final No growth in 5 days. Clinical Impression(s) from Imaging Studies Brain CT 02/25/19 09:08 IMPRESSION: No acute intracranial process. Electronically Signed: Mac Hardin MD at 13:44 EST Tel , Service support , Chest CT 02/25/19 09:09 IMPRESSION: 1. Bilateral lower lobes infiltrates worse on the left side could be due to pneumonia. 2. Small bilateral pleural effusions. 3. Prominent mediastinal nodes likely reactive. Electronically Signed: Mac Hardin MD at 13:49 EST Tel , Service support , Medical Necessity - Tobacco Use Smoking Status: Former smoker Tobacco Use: Cigarettes Assessment/Plan All Active Problems (Last Reviewed 08/01/18 @ 15:50 by Jackson Peter DO) Lower respiratory infection (Acute) Acute respiratory failure with hypoxia and hypercapnia (Acute) Pneumonia (Acute) Sepsis (Acute) Pulmonary embolism (Acute) Cholelithiasis NOS (Acute) Acute respiratory failure with hypoxia and hypercapnia (Acute) COPD with acute exacerbation (Acute) Gram-negative pneumonia (Acute) Acute hypercapnic respiratory failure (Acute) NSTEMI (non-ST elevated myocardial infarction) (Acute) COPD exacerbation (Acute) RECOMMENDATIONS: 1. Continue IV Levaquin, given pansensitive Pseudomonas on culture. 2. Continue propofol and fentanyl for sedation. Increase Seroquel 3. Continue tube feeds as ordered. 4. Check ammonia level given suspicion for hepatic encephalopathy by EEG 5. Electrolyte repletion as indicated 6. Continue bronchodilators and IV steroids. Continue to wean steroids clinically. 7. Continue to wean FiO2 to maintain oxygen saturations at or above 90%. 8. Continue Eliquis and Pepcid. IMPRESSIONS: 1. Acute on chronic combined respiratory failure likely secondary to COPD with exacerbation Patient with probable pseudomonal pneumonia of the left lower lobe. Patient has remained on positive pressure ventilatory support, but it is unclear if this is secondary to continued difficulty with respirations versus agitation associated with spontaneous awakening trials. Will increase Seroquel and continue. Cultures remain negative indicating probable drug-induced fever from Precedex therapy. We will continue with IV Solu-Medrol for now. 2. Septic shock secondary to pseudomonal pneumonia Continue current supportive measures with bronchodilators, IV steroids and antimicrobials. Patient has been weaned off of Levophed therapy. This will be discontinued off the MAY. 3. History of venous thromboembolic disease The patient does have a history of pulmonary emboli, for which she will be continued on Eliquis per outpatient regimen. 4. Troponin elevation/NSTEMI/Acute on Chronic Systolic Heart Failure/Pulmonary Hypertension Although initially felt to be secondary to demand ischemia, a review of the patient's repeat echocardiogram revealed worsening in her LV ejection fraction. Therefore, cardiology was consulted and is currently following to assist with medical management. The patient may require heart catheterization, pending improvement in clinical stability. Will defer management and further work-up to cardiology. 5. Chronic systolic heart failure/pulmonary hypertension Cardiology is currently following to assist with medical management. May be able to reevaluate diuretic therapy after 24 hours as Levophed has been discontinued. 6. New onset seizure activity The patient apparently had a witnessed tonic-clonic seizure on 02/23. However, it resolved without intervention. No further seizure activity has been witnessed. EEG was completed, with read pending. Neurology tele-consult was completed yesterday. 7. Tobacco dependency, currently in remission/hypertension/hyperlipidemia/peripheral vascular disease Complicates care, management, recovery and prognosis. Physical therapy to work with the patient. TIME: 33 minutes of critical care time, independent of procedures, was spent addressing the patient's acute on chronic combined respiratory failure, COPD with exacerbation, severe sepsis secondary to community-acquired pneumonia, history of venous thromboembolic disease, history of systolic heart failure, pulmonary hypertension, NSTEMI, review of all data and collaboration with care team. (6:30 AM to 7:30 AM) Code Visit [id number]: [id number] Critical care first hour
--- NOTE | 2019-02-26 07:48 | PN_ITS ---
Patient Problems: Active and Suspected Problems (Last Reviewed 08/01/18 @ 15:50 by Jackson Peter DO) Acute respiratory failure with hypoxia and hypercapnia (Acute) Pneumonia (Acute) Sepsis (Acute) Reason for Visit: Respiratory failure/pneumonia/NSTEMI Subjective: Patient was seen and examined. Remains intubated. Failed spontaneous awakening trial. Off pressors. Remains febrile. Remains on propofol and fentanyl. Sedated Objective: Physical exam: General: intubated, not following commands, moves around in bed, pale, not jaundiced HEENT: Atraumatic, PERRLA, EOMI, Normocephalic Oral: Dry Mucosa Neck: Supple, No JVD, Negative Carotid Bruits Lungs: - -breath sounds decreased bibasally, no wheezes or crackles. Intubated. Cardiovascular: Regular rate, Regular Rhythm, Normal S1, Normal S2, No murmurs Abdomen: Bowel Sounds Present, Soft, Non Tender Extremities: No clubbing, No cyanosis, No edema, Capillary Refill Less than 3 Seconds Skin: No rashes, No breakdown Musculoskeletal: No Tenderness to Palpation of Joints or Extremities Lymphatic: No Cervical, Supraclavicular, or Inguinal Adenopathy Neurological: Cranial nerves II-XII grossly intact, Neuro grossly intact, Motor Exam 5/5 strength throughout Psych/Mental Status: intubated, on sedation, not following commands Vitals/I&O's: Vital Signs Temp Pulse Resp BP Pulse Ox 99.5 F H 71 14 100/64 93 02/26/19 00:00 02/26/19 06:55 02/26/19 06:00 02/26/19 06:00 02/26/19 06:00 Oxygen Flow Rate (L/min) 6 Oxygen Delivery Method Mechanical Ventilator Weight: 68.6 kg Body Mass Index (BMI) 26.4 Intake and Output for Last 24 Hours 02/24/19 02/25/19 02/26/19 23:59 23:59 23:59 Intake Total 1720.07 / 1873.98 2440.42 / 2848.52 909.39 / 909.39 Output Total 1350 / 1350 750 / 1050 600 / 600 Balance 370.07 / 523.98 1690.42 / 1798.52 309.39 / 309.39 Microbiology Past 72 Hours 02/19/19 07:00 Blood Culture (Wb) #2 - Anticubital Right Blood Culture - Final No growth in 5 days. 02/19/19 06:15 Blood Culture (Wb) - Anticubital Right Blood Culture - Final No growth in 5 days. Laboratory Results 02/25/19 04:20: B-Natriuretic Peptide 930.9 H 02/25/19 11:38: POC Glucose 120 H 02/25/19 18:52: POC Glucose 145 H 02/25/19 23:13: POC Glucose 132 H 02/25/19 23:50: MRSA (PCR) Negative 02/26/19 05:47: POC Glucose 167 H 02/26/19 06:15: WBC 10.4, RBC 3.22 L, Hgb 8.9 L, Hct 29.5 L, MCV 91.6, MCH 27.6, MCHC 30.2 L, RDW Std Deviation 52.3 H, RDW Coeff of Abhinav 17.2 H, Plt Count 240, MPV 11.3, Immature Gran % (Auto) 1.300 H, Neut % (Auto) 85.3 H, Lymph % (Auto) 8.1 L, [place] % (Auto) 5.2, Eos % (Auto) 0.1, Baso % (Auto) 0.0, Absolute Neuts (auto) 8.9 H, Absolute Lymphs (auto) 0.84, Nucleated RBC % 0.4 02/26/19 06:15: Sodium 138, Potassium 4.6, Chloride 99, Carbon Dioxide 34.0 H, Anion Gap 5, BUN 34 H, Creatinine 0.89, Estim Creat Clear Calc 46.57, Est GFR (MDRD) Af Amer 80, Est GFR (MDRD) Non-Af 66, BUN/Creatinine Ratio 38.2 H, Glucose 155 H, Calcium 7.5 L, Phosphorus 3.7, Magnesium 2.7 H Current Medications Acetaminophen (Tylenol Liquid) 650 mg GT Q6H PRN PRN PRN Reason: Pain 1-3/10 or Fever >100.7 Last Admin: 02/23/19 17:56 Dose: 650 mg Documented by: Apixaban (Eliquis) 5 mg GT BID [facility] Last Admin: 02/25/19 21:34 Dose: 5 mg Documented by: Aspirin (Aspirin, Baby) 81 mg GT DAILY@0800 [facility] Last Admin: 02/25/19 10:12 Dose: 81 mg Documented by: Atorvastatin Calcium (Lipitor) 80 mg GT QHS [facility] Last Admin: 02/25/19 21:35 Dose: 80 mg Documented by: Chlorhexidine Gluconate () 1 each TOPICAL DAILY [facility] Last Admin: 02/25/19 10:09 Dose: 1 each Documented by: Chlorhexidine Gluconate () 15 ml PO BID [facility] Last Admin: 02/25/19 21:34 Dose: 15 ml Documented by: Clopidogrel Bisulfate (Plavix) 75 mg GT DAILY [facility] Last Admin: 02/25/19 10:13 Dose: 75 mg Documented by: Famotidine (Pepcid) 20 mg GT DAILY [facility] Last Admin: 02/25/19 10:11 Dose: 20 mg Documented by: Fenofibrate (Tricor) 145 mg GT DAILY [facility] Last Admin: 02/25/19 10:11 Dose: 145 mg Documented by: Glucagon () 1 mg IM .X1 PRN PRN Reason: Hypoglycemia Sodium Chloride () 250 mls @ 15 mls/hr IV .[id number] PRN PRN Reason: Saline Flush Last Infusion: 02/23/19 22:15 Dose: 0 mls/hr Documented by: Sodium Chloride () 250 mls @ 15 mls/hr IV .[id number] PRN PRN Reason: Additional IVPB Infusion Dextrose (Dextrose 10%-Water) 250 mls @ 999 mls/hr IV .Q16M PRN; Protocol PRN Reason: HYPOGLYCEMIA Fentanyl () 100 mls @ 15 mls/hr IV UD [facility]; Protocol Last Titration: 02/26/19 07:00 Dose: 200 mcg/hr, 20 mls/hr Documented by: Enteral Nutritional Formula (Vital Af 1.2 [place]akan Liquid) 1,000 mls @ 55 mls/hr GT .[id number] [facility] Last Admin: 02/25/19 23:18 Dose: 55 mls/hr Documented by: Propofol (Diprivan) 1,000 mg in 100 mls @ 4.116 mls/hr CONT INF .Q12H [facility]; Protocol Last Admin: 02/26/19 07:12 Dose: 20 mcg/kg/min, 8.1 mls/hr Documented by: Levofloxacin (Levaquin Iv) 750 mg in 150 mls @ 100 mls/hr IV Q48 [facility] Insulin Human Lispro (Humalog Kwikpen (Bkc)) 0 unit SC Q6 [facility]; Protocol Last Admin: 02/26/19 05:48 Dose: 1 u Documented by: Ipratropium [place] (Atrovent) 0.5 mg INHALATION Q4H.RT [facility] Last Admin: 02/26/19 07:10 Dose: 0.5 mg Documented by: Levetiracetam (Keppra Oral Solution) 500 mg PO BID [facility] Last Admin: 02/25/19 21:35 Dose: 500 mg Documented by: Lorazepam (Ativan) 2 mg IV Q4H PRN PRN PRN Reason: SEIZURES Last Admin: 02/23/19 23:38 Dose: 2 mg Documented by: Methylprednisolone (Solu-Medrol) 40 mg IV Q12 [facility] Last Admin: 02/25/19 21:32 Dose: 40 mg Documented by: Nicotine (Nicoderm Cq (Pbkc)) 21 mg TRANSDERM. DAILY [facility] Last Admin: 02/25/19 10:12 Dose: 21 mg Documented by: Nitroglycerin (Nitrostat) 0.4 mg SUBLINGUAL Q5M PRN PRN Reason: CHEST Polyethylene Glycol (Miralax) 17 gm GT DAILY PRN PRN Reason: Constipation Last Admin: 02/22/19 15:59 Dose: 17 gm Documented by: Potassium Chloride (Potassium Chl Soln) 20 meq GT BIDCM [facility] Last Admin: 02/25/19 21:32 Dose: 20 meq Documented by: Quetiapine Fumarate (Seroquel) 50 mg NG Q12 [facility] Senna/Docusate Sodium (Senokot-S, [place]-Colace) 2 tablet GT BID [facility] Last Admin: 02/25/19 21:36 Dose: Not Given Documented by: Sodium Chloride () 10 - 40 ml IV UD PRN PRN Reason: SALINE FLUSH Last Admin: 02/25/19 10:09 Dose: 10 ml Documented by: STROKE Vital Signs/Narrative: Vital Signs Pulse Resp BP Pulse Ox 02/26/19 06:55 71 02/26/19 06:00 80 14 100/64 93 02/26/19 05:55 79 14 92 02/26/19 05:00 135 H 28 H 154/110 H 95 02/26/19 04:00 71 14 101/60 94 Medical Necessity - Tobacco Use Smoking Status: Former smoker Tobacco Use: Cigarettes Assessment/Plan All Active Problems (Last Reviewed 08/01/18 @ 15:50 by Jackson Peter DO) Lower respiratory infection (Acute) Acute respiratory failure with hypoxia and hypercapnia (Acute) Pneumonia (Acute) Sepsis (Acute) Pulmonary embolism (Acute) Cholelithiasis NOS (Acute) Acute respiratory failure with hypoxia and hypercapnia (Acute) COPD with acute exacerbation (Acute) Gram-negative pneumonia (Acute) Acute hypercapnic respiratory failure (Acute) NSTEMI (non-ST elevated myocardial infarction) (Acute) COPD exacerbation (Acute) 73 y/o female with past medical history of chronic severe interstitial fibrosis admitted with a complaint of worsening shortness of breath 1. Acute on chronic hypoxic respiratory failure secondary to acute COPD exacerbation/pseudomonas pneumonia Remains intubated, on mechanical ventilator, Fi02 50% Day 7 of intubation 2. Seizure likely medication-related/febrile-related/possible serotonin syndrome Off Precedex, seroquel, bupropion and paroxetine EEG ordered shows generalized slowness with triphasic waves, Started on Keppra via OG tube 3. Severe sepsis due to pseudomonas pneumonia, still febrile On Levaquin Initial blood cultures, influenza screen, respiratory panel, urine streptococcal and Legionella antigen negative Repeat blood cultures, urine cultures and sputum cultures are pending Continue on Levaquin 4. Acute systolic heart failure, EF 20% Lasix was on hold on account of hemodynamic instability Will give Lasix 20 mg IV x1 at 2 PM, reevaluate in a.m. 5. NSTEMI, medically being managed now History of CAD s/p stents Continue on aspirin, plavix, statin, Imdur Cardiac cath planned when stable and extubated 6. Acute COPD exacerbation, improving, Management as in #1 7. Hypertension, BP meds on hold Will continue to monitor 8. History of DVT, continue on eliquis 9. Nicotine dependence, on replacement. 10. DVT prophylaxis- on eliquis 11. Code status: full code Code Visit Inpatient E&M: 47929 Subs Hosp L3
[2019-02-26 08:34] LABS: Ammonia < 10.0 umol/L (11-32)
[2019-02-26] MEDS: Aspirin 81 MG TAB.CHEW GT (09:57)
[2019-02-26] MEDS: levETIRAcetam Oral Solution 500 MG/5 ML GT ×2 (09:57→21:04)
[2019-02-26] MEDS: Famotidine 20 MG Tablet GT (09:57)
[2019-02-26] MEDS: Chlorhexidine 15 ML PO ×2 (09:57→21:03)
[2019-02-26] MEDS: 0.9% Saline Lock 10 ML Syringe IV ×3 (09:57→21:09)
[2019-02-26] MEDS: QUEtiapine 25 MG Tablet 50 MG GT ×2 (09:58→21:04)
[2019-02-26] MEDS: levoFLOXacin IV 750 MG/150 ML BAG 100 MG IV (09:58)
[2019-02-26] MEDS: Fenofibrate 145 MG Tablet GT (10:00)
[2019-02-26] MEDS: APIXABAN 5 MG TABLET GT ×2 (10:01→21:04)
[2019-02-26] MEDS: Clopidogrel Bisulfate 75 MG Tablet GT (10:01)
--- NOTE | 2019-02-26 10:04 | CASEMGMT ---
SW participated in ICU rounds, pt's daughter in law present. Pt remains intubated at this time. SW will continue to follow discharge needs, as it is anticipated at this time pt may need placement for some rehab after this hospitalization. JOSELYN Ellis
[2019-02-26] MEDS: CHLORHEXIDINE GLUC 2% CLOTH 1 EACH TOWELETTE TOPICAL (10:15)
[2019-02-26] MEDS: Propofol 10MG/Ml 1,000 MG/100 ML Bottle 6.2 MG CONT INF (11:30)
[2019-02-26] MEDS: Furosemide 20 MG/2 ML VIAL IV (13:10)
[2019-02-26 13:21] LABS: Bedside Glucose 135 mg/dL (70-110)
--- NOTE | 2019-02-26 16:23 | PCM.CONS.GEN ---
Problem List (1) Tinea unguium Status: Chronic (2) Peripheral vascular disease Status: Suspected Reason for Consult Date of Consultation: 02/26/19 Reason for Consultation: Long thick toenails History of Present Illness: The patient is a 73 year old F was seen bedside this afternoon for long thick toenails that she is unable to trim on her own. It is noted that she is currently admitted to the intensive care unit for management of respiratory failure, pneumonia, and NSTEMI. She is nonresponsive during the evaluation. Past Medical History Past Medical History (Chronic Problems): Chronic Problems (Last Reviewed 08/01/18 @ 15:50 by Jackson Peter DO) COPD (chronic obstructive pulmonary disease) (Chronic) COPD with acute exacerbation (Chronic) Tinea unguium (Chronic) Presence of stent in coronary artery (Chronic) PTCA/SUSAN to ostium of LMT 10/01/2014 @[facility]; PTCA/SUSAN of the mid/distal RCA 11/11/17 CAD (coronary artery disease) (Chronic) Successful PTCA/SUSAN of the of mid/distal RCA with a 2.25 x 38 Promus Synergy, post dilated proximally with a 3.0 x 12 NC balloon at 8 safia (2.5mm); 75%-->0%, no dissection. Successful PTCA/SUSAN of the proximal RCA with a 2.5 x 20 Promus Synergy, post dilated with a 3.0 x 12 at 14 safia; 75%-->0%, no dissection. Tobacco abuse (Chronic) Congestive heart failure (Chronic) Nonrheumatic tricuspid (valve) insufficiency (Chronic) Nonrheumatic mitral valve insufficiency (Chronic) Nicotine dependence, cigarettes, uncomplicated (Chronic) Hypertension (Chronic) Hyperlipidemia (Chronic) Atherosclerosis of council coronary artery of council heart without angina pectoris (Chronic) PTCA/SUSAN to ostium of LMT 10/01/2014 @[facility]; PTCA/SUSAN to mid/distal RCA and proximal RCA in November 2017 at [facility]; SOB (shortness of breath) (Chronic) Medical History: Medical History (Last Reviewed 08/01/18 @ 15:50 by Jackson Peter DO) Presence of stent in coronary artery (Chronic) Z95.5 PTCA/SUSAN to ostium of LMT 10/01/2014 @[facility]; PTCA/SUSAN of the mid/distal RCA 11/11/17 Acute respiratory failure with hypoxia and hypercapnia (Acute) J96.01, J96.02 COPD with acute exacerbation (Acute) J44.1 Gram-negative pneumonia (Acute) J15.6 Acute hypercapnic respiratory failure (Acute) J96.02 NSTEMI (non-ST elevated myocardial infarction) (Acute) I21.4 COPD exacerbation (Acute) J44.1 CAD (coronary artery disease) (Chronic) I25.10 Successful PTCA/SUSAN of the of mid/distal RCA with a 2.25 x 38 Promus Synergy, post dilated proximally with a 3.0 x 12 NC balloon at 8 safia (2.5mm); 75%-->0%, no dissection. Successful PTCA/SUSAN of the proximal RCA with a 2.5 x 20 Promus Synergy, post dilated with a 3.0 x 12 at 14 safia; 75%-->0%, no dissection. Tobacco abuse (Chronic) Z72.0 Congestive heart failure (Chronic) I50.9 Nonrheumatic tricuspid (valve) insufficiency (Chronic) I36.1 Nonrheumatic mitral valve insufficiency (Chronic) I34.0 Nicotine dependence, cigarettes, uncomplicated (Chronic) F17.210 Hypertension (Chronic) I10 Hyperlipidemia (Chronic) E78.5 Atherosclerosis of [place] coronary artery of [place] heart without angina pectoris (Chronic) I25.10 PTCA/SUSAN to ostium of LMT 10/01/2014 @[facility]; PTCA/SUSAN to mid/distal RCA and proximal RCA in November 2017 at [facility]; Peripheral vascular disease (Chronic) I73.9 SOB (shortness of breath) (Chronic) R06.02 Anemia D64.9 COPD (chronic obstructive pulmonary disease) J44.9 Diabetes mellitus E11.9 Fibromyalgia M79.7 GERD (gastroesophageal reflux disease) K21.9 Hyperlipidemia E78.5 MARISABEL (obstructive sleep apnea) G47.33 Allergies codeine Allergy (Unknown, Verified 09/12/18 01:10) nausea, hives morphine Allergy (Unknown, Verified 09/12/18 01:10) Nausea naproxen [From Naprosyn] Allergy (Unknown, Verified 09/12/18 01:10) Hives Sulfa (Sulfonamide Antibiotics) Allergy (Unknown, Verified 09/12/18 01:10) Hives albuterol Allergy (Verified 09/11/18 22:12) Rash fentanyl Adverse Reaction (Severe, Verified 09/12/18 01:10) Rash OD on Fentany patch. Very sensitive to does 75mcg patch lithium Adverse Reaction (Unknown, Verified 09/12/18 01:10) anger phenobarbital Adverse Reaction (Unknown, Verified 09/12/18 01:10) anger Iodine and Iodide Containing Produc Adverse Reaction (Verified 09/12/18 01:10) Hives ipratropium [From DuoNeb] Adverse Reaction (Verified 02/19/19 10:28) Hives Penicillins [PCN] Adverse Reaction (Verified 09/12/18 01:10) Hives Home Medications: Ambulatory Orders Medication Instructions Recorded Gabapentin [Neurontin] 600 mg PO TIDCM 07/13/14 cycloBENZAPRine HCl [Flexeril] 10 mg PO DAILY 07/13/14 Fluticasone/Vilanterol [Breo 1 ea IH DAILY 12/17/16 Ellipta 200-25 Mcg INH] Paroxetine HCl [Paxil] 40 mg PO DAILY 12/17/16 nitroglycerin 0.4 mg sublingual 0.4 mg SUBLINGUAL Q5M PRN #25 tab 03/25/17 tablet ranolazine 500 mg tablet,extended 500 mg PO BID #180 tab 03/25/17 release,12 hr clopidogrel 75 mg tablet 75 mg PO DAILY #90 tab 10/23/17 Cholecalciferol (Vitamin D3) 50,000 unit PO QWEEK 11/23/17 [Vitamin D3] Pantoprazole Sodium [Protonix] 20 mg PO BID 11/23/17 buPROPion SR [Wellbutrin SR (150mg 150 mg PO DAILY 11/23/17 tablets)] tiotropium bromide 2.5 2 puff INHALATION QDAY #1 ea 12/10/17 mcg/actuation mist for inhalation albuterol sulfate 90 mcg/actuation 2 puff INHALATION Q6H PRN #18 g 01/29/18 aerosol inhaler Aspirin [Aspirin, Baby] 81 mg PO DAILY@0800 03/30/18 Potassium Chloride [K-Dur] 20 meq PO BIDCM #20 tablet 04/05/18 Amlodipine Besylate 5 mg PO DAILY 09/11/18 Apixaban [Eliquis] 5 mg PO BID 09/11/18 Atorvastatin Calcium 80 mg PO DAILY 09/11/18 DiphenhydrAMINE [Benadryl] 25 mg PO Q6H PRN PRN 09/11/18 Fenofibrate [Tricor] 145 mg PO DAILY 09/11/18 Guaifenesin [Mucinex] 1 tab PO BID 09/11/18 Ipratropium [Atrovent Inhaler] 2 puff INHALATION 4X/DAY 09/11/18 Levalbuterol HCl 1 puff INHALATION 4X/DAY PRN PRN 09/11/18 Metoprolol Tartrate 25 mg PO BID 09/11/18 Prednisone 40 mg PO DAILY #10 tab 09/13/18 losartan 50 mg tablet 50 mg PO DAILY #90 tab 11/12/18 Isosorbide Mononitrate [Isosorbide 90 mg PO DAILY 02/19/19 Mononitrate ER] Surgical History: Surgical History (Last Reviewed 08/01/18 @ 15:50 by Jackson Peter DO) H/O tubal ligation Z98.51 History of left heart catheterization Z98.890 Hx of appendectomy Z98.890, Z90.49 S/P femoral-femoral bypass surgery Z95.828 with gorortex graft in 2001; removal of infected graft with reconstructions of right superficial artery in 2002 Surgical History: appendectomy, - - cad with stent, this was carpal tunnel surgeries Psychiatric History: No pertinent psych hx 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 Lives: With Family Smoking Status: Former smoker Tobacco Use: Cigarettes Alcohol: Occasional Drugs: None - *Family History Maternal Family History: Family History (Last Reviewed 08/01/18 @ 15:50 by Jackson Peter DO) Mother CAD (coronary artery disease) Hypertension Sister CAD (coronary artery disease) Myocardial infarction History Items: Diabetes, Heart Disease, Stroke Paternal Family History: Family History (Last Reviewed 08/01/18 @ 15:50 by Jackson Peter DO) Mother CAD (coronary artery disease) Hypertension Sister CAD (coronary artery disease) Myocardial infarction History Items: Diabetes, Stroke Review of Systems Unable to obtain accurate/complete ROS d/t: Unable to participate in examination. A chart review was performed Patient Problems: Active and Suspected Problems (Last Reviewed 08/01/18 @ 15:50 by Jackson Peter DO) Acute respiratory failure with hypoxia and hypercapnia (Acute) Pneumonia (Acute) Sepsis (Acute) - Physical Exam Vitals/I&O's: Vital Signs Temp Pulse Resp BP Pulse Ox 98.7 F 67 15 90/56 L 96 02/26/19 16:00 02/26/19 16:00 02/26/19 16:00 02/26/19 16:00 02/26/19 16:00 Oxygen Flow Rate (L/min) 6 Oxygen Delivery Method Mechanical Ventilator Weight: 68.6 kg Body Mass Index (BMI) 26.4 Intake and Output for Last 24 Hours 02/24/19 02/25/19 02/26/19 23:59 23:59 23:59 Intake Total 1720.07 / 1873.98 2440.42 / 2848.52 1800.54 / 1800.54 Output Total 1350 / 1350 750 / 1050 750 / 750 Balance 370.07 / 523.98 1690.42 / 1798.52 1050.54 / 1050.54 General: Alert, Oriented x3, Cooperative Extremities: No cyanosis, Capillary Refill Less than 3 Seconds - All digits bilaterally, Diminished Peripheral Pulses - 2 out of 4 DP pulses bilateral and weak PT pulses Skin: - - Her skin is atrophic and hairless. There is no skin discontinuity, necrosis, ecchymosis, erythema or other infection or maceration bilateral. Her toenails are long, thick, and dystrophic with subungual debris x10. The hallux nails are notably more thick than the other lesser toes. Musculoskeletal: No Tenderness to Palpation of Joints or Extremities, Muscle Wasting, - - Dorsal contraction lesser toes bilateral Neurological: - - Unable to assess Psych/Mental Status: - - She is neither alert nor oriented and is unable to participate in her exam Microbiology Past 72 Hours 02/24/19 10:40 Blood Culture (Wb) - Line Draw Blood Culture - Preliminary No growth in 48 hours. 02/24/19 12:30 Blood Culture (Wb) - Arm Right Blood Culture - Preliminary No growth in 48 hours. 02/24/19 12:20 Urine Catheter - Burk Urine Culture - Final Culture exhibits no growth. 02/26/19 05:50 Sputum, Induced/[place]uk[place] Gram Stain - Final 02/19/19 07:00 Blood Culture (Wb) #2 - Anticubital Right Blood Culture - Final No growth in 5 days. 02/19/19 06:15 Blood Culture (Wb) - Anticubital Right Blood Culture - Final No growth in 5 days. Laboratory Results 02/25/19 18:52: POC Glucose 145 H 02/25/19 23:13: POC Glucose 132 H 02/25/19 23:50: MRSA (PCR) Negative 02/26/19 05:47: POC Glucose 167 H 02/26/19 06:15: WBC 10.4, RBC 3.22 L, Hgb 8.9 L, Hct 29.5 L, MCV 91.6, MCH 27.6, MCHC 30.2 L, RDW Std Deviation 52.3 H, RDW Coeff of Abhinav 17.2 H, Plt Count 240, MPV 11.3, Immature Gran % (Auto) 1.300 H, Neut % (Auto) 85.3 H, Lymph % (Auto) 8.1 L, [place] % (Auto) 5.2, Eos % (Auto) 0.1, Baso % (Auto) 0.0, Absolute Neuts (auto) 8.9 H, Absolute Lymphs (auto) 0.84, Nucleated RBC % 0.4 02/26/19 06:15: Sodium 138, Potassium 4.6, Chloride 99, Carbon Dioxide 34.0 H, Anion Gap 5, BUN 34 H, Creatinine 0.89, Estim Creat Clear Calc 46.57, Est GFR (MDRD) Af Amer 80, Est GFR (MDRD) Non-Af 66, BUN/Creatinine Ratio 38.2 H, Glucose 155 H, Calcium 7.5 L, Phosphorus 3.7, Magnesium 2.7 H 02/26/19 07:50: Ammonia < 10.0 L 02/26/19 11:15: POC Glucose 135 H Current Medications Acetaminophen (Tylenol Liquid) 650 mg GT Q6H PRN PRN PRN Reason: Pain 1-3/10 or Fever >100.7 Last Admin: 02/23/19 17:56 Dose: 650 mg Documented by: Apixaban (Eliquis) 5 mg GT BID [facility] Last Admin: 02/26/19 10:01 Dose: 5 mg Documented by: Aspirin (Aspirin, Baby) 81 mg GT DAILY@0800 [facility] Last Admin: 02/26/19 09:57 Dose: 81 mg Documented by: Atorvastatin Calcium (Lipitor) 80 mg GT QHS [facility] Last Admin: 02/25/19 21:35 Dose: 80 mg Documented by: Chlorhexidine Gluconate () 1 each TOPICAL DAILY [facility] Last Admin: 02/26/19 10:15 Dose: 1 each Documented by: Chlorhexidine Gluconate () 15 ml PO BID [facility] Last Admin: 02/26/19 09:57 Dose: 15 ml Documented by: Clopidogrel Bisulfate (Plavix) 75 mg GT DAILY [facility] Last Admin: 02/26/19 10:01 Dose: 75 mg Documented by: Famotidine (Pepcid) 20 mg GT DAILY [facility] Last Admin: 02/26/19 09:57 Dose: 20 mg Documented by: Fenofibrate (Tricor) 145 mg GT DAILY [facility] Last Admin: 02/26/19 10:00 Dose: 145 mg Documented by: Glucagon () 1 mg IM .X1 PRN PRN Reason: Hypoglycemia Sodium Chloride () 250 mls @ 15 mls/hr IV .[id number] PRN PRN Reason: Saline Flush Last Infusion: 02/23/19 22:15 Dose: 0 mls/hr Documented by: Sodium Chloride () 250 mls @ 15 mls/hr IV .[id number] PRN PRN Reason: Additional IVPB Infusion Dextrose (Dextrose 10%-Water) 250 mls @ 999 mls/hr IV .Q16M PRN; Protocol PRN Reason: HYPOGLYCEMIA Enteral Nutritional Formula (Vital Af 1.2 [place]akan Liquid) 1,000 mls @ 55 mls/hr GT .[id number] [facility] Last Admin: 02/25/19 23:18 Dose: 55 mls/hr Documented by: Propofol (Diprivan) 1,000 mg in 100 mls @ 4.116 mls/hr CONT INF .Q12H [facility]; Protocol Last Titration: 02/26/19 16:00 Dose: 20 mcg/kg/min, 8.2 mls/hr Documented by: Levofloxacin (Levaquin Iv) 750 mg in 150 mls @ 100 mls/hr IV Q48 [facility] Last Infusion: 02/26/19 11:30 Dose: Infused Documented by: Fentanyl () 100 mls @ 5 mls/hr IV UD [facility]; Protocol Last Titration: 02/26/19 16:00 Dose: 175 mcg/hr, 17.5 mls/hr Documented by: Insulin Human Lispro (Humalog Kwikpen (Bkc)) 0 unit SC Q6 [facility]; Protocol Last Admin: 02/26/19 11:16 Dose: Not Given Documented by: Ipratropium [place] (Atrovent) 0.5 mg INHALATION Q4H.RT [facility] Last Admin: 02/26/19 15:06 Dose: 0.5 mg Documented by: Levetiracetam (Keppra Oral Solution) 500 mg GT BID [facility] Last Admin: 02/26/19 09:57 Dose: 500 mg Documented by: Lorazepam (Ativan) 2 mg IV Q4H PRN PRN PRN Reason: SEIZURES Last Admin: 02/23/19 23:38 Dose: 2 mg Documented by: Methylprednisolone (Solu-Medrol) 40 mg IV Q12 [facility] Last Admin: 02/26/19 10:00 Dose: 40 mg Documented by: Nicotine (Nicoderm Cq (Pbkc)) 21 mg TRANSDERM. DAILY [facility] Last Admin: 02/26/19 09:58 Dose: 21 mg Documented by: Nitroglycerin (Nitrostat) 0.4 mg SUBLINGUAL Q5M PRN PRN Reason: CHEST Polyethylene Glycol (Miralax) 17 gm GT DAILY PRN PRN Reason: Constipation Last Admin: 02/22/19 15:59 Dose: 17 gm Documented by: Quetiapine Fumarate (Seroquel) 50 mg GT Q12 [facility] Last Admin: 02/26/19 09:58 Dose: 50 mg Documented by: Sodium Chloride () 10 - 40 ml IV UD PRN PRN Reason: SALINE FLUSH Last Admin: 02/26/19 13:10 Dose: 10 ml Documented by: Assessment/Plan All Active Problems (Last Reviewed 08/01/18 @ 15:50 by Jackson Peter DO) Lower respiratory infection (Acute) Acute respiratory failure with hypoxia and hypercapnia (Acute) Pneumonia (Acute) Sepsis (Acute) Pulmonary embolism (Acute) Cholelithiasis NOS (Acute) Acute respiratory failure with hypoxia and hypercapnia (Acute) COPD with acute exacerbation (Acute) Gram-negative pneumonia (Acute) Acute hypercapnic respiratory failure (Acute) NSTEMI (non-ST elevated myocardial infarction) (Acute) COPD exacerbation (Acute) Thickened toenails consistent with onychomycosis versus onychauxis Medical chart review demonstrates significant past medical history of peripheral vascular disease Acute medical history includes respiratory failure, pneumonia, NSTEMI Other comorbidities noted I reviewed her medical chart. Is consulted for help debriding her long thick toenails in which she is unable to safely perform on her own. This was performed with nail nippers this afternoon without incident bilateral 1, 2, 3, 4, and 5. I recommend continued good foot hygiene. It is noted that she does not have any open ulcers, infection, or signs of tissue loss. She is welcome to follow-up with the foot [facility] ankle center upon stabilization and discharge. Thank you for the consultation. Please not hesitate to call if you have any questions. Dory Black DPM, F[facility] [phone]
[2019-02-26 17:10] LABS: Bedside Glucose 126 mg/dL (70-110)
[2019-02-26] MEDS: Propofol 10MG/Ml 1,000 MG/100 ML Bottle 8.2 MG CONT INF (20:39)
[2019-02-26] MEDS: Atorvastatin Calcium 80 MG Tablet GT (21:04)
[2019-02-27] VITALS (43 sets, daily range): BP systolic 81–153; BP diastolic 46–80; PULSE 57–115; RESP 14–28; TEMP 36.8–37.8; O2SAT 15–100
[2019-02-27 00:21] LABS: Bedside Glucose 124 mg/dL (70-110)
[2019-02-27] MEDS: Vital AF 1.2 Cal Liquid 1,000 ML 55 ML GT (02:10)
[2019-02-27] MEDS: CHLORHEXIDINE GLUC 2% CLOTH 1 EACH TOWELETTE TOPICAL (02:28)
[2019-02-27] MEDS: Propofol 10MG/Ml 1,000 MG/100 ML Bottle 12.3 MG CONT INF ×2 (02:30→09:49)
[2019-02-27 03:35] LABS: Absolute Lymphocyte Count 0.74 X10^3/uL (0.83-4.51); Absolute Neutrophil Count 8.5 X10^3/uL (2.0-7.7); Basophil# 0.01 X10^3/uL; Basophil% 0.1 % (0-1); Eosinophil# 0.01 X10^3/uL; Eosinophils% 0.1 % (0-5); Hematocrit 28.7 % (37-47); Hemoglobin 8.7 g/dL (12.0-15.0); Lymphocyte # 0.74 X10^3/ul (4.0); Lymphocyte % 7.5 % (19-41); Mean Corp Hgb Conc 30.3 g/dL (32-36); Mean Corpuscular Hgb 27.8 pg (27.0-32.0); Mean Corpuscular Volume 91.7 fL (81-99); Mean Platelet Vol. 11.2 fl (6.2-12.0); Monocyte# 0.46 X10^3/uL; Monocyte% 4.7 % (0-10); NRBC Flagged by Analyzer 0.5 % (0-5); Neutrophil # 8.51 X10^3/uL (2.7-7.7); Platelet Count 244 K/mm3 (150-450); RBC Distribution Width CV 16.9 % (11.6-14.6); RBC Distribution Width SD 51.7 fl (35.1-43.9); Red Blood Count 3.13 M/mm3 (4.2-5.4); White Blood Count 9.9 K/mm3 (4.4-11.0)
[2019-02-27 04:26] LABS: ALB/GLOB Ratio 0.9 RATIO (0.9-2.4); AST(SGOT) 36 U/L (15-37); Alanine Aminotransfer ALT/SGPT 24 U/L (13-56); Albumin, Serum 2.7 g/dL (3.2-5.0); Alkaline Phosphatase 60 U/L (45-117); Anion Gap 4 (5-15); BUN 34 mg/dL (7-18); BUN/Creat Ratio 37.6 RATIO (10-20); Calcium,Total 7.9 mg/dL (8.5-10.1); Chloride 98 mmol/L (98-107); EST Glomerular Filtration Rate 65 mL/min (>60); Est Glom Filt Rate - Afr Amer 78 mL/min (>60); Estimated Creatinine Clearance 46.05 ml/min; Glucose 141 mg/dL (74-106); Phosphorus 3.5 mg/dL (2.5-4.9); Potassium 4.5 mmol/L (3.5-5.1); Protein, Total 5.7 g/dL (6.4-8.2); Sodium Level 140 mmol/L (136-145)
[2019-02-27 05:10] LABS: Bedside Glucose 145 mg/dL (70-110)
[2019-02-27] MEDS: Ipratropium 0.5 MG/2.5 ML SOLUTION INHALATION ×5 (06:43→22:35)
[2019-02-27] MEDS: Furosemide 20 MG/2 ML VIAL IV (07:21)
--- NOTE | 2019-02-27 07:31 | PCM.PN.INT ---
Subjective: Patient continues to have difficulty with sedation, but was able to have a spontaneous awakening and breathing trial this morning. Patient reportedly lasted 15 minutes before developing tachypnea and hypoxemia. Patient has continued to tolerate tube feeds and has had no change in secretions per respiratory. No fever was noted overnight. Patient has not been reinitiated on pressor therapy. General: No apparent distress, - - Good ventilator synchrony. Intubated and sedated. RASS -2. HEENT: Atraumatic, PERRLA, EOMI, Normocephalic, - - No scleral icterus or injection noted Oral: Moist Mucosa, No Gingival or Mucosal Lesions/ Ulcerations Neck: Supple, No Nodes, Trachea Midline, JVD, Right Lungs: No rhonchi, No wheeze, Diminished, Rales, - - Symmetric expansion. No dullness to percussion. Cardiovascular: Regular rate, Regular Rhythm, Normal S1, Normal S2, No murmurs, No rub noted, No Gallop Abdomen: Bowel Sounds Present, Soft, Non Tender, Distended - Slightly Extremities: No cyanosis, No edema, Capillary Refill Less than 3 Seconds, Clubbing Skin: - - Grossly unchanged compared to previous Musculoskeletal: No Tenderness to Palpation of Joints or Extremities Lymphatic: No Cervical, Supraclavicular, or Inguinal Adenopathy Neurological: Cranial nerves II-XII grossly intact, Neuro grossly intact, Motor Exam 5/5 strength throughout Psych/Mental Status: Flat Affect, Impulsive Vital Signs Temp Pulse Resp BP Pulse Ox 37.4 C H 58 L 14 81/51 L 15 02/27/19 06:00 02/27/19 06:43 02/27/19 06:43 02/27/19 06:00 02/27/19 06:00 Oxygen Flow Rate (L/min) 6 Oxygen Delivery Method Mechanical Ventilator Weight: 68.6 kg Body Mass Index (BMI) 26.4 Intake and Output for Last 24 Hours 02/25/19 02/26/19 02/27/19 23:59 23:59 23:59 Intake Total 2440.42 / 2848.52 3002.84 / 3010.92 631.51 / 631.51 Output Total 750 / 1050 2450 / 2450 250 / 250 Balance 1690.42 / 1798.52 552.84 / 560.92 381.51 / 381.51 Labs (Last 48 Hours) 02/25/19 02/25/19 02/25/19 04:20 11:38 18:52 WBC RBC Hgb Hct MCV MCH MCHC RDW Std Deviation RDW Coeff of Abhinav Plt Count MPV Immature Gran % (Auto) Neut % (Auto) Lymph % (Auto) [place] % (Auto) Eos % (Auto) Baso % (Auto) Absolute Neuts (auto) Absolute Lymphs (auto) Nucleated RBC % Sodium Potassium Chloride Carbon Dioxide Anion Gap BUN Creatinine Estim Creat Clear Calc Est GFR (MDRD) Af Amer Est GFR (MDRD) Non-Af BUN/Creatinine Ratio Glucose Calcium Phosphorus Magnesium Total Bilirubin AST ALT Alkaline Phosphatase Ammonia B-Natriuretic Peptide 930.9 H Total Protein Albumin Globulin Albumin/Globulin Ratio MRSA (PCR) POC Glucose 120 H 145 H 02/25/19 02/25/19 02/26/19 23:13 23:50 05:47 WBC RBC Hgb Hct MCV MCH MCHC RDW Std Deviation RDW Coeff of Abhinav Plt Count MPV Immature Gran % (Auto) Neut % (Auto) Lymph % (Auto) [place] % (Auto) Eos % (Auto) Baso % (Auto) Absolute Neuts (auto) Absolute Lymphs (auto) Nucleated RBC % Sodium Potassium Chloride Carbon Dioxide Anion Gap BUN Creatinine Estim Creat Clear Calc Est GFR (MDRD) Af Amer Est GFR (MDRD) Non-Af BUN/Creatinine Ratio Glucose Calcium Phosphorus Magnesium Total Bilirubin AST ALT Alkaline Phosphatase Ammonia B-Natriuretic Peptide Total Protein Albumin Globulin Albumin/Globulin Ratio MRSA (PCR) Negative POC Glucose 132 H 167 H 02/26/19 02/26/19 02/26/19 06:15 06:15 07:50 WBC 10.4 RBC 3.22 L Hgb 8.9 L Hct 29.5 L MCV 91.6 MCH 27.6 MCHC 30.2 L RDW Std Deviation 52.3 H RDW Coeff of Abhinav 17.2 H Plt Count 240 MPV 11.3 Immature Gran % (Auto) 1.300 H Neut % (Auto) 85.3 H Lymph % (Auto) 8.1 L [place] % (Auto) 5.2 Eos % (Auto) 0.1 Baso % (Auto) 0.0 Absolute Neuts (auto) 8.9 H Absolute Lymphs (auto) 0.84 Nucleated RBC % 0.4 Sodium 138 Potassium 4.6 Chloride 99 Carbon Dioxide 34.0 H Anion Gap 5 BUN 34 H Creatinine 0.89 Estim Creat Clear Calc 46.57 Est GFR (MDRD) Af Amer 80 Est GFR (MDRD) Non-Af 66 BUN/Creatinine Ratio 38.2 H Glucose 155 H Calcium 7.5 L Phosphorus 3.7 Magnesium 2.7 H Total Bilirubin AST ALT Alkaline Phosphatase Ammonia < 10.0 L B-Natriuretic Peptide Total Protein Albumin Globulin Albumin/Globulin Ratio MRSA (PCR) POC Glucose 02/26/19 02/26/19 02/26/19 11:15 17:03 23:25 WBC RBC Hgb Hct MCV MCH MCHC RDW Std Deviation RDW Coeff of Abhinav Plt Count MPV Immature Gran % (Auto) Neut % (Auto) Lymph % (Auto) [place] % (Auto) Eos % (Auto) Baso % (Auto) Absolute Neuts (auto) Absolute Lymphs (auto) Nucleated RBC % Sodium Potassium Chloride Carbon Dioxide Anion Gap BUN Creatinine Estim Creat Clear Calc Est GFR (MDRD) Af Amer Est GFR (MDRD) Non-Af BUN/Creatinine Ratio Glucose Calcium Phosphorus Magnesium Total Bilirubin AST ALT Alkaline Phosphatase Ammonia B-Natriuretic Peptide Total Protein Albumin Globulin Albumin/Globulin Ratio MRSA (PCR) POC Glucose 135 H 126 H 124 H 02/27/19 02/27/19 02/27/19 03:07 03:07 05:06 WBC 9.9 RBC 3.13 L Hgb 8.7 L Hct 28.7 L MCV 91.7 MCH 27.8 MCHC 30.3 L RDW Std Deviation 51.7 H RDW Coeff of Abhinav 16.9 H Plt Count 244 MPV 11.2 Immature Gran % (Auto) 1.600 H Neut % (Auto) 86.0 H Lymph % (Auto) 7.5 L [place] % (Auto) 4.7 Eos % (Auto) 0.1 Baso % (Auto) 0.1 Absolute Neuts (auto) 8.5 H Absolute Lymphs (auto) 0.74 L Nucleated RBC % 0.5 Sodium 140 Potassium 4.5 Chloride 98 Carbon Dioxide 38.0 H Anion Gap 4 L BUN 34 H Creatinine 0.90 Estim Creat Clear Calc 46.05 Est GFR (MDRD) Af Amer 78 Est GFR (MDRD) Non-Af 65 BUN/Creatinine Ratio 37.6 H Glucose 141 H Calcium 7.9 L Phosphorus 3.5 Magnesium Total Bilirubin 0.30 AST 36 ALT 24 Alkaline Phosphatase 60 Ammonia B-Natriuretic Peptide Total Protein 5.7 L Albumin 2.7 L Globulin 3.0 Albumin/Globulin Ratio 0.9 MRSA (PCR) POC Glucose 145 H Microbiology 02/24/19 10:40 Blood Culture (Wb) - Line Draw Blood Culture - Preliminary No growth in 48 hours. 02/24/19 12:30 Blood Culture (Wb) - Arm Right Blood Culture - Preliminary No growth in 48 hours. 02/24/19 12:20 Urine Catheter - Burk Urine Culture - Final Culture exhibits no growth. 02/26/19 05:50 Sputum, Induced/Lukens Gram Stain - Final Medical Necessity - Tobacco Use Smoking Status: Former smoker Tobacco Use: Cigarettes Assessment/Plan All Active Problems (Last Reviewed 08/01/18 @ 15:50 by Jackson Peter DO) Lower respiratory infection (Acute) Acute respiratory failure with hypoxia and hypercapnia (Acute) Pneumonia (Acute) Sepsis (Acute) Pulmonary embolism (Acute) Cholelithiasis NOS (Acute) Acute respiratory failure with hypoxia and hypercapnia (Acute) COPD with acute exacerbation (Acute) Gram-negative pneumonia (Acute) Acute hypercapnic respiratory failure (Acute) NSTEMI (non-ST elevated myocardial infarction) (Acute) COPD exacerbation (Acute) RECOMMENDATIONS: 1. Continue IV Levaquin to complete a 10-day course. 2. Continue propofol and fentanyl for sedation. Increase Seroquel 3. Continue tube feeds as ordered. 4. Wean oxygen as tolerated to maintain saturations above 90% 5. Electrolyte repletion as indicated 6. Continue bronchodilators and IV steroids. Continue to wean steroids clinically. 7. Continue Eliquis and Pepcid. IMPRESSIONS: 1. Acute on chronic combined respiratory failure likely secondary to COPD with exacerbation Patient with probable pseudomonal pneumonia of the left lower lobe. Patient has remained on positive pressure ventilatory support, but it is unclear if this is secondary to continued difficulty with respirations versus agitation associated with spontaneous awakening trials. Will increase Seroquel and continue. Repeat cultures remain negative indicating probable drug-induced fever from Precedex therapy. We will continue with IV Solu-Medrol for now, but may transition to prednisone tomorrow if patient continues to improve. Attempting to diurese patient given improvement in blood pressure. Low oncotic pressure secondary to decreased albumin may complicate this approach. 2. Septic shock secondary to pseudomonal pneumonia Continue current supportive measures with bronchodilators, IV steroids and antimicrobials. Patient has been weaned off of Levophed therapy. This will be discontinued off the MAY. 3. History of venous thromboembolic disease The patient does have a history of pulmonary emboli, for which she will be continued on Eliquis per outpatient regimen. 4. Troponin elevation/NSTEMI/Acute on Chronic Systolic Heart Failure/Pulmonary Hypertension Although initially felt to be secondary to demand ischemia, a review of the patient's repeat echocardiogram revealed worsening in her LV ejection fraction. Therefore, cardiology was consulted and is currently following to assist with medical management. The patient may require heart catheterization, pending improvement in clinical stability. Will defer management and further work-up to cardiology. 5. Chronic systolic heart failure/pulmonary hypertension Cardiology is currently following to assist with medical management. We will continue to dose diuretic therapy on a as needed basis as blood pressure allows. 6. New onset seizure activity The patient apparently had a witnessed tonic-clonic seizure on 02/23. However, it resolved without intervention. No further seizure activity has been witnessed. EEG was completed, with read suggesting generalized slowing and possible hepatic encephalopathy. Neurology tele-consult was completed yesterday. 7. Tobacco dependency, currently in remission/hypertension/hyperlipidemia/peripheral vascular disease Complicates care, management, recovery and prognosis. Physical therapy to work with the patient. TIME: 37 minutes of critical care time, independent of procedures, was spent addressing the patient's acute on chronic combined respiratory failure, COPD with exacerbation, severe sepsis secondary to community-acquired pneumonia, history of venous thromboembolic disease, history of systolic heart failure, pulmonary hypertension, NSTEMI, review of all data and collaboration with care team. (5:50 AM to 6:50 AM) Code Visit 9xxxx: [id number] Critical care first hour
--- NOTE | 2019-02-27 07:43 | PCM.PN.HOSP ---
Patient Problems: Active and Suspected Problems (Last Reviewed 08/01/18 @ 15:50 by Jackson Peter DO) Acute respiratory failure with hypoxia and hypercapnia (Acute) Pneumonia (Acute) Sepsis (Acute) Reason for Visit: Follow-up on respiratory failure Subjective: Patient was seen and examined. Remains intubated. Intermittently agitated. Failed spontaneous breathing trial today. Objective: Physical exam: General: intubated, not following commands, moves around in bed, pale, not jaundiced HEENT: Atraumatic, PERRLA, EOMI, Normocephalic Oral: Dry Mucosa Neck: Supple, No JVD, Negative Carotid Bruits Lungs: - -breath sounds decreased bibasally, no wheezes or crackles. Intubated. Cardiovascular: Regular rate, Regular Rhythm, Normal S1, Normal S2, No murmurs Abdomen: Bowel Sounds Present, Soft, Non Tender Extremities: No clubbing, No cyanosis, No edema, Capillary Refill Less than 3 Seconds Skin: No rashes, No breakdown Musculoskeletal: No Tenderness to Palpation of Joints or Extremities Lymphatic: No Cervical, Supraclavicular, or Inguinal Adenopathy Neurological: Cranial nerves II-XII grossly intact, Neuro grossly intact, Motor Exam 5/5 strength throughout Psych/Mental Status: intubated, on sedation, not following commands Vitals/I&O's: Vital Signs Temp Pulse Resp BP Pulse Ox 99.4 F H 63 14 81/51 L 15 02/27/19 06:00 02/27/19 07:40 02/27/19 06:43 02/27/19 06:00 02/27/19 06:00 Oxygen Flow Rate (L/min) 6 Oxygen Delivery Method Mechanical Ventilator Weight: 68.6 kg Body Mass Index (BMI) 26.4 Intake and Output for Last 24 Hours 02/25/19 02/26/19 02/27/19 23:59 23:59 23:59 Intake Total 2440.42 / 2848.52 3002.84 / 3010.92 638.47 / 638.47 Output Total 750 / 1050 2450 / 2450 250 / 250 Balance 1690.42 / 1798.52 552.84 / 560.92 388.47 / 388.47 Microbiology Past 72 Hours 02/24/19 10:40 Blood Culture (Wb) - Line Draw Blood Culture - Preliminary No growth in 48 hours. 02/24/19 12:30 Blood Culture (Wb) - Arm Right Blood Culture - Preliminary No growth in 48 hours. 02/24/19 12:20 Urine Catheter - Burk Urine Culture - Final Culture exhibits no growth. 02/26/19 05:50 Sputum, Induced/Lukens Gram Stain - Final 02/19/19 07:00 Blood Culture (Wb) #2 - Anticubital Right Blood Culture - Final No growth in 5 days. 02/19/19 06:15 Blood Culture (Wb) - Anticubital Right Blood Culture - Final No growth in 5 days. Laboratory Results 02/26/19 07:50: Ammonia < 10.0 L 02/26/19 11:15: POC Glucose 135 H 02/26/19 17:03: POC Glucose 126 H 02/26/19 23:25: POC Glucose 124 H 02/27/19 03:07: WBC 9.9, RBC 3.13 L, Hgb 8.7 L, Hct 28.7 L, MCV 91.7, MCH 27.8, MCHC 30.3 L, RDW Std Deviation 51.7 H, RDW Coeff of Abhinav 16.9 H, Plt Count 244, MPV 11.2, Immature Gran % (Auto) 1.600 H, Neut % (Auto) 86.0 H, Lymph % (Auto) 7.5 L, [place] % (Auto) 4.7, Eos % (Auto) 0.1, Baso % (Auto) 0.1, Absolute Neuts (auto) 8.5 H, Absolute Lymphs (auto) 0.74 L, Nucleated RBC % 0.5 02/27/19 03:07: Sodium 140, Potassium 4.5, Chloride 98, Carbon Dioxide 38.0 H, Anion Gap 4 L, BUN 34 H, Creatinine 0.90, Estim Creat Clear Calc 46.05, Est GFR (MDRD) Af Amer 78, Est GFR (MDRD) Non-Af 65, BUN/Creatinine Ratio 37.6 H, Glucose 141 H, Calcium 7.9 L, Phosphorus 3.5, Total Bilirubin 0.30, AST 36, ALT 24, Alkaline Phosphatase 60, Total Protein 5.7 L, Albumin 2.7 L, Globulin 3.0, Albumin/Globulin Ratio 0.9 02/27/19 05:06: POC Glucose 145 H Current Medications Acetaminophen (Tylenol Liquid) 650 mg GT Q6H PRN PRN PRN Reason: Pain 1-3/10 or Fever >100.7 Last Admin: 02/23/19 17:56 Dose: 650 mg Documented by: Apixaban (Eliquis) 5 mg GT BID FORMERLY [facility], [facility]1983 Last Admin: 02/26/19 21:04 Dose: 5 mg Documented by: Aspirin (Aspirin, Baby) 81 mg GT DAILY@0800 FORMERLY [facility], [facility]1983 Last Admin: 02/26/19 09:57 Dose: 81 mg Documented by: Atorvastatin Calcium (Lipitor) 80 mg GT QHS FOR[facility]LY [facility], [facility]–1983 Last Admin: 02/26/19 21:04 Dose: 80 mg Documented by: Chlorhexidine Gluconate () 1 each TOPICAL DAILY FOR[facility]LY [facility], [facility]1983 Last Admin: 02/27/19 02:28 Dose: 1 each Documented by: Chlorhexidine Gluconate () 15 ml PO BID FOR[facility]LY [facility], [facility]1983 Last Admin: 02/26/19 21:03 Dose: 15 ml Documented by: Clopidogrel Bisulfate (Plavix) 75 mg GT DAILY [facility], [facility]1983 Last Admin: 02/26/19 10:01 Dose: 75 mg Documented by: Famotidine (Pepcid) 20 mg GT DAILY [facility], [facility]1983 Last Admin: 02/26/19 09:57 Dose: 20 mg Documented by: Fenofibrate (Tricor) 145 mg GT DAILY FOR[facility], [facility]1983 Last Admin: 02/26/19 10:00 Dose: 145 mg Documented by: Glucagon () 1 mg IM .X1 PRN PRN Reason: Hypoglycemia Sodium Chloride () 250 mls @ 15 mls/hr IV .[id number] PRN PRN Reason: Saline Flush Last Infusion: 02/23/19 22:15 Dose: 0 mls/hr Documented by: Sodium Chloride () 250 mls @ 15 mls/hr IV .[id number] PRN PRN Reason: Additional IVPB Infusion Dextrose (Dextrose 10%-Water) 250 mls @ 999 mls/hr IV .Q16M PRN; Protocol PRN Reason: HYPOGLYCEMIA Enteral Nutritional Formula (Vital Af 1.2 [place] Liquid) 1,000 mls @ 55 mls/hr GT .[id number] [facility], [facility]1983 Last Admin: 02/27/19 02:10 Dose: 55 mls/hr Documented by: Propofol (Diprivan) 1,000 mg in 100 mls @ 4.116 mls/hr CONT INF .Q12H NAIF; Protocol Last Titration: 02/27/19 07:30 Dose: 25 mcg/kg/min, 10.3 mls/hr Documented by: Levofloxacin (Levaquin Iv) 750 mg in 150 mls @ 100 mls/hr IV Q48 NAIF Last Infusion: 02/26/19 11:30 Dose: Infused Documented by: Fentanyl () 100 mls @ 5 mls/hr IV UD NAIF; Protocol Last Titration: 02/27/19 07:30 Dose: 175 mcg/hr, 17.5 mls/hr Documented by: Insulin Human Lispro (Humalog Kwikpen (Bkc)) 0 unit SC Q6 NAIF; Protocol Last Admin: 02/27/19 05:09 Dose: Not Given Documented by: Ipratropium [place] (Atrovent) 0.5 mg INHALATION Q4H.RT NAIF Last Admin: 02/27/19 06:43 Dose: 0.5 mg Documented by: Levetiracetam (Keppra Oral Solution) 500 mg GT BID NAIF Last Admin: 02/26/19 21:04 Dose: 500 mg Documented by: Lorazepam (Ativan) 2 mg IV Q4H PRN PRN PRN Reason: SEIZURES Last Admin: 02/23/19 23:38 Dose: 2 mg Documented by: Methylprednisolone (Solu-Medrol) 40 mg IV Q12 NAIF Last Admin: 02/26/19 21:03 Dose: 40 mg Documented by: Nicotine (Nicoderm Cq (Pbkc)) 21 mg TRANSDERM. DAILY NAIF Last Admin: 02/26/19 09:58 Dose: 21 mg Documented by: Nitroglycerin (Nitrostat) 0.4 mg SUBLINGUAL Q5M PRN PRN Reason: CHEST Polyethylene Glycol (Miralax) 17 gm GT DAILY PRN PRN Reason: Constipation Last Admin: 02/22/19 15:59 Dose: 17 gm Documented by: Quetiapine Fumarate (Seroquel) 50 mg GT Q12 NAIF Last Admin: 02/26/19 21:04 Dose: 50 mg Documented by: Quetiapine Fumarate (Seroquel) 100 mg GT BID NAIF Sodium Chloride () 10 - 40 ml IV UD PRN PRN Reason: SALINE FLUSH Last Admin: 02/26/19 21:09 Dose: 20 ml Documented by: STROKE Vital Signs/Narrative: Vital Signs Temp Pulse Resp BP Pulse Ox 02/27/19 07:40 63 02/27/19 06:43 58 L 14 02/27/19 06:00 99.4 F H 57 L 14 81/51 L 15 02/27/19 05:00 99.1 F 66 14 90/57 L 97 02/27/19 04:40 108 H 24 H 92 02/27/19 04:15 27 H 02/27/19 04:00 99.2 F H 64 14 91/55 L 94 Medical Necessity - Tobacco Use Smoking Status: Former smoker Tobacco Use: Cigarettes Assessment/Plan All Active Problems (Last Reviewed 08/01/18 @ 15:50 by Jackson Peter DO) Lower respiratory infection (Acute) Acute respiratory failure with hypoxia and hypercapnia (Acute) Pneumonia (Acute) Sepsis (Acute) Pulmonary embolism (Acute) Cholelithiasis NOS (Acute) Acute respiratory failure with hypoxia and hypercapnia (Acute) COPD with acute exacerbation (Acute) Gram-negative pneumonia (Acute) Acute hypercapnic respiratory failure (Acute) NSTEMI (non-ST elevated myocardial infarction) (Acute) COPD exacerbation (Acute) 73 y/o female with past medical history of chronic severe interstitial fibrosis admitted with a complaint of worsening shortness of breath 1. Acute on chronic hypoxic respiratory failure secondary to acute COPD exacerbation/pseudomonas pneumonia Remains intubated, on mechanical ventilator, Fi02 50% Day 8 of intubation 2. Seizure likely medication-related/febrile-related/possible serotonin syndrome Off Precedex, seroquel, bupropion and paroxetine EEG ordered shows generalized slowness with triphasic waves, On Keppra via OG tube 3. Severe sepsis secondary to pseudomonas pneumonia, still febrile On Levaquin. Initial blood cultures, influenza screen, respiratory panel, urine streptococcal and Legionella antigen negative Repeat blood cultures, urine cultures and sputum cultures are negative Continue on Levaquin 4. Acute systolic heart failure, EF 20% Lasix was on hold on account of hemodynamic instability 5. NSTEMI, medically being managed now History of CAD s/p stents Continue on aspirin, plavix, statin, Imdur Cardiac cath planned when stable and extubated 6. Acute COPD exacerbation, improving, Management as in #1 7. Hypertension, BP meds on hold Will continue to monitor 8. History of DVT, continue on eliquis 9. Nicotine dependence, on replacement. 10. DVT prophylaxis- on eliquis 11. Code status: full code Code Visit Inpatient E&M: 73388 Subs Hosp L2
--- NOTE | 2019-02-27 08:37 | PN.CARD_ITS ---
Subjectve: Patient seen and evaluated. Still intubated but responds to stimuli Objective: Vital Signs Temp Pulse Resp BP Pulse Ox 98.8 F 62 14 110/52 L 96 02/27/19 08:00 02/27/19 08:00 02/27/19 08:00 02/27/19 08:00 02/27/19 08:00 Oxygen Flow Rate (L/min) 6 Oxygen Delivery Method Mechanical Ventilator Weight: 151 lb 3.794 oz Body Mass Index (BMI) 26.4 Intake and Output for Last 24 Hours 02/25/19 02/26/19 02/27/19 23:59 23:59 23:59 Intake Total 2440.42 / 2848.52 3002.84 / 3010.92 652.24 / 652.24 Output Total 750 / 1050 2450 / 2450 250 / 250 Balance 1690.42 / 1798.52 552.84 / 560.92 402.24 / 402.24 General: Awake, Alert, Oriented x 3 HEENT: PERRL, EOMI, Sclera Non Icteric Neck: Supple, Good ROM, No Lymph Node Enlargement Lungs: Clear to auscultation Cardiovascular: Regular Rhythm, Normal S1, Normal S2, No Murmurs, No Rubs, No Gallops Vascular: No Carotid Bruits, Normal Femoral Pulses, Normal Radial Pulses, Normal Dorsalis Pedal Pulse, Normal Posterior Tibial Pulses Abdomen: Bowel Sounds Present, Soft, Non Tender, No HSM, No Organomegaly Extremities: No Cyanosis, No Clubbing, No edema Musculoskeletal: No Erythema Skin: No Rashes Lymphatic: No Lymph Node Enlargement Neurological: No Focal Motor or Sensory Deficit 02/27/19 03:07: WBC 9.9, RBC 3.13 L, Hgb 8.7 L, Hct 28.7 L, MCV 91.7, MCH 27.8, MCHC 30.3 L, Plt Count 244, MPV 11.2, Immature Gran % (Auto) 1.600 H, Neut % (Auto) 86.0 H, Lymph % (Auto) 7.5 L, [place] % (Auto) 4.7, Eos % (Auto) 0.1, Baso % (Auto) 0.1, Absolute Neuts (auto) 8.5 H, Nucleated RBC % 0.5 02/27/19 03:07: Sodium 140, Potassium 4.5, Chloride 98, Carbon Dioxide 38.0 H, Anion Gap 4 L, BUN 34 H, Creatinine 0.90, Est GFR (MDRD) Af Amer 78, Est GFR (MDRD) Non-Af 65, BUN/Creatinine Ratio 37.6 H, Glucose 141 H, Calcium 7.9 L, Phosphorus 3.5, Total Bilirubin 0.30 Rhythm: EKG: ECHO: Stress Test: Cardiac Cath: PCI: CT Surgery: Holter monitor: EPS: PPM: CXR: Chest CT Scan: Medical Necessity - Tobacco Use Smoking Status: Former smoker Tobacco Use: Cigarettes Assessment/Plan 1. Non-ST elevation myocardial infarction * Patient appears to present with a non-ST elevation myocardial infarction. This is in the throes of a respiratory infection with bilateral pneumonia and sepsis * My recommendation would be to continue to treat the underlying cause. Because of her significant left ventricular systolic dysfunction she will eventually need a left heart catheterization to assess her coronary anatomy especially as she has undergone remote left main stenting as well as right coronary artery stenting. * We will wait for her to be extubated to have this performed. I do not think that this is hampering her extubation. * 2. Congestive heart failure-acute systolic * Patient appears to have systolic heart failure * I suspect the above is on the basis of ischemia. A Takutsobo reaction cannot be completely excluded but this would need to be confirmed via cardiac catheterization * Her ejection fraction remains low and will repeated for limited echocardiogram to see whether there is been any improvement of further deterioration. 3. Left ventricular systolic dysfunction * Patient appears to have significant right ventricular systolic dysfunction which is new. * After patient is extubated would continue to titrate her on beta-jenna and PENG inhibitor as appropriate * * Thank you for allowing me to participate in her care. *
--- NOTE | 2019-02-27 08:39 | ECHOL_ITS ---
Reason For Study: DYSPNEA/SOB Procedure This was a limited 2D transthoracic echocardiogram. The study was technically difficult. PT on VENT, agitated and moving, RN increased sedation. Exam performed portable in ICU/CCU. Left Ventricle Normal LV size. Left ventricular systolic function is normal. The estimated ejection fraction is 53 %. No regional wall motion abnormalities noted. Right Ventricle Normal RV size. Normal systolic function. Mitral Valve There is mild to moderate mitral annular calcification. Pericardium/Pleural No pericardial effusion. MMode/2D Measurements & Calculations LVIDd: 4.0 cm IVSd: 0.98 cm Ao root diam: 2.7 cm LVIDs: 2.9 cm LVPWd: 1.0 cm LA dimension: 3.5 cm FS: 27.6 % LAV(MOD-bp): 49.1 ml LA A4 area: 17.0 cm2 RA A4 area: 16.8 cm2 LAV(MOD-bp) Indexed: 28.6 ml/m2 LAV(MOD-sp2): 52.1 ml LAV(MOD-sp4): 40.5 ml Interpretation Summary Normal LV size. Left ventricular systolic function is normal. The estimated ejection fraction is 53 %. There is mild to moderate mitral annular calcification. Compared to previous study, the left ventricular systolic function has improved.. Ordering Physician: Kev Huggins Referring Physician: Darleen Craig Performed By: Desiree Smith, RDCS, RVT
--- NOTE | 2019-02-27 09:41 | CASEMGMT ---
SW participated in ICU rounds this morning. Pt's daughter Lynn, her , and Lynn's daughter present. Physician spoke w/family about possibility of needing to make a decision for a trach versus comfort measures. Daughter inquired about POA as pt had mentioned last week before intubated that she wanted daughter to be POA, however pt was on bipapp at the time so this SW did not complete the POA forms at that time w/pt. SW explained to daughter that would be first decision maker and then after that the children. Daughter asked if does not want to be decision maker would it then be her. SW explained he can say he does not want to be decision maker, and then it is up to the children. Daughter states there are four children. SW explained they also can say they don't want to be decision makers. Daughter states understanding. SW then went back to room after rounds, family has left. SW called daughter Lynn, let her know can call and other children to see if they want to be involved. Daughter Lynn states that will be sleeping, she will go get him and bring him in. She is also going to get a hold of her siblings (Mohsen, Elva and Jacob) and ask them to call this SW. SW will continue to follow, will speak w/ when he calls and pt's other children to see if any want to be involved in decision making for pt. JOSELYN Ellis
[2019-02-27] MEDS: levETIRAcetam Oral Solution 500 MG/5 ML GT ×2 (09:44→21:44)
[2019-02-27] MEDS: Aspirin 81 MG TAB.CHEW GT (09:44)
[2019-02-27] MEDS: APIXABAN 5 MG TABLET GT ×2 (09:44→21:45)
[2019-02-27] MEDS: Famotidine 20 MG Tablet GT (09:44)
[2019-02-27] MEDS: Chlorhexidine 15 ML PO ×2 (09:44→21:48)
[2019-02-27] MEDS: Clopidogrel Bisulfate 75 MG Tablet GT (09:44)
[2019-02-27] MEDS: Fenofibrate 145 MG Tablet GT (09:45)
[2019-02-27] MEDS: 0.9% Saline Lock 10 ML Syringe IV (09:45)
[2019-02-27] MEDS: QUEtiapine 100 MG Tablet GT ×2 (09:49→21:43)
[2019-02-27 11:45] LABS: Bedside Glucose 125 mg/dL (70-110)
--- NOTE | 2019-02-27 11:52 | CASEMGMT ---
Addendum entered by Jami Bermeo 02/27/19 12:38: Pt's son Jacob is here, SW spoke w/him, daughter Lynn in room. and granddaughter present. SW inquired if Jacob wants to be part of the decision making process. Son Jacob states that he would be in favor of comfort measures so does not want to be part of the decision making process. SW reviewed with family the decision that may need made, and that the decision does not need made today. Daughter Lynn states she wants to sit down with all the children and discuss what to do. SW emphasized to family to think about what pt would do if she were able to make the decision herself. Daughter states that pt would want everything done but at the same time does not want pt to suffer. SW offered support to family. Daughter Lynn states pt's other daughter may be here soon and will ask for SW to be called when she gets here. Lynn states Mohsen is also on the way. SW explained to son Jacob that since pt's does not want to be the decision maker it is up to the children to come to a decision, and they can be part of the decision making or not. Jacob states understanding. JOSELYN Ellis Addendum entered by Jami Bermeo 02/27/19 11:56: Gene asked to speak w/SW. SW spoke w/Gene again, he states he wants the children to speak with one another in regard to making decisions. SW explained to that the children will have the opportunity to be part of the decision making process, or they can decide to not be part of the decision making process. SW explained that since pt does not have POA papers, the is the decision maker. Since he does not want to be the decision maker, then any decisions that need to be made would be up to the children. SW explained that the children can choose to be part of the decision process or not. states understanding. SW will continue to follow. JOSELYN Ellis Original Note: Pt's Sin is here in the room with granddaughter Lolis. SW asked Gene if he wants to be involved in the decision making in regard to pt, or if he wants to leave it to the children to make decisions. Gene states he wants to leave it to the children to make decisions. Pt's granddaughter states Uncle Paulino (son Mohsen) will be coming in today. SW will continue to follow. JOSELYN Ellis
--- NOTE | 2019-02-27 13:30 | CASEMGMT ---
Addendum entered by Jami Bermeo 02/27/19 16:15: Pt's daughter Priscilla is here. SW spoke w/Priscilla, daughter Lynn also present. SW explained to Priscilla that at some point next week a decision may need to be made in regard to pt. SW explained that if pt cannot get off the ventilator, then it would be to have pt get a trach and peg and go to a snf facility(LTACH), or withdraw care and provide comfort measures for pt. SW explained that this decision does not need to be made today, but it may be needed next week. Daughter Priscilla states she does want to be part of the decision making process. SW let her know pt's does not want to be part of the decision, and that both sons do but have indicated they would leave it up to the other siblings(Huber) or to Priscilla and Lynn(Mohsen). SW also mentioned that Lynn has said it may be good to get together this weekend to discuss it further, SW encouraged them to do this and again reminded them that they are making decisions based on what they think their mom would decide were she able. SW also let family know if they want to all come in to meet w/the doctor we can try to set that up as well. No further questions at this time from family. At this time, Priscilla and Lynn want to be decision makers, Huber and Mohsen want to be involved but both have said they would defer to their siblings. JOSELYN Ellis Original Note: Pt's son Mohsen is now here, ICU called for SW to speak again w/family. Son Mohsen, daughter Lynn and all present, as well as daughter in law Radha( to Jacob). SW explained to son Mohsen that at some point a decision may need made, and reviewed with him the decision will likely be for pt to get a trach and peg, or to remove the ventilator and provide comfort measures. SW explained spoke w/son Jacob about this already, spoke w/, explained wanted to leave it to the children to make decisions. Mohsen states he wants to be part of the discussion but ultimately it's going to be up to his sisters(Lynn and Priscilla). Lynn suggested to Mohsen they all get together at someone's house to talk about it, Lynn also said that she is not ready to make a decision today. SW again reiterated that today they do not need to make a decision, but that they should keep in mind when making a decision what the pt would want if she were able to make the decision for herself. Mohsen states understanding. Lynn states that Priscilla is at work but would be calling this SW, she gave Priscilla this SW's number. MILE will continue to follow, at this time it seems that Mohsen and Jacob both want to talk about decisions but not necessarily make the decision. Family's numbers: Son Mohsen Patel: [phone] Son Jacob Tolentino (Deepti's number as Huber does not answer the phone): [phone] Daughter Priscilla Lopez: [phone] JOSELYN Ellis
[2019-02-27 17:56] LABS: Bedside Glucose 143 mg/dL (70-110)
[2019-02-27] MEDS: Propofol 10MG/Ml 1,000 MG/100 ML Bottle 10.3 MG CONT INF (18:41)
[2019-02-27] MEDS: Atorvastatin Calcium 80 MG Tablet GT (21:43)
[2019-02-28] VITALS (41 sets, daily range): BP systolic 85–165; BP diastolic 51–119; PULSE 64–131; RESP 14–30; TEMP 37.5–37.8; O2SAT 93–100
[2019-02-28] MEDS: Propofol 10MG/Ml 1,000 MG/100 ML Bottle 10.3 MG CONT INF (00:38)
[2019-02-28] MEDS: Ipratropium 0.5 MG/2.5 ML SOLUTION INHALATION ×6 (03:30→22:35)
[2019-02-28 04:04] LABS: Absolute Lymphocyte Count 1.01 X10^3/uL (0.83-4.51); Absolute Neutrophil Count 8.5 X10^3/uL (2.0-7.7); Basophil# 0.01 X10^3/uL; Basophil% 0.1 % (0-1); Eosinophil# 0.01 X10^3/uL; Eosinophils% 0.1 % (0-5); Hematocrit 29.5 % (37-47); Lymphocyte # 1.01 X10^3/ul (4.0); Mean Corp Hgb Conc 30.5 g/dL (32-36); Mean Corpuscular Hgb 28.1 pg (27.0-32.0); Mean Corpuscular Volume 92.2 fL (81-99); Mean Platelet Vol. 11.6 fl (6.2-12.0); Monocyte# 0.43 X10^3/uL; Monocyte% 4.3 % (0-10); NRBC Flagged by Analyzer 0.4 % (0-5); Neutrophil % 84.1 % (47-70); Platelet Count 240 K/mm3 (150-450); RBC Distribution Width CV 17.9 % (11.6-14.6); RBC Distribution Width SD 52.7 fl (35.1-43.9); White Blood Count 10.1 K/mm3 (4.4-11.0)
[2019-02-28 04:19] LABS: Anion Gap 5 (5-15); BUN 33 mg/dL (7-18); BUN/Creat Ratio 35.7 RATIO (10-20); Calcium,Total 7.7 mg/dL (8.5-10.1); Chloride 98 mmol/L (98-107); Creatinine, Serum 0.92 mg/dL (0.55-1.02); EST Glomerular Filtration Rate 63 mL/min (>60); Est Glom Filt Rate - Afr Amer 76 mL/min (>60); Estimated Creatinine Clearance 45.05 ml/min; Glucose 164 mg/dL (74-106); Magnesium 2.3 mg/dL (1.6-2.6); Phosphorus 3.5 mg/dL (2.5-4.9); Potassium 3.9 mmol/L (3.5-5.1); Sodium Level 140 mmol/L (136-145)
[2019-02-28] MEDS: Vital AF 1.2 Cal Liquid 1,000 ML 55 ML GT (05:10)
[2019-02-28] MEDS: Insulin Lispro 100 UNIT/ML INSULN.PEN SC ×2 (05:10→23:40)
[2019-02-28 05:26] LABS: Bedside Glucose 155 mg/dL (70-110)
--- NOTE | 2019-02-28 06:49 | PN_ITS ---
Subjective: Patient did okay overnight. This morning, during spontaneous awakening trial, patient had tachycardia and desaturation. Patient is being managed with less propofol at this time with the increased dose of Seroquel. No fevers been reported overnight. Patient continues to tolerate tube feeds. General: - - Opens eyes and follows simple commands. Fair vent synchrony. HEENT: Atraumatic, PERRLA, EOMI, Normocephalic, - - No scleral icterus or injection noted Oral: Moist Mucosa, No Gingival or Mucosal Lesions/ Ulcerations Neck: Supple, No JVD, No Nodes, Trachea Midline Lungs: No rhonchi, No wheeze, No rales, Diminished, - - Symmetric expansion. Cardiovascular: Normal S1, Normal S2, No murmurs, No rub noted, No Gallop, Tachycardic Abdomen: Bowel Sounds Present, Soft, Non Tender, Non-Distended Extremities: No clubbing, No cyanosis, No edema, Capillary Refill Less than 3 Seconds Skin: No rashes, No breakdown Musculoskeletal: No Tenderness to Palpation of Joints or Extremities Lymphatic: No Cervical, Supraclavicular, or Inguinal Adenopathy Neurological: Cranial nerves II-XII grossly intact, Neuro grossly intact, Motor Exam 5/5 strength throughout Psych/Mental Status: Flat Affect, Impulsive Vital Signs Temp Pulse Resp BP Pulse Ox 37.7 C H 111 H 23 H 165/75 H 97 02/28/19 05:00 02/28/19 06:00 02/28/19 06:00 02/28/19 06:00 02/28/19 06:00 Oxygen Flow Rate (L/min) 6 Oxygen Delivery Method Mechanical Ventilator Weight: 69.3 kg Body Mass Index (BMI) 26.4 Intake and Output for Last 24 Hours 02/26/19 02/27/19 02/28/19 23:59 23:59 23:59 Intake Total 3002.84 / 3010.92 1878.07 / 2345.87 944.64 / 944.64 Output Total 2450 / 2450 1350 / 1700 550 / 550 Balance 552.84 / 560.92 528.07 / 645.87 394.64 / 394.64 Labs (Last 48 Hours) 02/26/19 02/26/19 02/26/19 06:15 07:50 11:15 WBC RBC Hgb Hct MCV MCH MCHC RDW Std Deviation RDW Coeff of Abhinav Plt Count MPV Immature Gran % (Auto) Neut % (Auto) Lymph % (Auto) Hardee % (Auto) Eos % (Auto) Baso % (Auto) Absolute Neuts (auto) Absolute Lymphs (auto) Nucleated RBC % Sodium 138 Potassium 4.6 Chloride 99 Carbon Dioxide 34.0 H Anion Gap 5 BUN 34 H Creatinine 0.89 Estim Creat Clear Calc 46.57 Est GFR (MDRD) Af Amer 80 Est GFR (MDRD) Non-Af 66 BUN/Creatinine Ratio 38.2 H Glucose 155 H Calcium 7.5 L Phosphorus 3.7 Magnesium 2.7 H Total Bilirubin AST ALT Alkaline Phosphatase Ammonia < 10.0 L Total Protein Albumin Globulin Albumin/Globulin Ratio POC Glucose 135 H 02/26/19 02/26/19 02/27/19 17:03 23:25 03:07 WBC 9.9 RBC 3.13 L Hgb 8.7 L Hct 28.7 L MCV 91.7 MCH 27.8 MCHC 30.3 L RDW Std Deviation 51.7 H RDW Coeff of Abhinav 16.9 H Plt Count 244 MPV 11.2 Immature Gran % (Auto) 1.600 H Neut % (Auto) 86.0 H Lymph % (Auto) 7.5 L Hardee % (Auto) 4.7 Eos % (Auto) 0.1 Baso % (Auto) 0.1 Absolute Neuts (auto) 8.5 H Absolute Lymphs (auto) 0.74 L Nucleated RBC % 0.5 Sodium Potassium Chloride Carbon Dioxide Anion Gap BUN Creatinine Estim Creat Clear Calc Est GFR (MDRD) Af Amer Est GFR (MDRD) Non-Af BUN/Creatinine Ratio Glucose Calcium Phosphorus Magnesium Total Bilirubin AST ALT Alkaline Phosphatase Ammonia Total Protein Albumin Globulin Albumin/Globulin Ratio POC Glucose 126 H 124 H 02/27/19 02/27/19 02/27/19 03:07 05:06 11:39 WBC RBC Hgb Hct MCV MCH MCHC RDW Std Deviation RDW Coeff of Abhinav Plt Count MPV Immature Gran % (Auto) Neut % (Auto) Lymph % (Auto) Hardee % (Auto) Eos % (Auto) Baso % (Auto) Absolute Neuts (auto) Absolute Lymphs (auto) Nucleated RBC % Sodium 140 Potassium 4.5 Chloride 98 Carbon Dioxide 38.0 H Anion Gap 4 L BUN 34 H Creatinine 0.90 Estim Creat Clear Calc 46.05 Est GFR (MDRD) Af Amer 78 Est GFR (MDRD) Non-Af 65 BUN/Creatinine Ratio 37.6 H Glucose 141 H Calcium 7.9 L Phosphorus 3.5 Magnesium Total Bilirubin 0.30 AST 36 ALT 24 Alkaline Phosphatase 60 Ammonia Total Protein 5.7 L Albumin 2.7 L Globulin 3.0 Albumin/Globulin Ratio 0.9 POC Glucose 145 H 125 H 02/27/19 02/28/19 02/28/19 17:51 03:50 03:50 WBC 10.1 RBC 3.20 L Hgb 9.0 L Hct 29.5 L MCV 92.2 MCH 28.1 MCHC 30.5 L RDW Std Deviation 52.7 H RDW Coeff of Abhinav 17.9 H Plt Count 240 MPV 11.6 Immature Gran % (Auto) 1.400 H Neut % (Auto) 84.1 H Lymph % (Auto) 10.0 L Hardee % (Auto) 4.3 Eos % (Auto) 0.1 Baso % (Auto) 0.1 Absolute Neuts (auto) 8.5 H Absolute Lymphs (auto) 1.01 Nucleated RBC % 0.4 Sodium 140 Potassium 3.9 Chloride 98 Carbon Dioxide 37.0 H Anion Gap 5 BUN 33 H Creatinine 0.92 Estim Creat Clear Calc 45.05 Est GFR (MDRD) Af Amer 76 Est GFR (MDRD) Non-Af 63 BUN/Creatinine Ratio 35.7 H Glucose 164 H Calcium 7.7 L Phosphorus 3.5 Magnesium 2.3 Total Bilirubin AST ALT Alkaline Phosphatase Ammonia Total Protein Albumin Globulin Albumin/Globulin Ratio POC Glucose 143 H 02/28/19 05:06 WBC RBC Hgb Hct MCV MCH MCHC RDW Std Deviation RDW Coeff of Abhinav Plt Count MPV Immature Gran % (Auto) Neut % (Auto) Lymph % (Auto) Hardee % (Auto) Eos % (Auto) Baso % (Auto) Absolute Neuts (auto) Absolute Lymphs (auto) Nucleated RBC % Sodium Potassium Chloride Carbon Dioxide Anion Gap BUN Creatinine Estim Creat Clear Calc Est GFR (MDRD) Af Amer Est GFR (MDRD) Non-Af BUN/Creatinine Ratio Glucose Calcium Phosphorus Magnesium Total Bilirubin AST ALT Alkaline Phosphatase Ammonia Total Protein Albumin Globulin Albumin/Globulin Ratio POC Glucose 155 H Microbiology 02/26/19 05:50 Sputum, Induced/Lukens Gram Stain - Final 02/26/19 05:50 Sputum, Induced/Lukens Respiratory Culture - Preliminary Culture exhibits no growth. 02/24/19 10:40 Blood Culture (Wb) - Line Draw Blood Culture - Preliminary No growth in 48 hours. 02/24/19 12:30 Blood Culture (Wb) - Arm Right Blood Culture - Preliminary No growth in 48 hours. 02/24/19 12:20 Urine Catheter - Burk Urine Culture - Final Culture exhibits no growth. Medical Necessity - Tobacco Use Smoking Status: Former smoker Tobacco Use: Cigarettes Assessment/Plan All Active Problems (Last Reviewed 08/01/18 @ 15:50 by Jackson Peter DO) Lower respiratory infection (Acute) Acute respiratory failure with hypoxia and hypercapnia (Acute) Pneumonia (Acute) Sepsis (Acute) Pulmonary embolism (Acute) Cholelithiasis NOS (Acute) Acute respiratory failure with hypoxia and hypercapnia (Acute) COPD with acute exacerbation (Acute) Gram-negative pneumonia (Acute) Acute hypercapnic respiratory failure (Acute) NSTEMI (non-ST elevated myocardial infarction) (Acute) COPD exacerbation (Acute) RECOMMENDATIONS: 1. Continue IV Levaquin to complete a 10-day course. 2. Continue propofol and fentanyl for sedation. Continue Seroquel 3. Continue tube feeds as ordered. 4. Wean oxygen as tolerated to maintain saturations above 90% 5. Attempt breathing trial on low-dose propofol 6. Continue bronchodilators. Transition to prednisone therapy. 7. Continue Eliquis and Pepcid. IMPRESSIONS: 1. Acute on chronic combined respiratory failure likely secondary to COPD with exacerbation Patient with probable pseudomonal pneumonia of the left lower lobe. Patient has remained on positive pressure ventilatory support, but it is unclear if this is secondary to continued difficulty with respirations versus agitation associated with spontaneous awakening trials. Will keep Seroquel at current dosing Seroquel and continue. Repeat cultures are negative indicating probable drug-induced fever from Precedex therapy. Transition to p.o. prednisone and wean over the next 12 to 14 days. Attempting to diurese patient given improvement in blood pressure. Low oncotic pressure secondary to decreased albumin may complicate this approach. Although not protocol, will attempt spontaneous breathing trial while on sedation, but will need an ABG if tolerates 1 hour. 2. Septic shock secondary to pseudomonal pneumonia Continue current supportive measures with bronchodilators, steroids and antimicrobials. Patient has been weaned off of Levophed therapy. Patient should complete Levaquin course over the weekend. 3. History of venous thromboembolic disease The patient does have a history of pulmonary emboli, for which she will be continued on Eliquis per outpatient regimen. 4. Troponin elevation/NSTEMI/Acute on Chronic Systolic Heart Failure/Pulmonary Hypertension Although initially felt to be secondary to demand ischemia, a review of the patient's repeat echocardiogram revealed worsening in her LV ejection fra ction. Therefore, cardiology was consulted and is currently following to assist with medical management. The patient may require heart catheterization, pending improvement in clinical stability. Will defer management and further work-up to cardiology. 5. Chronic systolic heart failure/pulmonary hypertension Cardiology is currently following to assist with medical management. We will continue to dose diuretic therapy on a as needed basis as blood pressure allows. 6. New onset seizure activity The patient apparently had a witnessed tonic-clonic seizure on 02/23. However, it resolved without intervention and has not recurred. No further seizure activity has been witnessed. EEG was completed, with read suggesting generalized slowing and possible hepatic encephalopathy. Neurology tele-consult was completed. 7. Tobacco dependency, currently in remission/hypertension/hyperlipidemia/peripheral vascular disease Complicates care, management, recovery and prognosis. Physical therapy to work with the patient. TIME: 32 minutes of critical care time, independent of procedures, was spent addressing the patient's acute on chronic combined respiratory failure, COPD with exacerbation, severe sepsis secondary to community-acquired pneumonia, history of venous thromboembolic disease, history of systolic heart failure, pulmonary hypertension, NSTEMI, review of all data and collaboration with care team. (5:50 AM to 6:40 AM) Code Visit 9xxxx: [id number] Critical care first hour
--- NOTE | 2019-02-28 07:38 | PCM.PN.HOSP ---
Patient Problems: Active and Suspected Problems (Last Reviewed 08/01/18 @ 15:50 by Jackson Peter DO) Acute respiratory failure with hypoxia and hypercapnia (Acute) Pneumonia (Acute) Sepsis (Acute) Reason for Visit: Follow-up on respiratory failure Subjective: Patient was seen and examined. Undergoing spontaneous breathing trial. Remains on propofol and fentanyl drips. No other acute events overnight. Objective: Physical exam: General: intubated, not following commands, moves around in bed, pale, not jaundiced HEENT: Atraumatic, PERRLA, EOMI, Normocephalic Oral: Dry Mucosa Neck: Supple, No JVD, Negative Carotid Bruits Lungs: - -breath sounds decreased bibasally, no wheezes or crackles. Intubated. Cardiovascular: Regular rate, Regular Rhythm, Normal S1, Normal S2, No murmurs Abdomen: Bowel Sounds Present, Soft, Non Tender Extremities: No clubbing, No cyanosis, No edema, Capillary Refill Less than 3 Seconds Skin: No rashes, No breakdown Musculoskeletal: No Tenderness to Palpation of Joints or Extremities Lymphatic: No Cervical, Supraclavicular, or Inguinal Adenopathy Neurological: Cranial nerves II-XII grossly intact, Neuro grossly intact, Motor Exam 5/5 strength throughout Psych/Mental Status: intubated, on sedation, not following commands Vitals/I&O's: Vital Signs Temp Pulse Resp BP Pulse Ox 99.9 F H 98 17 125/67 H 97 02/28/19 05:00 02/28/19 07:00 02/28/19 07:00 02/28/19 07:00 02/28/19 07:00 Oxygen Flow Rate (L/min) 6 Oxygen Delivery Method Mechanical Ventilator Weight: 69.3 kg Body Mass Index (BMI) 26.4 Intake and Output for Last 24 Hours 02/26/19 02/27/19 02/28/19 23:59 23:59 23:59 Intake Total 3002.84 / 3010.92 1878.07 / 2345.87 960.57 / 960.57 Output Total 2450 / 2450 1350 / 1700 550 / 550 Balance 552.84 / 560.92 528.07 / 645.87 410.57 / 410.57 Microbiology Past 72 Hours 02/26/19 05:50 Sputum, Induced/Lukens Gram Stain - Final 02/26/19 05:50 Sputum, Induced/Lukens Respiratory Culture - Final Culture exhibits no growth. 02/24/19 10:40 Blood Culture (Wb) - Line Draw Blood Culture - Preliminary No growth in 48 hours. 02/24/19 12:30 Blood Culture (Wb) - Arm Right Blood Culture - Preliminary No growth in 48 hours. 02/24/19 12:20 Urine Catheter - Burk Urine Culture - Final Culture exhibits no growth. Laboratory Results 02/27/19 11:39: POC Glucose 125 H 02/27/19 17:51: POC Glucose 143 H 02/28/19 03:50: WBC 10.1, RBC 3.20 L, Hgb 9.0 L, Hct 29.5 L, MCV 92.2, MCH 28.1, MCHC 30.5 L, RDW Std Deviation 52.7 H, RDW Coeff of Abhinav 17.9 H, Plt Count 240, MPV 11.6, Immature Gran % (Auto) 1.400 H, Neut % (Auto) 84.1 H, Lymph % (Auto) 10.0 L, Scott % (Auto) 4.3, Eos % (Auto) 0.1, Baso % (Auto) 0.1, Absolute Neuts (auto) 8.5 H, Absolute Lymphs (auto) 1.01, Nucleated RBC % 0.4 02/28/19 03:50: Sodium 140, Potassium 3.9, Chloride 98, Carbon Dioxide 37.0 H, Anion Gap 5, BUN 33 H, Creatinine 0.92, Estim Creat Clear Calc 45.05, Est GFR (MDRD) Af Amer 76, Est GFR (MDRD) Non-Af 63, BUN/Creatinine Ratio 35.7 H, Glucose 164 H, Calcium 7.7 L, Phosphorus 3.5, Magnesium 2.3 02/28/19 05:06: POC Glucose 155 H Current Medications Acetaminophen (Tylenol Liquid) 650 mg GT Q6H PRN PRN PRN Reason: Pain 1-3/10 or Fever >100.7 Last Admin: 02/23/19 17:56 Dose: 650 mg Documented by: Apixaban (Eliquis) 5 mg GT BID [facility] Last Admin: 02/27/19 21:45 Dose: 5 mg Documented by: Aspirin (Aspirin, Baby) 81 mg GT DAILY@0800 [facility] Last Admin: 02/27/19 09:44 Dose: 81 mg Documented by: Atorvastatin Calcium (Lipitor) 80 mg GT QHS [facility] Last Admin: 02/27/19 21:43 Dose: 80 mg Documented by: Chlorhexidine Gluconate () 1 each TOPICAL DAILY [facility] Last Admin: 02/27/19 02:28 Dose: 1 each Documented by: Chlorhexidine Gluconate () 15 ml PO BID [facility] Last Admin: 02/27/19 21:48 Dose: 15 ml Documented by: Clopidogrel Bisulfate (Plavix) 75 mg GT DAILY [facility] Last Admin: 02/27/19 09:44 Dose: 75 mg Documented by: Famotidine (Pepcid) 20 mg GT DAILY [facility] Last Admin: 02/27/19 09:44 Dose: 20 mg Documented by: Fenofibrate (Tricor) 145 mg GT DAILY [facility] Last Admin: 02/27/19 09:45 Dose: 145 mg Documented by: Glucagon () 1 mg IM .X1 PRN PRN Reason: Hypoglycemia Sodium Chloride () 250 mls @ 15 mls/hr IV .[id number] PRN PRN Reason: Saline Flush Last Infusion: 02/27/19 08:04 Dose: Infused Documented by: Sodium Chloride () 250 mls @ 15 mls/hr IV .[id number] PRN PRN Reason: Additional IVPB Infusion Dextrose (Dextrose 10%-Water) 250 mls @ 999 mls/hr IV .Q16M PRN; Protocol PRN Reason: HYPOGLYCEMIA Enteral Nutritional Formula (Vital Af 1.2 Hakan Liquid) 1,000 mls @ 55 mls/hr GT .[id number] [facility] Last Admin: 02/28/19 05:10 Dose: 55 mls/hr Documented by: Propofol (Diprivan) 1,000 mg in 100 mls @ 4.158 mls/hr CONT INF .Q12H [facility]; Protocol Last Titration: 02/28/19 06:59 Dose: 15 mcg/kg/min, 6.2 mls/hr Documented by: Levofloxacin (Levaquin Iv) 750 mg in 150 mls @ 100 mls/hr IV Q48 [facility] Stop: 03/02/19 10:01 Last Infusion: 02/26/19 11:30 Dose: Infused Documented by: Fentanyl () 100 mls @ 5 mls/hr IV UD [facility]; Protocol Last Titration: 02/28/19 06:59 Dose: 100 mcg/hr, 10 mls/hr Documented by: Insulin Human Lispro (Humalog Kwikpen (Bkc)) 0 unit SC Q6 [facility]; Protocol Last Admin: 02/28/19 05:10 Dose: 1 u Documented by: Ipratropium [place]ing (Atrovent) 0.5 mg INHALATION Q4H.RT NAIF Last Admin: 02/28/19 06:48 Dose: 0.5 mg Documented by: Levetiracetam (Keppra Oral Solution) 500 mg GT BID [facility] Last Admin: 02/27/19 21:44 Dose: 500 mg Documented by: Lorazepam (Ativan) 2 mg IV Q4H PRN PRN PRN Reason: SEIZURES Last Admin: 02/23/19 23:38 Dose: 2 mg Documented by: Nicotine (Nicoderm Cq (Pbkc)) 21 mg TRANSDERM. DAILY [facility] Last Admin: 02/27/19 09:45 Dose: 21 mg Documented by: Nitroglycerin (Nitrostat) 0.4 mg SUBLINGUAL Q5M PRN PRN Reason: CHEST Polyethylene Glycol (Miralax) 17 gm GT DAILY PRN PRN Reason: Constipation Last Admin: 02/22/19 15:59 Dose: 17 gm Documented by: Prednisone () 40 mg PO DAILY@0800 [facility] Quetiapine Fumarate (Seroquel) 100 mg GT BID [facility] Last Admin: 02/27/19 21:43 Dose: 100 mg Documented by: Sodium Chloride () 10 - 40 ml IV UD PRN PRN Reason: SALINE FLUSH Last Admin: 02/27/19 09:45 Dose: 10 ml Documented by: STROKE Vital Signs/Narrative: Vital Signs Temp Pulse Resp BP Pulse Ox 02/28/19 07:00 98 17 125/67 H 97 02/28/19 06:53 99 02/28/19 06:00 111 H 23 H 165/75 H 97 02/28/19 05:15 96 21 H 99 02/28/19 05:00 99.9 F H 94 17 113/61 98 02/28/19 04:00 99.9 F H 71 16 92/56 L 96 Medical Necessity - Tobacco Use Smoking Status: Former smoker Tobacco Use: Cigarettes Assessment/Plan All Active Problems (Last Reviewed 08/01/18 @ 15:50 by Jackson Peter DO) Lower respiratory infection (Acute) Acute respiratory failure with hypoxia and hypercapnia (Acute) Pneumonia (Acute) Sepsis (Acute) Pulmonary embolism (Acute) Cholelithiasis NOS (Acute) Acute respiratory failure with hypoxia and hypercapnia (Acute) COPD with acute exacerbation (Acute) Gram-negative pneumonia (Acute) Acute hypercapnic respiratory failure (Acute) NSTEMI (non-ST elevated myocardial infarction) (Acute) COPD exacerbation (Acute) 73 y/o female with past medical history of chronic severe interstitial fibrosis admitted with a complaint of worsening shortness of breath 1. Acute on chronic hypoxic respiratory failure secondary to acute COPD exacerbation/pseudomonas pneumonia Remains intubated, on mechanical ventilator, Fi02 50% Day 8 of intubation 2. Seizure likely medication-related/febrile-related/possible serotonin syndrome Off Precedex, seroquel, bupropion and paroxetine EEG ordered shows generalized slowness with triphasic waves, On Keppra via OG tube 3. Severe sepsis secondary to pseudomonas pneumonia, still febrile On Levaquin. Initial blood cultures, influenza screen, respiratory panel, urine streptococcal and Legionella antigen negative Repeat blood cultures, urine cultures and sputum cultures are negative Continue on Levaquin, aiming for total 10 day course 4. Acute systolic heart failure, EF 20% Lasix was on hold on account of hemodynamic instability 5. NSTEMI, medically being managed now History of CAD s/p stents Continue on aspirin, plavix, statin, Imdur Cardiac cath planned when stable and extubated 6. Acute COPD exacerbation, improving, Started on po prednisone Management as in #1 7. Hypertension, BP meds on hold Will continue to monitor 8. History of DVT, continue on eliquis 9. Nicotine dependence, on replacement. 10. DVT prophylaxis- on eliquis 11. Code status: full code Code Visit Inpatient E&M: 27273 Subs Hosp L2
[2019-02-28] MEDS: Clopidogrel Bisulfate 75 MG Tablet GT (08:30)
[2019-02-28] MEDS: Fenofibrate 145 MG Tablet GT (08:31)
[2019-02-28] MEDS: Aspirin 81 MG TAB.CHEW GT (08:31)
[2019-02-28] MEDS: Famotidine 20 MG Tablet GT (08:31)
[2019-02-28] MEDS: levETIRAcetam Oral Solution 500 MG/5 ML GT ×2 (08:31→21:13)
[2019-02-28] MEDS: APIXABAN 5 MG TABLET GT (08:32)
[2019-02-28] MEDS: predniSONE 20 MG Tablet 40 MG PO (08:32)
[2019-02-28] MEDS: Chlorhexidine 15 ML PO ×2 (08:33→21:18)
[2019-02-28] MEDS: QUEtiapine 100 MG Tablet GT ×2 (08:46→21:13)
--- NOTE | 2019-02-28 09:28 | CM.UR ---
Participated in interdisciplinary rounds this am. Patient is currently doing a SBT. She is doing well even though sedated. She is to get a ABG to see if breathing is effective. Remains intubated. Dr. Breaux explained he will leave her intubated until tomorrow (even if successful sbt) to avoid the need to re-intubate as much as possible. Daughter Camila at bedside. She discussed her thoughts and still wants to talk more to siblings. States they are leaving the decision essentially up to her and her sister. I reinforced what MILE Atwood had discussed with her that the plan will be placement regardless of decision. If she can be extubated she will be weak d/t to extended intubation. If they choose to trach and peg, she will need to go to facility for ongoing care. Daughter states the patient was always adamant that she never wanted to be in a facility. Explained that is not going to be possible at this point. Explained if she is successfully extubated that TCU might be an option and that is usually more acceptable to people d/t feels like being in the hospital. Encouraged Camila to continue to think about and discuss further with family. She verb understanding and agreement. Ely Moyer, RN, [facility].
[2019-02-28 09:41] LABS: Allen Test POS; Base Excess 18 mmol/L (-2 to +2); Bicarbonate 40.3 mmol/L (22-26); Blood Gas Specimen Type ART; FI02 35; Mode CPAP PS; O2 Delivery Device Vent; PEEP 5; PO2 62 mmHG (75-100); PS 5; SITE L Radial; SO2 93 % (95-99); Time Given 930; Total Carbon Dioxide 42 mmol/L; pCO2 47.9 mmHg (35-45); pH 7.53 (7.35-7.45)
--- NOTE | 2019-02-28 09:54 | PCM.PN.CARD ---
Subjectve: Patient currently intubated, undergoing a weaning trial, tachycardic, normal pressure. Patient has new dynamic anterior T wave changes on her EKG which were not present on admission. Telemetry is negative. I attended rounds with Dr. Breaux and his team. Original CT scan reviewed. Objective: Vital Signs Temp Pulse Resp BP Pulse Ox 99.8 F H 94 22 H 148/76 H 96 02/28/19 08:00 02/28/19 09:19 02/28/19 09:19 02/28/19 09:12 02/28/19 09:19 Oxygen Flow Rate (L/min) 6 Oxygen Delivery Method Mechanical Ventilator Weight: 152 lb 12.485 oz Body Mass Index (BMI) 26.4 Intake and Output for Last 24 Hours 02/26/19 02/27/19 02/28/19 23:59 23:59 23:59 Intake Total 3002.84 / 3010.92 1878.07 / 2345.87 993.24 / 993.24 Output Total 2450 / 2450 1350 / 1700 550 / 550 Balance 552.84 / 560.92 528.07 / 645.87 443.24 / 443.24 General: Awake, Alert, Oriented x 3 HEENT: PERRL, EOMI, Sclera Non Icteric Neck: Supple, Good ROM, No Lymph Node Enlargement Lungs: Clear to auscultation Cardiovascular: Regular Rhythm, Normal S1, Normal S2, No Murmurs, No Rubs, No Gallops 02/28/19 03:50: WBC 10.1, RBC 3.20 L, Hgb 9.0 L, Hct 29.5 L, MCV 92.2, MCH 28.1, MCHC 30.5 L, Plt Count 240, MPV 11.6, Immature Gran % (Auto) 1.400 H, Neut % (Auto) 84.1 H, Lymph % (Auto) 10.0 L, [place] % (Auto) 4.3, Eos % (Auto) 0.1, Baso % (Auto) 0.1, Absolute Neuts (auto) 8.5 H, Nucleated RBC % 0.4 02/28/19 03:50: Sodium 140, Potassium 3.9, Chloride 98, Carbon Dioxide 37.0 H, Anion Gap 5, BUN 33 H, Creatinine 0.92, Est GFR (MDRD) Af Amer 76, Est GFR (MDRD) Non-Af 63, BUN/Creatinine Ratio 35.7 H, Glucose 164 H, Calcium 7.7 L, Phosphorus 3.5, Magnesium 2.3 02/28/19 09:33: pH 7.53 H, Bicarbonate Actual 40.3 H, POC Total CO2 42, Base Excess 18 H, O2 Saturation 93 L, ABG pCO2 47.9 H, ABG pO2 62 L, Angelo Test POS Rhythm: EKG: ECHO: EF of 53%, unable to quantitate RVSP. Stress Test: Cardiac Cath: PCI: CT Surgery: Holter monitor: EPS: PPM: CXR: Chest CT Scan: Medical Necessity - Tobacco Use Smoking Status: Former smoker Tobacco Use: Cigarettes Assessment/Plan 1. Coronary artery disease: Patient has known coronary disease and underwent repeat diagnostic catheterization in March [address] Rodrigues. At that time it revealed that she had widely patent stents of her proximal right coronary artery, and ostial 85% diagonal stenosis, possible significant proximal LAD stenosis upstream from the diagonal branch, an 85% ostial stenosis of a moderate to large sized obtuse marginal branch which feeds the lateral wall. The patient presents with bilateral pneumonia requiring intubation for the past 8 days. During that time her EKG is evolved into anterior T wave inversion, with a peak troponin of 0.919 although she has had no further troponin since that time. The patient has had several attempts to wean her off the ventilator which have thus far been unsuccessful suggesting that she may have an ischemic component to challenges with extubation. Superimposed on this the patient has known mild to moderate LV dysfunction with an EF around 50% confirmed by catheterization and echocardiogram on this admission. She has evidence of inferior hypokinesis. In addition if she is unsuccessful with her weaning, she may require a trach and PEG tube. She is currently on Eliquis as well as Plavix. After discussing with the patient's family, Dr. Breaux, it may be reasonable to proceed with diagnostic left heart catheterization and possible intervention of her LAD/diagonal and/or her obtuse marginal to assist with extubation. My preference would be to do the diagnostic coronary catheterization while she is still intubated particularly in light of her severe bilateral pneumonia and difficulty weaning off the ventilator. Despite these efforts, the patient still may require trach and PEG which may be somewhat problematic with anticoagulation antiplatelet therapy. For that reason, it may be reasonable to proceed with trach and PEG first while the patient is off of antiplatelet and anticoagulation therapy, allow those wounds to heal, and then proceed with intervention if necessary. In the meantime, I would recommend restarting her antihypertensive medication slowly starting with Lopressor 25 mg p.o. twice daily, Imdur 30 mg a day to assist with pulmonary and coronary vasodilatation, with gradual titration back up to 90 mg a day, and hold on restarting losartan and amlodipine for now. If we are going to proceed with catheterization on Saturday we need to stop her Eliquis today. I will correspond with Dr. Breaux regarding this issue. She may require transitioning to subcu Lovenox tomorrow. 2. Hyperlipidemia: Continue Lipitor therapy. 3. Thank you very much for the opportunity to participate in the cardiac care of your patient. Code Visit Inpatient E&M: 45213 [facility] Hosp L3
[2019-02-28] MEDS: levoFLOXacin IV 750 MG/150 ML BAG 100 MG IV (10:01)
[2019-02-28] MEDS: CHLORHEXIDINE GLUC 2% CLOTH 1 EACH TOWELETTE TOPICAL (10:01)
[2019-02-28] MEDS: Propofol 10MG/Ml 1,000 MG/100 ML Bottle 6.2 MG CONT INF ×2 (10:23→18:06)
[2019-02-28 11:30] LABS: Bedside Glucose 114 mg/dL (70-110)
--- NOTE | 2019-02-28 14:07 | CPS ---
Spontaneous breathing trial done per Dr. Breaux. Dr. Breaux wanted to see if pt could breath on own or not. Pt trialed for 4 hours until getting very anxious and needing to be switched back to AC/VC settings. Will trial again tomorrow morning with sedation.
[2019-02-28] MEDS: Polyethylene Glycol 3350 17 GM PACKET GT (15:36)
[2019-02-28 17:20] LABS: Bedside Glucose 115 mg/dL (70-110)
--- NOTE | 2019-02-28 18:01 | NURSING ---
rings taken off right hand and given to patient's daughter, Lynn
[2019-02-28] MEDS: Atorvastatin Calcium 80 MG Tablet GT (21:13)
[2019-02-28] MEDS: Propofol 10MG/Ml 1,000 MG/100 ML Bottle 8.3 MG CONT INF (23:44)
[2019-02-28 23:46] LABS: Bedside Glucose 165 mg/dL (70-110)
[2019-03-01] VITALS (37 sets, daily range): BP systolic 91–169; BP diastolic 47–106; PULSE 64–104; RESP 12–32; TEMP 36.9–37.7; O2SAT 86–100
[2019-03-01 01:26] LABS: Bedside Glucose 125 mg/dL (70-110)
[2019-03-01] MEDS: Ipratropium 0.5 MG/2.5 ML SOLUTION INHALATION ×3 (03:05→21:09)
--- NOTE | 2019-03-01 03:30 | NURSING ---
0330 Titrated fentanyl to 100 mcg/hr, cpot 0/0.
[2019-03-01 04:37] LABS: Absolute Lymphocyte Count 3.01 X10^3/uL (0.83-4.51); Absolute Neutrophil Count 8.4 X10^3/uL (2.0-7.7); Basophil# 0.01 X10^3/uL; Basophil% 0.1 % (0-1); Eosinophil# 0.14 X10^3/uL; Eosinophils% 1.1 % (0-5); Hematocrit 30.2 % (37-47); Hemoglobin 9.1 g/dL (12.0-15.0); Lymphocyte # 3.01 X10^3/ul (4.0); Lymphocyte % 23.7 % (19-41); Mean Corp Hgb Conc 30.1 g/dL (32-36); Mean Corpuscular Hgb 27.5 pg (27.0-32.0); Mean Corpuscular Volume 91.2 fL (81-99); Mean Platelet Vol. 10.9 fl (6.2-12.0); Monocyte# 0.96 X10^3/uL; Monocyte% 7.6 % (0-10); NRBC Flagged by Analyzer 0.2 % (0-5); Platelet Count 269 K/mm3 (150-450); RBC Distribution Width CV 18.3 % (11.6-14.6); RBC Distribution Width SD 54.6 fl (35.1-43.9); Red Blood Count 3.31 M/mm3 (4.2-5.4); White Blood Count 12.7 K/mm3 (4.4-11.0)
[2019-03-01 04:48] LABS: Anion Gap 2 (5-15); BUN 29 mg/dL (7-18); BUN/Creat Ratio 30.2 RATIO (10-20); Calcium,Total 8.2 mg/dL (8.5-10.1); Chloride 102 mmol/L (98-107); Creatinine, Serum 0.96 mg/dL (0.55-1.02); EST Glomerular Filtration Rate 60 mL/min (>60); Est Glom Filt Rate - Afr Amer 73 mL/min (>60); Estimated Creatinine Clearance 43.17 ml/min; Glucose 85 mg/dL (74-106); Potassium 3.6 mmol/L (3.5-5.1); Sodium Level 142 mmol/L (136-145)
--- NOTE | 2019-03-01 06:44 | PCM.PN.INT ---
Subjective: Patient did okay overnight hemodynamically. Patient did have some elevated temperature, but did not qualify for fever. Patient is once again tolerating a spontaneous breathing trial while on sedation and fentanyl and doing well. Reportedly, family has met and has decided that patient will be DNR Comfort Care arrest without intubation. This has not been personally confirmed yet at this time. General: - - Intubated and sedated. RASS -1. Good vent synchrony. HEENT: Atraumatic, PERRLA, EOMI, Normocephalic, - - No scleral icterus or injection noted Oral: Moist Mucosa, No Gingival or Mucosal Lesions/ Ulcerations Neck: Supple, No JVD, No Nodes, Trachea Midline Lungs: No rhonchi, No wheeze, No rales, Diminished, - - Symmetric expansion. No dullness to percussion. Cardiovascular: Regular rate, Regular Rhythm, Normal S1, Normal S2, No murmurs, No rub noted, No Gallop Abdomen: Bowel Sounds Present, Soft, Non Tender, Non-Distended Extremities: No cyanosis, No edema, Clubbing Skin: No rashes, No breakdown Musculoskeletal: No Tenderness to Palpation of Joints or Extremities Lymphatic: No Cervical, Supraclavicular, or Inguinal Adenopathy Neurological: Cranial nerves II-XII grossly intact, Neuro grossly intact, Motor Exam 5/5 strength throughout Psych/Mental Status: Appropriate, Flat Affect Vital Signs Temp Pulse Resp BP Pulse Ox 37.4 C H 84 14 130/66 H 99 03/01/19 06:00 03/01/19 06:00 03/01/19 06:00 03/01/19 06:00 03/01/19 06:00 Oxygen Flow Rate (L/min) 35 Oxygen Delivery Method Mechanical Ventilator Weight: 68.5 kg Body Mass Index (BMI) 26.4 Intake and Output for Last 24 Hours 02/27/19 02/28/19 03/01/19 23:59 23:59 23:59 Intake Total 1878.07 / 2345.87 2178.94 / 2193.65 98.68 / 98.68 Output Total 1350 / 1700 2110 / 2110 200 / 200 Balance 528.07 / 645.87 68.94 / 83.65 -101.32 / -101.32 Labs (Last 48 Hours) 02/27/19 02/27/19 02/28/19 11:39 17:51 00:32 WBC RBC Hgb Hct MCV MCH MCHC RDW Std Deviation RDW Coeff of Abhinav Plt Count MPV Immature Gran % (Auto) Neut % (Auto) Lymph % (Auto) [place] % (Auto) Eos % (Auto) Baso % (Auto) Absolute Neuts (auto) Absolute Lymphs (auto) Nucleated RBC % Specimen Type Sample Site pH Bicarbonate Actual POC Total CO2 Base Excess O2 Saturation O2 % ABG pCO2 ABG pO2 Angelo Test O2 Delivery Device Vent Mode POC PEEP POC Pressure Suppt Blood Gas Notified Time Sodium Potassium Chloride Carbon Dioxide Anion Gap BUN Creatinine Estim Creat Clear Calc Est GFR (MDRD) Af Amer Est GFR (MDRD) Non-Af BUN/Creatinine Ratio Glucose Calcium Phosphorus Magnesium POC Glucose 125 H 143 H 125 H 02/28/19 02/28/19 02/28/19 03:50 03:50 05:06 WBC 10.1 RBC 3.20 L Hgb 9.0 L Hct 29.5 L MCV 92.2 MCH 28.1 MCHC 30.5 L RDW Std Deviation 52.7 H RDW Coeff of Abhinav 17.9 H Plt Count 240 MPV 11.6 Immature Gran % (Auto) 1.400 H Neut % (Auto) 84.1 H Lymph % (Auto) 10.0 L [place] % (Auto) 4.3 Eos % (Auto) 0.1 Baso % (Auto) 0.1 Absolute Neuts (auto) 8.5 H Absolute Lymphs (auto) 1.01 Nucleated RBC % 0.4 Specimen Type Sample Site pH Bicarbonate Actual POC Total CO2 Base Excess O2 Saturation O2 % ABG pCO2 ABG pO2 Angelo Test O2 Delivery Device Vent Mode POC PEEP POC Pressure Suppt Blood Gas Notified Time Sodium 140 Potassium 3.9 Chloride 98 Carbon Dioxide 37.0 H Anion Gap 5 BUN 33 H Creatinine 0.92 Estim Creat Clear Calc 45.05 Est GFR (MDRD) Af Amer 76 Est GFR (MDRD) Non-Af 63 BUN/Creatinine Ratio 35.7 H Glucose 164 H Calcium 7.7 L Phosphorus 3.5 Magnesium 2.3 POC Glucose 155 H 02/28/19 02/28/19 02/28/19 09:33 11:20 17:08 WBC RBC Hgb Hct MCV MCH MCHC RDW Std Deviation RDW Coeff of Abhinav Plt Count MPV Immature Gran % (Auto) Neut % (Auto) Lymph % (Auto) [place] % (Auto) Eos % (Auto) Baso % (Auto) Absolute Neuts (auto) Absolute Lymphs (auto) Nucleated RBC % Specimen Type ART Sample Site L Radial pH 7.53 H Bicarbonate Actual 40.3 H POC Total CO2 42 Base Excess 18 H O2 Saturation 93 L O2 % 35 ABG pCO2 47.9 H ABG pO2 62 L Angelo Test POS O2 Delivery Device Vent Vent Mode CPAP PS POC PEEP 5 POC Pressure Suppt 5 Blood Gas Notified Time 930 Sodium Potassium Chloride Carbon Dioxide Anion Gap BUN Creatinine Estim Creat Clear Calc Est GFR (MDRD) Af Amer Est GFR (MDRD) Non-Af BUN/Creatinine Ratio Glucose Calcium Phosphorus Magnesium POC Glucose 114 H 115 H 02/28/19 03/01/19 03/01/19 23:37 04:20 04:20 WBC 12.7 H RBC 3.31 L Hgb 9.1 L Hct 30.2 L MCV 91.2 MCH 27.5 MCHC 30.1 L RDW Std Deviation 54.6 H RDW Coeff of Abhinav 18.3 H Plt Count 269 MPV 10.9 Immature Gran % (Auto) 1.500 H Neut % (Auto) 66.0 Lymph % (Auto) 23.7 [place] % (Auto) 7.6 Eos % (Auto) 1.1 Baso % (Auto) 0.1 Absolute Neuts (auto) 8.4 H Absolute Lymphs (auto) 3.01 Nucleated RBC % 0.2 Specimen Type Sample Site pH Bicarbonate Actual POC Total CO2 Base Excess O2 Saturation O2 % ABG pCO2 ABG pO2 Angelo Test O2 Delivery Device Vent Mode POC PEEP POC Pressure Suppt Blood Gas Notified Time Sodium 142 Potassium 3.6 Chloride 102 Carbon Dioxide 38.0 H Anion Gap 2 L BUN 29 H Creatinine 0.96 Estim Creat Clear Calc 43.17 Est GFR (MDRD) Af Amer 73 Est GFR (MDRD) Non-Af 60 BUN/Creatinine Ratio 30.2 H Glucose 85 Calcium 8.2 L Phosphorus Magnesium POC Glucose 165 H Microbiology 02/26/19 05:50 Sputum, Induced/Lukens Gram Stain - Final 02/26/19 05:50 Sputum, Induced/Lukens Respiratory Culture - Final Culture exhibits no growth. Medical Necessity - Tobacco Use Smoking Status: Former smoker Tobacco Use: Cigarettes Assessment/Plan All Active Problems (Last Reviewed 08/01/18 @ 15:50 by Jackson Peter DO) Lower respiratory infection (Acute) Acute respiratory failure with hypoxia and hypercapnia (Acute) Pneumonia (Acute) Sepsis (Acute) Pulmonary embolism (Acute) Cholelithiasis NOS (Acute) Acute respiratory failure with hypoxia and hypercapnia (Acute) COPD with acute exacerbation (Acute) Gram-negative pneumonia (Acute) Acute hypercapnic respiratory failure (Acute) NSTEMI (non-ST elevated myocardial infarction) (Acute) COPD exacerbation (Acute) RECOMMENDATIONS: 1. Continue IV Levaquin to complete a 10-day course. 2. Continue propofol and fentanyl for now, but discontinue prior to extubation 3. Hold tube feeds for extubation later today 4. Wean oxygen as tolerated to maintain saturations above 90% 5. Extubation once family is at the bedside 6. Continue bronchodilators. Transition to prednisone therapy. 7. Transition to Lovenox for possible cardiac cath tomorrow IMPRESSIONS: 1. Acute on chronic combined respiratory failure likely secondary to COPD with exacerbation Patient has been tolerating spontaneous breathing trial while on low sedation. Tube feeds continue to be held. Patient reportedly is a DNR Comfort Care arrest without intubation, but this has not been confirmed with the family. If this is true, anticipate extubation once family at the bedside. Anticipate aggressive measures initially unless patient shows decompensation. Today would complete antibiotic course for pseudomonal pneumonia 2. Septic shock secondary to pseudomonal pneumonia Continue current supportive measures with bronchodilators, steroids and antimicrobials. Patient has been weaned off of Levophed therapy. Patient should complete Levaquin course over the weekend. 3. History of venous thromboembolic disease The patient does have a history of pulmonary emboli. Patient has been transitioned to Lovenox for possible cardiac intervention early next week. 4. Troponin elevation/NSTEMI/Acute on Chronic Systolic Heart Failure/Pulmonary Hypertension Although initially felt to be secondary to demand ischemia, a review of the patient's repeat echocardiogram revealed worsening in her LV ejection fraction. Therefore, cardiology was consulted and is currently following to assist with medical management. The patient may require heart catheterization, pending improvement in clinical stability. Will defer management and further work-up to cardiology. 5. Chronic systolic heart failure/pulmonary hypertension Cardiology is currently following to assist with medical management. We will continue to dose diuretic therapy on a as needed basis as blood pressure allows. 6. New onset seizure activity The patient apparently had a witnessed tonic-clonic seizure on 02/23. However, it resolved without intervention and has not recurred. No further seizure activity has been witnessed. EEG was completed, with read suggesting generalized slowing and possible hepatic encephalopathy. Neurology tele-consult was completed. 7. Tobacco dependency, currently in remission/hypertension/hyperlipidemia/peripheral vascular disease Complicates care, management, recovery and prognosis. Physical therapy to work with the patient. TIME: 35 minutes of critical care time, independent of procedures, was spent addressing the patient's acute on chronic combined respiratory failure, COPD with exacerbation, severe sepsis secondary to community-acquired pneumonia, history of venous thromboembolic disease, history of systolic heart failure, pulmonary hypertension, NSTEMI, review of all data and collaboration with care team. (5:55 AM to 6:50 AM) Code Visit 9xxxx: [id number] Critical care first hour
--- NOTE | 2019-03-01 07:36 | PN_ITS ---
Patient Problems: Active and Suspected Problems (Last Reviewed 08/01/18 @ 15:50 by Jackson Peter DO) Acute respiratory failure with hypoxia and hypercapnia (Acute) Pneumonia (Acute) Sepsis (Acute) Subjective: Patient was seen and examined. She has been extubated, on 4L oxygen. She however failed her swallowing evaluation. Objective: Physical exam: General: Extubated, not pale, not jaundice, on 4L oxygen HEENT: Atraumatic, PERRLA, EOMI, Normocephalic Oral: Dry Mucosa Neck: Supple, No JVD, Negative Carotid Bruits Lungs: - -breath sounds decreased bibasally, no wheezes or crackles. Intubated. Cardiovascular: Regular rate, Regular Rhythm, Normal S1, Normal S2, No murmurs Abdomen: Bowel Sounds Present, Soft, Non Tender Extremities: No clubbing, No cyanosis, No edema, Capillary Refill Less than 3 Seconds Skin: No rashes, No breakdown Musculoskeletal: No Tenderness to Palpation of Joints or Extremities Lymphatic: No Cervical, Supraclavicular, or Inguinal Adenopathy Neurological: Cranial nerves II-XII grossly intact, Neuro grossly intact, Motor Exam 5/5 strength throughout Psych/Mental Status: restless Vitals/I&O's: Vital Signs Temp Pulse Resp BP Pulse Ox 99.4 F H 84 14 130/66 H 99 03/01/19 06:00 03/01/19 06:00 03/01/19 06:00 03/01/19 06:00 03/01/19 06:00 Oxygen Flow Rate (L/min) 35 Oxygen Delivery Method Mechanical Ventilator Weight: 68.5 kg Body Mass Index (BMI) 26.4 Intake and Output for Last 24 Hours 02/27/19 02/28/19 03/01/19 23:59 23:59 23:59 Intake Total 1878.07 / 2345.87 2178.94 / 2193.65 114.88 / 114.88 Output Total 1350 / 1700 2110 / 2110 200 / 200 Balance 528.07 / 645.87 68.94 / 83.65 -85.12 / -85.12 Microbiology Past 72 Hours 02/26/19 05:50 Sputum, Induced/Lukens Gram Stain - Final 02/26/19 05:50 Sputum, Induced/Lukens Respiratory Culture - Final Culture exhibits no growth. 02/24/19 10:40 Blood Culture (Wb) - Line Draw Blood Culture - Preliminary No growth in 48 hours. 02/24/19 12:30 Blood Culture (Wb) - Arm Right Blood Culture - Preliminary No growth in 48 hours. 02/24/19 12:20 Urine Catheter - Burk Urine Culture - Final Culture exhibits no growth. Laboratory Results 02/28/19 00:32: POC Glucose 125 H 02/28/19 09:33: Specimen Type ART, Sample Site L Radial, pH 7.53 H, Bicarbonate Actual 40.3 H, POC Total CO2 42, Base Excess 18 H, O2 Saturation 93 L, O2 % 35, ABG pCO2 47.9 H, ABG pO2 62 L, Angelo Test POS, O2 Delivery Device Vent, Vent Mode CPAP PS, POC PEEP 5, POC Pressure Suppt 5, Blood Gas Notified Time 930 02/28/19 11:20: POC Glucose 114 H 02/28/19 17:08: POC Glucose 115 H 02/28/19 23:37: POC Glucose 165 H 03/01/19 04:20: WBC 12.7 H, RBC 3.31 L, Hgb 9.1 L, Hct 30.2 L, MCV 91.2, MCH 27.5, MCHC 30.1 L, RDW Std Deviation 54.6 H, RDW Coeff of Abhinav 18.3 H, Plt Count 269, MPV 10.9, Immature Gran % (Auto) 1.500 H, Neut % (Auto) 66.0, Lymph % (Auto) 23.7, [place] % (Auto) 7.6, Eos % (Auto) 1.1, Baso % (Auto) 0.1, Absolute Neuts (auto) 8.4 H, Absolute Lymphs (auto) 3.01, Nucleated RBC % 0.2 03/01/19 04:20: Sodium 142, Potassium 3.6, Chloride 102, Carbon Dioxide 38.0 H, Anion Gap 2 L, BUN 29 H, Creatinine 0.96, Estim Creat Clear Calc 43.17, Est GFR (MDRD) Af Amer 73, Est GFR (MDRD) Non-Af 60, BUN/Creatinine Ratio 30.2 H, Glucose 85, Calcium 8.2 L Current Medications Acetaminophen (Tylenol Liquid) 650 mg GT Q6H PRN PRN PRN Reason: Pain 1-3/10 or Fever >100.7 Last Admin: 02/23/19 17:56 Dose: 650 mg Documented by: Aspirin (Aspirin, Baby) 81 mg GT DAILY@0800 [facility] Last Admin: 02/28/19 08:31 Dose: 81 mg Documented by: Atorvastatin Calcium (Lipitor) 80 mg GT QHS [facility] Last Admin: 02/28/19 21:13 Dose: 80 mg Documented by: Chlorhexidine Gluconate () 1 each TOPICAL DAILY [facility] Last Admin: 02/28/19 10:01 Dose: 1 each Documented by: Chlorhexidine Gluconate () 15 ml PO BID [facility] Last Admin: 02/28/19 21:18 Dose: 15 ml Documented by: Clopidogrel Bisulfate (Plavix) 75 mg GT DAILY [facility] Last Admin: 02/28/19 08:30 Dose: 75 mg Documented by: Famotidine (Pepcid) 20 mg GT DAILY [facility] Last Admin: 02/28/19 08:31 Dose: 20 mg Documented by: Fenofibrate (Tricor) 145 mg GT DAILY [facility] Last Admin: 02/28/19 08:31 Dose: 145 mg Documented by: Glucagon () 1 mg IM .X1 PRN PRN Reason: Hypoglycemia Sodium Chloride () 250 mls @ 15 mls/hr IV .[id number] PRN PRN Reason: Saline Flush Last Infusion: 02/28/19 10:14 Dose: 0 mls/hr Documented by: Sodium Chloride () 250 mls @ 15 mls/hr IV .[id number] PRN PRN Reason: Additional IVPB Infusion Dextrose (Dextrose 10%-Water) 250 mls @ 999 mls/hr IV .Q16M PRN; Protocol PRN Reason: HYPOGLYCEMIA Enteral Nutritional Formula (Vital Af 1.2 [place] Liquid) 1,000 mls @ 55 mls/hr GT .[id number] [facility] Last Admin: 02/28/19 21:11 Dose: Not Given Documented by: Propofol (Diprivan) 1,000 mg in 100 mls @ 4.11 mls/hr CONT INF .Q12H [facility]; Protocol Last Titration: 03/01/19 06:00 Dose: 15 mcg/kg/min, 6.2 mls/hr Documented by: Levofloxacin (Levaquin Iv) 750 mg in 150 mls @ 100 mls/hr IV Q48 [facility] Stop: 03/02/19 10:01 Last Infusion: 02/28/19 11:31 Dose: Infused Documented by: Fentanyl () 100 mls @ 5 mls/hr IV UD [facility]; Protocol Last Titration: 03/01/19 06:00 Dose: 100 mcg/hr, 10 mls/hr Documented by: Insulin Human Lispro (Humalog Kwikpen (Bkc)) 0 unit SC Q6 [facility]; Protocol Last Admin: 03/01/19 05:08 Dose: Not Given Documented by: Ipratropium Loman (Atrovent) 0.5 mg INHALATION Q4H.RT NAIF Last Admin: 03/01/19 03:05 Dose: 0.5 mg Documented by: Levetiracetam (Keppra Oral Solution) 500 mg GT BID [facility] Last Admin: 02/28/19 21:13 Dose: 500 mg Documented by: Lorazepam (Ativan) 2 mg IV Q4H PRN PRN PRN Reason: SEIZURES Last Admin: 02/23/19 23:38 Dose: 2 mg Documented by: Nicotine (Nicoderm Cq (Pbkc)) 21 mg TRANSDERM. DAILY [facility] Last Admin: 02/28/19 08:39 Dose: 21 mg Documented by: Nitroglycerin (Nitrostat) 0.4 mg SUBLINGUAL Q5M PRN PRN Reason: CHEST Polyethylene Glycol (Miralax) 17 gm GT DAILY PRN PRN Reason: Constipation Last Admin: 02/28/19 15:36 Dose: 17 gm Documented by: Prednisone () 40 mg PO DAILY@0800 [facility] Last Admin: 02/28/19 08:32 Dose: 40 mg Documented by: Quetiapine Fumarate (Seroquel) 100 mg GT BID [facility] Last Admin: 02/28/19 21:13 Dose: 100 mg Documented by: Sodium Chloride () 10 - 40 ml IV UD PRN PRN Reason: SALINE FLUSH Last Admin: 02/27/19 09:45 Dose: 10 ml Documented by: STROKE Vital Signs/Narrative: Vital Signs Temp Pulse Resp BP Pulse Ox 03/01/19 06:00 99.4 F H 84 14 130/66 H 99 03/01/19 05:00 79 12 131/61 H 96 03/01/19 04:40 80 16 99 03/01/19 04:00 99.3 F H 86 18 147/77 H 99 Medical Necessity - Tobacco Use Smoking Status: Former smoker Tobacco Use: Cigarettes Assessment/Plan All Active Problems (Last Reviewed 08/01/18 @ 15:50 by Jackson Peter DO) Lower respiratory infection (Acute) Acute respiratory failure with hypoxia and hypercapnia (Acute) Pneumonia (Acute) Sepsis (Acute) Pulmonary embolism (Acute) Cholelithiasis NOS (Acute) Acute respiratory failure with hypoxia and hypercapnia (Acute) COPD with acute exacerbation (Acute) Gram-negative pneumonia (Acute) Acute hypercapnic respiratory failure (Acute) NSTEMI (non-ST elevated myocardial infarction) (Acute) COPD exacerbation (Acute) 73 y/o female with past medical history of chronic severe interstitial fibrosis admitted with a complaint of worsening shortness of breath Day 10 of hospital stay. 1. Acute on chronic hypoxic respiratory failure secondary to acute COPD exacerbation/pseudomonas pneumonia Extubated on 03/01/19, on 4 L of oxygen, will continue to monitor 2. Dysphagia likely related to prolonged intubation, failed swallow eval Speech therapy consulted 3. Seizure likely medication-related/febrile-related/possible serotonin syndrome Off Precedex, seroquel, bupropion and paroxetine EEG ordered shows generalized slowness with triphasic waves, Keppra IV 3. Severe sepsis secondary to pseudomonas pneumonia, still febrile Initial blood cultures, influenza screen, respiratory panel, urine streptococcal and Legionella antigen negative Repeat blood cultures, urine cultures and sputum cultures are negative Continue on Levaquin IV, aiming for total 10 day course 4. Acute systolic heart failure, EF 20% Lasix was on hold on account of hemodynamic instability 5. NSTEMI, medically being managed now History of CAD s/p stents Continue on aspirin, plavix, statin, Imdur Cardiac cath on hold, cardiology following 6. Acute COPD exacerbation, improving, Received a dose of po prednisone today Will need to be converted to IV steroid if persistently NPO Management as in #1 7. Hypertension, BP meds on hold Will continue to monitor 8. History of DVT, continue on eliquis 9. Nicotine dependence, on replacement. 10. DVT prophylaxis- on eliquis 11. Code status: full code Code Visit Inpatient E&M: 51551 Subs Hosp L2
[2019-03-01] MEDS: Aspirin 81 MG TAB.CHEW GT (08:26)
[2019-03-01] MEDS: predniSONE 20 MG Tablet 40 MG PO (08:26)
[2019-03-01] MEDS: QUEtiapine 100 MG Tablet GT (08:26)
[2019-03-01] MEDS: Famotidine 20 MG Tablet GT (08:26)
[2019-03-01] MEDS: Clopidogrel Bisulfate 75 MG Tablet GT (08:26)
[2019-03-01] MEDS: Fenofibrate 145 MG Tablet GT (08:26)
[2019-03-01] MEDS: levETIRAcetam Oral Solution 500 MG/5 ML GT (08:27)
[2019-03-01] MEDS: APIXABAN 5 MG TABLET PO (08:45)
--- NOTE | 2019-03-01 10:21 | PN.CARD_ITS ---
Subjectve: Patient seen and examined this morning, and discussed options with family members as well as the patient. Although the patient is moderately sedated, she is awake, and answers questions by nodding her head or squeezing my hand. She denies any chest pain. Telemetry is negative. Tentative plan is for extubation this morning followed by designation of DNR/CCA should the patient develop recurrent respiratory distress. No plans for catheterization tomorrow as of this writing. Objective: Vital Signs Temp Pulse Resp BP Pulse Ox 99.4 F H 92 22 H 141/73 H 96 03/01/19 10:00 03/01/19 10:00 03/01/19 10:00 03/01/19 10:00 03/01/19 10:00 Oxygen Flow Rate (L/min) 4 Oxygen Delivery Method Nasal Cannula Weight: 151 lb 0.266 oz Body Mass Index (BMI) 26.4 Intake and Output for Last 24 Hours 02/27/19 02/28/19 03/01/19 23:59 23:59 23:59 Intake Total 1878.07 / 2345.87 2178.94 / 2193.65 167.53 / 167.53 Output Total 1350 / 1700 2110 / 2110 200 / 200 Balance 528.07 / 645.87 68.94 / 83.65 -32.47 / -32.47 General: Awake, Alert, Oriented x 3 HEENT: PERRL, EOMI, Sclera Non Icteric Neck: Supple, Good ROM, No Lymph Node Enlargement Lungs: Clear to auscultation Cardiovascular: Regular Rhythm, Normal S1, Normal S2, No Murmurs, No Rubs, No Gallops Vascular: No Carotid Bruits, Normal Femoral Pulses, Normal Radial Pulses, Normal Dorsalis Pedal Pulse, Normal Posterior Tibial Pulses Abdomen: Bowel Sounds Present, Soft, Non Tender, No HSM, No Organomegaly Extremities: No Cyanosis, No Clubbing, No edema Neurological: No Focal Motor or Sensory Deficit 03/01/19 04:20: WBC 12.7 H, RBC 3.31 L, Hgb 9.1 L, Hct 30.2 L, MCV 91.2, MCH 27.5, MCHC 30.1 L, Plt Count 269, MPV 10.9, Immature Gran % (Auto) 1.500 H, Neut % (Auto) 66.0, Lymph % (Auto) 23.7, [place] % (Auto) 7.6, Eos % (Auto) 1.1, Baso % (Auto) 0.1, Absolute Neuts (auto) 8.4 H, Nucleated RBC % 0.2 03/01/19 04:20: Sodium 142, Potassium 3.6, Chloride 102, Carbon Dioxide 38.0 H, Anion Gap 2 L, BUN 29 H, Creatinine 0.96, Est GFR (MDRD) Af Amer 73, Est GFR (MDRD) Non-Af 60, BUN/Creatinine Ratio 30.2 H, Glucose 85, Calcium 8.2 L Rhythm: EKG: ECHO: Stress Test: Cardiac Cath: PCI: CT Surgery: Holter monitor: EPS: PPM: CXR: Chest CT Scan: Medical Necessity - Tobacco Use Smoking Status: Former smoker Tobacco Use: Cigarettes Assessment/Plan 1. Coronary artery disease: Patient has known coronary disease and underwent re peat diagnostic catheterization in March [address] Rodrigues. At that time it revealed that she had widely patent stents of her proximal right coronary artery, and ostial 85% diagonal stenosis, possible significant proximal LAD stenosis upstream from the diagonal branch, an 85% ostial stenosis of a moderate to large sized obtuse marginal branch which feeds the lateral wall. The patient presents with bilateral pneumonia requiring intubation for the past 8 days. During that time her EKG is evolved into anterior T wave inversion, with a peak troponin of 0.919 although she has had no further troponin since that time. The patient has had several attempts to wean her off the ventilator which have thus far been unsuccessful suggesting that she may have an ischemic component to challenges with extubation. The tentative plan this morning is for the patient to be extubated with the understanding that if she is unsuccessful she is not to be reintubated. That has not been confirmed as of this writing. Superimposed on this the patient has known mild to moderate LV dysfunction with an EF around 50% confirmed by catheterization and echocardiogram on this admission. She has evidence of inferior hypokinesis. If the plan is for extubation this morning, would recommend restarting her Eliquis, and discontinuing her subcu Lovenox. Should the patient require repeat catheterization she will need to hold her Eliquis for at least 48 hours. In the meantime, I would recommend restarting her antihypertensive medication slowly starting with Lopressor 25 mg p.o. twice daily, Cozaar, 25 mg p.o. daily as Imdur is unable to be crushed on an NG tube, and restarting amlodipine should she do okay off the ventilator. Discussed with Dr. Breaux and family members. Tentative plan is for extubation this morning with no plans for reintubation should this be unsuccessful. 2. Hyperlipidemia: Continue Lipitor therapy. 3. Thank you very much for the opportunity to participate in the cardiac care of your patient. All questions answered to the family members. Code Visit Inpatient E&M: 96681 Subs Hosp L3
[2019-03-01] MEDS: Haloperidol Lactate 5 MG/ML Vial 3 MG IV ×3 (11:25→23:16)
--- NOTE | 2019-03-01 11:41 | NURSING ---
Pt agitated, attempting to get out of bed. Refusing care at this time. A&O x2 at this time. Pt states to [employer] I'm going to slap you in the face! Dr. Breaux made aware. Haldol 3mg given per orders. Family at bedside.
[2019-03-01] MEDS: 0.9% Saline Lock 10 ML Syringe IV ×3 (18:21→23:16)
[2019-03-01] MEDS: fentaNYL 100 MCG/2 ML Ampul 50 MCG IV (20:06)
--- NOTE | 2019-03-01 20:30 | NURSING ---
Pt cleaned of LG soft nonformed stool incontinence, new Purewick cath placed. Mepilex drsg replaced.
--- NOTE | 2019-03-01 21:20 | CPS ---
pt asked to have the mask off after 5 min of aero tx-encouraged her to keep on for a couple more minutes-pt wanted tx off so mask was removed 8 min into aero tx
--- NOTE | 2019-03-01 23:31 | NURSING ---
Pt cleaned of mod amt soft stool, Purewick cath replaced,Mepilex clean.
[2019-03-02] VITALS (22 sets, daily range): BP systolic 115–148; BP diastolic 55–82; PULSE 81–104; RESP 17–34; TEMP 36.6–37.2; O2SAT 90–100
[2019-03-02] MEDS: fentaNYL 100 MCG/2 ML Ampul 50 MCG IV ×2 (02:03→04:13)
[2019-03-02] MEDS: 0.9% Saline Lock 10 ML Syringe IV ×4 (02:03→21:10)
[2019-03-02 04:32] LABS: Absolute Lymphocyte Count 2.22 X10^3/uL (0.83-4.51); Absolute Neutrophil Count 10.1 X10^3/uL (2.0-7.7); Basophil# 0.01 X10^3/uL; Basophil% 0.1 % (0-1); Eosinophil# 0.17 X10^3/uL; Eosinophils% 1.3 % (0-5); Hematocrit 33.3 % (37-47); Hemoglobin 10.1 g/dL (12.0-15.0); Lymphocyte # 2.22 X10^3/ul (4.0); Lymphocyte % 16.4 % (19-41); Mean Corp Hgb Conc 30.3 g/dL (32-36); Mean Corpuscular Hgb 27.2 pg (27.0-32.0); Mean Corpuscular Volume 89.5 fL (81-99); Mean Platelet Vol. 10.7 fl (6.2-12.0); Monocyte# 0.92 X10^3/uL; Monocyte% 6.8 % (0-10); NRBC Flagged by Analyzer 0 % (0-5); Neutrophil # 10.05 X10^3/uL (2.7-7.7); Neutrophil % 74.1 % (47-70); Platelet Count 283 K/mm3 (150-450); RBC Distribution Width CV 18.2 % (11.6-14.6); RBC Distribution Width SD 55.5 fl (35.1-43.9); Red Blood Count 3.72 M/mm3 (4.2-5.4); White Blood Count 13.6 K/mm3 (4.4-11.0)
[2019-03-02 04:48] LABS: BUN 24 mg/dL (7-18); Chloride 108 mmol/L (98-107); Creatinine, Serum 0.83 mg/dL (0.55-1.02); EST Glomerular Filtration Rate 72 mL/min (>60); Est Glom Filt Rate - Afr Amer 87 mL/min (>60); Estimated Creatinine Clearance 49.94 ml/min; Glucose 82 mg/dL (74-106); Phosphorus 2.8 mg/dL (2.5-4.9); Sodium Level 144 mmol/L (136-145)
--- NOTE | 2019-03-02 06:33 | PN_ITS ---
Subjective: The patient was seen and examined at the bedside this morning. Events from the last 24 hours have been reviewed. The patient is currently afebrile, hemodynamically stable and maintaining appropriate oxygen saturations on 2 L/min via nasal cannula. The patient is angry this morning given that she is currently n.p.o., as she refused to allow for physical and speech therapy evaluations yesterday. Potassium is low at 3.0. Objective: The patient's most recent lab work, culture data and imaging studies have all been personally reviewed. CT chest without contrast did reveal bilateral lower lobe airspace disease with associated atelectasis and dependent pleural effusions. The patient does have significant upper lobe predominant emphysematous changes. Unfortunately, evaluation of the patient's lower lobes for interstitial lung disease was obscured by the aforementioned airspace opacities. Surface echocardiogram revealed moderately severe segmental systolic dysfunction with an ejection fraction of 20%. Pulmonary artery systolic pressure was estimated to be 52 mmHg. Strep and urine Legionella antigens were negative. Respiratory viral panel was negative. Sputum culture was positive for pseudomonas aeruginosa, which was pansensitive. General: Alert, No apparent distress HEENT: Atraumatic, PERRLA, Normocephalic Oral: No Gingival or Mucosal Lesions/ Ulcerations Neck: Supple, No Nodes, Trachea Midline Lungs: No rhonchi, No wheeze, No rales, Diminished Cardiovascular: Regular rate, Regular Rhythm, Normal S1, Normal S2, No murmurs Abdomen: Bowel Sounds Present, Soft, Non Tender Extremities: No cyanosis, No edema, Clubbing Skin: No breakdown Musculoskeletal: No Tenderness to Palpation of Joints or Extremities Lymphatic: No Cervical, Supraclavicular, or Inguinal Adenopathy Neurological: Neuro grossly intact Psych/Mental Status: Agitated Vital Signs Temp Pulse Resp BP Pulse Ox 98.9 F 85 29 H 120/55 L 94 03/02/19 04:00 03/02/19 06:00 03/02/19 06:00 03/02/19 06:00 03/02/19 06:00 Oxygen Flow Rate (L/min) 2 Oxygen Delivery Method Nasal Cannula Weight: 147 lb 0.773 oz Body Mass Index (BMI) 26.4 Intake and Output for Last 24 Hours 02/28/19 03/01/19 03/02/19 23:59 23:59 23:59 Intake Total 2178.94 / 2193.65 272.53 / 272.53 Output Total 2110 / 2110 1650 / 1650 300 / 300 Balance 68.94 / 83.65 -1377.47 / -1377.47 -300 / -300 Labs (Last 48 Hours) 02/28/19 02/28/19 02/28/19 00:32 09:33 11:20 WBC RBC Hgb Hct MCV MCH MCHC RDW Std Deviation RDW Coeff of Abhinav Plt Count MPV Immature Gran % (Auto) Neut % (Auto) Lymph % (Auto) Wallace % (Auto) Eos % (Auto) Baso % (Auto) Absolute Neuts (auto) Absolute Lymphs (auto) Nucleated RBC % Specimen Type ART Sample Site L Radial pH 7.53 H Bicarbonate Actual 40.3 H POC Total CO2 42 Base Excess 18 H O2 Saturation 93 L O2 % 35 ABG pCO2 47.9 H ABG pO2 62 L Angelo Test POS O2 Delivery Device Vent Vent Mode CPAP PS POC PEEP 5 POC Pressure Suppt 5 Blood Gas Notified Time 930 Sodium Potassium Chloride Carbon Dioxide Anion Gap BUN Creatinine Estim Creat Clear Calc Est GFR (MDRD) Af Amer Est GFR (MDRD) Non-Af BUN/Creatinine Ratio Glucose Calcium Phosphorus Albumin POC Glucose 125 H 114 H 02/28/19 02/28/19 03/01/19 17:08 23:37 04:20 WBC 12.7 H RBC 3.31 L Hgb 9.1 L Hct 30.2 L MCV 91.2 MCH 27.5 MCHC 30.1 L RDW Std Deviation 54.6 H RDW Coeff of Abhinav 18.3 H Plt Count 269 MPV 10.9 Immature Gran % (Auto) 1.500 H Neut % (Auto) 66.0 Lymph % (Auto) 23.7 Wallace % (Auto) 7.6 Eos % (Auto) 1.1 Baso % (Auto) 0.1 Absolute Neuts (auto) 8.4 H Absolute Lymphs (auto) 3.01 Nucleated RBC % 0.2 Specimen Type Sample Site pH Bicarbonate Actual POC Total CO2 Base Excess O2 Saturation O2 % ABG pCO2 ABG pO2 Angelo Test O2 Delivery Device Vent Mode POC PEEP POC Pressure Suppt Blood Gas Notified Time Sodium Potassium Chloride Carbon Dioxide Anion Gap BUN Creatinine Estim Creat Clear Calc Est GFR (MDRD) Af Amer Est GFR (MDRD) Non-Af BUN/Creatinine Ratio Glucose Calcium Phosphorus Albumin POC Glucose 115 H 165 H 03/01/19 03/02/19 03/02/19 04:20 04:15 04:15 WBC 13.6 H RBC 3.72 L Hgb 10.1 L Hct 33.3 L MCV 89.5 MCH 27.2 MCHC 30.3 L RDW Std Deviation 55.5 H RDW Coeff of Abhinav 18.2 H Plt Count 283 MPV 10.7 Immature Gran % (Auto) 1.300 H Neut % (Auto) 74.1 H Lymph % (Auto) 16.4 L Wallace % (Auto) 6.8 Eos % (Auto) 1.3 Baso % (Auto) 0.1 Absolute Neuts (auto) 10.1 H Absolute Lymphs (auto) 2.22 Nucleated RBC % 0 Specimen Type Sample Site pH Bicarbonate Actual POC Total CO2 Base Excess O2 Saturation O2 % ABG pCO2 ABG pO2 Angelo Test O2 Delivery Device Vent Mode POC PEEP POC Pressure Suppt Blood Gas Notified Time Sodium 142 144 Potassium 3.6 3.0 L Chloride 102 108 H Carbon Dioxide 38.0 H 30.0 Anion Gap 2 L BUN 29 H 24 H Creatinine 0.96 0.83 Estim Creat Clear Calc 43.17 49.94 Est GFR (MDRD) Af Amer 73 87 Est GFR (MDRD) Non-Af 60 72 BUN/Creatinine Ratio 30.2 H 29.0 H Glucose 85 82 Calcium 8.2 L 8.0 L Phosphorus 2.8 Albumin 3.0 L POC Glucose Microbiology 02/24/19 12:30 Blood Culture (Wb) - Arm Right Blood Culture - Final No growth in 5 days. 02/24/19 10:40 Blood Culture (Wb) - Line Draw Blood Culture - Final No growth in 5 days. 02/26/19 05:50 Sputum, Induced/Lukens Gram Stain - Final 02/26/19 05:50 Sputum, Induced/Lukens Respiratory Culture - Final Culture exhibits no growth. Clinical Impression(s) from Imaging Studies Chest X-Ray 02/19/19 06:05 IMPRESSION: Bilateral lower airspace disease superimposed upon moderately severe pulmonary fibrosis. Differential considerations include bronchitis versus pneumonia. Electronically Signed: Marivel Smart MD at 6:39 EST , Service support , Chest X-Ray 02/20/19 06:35 IMPRESSION: Stable bilateral interstitial pulmonary infiltrates with pulmonary scarring and likely pulmonary fibrosis; there may be acute infiltrates or pulmonary venous congestion in addition to the chronic interstitial fibrotic changes and/or progression of pulmonary fibrosis with no change when compared to most recent chest radiograph Upper lobe COPD changes Ill-defined 8 mm density right upper lobe scar versus pulmonary lesion CT chest follow-up recommended Electronically Signed: Mohsen Zhong at 7:15 EST Tel , Service support , KUB X-Ray 02/20/19 07:17 IMPRESSION: Appropriate positioning of enteric tube with the tip probably in the stomach. Electronically Signed: Marivel Smart MD at 9:42 EST , Service support , Chest X-Ray 02/20/19 07:40 IMPRESSION: 1. Appropriate positioning of endotracheal tube. 2. Heterogeneous bilateral basilar interstitial and air space consolidations may represent pneumonia. Electronically Signed: Marivel Smart MD at 8:59 EST , Service support , Chest CT 02/20/19 09:52 IMPRESSION: 1. Bilateral lower lobe airspace consolidations, atelectasis and pleural effusions likely secondary to pneumonia. 2. Emphysematous changes and subcortical pulmonary fibrosis. 3. Nonspecific pathologic mediastinal lymphadenopathy. Electronically Signed: Marivel Smart MD at 11:06 EST , Service support , Brain CT 02/25/19 09:08 IMPRESSION: No acute intracranial process. Electronically Signed: Mac Hardin MD at 13:44 EST Tel , Service support , Chest CT 02/25/19 09:09 IMPRESSION: 1. Bilateral lower lobes infiltrates worse on the left side could be due to pneumonia. 2. Small bilateral pleural effusions. 3. Prominent mediastinal nodes likely reactive. Electronically Signed: Mac Hardin MD at 13:49 EST Tel , Service support , Medical Necessity - Tobacco Use Smoking Status: Former smoker Tobacco Use: Cigarettes Assessment/Plan All Active Problems (Last Updated 03/02/19 @ 11:33 by Mercy Dupree) Lower respiratory infection (Acute) Acute respiratory failure with hypoxia and hypercapnia (Acute) Pneumonia (Acute) Sepsis (Acute) Pulmonary embolism (Acute) Cholelithiasis NOS (Acute) Acute respiratory failure with hypoxia and hypercapnia (Acute) COPD with acute exacerbation (Acute) Gram-negative pneumonia (Acute) Acute hypercapnic respiratory failure (Acute) NSTEMI (non-ST elevated myocardial infarction) (Acute) COPD exacerbation (Acute) RECOMMENDATIONS: 1. Continue IV Levaquin to complete full treatment course. 2. Potassium repletion as ordered. 3. Reevaluation by speech therapy prior to advancement of diet. 4. Continue Eliquis. 5. Continue Eliquis and steroids. 6. Wean supplemental oxygen as tolerated. 7. Encourage incentive spirometer use and mobilize patient as tolerated. 8. The patient is medically stable for transfer out of the intensive care unit. IMPRESSIONS: 1. Acute on chronic combined respiratory failure likely secondary to COPD with exacerbation There is clinical concern for underlying community acquired pneumonia as precipitating etiology for the patient's exacerbation. However, it does appear that the patient has some baseline interstitial fibrosis, which was present on prior chest imaging, and appears to have progressed in the interim. Despite the use of noninvasive positive pressure ventilatory support, the patient continued to decompensate from a clinical perspective and did require intubation on the morning of February 20. The patient's sputum culture turned positive for pseudomonas aeruginosa. Following aggressive medical intervention, the patient was able to be successfully extubated. She is currently maintaining appropriate oxygen saturations on minimal supplemental O2. We will plan to continue to wean her oxygen as tolerated. Dietary advancement can be entertained once speech therapy has completed evaluation. Continue bronchodilators, antibiotics and steroids. 2. Septic shock secondary to pseudomonal pneumonia Continue current supportive measures with bronchodilators, steroids and antimicrobials. The patient remains hemodynamically stable. 3. History of venous thromboembolic disease The patient does have a history of pulmonary emboli, for which she will be continued on Eliquis per outpatient regimen. 4. Troponin elevation/NSTEMI/Acute on Chronic Systolic Heart Failure/Pulmonary Hypertension Although initially felt to be secondary to demand ischemia, a review of the patient's repeat echocardiogram revealed worsening in her LV ejection fraction. Therefore, cardiology was consulted and is currently following to assist with medical management. The patient may require heart catheterization, pending improvement in clinical stability. Will defer management and further work-up to cardiology. 5. Chronic systolic heart failure/pulmonary hypertension Cardiology is currently following to assist with medical management. 6. New onset seizure activity The patient apparently had a witnessed tonic-clonic seizure on 02/23. However, it resolved without intervention. No further seizure activity has been witnessed. 7. Tobacco dependency, currently in remission/hypertension/hyperlipidemia/peripheral vascular disease Complicates care, management, recovery and prognosis. Physical therapy to work with the patient. This note was generated with [employer] dictation software. It may contain incorrect words, spelling, and punctuation that were not noted in checking the note before signing. Code Visit Inpatient E&M: 71186 Subs Hosp L3
[2019-03-02] MEDS: Ipratropium 0.5 MG/2.5 ML SOLUTION INHALATION ×5 (06:35→22:38)
--- NOTE | 2019-03-02 07:28 | PN_ITS ---
Patient Problems: Active and Suspected Problems (Last Reviewed 08/01/18 @ 15:50 by Jackson Peter DO) Acute respiratory failure with hypoxia and hypercapnia (Acute) Pneumonia (Acute) Sepsis (Acute) Reason for Visit: Patient is a 73-year-old lady with history of severe interstitial fibrosis admitted with progressive shortness of breath patient was intubated due to worsening respiratory status weaned off the vent on 03/01/2019. Patient is scheduled to undergo speech and swallow eval prior to initiation of oral diet Subjective: GENERAL: In no apparent distress HEENT: Atraumatic; EYES; Anicteric, Normal Conjunctiva NECK; supple, normal thyroid, RESPIRATORY: Diminished to auscultation CARDIOVASCULAR: Regular S1 S2, GI: soft, normoactive bowel sounds, : No Renal angle tenderness; EXTREMITIES: No edema, no clubbing, MUSCULOSKELETAL: no muscle waisting NEURO: Awake; no lateralizing signs. SKIN: No Rash PSYCH; Flat affect Vitals/I&O's: Vital Signs Temp Pulse Resp BP Pulse Ox 98.9 F 85 29 H 120/55 L 94 03/02/19 04:00 03/02/19 06:00 03/02/19 06:00 03/02/19 06:00 03/02/19 06:00 Oxygen Flow Rate (L/min) 2 Oxygen Delivery Method Nasal Cannula Weight: 66.7 kg Body Mass Index (BMI) 26.4 Intake and Output for Last 24 Hours 02/28/19 03/01/19 03/02/19 23:59 23:59 23:59 Intake Total 2178.94 / 2193.65 272.53 / 272.53 Output Total 2110 / 2110 1650 / 1650 300 / 300 Balance 68.94 / 83.65 -1377.47 / -1377.47 -300 / -300 Microbiology Past 72 Hours 02/24/19 12:30 Blood Culture (Wb) - Arm Right Blood Culture - Final No growth in 5 days. 02/24/19 10:40 Blood Culture (Wb) - Line Draw Blood Culture - Final No growth in 5 days. 02/26/19 05:50 Sputum, Induced/Lukens Gram Stain - Final 02/26/19 05:50 Sputum, Induced/Lukens Respiratory Culture - Final Culture exhibits no growth. Laboratory Results 03/02/19 04:15: WBC 13.6 H, RBC 3.72 L, Hgb 10.1 L, Hct 33.3 L, MCV 89.5, MCH 27.2, MCHC 30.3 L, RDW Std Deviation 55.5 H, RDW Coeff of Abhinav 18.2 H, Plt Count 283, MPV 10.7, Immature Gran % (Auto) 1.300 H, Neut % (Auto) 74.1 H, Lymph % (Auto) 16.4 L, [place] % (Auto) 6.8, Eos % (Auto) 1.3, Baso % (Auto) 0.1, Absolute Neuts (auto) 10.1 H, Absolute Lymphs (auto) 2.22, Nucleated RBC % 0 03/02/19 04:15: Sodium 144, Potassium 3.0 L, Chloride 108 H, Carbon Dioxide 30.0, BUN 24 H, Creatinine 0.83, Estim Creat Clear Calc 49.94, Est GFR (MDRD) Af Amer 87, Est GFR (MDRD) Non-Af 72, BUN/Creatinine Ratio 29.0 H, Glucose 82, Calcium 8.0 L, Phosphorus 2.8, Albumin 3.0 L Current Medications Acetaminophen (Tylenol Liquid) 650 mg GT Q6H PRN PRN PRN Reason: Pain 1-3/10 or Fever >100.7 Last Admin: 02/23/19 17:56 Dose: 650 mg Documented by: Apixaban (Eliquis) 5 mg PO BID [facility] Last Admin: 03/01/19 19:55 Dose: Not Given Documented by: Aspirin (Aspirin, Baby) 81 mg GT DAILY@0800 [facility] Last Admin: 03/01/19 08:26 Dose: 81 mg Documented by: Atorvastatin Calcium (Lipitor) 80 mg GT QHS [facility] Last Admin: 03/01/19 19:55 Dose: Not Given Documented by: Chlorhexidine Gluconate () 1 each TOPICAL DAILY [facility] Last Admin: 03/01/19 13:24 Dose: Not Given Documented by: Clopidogrel Bisulfate (Plavix) 75 mg GT DAILY [facility] Last Admin: 03/01/19 08:26 Dose: 75 mg Documented by: Famotidine (Pepcid) 20 mg GT DAILY [facility] Last Admin: 03/01/19 08:26 Dose: 20 mg Documented by: Fenofibrate (Tricor) 145 mg GT DAILY [facility] Last Admin: 03/01/19 08:26 Dose: 145 mg Documented by: Fentanyl Citrate (Sublimaze (100mcg Ampule)) 50 mcg IV Q2H PRN PRN PRN Reason: Pain Score 1-10/10 Last Admin: 03/02/19 04:13 Dose: 50 mcg Documented by: Glucagon () 1 mg IM .X1 PRN PRN Reason: Hypoglycemia Haloperidol Lactate (Haldol) 3 mg IV Q4H PRN PRN PRN Reason: AGITATION Last Admin: 03/01/19 23:16 Dose: 3 mg Documented by: Sodium Chloride () 250 mls @ 15 mls/hr IV .[id number] PRN PRN Reason: Saline Flush Last Infusion: 02/28/19 10:14 Dose: 0 mls/hr Documented by: Sodium Chloride () 250 mls @ 15 mls/hr IV .[id number] PRN PRN Reason: Additional IVPB Infusion Dextrose (Dextrose 10%-Water) 250 mls @ 999 mls/hr IV .Q16M PRN; Protocol PRN Reason: HYPOGLYCEMIA Levofloxacin (Levaquin Iv) 750 mg in 150 mls @ 100 mls/hr IV Q48 NAIF Stop: 03/02/19 10:01 Last Infusion: 02/28/19 11:31 Dose: Infused Documented by: Levetiracetam 500 mg/ Sodium (Chloride) 105 mls @ 400 mls/hr IV Q12 [facility] Last Infusion: 03/01/19 22:10 Dose: Infused Documented by: Potassium Chloride 40 meq/ (Sodium Chloride) 120 mls @ 100 mls/hr IV BOLUS X1 ONE Stop: 03/02/19 07:45 Ipratropium [place] (Atrovent) 0.5 mg INHALATION Q4H.RT [facility] Last Admin: 03/02/19 06:35 Dose: 0.5 mg Documented by: Lorazepam (Ativan) 2 mg IV Q4H PRN PRN PRN Reason: SEIZURES Last Admin: 02/23/19 23:38 Dose: 2 mg Documented by: Losartan Potassium (Cozaar) 25 mg PO DAILY [facility] Metoprolol Tartrate (Lopressor (Beta Tata)) 25 mg PO BID [facility] Last Admin: 03/01/19 19:55 Dose: Not Given Documented by: Metoprolol Tartrate (Lopressor (Beta Tata)) 5 mg IV Q6 PRN PRN Reason: BLOOD PRESSURE ELEVATION Nicotine (Nicoderm Cq (Pbkc)) 21 mg TRANSDERM. DAILY [facility] Last Admin: 03/01/19 11:24 Dose: 21 mg Documented by: Nitroglycerin (Nitrostat) 0.4 mg SUBLINGUAL Q5M PRN PRN Reason: CHEST Polyethylene Glycol (Miralax) 17 gm GT DAILY PRN PRN Reason: Constipation Last Admin: 02/28/19 15:36 Dose: 17 gm Documented by: Prednisone () 40 mg PO DAILY@0800 [facility] Last Admin: 03/01/19 08:26 Dose: 40 mg Documented by: Quetiapine Fumarate (Seroquel) 100 mg GT BID [facility] Last Admin: 03/01/19 19:55 Dose: Not Given Documented by: Sodium Chloride () 10 - 40 ml IV UD PRN PRN Reason: SALINE FLUSH Last Admin: 03/02/19 04:13 Dose: 30 ml Documented by: STROKE Vital Signs/Narrative: Vital Signs Temp Pulse Resp BP Pulse Ox 03/02/19 06:00 85 29 H 120/55 L 94 03/02/19 05:00 93 29 H 144/56 H 94 03/02/19 04:00 98.9 F 92 32 H 134/56 H 92 Medical Necessity - Tobacco Use Smoking Status: Former smoker Tobacco Use: Cigarettes Assessment/Plan All Active Problems (Last Reviewed 08/01/18 @ 15:50 by Jackson Peter DO) Lower respiratory infection (Acute) Acute respiratory failure with hypoxia and hypercapnia (Acute) Pneumonia (Acute) Sepsis (Acute) Pulmonary embolism (Acute) Cholelithiasis NOS (Acute) Acute respiratory failure with hypoxia and hypercapnia (Acute) COPD with acute exacerbation (Acute) Gram-negative pneumonia (Acute) Acute hypercapnic respiratory failure (Acute) NSTEMI (non-ST elevated myocardial infarction) (Acute) COPD exacerbation (Acute) Patient is a 73-year-old lady with history of severe interstitial fibrosis admitted with progressive shortness of breath patient was intubated due to worsening respiratory status weaned off the vent on 03/01/2019. 1. Acute on chronic hypoxic respiratory failure ?Secondary to COPD exacerbation as well as Pseudomonas pneumonia. Patient was managed with mechanical ventilation weaned off the vent on 03/01/2019 2. Dysphagia Secondary to prolonged intubation patient did fail swallow eval on 03/01/2019 scheduled to undergo repeat evaluation on 03/02/2019 3. Seizure ?This was felt to be secondary to possible serotonin syndrome patient was previously on Precedex Seroquel bupropion and paroxetine the suspected offending medications held being managed with Keppra IV with plans to switch to p.o. once she passes a speech and swallow eval 4. Acute on chronic systolic heart failure with reduced ejection fraction ?EF 20% has been managed with Lasix which was held following episodes of hypotension 5. Acute non-STEMI ?Patient has previous history of CAD with subsequent stent placement was seen in consultation by cardiology recommendation is to manage with medical therapy only at this point 6. Essential hypertension ?Antihypertensives placed on hold following episodes of hypotension 7. History of DVT ?Patient is on Eliquis 8. Tobacco dependence ?Counseled on cessation, offered nicotine patch for tobacco cravings Code Visit Inpatient E&M: 30550 Subs Hosp L3
--- NOTE | 2019-03-02 08:01 | CPS ---
[employer] explained breathing tx to patient this morning. Pt. agreed to take treatment. After 5 mins of doing the breathing tx., pt. took off mask and said that she didn't want to do treatments anymore. [employer] REVIEWER VETERAN explained to patient the benefit and function of breathing treatments. Pt. understands, but still said she did not want to do anymore of the morning tx. Will encourage pt. to take later scheduled txs., if she agrees and allows.
--- NOTE | 2019-03-02 09:11 | PCM.PN.CARD ---
Subjectve: The patient appears to be awake and alert at this time conversing with family members. She denies ongoing chest discomfort. She has chronic shortness of breath and dyspnea. Objective: Vital Signs Temp Pulse Resp BP Pulse Ox 97.9 F 91 25 H 147/64 H 94 03/02/19 08:00 03/02/19 08:00 03/02/19 08:00 03/02/19 08:00 03/02/19 08:00 Oxygen Flow Rate (L/min) 2 Oxygen Delivery Method Nasal Cannula Weight: 147 lb 0.773 oz Body Mass Index (BMI) 26.4 Intake and Output for Last 24 Hours 02/28/19 03/01/19 03/02/19 23:59 23:59 23:59 Intake Total 2178.94 / 2193.65 272.53 / 272.53 Output Total 2110 / 2110 1650 / 1650 300 / 300 Balance 68.94 / 83.65 -1377.47 / -1377.47 -300 / -300 General: Awake, Alert, Cooperative, No Acute Distress HEENT: Atraumatic, Normocephalic, PERRL Oral: Moist Mucosa Neck: Supple, Good ROM, No JVD Lungs: - - Diminished breath sounds Cardiovascular: Regular Rhythm, Normal S1, Normal S2 Abdomen: Bowel Sounds Present, Soft, Non Tender Extremities: No edema Psych/Mental Status: Appropriate 03/02/19 04:15: WBC 13.6 H, RBC 3.72 L, Hgb 10.1 L, Hct 33.3 L, MCV 89.5, MCH 27.2, MCHC 30.3 L, Plt Count 283, MPV 10.7, Immature Gran % (Auto) 1.300 H, Neut % (Auto) 74.1 H, Lymph % (Auto) 16.4 L, [place] % (Auto) 6.8, Eos % (Auto) 1.3, Baso % (Auto) 0.1, Absolute Neuts (auto) 10.1 H, Nucleated RBC % 0 03/02/19 04:15: Sodium 144, Potassium 3.0 L, Chloride 108 H, Carbon Dioxide 30.0, BUN 24 H, Creatinine 0.83, Est GFR (MDRD) Af Amer 87, Est GFR (MDRD) Non-Af 72, BUN/Creatinine Ratio 29.0 H, Glucose 82, Calcium 8.0 L, Phosphorus 2.8 Rhythm: Sinus rhythm Medical Necessity - Tobacco Use Smoking Status: Former smoker Tobacco Use: Cigarettes Assessment/Plan 1. CAD status post PCI The patient has a history of underlying CAD status post PCI. At the present time the patient appears to be without acute symptoms. Her previous ECGs demonstrated T wave changes. A repeat ECG, now that her overall LV systolic function has been reported as improved by her most recent transthoracic echocardiogram, is pending. At the moment she is going to continue medical management. Further evaluation of the patient's cardiovascular status with diagnostic cardiac catheterization was discussed with the patient. At the present time she states she does not want to proceed with repeat diagnostic cardiac catheterization. Her family appears to be in support of her decision at this time. 2. Cardiomyopathy The patient was reported during her early hospitalization as having diminished LV systolic function with an estimated LVEF of 20% by transthoracic echocardiogram. Her echocardiogram has been repeated. Her overall LV systolic function has improved with an estimated LVEF of 53%. Thus there are concerns as to whether or not her changing LV systolic function may have been related to her noncardiac illness and potentially a stress-induced type cardiomyopathy. At the moment she appears to be without any acute symptoms of CHF or pulmonary edema. She will continue combined medical therapy as deemed appropriate. Again there was concerns about changes in her underlying CAD status that may have contributed to her electrocardiographic changes, LV systolic function changes, etc. However, as noted above, at the present time the patient prefers not to proceed with further cardiac evaluation such as diagnostic cardiac catheterization. 3. Hyperlipidemia The patient will continue medical management as deemed appropriate. 4. Hypertension The patient's blood pressure can be monitored. Her medications can be adjusted as deemed appropriate. 5. COPD The patient does have a history of underlying COPD. She is being followed by internal medicine and pulmonology/critical care medicine. Overall, at the present time, the patient, with support of her family, appears to prefer continue conservative medical management. If over time, depending upon the patient's clinical course, she elects to alter her decision and consider further evaluation with diagnostic cardiac catheterization, then this can be considered as deemed appropriate, and if she were to proceed in this manner the patient would need to have temporary interruption of her anticoagulant therapy, etc. Comment: The above was discussed and reviewed with the patient and her family members present. This note was generated using a voice recognition system and there may be incorrect words, spelling or punctuation that were not noted when reviewing the office note prior to saving.
[2019-03-02] MEDS: predniSONE 20 MG Tablet 40 MG PO (09:18)
[2019-03-02] MEDS: APIXABAN 5 MG TABLET PO ×2 (09:19→21:05)
[2019-03-02] MEDS: Losartan Potassium 25 MG Tablet PO (09:19)
[2019-03-02] MEDS: Metoprolol Tartrate 25 MG Tablet PO ×2 (09:19→21:05)
[2019-03-02] MEDS: Aspirin 81 MG TAB.CHEW PO (09:19)
[2019-03-02] MEDS: QUEtiapine 100 MG Tablet PO ×2 (09:20→21:04)
[2019-03-02] MEDS: Famotidine 20 MG Tablet PO (09:20)
[2019-03-02] MEDS: Fenofibrate 145 MG Tablet PO (09:20)
[2019-03-02] MEDS: Clopidogrel Bisulfate 75 MG Tablet PO (09:20)
[2019-03-02] MEDS: CHLORHEXIDINE GLUC 2% CLOTH 1 EACH TOWELETTE TOPICAL (09:20)
--- NOTE | 2019-03-02 09:23 | CASEMGMT ---
Addendum entered by Jami Bermeo 03/02/19 11:39: SW spoke w/Maria in rehab, PT/OT have been completed. They are considering pt for rehab, admitting physician would like to see how pt is once she is transferred to PCU, and will reassess pt tomorrow. SW will continue to follow. JOSELYN Ellis Addendum entered by Jami Bermeo 03/02/19 09:46: SW spoke w/daughter Lynn in room, pt's son Jacob has left. SW explained that pt's son did say last week that he was deferring to the other children, and that Mohsen had said he is deferring to Lynn and Priscilla. Lynn states that the other children have not been in to see pt unless they have to, and expressed frustration with her siblings. Daughter states she understands the law that all siblings have right to make decisions. Daughter did ask if pt is able in a day or two, can we complete POA papers w/pt. SW explained to daughter that yes, once pt is more clear mentally , we can complete POA papers w/pt. SW asked pt if she would be willing to do this, she states yes. SW asked pt who she would want to be POA, she pointed to her daughter. Pt however still does not seem completely oriented, had asked to use bathroom and had forgotten has a pure wick catheter placed at present. SW heard back from Maria in rehab, once pt has PT/OT has seen pt will call rehab to let them know evaluations are completed, so they can further consider the referral. JOSELYN Ellis Original Note: SW spoke w/pt, daughter Lynn and son Jacob in the room in regard to discharge plan. Pt alert, but forgetful at present. SW explained that going somewhere after pt's hospital stay may need to be considered. SW gave daughter lists of nursing homes in [facility] that take pt's insurance. Daughter asked about pt staying here. SW explained TCU does not take pt's insurance. SW educated daughter, pt and son on the rehab unit, they would like a referral made to the rehab unit. SW explained will make referral and therapy will help determine whether or not pt is a rehab candidate. Daughter states understanding. Daughter states that pt does not want to go to a penitentiary and she is trying to honor this. SW explained to daughter and pt it would be for short term and not ocean transportation intermediary. Daughter then came out of the room and said she does not want her brother to be involved in the decision making and wants to speak w/SW without brother present. SW will try to return later to see daughter when son not there. SW called the referral phone and left a message w/pt's name for referral to rehab. SW will continue to follow. JOSELYN Ellis
[2019-03-02] MEDS: levoFLOXacin IV 750 MG/150 ML BAG 100 MG IV (09:56)
[2019-03-02] MEDS: Atorvastatin Calcium 80 MG Tablet PO (21:04)
--- NOTE | 2019-03-02 21:20 | NURSING ---
Pt is oriented to self only, hallucinating at times:sees people/clothing, hears cats meowing. Pt continuously asking for a pen, in order to break phone open just to see what's inside. It's my phone, damnit. I can break it open if i want to. Pt advised against destroying property, no pen or other pointy objects given.
[2019-03-03] VITALS (16 sets, daily range): BP systolic 118–142; BP diastolic 46–106; PULSE 77–94; RESP 16–29; TEMP 36.5–37.2; O2SAT 94–97
--- NOTE | 2019-03-03 | RAD_ITS ---
STUDY: SWALLOWING STUDY REASON FOR EXAM: Female, 73 years old. DYSPHAGIA TECHNIQUE: The examination was performed with Speech Pathology in attendance. Under fluoroscopic observation, the patient ingested thin barium, thick barium, barium pudding. FLUOROSCOPY TIME: 2:10 minutes/seconds Comment: Fluoroscopy services provided for clinical procedure. Please refer to operating physician''s procedure note for additional detail. RADIOLOGIST INVOLVEMENT: Radiologist was present and providing direct supervision. COMPARISON: None. FINDINGS: The following was observed during swallowing of the various mixtures of barium: Thin Barium: There was no evidence of aspiration or laryngeal penetration. Thick Barium: There was no evidence of aspiration or laryngeal penetration. Barium Pudding: There was no evidence of aspiration or laryngeal penetration. [place] thick through straw : Mild vestibular penetration and mild vilma aspiration. RAD/Swallowing Function w/Video IMPRESSION: Mild vestibular penetration and mild vilma silent aspiration during nectar thick straw phase. Fluoroscopy services provided for clinical procedure. Please refer to operating physician''s procedure note for additional detail. The swallow study findings were discussed with the patient by the speech pathologist at the conclusion of the examination. Please see speech pathology report for more information and recommendations. Electronically Signed: Aung Finnegan MD at 14:27 EST , Service support ,
[2019-03-03] MEDS: fentaNYL 100 MCG/2 ML Ampul 50 MCG IV (04:05)
[2019-03-03] MEDS: 0.9% Saline Lock 10 ML Syringe IV ×2 (04:05→23:56)
[2019-03-03] MEDS: CHLORHEXIDINE GLUC 2% CLOTH 1 EACH TOWELETTE TOPICAL (04:08)
[2019-03-03] MEDS: Ipratropium 0.5 MG/2.5 ML SOLUTION INHALATION ×5 (04:15→23:03)
[2019-03-03 04:33] LABS: Absolute Lymphocyte Count 1.99 X10^3/uL (0.83-4.51); Absolute Neutrophil Count 11.7 X10^3/uL (2.0-7.7); Basophil# 0.02 X10^3/uL; Basophil% 0.1 % (0-1); Eosinophils% 1.3 % (0-5); Hematocrit 34.7 % (37-47); Hemoglobin 10.7 g/dL (12.0-15.0); Lymphocyte # 1.99 X10^3/ul (4.0); Lymphocyte % 13.1 % (19-41); Mean Corp Hgb Conc 30.8 g/dL (32-36); Mean Corpuscular Hgb 27.6 pg (27.0-32.0); Mean Corpuscular Volume 89.7 fL (81-99); Mean Platelet Vol. 10.7 fl (6.2-12.0); Monocyte# 1.12 X10^3/uL; Monocyte% 7.4 % (0-10); NRBC Flagged by Analyzer 0.1 % (0-5); Neutrophil # 11.68 X10^3/uL (2.7-7.7); Platelet Count 300 K/mm3 (150-450); RBC Distribution Width CV 18.3 % (11.6-14.6); RBC Distribution Width SD 56.5 fl (35.1-43.9); Red Blood Count 3.87 M/mm3 (4.2-5.4); White Blood Count 15.2 K/mm3 (4.4-11.0)
[2019-03-03 05:10] LABS: Anion Gap 5 (5-15); BUN 23 mg/dL (7-18); BUN/Creat Ratio 26.1 RATIO (10-20); Chloride 112 mmol/L (98-107); Creatinine, Serum 0.88 mg/dL (0.55-1.02); EST Glomerular Filtration Rate 67 mL/min (>60); Est Glom Filt Rate - Afr Amer 81 mL/min (>60); Glucose 92 mg/dL (74-106); Magnesium 2.4 mg/dL (1.6-2.6); Potassium 3.3 mmol/L (3.5-5.1); Sodium Level 144 mmol/L (136-145)
--- NOTE | 2019-03-03 06:17 | PCM.PN.PUL ---
Patient Problems: Active and Suspected Problems (Last Updated 03/02/19 @ 11:33 by Mercy Dupree) Acute respiratory failure with hypoxia and hypercapnia (Acute) Pneumonia (Acute) Sepsis (Acute) Subjective: The patient was seen and examined at the bedside this morning. Events from the last 24 hours have been reviewed. The patient is currently afebrile, hemodynamically stable and maintaining appropriate oxygen saturations on 2 L/min via nasal cannula. Potassium is again low this morning at 3.3. She is currently documented to be overall net +6.7 L for the hospital admission. The patient has remained restless and delirious overnight. Objective: The patient's most recent lab work, culture data and imaging studies have all been personally reviewed. CT chest without contrast did reveal bilateral lower lobe airspace disease with associated atelectasis and dependent pleural effusions. The patient does have significant upper lobe predominant emphysematous changes. Unfortunately, evaluation of the patient's lower lobes for interstitial lung disease was obscured by the aforementioned airspace opacities. Surface echocardiogram revealed moderately severe segmental systolic dysfunction with an ejection fraction of 20%. Pulmonary artery systolic pressure was estimated to be 52 mmHg. Strep and urine Legionella antigens were negative. Respiratory viral panel was negative. Sputum culture was positive for pseudomonas aeruginosa, which was pansensitive. - Physical Exam Vitals/I&O's: Vital Signs Temp Pulse Resp BP Pulse Ox 98.1 F 88 29 H 142/65 H 97 03/03/19 04:00 03/03/19 04:15 03/03/19 04:15 03/03/19 04:00 03/03/19 04:00 Oxygen Flow Rate (L/min) 2 Oxygen Delivery Method Nasal Cannula Weight: 145 lb 4.554 oz Body Mass Index (BMI) 26.4 Intake and Output for Last 24 Hours 03/01/19 03/02/19 03/03/19 23:59 23:59 23:59 Intake Total 272.53 / 272.53 1361.75 / 1486.75 125 / 125 Output Total 1650 / 1650 500 / 700 200 / 200 Balance -1377.47 / -1377.47 861.75 / 786.75 -75 / -75 General: Alert, No apparent distress HEENT: Atraumatic, PERRLA, Normocephalic Oral: No Gingival or Mucosal Lesions/ Ulcerations Neck: Supple, No Nodes, Trachea Midline Lungs: No rhonchi, No wheeze, No rales, Diminished Cardiovascular: Regular rate, Regular Rhythm, Normal S1, Normal S2 Abdomen: Bowel Sounds Present, Soft, Non Tender Extremities: No cyanosis, No edema, Clubbing Skin: No breakdown Musculoskeletal: No Tenderness to Palpation of Joints or Extremities Lymphatic: No Cervical, Supraclavicular, or Inguinal Adenopathy Neurological: Neuro grossly intact Psych/Mental Status: - - Intermittently agitated. Labs (Last 48 Hours) 03/02/19 03/02/19 03/03/19 04:15 04:15 04:15 WBC 13.6 H 15.2 H RBC 3.72 L 3.87 L Hgb 10.1 L 10.7 L Hct 33.3 L 34.7 L MCV 89.5 89.7 MCH 27.2 27.6 MCHC 30.3 L 30.8 L RDW Std Deviation 55.5 H 56.5 H RDW Coeff of Abhinav 18.2 H 18.3 H Plt Count 283 300 MPV 10.7 10.7 Immature Gran % (Auto) 1.300 H 1.100 H Neut % (Auto) 74.1 H 77.0 H Lymph % (Auto) 16.4 L 13.1 L [place] % (Auto) 6.8 7.4 Eos % (Auto) 1.3 1.3 Baso % (Auto) 0.1 0.1 Absolute Neuts (auto) 10.1 H 11.7 H Absolute Lymphs (auto) 2.22 1.99 Nucleated RBC % 0 0.1 Sodium 144 Potassium 3.0 L Chloride 108 H Carbon Dioxide 30.0 Anion Gap BUN 24 H Creatinine 0.83 Estim Creat Clear Calc 49.94 Est GFR (MDRD) Af Amer 87 Est GFR (MDRD) Non-Af 72 BUN/Creatinine Ratio 29.0 H Glucose 82 Calcium 8.0 L Phosphorus 2.8 Magnesium Albumin 3.0 L 03/03/19 04:15 WBC RBC Hgb Hct MCV MCH MCHC RDW Std Deviation RDW Coeff of Abhinav Plt Count MPV Immature Gran % (Auto) Neut % (Auto) Lymph % (Auto) [place] % (Auto) Eos % (Auto) Baso % (Auto) Absolute Neuts (auto) Absolute Lymphs (auto) Nucleated RBC % Sodium 144 Potassium 3.3 L Chloride 112 H Carbon Dioxide 27.0 Anion Gap 5 BUN 23 H Creatinine 0.88 Estim Creat Clear Calc 47.10 Est GFR (MDRD) Af Amer 81 Est GFR (MDRD) Non-Af 67 BUN/Creatinine Ratio 26.1 H Glucose 92 Calcium 8.0 L Phosphorus Magnesium 2.4 Albumin Microbiology 02/24/19 12:30 Blood Culture (Wb) - Arm Right Blood Culture - Final No growth in 5 days. 02/24/19 10:40 Blood Culture (Wb) - Line Draw Blood Culture - Final No growth in 5 days. Clinical Impression(s) from Imaging Studies Chest X-Ray 02/19/19 06:05 IMPRESSION: Bilateral lower airspace disease superimposed upon moderately severe pulmonary fibrosis. Differential considerations include bronchitis versus pneumonia. Electronically Signed: Marivel Smart MD at 6:39 EST , Service support , Chest X-Ray 02/20/19 06:35 IMPRESSION: Stable bilateral interstitial pulmonary infiltrates with pulmonary scarring and likely pulmonary fibrosis; there may be acute infiltrates or pulmonary venous congestion in addition to the chronic interstitial fibrotic changes and/or progression of pulmonary fibrosis with no change when compared to most recent chest radiograph Upper lobe COPD changes Ill-defined 8 mm density right upper lobe scar versus pulmonary lesion CT chest follow-up recommended Electronically Signed: Mohsen Zhong at 7:15 EST Tel , Service support , KUB X-Ray 02/20/19 07:17 IMPRESSION: Appropriate positioning of enteric tube with the tip probably in the stomach. Electronically Signed: Marivel Smart MD at 9:42 EST , Service support , Chest X-Ray 02/20/19 07:40 IMPRESSION: 1. Appropriate positioning of endotracheal tube. 2. Heterogeneous bilateral basilar interstitial and air space consolidations may represent pneumonia. Electronically Signed: Marivel Smart MD at 8:59 EST , Service support , Chest CT 02/20/19 09:52 IMPRESSION: 1. Bilateral lower lobe airspace consolidations, atelectasis and pleural effusions likely secondary to pneumonia. 2. Emphysematous changes and subcortical pulmonary fibrosis. 3. Nonspecific pathologic mediastinal lymphadenopathy. Electronically Signed: Marivel Smart MD at 11:06 EST , Service support , Brain CT 02/25/19 09:08 IMPRESSION: No acute intracranial process. Electronically Signed: Mac Hardin MD at 13:44 EST Tel , Service support , Chest CT 02/25/19 09:09 IMPRESSION: 1. Bilateral lower lobes infiltrates worse on the left side could be due to pneumonia. 2. Small bilateral pleural effusions. 3. Prominent mediastinal nodes likely reactive. Electronically Signed: Mac Hardin MD at 13:49 EST Tel , Service support , Current Medications Acetaminophen (Tylenol Liquid) 650 mg PO Q6H PRN PRN PRN Reason: Pain 1-3/10 or Fever >100.7 Apixaban (Eliquis) 5 mg PO BID [facility] Last Admin: 03/02/19 21:05 Dose: 5 mg Documented by: Aspirin (Aspirin, Baby) 81 mg PO DAILY@0800 [facility] Last Admin: 03/02/19 09:19 Dose: 81 mg Documented by: Atorvastatin Calcium (Lipitor) 80 mg PO QHS [facility] Last Admin: 03/02/19 21:04 Dose: 80 mg Documented by: Chlorhexidine Gluconate () 1 each TOPICAL DAILY [facility] Last Admin: 03/03/19 04:08 Dose: 1 each Documented by: Clopidogrel Bisulfate (Plavix) 75 mg PO DAILY [facility] Last Admin: 03/02/19 09:20 Dose: 75 mg Documented by: Famotidine (Pepcid) 20 mg PO DAILY [facility] Last Admin: 03/02/19 09:20 Dose: 20 mg Documented by: Fenofibrate (Tricor) 145 mg PO DAILY [facility] Last Admin: 03/02/19 09:20 Dose: 145 mg Documented by: Fentanyl Citrate (Sublimaze (100mcg Ampule)) 50 mcg IV Q2H PRN PRN PRN Reason: Pain Score 1-10/10 Last Admin: 03/03/19 04:05 Dose: 50 mcg Documented by: Glucagon () 1 mg IM .X1 PRN PRN Reason: Hypoglycemia Haloperidol Lactate (Haldol) 3 mg IV Q4H PRN PRN PRN Reason: AGITATION Last Admin: 03/01/19 23:16 Dose: 3 mg Documented by: Sodium Chloride () 250 mls @ 15 mls/hr IV .[id number] PRN PRN Reason: Saline Flush Last Infusion: 03/02/19 14:13 Dose: 0 mls/hr Documented by: Sodium Chloride () 250 mls @ 15 mls/hr IV .[id number] PRN PRN Reason: Additional IVPB Infusion Dextrose (Dextrose 10%-Water) 250 mls @ 999 mls/hr IV .Q16M PRN; Protocol PRN Reason: HYPOGLYCEMIA Levetiracetam 500 mg/ Sodium (Chloride) 105 mls @ 400 mls/hr IV Q12 NAIF Last Infusion: 03/02/19 21:44 Dose: Infused Documented by: Ipratropium [place] (Atrovent) 0.5 mg INHALATION Q4H.RT [facility] Last Admin: 03/03/19 04:15 Dose: 0.5 mg Documented by: Lorazepam (Ativan) 2 mg IV Q4H PRN PRN PRN Reason: SEIZURES Last Admin: 02/23/19 23:38 Dose: 2 mg Documented by: Losartan Potassium (Cozaar) 25 mg PO DAILY [facility] Last Admin: 03/02/19 09:19 Dose: 25 mg Documented by: Metoprolol Tartrate (Lopressor (Beta Tata)) 25 mg PO BID [facility] Last Admin: 03/02/19 21:05 Dose: 25 mg Documented by: Metoprolol Tartrate (Lopressor (Beta Tata)) 5 mg IV Q6 PRN PRN Reason: BLOOD PRESSURE ELEVATION Nicotine (Nicoderm Cq (Pbkc)) 21 mg TRANSDERM. DAILY [facility] Last Admin: 03/02/19 09:20 Dose: 21 mg Documented by: Nitroglycerin (Nitrostat) 0.4 mg SUBLINGUAL Q5M PRN PRN Reason: CHEST Polyethylene Glycol (Miralax) 17 gm PO DAILY PRN PRN Reason: Constipation Prednisone () 40 mg PO DAILY@0800 [facility] Last Admin: 03/02/19 09:18 Dose: 40 mg Documented by: Quetiapine Fumarate (Seroquel) 100 mg PO BID [facility] Last Admin: 03/02/19 21:04 Dose: 100 mg Documented by: Sodium Chloride () 10 - 40 ml IV UD PRN PRN Reason: SALINE FLUSH Last Admin: 03/03/19 04:05 Dose: 30 ml Documented by: Medical Necessity - Tobacco Use Smoking Status: Former smoker Tobacco Use: Cigarettes Assessment/Plan All Active Problems (Last Updated 03/02/19 @ 11:33 by Mercy Dupree) Lower respiratory infection (Acute) Acute respiratory failure with hypoxia and hypercapnia (Acute) Pneumonia (Acute) Sepsis (Acute) Pulmonary embolism (Acute) Cholelithiasis NOS (Acute) Acute respiratory failure with hypoxia and hypercapnia (Acute) COPD with acute exacerbation (Acute) Gram-negative pneumonia (Acute) Acute hypercapnic respiratory failure (Acute) NSTEMI (non-ST elevated myocardial infarction) (Acute) COPD exacerbation (Acute) RECOMMENDATIONS: 1. Additional potassium repletion as ordered. 2. Continue Eliquis. 3. Continue bronchodilators and steroids. Recommend slow prednisone taper at discharge. 4. Wean supplemental oxygen as tolerated. 5. Encourage incentive spirometer use and mobilize patient as tolerated. 6. Physical therapy following to assist with disposition planning. IMPRESSIONS: 1. Acute on chronic combined respiratory failure likely secondary to COPD with exacerbation There is clinical concern for underlying community acquired pneumonia as precipitating etiology for the patient's exacerbation. However, it does appear that the patient has some baseline interstitial fibrosis, which was present on prior chest imaging, and appears to have progressed in the interim. Despite the use of noninvasive positive pressure ventilatory support, the patient continued to decompensate from a clinical perspective and did require intubation on the morning of February 20. The patient's sputum culture turned positive for pseudomonas aeruginosa. Following aggressive medical intervention, the patient was able to be successfully extubated. She is currently maintaining appropriate oxygen saturations on minimal supplemental O2. We will plan to continue to wean her oxygen as tolerated. Continue bronchodilators and prednisone. Encourage incentive spirometer use and mobilize patient as tolerated. 2. Septic shock secondary to pseudomonal pneumonia Resolved. Continue current supportive measures with bronchodilators and prednisone. The patient remains hemodynamically stable. She has completed her treatment course of antimicrobials at this time. 3. History of venous thromboembolic disease The patient does have a history of pulmonary emboli, for which she will be continued on Eliquis per outpatient regimen. 4. Troponin elevation/NSTEMI/Acute on Chronic Systolic Heart Failure/Pulmonary Hypertension Although initially felt to be secondary to demand ischemia, a review of the patient's repeat echocardiogram revealed worsening in her LV ejection fraction. Therefore, cardiology was consulted and is currently following to assist with medical management. The patient may require heart catheterization, pending improvement in clinical stability. Will defer management and further work-up to cardiology. 5. Chronic systolic heart failure/pulmonary hypertension Cardiology is currently following to assist with medical management. 6. New onset seizure activity The patient apparently had a witnessed tonic-clonic seizure on 02/23. However, it resolved without intervention. No further seizure activity has been witnessed. 7. Tobacco dependency, currently in remission/hypertension/hyperlipidemia/peripheral vascular disease Complicates care, management, recovery and prognosis. Physical therapy to work with the patient. This note was generated with [employer] dictation software. It may contain incorrect words, spelling, and punctuation that were not noted in checking the note before signing. Code Visit Inpatient E&M: 06255 Subs Hosp L2
--- NOTE | 2019-03-03 07:42 | PCM.PN.HOSP ---
Patient Problems: Active and Suspected Problems (Last Updated 03/02/19 @ 11:33 by Mercy Dupree) Acute respiratory failure with hypoxia and hypercapnia (Acute) Pneumonia (Acute) Sepsis (Acute) Reason for Visit: Respiratory failure Subjective: She has seen in the ICU currently receiving breathing treatment. Had a relatively uneventful night. Potassium this morning 3.3 repletion initiated. Patient also remains deconditioned requested for PT OT eval and geriatric social work professor to assist with discharge planning. Objective: GENERAL: In no apparent distress HEENT: Atraumatic; EYES; Anicteric, Normal Conjunctiva NECK; supple, normal thyroid, RESPIRATORY: Diminished to auscultation CARDIOVASCULAR: Regular S1 S2, GI: soft, normoactive bowel sounds, : No Renal angle tenderness; EXTREMITIES: No edema, no clubbing, MUSCULOSKELETAL: no muscle waisting NEURO: Awake; no lateralizing signs. SKIN: No Rash PSYCH; Flat affect Vitals/I&O's: Vital Signs Temp Pulse Resp BP Pulse Ox 98.1 F 88 29 H 142/65 H 97 03/03/19 04:00 03/03/19 04:15 03/03/19 04:15 03/03/19 04:00 03/03/19 04:00 Oxygen Flow Rate (L/min) 2 Oxygen Delivery Method Nasal Cannula Weight: 65.9 kg Body Mass Index (BMI) 26.4 Intake and Output for Last 24 Hours 03/01/19 03/02/19 03/03/19 23:59 23:59 23:59 Intake Total 272.53 / 272.53 1361.75 / 1486.75 225 / 225 Output Total 1650 / 1650 500 / 700 400 / 400 Balance -1377.47 / -1377.47 861.75 / 786.75 -175 / -175 Microbiology Past 72 Hours 02/24/19 12:30 Blood Culture (Wb) - Arm Right Blood Culture - Final No growth in 5 days. 02/24/19 10:40 Blood Culture (Wb) - Line Draw Blood Culture - Final No growth in 5 days. 02/26/19 05:50 Sputum, Induced/[place]ukens Gram Stain - Final 02/26/19 05:50 Sputum, Induced/Lukens Respiratory Culture - Final Culture exhibits no growth. Laboratory Results 03/03/19 04:15: WBC 15.2 H, RBC 3.87 L, Hgb 10.7 L, Hct 34.7 L, MCV 89.7, MCH 27.6, MCHC 30.8 L, RDW Std Deviation 56.5 H, RDW Coeff of Abhinav 18.3 H, Plt Count 300, MPV 10.7, Immature Gran % (Auto) 1.100 H, Neut % (Auto) 77.0 H, Lymph % (Auto) 13.1 L, [place] % (Auto) 7.4, Eos % (Auto) 1.3, Baso % (Auto) 0.1, Absolute Neuts (auto) 11.7 H, Absolute Lymphs (auto) 1.99, Nucleated RBC % 0.1 03/03/19 04:15: Sodium 144, Potassium 3.3 L, Chloride 112 H, Carbon Dioxide 27.0, Anion Gap 5, BUN 23 H, Creatinine 0.88, Estim Creat Clear Calc 47.10, Est GFR (MDRD) Af Amer 81, Est GFR (MDRD) Non-Af 67, BUN/Creatinine Ratio 26.1 H, Glucose 92, Calcium 8.0 L, Magnesium 2.4 Current Medications Acetaminophen (Tylenol Liquid) 650 mg PO Q6H PRN PRN PRN Reason: Pain 1-3/10 or Fever >100.7 Apixaban (Eliquis) 5 mg PO BID [facility] Last Admin: 03/02/19 21:05 Dose: 5 mg Documented by: Aspirin (Aspirin, Baby) 81 mg PO DAILY@0800 [facility] Last Admin: 03/02/19 09:19 Dose: 81 mg Documented by: Atorvastatin Calcium (Lipitor) 80 mg PO QHS [facility] Last Admin: 03/02/19 21:04 Dose: 80 mg Documented by: Chlorhexidine Gluconate () 1 each TOPICAL DAILY [facility] Last Admin: 03/03/19 04:08 Dose: 1 each Documented by: Clopidogrel Bisulfate (Plavix) 75 mg PO DAILY [facility] Last Admin: 03/02/19 09:20 Dose: 75 mg Documented by: Famotidine (Pepcid) 20 mg PO DAILY [facility] Last Admin: 03/02/19 09:20 Dose: 20 mg Documented by: Fenofibrate (Tricor) 145 mg PO DAILY [facility] Last Admin: 03/02/19 09:20 Dose: 145 mg Documented by: Glucagon () 1 mg IM .X1 PRN PRN Reason: Hypoglycemia Haloperidol Lactate (Haldol) 3 mg IV Q4H PRN PRN PRN Reason: AGITATION Last Admin: 03/01/19 23:16 Dose: 3 mg Documented by: Sodium Chloride () 250 mls @ 15 mls/hr IV .[id number] PRN PRN Reason: Saline Flush Last Infusion: 03/02/19 14:13 Dose: 0 mls/hr Documented by: Sodium Chloride () 250 mls @ 15 mls/hr IV .[id number] PRN PRN Reason: Additional IVPB Infusion Dextrose (Dextrose 10%-Water) 250 mls @ 999 mls/hr IV .Q16M PRN; Protocol PRN Reason: HYPOGLYCEMIA Levetiracetam 500 mg/ Sodium (Chloride) 105 mls @ 400 mls/hr IV Q12 [facility] Last Infusion: 03/02/19 21:44 Dose: Infused Documented by: Ipratropium Noel (Atrovent) 0.5 mg INHALATION Q4H.RT [facility] Last Admin: 03/03/19 07:21 Dose: 0.5 mg Documented by: Losartan Potassium (Cozaar) 25 mg PO DAILY [facility] Last Admin: 03/02/19 09:19 Dose: 25 mg Documented by: Metoprolol Tartrate (Lopressor (Beta Tata)) 25 mg PO BID [facility] Last Admin: 03/02/19 21:05 Dose: 25 mg Documented by: Metoprolol Tartrate (Lopressor (Beta Tata)) 5 mg IV Q6 PRN PRN Reason: BLOOD PRESSURE ELEVATION Nicotine (Nicoderm Cq (Pbkc)) 21 mg TRANSDERM. DAILY [facility] Last Admin: 03/02/19 09:20 Dose: 21 mg Documented by: Nitroglycerin (Nitrostat) 0.4 mg SUBLINGUAL Q5M PRN PRN Reason: CHEST Polyethylene Glycol (Miralax) 17 gm PO DAILY PRN PRN Reason: Constipation Potassium Chloride (K-Dur) 20 meq PO BIDCM [facility] Prednisone () 40 mg PO DAILY@0800 [facility] Last Admin: 03/02/19 09:18 Dose: 40 mg Documented by: Quetiapine Fumarate (Seroquel) 100 mg PO BID [facility] Last Admin: 03/02/19 21:04 Dose: 100 mg Documented by: Sodium Chloride () 10 - 40 ml IV UD PRN PRN Reason: SALINE FLUSH Last Admin: 03/03/19 04:05 Dose: 30 ml Documented by: STROKE Vital Signs/Narrative: Vital Signs Temp Pulse Resp BP Pulse Ox 03/03/19 04:15 88 29 H 03/03/19 04:00 98.1 F 94 16 142/65 H 97 Medical Necessity - Tobacco Use Smoking Status: Former smoker Tobacco Use: Cigarettes Assessment/Plan All Active Problems (Last Updated 03/02/19 @ 11:33 by Mercy Dupree) Lower respiratory infection (Acute) Acute respiratory failure with hypoxia and hypercapnia (Acute) Pneumonia (Acute) Sepsis (Acute) Pulmonary embolism (Acute) Cholelithiasis NOS (Acute) Acute respiratory failure with hypoxia and hypercapnia (Acute) COPD with acute exacerbation (Acute) Gram-negative pneumonia (Acute) Acute hypercapnic respiratory failure (Acute) NSTEMI (non-ST elevated myocardial infarction) (Acute) COPD exacerbation (Acute) Patient is a 73-year-old lady with history of severe interstitial fibrosis admitted with progressive shortness of breath patient was intubated due to worsening respiratory status weaned off the vent on 03/01/2019. 1. Acute on chronic hypoxic respiratory failure ?Secondary to COPD exacerbation as well as Pseudomonas pneumonia. Patient was managed with mechanical ventilation weaned off the vent on 03/01/2019 ?03/03/2019: Patient seen breathing continues to improve 2. Dysphagia Secondary to prolonged intubation patient did fail swallow eval on 03/01/2019 scheduled to undergo repeat evaluation on 03/02/2019 ?03/03/2019 patient did pass her speech and swallow eval subsequently started on oral diet 3. Seizure ?This was felt to be secondary to possible serotonin syndrome patient was previously on Precedex Seroquel bupropion and paroxetine the suspected offending medications held being managed with Keppra IV with plans to switch to p.o. once she passes a speech and swallow eval 4. Acute on chronic systolic heart failure with reduced ejection fraction ?EF 20% has been managed with Lasix which was held following episodes of hypotension 5. Acute non-STEMI ?Patient has previous history of CAD with subsequent stent placement was seen in consultation by cardiology recommendation is to manage with medical therapy only at this point 6. Essential hypertension ?Antihypertensives placed on hold following episodes of hypotension 7. History of DVT ?Patient is on Eliquis 8. Tobacco dependence ?Counseled on cessation, offered nicotine patch for tobacco cravings 9. Hypokalemia ?Corrected per protocol 10. Physical deconditioning ?Requested for PT OT eval and treatment and geriatric social work professor to assist with discharge planning. Code Visit Inpatient E&M: [id number] Subs Hosp L2
[2019-03-03] MEDS: predniSONE 20 MG Tablet 40 MG PO (08:21)
[2019-03-03] MEDS: Aspirin 81 MG TAB.CHEW PO (08:21)
[2019-03-03] MEDS: Famotidine 20 MG Tablet PO (10:34)
[2019-03-03] MEDS: QUEtiapine 100 MG Tablet PO ×2 (10:34→23:58)
[2019-03-03] MEDS: APIXABAN 5 MG TABLET PO (10:35)
[2019-03-03] MEDS: Metoprolol Tartrate 25 MG Tablet PO ×2 (10:35→23:58)
[2019-03-03] MEDS: Losartan Potassium 25 MG Tablet PO (10:35)
[2019-03-03] MEDS: Fenofibrate 145 MG Tablet PO (10:36)
[2019-03-03] MEDS: Clopidogrel Bisulfate 75 MG Tablet PO (10:36)
--- NOTE | 2019-03-03 12:31 | CASEMGMT ---
RN CM Note: Reviewed PT/OT notes. Call to request clarification for dc recommendation besides additional therapy recommended. Awaiting call back. SW consult for placement. [place] BACHN RN ACM
--- NOTE | 2019-03-03 13:00 | SP.MBSS_ITS ---
PRIMARY / SECONDARY DIAGNOSIS: Dysphagia REFERRING PHYSICIAN: Dr. Goode CURRENT DIET: pureed textures/nectar thickened liquids DENTITION: edentulous MENTAL STATUS: confusion evident w/ difficulty consistently following commands/complying w/ instructions which limited the assessment RESPIRATORY STATUS: oxygenating on 2L/min O2 via nasal cannula PREVIOUS MODIFIED BARIUM SWALLOW STUDY: n/a REASON FOR REFERRAL: Further assessment of swallow function under fluoroscopy recommended to further assess oropharyngeal swallow function d/t age, length of intubation (~10 days) and increased risk for silent aspiration given comorbidity of COPD MEDICAL HISTORY: Pt is a 73 year old female who was admitted to [facility] on 02/19/2019 d/t acute on chronic combined respiratory failure requiring prolonged emergency intubation (10 days), likely secondary to COPD with exacerbation. Past medical history is extensive, most significant for COPD and GERD. Pt was intubated 02/20/2019 at 0732; extubated 03/01/2019 at 0915. STUDY FINDINGS: Patient participated in a Modified Barium Swallow (MBS) study on 03/03/2019 with a radiologist present for evaluation. This study was recorded in the lateral view and images were sent to PACs for storage. The following consistencies were presented to this patient for analysis of oropharyngeal swallow function: thin liquid, nectar thickened liquid and pudding. Results of the MBS are as follows: PENETRATION / ASPIRATION SCALE (LEE): 1 = does not enter airway 2 = enters airway/above vocal folds/ejected 3 = enters airway/above vocal folds/not ejected 4 = enters airway/contacts vocal folds/ejected 5 = enters airway/contacts vocal folds/not ejected 6 = enters airway/below vocal folds/ejected 7 = enters airway/below vocal folds/not ejected despite effort 8 = enters airway/below vocal folds/no effort PENETRATION / ASPIRATION SCALE (SCORE): 1. [place] thickened liquid by teaspoon: 1 2. [place] thickened liquid by teaspoon: 1 3. [place] thickened liquid by cup: 1 4. Thin liquid by cup: 1 5. Thin liquid by cup: 1 6. Puddin 7. Thin liquid by straw: 8 8. Thin liquid by cup: 5 9. Thin liquid sequential swallows: 5 extremely weak throat clearing/cough (only audible to PAIRER ODDS d/t close proximity during MBS) was noted intermittently post deglutition of thin and nectar thickened liquids without any evidence of penetration/aspiration having occurred under fluoroscopy. MODIFIED BARIUM SWALLOW IMPAIRMENT PROFILE (MBSImP) ORAL PHASE CHARACTERIZED BY: LABIAL SEAL: interlabial escape, no progression to anterior lip TONGUE CONTROL DURING BOLUS MANIPULATION: cohesive bolus between tongue to palatal seal BOLUS PREPARATION / MASTICATION: DNT d/t risk for asphyxiation given current edentulous status w/ confusion/difficulty following commands BOLUS TRANSPORT / LINGUAL MOTION: slowed tongue motion ORAL RESIDUE: trace residue lining oral structures PHARYNGEAL PHASE CHARACTERIZED BY: INITIATION OF PHARYNGEAL SWALLOW: bolus head in pyriforms at first hyoid excursion SOFT PALATE ELEVATION: no bolus between soft palate and pharyngeal wall LARYNGEAL ELEVATION: partial superior movement of thyroid cartilage/partial approximation of arytenoids cartilage to epiglottic petiole ANTERIOR HYOID EXCURSION: trace anterior movement EPIGLOTTIC MOVEMENT: partial epiglottic inversion LARYNGEAL VESTIBULE CLOSURE AT HEIGHT OF SWALLOW: incomplete laryngeal vestibule closure with narrow column of air/contrast in laryngeal vestibule PHARYNGEAL STRIPPING WAVE: pharyngeal stripping wave present / complete PHARYNGOESOPHAGEAL SEGMENT OPENING: complete distension and complete duration with no obstruction of flow TONGUE BASE RETRACTION: narrow column of contrast between tongue base and posterior pharyngeal wall PHARYNGEAL RESIDUE: collection of residue within or on pharyngeal structures ESOPHAGEAL PHASE CHARACTERIZED BY: ESOPHAGEAL BOLUS CLEARANCE IN THE UPRIGHT POSITION: could not view EFFECTS OF TREATMENT STRATEGIES ATTEMPTED: Cough and reswallow = enable to comprehend instruction to execute Reduced bolus size = effective Removal of straw = somewhat effective limited strategies trials d/t patient difficulty consistently following commands & complying w/ instructions INTERPRETATION OF RESULTS Patient presents with moderate oropharyngeal dysphagia (R13.12) characterized by delayed pharyngeal swallow onset timing w/ thin liquids spilling to the pyriform sinuses prior to initiation of swallow. Initiation improved w/ thicker viscosities, swallow onset initiating when nectar & pudding consistencies reached the valleculae. Delayed swallow onset timing couples w/ use of straw for thin liquid intake resulted in thin liquid spilling over the epiglottis and directly into the laryngeal vestibule resulting in SILENT ASPIRATION BEFORE SWALLOW ONSET w/ penetration during the swallow to the vocal folds. The patient demonstrated NO OUTWARD SIGNS OF ASPIRATION having occurred. The patient was unable to comprehend/execute a cued cough when instructed, therefore was not able to/made no attempt to expel aspirate from the trachea. Thin liquid consumed via cup, especially w/ larger volume/sequential boluses resulted in laryngeal vestibule penetration which contacted the vocal folds during deglutition and did not eject post deglutition. Penetration attributed to delayed swallow onset w/ minimal anterior hyoid movement and reduced thyroid elevation. A very delayed and extremely weak/ineffective cough was noted towards the end of the study. A small collection of residue remained w/in the valleculae post deglutition. A small cricopharyngeal bar was noted along the posterior pharyngoesophageal wall at the level of C5-6, although it did not impact bolus clearance. Solid texture trials were withheld d/t risk for asphyxiation given current edentulous status w/ confusion/difficulty following commands. RECOMMENDATIONS DIET TEXTURE RECOMMENDATIONS: pureed textures/nectar thickened liquids COMPENSATORY STRATEGIES RECOMMENDED: Direction supervision of PO intake, no straws, small bites and sips, slow rate of intake, seated upright at 90 degrees during intake, remain upright for 30-60 minutes post intake (GERD precaution). NEED FOR REPEAT MBS: Would strongly discourage advancement past nectar thickened liquids without completion of a repeat modified barium swallow study due to the extent of aspirate identified under fluoroscopy that was SILENT in nature. Recommend a repeat modified barium swallow study within 1-2 weeks, as clinically appropriate, to further assess the presence and extent of silent and overt aspiration prior to advancement to thin liquids. NEED FOR SKILLED SPEECH-LANGUAGE INTERVENTION TARGETING DYSPHAGIA: This patient requires intensive skilled speech-language intervention targeting use of compensatory strategies (small bites/sips, one sip at a time, slow rater of intake) during meals, implementation of oropharyngeal strengthening exercises to improve tongue base retraction, hyolaryngeal excursion, laryngeal vestibule closure and respiratory muscle strength training to improve cough support. Recommend a repeat MBS in 1-2 weeks as appropriate to gauge progress w/ treatment. Further patient education re: post extubation dysphagia and dysphagia associated with chronic obstructive pulmonary disease. Ability to participate in treatment may be limited by patient?s confusion, ability to comprehend instructions provided and willingness to comply w/ recommendations. ADDITIONAL COMMENTS/RECOMMENDATIONS: Results and recommendations were discussed with the Patient immediately following MBS completion, although poor comprehension is suspected as the patient did not express understanding or agreement w/ recommendations made & education provided. Will require continued reinforcement of recommended treatment plan. Results were discussed w/ Christian pre owned sales manager immediately following MBS and w/ Shelby OPERATIONAL RISK CONSULTANT via telephone after the study was complete. Shelby RN to update dry erase board in patient?s room to reflect current diet, supervision needs and aspiration precautions. IMAGE COUNT: [id number]
--- NOTE | 2019-03-03 17:45 | PCM.PN.CARD ---
Subjectve: The patient is awake, however, she does not answer appropriately at this time to questions such as time or place. She appears to deny any ongoing symptoms of acute chest discomfort or worsening shortness of breath/dyspnea. Objective: Vital Signs Temp Pulse Resp BP Pulse Ox 97.7 F L 91 18 118/79 94 03/03/19 17:02 03/03/19 17:02 03/03/19 17:02 03/03/19 17:02 03/03/19 17:02 Oxygen Flow Rate (L/min) 3 Oxygen Delivery Method Nasal Cannula Weight: 145 lb 4.554 oz Body Mass Index (BMI) 26.4 Intake and Output for Last 24 Hours 03/01/19 03/02/19 03/03/19 23:59 23:59 23:59 Intake Total 272.53 / 272.53 1361.75 / 1486.75 700 / 700 Output Total 1650 / 1650 500 / 700 850 / 850 Balance -1377.47 / -1377.47 861.75 / 786.75 -150 / -150 General: Awake, Cooperative, No Acute Distress HEENT: Atraumatic, Normocephalic, PERRL, EOMI Oral: Moist Mucosa Neck: Supple, Good ROM, No JVD Lungs: - - No obvious rales or rhonchi at this time Cardiovascular: Regular Rhythm, Normal S1, Normal S2 Abdomen: Bowel Sounds Present, Soft, Non Tender Extremities: No edema 03/03/19 04:15: WBC 15.2 H, RBC 3.87 L, Hgb 10.7 L, Hct 34.7 L, MCV 89.7, MCH 27.6, MCHC 30.8 L, Plt Count 300, MPV 10.7, Immature Gran % (Auto) 1.100 H, Neut % (Auto) 77.0 H, Lymph % (Auto) 13.1 L, [place] % (Auto) 7.4, Eos % (Auto) 1.3, Baso % (Auto) 0.1, Absolute Neuts (auto) 11.7 H, Nucleated RBC % 0.1 03/03/19 04:15: Sodium 144, Potassium 3.3 L, Chloride 112 H, Carbon Dioxide 27.0, Anion Gap 5, BUN 23 H, Creatinine 0.88, Est GFR (MDRD) Af Amer 81, Est GFR (MDRD) Non-Af 67, BUN/Creatinine Ratio 26.1 H, Glucose 92, Calcium 8.0 L, Magnesium 2.4 Rhythm: Sinus rhythm EKG: Sinus rhythm; nonspecific ST and T wave abnormality; compared to the previous ECG the previous marked ST/T wave changes appear to be resolving towards baseline at this time Medical Necessity - Tobacco Use Smoking Status: Former smoker Tobacco Use: Cigarettes Assessment/Plan 1. CAD status post PCI The patient has a history of underlying CAD status post PCI. At the present time the patient appears to be without acute symptoms. Her previous ECGs demonstrated T wave changes. Her repeat ECG has demonstrated the appearance of progression towards baseline of her previous ST/T wave changes. At the moment she is going to continue medical management. Further evaluation of the patient's cardiovascular status with diagnostic cardiac catheterization was discussed with the patient. At the present time she states she does not want to proceed with repeat diagnostic cardiac catheterization. Her family appears to be in support of her decision at this time. 2. Cardiomyopathy The patient was reported during her early hospitalization as having diminished LV systolic function with an estimated LVEF of 20% by transthoracic echocardiogram. Her echocardiogram has been repeated. Her overall LV systolic function has improved with an estimated LVEF of 53%. Thus there are concerns as to whether or not her changing LV systolic function may have been related to her noncardiac illness and potentially a stress-induced type cardiomyopathy. At the moment she appears to be without any acute symptoms of CHF or pulmonary edema. She will continue combined medical therapy as deemed appropriate. Again there was concerns about changes in her underlying CAD status that may have contributed to her electrocardiographic changes, LV systolic function changes, etc. However, as noted above, at the present time the patient prefers not to proceed with further cardiac evaluation such as diagnostic cardiac catheterization. 3. Hyperlipidemia The patient will continue medical management as deemed appropriate. 4. Hypertension The patient's blood pressure can be monitored. Her medications can be adjusted as deemed appropriate. 5. COPD The patient does have a history of underlying COPD. She is being followed by internal medicine and pulmonology/critical care medicine. 6. Mental status changes The patient appears to be somewhat disoriented at this time. She will need continued evaluation and care per internal medicine. Of note, she is also undergone a swallowing study. According to the ICU nursing staff she is not yet able to advance her diet based upon concerns of aspiration. This note was generated using a voice recognition system and there may be incorrect words, spelling or punctuation that were not noted when reviewing the office note prior to saving.
[2019-03-03] MEDS: Haloperidol Lactate 5 MG/ML Vial 3 MG IV (23:56)
[2019-03-03] MEDS: Atorvastatin Calcium 80 MG Tablet PO (23:59)
[2019-03-04] VITALS (17 sets, daily range): BP systolic 109–141; BP diastolic 52–93; PULSE 72–104; RESP 16–30; TEMP 36–36.8; O2SAT 92–100
[2019-03-04 05:00] LABS: Absolute Lymphocyte Count 2.28 X10^3/uL (0.83-4.51); Absolute Neutrophil Count 8.8 X10^3/uL (2.0-7.7); Basophil# 0.02 X10^3/uL; Basophil% 0.2 % (0-1); Eosinophil# 0.32 X10^3/uL; Eosinophils% 2.6 % (0-5); Hematocrit 34.4 % (37-47); Hemoglobin 10.5 g/dL (12.0-15.0); Lymphocyte # 2.28 X10^3/ul (4.0); Lymphocyte % 18.4 % (19-41); Mean Corp Hgb Conc 30.5 g/dL (32-36); Mean Corpuscular Hgb 27.4 pg (27.0-32.0); Mean Corpuscular Volume 89.8 fL (81-99); Mean Platelet Vol. 10.9 fl (6.2-12.0); Monocyte# 0.88 X10^3/uL; Monocyte% 7.1 % (0-10); NRBC Flagged by Analyzer 0 % (0-5); Neutrophil # 8.76 X10^3/uL (2.7-7.7); Neutrophil % 70.9 % (47-70); Platelet Count 270 K/mm3 (150-450); RBC Distribution Width CV 18.4 % (11.6-14.6); RBC Distribution Width SD 57.4 fl (35.1-43.9); Red Blood Count 3.83 M/mm3 (4.2-5.4); White Blood Count 12.4 K/mm3 (4.4-11.0)
[2019-03-04 05:17] LABS: Anion Gap 4 (5-15); BUN 22 mg/dL (7-18); BUN/Creat Ratio 25.2 RATIO (10-20); Calcium,Total 8.2 mg/dL (8.5-10.1); Chloride 114 mmol/L (98-107); Creatinine, Serum 0.87 mg/dL (0.55-1.02); EST Glomerular Filtration Rate 67 mL/min (>60); Est Glom Filt Rate - Afr Amer 81 mL/min (>60); Estimated Creatinine Clearance 47.64 ml/min; Glucose 105 mg/dL (74-106); Potassium 3.9 mmol/L (3.5-5.1); Sodium Level 145 mmol/L (136-145)
--- NOTE | 2019-03-04 06:42 | PCM.PN.PUL ---
Patient Problems: Active and Suspected Problems (Last Updated 03/02/19 @ 11:33 by Mercy Dupree) Acute respiratory failure with hypoxia and hypercapnia (Acute) Pneumonia (Acute) Sepsis (Acute) Subjective: The patient was seen and examined at the bedside this morning. Events from the last 24 hours have been reviewed. The patient is currently afebrile, hemodynamically stable and maintaining appropriate oxygen saturations on 2 L/min via nasal cannula. No overnight issues were identified by the nursing staff. Objective: The patient's most recent lab work, culture data and imaging studies have all been personally reviewed. CT chest without contrast did reveal bilateral lower lobe airspace disease with associated atelectasis and dependent pleural effusions. The patient does have significant upper lobe predominant emphysematous changes. Unfortunately, evaluation of the patient's lower lobes for interstitial lung disease was obscured by the aforementioned airspace opacities. Surface echocardiogram revealed moderately severe segmental systolic dysfunction with an ejection fraction of 20%. Pulmonary artery systolic pressure was estimated to be 52 mmHg. Strep and urine Legionella antigens were negative. Respiratory viral panel was negative. Sputum culture was positive for pseudomonas aeruginosa, which was pansensitive. - Physical Exam Vitals/I&O's: Vital Signs Temp Pulse Resp BP Pulse Ox 98.2 F 82 18 141/52 H 92 03/04/19 04:00 03/04/19 04:00 03/04/19 04:00 03/04/19 04:00 03/04/19 04:00 Oxygen Flow Rate (L/min) 2 Oxygen Delivery Method Nasal Cannula Weight: 143 lb 8.335 oz Body Mass Index (BMI) 26.4 Intake and Output for Last 24 Hours 03/02/19 03/03/19 03/04/19 23:59 23:59 23:59 Intake Total 1361.75 / 1486.75 700 / 850 255 / 255 Output Total 500 / 700 850 / 1100 550 / 550 Balance 861.75 / 786.75 -150 / -250 -295 / -295 General: Alert, No apparent distress HEENT: Atraumatic, Normocephalic Oral: No Gingival or Mucosal Lesions/ Ulcerations Neck: Supple, No Nodes, Trachea Midline Lungs: No rhonchi, No wheeze, No rales, Diminished Cardiovascular: Regular rate, Regular Rhythm, Normal S1, Normal S2 Abdomen: Bowel Sounds Present, Soft, Non Tender Extremities: No cyanosis, Clubbing Skin: No breakdown Musculoskeletal: No Tenderness to Palpation of Joints or Extremities Lymphatic: No Cervical, Supraclavicular, or Inguinal Adenopathy Neurological: Neuro grossly intact Psych/Mental Status: Impulsive Labs (Last 48 Hours) 03/03/19 03/03/19 03/04/19 04:15 04:15 04:30 WBC 15.2 H 12.4 H RBC 3.87 L 3.83 L Hgb 10.7 L 10.5 L Hct 34.7 L 34.4 L MCV 89.7 89.8 MCH 27.6 27.4 MCHC 30.8 L 30.5 L RDW Std Deviation 56.5 H 57.4 H RDW Coeff of Abhinav 18.3 H 18.4 H Plt Count 300 270 MPV 10.7 10.9 Immature Gran % (Auto) 1.100 H 0.800 Neut % (Auto) 77.0 H 70.9 H Lymph % (Auto) 13.1 L 18.4 L [place] % (Auto) 7.4 7.1 Eos % (Auto) 1.3 2.6 Baso % (Auto) 0.1 0.2 Absolute Neuts (auto) 11.7 H 8.8 H Absolute Lymphs (auto) 1.99 2.28 Nucleated RBC % 0.1 0 Sodium 144 Potassium 3.3 L Chloride 112 H Carbon Dioxide 27.0 Anion Gap 5 BUN 23 H Creatinine 0.88 Estim Creat Clear Calc 47.10 Est GFR (MDRD) Af Amer 81 Est GFR (MDRD) Non-Af 67 BUN/Creatinine Ratio 26.1 H Glucose 92 Calcium 8.0 L Magnesium 2.4 03/04/19 04:30 WBC RBC Hgb Hct MCV MCH MCHC RDW Std Deviation RDW Coeff of Abhinav Plt Count MPV Immature Gran % (Auto) Neut % (Auto) Lymph % (Auto) [place] % (Auto) Eos % (Auto) Baso % (Auto) Absolute Neuts (auto) Absolute Lymphs (auto) Nucleated RBC % Sodium 145 Potassium 3.9 Chloride 114 H Carbon Dioxide 27.0 Anion Gap 4 L BUN 22 H Creatinine 0.87 Estim Creat Clear Calc 47.64 Est GFR (MDRD) Af Amer 81 Est GFR (MDRD) Non-Af 67 BUN/Creatinine Ratio 25.2 H Glucose 105 Calcium 8.2 L Magnesium Clinical Impression(s) from Imaging Studies Chest X-Ray 02/19/19 06:05 IMPRESSION: Bilateral lower airspace disease superimposed upon moderately severe pulmonary fibrosis. Differential considerations include bronchitis versus pneumonia. Electronically Signed: Marivel Smart MD at 6:39 EST , Service support , Chest X-Ray 02/20/19 06:35 IMPRESSION: Stable bilateral interstitial pulmonary infiltrates with pulmonary scarring and likely pulmonary fibrosis; there may be acute infiltrates or pulmonary venous congestion in addition to the chronic interstitial fibrotic changes and/or progression of pulmonary fibrosis with no change when compared to most recent chest radiograph Upper lobe COPD changes Ill-defined 8 mm density right upper lobe scar versus pulmonary lesion CT chest follow-up recommended Electronically Signed: Mohsen Zhong at 7:15 EST Tel , Service support , KUB X-Ray 02/20/19 07:17 IMPRESSION: Appropriate positioning of enteric tube with the tip probably in the stomach. Electronically Signed: Marivel Smart MD at 9:42 EST , Service support , Chest X-Ray 02/20/19 07:40 IMPRESSION: 1. Appropriate positioning of endotracheal tube. 2. Heterogeneous bilateral basilar interstitial and air space consolidations may represent pneumonia. Electronically Signed: Marivel Smart MD at 8:59 EST , Service support , Chest CT 02/20/19 09:52 IMPRESSION: 1. Bilateral lower lobe airspace consolidations, atelectasis and pleural effusions likely secondary to pneumonia. 2. Emphysematous changes and subcortical pulmonary fibrosis. 3. Nonspecific pathologic mediastinal lymphadenopathy. Electronically Signed: Marivel Smart MD at 11:06 EST , Service support , Brain CT 02/25/19 09:08 IMPRESSION: No acute intracranial process. Electronically Signed: Mac Hardin MD at 13:44 EST Tel , Service support , Chest CT 02/25/19 09:09 IMPRESSION: 1. Bilateral lower lobes infiltrates worse on the left side could be due to pneumonia. 2. Small bilateral pleural effusions. 3. Prominent mediastinal nodes likely reactive. Electronically Signed: Mac Hardin MD at 13:49 EST Tel , Service support , Videofluoroscopic Swallow 03/03/19 00:00 IMPRESSION: Mild vestibular penetration and mild vilma silent aspiration during nectar thick straw phase. Fluoroscopy services provided for clinical procedure. Please refer to operating physician''s procedure note for additional detail. The swallow study findings were discussed with the patient by the speech pathologist at the conclusion of the examination. Please see speech pathology report for more information and recommendations. Electronically Signed: Aung Finnegan MD at 14:27 EST , Service support , Current Medications Acetaminophen (Tylenol Liquid) 650 mg PO Q6H PRN PRN PRN Reason: Pain 1-3/10 or Fever >100.7 Apixaban (Eliquis) 5 mg PO BID [facility] Last Admin: 03/04/19 00:00 Dose: 5 mg Documented by: Aspirin (Aspirin, Baby) 81 mg PO DAILY@0800 [facility] Last Admin: 03/03/19 08:21 Dose: 81 mg Documented by: Atorvastatin Calcium (Lipitor) 80 mg PO QHS [facility] Last Admin: 03/03/19 23:59 Dose: 80 mg Documented by: Chlorhexidine Gluconate () 1 each TOPICAL DAILY [facility] Last Admin: 03/03/19 04:08 Dose: 1 each Documented by: Clopidogrel Bisulfate (Plavix) 75 mg PO DAILY [facility] Last Admin: 03/03/19 10:36 Dose: 75 mg Documented by: Famotidine (Pepcid) 20 mg PO DAILY [facility] Last Admin: 03/03/19 10:34 Dose: 20 mg Documented by: Fenofibrate (Tricor) 145 mg PO DAILY [facility] Last Admin: 03/03/19 10:36 Dose: 145 mg Documented by: Glucagon () 1 mg IM .X1 PRN PRN Reason: Hypoglycemia Haloperidol Lactate (Haldol) 3 mg IV Q4H PRN PRN PRN Reason: AGITATION Last Admin: 03/03/19 23:56 Dose: 3 mg Documented by: Sodium Chloride () 250 mls @ 15 mls/hr IV .[id number] PRN PRN Reason: Saline Flush Last Infusion: 03/02/19 14:13 Dose: 0 mls/hr Documented by: Sodium Chloride () 250 mls @ 15 mls/hr IV .[id number] PRN PRN Reason: Additional IVPB Infusion Dextrose (Dextrose 10%-Water) 250 mls @ 999 mls/hr IV .Q16M PRN; Protocol PRN Reason: HYPOGLYCEMIA Levetiracetam 500 mg/ Sodium (Chloride) 105 mls @ 400 mls/hr IV Q12 [facility] Last Infusion: 03/04/19 00:25 Dose: Infused Documented by: Ipratropium [place] (Atrovent) 0.5 mg INHALATION Q4H.RT [facility] Last Admin: 03/04/19 03:15 Dose: Not Given Documented by: Losartan Potassium (Cozaar) 25 mg PO DAILY [facility] Last Admin: 03/03/19 10:35 Dose: 25 mg Documented by: Metoprolol Tartrate (Lopressor (Beta Tata)) 25 mg PO BID [facility] Last Admin: 03/03/19 23:58 Dose: 25 mg Documented by: Metoprolol Tartrate (Lopressor (Beta Tata)) 5 mg IV Q6 PRN PRN Reason: BLOOD PRESSURE ELEVATION Nicotine (Nicoderm Cq (Pbkc)) 21 mg TRANSDERM. DAILY [facility] Last Admin: 03/03/19 10:34 Dose: 21 mg Documented by: Nitroglycerin (Nitrostat) 0.4 mg SUBLINGUAL Q5M PRN PRN Reason: CHEST Polyethylene Glycol (Miralax) 17 gm PO DAILY PRN PRN Reason: Constipation Potassium Chloride (K-Dur) 20 meq PO BIDCM [facility] Last Admin: 03/03/19 17:09 Dose: 20 meq Documented by: Prednisone () 40 mg PO DAILY@0800 [facility] Last Admin: 03/03/19 08:21 Dose: 40 mg Documented by: Quetiapine Fumarate (Seroquel) 100 mg PO BID [facility] Last Admin: 03/03/19 23:58 Dose: 100 mg Documented by: Sodium Chloride () 10 - 40 ml IV UD PRN PRN Reason: SALINE FLUSH Last Admin: 03/03/19 23:56 Dose: 10 ml Documented by: Medical Necessity - Tobacco Use Smoking Status: Former smoker Tobacco Use: Cigarettes Assessment/Plan All Active Problems (Last Updated 03/02/19 @ 11:33 by Mercy Dupree) Lower respiratory infection (Acute) Acute respiratory failure with hypoxia and hypercapnia (Acute) Pneumonia (Acute) Sepsis (Acute) Pulmonary embolism (Acute) Cholelithiasis NOS (Acute) Acute respiratory failure with hypoxia and hypercapnia (Acute) COPD with acute exacerbation (Acute) Gram-negative pneumonia (Acute) Acute hypercapnic respiratory failure (Acute) NSTEMI (non-ST elevated myocardial infarction) (Acute) COPD exacerbation (Acute) RECOMMENDATIONS: 1. Continue Eliquis. 2. Continue bronchodilators and steroids. Recommend slow prednisone taper at discharge. 3. Wean supplemental oxygen as tolerated. 4. Encourage incentive spirometer use and mobilize patient as tolerated. 5. Physical therapy following to assist with disposition planning. IMPRESSIONS: 1. Acute on chronic combined respiratory failure likely secondary to COPD with exacerbation There is clinical concern for underlying community acquired pneumonia as precipitating etiology for the patient's exacerbation. However, it does appear that the patient has some baseline interstitial fibrosis, which was present on prior chest imaging, and appears to have progressed in the interim. Despite the use of noninvasive positive pressure ventilatory support, the patient continued to decompensate from a clinical perspective and did require intubation on the morning of February 20. The patient's sputum culture turned positive for pseudomonas aeruginosa. Following aggressive medical intervention, the patient was able to be successfully extubated. She is currently maintaining appropriate oxygen saturations on minimal supplemental O2. We will plan to continue to wean her oxygen as tolerated. Continue bronchodilators and prednisone. Encourage incentive spirometer use and mobilize patient as tolerated. 2. Septic shock secondary to pseudomonal pneumonia Resolved. Continue current supportive measures with bronchodilators and prednisone. The patient remains hemodynamically stable. She has completed her treatment course of antimicrobials at this time. 3. History of venous thromboembolic disease The patient does have a history of pulmonary emboli, for which she will be continued on Eliquis per outpatient regimen. 4. Troponin elevation/NSTEMI/Acute on Chronic Systolic Heart Failure/Pulmonary Hypertension Although initially felt to be secondary to demand ischemia, a review of the patient's repeat echocardiogram revealed worsening in her LV ejection fraction. Therefore, cardiology was consulted and is currently following to assist with medical management. The patient may require heart catheterization, pending improvement in clinical stability. Will defer management and further work-up to cardiology. 5. Chronic systolic heart failure/pulmonary hypertension Cardiology is currently following to assist with medical management. 6. New onset seizure activity The patient apparently had a witnessed tonic-clonic seizure on 02/23. However, it resolved without intervention. No further seizure activity has been witnessed. 7. Tobacco dependency, currently in remission/hypertension/hyperlipidemia/peripheral vascular disease Complicates care, management, recovery and prognosis. Physical therapy to work with the patient. This note was generated with [employer] dictation software. It may contain incorrect words, spelling, and punctuation that were not noted in checking the note before signing. Code Visit Inpatient E&M: 86995 Subs Hosp L2
[2019-03-04] MEDS: Ipratropium 0.5 MG/2.5 ML SOLUTION INHALATION ×4 (07:07→19:25)
[2019-03-04] MEDS: Aspirin 81 MG TAB.CHEW PO (08:22)
[2019-03-04] MEDS: predniSONE 20 MG Tablet 40 MG PO (08:22)
[2019-03-04] MEDS: Losartan Potassium 25 MG Tablet PO (08:23)
[2019-03-04] MEDS: Metoprolol Tartrate 25 MG Tablet PO ×2 (08:23→21:19)
[2019-03-04] MEDS: CHLORHEXIDINE GLUC 2% CLOTH 1 EACH TOWELETTE TOPICAL (08:23)
[2019-03-04] MEDS: APIXABAN 5 MG TABLET PO ×3 (08:23→21:19)
[2019-03-04] MEDS: QUEtiapine 100 MG Tablet PO ×2 (08:24→21:19)
[2019-03-04] MEDS: Famotidine 20 MG Tablet PO (08:24)
[2019-03-04] MEDS: Fenofibrate 145 MG Tablet PO (08:24)
[2019-03-04] MEDS: Clopidogrel Bisulfate 75 MG Tablet PO (08:24)
--- NOTE | 2019-03-04 08:37 | PN_ITS ---
Patient Problems: Active and Suspected Problems (Last Updated 03/02/19 @ 11:33 by Mercy Dupree) Acute respiratory failure with hypoxia and hypercapnia (Acute) Pneumonia (Acute) Sepsis (Acute) Reason for Visit: Respiratory failure Physical deconditioning Subjective: Patient seen had a relatively uneventful night. Was assessed by PT/OT plan is for patient to undergo further therapy. Case management consulted awaiting placement pending insurance approval. Objective: GENERAL: In no apparent distress HEENT: Atraumatic; EYES; Anicteric, Normal Conjunctiva NECK; supple, normal thyroid, RESPIRATORY: Diminished to auscultation CARDIOVASCULAR: Regular S1 S2, GI: soft, normoactive bowel sounds, : No Renal angle tenderness; EXTREMITIES: No edema, no clubbing, MUSCULOSKELETAL: no muscle waisting NEURO: Awake; no lateralizing signs. SKIN: No Rash PSYCH; Flat affect Vitals/I&O's: Vital Signs Temp Pulse Resp BP Pulse Ox 98.2 F 78 30 H 109/76 100 03/04/19 04:00 03/04/19 08:23 03/04/19 07:10 03/04/19 08:23 03/04/19 07:10 Oxygen Flow Rate (L/min) 3 Oxygen Delivery Method Nasal Cannula Weight: 65.1 kg Body Mass Index (BMI) 26.4 Intake and Output for Last 24 Hours 03/02/19 03/03/19 03/04/19 23:59 23:59 23:59 Intake Total 1361.75 / 1486.75 700 / 850 255 / 255 Output Total 500 / 700 850 / 1100 550 / 550 Balance 861.75 / 786.75 -150 / -250 -295 / -295 Microbiology Past 72 Hours 02/24/19 12:30 Blood Culture (Wb) - Arm Right Blood Culture - Final No growth in 5 days. 02/24/19 10:40 Blood Culture (Wb) - Line Draw Blood Culture - Final No growth in 5 days. Laboratory Results 03/04/19 04:30: WBC 12.4 H, RBC 3.83 L, Hgb 10.5 L, Hct 34.4 L, MCV 89.8, MCH 27.4, MCHC 30.5 L, RDW Std Deviation 57.4 H, RDW Coeff of Abhinav 18.4 H, Plt Count 270, MPV 10.9, Immature Gran % (Auto) 0.800, Neut % (Auto) 70.9 H, Lymph % (Auto) 18.4 L, [place] % (Auto) 7.1, Eos % (Auto) 2.6, Baso % (Auto) 0.2, Absolute Neuts (auto) 8.8 H, Absolute Lymphs (auto) 2.28, Nucleated RBC % 0 03/04/19 04:30: Sodium 145, Potassium 3.9, Chloride 114 H, Carbon Dioxide 27.0, Anion Gap 4 L, BUN 22 H, Creatinine 0.87, Estim Creat Clear Calc 47.64, Est GFR (MDRD) Af Amer 81, Est GFR (MDRD) Non-Af 67, BUN/Creatinine Ratio 25.2 H, Glucose 105, Calcium 8.2 L Current Medications Acetaminophen (Tylenol Liquid) 650 mg PO Q6H PRN PRN PRN Reason: Pain 1-3/10 or Fever >100.7 Apixaban (Eliquis) 5 mg PO BID [facility] Last Admin: 03/04/19 08:23 Dose: 5 mg Documented by: Aspirin (Aspirin, Baby) 81 mg PO DAILY@0800 [facility] Last Admin: 03/04/19 08:22 Dose: 81 mg Documented by: Atorvastatin Calcium (Lipitor) 80 mg PO QHS [facility] Last Admin: 03/03/19 23:59 Dose: 80 mg Documented by: Chlorhexidine Gluconate () 1 each TOPICAL DAILY [facility] Last Admin: 03/04/19 08:23 Dose: 1 each Documented by: Clopidogrel Bisulfate (Plavix) 75 mg PO DAILY [facility] Last Admin: 03/04/19 08:24 Dose: 75 mg Documented by: Famotidine (Pepcid) 20 mg PO DAILY [facility] Last Admin: 03/04/19 08:24 Dose: 20 mg Documented by: Fenofibrate (Tricor) 145 mg PO DAILY [facility] Last Admin: 03/04/19 08:24 Dose: 145 mg Documented by: Glucagon () 1 mg IM .X1 PRN PRN Reason: Hypoglycemia Haloperidol Lactate (Haldol) 3 mg IV Q4H PRN PRN PRN Reason: AGITATION Last Admin: 03/03/19 23:56 Dose: 3 mg Documented by: Sodium Chloride () 250 mls @ 15 mls/hr IV .[id number] PRN PRN Reason: Saline Flush Last Infusion: 03/02/19 14:13 Dose: 0 mls/hr Documented by: Sodium Chloride () 250 mls @ 15 mls/hr IV .[id number] PRN PRN Reason: Additional IVPB Infusion Dextrose (Dextrose 10%-Water) 250 mls @ 999 mls/hr IV .Q16M PRN; Protocol PRN Reason: HYPOGLYCEMIA Levetiracetam 500 mg/ Sodium (Chloride) 105 mls @ 400 mls/hr IV Q12 [facility] Last Infusion: 03/04/19 00:25 Dose: Infused Documented by: Ipratropium [place] (Atrovent) 0.5 mg INHALATION Q4H.RT [facility] Last Admin: 03/04/19 07:07 Dose: 0.5 mg Documented by: Losartan Potassium (Cozaar) 25 mg PO DAILY [facility] Last Admin: 03/04/19 08:23 Dose: 25 mg Documented by: Metoprolol Tartrate (Lopressor (Beta Tata)) 25 mg PO BID [facility] Last Admin: 03/04/19 08:23 Dose: 25 mg Documented by: Metoprolol Tartrate (Lopressor (Beta Tata)) 5 mg IV Q6 PRN PRN Reason: BLOOD PRESSURE ELEVATION Nicotine (Nicoderm Cq (Pbkc)) 21 mg TRANSDERM. DAILY [facility] Last Admin: 03/04/19 08:23 Dose: 21 mg Documented by: Nitroglycerin (Nitrostat) 0.4 mg SUBLINGUAL Q5M PRN PRN Reason: CHEST Polyethylene Glycol (Miralax) 17 gm PO DAILY PRN PRN Reason: Constipation Potassium Chloride (K-Dur) 20 meq PO BIDCM [facility] Last Admin: 03/04/19 08:22 Dose: 20 meq Documented by: Prednisone () 40 mg PO DAILY@0800 [facility] Last Admin: 03/04/19 08:22 Dose: 40 mg Documented by: Quetiapine Fumarate (Seroquel) 100 mg PO BID [facility] Last Admin: 03/04/19 08:24 Dose: 100 mg Documented by: Sodium Chloride () 10 - 40 ml IV UD PRN PRN Reason: SALINE FLUSH Last Admin: 03/03/19 23:56 Dose: 10 ml Documented by: STROKE Vital Signs/Narrative: Vital Signs Pulse Resp BP Pulse Ox 03/04/19 08:23 78 109/76 03/04/19 07:39 83 03/04/19 07:10 81 30 H 100 Medical Necessity - Tobacco Use Smoking Status: Former smoker Tobacco Use: Cigarettes Assessment/Plan All Active Problems (Last Updated 03/02/19 @ 11:33 by Mercy Dupree) Lower respiratory infection (Acute) Acute respiratory failure with hypoxia and hypercapnia (Acute) Pneumonia (Acute) Sepsis (Acute) Pulmonary embolism (Acute) Cholelithiasis NOS (Acute) Acute respiratory failure with hypoxia and hypercapnia (Acute) COPD with acute exacerbation (Acute) Gram-negative pneumonia (Acute) Acute hypercapnic respiratory failure (Acute) NSTEMI (non-ST elevated myocardial infarction) (Acute) COPD exacerbation (Acute) Patient is a 73-year-old lady with history of severe interstitial fibrosis admitted with progressive shortness of breath patient was intubated due to worsening respiratory status weaned off the vent on 03/01/2019. 1. Acute on chronic hypoxic respiratory failure ?Secondary to COPD exacerbation as well as Pseudomonas pneumonia. Patient was managed with mechanical ventilation weaned off the vent on 03/01/2019 ?03/03/2019: Patient seen breathing continues to improve ?03/04/2019 had a relatively uneventful night. 2. Dysphagia Secondary to prolonged intubation patient did fail swallow eval on 03/01/2019 scheduled to undergo repeat evaluation on 03/02/2019 ?03/03/2019 patient did pass her speech and swallow eval subsequently started on oral diet 3. Seizure ?This was felt to be secondary to possible serotonin syndrome patient was previously on Precedex Seroquel bupropion and paroxetine the suspected offending medications held being managed with Keppra IV with plans to switch to p.o. once she passes a speech and swallow eval 4. Acute on chronic systolic heart failure with reduced ejection fraction ?EF 20% has been managed with Lasix which was held following episodes of hypotension 5. Acute non-STEMI ?Patient has previous history of CAD with subsequent stent placement was seen in consultation by cardiology recommendation is to manage with medical therapy only at this point 6. Essential hypertension ?Antihypertensives placed on hold following episodes of hypotension 7. History of DVT ?Patient is on Eliquis 8. Tobacco dependence ?Counseled on cessation, offered nicotine patch for tobacco cravings 9. Hypokalemia ?Corrected per protocol 10. Physical deconditioning ?Requested for PT OT eval and treatment and social services counselor to assist with discharge planning. 03/04/2019; awaiting insurance preset prior to transfer to care home facility Code Visit Inpatient E&M: 08303 Subs Hosp L2
[2019-03-04] MEDS: 0.9% Saline Lock 10 ML Syringe IV ×2 (14:20→18:42)
[2019-03-04] MEDS: Haloperidol Lactate 5 MG/ML Vial 3 MG IV ×2 (14:20→18:42)
[2019-03-04] MEDS: Atorvastatin Calcium 80 MG Tablet PO (21:19)
[2019-03-05] VITALS (19 sets, daily range): BP systolic 122–137; BP diastolic 53–99; PULSE 74–104; RESP 18–30; TEMP 36.7–37; O2SAT 91–100
[2019-03-05 04:06] LABS: Absolute Lymphocyte Count 2.63 X10^3/uL (0.83-4.51); Absolute Neutrophil Count 9.5 X10^3/uL (2.0-7.7); Basophil# 0.03 X10^3/uL; Basophil% 0.2 % (0-1); Eosinophil# 0.36 X10^3/uL; Eosinophils% 2.7 % (0-5); Hematocrit 33.8 % (37-47); Hemoglobin 10.1 g/dL (12.0-15.0); Lymphocyte # 2.63 X10^3/ul (4.0); Lymphocyte % 19.4 % (19-41); Mean Corp Hgb Conc 29.9 g/dL (32-36); Mean Corpuscular Hgb 27.1 pg (27.0-32.0); Mean Corpuscular Volume 90.6 fL (81-99); Mean Platelet Vol. 10.7 fl (6.2-12.0); Monocyte# 0.97 X10^3/uL; Monocyte% 7.2 % (0-10); NRBC Flagged by Analyzer 0 % (0-5); Neutrophil # 9.49 X10^3/uL (2.7-7.7); Neutrophil % 69.9 % (47-70); Platelet Count 264 K/mm3 (150-450); RBC Distribution Width CV 18.3 % (11.6-14.6); RBC Distribution Width SD 58.6 fl (35.1-43.9); Red Blood Count 3.73 M/mm3 (4.2-5.4); White Blood Count 13.6 K/mm3 (4.4-11.0)
[2019-03-05 04:13] LABS: Anion Gap 6 (5-15); BUN 23 mg/dL (7-18); Calcium,Total 8.1 mg/dL (8.5-10.1); Chloride 114 mmol/L (98-107); Creatinine, Serum 0.79 mg/dL (0.55-1.02); EST Glomerular Filtration Rate 75 mL/min (>60); Est Glom Filt Rate - Afr Amer 91 mL/min (>60); Estimated Creatinine Clearance 41.45 ml/min; Glucose 82 mg/dL (74-106); Potassium 3.6 mmol/L (3.5-5.1); Sodium Level 146 mmol/L (136-145)
--- NOTE | 2019-03-05 06:25 | PN_ITS ---
Patient Problems: Active and Suspected Problems (Last Updated 03/02/19 @ 11:33 by Mercy Dupree) Acute respiratory failure with hypoxia and hypercapnia (Acute) Pneumonia (Acute) Sepsis (Acute) Subjective: The patient was seen and examined at the bedside this morning. Events from the last 24 hours have been reviewed. The patient is currently afebrile, hemodynamically stable and maintaining appropriate oxygen saturations on 2 L/min via nasal cannula. Patient is more pleasant this morning. Disposition planning to jail facility is pending. Objective: The patient's most recent lab work, culture data and imaging studies have all been personally reviewed. CT chest without contrast did reveal bilateral lower lobe airspace disease with associated atelectasis and dependent pleural effusions. The patient does have significant upper lobe predominant emphysematous changes. Unfortunately, evaluation of the patient's lower lobes for interstitial lung disease was obscured by the aforementioned airspace opacities. Surface echocardiogram revealed moderately severe segmental systolic dysfunction with an ejection fraction of 20%. Pulmonary artery systolic pressure was estimated to be 52 mmHg. Strep and urine Legionella antigens were negative. Respiratory viral panel was negative. Sputum culture was positive for pseudomonas aeruginosa, which was pansensitive. - Physical Exam Vitals/I&O's: Vital Signs Temp Pulse Resp BP Pulse Ox 98.6 F 74 18 122/57 H 100 03/05/19 02:00 03/05/19 03:23 03/05/19 02:00 03/05/19 02:00 03/05/19 02:00 Oxygen Flow Rate (L/min) 2 Oxygen Delivery Method Nasal Cannula Weight: 141 lb 8.588 oz Body Mass Index (BMI) 26.4 Intake and Output for Last 24 Hours 03/03/19 03/04/19 03/05/19 23:59 23:59 23:59 Intake Total 700 / 850 626.75 / 626.75 480 / 480 Output Total 850 / 1100 700 / 700 Balance -150 / -250 -73.25 / -73.25 480 / 480 General: Alert, No apparent distress HEENT: Atraumatic, Normocephalic Oral: No Gingival or Mucosal Lesions/ Ulcerations Neck: Supple, No Nodes, Trachea Midline Lungs: No rhonchi, No wheeze, No rales, Diminished Cardiovascular: Regular rate, Regular Rhythm, Normal S1, Normal S2, No murmurs Abdomen: Bowel Sounds Present, Soft, Non Tender Extremities: No cyanosis, Clubbing Skin: No breakdown Musculoskeletal: No Tenderness to Palpation of Joints or Extremities Lymphatic: No Cervical, Supraclavicular, or Inguinal Adenopathy Neurological: Neuro grossly intact Psych/Mental Status: Appropriate Labs (Last 48 Hours) 03/04/19 03/04/19 03/05/19 04:30 04:30 03:15 WBC 12.4 H 13.6 H RBC 3.83 L 3.73 L Hgb 10.5 L 10.1 L Hct 34.4 L 33.8 L MCV 89.8 90.6 MCH 27.4 27.1 MCHC 30.5 L 29.9 L RDW Std Deviation 57.4 H 58.6 H RDW Coeff of Abhinav 18.4 H 18.3 H Plt Count 270 264 MPV 10.9 10.7 Immature Gran % (Auto) 0.800 0.600 Neut % (Auto) 70.9 H 69.9 Lymph % (Auto) 18.4 L 19.4 [place] % (Auto) 7.1 7.2 Eos % (Auto) 2.6 2.7 Baso % (Auto) 0.2 0.2 Absolute Neuts (auto) 8.8 H 9.5 H Absolute Lymphs (auto) 2.28 2.63 Nucleated RBC % 0 0 Sodium 145 Potassium 3.9 Chloride 114 H Carbon Dioxide 27.0 Anion Gap 4 L BUN 22 H Creatinine 0.87 Estim Creat Clear Calc 47.64 Est GFR (MDRD) Af Amer 81 Est GFR (MDRD) Non-Af 67 BUN/Creatinine Ratio 25.2 H Glucose 105 Calcium 8.2 L 03/05/19 03:15 WBC RBC Hgb Hct MCV MCH MCHC RDW Std Deviation RDW Coeff of Abhinav Plt Count MPV Immature Gran % (Auto) Neut % (Auto) Lymph % (Auto) [place] % (Auto) Eos % (Auto) Baso % (Auto) Absolute Neuts (auto) Absolute Lymphs (auto) Nucleated RBC % Sodium 146 H Potassium 3.6 Chloride 114 H Carbon Dioxide 26.0 Anion Gap 6 BUN 23 H Creatinine 0.79 Estim Creat Clear Calc 41.45 Est GFR (MDRD) Af Amer 91 Est GFR (MDRD) Non-Af 75 BUN/Creatinine Ratio 29.0 H Glucose 82 Calcium 8.1 L Clinical Impression(s) from Imaging Studies Chest X-Ray 02/19/19 06:05 IMPRESSION: Bilateral lower airspace disease superimposed upon moderately severe pulmonary fibrosis. Differential considerations include bronchitis versus pneumonia. Electronically Signed: Marivel Smart MD at 6:39 EST , Service support , Chest X-Ray 02/20/19 06:35 IMPRESSION: Stable bilateral interstitial pulmonary infiltrates with pulmonary scarring and likely pulmonary fibrosis; there may be acute infiltrates or pulmonary venous congestion in addition to the chronic interstitial fibrotic changes and/or progression of pulmonary fibrosis with no change when compared to most recent chest radiograph Upper lobe COPD changes Ill-defined 8 mm density right upper lobe scar versus pulmonary lesion CT chest follow-up recommended Electronically Signed: Mohsen Zhong at 7:15 EST Tel , Service support , KUB X-Ray 02/20/19 07:17 IMPRESSION: Appropriate positioning of enteric tube with the tip probably in the stomach. Electronically Signed: Marivel Smart MD at 9:42 EST , Service support , Chest X-Ray 02/20/19 07:40 IMPRESSION: 1. Appropriate positioning of endotracheal tube. 2. Heterogeneous bilateral basilar interstitial and air space consolidations may represent pneumonia. Electronically Signed: Marivel Smart MD at 8:59 EST , Service support , Chest CT 02/20/19 09:52 IMPRESSION: 1. Bilateral lower lobe airspace consolidations, atelectasis and pleural effusions likely secondary to pneumonia. 2. Emphysematous changes and subcortical pulmonary fibrosis. 3. Nonspecific pathologic mediastinal lymphadenopathy. Electronically Signed: Marivel Smart MD at 11:06 EST , Service support , Brain CT 02/25/19 09:08 IMPRESSION: No acute intracranial process. Electronically Signed: Mac Hardin MD at 13:44 EST Tel , Service support , Chest CT 02/25/19 09:09 IMPRESSION: 1. Bilateral lower lobes infiltrates worse on the left side could be due to pneumonia. 2. Small bilateral pleural effusions. 3. Prominent mediastinal nodes likely reactive. Electronically Signed: Mac Hardin MD at 13:49 EST Tel , Service support , Videofluoroscopic Swallow 03/03/19 00:00 IMPRESSION: Mild vestibular penetration and mild vilma silent aspiration during nectar thick straw phase. Fluoroscopy services provided for clinical procedure. Please refer to operating physician''s procedure note for additional detail. The swallow study findings were discussed with the patient by the speech pathologist at the conclusion of the examination. Please see speech pathology report for more information and recommendations. Electronically Signed: Aung Finnegan MD at 14:27 EST , Service support , Current Medications Acetaminophen (Tylenol Liquid) 650 mg PO Q6H PRN PRN PRN Reason: Pain 1-3/10 or Fever >100.7 Apixaban (Eliquis) 5 mg PO BID [facility] Last Admin: 03/04/19 21:19 Dose: 5 mg Documented by: Aspirin (Aspirin, Baby) 81 mg PO DAILY@0800 [facility] Last Admin: 03/04/19 08:22 Dose: 81 mg Documented by: Atorvastatin Calcium (Lipitor) 80 mg PO QHS [facility] Last Admin: 03/04/19 21:19 Dose: 80 mg Documented by: Chlorhexidine Gluconate () 1 each TOPICAL DAILY [facility] Last Admin: 03/04/19 08:23 Dose: 1 each Documented by: Clopidogrel Bisulfate (Plavix) 75 mg PO DAILY [facility] Last Admin: 03/04/19 08:24 Dose: 75 mg Documented by: Famotidine (Pepcid) 20 mg PO DAILY [facility] Last Admin: 03/04/19 08:24 Dose: 20 mg Documented by: Fenofibrate (Tricor) 145 mg PO DAILY [facility] Last Admin: 03/04/19 08:24 Dose: 145 mg Documented by: Glucagon () 1 mg IM .X1 PRN PRN Reason: Hypoglycemia Haloperidol Lactate (Haldol) 3 mg IV Q4H PRN PRN PRN Reason: AGITATION Last Admin: 03/04/19 18:42 Dose: 3 mg Documented by: Sodium Chloride () 250 mls @ 15 mls/hr IV .[id number] PRN PRN Reason: Saline Flush Last Infusion: 03/04/19 22:41 Dose: 0 mls/hr Documented by: Sodium Chloride () 250 mls @ 15 mls/hr IV .[id number] PRN PRN Reason: Additional IVPB Infusion Dextrose (Dextrose 10%-Water) 250 mls @ 999 mls/hr IV .Q16M PRN; Protocol PRN Reason: HYPOGLYCEMIA Levetiracetam 500 mg/ Sodium (Chloride) 105 mls @ 400 mls/hr IV Q12 [facility] Last Infusion: 03/04/19 21:54 Dose: Infused Documented by: Ipratropium [place] (Atrovent) 0.5 mg INHALATION Q4H.RT [facility] Last Admin: 03/04/19 19:25 Dose: 0.5 mg Documented by: Losartan Potassium (Cozaar) 25 mg PO DAILY [facility] Last Admin: 03/04/19 08:23 Dose: 25 mg Documented by: Metoprolol Tartrate (Lopressor (Beta Tata)) 25 mg PO BID [facility] Last Admin: 03/04/19 21:19 Dose: 25 mg Documented by: Metoprolol Tartrate (Lopressor (Beta Tata)) 5 mg IV Q6 PRN PRN Reason: BLOOD PRESSURE ELEVATION Nicotine (Nicoderm Cq (Pbkc)) 21 mg TRANSDERM. DAILY [facility] Last Admin: 03/04/19 08:23 Dose: 21 mg Documented by: Nitroglycerin (Nitrostat) 0.4 mg SUBLINGUAL Q5M PRN PRN Reason: CHEST Polyethylene Glycol (Miralax) 17 gm PO DAILY PRN PRN Reason: Constipation Potassium Chloride (K-Dur) 20 meq PO BIDCM [facility] Last Admin: 03/04/19 16:23 Dose: 20 meq Documented by: Prednisone () 40 mg PO DAILY@0800 [facility] Last Admin: 03/04/19 08:22 Dose: 40 mg Documented by: Quetiapine Fumarate (Seroquel) 100 mg PO BID [facility] Last Admin: 03/04/19 21:19 Dose: 100 mg Documented by: Sodium Chloride () 10 - 40 ml IV UD PRN PRN Reason: SALINE FLUSH Last Admin: 03/04/19 18:42 Dose: 10 ml Documented by: Medical Necessity - Tobacco Use Smoking Status: Former smoker Tobacco Use: Cigarettes Assessment/Plan All Active Problems (Last Updated 03/02/19 @ 11:33 by Mercy Dupree) Lower respiratory infection (Acute) Acute respiratory failure with hypoxia and hypercapnia (Acute) Pneumonia (Acute) Sepsis (Acute) Pulmonary embolism (Acute) Cholelithiasis NOS (Acute) Acute respiratory failure with hypoxia and hypercapnia (Acute) COPD with acute exacerbation (Acute) Gram-negative pneumonia (Acute) Acute hypercapnic respiratory failure (Acute) NSTEMI (non-ST elevated myocardial infarction) (Acute) COPD exacerbation (Acute) RECOMMENDATIONS: 1. Continue Eliquis. 2. Continue bronchodilators and steroids. Recommend slow prednisone taper at discharge. 3. Wean supplemental oxygen as tolerated. 4. Encourage incentive spirometer use and mobilize patient as tolerated. 5. Physical therapy following to assist with disposition planning. IMPRESSIONS: 1. Acute on chronic combined respiratory failure likely secondary to COPD with exacerbation There is clinical concern for underlying community acquired pneumonia as precipitating etiology for the patient's exacerbation. However, it does appear that the patient has some baseline interstitial fibrosis, which was present on prior chest imaging, and appears to have progressed in the interim. Despite the use of noninvasive positive pressure ventilatory support, the patient continued to decompensate from a clinical perspective and did require intubation on the morning of February 20. The patient's sputum culture turned positive for pseudomonas aeruginosa. Following aggressive medical intervention, the patient was able to be successfully extubated. She is currently maintaining appropriate oxygen saturations on minimal supplemental O2. We will plan to continue to wean her oxygen as tolerated. Continue bronchodilators and prednisone. Encourage incentive spirometer use and mobilize patient as tolerated. 2. Septic shock secondary to pseudomonal pneumonia Resolved. Continue current supportive measures with bronchodilators and prednisone. The patient remains hemodynamically stable. She has completed her treatment course of antimicrobials at this time. 3. History of venous thromboembolic disease The patient does have a history of pulmonary emboli, for which she will be continued on Eliquis per outpatient regimen. 4. Troponin elevation/NSTEMI/Acute on Chronic Systolic Heart Failure/Pulmonary Hypertension Although initially felt to be secondary to demand ischemia, a review of the patient's repeat echocardiogram revealed worsening in her LV ejection fraction. Therefore, cardiology was consulted and is currently following to assist with medical management. The patient may require heart catheterization, pending improvement in clinical stability. Will defer management and further work-up to cardiology. 5. Chronic systolic heart failure/pulmonary hypertension Cardiology is currently following to assist with medical management. 6. New onset seizure activity The patient apparently had a witnessed tonic-clonic seizure on 02/23. However, it resolved without intervention. No further seizure activity has been witnessed. 7. Tobacco dependency, currently in remission/hypertension/hyperlipidemia/peripheral vascular disease Complicates care, management, recovery and prognosis. Physical therapy to work with the patient. This note was generated with [employer] dictation software. It may contain incorrect words, spelling, and punctuation that were not noted in checking the note before signing. Code Visit Inpatient E&M: 58069 Subs Hosp L2
[2019-03-05] MEDS: Ipratropium 0.5 MG/2.5 ML SOLUTION INHALATION ×4 (07:08→19:53)
--- NOTE | 2019-03-05 07:22 | PN_ITS ---
Patient Problems: Active and Suspected Problems (Last Updated 03/02/19 @ 11:33 by Mercy Dupree) Acute respiratory failure with hypoxia and hypercapnia (Acute) Pneumonia (Acute) Sepsis (Acute) Reason for Visit: Follow-up physical deconditioning Subjective: Seen had a relatively uneventful night. Awaiting placement to detention facility. Objective: GENERAL: In no apparent distress HEENT: Atraumatic; EYES; Anicteric, Normal Conjunctiva NECK; supple, normal thyroid, RESPIRATORY: Diminished to auscultation CARDIOVASCULAR: Regular S1 S2, GI: soft, normoactive bowel sounds, : No Renal angle tenderness; EXTREMITIES: No edema, no clubbing, MUSCULOSKELETAL: no muscle waisting NEURO: Awake; no lateralizing signs. SKIN: No Rash PSYCH; Flat affect Vitals/I&O's: Vital Signs Temp Pulse Resp BP Pulse Ox 98.6 F 70 28 H 122/57 H 100 03/05/19 02:00 03/05/19 07:08 03/05/19 07:08 03/05/19 02:00 03/05/19 07:08 Oxygen Flow Rate (L/min) 2 Oxygen Delivery Method Nasal Cannula Weight: 64.2 kg Body Mass Index (BMI) 26.4 Intake and Output for Last 24 Hours 03/03/19 03/04/19 03/05/19 23:59 23:59 23:59 Intake Total 700 / 850 626.75 / 626.75 480 / 480 Output Total 850 / 1100 700 / 700 Balance -150 / -250 -73.25 / -73.25 480 / 480 Laboratory Results 03/05/19 03:15: WBC 13.6 H, RBC 3.73 L, Hgb 10.1 L, Hct 33.8 L, MCV 90.6, MCH 27.1, MCHC 29.9 L, RDW Std Deviation 58.6 H, RDW Coeff of Abhinav 18.3 H, Plt Count 264, MPV 10.7, Immature Gran % (Auto) 0.600, Neut % (Auto) 69.9, Lymph % (Auto) 19.4, [place] % (Auto) 7.2, Eos % (Auto) 2.7, Baso % (Auto) 0.2, Absolute Neuts (auto) 9.5 H, Absolute Lymphs (auto) 2.63, Nucleated RBC % 0 03/05/19 03:15: Sodium 146 H, Potassium 3.6, Chloride 114 H, Carbon Dioxide 26.0, Anion Gap 6, BUN 23 H, Creatinine 0.79, Estim Creat Clear Calc 41.45, Est GFR (MDRD) Af Amer 91, Est GFR (MDRD) Non-Af 75, BUN/Creatinine Ratio 29.0 H, Glucose 82, Calcium 8.1 L Current Medications Acetaminophen (Tylenol Liquid) 650 mg PO Q6H PRN PRN PRN Reason: Pain 1-310 or Fever >100.7 Apixaban (Eliquis) 5 mg PO BID [facility] Last Admin: 03/04/19 21:19 Dose: 5 mg Documented by: Aspirin (Aspirin, Baby) 81 mg PO DAILY@0800 [facility] Last Admin: 03/04/19 08:22 Dose: 81 mg Documented by: Atorvastatin Calcium (Lipitor) 80 mg PO QHS [facility] Last Admin: 03/04/19 21:19 Dose: 80 mg Documented by: Chlorhexidine Gluconate () 1 each TOPICAL DAILY [facility] Last Admin: 03/04/19 08:23 Dose: 1 each Documented by: Clopidogrel Bisulfate (Plavix) 75 mg PO DAILY [facility] Last Admin: 03/04/19 08:24 Dose: 75 mg Documented by: Famotidine (Pepcid) 20 mg PO DAILY [facility] Last Admin: 03/04/19 08:24 Dose: 20 mg Documented by: Fenofibrate (Tricor) 145 mg PO DAILY [facility] Last Admin: 03/04/19 08:24 Dose: 145 mg Documented by: Glucagon () 1 mg IM .X1 PRN PRN Reason: Hypoglycemia Haloperidol Lactate (Haldol) 3 mg IV Q4H PRN PRN PRN Reason: AGITATION Last Admin: 03/04/19 18:42 Dose: 3 mg Documented by: Sodium Chloride () 250 mls @ 15 mls/hr IV .[id number] PRN PRN Reason: Saline Flush Last Infusion: 03/04/19 22:41 Dose: 0 mls/hr Documented by: Sodium Chloride () 250 mls @ 15 mls/hr IV .[id number] PRN PRN Reason: Additional IVPB Infusion Dextrose (Dextrose 10%-Water) 250 mls @ 999 mls/hr IV .Q16M PRN; Protocol PRN Reason: HYPOGLYCEMIA Levetiracetam 500 mg/ Sodium (Chloride) 105 mls @ 400 mls/hr IV Q12 [facility] Last Infusion: 03/04/19 21:54 Dose: Infused Documented by: Ipratropium [place] (Atrovent) 0.5 mg INHALATION Q4H.RT [facility] Last Admin: 03/05/19 07:08 Dose: 0.5 mg Documented by: Losartan Potassium (Cozaar) 25 mg PO DAILY [facility] Last Admin: 03/04/19 08:23 Dose: 25 mg Documented by: Metoprolol Tartrate (Lopressor (Beta Tata)) 25 mg PO BID [facility] Last Admin: 03/04/19 21:19 Dose: 25 mg Documented by: Metoprolol Tartrate (Lopressor (Beta Tata)) 5 mg IV Q6 PRN PRN Reason: BLOOD PRESSURE ELEVATION Nicotine (Nicoderm Cq (Pbkc)) 21 mg TRANSDERM. DAILY [facility] Last Admin: 03/04/19 08:23 Dose: 21 mg Documented by: Nitroglycerin (Nitrostat) 0.4 mg SUBLINGUAL Q5M PRN PRN Reason: CHEST Polyethylene Glycol (Miralax) 17 gm PO DAILY PRN PRN Reason: Constipation Potassium Chloride (K-Dur) 20 meq PO BIDCM [facility] Last Admin: 03/04/19 16:23 Dose: 20 meq Documented by: Prednisone () 40 mg PO DAILY@0800 [facility] Last Admin: 03/04/19 08:22 Dose: 40 mg Documented by: Quetiapine Fumarate (Seroquel) 100 mg PO BID [facility] Last Admin: 03/04/19 21:19 Dose: 100 mg Documented by: Sodium Chloride () 10 - 40 ml IV UD PRN PRN Reason: SALINE FLUSH Last Admin: 03/04/19 18:42 Dose: 10 ml Documented by: STROKE Vital Signs/Narrative: Vital Signs Pulse Resp Pulse Ox 03/05/19 07:08 70 28 H 100 03/05/19 03:23 74 Medical Necessity - Tobacco Use Smoking Status: Former smoker Tobacco Use: Cigarettes Assessment/Plan All Active Problems (Last Updated 03/02/19 @ 11:33 by Mercy Dupree) Lower respiratory infection (Acute) Acute respiratory failure with hypoxia and hypercapnia (Acute) Pneumonia (Acute) Sepsis (Acute) Pulmonary embolism (Acute) Cholelithiasis NOS (Acute) Acute respiratory failure with hypoxia and hypercapnia (Acute) COPD with acute exacerbation (Acute) Gram-negative pneumonia (Acute) Acute hypercapnic respiratory failure (Acute) NSTEMI (non-ST elevated myocardial infarction) (Acute) COPD exacerbation (Acute) Patient is a 73-year-old lady with history of severe interstitial fibrosis admitted with progressive shortness of breath patient was intubated due to worsening respiratory status weaned off the vent on 03/01/2019. 1. Acute on chronic hypoxic respiratory failure ?Secondary to COPD exacerbation as well as Pseudomonas pneumonia. Patient was managed with mechanical ventilation weaned off the vent on 03/01/2019 ?03/03/2019: Patient seen breathing continues to improve ?03/04/2019 had a relatively uneventful night. ?03/05/2019; patient seen awaiting socially responsible investment adviser eval for possible placement to detention facility 2. Dysphagia Secondary to prolonged intubation patient did fail swallow eval on 03/01/2019 scheduled to undergo repeat evaluation on 03/02/2019 ?03/03/2019 patient did pass her speech and swallow eval subsequently started on oral diet 3. Seizure ?This was felt to be secondary to possible serotonin syndrome patient was previously on Precedex Seroquel bupropion and paroxetine the suspected offending medications held being managed with Keppra IV with plans to switch to p.o. once she passes a speech and swallow eval 4. Acute on chronic systolic heart failure with reduced ejection fraction ?EF 20% has been managed with Lasix which was held following episodes of hypotension 5. Acute non-STEMI ?Patient has previous history of CAD with subsequent stent placement was seen in consultation by cardiology recommendation is to manage with medical therapy only at this point 6. Essential hypertension ?Antihypertensives placed on hold following episodes of hypotension 7. History of DVT ?Patient is on Eliquis 8. Tobacco dependence ?Counseled on cessation, offered nicotine patch for tobacco cravings 9. Hypokalemia ?Corrected per protocol 10. Physical deconditioning ?Requested for PT OT eval and treatment and socially responsible investment adviser to assist with discharge planning. 03/04/2019; awaiting insurance preset prior to transfer to detention facility Code Visit Inpatient E&M: 63129 Subs Hosp L2
--- NOTE | 2019-03-05 09:00 | PN.CARD_ITS ---
Subjectve: The patient is awake. She states that she knows the year, where she is at, and what is going on, however, she declines to answer questions specifically with respect to what is the year, where you act, etc. She does not complain of any ongoing chest discomfort or worsening shortness of breath or dyspnea at this time. Objective: Vital Signs Temp Pulse Resp BP Pulse Ox 98.6 F 86 18 122/57 H 100 03/05/19 02:00 03/05/19 07:27 03/05/19 07:08 03/05/19 02:00 03/05/19 07:08 Oxygen Flow Rate (L/min) 2 Oxygen Delivery Method Nasal Cannula Weight: 141 lb 8.588 oz Body Mass Index (BMI) 26.4 Intake and Output for Last 24 Hours 03/03/19 03/04/19 03/05/19 23:59 23:59 23:59 Intake Total 700 / 850 626.75 / 626.75 480 / 480 Output Total 850 / 1100 700 / 700 Balance -150 / -250 -73.25 / -73.25 480 / 480 General: Awake, No Acute Distress HEENT: Atraumatic, Normocephalic, PERRL Oral: Moist Mucosa Neck: Supple, Good ROM, No JVD Lungs: - - No obvious rales or rhonchi Cardiovascular: Regular Rhythm, Normal S1, Normal S2 Abdomen: Bowel Sounds Present, Soft, Non Tender Extremities: No edema 03/05/19 03:15: WBC 13.6 H, RBC 3.73 L, Hgb 10.1 L, Hct 33.8 L, MCV 90.6, MCH 2 7.1, MCHC 29.9 L, Plt Count 264, MPV 10.7, Immature Gran % (Auto) 0.600, Neut % (Auto) 69.9, Lymph % (Auto) 19.4, [place] % (Auto) 7.2, Eos % (Auto) 2.7, Baso % (Auto) 0.2, Absolute Neuts (auto) 9.5 H, Nucleated RBC % 0 03/05/19 03:15: Sodium 146 H, Potassium 3.6, Chloride 114 H, Carbon Dioxide 26.0, Anion Gap 6, BUN 23 H, Creatinine 0.79, Est GFR (MDRD) Af Amer 91, Est GFR (MDRD) Non-Af 75, BUN/Creatinine Ratio 29.0 H, Glucose 82, Calcium 8.1 L Rhythm: Sinus rhythm Medical Necessity - Tobacco Use Smoking Status: Former smoker Tobacco Use: Cigarettes Assessment/Plan 1. CAD status post PCI The patient has a history of underlying CAD status post PCI. At the present time the patient appears to be without acute symptoms. Her previous ECGs demonstrated T wave changes. Her repeat ECG has demonstrated the appearance of progression towards baseline of her previous ST/T wave c hanges. At the moment she is going to continue medical management. 2. Cardiomyopathy The patient was reported during her early hospitalization as having diminished LV systolic function with an estimated LVEF of 20% by transthoracic echocardiogram. Her echocardiogram has been repeated. Her overall LV systolic function has improved with an estimated LVEF of 53%. Thus there are concerns as to whether or not her changing LV systolic function may have been related to her noncardiac illness and potentially a stress-induced type cardiomyopathy. At the moment she appears to be without any acute symptoms of CHF or pulmonary edema. She will continue combined medical therapy as deemed appropriate. 3. Hyperlipidemia The patient will continue medical management as deemed appropriate. 4. Hypertension The patient's blood pressure can be monitored. Her medications can be adjusted as deemed appropriate. 5. COPD The patient does have a history of underlying COPD. She is being followed by internal medicine and pulmonology/critical care medicine. 6. Mental status changes The patient appears to be somewhat disoriented at this time. She will need continued evaluation and care per internal medicine. This note was generated using a voice recognition system and there may be incorrect words, spelling or punctuation that were not noted when reviewing the office note prior to saving.
--- NOTE | 2019-03-05 09:01 | CASEMGMT ---
Addendum entered by Jami Bermeo 03/05/19 13:05: SW spoke w/daughter Lynn, she states she would like referrals sent to [facility]. Lynn has spoken w/pt's daughter Priscilla who is in agreement with this plan. SW called [facility], message left and referral faxed. SW called [facility], spoke w/Thiago and referral faxed. SW will continue to follow. JOSELYN Ellis Addendum entered by Jami Bermeo 03/05/19 10:19: Pt's daughter here, SW spoke w/daughter and pt in room. SW gave daughter this SW's number to call once she has looked at facilities and decided where she would like a referral sent. JOSELYN Ellis Original Note: SW spoke w/Mai who is covering for rehab unit today. At present, there are no beds. Pt also may not be a candidate for rehab at this time. MILE called daughter Lynn, let her know that there are no beds in rehab and pt may not be able to do the full three hours anyway of therapy in rehab. SW asked daughter if she had a chance to look at the usp list. Daughter states she is going to look at the facilities today and will let SW know where she would like a referral sent. JOSELYN Ellis
[2019-03-05] MEDS: 0.9% Saline Lock 10 ML Syringe IV ×3 (10:19→14:27)
[2019-03-05] MEDS: Aspirin 81 MG TAB.CHEW PO (10:20)
[2019-03-05] MEDS: Losartan Potassium 25 MG Tablet PO (10:21)
[2019-03-05] MEDS: predniSONE 20 MG Tablet 40 MG PO (10:21)
[2019-03-05] MEDS: Metoprolol Tartrate 25 MG Tablet PO ×2 (10:22→22:14)
[2019-03-05] MEDS: Famotidine 20 MG Tablet PO (10:23)
[2019-03-05] MEDS: Clopidogrel Bisulfate 75 MG Tablet PO (10:23)
[2019-03-05] MEDS: Fenofibrate 145 MG Tablet PO (10:23)
[2019-03-05] MEDS: QUEtiapine 100 MG Tablet PO ×2 (10:28→22:14)
[2019-03-05] MEDS: APIXABAN 5 MG TABLET PO ×2 (14:27→22:14)
--- NOTE | 2019-03-05 15:39 | CASEMGMT ---
Thiago from [place] called MILE back, asked if they can do an onsite visit. [facility] called back, they can take pt. MILE spoke w/daughter Lynn, asked which facility she preferred. They prefer [facility]. MILE explained will let them know and they will start the precert. MILE called Concepcion back, let her know that the family would like [facility], and she can start precert. MILE called [facility], let Thiago know that pt is going to a different facility. MILE will continue to follow. Plan: [facility] pending precert. JOSELYN Ellis
[2019-03-05] MEDS: Atorvastatin Calcium 80 MG Tablet PO (22:14)
[2019-03-05] MEDS: levETIRAcetam 500 MG Tablet PO (22:19)
[2019-03-06] VITALS (7 sets, daily range): BP systolic 107–126; BP diastolic 35–62; PULSE 76–96; RESP 16–20; TEMP 36.6–36.7; O2SAT 93–100
[2019-03-06] MEDS: Haloperidol Lactate 5 MG/ML Vial 3 MG IV (02:39)
[2019-03-06] MEDS: 0.9% Saline Lock 10 ML Syringe IV (02:42)
--- NOTE | 2019-03-06 03:46 | NURSING ---
Pt set off bed alarm attempting to exit hospital. Pt confused at baseline. Pt sitting at foot of bed dangling feet. Pt yelling at staff who are attempting to de-escalate the situation. Pt increasingly agitated. Pt threw personal cell phone in anger against the wall, breaking phone. Charge nurse to room to try to help pt. Pt attempted to kick charge nurse. Pt removed telemetry and refuses to wear. grease refining supervisor and security to room. This nurse called pts to see if family could come in to be with pt. Pt wants to see family.
--- NOTE | 2019-03-06 04:29 | NURSING ---
Pt daughter arrived to room and sitting with pt. Pt still uncooperative with care. Pt punched side of bed. No visible injuries.
--- NOTE | 2019-03-06 04:39 | NURSING ---
Pt refused to wear O2, SPO2 87% on room air. Pt w/ labored breathing. Pt returned to 91% w/ 2L NC.
--- NOTE | 2019-03-06 07:00 | PCM.PN.PUL ---
Patient Problems: Active and Suspected Problems (Last Updated 03/02/19 @ 11:33 by Mercy Dupree) Acute respiratory failure with hypoxia and hypercapnia (Acute) Pneumonia (Acute) Sepsis (Acute) Subjective: The patient was seen and examined at the bedside this morning. Events from the last 24 hours have been reviewed. The patient is currently afebrile, hemodynamically stable and maintaining appropriate oxygen saturations on 2 L/min. No overnight issues were identified. Breathing quality is stable. Objective: The patient's most recent lab work, culture data and imaging studies have all been personally reviewed. CT chest without contrast did reveal bilateral lower lobe airspace disease with associated atelectasis and dependent pleural effusions. The patient does have significant upper lobe predominant emphysematous changes. Unfortunately, evaluation of the patient's lower lobes for interstitial lung disease was obscured by the aforementioned airspace opacities. Surface echocardiogram revealed moderately severe segmental systolic dysfunction with an ejection fraction of 20%. Pulmonary artery systolic pressure was estimated to be 52 mmHg. Strep and urine Legionella antigens were negative. Respiratory viral panel was negative. Sputum culture was positive for pseudomonas aeruginosa, which was pansensitive. - Physical Exam Vitals/I&O's: Vital Signs Temp Pulse Resp BP Pulse Ox 98.0 F 84 18 126/35 H 94 03/06/19 02:30 03/06/19 04:00 03/06/19 02:30 03/06/19 02:30 03/06/19 02:30 Oxygen Flow Rate (L/min) 2 Oxygen Delivery Method Nasal Cannula Weight: 139 lb 8.842 oz Body Mass Index (BMI) 26.4 Intake and Output for Last 24 Hours 03/04/19 03/05/19 03/06/19 23:59 23:59 23:59 Intake Total 626.75 / 626.75 1185.25 / 1185.25 60 / 60 Output Total 700 / 700 Balance -73.25 / -73.25 1185.25 / 1185.25 60 / 60 General: Alert, Cooperative, No apparent distress HEENT: Atraumatic, Normocephalic Oral: Moist Mucosa Neck: Supple, No Nodes, Trachea Midline Lungs: No rhonchi, No wheeze, No rales, Diminished Cardiovascular: Regular rate, Regular Rhythm, Normal S1, Normal S2, No murmurs Abdomen: Bowel Sounds Present, Soft, Non Tender Extremities: No cyanosis, Clubbing Skin: No breakdown Musculoskeletal: No Tenderness to Palpation of Joints or Extremities Lymphatic: No Cervical, Supraclavicular, or Inguinal Adenopathy Neurological: Neuro grossly intact Labs (Last 48 Hours) 03/05/19 03/05/19 03:15 03:15 WBC 13.6 H RBC 3.73 L Hgb 10.1 L Hct 33.8 L MCV 90.6 MCH 27.1 MCHC 29.9 L RDW Std Deviation 58.6 H RDW Coeff of Abhinav 18.3 H Plt Count 264 MPV 10.7 Immature Gran % (Auto) 0.600 Neut % (Auto) 69.9 Lymph % (Auto) 19.4 Russell % (Auto) 7.2 Eos % (Auto) 2.7 Baso % (Auto) 0.2 Absolute Neuts (auto) 9.5 H Absolute Lymphs (auto) 2.63 Nucleated RBC % 0 Sodium 146 H Potassium 3.6 Chloride 114 H Carbon Dioxide 26.0 Anion Gap 6 BUN 23 H Creatinine 0.79 Estim Creat Clear Calc 41.45 Est GFR (MDRD) Af Amer 91 Est GFR (MDRD) Non-Af 75 BUN/Creatinine Ratio 29.0 H Glucose 82 Calcium 8.1 L Clinical Impression(s) from Imaging Studies Chest X-Ray 02/19/19 06:05 IMPRESSION: Bilateral lower airspace disease superimposed upon moderately severe pulmonary fibrosis. Differential considerations include bronchitis versus pneumonia. Electronically Signed: Marivel Smart MD at 6:39 EST , Service support , Chest X-Ray 02/20/19 06:35 IMPRESSION: Stable bilateral interstitial pulmonary infiltrates with pulmonary scarring and likely pulmonary fibrosis; there may be acute infiltrates or pulmonary venous congestion in addition to the chronic interstitial fibrotic changes and/or progression of pulmonary fibrosis with no change when compared to most recent chest radiograph Upper lobe COPD changes Ill-defined 8 mm density right upper lobe scar versus pulmonary lesion CT chest follow-up recommended Electronically Signed: Mohsen Zhong at 7:15 EST Tel , Service support , KUB X-Ray 02/20/19 07:17 IMPRESSION: Appropriate positioning of enteric tube with the tip probably in the stomach. Electronically Signed: Marivel Smart MD at 9:42 EST , Service support , Chest X-Ray 02/20/19 07:40 IMPRESSION: 1. Appropriate positioning of endotracheal tube. 2. Heterogeneous bilateral basilar interstitial and air space consolidations may represent pneumonia. Electronically Signed: Marivel Smart MD at 8:59 EST , Service support , Chest CT 02/20/19 09:52 IMPRESSION: 1. Bilateral lower lobe airspace consolidations, atelectasis and pleural effusions likely secondary to pneumonia. 2. Emphysematous changes and subcortical pulmonary fibrosis. 3. Nonspecific pathologic mediastinal lymphadenopathy. Electronically Signed: Marivel Smart MD at 11:06 EST , Service support , Brain CT 02/25/19 09:08 IMPRESSION: No acute intracranial process. Electronically Signed: Mac Hardin MD at 13:44 EST Tel , Service support , Chest CT 02/25/19 09:09 IMPRESSION: 1. Bilateral lower lobes infiltrates worse on the left side could be due to pneumonia. 2. Small bilateral pleural effusions. 3. Prominent mediastinal nodes likely reactive. Electronically Signed: Mac Hardin MD at 13:49 EST Tel , Service support , Videofluoroscopic Swallow 03/03/19 00:00 IMPRESSION: Mild vestibular penetration and mild vilma silent aspiration during nectar thick straw phase. Fluoroscopy services provided for clinical procedure. Please refer to operating physician''s procedure note for additional detail. The swallow study findings were discussed with the patient by the speech pathologist at the conclusion of the examination. Please see speech pathology report for more information and recommendations. Electronically Signed: Aung Finnegan MD at 14:27 EST , Service support , Current Medications Acetaminophen (Tylenol Liquid) 650 mg PO Q6H PRN PRN PRN Reason: Pain 1-05/11 or Fever >100.7 Apixaban (Eliquis) 5 mg PO BID [facility] Last Admin: 03/05/19 22:14 Dose: 5 mg Documented by: Aspirin (Aspirin, Baby) 81 mg PO DAILY@0800 [facility] Last Admin: 03/05/19 10:20 Dose: 81 mg Documented by: Atorvastatin Calcium (Lipitor) 80 mg PO QHS [facility] Last Admin: 03/05/19 22:14 Dose: 80 mg Documented by: Clopidogrel Bisulfate (Plavix) 75 mg PO DAILY [facility] Last Admin: 03/05/19 10:23 Dose: 75 mg Documented by: Famotidine (Pepcid) 20 mg PO DAILY [facility] Last Admin: 03/05/19 10:23 Dose: 20 mg Documented by: Fenofibrate (Tricor) 145 mg PO DAILY [facility] Last Admin: 03/05/19 10:23 Dose: 145 mg Documented by: Glucagon () 1 mg IM .X1 PRN PRN Reason: Hypoglycemia Haloperidol Lactate (Haldol) 3 mg IV Q4H PRN PRN PRN Reason: AGITATION Last Admin: 03/06/19 02:39 Dose: 3 mg Documented by: Sodium Chloride () 250 mls @ 15 mls/hr IV .[id number] PRN PRN Reason: Saline Flush Last Infusion: 03/05/19 11:56 Dose: 0 mls/hr Documented by: Sodium Chloride () 250 mls @ 15 mls/hr IV .[id number] PRN PRN Reason: Additional IVPB Infusion Dextrose (Dextrose 10%-Water) 250 mls @ 999 mls/hr IV .Q16M PRN; Protocol PRN Reason: HYPOGLYCEMIA Ipratropium Bostic (Atrovent) 0.5 mg INHALATION Q4H.RT [facility] Last Admin: 03/06/19 02:35 Dose: Not Given Documented by: Levetiracetam (Keppra Tablet) 500 mg PO BID [facility] Last Admin: 03/05/19 22:19 Dose: 500 mg Documented by: Losartan Potassium (Cozaar) 25 mg PO DAILY [facility] Last Admin: 03/05/19 10:21 Dose: 25 mg Documented by: Metoprolol Tartrate (Lopressor (Beta Tata)) 25 mg PO BID [facility] Last Admin: 03/05/19 22:14 Dose: 25 mg Documented by: Metoprolol Tartrate (Lopressor (Beta Tata)) 5 mg IV Q6 PRN PRN Reason: BLOOD PRESSURE ELEVATION Nicotine (Nicoderm Cq (Pbkc)) 21 mg TRANSDERM. DAILY [facility] Last Admin: 03/05/19 10:23 Dose: 21 mg Documented by: Nitroglycerin (Nitrostat) 0.4 mg SUBLINGUAL Q5M PRN PRN Reason: CHEST Polyethylene Glycol (Miralax) 17 gm PO DAILY PRN PRN Reason: Constipation Potassium Chloride (K-Dur) 20 meq PO BIDCM [facility] Last Admin: 03/05/19 17:30 Dose: 20 meq Documented by: Prednisone () 40 mg PO DAILY@0800 [facility] Last Admin: 03/05/19 10:21 Dose: 40 mg Documented by: Quetiapine Fumarate (Seroquel) 100 mg PO BID [facility] Last Admin: 03/05/19 22:14 Dose: 100 mg Documented by: Sodium Chloride () 10 - 40 ml IV UD PRN PRN Reason: SALINE FLUSH Last Admin: 03/06/19 02:42 Dose: 20 ml Documented by: Medical Necessity - Tobacco Use Smoking Status: Former smoker Tobacco Use: Cigarettes Assessment/Plan All Active Problems (Last Updated 03/02/19 @ 11:33 by Mercy Dupree) Lower respiratory infection (Acute) Acute respiratory failure with hypoxia and hypercapnia (Acute) Pneumonia (Acute) Sepsis (Acute) Pulmonary embolism (Acute) Cholelithiasis NOS (Acute) Acute respiratory failure with hypoxia and hypercapnia (Acute) COPD with acute exacerbation (Acute) Gram-negative pneumonia (Acute) Acute hypercapnic respiratory failure (Acute) NSTEMI (non-ST elevated myocardial infarction) (Acute) COPD exacerbation (Acute) RECOMMENDATIONS: 1. Continue Eliquis. 2. Continue bronchodilators and steroids. Recommend slow prednisone taper at discharge. 3. Wean supplemental oxygen as tolerated. 4. Encourage incentive spirometer use and mobilize patient as tolerated. 5. Physical therapy following to assist with disposition planning. 6. Will sign off from a critical care perspective. IMPRESSIONS: 1. Acute on chronic combined respiratory failure likely secondary to COPD with exacerbation There is clinical concern for underlying community acquired pneumonia as precipitating etiology for the patient's exacerbation. However, it does appear that the patient has some baseline interstitial fibrosis, which was present on prior chest imaging, and appears to have progressed in the interim. Despite the use of noninvasive positive pressure ventilatory support, the patient continued to decompensate from a clinical perspective and did require intubation on the morning of February 20. The patient's sputum culture turned positive for pseudomonas aeruginosa. Following aggressive medical intervention, the patient was able to be successfully extubated. She is currently maintaining appropriate oxygen saturations on minimal supplemental O2. We will plan to continue to wean her oxygen as tolerated. Continue bronchodilators and prednisone. Encourage incentive spirometer use and mobilize patient as tolerated. 2. Septic shock secondary to pseudomonal pneumonia Resolved. Continue current supportive measures with bronchodilators and prednisone. The patient remains hemodynamically stable. She has completed her treatment course of antimicrobials at this time. 3. History of venous thromboembolic disease The patient does have a history of pulmonary emboli, for which she will be continued on Eliquis per outpatient regimen. 4. Troponin elevation/NSTEMI/Acute on Chronic Systolic Heart Failure/Pulmonary Hypertension Although initially felt to be secondary to demand ischemia, a review of the patient's repeat echocardiogram revealed worsening in her LV ejection fraction. Therefore, cardiology was consulted and is currently following to assist with medical management. The patient may require heart catheterization, pending improvement in clinical stability. Will defer management and further work-up to cardiology. 5. Chronic systolic heart failure/pulmonary hypertension Cardiology is currently following to assist with medical management. 6. New onset seizure activity The patient apparently had a witnessed tonic-clonic seizure on 02/23. However, it resolved without intervention. No further seizure activity has been witnessed. 7. Tobacco dependency, currently in remission/hypertension/hyperlipidemia/peripheral vascular disease Complicates care, management, recovery and prognosis. Physical therapy to work with the patient. This note was generated with [employer] software. It may contain incorrect words, spelling, and punctuation that were not noted in checking the note before signing. Code Visit Inpatient E&M: 14628 Subs Hosp L2
[2019-03-06] MEDS: Ipratropium 0.5 MG/2.5 ML SOLUTION INHALATION ×2 (07:13→11:02)
[2019-03-06] MEDS: Aspirin 81 MG TAB.CHEW PO (08:15)
[2019-03-06] MEDS: predniSONE 20 MG Tablet 40 MG PO (08:16)
[2019-03-06] MEDS: Metoprolol Tartrate 25 MG Tablet PO (08:17)
[2019-03-06] MEDS: levETIRAcetam 500 MG Tablet PO (08:17)
[2019-03-06] MEDS: APIXABAN 5 MG TABLET PO (08:17)
[2019-03-06] MEDS: QUEtiapine 100 MG Tablet PO (08:18)
[2019-03-06] MEDS: Fenofibrate 145 MG Tablet PO (08:18)
[2019-03-06] MEDS: Famotidine 20 MG Tablet PO (08:18)
[2019-03-06] MEDS: Clopidogrel Bisulfate 75 MG Tablet PO (08:18)
[2019-03-06] MEDS: Losartan Potassium 25 MG Tablet PO (08:21)
--- NOTE | 2019-03-06 08:29 | PCM.PN.CARD ---
Subjectve: The patient is awake. She readily admits this morning that she does not know where she is at, what year it is, or who the president is. Her son is with her and she recognizes him. However she comments on a variety of home related issues which she states is not true. She does not appear to complain of ongoing chest pain. She states that she has a cough. Objective: Vital Signs Temp Pulse Resp BP Pulse Ox 98.0 F 76 20 H 126/35 H 93 03/06/19 02:30 03/06/19 08:17 03/06/19 07:13 03/06/19 02:30 03/06/19 07:13 Oxygen Flow Rate (L/min) 2 Oxygen Delivery Method Nasal Cannula Weight: 139 lb 8.842 oz Body Mass Index (BMI) 26.4 Intake and Output for Last 24 Hours 03/04/19 03/05/19 03/06/19 23:59 23:59 23:59 Intake Total 626.75 / 626.75 1185.25 / 1185.25 60 / 60 Output Total 700 / 700 Balance -73.25 / -73.25 1185.25 / 1185.25 60 / 60 General: Awake, No Acute Distress HEENT: Atraumatic, Normocephalic, PERRL, EOMI, Sclera Non Icteric Oral: Moist Mucosa Neck: Supple, Good ROM, No JVD Lungs: Rhonchi Cardiovascular: Regular Rhythm, Normal S1, Normal S2 Abdomen: Bowel Sounds Present, Soft, Non Tender Extremities: No edema Rhythm: Sinus rhythm Medical Necessity - Tobacco Use Smoking Status: Former smoker Tobacco Use: Cigarettes Assessment/Plan 1. CAD status post PCI The patient has a history of underlying CAD status post PCI. At the present time the patient appears to be without acute symptoms. Her previous ECGs demonstrated T wave changes. Her repeat ECG has demonstrated the appearance of progression towards baseline of her previous ST/T wave changes. At the moment she is going to continue medical management. Her medications can be adjusted as deemed appropriate. 2. Cardiomyopathy The patient was reported during her early hospitalization as having diminished LV systolic function with an estimated LVEF of 20% by transthoracic echocardiogram. Her echocardiogram has been repeated. Her overall LV systolic function has improved with an estimated LVEF of 53%. Thus there are concerns as to whether or not her changing LV systolic function may have been related to her noncardiac illness and potentially a stress-induced type cardiomyopathy. At the moment she appears to be without any acute symptoms of CHF or pulmonary edema. She will continue combined medical therapy as deemed appropriate. 3. Hyperlipidemia The patient will continue medical management as deemed appropriate. 4. Hypertension The patient's blood pressure can be monitored. Her medications can be adjusted as deemed appropriate. 5. COPD The patient does have a history of underlying COPD. She is being followed by internal medicine and pulmonology/critical care medicine. 6. Mental status changes The patient remains disoriented at this time with respect to time and place. She will need continued evaluation care per internal medicine. Comment: The patient's case was discussed and reviewed with her son who was present at the time. This note was generated using a voice recognition system and there may be incorrect words, spelling or punctuation that were not noted when reviewing the office note prior to saving.
--- NOTE | 2019-03-06 09:37 | PCM.PN.HOSP ---
Patient Problems: Active and Suspected Problems (Last Updated 03/02/19 @ 11:33 by Mercy Dupree) Acute respiratory failure with hypoxia and hypercapnia (Acute) Pneumonia (Acute) Sepsis (Acute) Reason for Visit: Follow-up respiratory failure Subjective: She did receive her morning dose of Seroquel earlier than her scheduled in view of agitation. Objective: GENERAL: Patient appears agitated HEENT: Atraumatic; EYES; Anicteric, Normal Conjunctiva NECK; supple, normal thyroid, RESPIRATORY: Diminished to auscultation CARDIOVASCULAR: Regular S1 S2, GI: soft, normoactive bowel sounds, : No Renal angle tenderness; EXTREMITIES: No edema, no clubbing, MUSCULOSKELETAL: no muscle waisting NEURO: Awake; no lateralizing signs. SKIN: No Rash PSYCH; agitated Vitals/I&O's: Vital Signs Temp Pulse Resp BP Pulse Ox 97.8 F 92 16 124/61 H 100 03/06/19 09:03 03/06/19 09:03 03/06/19 09:03 03/06/19 09:03 03/06/19 09:03 Oxygen Flow Rate (L/min) 2 Oxygen Delivery Method Nasal Cannula Weight: 63.3 kg Body Mass Index (BMI) 26.4 Intake and Output for Last 24 Hours 03/04/19 03/05/19 03/06/19 23:59 23:59 23:59 Intake Total 626.75 / 626.75 1185.25 / 1185.25 60 / 60 Output Total 700 / 700 Balance -73.25 / -73.25 1185.25 / 1185.25 60 / 60 Current Medications Acetaminophen (Tylenol Liquid) 650 mg PO Q6H PRN PRN PRN Reason: Pain 1-3/10 or Fever >100.7 Apixaban (Eliquis) 5 mg PO BID [facility] Last Admin: 03/06/19 08:17 Dose: 5 mg Documented by: Aspirin (Aspirin, Baby) 81 mg PO DAILY@0800 [facility] Last Admin: 03/06/19 08:15 Dose: 81 mg Documented by: Atorvastatin Calcium (Lipitor) 80 mg PO QHS [facility] Last Admin: 03/05/19 22:14 Dose: 80 mg Documented by: Clopidogrel Bisulfate (Plavix) 75 mg PO DAILY [facility] Last Admin: 03/06/19 08:18 Dose: 75 mg Documented by: Famotidine (Pepcid) 20 mg PO DAILY [facility] Last Admin: 03/06/19 08:18 Dose: 20 mg Documented by: Fenofibrate (Tricor) 145 mg PO DAILY [facility] Last Admin: 03/06/19 08:18 Dose: 145 mg Documented by: Glucagon () 1 mg IM .X1 PRN PRN Reason: Hypoglycemia Haloperidol Lactate (Haldol) 3 mg IV Q4H PRN PRN PRN Reason: AGITATION Last Admin: 03/06/19 02:39 Dose: 3 mg Documented by: Sodium Chloride () 250 mls @ 15 mls/hr IV .[id number] PRN PRN Reason: Saline Flush Last Infusion: 03/05/19 11:56 Dose: 0 mls/hr Documented by: Sodium Chloride () 250 mls @ 15 mls/hr IV .[id number] PRN PRN Reason: Additional IVPB Infusion Dextrose (Dextrose 10%-Water) 250 mls @ 999 mls/hr IV .Q16M PRN; Protocol PRN Reason: HYPOGLYCEMIA Ipratropium [place] (Atrovent) 0.5 mg INHALATION Q4H.RT [facility] Last Admin: 03/06/19 07:13 Dose: 0.5 mg Documented by: Levetiracetam (Keppra Tablet) 500 mg PO BID [facility] Last Admin: 03/06/19 08:17 Dose: 500 mg Documented by: Losartan Potassium (Cozaar) 25 mg PO DAILY [facility] Last Admin: 03/06/19 08:21 Dose: 25 mg Documented by: Metoprolol Tartrate (Lopressor (Beta Tata)) 25 mg PO BID [facility] Last Admin: 03/06/19 08:17 Dose: 25 mg Documented by: Metoprolol Tartrate (Lopressor (Beta Tata)) 5 mg IV Q6 PRN PRN Reason: BLOOD PRESSURE ELEVATION Nicotine (Nicoderm Cq (Pbkc)) 21 mg TRANSDERM. DAILY [facility] Last Admin: 03/06/19 08:17 Dose: 21 mg Documented by: Nitroglycerin (Nitrostat) 0.4 mg SUBLINGUAL Q5M PRN PRN Reason: CHEST Polyethylene Glycol (Miralax) 17 gm PO DAILY PRN PRN Reason: Constipation [facility] Admin: 03/06/19 08:16 Dose: 20 meq Documented by: Prednisone () 40 mg PO DAILY@0800 [facility] Last Admin: 03/06/19 08:16 Dose: 40 mg Documented by: Quetiapine Fumarate (Seroquel) 100 mg PO BID [facility] Last Admin: 03/06/19 08:18 Dose: 100 mg Documented by: Sodium Chloride () 10 - 40 ml IV UD PRN PRN Reason: SALINE FLUSH Last Admin: 03/06/19 02:42 Dose: 20 ml Documented by: STROKE Vital Signs/Narrative: Vital Signs Temp Pulse Resp BP Pulse Ox 03/06/19 09:03 97.8 F 92 16 124/61 H 100 03/06/19 08:17 76 03/06/19 07:13 96 20 H 93 Medical Necessity - Tobacco Use Smoking Status: Former smoker Tobacco Use: Cigarettes Assessment/Plan All Active Problems (Last Updated 03/02/19 @ 11:33 by Mercy Dupree) Lower respiratory infection (Acute) Acute respiratory failure with hypoxia and hypercapnia (Acute) Pneumonia (Acute) Sepsis (Acute) Pulmonary embolism (Acute) Cholelithiasis NOS (Acute) Acute respiratory failure with hypoxia and hypercapnia (Acute) COPD with acute exacerbation (Acute) Gram-negative pneumonia (Acute) Acute hypercapnic respiratory failure (Acute) NSTEMI (non-ST elevated myocardial infarction) (Acute) COPD exacerbation (Acute) Patient is a 73-year-old lady with history of severe interstitial fibrosis admitted with progressive shortness of breath patient was intubated due to worsening respiratory status weaned off the vent on 03/01/2019. 1. Acute on chronic hypoxic respiratory failure ?Secondary to COPD exacerbation as well as Pseudomonas pneumonia. Patient was managed with mechanical ventilation weaned off the vent on 03/01/2019 ?03/03/2019: Patient seen breathing continues to improve ?03/04/2019 had a relatively uneventful night. ?03/05/2019; patient seen awaiting social worker health services eval for possible placement to longterm facility 2. Dysphagia Secondary to prolonged intubation patient did fail swallow eval on 03/01/2019 scheduled to undergo repeat evaluation on 03/02/2019 ?03/03/2019 patient did pass her speech and swallow eval subsequently started on oral diet 3. Seizure ?This was felt to be secondary to possible serotonin syndrome patient was previously on Precedex Seroquel bupropion and paroxetine the suspected offending medications held being managed with Keppra IV with plans to switch to p.o. once she passes a speech and swallow eval 4. Acute on chronic systolic heart failure with reduced ejection fraction ?EF 20% has been managed with Lasix which was held following episodes of hypotension 5. Acute non-STEMI ?Patient has previous history of CAD with subsequent stent placement was seen in consultation by cardiology recommendation is to manage with medical therapy only at this point 6. Essential hypertension ?Antihypertensives placed on hold following episodes of hypotension 7. History of DVT ?Patient is on Eliquis 8. Tobacco dependence ?Counseled on cessation, offered nicotine patch for tobacco cravings 9. Hypokalemia ?Corrected per protocol 10. Physical deconditioning ?Requested for PT OT eval and treatment and social worker health services to assist with discharge planning. 03/04/2019; awaiting insurance preset prior to transfer to longterm facility 11. Acute delirium ?Do suspect underlying dementia with some behavioral agitation. Patient is on Seroquel scheduled. Code Visit Inpatient E&M: 69906 Subs Hosp L2
--- NOTE | 2019-03-06 12:53 | CASEMGMT ---
SW spoke with patient's daughter and she confirmed they would like patient to go to [facility]. She asked that SW let her know as soon as SW hears anything. MILE did talk with Concepcion at [facility] and confirmed she started the pre-cert. Plan: [facility] pending insurance approval. Brenda GARZON MSW
--- NOTE | 2019-03-06 15:33 | CASEMGMT ---
SW received a call from Concepcion at [facility] and patient was approved. SW had physician notified. SW called patient's daughter and left her a message letting her know patient was approved. Green sheet on chart Brenda WILKERSON
--- NOTE | 2019-03-06 16:05 | TREXTCAR_ITS ---
- Diet 03/02/19 09:05 Diet: Cardiac/Low Cholesterol Food consistency:: Puree Liquid Consistency:: [place] Thick Is pt able to select menu?: No Diet Comments: Supervision w/ assist; no straw; meds whole w/ purees - Routine Orders/Code [facility] - Wound(s) coccyx Wound Type: Pressure Injury - Therapies Physical Therapy: Eval and Treat Occupational Therapy: Eval and Treat - Allergies/Procedures Done in Hospital Allergies/Adverse Reactions: Allergies codeine Allergy (Unknown, Verified 09/12/18 01:10) nausea, hives morphine Allergy (Unknown, Verified 09/12/18 01:10) Nausea naproxen [From Naprosyn] Allergy (Unknown, Verified 09/12/18 01:10) Hives Sulfa (Sulfonamide Antibiotics) Allergy (Unknown, Verified 09/12/18 01:10) Hives albuterol Allergy (Verified 09/11/18 22:12) Rash fentanyl Adverse Reaction (Severe, Verified 09/12/18 01:10) Rash OD on Fentany patch. Very sensitive to does 75mcg patch lithium Adverse Reaction (Unknown, Verified 09/12/18 01:10) anger phenobarbital Adverse Reaction (Unknown, Verified 09/12/18 01:10) anger Iodine and Iodide Containing Produc Adverse Reaction (Verified 09/12/18 01:10) Hives ipratropium [From DuoNeb] Adverse Reaction (Verified 02/19/19 10:28) Hives Penicillins [PCN] Adverse Reaction (Verified 09/12/18 01:10) Hives - Type of Care/Length of Stay Estimated LOS: Convalescent Care Less Than 30 days Type of Care Needed: Skilled Rehab Potential: Fair Prognosis: Fair - Additional Orders/Day of Discharge Day of Discharge: 03/06/19 - Dietary and Speech Recommendations Dietitian Recommendations/Changes: Continue cardiac diet- consistency per [employer]TER. Will provide ONS w/ meals for additional calories/protein if consumed. - Follow Up Care Primary Care Physician: Darleen Craig MD [Primary Care Provider] -
--- NOTE | 2019-03-06 16:07 | PCM.DC.SUM ---
Discharge Date and Diagnosis - Problem List Patient Problems: Active and Suspected Problems (Last Updated 03/02/19 @ 11:33 by Mercy Dupree) Acute respiratory failure with hypoxia and hypercapnia (Acute) Pneumonia (Acute) Sepsis (Acute) Date of Admission: 02/19/19 Date of Discharge: 03/06/19 - Primary Discharge Diagnosis Active and Suspected Problems (Last Updated 03/02/19 @ 11:33 by Mercy Dupree) Acute respiratory failure with hypoxia and hypercapnia (Acute) Pneumonia (Acute) Sepsis (Acute) - Secondary Discharge Diagnosis Chronic Problems (Last Updated 03/02/19 @ 11:33 by Mercy Dupree) Pure hypercholesterolemia (Chronic) Essential hypertension (Chronic) COPD (chronic obstructive pulmonary disease) (Chronic) COPD with acute exacerbation (Chronic) Tinea unguium (Chronic) Presence of stent in coronary artery (Chronic) PTCA/SUSAN to ostium of LMT 10/01/2014 @[facility]; PTCA/SUSAN of the mid/distal RCA 11/11/17 CAD (coronary artery disease) (Chronic) Successful PTCA/SUSAN of the of mid/distal RCA with a 2.25 x 38 Promus Synergy, post dilated proximally with a 3.0 x 12 NC balloon at 8 safia (2.5mm); 75%-->0%, no dissection. Successful PTCA/SUSAN of the proximal RCA with a 2.5 x 20 Promus Synergy, post dilated with a 3.0 x 12 at 14 safia; 75%-->0%, no dissection. Tobacco abuse (Chronic) Congestive heart failure (Chronic) Nonrheumatic tricuspid (valve) insufficiency (Chronic) Nonrheumatic mitral valve insufficiency (Chronic) Nicotine dependence, cigarettes, uncomplicated (Chronic) Atherosclerosis of [place] coronary artery of [place] heart without angina pectoris (Chronic) PTCA/SUSAN to ostium of LMT 10/01/2014 @[facility]; PTCA/SUSAN to mid/distal RCA and proximal RCA in November 2017 at [facility]; SOB (shortness of breath) (Chronic) Hospital Course and Treatment Imaging Results: Clinical Impression(s) from Imaging Studies Chest X-Ray 02/19/19 06:05 IMPRESSION: Bilateral lower airspace disease superimposed upon moderately severe pulmonary fibrosis. Differential considerations include bronchitis versus pneumonia. Electronically Signed: Marivel Smart MD at 6:39 EST , Service support , Chest X-Ray 02/20/19 06:35 IMPRESSION: Stable bilateral interstitial pulmonary infiltrates with pulmonary scarring and likely pulmonary fibrosis; there may be acute infiltrates or pulmonary venous congestion in addition to the chronic interstitial fibrotic changes and/or progression of pulmonary fibrosis with no change when compared to most recent chest radiograph Upper lobe COPD changes Ill-defined 8 mm density right upper lobe scar versus pulmonary lesion CT chest follow-up recommended Electronically Signed: Mohsen Zhong at 7:15 EST Tel , Service support , KUB X-Ray 02/20/19 07:17 IMPRESSION: Appropriate positioning of enteric tube with the tip probably in the stomach. Electronically Signed: Marivel Smart MD at 9:42 EST , Service support , Chest X-Ray 02/20/19 07:40 IMPRESSION: 1. Appropriate positioning of endotracheal tube. 2. Heterogeneous bilateral basilar interstitial and air space consolidations may represent pneumonia. Electronically Signed: Marivel Smart MD at 8:59 EST , Service support , Chest CT 02/20/19 09:52 IMPRESSION: 1. Bilateral lower lobe airspace consolidations, atelectasis and pleural effusions likely secondary to pneumonia. 2. Emphysematous changes and subcortical pulmonary fibrosis. 3. Nonspecific pathologic mediastinal lymphadenopathy. Electronically Signed: Marivel Smart MD at 11:06 EST , Service support , Brain CT 02/25/19 09:08 IMPRESSION: No acute intracranial process. Electronically Signed: Mac Hardin MD at 13:44 EST Tel , Service support , Chest CT 02/25/19 09:09 IMPRESSION: 1. Bilateral lower lobes infiltrates worse on the left side could be due to pneumonia. 2. Small bilateral pleural effusions. 3. Prominent mediastinal nodes likely reactive. Electronically Signed: Mac Hardin MD at 13:49 EST Tel , Service support , Videofluoroscopic Swallow 03/03/19 00:00 IMPRESSION: Mild vestibular penetration and mild vilma silent aspiration during nectar thick straw phase. Fluoroscopy services provided for clinical procedure. Please refer to operating physician''s procedure note for additional detail. The swallow study findings were discussed with the patient by the speech pathologist at the conclusion of the examination. Please see speech pathology report for more information and recommendations. Electronically Signed: Aung Finnegan MD at 14:27 EST , Service support , 2D echo Interpretation Summary Normal LV size. Moderately severe segmental systolic dysfunction (see wall motion). The estimated ejection fraction is 20 %. There are regional wall motion abnormalities as specified. Moderate pulmonary hypertension. Compared to previous study, the left ventricular systolic function has worsened.. Operations: None Summary of Care Provided: 1. Acute on chronic hypoxic respiratory failure ?Secondary to COPD exacerbation as well as Pseudomonas pneumonia. Patient was managed with mechanical ventilation weaned off the vent on 03/01/2019 ?03/03/2019: Patient seen breathing continues to improve ?03/04/2019 had a relatively uneventful night. ?03/05/2019; patient seen awaiting social media intern eval for possible placement to senior living facility 03/06/2019: Patient was discharged to senior living facility once insurance presets was obtained 2. Dysphagia Secondary to prolonged intubation patient did fail swallow eval on 03/01/2019 scheduled to undergo repeat evaluation on 03/02/2019 ?03/03/2019 patient did pass her speech and swallow eval subsequently started on oral diet 3. Seizure ?This was felt to be secondary to possible serotonin syndrome patient was previously on Precedex Seroquel bupropion and paroxetine the suspected offending medications held being managed with Keppra IV with plans to switch to p.o. once she passes a speech and swallow eval 4. Acute on chronic systolic heart failure with reduced ejection fraction ?EF 20% has been managed with Lasix which was held following episodes of hypotension 5. Acute non-STEMI ?Patient has previous history of CAD with subsequent stent placement was seen in consultation by cardiology recommendation is to manage with medical therapy only at this point 6. Essential hypertension ?Antihypertensives placed on hold following episodes of hypotension 7. History of DVT ?Patient is on Eliquis 8. Tobacco dependence ?Counseled on cessation, offered nicotine patch for tobacco cravings 9. Hypokalemia ?Corrected per protocol 10. Physical deconditioning ?Requested for PT OT eval and treatment and social media intern to assist with discharge planning. 03/04/2019; awaiting insurance preset prior to transfer to senior living facility 11. Acute delirium ?Do suspect underlying dementia with some behavioral agitation. Patient is on Seroquel scheduled. Patient Problems: Active and Suspected Problems (Last Updated 03/02/19 @ 11:33 by Mercy Dupree) Acute respiratory failure with hypoxia and hypercapnia (Acute) Pneumonia (Acute) Sepsis (Acute) Objective: HEENT: Atraumatic; EYES; Anicteric, Normal Conjunctiva NECK; supple, normal thyroid, RESPIRATORY: Diminished to auscultation CARDIOVASCULAR: Regular S1 S2, GI: soft, normoactive bowel sounds, : No Renal angle tenderness; EXTREMITIES: No edema, no clubbing, MUSCULOSKELETAL: no muscle waisting NEURO: Awake; no lateralizing signs. SKIN: No Rash - Physical Exam Vitals/I&O's: Vital Signs Temp Pulse Resp BP Pulse Ox 98.0 F 82 16 107/62 96 03/06/19 15:05 03/06/19 15:05 03/06/19 15:05 03/06/19 15:05 03/06/19 15:05 Oxygen Flow Rate (L/min) 2 Oxygen Delivery Method Nasal Cannula Weight: 63.3 kg Body Mass Index (BMI) 26.4 Intake and Output for Last 24 Hours 03/04/19 03/05/19 03/06/19 23:59 23:59 23:59 Intake Total 626.75 / 626.75 1185.25 / 1185.25 410 / 410 Output Total 700 / 700 Balance -73.25 / -73.25 1185.25 / 1185.25 410 / 410 Current Medications Acetaminophen (Tylenol Liquid) 650 mg PO Q6H PRN PRN PRN Reason: Pain 1-3/10 or Fever >100.7 Apixaban (Eliquis) 5 mg PO BID [facility] Last Admin: 03/06/19 08:17 Dose: 5 mg Documented by: Aspirin (Aspirin, Baby) 81 mg PO DAILY@0800 [facility] Last Admin: 03/06/19 08:15 Dose: 81 mg Documented by: Atorvastatin Calcium (Lipitor) 80 mg PO QHS [facility] Last Admin: 03/05/19 22:14 Dose: 80 mg Documented by: Clopidogrel Bisulfate (Plavix) 75 mg PO DAILY [facility] Last Admin: 03/06/19 08:18 Dose: 75 mg Documented by: Famotidine (Pepcid) 20 mg PO DAILY [facility] Last Admin: 03/06/19 08:18 Dose: 20 mg Documented by: Fenofibrate (Tricor) 145 mg PO DAILY [facility] Last Admin: 03/06/19 08:18 Dose: 145 mg Documented by: Glucagon () 1 mg IM .X1 PRN PRN Reason: Hypoglycemia Haloperidol Lactate (Haldol) 3 mg IV Q4H PRN PRN PRN Reason: AGITATION Last Admin: 03/06/19 02:39 Dose: 3 mg Documented by: Sodium Chloride () 250 mls @ 15 mls/hr IV .[id number] PRN PRN Reason: Saline Flush Last Infusion: 03/05/19 11:56 Dose: 0 mls/hr Documented by: Sodium Chloride () 250 mls @ 15 mls/hr IV .[id number] PRN PRN Reason: Additional IVPB Infusion Dextrose (Dextrose 10%-Water) 250 mls @ 999 mls/hr IV .Q16M PRN; Protocol PRN Reason: HYPOGLYCEMIA Ipratropium [place] (Atrovent) 0.5 mg INHALATION Q6HWA.RT [facility] Levetiracetam (Keppra Tablet) 500 mg PO BID [facility] Last Admin: 03/06/19 08:17 Dose: 500 mg Documented by: Losartan Potassium (Cozaar) 25 mg PO DAILY [facility] Last Admin: 03/06/19 08:21 Dose: 25 mg Documented by: Metoprolol Tartrate (Lopressor (Beta Tata)) 25 mg PO BID [facility] Last Admin: 03/06/19 08:17 Dose: 25 mg Documented by: Metoprolol Tartrate (Lopressor (Beta Tata)) 5 mg IV Q6 PRN PRN Reason: BLOOD PRESSURE ELEVATION Nicotine (Nicoderm Cq (Pbkc)) 21 mg TRANSDERM. DAILY [facility] Last Admin: 03/06/19 08:17 Dose: 21 mg Documented by: Nitroglycerin (Nitrostat) 0.4 mg SUBLINGUAL Q5M PRN PRN Reason: CHEST Polyethylene Glycol (Miralax) 17 gm PO DAILY PRN PRN Reason: Constipation Potassium Chloride (K-Dur) 20 meq PO BIDCM [facility] Last Admin: 03/06/19 08:16 Dose: 20 meq Documented by: Prednisone () 40 mg PO DAILY@0800 [facility] Last Admin: 03/06/19 08:16 Dose: 40 mg Documented by: Quetiapine Fumarate (Seroquel) 100 mg PO BID [facility] Last Admin: 03/06/19 08:18 Dose: 100 mg Documented by: Sodium Chloride () 10 - 40 ml IV UD PRN PRN Reason: SALINE FLUSH Last Admin: 03/06/19 02:42 Dose: 20 ml Documented by: Discharge Diet: 2000 mg Sodium Diet Discharge Activity: Return to Normal Activity Home Medications: Medications to take at Discharge Gabapentin [Neurontin] 600 mg PO TIDCM 07/13/14 cycloBENZAPRine HCl [Flexeril] 10 mg PO DAILY 07/13/14 Fluticasone/Vilanterol [Breo Ellipta 200-25 Mcg INH] 1 ea IH DAILY 12/17/16 Paroxetine HCl [Paxil] 40 mg PO DAILY 12/17/16 nitroglycerin 0.4 mg sublingual tablet 0.4 mg SUBLINGUAL Q5M PRN #25 tab 03/25/17 ranolazine 500 mg tablet,extended release,12 hr 500 mg PO BID #180 tab 03/25/17 clopidogrel 75 mg tablet 75 mg PO DAILY #90 tab 10/23/17 Cholecalciferol (Vitamin D3) [Vitamin D3] 50,000 unit PO QWEEK 11/23/17 Pantoprazole Sodium [Protonix] 20 mg PO BID 11/23/17 buPROPion SR [Wellbutrin SR (150mg tablets)] 150 mg PO DAILY 11/23/17 tiotropium bromide 2.5 mcg/actuation mist for inhalation 2 puff INHALATION QDAY #1 ea 12/10/17 albuterol sulfate 90 mcg/actuation aerosol inhaler 2 puff INHALATION Q6H PRN #18 g 01/29/18 Aspirin [Aspirin, Baby] 81 mg PO DAILY@0800 03/30/18 Potassium Chloride [K-Dur] 20 meq PO BIDCM #20 tablet 04/05/18 Apixaban [Eliquis] 5 mg PO BID 09/11/18 Atorvastatin Calcium 80 mg PO DAILY 09/11/18 DiphenhydrAMINE [Benadryl] 25 mg PO Q6H PRN PRN 09/11/18 Fenofibrate [Tricor] 145 mg PO DAILY 09/11/18 Guaifenesin [Mucinex] 1 tab PO BID 09/11/18 Ipratropium [Atrovent Inhaler] 2 puff INHALATION 4X/DAY 09/11/18 Levalbuterol HCl 1 puff INHALATION 4X/DAY PRN PRN 09/11/18 Metoprolol Tartrate 25 mg PO BID 09/11/18 Isosorbide Mononitrate [Isosorbide Mononitrate ER] 90 mg PO DAILY 02/19/19 Acetaminophen Liquid [Tylenol Liquid] 650 mg PO Q6H PRN PRN udc 03/06/19 Nicotine [Nicoderm Cq] 21 mg TRANSDERM. DAILY patch 03/06/19 Polyethylene Glycol 3350 [Miralax] 17 gm PO DAILY PRN packet 03/06/19 Potassium Chloride [K-Dur] 20 meq PO BIDCM tab 03/06/19 Prednisone 10 mg PO UD #30 tab 03/06/19 Quetiapine Fumarate [Seroquel] 100 mg PO BID tab 03/06/19 levETIRAcetam tablet [Keppra tablet] 500 mg PO BID tab 03/06/19 Following Prescrptions Were Given to Patient: Prednisone 10 mg PO UD #30 tab Primary Care Physician: Darleen Craig MD [Primary Care Provider] - Disposition: [facility] facility Minutes spent on discharge:: 45 Patient Condition:: Stable Medical Necessity - Tobacco Use Smoking Status: Former smoker Tobacco Use: Cigarettes Meaningful Use Info Meaningful Use Diagnoses (Choose all that apply): CHF - CHF PENG/ARB ordered at discharge?: Yes Documented LVEF (%): 20 Code Visit Inpatient E&M: 89456 Disch Hosp
--- NOTE | 2019-03-06 16:17 | NURSING ---
report given to Marivel ABRAHAM at [facility]
--- NOTE | 2019-03-09 10:11 | CCN.REFER ---
Patient went to [facility]. CCN referral on hold. DTR will call this RN if patient goes home and is in need of CCN.
== END 2019-03-06 17:06 | disposition skilled nursing facility (03) | DRG 720 ==
LOC: ED 06:40 → ICU 07:36 → PCU 03-05 17:11
PROVIDERS: Internal Medicine; Internal Medicine Critical Care Medicine; Admitting Provider Student in an Organized Health Care Education/Training Program; Emergency Provider Emergency Medicine; Family Provider Internal Medicine; PCP Internal Medicine; Visit Provider Internal Medicine
DX: A41.9 Sepsis, unspecified organism (principal); J96.21 Acute and chronic respiratory failure with hypoxia; I21.4 Non-ST elevation (NSTEMI) myocardial infarction; J15.1 Pneumonia due to Pseudomonas; I50.23 Acute on chronic systolic (congestive) heart failure; I27.20 Pulmonary hypertension, unspecified; I11.0 Hypertensive heart disease with heart failure; J44.1 Chronic obstructive pulmonary disease with (acute) exacerbation; L60.2 Onychogryphosis; E78.5 Hyperlipidemia, unspecified; J44.0 Chronic obstructive pulmonary disease with (acute) lower respiratory infection; E87.6 Hypokalemia; R56.9 Unspecified convulsions; R65.20 Severe sepsis without septic shock; I25.10 Atherosclerotic heart disease of native coronary artery without angina pectoris; B35.1 Tinea unguium; M79.7 Fibromyalgia; I36.1 Nonrheumatic tricuspid (valve) insufficiency; I34.0 Nonrheumatic mitral (valve) insufficiency; F17.210 Nicotine dependence, cigarettes, uncomplicated; Z86.718 Personal history of other venous thrombosis and embolism; R13.10 Dysphagia, unspecified; Z79.02 Long term (current) use of antithrombotics/antiplatelets; Z79.82 Long term (current) use of aspirin; Z95.5 Presence of coronary angioplasty implant and graft; Z79.01 Long term (current) use of anticoagulants; I73.9 Peripheral vascular disease, unspecified; Z66 Do not resuscitate
CPT/HCPCS: 31500; 31720; 36415; 36569; 36600; 70450; 71045; 71250; 74018; 74230; 80048; 80053; 80069; 80076; 82140; 82550; 82803; 82962; 83605; 83735; 83880; 84100; 84478; 84484; 85025; 87040; 87070; 87077; 87086; 87186; 87205; 87449; 87633; 87641; 87804; 92507; 92526; 92610; 92611; 93005; 93306; 93308; 94002; 94003; 94640; 94660; 95819; 95831; 97110; 97116; 97163; 97167; 97530; 97535; 97802; 99251; 99285; J7030; J7040; J7050; Q9957; A4216; G0463; J1940

== ENCOUNTER 2019-04-25 18:01 | Inpatient (IN) | payer MEDICAID, SELFPAY ==
[2019-03-20 09:51] VITALS: BMI 26.4
[2019-04-25] VITALS (19 sets, daily range): BP systolic 97–148; BP diastolic 51–84; PULSE 115–155; RESP 12–50; TEMP 36.7–38.6; O2SAT 86–100; BMI 26.2; BMI 26.3
--- NOTE | 2019-04-25 18:16 | EKG12_ITS ---
Test Reason : SOB Blood Pressure : / mmHG Vent. Rate : 148 BPM Atrial Rate : 148 BPM P-R Int : 136 ms QRS Dur : 082 ms QT Int : 276 ms P-R-T Axes : 000 074 100 degrees QTc Int : 433 ms Sinus tachycardia Low voltage QRS Possible Anterolateral infarct , age undetermined Abnormal ECG Confirmed by VY JEFFERSON ([id number]), video tape editor NORMA RODRIGUEZ ([id number]) on 04/28/2019 2:03:33 PM Referred By: SVEN Confirmed By:VY JEFFERSON
[2019-04-25 18:32] LABS: Absolute Lymphocyte Count 2.95 X10^3/uL (0.83-4.51); Absolute Neutrophil Count 17.4 X10^3/uL (2.0-7.7); Basophil# 0.15 X10^3/uL; Basophil% 0.6 % (0-1); Eosinophil# 1.15 X10^3/uL; Eosinophils% 4.9 % (0-5); Hemoglobin 11.2 g/dL (12.0-15.0); Lymphocyte # 2.95 X10^3/ul (4.0); Lymphocyte % 12.4 % (19-41); Mean Corp Hgb Conc 29.5 g/dL (32-36); Mean Corpuscular Hgb 26.6 pg (27.0-32.0); Mean Corpuscular Volume 90.3 fL (81-99); Mean Platelet Vol. 10.6 fl (6.2-12.0); Monocyte# 1.72 X10^3/uL; Monocyte% 7.3 % (0-10); NRBC Flagged by Analyzer 0.1 % (0-5); Neutrophil % 73.4 % (47-70); POSITIVE DIFFERENTIAL YES; Platelet Count 534 K/mm3 (150-450); RBC Distribution Width CV 15.7 % (11.6-14.6); RBC Distribution Width SD 51.6 fl (35.1-43.9); Red Blood Count 4.21 M/mm3 (4.2-5.4); White Blood Count 23.7 K/mm3 (4.4-11.0)
[2019-04-25 18:34] LABS: Differential Indicated SCAN CRITERIA MET
--- NOTE | 2019-04-25 18:35 | RAD_ITS ---
STUDY: X-RAY CHEST REASON FOR EXAM: Female, 74 years old. DYSPNEA, PULSE OX 50 TECHNIQUE: AP COMPARISON: 02/20/2019 FINDINGS: There are interstitial fibrotic changes of the lungs. Localized consolidation in the lung bases are no longer identified. There is no demonstrated pleural abnormality. Normal size heart. Normal mediastinum and danielle. Normal visualized pulmonary arteries. There is atherosclerotic calcification of the aortic arch with tortuosity. No acute bony process. There is no demonstrated abnormality of the visualized soft tissue structures of the upper abdomen. RAD/Chest 1 View (Portable) IMPRESSION: 1. No airspace consolidation or pleural effusion. 2. Basilar dominant parenchymal fibrosis. Electronically Signed: Aidan Kulkarni MD (Brooks) at 18:53 EST , Service support ,
[2019-04-25 18:40] LABS: Allen Test POS; Base Excess -10 mmol/L (-2 to +2); Bicarbonate 18.2 mmol/L (22-26); Blood Gas Specimen Type ART; EPAP 8; FI02 100; IPAP 16; PO2 128 mmHG (75-100); RR 12; SITE R Brachial; SO2 98 % (95-99); Time Given 1825; Total Carbon Dioxide 20 mmol/L; pCO2 50.2 mmHg (35-45); pH 7.17 (7.35-7.45)
--- NOTE | 2019-04-25 18:42 | CPS ---
critical blood gas results given to Dr Anderson by COUNTER STITCHER.
[2019-04-25 18:49] LABS: Differential Comment SCANNED; Red Cell Morphology NORM C+C NORMAL (NORM C&C)
[2019-04-25 18:50] LABS: ALB/GLOB Ratio 0.5 RATIO (0.9-2.4); AST(SGOT) 28 U/L (15-37); Alanine Aminotransfer ALT/SGPT 23 U/L (13-56); Albumin, Serum 2.6 g/dL (3.2-5.0); Alkaline Phosphatase 145 U/L (45-117); Anion Gap 10 (5-15); BUN 19 mg/dL (7-18); Calcium,Total 8.4 mg/dL (8.5-10.1); Chloride 110 mmol/L (98-107); Creatinine, Serum 1.12 mg/dL (0.55-1.02); EST Glomerular Filtration Rate 51 mL/min (>60); Est Glom Filt Rate - Afr Amer 61 mL/min (>60); Estimated Creatinine Clearance 36.45 ml/min; Globulin 4.8 g/dL (2.2-4.2); Glucose 189 mg/dL (74-106); Potassium 3.7 mmol/L (3.5-5.1); Protein, Total 7.4 g/dL (6.4-8.2); Sodium Level 138 mmol/L (136-145)
[2019-04-25 18:51] LABS: Platelet Estimate MOD INC (ADEQ)
[2019-04-25 18:54] LABS: International Normalized Ratio 1.2; Prothrombin Time (Protime)PT. 15.3 SECONDS (11.7-14.9)
[2019-04-25 18:55] LABS: Partial Thromboplast Time 32.3 Seconds (24.1-36.2)
[2019-04-25 19:06] LABS: Mucous, Urine 0 SEEN /hpf (<or=2+); Red Blood Cells-Urine 0 SEEN /hpf (0-5)
[2019-04-25 19:08] LABS: Color, Urine Yellow (Yellow); Glucose, Dipstick Normal (Normal); Ketone-Dipstick Negative (Negative); Leukocyte Esterase-Dipstick 25 /ul (Negative); Nitrite-Dipstick Positive (Negative); Occult Blood-Urine 25 /ul (Negative); Protein-Dipstick 100 mg/dl (Negative); Urine Bilirubin Dipstick Negative (Negative); Urine Clarity Clear (Clear); Urine Urobilinogen Normal (Normal)
[2019-04-25 19:20] LABS: Bacteria 1+ /hpf (None Seen); Squamous Epithelial Cells - UA 0-5 SEEN /hpf (5-10); White Blood Cells 0-5 SEEN /hpf (0-5)
[2019-04-25] MEDS: Ipratropium/Albuterol Sulfate 3 ML AMPUL.NEB INHALATION ×2 (19:35→23:15)
--- NOTE | 2019-04-25 19:44 | ED.DCSUM_ITS ---
- ER Visit Summary Date of Service: 04/25/19 Chief Complaint: Shortness of breath History of Present Illness: The patient is a 74 F who presents with shortness of breath that began tonight. Patient states her breathing became acutely worse tonight while in the ambulance on the ride to the hospital. Patient denies any fevers or cough. Patient is unable to provide further history due to her severe condition. Patient is currently on BiPAP that was started by EMS. Physical Examination: Vital signs showed a blood pressure 126/68, temperature 98.0, heart rate of 115, respiratory rate of 49, and pulse oximeter of 86% on nonrebreather mask. Oral mucosa is pink and moist. Neck is supple. There is some JVD. Heart was regular and tachycardic. Lungs showed diffuse wheezing and rhonchi. There is adequate respiratory effort but there is some labored effort with it. Abdomen is soft. Bowel sounds are normal. There is no tenderness. Cranial nerves II through XII are intact. There are no focal motor or sensory deficits noted. Test Results: Portable chest x-ray was obtained. There are chronic changes and pulmonary fibrosis. This was unchanged compared to previous x-ray. This was interpreted by the radiologist and myself. EKG showed sinus tachycardia with a rate of 148. There are no acute ST or T wave changes. This was unchanged compared to previous EKG. CBC showed a leukocytosis of 23.7. Platelets were elevated at 534. Comprehensive metabolic profile was essentially within normal limits. Urinalysis does not show any evidence of urinary tract infection. Lactate was elevated at 6.0. Arterial blood gas showed a pH of 7.17, bicarb of 18.2, PCO2 of 50.2, and PO2 of 128 on BiPAP of 18 and 6. Emergency Department Course and Treatment: Patient was increased to 18 and 10 on her BiPAP. Patient was given a DuoNeb aerosol. Patient does not want to be intubated. Family states that the last time the patient was admitted she was intubated and it took 12 days for her to come off of the ventilator. Patient does not want this again. Blood cultures and urine culture were obtained. Patient was started on cefepime and vancomycin. Case was discussed with the hospitalist. Patient will be admitted to ICU. Patient and family understand and are agreeable with the plan. All questions were answered. Disposition: Admit to ICU Impression: 1. Severe sepsis 2. Respiratory failure This note was generated with Viddler dictation software. It may contain incorrect words, spelling, and punctuation that were not noted in review of the chart prior to signing ED Disposition - Plan for ED Patient: Disposition: Acute Care Hospital [facility] Diagnosis: Severe sepsis, Respiratory failure Referrals: Darleen Craig MD [Primary Care Provider] -
--- NOTE | 2019-04-25 20:11 | ED.RN ---
attempted to call report to ICU. ICU will call back when able to take report.
--- NOTE | 2019-04-25 20:12 | PCM.HP.STD ---
History of Present Illness Date of Admission: 04/25/19 Chief Complaint: SOB The patient is a 74 year old F with a PMH as below presents with SOB and cough for the last 4 days. She is currently on BiPAP because she was hypoxic on presentation to the ER. She is extremely SOB and states that she is getting tired. Communicating with her is difficult because she does not tolerate being off the BiPAP for prolonged periods of time. She had to be intubated fairly recently and it took her 12 days to get off the vent and she refuses to be intubated ever again. The family all agrees with this and states that she is a DNR CCA. In the ER she was found to have a white count of 23.7 as well as tachypnea and tachycardia. Her chest x-ray showed just chronic fibrosis but no signs of an infiltrate. Her UA was unremarkable, there is no white blood cells and there is only 1+ bacteria. She was started on cefepime and vancomycin in the ER. Initially no fluids were given because of her history of heart failure however her last echo was 53% so a 500 cc bolus was provided to her in the ER. Past Medical History Past Medical History (Chronic Problems): Chronic Problems (Last Reviewed 03/20/19 @ 09:59 by Melanie Domingo NP-[place]) Pure hypercholesterolemia (Chronic) Essential hypertension (Chronic) COPD (chronic obstructive pulmonary disease) (Chronic) COPD with acute exacerbation (Chronic) Tinea unguium (Chronic) Presence of stent in coronary artery (Chronic) PTCA/SUSAN to ostium of LMT 10/01/2014 @[facility]; PTCA/SUSAN of the mid/distal RCA 11/11/17 CAD (coronary artery disease) (Chronic) Successful PTCA/SUSAN of the of mid/distal RCA with a 2.25 x 38 Promus Synergy, post dilated proximally with a 3.0 x 12 NC balloon at 8 safia (2.5mm); 75%-->0%, no dissection. Successful PTCA/SUSAN of the proximal RCA with a 2.5 x 20 Promus Synergy, post dilated with a 3.0 x 12 at 14 safia; 75%-->0%, no dissection. Tobacco abuse (Chronic) Congestive heart failure (Chronic) Nonrheumatic tricuspid (valve) insufficiency (Chronic) Nonrheumatic mitral valve insufficiency (Chronic) Nicotine dependence, cigarettes, uncomplicated (Chronic) Atherosclerosis of [place] coronary artery of [place] heart without angina pectoris (Chronic) PTCA/SUSAN to ostium of LMT 10/01/2014 @[facility]; PTCA/SUSAN to mid/distal RCA and proximal RCA in November 2017 at [facility]; SOB (shortness of breath) (Chronic) Medical History: Medical History (Last Reviewed 03/20/19 @ 09:59 by JOANN Swenson) Pure hypercholesterolemia (Chronic) E78.00 Essential hypertension (Chronic) I10 Presence of stent in coronary artery (Chronic) Z95.5 PTCA/SUSAN to ostium of LMT 10/01/2014 @[facility]; PTCA/SUSAN of the mid/distal RCA 11/11/17 Acute respiratory failure with hypoxia and hypercapnia (Acute) J96.01, J96.02 COPD with acute exacerbation (Acute) J44.1 Gram-negative pneumonia (Acute) J15.6 Acute hypercapnic respiratory failure (Acute) J96.02 NSTEMI (non-ST elevated myocardial infarction) (Acute) I21.4 COPD exacerbation (Acute) J44.1 CAD (coronary artery disease) (Chronic) I25.10 Successful PTCA/SUSAN of the of mid/distal RCA with a 2.25 x 38 Promus Synergy, post dilated proximally with a 3.0 x 12 NC balloon at 8 safia (2.5mm); 75%-->0%, no dissection. Successful PTCA/SUSAN of the proximal RCA with a 2.5 x 20 Promus Synergy, post dilated with a 3.0 x 12 at 14 safia; 75%-->0%, no dissection. Tobacco abuse (Chronic) Z72.0 Congestive heart failure (Chronic) I50.9 Nonrheumatic tricuspid (valve) insufficiency (Chronic) I36.1 Nonrheumatic mitral valve insufficiency (Chronic) I34.0 Nicotine dependence, cigarettes, uncomplicated (Chronic) F17.210 Atherosclerosis of [place] coronary artery of [place] heart without angina pectoris (Chronic) I25.10 PTCA/SUSAN to ostium of LMT 10/01/2014 @[facility]; PTCA/SUSAN to mid/distal RCA and proximal RCA in November 2017 at [facility]; Peripheral vascular disease (Suspected) I73.9 SOB (shortness of breath) (Chronic) R06.02 Anemia D64.9 COPD (chronic obstructive pulmonary disease) J44.9 Diabetes mellitus E11.9 Fibromyalgia M79.7 GERD (gastroesophageal reflux disease) K21.9 Hyperlipidemia E78.5 MARISABEL (obstructive sleep apnea) G47.33 Allergies codeine Allergy (Unknown, Verified 04/25/19 18:36) nausea, hives morphine Allergy (Unknown, Verified 04/25/19 18:36) Nausea naproxen [From Naprosyn] Allergy (Unknown, Verified 04/25/19 18:36) Hives Sulfa (Sulfonamide Antibiotics) Allergy (Unknown, Verified 04/25/19 18:36) Hives albuterol Allergy (Verified 04/25/19 18:36) Rash fentanyl Adverse Reaction (Severe, Verified 04/25/19 18:36) Rash OD on Fentany patch. Very sensitive to does 75mcg patch lithium Adverse Reaction (Unknown, Verified 04/25/19 18:36) anger phenobarbital Adverse Reaction (Unknown, Verified 04/25/19 18:36) anger Iodine and Iodide Containing Produc Adverse Reaction (Verified 04/25/19 18:36) Hives ipratropium [From DuoNeb] Adverse Reaction (Verified 04/25/19 18:36) Hives Penicillins [PCN] Adverse Reaction (Verified 04/25/19 18:36) Hives Home Medications: Ambulatory Orders Medication Instructions Recorded Gabapentin [Neurontin] 600 mg PO TIDCM 07/13/14 cycloBENZAPRine HCl [Flexeril] 10 mg PO DAILY 07/13/14 Fluticasone/Vilanterol [Breo 1 ea IH DAILY 12/17/16 Ellipta 200-25 Mcg INH] Paroxetine HCl [Paxil] 40 mg PO DAILY 12/17/16 nitroglycerin 0.4 mg sublingual 0.4 mg SUBLINGUAL Q5M PRN #25 tab 03/25/17 tablet ranolazine 500 mg tablet,extended 500 mg PO BID #180 tab 03/25/17 release,12 hr Pantoprazole Sodium [Protonix] 20 mg PO BID 11/23/17 buPROPion SR [Wellbutrin SR (150mg 150 mg PO DAILY 11/23/17 tablets)] tiotropium bromide 2.5 2 puff INHALATION QDAY #1 ea 12/10/17 mcg/actuation mist for inhalation albuterol sulfate 90 mcg/actuation 2 puff INHALATION Q6H PRN #18 g 01/29/18 aerosol inhaler Aspirin [Aspirin, Baby] 81 mg PO DAILY@0800 03/30/18 Potassium Chloride [K-Dur] 20 meq PO BIDCM #20 tab 04/05/18 Apixaban [Eliquis] 5 mg PO BID 09/11/18 Atorvastatin Calcium 80 mg PO DAILY 09/11/18 DiphenhydrAMINE [Benadryl] 25 mg PO Q6H PRN PRN 09/11/18 Fenofibrate [Tricor] 145 mg PO DAILY 09/11/18 Ipratropium [Atrovent Inhaler] 2 puff INHALATION 4X/DAY 09/11/18 Levalbuterol HCl 1 puff INHALATION 4X/DAY PRN PRN 09/11/18 Metoprolol Tartrate 25 mg PO BID 09/11/18 Isosorbide Mononitrate [Isosorbide 90 mg PO DAILY 02/19/19 Mononitrate ER] Acetaminophen Liquid [Tylenol 650 mg PO Q6H PRN PRN udc 03/06/19 Liquid] Polyethylene Glycol 3350 [Miralax] 17 gm PO DAILY PRN packet 03/06/19 levETIRAcetam tablet [Keppra 500 mg PO BID tab 03/06/19 tablet] Amlodipine Besylate [Norvasc] 5 mg PO DAILY 04/25/19 Quetiapine Fumarate [Seroquel] 100 mg PO QHS 04/25/19 Surgical History: Surgical History (Last Reviewed 03/20/19 @ 09:59 by JOANN Swenson) H/O tubal ligation Z98.51 History of left heart catheterization Z98.890 Hx of appendectomy Z98.890, Z90.49 S/P femoral-femoral bypass surgery Z95.828 with gorortex graft in 2001; removal of infected graft with reconstructions of right superficial artery in 2002 Surgical History: appendectomy, - - cad with stent, this was carpal tunnel surgeries Psychiatric History: No pertinent psych hx 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 PRODUCTION ARTIST History: No pertinent GRAPHIC PRODUCTION ARTIST history Smoking Status: Former smoker Alcohol: None Drugs: None - *Family History Maternal Family History: Family History (Last Reviewed 03/20/19 @ 09:59 by JOANN Swenson) Mother CAD (coronary artery disease) Hypertension Sister CAD (coronary artery disease) Myocardial infarction History Items: Diabetes, Heart Disease, Stroke Paternal Family History: Family History (Last Reviewed 03/20/19 @ 09:59 by RUFINO SwensonC) Mother CAD (coronary artery disease) Hypertension Sister CAD (coronary artery disease) Myocardial infarction History Items: Diabetes, Stroke Review of Systems Constitutional: Denies: Chills, Fever, Weight Change HEENT: Denies: Head Aches, Sinus Congestion, Sinus Drainage Cardiovascular: Denies: Chest Pain, Palpitations Respiratory: Reports: Cough, Shortness of Breath. Denies: Shortness of breath at rest, Sputum production Gastrointestinal: Denies: Abdominal Pain, Nausea, Vomiting Genitourinary: Denies: Dysuria Musculoskeletal: Denies: Joint Pain, Joint Tenderness Skin: Denies: Rash, Wounds Neurological: Denies: Numbness, Tingling, Focal weakness Psychiatric: Denies: Anxiety, Depression Hematologic/ Lymphatic: Denies: Easy Bruising, Easy Bleeding VTE Information - Inpt Only VTE Present on Admission: No Patient Problems: Active and Suspected Problems (Last Reviewed 03/20/19 @ 09:59 by Melanie Domingo NP-C) Severe sepsis (Acute) Respiratory failure (Acute) - Physical Exam Vitals/I&O's: Vital Signs Temp Pulse Resp BP Pulse Ox 100.6 F H 137 H 37 H 109/51 L 97 04/25/19 20:00 04/25/19 20:00 04/25/19 20:00 04/25/19 20:00 04/25/19 20:00 Oxygen Flow Rate (L/min) 15 Oxygen Delivery Method Bi-pap Weight: 148 lb 5.938 oz Body Mass Index (BMI) 26.2 General: Alert, Oriented x3, Cooperative, - - She is in moderate respiratory distress with retractions HEENT: Atraumatic, PERRLA, EOMI, Normocephalic Oral: Dry Mucosa Neck: Supple, No JVD Lungs: Rhonchi, Short of Breath, Tachypneic, Using Accessory Muscles, Wheezes, - - Poor air movement Cardiovascular: Regular Rhythm, No murmurs, Tachycardic Abdomen: Soft, Non Tender, Non-Distended, No Hepato-splenomegaly Extremities: No edema, Capillary Refill Less than 3 Seconds Skin: No rashes, No breakdown Neurological: Neuro grossly intact, Sensory exam intact to light touch and pain Psych/Mental Status: Normal Affect, Appropriate Laboratory Results 04/25/19 18:14: WBC 23.7 H, RBC 4.21, Hgb 11.2 L, Hct 38.0, MCV 90.3, MCH 26.6 L, MCHC 29.5 L, RDW Std Deviation 51.6 H, RDW Coeff of Abhinav 15.7 H, Plt Count 534 H, MPV 10.6, Immature Gran % (Auto) 1.400 H, Neut % (Auto) 73.4 H, Lymph % (Auto) 12.4 L, Pierce % (Auto) 7.3, Eos % (Auto) 4.9, Baso % (Auto) 0.6, Absolute Neuts (auto) 17.4 H, Absolute Lymphs (auto) 2.95, Nucleated RBC % 0.1, Differential Comment SCANNED, Diff Path Review July, Platelet Estimate MOD INC, RBC Morphology NORM C+C 04/25/19 18:14: PT 15.3 H, INR 1.2, APTT 32.3 04/25/19 18:14: Sodium 138, Potassium 3.7, Chloride 110 H, Carbon Dioxide 18.0 L, Anion Gap 10, BUN 19 H, Creatinine 1.12 H, Estim Creat Clear Calc 36.45, Est GFR (MDRD) Af Amer 61, Est GFR (MDRD) Non-Af 51 L, BUN/Creatinine Ratio 17.0, Glucose 189 H, Calcium 8.4 L, Total Bilirubin 0.30, AST 28, ALT 23, Alkaline Phosphatase 145 H, Total Protein 7.4, Albumin 2.6 L, Globulin 4.8 H, Albumin/Globulin Ratio 0.5 L 04/25/19 18:14: Lactic Acid 6.0 H* 04/25/19 18:29: Specimen Type ART, Sample Site R Brachial, pH 7.17 L*, Bicarbonate Actual 18.2 L, POC Total CO2 20, Base Excess -10 L, O2 Saturation 98, O2 % 100, ABG pCO2 50.2 H, ABG pO2 128 H, Angelo Test POS, Respiration Rate 12, O2 Delivery Device Bi / C PAP, EPAP 8, IPAP 16, Blood Gas Notified Whom ED , Blood Gas Notified Time 1825 04/25/19 18:55: Urine Color Yellow, Urine Clarity Clear, Urine pH 6.0, Ur Specific Purcell 1.020, Urine Protein 100 H, Urine Glucose (UA) Normal, Urine Ketones Negative, Urine Occult Blood 25 H, Urine Nitrite Positive H, Urine Bilirubin Negative, Urine Urobilinogen Normal, Ur Leukocyte Esterase 25 H, Urine RBC 0 SEEN, Urine WBC 0-5 SEEN, Ur Squamous Epith Cells 0-5 SEEN, Urine Bacteria 1+, Urine Mucus 0 SEEN Current Medications Vancomycin IV Pharmacy to Dose (1 ea/ Sodium Chloride) 500 mls @ 250 mls/hr IV X1 PRN; Protocol PRN Reason: Rx to Dose Vancomycin HCl 1,750 mg/ (Sodium Chloride) 535 mls @ 250 mls/hr IV X1 ONE Stop: 04/25/19 22:08 Assessment/Plan All Active Problems (Last Reviewed 03/20/19 @ 09:59 by Melanie Domingo, DIGITAL ASSISTANT-C) Severe sepsis (Acute) Respiratory failure (Acute) Lower respiratory infection (Acute) Acute respiratory failure with hypoxia and hypercapnia (Acute) Pneumonia (Acute) Sepsis (Acute) Pulmonary embolism (Acute) Cholelithiasis NOS (Acute) Acute respiratory failure with hypoxia and hypercapnia (Acute) COPD with acute exacerbation (Acute) Gram-negative pneumonia (Acute) Acute hypercapnic respiratory failure (Acute) NSTEMI (non-ST elevated myocardial infarction) (Acute) COPD exacerbation (Acute) 1. Severe sepsis secondary to possible pneumonia with acute hypoxic respiratory failure/Acute COPD exacerbation -White count of 23.7, she is also tachypneic and tachycardic and febrile -Started on cefepime and vancomycin -We will also obtain a Legionella and strep urine antigens -We will obtain respiratory panel as well as an influenza -I did a 20-minute discussion with the family on advanced care planning, they state that she is a DNR CCA and that she would under no circumstance want to be intubated. I explained to them that she already appears like she is getting tired and that BiPAP is the last step before needing intubation and that she could tonight. They expressed understanding and they understand that her wishes are to never be intubated ever again. -We will continue with Solu-Medrol -She was given 500 cc bolus in the ER and will continue with 125 cc/h IV fluids, if she does become hypotensive would recommend starting pressors versus is increasing her fluids -Lactic acid of 6 -pH on her ABG was 7.17 -Continue with breathing treatments 2. CAD status post stent/HTN/HLD/PVD/chronic systolic CHF -Right now her blood pressure stable however my concern is that if she gets exhausted with her respiratory rate and we cannot intubate that her blood pressures will drop significantly. At that point would recommend starting IV pressors which the family is okay with -We will hold her blood pressure medications for right now and can reevaluate as her respiratory status improves -Continue with her Lipitor and her Eliquis for history of DVT -In February of last year she had a heart attack with an EF of 20% which a week later recovered to 53%, will be cautious with her fluids 3. Anxiety/depression -Stable -Continue with Wellbutrin and Paxil 4. Seizure disorder -Thought to be secondary to serotonin syndrome -Continue with her Keppra 500 mg p.o. twice daily DVT: Kajalqudylan Code Visit Inpatient E&M: 73143 Init Hosp L3 Procedures: 41140 Advncd Care Plan 30 Min
--- NOTE | 2019-04-25 22:14 | PCM.RX.CS ---
Consult Pharmacy has been consulted to manage selected antiobiotic: Vancomycin Type of Consult: New start Suspected Infection: Sepsis Prior Doses of Antibiotics Received/Current Regimen: Medications Vancomycin HCl (Vancomycin) 1,000 mg in 200 mls @ 200 mls/hr IV Q24H NAIF Discontinued Medications Vancomycin HCl 1,750 mg/ (Sodium Chloride) 535 mls @ 250 mls/hr IV X1 ONE Stop: 04/25/19 22:08 Last Admin: 04/25/19 20:52 Dose: 250 mls/hr Labs: Sodium 138 mmol/L (136-145) 04/25/19 18:14 Potassium 3.7 mmol/L (3.5-5.1) 04/25/19 18:14 Chloride 110 mmol/L (98-107) H 04/25/19 18:14 Carbon Dioxide 18.0 mmol/L (21.0-32.0) L 04/25/19 18:14 Anion Gap 10 (5-15) 04/25/19 18:14 BUN 19 mg/dL (7-18) H 04/25/19 18:14 Creatinine 1.12 mg/dL (0.55-1.02) H 04/25/19 18:14 Est GFR (MDRD) Af Amer 61 mL/min (>60) 04/25/19 18:14 Est GFR (MDRD) Non-Af 51 mL/min (>60) L 04/25/19 18:14 BUN/Creatinine Ratio 17.0 RATIO (10-20) 04/25/19 18:14 Glucose 189 mg/dL (74-106) H 04/25/19 18:14 Weight used for dosin.1 kg Estimated Creatinine Clearance: 36.5 Goal Trough: 15-20 mcg/mL Pharmacy Plan for Drug Dosing: Pharmacy Service will continue to monitor and adjust dosing as required. Follow-Up Labs: Trough Vancomycin Labs to be done on [date and time ordered]: 04/27/19 @2030
[2019-04-25 22:24] LABS: Reflex Lactate? Y
[2019-04-25] MEDS: 0.9% Normal Saline 1,000 ML 125 ML IV (23:32)
[2019-04-25 23:38] LABS: Lactic Acid 2.2 mmol/L (0.4-1.9)
[2019-04-26] VITALS (36 sets, daily range): BP systolic 97–126; BP diastolic 57–94; PULSE 96–139; RESP 12–42; TEMP 36.8–38; O2SAT 85–99
[2019-04-26 02:03] LABS: Lactic Acid 1.2 mmol/L (0.4-1.9)
[2019-04-26] MEDS: Ipratropium/Albuterol Sulfate 3 ML AMPUL.NEB INHALATION ×2 (04:15→07:03)
[2019-04-26] MEDS: 0.9% Saline Lock 10 ML Syringe IV (04:28)
[2019-04-26] MEDS: LORazepam 2 MG/ML Syringe 1 MG IV (04:35)
[2019-04-26 05:01] LABS: Base Excess -12 mmol/L (-2 to +2); Bicarbonate 14.9 mmol/L (22-26); Blood Gas Specimen Type ART; EPAP 8; FI02 45; IPAP 18; PO2 82 mmHG (75-100); RR 12; SITE R Brachial; SO2 94 % (95-99); Time Given 450; Total Carbon Dioxide 16 mmol/L; pCO2 33.6 mmHg (35-45); pH 7.26 (7.35-7.45)
[2019-04-26 05:02] LABS: Absolute Lymphocyte Count 1.46 X10^3/uL (0.83-4.51); Absolute Neutrophil Count 16.9 X10^3/uL (2.0-7.7); Basophil# 0.05 X10^3/uL; Basophil% 0.3 % (0-1); Eosinophil# 0.01 X10^3/uL; Eosinophils% 0.1 % (0-5); Hematocrit 40.2 % (37-47); Hemoglobin 11.9 g/dL (12.0-15.0); Lymphocyte # 1.46 X10^3/ul (4.0); Lymphocyte % 7.6 % (19-41); Mean Corp Hgb Conc 29.6 g/dL (32-36); Mean Corpuscular Hgb 26.1 pg (27.0-32.0); Mean Corpuscular Volume 88.2 fL (81-99); Mean Platelet Vol. 10.7 fl (6.2-12.0); Monocyte# 0.53 X10^3/uL; Monocyte% 2.8 % (0-10); NRBC Flagged by Analyzer 0 % (0-5); Neutrophil # 16.93 X10^3/uL (2.7-7.7); Neutrophil % 88.6 % (47-70); Platelet Count 387 K/mm3 (150-450); RBC Distribution Width CV 15.9 % (11.6-14.6); RBC Distribution Width SD 51.5 fl (35.1-43.9); Red Blood Count 4.56 M/mm3 (4.2-5.4); White Blood Count 19.1 K/mm3 (4.4-11.0)
[2019-04-26 05:07] LABS: Anion Gap 14 (5-15); BUN 26 mg/dL (7-18); BUN/Creat Ratio 18.6 RATIO (10-20); Calcium,Total 8.1 mg/dL (8.5-10.1); Chloride 111 mmol/L (98-107); EST Glomerular Filtration Rate 39 mL/min (>60); Est Glom Filt Rate - Afr Amer 47 mL/min (>60); Estimated Creatinine Clearance 27.88 ml/min; Glucose 175 mg/dL (74-106); Potassium 4.1 mmol/L (3.5-5.1); Sodium Level 140 mmol/L (136-145)
--- NOTE | 2019-04-26 05:24 | NURSING ---
Pt became distressed while being cleaned up from incontinent stool. Respirations elevated to 40 bpm, rapid HR in 130's, and difficulty speaking. Dr. Rosales provided order for ativan. Respiratory paged and provided breathing treatment for wheezes throughout meza. Gave ordered solumedrol. Air-vo applied by RT to assist in calming pt, post ABG which showed improvements from previous results.
--- NOTE | 2019-04-26 06:26 | PCM.CON.CC ---
Reason for Consult Date of Consultation: 04/26/19 Reason for Consultation: Acute on chronic combined respiratory failure History of Present Illness: The patient is a 74-year-old female, with a history as outlined below, who presented to the emergency department on April 25 with complaints of shortness of breath and a productive cough of 1 to 2 weeks duration. If you recall, the patient has a known history of severe obstructive lung disease and chronic hypoxemic respiratory failure, with a baseline 3 L/min oxygen requirement. She was last seen in the pulmonary medicine clinic on March 20, following a 2-week stay in the hospital in . During the patient's previous hospitalization, she was treated for a COPD exacerbation secondary to community-acquired pneumonia. The patient also experienced new onset seizure activity, for which she was started on Keppra. Of note, at the end of March 2018, the patient did undergo a modified barium swallow, which did reveal evidence of silent aspiration. On presentation to the emergency department, the patient was noted to be afebrile and hemodynamically stable. She was, nevertheless, tachycardic and tachypneic, requiring a nonrebreather to maintain oxygen saturations. The patient was eventually transitioned to BiPAP therapy. Laboratory evaluation revealed an elevated white blood cell count to 24,000 with left shift. INR was noted to be 1.2. Initial arterial blood gas on BiPAP with a pressure support of 16/8 centimeters of water, revealed a pH of 7.17 with a corresponding PCO2 of 50.2 and PO2 of 128. Chemistry profile was notable for a bicarbonate of 18 and creatinine of 1.12. Lactate was elevated to 6.0. Urinalysis was positive for nitrites and leukocyte esterase with 1+ urine bacteria noted. The patient was treated with aerosol treatments, antibiotics and fluids. She was subsequently admitted to the medical intensive care unit for further management. Of note, the patient's CODE STATUS was verified to be DNR CCA without intubation. Overnight, the patient was transitioned from BiPAP to Airvo, which she is currently tolerating. Past Medical History Past Medical History (Chronic Problems): Chronic Problems (Last Reviewed 03/20/19 @ 09:59 by JOANN Swenson) Pure hypercholesterolemia (Chronic) Essential hypertension (Chronic) COPD (chronic obstructive pulmonary disease) (Chronic) COPD with acute exacerbation (Chronic) Tinea unguium (Chronic) Presence of stent in coronary artery (Chronic) PTCA/SUSAN to ostium of LMT 10/01/2014 @[facility]; PTCA/SUSAN of the mid/distal RCA 11/11/17 CAD (coronary artery disease) (Chronic) Successful PTCA/SUSAN of the of mid/distal RCA with a 2.25 x 38 Promus Synergy, post dilated proximally with a 3.0 x 12 NC balloon at 8 safia (2.5mm); 75%-->0%, no dissection. Successful PTCA/SUSAN of the proximal RCA with a 2.5 x 20 Promus Synergy, post dilated with a 3.0 x 12 at 14 safia; 75%-->0%, no dissection. Tobacco abuse (Chronic) Congestive heart failure (Chronic) Nonrheumatic tricuspid (valve) insufficiency (Chronic) Nonrheumatic mitral valve insufficiency (Chronic) Nicotine dependence, cigarettes, uncomplicated (Chronic) Atherosclerosis of [place] coronary artery of [place] heart without angina pectoris (Chronic) PTCA/SUSAN to ostium of LMT 10/01/2014 @[facility]; PTCA/SUSAN to mid/distal RCA and proximal RCA in November 2017 at [facility]; SOB (shortness of breath) (Chronic) Medical History: Medical History (Last Reviewed 03/20/19 @ 09:59 by Melanie Domingo NP-C) Pure hypercholesterolemia (Chronic) E78.00 Essential hypertension (Chronic) I10 Presence of stent in coronary artery (Chronic) Z95.5 PTCA/SUSAN to ostium of LMT 10/01/2014 @[facility]; PTCA/SUSAN of the mid/distal RCA 11/11/17 Acute respiratory failure with hypoxia and hypercapnia (Acute) J96.01, J96.02 COPD with acute exacerbation (Acute) J44.1 Gram-negative pneumonia (Acute) J15.6 Acute hypercapnic respiratory failure (Acute) J96.02 NSTEMI (non-ST elevated myocardial infarction) (Acute) I21.4 COPD exacerbation (Acute) J44.1 CAD (coronary artery disease) (Chronic) I25.10 Successful PTCA/SUSAN of the of mid/distal RCA with a 2.25 x 38 Promus Synergy, post dilated proximally with a 3.0 x 12 NC balloon at 8 safia (2.5mm); 75%-->0%, no dissection. Successful PTCA/SUSAN of the proximal RCA with a 2.5 x 20 Promus Synergy, post dilated with a 3.0 x 12 at 14 safia; 75%-->0%, no dissection. Tobacco abuse (Chronic) Z72.0 Congestive heart failure (Chronic) I50.9 Nonrheumatic tricuspid (valve) insufficiency (Chronic) I36.1 Nonrheumatic mitral valve insufficiency (Chronic) I34.0 Nicotine dependence, cigarettes, uncomplicated (Chronic) F17.210 Atherosclerosis of [place] coronary artery of [place] heart without angina pectoris (Chronic) I25.10 PTCA/SUSAN to ostium of LMT 10/01/2014 @[facility]; PTCA/SUSAN to mid/distal RCA and proximal RCA in November 2017 at [facility]; Peripheral vascular disease (Suspected) I73.9 SOB (shortness of breath) (Chronic) R06.02 Anemia D64.9 COPD (chronic obstructive pulmonary disease) J44.9 Diabetes mellitus E11.9 Fibromyalgia M79.7 GERD (gastroesophageal reflux disease) K21.9 Hyperlipidemia E78.5 MARISABEL (obstructive sleep apnea) G47.33 Allergies codeine Allergy (Unknown, Verified 04/25/19 18:36) nausea, hives morphine Allergy (Unknown, Verified 04/25/19 18:36) Nausea naproxen [From Naprosyn] Allergy (Unknown, Verified 04/25/19 18:36) Hives Sulfa (Sulfonamide Antibiotics) Allergy (Unknown, Verified 04/25/19 18:36) Hives albuterol Allergy (Verified 04/25/19 18:36) Rash fentanyl Adverse Reaction (Severe, Verified 04/25/19 18:36) Rash OD on Fentany patch. Very sensitive to does 75mcg patch lithium Adverse Reaction (Unknown, Verified 04/25/19 18:36) anger phenobarbital Adverse Reaction (Unknown, Verified 04/25/19 18:36) anger Iodine and Iodide Containing Produc Adverse Reaction (Verified 04/25/19 18:36) Hives ipratropium [From DuoNeb] Adverse Reaction (Verified 04/25/19 18:36) Hives Penicillins [PCN] Adverse Reaction (Verified 04/25/19 18:36) Hives Home Medications: Ambulatory Orders Medication Instructions Recorded Gabapentin [Neurontin] 600 mg PO BID 07/13/14 cycloBENZAPRine HCl [Flexeril] 10 mg PO DAILY 07/13/14 Fluticasone/Vilanterol [Breo 1 ea IH DAILY 12/17/16 Ellipta 200-25 Mcg INH] Paroxetine HCl [Paxil] 40 mg PO DAILY 12/17/16 nitroglycerin 0.4 mg sublingual 0.4 mg SUBLINGUAL Q5M PRN #25 tab 03/25/17 tablet ranolazine 500 mg tablet,extended 500 mg PO BID #180 tab 03/25/17 release,12 hr Pantoprazole Sodium [Protonix] 40 mg PO DAILY 11/23/17 buPROPion SR [Wellbutrin SR (150mg 150 mg PO DAILY 11/23/17 tablets)] tiotropium bromide 2.5 2 puff INHALATION QDAY #1 ea 12/10/17 mcg/actuation mist for inhalation albuterol sulfate 90 mcg/actuation 2 puff INHALATION Q6H PRN #18 g 01/29/18 aerosol inhaler Aspirin [Aspirin, Baby] 81 mg PO DAILY@0800 03/30/18 Potassium Chloride [K-Dur] 20 meq PO BIDCM #20 tab 04/05/18 Apixaban [Eliquis] 5 mg PO DAILY 09/11/18 Atorvastatin Calcium 80 mg PO DAILY 09/11/18 DiphenhydrAMINE [Benadryl] 25 mg PO Q6H PRN PRN 09/11/18 Fenofibrate [Tricor] 200 mg PO DAILY 09/11/18 Ipratropium [Atrovent Inhaler] 2 puff INHALATION 4X/DAY 09/11/18 Levalbuterol HCl 1 puff INHALATION 4X/DAY PRN PRN 09/11/18 Metoprolol Tartrate 25 mg PO BID 09/11/18 Isosorbide Mononitrate [Isosorbide 60 mg PO DAILY 02/19/19 Mononitrate ER] Acetaminophen Liquid [Tylenol 650 mg PO Q6H PRN PRN udc 03/06/19 Liquid] Polyethylene Glycol 3350 [Miralax] 17 gm PO DAILY PRN packet 03/06/19 levETIRAcetam tablet [Keppra 500 mg PO BID tab 03/06/19 tablet] Amlodipine Besylate [Norvasc] 5 mg PO DAILY 04/25/19 Quetiapine Fumarate [Seroquel] 100 mg PO QHS 04/25/19 Surgical History: Surgical History (Last Reviewed 03/20/19 @ 09:59 by JOANN Swenson) H/O tubal ligation Z98.51 History of left heart catheterization Z98.890 Hx of appendectomy Z98.890, Z90.49 S/P femoral-femoral bypass surgery Z95.828 with gorortex graft in 2001; removal of infected graft with reconstructions of right superficial artery in 2002 Surgical History: appendectomy, - - cad with stent, this was carpal tunnel surgeries Psychiatric History: No pertinent psych hx 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 Smoking Status: Former smoker Alcohol: None Drugs: None - *Family History Maternal Family History: Family History (Last Reviewed 03/20/19 @ 09:59 by JOANN Swenson) Mother CAD (coronary artery disease) Hypertension Sister CAD (coronary artery disease) Myocardial infarction History Items: Diabetes, Heart Disease, Stroke Paternal Family History: Family History (Last Reviewed 03/20/19 @ 09:59 by RUFINO SwensonC) Mother CAD (coronary artery disease) Hypertension Sister CAD (coronary artery disease) Myocardial infarction History Items: Diabetes, Stroke Review of Systems Constitutional: Denies: Chills, Fever Eyes: Denies: Blurred vision, Double vision HEENT: Reports: Difficulty Swallowing, Dysphasia Cardiovascular: Denies: Chest Pain, Palpitations Respiratory: Reports: Cough, Shortness of Breath, Sputum production, Wheezing Gastrointestinal: Denies: Abdominal Pain, Nausea, Vomiting Genitourinary: Denies: Dysuria Musculoskeletal: Denies: Joint Pain, Joint Tenderness Skin: Denies: Rash, Wounds Neurological: Denies: Numbness, Tingling, Focal weakness Psychiatric: Reports: Anxiety Hematologic/ Lymphatic: Reports: Anemia, Hx of blood clot Patient Problems: Active and Suspected Problems (Last Reviewed 03/20/19 @ 09:59 by JOANN Swenson) Severe sepsis (Acute) Respiratory failure (Acute) Objective: The patient's most recent lab work, culture data and imaging studies have all been personally reviewed. Surface echocardiogram from February 2019 revealed normal LV size and function with an ejection fraction of 53%. - Physical Exam Vitals/I&O's: Vital Signs Temp Pulse Resp BP Pulse Ox 99.2 F H 122 H 36 H 116/63 96 04/26/19 06:00 04/26/19 06:00 04/26/19 06:00 04/26/19 06:00 04/26/19 06:00 Oxygen Flow Rate (L/min) 15 Oxygen Delivery Method Bi-pap Weight: 143 lb 8.335 oz Body Mass Index (BMI) 26.2 Intake and Output for Last 24 Hours 04/24/19 04/25/19 04/26/19 23:59 23:59 23:59 Intake Total 1185 / 1185 Output Total 200 / 200 Balance 985 / 985 General: Alert, Cooperative, No apparent distress, - - Sitting upright in bed. HEENT: Atraumatic, PERRLA, Normocephalic Oral: No Gingival or Mucosal Lesions/ Ulcerations Neck: Supple, No Nodes, Trachea Midline Lungs: Diminished, Tachypneic, Wheezes Cardiovascular: Normal S1, Normal S2, No murmurs, Tachycardic Abdomen: Bowel Sounds Present, Soft, Non Tender, Obese Extremities: No cyanosis, No edema, Clubbing Skin: No breakdown Musculoskeletal: No Tenderness to Palpation of Joints or Extremities Lymphatic: No Cervical, Supraclavicular, or Inguinal Adenopathy Neurological: Cranial nerves II-XII grossly intact, Neuro grossly intact Psych/Mental Status: Normal Affect, Appropriate Labs (Last 48 Hours) 04/25/19 04/25/19 04/25/19 18:14 18:14 18:14 WBC 23.7 H RBC 4.21 Hgb 11.2 L Hct 38.0 MCV 90.3 MCH 26.6 L MCHC 29.5 L RDW Std Deviation 51.6 H RDW Coeff of Abhinav 15.7 H Plt Count 534 H MPV 10.6 Immature Gran % (Auto) 1.400 H Neut % (Auto) 73.4 H Lymph % (Auto) 12.4 L [place] % (Auto) 7.3 Eos % (Auto) 4.9 Baso % (Auto) 0.6 Absolute Neuts (auto) 17.4 H Absolute Lymphs (auto) 2.95 Nucleated RBC % 0.1 Differential Comment SCANNED Diff Path Review May foll Platelet Estimate MOD INC RBC Morphology NORM C+C PT 15.3 H INR 1.2 APTT 32.3 Specimen Type Sample Site pH Bicarbonate Actual POC Total CO2 Base Excess O2 Saturation O2 % ABG pCO2 ABG pO2 Angelo Test Respiration Rate O2 Delivery Device EPAP IPAP Blood Gas Notified Whom Blood Gas Notified Time Sodium 138 Potassium 3.7 Chloride 110 H Carbon Dioxide 18.0 L Anion Gap 10 BUN 19 H Creatinine 1.12 H Estim Creat Clear Calc 36.45 Est GFR (MDRD) Af Amer 61 Est GFR (MDRD) Non-Af 51 L BUN/Creatinine Ratio 17.0 Glucose 189 H Lactic Acid Calcium 8.4 L Total Bilirubin 0.30 AST 28 ALT 23 Alkaline Phosphatase 145 H Total Protein 7.4 Albumin 2.6 L Globulin 4.8 H Albumin/Globulin Ratio 0.5 L Urine Color Urine Clarity Urine pH Ur Specific [place] Urine Protein Urine Glucose (UA) Urine Ketones Urine Occult Blood Urine Nitrite Urine Bilirubin Urine Urobilinogen Ur Leukocyte Esterase Urine RBC Urine WBC Ur Squamous Epith Cells Urine Bacteria Urine Mucus 04/25/19 04/25/19 04/25/19 18:14 18:29 18:55 WBC RBC Hgb Hct MCV MCH MCHC RDW Std Deviation RDW Coeff of Abhinav Plt Count MPV Immature Gran % (Auto) Neut % (Auto) Lymph % (Auto) [place] % (Auto) Eos % (Auto) Baso % (Auto) Absolute Neuts (auto) Absolute Lymphs (auto) Nucleated RBC % Differential Comment Diff Path Review Platelet Estimate RBC Morphology PT INR APTT Specimen Type ART Sample Site R Brachial pH 7.17 L* Bicarbonate Actual 18.2 L POC Total CO2 20 Base Excess -10 L O2 Saturation 98 O2 % 100 ABG pCO2 50.2 H ABG pO2 128 H Angelo Test POS Respiration Rate 12 O2 Delivery Device Bi / C PAP EPAP 8 IPAP 16 Blood Gas Notified Whom ED Blood Gas Notified Time 1825 Sodium Potassium Chloride Carbon Dioxide Anion Gap BUN Creatinine Estim Creat Clear Calc Est GFR (MDRD) Af Amer Est GFR (MDRD) Non-Af BUN/Creatinine Ratio Glucose Lactic Acid 6.0 H* Calcium Total Bilirubin AST ALT Alkaline Phosphatase Total Protein Albumin Globulin Albumin/Globulin Ratio Urine Color Yellow Urine Clarity Clear Urine pH 6.0 Ur Specific [place] 1.020 Urine Protein 100 H Urine Glucose (UA) Normal Urine Ketones Negative Urine Occult Blood 25 H Urine Nitrite Positive H Urine Bilirubin Negative Urine Urobilinogen Normal Ur Leukocyte Esterase 25 H Urine RBC 0 SEEN Urine WBC 0-5 SEEN Ur Squamous Epith Cells 0-5 SEEN Urine Bacteria 1+ Urine Mucus 0 SEEN 0204/26/19 04/26/19 22:45 01:20 04:25 WBC 19.1 H RBC 4.56 Hgb 11.9 L Hct 40.2 MCV 88.2 MCH 26.1 L MCHC 29.6 L RDW Std Deviation 51.5 H RDW Coeff of Abhinav 15.9 H Plt Count 387 MPV 10.7 Immature Gran % (Auto) 0.600 Neut % (Auto) 88.6 H Lymph % (Auto) 7.6 L [place] % (Auto) 2.8 Eos % (Auto) 0.1 Baso % (Auto) 0.3 Absolute Neuts (auto) 16.9 H Absolute Lymphs (auto) 1.46 Nucleated RBC % 0 Differential Comment Diff Path Review Platelet Estimate RBC Morphology PT INR APTT Specimen Type Sample Site pH Bicarbonate Actual POC Total CO2 Base Excess O2 Saturation O2 % ABG pCO2 ABG pO2 Angelo Test Respiration Rate O2 Delivery Device EPAP IPAP Blood Gas Notified Whom Blood Gas Notified Time Sodium Potassium Chloride Carbon Dioxide Anion Gap BUN Creatinine Estim Creat Clear Calc Est GFR (MDRD) Af Amer Est GFR (MDRD) Non-Af BUN/Creatinine Ratio Glucose Lactic Acid 2.2 H* 1.2 Calcium Total Bilirubin AST ALT Alkaline Phosphatase Total Protein Albumin Globulin Albumin/Globulin Ratio Urine Color Urine Clarity Urine pH Ur Specific [place] Urine Protein Urine Glucose (UA) Urine Ketones Urine Occult Blood Urine Nitrite Urine Bilirubin Urine Urobilinogen Ur Leukocyte Esterase Urine RBC Urine WBC Ur Squamous Epith Cells Urine Bacteria Urine Mucus 04/26/19 04/26/19 04:25 04:55 WBC RBC Hgb Hct MCV MCH MCHC RDW Std Deviation RDW Coeff of Abhinav Plt Count MPV Immature Gran % (Auto) Neut % (Auto) Lymph % (Auto) [place] % (Auto) Eos % (Auto) Baso % (Auto) Absolute Neuts (auto) Absolute Lymphs (auto) Nucleated RBC % Differential Comment Diff Path Review Platelet Estimate RBC Morphology PT INR APTT Specimen Type ART Sample Site R Brachial pH 7.26 L Bicarbonate Actual 14.9 L POC Total CO2 16 Base Excess -12 L O2 Saturation 94 L O2 % 45 ABG pCO2 33.6 L ABG pO2 82 Angelo Test NA Respiration Rate 12 O2 Delivery Device Bi / C PAP EPAP 8 IPAP 18 Blood Gas Notified Whom ICU MD Blood Gas Notified Time 450 Sodium 140 Potassium 4.1 Chloride 111 H Carbon Dioxide 15.0 L Anion Gap 14 BUN 26 H Creatinine 1.40 H Estim Creat Clear Calc 27.88 Est GFR (MDRD) Af Amer 47 L Est GFR (MDRD) Non-Af 39 L BUN/Creatinine Ratio 18.6 Glucose 175 H Lactic Acid Calcium 8.1 L Total Bilirubin AST ALT Alkaline Phosphatase Total Protein Albumin Globulin Albumin/Globulin Ratio Urine Color Urine Clarity Urine pH Ur Specific [place] Urine Protein Urine Glucose (UA) Urine Ketones Urine Occult Blood Urine Nitrite Urine Bilirubin Urine Urobilinogen Ur Leukocyte Esterase Urine RBC Urine WBC Ur Squamous Epith Cells Urine Bacteria Urine Mucus Clinical Impression(s) from Imaging Studies Chest X-Ray 04/25/19 18:35 IMPRESSION: 1. No airspace consolidation or pleural effusion. 2. Basilar dominant parenchymal fibrosis. Electronically Signed: Aidan Kulkarni MD ([place]) at 18:53 EST , Service support , Current Medications Acetaminophen (Tylenol) 650 mg PO Q6H PRN PRN PRN Reason: Pain Score 1-10/Temp > 100.7 F Albuterol/Ipratropium (Duoneb) 3 ml INHALATION Q4HWA.RT [facility] Last Admin: 04/26/19 04:15 Dose: 3 ml Documented by: Apixaban (Eliquis) 5 mg PO DAILY [facility] Aspirin (Aspirin, Baby) 81 mg PO DAILY@0800 [facility] Atorvastatin Calcium (Lipitor) 80 mg PO DAILY@2200 [facility] Bupropion HCl (Wellbutrin Sr (150mg Tablets)) 150 mg PO DAILY [facility] Cyclobenzaprine HCl (Flexeril) 10 mg PO DAILY [facility] Fenofibrate (Tricor) [facility] Gabapentin (Neurontin) 600 mg PO BID [facility] Sodium Chloride () 1,000 mls @ 125 mls/hr IV .Q8H [facility] Last Admin: 04/25/19 23:32 Dose: 125 mls/hr Documented by: Cefepime HCl 2 gm/ Sodium (Chloride) 100 mls @ 200 mls/hr IV Q24@2200 [facility] Vancomycin IV Pharmacy to Dose (1 ea/ Sodium Chloride) 500 mls @ 250 mls/hr IV PRN PRN; Protocol PRN Reason: Rx to Dose Sodium Chloride () 250 mls @ 15 mls/hr IV .[id number] PRN PRN Reason: Saline Flush Sodium Chloride () 250 mls @ 15 mls/hr IV .[id number] PRN PRN Reason: Additional IVPB Infusion Vancomycin HCl (Vancomycin) 1,000 mg in 200 mls @ 200 mls/hr IV Q24H [facility] Influenza Virus Vaccine Quadrival (Flucelvax /Fluzone ) 0.5 ml IM .ONCE ONE Stop: 04/26/19 10:01 Levetiracetam (Keppra Tablet) 500 mg PO BID [facility] Melatonin (Melatonin) 3 mg PO QHS PRN PRN PRN Reason: INSOMNIA Methylprednisolone (Solu-Medrol) 40 mg IV Q8 [facility] Last Admin: 04/26/19 05:03 Dose: 40 mg Documented by: Ondansetron HCl (Zofran) 4 mg IV Q8H PRN PRN PRN Reason: NAUSEA/VOMITING Pantoprazole Sodium (Protonix) 40 mg PO DAILY [facility] Quetiapine Fumarate (Seroquel) 100 mg PO QHS [facility] Ranolazine (Ranexa) 500 mg PO BID [facility] Sodium Chloride () 10 - 40 ml IV UD PRN PRN Reason: SALINE FLUSH Last Admin: 04/26/19 04:28 Dose: 10 ml Documented by: Assessment/Plan Active and Suspected Problems (Last Reviewed 03/20/19 @ 09:59 by Melanie Domingo NP-C) Severe sepsis (Acute) Respiratory failure (Acute) RECOMMENDATIONS: 1. Continue Airvo and wean FiO2 to maintain oxygen saturations at or above 88%. 2. Continue Eliquis. 3. Continue broad-spectrum antimicrobials, pending infectious work-up. 4. Continue bronchodilators and IV steroids. 5. Obtain speech therapy consultation, given history of silent aspiration. IMPRESSIONS: 1. Acute on chronic combined respiratory failure likely secondary to COPD with exacerbation Exact precipitating etiology unclear. The patient's presenting plain film chest x-ray did not reveal evidence of a focal infiltrate. I cannot discount the possibility of an underlying viral infection versus tracheobronchitis. Accordingly, the patient will be continued on broad-spectrum antimicrobials, pending infectious work-up. We will plan to check MRSA screen, along with respiratory viral panel. We will plan to continue scheduled bronchodilators and IV steroids. The patient will be continued on Airvo, in place of conventional BiPAP, for patient comfort. Wean FiO2 to maintain oxygen saturations at or above 88%. Encourage incentive spirometer use and mobilize patient as tolerated. 2. Severe sepsis with unclear source Although there was no evidence of pneumonia on chest x-ray, there is still some clinical concern for potential upper respiratory viral infection, tracheobronchitis or urinary tract source of infection. Therefore, the patient will be continued on empiric antimicrobials, pending infectious work-up. 3. Acute kidney injury Potentially related to normal saline utilized for volume resuscitation. I would recommend that we hold any additional supplemental IV fluids for now. Continue to monitor urine output. Avoid nephrotoxic medications. 4. History of venous thromboembolic disease The patient does have a history of pulmonary emboli, for which she will be continued on Eliquis per outpatient regimen. 5. History of unspecified seizure disorder Continue Keppra per outpatient regimen. 6. Tobacco dependency, currently in remission/hypertension/hyperlipidemia/peripheral vascular disease Complicates care, management, recovery and prognosis. Okay to continue home medications as indicated. Physical therapy to evaluate the patient today. TIME: 38 minutes of critical care time, independent of procedures, was spent addressing the patient's acute on chronic combined respiratory failure, COPD with exacerbation, severe sepsis, acute kidney injury, review of all data and collaboration with the care team. ([id number]) Code Visit 9xxxx: [id number] Critical care first hour
--- NOTE | 2019-04-26 08:56 | CPS ---
pt on Airvo.
[2019-04-26] MEDS: Ranolazine 500 MG Tablet PO ×2 (10:15→21:18)
[2019-04-26] MEDS: Gabapentin 600 MG Tablet PO ×2 (10:15→21:18)
[2019-04-26] MEDS: Fenofibrate 145 MG Tablet PO (10:15)
[2019-04-26] MEDS: buPROPion (SR) 150 MG Tablet.SA PO (10:15)
[2019-04-26] MEDS: Pantoprazole Sodium 40 MG Tablet PO (10:15)
[2019-04-26] MEDS: APIXABAN 5 MG TABLET PO ×2 (10:15→21:18)
[2019-04-26] MEDS: cycloBENZAPRine HCl 10 MG Tablet PO (10:15)
[2019-04-26] MEDS: levETIRAcetam 500 MG Tablet PO ×2 (10:15→21:18)
[2019-04-26] MEDS: Aspirin 81 MG TAB.CHEW PO (10:15)
--- NOTE | 2019-04-26 11:22 | PCM.PROGNOTE ---
Patient Problems: Active and Suspected Problems (Last Reviewed 03/20/19 @ 09:59 by Melanie Domingo NP-C) Severe sepsis (Acute) Respiratory failure (Acute) - Physical Exam Vitals/I&O's: Vital Signs Temp Pulse Resp BP Pulse Ox 99.9 F H 125 H 28 H 120/57 L 94 04/26/19 11:00 04/26/19 11:00 04/26/19 11:00 04/26/19 11:00 04/26/19 11:00 Oxygen Flow Rate (L/min) 15 Oxygen Delivery Method Bi-pap Weight: 143 lb 8.335 oz Body Mass Index (BMI) 26.2 Intake and Output for Last 24 Hours 04/24/19 04/25/19 04/26/19 23:59 23:59 23:59 Intake Total 1185 / 1185 1081.25 / 1081.25 Output Total 200 / 200 450 / 450 Balance 985 / 985 631.25 / 631.25 Laboratory Results 04/25/19 18:14: WBC 23.7 H, RBC 4.21, Hgb 11.2 L, Hct 38.0, MCV 90.3, MCH 26.6 L, MCHC 29.5 L, RDW Std Deviation 51.6 H, RDW Coeff of Abhinav 15.7 H, Plt Count 534 H, MPV 10.6, Immature Gran % (Auto) 1.400 H, Neut % (Auto) 73.4 H, Lymph % (Auto) 12.4 L, [place] % (Auto) 7.3, Eos % (Auto) 4.9, Baso % (Auto) 0.6, Absolute Neuts (auto) 17.4 H, Absolute Lymphs (auto) 2.95, Nucleated RBC % 0.1, Differential Comment SCANNED, Diff Path Review July foll, Platelet Estimate MOD INC, RBC Morphology NORM C+C 04/25/19 18:14: PT 15.3 H, INR 1.2, APTT 32.3 04/25/19 18:14: Sodium 138, Potassium 3.7, Chloride 110 H, Carbon Dioxide 18.0 L, Anion Gap 10, BUN 19 H, Creatinine 1.12 H, Estim Creat Clear Calc 36.45, Est GFR (MDRD) Af Amer 61, Est GFR (MDRD) Non-Af 51 L, BUN/Creatinine Ratio 17.0, Glucose 189 H, Calcium 8.4 L, Total Bilirubin 0.30, AST 28, ALT 23, Alkaline Phosphatase 145 H, Total Protein 7.4, Albumin 2.6 L, Globulin 4.8 H, Albumin/Globulin Ratio 0.5 L 04/25/19 18:14: Lactic Acid 6.0 H* 04/25/19 18:29: Specimen Type ART, Sample Site R Brachial, pH 7.17 L*, Bicarbonate Actual 18.2 L, POC Total CO2 20, Base Excess -10 L, O2 Saturation 98, O2 % 100, ABG pCO2 50.2 H, ABG pO2 128 H, Angelo Test POS, Respiration Rate 12, O2 Delivery Device Bi / C PAP, EPAP 8, IPAP 16, Blood Gas Notified Whom ED , Blood Gas Notified Time 1825 04/25/19 18:55: Urine Color Yellow, Urine Clarity Clear, Urine pH 6.0, Ur Specific [place] 1.020, Urine Protein 100 H, Urine Glucose (UA) Normal, Urine Ketones Negative, Urine Occult Blood 25 H, Urine Nitrite Positive H, Urine Bilirubin Negative, Urine Urobilinogen Normal, Ur Leukocyte Esterase 25 H, Urine RBC 0 SEEN, Urine WBC 0-5 SEEN, Ur Squamous Epith Cells 0-5 SEEN, Urine Bacteria 1+, Urine Mucus 0 SEEN 04/25/19 22:45: Lactic Acid 2.2 H* 04/26/19 01:20: Lactic Acid 1.2 04/26/19 04:25: WBC 19.1 H, RBC 4.56, Hgb 11.9 L, Hct 40.2, MCV 88.2, MCH 26.1 L, MCHC 29.6 L, RDW Std Deviation 51.5 H, RDW Coeff of Abhinav 15.9 H, Plt Count 387, MPV 10.7, Immature Gran % (Auto) 0.600, Neut % (Auto) 88.6 H, Lymph % (Auto) 7.6 L, [place] % (Auto) 2.8, Eos % (Auto) 0.1, Baso % (Auto) 0.3, Absolute Neuts (auto) 16.9 H, Absolute Lymphs (auto) 1.46, Nucleated RBC % 0 04/26/19 04:25: Sodium 140, Potassium 4.1, Chloride 111 H, Carbon Dioxide 15.0 L, Anion Gap 14, BUN 26 H, Creatinine 1.40 H, Estim Creat Clear Calc 27.88, Est GFR (MDRD) Af Amer 47 L, Est GFR (MDRD) Non-Af 39 L, BUN/Creatinine Ratio 18.6, Glucose 175 H, Calcium 8.1 L 04/26/19 04:55: Specimen Type ART, Sample Site R Brachial, pH 7.26 L, Bicarbonate Actual 14.9 L, POC Total CO2 16, Base Excess -12 L, O2 Saturation 94 L, O2 % 45, ABG pCO2 33.6 L, ABG pO2 82, Angelo Test NA, Respiration Rate 12, O2 Delivery Device Bi / C PAP, EPAP 8, IPAP 18, Blood Gas Notified Whom ICU MD, Blood Gas Notified Time 450 Current Medications Acetaminophen (Tylenol) 650 mg PO Q6H PRN PRN PRN Reason: Pain Score 1-10/Temp > 100.7 F Albuterol/Ipratropium (Duoneb) 3 ml INHALATION Q4HWA.RT [facility] Last Admin: 04/26/19 07:03 Dose: 3 ml Documented by: Apixaban (Eliquis) 5 mg PO DAILY [facility] Last Admin: 04/26/19 10:15 Dose: 5 mg Documented by: Aspirin (Aspirin, Baby) 81 mg PO DAILY@0800 [facility] Last Admin: 04/26/19 10:15 Dose: 81 mg Documented by: Atorvastatin Calcium (Lipitor) 80 mg PO DAILY@2200 [facility] Bupropion HCl (Wellbutrin Sr (150mg Tablets)) 150 mg PO DAILY [facility] Last Admin: 04/26/19 10:15 Dose: 150 mg Documented by: Chlorhexidine Gluconate () 1 each TOPICAL DAILY [facility] Last Admin: 04/26/19 10:33 Dose: Not Given Documented by: Cyclobenzaprine HCl (Flexeril) 10 mg PO DAILY [facility] Last Admin: 04/26/19 10:15 Dose: 10 mg Documented by: [facility] Admin: 04/26/19 10:15 Dose: 145 mg Documented by: Gabapentin (Neurontin) 600 mg PO BID [facility] Last Admin: 04/26/19 10:15 Dose: 600 mg Documented by: Cefepime HCl 2 gm/ Sodium (Chloride) 100 mls @ 200 mls/hr IV Q24@2200 NAIF Sodium Chloride () 250 mls @ 15 mls/hr IV .[id number] PRN PRN Reason: Saline Flush Sodium Chloride () 250 mls @ 15 mls/hr IV .[id number] PRN PRN Reason: Additional IVPB Infusion Levetiracetam (Keppra Tablet) 500 mg PO BID [facility] Last Admin: 04/26/19 10:15 Dose: 500 mg Documented by: Melatonin (Melatonin) 3 mg PO QHS PRN PRN PRN Reason: INSOMNIA Methylprednisolone (Solu-Medrol) 40 mg IV Q8 [facility] Last Admin: 04/26/19 05:03 Dose: 40 mg Documented by: Ondansetron HCl (Zofran) 4 mg IV Q8H PRN PRN PRN Reason: NAUSEA/VOMITING Pantoprazole Sodium (Protonix) 40 mg PO DAILY [facility] Last Admin: 04/26/19 10:15 Dose: 40 mg Documented by: Quetiapine Fumarate (Seroquel) 100 mg PO QHS [facility] Ranolazine (Ranexa) 500 mg PO BID [facility] Last Admin: 04/26/19 10:15 Dose: 500 mg Documented by: Sodium Chloride () 10 - 40 ml IV UD PRN PRN Reason: SALINE FLUSH Last Admin: 04/26/19 04:28 Dose: 10 ml Documented by: Medical Necessity - Tobacco Use Smoking Status: Former smoker Assessment/Plan All Active Problems (Last Reviewed 03/20/19 @ 09:59 by Melanie Domingo, TECHNICIAN ASSISTANT-C) Severe sepsis (Acute) Respiratory failure (Acute) Lower respiratory infection (Acute) Acute respiratory failure with hypoxia and hypercapnia (Acute) Pneumonia (Acute) Sepsis (Acute) Pulmonary embolism (Acute) Cholelithiasis NOS (Acute) Acute respiratory failure with hypoxia and hypercapnia (Acute) COPD with acute exacerbation (Acute) Gram-negative pneumonia (Acute) Acute hypercapnic respiratory failure (Acute) NSTEMI (non-ST elevated myocardial infarction) (Acute) COPD exacerbation (Acute)
--- NOTE | 2019-04-26 13:04 | PCM.PN.HOSP ---
Patient Problems: Active and Suspected Problems (Last Reviewed 03/20/19 @ 09:59 by JOANN Swenson) Severe sepsis (Acute) Respiratory failure (Acute) Reason for Visit: SOB Subjective: Pt on hi flow O2. Still SOB and with conversational dyspnea, tachypnea. She has a nonproductive cough. Objective fevers overnight tmax 101.5. She has no LE edema. No abd pain, nausea, vomiting, or diarrhea. Vitals/I&O's: Vital Signs Temp Pulse Resp BP Pulse Ox 99.7 F H 128 H 26 H 106/60 95 04/26/19 12:00 04/26/19 12:00 04/26/19 12:00 04/26/19 12:00 04/26/19 12:00 Oxygen Flow Rate (L/min) 3 Oxygen Delivery Method Room Air Weight: 143 lb 8.335 oz Body Mass Index (BMI) 26.2 Intake and Output for Last 24 Hours 04/24/19 04/25/19 04/26/19 23:59 23:59 23:59 Intake Total 1185 / 1185 1381.25 / 1381.25 Output Total 200 / 200 950 / 950 Balance 985 / 985 431.25 / 431.25 General: Alert, Oriented x3, Cooperative HEENT: Atraumatic, PERRLA, EOMI, Normocephalic Neck: Supple, No JVD, Negative Carotid Bruits Lungs: Diminished, Wheezes Cardiovascular: Murmur - 3/6 systolic murmur best over LSB, Tachycardic Abdomen: Bowel Sounds Present, Soft, Non Tender Extremities: No edema, Capillary Refill Less than 3 Seconds Skin: No rashes, No breakdown Musculoskeletal: No Tenderness to Palpation of Joints or Extremities Neurological: Cranial nerves II-XII grossly intact Psych/Mental Status: Normal Affect, Appropriate, Alert and oriented to time, place, person, mood and affect Microbiology Past 72 Hours 04/26/19 07:20 Mucosa - Nasopharyngeal Respiratory Panel (PCR) - Final Rhinovirus Laboratory Results 04/25/19 18:14: WBC 23.7 H, RBC 4.21, Hgb 11.2 L, Hct 38.0, MCV 90.3, MCH 26.6 L, MCHC 29.5 L, RDW Std Deviation 51.6 H, RDW Coeff of Abhinav 15.7 H, Plt Count 534 H, MPV 10.6, Immature Gran % (Auto) 1.400 H, Neut % (Auto) 73.4 H, Lymph % (Auto) 12.4 L, [place] % (Auto) 7.3, Eos % (Auto) 4.9, Baso % (Auto) 0.6, Absolute Neuts (auto) 17.4 H, Absolute Lymphs (auto) 2.95, Nucleated RBC % 0.1, Differential Comment SCANNED, Diff Path Review May foll, Platelet Estimate MOD INC, RBC Morphology NORM C+C 04/25/19 18:14: PT 15.3 H, INR 1.2, APTT 32.3 04/25/19 18:14: Sodium 138, Potassium 3.7, Chloride 110 H, Carbon Dioxide 18.0 L, Anion Gap 10, BUN 19 H, Creatinine 1.12 H, Estim Creat Clear Calc 36.45, Est GFR (MDRD) Af Amer 61, Est GFR (MDRD) Non-Af 51 L, BUN/Creatinine Ratio 17.0, Glucose 189 H, Calcium 8.4 L, Total Bilirubin 0.30, AST 28, ALT 23, Alkaline Phosphatase 145 H, Total Protein 7.4, Albumin 2.6 L, Globulin 4.8 H, Albumin/Globulin Ratio 0.5 L 04/25/19 18:14: Lactic Acid 6.0 H* 04/25/19 18:29: Specimen Type ART, Sample Site R Brachial, pH 7.17 L*, Bicarbonate Actual 18.2 L, POC Total CO2 20, Base Excess -10 L, O2 Saturation 98, O2 % 100, ABG pCO2 50.2 H, ABG pO2 128 H, Angelo Test POS, Respiration Rate 12, O2 Delivery Device Bi / C PAP, EPAP 8, IPAP 16, Blood Gas Notified Whom ED , Blood Gas Notified Time 1825 04/25/19 18:55: Urine Color Yellow, Urine Clarity Clear, Urine pH 6.0, Ur Specific [place] 1.020, Urine Protein 100 H, Urine Glucose (UA) Normal, Urine Ketones Negative, Urine Occult Blood 25 H, Urine Nitrite Positive H, Urine Bilirubin Negative, Urine Urobilinogen Normal, Ur Leukocyte Esterase 25 H, Urine RBC 0 SEEN, Urine WBC 0-5 SEEN, Ur Squamous Epith Cells 0-5 SEEN, Urine Bacteria 1+, Urine Mucus 0 SEEN 02/22/20 22:45: Lactic Acid 2.2 H* 04/26/19 01:20: Lactic Acid 1.2 04/26/19 04:25: WBC 19.1 H, RBC 4.56, Hgb 11.9 L, Hct 40.2, MCV 88.2, MCH 26.1 L, MCHC 29.6 L, RDW Std Deviation 51.5 H, RDW Coeff of Abhinav 15.9 H, Plt Count 387, MPV 10.7, Immature Gran % (Auto) 0.600, Neut % (Auto) 88.6 H, Lymph % (Auto) 7.6 L, [place] % (Auto) 2.8, Eos % (Auto) 0.1, Baso % (Auto) 0.3, Absolute Neuts (auto) 16.9 H, Absolute Lymphs (auto) 1.46, Nucleated RBC % 0 04/26/19 04:25: Sodium 140, Potassium 4.1, Chloride 111 H, Carbon Dioxide 15.0 L, Anion Gap 14, BUN 26 H, Creatinine 1.40 H, Estim Creat Clear Calc 27.88, Est GFR (MDRD) Af Amer 47 L, Est GFR (MDRD) Non-Af 39 L, BUN/Creatinine Ratio 18.6, Glucose 175 H, Calcium 8.1 L 04/26/19 04:55: Specimen Type ART, Sample Site R Brachial, pH 7.26 L, Bicarbonate Actual 14.9 L, POC Total CO2 16, Base Excess -12 L, O2 Saturation 94 L, O2 % 45, ABG pCO2 33.6 L, ABG pO2 82, Agnelo Test NA, Respiration Rate 12, O2 Delivery Device Bi / C PAP, EPAP 8, IPAP 18, Blood Gas Notified Whom ICU MD, Blood Gas Notified Time 450 Current Medications Acetaminophen (Tylenol) 650 mg PO Q6H PRN PRN PRN Reason: Pain Score 1-10/Temp > 100.7 F Apixaban (Eliquis) 5 mg PO DAILY [facility] Last Admin: 04/26/19 10:15 Dose: 5 mg Documented by: Aspirin (Aspirin, Baby) 81 mg PO DAILY@0800 [facility] Last Admin: 04/26/19 10:15 Dose: 81 mg Documented by: Atorvastatin Calcium (Lipitor) 80 mg PO DAILY@2200 [facility] Bupropion HCl (Wellbutrin Sr (150mg Tablets)) 150 mg PO DAILY [facility] Last Admin: 04/26/19 10:15 Dose: 150 mg Documented by: Chlorhexidine Gluconate () 1 each TOPICAL DAILY [facility] Last Admin: 04/26/19 10:33 Dose: Not Given Documented by: Cyclobenzaprine HCl (Flexeril) 10 mg PO DAILY [facility] Last Admin: 04/26/19 10:15 Dose: 10 mg Documented by: Fenofibrate (Tricor) 145 mg PO DAILYCM [facility] Last Admin: 04/26/19 10:15 Dose: 145 mg Documented by: Gabapentin (Neurontin) 600 mg PO BID [facility] Last Admin: 04/26/19 10:15 Dose: 600 mg Documented by: Cefepime HCl 2 gm/ Sodium (Chloride) 100 mls @ 200 mls/hr IV Q24@2200 [facility] Sodium Chloride () 250 mls @ 15 mls/hr IV .[id number] PRN PRN Reason: Saline Flush Sodium Chloride () 250 mls @ 15 mls/hr IV .[id number] PRN PRN Reason: Additional IVPB Infusion Levetiracetam (Keppra Tablet) 500 mg PO BID [facility] Last Admin: 04/26/19 10:15 Dose: 500 mg Documented by: Melatonin (Melatonin) 3 mg PO QHS PRN PRN PRN Reason: INSOMNIA Methylprednisolone (Solu-Medrol) 40 mg IV Q8 [facility] Last Admin: 04/26/19 05:03 Dose: 40 mg Documented by: Ondansetron HCl (Zofran) 4 mg IV Q8H PRN PRN PRN Reason: NAUSEA/VOMITING Pantoprazole Sodium (Protonix) 40 mg PO DAILY [facility] Last Admin: 04/26/19 10:15 Dose: 40 mg Documented by: Quetiapine Fumarate (Seroquel) 100 mg PO QHS [facility] Ranolazine (Ranexa) 500 mg PO BID [facility] Last Admin: 04/26/19 10:15 Dose: 500 mg Documented by: Sodium Chloride () 10 - 40 ml IV UD PRN PRN Reason: SALINE FLUSH Last Admin: 04/26/19 04:28 Dose: 10 ml Documented by: STROKE Vital Signs/Narrative: Vital Signs Temp Pulse Resp BP BP Pulse Ox 04/26/19 12:00 99.7 F H 128 H 26 H 106/60 95 04/26/19 11:00 99.9 F H 125 H 28 H 120/57 L 94 04/26/19 10:00 99.7 F H 126 H 39 H 119/87 H 94 Medical Necessity - Tobacco Use Smoking Status: Former smoker Assessment/Plan All Active Problems (Last Reviewed 03/20/19 @ 09:59 by Melanie Domingo NP-[place]) Severe sepsis (Acute) Respiratory failure (Acute) Lower respiratory infection (Acute) Acute respiratory failure with hypoxia and hypercapnia (Acute) Pneumonia (Acute) Sepsis (Acute) Pulmonary embolism (Acute) Cholelithiasis NOS (Acute) Acute respiratory failure with hypoxia and hypercapnia (Acute) COPD with acute exacerbation (Acute) Gram-negative pneumonia (Acute) Acute hypercapnic respiratory failure (Acute) NSTEMI (non-ST elevated myocardial infarction) (Acute) COPD exacerbation (Acute) 1. Acute severe sepsis 2/2 possible pna, acute on chronic hypoxic / hypercapnic resp failure with COPD exacerbation - continue O2, aerosols, cefepime. + fevers, wbc elevation (improving) pH 7.17 on initial ABG with CO2 50.2, these are improving on repeat. LA 6.0 on admission now normal. Tmax 101.5. + tachycardia, tahcypnea. conversational dyspnea. Panculture. mrsa swab neg. ST evals with dysphagia hx. -? ipratropium/duoneb allergy - pt is on both tiotropium and ipratropium at home. 2. CAD - prior stents. aspirin/statin/ranolazine, imdur currently held. 3. Dysphagia - ST evals 4. Hx anx/depression - wellbutrin, seroquel, melatonin 5. Hx seizure disorder - keppra 6. Hx PE - eliquis 7. Tobacco abuse - states she has quit this time. 8. HTN - stable 9. HLD - tricor, statin 10. GERD - on ppi 11. MARISABEL - no bipap at home. she does not like the mask. Perhaps she may be willing to try the nasal pillow. 12. Fibromyalgia - neurontin, flexeril 13. CKDIII - stable. trend. DVT ppx: julián WOOD planning: PTOT, wean o2 as tolerated. This patient was seen by Valentin Rivera PA-C under the supervision of Dr. Jacobs
[2019-04-26] MEDS: LEVALBUTEROL HCL 0.63 MG/3 ML VIAL.NEB IH ×2 (15:48→19:45)
--- NOTE | 2019-04-26 16:09 | CPS ---
pt was weaned to 40% AND 45L FLOW ON AIRVO. SATS 92%
[2019-04-26] MEDS: 0.9% Normal Saline 1,000 ML 75 ML IV (16:35)
[2019-04-26] MEDS: QUEtiapine 100 MG Tablet PO (21:18)
[2019-04-26] MEDS: Atorvastatin Calcium 80 MG Tablet PO (21:18)
[2019-04-26 21:33] LABS: M R Staph aureus DNA By PCR Negative (Negative); Probe Check PASS; Specimen Processing Control PASS
[2019-04-27] VITALS (28 sets, daily range): BP systolic 92–143; BP diastolic 51–95; PULSE 100–125; RESP 18–33; TEMP 36.4–36.7; O2SAT 86–95
[2019-04-27 04:43] LABS: Absolute Lymphocyte Count 0.79 X10^3/uL (0.83-4.51); Absolute Neutrophil Count 10.3 X10^3/uL (2.0-7.7); Basophil# 0.01 X10^3/uL; Basophil% 0.1 % (0-1); Hematocrit 29.3 % (37-47); Hemoglobin 8.9 g/dL (12.0-15.0); Lymphocyte # 0.79 X10^3/ul (4.0); Lymphocyte % 6.9 % (19-41); Mean Corp Hgb Conc 30.4 g/dL (32-36); Mean Corpuscular Hgb 25.9 pg (27.0-32.0); Mean Corpuscular Volume 85.2 fL (81-99); Mean Platelet Vol. 10.2 fl (6.2-12.0); Monocyte# 0.28 X10^3/uL; Monocyte% 2.4 % (0-10); NRBC Flagged by Analyzer 0 % (0-5); Neutrophil # 10.27 X10^3/uL (2.7-7.7); Neutrophil % 89.9 % (47-70); Platelet Count 316 K/mm3 (150-450); RBC Distribution Width CV 15.9 % (11.6-14.6); RBC Distribution Width SD 49.4 fl (35.1-43.9); Red Blood Count 3.44 M/mm3 (4.2-5.4); White Blood Count 11.4 K/mm3 (4.4-11.0)
[2019-04-27 05:14] LABS: Anion Gap 7 (5-15); BUN 25 mg/dL (7-18); BUN/Creat Ratio 25.2 RATIO (10-20); Chloride 116 mmol/L (98-107); Creatinine, Serum 0.99 mg/dL (0.55-1.02); EST Glomerular Filtration Rate 58 mL/min (>60); Est Glom Filt Rate - Afr Amer 70 mL/min (>60); Estimated Creatinine Clearance 39.43 ml/min; Glucose 143 mg/dL (74-106); Phosphorus 2.2 mg/dL (2.5-4.9); Potassium 3.9 mmol/L (3.5-5.1); Sodium Level 144 mmol/L (136-145)
[2019-04-27] MEDS: 0.9% Normal Saline 1,000 ML 75 ML IV ×2 (05:33→13:51)
[2019-04-27] MEDS: 0.9% Saline Lock 10 ML Syringe IV ×3 (05:34→22:59)
--- NOTE | 2019-04-27 06:39 | PN_ITS ---
Subjective: The patient was seen and examined at the bedside this morning. Events from the last 24 hours have been reviewed. The patient is currently afebrile, hemodynamically stable and maintaining appropriate oxygen saturations on 4 L/min via nasal cannula. The patient does report subjective improvement in her breathing quality. She does report the presence of a cough. Objective: The patient's most recent lab work, culture data and imaging studies have all been personally reviewed. Urine culture was positive for presumptive E. coli. Respiratory viral panel was positive for rhinovirus. General: Alert, Cooperative, No apparent distress HEENT: Atraumatic, PERRLA, Normocephalic Oral: No Gingival or Mucosal Lesions/ Ulcerations Neck: Supple, No Nodes, Trachea Midline Lungs: No rhonchi, No wheeze, No rales, Diminished Cardiovascular: Regular rate, Regular Rhythm, Normal S1, Normal S2 Abdomen: Bowel Sounds Present, Soft, Non Tender Extremities: No cyanosis, No edema, Clubbing Skin: No breakdown Musculoskeletal: No Tenderness to Palpation of Joints or Extremities Lymphatic: No Cervical, Supraclavicular, or Inguinal Adenopathy Neurological: Neuro grossly intact Psych/Mental Status: Normal Affect, Appropriate Vital Signs Temp Pulse Resp BP Pulse Ox 97.9 F 103 H 24 H 116/61 91 04/27/19 06:00 04/27/19 06:00 04/27/19 06:00 04/27/19 06:00 04/27/19 06:00 Oxygen Flow Rate (L/min) 3 Oxygen Delivery Method CPAP Weight: 145 lb 4.554 oz Body Mass Index (BMI) 26.2 Intake and Output for Last 24 Hours 04/25/19 04/26/19 04/27/19 23:59 23:59 23:59 Intake Total 1185 / 1185 2796.25 / 2796.25 657.5 / 657.5 Output Total 200 / 200 2100 / 2100 300 / 300 Balance 985 / 985 696.25 / 696.25 357.5 / 357.5 Labs (Last 48 Hours) 04/25/19 04/25/19 04/25/19 18:14 18:14 18:14 WBC 23.7 H RBC 4.21 Hgb 11.2 L Hct 38.0 MCV 90.3 MCH 26.6 L MCHC 29.5 L RDW Std Deviation 51.6 H RDW Coeff of Abhinav 15.7 H Plt Count 534 H MPV 10.6 Immature Gran % (Auto) 1.400 H Neut % (Auto) 73.4 H Lymph % (Auto) 12.4 L [place] % (Auto) 7.3 Eos % (Auto) 4.9 Baso % (Auto) 0.6 Absolute Neuts (auto) 17.4 H Absolute Lymphs (auto) 2.95 Nucleated RBC % 0.1 Differential Comment SCANNED Diff Path Review May foll Platelet Estimate MOD INC RBC Morphology NORM C+C PT 15.3 H INR 1.2 APTT 32.3 Specimen Type Sample Site pH Bicarbonate Actual POC Total CO2 Base Excess O2 Saturation O2 % ABG pCO2 ABG pO2 Angelo Test Respiration Rate O2 Delivery Device EPAP IPAP Blood Gas Notified Whom Blood Gas Notified Time Sodium 138 Potassium 3.7 Chloride 110 H Carbon Dioxide 18.0 L Anion Gap 10 BUN 19 H Creatinine 1.12 H Estim Creat Clear Calc 36.45 Est GFR (MDRD) Af Amer 61 Est GFR (MDRD) Non-Af 51 L BUN/Creatinine Ratio 17.0 Glucose 189 H Lactic Acid Calcium 8.4 L Phosphorus Magnesium Total Bilirubin 0.30 AST 28 ALT 23 Alkaline Phosphatase 145 H Total Protein 7.4 Albumin 2.6 L Globulin 4.8 H Albumin/Globulin Ratio 0.5 L Urine Color Urine Clarity Urine pH Ur Specific [place] Urine Protein Urine Glucose (UA) Urine Ketones Urine Occult Blood Urine Nitrite Urine Bilirubin Urine Urobilinogen Ur Leukocyte Esterase Urine RBC Urine WBC Ur Squamous Epith Cells Urine Bacteria Urine Mucus MRSA (PCR) 04/25/19 04/25/19 04/25/19 18:14 18:29 18:55 WBC RBC Hgb Hct MCV MCH MCHC RDW Std Deviation RDW Coeff of Abhinav Plt Count MPV Immature Gran % (Auto) Neut % (Auto) Lymph % (Auto) [place] % (Auto) Eos % (Auto) Baso % (Auto) Absolute Neuts (auto) Absolute Lymphs (auto) Nucleated RBC % Differential Comment Diff Path Review Platelet Estimate RBC Morphology PT INR APTT Specimen Type ART Sample Site R Brachial pH 7.17 L* Bicarbonate Actual 18.2 L POC Total CO2 20 Base Excess -10 L O2 Saturation 98 O2 % 100 ABG pCO2 50.2 H ABG pO2 128 H Angelo Test POS Respiration Rate 12 O2 Delivery Device Bi / C PAP EPAP 8 IPAP 16 Blood Gas Notified Whom ED Blood Gas Notified Time 1825 Sodium Potassium Chloride Carbon Dioxide Anion Gap BUN Creatinine Estim Creat Clear Calc Est GFR (MDRD) Af Amer Est GFR (MDRD) Non-Af BUN/Creatinine Ratio Glucose Lactic Acid 6.0 H* Calcium Phosphorus Magnesium Total Bilirubin AST ALT Alkaline Phosphatase Total Protein Albumin Globulin Albumin/Globulin Ratio Urine Color Yellow Urine Clarity Clear Urine pH 6.0 Ur Specific [place] 1.020 Urine Protein 100 H Urine Glucose (UA) Normal Urine Ketones Negative Urine Occult Blood 25 H Urine Nitrite Positive H Urine Bilirubin Negative Urine Urobilinogen Normal Ur Leukocyte Esterase 25 H Urine RBC 0 SEEN Urine WBC 0-5 SEEN Ur Squamous Epith Cells 0-5 SEEN Urine Bacteria 1+ Urine Mucus 0 SEEN MRSA (PCR) 04/25/19 04/26/19 04/26/19 22:45 01:20 04:25 WBC 19.1 H RBC 4.56 Hgb 11.9 L Hct 40.2 MCV 88.2 MCH 26.1 L MCHC 29.6 L RDW Std Deviation 51.5 H RDW Coeff of Abhinav 15.9 H Plt Count 387 MPV 10.7 Immature Gran % (Auto) 0.600 Neut % (Auto) 88.6 H Lymph % (Auto) 7.6 L [place] % (Auto) 2.8 Eos % (Auto) 0.1 Baso % (Auto) 0.3 Absolute Neuts (auto) 16.9 H Absolute Lymphs (auto) 1.46 Nucleated RBC % 0 Differential Comment Diff Path Review Platelet Estimate RBC Morphology PT INR APTT Specimen Type Sample Site pH Bicarbonate Actual POC Total CO2 Base Excess O2 Saturation O2 % ABG pCO2 ABG pO2 Angelo Test Respiration Rate O2 Delivery Device EPAP IPAP Blood Gas Notified Whom Blood Gas Notified Time Sodium Potassium Chloride Carbon Dioxide Anion Gap BUN Creatinine Estim Creat Clear Calc Est GFR (MDRD) Af Amer Est GFR (MDRD) Non-Af BUN/Creatinine Ratio Glucose Lactic Acid 2.2 H* 1.2 Calcium Phosphorus Magnesium Total Bilirubin AST ALT Alkaline Phosphatase Total Protein Albumin Globulin Albumin/Globulin Ratio Urine Color Urine Clarity Urine pH Ur Specific [place] Urine Protein Urine Glucose (UA) Urine Ketones Urine Occult Blood Urine Nitrite Urine Bilirubin Urine Urobilinogen Ur Leukocyte Esterase Urine RBC Urine WBC Ur Squamous Epith Cells Urine Bacteria Urine Mucus MRSA (PCR) 02/04/26/19 04/26/19 04:25 04:55 20:05 WBC RBC Hgb Hct MCV MCH MCHC RDW Std Deviation RDW Coeff of Abhinav Plt Count MPV Immature Gran % (Auto) Neut % (Auto) Lymph % (Auto) [place] % (Auto) Eos % (Auto) Baso % (Auto) Absolute Neuts (auto) Absolute Lymphs (auto) Nucleated RBC % Differential Comment Diff Path Review Platelet Estimate RBC Morphology PT INR APTT Specimen Type ART Sample Site R Brachial pH 7.26 L Bicarbonate Actual 14.9 L POC Total CO2 16 Base Excess -12 L O2 Saturation 94 L O2 % 45 ABG pCO2 33.6 L ABG pO2 82 Angelo Test NA Respiration Rate 12 O2 Delivery Device Bi / C PAP EPAP 8 IPAP 18 Blood Gas Notified Whom ICU Blood Gas Notified Time 450 Sodium 140 Potassium 4.1 Chloride 111 H Carbon Dioxide 15.0 L Anion Gap 14 BUN 26 H Creatinine 1.40 H Estim Creat Clear Calc 27.88 Est GFR (MDRD) Af Amer 47 L Est GFR (MDRD) Non-Af 39 L BUN/Creatinine Ratio 18.6 Glucose 175 H Lactic Acid Calcium 8.1 L Phosphorus Magnesium Total Bilirubin AST ALT Alkaline Phosphatase Total Protein Albumin Globulin Albumin/Globulin Ratio Urine Color Urine Clarity Urine pH Ur Specific [place] Urine Protein Urine Glucose (UA) Urine Ketones Urine Occult Blood Urine Nitrite Urine Bilirubin Urine Urobilinogen Ur Leukocyte Esterase Urine RBC Urine WBC Ur Squamous Epith Cells Urine Bacteria Urine Mucus MRSA (PCR) Negative 04/27/19 04/27/19 04:25 04:25 WBC 11.4 H RBC 3.44 L Hgb 8.9 L Hct 29.3 L MCV 85.2 MCH 25.9 L MCHC 30.4 L RDW Std Deviation 49.4 H RDW Coeff of Abhinav 15.9 H Plt Count 316 MPV 10.2 Immature Gran % (Auto) 0.700 Neut % (Auto) 89.9 H Lymph % (Auto) 6.9 L [place] % (Auto) 2.4 Eos % (Auto) 0.0 Baso % (Auto) 0.1 Absolute Neuts (auto) 10.3 H Absolute Lymphs (auto) 0.79 L Nucleated RBC % 0 Differential Comment Diff Path Review Platelet Estimate RBC Morphology PT INR APTT Specimen Type Sample Site pH Bicarbonate Actual POC Total CO2 Base Excess O2 Saturation O2 % ABG pCO2 ABG pO2 Angelo Test Respiration Rate O2 Delivery Device EPAP IPAP Blood Gas Notified Whom Blood Gas Notified Time Sodium 144 Potassium 3.9 Chloride 116 H Carbon Dioxide 21.0 Anion Gap 7 BUN 25 H Creatinine 0.99 Estim Creat Clear Calc 39.43 Est GFR (MDRD) Af Amer 70 Est GFR (MDRD) Non-Af 58 L BUN/Creatinine Ratio 25.2 H Glucose 143 H Lactic Acid Calcium 8.0 L Phosphorus 2.2 L Magnesium 2.0 Total Bilirubin AST ALT Alkaline Phosphatase Total Protein Albumin Globulin Albumin/Globulin Ratio Urine Color Urine Clarity Urine pH Ur Specific [place] Urine Protein Urine Glucose (UA) Urine Ketones Urine Occult Blood Urine Nitrite Urine Bilirubin Urine Urobilinogen Ur Leukocyte Esterase Urine RBC Urine WBC Ur Squamous Epith Cells Urine Bacteria Urine Mucus MRSA (PCR) Microbiology 04/25/19 18:55 Urine Catheter - Catheter Urine Culture - Preliminary Presumptive E. coli 04/26/19 07:20 Mucosa - Nasopharyngeal Respiratory Panel (PCR) - Final Rhinovirus Clinical Impression(s) from Imaging Studies Chest X-Ray 04/25/19 18:35 IMPRESSION: 1. No airspace consolidation or pleural effusion. 2. Basilar dominant parenchymal fibrosis. Electronically Signed: Aidan Kulkarni MD ([place]) at 18:53 EST , Service support , Medical Necessity - Tobacco Use Smoking Status: Former smoker Assessment/Plan All Active Problems (Last Reviewed 03/20/19 @ 09:59 by Melanie Domingo NP-C) Severe sepsis (Acute) Respiratory failure (Acute) Lower respiratory infection (Acute) Acute respiratory failure with hypoxia and hypercapnia (Acute) Pneumonia (Acute) Sepsis (Acute) Pulmonary embolism (Acute) Cholelithiasis NOS (Acute) Acute respiratory failure with hypoxia and hypercapnia (Acute) COPD with acute exacerbation (Acute) Gram-negative pneumonia (Acute) Acute hypercapnic respiratory failure (Acute) NSTEMI (non-ST elevated myocardial infarction) (Acute) COPD exacerbation (Acute) RECOMMENDATIONS: 1. Continue antibiotics and de-escalate based upon urine culture sensitivities. 2. Continue to wean supplemental oxygen as tolerated. 3. Continue scheduled bronchodilators and IV steroids. 4. Continue Eliquis 5. Continue appropriate ICU prophylaxis. 6. The patient is medically stable for transfer out of the intensive care unit. IMPRESSIONS: 1. Acute on chronic combined respiratory failure likely secondary to COPD with exacerbation Appears to be secondary to rhinovirus upper respiratory infection. We will plan to continue current supportive measures with scheduled bronchodilators and IV steroids. Continue to wean supplemental oxygen as tolerated. Encourage incentive spirometer use and mobilize patient as tolerated. 2. Severe sepsis secondary to combined E. coli cystitis and rhinovirus upper respiratory infection Continue antimicrobial therapy with plans to de-escalate based upon urine culture sensitivities. The patient remains hemodynamically stable. 3. Acute kidney injury Improved. Potentially related to normal saline utilized for volume resuscitation. Continue to monitor urine output. Avoid nephrotoxic medications. 4. History of venous thromboembolic disease The patient does have a history of pulmonary emboli, for which she will be continued on Eliquis per outpatient regimen. 5. History of unspecified seizure disorder Continue Keppra per outpatient regimen. 6. Tobacco dependency, currently in remission/hypertension/hyperlipidemia/peripheral vascular disease Complicates care, management, recovery and prognosis. Okay to continue home medications as indicated. Physical therapy to work with the patient. This note was generated with JMEA dictation software. It may contain incorrect words, spelling, and punctuation that were not noted in checking the note before signing. Code Visit Inpatient E&M: 66592 Subs Hosp L3
[2019-04-27] MEDS: LEVALBUTEROL HCL 0.63 MG/3 ML VIAL.NEB IH ×2 (07:19→23:41)
[2019-04-27] MEDS: Fenofibrate 145 MG Tablet PO (08:31)
[2019-04-27] MEDS: Aspirin 81 MG TAB.CHEW PO (08:31)
[2019-04-27] MEDS: Pantoprazole Sodium 40 MG Tablet PO (08:32)
[2019-04-27] MEDS: cycloBENZAPRine HCl 10 MG Tablet PO (08:32)
[2019-04-27] MEDS: levETIRAcetam 500 MG Tablet PO ×2 (08:32→22:44)
[2019-04-27] MEDS: Ranolazine 500 MG Tablet PO ×2 (08:32→22:44)
[2019-04-27] MEDS: buPROPion (SR) 150 MG Tablet.SA PO (08:33)
[2019-04-27] MEDS: Gabapentin 600 MG Tablet PO ×2 (08:33→22:44)
--- NOTE | 2019-04-27 08:36 | PCM.PN.HOSP ---
Patient Problems: Active and Suspected Problems (Last Reviewed 03/20/19 @ 09:59 by JOANN Swenson) Severe sepsis (Acute) Respiratory failure (Acute) Reason for Visit: Acute on chronic respiratory failure, fever about 2 days ago. Currently afebrile Objective: Patient is mild short of breath. Agrees for palliative care. Low-grade temperature 99 last 24 hours. Vitals/I&O's: Vital Signs Temp Pulse Resp BP Pulse Ox 97.9 F 103 H 20 H 117/69 91 04/27/19 06:00 04/27/19 07:19 04/27/19 07:19 04/27/19 07:00 04/27/19 07:17 Oxygen Flow Rate (L/min) 3 Oxygen Delivery Method CPAP Weight: 145 lb 4.554 oz Body Mass Index (BMI) 26.2 Intake and Output for Last 24 Hours 04/25/19 04/26/19 04/27/19 23:59 23:59 23:59 Intake Total 1185 / 1185 2796.25 / 2796.25 657.5 / 657.5 Output Total 200 / 200 2100 / 2100 300 / 300 Balance 985 / 985 696.25 / 696.25 357.5 / 357.5 General: Alert, Oriented x3, Cooperative HEENT: Atraumatic, PERRLA, EOMI, Normocephalic Oral: No Gingival or Mucosal Lesions/ Ulcerations, - - Hard of hearing Neck: Supple, No JVD, Negative Carotid Bruits Lungs: Clear to auscultation, No rhonchi, No wheeze, No rales, Diminished Cardiovascular: Regular rate, Regular Rhythm, Normal S1, Normal S2, No murmurs Abdomen: Bowel Sounds Present, Soft, Non Tender, Non-Distended Extremities: No edema, Capillary Refill Less than 3 Seconds Skin: No rashes, No breakdown Musculoskeletal: No Tenderness to Palpation of Joints or Extremities, Arthritic Changes, Muscle Wasting Neurological: Cranial nerves II-XII grossly intact, Neuro grossly intact Psych/Mental Status: Normal Affect, Appropriate Microbiology Past 72 Hours 04/25/19 18:55 Urine Catheter - Catheter Urine Culture - Final Presumptive E. coli 04/26/19 07:20 Mucosa - Nasopharyngeal Respiratory Panel (PCR) - Final Rhinovirus Laboratory Results 04/26/19 20:05: MRSA (PCR) Negative 04/27/19 04:25: Sodium 144, Potassium 3.9, Chloride 116 H, Carbon Dioxide 21.0, Anion Gap 7, BUN 25 H, Creatinine 0.99, Estim Creat Clear Calc 39.43, Est GFR (MDRD) Af Amer 70, Est GFR (MDRD) Non-Af 58 L, BUN/Creatinine Ratio 25.2 H, Glucose 143 H, Calcium 8.0 L, Phosphorus 2.2 L, Magnesium 2.0 04/27/19 04:25: WBC 11.4 H, RBC 3.44 L, Hgb 8.9 L, Hct 29.3 L, MCV 85.2, MCH 25.9 L, MCHC 30.4 L, RDW Std Deviation 49.4 H, RDW Coeff of Abhinav 15.9 H, Plt Count 316, MPV 10.2, Immature Gran % (Auto) 0.700, Neut % (Auto) 89.9 H, Lymph % (Auto) 6.9 L, [place] % (Auto) 2.4, Eos % (Auto) 0.0, Baso % (Auto) 0.1, Absolute Neuts (auto) 10.3 H, Absolute Lymphs (auto) 0.79 L, Nucleated RBC % 0 Current Medications Acetaminophen (Tylenol) 650 mg PO Q6H PRN PRN PRN Reason: Pain Score 1-10/Temp > 100.7 F Apixaban (Eliquis) 5 mg PO BID [facility] Last Admin: 04/26/19 21:18 Dose: 5 mg Documented by: Aspirin (Aspirin, Baby) 81 mg PO DAILY@0800 [facility] Last Admin: 04/26/19 10:15 Dose: 81 mg Documented by: Atorvastatin Calcium (Lipitor) 80 mg PO DAILY@2200 [facility] Last Admin: 04/26/19 21:18 Dose: 80 mg Documented by: Bupropion HCl (Wellbutrin Sr (150mg Tablets)) 150 mg PO DAILY [facility] Last Admin: 04/26/19 10:15 Dose: 150 mg Documented by: Chlorhexidine Gluconate () 1 each TOPICAL DAILY [facility] Last Admin: 04/26/19 10:33 Dose: Not Given Documented by: Cyclobenzaprine HCl (Flexeril) 10 mg PO DAILY [facility] Last Admin: 04/26/19 10:15 Dose: 10 mg Documented by: Fenofibrate (Tricor) 145 mg PO DAILYCM [facility] Last Admin: 04/26/19 10:15 Dose: 145 mg Documented by: Gabapentin (Neurontin) 600 mg PO BID [facility] Last Admin: 04/26/19 21:18 Dose: 600 mg Documented by: Cefepime HCl 2 gm/ Sodium (Chloride) 100 mls @ 200 mls/hr IV Q24@2200 [facility] Last Infusion: 04/26/19 21:48 Dose: Infused Documented by: Sodium Chloride () 250 mls @ 15 mls/hr IV .[id number] PRN PRN Reason: Saline Flush Sodium Chloride () 250 mls @ 15 mls/hr IV .[id number] PRN PRN Reason: Additional IVPB Infusion Sodium Chloride () 1,000 mls @ 75 mls/hr IV .[id number] [facility] Last Admin: 04/27/19 05:33 Dose: 75 mls/hr Documented by: Levalbuterol HCl (Xopenex) 0.63 mg IH Q4HWA.RT [facility] Last Admin: 04/27/19 07:19 Dose: 0.63 mg Documented by: Levetiracetam (Keppra Tablet) 500 mg PO BID [facility] Last Admin: 04/26/19 21:18 Dose: 500 mg Documented by: Melatonin (Melatonin) 3 mg PO QHS PRN PRN PRN Reason: INSOMNIA Methylprednisolone (Solu-Medrol) 40 mg IV Q8 [facility] Last Admin: 04/27/19 05:33 Dose: 40 mg Documented by: Ondansetron HCl (Zofran) 4 mg IV Q8H PRN PRN PRN Reason: NAUSEA/VOMITING Pantoprazole Sodium (Protonix) 40 mg PO DAILY [facility] Last Admin: 04/26/19 10:15 Dose: 40 mg Documented by: Quetiapine Fumarate (Seroquel) 100 mg PO QHS [facility] Last Admin: 04/26/19 21:18 Dose: 100 mg Documented by: Ranolazine (Ranexa) 500 mg PO BID [facility] Last Admin: 04/26/19 21:18 Dose: 500 mg Documented by: Sodium Chloride () 10 - 40 ml IV UD PRN PRN Reason: SALINE FLUSH Last Admin: 04/27/19 05:34 Dose: 10 ml Documented by: STROKE Vital Signs/Narrative: Vital Signs Temp Pulse Resp BP Pulse Ox 04/27/19 07:19 103 H 20 H 04/27/19 07:17 102 H 22 H 91 04/27/19 07:00 100 22 H 117/69 92 04/27/19 06:00 97.9 F 103 H 24 H 116/61 91 04/27/19 05:00 104 H 27 H 99/58 L 92 Medical Necessity - Tobacco Use Smoking Status: Former smoker Assessment/Plan All Active Problems (Last Reviewed 03/20/19 @ 09:59 by Melanie Domingo, CHANI-C) Severe sepsis (Acute) Respiratory failure (Acute) Lower respiratory infection (Acute) Acute respiratory failure with hypoxia and hypercapnia (Acute) Pneumonia (Acute) Sepsis (Acute) Pulmonary embolism (Acute) Cholelithiasis NOS (Acute) Acute respiratory failure with hypoxia and hypercapnia (Acute) COPD with acute exacerbation (Acute) Gram-negative pneumonia (Acute) Acute hypercapnic respiratory failure (Acute) NSTEMI (non-ST elevated myocardial infarction) (Acute) COPD exacerbation (Acute) the patient is a 74-year-old female with history of recurrent admission, last one admitted in March status post intubation for total of 12 days came to ER with shortness of breath and cough for 4 days. Patient is DNR CC arrest. On BiPAP rescue therapy. 1. Acute severe sepsis with acute on chronic hypoxic / hypercapnic resp failure with rhinovirus URI, E. coli cystitis and COPD exacerbation -continue oxygen. Discussed with the patient and she agrees with palliative care. Respiratory panel positive for rhinovirus. Urine culture shows presumptive E. coli, more than 100,000 colonies, pansensitive. On IV cefepime, narrowed down to on IV ceftriaxone. On IV Solu-Medrol. Continue DuoNeb nebulizer, albuterol neb as needed, Incentive spirometry, chest physiotherapy Solu-Medrol change to prednisone from tomorrow a.m. Patient is mild tachycardic. 2. CAD - prior stents. aspirin/statin/ranolazine, imdur currently held. 3. Oropharyngeal dysphagia -speech and swallow evaluation. Modified barium study was done in February 2019 reported as delayed pharyngeal swallow onset with silent aspiration. Patient was recommended pur?ed texture diet with nectar thickened liquid. 4. Hx anxiety/depression - wellbutrin, seroquel, melatonin 5. Hx seizure disorder - keppra 6. Hx PE - eliquis 7. Tobacco abuse - states she has quit this time. 8. HTN - stable 9. HLD - tricor, statin 10. GERD - on ppi 11. MARISABEL - no bipap at home. she does not like the mask. Patient seen by editor in chief newspaper. Palliative care 12. Fibromyalgia - neurontin, flexeril 13. CKDIII - stable. trend. DVT ppx: eliquis Patient is transferred out of ICU. Total time of the visit including total time spent in counseling or coordination of care, (more than 50% of the total time, spent in obtaining medical information from nurses and other ancillary care providers), discussion with editor in chief newspaper, review of labs and imaging is 35 minutes Code Visit Inpatient E&M: 66234 Subs Hosp L3
[2019-04-27] MEDS: APIXABAN 5 MG TABLET PO ×2 (08:38→22:44)
[2019-04-27] MEDS: Ipratropium 0.5 MG/2.5 ML SOLUTION INHALATION ×2 (10:50→19:42)
--- NOTE | 2019-04-27 11:24 | CASEMGMT ---
.RN CM Assessment Note Presentation: Severe Sepsis, pneumonia Intro role of CM and purpose of RN CM assessment to patient in room. Pt is awake, alert and able to participate in assessment.. Demographics, PCP and Pharmacy verified. Pt states she lives with her daughter. Is generally independent with own care and family is available to assist if needed. Previous Admission: 02/19/19 to 03/06/2019- pt was on ventilator from 02/20/19 to 03/01/19. Family had met re: decisions moving forward re: comfort care. Pt recovered and was discharged to [facility]. Pt returned home with [facility]. LEIGH MEJIAS called to [place]. Pt was dc'd from PT, but nursing home is still current. They request H/P now (faxed) and DC Instructions, summary on discharge. PCP: Dr. Craig Specialists: Dr. Golden, pulmonology. Preferred Pharmacy: [facility] Insurance: Care source. Call to RANDELL Akers listed previously @ . Message left requesting call back to discuss dc needs and any current services. Prescription Benefit: yes LNOK: Daughter Lynn Tolentino Living Arrangements: Lives with daughter in one story home with 1 step into home. Pt states she is independent in ADL, assists with cooking. Family available to assist with any care needs. LEIGH MEJIAS called to daughter Lynn who verified [facility] and states she and her sister plan to look into more salvage determiner care for pt in near future if her care needs increase. Daughter could not go into further detail as she was at work, but plans to come to hospital later in afternoon. Transportation: Family drives DME: walker, cane, wheelchair, shower chair, nebulizer OXYGEN: 3-4L NC continuous. [facility]. Concentrator, portability (dghtr can bring tank on day of dc) [facility]: [facility] current SN PH: [phone] FX: [phone] SNF: [facility] in March; Patient DC goals: Home with family DC PLAN: Anticipate Home on dc with resumption of HHS. PT/OT evals pending. LEIGH MEJIAS let pt and her daughter Lynn know if dc concerns or needs arise, cm can be contacted and will be addressed. [place] BACHN RN ACM
[2019-04-27] MEDS: Paroxetine 20 MG Tablet 40 MG PO (13:03)
[2019-04-27 14:01] LABS: Pathologist Review Reviewed
--- NOTE | 2019-04-27 15:53 | CASEMGMT ---
Referral was faxed for Palliative Care. SW called Palliative with referral. Patient and family were asking about someone coming from Hospice at 3p. SW called Palliative and they have not called family yet. SW spoke with patient and family and they left work early to be here as someone told them Hospice would be here at 3p to talk with them. SW explained that Palliative will call them to arrange a time to meet, but they told SW they have not called anyone yet. Brenda GARZON INTAKE MAN
--- NOTE | 2019-04-27 16:09 | CASEMGMT ---
SW received call from [place] from Palliative Care and they are meeting with patient and family tomorrow at 430. Brenda GARZON MSW
[2019-04-27] MEDS: Ceftriaxone 1 GM/50 ML BAG IV (22:36)
[2019-04-27] MEDS: Atorvastatin Calcium 80 MG Tablet PO (22:44)
[2019-04-27] MEDS: QUEtiapine 100 MG Tablet PO (22:44)
[2019-04-28] VITALS (18 sets, daily range): BP systolic 95–153; BP diastolic 50–98; PULSE 79–138; RESP 16–28; TEMP 36.2–36.6; O2SAT 90–98
[2019-04-28] MEDS: 0.9% Normal Saline 1,000 ML 75 ML IV ×2 (06:37→20:46)
[2019-04-28] MEDS: Ipratropium 0.5 MG/2.5 ML SOLUTION INHALATION ×2 (07:07→22:00)
[2019-04-28] MEDS: LEVALBUTEROL HCL 0.63 MG/3 ML VIAL.NEB IH ×3 (07:08→15:24)
[2019-04-28 08:14] LABS: Absolute Neutrophil Count 9.9 X10^3/uL (2.0-7.7); Basophil# 0.02 X10^3/uL; Basophil% 0.2 % (0-1); Hematocrit 30.8 % (37-47); Hemoglobin 9.2 g/dL (12.0-15.0); Lymphocyte % 14.3 % (19-41); Mean Corp Hgb Conc 29.9 g/dL (32-36); Mean Corpuscular Hgb 26.1 pg (27.0-32.0); Mean Corpuscular Volume 87.3 fL (81-99); Mean Platelet Vol. 10.2 fl (6.2-12.0); Monocyte# 0.64 X10^3/uL; Monocyte% 5.1 % (0-10); NRBC Flagged by Analyzer 0.2 % (0-5); Neutrophil # 9.88 X10^3/uL (2.7-7.7); Neutrophil % 78.6 % (47-70); Platelet Count 355 K/mm3 (150-450); RBC Distribution Width CV 15.8 % (11.6-14.6); RBC Distribution Width SD 50.7 fl (35.1-43.9); Red Blood Count 3.53 M/mm3 (4.2-5.4); White Blood Count 12.6 K/mm3 (4.4-11.0)
[2019-04-28 08:35] LABS: Anion Gap 5 (5-15); BUN 30 mg/dL (7-18); BUN/Creat Ratio 25.9 RATIO (10-20); Calcium,Total 8.3 mg/dL (8.5-10.1); Chloride 116 mmol/L (98-107); Creatinine, Serum 1.16 mg/dL (0.55-1.02); EST Glomerular Filtration Rate 49 mL/min (>60); Est Glom Filt Rate - Afr Amer 59 mL/min (>60); Estimated Creatinine Clearance 33.65 ml/min; Glucose 101 mg/dL (74-106); Potassium 3.8 mmol/L (3.5-5.1); Sodium Level 144 mmol/L (136-145)
[2019-04-28] MEDS: Paroxetine 20 MG Tablet 40 MG PO (09:36)
[2019-04-28] MEDS: Fenofibrate 145 MG Tablet PO (09:36)
[2019-04-28] MEDS: Acetaminophen 325 MG Tablet 650 MG PO (09:36)
[2019-04-28] MEDS: Aspirin 81 MG TAB.CHEW PO (09:36)
[2019-04-28] MEDS: buPROPion (SR) 150 MG Tablet.SA PO (09:37)
[2019-04-28] MEDS: cycloBENZAPRine HCl 10 MG Tablet PO (09:37)
[2019-04-28] MEDS: Gabapentin 600 MG Tablet PO ×2 (09:37→22:54)
[2019-04-28] MEDS: Ranolazine 500 MG Tablet PO ×2 (09:37→22:55)
[2019-04-28] MEDS: APIXABAN 5 MG TABLET PO ×2 (09:37→22:54)
[2019-04-28] MEDS: predniSONE 20 MG Tablet 40 MG PO (09:37)
[2019-04-28] MEDS: Pantoprazole Sodium 40 MG Tablet PO (09:37)
[2019-04-28] MEDS: levETIRAcetam 500 MG Tablet PO ×2 (09:37→22:55)
--- NOTE | 2019-04-28 11:09 | PCM.PN.HOSP ---
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 No fever. Heart rate, in 100s. Blood pressure is controlled. Patient gets is short of breath even on going to bathroom, on conversation and getting up from the bed. On physical exam General: Alert, Oriented x3, Cooperative HEENT: Atraumatic, PERRLA, EOMI, Normocephalic Oral: No Gingival or Mucosal Lesions/ Ulcerations, Hard of hearing Neck: Supple, No JVD, Negative Carotid Bruits Lungs: air entry severely diminished in all lung field. Bilateral expiratory rhonchi. Dyspnea on exertion Cardiovascular: Regular rate, Regular Rhythm, Normal S1, Normal S2, No murmurs Abdomen: Bowel Sounds Present, Soft, Non Tender, Non-Distended Extremities: No edema, Capillary Refill Less than 3 Seconds Skin: No rashes, No breakdown Musculoskeletal: No Tenderness to Palpation of Joints or Extremities, Arthritic Changes, Muscle Wasting Neurological: Cranial nerves II-XII grossly intact, Neuro grossly intact Psych/Mental Status: Normal Affect, Appropriate Vitals/I&O's: Vital Signs Temp Pulse Resp BP Pulse Ox 97.4 F L 109 H 24 H 115/50 L 91 04/28/19 10:59 04/28/19 11:01 04/28/19 11:01 04/28/19 10:59 04/28/19 11:01 Oxygen Flow Rate (L/min) 6 Oxygen Delivery Method Nasal Cannula Weight: 143 lb 15.39 oz Body Mass Index (BMI) 26.2 Intake and Output for Last 24 Hours 04/26/19 04/27/19 04/28/19 23:59 23:59 23:59 Intake Total 2796.25 / 2796.25 1550.0 / 1550.0 1050 / 1050 Output Total 2100 / 2100 350 / 350 Balance 696.25 / 696.25 1200.0 / 1200.0 1050 / 1050 Microbiology Past 72 Hours 04/25/19 18:13 Blood Culture (Wb) - Right Foot Blood Culture - Preliminary No growth in 48 hours. 04/25/19 18:13 Blood Culture (Wb) - Left Forearm Blood Culture - Preliminary No growth in 48 hours. 04/25/19 18:55 Urine Catheter - Catheter Urine Culture - Final Presumptive E. coli 04/26/19 07:20 Mucosa - Nasopharyngeal Respiratory Panel (PCR) - Final Rhinovirus Laboratory Results 04/25/19 18:14: Diff Path Review Reviewed 04/28/19 07:45: WBC 12.6 H, RBC 3.53 L, Hgb 9.2 L, Hct 30.8 L, MCV 87.3, MCH 26.1 L, MCHC 29.9 L, RDW Std Deviation 50.7 H, RDW Coeff of Abhinav 15.8 H, Plt Count 355, MPV 10.2, Immature Gran % (Auto) 1.800 H, Neut % (Auto) 78.6 H, Lymph % (Auto) 14.3 L, [place] % (Auto) 5.1, Eos % (Auto) 0.0, Baso % (Auto) 0.2, Absolute Neuts (auto) 9.9 H, Absolute Lymphs (auto) 1.80, Nucleated RBC % 0.2 04/28/19 07:45: Sodium 144, Potassium 3.8, Chloride 116 H, Carbon Dioxide 23.0, Anion Gap 5, BUN 30 H, Creatinine 1.16 H, Estim Creat Clear Calc 33.65, Est GFR (MDRD) Af Amer 59 L, Est GFR (MDRD) Non-Af 49 L, BUN/Creatinine Ratio 25.9 H, Glucose 101, Calcium 8.3 L Current Medications Acetaminophen (Tylenol) 650 mg PO Q6H PRN PRN PRN Reason: Pain Score 1-10/Temp > 100.7 F Last Admin: 04/28/19 09:36 Dose: 650 mg Documented by: Apixaban (Eliquis) 5 mg PO BID [facility], [facility] Last Admin: 04/28/19 09:37 Dose: 5 mg Documented by: Aspirin (Aspirin, Baby) 81 mg PO DAILY@0800 [facility] Last Admin: 04/28/19 09:36 Dose: 81 mg Documented by: Atorvastatin Calcium (Lipitor) 80 mg PO DAILY@2200 [facility] Last Admin: 04/27/19 22:44 Dose: 80 mg Documented by: Bupropion HCl (Wellbutrin Sr (150mg Tablets)) 150 mg PO DAILY [facility] Last Admin: 04/28/19 09:37 Dose: 150 mg Documented by: Chlorhexidine Gluconate () 1 each TOPICAL DAILY [facility], [facility] Last Admin: 04/28/19 09:37 Dose: Not Given Documented by: Cyclobenzaprine HCl (Flexeril) 10 mg PO DAILY [facility] Last Admin: 04/28/19 09:37 Dose: 10 mg Documented by: Fenofibrate (Tricor) 145 mg PO DAILYCM [facility] Last Admin: 04/28/19 09:36 Dose: 145 mg Documented by: Gabapentin (Neurontin) 600 mg PO BID [facility] Last Admin: 04/28/19 09:37 Dose: 600 mg Documented by: Sodium Chloride () 250 mls @ 15 mls/hr IV .[id number] PRN PRN Reason: Saline Flush Sodium Chloride () 250 mls @ 15 mls/hr IV .[id number] PRN PRN Reason: Additional IVPB Infusion Sodium Chloride () 1,000 mls @ 75 mls/hr IV .[id number] [facility] Last Admin: 04/28/19 06:37 Dose: 75 mls/hr Documented by: Ceftriaxone Sodium (Rocephin) 1 gm in 50 mls @ 100 mls/hr IV Q24H [facility] Last Infusion: 04/27/19 23:39 Dose: Infused Documented by: Ipratropium [place] (Atrovent) 0.5 mg INHALATION Q4HWA.RT [facility], [facility] Last Admin: 04/28/19 11:05 Dose: Not Given Documented by: Levalbuterol HCl (Xopenex) 0.63 mg IH Q4HWA.RT [facility] Last Admin: 04/28/19 11:01 Dose: 0.63 mg Documented by: Levetiracetam (Keppra Tablet) 500 mg PO BID [facility] Last Admin: 04/28/19 09:37 Dose: 500 mg Documented by: Melatonin (Melatonin) 3 mg PO QHS PRN PRN PRN Reason: INSOMNIA Ondansetron HCl (Zofran) 4 mg IV Q8H PRN PRN PRN Reason: NAUSEA/VOMITING Pantoprazole Sodium (Protonix) 40 mg PO DAILY [facility] Last Admin: 04/28/19 09:37 Dose: 40 mg Documented by: Paroxetine HCl (Paxil) 40 mg PO DAILY [facility] Last Admin: 04/28/19 09:36 Dose: 40 mg Documented by: Prednisone () 40 mg PO DAILY@0800 [facility] Last Admin: 04/28/19 09:37 Dose: 40 mg Documented by: Quetiapine Fumarate (Seroquel) 100 mg PO QHS [facility] Last Admin: 04/27/19 22:44 Dose: 100 mg Documented by: Ranolazine (Ranexa) 500 mg PO BID [facility] Last Admin: 04/28/19 09:37 Dose: 500 mg Documented by: Sodium Chloride () 10 - 40 ml IV UD PRN PRN Reason: SALINE FLUSH Last Admin: 04/27/19 22:59 Dose: 10 ml Documented by: STROKE Vital Signs/Narrative: Vital Signs Temp Pulse Resp BP Pulse Ox 04/28/19 11:01 109 H 24 H 91 04/28/19 10:59 97.4 F L 109 H 20 H 115/50 L 94 04/28/19 10:23 97.3 F L 114 H 24 H 122/67 H 91 04/28/19 09:09 97.4 F L 79 22 H 124/68 H 93 Medical Necessity - Tobacco Use Smoking Status: Former smoker Assessment/Plan All Active Problems (Last Reviewed 03/20/19 @ 09:59 by Melanie Domingo NP-C) Severe sepsis (Acute) Respiratory failure (Acute) Lower respiratory infection (Acute) Acute respiratory failure with hypoxia and hypercapnia (Acute) Pneumonia (Acute) Sepsis (Acute) Pulmonary embolism (Acute) Cholelithiasis NOS (Acute) Acute respiratory failure with hypoxia and hypercapnia (Acute) COPD with acute exacerbation (Acute) Gram-negative pneumonia (Acute) Acute hypercapnic respiratory failure (Acute) NSTEMI (non-ST elevated myocardial infarction) (Acute) COPD exacerbation (Acute) the patient is a 74-year-old female with history of recurrent admission, last one admitted in March status post intubation for total of 12 days came to ER with shortness of breath and cough for 4 days. Patient is DNR CC arrest. On BiPAP rescue therapy. Admitted in ICU and then transferred to PCU 1. Acute severe sepsis with acute on chronic hypoxic / hypercapnic resp failure with rhinovirus URI, E. coli cystitis and COPD exacerbation -continue oxygen. Discussed with the patient and she agrees with palliative care. Respiratory panel positive for rhinovirus. Urine culture shows presumptive E. coli, more than 100,000 colonies, pansensitive. On IV cefepime, narrowed down to on IV ceftriaxone. On IV Solu-Medrol. Continue DuoNeb nebulizer, albuterol neb as needed, Incentive spirometry, chest physiotherapy Solu-Medrol change to prednisone from tomorrow a.m. Patient is mild tachycardic. 04/28 continue nebulization, prednisone, incentive spirometry and chest physiotherapy. Hospice/palliative care meeting at 4:30 PM. Patient is hospice appropriate. Patient is alert and awake enough to make a decision herself. Discussed with the patient's at the bedside. 2. CAD - prior stents. aspirin/statin/ranolazine, imdur currently held. 3. Oropharyngeal dysphagia -speech and swallow evaluation. Modified barium study was done in February 2019 reported as delayed pharyngeal swallow onset with silent aspiration. Patient was recommended pur?ed texture diet with nectar thickened liquid. 4. Hx anxiety/depression - wellbutrin, seroquel, melatonin 5. Hx seizure disorder - keppra 6. Hx PE - eliquis 7. Tobacco abuse - states she has quit this time. 8. HTN - stable 9. HLD - tricor, statin 10. GERD - on ppi 11. MARISABEL - no bipap at home. she does not like the mask. Patient seen by boom cat operator. Palliative care 12. Fibromyalgia - neurontin, flexeril 13. CKDIII - stable. trend. DVT ppx: eliquis Total time of the visit including total time spent in counseling or coordination of care, (more than 50% of the total time, spent in obtaining medical information from nurses and other ancillary care providers), discussion with boom cat operator, review of labs and imaging is 35 minutes Code Visit Inpatient E&M: 49621 Subs Hosp L2
--- NOTE | 2019-04-28 12:26 | CASEMGMT ---
MILE spoke with physician and he would like [facility] to talk with patient and family about both Palliative and Hospice services. MILE called Agnes at [facility] and asked her to please talk with patient and family about both Palliative and Hospice. She said she will do this. Brenda GARZON MSW
--- NOTE | 2019-04-28 12:30 | NURSING ---
charting reviewed by this RN for student NIKITA
--- NOTE | 2019-04-28 12:55 | PCM.PN.PUL ---
Patient Problems: Active and Suspected Problems (Last Reviewed 03/20/19 @ 09:59 by JOANN Swenson) Severe sepsis (Acute) Respiratory failure (Acute) Subjective: The patient was seen and examined at the bedside this morning. Events from the last 24 hours have been reviewed. The patient is currently afebrile, hemodynamically stable and maintaining appropriate oxygen saturations on 6 L/min via nasal cannula. The patient becomes short of breath with even minimal amounts of physical exertion. There are tentative plans for the patient and her family to meet with a life care hospice environmental marketing representative to discuss palliative and hospice care medicine. Objective: The patient's most recent lab work, culture data and imaging studies have all been personally reviewed. Urine culture was positive for presumptive E. coli. Respiratory viral panel was positive for rhinovirus. - Physical Exam Vitals/I&O's: Vital Signs Temp Pulse Resp BP Pulse Ox 97.4 F L 109 H 24 H 115/50 L 91 04/28/19 10:59 04/28/19 11:01 04/28/19 11:01 04/28/19 10:59 04/28/19 11:01 Oxygen Flow Rate (L/min) 6 Oxygen Delivery Method Nasal Cannula Weight: 143 lb 15.39 oz Body Mass Index (BMI) 26.2 Intake and Output for Last 24 Hours 04/26/19 04/27/19 04/28/19 23:59 23:59 23:59 Intake Total 2796.25 / 2796.25 1550.0 / 1550.0 1290 / 1290 Output Total 2100 / 2100 350 / 350 200 / 200 Balance 696.25 / 696.25 1200.0 / 1200.0 1090 / 1090 General: Alert, Cooperative, No apparent distress HEENT: Atraumatic, Normocephalic Oral: No Gingival or Mucosal Lesions/ Ulcerations Neck: Supple, No Nodes, Trachea Midline Lungs: Diminished, Tachypneic Cardiovascular: Normal S1, Normal S2, No murmurs, Tachycardic Abdomen: Bowel Sounds Present, Soft, Non Tender Extremities: No cyanosis, Clubbing Skin: No breakdown Musculoskeletal: No Tenderness to Palpation of Joints or Extremities Lymphatic: No Cervical, Supraclavicular, or Inguinal Adenopathy Neurological: Cranial nerves II-XII grossly intact, Neuro grossly intact Psych/Mental Status: Normal Affect, Appropriate Labs (Last 48 Hours) 04/25/19 04/26/19 04/27/19 18:14 20:05 04:25 WBC RBC Hgb Hct MCV MCH MCHC RDW Std Deviation RDW Coeff of Abhinav Plt Count MPV Immature Gran % (Auto) Neut % (Auto) Lymph % (Auto) [place] % (Auto) Eos % (Auto) Baso % (Auto) Absolute Neuts (auto) Absolute Lymphs (auto) Nucleated RBC % Diff Path Review Reviewed Sodium 144 Potassium 3.9 Chloride 116 H Carbon Dioxide 21.0 Anion Gap 7 BUN 25 H Creatinine 0.99 Estim Creat Clear Calc 39.43 Est GFR (MDRD) Af Amer 70 Est GFR (MDRD) Non-Af 58 L BUN/Creatinine Ratio 25.2 H Glucose 143 H Calcium 8.0 L Phosphorus 2.2 L Magnesium 2.0 MRSA (PCR) Negative 04/27/19 04/28/19 04/28/19 04:25 07:45 07:45 WBC 11.4 H 12.6 H RBC 3.44 L 3.53 L Hgb 8.9 L 9.2 L Hct 29.3 L 30.8 L MCV 85.2 87.3 MCH 25.9 L 26.1 L MCHC 30.4 L 29.9 L RDW Std Deviation 49.4 H 50.7 H RDW Coeff of Abhinav 15.9 H 15.8 H Plt Count 316 355 MPV 10.2 10.2 Immature Gran % (Auto) 0.700 1.800 H Neut % (Auto) 89.9 H 78.6 H Lymph % (Auto) 6.9 L 14.3 L [place] % (Auto) 2.4 5.1 Eos % (Auto) 0.0 0.0 Baso % (Auto) 0.1 0.2 Absolute Neuts (auto) 10.3 H 9.9 H Absolute Lymphs (auto) 0.79 L 1.80 Nucleated RBC % 0 0.2 Diff Path Review Sodium 144 Potassium 3.8 Chloride 116 H Carbon Dioxide 23.0 Anion Gap 5 BUN 30 H Creatinine 1.16 H Estim Creat Clear Calc 33.65 Est GFR (MDRD) Af Amer 59 L Est GFR (MDRD) Non-Af 49 L BUN/Creatinine Ratio 25.9 H Glucose 101 Calcium 8.3 L Phosphorus Magnesium MRSA (PCR) Microbiology 04/25/19 18:13 Blood Culture (Wb) - Right Foot Blood Culture - Preliminary No growth in 48 hours. 04/25/19 18:13 Blood Culture (Wb) - Left Forearm Blood Culture - Preliminary No growth in 48 hours. 04/25/19 18:55 Urine Catheter - Catheter Urine Culture - Final Presumptive E. coli 04/26/19 07:20 Mucosa - Nasopharyngeal Respiratory Panel (PCR) - Final Rhinovirus Clinical Impression(s) from Imaging Studies Chest X-Ray 04/25/19 18:35 IMPRESSION: 1. No airspace consolidation or pleural effusion. 2. Basilar dominant parenchymal fibrosis. Electronically Signed: Aidan Kulkarni MD ([place]) at 18:53 EST , Service support , Current Medications Acetaminophen (Tylenol) 650 mg PO Q6H PRN PRN PRN Reason: Pain Score 1-10/Temp > 100.7 F Last Admin: 04/28/19 09:36 Dose: 650 mg Documented by: Apixaban (Eliquis) 5 mg PO BID [facility] Last Admin: 04/28/19 09:37 Dose: 5 mg Documented by: Aspirin (Aspirin, Baby) 81 mg PO DAILY@0800 [facility] Last Admin: 04/28/19 09:36 Dose: 81 mg Documented by: Atorvastatin Calcium (Lipitor) 80 mg PO DAILY@2200 [facility] Last Admin: 04/27/19 22:44 Dose: 80 mg Documented by: Bupropion HCl (Wellbutrin Sr (150mg Tablets)) 150 mg PO DAILY [facility] Last Admin: 04/28/19 09:37 Dose: 150 mg Documented by: Chlorhexidine Gluconate () 1 each TOPICAL DAILY [facility] Last Admin: 04/28/19 09:37 Dose: Not Given Documented by: Cyclobenzaprine HCl (Flexeril) 10 mg PO DAILY [facility] Last Admin: 04/28/19 09:37 Dose: 10 mg Documented by: [facility]) [facility] Last Admin: 04/28/19 09:36 Dose: 145 mg Documented by: Gabapentin (Neurontin) 600 mg PO BID [facility] Last Admin: 04/28/19 09:37 Dose: 600 mg Documented by: Sodium Chloride () 250 mls @ 15 mls/hr IV .[id number] PRN PRN Reason: Saline Flush Sodium Chloride () 250 mls @ 15 mls/hr IV .[id number] PRN PRN Reason: Additional IVPB Infusion Sodium Chloride () 1,000 mls @ 75 mls/hr IV .[id number] [facility] Last Admin: 04/28/19 06:37 Dose: 75 mls/hr Documented by: Ceftriaxone Sodium (Rocephin) 1 gm in 50 mls @ 100 mls/hr IV Q24H [facility] Last Infusion: 04/27/19 23:39 Dose: Infused Documented by: Ipratropium [place] (Atrovent) 0.5 mg INHALATION Q4HWA.RT [facility] Last Admin: 04/28/19 11:05 Dose: Not Given Documented by: Levalbuterol HCl (Xopenex) 0.63 mg IH Q4HWA.RT [facility] Last Admin: 04/28/19 11:01 Dose: 0.63 mg Documented by: Levetiracetam (Keppra Tablet) 500 mg PO BID [facility] Last Admin: 04/28/19 09:37 Dose: 500 mg Documented by: Melatonin (Melatonin) 3 mg PO QHS PRN PRN PRN Reason: INSOMNIA Ondansetron HCl (Zofran) 4 mg IV Q8H PRN PRN PRN Reason: NAUSEA/VOMITING Pantoprazole Sodium (Protonix) 40 mg PO DAILY [facility] Last Admin: 04/28/19 09:37 Dose: 40 mg Documented by: Paroxetine HCl (Paxil) 40 mg PO DAILY [facility] Last Admin: 04/28/19 09:36 Dose: 40 mg Documented by: Prednisone () 40 mg PO DAILY@0800 [facility] Last Admin: 04/28/19 09:37 Dose: 40 mg Documented by: Quetiapine Fumarate (Seroquel) 100 mg PO QHS [facility] Last Admin: 04/27/19 22:44 Dose: 100 mg Documented by: Ranolazine (Ranexa) 500 mg PO BID [facility] Last Admin: 04/28/19 09:37 Dose: 500 mg Documented by: Sodium Chloride () 10 - 40 ml IV UD PRN PRN Reason: SALINE FLUSH Last Admin: 04/27/19 22:59 Dose: 10 ml Documented by: Medical Necessity - Tobacco Use Smoking Status: Former smoker Assessment/Plan All Active Problems (Last Reviewed 03/20/19 @ 09:59 by Melanie Domingo, CHANI-C) Severe sepsis (Acute) Respiratory failure (Acute) Lower respiratory infection (Acute) Acute respiratory failure with hypoxia and hypercapnia (Acute) Pneumonia (Acute) Sepsis (Acute) Pulmonary embolism (Acute) Cholelithiasis NOS (Acute) Acute respiratory failure with hypoxia and hypercapnia (Acute) COPD with acute exacerbation (Acute) Gram-negative pneumonia (Acute) Acute hypercapnic respiratory failure (Acute) NSTEMI (non-ST elevated myocardial infarction) (Acute) COPD exacerbation (Acute) RECOMMENDATIONS: 1. Continue antibiotics. 2. Continue to wean supplemental oxygen as tolerated. 3. Continue scheduled bronchodilators and steroids. 4. Continue Eliquis 5. Encourage incentive spirometer use and mobilize patient as tolerated. IMPRESSIONS: 1. Acute on chronic combined respiratory failure likely secondary to COPD with exacerbation Appears to be secondary to rhinovirus upper respiratory infection. We will plan to continue current supportive measures with scheduled bronchodilators and IV steroids. Continue to wean supplemental oxygen as tolerated. Encourage incentive spirometer use and mobilize patient as tolerated. 2. Severe sepsis secondary to combined E. coli cystitis and rhinovirus upper respiratory infection Continue antimicrobial therapy with plans to de-escalate based upon urine culture sensitivities. The patient remains hemodynamically stable. 3. Acute kidney injury Improved. Potentially related to normal saline utilized for volume resuscitation. Continue to monitor urine output. Avoid nephrotoxic medications. 4. History of venous thromboembolic disease The patient does have a history of pulmonary emboli, for which she will be continued on Eliquis per outpatient regimen. 5. History of unspecified seizure disorder Continue Keppra per outpatient regimen. 6. Tobacco dependency, currently in remission/hypertension/hyperlipidemia/peripheral vascular disease Complicates care, management, recovery and prognosis. Okay to continue home medications as indicated. Physical therapy to work with the patient. This note was generated with [employer] dictation software. It may contain incorrect words, spelling, and punctuation that were not noted in checking the note before signing. Code Visit Inpatient E&M: 46670 Subs Hosp L2
--- NOTE | 2019-04-28 18:06 | NURSING ---
Hospice rental representative brought to this RN's attention that a bug of some sort was noted in patient's room crawling on the bedside table. This RN proceeded to have all family members bag up items and remove from patient's room. All patient belongings removed and double bagged. Bug specimen was collected and confirmed to be a bed bug. Per protocol patient given complete bath and transferred to a new room. All equipment sterilized and Sancho from [facility] was notified by Virgie nieves RN.
[2019-04-28] MEDS: Atorvastatin Calcium 80 MG Tablet PO (22:54)
[2019-04-28] MEDS: QUEtiapine 100 MG Tablet PO (22:55)
[2019-04-28] MEDS: Ceftriaxone 1 GM/50 ML BAG IV (23:01)
[2019-04-29] VITALS (10 sets, daily range): BP systolic 114–139; BP diastolic 68–85; PULSE 92–120; RESP 18–24; TEMP 36.2–37.2; O2SAT 40–95
--- NOTE | 2019-04-29 00:37 | CPS ---
Venti-mask applied to pt. to meet oxygenation demands; pt.'s SpO2 was 82% on 6L [place].
[2019-04-29 05:41] LABS: Absolute Lymphocyte Count 2.24 X10^3/uL (0.83-4.51); Absolute Neutrophil Count 6.2 X10^3/uL (2.0-7.7); Basophil# 0.01 X10^3/uL; Basophil% 0.1 % (0-1); Eosinophil# 0.04 X10^3/uL; Eosinophils% 0.4 % (0-5); Hematocrit 28.2 % (37-47); Hemoglobin 8.4 g/dL (12.0-15.0); Lymphocyte # 2.24 X10^3/ul (4.0); Lymphocyte % 23.3 % (19-41); Mean Corp Hgb Conc 29.8 g/dL (32-36); Mean Corpuscular Hgb 26.1 pg (27.0-32.0); Mean Corpuscular Volume 87.6 fL (81-99); Mean Platelet Vol. 10.2 fl (6.2-12.0); Monocyte# 0.78 X10^3/uL; Monocyte% 8.1 % (0-10); NRBC Flagged by Analyzer 0.5 % (0-5); Neutrophil # 6.21 X10^3/uL (2.7-7.7); Neutrophil % 64.6 % (47-70); Platelet Count 329 K/mm3 (150-450); RBC Distribution Width CV 15.9 % (11.6-14.6); Red Blood Count 3.22 M/mm3 (4.2-5.4); White Blood Count 9.6 K/mm3 (4.4-11.0)
[2019-04-29 06:07] LABS: Anion Gap 5 (5-15); BUN 27 mg/dL (7-18); BUN/Creat Ratio 25.5 RATIO (10-20); Calcium,Total 7.7 mg/dL (8.5-10.1); Chloride 116 mmol/L (98-107); Creatinine, Serum 1.06 mg/dL (0.55-1.02); EST Glomerular Filtration Rate 54 mL/min (>60); Est Glom Filt Rate - Afr Amer 65 mL/min (>60); Estimated Creatinine Clearance 36.83 ml/min; Glucose 92 mg/dL (74-106); Potassium 3.6 mmol/L (3.5-5.1); Sodium Level 145 mmol/L (136-145)
[2019-04-29] MEDS: Ipratropium 0.5 MG/2.5 ML SOLUTION INHALATION ×2 (06:45→10:55)
--- NOTE | 2019-04-29 07:20 | PCM.PN.PUL ---
Patient Problems: Active and Suspected Problems (Last Reviewed 03/20/19 @ 09:59 by JOANN Swenson) Severe sepsis (Acute) Respiratory failure (Acute) Subjective: The patient was seen and examined at the bedside this morning. Events from the last 24 hours have been reviewed. The patient is currently afebrile, hemodynamically stable and maintaining appropriate oxygen saturations on a Ventimask with an FiO2 requirement of 40%. The patient is currently being evaluated by hospice for inpatient services. Objective: The patient's most recent lab work, culture data and imaging studies have all been personally reviewed. Urine culture was positive for presumptive E. coli. Respiratory viral panel was positive for rhinovirus. - Physical Exam Vitals/I&O's: Vital Signs Temp Pulse Resp BP Pulse Ox 97.8 F 102 H 20 H 114/69 95 04/29/19 05:30 04/29/19 05:30 04/29/19 05:30 04/29/19 05:30 04/29/19 05:30 Oxygen Flow Rate (L/min) 8 Oxygen Delivery Method Venturi Mask Weight: 151 lb 0.266 oz Body Mass Index (BMI) 26.2 Intake and Output for Last 24 Hours 04/27/19 04/28/19 04/29/19 23:59 23:59 23:59 Intake Total 1550.0 / 1550.0 2630.00 / 2630.00 100 / 100 Output Total 350 / 350 400 / 400 50 / 50 Balance 1200.0 / 1200.0 2230.00 / 2230.00 50 / 50 General: Alert, Cooperative HEENT: Atraumatic, Normocephalic Oral: No Gingival or Mucosal Lesions/ Ulcerations Neck: Supple, No Nodes, Trachea Midline Lungs: Diminished, Short of Breath, Tachypneic Cardiovascular: Normal S1, Normal S2, No murmurs, Tachycardic Abdomen: Bowel Sounds Present, Soft, Non Tender Extremities: No cyanosis, Clubbing Skin: No breakdown Musculoskeletal: No Tenderness to Palpation of Joints or Extremities Lymphatic: No Cervical, Supraclavicular, or Inguinal Adenopathy Neurological: Neuro grossly intact Psych/Mental Status: Anxious Labs (Last 48 Hours) 04/25/19 04/28/19 04/28/19 18:14 07:45 07:45 WBC 12.6 H RBC 3.53 L Hgb 9.2 L Hct 30.8 L MCV 87.3 MCH 26.1 L MCHC 29.9 L RDW Std Deviation 50.7 H RDW Coeff of Abhinav 15.8 H Plt Count 355 MPV 10.2 Immature Gran % (Auto) 1.800 H Neut % (Auto) 78.6 H Lymph % (Auto) 14.3 L [place] % (Auto) 5.1 Eos % (Auto) 0.0 Baso % (Auto) 0.2 Absolute Neuts (auto) 9.9 H Absolute Lymphs (auto) 1.80 Nucleated RBC % 0.2 [address] Path Review Reviewed Sodium 144 Potassium 3.8 Chloride 116 H Carbon Dioxide 23.0 Anion Gap 5 BUN 30 H Creatinine 1.16 H Estim Creat Clear Calc 33.65 Est GFR (MDRD) Af Amer 59 L Est GFR (MDRD) Non-Af 49 L BUN/Creatinine Ratio 25.9 H Glucose 101 Calcium 8.3 L 04/29/19 04/29/19 04:58 04:58 WBC 9.6 RBC 3.22 L Hgb 8.4 L Hct 28.2 L MCV 87.6 MCH 26.1 L MCHC 29.8 L RDW Std Deviation 51.0 H RDW Coeff of Abhinav 15.9 H Plt Count 329 MPV 10.2 Immature Gran % (Auto) 3.500 H Neut % (Auto) 64.6 Lymph % (Auto) 23.3 [place] % (Auto) 8.1 Eos % (Auto) 0.4 Baso % (Auto) 0.1 Absolute Neuts (auto) 6.2 Absolute Lymphs (auto) 2.24 Nucleated RBC % 0.5 Diff Path Review Sodium 145 Potassium 3.6 Chloride 116 H Carbon Dioxide 24.0 Anion Gap 5 BUN 27 H Creatinine 1.06 H Estim Creat Clear Calc 36.83 Est GFR (MDRD) Af Amer 65 Est GFR (MDRD) Non-Af 54 L BUN/Creatinine Ratio 25.5 H Glucose 92 Calcium 7.7 L Microbiology 04/25/19 18:13 Blood Culture (Wb) - Right Foot Blood Culture - Preliminary No growth in 48 hours. 04/25/19 18:13 Blood Culture (Wb) - Left Forearm Blood Culture - Preliminary No growth in 48 hours. 04/25/19 18:55 Urine Catheter - Catheter Urine Culture - Final Presumptive E. coli Clinical Impression(s) from Imaging Studies Chest X-Ray 04/25/19 18:35 IMPRESSION: 1. No airspace consolidation or pleural effusion. 2. Basilar dominant parenchymal fibrosis. Electronically Signed: Aidan Kulkarni MD ([place]) at 18:53 EST , Service support , Current Medications Acetaminophen (Tylenol) 650 mg PO Q6H PRN PRN PRN Reason: Pain Score 1-10/Temp > 100.7 F Last Admin: 04/28/19 09:36 Dose: 650 mg Documented by: Apixaban (Eliquis) 5 mg PO BID [facility] Last Admin: 04/28/19 22:54 Dose: 5 mg Documented by: Aspirin (Aspirin, Baby) 81 mg PO DAILY@0800 [facility] Last Admin: 04/28/19 09:36 Dose: 81 mg Documented by: Atorvastatin Calcium (Lipitor) 80 mg PO DAILY@2200 [facility] Last Admin: 04/28/19 22:54 Dose: 80 mg Documented by: Bupropion HCl (Wellbutrin Sr (150mg Tablets)) 150 mg PO DAILY [facility] Last Admin: 04/28/19 09:37 Dose: 150 mg Documented by: Chlorhexidine Gluconate () 1 each TOPICAL DAILY [facility] Last Admin: 04/28/19 09:37 Dose: Not Given Documented by: Cyclobenzaprine HCl (Flexeril) 10 mg PO DAILY [facility] Last Admin: 04/28/19 09:37 Dose: 10 mg Documented by: [facility]) [facility] Last Admin: 04/28/19 09:36 Dose: 145 mg Documented by: Gabapentin (Neurontin) 600 mg PO BID [facility] Last Admin: 04/28/19 22:54 Dose: 600 mg Documented by: Sodium Chloride () 250 mls @ 15 mls/hr IV .[id number] PRN PRN Reason: Saline Flush Sodium Chloride () 250 mls @ 15 mls/hr IV .[id number] PRN PRN Reason: Additional IVPB Infusion Sodium Chloride () 1,000 mls @ 75 mls/hr IV .[id number] [facility] Last Admin: 04/28/19 20:46 Dose: 75 mls/hr Documented by: Ceftriaxone Sodium (Rocephin) 1 gm in 50 mls @ 100 mls/hr IV Q24H [facility] Last Infusion: 04/29/19 00:04 Dose: Infused Documented by: Ipratropium [place] (Atrovent) 0.5 mg INHALATION Q4HWA.RT [facility] Last Admin: 04/29/19 06:45 Dose: 0.5 mg Documented by: Levalbuterol HCl (Xopenex) 0.63 mg IH Q4HWA.RT [facility] Last Admin: 04/28/19 15:24 Dose: 0.63 mg Documented by: Levetiracetam (Keppra Tablet) 500 mg PO BID [facility] Last Admin: 04/28/19 22:55 Dose: 500 mg Documented by: Melatonin (Melatonin) 3 mg PO QHS PRN PRN PRN Reason: INSOMNIA Ondansetron HCl (Zofran) 4 mg IV Q8H PRN PRN PRN Reason: NAUSEA/VOMITING Pantoprazole Sodium (Protonix) 40 mg PO DAILY [facility] Last Admin: 04/28/19 09:37 Dose: 40 mg Documented by: Paroxetine HCl (Paxil) 40 mg PO DAILY [facility] Last Admin: 04/28/19 09:36 Dose: 40 mg Documented by: Prednisone () 40 mg PO DAILY@0800 [facility] Last Admin: 04/28/19 09:37 Dose: 40 mg Documented by: Quetiapine Fumarate (Seroquel) 100 mg PO QHS [facility] Last Admin: 04/28/19 22:55 Dose: 100 mg Documented by: Ranolazine (Ranexa) 500 mg PO BID [facility] Last Admin: 04/28/19 22:55 Dose: 500 mg Documented by: Sodium Chloride () 10 - 40 ml IV UD PRN PRN Reason: SALINE FLUSH Last Admin: 04/27/19 22:59 Dose: 10 ml Documented by: Medical Necessity - Tobacco Use Smoking Status: Former smoker Assessment/Plan All Active Problems (Last Reviewed 03/20/19 @ 09:59 by Melanie Domingo NP-C) Severe sepsis (Acute) Respiratory failure (Acute) Lower respiratory infection (Acute) Acute respiratory failure with hypoxia and hypercapnia (Acute) Pneumonia (Acute) Sepsis (Acute) Pulmonary embolism (Acute) Cholelithiasis NOS (Acute) Acute respiratory failure with hypoxia and hypercapnia (Acute) COPD with acute exacerbation (Acute) Gram-negative pneumonia (Acute) Acute hypercapnic respiratory failure (Acute) NSTEMI (non-ST elevated myocardial infarction) (Acute) COPD exacerbation (Acute) RECOMMENDATIONS: 1. Continue antibiotics to complete treatment course. 2. Continue to wean supplemental oxygen as tolerated. 3. Continue scheduled bronchodilators and steroids. 4. Continue Eliquis 5. Encourage incentive spirometer use and mobilize patient as tolerated. 6. Discontinue supplemental IV fluids and administer IV Lasix 40 mg x 1. 7. Agree with inpatient hospice care evaluation today. IMPRESSIONS: 1. Acute on chronic combined respiratory failure likely secondary to COPD with exacerbation Appears to be secondary to rhinovirus upper respiratory infection. We will plan to continue current supportive measures with scheduled bronchodilators and IV steroids. Continue to wean supplemental oxygen as tolerated. Encourage incentive spirometer use and mobilize patient as tolerated. 2. Severe sepsis secondary to combined E. coli cystitis and rhinovirus upper respiratory infection Continue antimicrobial therapy with plans to de-escalate based upon urine culture sensitivities. The patient remains hemodynamically stable. 3. Acute kidney injury Improved. Potentially related to normal saline utilized for volume resuscitation. Continue to monitor urine output. Avoid nephrotoxic medications. 4. History of venous thromboembolic disease The patient does have a history of pulmonary emboli, for which she will be continued on Eliquis per outpatient regimen. 5. History of unspecified seizure disorder Continue Keppra per outpatient regimen. 6. Tobacco dependency, currently in remission/hypertension/hyperlipidemia/peripheral vascular disease Complicates care, management, recovery and prognosis. Okay to continue home medications as indicated. Physical therapy to work with the patient. This note was generated with [employer] dictation software. It may contain incorrect words, spelling, and punctuation that were not noted in checking the note before signing. Code Visit Inpatient E&M: 34062 Subs Hosp L2
[2019-04-29] MEDS: Furosemide 40 MG/4 ML Vial IV (09:17)
[2019-04-29] MEDS: 0.9% Saline Lock 10 ML Syringe IV (09:17)
[2019-04-29] MEDS: Aspirin 81 MG TAB.CHEW PO (09:31)
[2019-04-29] MEDS: cycloBENZAPRine HCl 10 MG Tablet PO (09:32)
[2019-04-29] MEDS: APIXABAN 5 MG TABLET PO (09:33)
[2019-04-29] MEDS: Fenofibrate 145 MG Tablet PO (09:33)
[2019-04-29] MEDS: levETIRAcetam 500 MG Tablet PO (09:34)
[2019-04-29] MEDS: Gabapentin 600 MG Tablet PO (09:36)
[2019-04-29] MEDS: Paroxetine 20 MG Tablet 40 MG PO (09:36)
[2019-04-29] MEDS: Ranolazine 500 MG Tablet PO (09:36)
[2019-04-29] MEDS: Pantoprazole Sodium 40 MG Tablet PO (09:37)
[2019-04-29] MEDS: buPROPion (SR) 150 MG Tablet.SA PO (09:37)
[2019-04-29] MEDS: predniSONE 20 MG Tablet 40 MG PO (09:42)
--- NOTE | 2019-04-29 09:47 | CASEMGMT ---
SW called [facility], spoke w/Agnes Stephens. She states pt was adamant about returning home, however a bed bug was found in pt's room yesterday and she was concerned about pt returning to the home environment. SW explained that pt is now on a venti mask and inquired if pt may be reassessed for the inpt hospice unit. Agnes will follow up w/family and will let SW know what the family would like to do. MILE will continue to follow. JOSELYN Ellis
--- NOTE | 2019-04-29 09:53 | DCINST_ITS ---
- Discharge Diagnoses Current Active Problems: Current Active and Chronic Problems (Last Reviewed 03/20/19 @ 09:59 by JOANN Swenson) Severe sepsis (Acute) Respiratory failure (Acute) You will use the following diet at home:: Cardiac Your food should be the consistency of: Regular Discharge Activity: May Not Drive Weight Bearing Status: Weight bearing as tolerated Call your doctor if you observe: Fever of 101 or Higher, Coldness, Increased Pain, Numbness or Tingling, Inability to urinate, Inability to have a bowel movement, Using more than one pad per hour, Shortness of breath, Dizziness, Fainting spells, Swelling in the ankles, Chest pain, Prolonged hiccoughing, Increased palpitations (irregular heartbeat), Calf discomfort, Uncontrolled pain Additional Instructions: Discharge to home hospice care. Follow-up with palliative care at home Allergies/Adverse Reactions: Allergies codeine Allergy (Unknown, Verified 04/25/19 18:36) nausea, hives morphine Allergy (Unknown, Verified 04/25/19 18:36) Nausea naproxen [From Naprosyn] Allergy (Unknown, Verified 04/25/19 18:36) Hives Sulfa (Sulfonamide Antibiotics) Allergy (Unknown, Verified 04/25/19 18:36) Hives albuterol Allergy (Verified 04/25/19 18:36) Rash fentanyl Adverse Reaction (Severe, Verified 04/25/19 18:36) Rash OD on Fentany patch. Very sensitive to does 75mcg patch lithium Adverse Reaction (Unknown, Verified 04/25/19 18:36) anger phenobarbital Adverse Reaction (Unknown, Verified 04/25/19 18:36) anger Iodine and Iodide Containing Produc Adverse Reaction (Verified 04/25/19 18:36) Hives ipratropium [From DuoNeb] Adverse Reaction (Verified 04/25/19 18:36) Hives Penicillins [PCN] Adverse Reaction (Verified 04/25/19 18:36) Hives Medications to take at Discharge Gabapentin [Neurontin] 600 mg PO BID 07/13/14 cycloBENZAPRine HCl [Flexeril] 10 mg PO DAILY 07/13/14 Fluticasone/Vilanterol [Breo Ellipta 200-25 Mcg INH] 1 ea IH DAILY 12/17/16 Paroxetine HCl [Paxil] 40 mg PO DAILY 12/17/16 nitroglycerin 0.4 mg sublingual tablet 0.4 mg SUBLINGUAL Q5M PRN #25 tab 03/25/17 ranolazine 500 mg tablet,extended release,12 hr 500 mg PO BID #180 tab 03/25/17 Pantoprazole Sodium [Protonix] 40 mg PO DAILY 11/23/17 buPROPion SR [Wellbutrin SR (150mg tablets)] 150 mg PO DAILY 11/23/17 albuterol sulfate 90 mcg/actuation aerosol inhaler 2 puff INHALATION Q6H PRN #18 g 01/29/18 Aspirin [Aspirin, Baby] 81 mg PO DAILY@0800 03/30/18 Atorvastatin Calcium 80 mg PO DAILY 09/11/18 DiphenhydrAMINE [Benadryl] 25 mg PO Q6H PRN PRN 09/11/18 Fenofibrate [Tricor] 200 mg PO DAILY 09/11/18 Ipratropium [Atrovent Inhaler] 2 puff INHALATION 4X/DAY 09/11/18 Levalbuterol HCl 1 puff INHALATION 4X/DAY PRN PRN 09/11/18 Metoprolol Tartrate 25 mg PO BID 09/11/18 Isosorbide Mononitrate [Isosorbide Mononitrate ER] 60 mg PO DAILY 02/19/19 Acetaminophen Liquid [Tylenol Liquid] 650 mg PO Q6H PRN PRN udc 03/06/19 Polyethylene Glycol 3350 [Miralax] 17 gm PO DAILY PRN packet 03/06/19 levETIRAcetam tablet [Keppra tablet] 500 mg PO BID tab 03/06/19 Amlodipine Besylate [Norvasc] 5 mg PO DAILY 04/25/19 Quetiapine Fumarate [Seroquel] 100 mg PO QHS 04/25/19 Apixaban [Eliquis] 5 mg PO DAILY #0 04/29/19 Ciprofloxacin [Cipro] 500 mg PO BID #4 tab 04/29/19 Potassium Chloride [K-Dur] 20 meq PO BIDCM 04/29/19 Prednisone 10 mg PO DAILY #30 tab 04/29/19 Tiotropium [place] [Spiriva Respimat] 2 puff INHALATION QDAY 04/29/19 The following prescriptions were given: Ciprofloxacin [Cipro] 500 mg PO BID #4 tab Transmission Status: Received by [facility]/pharmacy #[id number] Prednisone 10 mg PO DAILY #30 tab Transmission Status: Received by [facility]/pharmacy #[id number] Primary Care Physician: Darleen Craig MD [Primary Care Provider] - Please follow up with your Primary Care Physician in: in 2 weeks Test Results: Test results from this visit will be discussed in further detail at your follow- up appointment, if applicable.
--- NOTE | 2019-04-29 09:55 | PCM.DC.SUM ---
Discharge Date and Diagnosis Date of Admission: 04/25/19 Date of Discharge: 04/29/19 - Primary Discharge Diagnosis Active and Suspected Problems (Last Reviewed 03/20/19 @ 09:59 by JOANN Swenson) Severe sepsis (Acute) Respiratory failure (Acute) - Secondary Discharge Diagnosis Chronic Problems (Last Reviewed 03/20/19 @ 09:59 by JOANN Swenson) Pure hypercholesterolemia (Chronic) Essential hypertension (Chronic) COPD (chronic obstructive pulmonary disease) (Chronic) COPD with acute exacerbation (Chronic) Tinea unguium (Chronic) Presence of stent in coronary artery (Chronic) PTCA/SUSAN to ostium of LMT 10/01/2014 @[facility]; PTCA/SUSAN of the mid/distal RCA 11/11/17 CAD (coronary artery disease) (Chronic) Successful PTCA/SUSAN of the of mid/distal RCA with a 2.25 x 38 Promus Synergy, post dilated proximally with a 3.0 x 12 NC balloon at 8 safia (2.5mm); 75%-->0%, no dissection. Successful PTCA/SUSAN of the proximal RCA with a 2.5 x 20 Promus Synergy, post dilated with a 3.0 x 12 at 14 safia; 75%-->0%, no dissection. Tobacco abuse (Chronic) Congestive heart failure (Chronic) Nonrheumatic tricuspid (valve) insufficiency (Chronic) Nonrheumatic mitral valve insufficiency (Chronic) Nicotine dependence, cigarettes, uncomplicated (Chronic) Atherosclerosis of [place] coronary artery of [place] heart without angina pectoris (Chronic) PTCA/SUSAN to ostium of LMT 10/01/2014 @[facility]; PTCA/SUSAN to mid/distal RCA and proximal RCA in November 2017 at [facility]; SOB (shortness of breath) (Chronic) Hospital Course and Treatment Operations: None Summary of Care Provided: [] the patient is a 74-year-old female with history of recurrent admission, last one admitted in March status post intubation for total of 12 days came to ER with shortness of breath and cough for 4 days. Patient is DNR CC arrest. On BiPAP rescue therapy. Admitted in ICU and then transferred to PCU 1. Acute severe sepsis with acute on chronic hypoxic / hypercapnic resp failure with rhinovirus URI, E. coli cystitis and COPD exacerbation -continue oxygen. Discussed with the patient and she agrees with palliative care. Respiratory panel positive for rhinovirus. Urine culture shows presumptive E. coli, more than 100,000 colonies, pansensitive. On IV cefepime, narrowed down to on IV ceftriaxone. On IV Solu-Medrol. Continue DuoNeb nebulizer, albuterol neb as needed, Incentive spirometry, chest physiotherapy Solu-Medrol change to prednisone from tomorrow a.m. Patient is mild tachycardic. 04/28 continue nebulization, prednisone, incentive spirometry and chest physiotherapy. Hospice/palliative care meeting at 4:30 PM. Patient is hospice appropriate. Patient is alert and awake enough to make a decision herself. Discussed with the patient's at the bedside. 04/29: Hospice meeting was done yesterday and patient accepted for inpatient hospice. As the patient is more short of breath on Ventimask, tachypnea, rhonchi and wheezing probably secondary to pulmonary congestion, Lasix 40 mg IV was given by interlocker maintainer. Patient breathing is better. Patient is being transferred to inpatient hospice. 2. CAD - prior stents. aspirin/statin/ranolazine, imdur currently held. 3. Oropharyngeal dysphagia -speech and swallow evaluation. Modified barium study was done in February 2019 reported as delayed pharyngeal swallow onset with silent aspiration. Patient was recommended pur?ed texture diet with nectar thickened liquid. 4. Hx anxiety/depression - wellbutrin, seroquel, melatonin 5. Hx seizure disorder - keppra 6. Hx PE - eliquis 7. Tobacco abuse - states she has quit this time. 8. HTN - stable 9. HLD - tricor, statin 10. GERD - on ppi 11. MARISABEL - no bipap at home. she does not like the mask. Patient seen by train operator. Palliative care 12. Fibromyalgia - neurontin, flexeril 13. CKDIII - stable. trend. DVT ppx: eliquis Discharge medication reconciliation done. Discharge follow-up instructions completed. Discharge process discussed with the patient and all questions were answered to patient's satisfaction. Patient agreed for inpatient hospice care. Discharged to inpatient hospice care Total time spent, exact 35 minutes on discharge meds reconciliation, examination, coordination of care with nurses and ancillary staff, review of imaging and blood test and discussion with the patient on follow-up instructions Subjective: Patient was more short of breath in the morning. Tachycardic, blood pressure is maintained. Patient was put on Ventimask, pulse ox 92%. Since patient had over hydration mild pulmonary congestion. Lasix was given by ER physician. - Physical Exam Vitals/I&O's: Vital Signs Temp Pulse Resp BP Pulse Ox 97.8 F 95 24 H 114/69 40 04/29/19 05:30 04/29/19 06:58 04/29/19 06:45 04/29/19 05:30 04/29/19 06:45 Oxygen Flow Rate (L/min) 9 Oxygen Delivery Method Venturi Mask Weight: 151 lb 0.266 oz Body Mass Index (BMI) 26.2 Intake and Output for Last 24 Hours 04/27/19 04/28/19 04/29/19 23:59 23:59 23:59 Intake Total 1550.0 / 1550.0 2630.00 / 2630.00 1038.75 / 1038.75 Output Total 350 / 350 400 / 400 50 / 50 Balance 1200.0 / 1200.0 2230.00 / 2230.00 988.75 / 988.75 General: Oriented x3, Cooperative, Lethargic HEENT: Atraumatic, PERRLA, EOMI, Normocephalic Oral: - - Ventimask. Neck: Supple, No JVD, Negative Carotid Bruits Lungs: Diminished, Rhonchi, Short of Breath, Tachypneic Cardiovascular: Regular Rhythm, Normal S1, Normal S2, No murmurs, Tachycardic Abdomen: Bowel Sounds Present, Soft, Non Tender, Non-Distended Extremities: No edema, Capillary Refill Less than 3 Seconds Skin: No rashes, No breakdown Musculoskeletal: No Tenderness to Palpation of Joints or Extremities, Arthritic Changes, Muscle Wasting Neurological: Cranial nerves II-XII grossly intact, Deep Tendon Reflexes 2+/4 and Symmetrical, Neuro grossly intact Psych/Mental Status: Anxious Microbiology Past 72 Hours 04/25/19 18:13 Blood Culture (Wb) - Right Foot Blood Culture - Preliminary No growth in 48 hours. 04/25/19 18:13 Blood Culture (Wb) - Left Forearm Blood Culture - Preliminary No growth in 48 hours. 04/25/19 18:55 Urine Catheter - Catheter Urine Culture - Final Presumptive E. coli 04/26/19 07:20 Mucosa - Nasopharyngeal Respiratory Panel (PCR) - Final Rhinovirus Laboratory Results 04/29/19 04:58: WBC 9.6, RBC 3.22 L, Hgb 8.4 L, Hct 28.2 L, MCV 87.6, MCH 26.1 L, MCHC 29.8 L, RDW Std Deviation 51.0 H, RDW Coeff of Abhinav 15.9 H, Plt Count 329, MPV 10.2, Immature Gran % (Auto) 3.500 H, Neut % (Auto) 64.6, Lymph % (Auto) 23.3, [place] % (Auto) 8.1, Eos % (Auto) 0.4, Baso % (Auto) 0.1, Absolute Neuts (auto) 6.2, Absolute Lymphs (auto) 2.24, Nucleated RBC % 0.5 04/29/19 04:58: Sodium 145, Potassium 3.6, Chloride 116 H, Carbon Dioxide 24.0, Anion Gap 5, BUN 27 H, Creatinine 1.06 H, Estim Creat Clear Calc 36.83, Est GFR (MDRD) Af Amer 65, Est GFR (MDRD) Non-Af 54 L, BUN/Creatinine Ratio 25.5 H, Glucose 92, Calcium 7.7 L Current Medications Acetaminophen (Tylenol) 650 mg PO Q6H PRN PRN PRN Reason: Pain Score 1-10/Temp > 100.7 F Last Admin: 04/28/19 09:36 Dose: 650 mg Documented by: Aspirin (Aspirin, Baby) 81 mg PO DAILY@0800 [facility] Last Admin: 04/29/19 09:31 Dose: 81 mg Documented by: Atorvastatin Calcium (Lipitor) 80 mg PO DAILY@2200 [facility] Last Admin: 04/28/19 22:54 Dose: 80 mg Documented by: Bupropion HCl (Wellbutrin Sr (150mg Tablets)) 150 mg PO DAILY [facility] Last Admin: 04/29/19 09:37 Dose: 150 mg Documented by: Chlorhexidine Gluconate () 1 each TOPICAL DAILY [facility] Last Admin: 04/29/19 09:22 Dose: Not Given Documented by: Cyclobenzaprine HCl (Flexeril) 10 mg PO DAILY [facility] Last Admin: 04/29/19 09:32 Dose: 10 mg Documented by: [facility] Admin: 04/29/19 09:33 Dose: 145 mg Documented by: Gabapentin (Neurontin) 600 mg PO BID [facility] Last Admin: 04/29/19 09:36 Dose: 600 mg Documented by: Sodium Chloride () 250 mls @ 15 mls/hr IV .[id number] PRN PRN Reason: Saline Flush Sodium Chloride () 250 mls @ 15 mls/hr IV .[id number] PRN PRN Reason: Additional IVPB Infusion Ceftriaxone Sodium (Rocephin) 1 gm in 50 mls @ 100 mls/hr IV Q24H [facility] Last Infusion: 04/29/19 00:04 Dose: Infused Documented by: Ipratropium [place] (Atrovent) 0.5 mg INHALATION Q4HWA.RT [facility] Last Admin: 04/29/19 06:45 Dose: 0.5 mg Documented by: Levalbuterol HCl (Xopenex) 0.63 mg IH Q4HWA.RT [facility] Last Admin: 04/28/19 15:24 Dose: 0.63 mg Documented by: Levetiracetam (Keppra Tablet) 500 mg PO BID [facility] Last Admin: 04/29/19 09:34 Dose: 500 mg Documented by: Melatonin (Melatonin) 3 mg PO QHS PRN PRN PRN Reason: INSOMNIA Ondansetron HCl (Zofran) 4 mg IV Q8H PRN PRN PRN Reason: NAUSEA/VOMITING Pantoprazole Sodium (Protonix) 40 mg PO DAILY [facility] Last Admin: 04/29/19 09:37 Dose: 40 mg Documented by: Paroxetine HCl (Paxil) 40 mg PO DAILY [facility] Last Admin: 04/29/19 09:36 Dose: 40 mg Documented by: Prednisone () 40 mg PO DAILY@0800 [facility] Last Admin: 04/29/19 09:42 Dose: 40 mg Documented by: Quetiapine Fumarate (Seroquel) 100 mg PO QHS [facility] Last Admin: 04/28/19 22:55 Dose: 100 mg Documented by: Ranolazine (Ranexa) 500 mg PO BID [facility] Last Admin: 04/29/19 09:36 Dose: 500 mg Documented by: Sodium Chloride () 10 - 40 ml IV UD PRN PRN Reason: SALINE FLUSH Last Admin: 04/29/19 09:17 Dose: 10 ml Documented by: Discharge Activity: May Not Drive Weight Bearing Status: Weight bearing as tolerated Call your doctor if you observe: Fever of 101 or Higher, Coldness, Increased Pain, Numbness or Tingling, Inability to urinate, Inability to have a bowel movement, Using more than one pad per hour, Shortness of breath, Dizziness, Fainting spells, Swelling in the ankles, Chest pain, Prolonged hiccoughing, Increased palpitations (irregular heartbeat), Calf discomfort, Uncontrolled pain Home Medications: Medications to take at Discharge Gabapentin [Neurontin] 600 mg PO BID 07/13/14 cycloBENZAPRine HCl [Flexeril] 10 mg PO DAILY 07/13/14 Fluticasone/Vilanterol [Breo Ellipta 200-25 Mcg INH] 1 ea IH DAILY 12/17/16 Paroxetine HCl [Paxil] 40 mg PO DAILY 12/17/16 nitroglycerin 0.4 mg sublingual tablet 0.4 mg SUBLINGUAL Q5M PRN #25 tab 03/25/17 ranolazine 500 mg tablet,extended release,12 hr 500 mg PO BID #180 tab 03/25/17 Pantoprazole Sodium [Protonix] 40 mg PO DAILY 11/23/17 buPROPion SR [Wellbutrin SR (150mg tablets)] 150 mg PO DAILY 11/23/17 albuterol sulfate 90 mcg/actuation aerosol inhaler 2 puff INHALATION Q6H PRN #18 g 01/29/18 Aspirin [Aspirin, Baby] 81 mg PO DAILY@0800 03/30/18 Atorvastatin Calcium 80 mg PO DAILY 09/11/18 DiphenhydrAMINE [Benadryl] 25 mg PO Q6H PRN PRN 09/11/18 Fenofibrate [Tricor] 200 mg PO DAILY 09/11/18 Ipratropium [Atrovent Inhaler] 2 puff INHALATION 4X/DAY 09/11/18 Levalbuterol HCl 1 puff INHALATION 4X/DAY PRN PRN 09/11/18 Metoprolol Tartrate 25 mg PO BID 09/11/18 Isosorbide Mononitrate [Isosorbide Mononitrate ER] 60 mg PO DAILY 02/19/19 Acetaminophen Liquid [Tylenol Liquid] 650 mg PO Q6H PRN PRN udc 03/06/19 Polyethylene Glycol 3350 [Miralax] 17 gm PO DAILY PRN packet 03/06/19 levETIRAcetam tablet [Keppra tablet] 500 mg PO BID tab 03/06/19 Amlodipine Besylate [Norvasc] 5 mg PO DAILY 04/25/19 Quetiapine Fumarate [Seroquel] 100 mg PO QHS 04/25/19 Apixaban [Eliquis] 5 mg PO DAILY #0 04/29/19 Ciprofloxacin [Cipro] 500 mg PO BID #4 tab 04/29/19 Potassium Chloride [K-Dur] 20 meq PO BIDCM 04/29/19 Prednisone 10 mg PO DAILY #30 tab 04/29/19 Tiotropium [place] [Spiriva Respimat] 2 puff INHALATION QDAY 04/29/19 Following Prescrptions Were Given to Patient: Ciprofloxacin [Cipro] 500 mg PO BID #4 tab Transmission Status: Received by [facility]/pharmacy #[id number] Prednisone 10 mg PO DAILY #30 tab Transmission Status: Received by [facility]/pharmacy #[id number] Primary Care Physician: Darleen Craig MD [Primary Care Provider] - Please follow up with your Primary Care Physician in: in 2 weeks Medical Necessity - Tobacco Use Smoking Status: Former smoker Meaningful Use Info Meaningful Use Diagnoses (Choose all that apply): None applicable Code Visit Inpatient E&M: 36880 Disch Hosp
--- NOTE | 2019-04-29 10:51 | PHA.DC.MR ---
Pharmacy Service has performed discharge medication reconciliation for this patient. The patient's discharge medication list was reviewed for discrepancies and discrepancies were resolved. Home Medications Gabapentin [Neurontin] 600 mg PO BID 07/13/14 cycloBENZAPRine HCl [Flexeril] 10 mg PO DAILY 07/13/14 Fluticasone/Vilanterol [Breo Ellipta 200-25 Mcg INH] 1 ea IH DAILY 12/17/16 Paroxetine HCl [Paxil] 40 mg PO DAILY 12/17/16 nitroglycerin 0.4 mg sublingual tablet 0.4 mg SUBLINGUAL Q5M PRN #25 tab 03/25/17 ranolazine 500 mg tablet,extended release,12 hr 500 mg PO BID #180 tab 03/25/17 Pantoprazole Sodium [Protonix] 40 mg PO DAILY 11/23/17 buPROPion SR [Wellbutrin SR (150mg tablets)] 150 mg PO DAILY 11/23/17 tiotropium bromide 2.5 mcg/actuation mist for inhalation 2 puff INHALATION QDAY #1 ea 12/10/17 albuterol sulfate 90 mcg/actuation aerosol inhaler 2 puff INHALATION Q6H PRN #18 g 01/29/18 Aspirin [Aspirin, Baby] 81 mg PO DAILY@0800 03/30/18 Potassium Chloride [K-Dur] 20 meq PO BIDCM #20 tab 04/05/18 Atorvastatin Calcium 80 mg PO DAILY 09/11/18 DiphenhydrAMINE [Benadryl] 25 mg PO Q6H PRN PRN 09/11/18 Fenofibrate [Tricor] 200 mg PO DAILY 09/11/18 Ipratropium [Atrovent Inhaler] 2 puff INHALATION 4X/DAY 09/11/18 Levalbuterol HCl 1 puff INHALATION 4X/DAY PRN PRN 09/11/18 Metoprolol Tartrate 25 mg PO BID 09/11/18 Isosorbide Mononitrate [Isosorbide Mononitrate ER] 60 mg PO DAILY 02/19/19 Acetaminophen Liquid [Tylenol Liquid] 650 mg PO Q6H PRN PRN udc 03/06/19 Polyethylene Glycol 3350 [Miralax] 17 gm PO DAILY PRN packet 03/06/19 levETIRAcetam tablet [Keppra tablet] 500 mg PO BID tab 03/06/19 Amlodipine Besylate [Norvasc] 5 mg PO DAILY 04/25/19 Quetiapine Fumarate [Seroquel] 100 mg PO QHS 04/25/19 Apixaban [Eliquis] 5 mg PO DAILY #0 04/29/19 Ciprofloxacin [Cipro] 500 mg PO BID #4 tab 04/29/19 Prednisone 10 mg PO DAILY #30 tab 04/29/19
--- NOTE | 2019-04-29 12:37 | CASEMGMT ---
Addendum entered by Hailee Ross 04/29/19 13:10: Pt is agreeable and Hospice has a bed in the IPU for pt at this time. Pt will be transported to Hospice IPU by Hospice transportation on the venti mask. Kandi ABRAHAM CM Original Note: Hospice is here to evaluate pt for IPU as pt has increased oxygen need at this time. Kandi ABRAHAM CM
--- NOTE | 2019-04-29 13:25 | NURSING ---
report called to hospice deisy gaytan
== END 2019-04-29 14:25 | disposition hospice, inpatient (51) | DRG 720 ==
LOC: ED 19:59 → ICU 20:05 → PCU 04-27 13:33
PROVIDERS: Internal Medicine; Internal Medicine Critical Care Medicine; Admitting Provider Family Medicine; Emergency Provider Emergency Medicine; PCP Internal Medicine; Visit Provider Internal Medicine
DX: A41.9 Sepsis, unspecified organism (principal); R65.20 Severe sepsis without septic shock; J44.1 Chronic obstructive pulmonary disease with (acute) exacerbation; Z66 Do not resuscitate; Z51.5 Encounter for palliative care; N30.90 Cystitis, unspecified without hematuria; B96.20 Unspecified Escherichia coli [E. coli] as the cause of diseases classified elsewhere; I25.10 Atherosclerotic heart disease of native coronary artery without angina pectoris; I50.22 Chronic systolic (congestive) heart failure; G40.909 Epilepsy, unspecified, not intractable, without status epilepticus; B35.1 Tinea unguium; J96.21 Acute and chronic respiratory failure with hypoxia; J96.22 Acute and chronic respiratory failure with hypercapnia; J06.9 Acute upper respiratory infection, unspecified; B97.89 Other viral agents as the cause of diseases classified elsewhere; G47.33 Obstructive sleep apnea (adult) (pediatric); R13.12 Dysphagia, oropharyngeal phase; F32.9 Major depressive disorder, single episode, unspecified; I13.0 Hypertensive heart and chronic kidney disease with heart failure and stage 1 through stage 4 chronic kidney disease, or unspecified chronic kidney disease; M79.7 Fibromyalgia; K21.9 Gastro-esophageal reflux disease without esophagitis; E78.5 Hyperlipidemia, unspecified; N18.3 Chronic kidney disease, stage 3 (moderate); F41.9 Anxiety disorder, unspecified; I25.2 Old myocardial infarction; Z95.5 Presence of coronary angioplasty implant and graft; Z79.01 Long term (current) use of anticoagulants; Z87.891 Personal history of nicotine dependence; Z99.81 Dependence on supplemental oxygen; Z86.711 Personal history of pulmonary embolism; E78.00 Pure hypercholesterolemia, unspecified; I36.1 Nonrheumatic tricuspid (valve) insufficiency; I34.0 Nonrheumatic mitral (valve) insufficiency
CPT/HCPCS: 36415; 36600; 51702; 71045; 80048; 80053; 81001; 82803; 83605; 83735; 84100; 85025; 85610; 85730; 87040; 87086; 87088; 87186; 87633; 87641; 92526; 92610; 93005; 94002; 94003; 94640; 94660; 97110; 97116; 97162; 97165; 97530; 97535; 97802; 99285; J7030; J7040; A4216; J1940